=== PATIENT | female | born 1945 | race Caucasian/White ===

== ENCOUNTER 2023-10-19 19:49 | Emergency (ER) | payer MEDICARE, SELFPAY ==
[2023-10-19 19:52] VITALS: BP 124/60; PULSE 65; RESP 18; TEMP 37.1; O2SAT 97; BMI 35.2
--- NOTE | 2023-10-19 21:23 | ED_ITS ---
HPI - General Adult General Chief complaint: Extremity Injury, Lower Stated complaint: Left Leg Pain from Fall at home Time Seen by Provider: 10/19/23 20:02 Source: patient Mode of arrival: Wheelchair History of Present Illness HPI narrative: patient states she was using her walker 3/2 to go to the bathroom. Describes backing up to the commode. She sat down too soon and went directly to the floor onto her buttocks. Was able to crawl to her bed and get her self up. Once she was up she was able to walk to another room and sit in a chair. She felt well and decided to read a book. The next day she felt fine. The 3rd day AM she was sore at her left buttocks and neck across her posterior shoulders. Had discomfort getting out of the bed. No headache. Has pain left buttocks area and this increase when walking making it feel like the left leg wants to give. No paresthesia. No headache. Denies chest pain or lower back pain. Past history of surgery with hardware placement lower lumbar spine. No loss of control of bowel or bladder Related Data Home Medications Medication Instructions Recorded Confirmed acarbose 100 mg tablet 100 mg PO BID 10/19/23 10/19/23 amlodipine 10 mg tablet 10 mg PO DAILY 10/19/23 10/19/23 aspirin 81 mg capsule 81 mg PO DAILY 10/19/23 10/19/23 carvedilol 25 mg tablet 25 mg PO BID 10/19/23 10/19/23 dulaglutide 4.5 mg/0.5 mL 4.5 mg subcut .weekly 10/19/23 10/19/23 subcutaneous pen injector (Trulicity) eszopiclone 3 mg tablet 3 mg PO BEDTIME 10/19/23 10/19/23 furosemide 40 mg tablet 40 mg PO DAILY 10/19/23 10/19/23 insulin detemir U-100 100 unit/mL 60 unit subcut DAILY 10/19/23 10/19/23 (3 mL) subcutaneous pen (Levemir FlexPen) liothyronine 25 mcg tablet 25 mcg PO BID 10/19/23 10/19/23 loratadine 10 mg tablet 10 mg PO DAILY PRN allergic 10/19/23 10/19/23 symptoms losartan 100 1 tab PO DAILY 10/19/23 10/19/23 mg-hydrochlorothiazide 25 mg tablet lovastatin 20 mg tablet 20 mg PO DAILY 10/19/23 10/19/23 metformin 1,000 mg tablet 1,000 mg PO BID 10/19/23 10/19/23 omeprazole 20 mg capsule,delayed 20 mg PO DAILY 10/19/23 10/19/23 release potassium chloride 20 mEq 20 meq PO DAILY 10/19/23 10/19/23 tablet,extended release pramipexole 0.5 mg tablet 0.5 mg PO DAILY 10/19/23 10/19/23 quetiapine 50 mg tablet 50 mg PO DAILY 10/19/23 10/19/23 tramadol 50 mg tablet 50 mg PO Q6H PRN pain 10/19/23 10/19/23 Allergies Allergy/AdvReac Type Severity Reaction Status Date / Time iodine Allergy Verified 10/19/23 19:58 levofloxacin [From Levaquin] Allergy Verified 10/19/23 19:58 Review of Systems ROS Status of ROS 10 or more systems reviewed and unremark able except as noted in history and below [facility] Social History Smoking status: Never smoker Exam Constitutional Vital Signs, click to edit/add: Last Vital Signs Temp 98.7 F 10/19/23 19:52 Pulse 65 10/19/23 19:52 Resp 18 10/19/23 19:52 BP 124/60 10/19/23 19:52 Pulse Ox 97 10/19/23 19:52 O2 Del Method Room Air 10/19/23 19:52 Common normals: no apparent distress, average body habitus, oriented x3, healthy appearing, alert and well nourished [facility] Common normals: normocephalic and head/scalp atraumatic Eye Common normals: EOMs intact bilaterally and conjunctivae normal Neck & C-Spine Other: C-spine nontender mild tenderness across bilat superior trapezius Respiratory Common normals: normal respiratory effort, no retractions, no use of accessory muscles and clear to auscultation bilaterally Cardio Common normals: regular rate, regular rhythm, S1 normal heart sound and S2 normal heart sound GI Common normals: Normal to inspection, nondistended, normoactive bowel sounds present, soft to palpation and non-tender Extremity Common normals: normal to inspection and full ROM Other: left buttocks tender Neuro Common normals: oriented x3, CN's II-XII intact bilaterally, moves all extremities, no focal motor deficits and no sensory deficits noted Psych Appearance: grossly normal Course Vital Signs Vital signs: Vital Signs Temperature 98.7 F 10/19/23 19:52 Pulse Rate 65 10/19/23 19:52 Respiratory Rate 18 10/19/23 19:52 Blood Pressure 124/60 10/19/23 19:52 Pulse Oximetry 97 10/19/23 19:52 Oxygen Delivery Method Room Air 10/19/23 19:52 Temperature 98.7 F 10/19/23 19:52 Pulse Rate 65 10/19/23 19:52 Respiratory Rate 18 10/19/23 19:52 Blood Pressure 124/60 10/19/23 19:52 Pulse Oximetry 97 10/19/23 19:52 Oxygen Delivery Method Room Air 10/19/23 19:52 Medical Decision Making MDM Narrative Medical decision making narrative: patient fell 4 days ago. She missed the commode and struck the floor falling on his buttocks. No pain for a couple of days. Pain at the base of her neck and shoulders developed a couple of days ago and left buttocks pain. No weakness or paresthesia. diagnostic studies neg. Patient medicated with norflex and discharged home to follow up with her family doctor for recheck Lab Data Labs: Lab Results 10/19/23 Range/Units 21:45 WBC 12.9 H (4.0-11.0) 10^3/uL RBC 3.67 L (4.20-5.40) 10^6/uL Hgb 10.8 L (12.0-16.0) g/dL Hct 33.8 L (36.0-48.0) % MCV 92.1 (81.0-99.0) fL MCH 29.4 (26.7-34.0) pg MCHC 32.0 (29.9-35.2) g/dL RDW 13.4 (11.0-15.0) % Plt Count 264 (150-450) 10^3/uL MPV 10.4 (9.5-13.5) fL Neut % (Auto) 75.5 H (43.0-75.0) % Lymph % (Auto) 12.8 L (20.5-60.0) % Treasure % (Auto) 8.4 (1.7-12.0) % Eos % (Auto) 2.7 (0.9-7.0) % Baso % (Auto) 0.4 (0.2-2.0) % Neut # (Auto) 9.8 H (1.4-6.5) 10^3/uL Lymph # (Auto) 1.7 (1.2-3.8) 10^3/uL Treasure # (Auto) 1.1 H (0.3-0.8) 10^3/uL Eos # (Auto) 0.4 (0.0-0.7) 10^3/uL Baso # (Auto) 0.1 (0.0-0.1) 10^3/uL Abs Immat Gran (auto) 0.03 (0.00-0.03) 10^3/uL Imm/Tot Granulo (auto) 0.2 (0.0-0.5) % Sodium 138 (136-145) mmol/L Potassium 3.5 (3.5-5.1) mmol/L Chloride 101 (98-107) mmol/L Carbon Dioxide 32.0 (21.0-32.0) mmol/L Anion Gap 8.5 BUN 17.0 (7.0-18.0) mg/dL Creatinine 0.93 (0.55-1.02) mg/dL Est GFR ( Amer) >60 (>=60) Est GFR (Non-Af Amer) 58 L (>=60) BUN/Creatinine Ratio 18.3 Glucose 147 H (74-106) mg/dL Calcium 9.4 (8.5-10.1) mg/dL Imaging Data Abdominal x-ray: Radiologist's impression: ITS Impressions Cervical Spine CT 10/19/23 21:30 IMPRESSION: No acute traumatic findings of the cervical spine. Electronically authenticated by: THIAGO KAM Date: 10/19/2023 22:[address] 10/19/23 21:30 IMPRESSION: 1. No acute fracture. 2. No acute joint findings. 3. Chronic bone fragments around the knee. 4. 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 Electronically authenticated by: JUDITH BAZZI Date: 10/19/2023 23:[address] 10/19/23 21:30 IMPRESSION: No CT evidence of acute intracranial abnormality. Mild chronic microvascular ischemia and involutional changes. Vascular calcifications. Electronically authenticated by: JAYDA UNLU Date: 10/19/2023 22:[address] 10/19/23 21:30 IMPRESSION: 1. No acute pelvic abnormalities. 2. No acute left hip abnormalities. Electronically authenticated by: BERTHA COLIN Date: 10/19/2023 22:[address] 10/19/23 21:30 IMPRESSION: 1. No acute pelvic abnormalities. 2. No acute left hip abnormalities. Electronically authenticated by: BERTHA COLIN Date: 10/19/2023 22:47 Discharge Plan Discharge Chief Complaint: Extremity Injury, Lower Clinical Impression: Contusion of left buttock, Cervical myofascial strain Patient Disposition: Home, Self-Care Prescriptions / Home Meds: No Action acarbose 100 mg tablet 100 mg PO BID amlodipine 10 mg tablet 10 mg PO DAILY carvedilol 25 mg tablet 25 mg PO BID Trulicity 4.5 mg/0.5 mL pen injector 4.5 mg SUBCUT .weekly eszopiclone 3 mg tablet 3 mg PO BEDTIME furosemide 40 mg tablet 40 mg PO DAILY liothyronine 25 mcg tablet 25 mcg PO BID loratadine 10 mg tablet 10 mg PO DAILY PRN (Reason: allergic symptoms) losartan-hydrochlorothiazide 100-25 mg tablet 1 tab PO DAILY lovastatin 20 mg tablet 20 mg PO DAILY metformin 1,000 mg tablet 1,000 mg PO BID omeprazole 20 mg capsule,delayed release(DR/EC) 20 mg PO DAILY potassium chloride 20 mEq tablet extended release 20 meq PO DAILY pramipexole 0.5 mg tablet 0.5 mg PO DAILY quetiapine 50 mg tablet 50 mg PO DAILY tramadol 50 mg tablet 50 mg PO Q6H PRN (Reason: pain) aspirin 81 mg capsule 81 mg PO DAILY Levemir FlexPen 100 unit/mL (3 mL) insulin pen 60 unit subcut DAILY Instructions: Cervical Strain (ED), Contusion in Adults (ED) Additional Instructions: follow up with family doctor in 2-3 days Referrals: BELEN ZALDIVAR [Primary Care Provider] - 1 week Stand Alone Forms: Portal Instructions
--- NOTE | 2023-10-19 21:30 | CT_ITS ---
The [address] [address] Patient Name: KONRAD GUZMAN MRN: [id number] date: 1945 Sex: F Assigned Patient Location: ER Current Patient Location: ER Accession/Order Number: [id number] Exam Date: 10/19/2023 22:21 Report Date: 10/19/2023 23:33 At the request of: ALINA SESAY Procedure: CT femur LT wo con EXAM: CT femur LT wo con HISTORY: Fall with left hip pain. COMPARISON: Left tib-fib x-ray 10/20/2020; CT pelvis 01/06/2022. TECHNIQUE: Contiguous thin section axial scans obtained from the lower right iliac bone above the left hip joint throughout the left hip joint, left femur and knee joints to the proximal tib-fib metadiaphyseal region. This CT exam was performed using one or more of the following dose reduction techniques: Automated exposure control, adjustment of the mA and/or kV according to patient size, or use of iterative reconstruction technique. Thin section coronal and sagittal images were reconstructed from the axial data set. All images were reviewed and interpreted. FINDINGS: No acute fractures are seen along the course of the left femur from hip to knee. No lytic or blastic lesion. Normal bone mineralization. There is some minor age-related left hip joint degenerative narrowing. There appears to be a high riding patella (patella darien). There is associated asymmetric moderate to severe lateral patellofemoral joint narrowing and widening of the medial patellofemoral compartment. No elizabeth dislocation. The medial compartment and lateral compartments are otherwise maintained. There are several chronic corticated bone fragments in the soft tissues superficial to the lateral patellofemoral ligament and anterior lateral soft tissues the left knee. Small punctate 2 mm chronic bone fragment superficial to the medial patellar body and superficial to the medial patellofemoral ligament origin as well. These are chronic. Suspect from old trauma. No destructive bone process. Muscles and soft tissues external to the joints along the course of the left femur are otherwise normal. CT/CT femur LT wo con IMPRESSION: 1. No acute fracture. 2. No acute joint findings. 3. Chronic bone fragments around the knee. 4. 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 Electronically authenticated by: JUDITH BAZZI Date: 10/19/2023 23:33
--- NOTE | 2023-10-19 21:30 | CT_ITS ---
The [address] [address] Patient Name: KONRAD GUZMAN MRN: [facility]:[id number] date: 1945 Sex: F Assigned Patient Location: ER Current Patient Location: ER Accession/Order Number: [id number] Exam Date: 10/19/2023 22:07 Report Date: 10/19/2023 22:25 At the request of: ALINA SESAY Procedure: CT head/brain wo con EXAM: CT head/brain wo con HISTORY: fall COMPARISON: None. TECHNIQUE: Axial CT scans through the head were obtained without IV contrast administration. Dose reduction techniques were achieved by using: automated exposure control and/or adjustment of mA and /or kV according to patient size and/or use of iterative reconstruction technique. FINDINGS: There is no evidence of acute intracranial hemorrhage or abnormal extra-axial fluid collection. No mass effect or midline shift is seen. There is no evidence of large acute territorial infarction. There is no hydrocephalus. Mild enlarged cortical sulci, consistent with age appropriate cerebral atrophy. Patchy areas of low-attenuation are present in supratentorial white matter, likely represents chronic microvascular ischemia. To the limit of CT, the posterior fossa appears unremarkable. There are atherosclerotic calcifications of anterior and posterior circulations. No definite acute fracture is identified. No discrete soft tissue abnormality seen. The visualized orbits show no abnormality. The visualized paranasal sinuses show no air-fluid level. Mastoid air cells are clear. CT/CT head/brain wo con IMPRESSION: No CT evidence of acute intracranial abnormality. Mild chronic microvascular ischemia and involutional changes. Vascular calcifications. Electronically authenticated by: JAYDA GARCIAU Date: 10/19/2023 22:25
--- NOTE | 2023-10-19 21:30 | CT_ITS ---
The [address] [address] Patient Name: KONRAD GUZMAN MRN: [id number] date: 1945 Sex: F Assigned Patient Location: ER Current Patient Location: ER Accession/Order Number: [id number] Exam Date: 10/19/2023 22:11 Report Date: 10/19/2023 22:47 At the request of: ALINA SESAY Procedure: CT pelvis wo con EXAM: CT scan of the pelvis without contrast. CT scan of the left hip without contrast. Dose reduction technique used: Automated exposure control and/or adjustment of the mA and/or kV according to patient size and/or use of iterative reconstruction technique. REASON FOR EXAM: fall COMPARISON: CT scan dated 01/06/2022 FINDINGS: PELVIS: No pelvic fractures, subluxations or dislocations. No pelvic hematoma. No free fluid in the pelvis. Prominent bilateral sacroiliac joint degenerative change. Pubic symphysis degenerative change. Hysterectomy. Partially visualized lumbar spinal fusion hardware. LEFT HIP: No fractures, subluxations or dislocations. Mild to moderate left hip degenerative change. Remainder unremarkable. CT/CT pelvis wo con IMPRESSION: 1. No acute pelvic abnormalities. 2. No acute left hip abnormalities. Electronically authenticated by: BERTHA COLIN Date: 10/19/2023 22:47
--- NOTE | 2023-10-19 21:30 | CT_ITS ---
[address] [address] Patient Name: KONRAD GUZMAN MRN: [id number] date: 1945 Sex: F Assigned Patient Location: ER Current Patient Location: ER Accession/Order Number: [id number] Exam Date: 10/19/2023 22:18 Report Date: 10/19/2023 22:47 At the request of: ALINA SESAY Procedure: CT hip LT wo con EXAM: CT scan of the pelvis without contrast. CT scan of the left hip without contrast. Dose reduction technique used: Automated exposure control and/or adjustment of the mA and/or kV according to patient size and/or use of iterative reconstruction technique. REASON FOR EXAM: fall COMPARISON: CT scan dated 01/06/2022 FINDINGS: PELVIS: No pelvic fractures, subluxations or dislocations. No pelvic hematoma. No free fluid in the pelvis. Prominent bilateral sacroiliac joint degenerative change. Pubic symphysis degenerative change. Hysterectomy. Partially visualized lumbar spinal fusion hardware. LEFT HIP: No fractures, subluxations or dislocations. Mild to moderate left hip degenerative change. Remainder unremarkable. CT/CT hip LT wo con IMPRESSION: 1. No acute pelvic abnormalities. 2. No acute left hip abnormalities. Electronically authenticated by: BERTHA COLIN Date: 10/19/2023 22:47
--- NOTE | 2023-10-19 21:30 | CT_ITS ---
The [address] [address] Patient Name: KONRAD GUZMAN MRN: [id number] date: 1945 Sex: F Assigned Patient Location: ER Current Patient Location: ER Accession/Order Number: [id number] Exam Date: 10/19/2023 22:11 Report Date: 10/19/2023 22:27 At the request of: ALINA SESAY Procedure: CT cervical spine wo con EXAM: CT cervical spine wo con HISTORY: fall COMPARISON: None. TECHNIQUE: CT cervical spine without contrast. Multiplanar reformats obtained. The current study utilizes one or more of the following dose-reduction techniques: automated exposure control, iterative reconstruction, and/or manual adjustment of tube current and voltage for size. FINDINGS: Age expected degenerative changes. Bones are demineralized. No evidence of acute fracture or traumatic malalignment. No prevertebral edema. Spinal canal is grossly patent. Neural foramen grossly patent. CT/CT cervical spine wo con IMPRESSION: No acute traumatic findings of the cervical spine. Electronically authenticated by: THIAGO KAM Date: 10/19/2023 22:27
[2023-10-19 21:56] LABS: Basophils Absolute Auto 0.1 10^3/uL (0.0-0.1); Basophils Percent Auto 0.4 % (0.2-2.0); Eosinophils Absolute Auto 0.4 10^3/uL (0.0-0.7); Eosinophils Percent Auto 2.7 % (0.9-7.0); Hematocrit 33.8 % (36.0-48.0); Hemoglobin 10.8 g/dL (12.0-16.0); Immature Granulocytes Abs Auto 0.03 10^3/uL (0.00-0.03); Immature Granulocytes Pct Auto 0.2 % (0.0-0.5); Lymphocytes Absolute Auto 1.7 10^3/uL (1.2-3.8); Lymphocytes Percent Auto 12.8 % (20.5-60.0); Mean Corpuscular Hemoglobin 29.4 pg (26.7-34.0); Mean Corpuscular Volume 92.1 fL (81.0-99.0); Mean Platelet Volume 10.4 fL (9.5-13.5); Monocytes Absolute Auto 1.1 10^3/uL (0.3-0.8); Monocytes Percent Auto 8.4 % (1.7-12.0); Neutrophils Absolute Auto 9.8 10^3/uL (1.4-6.5); Neutrophils Percent Auto 75.5 % (43.0-75.0); Platelet Count 264 10^3/uL (150-450); Red Blood Count 3.67 10^6/uL (4.20-5.40); Red Cell Distribution Width 13.4 % (11.0-15.0); White Blood Count 12.9 10^3/uL (4.0-11.0)
[2023-10-19 22:08] LABS: Anion Gap 8.5; BUN Creatinine Ratio 18.3; Calcium 9.4 mg/dL (8.5-10.1); Chloride 101 mmol/L (98-107); Estimated GFR (African America >60 (>=60); Estimated GFR (Non-African Ame 58 (>=60); Glucose 147 mg/dL (74-106); Potassium 3.5 mmol/L (3.5-5.1); Sodium 138 mmol/L (136-145)
[2023-10-20] MEDS: ORPHENADRINE CITRATE 100 MG TABLET.ER PO (00:25)
== END 2023-10-20 00:33 | disposition home or self-care (01) ==
PROVIDERS: Emergency Provider Internal Medicine; PCP Internal Medicine
DX: S30.0XXA Contusion of lower back and pelvis, initial encounter (principal); S16.1XXA Strain of muscle, fascia and tendon at neck level, initial encounter; W18.39XA Other fall on same level, initial encounter; Z79.82 Long term (current) use of aspirin; Z79.4 Long term (current) use of insulin; Z79.84 Long term (current) use of oral hypoglycemic drugs; Z79.899 Other long term (current) drug therapy; Z79.85 Long-term (current) use of injectable non-insulin antidiabetic drugs
CPT/HCPCS: 36415; 70450; 72125; 72192; 73700; 80048; 85025; 99284

== ENCOUNTER 2024-05-10 12:24 | Outpatient (OUT) | payer MEDICARE, SELFPAY ==
--- OUTSIDE RECORDS SUMMARY | 2024-05-10 12:38 | XMS_ITS | CCD ---
Author Organization [facility] Care Team Providers Care Ring Conductor Name Role Phone Olamide Ching Unavailable MD Abdullahi Acosta Attending Provider MONI Bowers Primary Care Provider [phone] Abdullahi Acosta Unavailable NADIYA GILLESPIE Consulting Unavailable VERNA, NADIYA Attending Unavailable BOWERS, DR GLOVER Primary Care Unavailable VERNA, NADIYA Admitting Unavailable BOWERS, DR GLOVER Primary Care Unavailable GARCIA ., DR SERENITY Barahona Consulting Unavailable GARCIA ., DR SERENITY Barahona Attending Unavailable GARCIA ., DR SERENITY Barahona Admitting Unavailable MISC, DR MURDOCK Admitting Unavailable MISC, DR MURDOCK Consulting Unavailable BOWERS, DR GLOVER Primary Care Unavailable MISC, DR MURDOCK Attending Unavailable VERNA, NADIYA Attending Unavailable VERNA, NADIYA Consulting Unavailable BOWERS, DR GLOVER Primary Care Unavailable VERNA, NADIYA Admitting Unavailable BOWERS, DR GLOVER Primary Care Unavailable BOWERS, DR GLOVER Consulting Unavailable BOWERS, DR GLOVER Attending Unavailable BOWERS, DR GLOVER Admitting Unavailable ZIEBER, DR JOE Car Consulting Unavailable ALGHOTHANI, MOHAMAD Admitting Unavailable ALGHOTHANI, MOHAMAD Attending Unavailable BOWERS, DR GLOVER Primary Care Unavailable ALGHOTHANI, MOHAMAD Admitting Unavailable ALGHOTHANI, MOHAMAD Consulting Unavailable KAYLEY, DR GLOVER Primary Care Unavailable ALGHOTHANI, MOHAMAD Attending Unavailable BETZAIDA GUY Attending Unavailable MESHA .BETZAIDA Admitting Unavailable KAYLEY, DR GLOVER Primary Care Unavailable LAKSHMIPATHY ., NARENDRANATH Admitting Rain vailable LAKSHMIPATHY ., DAVID Attending Rain vailable KAYLEY, DR GLOVER Primary Care Unavailable GARCIA ., DR SERENITY Barahona Attending Unavailable GARCIA ., DR SERENITY Barahona Admitting Unavailable BOWERS, DR GLOVER Primary Care Unavailable ZIMMER ., BETZAIDA Consulting Unavailable ZIMMER ., BETZAIDA Consulting Unavailable GARCIA ., DR SERENITY Barahona Attending Unavailable GARCIA ., DR SERENITY Barahona Admitting Unavailable BOWERS, DR GLOVER Primary Care Unavailable GARCIA ., DR SERENITY Barahona Attending Unavailable GARCIA ., DR SERENITY Barahona Admitting Unavailable BOWERS, DR GLOVER Primary Care Unavailable ZIMMER ., BETZAIDA Consulting Unavailable GARCIA ., DR SERENITY Barahona Attending Unavailable GARCIA ., DR SERENITY Barahona Admitting Unavailable BOWERS, DR GLOVER Primary Care Unavailable ZIMMER ., BETZAIDA Consulting Unavailable GARCIA ., DR SERENITY Barahona Attending Unavailable GARCIA ., DR SERENITY Barahona Consulting Unavailable GARCIA ., DR SERENITY Barahona Admitting Unavailable BOWERS, DR GLOVER Primary Care Unavailable USHA LOZA Consulting Unavailable JOE BERKOWITZ Unavailable YAZ, DR JOE Car Consulting Unavailable SHUBHAM STEVE Admitting Unavailable BOWERS, DR GLOVER Primary Care Unavailable SHUBHAM STEVE Attending Unavailable SHUBHAM STEVE Consulting Unavailable JOSE, DR ESTES Admitting Unavailable NADIYA GILLESPIE Consulting Unavailable BOWERS, DR GLOVER Primary Care Unavailable JOSE, DR ESTES Attending Unavailable BOWERS, DR GLOVER Consulting Unavailable GARCIA ., DR SERENITY Barahona Attending Unavailable GARCIA ., DR SERENITY Barahona Admitting Unavailable BOWERS, DR GLOVER Primary Care Unavailable ZIEBER, DR JOE Car Consulting Unavailable GARCIA ., DR SERENITY Barahona Consulting Unavailable KAYLEY, DR GLOVER Primary Care Unavailable GARCIA ., DR SERENITY Barahona Attending Unavailable GARCIA ., DR SERENITY Barahona Admitting Unavailable LIZA, DR PATITO Vega Consulting Unavailable GARCIA ., DR SERENITY Barahona Consulting Unavailable URI CARLSON Attending Unavailable VERNA, NADIYA Attending Unavailable VERNA, NADIYA Attending Unavailable ERIKA DEL TORO Attending Unavailable ERIKA DEL TORO Attending Unavailable MONI Bowers Primary Care Provider MD Abdullahi Acosta Attending Provider Abdullahi Acosta Attending Unavailable Abdullahi Acosta Admtony Unavailable Kofi Bowers Primary Care Unavailable Kofi Bowers MD Primary Care Provider KOFI BOWERS Primary Care Unavailable SHUBHAM GANN Attending Unavailable KOFI BOWERS Attending Unavailable GHAZAL GRIFFIN Attending Unavailable KOFI BOWERS Referring Unavailable KEN GALEANA Attending Unavailable KOFI BOWERS Referring Unavailable TEENA CHRISTENSENH Attending Unavailable KOFI BOWERS Referring Unavailable TATTERSGURU, KEN Attending Unavailable KOFI BOWERS Referring Unavailable TATTERSGURU, KEN Attending Unavailable KOFI BOWERS B Referring Unavailable TATTERSGURU, KEN Attending Unavailable KOFI BOWERS B Referring Unavailable TATTERSGURU, KEN Attending Unavailable KAYLEY KOFI B Referring Unavailable TATTERSGURU, KEN Attending Unavailable KAYLEY KOFI B Referring Unavailable ABEL GOODE Attending Unavailable ABEL GOODE Attending Unavailable KOFI BOWERS B Attending Unavailable Allergies Allergy Classification Reported Allergen(s) Allergy Type Date of Onset Reaction(s) Facility (3 sources) Gemfibrozil Drug Allergy muscle atrophy [facility] Other (6 sources) Iodine; Translations: [IODINE] Drug Allergy 11-24-19 19 anaphylaxis, Shortness of breath [facility] Repository (5 sources) levoFLOXacin; Translations: [Levaquin] Drug Allergy 11-17-19 16 tendonopathy [facility] Repository (6 sources) levoFLOXacin; Translations: [LEVOFLOXACIN] Drug Allergy 06-15-20 18 Other [facility] (1 source) Iodine and Iodide Containing Produc Allergy to substance 06-13-20 18 Unknown Reaction [facility] (2 sources) hydrALAZINE Drug Allergy 11-18-19 16 [facility] Repository (1 source) Iodine Drug Allergy 07-31-20 15 [facility] Repository (2 sources) pregabalin; Translations: [PREGABALIN] Drug Allergy 02-25-20 21 Dizziness [facility] Repository (1 source) SHELLFISH CONTAINING PRODUCTS; Translations: [SHELLFISH CONTAINING PRODUCTS] Propensity to adverse reactions to drug (disorder) 01-25-20 14 [facility] Repository (2 sources) Iodinated Contrast Media; Translations: [Iodinated Contrast Media] Allergy to substance 08-19-19 23 Unknown Reaction [facility] (1 source) Gemfibrozil Drug Allergy 06-27-20 23 [facility] Repository (1 source) Iodine Drug Allergy 06-27-20 23 [facility] Repository (1 source) Shellfish Allergy to substance 01-25-20 14 Swelling [facility] Work Phone: Medications Current Medications Medication Drug Class(es) Dates Sig (Normalized) Sig (Original) acarbose 100 mg oral tablet (6 sources) alpha-Glucosidas e Inhibitor Start: 02-02-2023 take 1 tablet by mouth in the morning acarbose (Precose) 100 MG tablet Indications: 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 200 tablet 3 02/02/2023 Active Start: 06-13-2018 take 1 tablet by javi th twice daily Acarbose Active 1 TAB PO Twice daily June 12, 2018 11:00pm acetaminophen 500 mg oral ta blet (4 sources) acetaminophen (T ylenol) 500 MG tablet every 6 (six) hours. 0 Active Tylenol Active albuterol 0.83 mg/ml inhalation solution (3 sources) beta2-Adrenergic Agonist Albuter ol Sulfate (2.5 MG/3ML) 0.083% 1 unit dose Inhalation four times a day DX J44.9 COPD Active amitriptyline hydrochloride 25 mg oral tablet (2 sources) Tricyclic Antidepressant Start: 06-28-2022 take 1 tablet by mouth every twenty-four hours Amitriptyline HCl 25 MG 1 tablet at bedtime Orally Once a day for 30 day(s) Jun, Active amLODIPine 10 mg oral tablet (6 sources) Dihydropyridine Calcium Channel Theodora Start: 07-20-2023 take 1 tablet by mouth in the morning amLODIPine (Norvasc) 10 MG tablet Indications: Benign essential hypertension (CMS/HCC) Take 1 tablet (10 mg) by mouth in the morning. 100 tablet 3 07/20/2023 Active Start: 06-13-2018 take 1 tablet by javi th once daily Amlodipine Active 1 TAB PO Daily June 12, 2018 11:00pm ascorbic acid 100 mg/ml oral solution (1 source) Vitamin C Ascorbic Acid (Vitamin C) 500 MG/5ML liquid 1 capsule 1 (one) time each day at the same time. 0 Active aspirin 81 mg delayed release oral tablet (4 sources) Platelet Aggregation Inhibitor, Nonsteroidal Anti-inflammatory Drug Start: 2018 aspirin 81 MG EC tablet 1 (one) time each day at the same time. 0 2018 Active Baby Aspirin Act yair biotin 5 mg sublingual tablet (2 sources) Start: 06-13-2018 take 1 capsule under the tongue once daily Biotin Active 1 CAP SUBLINGUAL Daily June 12, 2018 11:00pm calcium citrate 250 mg / cholecalciferol 100 unt oral tablet (1 source) Vitamin D take 1 tablet by mouth once in the morning, then take 1 tablet by mouth once in the evening Calcium Citrate-Vitamin D (Vishnu-Citrate Plus Vitamin D) 250-2.5 MG-MCG tablet Take 1 tablet by mouth in the morning and 1 tablet in the evening. 0 Active Calcium Citrate Plus (3 sources) Calcium Citrate Plus as directed Orally bid Active carvedilol 25 mg oral tablet (1 source) alpha-Adrenergic Theodora, beta-Adrenergic Theodora Start: 02-22-2023 take 1 tablet by mouth in the morning carvedilol (Coreg) 25 MG tablet Indications: Benign essential hypertension (CMS/HCC) Take 1 tablet (25 mg) by mouth in the morning and 1 tablet (25 mg) in the evening. Take with meals. 180 tablet 3 02/22/2023 Active cetirizine hydrochloride 10 mg oral tablet (1 source) Histamine-1 Receptor Antagonist cetirizine (ZyrTEC) 10 MG tablet 1 (one) time each day at the same time. 0 Active cholecalciferol 1.25 mg oral tablet (1 source) Vitamin D cholecalciferol (Vitamin D-3) 1.25 MG (37391 UT) tablet Vitamin D3 5000IU 0 Active cloNIDine hydrochloride 0.1 mg oral tablet (2 sources) Central alpha-2 Adrenergic Agonist Start: 06-13-2018 take 1 tablet by mouth twice daily Clonidine Hcl Active 1 TAB PO Twice daily June 12, 2018 11:00pm 0.5 ml dulaglutide 3 mg/ml auto-injector (3 sources) GLP-1 Receptor Agonist Trulicity 1.5 MG/0.5ML as directed Subcutaneous As Directed Active DULoxetine 60 mg delayed release oral capsule (5 sources) Serotonin and Norepinephrine Reuptake Inhibitor Start: 06-13-2018 Duloxetine Active June 12, 2018 11:00pm furosemide 40 mg oral tablet (6 sources) Loop Diuretic Start: 06-13-2018 take 1 tablet by mouth in the morning furosemide (Lasix) 40 MG tablet Indications: Benign essential hypertension (CMS/HCC) Take 1 tablet (40 mg) by mouth in the morning. 100 tablet 3 02/02/2023 Active hydrALAZINE hydrochloride 50 mg oral tablet (1 source) Arteriolar Vasodilator hydrALAZINE (Apresoline) 50 MG tablet every 12 (twelve) hours. 0 Active hydroCHLOROthiazide 25 mg / losartan potassium 100 mg oral tablet (1 source) Thiazide Diuretic, Angiotensin 2 Receptor Theodora Start: 04-26-2023 take 1 tablet by mouth once daily losartan-hydroCHLO ROthiazide (Hyzaar) 100-25 MG tablet Indications: Hypertension, unspecified type (CMS/HCC) Take 1 tablet by mouth 1 (one) time each day at the same time. 100 tablet 2 04/26/2023 Active 3 ml insulin detemir 100 unt/ml pen injector (3 sources) Insulin Analog Start: 06-13-2018 Insulin Detemir U-100 Active 0 .ROUTE .COMPLEX June 12, 2018 11:00pm as directed insulin detemir (Levemir FlexTouch) 100 UNIT/ML pen INJECT 60 UNITS SUBCUTANEOUSLY EACH MORNING for 25 0 Active liothyronine sodium 0.025 mg oral tablet (6 sources) l-Triiodothyronine Start: 04-26-2023 take 0.5 tablet by mouth twice daily liothyronine (Cytomel) 25 MCG tablet Indications: Hypothyroidism, unspecified type (CMS/HCC) 0.5 tablet on an empty stomach Orally two times daily. D.A.W. as Sigma or Finsphere Brand ONLY for 90 days 200 tablet 3 04/26/2023 Active Start: 06-13-2018 take 0.5 tablet by m outh once daily Liothyronine Active 0.5 TAB PO Daily June 12, 2018 11:00pm Liothyronine Sod ium 25 MCG as directed Orally bid Active loratadine 10 mg oral tablet (6 sources) Start: 03-11-2023 End: 03-10-2024 take 1 tablet by mouth in the morning loratadine (Claritin) 10 MG tablet Indications: Allergy, initial encounter Take 1 tablet (10 mg) by mouth in the morning. 30 tablet 11 03/11/2023 03/10/2024 Active Start: 06-13-2018 take 1 tablet by javi th once daily Loratadine Active 1 TAB PO Daily June 12, 2018 11:00pm take 1 tablet by javi th once daily Loratadine 10 MG 1 tablet on the tongue and allow to dissolve Orally Once a day for 30 day(s) Active losartan potassium 100 mg oral tablet (5 sources) Angiotensin 2 Receptor Theodora Start: 06-13-2018 take 1 tablet by mouth once daily Losartan Active 1 TAB PO Daily June 12, 2018 11:00pm lovastatin 20 mg oral tablet (6 sources) HMG-CoA Reductase Inhibitor Start: 09-21-2023 take 1 tablet by mouth once daily lovastatin (Mevacor) 20 MG tablet Indications: Congenital renal artery anomaly TAKE 1 TABLET BY MOUTH ONCE DAILY 30 tablet 10 09/21/2023 Active Start: 06-13-2018 take 1 tablet by javi once daily Lovastatin Active 1 TAB PO Daily June 12, 2018 11:00pm melatonin 5 mg oral capsule (5 sources) Start: 06-13-2018 Melatonin Acti ve June 12, 2018 11:00pm Melatonin 5 MG O rally qhs Active metFORMIN hydrochloride 1000 mg oral tablet (6 sources) Biguanide Start: 06-13-2018 take 1 tablet by mouth in the morning metFORMIN (Glucophage) 1000 MG tablet Indications: 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 Take with meals. 200 tablet 3 02/02/2023 Active 24 hr metoprolol succinate 50 mg extended release oral tablet (8 sources) beta-Adrenergic Theodora Start: 06-13-2018 take 1 tablet by mouth twice daily Metoprolol Succinate Active 1 TAB PO Twice daily June 12, 2018 11:00pm take 2 tablets by [facility] every twenty-four hours Toprol XL 50 MG 2 tablet Orally Once a day Active Metoprolol Succi florencio Active take 2 tablets by [facility] every twenty-four hours Multivitamin preparation (3 sources) Multivitamin Act yair naproxen 500 mg oral tablet (1 source) Nonsteroidal Anti-inflammatory Drug naproxen (Naprosy n) 500 MG tablet every 12 (twelve) hours. 0 Active omeprazole 20 mg delayed release oral capsule (6 sources) Proton Pump Inhibitor Start: 023 take 1 capsule by mouth in the morning omeprazole (PriLOSEC) [address] capsule Indications: Gastroesophageal reflux disease without esophagitis Take 1 capsule (20 mg) by mouth in the morning. 100 capsule 3 02/02/2023 Active Start: 06-13-2018 take 1 tablet by javi th once daily Omeprazole Active 1 TAB PO Daily June 12, 2018 11:00pm take 1 capsule by mo [facility] once daily PriLOSEC 20 MG 1 capsule Orally Once a day for 30 day(s) Active take 1 capsule by [facility] every twenty-four hours microencapsulated potassium chloride 20 meq extended release oral tablet (6 sources) Start: 06-13-2018 Potassium Chloride Active 1 PACKET PO Daily June 12, 2018 11:00pm pramipexole dihydrochloride 0.75 mg oral tablet (1 source) Nonergot Dopamine Agonist Start: 07-20-2023 take 1 tablet by mouth in the morning pramipexole (Mirapex) 0.75 MG tablet Indications: Chronic pain syndrome Take 1 tablet (0.75 mg) by mouth in the morning. 30 tablet 2 07/20/2023 Active pregabalin 100 mg oral capsule (5 sources) Start: 06-13-2018 take 1 tablet by mouth twice daily Pregabalin Active 1 TAB PO Twice daily June 12, 2018 11:00pm QUEtiapine 50 mg oral tablet (8 sources) Atypical Antipsychotic Start: 06-13-2018 take 1 tablet by mouth at bedtime Quetiapine Active 1 TAB PO Bedtime June 12, 2018 11:00pm traMADol hydrochloride 50 mg oral tablet (7 sources) Opioid Agonist Start: 09-29-2023 take 1 tablet by mouth every six hours for pain traMADol (Ultram) 50 MG tablet Indications: Failed back syndrome Take 1 tablet (50 mg) by mouth every 6 (six) hours if needed for severe pain 120 tablet 0 09/29/2023 Active Start: 08-29-2023 End: 09-29-2023 take 1 tablet by mouth every six hours for pain traMADol (Ultram) 50 MG tablet Indications: Failed back syndrome Take 1 tablet (50 mg) by mouth every 6 (six) hours if needed for severe pain 120 tablet 0 08/29/2023 09/29/2023 Discontinued (Reorder) Start: 06-13-2018 take 1 tablet by javi th every six hours Tramadol Active 1 TAB PO Q6H June 12, 2018 11:00pm take 1 tablet by javi th every twenty-four hours traMADol HCl 50 MG 1 tablet as needed Orally Once a day Active Trulicity 4.5 MG/0.5ML solut ion pen-injector (1 source) Start: 08-23-2023 Trulicity 4.5 MG/0.5ML solution pen-injector Indications: 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 0 Active Vitamin E 400 UNIT (3 sources) take 1 capsule by mo [facility] once daily Vitamin E 400 UNIT 1 capsule Orally Once a day Active zolpidem tartrate 6.25 mg extended release oral tablet (1 source) gamma-Aminobutyric Acid-ergic Agonist Start: 08-04-2023 zolpidem CR (Ambien CR) 6.25 MG ER tablet Indications: Primary insomnia Take 1 tablet (6.25 mg) by mouth as needed at bedtime for sleep Do not crush, chew, or split. 30 tablet 2 08/04/2023 Active Completed/Discontinued Medications Medication Drug Class(es) Dates Sig (Normalized) Sig (Original) cefTRIAXone (4 sources) Cephalosporin Antibacterial Start: 02-21-2019 Rocephin 500 mg Feb, 1000 mg Start: 07-18-2014 Rocephin 500 m g Jul, 1 grm Problems Active Problems Problem Classification Problem Date Documented Da te Episodic/Chronic Cardiac and circulatory congenital anomalies (1 source) Congenital anomaly of renal blood vessel; 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] Onset: 11-25-2015 12-14-2022 Chronic Diabetes mellitus with complications (4 sources) Disorder of nervous system due to type 2 diabetes mellitus; Translations: [Type 2 diabetes mellitus with other diabetic neurological complication] Onset: 08-15-2014 12-14-2022 Chronic Diabetes mellitus without complication (2 sources) Type 2 diabetes mellitus without complications; Translations: [Diabetes mellitus] Onset: 01-24-2014 03-11-2023 Chronic Disorders of lipid metabolism (2 sources) Hyperlipidemia, unspecified; Translations: [Mixed hyperlipidemia] Onset: 01-07-2022 12-14-2022 Chronic Esophageal disorders (2 sources) Gastro-esophageal reflux disease without esophagitis; Translations: [Gastroesophageal reflux disease] Onset: 01-07-2022 12-14-2022 Chronic Essential hypertension (8 sources) Essential (primary) hypertension; Translations: [Benign essential hypertension] Onset: 01-07-2022 Chronic Malaise and fatigue (1 source) Fatigue; Translations: [Chronic fatigue, unspecified] Onset: 12-14-2022 12-14-2022 Chronic Menopausal disorders (5 sources) Other primary ovarian failure; Translations: [Decreased estrogen level] Onset: 01-04-2022 Chronic Miscellaneous mental health disorders (4 sources) Chronic insomnia; Translations: [Psychophysiologic insomnia] Chronic Other diseases of veins and lymphatics (1 source) Venous hypertension of lower limb; Translations: [Chronic venous hypertension (idiopathic) without complications of unspecified lower extremity] Onset: 12-21-2022 12-21-2022 Chronic Other eye disorders (1 source) Bilateral vitreous floaters; Translations: [Other vitreous opacities, bilateral] Onset: 12-14-2022 12-14-2022 Chronic Other hereditary and degenerative nervous system conditions (1 source) Restless legs syndrome; Translations: [RESTLESS LEGS SYNDROME] Onset: 11-06-2021 Chronic Other lower respiratory disease (3 sources) Disorder of lung; Translations: [Other disorders of lung] Episodic Other nervous system disorders (1 source) Polyneuropathy, unspecified; Translations: [POLYNEUROPATHY UNSPECIFIED] Onset: 04-14-2022 Chronic Other nervous system disorders (1 source) Chronic pain syndrome; Translations: [Chronic pain syndrome] Onset: 12-14-2022 12-14-2022 Chronic Other nervous system disorders (1 source) Difficulty walking; Translations: [Difficulty in walking, not elsewhere classified] Onset: 12-14-2022 12-14-2022 Chronic Other nervous system disorders (1 source) Polyneuropathy; Translations: [Polyneuropathy, unspecified] Onset: 01-24-2014 03-11-2023 Chronic Other nutritional; endocrine; and metabolic disorders (6 sources) Obese class II; Translations: [Body mass index (BMI) 35.0-35.9, adult] Chronic Other nutritional; endocrine; and metabolic disorders (1 source) Body mass index (BMI) 35.0-35.9, adult Onset: 07-02-2021 Resolved: 07-02-2021 Chronic Other nutritional; endocrine; and metabolic disorders (1 source) Body mass index 30+ - obesity; Translations: [Obesity, unspecified] Onset: 04-21-2020 03-11-2023 Chronic Other nutritional; endocrine; and metabolic disorders (1 source) Lipoprotein deficiency disorder; Translations: [Lipoprotein deficiency] Onset: 05-01-2018 03-11-2023 Chronic Other upper respiratory disease (1 source) Allergic rhinitis; Translations: [Other allergic rhinitis] Onset: 12-14-2022 12-14-2022 Chronic Peripheral and visceral atherosclerosis (1 source) Peripheral vascular disease; Translations: [Peripheral vascular disease, unspecified] Onset: 12-14-2022 12-14-2022 Chronic Residual codes; unclassified (4 sources) Obstructive sleep apnea syndrome; Translations: [Obstructive sleep apnea (adult) (pediatric)] Onset: 04-11-2019 03-11-2023 Chronic Residual codes; unclassified (5 sources) Obstructive sleep apnea (adult) (pediatric); Translations: [Obstructive sleep apnea (adult) (pediatric)] Onset: 07-02-2021 Resolved: 07-02-2021 Chronic Residual codes; unclassified (1 source) Obstructive sleep apnea (adult)(pediatric); Translations: [Obstructive sleep apnea (adult) (pediatric)] Onset: 06-27-2023 Chronic Residual codes; unclassified (1 source) 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 airway pressure ventilation; Translations: [Dependence on other enabling machines and devices] Onset: 12-14-2022 12-14-2022 Chronic Residual codes; unclassified (1 source) Initial insomnia; Translations: [Other insomnia] Onset: 12-14-2022 12-14-2022 Chronic Spondylosis; intervertebral disc disorders; other back problems (12 sources) Spondylosis without myelopathy or radiculopathy, lumbar region; Translations: [Other intervertebral disc degeneration, lumbar region] Onset: 11-03-2021 Chronic Spondylosis; intervertebral disc disorders; other back problems (15 sources) Spinal stenosis, lumbar region without neurogenic claudication; Translations: [Radiculopathy, lumbar region] Onset: 11-06-2021 Episodic Superficial injury; contusion (6 sources) Contusion of lower back and pelvis, initial encounter; Translations: [Injury of conjunctiva and corneal abrasion without foreign body, right eye, initial encounter] Onset: 01-06-2022 Episodic Unclassified (3 sources) LOW BACK PAIN, UNSPECIFIED; Translations: [LOW BACK PAIN, UNSPECIFIED] Onset: 11-04-2021 Unclassified (2 sources) Medication Problem; Translations: [Medication Problem] Onset: 01-03-2023 Unclassified (1 source) Eye Pain Onset: 03-18-2024 Unclassified (1 source) right eye issue Onset: 03-18-2024 Past or Other Problems Problem Classification Problem Date Documented Date Episodic/Chronic Blindness and vision defects (1 source) Diplopia; Translations: [Diplopia] Onset: 03-11-2023 03-11-2023 Episodic E Codes: Fall (1 source) Unspecified fall, initial encounter; Translations: [UNSPECIFIED FALL INITIAL ENCOUNTER] Onset: 01-07-2022 Episodic Fracture of upper limb (1 source) Fracture of radial neck; Translations: [Displaced fracture of neck of unspecified radius, initial encounter for closed fracture] Onset: 03-11-2023 03-11-2023 Episodic Other aftercare (1 source) custodial (current) use of insulin; Translations: [[facility] CURRENT USE OF INSULIN] Onset: 01-27-2022 Episodic Other aftercare (1 source) dolphin trainer (current) use of aspirin; Translations: [STAFF NUCLEAR MEDICINE TECHNOLOGIST CURRENT USE OF ASPIRIN] Onset: 01-07-2022 Episodic Other aftercare (1 source) dolphin trainer (current) use of oral hypoglycemic drugs; Translations: [STAFF NUCLEAR MEDICINE TECHNOLOGIST USE ORAL HYPOGLYCEMIC DX] Onset: 01-07-2022 Episodic Other aftercare (1 source) Other automation test developer (current) drug therapy; Translations: [OTH MCC CURRENT DRUG THERAPY] Onset: 01-07-2022 Episodic Other aftercare (1 source) Long-term current use of insulin; Translations: [custodial (current) use of insulin] Onset: 01-28-2016 03-11-2023 Episodic Other and unspecified benign neoplasm (1 source) Adenomatous polyp of colon ; Translations: [Benign neoplasm of ascending colon] Onset: 12-14-2022 12-14-2022 Episodic Other and unspecified benign neoplasm (1 source) History of polyp of colon; Translations: [Personal history of colonic polyps] Onset: 06-01-2018 03-11-2023 Episodic Other and unspecified benign neoplasm (1 source) Benign neoplasm of colon; Translations: [Benign neoplasm of colon, unspecified] Onset: 06-27-2018 03-11-2023 Episodic Other bone disease and musculoskeletal deformities (1 source) Osteopenia; Translations: [Other specified disorders of bone density and structure, unspecified site] Onset: 12-14-2022 12-14-2022 Episodic Other connective tissue disease (1 source) Arthrodesis status; Translations: [ARTHRODESIS STATUS] Onset: 01-27-2022 Episodic Other connective tissue disease (1 source) Trigger thumb of left hand; Translations: [Trigger thumb, left thumb] Onset: 12-14-2022 12-14-2022 Episodic Other connective tissue disease (1 source) Acquired trigger finger; Translations: [Trigger finger, unspecified finger] Onset: 01-15-2021 03-11-2023 Episodic Other diseases of veins and lymphatics (1 source) Peripheral venous insufficiency; Translations: [Venous insufficiency (chronic) (peripheral)] Onset: 12-14-2022 12-14-2022 Episodic Other eye disorders (1 source) Lower eyelid ectropion; Translations: [Unspecified ectropion of unspecified eye, unspecified eyelid] Onset: 03-11-2023 03-11-2023 Episodic Other eye disorders (1 source) Epiphora; Translations: [Unspecified epiphora, unspecified side] Onset: 04-08-2022 03-11-2023 Episodic Other injuries and conditions due to external causes (1 source) History of fall; Translations: [History of falling] Onset: 10-02-2015 03-11-2023 Episodic Other non-traumatic joint disorders (1 source) Pain in elbow; Translations: [Pain in unspecified elbow] Onset: 03-11-2023 03-11-2023 Episodic Other nutritional; endocrine; and metabolic disorders (1 source) Cholesterol level - finding; Translations: [Lipoprotein deficiency] Onset: 12-14-2022 Resolved: 12-14-2022 12-14-2022 Chronic Residual codes; unclassified (1 source) Insomnia, unspecified; Translations: [INSOMNIA UNSPECIFIED] Onset: 07-17-2022 Episodic Residual codes; unclassified (2 sources) Localized edema; Translations: [Localized edema] Onset: 09-28-2022 Episodic Residual codes; unclassified (1 source) Insomnia; Translations: [Insomnia, unspecified] Onset: 06-10-2015 03-11-2023 Episodic Residual codes; unclassified (1 source) Family history of malignant neoplasm of gastrointestinal tract; Translations: [Family history of malignant neoplasm of digestive organs] Onset: 06-01-2018 03-11-2023 Episodic Screening and history of mental health and substance abuse codes (1 source) Ex-smoker; Translations: [Personal history of nicotine dependence] Onset: 10-22-2015 03-11-2023 Episodic Skull and face fractures (2 sources) Closed fracture of orbital floor (blow-out); Translations: [Fracture of orbital floor, unspecified side, initial encounter for closed fracture] Onset: 03-11-2023 03-11-2023 Episodic Thyroid disorders (1 source) Sick-euthyroid syndrome; Translations: [Sick-euthyroid syndrome] Onset: 12-14-2022 12-14-2022 Episodic Unclassified (1 source) LOW BACK PAIN, UNSPECIFIED; Translations: [LOW BACK PAIN, UNSPECIFIED] Onset: 10-30-2021 Results Test Name Value Interpretation Reference Range Facility 36on 01-26-2023 36 Follow-up in 3 months as planned. Thanks [facility] Office Visiton 01-03-2023 Follow-up visit [id number] Konrad Mobley 1945 Provider Department Center 01/03/2023 URI STERN Family History Problem Relation Age of Onset Diabetes Father Heart disease Father Coronary artery disease Father Coronary artery disease Brother Family Status - Relation Status Age at Father Brother Level of Service:99357 MO OFFICE/OUTPATIENT ESTABLISHED LOW MDM 20-29 MIN Reason for Visit and Comments: Medication Problem [65] [facility] Office Visiton 09-28-2022 Follow-up visit [id number] Konrad Mobley 1945 Provider Department Center 09/28/2022 [id number] PILLAI Family History Problem Relation Age of Onset Diabetes Father Heart disease Father Coronary artery disease Father Coronary artery disease Brother Family Status - Relation Status Age at Father Brother Level of Service:80421 MO OFFICE/OUTPATIENT ESTABLISHED LOW MDM 20-29 MIN Reason for Visit and Comments: Hypertension [008991] Normal [facility] PROF CHEM 8 (BAS METB)on Anion gap [Moles/Vol] 11.6 mmol/L Normal [facility] Comment on above: Performed By: #### B MP #### [facility] [address] [address] [address] Rose Chadwick Calcium [Mass/Vol] 9.4 mg/dL Normal 8.5-10.1 [facility] Comment on above: Performed By: #### B MP #### [facility] [address] [address] [address] Rose Chadwick Chloride [Moles/Vol] 101 mmol/L Normal 98-107 [facility] Comment on above: Performed By: #### B MP #### [facility] [address] [address] [address] Rose Chadwick CO2 [Moles/Vol] 32.6 mmol/L Critically high 21.0-32.0 [facility] Comment on above: Performed By: #### B MP #### [facility] [address] [address] [address] Rose Chadwick Creatinine [Mass/Vol] 0.86 mg/dL Normal 0.55-1.02 [facility] Comment on above: Performed By: #### B MP #### [facility] [address] [address] [address] Rose Chadwick EGFR-AF TANZANIAN >60 Normal >=60 [facility] Comment on above: Performed By: #### B MP #### [facility] [address] [address] [address] Rose Chadwick EGFR-NON AF TANZANIAN >60 Normal >=60 [facility] Comment on above: Performed By: #### B MP #### [facility] [address] [address] [address] Rose Chadwick Glucose [Mass/Vol] 108 mg/dL Critically high 74-106 [facility] Comment on above: Performed By: #### B MP #### [facility] [address] [address] [address] Rose Chadwick Potassium [Moles/Vol] 4.2 mmol/L Normal 3.5-5.1 [facility] Comment on above: Performed By: #### B MP #### [facility] [address] [address] [address] Rose Chadwick Sodium [Moles/Vol] 141 mmol/L Normal 136-145 [facility] Comment on above: Performed By: #### B MP #### [facility] [address] [address] [address] Rose Chadwick Urea nitrogen [Mass/Vol] 15.0 mg/dL Normal 7.0-18.0 [facility] Comment on above: Performed By: #### B MP #### [facility] [address] [address] [address] Rose Chadwick Urea nitrogen/Creatinine [Mass ratio] 17.4 mg/mg Normal [facility] Comment on above: Performed By: #### B MP #### [facility] [address] [address] [address] Rose Chadwick 37on 08-31-2022 37 -Obtain an arm BP monitor, [employer] brand is preferred -Check blood pressure at least once daily 2-3 hours after taking medications - Stop taking Losartan -Start taking Losartan-hydrochloro thiazide -Check labs in 1 week Normal [facility] Office Visiton 08-31-2022 Follow-up visit [id number] Konrad Mobley 1945 F Date Provider Department Center 08/31/2022 [id number] DEL TORO [facility] Family History Problem Relation Age of Onset Diabetes Father Heart disease Father Coronary artery disease Father Coronary artery disease Brother Family Status - Relation Status Age at Father Brother Level of Service:02285 MO OFFICE/OUTPATIENT ESTABLISHED LOW MDM 20-29 MIN Reason for Visit and Comments: Hypertension [746074] Normal [facility] PROF CHEM 8 (BAS METB)on Anion gap [Moles/Vol] 11.9 mmol/L Normal [facility] Comment on above: Performed By: #### B MP #### [facility] [address] [address] [address] Rose Chadwick Calcium [Mass/Vol] 9.0 mg/dL Normal 8.5-10.1 [facility] Comment on above: Performed By: #### B MP #### [facility] [address] [address] [address] Rose Chadwick Chloride [Moles/Vol] 103 mmol/L Normal 98-107 [facility] Comment on above: Performed By: #### B MP #### [facility] [address] [address] [address] Rose Chadwick CO2 [Moles/Vol] 30.3 mmol/L Normal 21.0-32.0 [facility] Comment on above: Performed By: #### B MP #### [facility] [address] [place] [address] Dr. Rose Chadwick Creatinine [Mass/Vol] 0.84 mg/dL Normal 0.55-1.02 [facility] Comment on above: Performed By: #### B MP #### [facility] [address] [address] [address] Rose Chadwick EGFR-AF TANZANIAN >60 Normal >=60 [facility] Comment on above: Performed By: #### B MP #### [facility] [address] [address] [address] Rose Chadwick EGFR-NON AF TANZANIAN >60 Normal >=60 [facility] Comment on above: Performed By: #### B MP #### [facility] [address] [address] [address] Rose Chadwick Glucose [Mass/Vol] 119 mg/dL Critically high 74-106 [facility] Comment on above: Performed By: #### B MP #### [facility] [address] [address] [address] Rose Chadwick Potassium [Moles/Vol] 4.2 mmol/L Normal 3.5-5.1 [facility] Comment on above: Performed By: #### B MP #### [facility] [address] [address] [address] Rose Chadwick Sodium [Moles/Vol] 141 mmol/L Normal 136-145 [facility] Comment on above: Performed By: #### B MP #### [facility] [id number] Rose Chadwick Urea nitrogen [Mass/Vol] 13.0 mg/dL Normal 7.0-18.0 [facility] Comment on above: Performed By: #### B MP #### [facility] [address] [address] [address] Rose Chadwick Urea nitrogen/Creatinine [Mass ratio] 15.5 mg/mg Normal [facility] Comment on above: Performed By: #### B MP #### [facility] [id number] Rose Chadwick Follow-Upon 06-01-2022 Follow-Up [id number] Konrad Mobley 1945 F Date Provider Department Center 06/01/2022 NADIYA CAMERON [facility] Family History Problem Relation Age of Onset Diabetes Father Heart disease Father Coronary artery disease Father Coronary artery disease Brother Family Status - Relation Status Age at Father Brother Level of Service:36020 MO OFFICE/OUTPATIENT ESTABLISHED LOW MDM 20-29 MIN Reason for Visit and Comments: Hypertension [372703] Normal [facility] PROF CHEM 8 (BAS METB)on Anion gap [Moles/Vol] 11.1 mmol/L Normal [facility] Comment on above: Performed By: #### B MP #### [facility] [id number] Rose Chadwick Calcium [Mass/Vol] 9.0 mg/dL Normal 8.5-10.1 [facility] Comment on above: Performed By: #### B MP #### [facility] [id number] Rose Chadwick Chloride [Moles/Vol] 103 mmol/L Normal 98-107 [facility] Comment on above: Performed By: #### B MP #### [facility] [id number] Rose Chadwick CO2 [Moles/Vol] 29.6 mmol/L Normal 21.0-32.0 [facility] Comment on above: Performed By: #### B MP #### [facility] [address] [address] [address] Rose Chadwick Creatinine [Mass/Vol] 1.22 mg/dL Critically high 0.55-1.02 [facility] Comment on above: Performed By: #### B MP #### [facility] [address] [address] [address] Rose Chadwick EGFR-AF TANZANIAN 52 mL/min/1.73m2 Critically low >=60 [facility] Comment on above: Performed By: #### B MP #### [facility] [address] [address] [address] Rose Chadwick EGFR-NON AF TANZANIAN 43 mL/min/1.73m2 Critically low >=60 [facility] Comment on above: Performed By: #### B MP #### [facility] [address] [address] [address] Rose Chadwick Glucose [Mass/Vol] 112 mg/dL Critically high 74-106 [facility] Comment on above: Performed By: #### B MP #### [facility] [address] [address] [address] Rose Chadwick Potassium [Moles/Vol] 4.7 mmol/L Normal 3.5-5.1 [facility] Comment on above: Performed By: #### B MP #### [facility] [address] [address] [address] Rose Chadwick Sodium [Moles/Vol] 139 mmol/L Normal 136-145 [facility] Comment on above: Performed By: #### B MP #### [facility] [address] [address] [address] Rose Chadwick Urea nitrogen [Mass/Vol] 23.0 mg/dL Critically high 7.0-18.0 [facility] Comment on above: Performed By: #### B MP #### [facility] [address] [address] [address] Rose Chadwick Urea nitrogen/Creatinine [Mass ratio] 18.9 mg/mg Normal [facility] Comment on above: Performed By: #### B #### [facility] [address] [address] [address] Rose Chadwick 30on 05-10-2022 30 Recent labs reviewed- Serum CR elevated 1.42, BUN 28, GFR 36 Provider called pt to discuss kidney function (received voicemail)- to stop aldactone, cut losartan in half to 50 mg daily, to start hydralazine 50 mg bid. Monitor b/p, and to have repeat BMP next week. Office staff notified to call pt and schedule her for a F/U within 1-2 weeks. Pt instructed to call office to discuss renal function and med changes on voice mail message. Nadiya Gillespie NP Division of Cardiology, [facility]- [phone] Pager- [phone] Email- [email or web address] Normal [facility] Documentationon 05-10-2022 Documentation [id number] Konrad Mobley 1945 F Date Provider Department Center 05/10/2022 120-NADIYA GILLESPIE [facility] Family History Problem Relation Age of Onset Diabetes Father Heart disease Father Coronary artery disease Father Coronary artery disease Brother Family Status - Relation Status Age at Father Brother Reason for Visit and Comments: Elevated Serum Creatinine [593] - Serum CR elevated 1.42, BUN 28, GFR 36 Provider called pt to discuss kidney function (received voicemail)- to stop aldactone, cut losartan in half to 50 mg daily, to start hydralazine 50 mg bid. Monitor b/p, and to have repeat BMP next week. Office staff notified to call pt and schedule her for a F/U within 1-2 weeks. Pt instructed to call office to discuss renal function and med changes on voice mail message. Normal [facility] Orders Onlyon 05-10-2022 Orders Only [id number] Konrad Mobley 1945 F Date Provider Department Center 05/10/2022 CA AMANDA PAULA [facility] Family History Problem Relation Age of Onset Diabetes Father Heart disease Father Coronary artery disease Father Coronary artery disease Brother Family Status - Relation Status Age at Father Brother Normal [facility] PROF CHEM 8 (BAS METB)on Anion gap [Moles/Vol] 13.4 mmol/L Normal [facility] Comment on above: Performed By: #### B MP ####[facility] [address] [id number] Rose Chadwick Calcium [Mass/Vol] 9.1 mg/dL Normal 8.5-10.1 [facility] Comment on above: Performed By: #### B MP ####[facility] [address] [address]Dr[address] Rose Chadwick Chloride [Moles/Vol] 103 mmol/L Normal 98-107 [facility] Comment on above: Performed By: #### B MP ####[facility] [address] [address]Dr. Rose Chadwick CO2 [Moles/Vol] 28.3 mmol/L Normal 21.0-32.0 [facility] Comment on above: Performed By: #### B MP ####[facility] [address] [address]Dr. Rose Chadwick Creatinine [Mass/Vol] 1.42 mg/dL Critically high 0.55-1.02 [facility] Comment on above: Performed By: #### B MP ####[facility] [address] [address]Dr. Rose Chadwick EGFR-AF TANZANIAN 43 mL/min/1.73m2 Critically low >=60 [facility] Comment on above: Performed By: #### B MP ####[facility] [address] [id number] Rose Chadwick EGFR-NON AF TANZANIAN 36 mL/min/1.73m2 Critically low >=60 [facility] Comment on above: Performed By: #### B MP ####[facility] [address] [address]Dr. Karlajoni Farrukh Glucose [Mass/Vol] 125 mg/dL Critically high 74-106 [facility] Comment on above: Performed By: #### B MP ####[facility] [address] [place], [place] [address]Hw. Rose Chadwick Potassium [Moles/Vol] 5.7 mmol/L Critically high 3.5-5.1 [facility] Comment on above: Performed By: #### B MP ####[facility] [address] [id number] Rose Chadwick Sodium [Moles/Vol] 139 mmol/L Normal 136-145 [facility] Comment on above: Performed By: #### B MP ####[facility] [address] [id number] Rose Chadwick Urea nitrogen [Mass/Vol] 28.0 mg/dL Critically high 7.0-18.0 [facility] Comment on above: Performed By: #### B MP ####[facility] [address] [id number][address] Rose Chadwick Urea nitrogen/Creatinine [Mass ratio] 19.7 mg/mg Normal [facility] Comment on above: Performed By: #### B MP ####[facility] [address] [id number] Rose Chadwick Office Visiton 04-28-2022 Follow-up visit [id number] Konrad Mobley 1945 Provider Department Center 04/28/2022 NADIYA CAMERON [facility] Family History Problem Relation Age of Onset Diabetes Father Heart disease Father Coronary artery disease Father Coronary artery disease Brother Family Status - Relation Status Age at Father Brother Level of Service:50899 MO OFFICE/OUTPATIENT ESTABLISHED MOD MDM 30-39 MIN Reason for Visit and Comments: Hypertension [211590] - Patient here for 3 mo follow up hypertension. Denies chest pain and SOB. Normal [facility] Abstracton 04-16-2022 Abstract [id number] Konrad Mobley 1945 Provider Department Center 04/16/2022 CA AMANDA [facility] Family History Problem Relation Age of Onset Diabetes Father Heart disease Father Coronary artery disease Father Coronary artery disease Brother Family Status - Relation Status Age at Father Brother Normal [facility] POINT OF CARE GLUCOSEon 06-1 Glucose [Mass/Vol] 120 mg/dL Critically high 74-106 [facility] Comment on above: Performed By: #### P OCGLUC #### [facility] [address] [address] [address] PELVIS WO CONon 2 CT PELVIS WO CON EXAMINATION: CT PELVIS WO CON HISTORY: Unspecified fall ; large lump/hematoma on right but not since falling 12/27/2021 COMPARISON: No relevant comparison available. TECHNIQUE: Axial, Coronal, and Sagittal CT images obtained without IV contrast. Dose reduction techniques were achieved by using automated exposure control and/or adjustment of mA and/or kV according to patient size and/or use of iterative reconstruction technique. FINDINGS: BOWEL: No abnormality of the visible bowl. LYMPH NODES: No adenopathy. URINARY BLADDER: No visible focal wall thickening, lesion, or calculus. PELVIC ORGANS: Hysterectomy. ANTERIOR WALL: No hernia. BONES: No bone lesion or fracture. Mechanical fusion and posterior decompression of the visible lower lumbar spine. OTHER: Large irregular lesion within the subcutaneous fat of the right gluteus consistent with history of hematoma, 11.6 x 5.0 x 13.5 cm; likely mixture of subacute and chronic clot. This is confined to the subcutaneous fat; no involvement of the deeper musculature. IMPRESSION: 1. Findings consistent with a large mixed age hematoma within the right gluteus subcutaneous fat. 2. No involvement of deeper musculature. 3. No fracture. Electronically authenticated by: JOE MUKHERJEE Date: 2022-01-06 12:14 Normal [facility] XR DEXA BONE DENSITYon 01-04 XR DEXA BONE DENSITY EXAMINATION: XR DEX A BONE DENSITY, 01/04/2022 11:09 AM EDT HISTORY: Primary ovarian failure COMPARISON: None. TECHNIQUE: Dual-energy X-ray absorptiometry (DEXA) bone density study performed for the axial skeleton. FINDINGS: FOREARM ANALYSIS: Average bone mineral density is 0.657 g/cm2. T-score (standard deviation relative to young adult mean): -0.8 . -3.9% change since prior study. HIP ANALYSIS: Lowest bone mineral density is within the femoral neck, 0.968 g/cm2. T-score (standard deviation relative to young adult mean): -0.5 . -5.6% change since prior study IMPRESSION: World [employer] Organization Classification: Normal - Low Fracture Risk Electronically authenticated by: JOE MUKHERJEE Date: 2022-01-04 11:51 Normal [facility] CT LSPINE WO CONon 2 CT LSPINE WO CON EXAMINATION: CT LSPINE WO CON, 11/30/2021 12:53 PM EDT HISTORY: Lumbosacral neuritis ; chronic lumbar pain radiating into legs COMPARISON: XR lumbar spine 10/30/2021 TECHNIQUE: CT of the lumbar spine was performed without IV contrast. CT dose reduction technique was used, including Automated Exposure Control. FINDINGS: PARASPINAL AREA: Marked atherosclerotic disease of the distal aorta and common iliac arteries without aneurysm. BONES: Mechanical stabilization of L3-S1 via bilateral pedicle screws and rods without evidence of hardware fracture or loosening. Reversal of normal lordotic curvature of the upper lumbar spine. Posterior decompression of L4 and L5. CERVICAL DISC LEVELS: 12-L1: Early degenerative disc disease is present without focal protrusion or neural impingement. L1-L2: Marked central canal and right foramen narrowing. Mild left foramen narrowing. Marked diffuse disc bulging and marked disc height reduction. Moderate degenerative facet arthropathy, right greater than left. L2-L3: Marked central canal narrowing and mild bilateral foramen narrowing. Moderate diffuse disc bulging with marked disc height reduction. Moderate degenerative facet arthropathy bilaterally. L3-L4: Mild foramen narrowing bilaterally. No significant central canal narrowing secondary to posterior decompression. Intervertebral disc spacer. L4-L5: Mild foramen narrowing bilaterally. No significant central canal narrowing secondary to posterior decompression. Mild disc height reduction and mild diffuse disc bulging. L5-S1: Mild foramen narrowing bilaterally. No significant central canal narrowing secondary to posterior decompression. Intervertebral disc spacer. IMPRESSION: 1. Marked central canal narrowing at L1-L2 and L2-L3, and marked right foramen narrowing at L1-L2. Findings secondary to large posterior disc-osteophyte complexes and degenerative facet arthropathy. 2. Mechanical fusion of L3-S1 with posterior decompression of L4 and L5. Postsurgical changes, but no significant foramen narrowing. Electronically authenticated by: JOE MUKHERJEE Date: 2021-11-30 16:48 Normal [facility] PROF CHEM 8 (BAS METB)on Anion gap [Moles/Vol] 13.3 mmol/L Normal [facility] Comment on above: Performed By: #### B MP ####[facility] [address] [place] [address]Dr. Rose Chadwick Calcium [Mass/Vol] 8.8 mg/dL Normal 8.5-10.1 [facility] Comment on above: Performed By: #### B MP ####[facility] [address] [place] [address]Dr. Karlajoni Farrukh Chloride [Moles/Vol] 101 mmol/L Normal 98-107 [facility] Comment on above: Performed By: #### B MP ####[facility] [address] [place] [address]Dr. Karlajoni Farrukh CO2 [Moles/Vol] 29.5 mmol/L Normal 22.0-30.0 [facility] Comment on above: Performed By: #### B MP ####[facility] [address] [place], [place] [address]Dr. Rose Chadwick Creatinine [Mass/Vol] 0.85 mg/dL Normal 0.52-1.04 [facility] Comment on above: Performed By: #### B MP ####[facility] [address] [place], [place] [address]Dr. Karlajoni Farrukh EGFR-AF TANZANIAN >60 Normal >=60 [facility] Comment on above: Performed By: #### B MP ####[facility] [address] [place] [address]Dr. Rose Chadwick EGFR-NON AF TANZANIAN >60 Normal >=60 [facility] Comment on above: Performed By: #### B MP ####[facility] [address] [place] [address]Dr. Rose Chadwick Glucose [Mass/Vol] 116 mg/dL Critically high 74-106 [facility] Comment on above: Performed By: #### B MP ####[facility] [address] [place] [address]Dr. Rose Chadwick Potassium [Moles/Vol] 4.8 mmol/L Normal 3.4-5.0 [facility] Comment on above: Performed By: #### B MP ####[facility] [address] [place] [id number]. Rose Chadwick Sodium [Moles/Vol] 139 mmol/L Normal 137-145 [facility] Comment on above: Performed By: #### B MP ####[facility] [address] [place], [place] [address]Nx. Rose Chadwick Urea nitrogen [Mass/Vol] 15.0 mg/dL Normal 7.0-18.0 [facility] Comment on above: Performed By: #### B MP ####[facility] [address] [place], [place] [address]Hi. Rose Chadwick Urea nitrogen/Creatinine [Mass ratio] 17.6 mg/mg Normal [facility] Comment on above: Performed By: #### B MP ####[facility] [address] [place] [id number]. Rose Chadwick XR LSPINE MIN 4 VIEWSon 10-13 XR LSPINE MIN 4 VIEWS EXAMINATION: XR LSPINE MIN 4 VIEWS HISTORY: Low back pain COMPARISON: No relevant comparison available. FINDINGS: BONES: Posterior decompression bilateral transpedicular fusion L3-S1. No acute fracture, dislocation or mechanical failure. Moderate to severe degenerative spondylosis most significant at L2-L3 DISC SPACES: Multilevel disc space narrowing. Intervertebral spacer at L3-L4 and L5-S1 PARASPINOUS: Negative. No paraspinous abnormality is seen. OTHER: Extensive atherosclerotic disease IMPRESSION: L3-S1 fusion with no mechanical failure Degenerative changes most significant at L2-L3 Electronically authenticated by: PATITO DE JESUS Date: 2021-10-30 15:27 Normal [facility] Vital Signs Date Time Vital Sign Value Performing Clinician Facility 06-27-2023 13:00-0500 Body height 154.94 cm Abdullahi Acosta Other [facility] Other 06-27-2023 13:00-0500 Body mass index (BMI) [Ratio] 35.9 kg/m2 Abdullahi Acosta Other [facility] Other 06-27-2023 13:00-0500 Body weight 86.18 kg Abdullahi Cernaban Other [facility] Other 06-27-2023 13:00-0500 Diastolic blood pressure 64 mm[Hg] Nishal Chaban Other [facility] Other 06-27-2023 13:00-0500 SaO2% (BldA) [Mass fraction] 97 % Nishal Chaban Other [facility] Other 06-27-2023 13:00-0500 Systolic blood pressure 131 mm[Hg] Nishal Chaban Other [facility] Other 06-28-2022 14:00-0500 Body height 154.94 cm Abdullahi Chaban Other [facility] Other 06-28-2022 14:00-0500 Body mass index (BMI) [Ratio] 37.22 kg/m2 Nishal Chaban Other [facility] Other 06-28-2022 14:00-0500 Body temperature 96.8 [degF] Abdullahi Chaban Other [facility] Other 06-28-2022 14:00-0500 Body weight 89.36 kg Nishal Chaban Other [facility] Other 06-28-2022 14:00-0500 Diastolic blood pressure 73 mm[Hg] Nishal Chaban Other [facility] Other 06-28-2022 14:00-0500 SaO2% (BldA) [Mass fraction] 97 % Nishal Chaban Other [facility] Other 06-28-2022 14:00-0500 Systolic blood pressure 143 mm[Hg] Abdullahi Acosta Other [facility] Other 07-02-2021 14:00-0500 Body height 154.94 cm Olamide Jeane Other [facility] Other 07-02-2021 14:00-0500 Body mass index (BMI) [Ratio] 35.33 kg/m2 Olamide Jeane Other [facility] Other 07-02-2021 14:00-0500 Body temperature 96 [degF] Olamide Jeane Other [facility] Other 07-02-2021 14:00-0500 Body weight 84.82 kg Olamide Jeane Other [facility] Other 07-02-2021 14:00-0500 Diastolic blood pressure 83 mm[Hg] Olamide Jeane Other [facility] Other 07-02-2021 14:00-0500 SaO2% (BldA) [Mass fraction] 97 % Olamide Jeane Other [facility] Other 07-02-2021 14:00-0500 Systolic blood pressure 176 mm[Hg] Olamide Jeane Other [facility] Other Encounters Encounter Date Encounter Type Care Provider Facility Start: 04-09-2024 End: 04-09-2024 ambulatory KOFI BOWERS Not Available Start: 03-18-2024 End: 03-18-2024 Emergency department patient visit KOFI BOWERS [facility] Start: 01-18-2024 End: 01-18-2024 ambulatory ABEL GOODE Not Available Start: 12-01-2023 End: 12-01-2023 ambulatory KEN TATTERSALL Not Available Start: 11-17-2023 End: 11-17-2023 ambulatory KEN OBRIENTERSALL Not Available Start: 11-15-2023 End: 11-15-2023 ambulatory KEN TATTERSALL Not Available Start: 11-10-2023 End: 11-10-2023 ambulatory KNE TATTERSALL Not Available Start: 11-08-2023 End: 11-08-2023 ambulatory KEN TATTERSALL Not Available Start: 11-04-2023 End: 11-04-2023 ambulatory KWAKU CHRISTENSEN Not Available Start: 11-01-2023 End: 11-01-2023 ambulatory KEN OBRIENTERSALL Not Available Start: 10-28-2023 End: 10-28-2023 ambulatory GHAZAL GRIFFIN Not Available Start: 10-27-2023 End: 10-27-2023 ambulatory KOFI BOWERS Not Available Start: 09-29-2023 Refill Kofi Bowers MD Work Phone: [facility] Comment on above: Failed back syndrome Start: 07-20-2023 End: 07-20-2023 ambulatory ABEL GOODE Not Available Start: 06-27-2023 End: 06-27-2023 ambulatory Abdullahi Acosta Facility:[facility] Start: 06-27-2023 Office outpatient visit 15 minutes Abdullahi Acosta [facility] Start: 06-27-2023 End: 06-27-2023 ambulatory II Kofi Bowers Work Phone: [facility] Work Phone: Start: 06-27-2023 End: 06-27-2023 Patient encounter procedure II Kofi Bowers Work Phone: [facility] Work Phone: Start: 01-18-2023 ambulatory DAVID ISAAC . Facility: Start: 01-03-2023 End: 01-03-2023 ambulatory [facility] Start: 10-14-2022 End: 10-15-[address] SERENITY GARCIA . Facility:[facility] Start: 09-28-2022 End: 09-28-2022 [facility] Start: 09-07-2022 End: 09-08-[address] DOCTOR BUENROSTRO Facility:[facility] Start: 08-31-2022 End: 08-31-2022 ambulatory [facility] Start: 08-23-2022 End: 08-24-[address] FRANKLYN GARCIA Facility:[facility] Start: 07-14-2022 End: 07-15-2022 ambulatory BETZAIDA ZIMMER . Facility:[facility] Start: 06-28-2022 Office outpatient visit 15 minutes [facility] Start: 06-28-2022 End: 06-28-2022 ambulatory II Kofi Bowers Work Phone: [facility] Work Phone: Start: 06-28-2022 End: 06-28-2022 Patient encounter procedure II Kofi Bowers Work Phone: [facility] Start: 06-01-2022 End: 06-01-2022 ambulatory NADIYA VERNA [facility] Start: 05-18-2022 End: 05-19-2022 ambulatory NADIYA VERNA Facility:[facility] Start: 05-05-2022 End: 05-06-2022 ambulatory NADIYA GILLESPIE Facility:[facility] Start: 04-28-2022 End: 04-28-2022 ambulatory NADIYA GILLESPIE [facility] Start: 04-08-2022 End: 04-08-[address] SERENITY GARCIA . Facility:[facility] Start: 02-10-2022 End: 02-11-[address] SERENITY GARCIA . Facility:[facility] Start: 01-26-2022 End: 01-26-[address] SERENITY GARCIA . Facility:[facility] Start: 01-06-2022 End: 01-06-[address] JOE MUKHERJEE Facility:[facility] Start: 01-04-2022 End: 01-05-[address] KOFI BOWERS Facility:[facility] Start: 12-06-2021 ambulatory OLIVA CARROLL Faci lity:[facility] Start: 11-30-2021 End: 12-01-[address] KOFI BOWERS Facility:[facility] Start: 11-23-2021 ambulatory BETZAIDA ZIMMER . Facility:[facility] 1 Start: 11-03-2021 End: 11-04-2021 ambulatory OLIVA CARROLL Facility:[facility] Start: 10-30-2021 End: 10-31-[address] KOFI BOWERS Facility:[facility] Start: 07-02-2021 End: 07-02-2021 ambulatory Olamide Evansz Other [facility] Other Start: 07-02-2021 Office outpatient visit 15 minutes Olamide Ching [facility] Plan of Treatment Date Care Activity Detail Author Start: 01-04-2024 Medicare Annual Well ness (AWV) Medicare Annual Wellness (AWV) [facility] Start: 01-04-2024 Urine screening for protein Diabetes: Urine Protein Screening [facility] Start: 10-27-2023 End: 10-27-2023 Patient encounter procedure 10/27/2023 2:45 PM EDT Office Visit [facility] [address] [facility] [address] [place] [id number] Kofi Bowers MD [address] [facility] [address] [place] [address] [facility] Start: 10-19-2023 Hemoglobin A1c measurement Diabetes: Hemoglobin A1C [facility] Start: 04-28-2021 Glaucoma screening Diabetes: R etinopathy Screening [facility] Start: 05-15-2014 Pneumococcal Vaccine : 65+ Years (2 of 2 - PCV) Pneumococcal Vaccine: 65+ Years (2 of 2 - PCV) [facility] Immunizations Immunization Date Immunization Notes Care Provider Fa cility 06-06-2023 Influenza, High-dose Seasonal, Quadrivalent, Preservative Free Kofi Bowers MD Work Phone: [facility] 05-20-2021 Influenza, injectabl e, Madin Bunker Canine Kidney, preservative free, quadrivalent Kofi Bowers MD Work Phone: [facility] 09-15-2020 influenza, high dose seasonal, preservative-free Kofi Bowers MD Work Phone: [facility] 05-15-2020 Seasonal, trivalent, recombinant, injectable influenza vaccine, preservative free Kofi Bowers MD Work Phone: [facility] 06-15-2019 influenza, injectabl e, quadrivalent, preservative free Kofi Bowers MD Work Phone: [facility] 05-22-2018 influenza, injectabl e, quadrivalent, preservative free Kofi Bowers MD Work Phone: [facility] 08-02-2015 influenza, injectabl e, quadrivalent, preservative free Kofi Bowers MD Work Phone: [facility] 07-31-2015 tetanus and diphther ia toxoids, adsorbed, preservative free, for adult use (5 Lf of tetanus toxoid and 2 Lf of diphtheria toxoid) Kofi Bowers MD Work Phone: [facility] 05-15-2013 pneumococcal polysaccharide vaccine, 23 valent Kofi Bowers MD Work Phone: [facility] Payers Date Payer Category Payer Medicare [employer] UHC MEDICARE ADVANTAGE [id number] 2023-Present [address] [address] [place] [address] [id number] 2022 Medicare [id number] 2017 Medicare [id number] 1959 Medicare [id number] 1959 Medicare [id number] 1959 Private Health Insurance [facility] [id number] 1959 Self-pay [id number] 1945 [facility] [id number] 2.16.840.1.753251.3.579.2. 593 1945 Unknown [id number] 2.16.840.1.231130.3.579.2. 593 1945 Unknown [id number] 2.16.840.1.978905.3.579.2. 593 1945 Unknown [id number] 2.16.840.1.294338.3.579.2. 593 1945 Unknown [id number] 2.16.840.1.250863.3.579.2. 593 1945 Unknown [id number] 2.16.840.1.275719.3.579.2. 593 1945 Unknown [id number] 2.16.840.1.796090.3.579.2. 593 1945 Unknown [id number] 2.16.840.1.280077.3.579.2. 593 1945 Unknown [id number] 2.16.840.1.540004.3.579.2. 593 1945 Unknown [id number] 2..840.1.903906.3.579.2. 593 1945 Unknown [id number] 2.16.840.1.212989.3.579.2. 593 1945 Unknown [id number] 2.16.840.1.756767.3.579.2. 593 1945 Unknown [id number] 2.16.840.1.671310.3.579.2. 593 1945 Unknown [id number] 2.16.840.1.537114.3.579.2. 593 1945 Unknown [id number] 2.16.840.1.211476.3.579.2. 593 1945 Unknown [id number] 2.16.840.1.501179.3.579.2. 593 1945 Unknown [id number] 2.16.840.1.297744.3.579.2. 593 1945 Unknown [id number] 2.16.840.1.556874.3.579.2. 593 1945 Unknown [id number] 2.16.840.1.699684.3.579.2. 1286 1945 Unknown [id number] 2.16.840.1.075871.3.579.2. 1259 1945 Unknown [id number] 2.16.840.1.218041.3.579.2. 125 1945 Unknown [id number] 2.16.840.1.373963.3.579.2. 125 1945 Unknown [id number] 2.16.840.1.455086.3.579.2. 125 1945 Unknown [id number] 2.16.840.1.748513.3.579.2. 125 1945 Unknown [id number] 2.16.840.1.413517.3.579.2. 125 1945 Unknown [id number] 2.16.840.1.990725.3.579.2. 125 1945 Unknown [id number] 2.16.840.1.960718.3.579.2. 125 1945 Unknown [id number] 2.16.840.1.077041.3.579.2. 125 1945 Unknown [id number] 2.16.840.1.120718.3.579.2. 125 1945 Unknown [id number] 2.16.840.1.832415.3.579.2. 125 1945 Unknown [id number] 2.16.840.1.848939.3.579.2. 1259 Medicare Medicare [id number] Unknown Kaden BC/BS [id number] Unknown [id number] 2.16.840.1.392135.3.579.2. 531 Social History Date Type Detail Facility Unknown if ever smoked [facility] Other Start: 06-15-2018 End: 03-11-2023 Tobacco smoking status NHIS Ex-smoker (finding) [facility] Start: 1945 Sex Assigned At Female [facility] Start: 01-03-2023 End: 07-20-2023 Sex Assigned At [facility] Other End: 08-15-1999 History of tobacco use Current smoker [facility] End: 08-15-1999 History of tobacco use Cigarette Smoker [facility] Start: 03-11-2023 Tobacco use and exposure Smokeless tobacco non-user [facility] Start: 07-20-2023 Alcohol intake Ex-drinker (finding) [facility] Start: 01-03-2023 End: 07-20-2023 History of Social function [facility] Start: 12-17-2022 Alcohol Comment Caffeine: 1-2 cups per day; none soda/pop [facility] Start: 1945 Sex Assigned At Not on file N [facility] Clinical Notes 11-03-2021 to 09-29-2023 Telephone Encounter - DINORA Lopez - 09/29/2023 12:33 PM ESTTelephone Encounter - DINORA Lopez - 09/29/2023 12:33 PM EST Note Date & Type Note Facility 09-29-2023 Telephone encounter Note Form atting of this note might be different from the original. OARRS reviewed, Rx sent into patient's pharmacy. [facility] 09-29-2023 Miscellaneous Notes Formattin g of this note might be different from the original. OARRS reviewed, Rx sent into patient's pharmacy. documented in this encounter [facility] 06-27-2023 Evaluation note Encounter Date Diagnosis Assessment Notes Jun, Obstructive sleep apnea (ICD-10 - G47.33) Jun, Chronic insomnia (ICD-10 - F51.04) [facility] Other 05-22-2023 NotePatient is here today to discuss medication Review of Systems Musculoskeletal: Positive for arthritis and back pain. All other systems reviewed and are negative.[facility] 01-03-2023 [facility] SUBJECTIVE Chief Complaint Patient presents with Medication Problem Konrad Mobley is a 77 y.o. female here for follow-up. HPI She presents to clinic per her PCP due to concerns for LE edema and discuss amlodipine. She reports that she woke up one morning she woke up and her right leg was significantly more swollen than her left. She went to the ER, BLE doppler was negative for DVT, and she was treated for cellulitis. Her PCP saw her and stated she did not have cellulitis and he put her on additional diuretic for a few days, she thinks it may have been torsemide. This helped resolve her swelling along with wearing compression stockings and elevating her legs. She notes she has been taking amlodipine 10mg BID. She will be driving down to [place] this weekend for her high school reunion. Educated her to wear compression stockings in the car, get out and ambulate often, and perform leg pumps often while sitting. Last HPI per Erika: Ms. Mobley is a 76-year-old patient with a past medical history including resistant obstructive sleep apnea and hypertension who presents to cardiology clinic at the request of her primary care physician for assistance in management of blood pressure. 05/2022: Patient here for 1 mo follow up Hypertension. Noted increased renal function after starting aldactone for HTN- therefore we stopped aldactone and cut losartan in 08/16. Had repeat labs 05/18, after adding hydralazine 50mg bid and cutting losartan back to 50mg daily. Still denies chest pain and SOB. Feels good. Denied chest pain, shortness of breath, orthopnea, leg swelling. Reviewed b/p log and typically b/p is much better with a few outliers of 90/40 and up to 150/80 Patient Active Problem List Diagnosis Closed fracture of orbital floor (blow-out) (CMS/HCC) Epiphora Fracture of orbit ([facility]/HCC) Fracture of radial neck Obesity Hypertensive disorder Pain in elbow MANOLO (obstructive sleep apnea) Diabetes ([facility]/HCC) Polyneuropathy Vitreous floaters of both eyes Venous hypertension of lower extremity Trigger thumb, left thumb Insomnia Osteopenia Peripheral venous insufficiency Non-seasonal allergic rhinitis Mixed 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 ([facility]/HCC) Lipoprotein deficiency disorder History of fall History of colonic polyps GERD (gastroesophageal reflux disease) Family history of malignant neoplasm of gastrointestinal tract Failed back syndrome Ex-smoker ESS (euthyroid sick syndrome) Disability of walking Diabetic retinopathy associated with controlled type 2 diabetes mellitus ([facility]/HCC) Diabetic polyneuropathy associated with type 2 diabetes mellitus ([facility]/HCC) Type 2 diabetes mellitus with hyperglycemia ([facility]) Decreased estrogen level Continuous positive airway pressure dependent Congenital renal artery anomaly Chronic pain syndrome Chronic fatigue Benign neoplasm of colon Benign essential hypertension Adenomatous polyp of ascending colon Acquired trigger finger Osteopenia Failed back syndrome Past Medical History: Diagnosis Date Essential hypertension Family History Problem Relation Name Age of Onset Diabetes Father Heart disease Father Coronary artery disease Father Coronary artery disease Brother Social History Tobacco Use Smoking status: Former Types: Cigarettes Quit date: 1999 Years since quittin.4 Smokeless tobacco: Never Substance Use Topics Alcohol use: Never Drug use: Never Allergies Allergen Reactions Iodine Anaphylaxis Levofloxacin Pregabalin Dizziness and Unknown Shellfish Containing Products Swelling ROS Musculoskeletal: Positive for arthritis and back pain. All other systems reviewed and are negative. OBJECTIVE Visit Vitals BP 134/78 (BP Location: Left arm, Patient Position: Sitting, BP Cuff Size: Adult) Pulse 72 Ht 1.524 m (5') Wt 85.9 kg (189 lb 6.4 oz) SpO2 98% BMI 36.99 kg/m??? Smoking Status Former BSA 1.91 m??? Medications: Current Outpatient Medications: acarbose (Precose) 100 mg tablet, Take 1 tablet by mouth in the morning and at bedtime., Disp: , Rfl: amLODIPine (Norvasc) 10 mg tablet, Take 1 tablet (10 mg) by mouth in the morning., Disp: 90 tablet, Rfl: 3 aspirin 81 mg EC tablet, Take 1 tablet every day by oral route., Disp: , Rfl: baclofen (Lioresal) 10 mg tablet, Take 1 tablet by mouth at bedtime., Disp: , Rfl: blood pressure test kit-large kit, 1 kit in the morning., Disp: 1 kit, Rfl: 0 carvedilol (Coreg) 25 mg tablet, Take 1 tablet by mouth in the morning and at bedtime., Disp: , Rfl: dulaglutide (Trulicity) 4.5 mg/0.5 mL pen injector, INJECT 1 PEN SUBCUTANEOUSLY ONCE WEEKLY, Disp: , Rfl: furosemide (Lasix) 40 mg tablet, Take 1 tablet by mouth in the morning., Disp: , Rfl: hydrALAZINE (Apresoline) 50 mg tablet, Take 1 (more content not included)... [facility]03-02-2023 NoteCONSULTATION CONSULTATION DATE: 10/14/2022 HISTORY: This is a very pleasant and active, 77-year-old female who returns to the clinic for a three month follow up for chronic lower back pain. The patient was last seen on 07/14/2022 and, at that time, she was pain free. She does have chronic right lower extremity hypoesthesia that goes along the posterior and lateral aspect to the level of the ankle. Today, she is experiencing 9/10 pain, she describes as sharp. A couple days ago, the patient was very active, cleaning out her garage and her car and notes that she over did her activity. She does ambulate with a quad cane steadily. Medications include tramadol 100 mg b.i.d., baclofen 10 mg q.h.s., Mirapex 0.5 mg q.h.s. and multivitamin regimen. Activities that have aggravated her pain are twisting, pulling, pushing, sitting, stairs and lifting. Occasionally, she will use heat alternating with ice, which decreases her pain. Patient has had trouble sleeping and instead of using her trazodone, she has been using 20-30 mg of melatonin nightly, which has been very beneficial. Patient's REVIEW OF SYSTEMS / PAST MEDICAL HISTORY / ALLERGIES and IMAGES have been reviewed and noted on the chart. PHYSICAL EXAM: VITAL SIGNS: Blood pressure is 154/73. Heart rate is 80. Temperature is 97.3. She is 5' and weighs 87 kg. GENERAL IMPRESSION: Pleasant, appropriate, in no acute distress. FOCUSED EXAM - BACK: Range of motion is guarded in lateral rotation and flexion/extension. Paravertebral muscles are non-spasmodic. Minimal spinal axial pain along the lower lumbar facets to deep compression. Alireza's point mildly tender to the left with referral pain to the hip. MUSCULOSKELETAL: Slight vasomotor weakness noted to the right anterior tibialis. Extensors are intact. She does use a quad cane to ambulate. She does ambulate with a steady but antalgic gait. NEUROLOGICAL: Patchy hypoesthesia noted along the L5-S1 distribution to the right, to the level of the ankle. +1 bilateral patellar and Achilles reflexes. DIAGNOSIS: Lumbar radiculitis, chronic lower back pain and lumbar spinal canal stenosis. PLAN: We discussed a lumbar epidural steroid injection; however, the patient declines that. Instead, we will place her on a short burst of oral prednisone, which she does agree to. We will refill her Mirapex 0.5 mg q.h.s. We will see her in two months' time, unless otherwise indicated. Patient is in agreement.[id number] NoteCardiology Clinic Note Subjective Konrad Mobley is a 77 y.o. year old female patient being seen in follow-up for hypertension. She obtained an arm monitor and has been monitoring her BP at home which is predominantly in the 130s/70s with increase of Losartan and addition of HCTZ. She continues to feel well without cardiac concerns. Excited about first great grandchild and 60th high school reunion. Patient Active Problem List Diagnosis Closed fracture of orbital floor (blow-out) (CMS/HCC) Epiphora Fracture of orbit (CMS/HCC) Fracture of radial neck Obesity Hypertensive disorder Pain in elbow MANOLO (obstructive sleep apnea) Diabetes (CMS/HCC) Polyneuropathy Family History Problem Relation Name Age of Onset Diabetes Father Heart disease Father Coronary artery disease Father Coronary artery disease Brother Social History Tobacco Use Smoking status: Former Types: Cigarettes Quit date: 1999 Years since quittin.1 Smokeless tobacco: Never Substance Use Topics Alcohol use: Never Drug use: Never HPI: Ms. Mobley is a 76-year-old patient with a past medical history including resistant obstructive sleep apnea and hypertension who presents to cardiology clinic at the request of her primary care physician for assistance in management of blood pressure. 05/2022: Patient here for 1 mo follow up Hypertension. Noted increased renal function after starting aldactone for HTN- therefore we stopped aldactone and cut losartan in 08/16. Had repeat labs 05/18, after adding hydralazine 50mg bid and cutting losartan back to 50mg daily. Still denies chest pain and SOB. Feels good. Denied chest pain, shortness of breath, orthopnea, leg swelling. Reviewed b/p log and typically b/p is much better with a few outliers of 90/40 and up to 150/80 Review of Systems Cardiovascular: Negative for chest pain, claudication, dyspnea on exertion, irregular heartbeat, leg swelling, orthopnea, palpitations, paroxysmal nocturnal dyspnea and syncope. Musculoskeletal: Positive for arthritis. All other systems reviewed and are negative. Objective Visit Vitals BP 157/73 (BP Location: Left arm, Patient Position: Sitting) Pulse 79 Ht 1.524 m (5') Wt 87.1 kg (192 lb) SpO2 97% BMI 37.50 kg/m??? Smoking Status Former BSA 1.92 m??? Physical Exam General: Awake, alert, good spirits. NAD Pulm: Breath sounds clear to ascultation bilaterally with no wheeze, crackles or rhonchi Cards: Regular rate and rhythm, S1, S2. No S3 or S4 gallop. Murmur: none Abd: Soft, Nontender, physiologic bowel sounds are present Extr: Lower extremity edema: 1+. DP pulses:2+ Skin: warm, dry, well perfused Neuro: A&Ox3, No gross deficits Allergies Allergies Allergen Reactions Iodine Anaphylaxis Levofloxacin Medications Current Outpatient Medications: acarbose (Precose) 100 mg tablet, Take 1 tablet by mouth in the morning and at bedtime., Disp: , Rfl: amLODIPine (Norvasc) 10 mg tablet, Take 1 tablet (10 mg) by mouth in the morning., Disp: 90 tablet, Rfl: 3 aspirin 81 mg EC tablet, Take 1 tablet every day by oral route., Disp: , Rfl: baclofen (Lioresal) 10 mg tablet, Take 1 tablet by mouth at bedtime., Disp: , Rfl: carvedilol (Coreg) 25 mg tablet, Take 1 tablet by mouth in the morning and at bedtime., Disp: , Rfl: dulaglutide (Trulicity) 4.5 mg/0.5 mL pen injector, INJECT 1 PEN SUBCUTANEOUSLY ONCE WEEKLY, Disp: , Rfl: furosemide (Lasix) 40 mg tablet, Take 1 tablet by mouth in the morning., Disp: , Rfl: hydrALAZINE (Apresoline) 50 mg tablet, Take 1 tablet (50 mg) by mouth in the morning and at bedtime., Disp: 60 tablet, Rfl: 11 insulin detemir (Levemir FlexTouch U-100 Insuln) 100 unit/mL (3 mL) pen, INJECT 60 UNITS SUBCUTANEOUSLY IN THE MORNING, Disp: , Rfl: liothyronine (Cytomel) 25 mcg tablet, TAKE 1/2 (ONE-HALF) OF A TABLET BY MOUTH TWICE DAILY ON AN EMPTY STOMACH, Disp: , Rfl: losartan-hydrochlorothiazide (Hyzaar) 100-25 mg tablet, Take 1 tablet by mouth in the morning., Disp: 30 tablet, Rfl: 11 lovastatin (Mevacor) 20 mg tablet, Take 1 tablet by mouth at bedtime., Disp: , Rfl: metFORMIN (Glucophage) 1,000 mg tablet, Take 1 tablet by mouth with breakfast and with evening meal., Disp: , Rfl: naproxen (Naprosyn) 500 mg tablet, Take 1 tablet by mouth if needed in the morning and at bedtime., Disp: , Rfl: omeprazole (PriLOSEC) [address] capsule, Take 1 capsule by mouth in the morning., Disp: , Rfl: potassium chloride CR (Klor-Con M20) 20 mEq ER tablet, Take 1 tablet by mouth in the morning., Disp: , Rfl: QUEtiapine (SEROquel) 50 mg tablet, Take 1 tablet by mouth in the morning., Disp: , Rfl: traMADol (Ultram) 50 mg tablet, Take 2 tablets by mouth in the morning and at bedtime., Disp: , Rfl: blood pressure test kit-large kit, 1 kit in the morning., Disp: 1 kit, Rfl: 0 Recent Labs Sodium 141, potassium 4.2, chloride 103, CO2 30.3, glucose 119, BUN 13, creatinine 0.84, (more content not included)...[facility]02-14-2023 NotePatient here for 1 mo follow up hypertension and medication changes. She was started on hydrochlorothiazide and losartan was increased back up to 100mg daily. She had BMP on 09/07. Review of Systems Musculoskeletal: Positive for back pain. All other systems reviewed and are negative.[facility] 08-31-2022 NotebloUn[facility]01-17-2023 NotePatient here for 3 mo follow up hypertension. She was started on spironolactone in Apr, but it was then stopped due to increased renal function. Veronica Gillespie CNP then cut her losartan dose in half. She was started on hydralazine 50mg bid. Had BMP last week. Still denies chest pain, SOB, and any cardiac symptoms. Feels good and says her BP has been in the 150's-160's systolic. Review of Systems All other systems reviewed and are negative.[facility] 08-31-2022 NoteCardiology Clinic Note Subjective Konrad Mobley is a 77 y.o. year old female patient being seen in follow-up for hypertension. BP at home has been running in the 140s-160s/50s-70s. Her renal function improved following cessation of Spironolactone and reducing Losartan dose. She otherwise feels well without concerns. Patient Active Problem List Diagnosis Closed fracture of orbital floor (blow-out) (CMS/HCC) Epiphora Fracture of orbit (CMS/HCC) Fracture of radial neck Obesity Hypertensive disorder Pain in elbow MANOLO (obstructive sleep apnea) Diabetes ([facility]) Polyneuropathy Family History Problem Relation Name Age of Onset Diabetes Father Heart disease Father Coronary artery disease Father Coronary artery disease Brother Social History Tobacco Use Smoking status: Former Types: Cigarettes Quit date: 2000 Years since quittin.0 Smokeless tobacco: Never Substance Use Topics Alcohol use: Never Drug use: Never HPI: Ms. Mobley is a 76-year-old patient with a past medical history including resistant obstructive sleep apnea and hypertension who presents to cardiology clinic at the request of her primary care physician for assistance in management of blood pressure. 05/2022: Patient here for 1 mo follow up Hypertension. Noted increased renal function after starting aldactone for HTN- therefore we stopped aldactone and cut losartan in 08/16. Had repeat labs 05/18, after adding hydralazine 50mg bid and cutting losartan back to 50mg daily. Still denies chest pain and SOB. Feels good. Denied chest pain, shortness of breath, orthopnea, leg swelling. Reviewed b/p log and typically b/p is much better with a few outliers of 90/40 and up to 150/80 Review of Systems Cardiovascular: Positive for leg swelling. Negative for chest pain, claudication, dyspnea on exertion, irregular heartbeat, near-syncope, orthopnea, palpitations, paroxysmal nocturnal dyspnea and syncope. Musculoskeletal: Positive for arthritis. Objective Visit Vitals BP 179/86 (BP Location: Left arm, Patient Position: Sitting) Pulse 86 Ht 1.524 m (5') Wt 87.1 kg (192 lb) SpO2 97% BMI 37.50 kg/m??? Smoking Status Former BSA 1.92 m??? Physical Exam General: Awake, alert, good spirits. NAD Eyes: anicteric sclera. Non-injected conjunctiva. No xanthelasmas Neck: No elevated JVP. No carotid bruit Pulm: Breath sounds clear to ascultation bilaterally with no wheeze, crackles or rhonchi Cards: Regular rate and rhythm, S1, S2. No S3 or S4 gallop. Murmur: none Abd: Soft, Nontender, physiologic bowel sounds are present Extr: Lower extremity edema: 1+. DP pulses:2+ Skin: warm, dry, well perfused Neuro: A&Ox3, No gross deficits Allergies Allergies Allergen Reactions Iodine Anaphylaxis Levofloxacin Medications Current Outpatient Medications: acarbose (Precose) 100 mg tablet, Take 1 tablet by mouth in the morning and at bedtime., Disp: , Rfl: amLODIPine (Norvasc) 10 mg tablet, Take 1 tablet (10 mg) by mouth in the morning., Disp: 90 tablet, Rfl: 3 aspirin 81 mg EC tablet, Take 1 tablet every day by oral route., Disp: , Rfl: baclofen (Lioresal) 10 mg tablet, Take 1 tablet by mouth at bedtime., Disp: , Rfl: carvedilol (Coreg) 25 mg tablet, Take 1 tablet by mouth in the morning and at bedtime., Disp: , Rfl: dulaglutide (Trulicity) 4.5 mg/0.5 mL pen injector, INJECT 1 PEN SUBCUTANEOUSLY ONCE WEEKLY, Disp: , Rfl: furosemide (Lasix) 40 mg tablet, Take 1 tablet by mouth in the morning., Disp: , Rfl: hydrALAZINE (Apresoline) 50 mg tablet, Take 1 tablet (50 mg) by mouth in the morning and at bedtime., Disp: 60 tablet, Rfl: 11 insulin detemir (Levemir FlexTouch U-100 Insuln) 100 unit/mL (3 mL) pen, INJECT 60 UNITS SUBCUTANEOUSLY IN THE MORNING, Disp: , Rfl: liothyronine (Cytomel) 25 mcg tablet, TAKE 1/2 (ONE-HALF) OF A TABLET BY MOUTH TWICE DAILY ON AN EMPTY STOMACH, Disp: , Rfl: lovastatin (Mevacor) 20 mg tablet, Take 1 tablet by mouth at bedtime., Disp: , Rfl: metFORMIN (Glucophage) 1,000 mg tablet, Take 1 tablet by mouth with breakfast and with evening meal., Disp: , Rfl: naproxen (Naprosyn) 500 mg tablet, Take 1 tablet by mouth if needed in the morning and at bedtime., Disp: , Rfl: omeprazole (PriLOSEC) [address] capsule, Take 1 capsule by mouth in the morning., Disp: , Rfl: potassium chloride CR (Klor-Con M20) 20 mEq ER tablet, Take 1 tablet by mouth in the morning., Disp: , Rfl: QUEtiapine (SEROquel) 50 mg tablet, Take 1 tablet by mouth in the morning., Disp: , Rfl: traMADol (Ultram) 50 mg tablet, Take 2 tablets by mouth in the morning and at bedtime., Disp: , Rfl: blood pressure test kit-large kit, 1 kit in the morning., Disp: 1 kit, Rfl: 0 losartan-hydrochlorothiazide (Hyzaar) 100-25 mg tablet, Take 1 tablet by mouth in the morning., Disp: 30 tablet, Rfl: 11 Recent Labs Sodium 141, potassium 4.2, chloride 103, CO2 30.3, glucose 119, BUN 13, creatinine (more content not included)...[facility] 07-14-2022 NoteCONSULTATION CONSULTATION DATE: 07/14/2022 HISTORY OF PRESENT ILLNESS: This is a pleasant, 77-year-old female who returns to the clinic for a three month follow up for chronic lower back pain. At her last appointment on 04/08/2022, she was ordered a lumbar epidural steroid injection. The patient did not follow through with the procedure due to the requirement to do it under a local. The patient prefers anesthesia and is unable to have it. Today, she rates her pain 0/10 at rest, but will increase to 4/10 with physical activity. Standing, walking, bending, housework and ADLs do aggravate her pain across her lower back. She does have mild radiating pain that does go to the lateral aspect of her thighs, mid femur level. She does have restless leg syndrome and is currently on Mirapex 0.25 mg at h.s. Her PCP provides her tramadol 50 mg b.i.d. and baclofen 10 mg q.h.s. The patient states she has not been sleeping well throughout the night due to her restless legs. She denies any new falls or injury. She has had trialed Lyrica and gabapentin in the past, and she did not tolerate it well, as it resulted in a fall. Patient's REVIEW OF SYSTEMS / PAST MEDICAL HISTORY / ALLERGIES and IMAGES have been reviewed and noted on the chart. PHYSICAL EXAM: VITAL SIGNS: Blood pressure 159/70, heart rate is 89. Temperature is 97.1. She is 5' tall and weighs 90.4 kg. GENERAL APPEARANCE: Pleasant, appropriate, no acute distress. FOCUSED EXAM - BACK: Range of motion is functional in lateral rotation and flexion/extension. No reproduction of spinal axial pain upon deep compression of L3, L4, L5 facets bilaterally. Alireza's point is mildly tender bilaterally with mild pain that does not radiate below the knees. FABERs and compression tests are negative. MUSCULOSKELETAL: Slight vasomotor weakness noted along bilateral anterior tibialis. Extensors are intact. Patient does not use assistive device to ambulate. NEUROLOGICALLY: Patient does have diffuse polyneuropathy to the level of her toes bilaterally. +1 bilateral patellar reflexes. Patient is cognitively intact. DIAGNOSIS: Lumbar radiculitis, lumbar spinal canal stenosis and insomnia. PLAN: We will increase her Mirapex 0.5 mg q.h.s. and we will start trazodone 100 mg q.h.s. for sleep. Patient agrees with this plan of care and will be seen in the clinic in three months' time unless otherwise indicated.[facility] [id number] Evaluation note* Encounter Date Diagnosis Assessment Notes Treatment Notes Treatment Clinical Notes Jun, Obstructive sleep apnea (ICD-10 - G47.33) Patient was encouraged to continue regular use of CPAP as before, discussed chronic insomnia associated with sleep apnea and treatment options today at length as well Jun, Chronic insomnia (ICD-10 - F51.04) Treatment options, including amitriptyline, indications, benefits and potential side effects were all discussed today [facility] Other 10-18-2022 NoteContinue to wear cpapUnNorwalk [facility] Hospital10-18-2022 NoteContinue amlodipine 10 mg daily- she recently ran out of 10 mg and this morning took 5 mg tablet she had from previous script. Continue coreg 25 mg bid, lasix 40 mg daily, losartan 50 mg daily and hydralazine 50 mg po bid.[facility]10-18-2022 Note Subjective Konrad Mobley is a 77 y.o. female. Chief Complaint: Patient here for 1 mo follow up Hypertension. Had labs 05/18, after adding hydralazine 50mg bid and cutting losartan back to 50mg daily. Still denies chest pain and SOB. Feels good. Spironolactone was also discontinued at last apt. Review of Systems All other systems reviewed and are negative. Objective Physical Exam Vital Signs There were no vitals taken for this visit. Lab Review: Assessment/Plan There were no encounter diagnoses.[facility]10-18-2022 NoteHPI: Konrad Mobley is a 77 y.o. female here for Hypertension HPI Patient here for 1 mo follow up Hypertension. Noted increased renal function after starting aldactone for HTN- therefore we stopped aldactone and cut losartan in 08/16. Had repeat labs 05/18, after adding hydralazine 50mg bid and cutting losartan back to 50mg daily. Still denies chest pain and SOB. Feels good. Denied chest pain, shortness of breath, orthopnea, leg swelling. Reviewed b/p log and typically b/p is much better with a few outliers of 90/40 and up to 150/80 Review of Systems All other systems reviewed and are negative. Visit Vitals BP 156/66 (BP Location: Left arm, Patient Position: Sitting) Pulse 79 Ht 1.524 m (5') Wt 90.3 kg (199 lb) SpO2 99% BMI 38.86 kg/m??? Smoking Status Former BSA 1.96 m??? Medications: Current Outpatient Medications on File Prior to Visit Medication Sig Dispense Refill acarbose (Precose) 100 mg tablet Take 1 tablet by mouth in the morning and at bedtime. amLODIPine (Norvasc) 10 mg tablet Take 1 tablet by mouth in the morning. aspirin 81 mg EC tablet Take 1 tablet every day by oral route. baclofen (Lioresal) 10 mg tablet Take 1 tablet by mouth at bedtime. carvedilol (Coreg) 25 mg tablet Take 1 tablet by mouth in the morning and at bedtime. dulaglutide (Trulicity) 4.5 mg/0.5 mL pen injector INJECT 1 PEN SUBCUTANEOUSLY ONCE WEEKLY furosemide (Lasix) 40 mg tablet Take 1 tablet by mouth in the morning. hydrALAZINE (Apresoline) 50 mg tablet Take 1 tablet (50 mg) by mouth in the morning and at bedtime. 60 tablet 11 insulin detemir (Levemir FlexTouch U-100 Insuln) 100 unit/mL (3 mL) pen INJECT 60 UNITS SUBCUTANEOUSLY IN THE MORNING liothyronine (Cytomel) 25 mcg tablet TAKE 1/2 (ONE-HALF) OF A TABLET BY MOUTH TWICE DAILY ON AN EMPTY STOMACH losartan (Cozaar) 100 mg tablet Take 1 tablet by mouth in the morning. lovastatin (Mevacor) 20 mg tablet Take 1 tablet by mouth in the morning. metFORMIN (Glucophage) 1,000 mg tablet Take 1 tablet by mouth with breakfast and with evening meal. naproxen (Naprosyn) 500 mg tablet Take 1 tablet by mouth if needed in the morning and at bedtime. omeprazole (PriLOSEC) [address] capsule Take 1 capsule by mouth in the morning. potassium chloride CR (Klor-Con M20) 20 mEq ER tablet Take 1 tablet by mouth in the morning. QUEtiapine (SEROquel) 50 mg tablet Take 1 tablet by mouth in the morning. spironolactone (Aldactone) 25 mg tablet Take 1 tablet (25 mg) by mouth in the morning. 30 tablet 5 traMADol (Ultram) 50 mg tablet Take 2 tablets by mouth in the morning and at bedtime. No current facility-administered medications on file prior to visit. Physical Exam: Constitutional: Appearance: Normal appearance. Without apparent distress HENT: Head: Normocephalic and atraumatic. Nose: Nose normal. Mouth/Throat: Mouth: Mucous membranes are moist. Eyes: Extraocular Movements: Extraocular movements intact. Conjunctiva/sclera: Conjunctivae normal. Neck: Vascular: No JVD. Cardiovascular: Rate and Rhythm: Normal rate and regular rhythm. Pulses: Dorsalis pedis pulses are 2 on the right side and 2on the left side. Posterior tibial pulses are 2 on the right side and 2 on the left side. Heart sounds: Normal heart sounds, S1 normal and S2 normal. Pulmonary: Effort: Pulmonary effort is normal. Breath sounds: Normal breath sounds. Abdominal: General: Bowel sounds are normal. Palpations: Abdomen is soft. Musculoskeletal: General: Normal range of motion. Cervical back: Normal range of motion. Right lower leg: No edema. Left lower leg: No edema. Skin: General: Skin is warm and dry. Capillary Refill: Capillary refill takes less than 2 seconds. Neurological: General: No focal deficit present. Mental Status: She is alert and oriented to person, place, and time. Psychiatric: Mood and Affect: Mood normal. Behavior: Behavior normal. Thought Content: Thought content normal. Judgment: Judgment normal. Labs: 05/10/22 BUN 28, CR 1.47 up from 0.85 on 11/03/21 05/18/22 BUN 23, CR 1.22 K+ 4.7- slightly improved CV Testin08/19/21 Echo Assessment/Plan: Hypertensive disorder Continue amlodipine 10 mg daily- she recently ran out of 10 mg and this morning took 5 mg tablet she had from previous script. Continue coreg 25 mg bid, lasix 40 mg daily, losartan 50 mg daily and hydralazine 50 mg po bid. MANOLO (obstructive sleep apnea) Continue to wear cpap RTC 3 months with repeat BMP for renal functionUnNorwalk Memorial Hospital09-26-2022 NoteI spoke with patient and informed her of medication changes per Veronica Gillespie CNP. RX sent to [facility] and BMP faxed to [facility]. Patient verbalized understanding. [facility]09-14-2022 NoteF/U with PCP for further managementUnNorwalk [facility] Hospital09-14-2022 NoteHypertension remains uncontrolled, will add aldactone 25 mg daily to regime, continue amlodipine 10 mg every day, coreg 25 mg bid, losartan 100 mg every day, lasix 40 mg daily. Repeat BMP in 1 week to evaluate renal function and K+ level Blood pressure will be reassessed in 2 weeks- staff will call pt and RTC 3 months Reviewed labs 11/03/21 BUN 15, CR 0.85 normal K+ 4.8 normalUnNorwalk Memorial Hospital09-14-2022 NoteAdded in error and don't know how to get rid of itUnNorwalk [facility] Hospital08-25-2022 NoteCONSULTATION CONSULTATION DATE: 04/08/2022 HISTORY OF PRESENT ILLNESS: This is a pleasant, 76-year-old female returning to the clinic for a two month follow up for chronic right lower back and buttock pain. Today, she rates her pain 8/10 and describes it as achy and throbbing. She has radicular pain down the posterior aspect from her right hip to her right ankle. She does ambulate with a slow gait. She states she has had company for the past two weeks and has been very active with them, which has aggravated her pain. Standing, waking, lifting, housework and stairs aggravate her pain. She does not use heat or ice at this time, as she states it does not help her any more. She has had a successful lumbar epidural steroid injection on 01/26/2022 that gave her 90% relief for approximately three weeks. Current medications include Naprosyn 500 mg daily, baclofen 10 mg q.h.s., melatonin, Seroquel and tramadol 100 mg b.i.d. She was on Mirapex 0.25 mg q.h.s. in the past, has since run out and did not understand that she could have refills. She does have cramping in her legs during the night. She denies any new radicular pain or pain pattern. She does have patchy hypoesthesia to the right lower extremity. Patient's REVIEW OF SYSTEMS / PAST MEDICAL HISTORY / ALLERGIES and IMAGES have been reviewed and they are noted on the chart. PHYSICAL EXAM: VITAL SIGNS: Blood pressure 142/67, heart rate is 79. She is 5' tall and weighs 87.7 kilos. GENERAL APPEARANCE: Pleasant, appropriate, no acute distress. FOCUSED EXAM - BACK: Range of motion is guarded in lateral rotation and flexion/extension. Reproduction of patient's spinal axial pain to compression along T12, L1 and L2, L3 bilaterally, right greater than left. Paravertebral muscles are taut but non-spasmodic. Alireza's point is non-tender. Negative FABERs or compression test. MUSCULOSKELETAL: Muscle weakness noted to right lower extremity anterior tibialis and extensor digitorum longus, peroneus longus. Motor to the right 3/5, to the left is 4/5. NEUROLOGICALLY: +1 patellar and Achilles reflexes bilaterally. Patchy hypoesthesia noted along L5-S1 to the right to the level of the ankle. IMPRESSION: Lumbar spinal canal stenosis, lumbar radiculitis, lumbar degenerative disc disease and peripheral neuropathy. PLAN: The patient has tried Lyrica and gabapentin in the past and did not like the side effects of it so, therefore, she would not like to be placed on that. We will restart her on Mirapex 0.25 mg q.h.s. I discussed serial epidural steroid injections during the colder weather and the patient was intrigued by that. We will look ahead to early May to do a lumbar epidural steroid injection at the level of L1, L2. Patient is to continue with her tramadol and baclofen as well as her multivitamin regimen. Patient agrees with this plan of care and will be followed up in the office post procedure in May.[facility] [id number] NoteCONSULTATION CONSULTATION DATE: 02/10/2022 HISTORY OF PRESENT ILLNESS: This is a very pleasant and active 76-year-old female, returning to the clinic status post lumbar epidural steroid injection completed on 01/26/2022 that afforded her 90% relief. Shortly after receiving the injection, patient increased her activity and went grocery shopping to two separate stores. Since that increased activity, the patient feels that she is back to her baseline of pain. Her level today is 8/10, described as sore, stiff with radiating pain down bilateral lower extremities. The patient also has diabetic peripheral neuropathy. Current medications include tramadol 100 mg b.i.d., Seroquel for sleep, multivitamin regimen and Ambien. The patient is trending herself off of Ambien at this time. She has tried gabapentin and Lyrica in the past, which she was unable to tolerate for her radicular pain. She was placed on Mirapex 0.[address] Garcia at her last appointment for symptoms of restless leg. Patient feels it has been helpful. Activities such as twisting, housework, stairs and bending aggravate her pain. She does use ice in the evening, which she does not report it being of much benefit. Patient's REVIEW OF SYSTEMS / PAST MEDICAL HISTORY / ALLERGIES and IMAGES have been reviewed and they are noted on the chart. PHYSICAL EXAM: VITAL SIGNS: Blood pressure 135/62, heart rate is 83. Temperature is 97.8. She is 5'0 and weighs 86 kg. GENERAL APPEARANCE: Pleasant, appropriate, no acute distress. FOCUSED EXAM - BACK: Range of motion is decreased and guarded in lateral rotation and flexion/extension. Spinal axial pain is reproduced with direct compression over the upper lumbar facets of T12, L1, L2 bilaterally. Paravertebral muscles are taut but non-spasmodic. Alireza's point is negative. MUSCULOSKELETAL: Motor is intact, 4/5 bilaterally. Patient does have diffuse muscle atrophy to her lower extremities. She does walk with an antalgic gait and with the assist of a cane. Gait is stable. NEUROLOGICAL: Diffuse peripheral neuropathy to bilateral lower extremities and feet. Blunted bilateral patellar and Achilles reflexes. IMPRESSION: Lumbar spinal canal stenosis, failed back syndrome, lumbar degenerative disc, lumbar spondylosis and peripheral neuropathy. PLAN: After discussing with the patient, it was agreed that she will start baclofen 10 mg q.h.s. as well as use naproxen 500 mg b.i.d. p.r.n. for inflammatory pain. Education was given regarding the use of ice and the patient is to use menthol heat rub and a heat source daily. She is to currently continue her Mirapex as well. I did discuss the proposed medial branch block procedures with the patient that was suggested by Dr. Garcia, and patient prefers to hold off at this time to evaluate the efficacy of her two new medications. She will be brought back to the clinic in two months' time for re-evaluation. Patient agrees with the plan of care and all questions answered. [facility] Signed and Approved by: BETZAIDA ZIMMER . 02/11/2022 13:38:[address]22-2022 NoteCONSULTATION PAIN MANAGEMENT CONSULTATION CHIEF COMPLAINT: Low back pain, bilateral leg pain. HISTORY OF PRESENT ILLNESS: This is a 76-year-old female who has chronic leg pain. The patient recently had an x-ray which she has come to review. The x-ray shows failure of the discs above her fusion site, at the level of L2-L3 and L1-L2. The patient is fused from L2 through S1. The patient also has bilateral leg pain. The patient had three nerves released by Dr. Branch, tin plater, in 2002. She states the pain has been increased subsequent to that. She has difficulty with the pain, especially at night. She gives symptomatology consistent with RLS. The patient describes the pain as an 8/10, an aching sensation. Sitting, standing, walking aggravate the pain, and in the evening, the pain becomes worse at night time, where she has significant difficulty sleeping. The patient was recently seen by Dr. Bowers and was prescribed Ambien to help her with her sleep. The patient's PAST MEDICAL HISTORY / SURGICAL HISTORY / REVIEW OF SYSTEMS are noted on the chart, along with the MEDICATION LIST / ALLERGIES and RADIOLOGICAL IMAGES. PHYSICAL EXAM: Upon physical examination, this is a pleasant, well groomed, 76-year-old female who does not appear to be in any acute distress. The patient ambulates with a cane. Vital Signs: 157/73 with a heart rate of 74. At a height of 5', the patient weighs 86 kg. Focused Evaluation: Global atrophy of the muscles are noted in the lower extremities bilaterally. The patient has a forward flexed posture. Extension, compression, direct palpation along the thoracolumbar junction aggravate and reproduce a component of the patient's pain symptomatology. The patient cries out in a non-physiological manner. Extremities: No pedal edema is noted. Polyneuropathy of the lower extremity is present bilaterally. The patient is a diabetic. Neurological: No neuritis/radiculitis is noted; however, it is hard to ascertain given the patient's hypoesthesia in the legs. Musculoskeletal: 4+ bilaterally. IMPRESSION: Current working diagnosis on the patient is lumbar neuritis, lumbar spinal canal stenosis with nocturnal claudication, restless leg syndrome. Failed above the lumbar fusion with lumbar degenerative disc disease, lumbar spondylosis. PLAN: We will start the patient on Mirapex 0.25 mg q.p.m. In addition to this, the patient will have a lumbar epidural steroid injection under fluoroscopy. Education was done on the patient. Subsequent to improving the dysesthesia, pain in the lower extremity, which is a major complaint for the patient's pain, she would like to have the low back addressed. The patient understands and would like to proceed. CC: Dr. Bowers [facility] Signed and Approved by: DR SERENITY GARCIA . 11/17/2021 11:24:00[facility] noteNort Eventstagr.am Other Evaluation noteNo assessment information available [facility] Work Phone: Evaluation note* Diagnosis Failed back syndrome Other unspecified back disorder documented in this encounter [facility]History [facility] Narrative - [facility]Nos[facility] Eventstagr.am Other History general Narrative - Reported* Type Description Date Medical History HTN Medical History DM2 Medical History Osteoporosis Medical History Neuropathy Medical History hyperlipedemia Medical History Hot Flashes/Sweats Medical History copd Medical History MANOLO (obstructive sleep apnea) Surgical History Back surgery x 2 Surgical History JORGE 1992 Surgical History cholecystectomy 1977 Surgical History septoplasty 1970 Surgical History cataract surgery Surgical History eyes surgery Surgical History facial cosmetic surgery Surgical History HYSTERECTOMY Surgical History tonsillectomy Hospitalization History Heart Attack 2012 Hospitalization History see above [place] Other Chief Complaint and Reason for Visit Chief Complaint Sleep apnea annual f ollow up Advance Directives No Advanced Directives Records Found Advance Directive Response Recorded Date/ Time Advance Directives No May 25, 2017 2:32pm Summary Purpose Family History No Family History Records FoundNo Family History Records FoundNo Family History Records FoundNo Family History Records FoundNo Family History Records Found Additional Source Comments Care Teams (unrecognized sec tion and content) Team Status: Inactive Member Role Status Dates Abdullahi Acosta MD Attending Provider Active Kofi Bowers II MD Primary Care Provider Active Team Status: Active Member Role Status Dates Kofi Bowers II MD Primary Care Provider Active Team Status: Inactive Member Role Status Dates Kofi Bowers II MD Primary Care Provider Active Abdullahi Acosta MD Attending Provider Active Ring Conductor Relationship Specialty Start Date End Date Kofi Bowers MD [address] [facility] [address] [place] [id number] PCP - General Internal Medicine 12/22/22 Goals (unrecognized section and content) Goals may be documented in a n alternate sectionNo InformationGoals may be documented in an alternate sectionNo Information REASON FOR VISIT (unrecogniz ed section and content) Reason Onset Date Comments Med Refill 09/29/2023 TRAMADOL DRUG MA RT GAIL INFORMATION SOURCE (unrecogn ized section and content) DATE CREATED AUTHOR 10/19/2022 [facility] DATE CREATED AUTHOR AUTHOR'S ORGANIZ ATION 01/27/2023 [place] DATE CREATED AUTHOR AUTHOR'S ORGANIZ ATION 09/23/2023 [facility] DATE CREATED AUTHOR AUTHOR'S ORGANIZ ATION 03/20/2024 [facility] DATE CREATED AUTHOR AUTHOR'S ORGANIZ ATION 04/10/2024 [facility] FOR RECORDS PERTAINING TO PATIENTS WHO ARE OR HAVE BEEN ENROLLED IN A CHEMICAL DEPENDENCY/SUBSTANCEABUSE PROGRAM, SOME INFORMATION MAY BE OMITTED. This clinical summary was aggregated from multiple sources. Caution should be exercised in using it in the provision of clinical care. This summary normalizes information from multiple sources, and as a consequence, information in this document may materially change the coding, format and clinical context of patient data. In addition, data may be omitted in some cases. CLINICAL DECISIONS SHOULD BE BASED ON THE PRIMARY CLINICAL RECORDS. [employer] [facility]. provides no warranty or guarantee of the accuracy or completeness of information in this document.
--- NOTE | 2024-05-10 12:43 | PM.CN ---
Consult Note: HPI Data of Consult Patient: new to practice Requesting Physician: Zoila Kenyon NP Primary Care Provider: BELEN ZALDIVAR Consult Narrative Reason for consult: low back pain Narrative: Cece Mobley a pleasant 79 year old female presents for evaluation and management of chronic low back pain and lumbar radiculopathy with twitching jerking of bilateral feet, hx of lumbar and thoracic fusion at unknown levels, pt states she has two cages. Patient has an extensive hx of low back pain and lumbar radiculopathy, as well as painful diabetic neuropathy unresponsive to >6 weeks of PT, NSAIDs, tylenol. Patient is under the care of Dr Hylton and PCP Dr Hernandez at this time. Patient finds moderate-significant relief from tylenol and tramadol 50-100mg BID PRN. Patient has had trouble with gabapentin and lyrica in the past due to balance issues. Denies loss of bowel/bladder. notable numbness tingling to bilateral feet. no recent imaging available, hx of EMG with unknown results per pt. Pain today 2/10, increasing to 8/10 without medications, with sleep, twisting, lifting, and housework. Pain improved with medications and walking. cc:: CC: Zoila Kenyon NP Review of Systems ROS Status of ROS 10 or more systems reviewed and unremarkable except as noted in history and below Musculoskeletal Reports: back pain, extremity pain and extremity swelling PFSH PFSH Social History Smoking status: Never smoker Meds Home Medications and Allergies Home Medications ?Medication ?Instructions ?Recorded ?Confirmed ?Type acarbose 100 mg tablet 100 mg PO BID 10/19/23 10/19/23 History amlodipine 10 mg tablet 10 mg PO DAILY 10/19/23 10/19/23 History aspirin 81 mg capsule 81 mg PO DAILY 10/19/23 10/19/23 History carvedilol 25 mg tablet 25 mg PO BID 10/19/23 10/19/23 History dulaglutide 4.5 mg/0.5 mL 4.5 mg subcut .weekly 10/19/23 10/19/23 History subcutaneous pen injector (Trulicity) eszopiclone 3 mg tablet 3 mg PO BEDTIME 10/19/23 10/19/23 History furosemide 40 mg tablet 40 mg PO DAILY 10/19/23 10/19/23 History insulin detemir U-100 100 unit/mL 60 unit subcut DAILY 10/19/23 10/19/23 History (3 mL) subcutaneous pen (Levemir FlexPen) liothyronine 25 mcg tablet 25 mcg PO BID 10/19/23 10/19/23 History loratadine 10 mg tablet 10 mg PO DAILY PRN allergic 10/19/23 10/19/23 History symptoms losartan 100 1 tab PO DAILY 10/19/23 10/19/23 History mg-hydrochlorothiazide 25 mg tablet lovastatin 20 mg tablet 20 mg PO DAILY 10/19/23 10/19/23 History metformin 1,000 mg tablet 1,000 mg PO BID 10/19/23 10/19/23 History omeprazole 20 mg capsule,delayed 20 mg PO DAILY 10/19/23 10/19/23 History release potassium chloride 20 mEq 20 meq PO DAILY 10/19/23 10/19/23 History tablet,extended release pramipexole 0.5 mg tablet 0.5 mg PO DAILY 10/19/23 10/19/23 History quetiapine 50 mg tablet 50 mg PO DAILY 10/19/23 10/19/23 History tramadol 50 mg tablet 50 mg PO Q6H PRN pain 10/19/23 10/19/23 History Allergies Allergy/AdvReac Type Severity Reaction Status Date / Time iodine Allergy Verified 10/19/23 19:58 levofloxacin [From Levaquin] Allergy Verified 10/19/23 19:58 Exam Constitutional Documenting provider has reviewed patient's vital signs: yes Common normals: no apparent distress, oriented x3, healthy appearing, alert and well nourished General appearance: cooperative [facility] Common normals: normocephalic, hearing grossly normal bilaterally and moist oral mucous membranes Head and scalp: normocephalic Eye Common normals: PERRL Pupil: PERRL Neck & C-Spine Common normals: full ROM General: normal visual inspection Chest Common normals: inspection of chest normal Respiratory Common normals: normal respiratory effort, no retractions and no use of accessory muscles Back & Pelvis Thoracic spine/upper back: thoracic ROM normal, pain with ROM and thoracic spinal tenderness Lumbar spine/lower back: lumbar ROM normal, pain with ROM, lumbar spinal tenderness and straight leg raise negative bilaterally Sacroiliac joints: SI joints normal Other: altered sensation to bilateral feet, edema to BLE left greater than right unable to produce radicular pain on exam BLE 5/5 strength Extremity Common normals: normal to inspection and full ROM Neuro Common normals: oriented x3, CN's II-XII intact bilaterally, moves all extremities, no focal motor deficits, no sensory deficits noted, deep tendon reflexes 2+ bilaterally and gait normal Sensorium/orientation: alert Motor exam: strength 5/5 throughout and no movement abnormalities noted Psych Common normals: mental status grossly normal, thought process normal, cooperative, affect normal, speech normal and activity/motor behavior normal Speech: normal speech Thought process: normal thought process Results Additional Findings Additional findings: If on a controlled substance or opioids, I have checked an [place] report on this patient and there are no aberrancies noted in the prescribing history.??If on a controlled substance or opioid a drug screen was completed and reviewed within the last year, and if there has not been a drug screen completed we ordered one today to monitor higher risk, state monitored pain medication use. As part of providing excellent, safe, comprehensive care, the following was completed at our patient's visit: 1. A medication reconciliation and review to ensure accurate knowledge of current/active medications, including asking our patients to inform us about any [id number] medications or herbal remedies/nutritional supplements/alternative remedies. 2. A review to specifically ensure our patients have had annual screening for screening for depression, screening for tobacco use, and screening for unhealthy alcohol use. For concerning screenings had a discussion with the patient, provided patient education, and recommended follow-up with primary care provider when appropriate. If patient noted with a risk of falling, they received education on strength, gait, and balance training to prevent future risk of falling. Assessment and Plan Assessment and Plan (1) Failed back syndrome: (2) History of thoracic spinal fusion: (3) History of lumbar fusion: (4) Painful diabetic neuropathy: Plan update thoracic and lumbar xray to evaluate chronic back pain update thoracic and lumbar MRI without contrast to evaluated failed back syndrome post thoracic and lumbar fusion patient interested in spinal cord stimulator trial, reports between back surgeries she had a stimulator implanted for 3 months with significant improvement in pain extensive current medication list, continue medications through PCP at this time due to risks of polypharmacy f/u to review imaging, could consider lumbar TFESIs but with patients surgical hx and DPN she may benefit more from a spinal cord stimulator as discussed
== END 2024-05-10 12:25 | disposition home or self-care (01) ==
LOC: PM 12:24
PROVIDERS: PCP Internal Medicine; Visit Provider Nurse Practitioner
DX: M96.1 Postlaminectomy syndrome, not elsewhere classified (principal); M54.16 Radiculopathy, lumbar region; Z98.1 Arthrodesis status; E11.40 Type 2 diabetes mellitus with diabetic neuropathy, unspecified
CPT/HCPCS: 72070; 72110; G0463

== ENCOUNTER 2024-05-10 13:12 | Outpatient (OUT) | payer MEDICARE, SELFPAY ==
--- OUTSIDE RECORDS SUMMARY | 2024-05-10 13:18 | XMS_ITS | CCD ---
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 Name Role Phone Olamide Ching Unavailable MD Abdullahi Acosta Attending Provider [phone] MONI Bowers Primary Care Provider [phone] Abdullahi Acosta Unavailable NADIYA GILLESPIE Consulting Unavailable [...] Barahona Attending Unavailable GARCIA ., DR SERENITY Barahoan Admitting Unavailable BOWERS, DR GLOVER Primary Care [...] (3 sources) Gemfibrozil Drug Allergy muscle atrophy [employer] [facility] Other (6 sources) Iodine; Translations: [IODINE] Drug Allergy 11-24-19 19 anaphylaxis, Shortness of breath [facility] Repository (5 sources) levoFLOXacin; Translations: [Levaquin] Drug Allergy 11-17-19 16 tendonopathy [facility] Repository (6 sources) levoFLOXacin; Translations: [LEVOFLOXACIN] Drug Allergy 06-15-20 18 Other [facility] (1 source) Iodine and Iodide Containing Produc Allergy to substance 06-13-20 18 Unknown Reaction [facility] (2 sources) hydrALAZINE Drug Allergy 11-18-19 16 [facility] (1 source) Iodine Drug Allergy 07-31-20 15 [facility] Repository (2 sources) pregabalin; Translations: [PREGABALIN] Drug Allergy 02-25-20 21 Dizziness [facility] Repository (1 source) SHELLFISH CONTAINING PRODUCTS; Translations: [SHELLFISH CONTAINING PRODUCTS] Propensity to adverse reactions to drug (disorder) 01-25-20 14 [facility] Repository (2 sources) Iodinated Contrast Media; Translations: [Iodinated Contrast Media] Allergy to substance 08-19-19 23 Unknown Reaction [facility] (1 source) Gemfibrozil Drug Allergy 06-27-20 23 [facility] Repository (1 source) Iodine Drug Allergy 06-27-20 23 [facility] Repository (1 source) Shellfish Allergy to [...] Active Start: 06-13-2018 take 1 tablet by ajvi th twice daily Acarbose Active 1 TAB [...] Vitamin D cholecalciferol (Vitamin D-3) 1.25 MG (74232 UT) tablet Vitamin D3 5000IU 0 Active [...] two times daily. D.A.W. as Sigma or [employer] Brand ONLY for 90 days 200 tablet [...] 12, 2018 11:00pm take 2 tablets by [facility] every twenty-four hours Toprol XL 50 MG 2 tablet Orally Once a day Active Metoprolol Succi florencio Active take 2 tablets by [facility] every twenty-four hours Multivitamin preparation (3 sources) [...] 2018 11:00pm take 1 capsule by mo [facility] once daily PriLOSEC 20 MG 1 capsule Orally Once a day for 30 day(s) Active take 1 capsule by [facility] every twenty-four hours microencapsulated potassium chloride 20 [...] (3 sources) take 1 capsule by mo [facility] once daily Vitamin E 400 UNIT 1 [...] 03-11-2023 03-11-2023 Episodic Other aftercare (1 source) half-way (current) use of insulin; Translations: [SKILLED NURSING CURRENT USE OF INSULIN] Onset: 01-27-2022 Episodic Other aftercare (1 source) 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; Translations: [WORKING SECOND HAND CURRENT USE OF ASPIRIN] Onset: 01-07-2022 Episodic Other aftercare (1 source) intermodal dispatcher (current) use of oral hypoglycemic drugs; Translations: [WORKING SECOND HAND USE ORAL HYPOGLYCEMIC DX] Onset: 01-07-2022 Episodic Other aftercare (1 source) Other technician terminal and repeater (current) drug therapy; Translations: [OTH SKILLED NURSING CURRENT DRUG THERAPY] Onset: 01-07-2022 Episodic Other aftercare (1 source) Long-term current use of insulin; Translations: [half-way (current) use of insulin] Onset: 01-28-2016 03-11-2023 [...] Follow-up in 3 months as planned. Thanks [facility] Office Visiton 01-03-2023 Follow-up visit [id number] Konrad Mobley 1945 Provider Department Center 01/03/2023 URI STERN Family History Problem Relation Age of Onset Diabetes Father Heart disease Father Coronary artery disease Father Coronary artery disease Brother Family Status - Relation Status Age at Father Brother Level of Service:42190 [place] OFFICE/OUTPATIENT ESTABLISHED LOW MDM 20-29 MIN Reason for Visit and Comments: Medication Problem [65] [facility] Office Visiton 09-28-2022 Follow-up visit [id number] Konrad Mobley 1945 Provider Department Center 09/28/2022 [id number] PILLAI Family History Problem Relation Age of Onset Diabetes Father Heart disease Father Coronary artery disease Father Coronary artery disease Brother Family Status - Relation Status Age at Father Brother Level of Service:35633 [place] OFFICE/OUTPATIENT ESTABLISHED LOW MDM 20-29 MIN Reason for Visit and Comments: Hypertension [904291] Normal [facility] PROF CHEM 8 (BAS METB)on Anion gap [Moles/Vol] 11.6 mmol/L Normal [facility] Comment on above: Performed By: #### B MP #### [facility] [address] [address] [address] Rose Chadwick Calcium [Mass/Vol] 9.4 mg/dL Normal 8.5-10.1 [facility] Comment on above: Performed By: #### B MP #### [facility] [address] [address] [address] Rose Chadwick Chloride [Moles/Vol] 101 mmol/L Normal 98-107 [facility] Comment on above: Performed By: #### B MP #### [facility] [address] [address] [address] Rose Chadwick CO2 [Moles/Vol] 32.6 mmol/L Critically high 21.0-32.0 [facility] Comment on above: Performed By: #### B MP #### [facility] [address] [address] [address] Rose Chadwick Creatinine [Mass/Vol] 0.86 mg/dL Normal 0.55-1.02 [facility] Comment on above: Performed By: #### B MP #### [facility] [address] [address] [address] Rose Chadwick EGFR-AF SOLOM[place] ISLANDER >60 Normal >=60 [facility] Comment on above: Performed By: #### B MP #### [facility] [address] [address] [address] Rose Chadwick EGFR-NON AF [place] ISLANDER >60 Normal >=60 [facility] Comment on above: Performed By: #### B MP #### [facility] [address] [address] [address] Rose Chadwick Glucose [Mass/Vol] 108 mg/dL Critically high 74-106 [facility] Comment on above: Performed By: #### B MP #### [facility] [address] [address] [address] Rose Chadwick Potassium [Moles/Vol] 4.2 mmol/L Normal 3.5-5.1 [facility] Comment on above: Performed By: #### B MP #### [facility] [address] [address] [address] Rose Chadwick Sodium [Moles/Vol] 141 mmol/L Normal 136-145 [facility] Comment on above: Performed By: #### B MP #### [facility] [address] [address] [address] Rose Chadwick Urea nitrogen [Mass/Vol] 15.0 mg/dL Normal 7.0-18.0 [facility] Comment on above: Performed By: #### B MP #### [facility] [address] [address] [address] Rose Chadwick Urea nitrogen/Creatinine [Mass ratio] 17.4 mg/mg Normal [facility] Comment on above: Performed By: #### B MP #### [facility] [address] [address] [address] Rose Chadwick 37on 08-31-2022 37 -Obtain an arm BP monitor, Omron brand is preferred -Check blood pressure at least once daily 2-3 hours after taking medications - Stop taking Losartan -Start taking Losartan-hydrochloro thiazide -Check labs in 1 week Normal [facility] Office Visiton 08-31-2022 Follow-up visit [id number] Konrad Mobley 1945 F Date Provider Department Center 08/31/2022 [id number] DEL TORO [facility] Family History Problem Relation Age of Onset Diabetes Father Heart disease Father Coronary artery disease Father Coronary artery disease Brother Family Status - Relation Status Age at Father Brother Level of Service:90480 [place] OFFICE/OUTPATIENT ESTABLISHED LOW MDM 20-29 MIN Reason for Visit and Comments: Hypertension [099670] Normal [facility] PROF CHEM 8 (BAS METB)on Anion gap [Moles/Vol] 11.9 mmol/L Normal [facility] Comment on above: Performed By: #### B MP #### [facility] [address] [address] [address] Rose Chadwick Calcium [Mass/Vol] 9.0 mg/dL Normal 8.5-10.1 [facility] Comment on above: Performed By: #### B MP #### [facility] [address] [address] [address] Rose Chadwick Chloride [Moles/Vol] 103 mmol/L Normal 98-107 [facility] Comment on above: Performed By: #### B MP #### [facility] [address] [address] [address] Rose Chadwick CO2 [Moles/Vol] 30.3 mmol/L Normal 21.0-32.0 [facility] Comment on above: Performed By: #### B MP #### [facility] [address] [place] [address] Dr. Rose Chadwick Creatinine [Mass/Vol] 0.84 mg/dL Normal 0.55-1.02 [facility] Comment on above: Performed By: #### B MP #### [facility] [address] [address] [address] Rose Chadwick EGFR-AF [place] ISLANDER >60 Normal >=60 [facility] Comment on above: Performed By: #### B MP #### [facility] [address] [address] [address] Rose Chadwick EGFR-NON AF [place] ISLANDER >60 Normal >=60 [facility] Comment on above: Performed By: #### B MP #### [facility] [address] [address] [address] Rose Chadwick Glucose [Mass/Vol] 119 mg/dL Critically high 74-106 [facility] Comment on above: Performed By: #### B MP #### [facility] [address] [address] [address] Rose Chadwick Potassium [Moles/Vol] 4.2 mmol/L Normal 3.5-5.1 [facility] Comment on above: Performed By: #### B MP #### [facility] [address] [address] [address] Rose Chadwick Sodium [Moles/Vol] 141 mmol/L Normal 136-145 [facility] Comment on above: Performed By: #### B MP #### [facility] [id number] Rose Chadwick Urea nitrogen [Mass/Vol] 13.0 mg/dL Normal 7.0-18.0 [facility] Comment on above: Performed By: #### B MP #### [facility] [address] [address] [address] Rose Chadwick Urea nitrogen/Creatinine [Mass ratio] 15.5 mg/mg Normal [facility] Comment on above: Performed By: #### B MP #### [facility] [id number] Rose Chadwick Follow-Upon 06-01-2022 Follow-Up [id number] Konrad Mobley 1945 F Date Provider Department Center 06/01/2022 NADIYA CAMERON [facility] Family History Problem Relation Age of Onset Diabetes Father Heart disease Father Coronary artery disease Father Coronary artery disease Brother Family Status - Relation Status Age at Father Brother Level of Service:73434 [place] OFFICE/OUTPATIENT ESTABLISHED LOW MDM 20-29 MIN Reason for Visit and Comments: Hypertension [595913] Normal [facility] PROF CHEM 8 (BAS METB)on Anion gap [Moles/Vol] 11.1 mmol/L Normal [facility] Comment on above: Performed By: #### B MP #### [facility] [id number] Rose Chadwick Calcium [Mass/Vol] 9.0 mg/dL Normal 8.5-10.1 [facility] Comment on above: Performed By: #### B MP #### [facility] [id number] Rose Chadwick Chloride [Moles/Vol] 103 mmol/L Normal 98-107 [facility] Comment on above: Performed By: #### B MP #### [facility] [id number] Rose Chadwick CO2 [Moles/Vol] 29.6 mmol/L Normal 21.0-32.0 [facility] Comment on above: Performed By: #### B MP #### [facility] [address] [address] [address] Rose Chadwick Creatinine [Mass/Vol] 1.22 mg/dL Critically high 0.55-1.02 [facility] Comment on above: Performed By: #### B MP #### [facility] [address] [address] [address] Rose Chadwick EGFR-AF [place] ISLANDER 52 mL/min/1.73m2 Critically low >=60 [facility] Comment on above: Performed By: #### B MP #### [facility] [address] [address] [address] Rose Chadwick EGFR-NON AF [place]ER 43 mL/min/1.73m2 Critically low >=60 [facility] Comment on above: Performed By: #### B MP #### [facility] [address] [address] [address] Rose Chadwick Glucose [Mass/Vol] 112 mg/dL Critically high 74-106 [facility] Comment on above: Performed By: #### B MP #### [facility] [address] [address] [address] Rose Chadwick Potassium [Moles/Vol] 4.7 mmol/L Normal 3.5-5.1 [facility] Comment on above: Performed By: #### B MP #### [facility] [address] [address] [address] Rose Chadwick Sodium [Moles/Vol] 139 mmol/L Normal 136-145 [facility] Comment on above: Performed By: #### B MP #### [facility] [address] [address] [address] Rose Chadwick Urea nitrogen [Mass/Vol] 23.0 mg/dL Critically high 7.0-18.0 [facility] Comment on above: Performed By: #### B MP #### [facility] [address] [address] [address] Rose Chadwick Urea nitrogen/Creatinine [Mass ratio] 18.9 mg/mg Normal [facility] Comment on above: Performed By: #### B #### [facility] [address] [address] [address] Rose Chadwick 30on 05-10-2022 30 Recent [...] message. Nadiya Gillespie NP Division of Cardiology, [facility]- [phone] Pager- [phone] Email- [email or web address] Normal [facility] Documentationon 05-10-2022 Documentation [id number] Konrad Mobley 1945 F Date Provider Department Center 05/10/2022 120-NADIYA GILLESPIE [facility] Family History Problem Relation Age of Onset [...] med changes on voice mail message. Normal [facility] Orders Onlyon 05-10-2022 Orders Only [id number] Konrad Mobley 1945 F Date Provider Department Center 05/10/2022 CA AMANDA PAULA [facility] Family History Problem Relation Age of Onset Diabetes Father Heart disease Father Coronary artery disease Father Coronary artery disease Brother Family Status - Relation Status Age at Father Brother Normal [facility] PROF CHEM 8 (BAS METB)on Anion gap [Moles/Vol] 13.4 mmol/L Normal [facility] Comment on above: Performed By: #### B MP ####[facility] [address] [id number] Rose Chadwick Calcium [Mass/Vol] 9.1 mg/dL Normal 8.5-10.1 [facility] Comment on above: Performed By: #### B MP ####[facility] [address] [address]Dr[address] Rose Chadwick Chloride [Moles/Vol] 103 mmol/L Normal 98-107 [facility] Comment on above: Performed By: #### B MP ####[facility] [address] [address]Dr[address] Rose Chadwick CO2 [Moles/Vol] 28.3 mmol/L Normal 21.0-32.0 [facility] Comment on above: Performed By: #### B MP ####[facility] [address] [address]Dr[address] Rose Chadwick Creatinine [Mass/Vol] 1.42 mg/dL Critically high 0.55-1.02 [facility] Comment on above: Performed By: #### B MP ####[facility] [address] [address]Dr. Rsoe Chadwick EGFR-AF [place] ISLANDER 43 mL/min/1.73m2 Critically low >=60 [facility] Comment on above: Performed By: #### B MP ####[facility] [address] [id number][address] Rose Chadwick EGFR-NON AF [place]LANDER 36 mL/min/1.73m2 Critically low >=60 [facility] Comment on above: Performed By: #### B MP ####[facility] [address] [address]Dr. Karlajoni Farrukh Glucose [Mass/Vol] 125 mg/dL Critically high 74-106 [facility] Comment on above: Performed By: #### B MP ####[facility] [address] [place], [place] [address]Ir. Rose Chadwick Potassium [Moles/Vol] 5.7 mmol/L Critically high 3.5-5.1 [facility] Comment on above: Performed By: #### B MP ####[facility] [address] [id number][address] Rose Chadwick Sodium [Moles/Vol] 139 mmol/L Normal 136-145 [facility] Comment on above: Performed By: #### B MP ####[facility] [address] [id number] Rose Chadwick Urea nitrogen [Mass/Vol] 28.0 mg/dL Critically high 7.0-18.0 [facility] Comment on above: Performed By: #### B MP ####[facility] [address] [id number] oRse Chadwick Urea nitrogen/Creatinine [Mass ratio] 19.7 mg/mg Normal [facility] Comment on above: Performed By: #### B MP ####[facility] [address] [id number][address] Rose Chadwick Office Visiton 04-28-2022 Follow-up visit [id number] Konrad Mobley 1945 Provider Department Center 04/28/2022 NADIYA CAMERON [facility] Family History Problem Relation Age of Onset Diabetes Father Heart disease Father Coronary artery disease Father Coronary artery disease Brother Family Status - Relation Status Age at Father Brother Level of Service:17723 [place] OFFICE/OUTPATIENT ESTABLISHED MOD MDM 30-39 MIN Reason for Visit and Comments: Hypertension [963395] - Patient here for 3 mo follow up hypertension. Denies chest pain and SOB. Normal [facility] Abstracton 04-16-2022 Abstract [id number] Konrad Mobley 1945 Provider Department Center 04/16/2022 CA AMANDA [facility] Family History Problem Relation Age of Onset Diabetes Father Heart disease Father Coronary artery disease Father Coronary artery disease Brother Family Status - Relation Status Age at Father Brother Normal [facility] POINT OF CARE GLUCOSEon 06-1 Glucose [Mass/Vol] 120 mg/dL Critically high 74-106 [facility] Comment on above: Performed By: #### P OCGLUC #### [facility] [address] [address] [address] PELVIS WO CONon [...] by: JOE MUKHERJEE Date: 2022-01-06 12:14 Normal [facility] XR DEXA BONE DENSITYon 01-04 XR DEXA [...] by: JOE MUKHERJEE Date: 2022-01-04 11:[address] [facility] CT LSPINE WO CONon 2 CT LSPINE [...] by: JOE MUKHERJEE Date: 2021-11-30 16:48 Normal [facility] PROF CHEM 8 (BAS METB)on Anion gap [Moles/Vol] 13.3 mmol/L Normal [facility] Comment on above: Performed By: #### B MP ####[facility] [address] [address]Dr[address] Rose Chadwick Calcium [Mass/Vol] 8.8 mg/dL Normal 8.5-10.1 [facility] Comment on above: Performed By: #### B MP ####[facility] [address] [address]Dr. Karlajoni Farrukh Chloride [Moles/Vol] 101 mmol/L Normal 98-107 [facility] Comment on above: Performed By: #### B MP ####[facility] [address] [address]Dr. Karlajoni Farrukh CO2 [Moles/Vol] 29.5 mmol/L Normal 22.0-30.0 [facility] Comment on above: Performed By: #### B MP ####[facility] [address] [place], [place] [address]Dr. Rose Chadwick Creatinine [Mass/Vol] 0.85 mg/dL Normal 0.52-1.04 [facility] Comment on above: Performed By: #### B MP ####[facility] [address] [place], [place] [address]Dr. Karlajoni Farrukh EGFR-AF [place] ISLANDER >60 Normal >=60 [facility] Comment on above: Performed By: #### B MP ####[facility] [address] [address]Dr. Rose Chadwick EGFR-NON AF [place] ISLANDER >60 Normal >=60 [facility] Comment on above: Performed By: #### B MP ####[facility] [address] [address]Dr. Rose Chadwick Glucose [Mass/Vol] 116 mg/dL Critically high 74-106 [facility] Comment on above: Performed By: #### B MP ####[facility] [address] [address]Dr. Rose Chadwick Potassium [Moles/Vol] 4.8 mmol/L Normal 3.4-5.0 [facility] Comment on above: Performed By: #### B MP ####[facility] [address] [id number][address] Rose Chadwick Sodium [Moles/Vol] 139 mmol/L Normal 137-145 [facility] Comment on above: Performed By: #### B MP ####[facility] [address] [place], [place] [address]Ov. Rose Chadwick Urea nitrogen [Mass/Vol] 15.0 mg/dL Normal 7.0-18.0 [facility] Comment on above: Performed By: #### B MP ####[facility] [address] [place], [place] [address]Qu. Rose Chadwick Urea nitrogen/Creatinine [Mass ratio] 17.6 mg/mg Normal [facility] Comment on above: Performed By: #### B MP ####[facility] [address] [id number][address] Rose Chadwick XR LSPINE MIN 4 VIEWSon [...] PATITO DE JESUS Date: 2021-10-30 15:27 Normal [facility] Vital Signs Date Time Vital Sign Value Performing Clinician Facility 06-27-2023 13:00-0500 Body height 154.94 cm Abdullahi Acosta Other [employer] [facility] Other 06-27-2023 13:00-0500 Body mass index (BMI) [Ratio] 35.9 kg/m2 Abdullahi Acosta Other [employer] [facility] Other 06-27-2023 13:00-0500 Body weight 86.18 kg Abdullahi Cernaban Other [employer] [facility] Other 06-27-2023 13:00-0500 Diastolic blood pressure 64 mm[Hg] Nishal Chaban Other [employer] [facility] Other 06-27-2023 13:00-0500 SaO2% (BldA) [Mass fraction] 97 % Nishal Chaban Other [employer] [facility] Other 06-27-2023 13:00-0500 Systolic blood pressure 131 mm[Hg] Nishal Chaban Other [employer] [facility] Other 06-28-2022 14:00-0500 Body height 154.94 cm Abdullahi Chaban Other [employer] [facility] Other 06-28-2022 14:00-0500 Body mass index (BMI) [Ratio] 37.22 kg/m2 Nishal Chaban Other [employer] [facility] Other 06-28-2022 14:00-0500 Body temperature 96.8 [degF] Abdullahi Chaban Other [employer] [facility] Other 06-28-2022 14:00-0500 Body weight 89.36 kg Nishal Chaban Other [employer] [facility] Other 06-28-2022 14:00-0500 Diastolic blood pressure 73 mm[Hg] Nishal Chaban Other [employer] [facility] Other 06-28-2022 14:00-0500 SaO2% (BldA) [Mass fraction] 97 % Nishal Chaban Other [employer] [facility] Other 06-28-2022 14:00-0500 Systolic blood pressure 143 mm[Hg] Abdullahi Acosta Other [employer] [facility] Other 07-02-2021 14:00-0500 Body height 154.94 cm Olamide Jeane Other [employer] [facility] Other 07-02-2021 14:00-0500 Body mass index (BMI) [Ratio] 35.33 kg/m2 Olamide Jeane Other [employer] [facility] Other 07-02-2021 14:00-0500 Body temperature 96 [degF] Olamide Jeane Other [employer] [facility] Other 07-02-2021 14:00-0500 Body weight 84.82 kg Olamide Jeane Other [employer] [facility] Other 07-02-2021 14:00-0500 Diastolic blood pressure 83 mm[Hg] Olamide Jeane Other [employer] [facility] Other 07-02-2021 14:00-0500 SaO2% (BldA) [Mass fraction] 97 % Olamide Jeane Other [employer] [facility] Other 07-02-2021 14:00-0500 Systolic blood pressure 176 mm[Hg] Olamide Jeane Other [employer] [facility] Other Encounters Encounter Date Encounter Type Care Provider Facility Start: 04-09-2024 End: 04-09-2024 ambulatory KOFI BOWERS Not Available Start: 03-18-2024 End: 03-18-2024 Emergency department patient visit KOFI BOWERS [facility] Start: 01-18-2024 End: 01-18-2024 ambulatory ABEL GOODE Not Available Start: 12-01-2023 End: 12-01-2023 ambulatory KEN TATTERSALL Not Available Start: 11-17-2023 End: 11-17-2023 ambulatory KEN OBRIENTERSALL Not Available Start: 11-15-2023 End: 11-15-2023 ambulatory KEN TATTERSALL Not Available Start: 11-10-2023 End: 11-10-2023 ambulatory KEN TATTERSALL Not Available Start: 11-08-2023 End: 11-08-2023 ambulatory KEN TATTERSALL Not Available Start: 11-04-2023 End: 11-04-2023 ambulatory KWAKU CHRISTENSEN Not Available Start: 11-01-2023 End: 11-01-2023 ambulatory KEN OBRIENTERSALL Not Available Start: 10-28-2023 End: 10-28-2023 ambulatory GHAZAL GRIFFIN Not Available Start: 10-27-2023 End: 10-27-2023 ambulatory KOFI BOWERS Not Available Start: 09-29-2023 Refill Kofi Bowers MD Work Phone: [facility] Comment on above: Failed back syndrome Start: 07-20-2023 End: 07-20-2023 ambulatory ABEL GOODE Not Available Start: 06-27-2023 End: 06-27-2023 ambulatory Abdullahi Acosta Facility:[facility] Start: 06-27-2023 Office outpatient visit 15 minutes Abdullahi Acosta [facility] Start: 06-27-2023 End: 06-27-2023 ambulatory II Kofi Bowers Work Phone: [facility] Work Phone: Start: 06-27-2023 End: 06-27-2023 Patient encounter procedure II Kofi Bowers Work Phone: [facility] Work Phone: Start: 01-18-2023 ambulatory DAVID ISAAC . Facility: Start: 01-03-2023 End: 01-03-2023 ambulatory [facility] Start: 10-14-2022 End: 10-15-[address] SERENITY GARCIA . Facility:[facility]1 Start: 09-28-2022 End: 09-28-2022 [facility] Start: 09-07-2022 End: 09-08-[address] DOCTOR BUENROSTRO Facility:[facility] Start: 08-31-2022 End: 08-31-[address] [facility] Start: 08-23-2022 End: 08-24-[address] FRANKLYN GARCIA Facility:[facility]1 Start: 07-14-2022 End: 07-15-2022 ambulatory BETZAIDA ZIMMER . Facility:[facility] Start: 06-28-2022 Office outpatient visit 15 minutes [facility] Start: 06-28-2022 End: 06-28-2022 ambulatory II Kofi Bowers Work Phone: [facility] Work Phone: Start: 06-28-2022 End: 06-28-2022 Patient encounter procedure II Kofi Bowers Work Phone: [facility] Start: 06-01-2022 End: 06-01-2022 ambulatory NADIYA VERNA [facility] Start: 05-18-2022 End: 05-19-2022 ambulatory NADIYA VERNA Facility:[facility]1 Start: 05-05-2022 End: 05-06-2022 ambulatory NADIYA GILLESPIE Facility:[facility] Start: 04-28-2022 End: 04-28-2022 ambulatory NADIYA GILLESPIE [facility] Start: 04-08-2022 End: 04-08-[address] SERENITY [...] 07-02-2021 End: 07-02-2021 ambulatory Olamide Evansz Other [facility] Other Start: 07-02-2021 Office outpatient visit 15 minutes Olamide Ching [facility] Plan of Treatment Date Care Activity Detail Author Start: 01-04-2024 Medicare Annual Well ness (AWV) Medicare Annual Wellness (AWV) [facility] Start: 01-04-2024 Urine screening for protein Diabetes: Urine Protein Screening [facility] Start: 10-27-2023 End: 10-27-2023 Patient encounter procedure 10/27/2023 2:45 PM EDT Office Visit [facility] [address] [facility] [address] [place] [id number] Kofi Bowers MD [address] [facility] [address] [place] [address] [facility] Start: 10-19-2023 Hemoglobin A1c [...] Preservative Free Kofi Bowers MD Work Phone: [facility] 05-20-2021 Influenza, injectabl e, Madin Bruce Canine Kidney, preservative free, quadrivalent Kofi Bowers MD Work Phone: [facility] 09-15-2020 influenza, high dose seasonal, preservative-free Kofi Bowers MD Work Phone: [facility] 05-15-2020 Seasonal, trivalent, recombinant, injectable influenza vaccine, preservative free Kofi Bowers MD Work Phone: [facility] 06-15-2019 influenza, injectabl e, quadrivalent, preservative free Kofi Bowers MD Work Phone: [facility] 05-22-2018 influenza, injectabl e, quadrivalent, preservative free Kofi Bowers MD Work Phone: [facility] 08-02-2015 influenza, injectabl e, quadrivalent, preservative free Kofi Bowers MD Work Phone: [facility] 07-31-2015 tetanus and diphther ia toxoids, adsorbed, preservative free, for adult use (5 Lf of tetanus toxoid and 2 Lf of diphtheria toxoid) Kofi Bowers MD Work Phone: [facility] 05-15-2013 pneumococcal polysaccharide vaccine, 23 valent Kofi Bowers MD Work Phone: [facility] Payers Date Payer Category Payer Medicare [employer] MEDICARE UHC MEDICARE ADVANTAGE [id number] 2023-Present [address] [address] [place] [address] [id number] 2022 Medicare [id number] 2017 Medicare [id number] 1959 Medicare [id number] 1959 Medicare [id number] 1959 Private Health Insurance [facility] [id number] 1959 Self-pay [id number] 1945 [facility] [id number] 2.16.840.1.823353.3.579.2. 593 1945 Unknown [id number] 2.16.840.1.757643.3.579.2. 593 1945 Unknown [id number] 2.16.840.1.354271.3.579.2. 593 1945 Unknown [id number] 2.16.840.1.426199.3.579.2. 593 1945 Unknown [id number] 2.16.840.1.063200.3.579.2. 593 1945 Unknown [id number] 2.16.840.1.254312.3.579.2. 593 1945 Unknown [id number] 2.16.840.1.421976.3.579.2. 593 1945 Unknown [id number] 2.16.840.1.243904.3.579.2. 593 1945 Unknown [id number] 2.16.840.1.357417.3.579.2. 593 1945 Unknown [id number] 2..840.1.989681.3.579.2. 593 1945 Unknown [id number] 2.16.840.1.049031.3.579.2. 593 1945 Unknown [id number] 2.16.840.1.645687.3.579.2. 593 1945 Unknown [id number] 2.16.840.1.760879.3.579.2. 593 1945 Unknown [id number] 2.16.840.1.577425.3.579.2. 593 1945 Unknown [id number] 2.16.840.1.015865.3.579.2. 593 1945 Unknown [id number] 2.16.840.1.346294.3.579.2. 593 1945 Unknown [id number] 2.16.840.1.763384.3.579.2. 593 1945 Unknown [id number] 2.16.840.1.948266.3.579.2. 593 1945 Unknown [id number] 2.16.840.1.508750.3.579.2. 1286 1945 Unknown [id number] 2.16.840.1.157406.3.579.2. 1259 1945 Unknown [id number] 2.16.840.1.140989.3.579.2. 125 1945 Unknown [id number] 2.16.840.1.137914.3.579.2. 125 1945 Unknown [id number] 2.16.840.1.354325.3.579.2. 125 1945 Unknown [id number] 2.16.840.1.777674.3.579.2. 125 1945 Unknown [id number] 2.16.840.1.170314.3.579.2. 125 1945 Unknown [id number] 2.16.840.1.400971.3.579.2. 125 1945 Unknown [id number] 2.16.840.1.038683.3.579.2. 125 1945 Unknown [id number] 2.16.840.1.719645.3.579.2. 125 1945 Unknown [id number] 2.16.840.1.795606.3.579.2. 125 1945 Unknown [id number] 2.16.840.1.026827.3.579.2. 125 1945 Unknown [id number] 2.16.840.1.703498.3.579.2. 1259 Medicare Medicare [id number] Unknown Kaden BC/BS [id number] Unknown [id number] 2.16.840.1.258264.3.579.2. 531 Social History Date Type Detail Facility Unknown if ever smoked [employer] [facility] Other Start: 06-15-2018 End: 03-11-2023 Tobacco smoking status NHIS Ex-smoker (finding) [facility] Start: 1945 Sex Assigned At Female F [facility] Start: 01-03-2023 End: 07-20-[address] [facility] Other End: 08-15-1999 History of tobacco use Current smoker [facility] End: 08-15-1999 History of tobacco use Cigarette Smoker [facility] Start: 03-11-2023 Tobacco use and exposure Smokeless tobacco non-user [facility] Start: 07-20-2023 Alcohol intake Ex-drinker (finding) [facility] Start: 01-03-2023 End: 07-20-2023 History of Social function [facility] Start: 12-17-2022 Alcohol Comment Caffeine: 1-2 cups per day; none soda/pop [facility] Start: 1945 Sex Assigned At Not on file N [facility] Clinical Notes 11-03-2021 to 09-29-2023 Telephone Encounter - DINORA Lopez - 09/29/2023 12:33 PM ESTTelephone Encounter - DINORA Lopez - 09/29/2023 12:33 PM EST Note Date & Type Note Facility 09-29-2023 Telephone encounter Note Form atting of this note might be different from the original. OARRS reviewed, Rx sent into patient's pharmacy. [facility] 09-29-2023 Miscellaneous Notes Formattin g of this note might be different from the original. OARRS reviewed, Rx sent into patient's pharmacy. documented in this encounter [facility] 06-27-2023 Evaluation note Encounter Date Diagnosis Assessment Notes Jun, Obstructive sleep apnea (ICD-10 - G47.33) Jun, Chronic insomnia (ICD-10 - F51.04) [employer] [facility] Other 05-22-2023 NotePatient is here today to discuss medication Review of Systems Musculoskeletal: Positive for arthritis and back pain. All other systems reviewed and are negative.[facility] 01-03-2023 NoteCardiovascular Medicine [facility] SUBJECTIVE Chief Complaint Patient presents with Medication [...] BID. She will be driving down to [place] this weekend for her high school reunion. 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 ([facility]/HCC) Lipoprotein deficiency disorder History of fall History of colonic polyps GERD (gastroesophageal reflux disease) Family history of malignant neoplasm of gastrointestinal tract Failed back syndrome Ex-smoker ESS (euthyroid sick syndrome) Disability of walking Diabetic retinopathy associated with controlled type 2 diabetes mellitus ([facility]/HCC) Diabetic polyneuropathy associated with type 2 diabetes mellitus ([facility]/HCC) Type 2 diabetes mellitus with hyperglycemia ([facility]) Decreased estrogen level Continuous positive airway pressure [...] tablet, Take 1 (more content not included)... [facility]03-02-2023 NoteCONSULTATION CONSULTATION DATE: 10/14/2022 HISTORY: This is [...] unless otherwise indicated. Patient is in agreement.[facility] [id number] NoteCardiology Clinic Note Subjective Konrad Mobley is [...] BUN 13, creatinine 0.84, (more content not included)...[facility]02-14-2023 NotePatient here for 1 mo follow up hypertension and medication changes. She was started on hydrochlorothiazide and losartan was increased back up to 100mg daily. She had BMP on 09/07. Review of Systems Musculoskeletal: Positive for back pain. All other systems reviewed and are negative.[facility] 08-31-2022 NotebloUnCherrington Hospital01-17-2023 NotePatient here for 3 mo follow [...] Systems All other systems reviewed and are negative.[facility] 08-31-2022 NoteCardiology Clinic Note Subjective Konrad Mobley [...] in elbow MANOLO (obstructive sleep apnea) Diabetes ([facility]) Polyneuropathy Family History Problem Relation Name Age [...] 119, BUN 13, creatinine (more content not included)...[facility] 07-14-2022 NoteCONSULTATION CONSULTATION DATE: 07/14/2022 HISTORY OF [...] in three months' time unless otherwise indicated.[facility] [id number] Evaluation note* Encounter Date Diagnosis Assessment Notes [...] potential side effects were all discussed today [employer] [facility] Other 10-18-2022 NoteContinue to wear cpapUnCherrington Hospital10-18-2022 NoteContinue amlodipine 10 mg daily- she recently ran out of 10 mg and this morning took 5 mg tablet she had from previous script. Continue coreg 25 mg bid, lasix 40 mg daily, losartan 50 mg daily and hydralazine 50 mg po bid.[facility]10-18-2022 Note Subjective Konrad Mobley is a 77 [...] Lab Review: Assessment/Plan There were no encounter diagnoses.[facility]10-18-2022 NoteHPI: Konrad Mobley is a 77 y.o. [...] 3 months with repeat BMP for renal functionUnCherrington Hospital09-26-2022 NoteI spoke with patient and informed her of medication changes per Veronica Gillespie CNP. RX sent to [facility] and BMP faxed to [facility]. Patient verbalized understanding. [facility]09-14-2022 NoteF/U with PCP for further managementUnCherrington Hospital09-14-2022 NoteHypertension remains uncontrolled, will add aldactone [...] BUN 15, CR 0.85 normal K+ 4.8 normalUnCherrington Hospital09-14-2022 NoteAdded in error and don't know how to get rid of itUnCherrington Hospital08-25-2022 NoteCONSULTATION CONSULTATION DATE: 04/08/2022 HISTORY OF [...] in the office post procedure in May.[facility] [id number] NoteCONSULTATION CONSULTATION DATE: 02/10/2022 HISTORY OF PRESENT [...] plan of care and all questions answered. [facility] Signed and Approved by: BETZAIDA ZIMMER . 02/11/2022 13:38:[address]22-2022 NoteCONSULTATION PAIN MANAGEMENT CONSULTATION CHIEF COMPLAINT: [...] had three nerves released by Dr. Branch, professor of legal studies, in 2002. She states the pain has [...] would like to proceed. CC: Dr. Bowers [facility] Signed and Approved by: DR SERENITY GARCIA . 11/17/2021 11:24:00[facility]Evaluation noteNort [facility] Other Evaluation noteNo assessment information available [facility] Work Phone: Evaluation note* Diagnosis Failed back syndrome Other unspecified back disorder documented in this encounter [facility] general N[facility]ative - ReportedNoripley [facility] Other History general Narrative - Reported* Type [...] Heart Attack 2012 Hospitalization History see above [employer] [facility] Other Chief Complaint and Reason for Visit [...] Active Abdullahi Acosta MD Attending Provider 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 Specialty Start Date End Date Kofi Bowers MD [address] [facility] [address] [place] [address] PCP - General Internal Medicine 12/22/22 Goals [...] DATE CREATED AUTHOR AUTHOR'S ORGANIZ ATION 01/27/2023 [facility] DATE CREATED AUTHOR AUTHOR'S ORGANIZ ATION 09/23/2023 [facility] DATE CREATED AUTHOR AUTHOR'S ORGANIZ ATION 03/20/2024 [facility] DATE CREATED AUTHOR AUTHOR'S ORGANIZ ATION 04/10/2024 [facility] FOR RECORDS PERTAINING TO PATIENTS WHO [...] BE BASED ON THE PRIMARY CLINICAL RECORDS. [employer] [facility]. provides no warranty or guarantee of the accuracy or completeness of information in this document.
--- NOTE | 2024-05-10 13:19 | XR_ITS ---
The [address] [address] Patient Name: KONRAD GUZMAN MRN: [id number] date: 1945 Sex: F Assigned Patient Location: [facility] Current Patient Location: [facility] Accession/Order Number: [id number] Exam Date: 05/10/2024 13:28 Report Date: 05/11/2024 10:18 At the request of: RYLEE ROUSE Procedure: XR lumbar spine min 4V EXAMINATION: XR lumbar spine min 4V, XR thoracic spine 2V HISTORY: Failed Back Syndrome, Lumbar Radiculopathy [; chronic back pain; occasional numbness and tingling in right leg COMPARISON: No relevant comparison available. FINDINGS: BONES: Slight anterior wedging of approximately T6 and T7 vertebral bodies. Mechanical fusion L3-S1 via bilateral pedicle screws and rods; no appreciable hardware fracture loosening. No bone fracture or significant listhesis. Posterior decompression L3-4-5. Remnants of prior neurostimulator electrodes adjacent the L3-4 facet joints bilaterally. DISC SPACES: Multilevel mild degenerative disc disease of thoracic spine. Moderate narrowing all lumbar levels. Intervertebral disc spacer at L3-4 and L5-S1. PARASPINOUS: Moderate atherosclerotic disease of aorta; no appreciable aneurysm. OTHER: Negative. XR/XR lumbar spine min 4V IMPRESSION: 1. Grossly stable degenerative changes and surgical changes of the thoracic lumbar spine. Electronically authenticated by: JOE MUKHERJEE Date: 05/11/2024 10:18
--- NOTE | 2024-05-10 13:19 | XR_ITS ---
The [address] [address] Patient Name: KONRAD GUZMAN MRN: [id number] date: 1945 Sex: F Assigned Patient Location: [facility] Current Patient Location: [facility] Accession/Order Number: [id number] Exam Date: 05/10/2024 13:28 Report Date: 05/11/2024 10:18 At the request of: RYLEE ROUSE Procedure: XR thoracic spine 2V EXAMINATION: XR lumbar spine min 4V, XR thoracic spine 2V HISTORY: Failed Back Syndrome, Lumbar Radiculopathy [; chronic back pain; occasional numbness and tingling in right leg COMPARISON: No relevant comparison available. FINDINGS: BONES: Slight anterior wedging of approximately T6 and T7 vertebral bodies. Mechanical fusion L3-S1 via bilateral pedicle screws and rods; no appreciable hardware fracture loosening. No bone fracture or significant listhesis. Posterior decompression L3-4-5. Remnants of prior neurostimulator electrodes adjacent the L3-4 facet joints bilaterally. DISC SPACES: Multilevel mild degenerative disc disease of thoracic spine. Moderate narrowing all lumbar levels. Intervertebral disc spacer at L3-4 and L5-S1. PARASPINOUS: Moderate atherosclerotic disease of aorta; no appreciable aneurysm. OTHER: Negative. XR/XR thoracic spine 2V IMPRESSION: 1. Grossly stable degenerative changes and surgical changes of the thoracic lumbar spine. Electronically authenticated by: JOE MUKHERJEE Date: 05/11/2024 10:18
== END 2024-05-10 13:13 | disposition home or self-care (01) ==
LOC: RAD 13:13
PROVIDERS: PCP Internal Medicine; Visit Provider Nurse Practitioner
DX: M54.16 Radiculopathy, lumbar region (principal); M96.1 Postlaminectomy syndrome, not elsewhere classified
CPT/HCPCS: 72070; 72110

== ENCOUNTER 2024-05-24 13:17 | Outpatient (OUT) | payer MEDICARE, SELFPAY ==
--- NOTE | 2024-05-24 13:21 | CT_ITS ---
The [place] [address] Patient Name: KONRAD GUZMAN MRN: [facility]:[id number] date: 1945 Sex: F Assigned Patient Location: CT Current Patient Location: Accession/Order Number: [id number] Exam Date: 05/24/2024 13:23 Report Date: 05/25/2024 09:00 At the request of: JENNY FALLON Procedure: CT lumbar spine wo con EXAMINATION: CT thoracic spine wo con, CT lumbar spine wo con HISTORY: Low Back Pain Syndrome COMPARISON: No relevant comparison available. FINDINGS: BONES: Normal alignment of the thoracic and lumbar vertebral bodies with no spondylolisthesis. Mild anterior wedging of the T7 vertebral body, endplate sclerosis suggests chronic change Severe degenerative spondylosis. Moderate diffuse facet osteoarthropathy. Posterior decompression bilateral transpedicular fusion L3-S1 with no mechanical failure DISC SPACES: Moderate to severe multilevel disc space narrowing with endplate sclerosis and vacuum disks. Interbody spacer L5-S1 PARASPINOUS: Negative. No paraspinous abnormality is seen. OTHER: Extensive atherosclerosis CT/CT lumbar spine wo con IMPRESSION: Moderate to severe diffuse degenerative changes Anterior wedge compression fracture of T7 likely chronic Lumbosacral fusion with no mechanical failure Electronically authenticated by: PATITO DE JESUS Date: 05/25/2024 09:00
--- NOTE | 2024-05-24 13:21 | CT_ITS ---
The [place] [address] Patient Name: KONRAD GUZMAN MRN: [facility]:[id number] date: 1945 Sex: F Assigned Patient Location: CT Current Patient Location: Accession/Order Number: [id number] Exam Date: 05/24/2024 13:23 Report Date: 05/25/2024 09:00 At the request of: JENNY FALLON Procedure: CT thoracic spine wo con EXAMINATION: CT thoracic spine wo con, CT lumbar spine wo con HISTORY: Low Back Pain Syndrome COMPARISON: No relevant comparison available. FINDINGS: BONES: Normal alignment of the thoracic and lumbar vertebral bodies with no spondylolisthesis. Mild anterior wedging of the T7 vertebral body, endplate sclerosis suggests chronic change Severe degenerative spondylosis. Moderate diffuse facet osteoarthropathy. Posterior decompression bilateral transpedicular fusion L3-S1 with no mechanical failure DISC SPACES: Moderate to severe multilevel disc space narrowing with endplate sclerosis and vacuum disks. Interbody spacer L5-S1 PARASPINOUS: Negative. No paraspinous abnormality is seen. OTHER: Extensive atherosclerosis CT/CT thoracic spine wo con IMPRESSION: Moderate to severe diffuse degenerative changes Anterior wedge compression fracture of T7 likely chronic Lumbosacral fusion with no mechanical failure Electronically authenticated by: PATITO DE JESUS Date: 05/25/2024 09:00
== END 2024-05-24 13:18 | disposition home or self-care (01) ==
LOC: CT 13:17
PROVIDERS: PCP Internal Medicine; Visit Provider Anesthesiology
DX: M96.1 Postlaminectomy syndrome, not elsewhere classified (principal); M48.54XA Collapsed vertebra, not elsewhere classified, thoracic region, initial encounter for fracture; M43.26 Fusion of spine, lumbar region
CPT/HCPCS: 72128; 72131

== ENCOUNTER 2024-06-07 11:19 | Outpatient (OUT) | payer MEDICARE, SELFPAY ==
--- OUTSIDE RECORDS SUMMARY | 2024-06-07 11:32 | XMS_ITS | CCD ---
Author Organization [facility] Care Team Providers Care Edge Runner Name Role Phone Olamide Ching Unavailable MD Abdullahi Acosta Attending Provider MONI Bowers Primary Care Provider [phone] Abdullahi Acosta Unavailable VERNA, NADIYA Consulting Unavailable VERNA, NADIYA Attending Unavailable BOWERS, [...] MURDOCK Attending Unavailable VERNA, NADIYA Attending Unavailable VERNANADIYA Consulting Unavailable BOWERS, DR GLOVER Primary Care Unavailable VERNA, NADIYA Admitting Unavailable BOWERS, DR GLOVER Primary Care Unavailable BOWERS, DR GLOVER Consulting Unavailable BOWERS, DR GLOVER Attending Unavailable BOWERS, DR GLOVER Admitting Unavailable ZIEBER, DR JOE Car Consulting Unavailable ALGHOTHANI, MOHAMAD Admitting Unavailable ALGHOTHANI, MOHAMAD Attending Unavailable BOWERS, DR GLOVER Primary Care Unavailable ALGHOTHANI, MOHAMAD Admitting Unavailable ALGHOTHANI, MOHAMAD Consulting Unavailable ROBINSON, DR GLOVER Primary Care Unavailable ALGHOTHANI, MOHAMAD Attending Unavailable BETZAIDA GUY Attending Unavailable MESHA .BETZAIDA Admitting Unavailable ROBINSON, DR GLOVER Primary Care Unavailable LAKSHMIPATHY ., NARENDRANATH Admitting Rain vailable LAKSHMIPATHY ., DAVID Attending Rain vailable ROBINSON, DR GLOVER Primary Care Unavailable GARCIA ., DR SERENITY Barahona Attending Unavailable GARCIA ., DR SERENITY Barahona Admitting Unavailable BOWERS, DR GLOVER Primary Care Unavailable ZIMMER ., BETZAIDA Consulting Unavailable ZIMMER ., BETZAIDA Consulting Unavailable GARCIA ., DR SERENITY Barahona Attending Unavailable GARCIA ., DR SERENITY Barahona Admitting Unavailable BOWERS, DR GLOVRE Primary Care Unavailable GARCIA ., DR SERENITY [...] Unavailable USHA LOZA Consulting Unavailable JOE BERKOWITZ Consulting Unavailable YAZ, DR JOE Car Consulting Unavailable [...] Unavailable BOWERS, DR GLOVER Primary Care Unavailable ZIEBGUANACO, DR JOE Car Consulting Unavailable GARCIA ., DR SERENITY Barahona Consulting Unavailable BOWERS, DR GLOVER Primary Care [...] Care Provider MD Abdullahi Acosta Attending Provider [phone] Abdullahi Acosta Attending Unavailable Abdullahi Acosta Admtony Unavailable Kofi Bowers Primary Care Unavailable Kofi Bowers MD Primary Care Provider [phone] KOFI BOWERS Primary Care Unavailable SHUBHAM GANN Attending Unavailable KOFI BOWERS Attending Unavailable GHAZAL GRIFFIN Attending Unavailable KOFI BOWERS Referring Unavailable KEN GALEANA Attending Unavailable KOFI BOWERS Referring Unavailable KWAKU CHRISTENSEN Attending Unavailable KOFI BOWERS Referring Unavailable TATTERSGURU, KEN Attending Unavailable KOFI BOWERS B Referring Unavailable TATTERSGURU, KEN Attending Unavailable KOFI BOWERS B Referring Unavailable TATTERSGURU, KEN Attending Unavailable ROBINSON KOFI B Referring Unavailable ED GALEANAH Attending Unavailable ROBINSON KOFI B Referring Unavailable CAMILLENATASHA, KEN Attending Unavailable KOFI BOWERS B Referring Unavailable ABEL GOODE Attending Unavailable ABEL GOODE Attending Unavailable KOFI BOWERS B Attending Unavailable Allergies Allergy Classification Reported Allergen(s) Allergy Type Date of Onset Reaction(s) Facility (3 sources) Gemfibrozil Drug Allergy muscle atrophy [employer] Other (7 sources) Iodine; Translations: [IODINE] Drug Allergy 11-24-19 19 anaphylaxis, Shortness of breath [facility] Repository (5 sources) levoFLOXacin; Translations: [Levaquin] Drug Allergy 11-17-[address] [facility] Repository (7 sources) levoFLOXacin; Translations: [LEVOFLOXACIN] Drug Allergy 06-15-20 18 Other [facility] (1 source) Iodine and Iodide Containing Produc Allergy to substance 06-13-20 18 Unknown Reaction [facility] (2 sources) hydrALAZINE Drug Allergy 11-18-[address] [facility] Repository (1 source) Iodine Drug Allergy 07-31-[address] [facility] Repository (3 sources) pregabalin; Translations: [PREGABALIN] Drug Allergy 02-25-20 21 Dizziness [facility] Repository (1 source) SHELLFISH CONTAINING PRODUCTS; Translations: [SHELLFISH CONTAINING PRODUCTS] Propensity to adverse reactions to drug (disorder) 01-25-20 14 [facility] Repository (2 sources) Iodinated Contrast Media; Translations: [Iodinated Contrast Media] Allergy to substance 08-19-19 23 Unknown Reaction [facility] (1 source) Gemfibrozil Drug Allergy 06-27-20 23 [facility] Repository (1 source) Iodine Drug Allergy 06-27-20 23 [facility] Repository (2 sources) Shellfish Allergy to substance 01-25-20 14 Swelling [facility] Work Phone: Medications Current Medications Medication Drug Class(es) Dates Sig (Normalized) Sig (Original) acarbose 100 mg oral tablet (7 sources) alpha-Glucosidas e Inhibitor Start: 01-18-2024 take 1 tablet by mouth in the morning acarbose (Precose) 100 MG tablet Indications: 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 60 tablet 10 01/18/2024 Active Start: 02-02-2023 take 1 tablet by javi th in the morning acarbose (Precose) 100 MG [...] 11:00pm acetaminophen 500 mg oral ta blet (5 sources) acetaminophen (T ylenol) 500 MG tablet every 6 (six) hours. Active Tylenol Active albuterol 0.83 mg/ml inhalation [...] Jun, Active amLODIPine 10 mg oral tablet (7 sources) Dihydropyridine Calcium Channel Theodora Start: 07-20-2023 [...] 11:00pm ascorbic acid 100 mg/ml oral solution (2 sources) Vitamin C Ascorbic Acid (Vitamin C) 500 MG/5ML liquid 1 capsule 1 (one) time each day at the same time. Active aspirin 81 mg delayed release oral tablet (5 sources) Platelet Aggregation Inhibitor, Nonsteroidal Anti-inflammatory Drug Start: 2018 aspirin 81 MG EC tablet 1 (one) time each day at the same time. 2018 Active Baby Aspirin Act yair biotin 5 mg sublingual tablet (2 sources) Start: 06-13-2018 take 1 capsule under the tongue once daily Biotin Active 1 CAP SUBLINGUAL Daily June 12, 2018 11:00pm calcium citrate 250 mg / cholecalciferol 100 unt oral tablet (2 sources) Vitamin D take 1 tablet by mouth once in the morning, then take 1 tablet by mouth once in the evening Calcium Citrate-Vitamin D (Vishnu-Citrate Plus Vitamin D) 250-2.5 MG-MCG tablet Take 1 tablet by mouth in the morning and 1 tablet in the evening. Active Calcium Citrate Plus (3 sources) Calcium [...] Active cetirizine hydrochloride 10 mg oral tablet (2 sources) Histamine-1 Receptor Antagonist cetirizine (ZyrTEC) 10 MG tablet 1 (one) time each day at the same time. Active cholecalciferol 1.25 mg oral tablet (2 sources) Vitamin D cholecalciferol (Vitamin D-3) 1.25 MG (99067 UT) tablet Vitamin D3 5000IU Active cholecalciferol (Vitamin D-3) 1.25 MG (15141 UT) tablet Vitamin D3 5000IU 0 Active [...] 2018 11:00pm furosemide 40 mg oral tablet (7 sources) Loop Diuretic Start: 01-18-2024 take 1 tablet by mouth in the morning furosemide (Lasix) 40 MG tablet Indications: Benign essential hypertension (CMS/HCC) TAKE 1 TABLET (40 MG) BY MOUTH IN THE MORNING. 30 tablet 10 01/18/2024 Active Start: 06-13-2018 take 1 tablet by javi th in the morning furosemide (Lasix) 40 MG tablet Indications: Benign essential hypertension (CMS/HCC) Take 1 tablet (40 mg) by mouth in the morning. 100 tablet 3 02/02/2023 Active hydrALAZINE hydrochloride 50 mg oral tablet (1 source) Arteriolar Vasodilator hydrALAZINE (Apresoline) 50 MG tablet every 12 (twelve) hours. 0 Active hydroCHLOROthiazide 25 mg / losartan potassium 100 mg oral tablet (2 sources) Thiazide Diuretic, Angiotensin 2 Receptor Theodora Start: 024 take 1 tablet by mouth once daily losartan-hydroCHLOR Othiazide (Hyzaar) 100-25 MG tablet Indications: Hypertension, unspecified type (CMS/HCC) Take 1 tablet by mouth Daily 100 tablet 2 03/05/2024 Active Start: 04-26-2023 take 1 tablet by javi th once daily losartan-hydroCHLOROthiazide (Hyzaar) 10 0-25 MG tablet Indications: Hypertension, unspecified type (CMS/HCC) Take 1 tablet by mouth 1 (one) time each day at the same time. 100 tablet 2 04/26/2023 Active 3 ml insulin detemir 100 unt/ml pen injector (4 sources) Insulin Analog Start: 06-13-2018 Insulin Detemi r U-100 Active 0 .ROUTE .COMPLEX June 12, 2018 11:00pm as directed insulin detemir (Levemir FlexTouch) 100 UNIT/ML pen INJECT 60 UNITS SUBCUTANEOUSLY EACH MORNING for 25 Active liothyronine sodium 0.025 mg oral tablet (7 sources) l-Triiodothyronine Start: 04-26-2023 take 0.5 tablet by mouth twice daily liothyronine (Cytomel) 25 MCG tablet Indications: Hypothyroidism, unspecified type (CMS/HCC) 0.5 tablet on an empty stomach Orally two times daily. D.A.W. as Sigma or [employer] Brand ONLY for 90 days 200 tablet 3 04/26/2023 Active Start: 06-13-2018 take 0.5 tablet by m outh once daily Liothyronine Active 0.5 TAB PO Daily June 12, 2018 11:00pm Liothyronine Sod ium 25 MCG as directed Orally bid Active loratadine 10 mg oral tablet (7 sources) Start: 03-20-2024 take 1 tablet by mouth once daily in the morning Allergy Relief 10 MG tablet Indications: Allergy, initial encounter TAKE 1 TABLET BY MOUTH EVERY MORNING 30 tablet 11 03/20/2024 Active Start: 03-11-2023 End: 03-10-2024 take 1 tablet by mouth in the morning loratadine (Claritin) 10 MG tablet Indications: Allergy, initial encounter Take 1 tablet (10 mg) by mouth in the morning. 30 tablet 11 03/11/2023 03/10/2024 Active Start: 06-13-2018 take 1 tablet by javi th once daily Loratadine Active 1 TAB PO Daily June 12, 2018 11:00pm losartan potassium 100 mg oral tablet (5 sources) Angiotensin 2 Receptor Theodora Start: 06-13-2018 take 1 tablet by mouth once daily Losartan Active 1 TAB PO Daily June 12, 2018 11:00pm lovastatin 20 mg oral tablet (7 sources) HMG-CoA Reductase Inhibitor Start: 09-21-2023 take 1 tablet by mouth once daily lovastatin (Mevacor) 20 MG tablet Indications: Congenital renal artery anomaly TAKE 1 TABLET BY MOUTH ONCE DAILY 30 tablet 09/21/2023 Active Start: 06-13-2018 take 1 tablet by javi th once daily Lovastatin Active 1 TAB PO Daily June 12, 2018 11:00pm melatonin 5 mg oral capsule (5 sources) Start: 06-13-2018 Melatonin Acti ve June 12, 2018 11:00pm Melatonin 5 MG O rally qhs Active metFORMIN hydrochloride 1000 mg oral tablet (7 sources) Biguanide Start: 01-18-2024 take 1 tablet by mouth in the morning metFORMIN (Glucophage) 1000 MG tablet Indications: 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 TAKE WITH MEALS. 60 tablet 10 01/18/2024 Active Start: 06-13-2018 take 1 tablet by javi th in the morning metFORMIN (Glucophage) 1000 MG [...] 12, 2018 11:00pm take 2 tablets by mo ut every twenty-four hours Toprol XL 50 MG 2 tablet Orally Once a day Active Metoprolol Succi florencio Active take 2 tablets by mo uth every twenty-four hours Multivitamin preparation (3 sources) Multivitamin Act yair naproxen 500 mg oral tablet (1 source) Nonsteroidal Anti-inflammatory Drug naproxen (Naprosy n) 500 MG tablet every 12 (twelve) hours. 0 Active omeprazole 20 mg delayed release oral capsule (7 sources) Proton Pump Inhibitor Start: 024 take 1 capsule by mouth in the morning omeprazole (PriLOSEC) [address] capsule Indications: Gastroesophageal reflux disease without esophagitis TAKE 1 CAPSULE (20 MG) BY MOUTH IN THE MORNING. 30 capsule 01/18/2024 Active Start: 02-02-2023 take 1 capsule by mo ut in the morning omeprazole (PriLOSEC) [address] capsule Indications: Gastroesophageal reflux disease without esophagitis Take 1 capsule (20 mg) by mouth in the morning. 100 capsule 3 02/02/2023 Active Start: 06-13-2018 take 1 tablet by javi th once daily Omeprazole Active 1 TAB PO Daily June 12, 2018 11:00pm take 1 capsule by mo uth once daily PriLOSEC 20 MG 1 capsule Orally Once a day for 30 day(s) Active take 1 capsule by mo uth every twenty-four hours 12 hr orphenadrine citrate 100 mg extended release oral tablet (1 source) Muscle Relaxant Start: 10-27-2023 take 1 tablet by mouth twice daily as needed for muscle spasms orphenadrine (Norflex) 100 MG 12 hr tablet Indications: Acute strain of neck muscle, initial encounter Take 1 tablet (100 mg) by mouth 2 (two) times a day as needed for muscle spasms for up to 10 days Do not crush, chew, or split. 20 tablet 10/27/2023 Active microencapsulated potassium chloride 20 meq extended release oral tablet (7 sources) Start: 06-13-2018 Potassium Chloride Active 1 [...] 2018 11:00pm QUEtiapine 50 mg oral tablet (9 sources) Atypical Antipsychotic Start: 10-20-2023 take 1 tablet by mouth once daily QUEtiapine (SEROquel) 50 MG tablet Indications: Insomnia, unspecified type TAKE 1 TABLET BY MOUTH ONCE DAILY 30 tablet 10 10/20/2023 Active Start: 06-13-2018 take 1 tablet by javi th at bedtime Quetiapine Active 1 TAB PO Bedtime June 12, 2018 11:00pm rOPINIRole 2 mg oral tablet (1 source) Nonergot Dopamine Agonist Start: 01-18-2024 take 0.5 tablet by mouth at bedtime rOPINIRole (Requip) 2 MG tablet Indications: Restless Leg Syndrome Take 0.5 tablets (1 mg) by mouth at bedtime 30 tablet 2 01/18/2024 Active traMADol hydrochloride 50 mg oral tablet (9 sources) Opioid Agonist Start: 05-07-2024 End: 07-04-2024 take 1 tablet by mouth every six hours for pain traMADol (Ultram) 50 MG tablet Indications: Failed back syndrome Take 1 tablet (50 mg) by mouth every 6 (six) hours if needed for severe pain 120 tablet 06/04/2024 07/04/2024 Active Start: 09-29-2023 take 1 tablet by javi th every six hours for pain traMADol (Ultram) [...] Active Trulicity 4.5 MG/0.5ML solut ion pen-injector (2 sources) Start: 08-23-2023 Trulicity 4.5 MG/0.5ML solution pen-injector Indications: 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 Active Vitamin E 400 UNIT (3 sources) take 1 capsule by mo uth once daily Vitamin E 400 UNIT 1 capsule Orally Once a day Active zolpidem tartrate 6.25 mg extended release oral tablet (2 sources) gamma-Aminobutyric Acid-ergic Agonist Start: 11-18-2023 zolpidem CR (Ambien CR) 6.25 MG ER tablet Indications: Primary insomnia Take 1 tablet (6.25 mg) by mouth as needed at bedtime for sleep Do not crush, chew, or split. 30 tablet 2 11/18/2023 Active Start: 08-04-2023 zolpidem CR (A mbien CR) 6.25 MG ER tablet Indications: Primary [...] te Episodic/Chronic Cardiac and circulatory congenital anomalies (2 sources) Congenital anomaly of renal blood vessel; 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] Onset: 11-25-2015 12-14-2022 Chronic Diabetes mellitus with complications (8 sources) Disorder of nervous system due to type 2 diabetes mellitus; Translations: [Type 2 diabetes mellitus with other diabetic neurological complication] Onset: 08-15-2014 12-14-2022 Chronic Diabetes mellitus without complication (3 sources) Type 2 diabetes mellitus without complications; Translations: [Diabetes mellitus] Onset: 01-24-2014 03-11-2023 Chronic Disorders of lipid metabolism (3 sources) Hyperlipidemia, unspecified; Translations: [Mixed hyperlipidemia] Onset: 01-07-2022 12-14-2022 Chronic Esophageal disorders (3 sources) Gastro-esophageal reflux disease without esophagitis; Translations: [Gastroesophageal reflux disease] Onset: 01-07-2022 12-14-2022 Chronic Essential hypertension (9 sources) Essential (primary) hypertension; Translations: [Benign essential hypertension] Onset: 01-07-2022 Chronic Malaise and fatigue (2 sources) Fatigue; Translations: [Chronic fatigue, unspecified] Onset: 12-14-2022 12-14-2022 Chronic Menopausal disorders (6 sources) Other primary ovarian failure; Translations: [Decreased estrogen level] Onset: 01-04-2022 Chronic Miscellaneous mental health disorders (4 sources) Chronic insomnia; Translations: [Psychophysiologic insomnia] Chronic Other diseases of veins and lymphatics (2 sources) Venous hypertension of lower limb; Translations: [Chronic venous hypertension (idiopathic) without complications of unspecified lower extremity] Onset: 12-21-2022 12-21-2022 Chronic Other eye disorders (2 sources) Bilateral vitreous floaters; Translations: [Other vitreous opacities, bilateral] Onset: 12-14-2022 12-14-2022 Chronic Other hereditary and degenerative nervous system conditions (1 source) Restless legs syndrome; Translations: [RESTLESS LEGS SYNDROME] Onset: 11-06-2021 Chronic Other hereditary and degenerative nervous system conditions (1 source) Restless legs; Translations: [Restless legs syndrome] Onset: 01-18-2024 01-18-2024 Chronic Other lower respiratory disease (3 sources) Disorder of lung; Translations: [Other disorders of lung] Episodic Other nervous system disorders (1 source) Polyneuropathy, unspecified; Translations: [POLYNEUROPATHY UNSPECIFIED] Onset: 04-14-2022 Chronic Other nervous system disorders (2 sources) Chronic pain syndrome; Translations: [Chronic pain syndrome] Onset: 12-14-2022 12-14-2022 Chronic Other nervous system disorders (2 sources) Difficulty walking; Translations: [Difficulty in walking, not elsewhere classified] Onset: 12-14-2022 12-14-2022 Chronic Other nervous system disorders (2 sources) Polyneuropathy; Translations: [Polyneuropathy, unspecified] Onset: 01-24-2014 03-11-2023 Chronic Other nutritional; endocrine; and metabolic disorders (6 sources) Obese class II; Translations: [Body mass index (BMI) 35.0-35.9, adult] Chronic Other nutritional; endocrine; and metabolic disorders (1 source) Body mass index (BMI) 35.0-35.9, adult Onset: 07-02-2021 Resolved: 07-02-2021 Chronic Other nutritional; endocrine; and metabolic disorders (2 sources) Body mass index 30+ - obesity; Translations: [Obesity, unspecified] Onset: 04-21-2020 03-11-2023 Chronic Other nutritional; endocrine; and metabolic disorders (2 sources) Lipoprotein deficiency disorder; Translations: [Lipoprotein deficiency] Onset: 05-01-2018 03-11-2023 Chronic Other upper respiratory disease (2 sources) Allergic rhinitis; Translations: [Other allergic rhinitis] Onset: 12-14-2022 12-14-2022 Chronic Peripheral and visceral atherosclerosis (2 sources) Peripheral vascular disease; Translations: [Peripheral vascular disease, unspecified] Onset: 12-14-2022 12-14-2022 Chronic Residual codes; unclassified (5 sources) Obstructive sleep apnea syndrome; Translations: [Obstructive sleep apnea (adult) (pediatric)] Onset: 04-11-2019 03-11-2023 Chronic Residual codes; unclassified (5 sources) Obstructive sleep apnea (adult) (pediatric); Translations: [Obstructive sleep apnea (adult) (pediatric)] Onset: 07-02-2021 Resolved: 07-02-2021 Chronic Residual codes; unclassified (1 source) Obstructive sleep apnea (adult)(pediatric); Translations: [Obstructive sleep apnea (adult) (pediatric)] Onset: 06-27-2023 Chronic Residual codes; unclassified (2 sources) 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 airway pressure ventilation; Translations: [Dependence on other enabling machines and devices] Onset: 12-14-2022 12-14-2022 Chronic Residual codes; unclassified (2 sources) Initial insomnia; Translations: [Other insomnia] Onset: 12-14-2022 12-14-2022 Chronic Spondylosis; intervertebral disc disorders; other back problems (14 sources) Spondylosis without myelopathy or radiculopathy, lumbar [...] Documented Date Episodic/Chronic Blindness and vision defects (2 sources) Diplopia; Translations: [Diplopia] Onset: 03-11-2023 03-11-2023 Episodic Conditions associated with dizziness or vertigo (1 source) Vertigo; Translations: [Dizziness and giddiness] Onset: 10-27-2023 10-27-2023 Episodic E Codes: Fall (1 source) Unspecified fall, initial encounter; Translations: [UNSPECIFIED FALL INITIAL ENCOUNTER] Onset: 01-07-2022 Episodic Fracture of upper limb (2 sources) Fracture of radial neck; Translations: [Displaced fracture of neck of unspecified radius, initial encounter for closed fracture] Onset: 03-11-2023 03-11-2023 Episodic Mood disorders (1 source) Mood disorders Onset: 04-09-2024 04-09-2024 Other aftercare (1 source) longterm (current) use of insulin; Translations: [TRANSMISSION REBUILDER CURRENT USE OF INSULIN] Onset: 01-27-2022 Episodic Other aftercare (1 source) longterm (current) use of aspirin; Translations: [TRANSMISSION REBUILDER CURRENT USE OF ASPIRIN] Onset: 01-07-2022 Episodic Other aftercare (1 source) termite treater helper (current) use of oral hypoglycemic drugs; Translations: [DETENTION USE ORAL HYPOGLYCEMIC DX] Onset: 01-07-2022 Episodic Other aftercare (1 source) Other intermediate project manager (current) drug therapy; Translations: [OTH TRANSMISSION REBUILDER CURRENT DRUG THERAPY] Onset: 01-07-2022 Episodic Other aftercare (2 sources) Long-term current use of insulin; Translations: [termite treater helper (current) use of insulin] Onset: 01-28-2016 03-11-2023 Episodic Other and unspecified benign neoplasm (2 sources) Adenomatous polyp of colon ; Translations: [Benign neoplasm of ascending colon] Onset: 12-14-2022 12-14-2022 Episodic Other and unspecified benign neoplasm (2 sources) History of polyp of colon; Translations: [Personal history of colonic polyps] Onset: 06-01-2018 03-11-2023 Episodic Other and unspecified benign neoplasm (2 sources) Benign neoplasm of colon; Translations: [Benign neoplasm of colon, unspecified] Onset: 06-27-2018 03-11-2023 Episodic Other bone disease and musculoskeletal deformities (2 sources) Osteopenia; Translations: [Other specified disorders of bone density and structure, unspecified site] Onset: 12-14-2022 12-14-2022 Episodic Other connective tissue disease (1 source) Arthrodesis status; Translations: [ARTHRODESIS STATUS] Onset: 01-27-2022 Episodic Other connective tissue disease (2 sources) Trigger thumb of left hand; Translations: [Trigger thumb, left thumb] Onset: 12-14-2022 12-14-2022 Episodic Other connective tissue disease (2 sources) Acquired trigger finger; Translations: [Trigger finger, unspecified finger] Onset: 01-15-2021 03-11-2023 Episodic Other diseases of veins and lymphatics (2 sources) Peripheral venous insufficiency; Translations: [Venous insufficiency (chronic) (peripheral)] Onset: 12-14-2022 12-14-2022 Episodic Other eye disorders (2 sources) Lower eyelid ectropion; Translations: [Unspecified ectropion of unspecified eye, unspecified eyelid] Onset: 03-11-2023 03-11-2023 Episodic Other eye disorders (2 sources) Epiphora; Translations: [Unspecified epiphora, unspecified side] Onset: 04-08-2022 03-11-2023 Episodic Other injuries and conditions due to external causes (2 sources) History of fall; Translations: [History of falling] Onset: 10-02-2015 03-11-2023 Episodic Other non-traumatic joint disorders (2 sources) Pain in elbow; Translations: [Pain in unspecified elbow] Onset: 03-11-2023 03-11-2023 Episodic Other nutritional; endocrine; and metabolic disorders (2 sources) Cholesterol level - finding; Translations: [Lipoprotein deficiency] Onset: 12-14-2022 Resolved: 12-14-2022 12-14-2022 Chronic Residual codes; unclassified (1 source) Insomnia, unspecified; Translations: [INSOMNIA UNSPECIFIED] Onset: 07-17-2022 Episodic Residual codes; unclassified (2 sources) Localized edema; Translations: [Localized edema] Onset: 09-28-2022 Episodic Residual codes; unclassified (2 sources) Insomnia; Translations: [Insomnia, unspecified] Onset: 06-10-2015 03-11-2023 Episodic Residual codes; unclassified (2 sources) Family history of malignant neoplasm of gastrointestinal tract; Translations: [Family history of malignant neoplasm of digestive organs] Onset: 06-01-2018 03-11-2023 Episodic Screening and history of mental health and substance abuse codes (2 sources) Ex-smoker; Translations: [Personal history of nicotine dependence] Onset: 10-22-2015 03-11-2023 Episodic Skull and face fractures (4 sources) Closed fracture of orbital floor (blow-out); Translations: [Fracture of orbital floor, unspecified side, initial encounter for closed fracture] Onset: 03-11-2023 03-11-2023 Episodic Thyroid disorders (2 sources) Sick-euthyroid syndrome; Translations: [Sick-euthyroid syndrome] Onset: 12-14-2022 12-14-2022 Episodic Unclassified (1 source) LOW BACK PAIN, UNSPECIFIED; Translations: [LOW BACK PAIN, UNSPECIFIED] Onset: 10-30-2021 Results Test Name Value Interpretation Reference Range Facility 36on 01-26-2023 36 Follow-up in 3 months as planned. Thanks Normal [facility] Office Visiton 01-03-2023 Follow-up visit [id number] Cece Mobley 1945 Provider Department Center 01/03/2023 URI STERN PAULA Landon [facility] Family History Problem Relation Age of Onset Diabetes Father Heart disease Father Coronary artery disease Father Coronary artery disease Brother Family Status - Relation Status Age at Father Brother Level of Service:40502 [place] OFFICE/OUTPATIENT ESTABLISHED LOW MDM 20-29 MIN Reason for Visit and Comments: Medication Problem [65] [facility] Office Visiton 09-28-2022 Follow-up visit [id number] Cece Mobley 1945 Provider Department Center 09/28/2022 ERIKA TOWNSEND PAULA [facility] History Problem Relation Age of Onset Diabetes Father Heart disease Father Coronary artery disease Father Coronary artery disease Brother Family Status - Relation Status Age at Father Brother Level of Service:98410 [place] OFFICE/OUTPATIENT ESTABLISHED LOW MDM 20-29 MIN Reason for Visit and Comments: Hypertension [286494] Normal [facility] PROF CHEM 8 (BAS METB)on Anion gap [Moles/Vol] 11.6 mmol/L Normal [facility] Comment on above: Performed By: #### B MP #### [facility] [address] [address] [address] Rose Chadwick Calcium [Mass/Vol] 9.4 mg/dL Normal 8.5-10.1 [facility] Comment on above: Performed By: #### B MP #### [facility] [address] [address] [address] Rose Chadwick Chloride [Moles/Vol] 101 mmol/L Normal 98-107 [facility] Comment on above: Performed By: #### B MP #### [facility] [address] [address] [address] Rose Chadwick CO2 [Moles/Vol] 32.6 mmol/L Critically high 21.0-32.0 [facility] Comment on above: Performed By: #### B MP #### [facility] [address] [address] [address] Rose Chadwick Creatinine [Mass/Vol] 0.86 mg/dL Normal 0.55-1.02 [facility] Comment on above: Performed By: #### B MP #### [facility] [address] [place] [address] Dr. Rose Chadwick EGFR-AF PUERTO RICAN >60 Normal >=60 [facility] Comment on above: Performed By: #### B MP #### [facility] [address] [address] [address] Rose Chadwick EGFR-NON AF PUERTO RICAN >60 Normal >=60 [facility] Comment on above: Performed By: #### B MP #### [facility] [address] [place] [address] Dr. Rose Chadwick Glucose [Mass/Vol] 108 mg/dL Critically high 74-106 [facility] Comment on above: Performed By: #### B MP #### [facility] [address] [address] [address] Rose Chadwick Potassium [Moles/Vol] 4.2 mmol/L Normal 3.5-5.1 [facility] Comment on above: Performed By: #### B MP #### [facility] [address] [address] [address] Rose Chadwick Sodium [Moles/Vol] 141 mmol/L Normal 136-145 [facility] Comment on above: Performed By: #### B MP #### [facility] [address] [address] [address] Rose Chadwick Urea nitrogen [Mass/Vol] 15.0 mg/dL Normal 7.0-18.0 [facility] Comment on above: Performed By: #### B MP #### [facility] [address] [address] [address] Rose Chadwick Urea nitrogen/Creatinine [Mass ratio] 17.4 mg/mg Normal [facility] Comment on above: Performed By: #### B MP #### [facility] [id number] Rose Chadwick 37on 08-31-2022 37 -Obtain an arm BP monitor, Omron brand is preferred -Check blood pressure at least once daily 2-3 hours after taking medications - Stop taking Losartan -Start taking Losartan-hydrochloro thiazide -Check labs in 1 week Normal [facility] Office Visiton 08-31-2022 Follow-up visit [id number] Cece Mobley 1945 F Date Provider Department Center 08/31/2022 [id number] DEL TORO [facility] Family History Problem Relation Age of Onset Diabetes Father Heart disease Father Coronary artery disease Father Coronary artery disease Brother Family Status - Relation Status Age at Father Brother Level of Service:45621 [place] OFFICE/OUTPATIENT ESTABLISHED LOW MDM 20-29 MIN Reason for Visit and Comments: Hypertension [127777] Normal [facility] PROF CHEM 8 (BAS METB)on Anion gap [Moles/Vol] 11.9 mmol/L Normal [facility] Comment on above: Performed By: #### B MP #### [facility] [address] [address] [address] Rose Chadwick Calcium [Mass/Vol] 9.0 mg/dL Normal 8.5-10.1 [facility] Comment on above: Performed By: #### B MP #### [facility] [address] [address] [address] Rose Chadwick Chloride [Moles/Vol] 103 mmol/L Normal 98-107 [facility] Comment on above: Performed By: #### B MP #### [facility] [address] [address] [address] Rose Chadwick CO2 [Moles/Vol] 30.3 mmol/L Normal 21.0-32.0 [facility] Comment on above: Performed By: #### B MP #### [facility] [address] [address] [address] Rose Chadwick Creatinine [Mass/Vol] 0.84 mg/dL Normal 0.55-1.02 [facility] Comment on above: Performed By: #### B MP #### [facility] [address] [address] [address] Rose Chadwick EGFR-AF PUERTO RICAN >60 Normal >=60 [facility] Comment on above: Performed By: #### B MP #### [facility] [address] [place] [address] Dr. Rose Chadwick EGFR-NON AF PUERTO RICAN >60 Normal >=60 [facility] Comment on above: Performed By: #### B MP #### [facility] [address] [address] [address] Rose Chadwick Glucose [Mass/Vol] 119 mg/dL Critically high 74-[address] [facility] Comment on above: Performed By: #### B MP #### [facility] [address] [place] [address] Dr. Rose Chadwick Potassium [Moles/Vol] 4.2 mmol/L Normal 3.5-5.1 [facility] Comment on above: Performed By: #### B MP #### [facility] [address] [address] [address] Rose Chadwick Sodium [Moles/Vol] 141 mmol/L Normal 136-145 [facility] Comment on above: Performed By: #### B MP #### [facility] [address] [address] [address] Rose Chadwick Urea nitrogen [Mass/Vol] 13.0 mg/dL Normal 7.0-18.0 [facility] Comment on above: Performed By: #### B MP #### [facility] [address] [address] [address] Rose Chadwick Urea nitrogen/Creatinine [Mass ratio] 15.5 mg/mg Normal [facility] Comment on above: Performed By: #### B MP #### [facility] [address] [address] [address] Rose Chadwick Follow-Upon 06-01-2022 Follow-Up [id number] Cece Mobley 1945 F Date Provider Department Center 06/01/2022 NADIYA CAMERON CARD [facility] Family History Problem Relation Age of Onset Diabetes Father Heart disease Father Coronary artery disease Father Coronary artery disease Brother Family Status - Relation Status Age at Father Brother Level of Service:65734 [place] OFFICE/OUTPATIENT ESTABLISHED LOW MDM 20-29 MIN Reason for Visit and Comments: Hypertension [753328] Normal [facility] PROF CHEM 8 (BAS METB)on Anion gap [Moles/Vol] 11.1 mmol/L Normal [facility] Comment on above: Performed By: #### B MP #### [facility] [address] [address] [address] Rose Chadwick Calcium [Mass/Vol] 9.0 mg/dL Normal 8.5-10.1 [facility] Comment on above: Performed By: #### B MP #### [facility] [address] [address] [address] Rose Chadwick Chloride [Moles/Vol] 103 mmol/L Normal 98-107 [facility] Comment on above: Performed By: #### B MP #### [facility] [address] [address] [address] Rose Chadwick CO2 [Moles/Vol] 29.6 mmol/L Normal 21.0-32.0 [facility] Comment on above: Performed By: #### B MP #### [facility] [address] [address] [address] Rose Chadwick Creatinine [Mass/Vol] 1.22 mg/dL Critically high 0.55-1.02 [facility] Comment on above: Performed By: #### B MP #### [facility] [address] [address] [address] Rose Chadwick EGFR-AF PUERTO RICAN 52 mL/min/1.73m2 Critically low >=60 [facility] Comment on above: Performed By: #### B MP #### [facility] [address] [address] [address] Rose Chadwick EGFR-NON AF PUERTO RICAN 43 mL/min/1.73m2 Critically low >=60 [facility] Comment on above: Performed By: #### B MP #### [facility] [address] [address] [address] Rose Chadwick Glucose [Mass/Vol] 112 mg/dL Critically high 74-106 [facility] Comment on above: Performed By: #### B MP #### [facility] [address] [address] [address] Rose Chadwick Potassium [Moles/Vol] 4.7 mmol/L Normal 3.5-5.1 [facility] Comment on above: Performed By: #### B MP #### [facility] [address] [address] [address] Rose Chadwick Sodium [Moles/Vol] 139 mmol/L Normal 136-145 [facility] Comment on above: Performed By: #### B MP #### [facility] [address] [address] [address] Rose Chadwick Urea nitrogen [Mass/Vol] 23.0 mg/dL Critically high 7.0-18.0 [facility] Comment on above: Performed By: #### B MP #### [facility] [address] [address] [address] Rose Chadwick Urea nitrogen/Creatinine [Mass ratio] 18.9 mg/mg Normal [facility] Comment on above: Performed By: #### B MP #### [facility] [id number] Rose Chadwick 30on 05-10-2022 30 Recent [...] changes on voice mail message. 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- [phone] Pager- [phone] Email- [email or web address] Normal [facility] Documentationon 05-10-2022 Documentation [id number] Luis M Mobleyclaudette Calvert 1945 F Date Provider Department Center 05/10/2022 120-NADIYA GILLESPIE [facility] Family History Problem Relation Age of Onset [...] med changes on voice mail message. Normal [facility] Orders Onlyon 05-10-2022 Orders Only [id number] Cece Mobley Enrike 1945 Date Provider Department Center 05/10/2022 CA AMANDA PAULA [facility] Family History Problem Relation Age of Onset Diabetes Father Heart disease Father Coronary artery disease Father Coronary artery disease Brother Family Status - Relation Status Age at Father Brother Normal [facility] PROF CHEM 8 (BAS METB)on Anion gap [Moles/Vol] 13.4 mmol/L Normal [facility] Comment on above: Performed By: #### B MP ####[facility] [address] [place], [place] [address]WxAlexx Chadwick Calcium [Mass/Vol] 9.1 mg/dL Normal 8.5-10.1 [facility] Comment on above: Performed By: #### B MP ####[facility] [address] [address]Dr[address] Rose Chadwick Chloride [Moles/Vol] 103 mmol/L Normal 98-107 [facility] Comment on above: Performed By: #### B MP ####[facility] [address] [place], [place] [address]Dr. Rose Chadwick CO2 [Moles/Vol] 28.3 mmol/L Normal 21.0-32.0 [facility] Comment on above: Performed By: #### B MP ####[facility] [address] [place], [place] [address]Dr. Rose Chadwick Creatinine [Mass/Vol] 1.42 mg/dL Critically high 0.55-1.02 [facility] Comment on above: Performed By: #### B MP ####[facility] [address] [place], [place] [address]Dr. Karlajoni Farrukh EGFR-AF PUERTO RICAN 43 mL/min/1.73m2 Critically low >=[address] [facility] Comment on above: Performed By: #### B MP ####[facility] [address] [place], [place] [address]Dr. Rose Chadwick EGFR-NON AF PUERTO RICAN 36 mL/min/1.73m2 Critically low >=60 [facility] Comment on above: Performed By: #### B MP ####[facility] [address] [place], [place] [address]Dr. Rose Chadwick Glucose [Mass/Vol] 125 mg/dL Critically high 74-106 [facility] Comment on above: Performed By: #### B MP ####[facility] [address] [place], [place] [address]Dr. Rose Chadwick Potassium [Moles/Vol] 5.7 mmol/L Critically high 3.5-5.[address] [facility] Comment on above: Performed By: #### B MP ####[facility] [address] [place], [place] [address]Dr. Karlajoni Chadwick Sodium [Moles/Vol] 139 mmol/L Normal 136-145 [facility] Comment on above: Performed By: #### B MP ####[facility] [address] [place], [place] [address]IpAlexx Chadwick Urea nitrogen [Mass/Vol] 28.0 mg/dL Critically high 7.0-18.0 [facility] Comment on above: Performed By: #### B MP ####[facility] [address] [place], [place] [address]QnAlexx Chadwick Urea nitrogen/Creatinine [Mass ratio] 19.7 mg/mg Normal [facility] Comment on above: Performed By: #### B MP ####[facility] [address] [place], [place] [address]ExAlexx Chadwick Office Visiton 04-28-2022 Follow-up visit [id number] eCce Mobley 1945 [facility] Provider Department Center 04/28/2022 NADIYA CAMERON [facility] Family History Problem Relation Age of Onset Diabetes Father Heart disease Father Coronary artery disease Father Coronary artery disease Brother Family Status - Relation Status Age at Father Brother Level of Service:81243 [place] OFFICE/OUTPATIENT ESTABLISHED MOD MDM 30-39 MIN Reason for Visit and Comments: Hypertension [273056] - Patient here for 3 mo follow up hypertension. Denies chest pain and SOB. Normal [facility] Abstracton 04-16-2022 Abstract [id number] Cece Mobley 1945 [facility] Provider Department Center 04/16/2022 CA AMANDA [facility] Family History Problem Relation Age of Onset Diabetes Father Heart disease Father Coronary artery disease Father Coronary artery disease Brother Family Status - Relation Status Age at Father Brother Normal [facility] POINT OF CARE GLUCOSEon - Glucose [Mass/Vol] 120 mg/dL Critically high 74-[address] [facility] Comment on above: Performed By: #### P OCGLUC #### [facility] [address] [place], [place] [address] PELVIS WO CONon [...] on above: Performed By: #### B MP ####[facility] [address] [place], [place] [address]ZpAlexx Chadwick Calcium [Mass/Vol] 8.8 mg/dL Normal 8.5-10.1 [facility] Comment on above: Performed By: #### B MP ####[facility] [address] [place], [place] [address]UjAlexx Chadwick Chloride [Moles/Vol] 101 mmol/L Normal 98-107 [facility] Comment on above: Performed By: #### B MP ####[facility] [address] [address]Dr[address] Rose Chadwick CO2 [Moles/Vol] 29.5 mmol/L Normal 22.0-30.0 [facility] Comment on above: Performed By: #### B MP ####[facility] [address] [address]Dr. Rose Chadwick Creatinine [Mass/Vol] 0.85 mg/dL Normal 0.52-1.04 [facility] Comment on above: Performed By: #### B MP ####[facility] [address] [address]Dr. Rose Chadwick EGFR-AF PUERTO RICAN >60 Normal >=60 [facility] Comment on above: Performed By: #### B MP ####[facility] [address] [place], [place] [address]Dr. Rose Chadwick EGFR-NON AF PUERTO RICAN >60 Normal >=60 [facility] Comment on above: Performed By: #### B MP ####[facility] [address] [address]Dr. Rose Chadwick Glucose [Mass/Vol] 116 mg/dL Critically high 74-106 [facility] Comment on above: Performed By: #### B MP ####[facility] [address] [address]Dr. Rose Chadwick Potassium [Moles/Vol] 4.8 mmol/L Normal 3.4-5.0 [facility] Comment on above: Performed By: #### B MP ####[facility] [address] [address]Dr. Rose Chadwick Sodium [Moles/Vol] 139 mmol/L Normal 137-145 [facility] Comment on above: Performed By: #### B MP ####[facility] [address] [address]Dr. Rose Chadwick Urea nitrogen [Mass/Vol] 15.0 mg/dL Normal 7.0-18.0 [facility] Comment on above: Performed By: #### B MP ####[facility] [address] [place], [place] [address]Dx. Rose Chadwick Urea nitrogen/Creatinine [Mass ratio] 17.6 mg/mg Normal [facility] Comment on above: Performed By: #### B MP ####[facility] [address] [place], [place] [address]Uh. Rose Chadwick XR LSPINE MIN 4 VIEWSon [...] Body height 154.94 cm Abdullahi Acosta Other [employer] Other 06-27-2023 13:00-0500 Body mass index (BMI) [Ratio] 35.9 kg/m2 Abdullahi Acosta Other [employer] Other 06-27-2023 13:00-0500 Body weight 86.18 kg Abdullahi Acosta Other [employer] Other 06-27-2023 13:00-0500 Diastolic blood pressure 64 mm[Hg] Abdullahi Acosta Other [employer] Other 06-27-2023 13:00-0500 SaO2% (BldA) [Mass fraction] 97 % Abdullahi Acosta Other [employer] Other 06-27-2023 13:00-0500 Systolic blood pressure 131 mm[Hg] Nishal Chaban Other [employer] Other 06-28-2022 14:00-0500 Body height 154.94 cm Abdullahi Chaban Other [employer] Other 06-28-2022 14:00-0500 Body mass index (BMI) [Ratio] 37.22 kg/m2 Abdullahi Chaban Other [employer] Other 06-28-2022 14:00-0500 Body temperature 96.8 [degF] Abdullahi Chaban Other [employer] Other 06-28-2022 14:00-0500 Body weight 89.36 kg Abdullahi Cernaban Other [employer] Other 06-28-2022 14:00-0500 Diastolic blood pressure 73 mm[Hg] Nishal Chaban Other [employer] Other 06-28-2022 14:00-0500 SaO2% (BldA) [Mass fraction] 97 % Abdullahi Cernaban Other [employer] Other 06-28-2022 14:00-0500 Systolic blood pressure 143 mm[Hg] Nishal Chaban Other [employer] Other 07-02-2021 14:00-0500 Body height 154.94 cm Olamide Ching Other [employer] Other 07-02-2021 14:00-0500 Body mass index (BMI) [Ratio] 35.33 kg/m2 Olamidera Ching Other [employer] Other 07-02-2021 14:00-0500 Body temperature 96 [degF] Olamide Jeane Other [employer] Other 07-02-2021 14:00-0500 Body weight 84.82 kg Olamide Jeane Other [employer] Other 07-02-2021 14:00-0500 Diastolic blood pressure 83 mm[Hg] Olamide Jeane Other [employer] Other 07-02-2021 14:00-0500 SaO2% (BldA) [Mass fraction] 97 % Olamide Jeane Other [employer] Other 07-02-2021 14:00-0500 Systolic blood pressure 176 mm[Hg] Olamide Jeane Other [employer] Other Encounters Encounter Date Encounter Type Care Provider Facility Start: 06-04-2024 End: 06-04-2024 Refill Kofi Bowers MD Work Phone: [facility] Comment on above: Failed back syndrome Start: 04-09-2024 End: 04-09-2024 ambulatory KOFI BOWERS Not Available Start: 03-18-2024 End: 03-18-2024 Emergency department patient visit KOFI BOWERS [facility] Start: 01-18-2024 End: 01-18-2024 ambulatory AEBL GOODE Not Available Start: 12-01-2023 End: 12-01-2023 ambulatory KEN TATTERSALL Not Available Start: 11-17-2023 End: 11-17-2023 ambulatory KEN TATTERSALL Not Available Start: 11-15-2023 End: 11-15-2023 ambulatory KEN TATTERSALL Not Available Start: 11-10-2023 End: 11-10-2023 ambulatory KEN TATTERSALL Not Available Start: 11-08-2023 End: 11-08-2023 ambulatory KEN GALEANA Not Available Start: 11-04-2023 End: 11-04-2023 ambulatory KWAKU CHRISTENSEN Not Available Start: 11-01-2023 End: 11-01-2023 ambulatory KEN GALEANA Not Available Start: 10-28-2023 End: 10-28-2023 ambulatory GHAZAL GRIFFIN Not Available Start: 10-27-2023 End: 10-27-2023 ambulatory KOFI BOWERS Not Available Start: 09-29-2023 Refill Kofi Bowers MD Work Phone: [facility] Comment on above: Failed back syndrome Start: 07-20-2023 End: 07-20-2023 ambulatory ABEL Dumont RUSSEL Not Available Start: 06-27-2023 End: 06-27-2023 [facility]ulatory [facility] Facility[facility] Start: 06-27-2023 Office outpatient visit 15 minutes [facility] Start: 06-27-2023 End: 06-27-2023 ambulatory II Kofi Bowers Work Phone: [facility] Work Phone: Start: 06-27-2023 End: 06-27-2023 Patient encounter procedure II Kofi Bowers Work Phone: [facility] Work Phone: Start: 01-18-2023 ambulatory NARENDRANATH LAKSHMIPATHY . Facility:[facility] Start: 01-03-2023 End: 01-03-2023 ambulatory URI CARLSON [facility] Start: 10-14-2022 End: 10-15-[address] SERENITY GARCIA . Facility:[facility] Start: 09-28-2022 End: 09-28-[address] [facility] Start: 09-07-2022 End: 09-08-[address] DOCTOR BUENROSTRO Facility:[facility] Start: 08-31-2022 End: 08-31-[address] [facility] Start: 08-23-2022 End: 08-24-[address] FRANKLYN GARCIA Facility:[facility] Start: 07-14-2022 End: 07-15-2022 ambulatory BETZAIDA ZIMMER . Facility:[facility] Start: 06-28-2022 Office outpatient visit 15 minutes Abdullahi Acosta [facility] Start: 06-28-2022 End: 06-28-2022 ambulatory II Kofi Robinson Work Phone: [facility] Work Phone: Start: 06-28-2022 End: 06-28-2022 Patient encounter procedure II Kofi Bowers Work Phone: [facility] Start: 06-01-2022 End: 06-01-2022 ambulatory [facility] Start: 05-18-2022 End: 05-19-2022 ambulatory NADIYA GILLESPIE Facility:[facility] Start: 05-05-2022 End: 05-06-2022 ambulatory NADIYA GILLESPIE Facility:[facility] Start: 04-28-2022 End: 04-28-2022 ambulatory [facility] Start: 04-08-2022 End: 04-08-[address] SERENITY GARCIA . Facility:[facility] Start: 02-10-2022 End: 02-11-[address] SERENITY GARCIA . Facility:[facility] Start: 01-26-2022 End: 01-26-[address] SERENITY GARCIA . Facility:[facility] Start: 01-06-2022 End: 01-06-[address] JOE MUKHERJEE Facility:[facility] Start: 01-04-2022 End: 01-05-[address] KOFI BOWERS Facility:[facility] Start: 12-06-2021 ambulatory OLIVA CARROLL Facalee lity:[facility] Start: 11-30-2021 End: 12-01-[address] KOFI BOWERS Facility:[facility] Start: 11-23-2021 ambulatory BETZAIDA ZIMMER . Facility:[facility] Start: 11-03-2021 End: 11-04-2021 ambulatory OLIVA CARROLL Facility:[facility] Start: 10-30-2021 End: 10-31-[address] KOFI BOWERS Facility: Start: 07-02-2021 End: 07-02-2021 ambulatory Olamide Ching Other [facility] Other Start: 07-02-2021 Office outpatient visit 15 minutes Olamide Ching [facility] Plan of Treatment Date Care Activity Detail Author Start: 04-09-2025 Medicare Annual Well ness (AWV) Medicare Annual Wellness (AWV) [facility] Start: 04-09-2025 Urine screening for protein Diabetes: Urine Protein Screening [facility] Start: 08-09-2024 End: 08-09-2024 Patient encounter procedure 08/09/2024 1:15 PM EST Office Visit [facility] [address] [place] [address] Kofi Bowers MD [address] [place] [address] [facility] Start: 07-10-2024 Hemoglobin A1c measurement Diabetes: Hemoglobin A1C [facility] Start: 04-15-2024 Influenza vaccination Influenza Vacc ine (#1) [facility] Start: 01-04-2024 Medicare Annual Well ness (AWV) Medicare Annual Wellness (AWV) [facility] Start: 01-04-2024 Urine screening for protein Diabetes: Urine Protein Screening [facility] Start: 10-27-2023 End: 10-27-2023 Patient encounter procedure 10/27/2023 2:45 PM EDT Office Visit [facility] [address] [place] [address] Kofi Bowers MD [address] [place] [address] [facility] Start: 10-19-2023 Hemoglobin A1c measurement Diabetes: Hemoglobin A1C [facility] Start: 04-28-2021 Glaucoma screening Diabetes: R etinopathy Screening [facility] Start: 05-15-2014 Pneumococcal Vaccine : 65+ Years (2 of 2 - PCV) Pneumococcal Vaccine: 65+ Years (2 of 2 - PCV) [facility] Immunizations Immunization Date Immunization Notes Care Provider Fa cam 06-06-2023 Influenza, High-dose Seasonal, Quadrivalent, Preservative Free oKfi Bowers MD Work Phone: [facility] 06-06-2023 influenza virus vacc ine, unspecified formulation Kofi Bowers MD Work Phone: [facility] 05-20-2021 Influenza, injectabl e, Madin Yani Canine Kidney, preservative free, quadrivalent Kofi Bowers MD Work Phone: [facility] 09-15-2020 influenza, high dose seasonal, preservative-free Kofi Bowers MD Work Phone: [facility] 05-15-2020 Seasonal, trivalent, recombinant, injectable influenza vaccine, preservative free Kofi Bowers MD Work Phone: [facility] 06-15-2019 influenza, injectabl e, quadrivalent, preservative free Kofi Bowers MD Work Phone: [facility] 05-22-2018 influenza, injectabl e, quadrivalent, preservative free Kofi Bowers MD Work Phone: [facility] 08-02-2015 influenza, injectabl e, quadrivalent, preservative free Kofi Bowers MD Work Phone: [facility] 07-31-2015 tetanus and diphther ia toxoids, adsorbed, preservative free, for adult use (5 Lf of tetanus toxoid and 2 Lf of diphtheria toxoid) Kofi Bowers MD Work Phone: [facility] 05-15-2013 pneumococcal polysaccharide vaccine, 23 valent Kofi Bowers MD Work Phone: [facility] Payers Date Payer Category Payer Medicare [employer]ARE UHC MEDICARE ADVANTAGE [id number] 2023-Present [address] [address] [place] [address] [id number] 2023 Medicare (Managed Care) [facility] MEDICARE Member Subscriber Plan / Payer (Effective 2023-Present) Name: Cece Mobley Relation to Subscriber: Self Name: Cece Mobley Payer ID: [id number] (NAIC) Type: Not on file Address: [place] [id number] 2022 Medicare [id number] 2017 Medicare [id number] 1959 Medicare [id number] 1959 Medicare [id number] 1959 Private Health Insurance [facility] [id number] 1959 Self-pay [id number] 1945 Unknown [id number] 2.840.1.918118.3.579.2. 59 1945 Unknown [id number] .840.1.435502.3.579.2. 1945 Unknown [id number] .840.1.595674.3.579.2. 59 1945 Unknown [id number] 2.16840.1.075611.3.579.2. 59 1945 Unknown [id number] 2.16840.1.555410.3.579.2. 59 1945 Unknown [id number] 2.16840.1.434588.3.579.2. 59 1945 Unknown [id number] 2.16840.1.563609.3.579.2. 59 1945 Unknown [id number] 2.16840.1.520733.3.579.2. 593 1945 Unknown [id number] 2.16.840.1.615027.3.579.2. 593 1945 Unknown [id number] 2.16.840.1.058833.3.579.2. 593 1945 Unknown [id number] 2.16.840.1.855040.3.579.2. 593 1945 Unknown [id number] 2.16.840.1.567844.3.579.2. 593 1945 Unknown [id number] 2.16.840.1.261048.3.579.2. 593 1945 Unknown [id number] 2.16.840.1.455017.3.579.2. 593 1945 Unknown [id number] 2.16.840.1.801918.3.579.2. 593 1945 Unknown [id number] 2.16.840.1.241295.3.579.2. 593 1945 Unknown [id number] 2.16.840.1.258212.3.579.2. 593 1945 Unknown [id number] 2.16.840.1.342820.3.579.2. 593 1945 Unknown [id number] 2.16.840.1.485549.3.579.2. 1286 1945 Unknown [id number] 2.16.840.1.987210.3.579.2. 1259 1945 Unknown [id number] 2.16.840.1.200171.3.579.2. 1259 1945 Unknown [id number] 2.16.840.1.664349.3.579.2. 1259 1945 Unknown [id number] 2.16.840.1.492048.3.579.2. 1259 1945 Unknown [id number] 2.16.840.1.891688.3.579.2. 1258 1945 Unknown [id number] 2.16.840.1.267248.3.579.2. 1258 1945 Unknown [id number] 2.16.840.1.791612.3.579.2. 125 1945 Unknown [id number] 2.16.840.1.416524.3.579.2. 1258 1945 Unknown [id number] 2.16.840.1.370864.3.579.2. 1258 1945 Unknown [id number] 2.16.840.1.093877.3.579.2. 1258 1945 Unknown [id number] 2.16.840.1.486330.3.579.2. 1258 1945 Unknown [id number] 2.16.840.1.133827.3.579.2. 1259 Medicare Medicare [id number] Unknown Kaden BC/BS [id number] Unknown [id number] 2.16.840.1.182682.3.579.2. 531 Social History Date Type Detail Facility Unknown if ever smoked [employer] Other Start: 06-15-2018 End: 03-11-2023 Tobacco smoking status SDIS Ex-smoker (finding) [facility] Start: 1945 Sex Assigned At Female [facility] Start: 07-20-2023 End: 04-09-2024 Sex Assigned At [facility] Other End: 08-15-1999 History of tobacco use Current smoker [facility] End: 08-15-1999 History of tobacco use Cigarette Smoker [facility] Start: 03-11-2023 Tobacco use and exposure Smokeless tobacco non-user [facility] Start: 07-20-2023 End: 04-09-2024 Alcohol intake Ex-drinker (finding) [facility] Start: 07-20-2023 End: 04-09-2024 History of Social function [facility] Start: 12-17-2022 Alcohol Comment Caffeine: 1-2 cups per day; none soda/pop [facility] Start: 1945 Sex Assigned At Not on file [facility] Clinical Notes 11-03-2021 to 06-04-2024 Telephone Encounter - DINORA Lopez - 06/04/2024 4:27 PM EDTTelephone Encounter - DINORA Lopez - 06/04/2024 4:27 PM EDTTelephone Encounter - Chelle Guallpa - 06/04/2024 3:51 PM EDT Note Date & Type Note Facility 06-04-2024 Telephone encounter Note Form atting of this note might be different from the original. OARRS reviewed, Rx sent into patient's pharmacy. [facility] 06-04-2024 Miscellaneous Notes Formattin g of this note might be different from the original. [facility] reviewed, Rx sent into patient's pharmacy. traMADol (Ultram) 50 MG tablet Ddm in [place] documented in this encounter [facility] 06-04-2024 Telephone encounter Note Form atting of this note might be different from the original. traMADol (Ultram) 50 MG tablet Ddm in [place] [facility] 09-29-2023 Telephone encounter Note Form atting of this note might be different from the original. OARRS reviewed, Rx sent into patient's pharmacy. [facility] 09-29-2023 Miscellaneous Notes Formattin g of this note might be different from the original. [facility]RS reviewed, Rx sent into patient's pharmacy. documented in this encounter [facility] 06-27-2023 Evaluation note Encounter Date Diagnosis Assessment Notes Jun, Obstructive sleep apnea (ICD-10 - G47.33) Jun, Chronic insomnia (ICD-10 - F51.04) [employer] Other 05-22-2023 NotePatient is here today to discuss medication Review of Systems Musculoskeletal: Positive for arthritis and back pain. All other systems reviewed and are negative.[facility] 01-03-[address] [facility] SUBJECTIVE Chief Complaint Patient presents with Medication Problem Cece Mobley is a 77 y.o. female here [...] BID. She will be driving down to [place] this weekend for her high school reunion. 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 [facility]03-02-2023 NoteCONSULTATION CONSULTATION [...] unless otherwise indicated. Patient is in agreement.[facility] [id number] NoteCardiology Clinic Note Subjective Cece Mobley is a 77 y.o. year old [...] BUN 13, creatinine 0.84, (more content not included)...[facility]02-14-2023 NotePatient here for 1 mo follow up hypertension and medication changes. She was started on hydrochlorothiazide and losartan was increased back up to 100mg daily. She had BMP on 09/07. Review of Systems Musculoskeletal: Positive for back pain. All other systems reviewed and are negative.[facility] 08-31-2022 NotebloUnFirelands Regional Medical Center01-17-2023 NotePatient here for 3 mo follow up [...] Systems All other systems reviewed and are negative.[facility] 08-31-2022 NoteCardiology Clinic Note Subjective Cece Mobley is a 77 y.o. year old female patient being seen in follow-up for hypertension. BP at home has been running in the 140s-160s/50s-70s. Her renal function improved following cessation of Spironolactone and reducing Losartan dose. She otherwise feels well without concerns. Patient Active Problem List Diagnosis Closed fracture of orbital floor (blow-out) ([facility]) Epiphora Fracture of orbit ([facility]) Fracture of radial neck Obesity Hypertensive disorder Pain in elbow MANOLO (obstructive sleep apnea) Diabetes ([facility]) Polyneuropathy Family History Problem Relation Name Age of Onset Diabetes Father Heart disease Father Coronary artery disease Father Coronary artery disease Brother Social History Tobacco Use Smoking status: Former Types: Cigarettes Quit date: 1999 Years since quittin.0 Smokeless tobacco: Never Substance [...] 119, BUN 13, creatinine (more content not included)...[facility] 07-14-2022 NoteCONSULTATION CONSULTATION [...] in three months' time unless otherwise indicated.[facility] [id number] Evaluation note* Encounter Date Diagnosis Assessment Notes [...] potential side effects were all discussed today [employer] Other 10-18-2022 NoteContinue to wear cpapUnFirelands Regional Medical Center10-18-2022 NoteContinue amlodipine 10 mg daily- she recently ran out of 10 mg and this morning took 5 mg tablet she had from previous script. Continue coreg 25 mg bid, lasix 40 mg daily, losartan 50 mg daily and hydralazine 50 mg po bid.[facility]10-18-2022 Note Subjective Cece Mobley is a 77 y.o. female. Chief [...] Lab Review: Assessment/Plan There were no encounter diagnoses.[facility]10-18-2022 NoteHPI: Cece Mobley is a 77 y.o. female here for Hypertension HPI Patient here for 1 mo follow up Hypertension. Noted increased renal function after starting aldactone for HTN- therefore we stopped aldactone and cut losartan in 1. Had repeat labs 05/18, after adding hydralazine [...] 3 months with repeat BMP for renal functionJoint Township District Memorial Hospital09-26-2022 NoteI spoke with patient and informed her of medication changes per Veronica Gillespie CNP. RX sent to [facility] and BMP fax[facility]. Patient verbalized understanding. [facility]09-14-2022 NoteF/U with PCP for further managementUnFirelands Regional Medical Center09-14-2022 NoteHypertension remains uncontrolled, will add aldactone 25 [...] BUN 15, CR 0.85 normal K+ 4.8 normalUnFirelands Regional Medical Center09-14-2022 NoteAdded in error and don't know how to get rid of itUnFirelands Regional Medical Center08-25-2022 NoteCONSULTATION CONSULTATION DATE: 04/08/2022 HISTORY OF PRESENT [...] in the office post procedure in May.[facility] [id number] NoteCONSULTATION CONSULTATION DATE: 02/10/2022 HISTORY OF PRESENT [...] plan of care and all questions answered. [facility] Signed and Approved by: BETZAIDA ZIMMER . 02/11/2022 13:38:00[facility]03-22-2022 NoteCONSULTATION PAIN MANAGEMENT CONSULTATION CHIEF COMPLAINT: Low [...] had three nerves released by Dr. 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 She states the pain has [...] would like to proceed. CC: Dr. Bowers [facility] Signed and Approved by: DR SERENITY GARCIA . 11/17/2021 11:24:00[facility] HospitalEvaluation noteNort Nveloped Other Evaluation noteNo assessment information available [facility] Work Phone: Evaluation note* Diagnosis Failed back syndrome Other unspecified back disorder documented in this encounter [facility] HealthcareEvaluation note* Diagnosis Failed back syndrome Other unspecified back disorder documented in this encounter [facility] HealthcareHistory general Narrative - [facility]ortedNoliberty hospital Nveloped Other Hisxnbo general Narrative - Reported* Type Description Date Medical History HTN Medical History DM2 Medical History Osteoporosis Medical History Neuropathy Medical History hyperlipedemia Medical History Hot Flashes/Sweats Medical History copd Medical History MANOLO (obstructive sleep apnea) Surgical History Back surgery x 2 2002/2008 Surgical History JORGE 1993 Surgical History cholecystectomy 1978 Surgical History septoplasty 1970 Surgical History cataract surgery Surgical History eyes surgery Surgical History facial cosmetic surgery Surgical History HYSTERECTOMY Surgical History tonsillectomy Hospitalization History Heart Attack 2012 Hospitalization History see above [employer] Other Chief Complaint and Reason for Visit Chief Complaint Sleep apnea annual f ollow up Advance Directives Advance Directive Response Recorded Date/ Time Advance [...] Active Abdullahi Acosta MD Attending Provider Active Edge Runner Relationship Specialty Start Date End Date Kofi Bowers MD [address] [place] [address] PCP - General Internal Medicine 12/22/22 Edge Runner Relationship Specialty Start Date End Date Kofi Bowers MD [address] [place] [address] PCP - General Internal Medicine 12/22/22 Goals (unrecognized section and content) Goals may be documented in a n alternate sectionNo InformationGoals may be documented in an alternate sectionNo Information REASON FOR VISIT (unrecogniz ed section and content) Reason Onset Date Comments Med Refill 09/29/2023 TRAMADOL DRUG MA RT GAIL Reason Onset Date Comments Med Refill 06/04/2024 INFORMATION SOURCE (unrecogn ized section and content) DATE CREATED AUTHOR 10/19/2022 [facility] DATE CREATED AUTHOR AUTHOR'S ORGANIZ ATION 01/27/2023 [facility] DATE CREATED AUTHOR AUTHOR'S ORGANIZ ATION 09/23/2023 [facility] DATE CREATED AUTHOR AUTHOR'S ORGANIZ ATION 03/20/2024 [facility] DATE CREATED AUTHOR AUTHOR'S ORGANIZ ATION 04/10/2024 [facility] dicsd Specialists [facility] FOR RECORDS PERTAINING TO PATIENTS WHO ARE [...] BE BASED ON THE PRIMARY CLINICAL RECORDS. [employer] provides no warranty or guarantee of the accuracy or completeness of information in this document.
--- NOTE | 2024-06-07 11:44 | P.CN_ITS ---
Consult Note: HPI Data of Consult Patient: known to practice within the last 3 years Requesting Physician: Zoila Kenyon NP Primary Care Provider: BELEN ZALDIVAR Consult Narrative Reason for consult: low back pain Narrative: Cece Mobley a pleasant 79 year old female presents for evaluation and management of chronic low back pain and lumbar radiculopathy with twitching jerking of bilateral feet, hx of lumbar and thoracic fusion at unknown levels. Patient has an extensive hx of low back pain and lumbar radiculopathy, as well as painful diabetic neuropathy unresponsive to >6 weeks of PT, NSAIDs, tylenol. Patient is under the care of Dr Hylton and PCP Dr Hernandez at this time. Patient finds moderate-significant relief from tylenol and tramadol 50-100mg BID PRN. Patient has had trouble with gabapentin and lyrica in the past due to balance issues. Denies loss of bowel/bladder. notable numbness tingling to bilateral feet. no recent imaging available, hx of EMG with unknown results per pt. Pain today 2/10, increasing to 8/10 without medications, with sleep, twisting, lifting, and housework. Pain improved with medications and walking. Recently completed thoracic and lumbar CT with results below. patient is interested in proceeding with a spinal cord stimulator trial. cc:: CC: Zoila Kenyon NP Review of Systems ROS Status of ROS 10 or more systems reviewed and unremark able except as noted in history and below Musculoskeletal Reports: back pain and extremity pain PFSH PFSH Social History Smoking status: Never smoker Meds Home Medications and Allergies Home Medications ?Medication ?Instructions ?Recorded ?Confirmed ?Type acarbose 100 mg tablet 100 mg PO BID 10/19/23 05/10/24 History amlodipine 10 mg tablet 10 mg PO DAILY 10/19/23 05/10/24 History aspirin 81 mg capsule 81 mg PO DAILY 10/19/23 05/10/24 History carvedilol 25 mg tablet 25 mg PO BID 10/19/23 05/10/24 History dulaglutide 4.5 mg/0.5 mL 4.5 mg subcut .weekly 10/19/23 05/10/24 History subcutaneous pen injector (Trulicity) eszopiclone 3 mg tablet 3 mg PO BEDTIME 10/19/23 05/10/24 History furosemide 40 mg tablet 40 mg PO DAILY 10/19/23 05/10/24 History insulin detemir U-100 100 unit/mL 60 unit subcut DAILY 10/19/23 05/10/24 History (3 mL) subcutaneous pen (Levemir FlexPen) liothyronine 25 mcg tablet 12.5 mcg PO BID 10/19/23 05/10/24 History loratadine 10 mg tablet 10 mg PO DAILY PRN allergic 10/19/23 05/10/24 History symptoms losartan 100 1 tab PO DAILY 10/19/23 05/10/24 History mg-hydrochlorothiazide 25 mg tablet lovastatin 20 mg tablet 20 mg PO DAILY 10/19/23 05/10/24 History metformin 1,000 mg tablet 1,000 mg PO BID 10/19/23 05/10/24 History omeprazole 20 mg capsule,delayed 20 mg PO DAILY 10/19/23 05/10/24 History release potassium chloride 20 mEq 20 meq PO DAILY 10/19/23 05/10/24 History tablet,extended release pramipexole 0.5 mg tablet 0.5 mg PO DAILY 10/19/23 05/10/24 History quetiapine 50 mg tablet 50 mg PO DAILY 10/19/23 05/10/24 History tramadol 50 mg tablet 100 mg PO Q12H PRN pain 10/19/23 05/10/24 History Allergies Allergy/AdvReac Type Severity Reaction Status Date / Time iodine Allergy Verified 10/19/23 19:58 levofloxacin (From Levaquin) Allergy Verified 10/19/23 19:58 Exam Constitutional Documenting provider has reviewed patient's vital signs: yes Common normals: no apparent distress, oriented x3, healthy appearing, alert and well nourished General appearance: cooperative [facility] Common normals: normocephalic, hearing grossly normal bilaterally and moist oral mucous membranes Head and scalp: normocephalic Eye Common normals: PERRL Pupil: PERRL Neck & C-Spine Common normals: full ROM General: normal visual inspection Chest Common normals: inspection of chest normal Respiratory Common normals: normal respiratory effort, no retractions and no use of accessory muscles Back & Pelvis Thoracic spine/upper back: thoracic ROM normal, pain with ROM and thoracic spinal tenderness Lumbar spine/lower back: lumbar ROM normal, pain with ROM, lumbar spinal tenderness and straight leg raise negative bilaterally Sacroiliac joints: SI joints normal Other: altered sensation to bilateral feet, edema to BLE left greater than right altered sensation bilateral L4/5/S1 BLE 5/5 strength Extremity Common normals: normal to inspection and full ROM Neuro Common normals: oriented x3, CN's II-XII intact bilaterally, moves all extremities, no focal motor deficits, no sensory deficits noted and deep tendon reflexes 2+ bilaterally Sensorium/orientation: alert Motor exam: strength 5/5 throughout and no movement abnormalities noted Psych Common normals: mental status grossly normal, thought process normal, cooperative, affect normal, speech normal and activity/motor behavior normal Speech: normal speech Thought process: normal thought process Results Imaging tx/lx CT: Attestation: I have reviewed the pertinent imaging results. Radiologist's impression: BONES: Normal alignment of the thoracic and lumbar vertebral bodies with no spondylolisthesis. Mild anterior wedging of the T7 vertebral body, endplate sclerosis suggests chronic change Severe degenerative spondylosis. Moderate diffuse facet osteoarthropathy. Posterior decompression bilateral transpedicular fusion L3-S1 with no mechanical failure DISC SPACES: Moderate to severe multilevel disc space narrowing with endplate sclerosis and vacuum disks. Interbody spacer L5-S1 PARASPINOUS: Negative. No paraspinous abnormality is seen. OTHER: Extensive atherosclerosis Additional Findings Additional findings: If on a controlled substance or opioids, I have checked an OARRS report on this patient and there are no aberrancies noted in the prescribing history.??If on a controlled substance or opioid a drug screen was completed and reviewed within the last year, and if there has not been a drug screen completed we ordered one today to monitor higher risk, state monitored pain medication use. As part of providing excellent, safe, comprehensive care, the following was completed at our patient's visit: 1. A medication reconciliation and review to ensure accurate knowledge of current/active medications, including asking our patients to inform us about any gbrm-vof-eulyxpu medications or herbal remedies/nutritional supplements/alternative remedies. 2. A review to specifically ensure our patients have had annual screening for screening for depression, screening for tobacco use, and screening for unhealthy alcohol use. For concerning screenings had a discussion with the patient, provided patient education, and recommended follow-up with primary care provider when appropriate. If patient noted with a risk of falling, they received education on strength, gait, and balance training to prevent future risk of falling. Assessment and Plan Assessment and Plan (1) Failed back syndrome: (2) History of lumbar fusion: (3) Painful diabetic neuropathy: Plan imaging reviewed, with patients longstanding hx of back pain and bilateral leg/foot pain post lumbar fusion unresponsive to greater than 6 weeks of provider guided HEP, tyenol, cannot take NSAIDs, tramadol, failed gabapentin/pregabalin I recommend patient proceed with [employer] spinal cord stimulator trial. risks vs benefits reviewed. pt agreeable to plan. pt to arrange psychiatric evaluation prior to trial f/u for lead removal
== END 2024-06-07 11:20 | disposition home or self-care (01) ==
LOC: PM 11:20
PROVIDERS: PCP Internal Medicine; Visit Provider Nurse Practitioner
DX: M43.26 Fusion of spine, lumbar region (principal); M96.1 Postlaminectomy syndrome, not elsewhere classified; E11.40 Type 2 diabetes mellitus with diabetic neuropathy, unspecified
CPT/HCPCS: G0463

== ENCOUNTER 2024-07-18 09:55 | Outpatient (OUT) | payer MEDICARE, SELFPAY ==
--- NOTE | 2024-07-18 10:02 | ECG_ITS ---
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
--- OUTSIDE RECORDS SUMMARY | 2024-07-18 10:16 | XMS_ITS | CCD ---
Author Organization [facility] Care Team Providers [facility] Name Role Phone Olamide Ching Unavailable MD Abdullahi Acosta Attending Provider MONI Bowers Primary Care Provider [phone] Abdullahi Acosta Unavailable VERNA, NADIYA Consulting Unavailable [...] DR GLOVER Primary Care Unavailable BOWERS, DR GLOVRE Consulting Unavailable BOWERS, DR GLOVER Attending Unavailable [...] GARCIA ., DR SERENITY Barahona Attending Unavailable AGRCIA ., DR SERENITY Barahona Admitting Unavailable BOWERS, [...] CHRISTENSEN Attending Unavailable KOFI BOWERS Referring Unavailable TATTERSGRUU, KEN Attending Unavailable KOFI BOWERS B Referring Unavailable TATTERSGURU, KEN Attending Unavailable KOFI BOWERS B Referring Unavailable TATTERSGURU, KEN Attending Unavailable ROBINSON KOFI B Referring Unavailable KEMIGURUEDH Attending Unavailable KOFI BOWERS B Referring Unavailable KERVIN, KEN Attending Unavailable KOFI BOWERS B Referring Unavailable ABEL GOODE Attending Unavailable ABEL GOODE Attending Unavailable KOFI BOWERS B Attending Unavailable Allergies Allergy Classification Reported Allergen(s) Allergy Type Date of Onset Reaction(s) Facility (3 sources) Gemfibrozil Drug Allergy muscle atrophy [facility] Other (9 sources) Iodine; Translations: [IODINE] Drug Allergy 11-24-19 19 anaphylaxis, Shortness of breath [facility] Repository (5 sources) levoFLOXacin; Translations: [Levaquin] Drug Allergy 11-17-19 16 tendonopathy [facility] Repository (9 sources) levoFLOXacin; Translations: [LEVOFLOXACIN] Drug Allergy 06-15-20 18 Other [facility] (1 source) Iodine and Iodide Containing Produc Allergy to substance 06-13-20 18 Unknown Reaction [facility] (2 sources) hydrALAZINE Drug Allergy 11-18-19 16 [facility] (1 source) Iodine Drug Allergy 07-31-20 15 [facility] (4 sources) pregabalin; Translations: [PREGABALIN] Drug Allergy 02-25-20 21 Dizziness [facility] Rep[facility] (1 source) SHELLFISH CONTAINING PRODUCTS; Translations: [SHELLFISH CONTAINING PRODUCTS] Propensity to adverse reactions to drug (disorder) 01-25-20 14 [facility] Repository (3 sources) Iodinated Contrast Media; Translations: [Iodinated Contrast Media] Allergy to substance 08-19-19 23 Unknown Reaction [facility] (2 sources) Gemfibrozil Drug Allergy 06-27-20 23 muscle atrophy [facility] (1 source) Iodine Drug Allergy 06-27-20 23 [facility] Rep[facility] (3 sources) Shellfish Allergy to substance 06-12-20 14 Swelling [facility] Work Phone: Medications Current Medications Medication Drug Class(es) Dates Sig (Normalized) Sig (Original) acarbose 100 mg oral tablet (9 sources) alpha-Glucosidas e Inhibitor Start: 01-18-2024 take [...] tablet by javi th twice daily Acarbose 100 mg tablet Active 1 TAB PO Twice daily June 12, 2018 11:00pm acetaminophen 500 mg oral ta blet (6 sources) acetaminophen (T ylenol) 500 MG tablet [...] Jun, Active amLODIPine 10 mg oral tablet (9 sources) Dihydropyridine Calcium Channel Theodora Start: 06-13-2018 take 1 tablet by mouth in the morning amLODIPine (Norvasc) 10 MG tablet Indications: Benign essential hypertension (CMS/HCC) Take 1 tablet (10 mg) by mouth in the morning. 100 tablet 3 07/20/2023 Active ascorbic acid 100 mg/ml oral solution (3 sources) Vitamin C Ascorbic Acid (Vitamin C) 500 MG/5ML liquid 1 capsule 1 (one) time each day at the same time. Active aspirin 81 mg delayed release oral tablet (6 sources) Platelet Aggregation Inhibitor, Nonsteroidal Anti-inflammatory Drug Start: 2018 aspirin 81 MG EC tablet 1 (one) time each day at the same time. 2018 Active Baby Aspirin Act yair biotin 5 mg sublingual tablet (3 sources) Start: 06-13-2018 take 1 capsule under the tongue once daily Biotin 5,000 mcg Tablet, Sublingual Active 1 CAP SUBLINGUAL Daily June 12, 2018 11:00pm calcium citrate 250 mg / cholecalciferol 100 unt oral tablet (3 sources) Vitamin D take 1 tablet by [...] Active cetirizine hydrochloride 10 mg oral tablet (3 sources) Histamine-1 Receptor Antagonist cetirizine (ZyrTEC) 10 MG tablet 1 (one) time each day at the same time. Active cholecalciferol 1.25 mg oral tablet (3 sources) Vitamin D cholecalciferol (Vitamin D-3) 1.25 MG (15587 UT) tablet Vitamin D3 5000IU Active cholecalciferol (Vitamin D-3) 1.25 MG (44136 UT) tablet Vitamin D3 5000IU 0 Active cloNIDine hydrochloride 0.1 mg oral tablet (3 sources) Central alpha-2 Adrenergic Agonist Start: 06-13-2018 take 1 tablet by mouth twice daily Clonidine Hcl 0.1 mg tablet Active 1 TAB PO Twice daily June 12, 2018 11:00pm 0.5 ml dulaglutide 3 mg/ml auto-injector (3 sources) GLP-1 Receptor Agonist Trulicity 1.5 MG/0.5ML as directed Subcutaneous As Directed Active DULoxetine 60 mg delayed release oral capsule (6 sources) Serotonin and Norepinephrine Reuptake Inhibitor Start: 06-13-2018 Duloxetine 60 mg capsule,delayed release(DR/EC) Active June 12, 2018 11:00pm Start: 06-13-2018 Duloxetine Act yair June 12, 2018 11:00pm furosemide 40 mg oral tablet (9 sources) Loop Diuretic Start: 06-13-2018 take 1 tablet by mouth in the morning furosemide (Lasix) 40 MG tablet Indications: Benign essential hypertension (CMS/HCC) TAKE 1 TABLET (40 MG) BY MOUTH IN THE MORNING. 30 tablet 10 01/18/2024 Active hydrALAZINE hydrochloride 50 mg oral tablet (1 source) Arteriolar Vasodilator hydrALAZINE (Apresoline) 50 MG tablet every 12 (twelve) hours. 0 Active hydroCHLOROthiazide 25 mg / losartan potassium 100 mg oral tablet (3 sources) Thiazide Diuretic, Angiotensin 2 Receptor Theodora Start: 03-05-2024 take 1 tablet by mouth once daily losartan-hydroCHL OROthiazide (Hyzaar) 100-25 MG tablet Indications: Hypertension, unspecified [...] ml insulin detemir 100 unt/ml pen injector (6 sources) Insulin Analog Start: 06-13-2018 Insulin Detemi r U-100 100 unit/mL (3 mL) insulin pen Active 0 .ROUTE .COMPLEX June 12, 2018 11:00pm as directed insulin detemir (Levemir FlexTouch) 100 UNIT/ML pen INJECT 60 UNITS SUBCUTANEOUSLY EACH MORNING for 25 Active liothyronine sodium 0.025 mg oral tablet (10 sources) l-Triiodothyronine Start: 04-26-2023 End: 07-02-2024 take 0.5 tablet by mouth twice daily liothyronine (Cytomel) 25 MCG tablet Indications: Hypothyroidism, unspecified type (CMS/HCC) 0.5 tablet on an empty stomach Orally two times daily. D.A.W. as Sigma or [employer] Brand ONLY for 90 days 200 tablet 3 07/02/2024 Active Start: 06-13-2018 take 1 tablet by javi th once daily Liothyronine 25 mcg tablet Active 0.5 TAB PO Daily June 12, 2018 11:00pm Liothyronine Sod ium 25 MCG as directed Orally bid Active loratadine 10 mg oral tablet (9 sources) Start: 03-20-2024 take 1 tablet by [...] by mouth in the morning. 30 tablet 03/11/2023 03/10/2024 Active Start: 06-13-2018 take 1 tablet by javi th once daily Loratadine 10 mg Capsule Active 1 TAB PO Daily June 12, 2018 11:00pm losartan potassium 100 mg oral tablet (6 sources) Angiotensin 2 Receptor Theodora Start: 06-13-2018 take 1 tablet by mouth once daily Losartan 100 mg tablet Active 1 TAB PO Daily June 12, 2018 11:00pm lovastatin 20 mg oral tablet (9 sources) HMG-CoA Reductase Inhibitor Start: 06-13-2018 take 1 tablet by mouth once daily lovastatin (Mevacor) 20 MG tablet Indications: Congenital renal artery anomaly TAKE 1 TABLET BY MOUTH ONCE DAILY 30 tablet 09/21/2023 Active melatonin 5 mg oral capsule (6 sources) Start: 06-13-2018 Melatonin 5 mg Capsule Active June 12, 2018 11:00pm Start: 06-13-2018 Melatonin Acti ve June 12, 2018 11:00pm Melatonin 5 MG O rally qhs Active metFORMIN hydrochloride 1000 mg oral tablet (9 sources) Biguanide Start: 06-13-2018 take 1 tablet by mouth in the morning metFORMIN (Glucophage) 1000 MG tablet Indications: 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 TAKE WITH MEALS. 60 tablet 01/18/2024 Active 24 hr metoprolol succinate 50 mg extended release oral tablet (9 sources) beta-Adrenergic Theodora Start: 06-13-2018 take 1 tablet by mouth twice daily Metoprolol Succinate 50 mg tablet extended release 24 hr Active 1 TAB PO Twice daily June 12, 2018 11:00pm take 2 tablets by [facility] every twenty-four hours Toprol XL 50 MG 2 tablet Orally Once a day Active Metoprolol Succi florencio Active Multivitamin preparation (3 sources) Multivitamin Act yair naproxen 500 mg oral tablet (1 source) Nonsteroidal Anti-inflammatory Drug naproxen (Naprosy n) 500 MG tablet every 12 (twelve) hours. 0 Active omeprazole 20 mg delayed release oral capsule (9 sources) Proton Pump Inhibitor Start: 2017 take 1 capsule by mouth in the morning omeprazole (PriLOSEC) [address] capsule Indications: Gastroesophageal reflux disease without esophagitis TAKE 1 CAPSULE (20 MG) BY MOUTH IN THE MORNING. 30 capsule 10 01/18/2024 Active 12 hr orphenadrine citrate 100 mg extended release oral tablet (2 sources) Muscle Relaxant Start: 2023 take 1 tablet by mouth twice daily [...] chloride 20 meq extended release oral tablet (9 sources) Start: 2017 Potassium Chloride 20 mEq tablet,ER particles/crystals Active 1 PACKET PO Daily June 12, 2018 11:00pm Start: 06-13-2018 Potassium Chlo ride Active 1 PACKET PO Daily June 12, 2018 11:00pm pramipexole dihydrochloride 0.75 mg oral tablet (1 source) Nonergot Dopamine Agonist Start: 07-20-2023 take 1 tablet by mouth in the morning pramipexole (Mirapex) 0.75 MG tablet Indications: Chronic pain syndrome Take 1 tablet (0.75 mg) by mouth in the morning. 30 tablet 2 07/20/2023 Active pregabalin 100 mg oral capsule (6 sources) Start: 06-13-2018 take 1 tablet by mouth twice daily Pregabalin 100 mg capsule Active 1 TAB PO Twice daily June 12, 2018 11:00pm QUEtiapine 50 mg oral tablet (12 sources) Atypical Antipsychotic Start: 06-13-2018 take 1 tablet by mouth once daily QUEtiapine (SEROquel) 50 MG tablet Indications: Insomnia, unspecified type TAKE 1 TABLET BY MOUTH ONCE DAILY 30 tablet 10 10/20/2023 Active rOPINIRole 2 mg oral tablet (2 sources) Nonergot Dopamine Agonist Start: 01-18-2024 take 0.5 tablet by mouth at bedtime rOPINIRole (Requip) 2 MG tablet Indications: Restless Leg Syndrome Take 0.5 tablets (1 mg) by mouth at bedtime 30 tablet 2 01/18/2024 Active Trulicity 4.5 MG/0.5ML solution pen-injector (3 sources) Start: 08-23-2023 Trulicity 4.5 MG/0.5ML solution pen-injector Indications: 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 Active Vitamin E 400 UNIT (3 sources) take 1 capsule by [facility] once daily Vitamin E 400 UNIT 1 capsule Orally Once a day Active zolpidem tartrate 6.25 mg extended release oral tablet (3 sources) gamma-Aminobutyric Acid-ergic Agonist Start: 11-18-2023 zolpidem [...] Rocephin 500 m g Jul, 1 grm traMADol hydrochloride 50 mg oral tablet (12 sources) Opioid Agonist Start: 05-07-2024 End: 08-01-2024 take 1 tablet by mouth every six hours for pain traMADol (Ultram) 50 MG tablet Indications: Failed back syndrome Take 1 tablet (50 mg) by mouth every 6 (six) hours if needed for severe pain 120 tablet 06/04/2024 07/02/2024 Discontinued (Reorder) Start: 09-29-2023 take 1 tablet by javi th every six hours for pain traMADol (Ultram) 50 MG tablet Indications: Failed back syndrome Take 1 tablet (50 mg) by mouth every 6 (six) hours if needed for severe pain 120 tablet 0 09/29/2023 Active Start: 06-13-2018 End: 09-29-2023 take 1 tablet by mouth every six hours for pain traMADol (Ultram) 50 MG tablet Indications: Failed back syndrome Take 1 tablet (50 mg) by mouth every 6 (six) hours if needed for severe pain 120 tablet 0 08/29/2023 09/29/2023 Discontinued (Reorder) take 1 tablet by javi th every twenty-four hours traMADol HCl 50 MG 1 tablet as needed Orally Once a day Active Problems Active Problems Problem Classification Problem Date Documented Da te Episodic/Chronic Cardiac and circulatory congenital anomalies (3 sources) Congenital anomaly of renal blood vessel; 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] Onset: 11-25-2015 12-14-2022 Chronic Diabetes mellitus with complications (12 sources) Disorder of nervous system due to type 2 diabetes mellitus; Translations: [Type 2 diabetes mellitus with other diabetic neurological complication] Onset: 08-15-2014 12-14-2022 Chronic Diabetes mellitus without complication (4 sources) Type 2 diabetes mellitus without complications; Translations: [Diabetes mellitus] Onset: 01-24-2014 03-11-2023 Chronic Disorders of lipid metabolism (4 sources) Hyperlipidemia, unspecified; Translations: [Mixed hyperlipidemia] Onset: 01-07-2022 12-14-2022 Chronic Esophageal disorders (4 sources) Gastro-esophageal reflux disease without esophagitis; Translations: [Gastroesophageal reflux disease] Onset: 01-07-2022 12-14-2022 Chronic Essential hypertension (10 sources) Essential (primary) hypertension; Translations: [Benign essential hypertension] Onset: 01-07-2022 Chronic Malaise and fatigue (3 sources) Fatigue; Translations: [Chronic fatigue, unspecified] Onset: 12-14-2022 12-14-2022 Chronic Menopausal disorders (7 sources) Other primary ovarian failure; Translations: [Decreased estrogen level] Onset: 01-04-2022 Chronic Miscellaneous mental health disorders (6 sources) Chronic insomnia; Translations: [Psychophysiologic insomnia] Chronic Other diseases of veins and lymphatics (3 sources) Venous hypertension of lower limb; Translations: [Chronic venous hypertension (idiopathic) without complications of unspecified lower extremity] Onset: 12-21-2022 12-21-2022 Chronic Other eye disorders (3 sources) Bilateral vitreous floaters; Translations: [Other vitreous opacities, bilateral] Onset: 12-14-2022 12-14-2022 Chronic Other hereditary and degenerative nervous system conditions (1 source) Restless legs syndrome; Translations: [RESTLESS LEGS SYNDROME] Onset: 11-06-2021 Chronic Other hereditary and degenerative nervous system conditions (2 sources) Restless legs; Translations: [Restless legs syndrome] Onset: 01-18-2024 01-18-2024 Chronic Other lower respiratory disease (3 sources) Disorder of lung; Translations: [Other disorders of lung] Episodic Other nervous system disorders (1 source) Polyneuropathy, unspecified; Translations: [POLYNEUROPATHY UNSPECIFIED] Onset: 04-14-2022 Chronic Other nervous system disorders (3 sources) Chronic pain syndrome; Translations: [Chronic pain syndrome] Onset: 12-14-2022 12-14-2022 Chronic Other nervous system disorders (3 sources) Difficulty walking; Translations: [Difficulty in walking, not elsewhere classified] Onset: 12-14-2022 12-14-2022 Chronic Other nervous system disorders (3 sources) Polyneuropathy; Translations: [Polyneuropathy, unspecified] Onset: 01-24-2014 03-11-2023 Chronic Other nutritional; endocrine; and metabolic disorders (6 sources) Obese class II; Translations: [Body mass index (BMI) 35.0-35.9, adult] Chronic Other nutritional; endocrine; and metabolic disorders (1 source) Body mass index (BMI) 35.0-35.9, adult Onset: 07-02-2021 Resolved: 07-02-2021 Chronic Other nutritional; endocrine; and metabolic disorders (3 sources) Body mass index 30+ - obesity; Translations: [Obesity, unspecified] Onset: 04-21-2020 03-11-2023 Chronic Other nutritional; endocrine; and metabolic disorders (3 sources) Lipoprotein deficiency disorder; Translations: [Lipoprotein deficiency] Onset: 05-01-2018 03-11-2023 Chronic Other upper respiratory disease (3 sources) Allergic rhinitis; Translations: [Other allergic rhinitis] Onset: 12-14-2022 12-14-2022 Chronic Peripheral and visceral atherosclerosis (3 sources) Peripheral vascular disease; Translations: [Peripheral vascular disease, unspecified] Onset: 12-14-2022 12-14-2022 Chronic Residual codes; unclassified (7 sources) Obstructive sleep apnea syndrome; Translations: [Obstructive sleep apnea (adult) (pediatric)] Onset: 04-11-2019 03-11-2023 Chronic Residual codes; unclassified (6 sources) Obstructive sleep apnea (adult) (pediatric); Translations: [Obstructive sleep apnea (adult)(pediatric)] Onset: 07-02-2021 Resolved: 07-02-2021 Chronic Residual codes; unclassified (1 source) Obstructive sleep apnea (adult)(pediatric); Translations: [Obstructive sleep apnea (adult) (pediatric)] Onset: 06-27-2023 Chronic Residual codes; unclassified (3 sources) 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 airway pressure ventilation; Translations: [Dependence on other enabling machines and devices] Onset: 12-14-2022 12-14-2022 Chronic Residual codes; unclassified (3 sources) Initial insomnia; Translations: [Other insomnia] Onset: 12-14-2022 12-14-2022 Chronic Spondylosis; intervertebral disc disorders; other back problems (16 sources) Spondylosis without myelopathy or radiculopathy, lumbar [...] right eye, initial encounter] Onset: 01-06-2022 Episodic Thyroid disorders (1 source) Hypothyroidism; Translations: [Hypothyroidism, unspecified] 07-02-2024 Chronic Unclassified (3 sources) LOW BACK PAIN, UNSPECIFIED; Translations: [LOW BACK PAIN, UNSPECIFIED] Onset: 11-04-2021 Unclassified (2 sources) Medication Problem; Translations: [Medication Problem] Onset: 01-03-2023 Unclassified (1 source) Eye Pain Onset: 03-18-2024 Unclassified (1 source) right eye issue Onset: 03-18-2024 Past or Other Problems Problem Classification Problem Date Documented Date Episodic/Chronic Blindness and vision defects (3 sources) Diplopia; Translations: [Diplopia] Onset: 03-11-2023 03-11-2023 Episodic Conditions associated with dizziness or vertigo (2 sources) Vertigo; Translations: [Dizziness and giddiness] Onset: 10-27-2023 10-27-2023 Episodic E Codes: Fall (1 source) Unspecified fall, initial encounter; Translations: [UNSPECIFIED FALL INITIAL ENCOUNTER] Onset: 01-07-2022 Episodic Fracture of upper limb (3 sources) Fracture of radial neck; Translations: [Displaced fracture of neck of unspecified radius, initial encounter for closed fracture] Onset: 03-11-2023 03-11-2023 Episodic Mood disorders (2 sources) Mood disorders Onset: 04-09-2024 04-09-2024 Other aftercare (1 source) FDC (current) use of insulin; Translations: [SHELTER CURRENT USE OF INSULIN] Onset: 01-27-2022 Episodic Other aftercare (1 source) exterminator helper termite (current) use of aspirin; Translations: [FITTER TACKER CURRENT USE OF ASPIRIN] Onset: 01-07-2022 Episodic Other aftercare (1 source) [employer]DC (current) use of oral hypoglycemic drugs; Translations: [FITTER TACKER USE ORAL HYPOGLYCEMIC DX] Onset: 01-07-2022 Episodic Other aftercare (1 source) Other intermediate frame tender (current) drug therapy; Translations: [OTH SHELTER CURRENT DRUG THERAPY] Onset: 01-07-2022 Episodic Other aftercare (3 sources) Long-term current use of insulin; Translations: [exterminator helper termite (current) use of insulin] Onset: 01-28-2016 03-11-2023 Episodic Other and unspecified benign neoplasm (3 sources) Adenomatous polyp of colon ; Translations: [Benign neoplasm of ascending colon] Onset: 12-14-2022 12-14-2022 Episodic Other and unspecified benign neoplasm (3 sources) History of polyp of colon; Translations: [Personal history of colonic polyps] Onset: 06-01-2018 03-11-2023 Episodic Other and unspecified benign neoplasm (3 sources) Benign neoplasm of colon; Translations: [Benign neoplasm of colon, unspecified] Onset: 06-27-2018 03-11-2023 Episodic Other bone disease and musculoskeletal deformities (3 sources) Osteopenia; Translations: [Other specified disorders of bone density and structure, unspecified site] Onset: 12-14-2022 12-14-2022 Episodic Other connective tissue disease (1 source) Arthrodesis status; Translations: [ARTHRODESIS STATUS] Onset: 01-27-2022 Episodic Other connective tissue disease (3 sources) Trigger thumb of left hand; Translations: [Trigger thumb, left thumb] Onset: 12-14-2022 12-14-2022 Episodic Other connective tissue disease (3 sources) Acquired trigger finger; Translations: [Trigger finger, unspecified finger] Onset: 01-15-2021 03-11-2023 Episodic Other diseases of veins and lymphatics (3 sources) Peripheral venous insufficiency; Translations: [Venous insufficiency (chronic) (peripheral)] Onset: 12-14-2022 12-14-2022 Episodic Other eye disorders (3 sources) Lower eyelid ectropion; Translations: [Unspecified ectropion of unspecified eye, unspecified eyelid] Onset: 03-11-2023 03-11-2023 Episodic Other eye disorders (3 sources) Epiphora; Translations: [Unspecified epiphora, unspecified side] Onset: 04-08-2022 03-11-2023 Episodic Other injuries and conditions due to external causes (3 sources) History of fall; Translations: [History of falling] Onset: 10-02-2015 03-11-2023 Episodic Other non-traumatic joint disorders (3 sources) Pain in elbow; Translations: [Pain in unspecified elbow] Onset: 03-11-2023 03-11-2023 Episodic Other nutritional; endocrine; and metabolic disorders (3 sources) Cholesterol level - finding; Translations: [Lipoprotein deficiency] Onset: 12-14-2022 Resolved: 12-14-2022 12-14-2022 Chronic Residual codes; unclassified (1 source) Insomnia, unspecified; Translations: [INSOMNIA UNSPECIFIED] Onset: 07-17-2022 Episodic Residual codes; unclassified (2 sources) Localized edema; Translations: [Localized edema] Onset: 09-28-2022 Episodic Residual codes; unclassified (3 sources) Insomnia; Translations: [Insomnia, unspecified] Onset: 06-10-2015 03-11-2023 Episodic Residual codes; unclassified (3 sources) Family history of malignant neoplasm of gastrointestinal tract; Translations: [Family history of malignant neoplasm of digestive organs] Onset: 06-01-2018 03-11-2023 Episodic Screening and history of mental health and substance abuse codes (3 sources) Ex-smoker; Translations: [Personal history of nicotine dependence] Onset: 10-22-2015 03-11-2023 Episodic Skull and face fractures (6 sources) Closed fracture of orbital floor (blow-out); Translations: [Fracture of orbital floor, unspecified side, initial encounter for closed fracture] Onset: 03-11-2023 03-11-2023 Episodic Thyroid disorders (3 sources) Sick-euthyroid syndrome; Translations: [Sick-euthyroid syndrome] Onset: 12-14-2022 12-14-2022 Episodic Unclassified (1 source) LOW BACK PAIN, UNSPECIFIED; Translations: [LOW BACK PAIN, UNSPECIFIED] Onset: 10-30-2021 Results Test Name Value Interpretation Reference Range Facility 36on 01-26-2023 36 Follow-up in 3 months as planned. Thanks [facility] Office Visiton 01-03-2023 Follow-up visit [id number] Cece Mobley 1945 F Date Provider Department Center 01/03/2023 URI [facility] Family History Problem Relation Age of Onset Diabetes Father Heart disease Father Coronary artery disease Father Coronary artery disease Brother Family Status - Relation Status Age at Father Brother Level of Service:74160 [place] OFFICE/OUTPATIENT ESTABLISHED LOW MDM 20-29 MIN Reason for Visit and Comments: Medication Problem [65] Normal [facility] Office Visiton 09-28-2022 Follow-up visit [id number] Cece Mobley Enrike 1945 F Date Provider Department Center 09/28/2022 [id number] Family History Problem Relation Age of Onset Diabetes Father Heart disease Father Coronary artery disease Father Coronary artery disease Brother Family Status - Relation Status Age at Father Brother Level of Service:55287 [place] OFFICE/OUTPATIENT ESTABLISHED LOW MDM 20-29 MIN Reason for Visit and Comments: Hypertension [249588] Normal [facility] PROF CHEM 8 (BAS METB)on Anion gap [Moles/Vol] 11.6 mmol/L Normal [facility] Comment on above: Performed By: #### B MP #### [facility] [address] [place] [address] Dr. Rose Chadwick Calcium [Mass/Vol] 9.4 mg/dL Normal 8.5-10.1 [facility] Comment on above: Performed By: #### B MP #### [facility] [address] [address] [address] Rose Chadwick Chloride [Moles/Vol] 101 mmol/L Normal 98-107 [facility] [place] Comment on above: Performed By: #### B MP #### [facility] [address] [address] [address] Rose Chadwick CO2 [Moles/Vol] 32.6 mmol/L Critically high 21.0-32.0 [facility] [place] Comment on above: Performed By: #### B MP #### [facility] [address] [address] [address] Rose Chadwick Creatinine [Mass/Vol] 0.86 mg/dL Normal 0.55-1.02 [facility] [place] Comment on above: Performed By: #### B MP #### [facility] [address] [address] [address] Rose Chadwick EGFR-AF EGYPTIAN >60 Normal >=60 [facility] Comment on above: Performed By: #### B MP #### [facility] [address] [address] [address] Rose Chadwick EGFR-NON AF EGYPTIAN >60 Normal >=60 [facility] [place] Comment on above: Performed By: #### B MP #### [facility] [address] [address] [address] Rose Chadwick Glucose [Mass/Vol] 108 mg/dL Critically high 74-106 T [facility] Comment on above: Performed By: #### B MP #### [facility] [address] [address] [address] Rose Chadwick Potassium [Moles/Vol] 4.2 mmol/L Normal 3.5-5.1 [facility] [place] Comment on above: Performed By: #### B MP #### [facility] [address] [address] [address] Rose Chadwick Sodium [Moles/Vol] 141 mmol/L Normal 136-145 [facility] Comment on above: Performed By: #### B MP #### [facility] [address] [address] [address] Rose Chadwick Urea nitrogen [Mass/Vol] 15.0 mg/dL Normal 7.0-18.0 [facility] [place] Comment on above: Performed By: #### B MP #### [facility] [address] [address] [address] Rose Chadwick Urea nitrogen/Creatinine [Mass ratio] 17.4 mg/mg Normal [facility] [place] Comment on above: Performed By: #### B MP #### [facility] [address] [address] [address] Rose Chadwick 37on 08-31-2022 37 -Obtain an arm BP monitor, Omron brand is preferred -Check blood pressure at least once daily 2-3 hours after taking medications - Stop taking Losartan -Start taking Losartan-hydrochloro thiazide -Check labs in 1 week Normal [facility] Office Visiton 08-31-2022 Follow-up visit [id number] Cece Mobley 1945 F Date Provider Department Center 08/31/2022 [id number] DEL TORO [facility] Family History Problem Relation Age of Onset Diabetes Father Heart disease Father Coronary artery disease Father Coronary artery disease Brother Family Status - Relation Status Age at Father Brother Level of Service:22288 [place] OFFICE/OUTPATIENT ESTABLISHED LOW MDM 20-29 MIN Reason for Visit and Comments: Hypertension [821752] Normal [facility] PROF CHEM 8 (BAS METB)on Anion gap [Moles/Vol] 11.9 mmol/L Normal [facility] [place] Comment on above: Performed By: #### B MP #### [facility] [address] [address] [address] Rose Chadwick Calcium [Mass/Vol] 9.0 mg/dL Normal 8.5-10.1 [facility] Comment on above: Performed By: #### B MP #### [facility] [address] [address] [address] Rose Chadwick Chloride [Moles/Vol] 103 mmol/L Normal 98-107 [facility] [place] Comment on above: Performed By: #### B MP #### [facility] [address] [address] [address] Rose Chadwick CO2 [Moles/Vol] 30.3 mmol/L Normal 21.0-32.0 [facility] Comment on above: Performed By: #### B MP #### [facility] [address] [address] [address] Rose Chadwick Creatinine [Mass/Vol] 0.84 mg/dL Normal 0.55-1.02 [facility] [place] Comment on above: Performed By: #### B MP #### [facility] [address] [address] [address] Rose Chadwick EGFR-AF EGYPTIAN >60 Normal >=60 [facility] Comment on above: Performed By: #### B MP #### [facility] [address] [address] [address] Rose Chadwick EGFR-NON AF EGYPTIAN >60 Normal >=60 [facility] [place] Comment on above: Performed By: #### B MP #### [facility] [address] [address] [address] Rose Chadwick Glucose [Mass/Vol] 119 mg/dL Critically high 74-106 [facility] Comment on above: Performed By: #### B MP #### [facility] [address] [address] [address] Rose Chadwick Potassium [Moles/Vol] 4.2 mmol/L Normal 3.5-5.1 [facility] [place] Comment on above: Performed By: #### B MP #### [facility] [id number] Rose Chadwick Sodium [Moles/Vol] 141 mmol/L Normal 136-145 [facility] Comment on above: Performed By: #### B MP #### [facility] [address] [address] [address] Rose Chadwick Urea nitrogen [Mass/Vol] 13.0 mg/dL Normal 7.0-18.0 [facility] [place] Comment on above: Performed By: #### B MP #### [facility] [address] [address] [address] Rose Chadwick Urea nitrogen/Creatinine [Mass ratio] 15.5 mg/mg Normal [facility] [place] Comment on above: Performed By: #### B MP #### [facility] [id number] Rose Chadwick Follow-Upon 06-01-2022 Follow-Up [id number] Cece Mobley 1945 F Date Provider Department Center 06/01/2022 NADIYA CAMERON [facility] Family History Problem Relation Age of Onset Diabetes Father Heart disease Father Coronary artery disease Father Coronary artery disease Brother Family Status - Relation Status Age at Father Brother Level of Service:38769 [place] OFFICE/OUTPATIENT ESTABLISHED LOW MDM 20-29 MIN Reason for Visit and Comments: Hypertension [296683] Normal [facility] PROF CHEM 8 (BAS METB)on Anion gap [Moles/Vol] 11.1 mmol/L Normal [facility] [place] Comment on above: Performed By: #### B MP #### [facility] [id number] Rose Chadwick Calcium [Mass/Vol] 9.0 mg/dL Normal 8.5-10.1 [facility] Comment on above: Performed By: #### B MP #### [facility] [address] [address] [address] Rose Chadwick Chloride [Moles/Vol] 103 mmol/L Normal 98-107 [facility] [place] Comment on above: Performed By: #### B MP #### [facility] [address] [address] [address] Rose Chadwick CO2 [Moles/Vol] 29.6 mmol/L Normal 21.0-32.0 [facility] Comment on above: Performed By: #### B MP #### [facility] [address] [address] [address] Rose Chadwick Creatinine [Mass/Vol] 1.22 mg/dL Critically high 0.55-1.02 [facility] [place] Comment on above: Performed By: #### B MP #### [facility] [address] [address] [address] Rose Chadwick EGFR-AF EGYPTIAN 52 mL/min/1.73m2 Critically low >=60 [facility] [place] Comment on above: Performed By: #### B MP #### [facility] [address] [address] [address] Rose Chadwick EGFR-NON AF EGYPTIAN 43 mL/min/1.73m2 Critically low >=60 [facility] [place] Comment on above: Performed By: #### B MP #### [facility] [address] [address] [address] Rose Chadwick Glucose [Mass/Vol] 112 mg/dL Critically high 74-106 [facility] Comment on above: Performed By: #### B MP #### [facility] [address] [address] [address] Rose Chadwick Potassium [Moles/Vol] 4.7 mmol/L Normal 3.5-5.1 [facility] [place] Comment on above: Performed By: #### B MP #### [facility] [address] [address] [address] Rose Chadwick Sodium [Moles/Vol] 139 mmol/L Normal 136-145 [facility] Comment on above: Performed By: #### B MP #### [facility] [address], [place] [address] [address] Rose Chadwick Urea nitrogen [Mass/Vol] 23.0 mg/dL Critically high 7.0-18.0 [facility] [place] Comment on above: Performed By: #### B MP #### [facility] [address], [place] [address] Dr[address] Rose Chadwick Urea nitrogen/Creatinine [Mass ratio] 18.9 mg/mg Normal [facility] [place] Comment on above: Performed By: #### B MP #### [facility] [address], [place] [address] Dr. Rose Chadwick 30on 05-10-2022 30 Recent [...] changes on voice mail message. Nadiya Gillespie DIRECTOR DIGITAL [employer]ATEGY Division of Cardiology, [facility]- [phone] Pager- [phone] Email- [email or web address] Normal [facility] Documentationon 05-10-2022 Documentation [id number] Cece Mobley 1945 F Date Provider Department Center 05/10/2022 120-NADIYA GILLESPIE [facility]. Family History Problem Relation Age of Onset [...] med changes on voice mail message. Normal [facility] Orders Onlyon 05-10-2022 Orders Only [id number] Cece Mobley 1945 F Date Provider Department Center 05/10/2022 CA AMANDA [facility] Family History Problem Relation Age of Onset Diabetes Father Heart disease Father Coronary artery disease Father Coronary artery disease Brother Family Status - Relation Status Age at Father Brother Normal [facility] PROF CHEM 8 (BAS METB)on Anion gap [Moles/Vol] 13.4 mmol/L Normal [facility] [place] Comment on above: Performed By: #### B MP ####[facility] [address] [address] Rose Chadwick Calcium [Mass/Vol] 9.1 mg/dL Normal 8.5-10.1 [facility] Comment on above: Performed By: #### B MP ####[facility] [address] [place], [place] [address]Dr. Rose Chadwick Chloride [Moles/Vol] 103 mmol/L Normal 98-107 [facility] [place] Comment on above: Performed By: #### B MP ####[facility] [address] [place], [place] [address]Dr. Rose Chadwick CO2 [Moles/Vol] 28.3 mmol/L Normal 21.0-32.0 [facility] Comment on above: Performed By: #### B MP ####[facility] [address] [address]Dr[address] Rose Chadwick Creatinine [Mass/Vol] 1.42 mg/dL Critically high 0.55-1.02 [facility] [place] Comment on above: Performed By: #### B MP ####[facility] [address] [place], [place] [address]Dr. Rose Chadwick EGFR-AF EGYPTIAN 43 mL/min/1.73m2 Critically low >=60 [facility] Comment on above: Performed By: #### B MP ####[facility] [address] [place], [place] [address]Dr. Rose Chadwick EGFR-NON AF EGYPTIAN 36 mL/min/1.73m2 Critically low >=60 [facility] [place] Comment on above: Performed By: #### B MP ####[facility] [address] [address]Dr. Rose Chadwick Glucose [Mass/Vol] 125 mg/dL Critically high 74-106 T [facility] Comment on above: Performed By: #### B MP ####[facility] [address] [address]Dr. Rose Chadwick Potassium [Moles/Vol] 5.7 mmol/L Critically high 3.5-5.1 [facility] [place] Comment on above: Performed By: #### B MP ####[facility] [address] [address]Dr. Rose Chadwick Sodium [Moles/Vol] 139 mmol/L Normal 136-145 [facility] Comment on above: Performed By: #### B MP ####[facility] [address] [address]Dr. Rose Chadwick Urea nitrogen [Mass/Vol] 28.0 mg/dL Critically high 7.0-18.0 [facility] [place] Comment on above: Performed By: #### B MP ####[facility] [address] [address]Dr. Rose Chadwick Urea nitrogen/Creatinine [Mass ratio] 19.7 mg/mg Normal [facility] [place] Comment on above: Performed By: #### B MP ####[facility] [address] [address]Dr[address] Rose Chadwick Office Visiton 04-28-2022 Follow-up visit [id number] Cece Mobley 1945 F Date Provider Department Center 04/28/2022 NADIYA CAMERON [facility] Family History Problem Relation Age of Onset Diabetes Father Heart disease Father Coronary artery disease Father Coronary artery disease Brother Family Status - Relation Status Age at Father Brother Level of Service:60677 [place] OFFICE/OUTPATIENT ESTABLISHED MOD MDM 30-39 MIN Reason for Visit and Comments: Hypertension [711450] - Patient here for 3 mo follow up hypertension. Denies chest pain and SOB. Normal [facility] Abstracton 04-16-2022 Abstract [id number] Cece Mobley 1945 F Date Provider Department Center 04/16/2022 CA AMANDA [facility] Family History Problem Relation Age of Onset Diabetes Father Heart disease Father Coronary artery disease Father Coronary artery disease Brother Family Status - Relation Status Age at Father Brother Normal [facility] POINT OF CARE GLUCOSEon 01-13 Glucose [Mass/Vol] 120 mg/dL Critically high 74-106 T [facility] Comment on above: Performed By: #### P OCGLUC #### [facility] [address] [address] [address] PELVIS WO CONon CT PELVIS WO CON EXAMINATION: CT PELVIS [...] by: JOE MUKHERJEE Date: 2022-01-06 12:14 Normal [facility] [place] XR DEXA BONE DENSITYon 01-04 XR DEXA [...] by: JOE MUKHERJEE Date: 2022-01-04 11:51 Normal [facility] [place] CT LSPINE WO CONon 2 CT LSEXCELLO WO CON EXAMINATION: CT LSEXCELLO WO CON, 11/30/2021 12:53 PM EDT HISTORY: [...] by: JOE MUKHERJEE Date: 2021-11-30 16:48 Normal [facility] PROF CHEM 8 (BAS METB)on Anion gap [Moles/Vol] 13.3 mmol/L Normal [facility] [place] Comment on above: Performed By: #### B MP ####[facility] [address] [address]. Rose Chadwick Calcium [Mass/Vol] 8.8 mg/dL Normal 8.5-10.1 [facility] Comment on above: Performed By: #### B MP ####[facility] [address] [address]Dr. Rose Chadwick Chloride [Moles/Vol] 101 mmol/L Normal 98-107 [facility] [place] Comment on above: Performed By: #### B MP ####[facility] [address] [address]Dr. Rose Chadwick CO2 [Moles/Vol] 29.5 mmol/L Normal 22.0-30.0 [facility] Comment on above: Performed By: #### B MP ####[facility] [address] [address]Dr. Rose Chadwick Creatinine [Mass/Vol] 0.85 mg/dL Normal 0.52-1.04 [facility] [place] Comment on above: Performed By: #### B MP ####[facility] [address] [address]Dr. Rose Chadwick EGFR-AF EGYPTIAN >60 Normal >=60 [facility] Comment on above: Performed By: #### B MP ####[facility] [address] [address]Dr. Rose Chadwick EGFR-NON AF EGYPTIAN >60 Normal >=60 [facility] Comment on above: Performed By: #### B MP ####[facility] [address] [place], [place] [address]Us. Rose Chadwick Glucose [Mass/Vol] 116 mg/dL Critically high 74-106 T [facility] Comment on above: Performed By: #### B MP ####[facility] [address] [place], [place] [address]Uv. Rose Chadwick Potassium [Moles/Vol] 4.8 mmol/L Normal 3.4-5.0 [facility] [place] Comment on above: Performed By: #### B MP ####[facility] [address] [id number] Rose Chadwick Sodium [Moles/Vol] 139 mmol/L Normal 137-145 [facility] Comment on above: Performed By: #### B MP ####[facility] [address] [id number] Rose Chadwick Urea nitrogen [Mass/Vol] 15.0 mg/dL Normal 7.0-18.0 [facility] [place] Comment on above: Performed By: #### B MP ####[facility] [address] [id number] Rose Chadwick Urea nitrogen/Creatinine [Mass ratio] 17.6 mg/mg Normal [facility] [place] Comment on above: Performed By: #### B MP ####[facility] [address] [id number]. Rose Chadwick XR LSPINE MIN 4 VIEWSon [...] PATITO DE JESUS Date: 2021-10-30 15:27 Normal [facility] [place] Vital Signs Date Time Vital Sign Value Performing Clinician Facility 06-29-2024 11:41-0500 Body mass index (BMI) [Ratio] 35.9 kg/m2 [facility] 06-28-2024 15:19-0500 Body height 152.4 cm [facility] 06-28-2024 15:19-0500 Body weight 83.46 kg [facility] 06-28-2024 15:19-0500 Diastolic blood pressure 84 mm[Hg] [facility] 06-28-2024 15:19-0500 Heart rate 87 /min [facility] 06-28-2024 15:19-0500 SaO2% (BldA) [Mass fraction] 96 % [facility] 06-28-2024 15:19-0500 Systolic blood pressure 170 mm[Hg] [facility] 06-27-2023 13:00-0500 Body height 154.94 cm Nishchrista Acosta Other [facility] Other 06-27-2023 13:00-0500 Body mass index (BMI) [Ratio] 35.9 kg/m2 Abdullahi Dave Other [facility] Other 06-27-2023 13:00-0500 Body weight 86.18 kg Nishchrista Acosta Other [facility] Other 06-27-2023 13:00-0500 Diastolic blood pressure 64 mm[Hg] Abdullahi Acosta Other [facility] Other 06-27-2023 13:00-0500 SaO2% (BldA) [Mass fraction] 97 % Abdullahi Acosta Other [facility] Other 06-27-2023 13:00-0500 Systolic blood pressure 131 mm[Hg] Abdullahi Acosta Other [facility] Other 06-28-2022 14:00-0500 Body height 154.94 cm Abdullahi Acosta Other [facility] Other 06-28-2022 14:00-0500 Body mass index (BMI) [Ratio] 37.22 kg/m2 Abdullahi Cernaban Other [facility] Other 06-28-2022 14:00-0500 Body temperature 96.8 [degF] Abdullahi Acosta Other [facility] Other 06-28-2022 14:00-0500 Body weight 89.36 kg Abdullahi Acosta Other [facility] Other 06-28-2022 14:00-0500 Diastolic blood pressure 73 mm[Hg] Abdullahi Acosta Other [facility] Other 06-28-2022 14:00-0500 SaO2% (BldA) [Mass fraction] 97 % Abdullahi Acosta Other [facility] Other 06-28-2022 14:00-0500 Systolic blood pressure 143 mm[Hg] Abdullahi Acosta Other [facility] Other 07-02-2021 14:00-0500 Body height 154.94 cm Olamidera Ching Other [facility] Other 07-02-2021 14:00-0500 Body mass index (BMI) [Ratio] 35.33 kg/m2 Olamidera Ching Other [facility] Other 07-02-2021 14:00-0500 Body temperature 96 [degF] Olamidera Ching Other [facility] Other 07-02-2021 14:00-0500 Body weight 84.82 kg Olamide Jeane Other [facility] Other 07-02-2021 14:00-0500 Diastolic blood pressure 83 mm[Hg] Olamide Jaene Other [facility] Other 07-02-2021 14:00-0500 SaO2% (BldA) [Mass fraction] 97 % Olamide Jeane Other [facility] Other 07-02-2021 14:00-0500 Systolic blood pressure 176 mm[Hg] Olamide Jeane Other [facility] Other Encounters Encounter Date Encounter Type Care Provider Facility Start: 07-02-2024 End: 07-02-2024 Refscott Bowers MD Work Phone: [facility] Comment on above: Failed back syndrome ; Hypothyroidism, unspecified type ([facility] Start: 06-29-2024 End: 06-29-2024 ambulatory [facility] Work Phone: Start: 06-29-2024 End: 06-29-2024 Patient encounter procedure [facility] Work Phone: Start: 06-04-2024 End: 06-04-2024 Ko Bowers MD Work Phone: [facility] Comment on above: Failed back syndrome Start: 04-09-2024 End: 04-09-2024 ambulatory KOFI BOWERS Not Available Start: 03-18-2024 End: 03-18-2024 Emergency department patient visit KOFI BOWERS [facility] Start: 01-18-2024 End: 01-18-2024 ambulatory ABEL GOODE Not Available Start: 12-01-2023 End: 12-01-2023 ambulatory KEN GALEANA Not Available Start: 11-17-2023 End: 11-17-2023 ambulatory KEN GALEANA Not Available Start: 11-15-2023 End: 11-15-2023 ambulatory KEN GALEAAN Not Available Start: 11-10-2023 End: 11-10-2023 ambulatory KEN GALEANA Not Available Start: 11-08-2023 End: 11-08-2023 ambulatory [...] Start: 06-27-2023 End: 06-27-2023 ambulatory Abdullahi Acosta Facility:[facility] Start: 06-27-2023 [facility] Start: 06-27-2023 End: 06-27-2023 ambulatory II Kofi Bowers Work Phone: [facility] Work Phone: Start: 06-27-2023 End: 06-27-2023 Patient encounter procedure II Kofi Bowers Work Phone: [facility] Work Phone: Start: 01-18-2023 ambulatory NARENDRANAMY BELLAMYMITORRI . Facility:[facility] Start: 01-03-2023 End: [facility]-03-[facility]23 [facility] Start: 10-14-2022 End: 10-15-[address] SERENITY GARCIA . Facility:[facility] Start: 09-28-2022 End: 09-28-2022 [facility] Start: 09-07-2022 End: 09-08-[address] DOCTOR BUENROSTRO Facility:[facility] Start: 08-31-2022 End: 08-31-2022 ambulatory ERIKA [facility] Start: 08-23-2022 End: 08-24-[address] FRANKLYN GARCIA Facility:[facility] Start: 07-14-2022 End: 07-15-2022 ambulatory BETZAIDA ZIMMER . Facility:[facility] Start: 06-28-2022 Office outpatient visit 15 minutes Kamchrista Acosta [facility] Start: 06-28-2022 End: 06-28-2022 ambulatory II Kofi Robinson Work Phone: [facility] Work Phone: Start: 06-28-2022 End: 06-28-2022 Patient encounter procedure II Kofi Bowers Work Phone: [facility] Start: 06-01-2022 End: 06-01-2022 ambulatory [facility] Start: 05-18-2022 End: 05-19-2022 ambulatory NADIYA VERNA Facility:[facility] Start: 05-05-2022 End: 05-06-2022 ambulatory NADIYA GILLESPIE Facility:[facility] Start: 04-28-2022 End: 04-28-2022 ambulatory [facility] Start: 04-08-2022 End: 04-08-[address] SERENITY GARCIA . Facility:[facility] Start: 02-10-2022 End: 02-11-[address] SERENITY GARCIA . Facility:[facility] Start: 01-26-2022 End: 01-26-[address] SERENITY GARCIA . Facility:[facility] Start: 01-06-2022 End: 01-06-[address] JOE MUKHERJEE Facility:[facility] Start: 01-04-2022 End: 01-05-[address] KOFI BOWERS Facility:[facility] Start: 12-06-2021 ambulatory OLIVA Pritchett lity:[facility] Start: 11-30-2021 End: 12-01-[address] KOFI BOWERS Facility:[facility] Start: 11-23-2021 ambulatory BETZAIDA ZIMMER . Facility:[facility] Start: 11-03-2021 End: 11-04-2021 ambulatory OLIVA CARROLL Facility:[facility] Start: 10-30-2021 End: 10-31-[address] KOFI BOWERS Facility:[facility] Start: 07-02-2021 End: 07-02-2021 ambulatory Olamide Jeane Other [facility] Other Start: 07-02-2021 Office outpatient visit 15 minutes Olamide Ching [facility] Plan of Treatment Date Care Activity Detail Author Start: 04-09-2025 Medicare Annual Well ness (AWV) Medicare Annual Wellness (AWV) [facility] Start: 04-09-2025 Urine screening for protein Diabetes: Urine Protein Screening [facility] Start: 08-13-2024 End: 08-13-2024 Patient encounter procedure 08/13/2024 1:15 PM EST Office Visit [facility] [address] [facility] [address] [place] [address] Kofi Bowers MD [address] [place] [address] [place] [address] [facility] Start: 08-09-2024 End: 08-09-2024 Patient encounter procedure 08/09/2024 1:15 PM EST Office Visit [facility] [address] [facility] [address] [place] [address] Kofi Bowers MD [address] [facility] [address] [place] [address] [facility] Start: 07-10-2024 Hemoglobin A1c [...] EDT Office Visit [facility] [address] [facility] [address] [place] [id number] Kofi Bowers MD [address] [facility] [address] [place] [address] [facility] Start: 10-19-2023 Hemoglobin A1c measurement Diabetes: Hemoglobin A1C [facility] Healthcare Start: 04-28-2021 Glaucoma screening Diabetes: R etinopathy Screening [facility] Healthcare Start: 05-15-2014 Pneumococcal Vaccine : 65+ Years (2 of 2 - PCV) Pneumococcal Vaccine: 65+ Years (2 of 2 - PCV) [facility] Immunizations Immunization Date Immunization Notes Care Provider Fa cili 06-06-2023 Influenza, High-dose Seasonal, Quadrivalent, Preservative Free Kofi Bowers MD Work Phone: [facility] 06-06-2023 influenza virus vacc ine, unspecified formulation Kofi Bowers MD Work Phone: [facility] 05-20-2021 Influenza, injectabl e, Madin Yani Canine Kidney, preservative free, quadrivalent Kofi Bowers MD Work Phone: [facility] 09-15-2020 influenza, high dose seasonal, preservative-free Kofi Bowers MD Work Phone: [facility] 05-15-2020 Seasonal, trivalent, recombinant, injectable influenza vaccine, preservative free Kofi Bowers MD Work Phone: [facility] 06-15-2019 influenza, injectabl e, quadrivalent, preservative free Kofi Bowers MD Work Phone: [facility] 05-22-2018 influenza, injectabl e, quadrivalent, preservative free Kofi Bowers MD Work Phone: [facility] 08-02-2015 influenza, injectabl e, quadrivalent, preservative free Kofi Bowers MD Work Phone: [facility] 07-31-2015 tetanus and diphther ia toxoids, adsorbed, preservative free, for adult use (5 Lf of tetanus toxoid and 2 Lf of diphtheria toxoid) Kofi Bowers MD Work Phone: [facility] 05-15-2013 pneumococcal polysaccharide vaccine, 23 valent Kofi Bowers MD Work Phone: [facility] Healthcare Payers Date Payer Category Payer Medicare [employer] E MEDICARE UHC MEDICARE ADVANTAGE [id number] 2023-Present [address] [address] [place] [address] [id number] 2023 Medicare (Managed Care) [facility] MEDIC[facility] [id number] 2022 Medicare [id number] 2017 Medicare [id number] 1959 Medicare [id number] 1959 Medicare [id number] 1959 Private Health Insurance [facility][note 3] [id number] 1959 Self-pay [id number] 1945 Unknown [id number] 2..840.1.038179.3.579.2. 59 1945 Unknown [id number] 2.16.840.1.684472.3.579.2. 593 1945 Unknown [id number] 2..840.1.446154.3.579.2. 593 1945 Unknown [id number] 2.16.840.1.109554.3.579.2. 593 1945 Unknown [id number] 2.16.840.1.400947.3.579.2. 593 1945 Unknown [id number] 2.16.840.1.269700.3.579.2. 593 1945 Unknown [id number] 2.16.840.1.752839.3.579.2. 593 1945 Unknown [id number] 2.16.840.1.931916.3.579.2. 593 1945 Unknown [id number] 2.16.840.1.868499.3.579.2. 593 1945 Unknown [id number] 2..840.1.989916.3.579.2. 593 1945 Unknown [id number] 2.16.840.1.586430.3.579.2. 593 1945 Unknown [id number] 2.16.840.1.257332.3.579.2. 593 1945 Unknown [id number] 2.16.840.1.274261.3.579.2. 593 1945 Unknown [id number] 2.16.840.1.496398.3.579.2. 593 1945 Unknown [id number] 2.16.840.1.190328.3.579.2. 593 1945 Unknown [id number] 2.16.840.1.964778.3.579.2. 593 1945 Unknown [id number] 2.16.840.1.600596.3.579.2. 593 1945 Unknown [id number] 2.16.840.1.869448.3.579.2. 593 1945 Unknown [id number] 2.16.840.1.766282.3.579.2. 1286 1945 Unknown [id number] 2.16.840.1.662544.3.579.2. 1258 1945 Unknown [id number] 2.16.840.1.422006.3.579.2. 1258 1945 Unknown [id number] 2.16.840.1.171449.3.579.2. 1258 1945 Unknown [id number] 2.16.840.1.763976.3.579.2. 1258 1945 Unknown [id number] 2.16.840.1.614295.3.579.2. 1258 1945 Unknown [id number] 2.16.840.1.266147.3.579.2. 1258 1945 Unknown [id number] 2.16.840.1.532090.3.579.2. 1258 1945 Unknown [id number] 2.16.840.1.980126.3.579.2. 1258 1945 Unknown [id number] 2.16.840.1.490265.3.579.2. 1258 1945 Unknown [id number] 2.16.840.1.971424.3.579.2. 1258 1945 Unknown [id number] 2.16.840.1.965589.3.579.2. 1258 1945 Unknown [id number] 2.16.840.1.945205.3.579.2. 1259 Medicare Medicare [id number] Medicare Medicare [id number] Unknown [place] BC/BS [id number] Unknown [id number] 2.16.840.1.633129.3.579.2. 531 Social History Date Type Detail Facility Unknown if ever smoked [facility] [employer] Other Start: 06-15-2018 End: 03-11-2023 Tobacco smoking status NHIS Ex-smoker (finding) [facility] Start: 1945 Sex Assigned At Female F [facility] Start: 07-20-2023 End: 04-09-2024 Sex Assigned At [facility] [employer] Other End: 08-15-1999 History of tobacco use Current smoker [facility] End: 08-15-1999 History of tobacco use Cigarette Smoker [facility] Start: 03-11-2023 Tobacco use and exposure Smokeless tobacco non-user [facility] Start: 07-20-2023 End: 04-09-2024 Alcohol intake Ex-drinker (finding) [facility] Start: 07-20-2023 End: 04-09-2024 History of Social function [facility] Start: 12-17-2022 Alcohol Comment Caffeine: 1-2 cups per day; none soda/pop [facility] Start: 1945 Sex Assigned At Not on file [facility] Start: 06-29-2024 Sex Female (finding) [facility] Clinical Notes 11-03-2021 to 07-02-2024 Telephone Encounter - Chelle Guallpa - 07/02/2024 9:45 AM ESTTelephone Encounter - Chelle Guallpa - 07/02/2024 9:45 AM ESTTelephone Encounter - DINORA Lopez - 06/04/2024 4:27 PM EDT Note Date & Type Note Facility 07-02-2024 Telephone encounter Note Form atting of this note might be different from the original. traMADol (Ultram) 50 MG tablet liothyronine (Cytomel) 25 MCG tablet Ddm in jacob [facility] 07-02-2024 Miscellaneous Notes Formattin g of this note might be different from the original. traMADol (Ultram) 50 MG tablet liothyronine (Cytomel) 25 MCG tablet Ddm in jacob documented in this encounter [facility] 06-04-2024 Telephone encounter Note Form atting of this note might be different from the original. OARRS reviewed, Rx sent into patient's pharmacy. [facility] 06-04-2024 Miscellaneous Notes Formattin g of this note might be different from the original. OARRS reviewed, Rx sent into patient's pharmacy. traMADol (Ultram) 50 MG tablet Ddm in jacob documented in this encounter [facility] 06-04-2024 Telephone encounter Note Form atting of this note might be different from the original. traMADol (Ultram) 50 MG tablet Ddm in jacob [facility] 09-29-2023 Telephone encounter Note Form atting of this note might be different from the original. OARRS reviewed, Rx sent into patient's pharmacy. [facility] 09-29-2023 Miscellaneous Notes Formattin g of this note might be different from the original. OARRS reviewed, Rx sent into patient's pharmacy. documented in this encounter [facility] 06-27-2023 Evaluation note Encounter Date Diagnosis Assessment Notes Jun, Obstructive sleep apnea (ICD-10 - G47.33) Jun, Chronic insomnia (ICD-10 - F51.04) [facility] Other 05-22-2023 NotePatient is here today to discuss medication Review of Systems Musculoskeletal: Positive for arthritis and back pain. All other systems reviewed and are negative.[facility] 01-03-2023 NoteCardiovascular Medicine [facility] SUBJECTIVE Chief Complaint Patient presents with [...] BID. She will be driving down to [place] this weekend for her high school reunion. 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 [facility]03-02-2023 NoteCONSULTATION CONSULTATION DATE: 10/14/2022 HISTORY: This [...] unless otherwise indicated. Patient is in agreement.[id number] NoteCardiology Clinic Note Subjective Cece Mobley is [...] BUN 13, creatinine 0.84, (more content not included)...[facility]02-14-2023 NotePatient here for 1 mo follow up hypertension and medication changes. She was started on hydrochlorothiazide and losartan was increased back up to 100mg daily. She had BMP on 09/07. Review of Systems Musculoskeletal: Positive for back pain. All other systems reviewed and are negative.[facility] 08-31-2022 NotebloUnDiley [facility]01-17-2023 NotePatient here for 3 mo [...] Systems All other systems reviewed and are negative.[facility] 08-31-2022 NoteCardiology Clinic Note Subjective Cece [...] 119, BUN 13, creatinine (more content not included)...[facility] 07-14-2022 NoteCONSULTATION CONSULTATION DATE: 07/14/2022 HISTORY [...] in three months' time unless otherwise indicated.[facility] [id number] Evaluation note* Encounter Date Diagnosis Assessment Notes [...] potential side effects were all discussed today [facility] Other 10-18-2022 NoteContinue to wear cpapUnDiley Ridge Medical Center10-18-2022 NoteContinue amlodipine 10 mg daily- she recently ran out of 10 mg and this morning took 5 mg tablet she had from previous script. Continue coreg 25 mg bid, lasix 40 mg daily, losartan 50 mg daily and hydralazine 50 mg po bid.[facility]10-18-2022 Note Subjective Cece Mobley is a [...] Lab Review: Assessment/Plan There were no encounter diagnoses.[facility]10-18-2022 NoteHPI: Cece Mobley is a 77 [...] 3 months with repeat BMP for renal functionUnDiley Ridge Medical Center09-26-2022 NoteI spoke with patient and informed her of medication changes per Veronica Gillespie CNP. RX sent to [facility] and BMP fax[facility]. Patient verbalized understanding. [facility]09-14-2022 NoteF/U with PCP for further managementUnDiley Ridge Medical Center09-14-2022 NoteHypertension remains uncontrolled, will add [...] BUN 15, CR 0.85 normal K+ 4.8 normalGalion Hospital09-14-2022 NoteAdded in error and don't know how to get rid of itUnDiley Ridge Medical Center08-25-2022 NoteCONSULTATION CONSULTATION DATE: 04/08/2022 HISTORY [...] in the office post procedure in May.[facility] [id number] NoteCONSULTATION CONSULTATION DATE: 02/10/2022 HISTORY OF PRESENT [...] plan of care and all questions answered. [facility] Signed and Approved by: BETZAIDA ZIMMER . 02/11/2022 13:38:00[facility]03-22-2022 NoteCONSULTATION PAIN MANAGEMENT CONSULTATION CHIEF COMPLAINT: Low [...] had three nerves released by Dr. Branch, process artist, in 2002. She states the pain has [...] would like to proceed. CC: Dr. Bowers [facility] Signed and Approved by: DR SERENITY GARCIA . 11/17/2021:24:00[facility] noteNort [facility] Other Evaluation noteNo assessment information available [facility] Work Phone: Evaluation note* Diagnosis Failed back syndrome Other unspecified back disorder [facility]* Diagnosis Failed back syndrome Other unspecified back disorder [facility]* Diagnosis Onset Date Resolution Status Admit Date Chronic insomnia acute June 29, 2024 11:30am MANOLO (obstructive sleep apnea) acute June 29, 2024 11:30am [facility] Work Phone: Evaluation note* Diagnosis Failed back syndrome Other unspecified back disorder Hypothyroidism, unspecified type (CMS/HCC) documented in this encounter [facility] HealthcareHistory general Narrative - ReportedNotexas county memorial hospital [facility] Other History general Narrative - Reported* Type [...] Surgical History tonsillectomy Hospitalization History Heart Attack 2011 Hospitalization History see above [facility] Other Chief Complaint and Reason for Visit Chief Complaint Sleep apnea annual f ollow up Chief Complaint Admit Date MANOLO/ANNUAL June 29, 2024 11:30am Reason for Visit Admit Date Chronic insomnia June 29, 2024 11:30am MANOLO (obstructive sleep apnea) June 152023 11:30am Advance Directives Advance Directive Response Recorded Date/ Time Advance Directives No May 25, 2017 2:32pm Summary Purpose Family History Relationship Condition Age at Onset Recorded Date/T apple brother Diabetes mellitus Unknown Hypertension Unknown father Unknown Diabetes mellitus Unknown Malignant neoplasm Unknown Heart disease Unknown History of stroke Unknown mother Malignant neoplasm of colon Unknown Unknown sister Unknown Additional Source Comments Care Teams (unrecognized sec [...] Active Abdullahi Acosta MD Attending Provider Active Rn Behavioral Health Relationship Specialty Start Date End Date Kofi Bowers MD [address] [place] [address] PCP - General Internal Medicine 12/22/22 Rn Behavioral Health Relationship Specialty Start Date End Date Kofi Bowers MD [address] [place] [address] PCP - General Internal Medicine 12/22/22 Team Status: Inactive Member Role Status Dates Kofi Bowers II MD Primary Care Provider Active Start: June 29, 2024 End: June 29, 2024 Myra Sales APRN [facility] Attending Provider Active Start: June 29, 2024 End: June 29, 2024 Rn Behavioral Health Relationship Specialty Start Date End Date Kofi Bowers MD [address] [place] [address] PCP - General Internal Medicine 12/22/22 Goals (unrecognized section and content) Goals may be documented in a n alternate sectionNo InformationGoals may be documented in an alternate sectionNo InformationGoals may be documented in an alternate section REASON FOR VISIT (unrecogniz ed section and content) Reason Onset Date Comments Med Refill 09/29/2023 TRAMADOL DRUG MA RT JACOB Reason Onset Date Comments Med Refill 06/04/2024 Reason Onset Date Comments Med Refill 07/02/2024 INFORMATION SOURCE (unrecogn ized section and content) DATE CREATED AUTHOR 10/19/2022 [facility] DATE CREATED AUTHOR AUTHOR'S ORGANIZ ATION 01/27/2023 [facility] DATE CREATED AUTHOR AUTHOR'S ORGANIZ ATION 09/23/2023 [facility] DATE CREATED AUTHOR AUTHOR'S ORGANIZ ATION 03/20/2024 [facility] DATE CREATED AUTHOR AUTHOR'S LUAN RADFORD 04/10/2024 [facility] EPIC FOR RECORDS PERTAINING TO PATIENTS WHO ARE [...] BE BASED ON THE PRIMARY CLINICAL RECORDS. [facility] [employer] [facility]. provides no warranty or guarantee of the accuracy or completeness of information in this document.
--- NOTE | 2024-07-18 10:49 | PM.PRESUREVA ---
History of Present Illness History of Present Illness Chief complaint: stimulator trial Narrative: Patient presents for presurgical testing. The patient reports chronic back pain with low back pain radiating to both legs and bothersome jerking of bilateral lower extremities which prevents her from sleeping. She denies any trauma or injury, weakness, loss of bowel or bladder control, or any other complaints. Review of Systems ROS Narrative REVIEW OF SYSTEMS: Negative except as stated in HPI, ten or more systems reviewed. Constitutional: No fever, chills, weakness ENT: No sore throat or epistaxis Cardiovascular: No chest pain or palpitations Respiratory: No shortness of breath, cough, or wheezing Gastrointestinal: No abdominal pain, constipation, diarrhea, or vomiting Genitourinary: No dysuria or hematuria Neurological: No numbness, tingling, weakness, or headache Psychiatric: No mood changes [facility] Medical History (Updated 07/18/24 @ 10:43 by Huma Velarde NP) Facial trauma (~2017) ?S09.93XA - Unspecified injury of face, initial encounter (ICD-10) Chronic insomnia ?F51.04 - Psychophysiologic insomnia (ICD-10) Low iron ?E61.1 - Iron deficiency (ICD-10) Pneumonia ?J18.9 - Pneumonia, unspecified organism (ICD-10) Restless leg ?G25.81 - Restless legs syndrome (ICD-10) GERD (gastroesophageal reflux disease) ?K21.9 - Gastro-esophageal reflux disease without esophagitis (ICD-10) Activity intolerance ?R68.89 - Other general symptoms and signs (ICD-10) Extremity edema ?R60.0 - Localized edema (ICD-10) Diabetes ?E11.9 - Type 2 diabetes mellitus without complications (ICD-10) Hypothyroidism ?E03.9 - Hypothyroidism, unspecified (ICD-10) Low back pain ?M54.50 - Low back pain, unspecified (ICD-10) Osteoarthritis ?M19.90 - Unspecified osteoarthritis, unspecified site (ICD-10) Diabetes 1.5, managed as type 2 ?E13.9 - Other specified diabetes mellitus without complications (ICD-10) Sleep apnea ?G47.30 - Sleep apnea, unspecified (ICD-10) High cholesterol ?E78.00 - Pure hypercholesterolemia, unspecified (ICD-10) Hypertension ?I10 - Essential (primary) hypertension (ICD-10) Surgical History (Updated 07/18/24 @ 10:43 by Huma Velarde NP) History of facial surgery (~2017) ?Z98.890 - Other specified postprocedural states (ICD-10) History of colonoscopy ?Z98.890 - Other specified postprocedural states (ICD-10) History of radiofrequency ablation (RFA) of nerve of lumbar spine ?Z98.890 - Other specified postprocedural states (ICD-10) S/P epidural steroid injection ?Z92.241 - Personal history of systemic steroid therapy (ICD-10) Previous back surgery ?Z98.890 - Other specified postprocedural states (ICD-10) History of cholecystectomy ?Z90.49 - Acquired absence of other specified parts of digestive tract (ICD-10) Hx of tonsillectomy ?Z90.89 - Acquired absence of other organs (ICD-10) History of appendectomy ?Z90.49 - Acquired absence of other specified parts of digestive tract (ICD-10) Family History (Updated 07/18/24 @ 10:25 by Huma Velarde NP) Other Cancer Family history of coronary artery disease Family history of diabetes mellitus Family history of heart disease Family history of hypertension Social History (Updated 07/18/24 @ 10:22 by Huma Velarde NP) Within the past year, how often did you have a drink containing alcohol: never Score interpretation: A score less than 3 is consistent with normal alcohol consumption. Smoking status: Never smoker Non-prescribed substance use: denies use Highest level of school completed/degree received: Associate degree: occupational, technical, vocational program Meds Home Medications and Allergies Home Medications ?Medication ?Instructions ?Recorded ?Confirmed ?Type acarbose 100 mg tablet 100 mg PO BID 10/19/23 07/18/24 History amlodipine 10 mg tablet 10 mg PO DAILY 10/19/23 07/18/24 History aspirin 81 mg capsule 81 mg PO DAILY 10/19/23 07/18/24 History carvedilol 25 mg tablet 25 mg PO BID 10/19/23 07/18/24 History dulaglutide 4.5 mg/0.5 mL 4.5 mg subcut .weekly 10/19/23 07/18/24 History subcutaneous pen injector (Trulicity) furosemide 40 mg tablet 40 mg PO DAILY 10/19/23 07/18/24 History insulin detemir U-100 100 unit/mL 60 unit subcut DAILY 10/19/23 07/18/24 History (3 mL) subcutaneous pen (Levemir FlexPen) liothyronine 25 mcg tablet 12.5 mcg PO BID 10/19/23 07/18/24 History loratadine 10 mg tablet 10 mg PO DAILY PRN allergic 10/19/23 07/18/24 History symptoms losartan 100 1 tab PO DAILY 10/19/23 07/18/24 History mg-hydrochlorothiazide 25 mg tablet lovastatin 20 mg tablet 20 mg PO DAILY 10/19/23 07/18/24 History metformin 1,000 mg tablet 1,000 mg PO BID 10/19/23 07/18/24 History omeprazole 20 mg capsule,delayed 20 mg PO DAILY 10/19/23 07/18/24 History release potassium chloride 20 mEq 20 meq PO DAILY 10/19/23 07/18/24 History tablet,extended release pramipexole 0.5 mg tablet 0.5 mg PO DAILY 10/19/23 07/18/24 History quetiapine 50 mg tablet 50 mg PO DAILY 10/19/23 07/18/24 History tramadol 50 mg tablet 100 mg PO Q12H PRN pain 10/19/23 07/18/24 History acetaminophen 500 mg capsule 1,000 mg PO BID 07/18/24 07/18/24 History ascorbic acid (vitamin C) 500 mg 500 mg PO BID 07/18/24 07/18/24 History capsule calcium 600 mg (as 1 tab PO DAILY 07/18/24 07/18/24 History carbonate)-vitamin D3 5 mcg (200 unit) tablet (Calcium 600 + D(3)) cholecalciferol (vitamin D3) 125 5,000 unit PO DAILY 07/18/24 07/18/24 History mcg (5,000 unit) capsule vitamin B complex (B-Complex 1 tab PO DAILY 07/18/24 07/18/24 History tablet) vitamin E 268 mg (400 unit) capsule 268 mg PO BID 07/18/24 07/18/24 History Allergies Allergy/AdvReac Type Severity Reaction Status Date / Time iodine Allergy Severe Anaphylaxis Verified 07/18/24 10:18 levofloxacin (From Levaquin) Allergy Rash Verified 07/18/24 10:15 Exam Narrative Exam Narrative: Constitutional: Awake, alert, comfortable, well-appearing, nontoxic, interactive, vital signs as charted Head: Normocephalic, atraumatic Neck: Supple, normal appearance, normal range of motion, no meningeal signs, no lymphadenopathy Respiratory: No respiratory distress, breath sounds clear Cardiovascular: Regular rate and rhythm, strong and regular heart tones Musculoskeletal: Limited range of motion of thoracic and lumbar spine with diffuse paraspinal muscle tenderness throughout, bilateral pedal edema 2+ right, 3+ left Skin: No rashes or induration, no lesions, only visible skin inspected Neuro: No gross neurological deficits, decreased sensation bilateral feet Psychiatric: Oriented ?3, normal affect Assessment and Plan Assessment and Plan (1) Failed back syndrome: Plan Lumbar spinal stimulator trial scheduled with Dr. Calvert July 23, 2024.
[2024-07-18 10:57] LABS: Anion Gap 11.6; BUN Creatinine Ratio 15.2; Carbon Dioxide 30.2 mmol/L (21.0-32.0); Chloride 106 mmol/L (98-107); Estimated GFR (African America >60 (>=60 mL/min/1.73m^2); Estimated GFR (Non-African Ame 54 (>=60 mL/min/1.73m^2); Glucose 132 mg/dL (74-106); Potassium 3.8 mmol/L (3.5-5.1); Sodium 144 mmol/L (136-145)
== END 2024-07-18 09:56 | disposition home or self-care (01) ==
PROVIDERS: PCP Internal Medicine; Visit Provider Anesthesiology
DX: Z01.810 Encounter for preprocedural cardiovascular examination (principal); Z01.812 Encounter for preprocedural laboratory examination; Z01.818 Encounter for other preprocedural examination; M96.1 Postlaminectomy syndrome, not elsewhere classified
CPT/HCPCS: 80048; 93005; G0463

== ENCOUNTER 2024-07-23 10:16 | Day surgery (SDC) | payer MEDICARE, SELFPAY ==
[2024-07-18 10:39] VITALS: BP 153/79; PULSE 83; TEMP 36.3; O2SAT 97; BMI 35.9
[2024-07-23 11:24] VITALS: BP 167/81; PULSE 98; TEMP 36; O2SAT 94
[2024-07-23 11:31] LABS: Glucometer 118 mg/dL (74-106)
[2024-07-23] MEDS: 0.9 % SODIUM CHLORIDE 500 ML IV (11:45)
[2024-07-23] MEDS: CEFAZOLIN SODIUM/DEXTROSE,ISO 1 GM/50 ML PREMIX IV (11:52)
[2024-07-23] MEDS: LIDOCAINE HCL 2%-EPINEPHRINE 1:200,000 20 ML MDV 7 ML INJ (12:28)
--- NOTE | 2024-07-23 12:34 | W.PM.PROCNOT ---
Date of procedure: 07/23/24 Pre-op diagnosis: M96.1 Post-op diagnosis: same as pre-op Procedure: Procedure: Spinal cord stimulator trial Procedure Performed by: Esperanza Maya M.D. Procedure: Placement of [employer] 16 contact neuroelectrode trial leads (x two) under fluoroscopic guidance *Needle Company Truck Driver at the interspace below T11/12 *Final Lead Placement Level at the top of the vertebral body T7 Anesthesia: Monitored Anesthesia Care is medically necessary for the procedure due to the procedure requiring the patient to remain motionless for a prolonged period of time. Procedure: Risks, Benefits, Alternatives were reviewed and informed consent was obtained in the preop holding area. All questions were answered appropriately. The patient was brought to the operating room and placed in the prone position with padding under all bony prominences. A pre-procedure time out was performed specifying pt. name, nature site and side of surgery, and allergies. Anesthesia provided appropriate sedation as the skin over the thoracic and lumbar spine were prepped with duraprep and draped in the usual sterile fashion. Under fluoroscopic guidance, the above noted interspace was identified as the site for epidural needle entry. The skin and subcutaneous tissues were anesthetized approximately 1 level inferior to this point with a mixture of 1% lidocaine and 0.25% bupivacaine. Two 14 gauge tuouy needles were inserted to the superior aspect of the lamina just inferior to the target interspace. Then, using loss of resistance technique as well as fluoroscopic guidance, the epidural space was entered. Two [employer] Trial Stimulator Leads were then advanced under intermittent fluoroscopic guidance until the distal tip of the electrode was observed to be in position at the final position noted above. After appropriate electrode placement was achieved, stimulation was tested intraoperatively with multiple lead configurations until concordant paresthesias were obtained covering the areas of the patients pain. At this point, the needles and stylets were removed carefully and the leads were secured to the skin using steri-strips. The region was covered using a sterile tegaderm bandage. The patient was escorted to the recovery area in stable condition having tolerated the procedure well. Anesthesia: MAC Surgeon: Esperanza Maya Pathology: none sent Condition: stable Disposition: no change
[2024-07-23 12:37] VITALS: BP 142/50; PULSE 96; TEMP 36.7; O2SAT 97
[2024-07-23 12:42] VITALS: BP 136/71; PULSE 95; O2SAT 96
== END 2024-07-23 13:18 | disposition home or self-care (01) ==
LOC: SURGOUT 10:17
PROVIDERS: PCP Internal Medicine; Visit Provider Anesthesiology
DX: M96.1 Postlaminectomy syndrome, not elsewhere classified (principal); I10 Essential (primary) hypertension; E11.9 Type 2 diabetes mellitus without complications; Z79.85 Long-term (current) use of injectable non-insulin antidiabetic drugs; Z79.84 Long term (current) use of oral hypoglycemic drugs; Z79.4 Long term (current) use of insulin; Z90.49 Acquired absence of other specified parts of digestive tract; G47.33 Obstructive sleep apnea (adult) (pediatric); E78.5 Hyperlipidemia, unspecified; G25.81 Restless legs syndrome; G89.29 Other chronic pain; E03.9 Hypothyroidism, unspecified
CPT/HCPCS: 36415; 63650; 82948; C1897; J0690; J2250; J2704; J3010

== ENCOUNTER 2024-07-30 13:04 | Outpatient (OUT) | payer MEDICARE, SELFPAY ==
--- NOTE | 2024-07-30 13:47 | P.CN_ITS ---
Consult Note: HPI Data of Consult Patient: known to practice within the last 3 years Consult date: 07/30/24 Requesting Physician: Esperanza Maya MD Primary Care Provider: BELEN ZALDIVAR Consult Narrative Reason for consult: low back pain Narrative: 79yof who presents for spinal cord stim trial lead pull. notes >50% relief with her trial, very happy with results. would like to move forward with implant. cc:: CC: Esperanza Maya MD Review of Systems ROS Status of ROS 10 or more systems reviewed and unremark able except as noted in history and below [facility] Medical History (Updated 07/18/24 @ 10:43 by Huma Velarde NP) Facial trauma (~2016) ?S09.93XA - Unspecified injury of face, initial encounter (ICD-10) Chronic insomnia ?F51.04 - Psychophysiologic insomnia (ICD-10) Low iron ?E61.1 - Iron deficiency (ICD-10) Pneumonia ?J18.9 - Pneumonia, unspecified organism (ICD-10) Restless leg ?G25.81 - Restless legs syndrome (ICD-10) GERD (gastroesophageal reflux disease) ?K21.9 - Gastro-esophageal reflux disease without esophagitis (ICD-10) Activity intolerance ?R68.89 - Other general symptoms and signs (ICD-10) Extremity edema ?R60.0 - Localized edema (ICD-10) Diabetes ?E11.9 - Type 2 diabetes mellitus without complications (ICD-10) Hypothyroidism ?E03.9 - Hypothyroidism, unspecified (ICD-10) Low back pain ?M54.50 - Low back pain, unspecified (ICD-10) Osteoarthritis ?M19.90 - Unspecified osteoarthritis, unspecified site (ICD-10) Diabetes 1.5, managed as type 2 ?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 - Other specified diabetes mellitus without complications (ICD-10) Sleep apnea ?G47.30 - Sleep apnea, unspecified (ICD-10) High cholesterol ?E78.00 - Pure hypercholesterolemia, unspecified (ICD-10) Hypertension ?I10 - Essential (primary) hypertension (ICD-10) Surgical History History of facial surgery (~2016) ?Z98.890 - Other specified postprocedural states (ICD-10) History of colonoscopy ?Z98.890 - Other specified postprocedural states (ICD-10) History of radiofrequency ablation (RFA) of nerve of lumbar spine ?Z98.890 - Other specified postprocedural states (ICD-10) S/P epidural steroid injection ?Z92.241 - Personal history of systemic steroid therapy (ICD-10) Previous back surgery ?Z98.890 - Other specified postprocedural states (ICD-10) History of cholecystectomy ?Z90.49 - Acquired absence of other specified parts of digestive tract (ICD-10) Hx of tonsillectomy ?Z90.89 - Acquired absence of other organs (ICD-10) History of appendectomy ?Z90.49 - Acquired absence of other specified parts of digestive tract (ICD- 10) Family History Other Cancer Family history of coronary artery disease Family history of diabetes mellitus Family history of heart disease Family history of hypertension Social History Within the past year, how often did you have a drink containing alcohol: never Score interpretation: A score less than 3 is consistent with normal alcohol consumption. Smoking status: Never smoker Non-prescribed substance use: denies use Highest level of school completed/degree received: Associate degree: occupational, technical, vocational program Meds Home Medications and Allergies Home Medications ?Medication ?Instructions ?Recorded ?Confirmed ?Type acarbose 100 mg tablet 100 mg PO BID 10/19/23 07/23/24 History amlodipine 10 mg tablet 10 mg PO DAILY 10/19/23 07/23/24 History aspirin 81 mg capsule 81 mg PO DAILY 10/19/23 07/23/24 History carvedilol 25 mg tablet 25 mg PO BID 10/19/23 07/23/24 History dulaglutide 4.5 mg/0.5 mL 4.5 mg subcut .weekly 10/19/23 07/23/24 History subcutaneous pen injector (Trulicity) furosemide 40 mg tablet 40 mg PO DAILY 10/19/23 07/23/24 History insulin detemir U-100 100 unit/mL 60 unit subcut DAILY 10/19/23 07/23/24 History (3 mL) subcutaneous pen (Levemir FlexPen) liothyronine 25 mcg tablet 12.5 mcg PO BID 10/19/23 07/23/24 History loratadine 10 mg tablet 10 mg PO DAILY PRN allergic 10/19/23 07/23/24 History symptoms losartan 100 1 tab PO DAILY 10/19/23 07/23/24 History mg-hydrochlorothiazide 25 mg tablet lovastatin 20 mg tablet 20 mg PO DAILY 10/19/23 07/23/24 History metformin 1,000 mg tablet 1,000 mg PO BID 10/19/23 07/23/24 History omeprazole 20 mg capsule,delayed 20 mg PO DAILY 10/19/23 07/23/24 History release potassium chloride 20 mEq 20 meq PO DAILY 10/19/23 07/23/24 History tablet,extended release pramipexole 0.5 mg tablet 0.5 mg PO DAILY 10/19/23 07/23/24 History quetiapine 50 mg tablet 50 mg PO DAILY 10/19/23 07/23/24 History tramadol 50 mg tablet 100 mg PO Q12H PRN pain 10/19/23 07/23/24 History acetaminophen 500 mg capsule 1,000 mg PO BID 07/18/24 07/23/24 History ascorbic acid (vitamin C) 500 mg 500 mg PO BID 07/18/24 07/18/24 History capsule calcium 600 mg (as 1 tab PO DAILY 07/18/24 07/23/24 History carbonate)-vitamin D3 5 mcg (200 unit) tablet (Calcium 600 + D(3)) cholecalciferol (vitamin D3) 125 5,000 unit PO DAILY 07/18/24 07/23/24 History mcg (5,000 unit) capsule vitamin B complex (B-Complex 1 tab PO DAILY 07/18/24 07/23/24 History tablet) vitamin E 268 mg (400 unit) capsule 268 mg PO BID 07/18/24 07/23/24 History cephalexin 500 mg capsule 500 mg PO TID 7 days #21 caps 07/23/24 Rx Allergies Allergy/AdvReac Type Severity Reaction Status Date / Time iodine Allergy Severe Anaphylaxis Verified 07/23/24 11:34 levofloxacin (From Levaquin) Allergy Rash Verified 07/23/24 11:34 Exam Narrative Exam Narrative: Psych-alert and oriented x 3. Attentive and appropriate, constitutionally normal, displays normal mood and affect per situation.? There are no obvious deficits in memory, reasoning, or intellect.? Skin-no obvious rashes, bruising, erythema noted to the patient's area of pain. Extremities- extremities are warm with minimal edema and palpable pulses. Lumbar-no significant tenderness to palpation noted in the lumbar spine and paraspinal musculature.? Pain is elicited with extension, and lateral rotation of the lumbar spine. Range of motion is slightly diminished with these motions due to pain. Coordination remains intact.? Gait remains non-antalgic. Assessment and Plan Assessment and Plan (1) History of lumbar fusion: (2) Failed back syndrome: (3) Painful diabetic neuropathy: Plan 79yof who presents for spinal cord stim trial lead pull. would like to move forward with implant. >50% relief throughout trial. leads were removed with tips intact. no appreciable warmth, redness, weeping, or other signs of infection around insertion site.
== END 2024-07-30 13:05 | disposition home or self-care (01) ==
LOC: PM 13:05
PROVIDERS: PCP Internal Medicine; Visit Provider Anesthesiology
DX: M43.26 Fusion of spine, lumbar region (principal); M96.1 Postlaminectomy syndrome, not elsewhere classified; E11.40 Type 2 diabetes mellitus with diabetic neuropathy, unspecified
CPT/HCPCS: G0463

== ENCOUNTER 2024-08-13 06:36 | Day surgery (SDC) | payer MEDICARE, SELFPAY ==
--- OUTSIDE RECORDS SUMMARY | 2024-08-13 06:39 | XMS_ITS | CCD ---
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 Name Role Phone Olamide Ching Unavailable MD Abdullahi Acosta Attending Provider MONI Bowers Primary Care Provider [phone] Abdullahi Acosta Unavailable VERNA, ANGELA Consulting Unavailable VERNA, ANGELA Attending Unavailable BOWERS, DR GLOVER Primary Care Unavailable VERNA, ANGELA Admitting Unavailable BOWERS, DR GLOVER Primary Care Unavailable GARCIA ., DR SERENITY Barahona Consulting Unavailable GARCIA ., DR SERENITY Barahona Attending Unavailable GARCIA ., DR SERENITY Barahona Admitting Unavailable MISC, DR MURDOCK Admitting Unavailable MISC, DR MURDOCK Consulting Unavailable BOWERS, DR GLOVER Primary Care Unavailable MISC, DR MURDOCK Attending Unavailable VERNA, ANGELA Attending Unavailable VERNAANGELA Consulting Unavailable BOWERS, DR GLOVER Primary Care Unavailable VERNA, NAGELA Admitting Unavailable BOWERS, DR GLOVER Primary Care [...] Consulting Unavailable JOSE, DR ESTES Admitting Unavailable ANGELA GILLESPIE Consulting Unavailable BOWERS, DR GLOVER Primary [...] Consulting Unavailable URI CARLSON Attending Unavailable VERNA, ANGELA Attending Unavailable VERNA, ANGELA Attending Unavailable OSCAR DEL TORO Attending Unavailable OSCAR DEL TORO Attending Unavailable MONI Bowers Primary Care Provider MD Abdullahi Acosta Attending Provider Abdullahi Acosta Attending Unavailable Abdullahi Acosta Admtony Unavailable Kofi Bowers Primary Care Unavailable Kofi Bowers MD Primary Care Provider [phone] KOFI BOWERS Primary Care Unavailable SHUBHAM GANN Attending Unavailable KOFI BOWERS Attending Unavailable GHAZAL GRIFFIN Attending Unavailable KOFI BOWERS Referring Unavailable KEN GALEANA Attending Unavailable KOFI BOWERS Referring Unavailable FERMINTEENAH Attending Unavailable KOFI BOWERS Referring Unavailable TATTERSGURU, KEN Attending Unavailable KOFI BOWERS Referring Unavailable TATTERSGURU, KEN Attending Unavailable KOFI BOWERS Referring Unavailable TATTERSGURU, KEN Attending Unavailable KOFI BOWERS B Referring Unavailable CAMILLETERSGURU, KEN Attending Unavailable KOFI BOWERS B Referring Unavailable KERVIN, KEN Attending Unavailable KOFI BOWERS B Referring Unavailable ABEL GOODE Attending Unavailable ABEL GOODE Attending Unavailable KOFI BOWERS B Attending Unavailable Francesco BUENO, Esperanza Shafer Attending Unavailable Francesco BUENO, Esperanza Shafer Attending Unavailable Allergies Allergy Classification Reported Allergen(s) Allergy Type Date of Onset Reaction(s) Facility (3 sources) Gemfibrozil Drug Allergy muscle atrophy [employer] Other (16 sources) Iodine; Translations: [IODINE] Drug Allergy 11-24-19 19 anaphylaxis, Shortness of breath [facility] Repository (5 sources) levoFLOXacin; Translations: [Levaquin] Drug Allergy 11-17-19 16 tendonopathy [facility] Repository (16 sources) levoFLOXacin; Translations: [LEVOFLOXACIN] Drug Allergy 06-15-20 18 Other [facility] (1 source) Iodine and Iodide Containing Produc Allergy to substance 06-13-20 18 Unknown Reaction [facility] (2 sources) hydrALAZINE Drug Allergy 11-18-19 16 [facility] Repository (1 source) Iodine Drug Allergy 07-31-20 15 [facility] Repository (11 sources) pregabalin; Translations: [PREGABALIN] Drug Allergy 02-25-20 21 Dizziness [facility] Repository (1 source) SHELLFISH CONTAINING PRODUCTS; Translations: [SHELLFISH CONTAINING PRODUCTS] Propensity to adverse reactions to drug (disorder) 01-25-20 14 [facility] Repository (3 sources) Iodinated Contrast Media; Translations: [Iodinated Contrast Media] Allergy to substance 08-19-19 23 Unknown Reaction [facility] (2 sources) Gemfibrozil Drug Allergy 06-27-20 23 muscle atrophy [facility] Repository (1 source) Iodine Drug Allergy 06-27-20 23 [facility] Repository (10 sources) Shellfish Allergy to substance 01-25-20 14 Swelling [facility] Work Phone: Medications Current Medications Medication Drug Class(es) Dates Sig (Normalized) Sig (Original) acarbose 100 mg oral tablet (16 sources) alpha-Glucosidas e Inhibitor Start: 01-18-2024 take [...] 11:00pm acetaminophen 500 mg oral ta blet (13 sources) acetaminophen (T ylenol) 500 MG tablet [...] Jun, Active amLODIPine 10 mg oral tablet (16 sources) Dihydropyridine Calcium Channel Theodora Start: 07-23-2024 take 1 tablet by mouth in the morning amLODIPine (Norvasc) 10 MG tablet Indications: Benign essential hypertension (CMS/HCC) TAKE 1 TABLET BY MOUTH IN THE MORNING 100 tablet 3 07/23/2024 Active Start: 06-13-2018 take 1 tablet by javi th in the morning amLODIPine (Norvasc) 10 MG tablet Indications: Benign essential hypertension (CMS/HCC) Take 1 tablet (10 mg) by mouth in the morning. 100 tablet 3 07/20/2023 Active ascorbic acid 100 mg/ml oral solution (10 sources) Vitamin C Ascorbic Acid (Vitamin C) 500 MG/5ML liquid 1 capsule 1 (one) time each day at the same time. Active aspirin 81 mg delayed release oral tablet (13 sources) Platelet Aggregation Inhibitor, Nonsteroidal Anti-inflammatory Drug [...] mg / cholecalciferol 100 unt oral tablet (10 sources) Vitamin D take 1 tablet by mouth once in the morning, then take 1 tablet by mouth once in the evening Calcium Citrate-Vitamin D (Mark-Citrate Plus Vitamin D) 250-2.5 MG-MCG tablet Take 1 tablet by mouth in the morning and 1 tablet in the evening. Active Calcium Citrate Plus (3 sources) Calcium Citrate Plus as directed Orally bid Active carvedilol 25 mg oral tablet (5 sources) alpha-Adrenergic Theodora, beta-Adrenergic Theodora Start: 02-20-2024 End: 04-09-2024 take 1 tablet by mouth at mealtime carvedilol (Coreg) 25 MG tablet Indications: Benign essential hypertension (CMS/HCC) TAKE 1 TABLET BY MOUTH IN THE MORNING AND IN THE EVENING WITH MEALS 60 tablet 10 02/20/2024 04/09/2024 Discontinued (Other) Start: 02-22-2023 take 1 tablet by javi th in the morning carvedilol (Coreg) 25 MG tablet Indications: Benign essential hypertension (CMS/HCC) Take 1 tablet (25 mg) by mouth in the morning and 1 tablet (25 mg) in the evening. Take with meals. 180 tablet 3 02/22/2023 Active cetirizine hydrochloride 10 mg oral tablet (10 sources) Histamine-1 Receptor Antagonist cetirizine (ZyrTEC) 10 MG tablet 1 (one) time each day at the same time. Active cholecalciferol 1.25 mg oral tablet (10 sources) Vitamin D cholecalciferol (Vitamin D-3) 1.25 MG (24474 UT) tablet Vitamin D3 5000IU Active cholecalciferol (Vitamin D-3) 1.25 MG (46650 UT) tablet Vitamin D3 5000IU 0 Active [...] 2018 11:00pm furosemide 40 mg oral tablet (16 sources) Loop Diuretic Start: 06-13-2018 take 1 tablet by mouth in the morning furosemide (Lasix) 40 MG tablet Indications: Benign essential hypertension (CMS/HCC) TAKE 1 TABLET (40 MG) BY MOUTH IN THE MORNING. 30 tablet 10 01/18/2024 Active hydrALAZINE hydrochloride 50 mg oral tablet (5 sources) Arteriolar Vasodilator End: 04-09-2024 hydrALAZINE (Apresoline) 50 MG tablet every 12 (twelve) hours. 04/09/2024 Discontinued (Other) hydroCHLOROthiazide 25 mg / losartan potassium 100 mg oral tablet (10 sources) Thiazide Diuretic, Angiotensin 2 Receptor Theodora [...] ml insulin detemir 100 unt/ml pen injector (13 sources) Insulin Analog Start: 06-13-2018 Insulin Detemi r U-100 100 unit/mL (3 mL) insulin pen Active 0 .ROUTE .COMPLEX June 12, 2018 11:00pm as directed insulin detemir (Levemir FlexTouch) 100 UNIT/ML pen INJECT 60 UNITS SUBCUTANEOUSLY EACH MORNING for 25 Active liothyronine sodium 0.025 mg oral tablet (17 sources) l-Triiodothyronine Start: 04-26-2023 End: 07-02-2024 take 0.5 tablet by mouth twice daily liothyronine (Cytomel) 25 MCG tablet Indications: Hypothyroidism, unspecified type (CMS/HCC) 0.5 tablet on an empty stomach Orally two times daily. D.A.W. as Sigma or Transparentrees Brand ONLY for 90 days 200 tablet 3 07/02/2024 Active Start: 06-13-2018 take 1 tablet by javi th once daily Liothyronine 25 mcg tablet Active 0.5 TAB PO Daily June 12, 2018 11:00pm Liothyronine Sod ium 25 MCG as directed Orally bid Active loratadine 10 mg oral tablet (16 sources) Start: 03-20-2024 take 1 tablet by [...] 2018 11:00pm lovastatin 20 mg oral tablet (16 sources) HMG-CoA Reductase Inhibitor Start: 06-13-2018 take 1 tablet by mouth once daily lovastatin (Mevacor) 20 MG tablet Indications: Congenital renal artery anomaly TAKE 1 TABLET BY MOUTH ONCE DAILY 30 tablet 10 09/21/2023 Active melatonin 5 mg oral capsule (6 sources) Start: 06-13-2018 Melatonin 5 mg Capsule Active June 12, 2018 11:00pm Start: 06-13-2018 Melatonin Acti ve June 12, 2018 11:00pm Melatonin 5 MG O rally qhs Active metFORMIN hydrochloride 1000 mg oral tablet (16 sources) Biguanide Start: 06-13-2018 take 1 tablet [...] 12, 2018 11:00pm take 2 tablets by [facility] every twenty-four hours Toprol XL 50 MG 2 tablet Orally Once a day Active Metoprolol Succi florencio Active Multivitamin preparation (3 sources) Multivitamin Act yair naproxen 500 mg oral tablet (7 sources) Nonsteroidal Anti-inflammatory Drug Start: 04-09-2024 End: 04-23-2024 take 1 tablet by mouth in the morning naproxen (Naprosyn) 500 MG tablet Indications: Iliopsoas bursitis of right hip Take 1 tablet (500 mg) by mouth in the morning and 1 tablet (500 mg) in the evening. Take with meals. Do all this for 14 days. 28 tablet 04/09/2024 04/23/2024 Active End: 04-09-2024 naproxen (Naprosyn) 500 MG t ablet every 12 (twelve) hours. 04/09/2024 Discontinued (Other) omeprazole 20 mg delayed release oral capsule (16 sources) Proton Pump Inhibitor Start: 06-13-2018 take 1 capsule by mouth in the morning omeprazole (PriLOSEC) [address] capsule Indications: Gastroesophageal reflux disease without esophagitis TAKE 1 CAPSULE (20 MG) BY MOUTH IN THE MORNING. 30 capsule 10 01/18/2024 Active 12 hr orphenadrine citrate 100 mg extended release oral tablet (9 sources) Muscle Relaxant Start: 10-27-2023 take 1 tablet [...] chloride 20 meq extended release oral tablet (16 sources) Start: 06-13-2018 Potassium Chloride 20 mEq tablet,ER particles/crystals Active [...] 2018 11:00pm QUEtiapine 50 mg oral tablet (19 sources) Atypical Antipsychotic Start: 06-13-2018 take 1 tablet by mouth once daily QUEtiapine (SEROquel) 50 MG tablet Indications: Insomnia, unspecified type TAKE 1 TABLET BY MOUTH ONCE DAILY 30 tablet 10 10/20/2023 Active rOPINIRole 2 mg oral tablet (9 sources) Nonergot Dopamine Agonist Start: 01-18-2024 take 0.5 tablet by mouth at bedtime rOPINIRole (Requip) 2 MG tablet Indications: Restless Leg Syndrome Take 0.5 tablets (1 mg) by mouth at bedtime 30 tablet 2 01/18/2024 Active traMADol hydrochloride 50 mg oral tablet (20 sources) Opioid Agonist Start: 03-05-2024 End: 09-01-2024 take 1 tablet by mouth every six hours for pain traMADol (Ultram) 50 MG tablet Indications: Failed back syndrome Take 1 tablet (50 mg) by mouth every 6 (six) hours if needed for severe pain 120 tablet 08/02/2024 09/01/2024 Active Start: 09-29-2023 take 1 tablet by [...] Active Trulicity 4.5 MG/0.5ML solut ion pen-injector (10 sources) Start: 08-23-2023 Trulicity 4.5 MG/0.5ML solution pen-injector Indications: 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 Active Vitamin E 400 UNIT (3 sources) take 1 capsule by mo [facility] once daily Vitamin E 400 UNIT 1 capsule Orally Once a day Active zolpidem tartrate 6.25 mg extended release oral tablet (10 sources) gamma-Aminobutyric Acid-ergic Agonist Start: 11-18-2023 zolpidem [...] te Episodic/Chronic Cardiac and circulatory congenital anomalies (10 sources) Congenital anomaly of renal blood vessel; 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] Onset: 11-25-2015 12-14-2022 Chronic Diabetes mellitus with complications (20 sources) Disorder of nervous system due to type 2 diabetes mellitus; Translations: [Type 2 diabetes mellitus with other diabetic neurological complication] Onset: 08-15-2014 12-14-2022 Chronic Diabetes mellitus without complication (13 sources) Type 2 diabetes mellitus without complications; Translations: [Diabetes mellitus] Onset: 01-24-2014 03-11-2023 Chronic Disorders of lipid metabolism (11 sources) Hyperlipidemia, unspecified; Translations: [Mixed hyperlipidemia] Onset: 01-07-2022 12-14-2022 Chronic Esophageal disorders (11 sources) Gastro-esophageal reflux disease without esophagitis; Translations: [Gastroesophageal reflux disease] Onset: 01-07-2022 12-14-2022 Chronic Essential hypertension (19 sources) Essential (primary) hypertension; Translations: [Benign essential hypertension] Onset: 01-07-2022 Chronic Malaise and fatigue (10 sources) Fatigue; Translations: [Chronic fatigue, unspecified] Onset: 12-14-2022 12-14-2022 Chronic Menopausal disorders (14 sources) Other primary ovarian failure; Translations: [Decreased estrogen level] Onset: 01-04-2022 Chronic Miscellaneous mental health disorders (6 sources) Chronic insomnia; Translations: [Psychophysiologic insomnia] Chronic Other diseases of veins and lymphatics (10 sources) Venous hypertension of lower limb; Translations: [Chronic venous hypertension (idiopathic) without complications of unspecified lower extremity] Onset: 12-21-2022 12-21-2022 Chronic Other eye disorders (10 sources) Bilateral vitreous floaters; Translations: [Other vitreous opacities, bilateral] Onset: 12-14-2022 12-14-2022 Chronic Other hereditary and degenerative nervous system conditions (1 source) Restless legs syndrome; Translations: [RESTLESS LEGS SYNDROME] Onset: 11-06-2021 Chronic Other hereditary and degenerative nervous system conditions (9 sources) Restless legs; Translations: [Restless legs syndrome] Onset: 01-18-2024 01-18-2024 Chronic Other lower respiratory disease (3 sources) Disorder of lung; Translations: [Other disorders of lung] Episodic Other nervous system disorders (1 source) Polyneuropathy, unspecified; Translations: [POLYNEUROPATHY UNSPECIFIED] Onset: 04-14-2022 Chronic Other nervous system disorders (10 sources) Chronic pain syndrome; Translations: [Chronic pain syndrome] Onset: 12-14-2022 12-14-2022 Chronic Other nervous system disorders (10 sources) Difficulty walking; Translations: [Difficulty in walking, not elsewhere classified] Onset: 12-14-2022 12-14-2022 Chronic Other nervous system disorders (10 sources) Polyneuropathy; Translations: [Polyneuropathy, unspecified] Onset: 01-24-2014 03-11-2023 Chronic Other nutritional; endocrine; and metabolic disorders (6 sources) Obese class II; Translations: [Body mass index (BMI) 35.0-35.9, adult] Chronic Other nutritional; endocrine; and metabolic disorders (1 source) Body mass index (BMI) 35.0-35.9, adult Onset: 07-02-2021 Resolved: 07-02-2021 Chronic Other nutritional; endocrine; and metabolic disorders (12 sources) Body mass index 30+ - obesity; Translations: [Obesity, unspecified] Onset: 04-21-2020 03-11-2023 Chronic Other nutritional; endocrine; and metabolic disorders (10 sources) Lipoprotein deficiency disorder; Translations: [Lipoprotein deficiency] Onset: 05-01-2018 03-11-2023 Chronic Other nutritional; endocrine; and metabolic disorders (2 sources) Obesity caused by energy imbalance; Translations: [Morbid (severe) obesity due to excess calories] 04-09-2024 Chronic Other upper respiratory disease (10 sources) Allergic rhinitis; Translations: [Other allergic rhinitis] Onset: 12-14-2022 12-14-2022 Chronic Peripheral and visceral atherosclerosis (12 sources) Peripheral vascular disease; Translations: [Peripheral vascular disease, unspecified] Onset: 12-14-2022 12-14-2022 Chronic Residual codes; unclassified (14 sources) Obstructive sleep apnea syndrome; Translations: [Obstructive sleep apnea (adult) (pediatric)] Onset: 04-11-2019 03-11-2023 Chronic Residual codes; unclassified (6 sources) Obstructive sleep apnea (adult) (pediatric); Translations: [Obstructive sleep apnea (adult)(pediatric)] Onset: 07-02-2021 Resolved: 07-02-2021 Chronic Residual codes; unclassified (1 source) Obstructive sleep apnea (adult)(pediatric); Translations: [Obstructive sleep apnea (adult) (pediatric)] Onset: 06-27-2023 Chronic Residual codes; unclassified (10 sources) 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 airway pressure ventilation; Translations: [Dependence on other enabling machines and devices] Onset: 12-14-2022 12-14-2022 Chronic Residual codes; unclassified (10 sources) Initial insomnia; Translations: [Other insomnia] Onset: 12-14-2022 12-14-2022 Chronic Spondylosis; intervertebral disc disorders; other back problems (20 sources) Spondylosis without myelopathy or radiculopathy, lumbar [...] Problem Classification Problem Date Documented Date Episodic/Chronic Administrative/social admission (2 sources) Patient encounter status; Translations: [Other specified counseling] 04-09-2024 Episodic Blindness and vision defects (10 sources) Diplopia; Translations: [Diplopia] Onset: 03-11-2023 03-11-2023 Episodic Conditions associated with dizziness or vertigo (9 sources) Vertigo; Translations: [Dizziness and giddiness] Onset: 10-27-2023 10-27-2023 Episodic E Codes: Fall (1 source) Unspecified fall, initial encounter; Translations: [UNSPECIFIED FALL INITIAL ENCOUNTER] Onset: 01-07-2022 Episodic Fracture of upper limb (10 sources) Fracture of radial neck; Translations: [Displaced fracture of neck of unspecified radius, initial encounter for closed fracture] Onset: 03-11-2023 03-11-2023 Episodic Mood disorders (7 sources) Mood disorders Onset: 04-09-2024 04-09-2024 Other aftercare (1 source) manager intermediate (current) use of insulin; Translations: [[facility] CURRENT USE OF INSULIN] Onset: 01-27-2022 Episodic Other aftercare (1 source) manager intermediate (current) use of aspirin; Translations: [[facility] CURRENT USE OF ASPIRIN] Onset: 01-07-2022 Episodic Other aftercare (1 source) retirement (current) use of oral hypoglycemic drugs; Translations: [ZOOGLER USE ORAL HYPOGLYCEMIC DX] Onset: 01-07-2022 Episodic Other aftercare (1 source) Other shelter (current) drug therapy; Translations: [OTH ZOOGLER CURRENT DRUG THERAPY] Onset: 01-07-2022 Episodic Other aftercare (10 sources) Long-term current use of insulin; Translations: [retirement (current) use of insulin] Onset: 01-28-2016 03-11-2023 Episodic Other and unspecified benign neoplasm (10 sources) Adenomatous polyp of colon ; Translations: [Benign neoplasm of ascending colon] Onset: 12-14-2022 12-14-2022 Episodic Other and unspecified benign neoplasm (10 sources) History of polyp of colon; Translations: [Personal history of colonic polyps] Onset: 06-01-2018 03-11-2023 Episodic Other and unspecified benign neoplasm (10 sources) Benign neoplasm of colon; Translations: [Benign neoplasm of colon, unspecified] Onset: 06-27-2018 03-11-2023 Episodic Other bone disease and musculoskeletal deformities (10 sources) Osteopenia; Translations: [Other specified disorders of bone density and structure, unspecified site] Onset: 12-14-2022 12-14-2022 Episodic Other connective tissue disease (1 source) Arthrodesis status; Translations: [ARTHRODESIS STATUS] Onset: 01-27-2022 Episodic Other connective tissue disease (10 sources) Trigger thumb of left hand; Translations: [Trigger thumb, left thumb] Onset: 12-14-2022 12-14-2022 Episodic Other connective tissue disease (10 sources) Acquired trigger finger; Translations: [Trigger finger, unspecified finger] Onset: 01-15-2021 03-11-2023 Episodic Other connective tissue disease (2 sources) Iliopsoas bursitis of right hip; Translations: [Other bursitis of hip, right hip] 04-09-2024 Episodic Other diseases of veins and lymphatics (10 sources) Peripheral venous insufficiency; Translations: [Venous insufficiency (chronic) (peripheral)] Onset: 12-14-2022 12-14-2022 Episodic Other eye disorders (10 sources) Lower eyelid ectropion; Translations: [Unspecified ectropion of unspecified eye, unspecified eyelid] Onset: 03-11-2023 03-11-2023 Episodic Other eye disorders (10 sources) Epiphora; Translations: [Unspecified epiphora, unspecified side] Onset: 04-08-2022 03-11-2023 Episodic Other injuries and conditions due to external causes (10 sources) History of fall; Translations: [History of falling] Onset: 10-02-2015 03-11-2023 Episodic Other non-traumatic joint disorders (10 sources) Pain in elbow; Translations: [Pain in unspecified elbow] Onset: 03-11-2023 03-11-2023 Episodic Other nutritional; endocrine; and metabolic disorders (10 sources) Cholesterol level - finding; Translations: [Lipoprotein deficiency] Onset: 12-14-2022 Resolved: 12-14-2022 12-14-2022 Chronic Residual codes; unclassified (1 source) Insomnia, unspecified; Translations: [INSOMNIA UNSPECIFIED] Onset: 07-17-2022 Episodic Residual codes; unclassified (2 sources) Localized edema; Translations: [Localized edema] Onset: 09-28-2022 Episodic Residual codes; unclassified (10 sources) Insomnia; Translations: [Insomnia, unspecified] Onset: 06-10-2015 03-11-2023 Episodic Residual codes; unclassified (10 sources) Family history of malignant neoplasm of gastrointestinal tract; Translations: [Family history of malignant neoplasm of digestive organs] Onset: 06-01-2018 03-11-2023 Episodic Screening and history of mental health and substance abuse codes (10 sources) Ex-smoker; Translations: [Personal history of nicotine dependence] Onset: 10-22-2015 03-11-2023 Episodic Skull and face fractures (20 sources) Closed fracture of orbital floor (blow-out); Translations: [Fracture of orbital floor, unspecified side, initial encounter for closed fracture] Onset: 03-11-2023 03-11-2023 Episodic Thyroid disorders (10 sources) Sick-euthyroid syndrome; Translations: [Sick-euthyroid syndrome] Onset: 12-14-2022 12-14-2022 Episodic Unclassified (1 source) LOW BACK PAIN, UNSPECIFIED; Translations: [LOW BACK PAIN, UNSPECIFIED] Onset: 10-30-2021 Results Test Name Value Interpretation Reference Range Facility ALL BASIC METABOLIC PANELon 07-18-2024 Anion gap [Moles/Vol] 11.6 mmol/L [facility] Calcium [Mass/Vol] 9 mg/dL 8.5 - 10. 1 mg/dL [facility] Chloride [Moles/Vol] 106 mmol/L 98 - 10 7 mmol/L [facility] CO2 [Moles/Vol] 30.2 mmol/L 21.0 - 32.0 mmol/L [facility] Creatinine [Mass/Vol] 0.99 mg/dL 0.55 - 1.02 mg/dL [facility] GFR/1.73 sq M.predicted CKD-EPI (S/P/Bld) [Vol rate/Area] >60 >=60 mL/min/1.73m 2 [facility] Glucose [Mass/Vol] 132 mg/dL High 74 - 106 mg/dL NO [facility] Interpretation and review of laboratory results Abnormal [facility] Potassium [Moles/Vol] 3.8 mmol/L 3.5 - 5.1 mmol/L [facility] Sodium [Moles/Vol] 144 mmol/L 136 - 145 mmol/L [facility] TBH EGFR-NON AF MALDIVIAN 54 Low >=60 mL/min/1.73m 2 [facility] Urea nitrogen [Mass/Vol] 15 mg/dL 7.0 - 18.0 mg/dL [facility] Urea nitrogen/Creatinine [Mass ratio] 15.2 mg/mg [facility] HbA1c (Bld) [Mass fraction]o n 04-09-2024 [facility] - Hematology and Cell countson 04-09-2024 HbA1c (Bld) [Mass fraction] 7.0 % [facility] 36on 01-26-2023 36 Follow-up in 3 months as planned. Thanks [facility] Office Visiton 01-03-2023 Follow-up visit [id number] Cece Mobley 1945 Provider Department Center 01/03/2023 URI [facility]ERN PAULA [facility] Family History Problem Relation Age of Onset Diabetes Father Heart disease Father Coronary artery disease Father Coronary artery disease Brother Family Status - Relation Status Age at Father Brother Level of Service:80435 [place] OFFICE/OUTPATIENT ESTABLISHED LOW MDM 20-29 MIN Reason for Visit and Comments: Medication Problem [65] [facility] Office Visiton 09-28-2022 Follow-up visit [id number] Cece Mobley 1945 Provider Department Center 09/28/2022 [facility] [place] [facility] [facility] Family History Problem Relation Age of Onset Diabetes Father Heart disease Father Coronary artery disease Father Coronary artery disease Brother Family Status - Relation Status Age at Father Brother Level of Service:99839 [place] OFFICE/OUTPATIENT ESTABLISHED LOW MDM 20-29 MIN Reason for Visit and Comments: Hypertension [564473] Normal [facility] PROF CHEM 8 (BAS METB)on Anion gap [Moles/Vol] 11.6 mmol/L Normal [facility] Comment on above: Performed By: #### B MP #### [facility] [address] [address] [address] Rose Chadwick Calcium [Mass/Vol] 9.4 mg/dL Normal 8.5-10.1 [facility] Comment on above: Performed By: #### B MP #### [facility] [address] [address] [address] Rose Chadwick Chloride [Moles/Vol] 101 mmol/L Normal 98-107 [facility] Comment on above: Performed By: #### B MP #### [facility] [address] [address] [address] Rose Chadwick CO2 [Moles/Vol] 32.6 mmol/L Critically high 21.0-32.0 [facility] Comment on above: Performed By: #### B MP #### [facility] [address] [address] [address] Rose Chadwick Creatinine [Mass/Vol] 0.86 mg/dL Normal 0.55-1.02 [facility] Comment on above: Performed By: #### B MP #### [facility] [address] [place] [address] Dr. Rose Chadwick EGFR-AF MALDIVIAN >60 Normal >=60 [facility] Comment on above: Performed By: #### B MP #### [facility] [address] [address] [address] Rose Chadwick EGFR-NON AF MALDIVIAN >60 Normal >=60 [facility] Comment on above: Performed By: #### B MP #### [facility] [address] [place] [address] Dr. Rose Chadwick Glucose [Mass/Vol] 108 mg/dL Critically high 74-106 [facility] Comment on above: Performed By: #### B MP #### [facility] [address] [place] [address] Dr. Rose Chadwick Potassium [Moles/Vol] 4.2 mmol/L Normal 3.5-5.1 [facility] Comment on above: Performed By: #### B MP #### [facility] [address] [address] [address] Rose Chadwick Sodium [Moles/Vol] 141 mmol/L Normal 136-145 [facility] Comment on above: Performed By: #### B MP #### [facility] [address] [place] [address] Dr. Rose Chadwick Urea nitrogen [Mass/Vol] 15.0 mg/dL Normal 7.0-18.0 [facility] Comment on above: Performed By: #### B MP #### [facility] [address] [address] [address] Rose Chadwick Urea nitrogen/Creatinine [Mass ratio] 17.4 mg/mg Normal [facility] Comment on above: Performed By: #### B MP #### [facility] [address] [address] [address] Rose Chadwick 37on 08-31-2022 37 -Obtain an arm BP monitor, Omron brand is preferred -Check blood pressure at least once daily 2-3 hours after taking medications - Stop taking Losartan -Start taking Losartan-hydrochloro thiazide -Check labs in 1 week Normal [facility] Office Visiton 08-31-2022 Follow-up visit [id number] Cece Mobley 1945 F Date Provider Department Center 08/31/2022 [id number]-JIKLKHIILOSCAR DEL TORO [facility] Family History Problem Relation Age of Onset Diabetes Father Heart disease Father Coronary artery disease Father Coronary artery disease Brother Family Status - Relation Status Age at Father Brother Level of Service:72180 [place] OFFICE/OUTPATIENT ESTABLISHED LOW MDM 20-29 MIN Reason for Visit and Comments: Hypertension [867457] Normal [facility] PROF CHEM 8 (BAS METB)on Anion gap [Moles/Vol] 11.9 mmol/L Normal [facility] Comment on above: Performed By: #### B MP #### [facility] [address] [address] [address] Rose Chadwick Calcium [Mass/Vol] 9.0 mg/dL Normal 8.5-10.1 [facility] Comment on above: Performed By: #### B MP #### [facility] [address] [address] [address] Rose Chadwick Chloride [Moles/Vol] 103 mmol/L Normal 98-107 [facility] Comment on above: Performed By: #### B MP #### [facility] [address] [address] [address] Rose Chadwick CO2 [Moles/Vol] 30.3 mmol/L Normal 21.0-32.0 [facility] Comment on above: Performed By: #### B MP #### [facility] [address] [address] [address] Rose Chadwick Creatinine [Mass/Vol] 0.84 mg/dL Normal 0.55-1.02 [facility] Comment on above: Performed By: #### B MP #### [facility] [address] [address] [address] Rose Chadwick EGFR-AF MALDIVIAN >60 Normal >=60 [facility] Comment on above: Performed By: #### B MP #### [facility] [address] [address] [address] Rose Chadwick EGFR-NON AF MALDIVIAN >60 Normal >=60 [facility] Comment on above: Performed By: #### B MP #### [facility] [address] [address] [address] Rose Chadwick Glucose [Mass/Vol] 119 mg/dL Critically high 74-106 [facility] Comment on above: Performed By: #### B MP #### [facility] [address] [address] [address] Rose Chadwick Potassium [Moles/Vol] 4.2 mmol/L Normal 3.5-5.1 [facility] Comment on above: Performed By: #### B MP #### [facility] [address] [address] [address] Rose Chadwick Sodium [Moles/Vol] 141 mmol/L Normal 136-145 [facility] Comment on above: Performed By: #### B MP #### [facility] [address] [address] [address] Rose Chadwick Urea nitrogen [Mass/Vol] 13.0 mg/dL Normal 7.0-18.0 [facility] Comment on above: Performed By: #### B MP #### [facility] [address] [address] [address] Rose Chadwick Urea nitrogen/Creatinine [Mass ratio] 15.5 mg/mg Normal [facility] Comment on above: Performed By: #### B MP #### [facility] [address] [address] [address] Rose Chadwick Follow-Upon 06-01-2022 Follow-Up [id number] Cece Mobley 1945 F Date Provider Department Center 06/01/2022 ANGELA CAMERON CARD [facility] Family History Problem Relation Age of Onset Diabetes Father Heart disease Father Coronary artery disease Father Coronary artery disease Brother Family Status - Relation Status Age at Father Brother Level of Service:91263 [place] OFFICE/OUTPATIENT ESTABLISHED LOW [facility] 20-29 MIN Reason for Visit and Comments: Hypertension [[id number]] Normal [facility] PROF CHEM 8 (BAS METB)on Anion gap [Moles/Vol] 11.1 mmol/L Normal [facility] Comment on above: Performed By: #### B MP #### [facility] [address] [address] [address] Rose Chadwick Calcium [Mass/Vol] 9.0 mg/dL Normal 8.5-10.1 [facility] Comment on above: Performed By: #### B MP #### [facility] [address] [address] [address] Rose Chadwick Chloride [Moles/Vol] 103 mmol/L Normal 98-107 [facility] Comment on above: Performed By: #### B MP #### [facility] [address] [address] [address] Rose Chadwick CO2 [Moles/Vol] 29.6 mmol/L Normal 21.0-32.0 [facility] Comment on above: Performed By: #### B MP #### [facility] [id number] Rose Chadwick Creatinine [Mass/Vol] 1.22 mg/dL Critically high 0.55-1.02 [facility] Comment on above: Performed By: #### B MP #### [facility] [id number] Rose Chadwick EGFR-AF MALDIVIAN 52 mL/min/1.73m2 Critically low >=60 [facility] Comment on above: Performed By: #### B MP #### [facility] [address] [address] [address] Rose Chadwick EGFR-NON AF MALDIVIAN 43 mL/min/1.73m2 Critically low >=60 [facility] Comment on above: Performed By: #### B MP #### [facility] [address] [address] [address] Rose Chadwick Glucose [Mass/Vol] 112 mg/dL Critically high 74-106 [facility] Comment on above: Performed By: #### B MP #### [facility] [address] [address] [address] Rose Chadwick Potassium [Moles/Vol] 4.7 mmol/L Normal 3.5-5.1 [facility] Comment on above: Performed By: #### B MP #### [facility] [address] [address] [address] Rose Chadwick Sodium [Moles/Vol] 139 mmol/L Normal 136-145 [facility] Comment on above: Performed By: #### B MP #### [facility] [address] [address] [address] Rose Chadwick Urea nitrogen [Mass/Vol] 23.0 mg/dL Critically high 7.0-18.0 [facility] Comment on above: Performed By: #### B MP #### [facility] [address] [address] [address] Rose Chadwick Urea nitrogen/Creatinine [Mass ratio] 18.9 mg/mg Normal [facility] Comment on above: Performed By: #### B MP #### [facility] [id number] Rose Chadwick 30on 05-10-2022 30 Recent [...] and med changes on voice mail message. Angela Gillespie NP Division of Cardiology, [facility]- [phone] Pager- [phone] Email- [email or web address] Normal [facility] Documentationon 05-10-2022 Documentation [id number] ItzCece G 1945 F Date Provider Department Center 05/10/2022 120-ANGELA GILLESPIE [facility] Family History Problem Relation Age of [...] med changes on voice mail message. Normal [facility] Orders Onlyon 05-10-2022 Orders Only [id number] ItzCece G 1945 F Date Provider Department Center 05/10/2022 CA AMANDA PAULA [facility] Family History Problem Relation Age of Onset Diabetes Father Heart disease Father Coronary artery disease Father Coronary artery disease Brother Family Status - Relation Status Age at Father Brother Normal [facility] PROF CHEM 8 (BAS METB)on Anion gap [Moles/Vol] 13.4 mmol/L Normal [facility] Comment on above: Performed By: #### B MP ####[facility] [address] [place], [place] [address]IiAlexx Chadwick Calcium [Mass/Vol] 9.1 mg/dL Normal 8.5-10.1 [facility] Comment on above: Performed By: #### B MP ####[facility] [address] [id number][address] Rose Chadwick Chloride [Moles/Vol] 103 mmol/L Normal 98-107 [facility] Comment on above: Performed By: #### B MP ####[facility] [address] [address]Dr. Rose Chadwick CO2 [Moles/Vol] 28.3 mmol/L Normal 21.0-32.0 [facility] Comment on above: Performed By: #### B MP ####[facility] [address] [address]Dr. Rose Chadwick Creatinine [Mass/Vol] 1.42 mg/dL Critically high 0.55-1.02 [facility] Comment on above: Performed By: #### B MP ####[facility] [address] [place], [place] [address]Dr. Karlajoni Chadwick EGFR-AF MALDIVIAN 43 mL/min/1.73m2 Critically low >=60 [facility] Comment on above: Performed By: #### B MP ####[facility] [address] [place], [place] [address]Dr. Rose Farrukh EGFR-NON AF MALDIVIAN 36 mL/min/1.73m2 Critically low >=60 [facility] Comment on above: Performed By: #### B MP ####[facility] [address] [place], [place] [address]Dr. Rose Farrukh Glucose [Mass/Vol] 125 mg/dL Critically high 74-106 [facility] Comment on above: Performed By: #### B MP ####[facility] [address] [address] Rose Farrukh Potassium [Moles/Vol] 5.7 mmol/L Critically high 3.5-5.1 [facility] Comment on above: Performed By: #### B MP ####[facility] [address] [address]Dr. Rose Chadwick Sodium [Moles/Vol] 139 mmol/L Normal 136-145 [facility] Comment on above: Performed By: #### B MP ####[facility] [address] [place], [place] [address]GbAlexx Chadwick Urea nitrogen [Mass/Vol] 28.0 mg/dL Critically high 7.0-18.0 [facility] Comment on above: Performed By: #### B MP ####[facility] [address] [place], [place] [address]WzAlexx Chadwick Urea nitrogen/Creatinine [Mass ratio] 19.7 mg/mg Normal [facility] Comment on above: Performed By: #### B MP ####[facility] [address] [place], [place] [address]JnAlexx Chadwick Office Visiton 04-28-2022 Follow-up visit [id number] Cece Mobley 1945 [facility] Provider Department Center 04/28/2022 ANGELA CAMERON [facility] Family History Problem Relation Age of Onset Diabetes Father Heart disease Father Coronary artery disease Father Coronary artery disease Brother Family Status - Relation Status Age at Father Brother Level of Service:96248 [place] OFFICE/OUTPATIENT ESTABLISHED MOD MDM 30-39 MIN Reason for Visit and Comments: Hypertension [727443] - Patient here for 3 mo follow up hypertension. Denies chest pain and SOB. Normal [facility] Abstracton 04-16-2022 Abstract [id number] Cece Mobley 1945 Provider Department Center 04/16/2022 CA AMANDA [facility] Family History Problem Relation Age of Onset Diabetes Father Heart disease Father Coronary artery disease Father Coronary artery disease Brother Family Status - Relation Status Age at Father Brother Normal [facility] POINT OF CARE GLUCOSEon 01-13 Glucose [Mass/Vol] 120 mg/dL Critically high 74-106 [facility] Comment on above: Performed By: #### P OCGLUC #### [facility] [address], [place] [address] PELVIS WO CONon [...] by: JOE MUKHERJEE Date: 2022-01-06 12:14 Normal [facility] XR DEXA BONE DENSITYon 01-04 XR [...] by: JOE MUKHERJEE Date: 2022-01-04 11:51 Normal [facility] CT LSPINE WO CONon 2 CT [...] by: JOE MUKHERJEE Date: 2021-11-30 16:48 Normal [facility] PROF CHEM 8 (BAS METB)on Anion gap [Moles/Vol] 13.3 mmol/L Normal [facility] Comment on above: Performed By: #### B MP ####[facility] [address] [place], [place] [address]FwAlexx Chadwick Calcium [Mass/Vol] 8.8 mg/dL Normal 8.5-10.1 [facility] Comment on above: Performed By: #### B MP ####[facility] [address] [place], [place] [address]NvAlexx Chadwick Chloride [Moles/Vol] 101 mmol/L Normal 98-107 [facility] Comment on above: Performed By: #### B MP ####[facility] [address] [address]Dr. Rose Chadwick CO2 [Moles/Vol] 29.5 mmol/L Normal 22.0-30.0 [facility] Comment on above: Performed By: #### B MP ####[facility] [address] [address]Dr. Rose Chadwick Creatinine [Mass/Vol] 0.85 mg/dL Normal 0.52-1.04 [facility] Comment on above: Performed By: #### B MP ####[facility] [address] [address]Dr. Karlajoni Chadwick EGFR-AF MALDIVIAN >60 Normal >=60 [facility] Comment on above: Performed By: #### B MP ####[facility] [address] [place], [place] [address]Dr. Karlajoni Farrukh EGFR-NON AF MALDIVIAN >60 Normal >=60 [facility] Comment on above: Performed By: #### B MP ####[facility] [address] [place], [place] [address]Dr. Rose Chadwick Glucose [Mass/Vol] 116 mg/dL Critically high 74-106 [facility] Comment on above: Performed By: #### B MP ####[facility] [address] [place], [place] [address]Dr. Karlajoni Chadwick Potassium [Moles/Vol] 4.8 mmol/L Normal 3.4-5.0 [facility] Comment on above: Performed By: #### B MP ####[facility] [address] [place], [place] [address]Dr. Karlajoni Chadwick Sodium [Moles/Vol] 139 mmol/L Normal 137-145 [facility] Comment on above: Performed By: #### B MP ####[facility] [address] [address]Dr. Karlajoni Chadwick Urea nitrogen [Mass/Vol] 15.0 mg/dL Normal 7.0-18.0 [facility] Comment on above: Performed By: #### B MP ####[facility] [address] [place], [place] [address]Gl. Rose Farrukh Urea nitrogen/Creatinine [Mass ratio] 17.6 mg/mg Normal [facility] Comment on above: Performed By: #### B MP ####[facility] [address] [place], [place] [address]Wt. Rose Chadwick XR LSPINE MIN 4 VIEWSon [...] PATITO DE JESUS Date: 2021-10-30 15:27 Normal [facility] Vital Signs Date Time Vital Sign Value Performing Clinician Facility 06-29-2024 11:41-0500 Body mass index (BMI) [Ratio] 35.9 kg/m2 [facility] 06-28-2024 15:19-0500 Body height 152.4 cm [facility] 06-28-2024 15:19-0500 Body weight 83.46 kg [facility] 06-28-2024 15:19-0500 Diastolic blood pressure 84 mm[Hg] [facility] 06-28-2024 15:19-0500 Heart rate 87 /min [facility] 06-28-2024 15:19-0500 SaO2% (BldA) [Mass fraction] 96 % [facility] 06-28-2024 15:19-0500 Systolic blood pressure 170 mm[Hg] [facility] 04-09-2024 11:10-0400 Body mass index (BMI) [Ratio] 36.21 kg/m2 Kofi Bowers MD Work Phone: [facility] 04-09-2024 11:10-0400 Body weight 84.1 kg Kofi Bowers MD Work Phone: [facility] 04-09-2024 11:10-0400 Diastolic blood pressure 65 mm[Hg] Kofi Bowers MD Work Phone: [facility] 04-09-2024 11:10-0400 Heart rate 70 /min Kofi Bowers MD Work Phone: [facility] 04-09-2024 11:10-0400 Respiratory rate 16 /min Kofi Bowers MD Work Phone: [facility] 04-09-2024 11:10-0400 SaO2% (BldA) [Mass fraction] 93 % Kofi Bowers MD Work Phone: [facility] 04-09-2024 11:10-0400 Systolic blood pressure 115 mm[Hg] Kofi Bowers MD Work Phone: [facility] 06-27-2023 13:00-0500 Body height 154.94 cm Nishchrista Acosta Other [employer] Other 06-27-2023 13:00-0500 Body mass index (BMI) [Ratio] 35.9 kg/m2 Abdullahi Dave Other [employer] Other 06-27-2023 13:00-0500 Body weight 86.18 kg Abdullahi Dave Other [employer] Other 06-27-2023 13:00-0500 Diastolic blood pressure 64 mm[Hg] Abdullahi Acosta Other [employer] Other 06-27-2023 13:00-0500 SaO2% (BldA) [Mass fraction] 97 % Abdullahi Acosta Other [employer] Other 06-27-2023 13:00-0500 Systolic blood pressure 131 mm[Hg] Abdullahi Acosta Other [employer] Other 06-28-2022 14:00-0500 Body height 154.94 cm Abdullahi Acosta Other [employer] Other 06-28-2022 14:00-0500 Body mass index (BMI) [Ratio] 37.22 kg/m2 Abdullahi Cernaban Other [employer] Other 06-28-2022 14:00-0500 Body temperature 96.8 [degF] Abdullahi Acosta Other [employer] Other 06-28-2022 14:00-0500 Body weight 89.36 kg Abdullahi Acosta Other [employer] Other 06-28-2022 14:00-0500 Diastolic blood pressure 73 mm[Hg] Abdullahi Acosta Other [employer] Other 06-28-2022 14:00-0500 SaO2% (BldA) [Mass fraction] 97 % Abdullahi Acosta Other [employer] Other 06-28-2022 14:00-0500 Systolic blood pressure 143 mm[Hg] Abdullahi Acosta Other [employer] Other 07-02-2021 14:00-0500 Body height 154.94 cm Olamide Jeane Other [employer] Other 07-02-2021 14:00-0500 Body mass index (BMI) [Ratio] 35.33 kg/m2 Olamide Jeane Other [employer] Other 07-02-2021 14:00-0500 Body temperature 96 [degF] Olamide Jeane Other [employer] Other 07-02-2021 14:00-0500 Body weight 84.82 kg Olamide Jeane Other [employer] Other 07-02-2021 14:00-0500 Diastolic blood pressure 83 mm[Hg] Olamide Jeane Other [employer] Other 07-02-2021 14:00-0500 SaO2% (BldA) [Mass fraction] 97 % Olamide Jeane Other [employer] Other 07-02-2021 14:00-0500 Systolic blood pressure 176 mm[Hg] Olamide Jeane Other [employer] Other Encounters Encounter Date Encounter Type Care Provider Facility Start: 08-02-2024 End: 08-02-2024 Ko Bowers MD Work Phone: [facility] Comment on above: Failed back syndrome Start: 07-30-2024 End: 07-30-2024 ambulatory Esperanza Maya MD Facility:[facility] Start: 07-23-2024 End: 07-23-2024 ambulatory Esperanza Maya MD Facility:[facility] [place] [facility] Start: 07-18-2024 End: 07-18-2024 Clinisync Result Encounter Generic External Data Provider [facility] External Department Unsolicited Start: 07-18-2024 End: 07-18-2024 Clinisync Result Encounter Generic External Data Provider [facility] External Department Unsolicited Start: 07-02-2024 End: 07-02-2024 Ko Bowers MD Work Phone: [facility] Comment on above: Failed back syndrome ; Hypothyroidism, unspecified type (CMS/HCC) Start: 06-29-2024 End: 06-29-2024 ambulatory [facility] Work Phone: Start: 06-29-2024 End: 06-29-2024 Patient encounter procedure [facility] Work Phone: Start: 06-04-2024 End: 06-04-2024 Refill Kofi Bowers MD Work Phone: [facility] Comment on above: Failed back syndrome Start: 05-07-2024 End: 05-07-2024 Refill Kofi Bowers MD Work Phone: [facility] Comment on above: Failed back syndrome Start: 04-09-2024 End: 04-09-2024 Bamboo flowsheet Kofi Bowers MD Work Phone: [facility] Start: 04-09-2024 End: 04-09-2024 Bamboo flowsheet Kofi Bowers MD Work Phone: [facility] Start: 04-09-2024 End: 04-09-2024 Assay of hemosiderin, quant Kofi Bowers MD Work Phone: [facility] Work Phone: Start: 04-09-2024 End: 04-09-2024 Patient encounter procedure Kofi Bowers MD Work Phone: [facility] Comment on above: Routine general medi mark examination at health care facility (Primary Dx); ACP (advance care planning); Type 2 diabetes mellitus without complication, without long-term current use of insulin (CMS/HCC); Morbid (severe) obesity due to excess calories (CMS/HCC); Essential (primary) hypertension (CMS/HCC); Body mass index (BMI) 35.0-35.9, adult; Peripheral vascular disease, unspecified (CMS/HCC); Iliopsoas bursitis of right hip Start: 04-09-2024 End: 04-09-2024 ambulatory KOFI BOWERS Not Available Start: 04-04-2024 End: 04-04-2024 Refill Kofi Bowers MD Work Phone: [facility] Comment on above: Failed back syndrome Start: 03-18-2024 End: 03-18-2024 Emergency department patient visit KOFI BOWERS [facility] Start: 01-18-2024 End: 01-18-2024 ambulatory ABEL GOODE [...] Available Start: 11-01-2023 End: 11-01-2023 ambulatory KEN TATTERSALL Not Available Start: 10-28-2023 End: 10-28-2023 ambulatory GHAZAL GRIFFIN Not Available Start: 10-27-2023 End: 10-27-2023 ambulatory KOFI BOWERS Not Available Start: 09-29-2023 Refill Kofi Bowers MD Work Phone: [facility] Comment on above: Failed back syndrome Start: 07-20-2023 End: 07-20-2023 ambulatory ABEL GOODE Not Available Start: 06-27-2023 End: 06-27-2023 ambulatory Kamal Chacheyenne Facility:[facility] Start: 06-27-2023 Office outpatient vi sit 15 minutes Kamal Chaban [facility] Start: 06-27-2023 End: 06-27-2023 ambulatory II Kofi Bowers Work Phone: [facility] Work Phone: Start: 06-27-2023 End: 06-27-2023 Patient encounter procedure II Kofi Bowers Work Phone: [facility] Work Phone: Start: 01-18-2023 ambulatory NARENDRANATH LAKSHMIPATHY . Facility:[facility] Start: 01-03-2023 End: 01-03-2023 ambulatory URI CARLSON [facility] Start: 10-14-2022 End: 10-15-[address] SERENITY GARCIA . Facility:[facility] Start: 09-28-2022 End: 09-28-2022 ambulatory [facility] Start: 09-07-2022 End: 09-08-[address] DOCTOR BUENROSTRO Facility:[facility] Start: 08-31-2022 End: 08-31-2022 ambulatory [facility] Start: 08-23-2022 End: 08-24-[address] FRANKLYN GARCIA Facility:[facility] Start: 07-14-2022 End: 07-15-2022 ambulatory BETZAIDA ZIMMER . Facility:[facility] Start: 06-28-2022 Office outpatient vi sit 15 minutes [facility] [facility] Start: 06-28-2022 End: 06-28-2022 ambulatory II Kofi Bowers Work Phone: [facility] Work Phone: Start: 06-28-2022 End: 06-28-2022 Patient encounter procedure II Kofi Bowers Work Phone: [facility] Start: 06-01-2022 End: 06-01-2022 ambulatory [facility] Start: 05-18-2022 End: 05-19-2022 ambulatory ANGELA VERNA Facility:H1 Start: 05-05-2022 End: 05-06-2022 ambulatory ANGELA VERNA Facility:H1 Start: 04-28-2022 End: 04-28-[address] [facility] Start: 04-08-2022 End: 04-08-[address] SERENITY GARICA . Facility:H1 Start: 02-10-2022 End: 02-11-[address] SERENITY GARCIA . Facility:[facility]1 Start: 01-26-2022 End: 01-26-[address] SERENITY GARCIA . Facility:H1 Start: 01-06-2022 End: 01-06-[address] JOE MUKHERJEE Facility:H1 Start: 01-04-2022 End: 01-05-[address] KOFI BOWERS Facility:H1 Start: 12-06-2021 ambulatory OLIVA KAPILMARTIBERKLEYDERRICK Faci lity:H1 Start: 11-30-2021 End: 12-01-[address] KOFI BOWERS Facility:H1 Start: 11-23-2021 ambulatory BETZAIDA ZIMMER . Facility:H 1 Start: 11-03-2021 End: 11-04-2021 ambulatory OLIVA GLEN Facility:H1 Start: 10-30-2021 End: 10-31-[address] KOFI BOWERS Facility:H1 Start: 07-02-2021 End: 07-02-2021 ambulatory Olamide Ching Other [employer] Other Start: 07-02-2021 Office outpatient vi sit 15 minutes Olamide Ching [facility] Procedures Date Procedure Procedure Detail Performing Clinician Start: 07-18-2024 ALL BASIC METABOLIC PANEL Generic External Data Provider Start: 04-09-2024 Hemoglobin glycosyla chad a1c Kofi Bowers MD Work Phone: Plan of Treatment Date Care Activity Detail Author Start: 04-09-2025 Medicare Annual Wellness (AWV) Medicare Annual Wellness (AWV) [facility] Start: 04-09-2025 Urine screening for protein Diabetes: Urine Protein Screening [facility] Start: 01-17-2025 Urine screening for protein Diabetes: Urine Protein Screening [facility] Start: 08-13-2024 End: 08-13-2024 Patient encounter procedure 08/13/2024 1:15 PM EST Office Visit [facility] [address] [place] [id number] Kofi Bowers MD [address] [place] [address] [facility] Start: 08-09-2024 End: 08-09-2024 Patient encounter procedure 08/09/2024 1:15 PM EST Office Visit [facility] [address] [place] [phone] Kofi Bowers MD [address] [facility] [address] [place] [address] [facility] Start: 07-10-2024 Hemoglobin A1c measurement Diabetes: Hemoglobin A1C [facility] Start: 04-15-2024 Influenza vaccination Influenza Vacc ine (#1) [facility] Start: 04-09-2024 End: 04-09-2025 Microalbumin/Creatinine panel in random Urine Microalbumin / creatinine, urine ratio Lab Routine Type 2 diabetes mellitus without complication, without long-term current use of insulin ([facility]) Expected: 04/09/2024 (Approximate), Expires: 04/09/2025 [facility] Work Phone: Comment on above: Expected: 04/09/2024 (Approximate), Expires: 04/09/2025 Start: 04-09-2024 End: 04-09-2024 Patient encounter procedure [facility] Comment on above: Arrived Start: 01-27-2024 Hemoglobin A1c measurement Diabetes: Hemoglobin A1C [facility] Start: 01-04-2024 Medicare Annual Wellness (AWV) Medicare Annual Wellness (AWV) [facility] Start: 01-04-2024 Urine screening for protein Diabetes: Urine Protein Screening [facility] Start: 10-27-2023 End: 10-27-2023 Patient encounter procedure 10/27/2023 2:45 PM EDT Office Visit [facility] [address] [facility] [address] [place] [phone] Kofi Bowers MD 112 [facility] [address] [place] [address] [facility] Start: 10-19-2023 Hemoglobin A1c [...] Bowers MD Work Phone: [facility] 06-06-2023 influenza virus vacc ine, unspecified formulation Kofi Bowers MD Work Phone: [facility] 05-20-2021 Influenza, injectabl e, Madmarsha Haganby Canine Kidney, preservative free, quadrivalent Kofi Bowers [...] Hospital Payers Date Payer Category Payer Medicare [id number] 2023 Medicare (Managed Care) [facility] [id number] 2022 Medicare [id number] 2017 Medicare [id number] 1959 Medicare [id number] 1959 Medicare [id number] 1959 Private Health Insurance [facility] [id number] 1959 Self-pay [id number] 1945 Unknown [id number] 2.16840.1.024611.3.579.2. 593 1945 Unknown [id number] 2.16840.1.794083.3.579.2. 593 1945 Unknown [id number] 2.16.840.1.064052.3.579.2. 593 1945 Unknown [id number] 2.16.840.1.677581.3.579.2. 593 1945 Unknown [id number] 2.16840.1.086655.3.579.2. 593 1945 Unknown [id number] 2.16.840.1.312252.3.579.2. 593 1945 Unknown [id number] 2.16.840.1.474078.3.579.2. 593 1945 Unknown [id number] 2.16.840.1.163089.3.579.2. 593 1945 Unknown [id number] 2.16.840.1.835933.3.579.2. 593 1945 Unknown [id number] 2.16.840.1.236233.3.579.2. 593 1945 Unknown [id number] 2.16.840.1.079486.3.579.2. 593 1945 Unknown [id number] 2.16.840.1.358716.3.579.2. 593 1945 Unknown [id number] 2.16.840.1.927021.3.579.2. 593 1945 Unknown [id number] 2.16.840.1.253555.3.579.2. 593 1945 Unknown [id number] 2.16.840.1.576793.3.579.2. 593 1945 Unknown [id number] 2.16.840.1.536164.3.579.2. 593 1945 Unknown [id number] 2.840.1.042343.3.579.2. 593 1945 Unknown [id number] 2.840.1.254849.3.579.2. 593 1945 Unknown [id number] 2.16840.1.931367.3.579.2. 1286 1945 Unknown [id number] 2.16840.1.427441.3.579.2. 1259 1945 Unknown [id number] 2.840.1.769911.3.579.2. 1259 1945 Unknown [id number] 2.16.840.1.424743.3.579.2. 1259 1945 Unknown [id number] 2.16.840.1.086134.3.579.2. 125 1945 Unknown [id number] 2.16.840.1.539038.3.579.2. 1259 1945 Unknown [id number] 2.16.840.1.837592.3.579.2. 125 1945 Unknown [id number] 2.16.840.1.250432.3.579.2. 9 1945 Unknown [id number] 2.16.840.1.300205.3.579.2. 9 1945 Unknown [id number] 2.16.840.1.546550.3.579.2. 1258 1945 Unknown [id number] 2.16.840.1.272758.3.579.2. 1258 1945 Unknown [id number] 2.16.840.1.612517.3.579.2. 1258 1945 Unknown [id number] 2.16.840.1.306053.3.579.2. 9 1945 Unknown [id number] 2.16.840.1.038020.3.579.2. 196 1945 Unknown [id number] 2.16.840.1.545162.3.579.2. 196 Medicare Medicare [id number] Medicare Medicare [id number] Unknown Kaden BC/BS [id number] Unknown [id number] 2.16.840.1.587503.3.579.2. 531 Social History Date Type Detail Facility Unknown if ever smoked [employer] Other Start: 06-15-2018 End: 03-11-2023 Tobacco smoking status NHIS Ex-smoker (finding) [facility] Start: 1945 Sex Assigned At Female F [facility] Start: 07-20-2023 End: 04-09-2024 Sex Assigned At [employer] Other End: 08-15-1999 History of tobacco use Current smoker [facility] End: 08-15-1999 History of tobacco use Cigarette Smoker [facility] Start: 03-11-2023 Tobacco use and exposure Smokeless tobacco non-user [facility] Start: 07-20-2023 End: 04-09-2024 Alcohol intake Ex-drinker (finding) [facility] Start: 07-20-2023 End: 04-09-2024 History of Social function [facility] Start: 12-17-2022 Alcohol Comment Caffeine: 1-2 cups per day; none soda/pop [facility] Start: 1945 Sex Assigned At Not on file [facility] Start: 06-29-2024 Sex Female (finding) [facility] Clinical Notes 11-03-2021 to 08-02-2024 Telephone Encounter - Chelle Guallpa - 08/02/2024 10:31 AM ESTTelephone Encounter - Chelle Guallpa - 08/02/2024 10:31 AM ESTTelephone Encounter - Chelle Guallpa - 07/02/2024 9:45 AM EST Note Date & Type Note Facility 08-02-2024 Telephone encount er Note traMADol (Ultram) [address] [facility] [place] [facility] 08-02-2024 Miscellaneous Notes Formattin g of this note might be different from the original. traMADol (Ultram) [address] [place] documented in this encounter [facility] 07-02-2024 Telephone encount er Note traMADol (Ultram) 50 MG tablet liothyronine (Cytomel) 25 MCG tablet Ddm in [place] [facility] 07-02-2024 Miscellaneous Notes Formattin g of this note might be different from the original. traMADol (Ultram) 50 MG tablet liothyronine (Cytomel) 25 MCG tablet Ddm in [place] documented in this encounter [facility] 06-04-2024 Telephone encount er Note OARRS reviewed, Rx sent into patient's pharmacy. [facility] 06-04-2024 Miscellaneous Notes Formattin g of this note might be different from the original. OARRS reviewed, Rx sent into patient's pharmacy. traMADol (Ultram) 50 MG tablet Ddm in [place] documented in this encounter [facility] 06-04-2024 Telephone encount er Note traMADol (Ultram) 50 MG tablet Ddm in [place] [facility] 05-07-2024 Telephone encount er Note traMADol (Ultram) 50 MG tablet Ddm in [place] [facility] 05-07-2024 Miscellaneous Notes Formattin g of this note might be different from the original. traMADol (Ultram) 50 MG tablet Ddm in [place] documented in this encounter [facility] 04-09-2024 History of Presen t illness Narrative Images from the original note were not included. Subjective : Chief Complaint: Cece Mobley is an 78 y.o. female here for an annual wellness visit. I have reviewed and reconciled the history and medication list with the patient today. Current Outpatient Medications Medication Sig Dispense Refill acetaminophen (Tylenol) 500 MG tablet every 6 (six) hours. Allergy Relief 10 MG tablet TAKE 1 TABLET BY MOUTH EVERY MORNING 30 tablet 11 alpha tocopherol (Vitamin E) 400 units capsule 1 capsule. amLODIPine (Norvasc) 10 MG tablet Take 1 tablet (10 mg) by mouth in the morning. 100 tablet 3 Ascorbic Acid (Vitamin C) 500 MG/5ML liquid 1 capsule 1 (one) time each day at the same time. aspirin 81 MG EC tablet 1 (one) time each day at the same time. Calcium Citrate-Vitamin D (Mark-Citrate Plus Vitamin D) 250-2.5 MG-MCG tablet Take 1 tablet by mouth in the morning and 1 tablet in the evening. cetirizine (ZyrTEC) 10 MG tablet 1 (one) time each day at the same time. cholecalciferol (Vitamin D-3) 1.25 MG (42314 UT) tablet Vitamin D3 5000IU furosemide (Lasix) 40 MG tablet TAKE 1 TABLET (40 MG) BY MOUTH IN THE MORNING. 30 tablet 10 insulin detemir (Levemir FlexTouch) 100 UNIT/ML pen INJECT 60 UNITS SUBCUTANEOUSLY EACH MORNING for 25 liothyronine (Cytomel) 25 MCG tablet 0.5 tablet on an empty stomach Orally two times daily. D.A.W. as [employer] or [employer] Brand ONLY for 90 days 200 tablet 3 losartan-hydroCHLOROthiazide (Hyzaar) 100-25 MG tablet Take 1 tablet by mouth Daily 100 tablet 2 lovastatin (Mevacor) 20 MG tablet TAKE 1 TABLET BY MOUTH ONCE DAILY 30 tablet 10 metFORMIN (Glucophage) 1000 MG tablet TAKE 1 TABLET (1,000 MG) BY MOUTH IN THE MORNING AND 1 TABLET (1,000 MG) IN THE EVENING. TAKE WITH MEALS. 60 tablet 10 omeprazole (PriLOSEC) [address] capsule TAKE 1 CAPSULE (20 MG) BY MOUTH IN THE MORNING. 30 capsule 10 potassium chloride CR (Klor-Con M20) 20 MEQ ER tablet 1 (one) time each day at the same time. QUEtiapine (SEROquel) 50 MG tablet TAKE 1 TABLET BY MOUTH ONCE DAILY 30 tablet 10 rOPINIRole (Requip) 2 MG tablet Take 0.5 tablets (1 mg) by mouth at bedtime 30 tablet 2 traMADol (Ultram) 50 MG tablet Take 1 tablet (50 mg) by mouth every 6 (six) hours if needed for severe pain 120 tablet 0 Trulicity 4.5 MG/0.5ML solution pen-injector INJECT CONTENTS OF 1 SYRINGE SUBCUTANEOUSLY ONCE A WEEK 2 mL 10 acarbose (Precose) 100 MG tablet TAKE 1 TABLET (100 MG) BY MOUTH IN THE MORNING AND 1 TABLET (100 MG) BEFORE BEDTIME. 60 tablet 10 naproxen (Naprosyn) 500 MG tablet Take 1 tablet (500 mg) by mouth in the morning and 1 tablet (500 mg) in the evening. Take with meals. Do all this for 14 days. 28 tablet 0 orphenadrine (Norflex) 100 MG 12 hr tablet Take 1 tablet (100 mg) by mouth 2 (two) times a day as needed for muscle spasms for up to 10 days Do not crush, chew, or split. 20 tablet 0 zolpidem CR (Ambien CR) 6.25 MG ER tablet Take 1 tablet (6.25 mg) by mouth as needed at bedtime for sleep Do not crush, chew, or split. (Patient not taking: Reported on 04/09/2024) 30 tablet 2 No current facility-administered medications for this visit. Review of Systems List of current healthcare providers: Patient Care Team: Kofi Bowers MD as PCP - General (Internal Medicine) Medicare Annual Visit Over the past 2 weeks, how often have you been bothered by any of the following problems? Little interest or pleasure in doing things: Not at all Feeling down, depressed, or hopeless: Not at all Patient Health Questionnaire-2 Score: 0 Over the past 2 weeks, how often have you been bothered by any of the following problems? Trouble falling or staying asleep, or sleeping too much: Nearly every day Feeling tired or having little energy: Not at all Poor appetite or overeating: Not at all Feeling bad about yourself - or that you are a failure or have let yourself or your family down: Not at all Trouble concentrating on things, such as reading the newspaper or watching television: Not at all Moving or speaking so slowly that other people could have noticed? Or the opposite - being so fidgety or restless that you have been moving around a lot more than usual.: Not at all Thoughts that you would be better off or hurting yourself in some way: Not at all Patient Health Questionnaire-9 Score: 3 [place]ah Fall Risk History of Falling, Immediate or Within 3 Months: No Health Risk Assessment Form Do you need help eating, bathing, using the toilet, dressing, or getting around your home?: No Can you prepare your own meals?: Yes Can you do your own housework without help?: Yes Can you shop for groceries or clothes without help?: Yes Do you exercise for about 20 minutes 3 or more days a week?: No How confident are you that you can control and manage most of your health problems?: Very confident Can you mange your money, credit cards and accounts, pay bills and taxes?: No Cognitive Screening Three Word Registration: Village, Kitchen, Baby Clock Drawing: Normal Clock - 2 Three Word Recall: All 3 words correct - 3 Pain Assessment Pain Score: 7 Advance Care Planning Do you have a living will?: Yes Do you have a medical power of regulatory attorney?: Yes Who is your medical power of regulatory attorney?: her son Objective : BP 115/65 Pulse 70 Resp 16 Wt 185 lb 6.4 oz SpO2 93% BMI 36.21 kg/m No results found. Physical Exam Constitutional: General: She is not in acute distress. Appearance: Normal appearance. She is well-developed. HENT: Head: Normocephalic and atraumatic. Eyes: General: No scleral icterus. Conjunctiva/sclera: Conjunctivae normal. Cardiovascular: Rate and Rhythm: Normal rate and regular rhythm. Heart sounds: Normal heart sounds. No murmur heard. Pulmonary: Effort: Pulmonary effort is normal. No respiratory distress. Breath sounds: Normal breath sounds. No wheezing, rhonchi or rales. Skin: General: Skin is warm and dry. Neurological: General: No focal deficit present. Mental Status: She is alert and oriented to person, place, and time. Psychiatric: Mood and Affect: Mood normal. Behavior: Behavior normal. Assessment/Plan : The following health maintenance schedule was reviewed with the patient and provided in printed form in the after visit summary: Health Maintenance Topic Date Due Pneumococcal Vaccine: 65+ Years (2 of 2 - PCV) 05/15/2014 Diabetes: Retinopathy Screening 04/28/2021 Medicare Annual Wellness (AWV) 01/04/2024 Influenza Vaccine (1) 04/15/2024 Diabetes: Hemoglobin A1C 07/10/2024 Diabetes: Urine Protein Screening 01/17/2025 Advance Care Planning Patient agreed to discuss advance care planning at today's wellness visit. We discussed that an advance directive is a legal document that only goes into effect if the patient is incapacitated and unable to speak for himself or herself. This would help healthcare providers to ensure that the patient gets the care that he or she wishes to receive. The goal is to provide a patient with the best possible quality of life. Encouraged patient to obtain a living will and durable power of regulatory attorney for healthcare. We discussed telling ortiz people about their advance directives such as close family members, and requested a copy to scan into the patient's EHR. An advance directive packet was offered to the patient. Assessment/Plan Diagnoses and all orders for this visit: Routine general medical examination at health care facility ACP (advance care planning) Type 2 diabetes mellitus without complication, without long-term current use of insulin ([facility]) - POCT glycosylated hemoglobin (Hb A1C) docked device - Microalbumin / creatinine, urine ratio; Future Morbid (severe) obesity due to excess calories ([facility]) Essential (primary) hypertension ([facility]) Body mass index (BMI) 35.0-35.9, adult Peripheral vascular disease, unspecified ([facility]) Iliopsoas bursitis of right hip - naproxen (Naprosyn) 500 MG tablet; Take 1 tablet (500 mg) by mouth in the morning and 1 tablet (500 mg) in the evening. Take with meals. Do all this for 14 days. Orders Placed This Encounter Procedures Microalbumin / creatinine, urine ratio Standing Status: Future Number of Occurrences: 1 Standing Expiration Date: 04/09/2025 Order Specific Question: Print requisition? Answer: No POCT glycosylated hemoglobin (Hb A1C) docked device Follow up in about 4 months (around 08/09/2024) for DM- A1C. Electronically signed by Kofi Bowers MD on April 09, 2024 documented in this encounter [facility] 04-04-2024 Telephone encount er Note OARRS reviewed, Rx sent into patient's pharmacy. [facility] 04-04-2024 Miscellaneous Notes Formattin g of this note might be different from the original. OARRS reviewed, Rx sent into patient's pharmacy. traMADol (Ultram) 50 MG tablet [facility] [place] documented in this encounter [facility] 04-04-2024 Telephone encount er Note traMADol (Ultram) 50 MG tablet DDM [place] [facility] 09-29-2023 Telephone encount er Note OARRS reviewed, Rx sent into patient's pharmacy. [facility] 09-29-2023 Miscellaneous Notes Formattin g of this note might be different from the original. OARRS reviewed, Rx sent into patient's pharmacy. documented in this encounter [facility] 06-27-2023 Evaluation note Encounter Date Diagnosis Assessment Notes Jun, Obstructive sleep apnea (ICD-10 - G47.33) 13 Jun, 2023 Chronic insomnia (ICD-10 - F51.04) [employer] Other 05-22-2023 NotePatient is here today to discuss medication Review of Systems Musculoskeletal: Positive for arthritis and back pain. All other systems reviewed and are negative.[facility] 01-03-2023 NoteCardiovascular Medicine [facility] SUBJECTIVE Chief Complaint Patient presents with [...] BID. She will be driving down to [place] this weekend for her high school reunion. Educated her to wear compression stockings in the car, get out and ambulate often, and perform leg pumps often while sitting. Last HPI per Oscar: Ms. Mobley is a 76-year-old patient with [...] Diagnosis Closed fracture of orbital floor (blow-out) ([facility]) Epiphora Fracture of orbit ([facility]) Fracture of radial neck Obesity Hypertensive disorder Pain in elbow MANOLO (obstructive sleep apnea) Diabetes ([facility]) Polyneuropathy Vitreous floaters of both eyes Venous hypertension of lower extremity Trigger thumb, left thumb Insomnia Osteopenia Peripheral venous insufficiency Non-seasonal allergic rhinitis Mixed hyperlipidemia 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 [facility]03-02-2023 NoteCONSULTATION CONSULTATION DATE: 10/14/2022 HISTORY: This [...] unless otherwise indicated. Patient is in agreement.[facility] [id number] NoteCardiology Clinic Note Subjective Cece Mobley is [...] BUN 13, creatinine 0.84, (more content not included)...[facility]02-14-2023 NotePatient here for 1 mo follow up hypertension and medication changes. She was started on hydrochlorothiazide and losartan was increased back up to 100mg daily. She had BMP on 09/07. Review of Systems Musculoskeletal: Positive for back pain. All other systems reviewed and are negative.[facility] 08-31-2022 NotebloUnOhio Valley Hospital01-17-2023 NotePatient here for 3 mo follow [...] Systems All other systems reviewed and are negative.[facility] 08-31-2022 NoteCardiology Clinic Note Subjective Cece [...] 119, BUN 13, creatinine (more content not included)...[facility] 07-14-2022 NoteCONSULTATION CONSULTATION DATE: 07/14/2022 HISTORY [...] in three months' time unless otherwise indicated.[facility] [id number] Evaluation note* Encounter Date Diagnosis Assessment Notes [...] potential side effects were all discussed today [employer] Other 10-18-2022 NoteContinue to wear cpapUnOhio Valley Hospital10-18-2022 NoteContinue amlodipine 10 mg daily- she recently ran out of 10 mg and this morning took 5 mg tablet she had from previous script. Continue coreg 25 mg bid, lasix 40 mg daily, losartan 50 mg daily and hydralazine 50 mg po bid.[facility]10-18-2022 Note Subjective Cece Mobley is a [...] Lab Review: Assessment/Plan There were no encounter diagnoses.[facility]10-18-2022 NoteHPI: Cece Mobley is a 77 [...] 3 months with repeat BMP for renal functionUnOhio Valley Hospital09-26-2022 NoteI spoke with patient and informed her of medication changes per Veronica Gillespie CNP. RX sent to [facility] and BMP faxed to [facility]. Patient verbalized understanding. [facility]09-14-2022 NoteF/U with PCP for further managementUnOhio Valley Hospital09-14-2022 NoteHypertension remains uncontrolled, will add aldactone [...] BUN 15, CR 0.85 normal K+ 4.8 normalUnOhio Valley Hospital09-14-2022 NoteAdded in error and don't know how to get rid of itUnOhio [facility] Hospital08-25-2022 NoteCONSULTATION CONSULTATION DATE: 04/08/2022 HISTORY OF [...] in the office post procedure in May.[facility] [id number] NoteCONSULTATION CONSULTATION DATE: 02/10/2022 HISTORY OF PRESENT [...] plan of care and all questions answered. [facility] Signed and Approved by: BETZAIDA ZIMMER . 02/11/2022 13:38:00[facility]03-22-2022 NoteCONSULTATION PAIN MANAGEMENT CONSULTATION CHIEF COMPLAINT: [...] had three nerves released by Dr. Branch, food service clerk, in 2002. She states the pain has [...] would like to proceed. CC: Dr. Bowers [facility] Signed and Approved by: DR SERENITY GARCIA . 11/17/2021 11:24:00[facility] HospitalEvaluation noteNort coJuvo Other Evaluation noteNo assessment information available [facility] Work Phone: Evaluation note* Diagnosis Failed back syndrome Other unspecified back disorder documented in this encounter [facility]* Diagnosis Failed back syndrome Other unspecified back disorder documented in this encounter [facility]* Diagnosis Onset Date Resolution Status Admit Date Chronic insomnia acute June 29, 2024 11:30am MANOLO (obstructive sleep apnea) acute June 29, 2024 11:30am [facility] Work Phone: Evaluation note* Diagnosis Failed back syndrome Other unspecified back disorder Hypothyroidism, unspecified type (CMS/HCC) documented in this encounter [facility] HealthcareEvaluation note* Diagnosis Failed back syndrome Other unspecified back disorder documented in this encounter [facility] HealthcareEvaluation note* Diagnosis Routine general medical examination at health care facility- Primary Routine general medical examination at a health care facility ACP (advance care planning) Other specified counseling Type 2 diabetes mellitus without complication, without long-term current use of insulin (CMS/HCC) Morbid (severe) obesity due to excess calories (CMS/HCC) Essential (primary) hypertension (CMS/HCC) Unspecified essential hypertension Body mass index (BMI) 35.0-35.9, adult Peripheral vascular disease, unspecified (CMS/HCC) Peripheral vascular disease, unspecified Iliopsoas bursitis of right hip documented in this encounter [facility] HealthcareEvaluation note* Diagnosis Failed back syndrome Other unspecified back disorder [facility] - ReportedNort coJuvo Other History general Narrative - Reported* Type [...] Heart Attack 2012 Hospitalization History see above [employer] Other Chief Complaint and Reason for Visit Chief Complaint Sleep apnea annual f ollow up Chief Complaint Admit Date MANOLO/ANNUAL June 29, 2024 11:30am Reason for Visit Admit Date Chronic insomnia June 29, 2024 11:30am MANOLO (obstructive sleep apnea) June 152023 11:30am Advance Directives No Advanced Directives Records Found Advance Directive Response Recorded Date/ Time Advance Directives No May 25, 2017 2:32pm Summary Purpose Family History No Family History Records Found Relationship Condition Age at Onset Recorded Date/T [...] Active Abdullahi Acosta MD Attending Provider Active Rim Roller [employer]ter Relationship Specialty Start Date End Date Kofi Bowers MD [address] [place] [address] PCP - General Internal Medicine 12/22/22 Rim Roller Setter Relationship Specialty Start Date End Date Kofi Bowers MD [address] [place] [address] PCP - General Internal Medicine 12/22/22 Team Status: Inactive Member Role Status Dates Kofi Bowers II MD Primary Care Provider Active Start: June 29, 2024 End: June 29, 2024 Myra Sales APRN [facility] Attending Provider Active Start: June 29, 2024 End: June 29, 2024 Rim Roller Setter Relationship Specialty Start Date End Date Kofi Bowers MD [address] [place] [address] PCP - General Internal Medicine 12/22/22 Rim Roller Setter Relationship Specialty Start Date End Date Kofi Bowers MD [address] [place] [address] PCP - General Internal Medicine 12/22/22 Rim Roller Setter Relationship Specialty Start Date End Date Kofi Bowers MD [address] [place] [address] PCP - General Internal Medicine 12/22/22 Rim Roller Setter Relationship Specialty Start Date End Date Kofi Bowers MD [address] [place] [address] PCP - General Internal Medicine 12/22/22 Rim Roller Setter Relationship Specialty Start Date End Date Kofi Bowers MD [address] [place] [address] PCP - General Internal Medicine 12/22/22 Rim Roller Setter Relationship Specialty Start Date End Date Kofi Bowers MD [address] [place] [address] PCP - General Internal Medicine 12/22/22 Goals [...] Reason Onset Date Comments Med Refill 07/02/2024 Reason Onset Date Comments Med Refill 04/04/2024 Reason Onset Date Comments Med Refill 05/07/2024 Reason Onset Date Comments Med Refill 08/02/2024 INFORMATION SOURCE (unrecogn ized section and content) DATE CREATED AUTHOR 10/19/2022 [facility] DATE CREATED AUTHOR AUTHOR'S ORGANIZ ATION 01/27/2023 [facility] DATE CREATED AUTHOR AUTHOR'S ORGANIZ ATION 09/23/2023 [facility] DATE CREATED AUTHOR AUTHOR'S ORGANIZ ATION 03/20/2024 [facility] DATE CREATED AUTHOR AUTHOR'S ORGANIZ ATION 04/10/2024 [facility] DATE CREATED AUTHOR AUTHOR'S ORGANIZ ATION 08/09/2024 [facility] FOR RECORDS PERTAINING TO PATIENTS WHO ARE [...] BE BASED ON THE PRIMARY CLINICAL RECORDS. [facility] [employer] [facility]. provides no warranty or guarantee of the accuracy or completeness of information in this document.
[2024-08-13 06:55] VITALS: BP 166/82; PULSE 84; TEMP 36.7; O2SAT 96
[2024-08-13 06:58] LABS: Glucometer 145 mg/dL (74-106)
[2024-08-13] MEDS: 0.9 % SODIUM CHLORIDE 500 ML IV ×2 (07:05→08:57)
[2024-08-13] MEDS: CEFAZOLIN SODIUM/DEXTROSE,ISO 1 GM/50 ML PREMIX IV (07:33)
[2024-08-13] MEDS: LIDOCAINE HCL 2%-EPINEPHRINE 1:200,000 20 ML MDV 10 ML INJ (08:34)
--- NOTE | 2024-08-13 08:43 | W.PM.PROCNOT ---
Date of procedure: 08/13/24 Pre-op diagnosis: M96.1 Post-op diagnosis: same as pre-op Procedure: Procedure Performed by: Esperanza Maya M.D. 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 Procedure: Risks, Benefits, Alternatives were reviewed and informed consent was obtained in the preop holding area. All questions were answered appropriately. The patient was brought to the operating room and placed in the prone position with padding under all bony prominences. A pre-procedure time out was performed specifying pt. name, nature site and side of surgery, and allergies. Anesthesia provided appropriate sedation as the skin over the thoracic and lumbar spine were prepped and draped in the usual sterile fashion. Under fluoroscopic guidance, the needle journal entry audit clerk interspace noted above was identified as the site for epidural needle entry. The skin and subcutaneous tissues were anesthetized approximately 1 level inferior to this point with a mixture of 1% lidocaine and 0.25% bupivacaine. A 14 gauge tuohy needle was inserted to the superior aspect of the lamina just inferior to the target interspace. Then, using loss of resistance technique as well as fluoroscopic guidance, the epidural space was entered. Two [employer] Leads were then advanced under intermittent fluoroscopic guidance until the distal tip of the electrode was observed to be in position at the location noted above. After appropriate electrode placement was achieved, stimulation was tested intraoperatively with multiple lead configurations until concordant paresthesias were obtained covering the areas of the patient's pain. Intraoperative analysis and programming of the neurostimulator pulse generator was completed by the physician and the small business representative from [employer]. Next, the skin approximately 1cm superior to the needle entry point and 3cm distal to the needle entry point were anesthetized with 1% lidocaine and 0.25% bupivacaine. An incision was made along this area exposing the underlying fascia. Hemostasis was achieved. A small horizontal incision was made in the subcutaneous tissue overlying the posterior ilium after local anesthetic was infiltrated with 1% lidocaine and 0.25% bupivacaine mixture. A small pocket was made in the subcutaneous fat using blunt dissection. Hemostasis was obtained. A stimulator battery/implantable generator was then placed into the small pocket and attached to the electrodes. Testing was performed to ensure adequate connection between the electrodes and battery. After testing was completed, the two incisions were sutured with Vicryl 3-0 for deep tissue and Vicryl 4-0 for epidermis. The incisions were covered with sterile bandages. The patient was then taken to the recovery area in good condition. Anesthesia: MAC Surgeon: Esperanza Maya Pathology: none sent Condition: stable Disposition: no change
[2024-08-13 09:08] VITALS: BP 174/69; PULSE 85; TEMP 36.3; O2SAT 95
[2024-08-13 09:12] VITALS: BP 157/76; PULSE 87; O2SAT 98
[2024-08-13] MEDS: OXYCODONE HCL/ACETAMINOPHEN 5MG/325MG 1 TAB PO (09:37)
--- NOTE | 2024-08-13 11:06 | PC.NURSE ---
Patient medicated with postop pain med as ordered. She's able to get some temporary relief with repositioning, standing and walking steadily. [employer] rep completed adjustments with device and remote education completed. Pt plans to touch base by phone with them later today. She was reminded to apple picker PO antibiotic and pain med from pharmacy later today. Aware she should not take tramadol while on the post op [place].
== END 2024-08-13 10:12 | disposition home or self-care (01) ==
PROVIDERS: PCP Internal Medicine; Visit Provider Anesthesiology
DX: M96.1 Postlaminectomy syndrome, not elsewhere classified (principal); E11.9 Type 2 diabetes mellitus without complications; G47.33 Obstructive sleep apnea (adult) (pediatric); Z79.85 Long-term (current) use of injectable non-insulin antidiabetic drugs; Z79.84 Long term (current) use of oral hypoglycemic drugs; E78.5 Hyperlipidemia, unspecified; I10 Essential (primary) hypertension; Z90.49 Acquired absence of other specified parts of digestive tract; G25.81 Restless legs syndrome; G89.29 Other chronic pain; E03.9 Hypothyroidism, unspecified
CPT/HCPCS: 36415; 63650; 63685; 82948; C1820; J0690; J1885; J2250; J2405; J2704; J3010

== ENCOUNTER 2024-08-20 11:05 | Outpatient (OUT) | payer MEDICARE, SELFPAY ==
--- NOTE | 2024-08-20 11:42 | P.CN_ITS ---
Consult Note: HPI Data of Consult Patient: known to practice within the last 3 years Consult date: 08/20/24 Requesting Physician: Esperanza Maya MD Primary Care Provider: BELEN ZALDIVAR Consult Narrative Reason for consult: low back pain, left foot pain Narrative: 79yof who presents for assessment. had spinal cord stim implant placed last week, endorses 80-90% relief. primarily now just has incisional pain. uses tramadol and tylenol. denies adverse med side effects. cc:: CC: Esperanza Maya MD Review of Systems ROS Status of ROS 10 or more systems reviewed and unremark able except as noted in history and below [facility] Medical History Facial trauma (~2016) ?S09.93XA - Unspecified injury of face, initial encounter (ICD-10) Chronic insomnia ?F51.04 - Psychophysiologic insomnia (ICD-10) Low iron ?E61.1 - Iron deficiency (ICD-10) Pneumonia ?J18.9 - Pneumonia, unspecified organism (ICD-10) Restless leg ?G25.81 - Restless legs syndrome (ICD-10) GERD (gastroesophageal reflux disease) ?K21.9 - Gastro-esophageal reflux disease without esophagitis (ICD-10) Activity intolerance ?R68.89 - Other general symptoms and signs (ICD-10) Extremity edema ?R60.0 - Localized edema (ICD-10) Diabetes ?E11.9 - Type 2 diabetes mellitus without complications (ICD-10) Hypothyroidism ?E03.9 - Hypothyroidism, unspecified (ICD-10) Low back pain ?M54.50 - Low back pain, unspecified (ICD-10) Osteoarthritis ?M19.90 - Unspecified osteoarthritis, unspecified site (ICD-10) Diabetes 1.5, managed as type 2 ?E13.9 - Other specified diabetes mellitus without complications (ICD-10) Sleep apnea ?G47.30 - Sleep apnea, unspecified (ICD-10) High cholesterol ?E78.00 - Pure hypercholesterolemia, unspecified (ICD-10) Hypertension ?I10 - Essential (primary) hypertension (ICD-10) Surgical History History of facial surgery (~2016) ?Z98.890 - Other specified postprocedural states (ICD-10) History of colonoscopy ?Z98.890 - Other specified postprocedural states (ICD-10) History of radiofrequency ablation (RFA) of nerve of lumbar spine ?Z98.890 - Other specified postprocedural states (ICD-10) S/P epidural steroid injection ?Z92.241 - Personal history of systemic steroid therapy (ICD-10) Previous back surgery ?Z98.890 - Other specified postprocedural states (ICD-10) History of cholecystectomy ?Z90.49 - Acquired absence of other specified parts of digestive tract (ICD- 10) Hx of tonsillectomy ?Z90.89 - Acquired absence of other organs (ICD-10) History of appendectomy ?Z90.49 - Acquired absence of other specified parts of digestive tract (ICD- 10) Family History Other Cancer Family history of coronary artery disease Family history of diabetes mellitus Family history of heart disease Family history of hypertension Social History Within the past year, how often did you have a drink containing alcohol: never Score interpretation: A score less than 3 is consistent with normal alcohol consumption. Smoking status: Never smoker Non-prescribed substance use: denies use Highest level of school completed/degree received: Associate degree: occupational, technical, vocational program Meds Home Medications and Allergies Home Medications ?Medication ?Instructions ?Recorded ?Confirmed ?Type acarbose 100 mg tablet 100 mg PO BID 10/19/23 08/13/24 History amlodipine 10 mg tablet 10 mg PO DAILY 10/19/23 08/13/24 History aspirin 81 mg capsule 81 mg PO DAILY 10/19/23 08/13/24 History carvedilol 25 mg tablet 25 mg PO BID 10/19/23 08/13/24 History dulaglutide 4.5 mg/0.5 mL 4.5 mg subcut .weekly 10/19/23 08/13/24 History subcutaneous pen injector (Trulicity) furosemide 40 mg tablet 40 mg PO DAILY 10/19/23 08/13/24 History insulin detemir U-100 100 unit/mL 60 unit subcut DAILY 10/19/23 08/13/24 History (3 mL) subcutaneous pen (Levemir FlexPen) liothyronine 25 mcg tablet 12.5 mcg PO BID 10/19/23 08/13/24 History loratadine 10 mg tablet 10 mg PO DAILY PRN allergic 10/19/23 08/13/24 History symptoms losartan 100 1 tab PO DAILY 10/19/23 08/13/24 History mg-hydrochlorothiazide 25 mg tablet lovastatin 20 mg tablet 20 mg PO DAILY 10/19/23 08/13/24 History metformin 1,000 mg tablet 1,000 mg PO BID 10/19/23 08/13/24 History omeprazole 20 mg capsule,delayed 20 mg PO DAILY 10/19/23 08/13/24 History release potassium chloride 20 mEq 20 meq PO DAILY 10/19/23 08/13/24 History tablet,extended release quetiapine 50 mg tablet 50 mg PO DAILY 10/19/23 08/13/24 History tramadol 50 mg tablet 100 mg PO Q12H PRN pain 10/19/23 08/13/24 History acetaminophen 500 mg capsule 1,000 mg PO BID 07/18/24 08/13/24 History ascorbic acid (vitamin C) 500 mg 500 mg PO BID 07/18/24 08/13/24 History capsule calcium 600 mg (as 1 tab PO DAILY 07/18/24 08/13/24 History carbonate)-vitamin D3 5 mcg (200 unit) tablet (Calcium 600 + D(3)) cholecalciferol (vitamin D3) 125 5,000 unit PO DAILY 07/18/24 08/13/24 History mcg (5,000 unit) capsule vitamin B complex (B-Complex 1 tab PO DAILY 07/18/24 08/13/24 History tablet) vitamin E 268 mg (400 unit) capsule 268 mg PO BID 07/18/24 08/13/24 History cephalexin 500 mg capsule 500 mg PO TID 7 days #21 caps 07/23/24 08/13/24 Rx cephalexin 500 mg capsule 500 mg PO TID 7 days #21 caps 08/13/24 Rx cephalexin 500 mg capsule 500 mg PO TID 7 days #21 caps 08/13/24 Rx cyclobenzaprine 10 mg tablet See Rx Instructions .Route 08/13/24 Rx .COMPLEX #90 tabs hydrocodone 5 mg-acetaminophen 325 1 tab PO QID PRN pain #12 tabs 08/13/24 Rx mg tablet hydrocodone 5 mg-acetaminophen 325 1 tab PO QID PRN pain #12 tabs 08/13/24 Rx mg tablet Allergies Allergy/AdvReac Type Severity Reaction Status Date / Time iodine Allergy Severe Anaphylaxis Verified 08/13/24 06:57 levofloxacin (From Levaquin) Allergy Rash Verified 08/13/24 06:57 Exam Narrative Exam Narrative: Psych-alert and oriented x 3. Attentive and appropriate, constitutionally normal, displays normal mood and affect per situation.? There are no obvious deficits in memory, reasoning, or intellect.? Skin-no obvious rashes, bruising, erythema noted to the patient's area of pain. Extremities- extremities are warm with minimal edema and palpable pulses. Lumbar-no significant tenderness to palpation noted in the lumbar spine and paraspinal musculature.? Pain is elicited with extension, and lateral rotation of the lumbar spine. Range of motion is slightly diminished with these motions due to pain. Coordination remains intact.? Gait remains non-antalgic. Assessment and Plan Assessment and Plan (1) Failed back syndrome: (2) History of lumbar fusion: Plan 79yof who presents for assessment. doing well after recent stim implant. had settings adjusted today with representations from [employer]. bandages were removed today, incisions appear clean, dry, intact. intstructed patient that she may now shower. she expressed understanding. meds reviewed, no changes. follow up in 3-4 weeks.
== END 2024-08-20 11:06 | disposition home or self-care (01) ==
LOC: PM 11:06
PROVIDERS: PCP Internal Medicine; Visit Provider Anesthesiology
DX: M96.1 Postlaminectomy syndrome, not elsewhere classified (principal); M43.26 Fusion of spine, lumbar region
CPT/HCPCS: G0463

== ENCOUNTER 2024-09-10 12:39 | Outpatient (OUT) | payer MEDICARE, SELFPAY ==
--- OUTSIDE RECORDS SUMMARY | 2024-09-10 12:50 | XMS_ITS | CCD ---
Author Organization [facility] Care Team Providers Care Back Facer Name Role Phone Olamide Ching Unavailable MD Abdullahi Acosta Attending Provider MONI Bowers Primary Care Provider Abdullahi Acosta Unavailable VERNA, ANGELA Consulting Unavailable [...] Care Provider MD Abdullahi Acosta Attending Provider [phone] Abdullahi Acosta Attending Unavailable Abdullahi Acosta Admtony Unavailable Kofi Bowers Primary Care Unavailable Kofi Bowers MD Primary Care Provider [phone] KOFI BOWERS Primary Care Unavailable SHUBHAM GANN Attending Unavailable KOFI OBWERS Attending Unavailable GHAZAL GRIFFIN Attending Unavailable KOFI BOWERS Referring Unavailable KEN GALEANA Attending Unavailable KOFI BOWERS Referring Unavailable FERMINTEENAH Attending Unavailable KOFI BOWERS Referring Unavailable TATTERSGURU, KEN Attending Unavailable KOFI BOWERS Referring Unavailable TATTERSGURU, KEN Attending Unavailable KOFI BOWERS Referring Unavailable TATTERSGURU, KEN Attending Unavailable KOFI BOWERS Referring Unavailable CAMILLETERSGURU, KEN Attending Unavailable KOFI BOWERS B Referring Unavailable KERVIN, KEN Attending Unavailable KOFI BOWERS B Referring Unavailable SKYE GOODE Attending Unavailable KOFI BOWERS Attending Unavailable HEMSKYE MARTINEZ Attending Unavailable Giedraitis , Andjuju Shafer Attending Unavailable Giedraitis , Andrius Soni Attending Unavailable Giedraitis , Andrius Silviaytaltagracia Attending Unavailable Giedraitis , Andrius Soni Attending Unavailable Allergies Allergy Classification Reported Allergen(s) Allergy Type Date of Onset Reaction(s) Facility (3 sources) Gemfibrozil Drug Allergy muscle atrophy [employer] Other (20 sources) Iodine; Translations: [IODINE] Drug Allergy 11-24-19 19 anaphylaxis, Shortness of breath [facility] Repository (5 sources) levoFLOXacin; Translations: [Levaquin] Drug Allergy 11-17-19 16 tendonopathy [facility] Repository (20 sources) levoFLOXacin; Translations: [LEVOFLOXACIN] Drug Allergy 06-15-20 18 Other [facility] (1 source) Iodine and Iodide Containing Produc Allergy to substance 06-13-20 18 Unknown Reaction [facility] (2 sources) hydrALAZINE Drug Allergy 11-18-19 16 [facility] Repository (1 source) Iodine Drug Allergy 07-31-20 15 [facility] Repository (15 sources) pregabalin; Translations: [PREGABALIN] Drug Allergy 02-25-20 21 Dizziness [facility] Repository (1 source) SHELLFISH CONTAINING PRODUCTS; Translations: [SHELLFISH CONTAINING PRODUCTS] Propensity to adverse reactions to drug (disorder) 01-25-20 14 [facility] Repository (3 sources) Iodinated Contrast Media; Translations: [Iodinated Contrast Media] Allergy to substance 08-19-19 23 Unknown Reaction [facility] (2 sources) Gemfibrozil Drug Allergy 06-27-20 23 muscle atrophy [facility] Repository (1 source) Iodine Drug Allergy 06-27-20 23 [facility] Repository (14 sources) Shellfish Allergy to substance 01-25-20 14 Swelling [facility] Work Phone: Medications Current Medications Medication Drug Class(es) Dates Sig (Normalized) Sig (Original) acarbose 100 mg oral tablet (20 sources) alpha-Glucosidas e Inhibitor Start: 01-18-2024 take [...] 11:00pm acetaminophen 500 mg oral ta blet (17 sources) acetaminophen (T ylenol) 500 MG tablet [...] Jun, Active amLODIPine 10 mg oral tablet (20 sources) Dihydropyridine Calcium Channel Theodora Start: 07-23-2024 [...] Active ascorbic acid 100 mg/ml oral solution (14 sources) Vitamin C Ascorbic Acid (Vitamin C) 500 MG/5ML liquid 1 capsule 1 (one) time each day at the same time. Active aspirin 81 mg delayed release oral tablet (17 sources) Platelet Aggregation Inhibitor, Nonsteroidal Anti-inflammatory Drug [...] mg / cholecalciferol 100 unt oral tablet (14 sources) Vitamin D take 1 tablet by [...] Active cetirizine hydrochloride 10 mg oral tablet (13 sources) Histamine-1 Receptor Antagonist End: 08-28-2024 cetirizine (ZyrTEC) 10 MG tablet 1 (one) time each day at the same time. 08/28/2024 Discontinued (Other) cholecalciferol 1.25 mg oral tablet (14 sources) Vitamin D cholecalciferol (Vitamin D-3) 1.25 MG (74700 UT) tablet Vitamin D3 5000IU Active cholecalciferol (Vitamin D-3) 1.25 MG (34553 UT) tablet Vitamin D3 5000IU 0 Active [...] 2018 11:00pm furosemide 40 mg oral tablet (20 sources) Loop Diuretic Start: 06-13-2018 take 1 [...] / losartan potassium 100 mg oral tablet (14 sources) Thiazide Diuretic, Angiotensin 2 Receptor Theodora [...] ml insulin detemir 100 unt/ml pen injector (17 sources) Insulin Analog Start: 06-13-2018 Insulin Detemi r U-100 100 unit/mL (3 mL) insulin pen Active 0 .ROUTE .COMPLEX June 12, 2018 11:00pm as directed insulin detemir (Levemir FlexTouch) 100 UNIT/ML pen INJECT 60 UNITS SUBCUTANEOUSLY EACH MORNING for 25 Active liothyronine sodium 0.025 mg oral tablet (20 sources) l-Triiodothyronine Start: 04-26-2023 End: 07-02-2024 take 0.5 tablet by mouth twice daily liothyronine (Cytomel) 25 MCG tablet Indications: Hypothyroidism, unspecified type (CMS/HCC) 0.5 tablet on an empty stomach Orally two times daily. D.A.W. as Sigma or MasterImage 3D Brand ONLY for 90 days 200 tablet 3 07/02/2024 Active Start: 06-13-2018 take 1 tablet by javi th once daily Liothyronine 25 mcg tablet Active 0.5 TAB PO Daily June 12, 2018 11:00pm Liothyronine Sod ium 25 MCG as directed Orally bid Active loratadine 10 mg oral tablet (20 sources) Start: 03-20-2024 take 1 tablet by [...] 2018 11:00pm lovastatin 20 mg oral tablet (20 sources) HMG-CoA Reductase Inhibitor Start: 08-16-2024 take 1 tablet by mouth once daily lovastatin (Mevacor) 20 MG tablet Indications: Congenital renal artery anomaly TAKE 1 TABLET BY MOUTH ONCE DAILY 100 tablet 3 08/16/2024 Active Start: 06-13-2018 take 1 tablet by javi once daily lovastatin (Mevacor) 20 MG tablet [...] Active metFORMIN hydrochloride 1000 mg oral tablet (20 sources) Biguanide Start: 06-13-2018 take 1 tablet by mouth in the morning metFORMIN (Glucophage) 1000 MG tablet Indications: 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 TAKE WITH MEALS. 60 tablet 10 01/18/2024 Active 24 hr metoprolol succinate 50 mg extended release oral tablet (9 sources) beta-Adrenergic Theodora Start: 06-13-2018 take 1 tablet by mouth twice daily Metoprolol Succinate 50 mg tablet extended release 24 hr Active 1 TAB PO Twice daily June 12, 2018 11:00pm take 2 tablets by [facility] every twenty-four hours Toprol XL 50 [...] omeprazole 20 mg delayed release oral capsule (20 sources) Proton Pump Inhibitor Start: 06-13-2018 take 1 capsule by mouth in the morning omeprazole (PriLOSEC) [address] capsule Indications: Gastroesophageal reflux disease without esophagitis TAKE 1 CAPSULE (20 MG) BY MOUTH IN THE MORNING. 30 capsule 10 01/18/2024 Active 12 hr orphenadrine citrate 100 mg extended release oral tablet (13 sources) Muscle Relaxant Start: 10-27-2023 take 1 [...] chloride 20 meq extended release oral tablet (20 sources) Start: 06-13-2018 Potassium Chloride 20 mEq [...] 2018 11:00pm QUEtiapine 50 mg oral tablet (20 sources) Atypical Antipsychotic Start: 06-13-2018 take 1 tablet by mouth once daily QUEtiapine (SEROquel) 50 MG tablet Indications: Insomnia, unspecified type TAKE 1 TABLET BY MOUTH ONCE DAILY 30 tablet 10 10/20/2023 Active rOPINIRole 2 mg oral tablet (12 sources) Nonergot Dopamine Agonist Start: 01-18-2024 End: 08-28-2024 take 0.5 tablet by mouth at bedtime rOPINIRole (Requip) 2 MG tablet Indications: Restless Leg Syndrome Take 0.5 tablets (1 mg) by mouth at bedtime 30 tablet 2 01/18/2024 08/28/2024 Discontinued (Other) traMADol hydrochloride 50 mg oral tablet (20 sources) Opioid Agonist Start: 03-05-2024 End: 10-04-2024 take 1 tablet by mouth every six hours for pain traMADol (Ultram) 50 MG tablet Indications: Failed back syndrome Take 1 tablet (50 mg) by mouth every 6 (six) hours if needed for severe pain 120 tablet 09/04/2024 10/04/2024 Active Start: 09-29-2023 take 1 tablet by [...] day Active Trulicity 4.5 MG/0.5ML solut ion auto-injector (4 sources) Start: 08-23-2024 Trulicity 4.5 MG/0.5ML solution auto-injector Indications: 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 Active Vitamin E 400 UNIT (3 sources) take 1 capsule by mo uth once daily Vitamin E 400 UNIT 1 capsule Orally Once a day Active zolpidem tartrate 6.25 mg extended release oral tablet (13 sources) gamma-Aminobutyric Acid-ergic Agonist Start: 11-18-2023 End: 08-28-2024 zolpidem CR (Ambien CR) 6.25 MG ER tablet Indications: Primary insomnia Take 1 tablet (6.25 mg) by mouth as needed at bedtime for sleep Do not crush, chew, or split. 30 tablet 2 11/18/2023 08/28/2024 Discontinued (Other) Start: 08-04-2023 zolpidem CR (A mbien CR) [...] te Episodic/Chronic Cardiac and circulatory congenital anomalies (14 sources) Congenital anomaly of renal blood vessel; 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] Onset: 11-25-2015 12-14-2022 Chronic Diabetes mellitus with complications (20 sources) Disorder of nervous system due to type 2 diabetes mellitus; Translations: [Type 2 diabetes mellitus with other diabetic neurological complication] Onset: 08-15-2014 12-14-2022 Chronic Diabetes mellitus without complication (17 sources) Type 2 diabetes mellitus without complications; Translations: [Diabetes mellitus] Onset: 01-24-2014 03-11-2023 Chronic Disorders of lipid metabolism (15 sources) Hyperlipidemia, unspecified; Translations: [Mixed hyperlipidemia] Onset: 01-07-2022 12-14-2022 Chronic Esophageal disorders (15 sources) Gastro-esophageal reflux disease without esophagitis; Translations: [Gastroesophageal reflux disease] Onset: 01-07-2022 12-14-2022 Chronic Essential hypertension (20 sources) Essential (primary) hypertension; Translations: [Benign essential hypertension] Onset: 01-07-2022 Chronic Malaise and fatigue (14 sources) Fatigue; Translations: [Chronic fatigue, unspecified] Onset: 12-14-2022 12-14-2022 Chronic Menopausal disorders (18 sources) Other primary ovarian failure; Translations: [Decreased estrogen level] Onset: 01-04-2022 Chronic Miscellaneous mental health disorders (6 sources) Chronic insomnia; Translations: [Psychophysiologic insomnia] Chronic Other diseases of veins and lymphatics (14 sources) Venous hypertension of lower limb; Translations: [Chronic venous hypertension (idiopathic) without complications of unspecified lower extremity] Onset: 12-21-2022 12-21-2022 Chronic Other eye disorders (14 sources) Bilateral vitreous floaters; Translations: [Other vitreous opacities, bilateral] Onset: 12-14-2022 12-14-2022 Chronic Other hereditary and degenerative nervous system conditions (1 source) Restless legs syndrome; Translations: [RESTLESS LEGS SYNDROME] Onset: 11-06-2021 Chronic Other hereditary and degenerative nervous system conditions (13 sources) Restless legs; Translations: [Restless legs syndrome] Onset: 01-18-2024 01-18-2024 Chronic Other lower respiratory disease (3 sources) Disorder of lung; Translations: [Other disorders of lung] Episodic Other nervous system disorders (1 source) Polyneuropathy, unspecified; Translations: [POLYNEUROPATHY UNSPECIFIED] Onset: 04-14-2022 Chronic Other nervous system disorders (14 sources) Chronic pain syndrome; Translations: [Chronic pain syndrome] Onset: 12-14-2022 12-14-2022 Chronic Other nervous system disorders (14 sources) Difficulty walking; Translations: [Difficulty in walking, not elsewhere classified] Onset: 12-14-2022 12-14-2022 Chronic Other nervous system disorders (14 sources) Polyneuropathy; Translations: [Polyneuropathy, unspecified] Onset: 01-24-2014 03-11-2023 Chronic Other nutritional; endocrine; and metabolic disorders (6 sources) Obese class II; Translations: [Body mass index (BMI) 35.0-35.9, adult] Chronic Other nutritional; endocrine; and metabolic disorders (1 source) Body mass index (BMI) 35.0-35.9, adult Onset: 07-02-2021 Resolved: 07-02-2021 Chronic Other nutritional; endocrine; and metabolic disorders (18 sources) Body mass index 30+ - obesity; Translations: [Obesity, unspecified] Onset: 04-21-2020 03-11-2023 Chronic Other nutritional; endocrine; and metabolic disorders (14 sources) Lipoprotein deficiency disorder; Translations: [Lipoprotein deficiency] Onset: 05-01-2018 03-11-2023 Chronic Other nutritional; endocrine; and metabolic disorders (7 sources) Obesity caused by energy imbalance; Translations: [Morbid (severe) obesity due to excess calories] Onset: 08-28-2024 04-09-2024 Chronic Other upper respiratory disease (14 sources) Allergic rhinitis; Translations: [Other allergic rhinitis] Onset: 12-14-2022 12-14-2022 Chronic Peripheral and visceral atherosclerosis (16 sources) Peripheral vascular disease; Translations: [Peripheral vascular disease, unspecified] Onset: 12-14-2022 12-14-2022 Chronic Residual codes; unclassified (18 sources) Obstructive sleep apnea syndrome; Translations: [Obstructive sleep apnea (adult) (pediatric)] Onset: 04-11-2019 03-11-2023 Chronic Residual codes; unclassified (6 sources) Obstructive sleep apnea (adult) (pediatric); Translations: [Obstructive sleep apnea (adult)(pediatric)] Onset: 07-02-2021 Resolved: 07-02-2021 Chronic Residual codes; unclassified (1 source) Obstructive sleep apnea (adult)(pediatric); Translations: [Obstructive sleep apnea (adult) (pediatric)] Onset: 06-27-2023 Chronic Residual codes; unclassified (14 sources) 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 airway pressure ventilation; Translations: [Dependence on other enabling machines and devices] Onset: 12-14-2022 12-14-2022 Chronic Residual codes; unclassified (14 sources) Initial insomnia; Translations: [Other insomnia] Onset: [...] counseling] 04-09-2024 Episodic Blindness and vision defects (14 sources) Diplopia; Translations: [Diplopia] Onset: 03-11-2023 03-11-2023 Episodic Conditions associated with dizziness or vertigo (13 sources) Vertigo; Translations: [Dizziness and giddiness] Onset: 10-27-2023 10-27-2023 Episodic E Codes: Fall (1 source) Unspecified fall, initial encounter; Translations: [UNSPECIFIED FALL INITIAL ENCOUNTER] Onset: 01-07-2022 Episodic Fracture of upper limb (14 sources) Fracture of radial neck; Translations: [Displaced fracture of neck of unspecified radius, initial encounter for closed fracture] Onset: 03-11-2023 03-11-2023 Episodic Mood disorders (11 sources) Mood disorders Onset: 04-09-2024 04-09-2024 Other aftercare (1 source) intermediate (current) use of insulin; Translations: [[facility] CURRENT USE OF INSULIN] Onset: 01-27-2022 Episodic Other aftercare (1 source) intermediate (current) use of aspirin; Translations: [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 OF 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] Onset: 01-07-2022 Episodic Other aftercare (1 source) continuous churn buttermaker (current) use of oral hypoglycemic drugs; Translations: [[facility] USE ORAL HYPOGLYCEMIC DX] Onset: 01-07-2022 Episodic Other aftercare (1 source) Other prison (current) drug therapy; Translations: [OTH BLANCHING MACHINE OPERATOR CURRENT DRUG THERAPY] Onset: 01-07-2022 Episodic Other aftercare (14 sources) Long-term current use of insulin; Translations: [continuous churn buttermaker (current) use of insulin] Onset: 01-28-2016 03-11-2023 Episodic Other and unspecified benign neoplasm (14 sources) Adenomatous polyp of colon ; Translations: [Benign neoplasm of ascending colon] Onset: 12-14-2022 12-14-2022 Episodic Other and unspecified benign neoplasm (14 sources) History of polyp of colon; Translations: [Personal history of colonic polyps] Onset: 06-01-2018 03-11-2023 Episodic Other and unspecified benign neoplasm (14 sources) Benign neoplasm of colon; Translations: [Benign neoplasm of colon, unspecified] Onset: 06-27-2018 03-11-2023 Episodic Other bone disease and musculoskeletal deformities (14 sources) Osteopenia; Translations: [Other specified disorders of bone density and structure, unspecified site] Onset: 12-14-2022 12-14-2022 Episodic Other connective tissue disease (1 source) Arthrodesis status; Translations: [ARTHRODESIS STATUS] Onset: 01-27-2022 Episodic Other connective tissue disease (14 sources) Trigger thumb of left hand; Translations: [Trigger thumb, left thumb] Onset: 12-14-2022 12-14-2022 Episodic Other connective tissue disease (14 sources) Acquired trigger finger; Translations: [Trigger finger, unspecified finger] Onset: 01-15-2021 03-11-2023 Episodic Other connective tissue disease (2 sources) Iliopsoas bursitis of right hip; Translations: [Other bursitis of hip, right hip] 04-09-2024 Episodic Other diseases of veins and lymphatics (14 sources) Peripheral venous insufficiency; Translations: [Venous insufficiency (chronic) (peripheral)] Onset: 12-14-2022 12-14-2022 Episodic Other eye disorders (14 sources) Lower eyelid ectropion; Translations: [Unspecified ectropion of unspecified eye, unspecified eyelid] Onset: 07-28-2023 07-28-2023 Episodic Other eye disorders (14 sources) Epiphora; Translations: [Unspecified epiphora, unspecified side] Onset: 04-08-2022 03-11-2023 Episodic Other injuries and conditions due to external causes (14 sources) History of fall; Translations: [History of falling] Onset: 10-02-2015 03-11-2023 Episodic Other non-traumatic joint disorders (14 sources) Pain in elbow; Translations: [Pain in unspecified elbow] Onset: 03-11-2023 03-11-2023 Episodic Other nutritional; endocrine; and metabolic disorders (14 sources) Cholesterol level - finding; Translations: [Lipoprotein deficiency] Onset: 12-14-2022 Resolved: 12-14-2022 12-14-2022 Chronic Residual codes; unclassified (1 source) Insomnia, unspecified; Translations: [INSOMNIA UNSPECIFIED] Onset: 07-17-2022 Episodic Residual codes; unclassified (2 sources) Localized edema; Translations: [Localized edema] Onset: 09-28-2022 Episodic Residual codes; unclassified (14 sources) Insomnia; Translations: [Insomnia, unspecified] Onset: 06-10-2015 03-11-2023 Episodic Residual codes; unclassified (14 sources) Family history of malignant neoplasm of gastrointestinal tract; Translations: [Family history of malignant neoplasm of digestive organs] Onset: 06-01-2018 03-11-2023 Episodic Screening and history of mental health and substance abuse codes (14 sources) Ex-smoker; Translations: [Personal history of nicotine dependence] Onset: 10-22-2015 03-11-2023 Episodic Skull and face fractures (20 sources) Closed fracture of orbital floor (blow-out); Translations: [Fracture of orbital floor, unspecified side, initial encounter for closed fracture] Onset: 03-11-2023 03-11-2023 Episodic Thyroid disorders (14 sources) Sick-euthyroid syndrome; Translations: [Sick-euthyroid syndrome] Onset: 12-14-2022 12-14-2022 Episodic Unclassified (1 source) LOW BACK PAIN, UNSPECIFIED; Translations: [LOW BACK PAIN, UNSPECIFIED] Onset: 10-30-2021 Results Test Name Value Interpretation Reference Range Facility Laboratory - Hematology and Cell countson 08-28-2024 HbA1c (Bld) [Mass fraction] 6.4 % [facility] No Panel Informationon 08-28 Interpretation and review of laboratory results [facility] BASIC METABOLIC PANELon 07-18-2024 Anion gap [Moles/Vol] 11.6 mmol/L [facility] Calcium [Mass/Vol] 9 mg/dL 8.5 - 10. 1 mg/dL [facility] Chloride [Moles/Vol] 106 mmol/L 98 - 10 7 mmol/L [facility] CO2 [Moles/Vol] 30.2 mmol/L 21.0 - 32.0 mmol/L [facility] Creatinine [Mass/Vol] 0.99 mg/dL 0.55 - 1.02 mg/dL [facility] GFR/1.73 sq M.predicted CKD-EPI (S/P/Bld) [Vol rate/Area] >60 >=60 mL/min/1.73m 2 [facility] Glucose [Mass/Vol] 132 mg/dL High 74 - 106 mg/dL [facility] Interpretation and review of laboratory results Abnormal [facility] Potassium [Moles/Vol] 3.8 mmol/L 3.5 - 5.1 mmol/L [facility] Sodium [Moles/Vol] 144 mmol/L 136 - 145 mmol/L [facility] TBH EGFR-NON AF LAO 54 Low >=60 mL/min/1.73m 2 [facility] Urea nitrogen [Mass/Vol] 15 mg/dL 7.0 - 18.0 mg/dL [facility] Urea nitrogen/Creatinine [Mass ratio] 15.2 mg/mg [facility] HbA1c (Bld) [Mass fraction]o n 04-09-2024 [facility] e Laboratory - Hematology and Cell countson 04-09-2024 HbA1c (Bld) [Mass fraction] 7.0 % [facility] 36on 01-26-2023 36 Follow-up in 3 months as planned. Thanks [facility] Office Visiton 01-03-2023 Follow-up visit [id number] Cece Mobley 1945 F Date Provider Department Center 01/03/2023 URI STERN [facility] Family History Problem Relation Age of Onset Diabetes Father Heart disease Father Coronary artery disease Father Coronary artery disease Brother Family Status - Relation Status Age at Father Brother Level of Service:29768 [place] OFFICE/OUTPATIENT ESTABLISHED LOW MDM 20-29 MIN Reason for Visit and Comments: Medication Problem [65] Normal [facility] Office Visiton 09-28-2022 Follow-up visit [id number] Cece Mobley 1945 F Date Provider Department Center 09/28/2022 [id number] Family History Problem Relation Age of Onset Diabetes Father Heart disease Father Coronary artery disease Father Coronary artery disease Brother Family Status - Relation Status Age at Father Brother Level of Service:58916 [place] OFFICE/OUTPATIENT ESTABLISHED LOW MDM 20-29 MIN Reason for Visit and Comments: Hypertension [[id number]] Normal [facility] PROF CHEM 8 (BAS METB)on Anion gap [Moles/Vol] 11.6 mmol/L Normal [facility] Comment on above: Performed By: #### B MP #### [facility] [address] [address] [address] Rose Chadwick Calcium [Mass/Vol] 9.4 mg/dL Normal 8.5-10.1 [facility] Comment on above: Performed By: #### B MP #### [facility] [address] [address] [address] Rose Chadwick Chloride [Moles/Vol] 101 mmol/L Normal 98-107 [facility] Comment on above: Performed By: #### B MP #### [facility] [address] [address] [address] Rose Chadwick CO2 [Moles/Vol] 32.6 mmol/L Critically high 21.0-32.0 [facility] Comment on above: Performed By: #### B MP #### [facility] [address] [address] [address] Rose Chadwick Creatinine [Mass/Vol] 0.86 mg/dL Normal 0.55-1.02 [facility] Comment on above: Performed By: #### B MP #### [facility] [address] [address] [address] Rose Chadwick EGFR-AF LAO >60 Normal >=60 [facility] Comment on above: Performed By: #### B MP #### [facility] [address] [address] [address] Rose Chadwick EGFR-NON AF LAO >60 Normal >=60 [facility] Comment on above: Performed By: #### B MP #### [facility] [address] [place], [place] [address] Dr. Rose Chadwick Glucose [Mass/Vol] 108 mg/dL Critically high 74-106 [facility] Comment on above: Performed By: #### B MP #### [facility] [address] [address] [address] Rose Chadwick Potassium [Moles/Vol] 4.2 mmol/L Normal 3.5-5.1 [facility] Comment on above: Performed By: #### B MP #### [facility] [address] [address] [address] Rose Chadwick Sodium [Moles/Vol] 141 mmol/L Normal 136-145 [facility] Comment on above: Performed By: #### B MP #### [facility] [address] [address] [address] Rose Chadwick Urea nitrogen [Mass/Vol] 15.0 mg/dL Normal 7.0-18.0 [facility] Comment on above: Performed By: #### B MP #### [facility] [address] [address] [address] Rose Chadwick Urea nitrogen/Creatinine [Mass ratio] 17.4 mg/mg Normal [facility] Comment on above: Performed By: #### B MP #### [facility] [id number] Rose Chadwick 37on 08-31-2022 37 -Obtain an arm BP monitor, Omron brand is preferred -Check blood pressure at least once daily 2-3 hours after taking medications - Stop taking Losartan -Start taking Losartan-hydrochloro thiazide -Check labs in 1 week Normal [facility] Office Visiton 08-31-2022 Follow-up visit [id number] Cece Mobley 1945 F Date Provider Department Center 08/31/2022 [id number] Family History Problem Relation Age of Onset Diabetes Father Heart disease Father Coronary artery disease Father Coronary artery disease Brother Family Status - Relation Status Age at Father Brother Level of Service:78329 [place] OFFICE/OUTPATIENT ESTABLISHED LOW MDM 20-29 MIN Reason for Visit and Comments: Hypertension [676483] Normal [facility] PROF CHEM 8 (BAS METB)on Anion gap [Moles/Vol] 11.9 mmol/L Normal [facility] Comment on above: Performed By: #### B MP #### [facility] [address] [address] [address] Rose Chadwick Calcium [Mass/Vol] 9.0 mg/dL Normal 8.5-10.1 [facility] Comment on above: Performed By: #### B MP #### [facility] [address] [address] [address] Rose Chadwick Chloride [Moles/Vol] 103 mmol/L Normal 98-107 [facility] Comment on above: Performed By: #### B MP #### [facility] [address] [address] [address] Rose Chadwick CO2 [Moles/Vol] 30.3 mmol/L Normal 21.0-32.0 [facility] Comment on above: Performed By: #### B MP #### [facility] [address] [address] [address] Rose Chadwick Creatinine [Mass/Vol] 0.84 mg/dL Normal 0.55-1.02 [facility] Comment on above: Performed By: #### B MP #### [facility] [address] [address] [address] Rose Chadwick EGFR-AF LAO >60 Normal >=60 [facility] Comment on above: Performed By: #### B MP #### [facility] [address] [address] [address] Rose Chadwick EGFR-NON AF LAO >60 Normal >=60 [facility] Comment on above: Performed By: #### B MP #### [facility] [address] [address] [address] Rose Chadwick Glucose [Mass/Vol] 119 mg/dL Critically high 74-106 [facility] Comment on above: Performed By: #### B MP #### [facility] [address] [address] [address] Rose Chadwick Potassium [Moles/Vol] 4.2 mmol/L Normal 3.5-5.1 [facility] Comment on above: Performed By: #### B MP #### [facility] [address] [address] [address] Rose Chadwick Sodium [Moles/Vol] 141 mmol/L Normal 136-145 [facility] Comment on above: Performed By: #### B MP #### [facility] [address] [address] [address] Rose Chadwick Urea nitrogen [Mass/Vol] 13.0 mg/dL Normal 7.0-18.0 [facility] Comment on above: Performed By: #### B MP #### [facility] [address] [address] [address] Rose Chadwick Urea nitrogen/Creatinine [Mass ratio] 15.5 mg/mg Normal [facility] Comment on above: Performed By: #### B MP #### [facility] [address] [address] [address] Rose Chadwick Follow-Upon 06-01-2022 Follow-Up [id number] Cece Mobley 1945 F Date Provider Department Center 06/01/2022 [facility] Family History Problem Relation Age of Onset Diabetes Father Heart disease Father Coronary artery disease Father Coronary artery disease Brother Family Status - Relation Status Age at Father Brother Level of Service:05386 [place] OFFICE/OUTPATIENT ESTABLISHED LOW MDM 20-29 MIN Reason for Visit and Comments: Hypertension [467226] Normal [facility] PROF CHEM 8 (BAS METB)on Anion gap [Moles/Vol] 11.1 mmol/L Normal [facility] Comment on above: Performed By: #### B MP #### [facility] [address] [address] [address] Rose Chadwick Calcium [Mass/Vol] 9.0 mg/dL Normal 8.5-10.1 [facility] Comment on above: Performed By: #### B MP #### [facility] [address] [address] [address] Rose Chadwick Chloride [Moles/Vol] 103 mmol/L Normal 98-107 [facility] Comment on above: Performed By: #### B MP #### [facility] [address] [address] [address] Rose Chadwick CO2 [Moles/Vol] 29.6 mmol/L Normal 21.0-32.0 [facility] Comment on above: Performed By: #### B MP #### [facility] [address] [address] [address] Rose Chadwick Creatinine [Mass/Vol] 1.22 mg/dL Critically high 0.55-1.02 [facility] Comment on above: Performed By: #### B MP #### [facility] [address] [address] [address] Rose Chadwick EGFR-AF LAO 52 mL/min/1.73m2 Critically low >=60 [facility] Comment on above: Performed By: #### B MP #### [facility] [address] [address] [address] Rose Chadwick EGFR-NON AF LAO 43 mL/min/1.73m2 Critically low >=60 [facility] Comment on above: Performed By: #### B MP #### [facility] [address] [address] [address] Rose Chadwick Glucose [Mass/Vol] 112 mg/dL Critically high 74-106 [facility] Comment on above: Performed By: #### B MP #### [facility] [address] [address] [address] Rose Chadwick Potassium [Moles/Vol] 4.7 mmol/L Normal 3.5-5.1 [facility] Comment on above: Performed By: #### B MP #### [facility] [address] [address] [address] Rose Chadwick Sodium [Moles/Vol] 139 mmol/L Normal 136-145 [facility] Comment on above: Performed By: #### B MP #### [facility] [address] [address] [address] Rose Chadwick Urea nitrogen [Mass/Vol] 23.0 mg/dL Critically high 7.0-18.0 [facility] Comment on above: Performed By: #### B MP #### [facility] [address] [address] [address] Rose Chadwick Urea nitrogen/Creatinine [Mass ratio] 18.9 mg/mg Normal [facility] Comment on above: Performed By: #### B MP #### [facility] [address] [address] [address] Rose Chadwick 30on 05-10-2022 30 Recent [...] message. Angela Gillespie NP Division of Cardiology, [facility]- [phone] Pager- [phone] Email- [email or web address] Normal [facility] Documentationon 05-10-2022 Documentation [id number] Cece Mobley 1945 F Date Provider Department Center 05/10/2022 120-ANGELA GILLESPIE CARD [facility]. Family History Problem Relation Age of Onset [...] med changes on voice mail message. Normal [facility] Orders Onlyon 05-10-2022 Orders Only [id number] Cece Mobley 1945 F Date Provider Department Center 05/10/2022 CA AMANDA [facility] Family History Problem Relation Age of Onset Diabetes Father Heart disease Father Coronary artery disease Father Coronary artery disease Brother Family Status - Relation Status Age at Father Brother Normal [facility] PROF CHEM 8 (BAS METB)on Anion gap [Moles/Vol] 13.4 mmol/L Normal [facility] Comment on above: Performed By: #### B MP ####[facility] [address] [address]Dr. Rose Chadwick Calcium [Mass/Vol] 9.1 mg/dL Normal 8.5-10.1 [facility] Comment on above: Performed By: #### B MP ####[facility] [address] [address]Dr. Rose Chadwick Chloride [Moles/Vol] 103 mmol/L Normal 98-107 [facility] Comment on above: Performed By: #### B MP ####[facility] [address] [address]Dr. Rose Chadwick CO2 [Moles/Vol] 28.3 mmol/L Normal 21.0-32.0 [facility] Comment on above: Performed By: #### B MP ####[facility] [address] [address]Dr. Rose Chadwick Creatinine [Mass/Vol] 1.42 mg/dL Critically high 0.55-1.02 [facility] Comment on above: Performed By: #### B MP ####[facility] [address] [address]Dr. Rose Chadwick EGFR-AF LAO 43 mL/min/1.73m2 Critically low >=60 [facility] Comment on above: Performed By: #### B MP ####[facility] [address] [id number]. Rose Chadwick EGFR-NON AF LAO 36 mL/min/1.73m2 Critically low >=60 [facility] Comment on above: Performed By: #### B MP ####[facility] [address] [id number]. Rose Chadwick Glucose [Mass/Vol] 125 mg/dL Critically high 74-106 [facility] Comment on above: Performed By: #### B MP ####[facility] [address] [id number]. Rose Chadwick Potassium [Moles/Vol] 5.7 mmol/L Critically high 3.5-5.1 [facility] Comment on above: Performed By: #### B MP ####[facility] [address] [address]Dr. Rose Chadwick Sodium [Moles/Vol] 139 mmol/L Normal 136-145 [facility] Comment on above: Performed By: #### B MP ####[facility] [address] [id number]. Rose Chadwick Urea nitrogen [Mass/Vol] 28.0 mg/dL Critically high 7.0-18.0 [facility] Comment on above: Performed By: #### B MP ####[facility] [address] [id number]. Rose Chadwick Urea nitrogen/Creatinine [Mass ratio] 19.7 mg/mg Normal [facility] Comment on above: Performed By: #### B MP ####[facility] [address] [id number]. Rose Chadwick Office Visiton 04-28-2022 Follow-up visit [id number] Cece Mobley 1945 F Date Provider Department Center 04/28/2022 ANGELA CAMERON [facility] Family History Problem Relation Age of Onset Diabetes Father Heart disease Father Coronary artery disease Father Coronary artery disease Brother Family Status - Relation Status Age at Father Brother Level of Service:58908 [place] OFFICE/OUTPATIENT ESTABLISHED MOD MDM 30-39 MIN Reason for Visit and Comments: Hypertension [150406] - Patient here for 3 mo follow up hypertension. Denies chest pain and SOB. Normal [facility] Abstracton 04-16-2022 Abstract [id number] Cece Mobley 1945 F Date Provider Department Center 04/16/2022 CA AMANDA [facility] Family History Problem Relation Age of Onset Diabetes Father Heart disease Father Coronary artery disease Father Coronary artery disease Brother Family Status - Relation Status Age at Father Brother Normal [facility] POINT OF CARE GLUCOSEon 01-13 Glucose [Mass/Vol] 120 mg/dL Critically high 74-106 [facility] Comment on above: Performed By: #### P OCGLUC #### [facility] [address] [address] [address] PELVIS WO CONon [...] by: JOE MUKHERJEE Date: 2022-01-06 12:14 Normal [facility] XR DEXA BONE DENSITYon 01-04 XR [...] by: JOE MUKHERJEE Date: 2022-01-04 11:51 Normal [facility] CT LSPINE WO CONon CT LSPINE WO CON EXAMINATION: CT LSPINE [...] JOE MUKHERJEE Date: 2021-11-30 16:48 Normal [facility] PROF CHEM 8 (BAS METB)on Anion gap [Moles/Vol] 13.3 mmol/L Normal [facility] Comment on above: Performed By: #### B MP ####[facility] [address] [address]Dr. Rose Chadwick Calcium [Mass/Vol] 8.8 mg/dL Normal 8.5-10.1 [facility] Comment on above: Performed By: #### B MP ####[facility] [address] [place], [place] [address]Dr. Rose Chadwick Chloride [Moles/Vol] 101 mmol/L Normal 98-107 [facility] Comment on above: Performed By: #### B MP ####[facility] [address] [place], [place] [address]Dr. Rose Chadwick CO2 [Moles/Vol] 29.5 mmol/L Normal 22.0-30.0 [facility] Comment on above: Performed By: #### B MP ####[facility] [address] [address]Dr. Rose Chadwick Creatinine [Mass/Vol] 0.85 mg/dL Normal 0.52-1.04 [facility] Comment on above: Performed By: #### B MP ####[facility] [address] [address]Dr. Rose Chadwick EGFR-AF LAO >60 Normal >=60 [facility] Comment on above: Performed By: #### B MP ####[facility] [address] [place], [place] [address]Dr. Rose Chadwick EGFR-NON AF LAO >60 Normal >=60 [facility] Comment on above: Performed By: #### B MP ####[facility] [address] [id number]. Rose Chadwick Glucose [Mass/Vol] 116 mg/dL Critically high 74-106 [facility] Comment on above: Performed By: #### B MP ####[facility] [address] [id number]. Rose Chadwick Potassium [Moles/Vol] 4.8 mmol/L Normal 3.4-5.0 [facility] Comment on above: Performed By: #### B MP ####[facility] [address] [place], [place] [address]Dr. Rose Chadwick Sodium [Moles/Vol] 139 mmol/L Normal 137-145 [facility] Comment on above: Performed By: #### B MP ####[facility] [address] [place], [place] [address]Dr. Rose Chadwick Urea nitrogen [Mass/Vol] 15.0 mg/dL Normal 7.0-18.0 [facility] Comment on above: Performed By: #### B MP ####[facility] [address] [place], [place] [id number]. Rose Chadwick Urea nitrogen/Creatinine [Mass ratio] 17.6 mg/mg Normal [facility] Comment on above: Performed By: #### B MP ####[facility] [address] [place], [place] [id number]. Rose Chadwick XR LSPINE MIN 4 VIEWSon [...] PATITO DE JESUS Date: 2021-10-30 15:27 Normal [facility] Vital Signs Date Time Vital Sign Value Performing Clinician Facility 08-28-2024 13:21-0500 Diastolic blood pressure 76 mm[Hg] Skye Hemmer PA Work Phone: [facility] 08-28-2024 13:21-0500 Systolic blood pressure 148 mm[Hg] Skye Hemmer PA Work Phone: [facility] 08-28-2024 13:10-0500 Body height 152.4 cm Skye Hemmer PA Work Phone: [facility] 08-28-2024 13:10-0500 Body mass index (BMI) [Ratio] 35.27 kg/m2 Skye Hemmer PA Work Phone: [facility] 08-28-2024 13:10-0500 Body weight 81.92 kg Skye Hemmer PA Work Phone: [facility] 08-28-2024 13:10-0500 Heart rate 99 /min Skye Hemmer PA Work Phone: [facility] 08-28-2024 13:10-0500 Respiratory rate 16 /min Skye Hemmer PA Work Phone: [facility] 08-28-2024 13:10-0500 SaO2% (BldA) [Mass fraction] 99 % Skye Hemmer PA Work Phone: [facility] 06-29-2024 11:41-0500 Body mass index (BMI) [Ratio] 35.9 kg/m2 [facility] 06-28-2024 15:19-0500 Body height 152.4 cm [facility] 06-28-2024 15:19-0500 Body weight 83.46 kg [facility] 06-28-2024 15:19-0500 Diastolic blood pressure 84 mm[Hg] [facility] 06-28-2024 15:19-0500 Heart rate 87 /min [facility] 06-28-2024 15:19-0500 SaO2% (BldA) [Mass fraction] 96 % [facility] 06-28-2024 15:19-0500 Systolic blood pressure 170 mm[Hg] [facility] 04-09-2024 11:10-0400 Body mass index (BMI) [Ratio] 36.21 kg/m2 Kofi Bowers MD Work Phone: [facility] 04-09-2024 11:10-0400 Body weight 84.1 kg Kofi Bowers MD Work Phone: [facility] 04-09-2024 11:10-0400 Diastolic blood pressure 65 mm[Hg] Kofi Bowers MD Work Phone: [facility] 04-09-2024 11:10-0400 Heart rate 70 /min Kofi Bowers MD Work Phone: [facility] 04-09-2024 11:10-0400 Respiratory rate 16 /min Kofi Bowers MD Work Phone: [facility] 04-09-2024 11:10-0400 SaO2% (BldA) [Mass fraction] 93 % Kofi Bowers MD Work Phone: [facility] 04-09-2024 11:10-0400 Systolic blood pressure 115 mm[Hg] Kofi Bowers MD Work Phone: [facility] 06-27-2023 13:00-0500 Body height 154.94 cm Abdullahi Acosta Other [employer] Other 06-27-2023 13:00-0500 Body mass index (BMI) [Ratio] 35.9 kg/m2 Abdullahi Acosta Other [employer] Other 06-27-2023 13:00-0500 Body weight 86.18 kg Abdullahi Acosta Other [employer] Other 06-27-2023 13:00-0500 Diastolic blood pressure 64 mm[Hg] Abdullahi Acosta Other [employer] Other 06-27-2023 13:00-0500 SaO2% (BldA) [Mass fraction] 97 % Nishal Chaban Other [employer] Other 06-27-2023 13:00-0500 Systolic blood pressure 131 mm[Hg] Nishal Chaban Other [employer] Other 06-28-2022 14:00-0500 Body height 154.94 cm Abdullahi Chaban Other [employer] Other 06-28-2022 14:00-0500 Body mass index (BMI) [Ratio] 37.22 kg/m2 Nishal Chaban Other [employer] Other 06-28-2022 14:00-0500 Body temperature 96.8 [degF] Nishal Chaban Other [employer] Other 06-28-2022 14:00-0500 Body weight 89.36 kg Abdullahi Chaban Other [employer] Other 06-28-2022 14:00-0500 Diastolic blood pressure 73 mm[Hg] Nishal Chaban Other [employer] Other 06-28-2022 14:00-0500 SaO2% (BldA) [Mass fraction] 97 % Nishal Chaban Other [employer] Other 06-28-2022 14:00-0500 Systolic blood pressure 143 mm[Hg] Nishal Chaban Other [employer] Other 07-02-2021 14:00-0500 Body height 154.94 cm Olamidera Ching Other [employer] Other 07-02-2021 14:00-0500 Body mass index (BMI) [Ratio] 35.33 kg/m2 Olamide Jeane Other [employer] Other 07-02-2021 14:00-0500 Body temperature 96 [degF] Olamide Jeane Other [employer] Other 07-02-2021 14:00-0500 Body weight 84.82 kg Olamide Jeane Other [employer] Other 07-02-2021 14:00-0500 Diastolic blood pressure 83 mm[Hg] Olamide Jeane Other [employer] Other 07-02-2021 14:00-0500 SaO2% (BldA) [Mass fraction] 97 % Olamide Jeane Other [employer] Other 07-02-2021 14:00-0500 Systolic blood pressure 176 mm[Hg] Olamide Jeane Other [employer] 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); Benign essential hypertension (CMS/HCC); Morbid (severe) obesity due to excess calories (CMS/HCC); Body mass index (BMI) 35.0-35.9, adult Start: 08-28-2024 End: 08-28-2024 ambulatory SKYE GOODE Not Available Start: 08-20-2024 End: 08-20-2024 ambulatory Esperanza Maya MD Facility:[facility] Start: 08-13-2024 End: 08-13-2024 ambulatory Esperanza Maya MD Facility:[facility] Start: 08-02-2024 End: 08-02-2024 Ko Bowers MD Work Phone: [facility] Comment on above: Failed back syndrome Start: 07-30-2024 End: 07-30-2024 ambulatory Esperanza Maya MD Facility:[facility] Start: 07-23-2024 End: 07-23-2024 ambulatory Esperanza Maya MD Facility:[facility] Start: 07-18-2024 End: 07-18-2024 Clinisync Result Encounter Generic External Data Provider [facility] Unsolicited Start: 07-18-2024 End: 07-18-2024 Clinisync Result Encounter Generic External Data Provider [facility] External Department Unsolicited Start: 07-02-2024 End: 07-02-2024 Ko Bowers MD Work Phone: [facility] Comment on above: Failed back syndrome ; Hypothyroidism, unspecified type (CMS/HCC) Start: 06-29-2024 End: 06-29-2024 ambulatory [facility] Work Phone: Start: 06-29-2024 End: 06-29-2024 Patient encounter procedure [facility] Work Phone: Start: 06-04-2024 End: [...] 03-18-2024 Emergency department patient visit KOFI BOWERS [facility] Start: 01-18-2024 End: 01-18-2024 ambulatory SKYE GOODE Not Available Start: 12-01-2023 End: 12-01-2023 ambulatory KEN GALEANA Not Available Start: 11-17-2023 End: 11-17-2023 ambulatory KEN GALEANA Not Available Start: 11-15-2023 End: 11-15-2023 ambulatory KEN MCMULLENALL Not Available Start: 11-10-2023 End: 11-10-2023 ambulatory [...] 09-29-2023 Refill Kofi Bowers MD Work Phone: [facility] Comment on above: Failed back syndrome Start: 06-27-2023 End: 06-27-2023 ambulatory Abdullahi Acosta Facility:[facility] Start: 06-27-2023 Office outpatient vi sit 15 minutes [facility] Start: 06-27-2023 End: 06-27-2023 ambulatory II Kofi Bowers Work Phone: [facility] Work Phone: Start: 06-27-2023 End: 06-27-2023 Patient encounter procedure II Kofi Bowers Work Phone: [facility] Work Phone: Start: 01-18-2023 ambulatory DAVID ISAAC . Facility:[facility] Start: 01-03-2023 End: 01-03-2023 ambulatory URI CARLSON [facility] Start: 10-14-2022 End: 10-15-[address] SERENITY GARCIA . Facility:[facility] Start: 09-28-2022 End: 09-28-2022 ambulatory OSCAR DEL TORO [facility] Start: 09-07-2022 End: 09-08-[address] DOCTOR BUENROSTRO Facility:[facility] Start: 08-31-2022 End: 08-31-2022 ambulatory OSCAR DEL TORO [facility] Start: 08-23-2022 End: 08-24-[address] FRANKLYN GARCIA Facility:[facility] Start: 07-14-2022 End: 07-15-2022 ambulatory BETZAIDA ZIMMER . Facility:[facility] Start: 06-28-2022 Office outpatient vi sit 15 minutes Kamal Dave [facility] Start: 06-28-2022 End: 06-28-2022 ambulatory II Kofi Robinson Work Phone: [facility] Work Phone: Start: 06-28-2022 End: 06-28-2022 Patient encounter procedure II Kofi Bowers Work Phone: [facility] Start: 06-01-2022 End: 06-01-2022 ambulatory [facility] Start: 05-18-2022 End: 05-19-2022 ambulatory ANGELA VERNA Facility:[facility] Start: 05-05-2022 End: 05-06-2022 ambulatory ANGELA GILLESPIE Facility:[facility] Start: 04-28-2022 End: 04-28-2022 ambulatory [facility] Start: 04-08-2022 End: 04-08-[address] SERNEITY GARCIA . Facility:[facility] Start: 02-10-2022 End: 02-11-2022 [...] 07-02-2021 End: 07-02-2021 ambulatory Olamide Ching Other [facility] [employer] Other Start: 07-02-2021 Office outpatient vi sit 15 minutes Olamide Ching [facility] Procedures Date Procedure Procedure Detail Performing Clinician Start: 08-28-2024 Hemoglobin glycosyla chad a1c Skye FARIAS Work Phone: Start: 07-18-2024 ALL BASIC METABOLIC PANEL Generic External Data Provider Start: 04-09-2024 Hemoglobin glycosyla chad a1c Kofi Bowers MD Work Phone: Plan of Treatment Date Care Activity Detail Author Start: 04-17-2025 End: 04-17-2025 Patient encounter procedure 04/17/2025 11:00 AM EDT Office Visit [facility] [address] [place] [address] Kofi Bowers MD [address] [place] [address] [facility] Start: 04-09-2025 Medicare Annual Wellness (AWV) Medicare Annual Wellness (AWV) [facility] Start: 04-09-2025 Urine screening for protein Diabetes: Urine Protein Screening [facility] Start: 01-17-2025 Urine screening for protein Diabetes: Urine Protein Screening [facility] Start: 11-26-2024 Hemoglobin A1c measurement Diabetes: Hemoglobin A1C [facility] Start: 08-28-2024 End: 08-28-2024 Patient encounter procedure 08/28/2024 1:00 PM EST Office Visit [facility] [address] [place] [address] Skye Goode PA [address] [place] [address] Arrived [facility] Comment on above: Arrived Start: 08-13-2024 End: 08-13-2024 Patient encounter procedure 08/13/2024 1:15 PM EST Office Visit [facility] [address] [place] [address] Kofi Bowers MD [address] [place] [address] [facility] Start: 08-09-2024 End: 08-09-2024 Patient encounter procedure 08/09/2024 1:15 PM EST Office Visit [facility] [address] [place] [address] Kofi Bowers MD [address] [facility] [address] [place] [address] [facility] Start: 07-10-2024 Hemoglobin A1c measurement Diabetes: Hemoglobin A1C [facility] Start: 04-15-2024 Influenza vaccination Influenza Vacc ine (#1) [facility] Start: 04-09-2024 End: 04-09-2025 Microalbumin/Creatinine panel in random Urine Microalbumin / creatinine, urine ratio Lab Routine Type 2 diabetes mellitus without complication, without long-term current use of insulin ([facility]) Expected: 04/09/2024 (Approximate), Expires: 04/09/2025 [facility] Work Phone: Comment on above: Expected: 04/09/2024 (Approximate), Expires: 04/09/2025 Start: 04-09-2024 End: 04-09-2024 Patient encounter procedure [facility] Comment on above: Arrived Start: 01-27-2024 Hemoglobin A1c measurement Diabetes: Hemoglobin A1C [facility] Start: 01-04-2024 Medicare Annual Wellness (AWV) Medicare Annual Wellness (AWV) [facility] Start: 01-04-2024 Urine screening for protein Diabetes: Urine Protein Screening [facility] Start: 10-27-2023 End: 10-27-2023 Patient encounter procedure 10/27/2023 2:45 PM EDT Office Visit [facility] [address] [facility] [address] [place] [id number] Kofi Bowers MD [address] [facility] [address] [place] [address] [facility] Start: 10-19-2023 Hemoglobin A1c measurement Diabetes: Hemoglobin A1C [facility] Start: 04-28-2021 Glaucoma screening Diabetes: R etinopathy Screening [facility] Start: 05-15-2014 Pneumococcal Vaccine : 65+ Years (2 of 2 - PCV) Pneumococcal Vaccine: 65+ Years (2 of 2 - PCV) [facility] Immunizations Immunization Date Immunization Notes Care Provider Fa cility 06-20-2024 ABRYSVO - Respirator y syncytial virus (RSV), vaccine, bivalent, protein subunit RSV prefusion F, diluent reconstituted, 0.5 mL, PF Skye FARIAS Work Phone: [facility] 06-20-2024 influenza, high dose seasonal, preservative-free Skye FARIAS Work Phone: [facility] 06-06-2023 Influenza, High-dose Seasonal, Quadrivalent, Preservative Free Kofi Bowers MD Work Phone: [facility] 06-06-2023 influenza virus vacc ine, unspecified formulation Kofi Bowers MD Work Phone: [facility] 05-20-2021 Influenza, injectabl e, [place]in [place] Canine Kidney, preservative free, quadrivalent Kofi Bowers MD Work Phone: [facility] 09-15-2020 influenza, high dose seasonal, preservative-free Kofi Bowers MD Work Phone: [facility] 05-15-2020 Seasonal, trivalent, recombinant, injectable influenza vaccine, preservative free Kofi Bowers MD Work Phone: [facility] 06-15-2019 influenza, injectabl e, quadrivalent, preservative free Kofi Bowers MD Work Phone: [facility] 05-22-2018 influenza, injectabl e, quadrivalent, preservative free Kofi Bowers MD Work Phone: [facility] 08-02-2015 influenza, injectabl e, quadrivalent, preservative free Kofi Bowers MD Work Phone: [facility] 07-31-2015 tetanus and diphther ia toxoids, adsorbed, preservative free, for adult use (5 Lf of tetanus toxoid and 2 Lf of diphtheria toxoid) Kofi Bowers MD Work Phone: [facility] 05-15-2013 pneumococcal polysaccharide vaccine, 23 valent Kofi Bowers MD Work Phone: [facility] Payers Date Payer Category Payer Medicare [id number] 2023 Medicare (Managed Care) [facility] [place] [address] [id number] 2022 Medicare [id number] 2017 Medicare [id number] 1959 Medicare [id number] 1959 Medicare [id number] 1959 Private Health Insurance [facility] [id number] 1959 Self-pay [id number] 1945 Unknown [id number] 2.16.840.1.718963.3.579.2. 593 1945 Unknown [id number] 2.16.840.1.036459.3.579.2. 593 1945 Unknown [id number] 2.16.840.1.376009.3.579.2. 593 1945 Unknown [id number] 2.16.840.1.896729.3.579.2. 593 1945 Unknown [id number] 2.16.840.1.003698.3.579.2. 593 1945 Unknown [id number] 2.16.840.1.689173.3.579.2. 593 1945 Unknown [id number] 2.16.840.1.960485.3.579.2. 593 1945 Unknown [id number] 2.16840.1.970804.3.579.2. 593 1945 Unknown [id number] 2.840.1.804671.3.579.2. 593 1945 Unknown [id number] 2.840.1.138621.3.579.2. 593 1945 Unknown [id number] 2.840.1.124407.3.579.2. 593 1945 Unknown [id number] .840.1.523482.3.579.2. 593 1945 Unknown [id number] 2.840.1.735073.3.579.2. 593 1945 Unknown [id number] 2.840.1.035553.3.579.2. 593 1945 Unknown [id number] .840.1.180764.3.579.2. 593 1945 Unknown [id number] 2.16840.1.393175.3.579.2. 593 1945 Unknown [id number] 2.16.840.1.206657.3.579.2. 593 1945 Unknown [id number] 2.840.1.356213.3.579.2. 593 1945 Unknown [id number] 2.16.840.1.808342.3.579.2. 1286 1945 Unknown [id number] 2.16.840.1.057775.3.579.2. 125 1945 Unknown [id number] 2.16.840.1.202811.3.579.2. 1258 1945 Unknown [id number] 2.16.840.1.892616.3.579.2. 125 1945 Unknown [id number] 2.16.840.1.105989.3.579.2. 1258 1945 Unknown [id number] 2.16.840.1.382667.3.579.2. 125 1945 Unknown [id number] 2.16.840.1.566388.3.579.2. 1258 1945 Unknown [id number] 2.16.840.1.364210.3.579.2. 1258 1945 Unknown [id number] 2.16.840.1.306832.3.579.2. 1258 1945 Unknown [id number] 2.16.840.1.313737.3.579.2. 125 1945 Unknown [id number] 2.16.840.1.547255.3.579.2. 1258 1945 Unknown [id number] 2.16.840.1.038553.3.579.2. 125 1945 Unknown [id number] 2.16.840.1.139613.3.579.2. 1258 1945 Unknown [id number] 2.16.840.1.489592.3.579.2. 196 1945 Unknown [id number] 2.16.840.1.781114.3.579.2. 196 1945 Unknown [id number] 2.16.840.1.013659.3.579.2. 196 1945 Unknown [id number] 2.16.840.1.754154.3.579.2. 196 Medicare Medicare [id number] Medicare Medicare [id number] Unknown Kaden BC/BS [id number] Unknown [id number] 2.16.840.1.926539.3.579.2. 531 Social History Date Type Detail Facility Unknown if ever smoked [facility] Other Start: 06-15-2018 End: 03-11-2023 Tobacco smoking status NHIS Ex-smoker (finding) [facility] Start: 1945 Sex Assigned At Female [facility] Start: 07-20-2023 End: 04-09-2024 Sex Assigned At [facility] Other End: 08-15-1999 History of tobacco use Current smoker [facility] End: 08-15-1999 History of tobacco use Cigarette Smoker [facility] Start: 03-11-2023 Tobacco use and exposure Smokeless tobacco non-user [facility] Start: 07-20-2023 End: 08-28-2024 Alcohol intake Ex-drinker (finding) [facility] Start: 07-20-2023 End: 04-09-2024 History of Social function [facility] Start: 12-17-2022 Alcohol Comment Caffeine: 1-2 cups per day; none soda/pop [facility] Start: 1945 Sex Assigned At Not on file [facility] Start: 06-29-2024 Sex Female (finding) [facility] Clinical Notes 11-03-2021 to 09-03-2024 Telephone Encounter - Benita Busch - 09/03/2024 11:44 AM ESTTelephone Encounter - Benita Busch - 09/03/2024 11:44 AM DINORA Green - 08/28/2024 1:00 PM EST Note Date & Type Note Facility 09-03-2024 Telephone encount er Note traMADol (Ultram) 50 MG tablet to drug sarah glez [facility] 09-03-2024 Miscellaneous Notes Formattin g of this note might be different from the original. traMADol (Ultram) 50 MG tablet to drug sarah glez documented in this encounter [facility] 08-28-2024 History of Presen t illness Narrative Images from the original note were not included. HPI Insomnia Additional comments: Pt states she had a bone stimulator placement surgery on 08/13/24 at [facility] and she is actually sleeping better at night. Last edited by Abigail Gonzalez LPN on 08/28/2024 1:13 PM. Subjective Patient ID: Cece Mobley is a 79 y.o. female who presents for diabetes. Cece is present today for follow up diabetes. Denies foot ulcers, hypoglycemia. Admits tingling/numbness in extremities. Does check BS's at home. Currently on Trulicity, Levemir, Metformin. States still trying to lose weight. States has been rushing around today, this is her fourth stop/appointment. Current Outpatient Medications on File Prior to Visit Medication Sig Dispense Refill acarbose (Precose) 100 MG tablet TAKE 1 TABLET (100 MG) BY MOUTH IN THE MORNING AND 1 TABLET (100 MG) BEFORE BEDTIME. 60 tablet 10 acetaminophen (Tylenol) 500 MG tablet every 6 (six) hours. Allergy Relief 10 MG tablet TAKE 1 TABLET BY MOUTH EVERY MORNING 30 tablet 11 alpha tocopherol (Vitamin E) 400 units capsule 1 capsule. amLODIPine (Norvasc) 10 MG tablet TAKE 1 TABLET BY MOUTH IN THE MORNING 100 tablet 3 Ascorbic Acid (Vitamin C) 500 MG/5ML liquid 1 capsule 1 (one) time each day at the same time. aspirin 81 MG EC tablet 1 (one) time each day at the same time. Calcium Citrate-Vitamin D (Mark-Citrate Plus Vitamin D) 250-2.5 MG-MCG tablet Take 1 tablet by mouth in the morning and 1 tablet in the evening. cholecalciferol (Vitamin D-3) 1.25 MG (66413 UT) tablet Vitamin D3 5000IU furosemide (Lasix) 40 MG tablet TAKE 1 TABLET (40 MG) BY MOUTH IN THE MORNING. 30 tablet 10 insulin detemir (Levemir FlexTouch) 100 UNIT/ML pen INJECT 60 UNITS SUBCUTANEOUSLY EACH MORNING for 25 liothyronine (Cytomel) 25 MCG tablet 0.5 tablet on an empty stomach Orally two times daily. D.A.W. as Sigma or MasterImage 3D Brand ONLY for 90 days 200 tablet 3 losartan-hydroCHLOROthiazide (Hyzaar) 100-25 MG tablet Take 1 tablet by mouth Daily 100 tablet 2 lovastatin (Mevacor) 20 MG tablet TAKE 1 TABLET BY MOUTH ONCE DAILY 100 tablet 3 metFORMIN (Glucophage) 1000 MG tablet TAKE 1 TABLET (1,000 MG) BY MOUTH IN THE MORNING AND 1 TABLET (1,000 MG) IN THE EVENING. TAKE WITH MEALS. 60 tablet 10 omeprazole (PriLOSEC) [address] capsule TAKE 1 CAPSULE (20 MG) BY MOUTH IN THE MORNING. 30 capsule 10 orphenadrine (Norflex) 100 MG 12 hr tablet Take 1 tablet (100 mg) by mouth 2 (two) times a day as needed for muscle spasms for up to 10 days Do not crush, chew, or split. 20 tablet 0 potassium chloride CR (Klor-Con M20) 20 MEQ ER tablet 1 (one) time each day at the same time. QUEtiapine (SEROquel) 50 MG tablet TAKE 1 TABLET BY MOUTH ONCE DAILY 30 tablet 10 traMADol (Ultram) 50 MG tablet Take 1 tablet (50 mg) by mouth every 6 (six) hours if needed for severe pain 120 tablet 0 Trulicity 4.5 MG/0.5ML solution auto-injector INJECT CONTENTS OF 1 SYRINGE SUBCUTANEOUSLY ONCE WEEKLY 2 mL 10 [DISCONTINUED] cetirizine (ZyrTEC) 10 MG tablet 1 (one) time each day at the same time. [DISCONTINUED] rOPINIRole (Requip) 2 MG tablet Take 0.5 tablets (1 mg) by mouth at bedtime 30 tablet 2 [DISCONTINUED] Trulicity 4.5 MG/0.5ML solution pen-injector INJECT CONTENTS OF 1 SYRINGE SUBCUTANEOUSLY ONCE A WEEK 2 mL 10 [DISCONTINUED] zolpidem CR (Ambien CR) 6.25 MG ER tablet Take 1 tablet (6.25 mg) by mouth as needed at bedtime for sleep Do not crush, chew, or split. (Patient not taking: Reported on 04/09/2024) 30 tablet 2 No current facility-administered medications on file prior to visit. I have reviewed and reconciled the history and medication list with the patient today. Allergies Allergen Reactions Iodine Shortness of breath Levofloxacin Other Pregabalin Dizziness Shellfish Allergy Swelling Social History Tobacco Use Smoking status: Former Current packs/day: 0.00 Types: Cigarettes Quit date: 08/15/1999 Years since quittin.0 Smokeless tobacco: Never Substance Use Topics Alcohol use: Not Currently Comment: Caffeine: 1-2 cups per day; none soda/pop Drug use: Never Family History Problem Relation Name Age of Onset Cancer Mother Colon Cancer Diabetes Father Hypertension Father Heart disease Father Cancer Father Cancer Brother Colon ; Didn't indicate which brother among the 3 Other (Kidney problem) Brother Passed ; Didn't indicate which brother among the 3 Heart disease Brother Passed ; Didn't indicate which brother among the 3 Tourette syndrome Son Diabetes Son Cancer Other Spouse: Prostate that metastisized to bone ; Eryhtroid Leukemia Past Medical History: Diagnosis Date Appendicitis Arthritis Body mass index (BMI) of 40.0-44.9 in adult (CMS/HCC) Bronchitis Bruise of breast Cataract Colon polyps COVID-19 03/2021 Deviated nasal septum Diabetes mellitus (CMS/[facility]) Encounter for diabetic foot exam ([facility]) Family history of colon cancer Brother Fracture Rt orbital fracture, LUCIUS elbow fracture - shipped to [facility] 07/31/15. GERD (gastroesophageal reflux disease) History of being hospitalized 07/2015 [facility] - Post fall -rt orbital fx, LUCIUS elbow fracture, facial contusion History of colon polyps Hyperlipidemia (CMS/HCC) Hypertension (CMS/HCC) Labyrinthitis Left cervical radiculopathy Low back pain Measles Morbid obesity (CMS/HCC) Osteopenia Pneumonia Posterior vitreous detachment of both eyes RLS (restless legs syndrome) Thyroid problem Tonsillitis Past Surgical History: Procedure Laterality Date APPENDECTOMY BACK SURGERY 2008 DBL cage CARDIAC CATHETERIZATION 01/31/2012 CHOLECYSTECTOMY COLONOSCOPY 05/27/2022 PCL COLONOSCOPY W/ POLYPECTOMY 03/27/2015 x's 2 w/PCL COLONOSCOPY W/ POLYPECTOMY 06/15/2018 x's 3 w/PCL CT ANGIOGRAM CHEST 03/27/2019 CT ANGIOGRAM CHEST [facility] EXCISION Left 2011 exc of breast clip EYE SURGERY 01/2016 Rt eye repair from fall in Jul 2015 FASCIOTOMY 05/13/2020 (R) common peroneal nerve release, (R) superficial peroneal nerve release, (R) tibial nerve release, (R) leg fasciotomies, (R) plantar foot fasciectomy, harvest bone marrow FASCIOTOMY 11/06/2020 (L) common peroneal nerve release, (L) superficial Nerve Entrapment, (L) Tibeal Nerve, Left Fasciotomy, bone marrow aspiration and harvest LAMINECTOMY LUMBAR TRANSFORAMINAL EPIDURAL STEROID INJECTION 01/26/2022 NASAL SEPTUM SURGERY TOE SURGERY 12/01/2018 Cut end of second toe off TONSILLECTOMY TOTAL ABDOMINAL HYSTERECTOMY W/ BILATERAL SALPINGOOPHORECTOMY 1992 TRIGGER FINGER RELEASE 02/18/2021 Lt thumb; Dr. Díaz Visit Vitals BP 148/76 (BP Location: Left arm) Pulse 99 Resp 16 Ht 5' Wt 180 lb 9.6 oz SpO2 99% BMI 35.27 kg/m Smoking Status Former BSA 1.86 m Review of Systems Constitutional: Negative for chills, fatigue and fever. Respiratory: Negative for cough, shortness of breath and wheezing. Cardiovascular: Negative for chest pain, palpitations and leg swelling. Gastrointestinal: Negative for abdominal pain, constipation, diarrhea, nausea and vomiting. Skin: Negative for rash. Objective Physical Exam Constitutional: General: She is not in acute distress. Appearance: She is well-developed. She is obese. HENT: Head: Normocephalic and atraumatic. Eyes: General: [...] and oriented to person, place, and time. Gait: Gait abnormal (Using a quad cane for ambulation). Psychiatric: Mood and Affect: Mood normal. Behavior: Behavior normal. Office Visit on 08/28/2024 Component Date Value Ref Range Status Hemoglobin A1C 08/28/2024 6.4 Final Assessment/Plan Diagnoses and all orders for this visit: 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) - POCT Glycated hemoglobin, total Advised pt that her HgbA1c has improved from 7.0 to 6.4. Well controlled at this time. Continue current medications and will recheck A1c at her next appt. Benign essential hypertension (CMS/HCC) Patient's BP was improved on recheck, but remains mildly elevated. Encouraged her to check her BP occasionally to make sure it is staying controlled. Goal BP < 130/80. Morbid (severe) obesity due to excess calories (CMS/HCC) Pt has lost 5 pounds since her last appointment. Encouraged her to stay active and aim for healthy diet. Continue gradual steady weight loss. Body mass index (BMI) 35.0-35.9, adult See above. Follow up in about 7 months (around 04/10/2025) for Medicare Wellness Visit. documented in this encounter [facility] 08-02-2024 Telephone encount er Note traMADol (Ultram) [address] [facility] [place] [facility] 08-02-2024 Miscellaneous Notes Formattin g of this note might be different from the original. traMADol (Ultram) [address] [place] documented in this encounter [facility] 07-02-2024 Telephone encount er Note traMADol (Ultram) 50 MG tablet liothyronine (Cytomel) 25 MCG tablet Ddm in [place] [facility] 07-02-2024 Miscellaneous Notes Formattin g of this note might be different from the original. traMADol (Ultram) 50 MG tablet liothyronine (Cytomel) 25 MCG tablet Ddm in [place] documented in this encounter [facility] 06-04-2024 Telephone encount er Note OARRS reviewed, Rx sent into patient's pharmacy. [facility] 06-04-2024 Miscellaneous Notes Formattin g of this note might be different from the original. OARRS reviewed, Rx sent into patient's pharmacy. traMADol (Ultram) 50 MG tablet Ddm in [place] documented in this encounter [facility] 06-04-2024 Telephone encount er Note traMADol (Ultram) 50 MG tablet Ddm in [place] [facility] 05-07-2024 Telephone encount er Note traMADol (Ultram) 50 MG tablet Ddm in [place] [facility] 05-07-2024 Miscellaneous Notes Formattin g of this note might be different from the original. traMADol (Ultram) 50 MG tablet Ddm in [place] documented in this encounter [facility] 04-09-2024 History of Presen t illness [...] same time. cholecalciferol (Vitamin D-3) 1.25 MG (91821 UT) tablet Vitamin D3 5000IU furosemide (Lasix) 40 MG tablet TAKE 1 TABLET (40 MG) BY MOUTH IN THE MORNING. 30 tablet 10 insulin detemir (Levemir FlexTouch) 100 UNIT/ML pen INJECT 60 UNITS SUBCUTANEOUSLY EACH MORNING for 25 liothyronine (Cytomel) 25 MCG tablet 0.5 tablet on an empty stomach Orally two times daily. D.A.W. as Sigma or MasterImage 3D Brand ONLY for 90 days 200 tablet [...] Do you have a medical power of [place] attorney?: Yes Who is your medical power of united states attorney?: her son Objective : BP 115/65 [...] a living will and durable power of united states attorney for healthcare. We discussed telling ortiz [...] complication, without long-term current use of insulin ([facility]) - POCT glycosylated hemoglobin (Hb A1C) docked device - Microalbumin / creatinine, urine ratio; Future Morbid (severe) obesity due to excess calories ([facility]) Essential (primary) hypertension ([facility]) Body mass index (BMI) 35.0-35.9, adult Peripheral vascular disease, unspecified ([facility]) Iliopsoas bursitis of right hip - naproxen [...] April 09, 2024 documented in this encounter [facility] 04-04-2024 Telephone encount er Note OARRS reviewed, Rx sent into patient's pharmacy. [facility] 04-04-2024 Miscellaneous Notes Formattin g of this note might be different from the original. OARRS reviewed, Rx sent into patient's pharmacy. traMADol (Ultram) 50 MG tablet DDM IN [place] documented in this encounter [facility] 04-04-2024 Telephone encount er Note traMADol (Ultram) 50 MG tablet DDM [place] [facility] 09-29-2023 Telephone encount er Note OARRS reviewed, Rx sent into patient's pharmacy. [facility] 09-29-2023 Miscellaneous Notes Formattin g of this note might be different from the original. OARRS reviewed, Rx sent into patient's pharmacy. documented in this encounter [facility] 06-27-2023 Evaluation note Encounter Date Diagnosis Assessment Notes Jun, Obstructive sleep apnea (ICD-10 - G47.33) 13 Jun, 2023 Chronic insomnia (ICD-10 - F51.04) [facility] Other 05-22-2023 NotePatient is here today to discuss medication Review of Systems Musculoskeletal: Positive for arthritis and back pain. All other systems reviewed and are negative.[facility] 01-03-2023 NoteCardiovascular Medicine [facility] SUBJECTIVE Chief Complaint Patient presents with [...] BID. She will be driving down to [place] this weekend for her high school reunion. 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 [facility]03-02-2023 NoteCONSULTATION CONSULTATION DATE: 10/14/2022 HISTORY: This [...] unless otherwise indicated. Patient is in agreement.[id number] NoteCardiology Clinic Note Subjective Cece Mobley is [...] Types: Cigarettes Quit date: 1999 Years since quittin. Smokeless tobacco: Never Substance Use Topics Alcohol [...] BUN 13, creatinine 0.84, (more content not included)...[facility]02-14-2023 NotePatient here for 1 mo follow up hypertension and medication changes. She was started on hydrochlorothiazide and losartan was increased back up to 100mg daily. She had BMP on 09/07. Review of Systems Musculoskeletal: Positive for back pain. All other systems reviewed and are negative.[facility] 08-31-2022 NotebloUnElyria [facility] Hospital01-17-2023 NotePatient here for 3 mo [...] Systems All other systems reviewed and are negative.[facility] 08-31-2022 NoteCardiology Clinic Note Subjective Cece [...] 119, BUN 13, creatinine (more content not included)...[facility] 07-14-2022 NoteCONSULTATION CONSULTATION DATE: 07/14/2022 HISTORY [...] in three months' time unless otherwise indicated.[facility] [id number] Evaluation note* Encounter Date Diagnosis Assessment Notes [...] potential side effects were all discussed today [facility] [employer] Other 10-18-2022 NoteContinue to wear cpapUnElyria Memorial Hospital10-18-2022 NoteContinue amlodipine 10 mg daily- she recently ran out of 10 mg and this morning took 5 mg tablet she had from previous script. Continue coreg 25 mg bid, lasix 40 mg daily, losartan 50 mg daily and hydralazine 50 mg po bid.[facility]10-18-2022 Note Subjective Cece Mobley is a [...] Lab Review: Assessment/Plan There were no encounter diagnoses.[facility]10-18-2022 NoteHPI: Cece Mobley is a 77 [...] 0.85 on 11/03/21 05/18/22 BUN 23, CR 1. K+ 4.7- slightly improved CV Testin08/19/21 Echo [...] 3 months with repeat BMP for renal functionUnElyria Memorial Hospital09-26-2022 NoteI spoke with patient and informed her of medication changes per Veronica Gillespie CNP. [facility] and BMP faxed to [facility]. Patient verbalized understanding. [facility]09-14-2022 NoteF/U with PCP for further managementUnElyria Memorial Hospital09-14-2022 NoteHypertension remains uncontrolled, will add [...] BUN 15, CR 0.85 normal K+ 4.8 normalUnElyria Memorial Hospital09-14-2022 NoteAdded in error and don't know how to get rid of itUnElyria Memorial Hospital08-25-2022 NoteCONSULTATION CONSULTATION DATE: 04/08/2022 HISTORY [...] in the office post procedure in May.[facility] [id number] NoteCONSULTATION CONSULTATION DATE: 02/10/2022 HISTORY OF PRESENT [...] plan of care and all questions answered. [facility] Signed and Approved by: BETZAIDA ZIMMER . 02/11/2022 13:38:00[facility]03-22-2022 NoteCONSULTATION PAIN MANAGEMENT CONSULTATION CHIEF COMPLAINT: [...] had three nerves released by Dr. Branch, boot trimmer, in 2002. She states the pain has [...] would like to proceed. CC: Dr. Bowers [facility] Signed and Approved by: DR SERENITY GARCIA . 11/17/2021 11:24:00[facility] noteNort [employer] Other Evaluation noteNo assessment information available [facility] Work Phone: Evaluation note* Diagnosis Failed back syndrome Other unspecified back disorder documented in this encounter [facility]* Diagnosis Failed back syndrome Other unspecified back disorder documented in this encounter [facility] HealthcareEvaluation note* Diagnosis Onset Date Resolution Status Admit Date Chronic insomnia acute June 29, 2024 11:30am MANOLO (obstructive sleep apnea) acute June 29, 2024 11:30am [facility] Work Phone: Evaluation note* Diagnosis Failed back syndrome Other unspecified back disorder Hypothyroidism, unspecified type (CMS/HCC) documented in this encounter [facility]Evaluation note* Diagnosis Failed back syndrome Other unspecified back disorder documented in this encounter [facility]* Diagnosis Routine general medical examination [...] of right hip documented in this encounter [facility]* Diagnosis Failed back syndrome Other unspecified back disorder documented in this encounter [facility]Evaluation note* Diagnosis 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)- Primary Benign essential hypertension (CMS/HCC) Essential hypertension, benign Morbid (severe) obesity due to excess calories (CMS/HCC) Body mass index (BMI) 35.0-35.9, adult documented in this encounter [facility] HealthcareEvaluation note* Diagnosis Failed back syndrome Other unspecified back disorder documented in this encounter [facility] HealthcareHistory general Narrative - ReportedNort [employer] Other History general Narrative - Reported* Type Description Date Medical History HTN Medical History DM2 Medical History Osteoporosis Medical History Neuropathy Medical History hyperlipedemia Medical History Hot Flashes/Sweats Medical History copd Medical History MANOLO (obstructive sleep apnea) Surgical History Back surgery x 2 Surgical History JORGE 1992 Surgical History cholecystectomy 1978 Surgical History septoplasty 1970 Surgical History cataract surgery Surgical History eyes surgery Surgical History facial cosmetic surgery Surgical History HYSTERECTOMY Surgical History tonsillectomy Hospitalization History Heart Attack 2012 Hospitalization History see above [employer] Other Chief Complaint and Reason for Visit [...] Active Abdullahi Acosta MD Attending Provider Active Back Facer Relationship Specialty Start Date End Date Kofi Bowers MD [address] [facility] [address] [place] [address] PCP - General Internal Medicine 12/22/22 Back Facer Relationship Specialty Start Date End Date Kofi Bowers MD [address] [facility] [address] [place] [address] PCP - General Internal Medicine 12/22/22 Team Status: Inactive Member Role Status Dates Kofi Bowers II MD Primary Care Provider Active Start: June 29, 2024 End: June 29, 2024 Myra Sales APRN [facility] Attending Provider Active Start: June 29, 2024 End: June 29, 2024 Back Facer Relationship Specialty Start Date End Date Kofi Bowers MD [address] [facility] [address] [place] [address] PCP - General Internal Medicine 12/22/22 Back Facer Relationship Specialty Start Date End Date Kofi Bowers MD [address] [facility] [address] [place] [address] PCP - General Internal Medicine 12/22/22 Back Facer Relationship Specialty Start Date End Date Kofi Bowers MD [address] [facility] [address] [place] [address] PCP - General Internal Medicine 12/22/22 Back Facer Relationship Specialty Start Date End Date Kofi Bowers MD [address] [facility] [address] [place] [address] PCP - General Internal Medicine 12/22/22 Back Facer Relationship Specialty Start Date End Date Kofi Bowers MD [address] [facility] [address] [place] [address] PCP - General Internal Medicine 12/22/22 Back Facer Relationship Specialty Start Date End Date Kofi Bowers MD [address] [facility] [address] [place] [address] PCP - General Internal Medicine 12/22/22 Back Facer Relationship Specialty Start Date End Date Kofi Bowers MD [address] [facility] [address] [place] [address] PCP - General Internal Medicine 12/22/22 Goals [...] Reason Onset Date Comments Med Refill 08/02/2024 Reason Comments Insomnia Pt states she had a bone stimulator placement surgery on 08/13/24 at [facility] and she is actually sleeping better at night. INFORMATION SOURCE (unrecogn ized section and content) DATE CREATED AUTHOR 10/19/2022 [facility] DATE CREATED AUTHOR AUTHOR'S ORGANIZ ATION 01/27/2023 [facility] DATE CREATED AUTHOR AUTHOR'S ORGANIZ ATION 09/23/2023 [facility] DATE CREATED AUTHOR AUTHOR'S ORGANIZ ATION 03/20/2024 [facility] DATE CREATED AUTHOR AUTHOR'S ORGANIZ ATION 08/31/2024 [facility] DATE CREATED AUTHOR AUTHOR'S ORGANIZ ATION 09/01/2024 [facility] FOR RECORDS PERTAINING TO PATIENTS WHO ARE [...] BE BASED ON THE PRIMARY CLINICAL RECORDS. [employer] provides no warranty or guarantee of the accuracy or completeness of information in this document.
--- NOTE | 2024-09-10 13:59 | P.CN_ITS ---
Consult Note: HPI Data of Consult Patient: known to practice within the last 3 years Consult date: 09/10/24 Requesting Physician: Esperanza Maya MD Primary Care Provider: BELEN ZALDIVAR Consult Narrative Reason for consult: low back pain Narrative: 79yof who presents for assessment. continues to do well with her current scs implant. recently had some issues charging, but these were solved today with the rep. cc:: CC: Esperanza Maya MD Review of Systems ROS Status of ROS 10 or more systems reviewed and unremark able except as noted in history and below PFSH [facility] Medical History Facial trauma (~2016) ?S09.93XA - Unspecified injury of face, initial encounter (ICD-10) Chronic insomnia ?F51.04 - Psychophysiologic insomnia (ICD-10) Low iron ?E61.1 - Iron deficiency (ICD-10) Pneumonia ?J18.9 - Pneumonia, unspecified organism (ICD-10) Restless leg ?G25.81 - Restless legs syndrome (ICD-10) GERD (gastroesophageal reflux disease) ?K21.9 - Gastro-esophageal reflux disease without esophagitis (ICD-10) Activity intolerance ?R68.89 - Other general symptoms and signs (ICD-10) Extremity edema ?R60.0 - Localized edema (ICD-10) Diabetes ?E11.9 - Type 2 diabetes mellitus without complications (ICD-10) Hypothyroidism ?E03.9 - Hypothyroidism, unspecified (ICD-10) Low back pain ?M54.50 - Low back pain, unspecified (ICD-10) Osteoarthritis ?M19.90 - Unspecified osteoarthritis, unspecified site (ICD-10) Diabetes 1.5, managed as type 2 ?E13.9 - Other specified diabetes mellitus without complications (ICD-10) Sleep apnea ?G47.30 - Sleep apnea, unspecified (ICD-10) High cholesterol ?E78.00 - Pure hypercholesterolemia, unspecified (ICD-10) Hypertension ?I10 - Essential (primary) hypertension (ICD-10) Surgical History History of facial surgery (~2016) ?Z98.890 - Other specified postprocedural states (ICD-10) History of colonoscopy ?Z98.890 - Other specified postprocedural states (ICD-10) History of radiofrequency ablation (RFA) of nerve of lumbar spine ?Z98.890 - Other specified postprocedural states (ICD-10) S/P epidural steroid injection ?Z92.241 - Personal history of systemic steroid therapy (ICD-10) Previous back surgery ?Z98.890 - Other specified postprocedural states (ICD-10) History of cholecystectomy ?Z90.49 - Acquired absence of other specified parts of digestive tract (ICD- 10) Hx of tonsillectomy ?Z90.89 - Acquired absence of other organs (ICD-10) History of appendectomy ?Z90.49 - Acquired absence of other specified parts of digestive tract (ICD- 10) Family History Other Cancer Family history of coronary artery disease Family history of diabetes mellitus Family history of heart disease Family history of hypertension Social History Within the past year, how often did you have a drink containing alcohol: never Score interpretation: A score less than 3 is consistent with normal alcohol consumption. Smoking status: Never smoker Non-prescribed substance use: denies use Highest level of school completed/degree received: Associate degree: occupational, technical, vocational program Meds Home Medications and Allergies Home Medications ?Medication ?Instructions ?Recorded ?Confirmed ?Type acarbose 100 mg tablet 100 mg PO BID 10/19/23 08/13/24 History amlodipine 10 mg tablet 10 mg PO DAILY 10/19/23 08/13/24 History aspirin 81 mg capsule 81 mg PO DAILY 10/19/23 08/13/24 History carvedilol 25 mg tablet 25 mg PO BID 10/19/23 08/13/24 History dulaglutide 4.5 mg/0.5 mL 4.5 mg subcut .weekly 10/19/23 08/13/24 History subcutaneous pen injector (Trulicity) furosemide 40 mg tablet 40 mg PO DAILY 10/19/23 08/13/24 History insulin detemir U-100 100 unit/mL 60 unit subcut DAILY 10/19/23 08/13/24 History (3 mL) subcutaneous pen (Levemir FlexPen) liothyronine 25 mcg tablet .5 mcg PO BID 10/19/23 08/13/24 History loratadine 10 mg tablet 10 mg PO DAILY PRN allergic 10/19/23 08/13/24 History symptoms losartan 100 1 tab PO DAILY 10/19/23 08/13/24 History mg-hydrochlorothiazide 25 mg tablet lovastatin 20 mg tablet 20 mg PO DAILY 10/19/23 08/13/24 History metformin 1,000 mg tablet 1,000 mg PO BID 10/19/23 08/13/24 History omeprazole 20 mg capsule,delayed 20 mg PO DAILY 10/19/23 08/13/24 History release potassium chloride 20 mEq 20 meq PO DAILY 10/19/23 08/13/24 History tablet,extended release quetiapine 50 mg tablet 50 mg PO DAILY 10/19/23 08/13/24 History tramadol 50 mg tablet 100 mg PO Q12H PRN pain 10/19/23 08/13/24 History acetaminophen 500 mg capsule 1,000 mg PO BID 07/18/24 08/13/24 History ascorbic acid (vitamin C) 500 mg 500 mg PO BID 07/18/24 08/13/24 History capsule calcium 600 mg (as 1 tab PO DAILY 07/18/24 08/13/24 History carbonate)-vitamin D3 5 mcg (200 unit) tablet (Calcium 600 + D(3)) cholecalciferol (vitamin D3) 125 5,000 unit PO DAILY 07/18/24 08/13/24 History mcg (5,000 unit) capsule vitamin B complex (B-Complex 1 tab PO DAILY 07/18/24 08/13/24 History tablet) vitamin E 268 mg (400 unit) capsule 268 mg PO BID 07/18/24 08/13/24 History cephalexin 500 mg capsule 500 mg PO TID 7 days #21 caps 07/23/24 08/13/24 Rx cephalexin 500 mg capsule 500 mg PO TID 7 days #21 caps 08/13/24 Rx cephalexin 500 mg capsule 500 mg PO TID 7 days #21 caps 08/13/24 Rx cyclobenzaprine 10 mg tablet See Rx Instructions .Route 08/13/24 Rx .COMPLEX #90 tabs hydrocodone 5 mg-acetaminophen 325 1 tab PO QID PRN pain #12 tabs 08/13/24 Rx mg tablet hydrocodone 5 mg-acetaminophen 325 1 tab PO QID PRN pain #12 tabs 08/13/24 Rx mg tablet Allergies Allergy/AdvReac Type Severity Reaction Status Date / Time iodine Allergy Severe Anaphylaxis Verified 08/13/24 06:57 levofloxacin (From Levaquin) Allergy Rash Verified 08/13/24 06:57 Exam Narrative Exam Narrative: Psych-alert and oriented x 3. Attentive and appropriate, constitutionally normal, displays normal mood and affect per situation.? There are no obvious deficits in memory, reasoning, or intellect.? Skin-no obvious rashes, bruising, erythema noted to the patient's area of pain. Extremities- extremities are warm with minimal edema and palpable pulses. Lumbar-no significant tenderness to palpation noted in the lumbar spine and paraspinal musculature.? Pain is elicited with extension, and lateral rotation of the lumbar spine. Range of motion is slightly diminished with these motions due to pain. Coordination remains intact.? Gait remains non-antalgic. Assessment and Plan Assessment and Plan (1) Failed back syndrome: (2) History of lumbar fusion: Plan 79yof who presents for assessment. continues to do well after scs implant. steristrips removed today. discussed that her battery should charge well now. incisions assessed, appear to be clean, dry, intact. meds reviewed, no changes. follow up in 2-3 months.
== END 2024-09-10 12:40 | disposition home or self-care (01) ==
LOC: PM 12:39
PROVIDERS: PCP Internal Medicine; Visit Provider Anesthesiology
DX: M96.1 Postlaminectomy syndrome, not elsewhere classified (principal); M43.26 Fusion of spine, lumbar region
CPT/HCPCS: G0463

== ENCOUNTER 2024-10-29 11:21 | Outpatient (OUT) | payer MEDICARE, SELFPAY ==
--- NOTE | 2024-10-29 | CONS_ITS ---
CONSULTATION DATE: 10/29/2024 TO: Kofi Bowers M.D. HISTORY: Patient returns today complaining of 3-4/10 pain in her lower back on the right side, described as a dull aching pain, increased with activity such as standing, walking and performing transitioning maneuvers. She feels most comfortable in the semi-recumbent position. Denies any change in bowel and bladder habits, or new sensory motor change in her lower extremities. She has undergone successful spinal consultation with implantation on 08/13/2024. She reports her pain is dramatically improved since the stimulator was placed. She is quite happy with the results. However, her residual pain is rated at 3-4/10 in severity. EXAM: Our examination is notable for patient having no clinical radiculopathy or myelopathy involving the lower extremities. Patient did have significant myofascial spasm of the lumbar paravertebral muscle, mainly her erector spinae, more significant on the right than the left side. IMPRESSION: Our impression is patient reports to have chronic pain, status post successful spinal column stimulator placement, with placement of neural electrodes and neural baggage porter head. Her residual pain symptoms appear to be related to myalgias and myofascial spasm of the erector spinae muscles. RECOMMENDATIONS: I have asked her to discontinue her Flexeril. Will trial her on baclofen 10 mg pills, half a pill to one pill up to t.i.d. as tolerated. Will see the patient back in the office in three months? time or sooner if needed. As part of providing excellent, safe, comprehensive care, the following was completed at our patient's visit: 1. A medication reconciliation and review to ensure accurate knowledge of current/active medications, including asking our patients to inform us about any [id number] medications or herbal remedies/nutritional supplements/alternative remedies. 2. A review to specifically ensure our patients have had annual screening for: elevated body mass index (BMI, see intake chart for exact total), tobacco use, screening for depression, and screening for unhealthy alcohol use. When screening is concerning, patients are provided with education and the specific recommendation to discuss the concerning health issue and treatment options with their primary care provider. ANDREEA
--- OUTSIDE RECORDS SUMMARY | 2024-10-29 11:31 | XMS_ITS | CCD ---
Author Organization [facility] Care Team Providers Care Cotton Ginner Helper Name Role Phone Olamide Ching Unavailable MD Abdullahi Acosta Attending Provider [phone] MONI Bowers Primary Care Provider Abdullahi Acosta [...] Unavailable Kofi Bowers MD Primary Care Provider [phone] KOFI BOWERS Primary Care Unavailable SHUBHAM GANN [...] Unavailable HEMSKYE MARTINEZ Attending Unavailable Giedraitis , Andrius Shafer Attending Unavailable Giedraitis , Andrius Silviaytaltagracia Attending Unavailable Giedraitis , Andrius Silviaytaltagracia Attending Unavailable Giedraitis , Andrius Vytautflaca Attending Unavailable Giedraitis , Andrius Vytautflaca Attending Unavailable Allergies Allergy Classification Reported Allergen(s) Allergy Type Date of Onset Reaction(s) Facility (3 sources) Gemfibrozil Drug Allergy muscle atrophy [facility] Other (20 sources) Iodine; Translations: [IODINE] Drug Allergy 11-24-19 19 anaphylaxis, Shortness of breath [facility] Repository (5 sources) levoFLOXacin; Translations: [Levaquin] Drug Allergy 11-17-19 16 tendonopathy [facility] Repository (20 sources) levoFLOXacin; Translations: [LEVOFLOXACIN] Drug Allergy 06-15-20 18 Other [facility] (1 source) Iodine and Iodide Containing Produc Allergy to substance 06-13-20 18 Unknown Reaction [facility] (2 sources) hydrALAZINE Drug Allergy 11-18-19 16 [facility] Repository (1 source) Iodine Drug Allergy 07-31-20 15 [facility] (16 sources) pregabalin; Translations: [PREGABALIN] Drug Allergy 02-25-20 21 Dizziness [facility] Repository (1 source) SHELLFISH CONTAINING PRODUCTS; Translations: [SHELLFISH CONTAINING PRODUCTS] Propensity to adverse reactions to drug (disorder) 01-25-20 14 [facility] Repository (3 sources) Iodinated Contrast Media; Translations: [Iodinated Contrast Media] Allergy to substance 08-19-19 23 Unknown Reaction [facility] (2 sources) Gemfibrozil Drug Allergy 06-27-20 23 muscle atrophy [facility] Repository (1 source) Iodine Drug Allergy 06-27-20 23 [facility] Repository (15 sources) Shellfish Allergy to substance 01-25-20 14 [...] 11:00pm acetaminophen 500 mg oral ta blet (18 sources) acetaminophen (T ylenol) 500 MG tablet [...] Active ascorbic acid 100 mg/ml oral solution (15 sources) Vitamin C Ascorbic Acid (Vitamin C) 500 MG/5ML liquid 1 capsule 1 (one) time each day at the same time. Active aspirin 81 mg delayed release oral tablet (18 sources) Platelet Aggregation Inhibitor, Nonsteroidal Anti-inflammatory Drug [...] mg / cholecalciferol 100 unt oral tablet (15 sources) Vitamin D take 1 tablet by [...] Discontinued (Other) cholecalciferol 1.25 mg oral tablet (15 sources) Vitamin D cholecalciferol (Vitamin D-3) 1.25 MG (78546 UT) tablet Vitamin D3 5000IU Active cholecalciferol (Vitamin D-3) 1.25 MG (11912 UT) tablet Vitamin D3 5000IU 0 Active [...] / losartan potassium 100 mg oral tablet (15 sources) Thiazide Diuretic, Angiotensin 2 Receptor Theodora [...] ml insulin detemir 100 unt/ml pen injector (18 sources) Insulin Analog Start: 06-13-2018 Insulin Detemi [...] two times daily. D.A.W. as Sigma or CureVac Brand ONLY for 90 days 200 tablet [...] Active Start: 06-13-2018 take 1 tablet by [place] once daily lovastatin (Mevacor) 20 MG tablet [...] 12, 2018 11:00pm take 2 tablets by [facility] every twenty-four hours Toprol XL 50 MG [...] citrate 100 mg extended release oral tablet (14 sources) Muscle Relaxant Start: 10-27-2023 take 1 [...] oral tablet (20 sources) Atypical Antipsychotic Start: 09-17-2024 take 1 tablet by mouth once daily QUEtiapine (SEROquel) 50 MG tablet Indications: Insomnia, unspecified type TAKE 1 TABLET BY MOUTH ONCE DAILY 30 tablet 10 09/17/2024 Active Start: 06-13-2018 take 1 tablet by javi th once daily QUEtiapine (SEROquel) 50 MG tablet [...] (20 sources) Opioid Agonist Start: 03-05-2024 End: 11-02-2024 take 1 tablet by mouth every six hours for pain traMADol (Ultram) 50 MG tablet Indications: Failed back syndrome Take 1 tablet (50 mg) by mouth every 6 (six) hours if needed for severe pain 120 tablet 10/03/2024 11/02/2024 Active Start: 09-29-2023 take 1 tablet by javi every six hours for pain traMADol (Ultram) [...] Discontinued (Reorder) take 1 tablet by javi every twenty-four hours traMADol HCl 50 MG 1 tablet as needed Orally Once a day Active Trulicity 4.5 MG/0.5ML solut ion auto-injector (5 sources) Start: 08-23-2024 Trulicity 4.5 MG/0.5ML solution auto-injector Indications: 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) INJECT CONTENTS OF 1 SYRINGE SUBCUTANEOUSLY ONCE WEEKLY 2 mL 10 08/23/2024 Active Trulicity 4.5 MG/0.5ML solut ion pen-injector (10 sources) Start: 08-23-2023 Trulicity 4.5 MG/0.5ML solution pen-injector Indications: 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) INJECT CONTENTS OF 1 SYRINGE SUBCUTANEOUSLY ONCE A WEEK 2 mL 10 08/23/2023 Active Vitamin D3 (3 sources) Vitamin D3 Activ e vitamin e d-alpha 400 unt oral capsule (15 sources) alpha tocopherol (Vitamin E) 400 units [...] te Episodic/Chronic Cardiac and circulatory congenital anomalies (15 sources) Congenital anomaly of renal blood vessel; 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] Onset: 11-25-2015 12-14-2022 Chronic Diabetes mellitus with complications (20 sources) Disorder of nervous system due to type 2 diabetes mellitus; Translations: [Type 2 diabetes mellitus with other diabetic neurological complication] Onset: 08-15-2014 12-14-2022 Chronic Diabetes mellitus without complication (18 sources) Type 2 diabetes mellitus without complications; Translations: [Diabetes mellitus] Onset: 01-24-2014 03-11-2023 Chronic Disorders of lipid metabolism (16 sources) Hyperlipidemia, unspecified; Translations: [Mixed hyperlipidemia] Onset: 01-07-2022 12-14-2022 Chronic Esophageal disorders (16 sources) Gastro-esophageal reflux disease without esophagitis; Translations: [Gastroesophageal reflux disease] Onset: 01-07-2022 12-14-2022 Chronic Essential hypertension (20 sources) Essential (primary) hypertension; Translations: [Benign essential hypertension] Onset: 01-07-2022 Chronic Malaise and fatigue (15 sources) Fatigue; Translations: [Chronic fatigue, unspecified] Onset: 12-14-2022 12-14-2022 Chronic Menopausal disorders (19 sources) Other primary ovarian failure; Translations: [Decreased estrogen level] Onset: 01-04-2022 Chronic Miscellaneous mental health disorders (6 sources) Chronic insomnia; Translations: [Psychophysiologic insomnia] Chronic Other diseases of veins and lymphatics (15 sources) Venous hypertension of lower limb; Translations: [Chronic venous hypertension (idiopathic) without complications of unspecified lower extremity] Onset: 12-21-2022 12-21-2022 Chronic Other eye disorders (15 sources) Bilateral vitreous floaters; Translations: [Other vitreous opacities, bilateral] Onset: 12-14-2022 12-14-2022 Chronic Other hereditary and degenerative nervous system conditions (1 source) Restless legs syndrome; Translations: [RESTLESS LEGS SYNDROME] Onset: 11-06-2021 Chronic Other hereditary and degenerative nervous system conditions (14 sources) Restless legs; Translations: [Restless legs syndrome] Onset: 01-18-2024 01-18-2024 Chronic Other lower respiratory disease (3 sources) Disorder of lung; Translations: [Other disorders of lung] Episodic Other nervous system disorders (1 source) Polyneuropathy, unspecified; Translations: [POLYNEUROPATHY UNSPECIFIED] Onset: 04-14-2022 Chronic Other nervous system disorders (15 sources) Chronic pain syndrome; Translations: [Chronic pain syndrome] Onset: 12-14-2022 12-14-2022 Chronic Other nervous system disorders (15 sources) Difficulty walking; Translations: [Difficulty in walking, not elsewhere classified] Onset: 12-14-2022 12-14-2022 Chronic Other nervous system disorders (15 sources) Polyneuropathy; Translations: [Polyneuropathy, unspecified] Onset: 01-24-2014 03-11-2023 Chronic Other nutritional; endocrine; and metabolic disorders (6 sources) Obese class II; Translations: [Body mass index (BMI) 35.0-35.9, adult] Chronic Other nutritional; endocrine; and metabolic disorders (1 source) Body mass index (BMI) 35.0-35.9, adult Onset: 07-02-2021 Resolved: 07-02-2021 Chronic Other nutritional; endocrine; and metabolic disorders (19 sources) Body mass index 30+ - obesity; Translations: [Obesity, unspecified] Onset: 04-21-2020 03-11-2023 Chronic Other nutritional; endocrine; and metabolic disorders (15 sources) Lipoprotein deficiency disorder; Translations: [Lipoprotein deficiency] Onset: 05-01-2018 03-11-2023 Chronic Other nutritional; endocrine; and metabolic disorders (8 sources) Obesity caused by energy imbalance; Translations: [Morbid (severe) obesity due to excess calories] Onset: 08-28-2024 04-09-2024 Chronic Other upper respiratory disease (15 sources) Allergic rhinitis; Translations: [Other allergic rhinitis] Onset: 12-14-2022 12-14-2022 Chronic Peripheral and visceral atherosclerosis (17 sources) Peripheral vascular disease; Translations: [Peripheral vascular disease, unspecified] Onset: 12-14-2022 12-14-2022 Chronic Residual codes; unclassified (19 sources) Obstructive sleep apnea syndrome; Translations: [Obstructive sleep apnea (adult) (pediatric)] Onset: 04-11-2019 03-11-2023 Chronic Residual codes; unclassified (6 sources) Obstructive sleep apnea (adult) (pediatric); Translations: [Obstructive sleep apnea (adult)(pediatric)] Onset: 07-02-2021 Resolved: 07-02-2021 Chronic Residual codes; unclassified (1 source) Obstructive sleep apnea (adult)(pediatric); Translations: [Obstructive sleep apnea (adult) (pediatric)] Onset: 06-27-2023 Chronic Residual codes; unclassified (15 sources) 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 airway pressure ventilation; Translations: [Dependence on other enabling machines and devices] Onset: 12-14-2022 12-14-2022 Chronic Residual codes; unclassified (15 sources) Initial insomnia; Translations: [Other insomnia] Onset: [...] counseling] 04-09-2024 Episodic Blindness and vision defects (15 sources) Diplopia; Translations: [Diplopia] Onset: 03-11-2023 03-11-2023 Episodic Conditions associated with dizziness or vertigo (14 sources) Vertigo; Translations: [Dizziness and giddiness] Onset: 10-27-2023 10-27-2023 Episodic E Codes: Fall (1 source) Unspecified fall, initial encounter; Translations: [UNSPECIFIED FALL INITIAL ENCOUNTER] Onset: 01-07-2022 Episodic Fracture of upper limb (15 sources) Fracture of radial neck; Translations: [Displaced fracture of neck of unspecified radius, initial encounter for closed fracture] Onset: 03-11-2023 03-11-2023 Episodic Mood disorders (12 sources) Mood disorders Onset: 04-09-2024 04-09-2024 Other aftercare (1 source) prison (current) use of insulin; Translations: [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] Onset: 01-27-2022 Episodic Other aftercare (1 source) intermediate card tender (current) use of aspirin; Translations: [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 ASPIRIN] Onset: 01-07-2022 Episodic Other aftercare (1 source) intermediate card tender (current) use of oral hypoglycemic drugs; Translations: [SENIOR LIVING USE ORAL HYPOGLYCEMIC DX] Onset: 01-07-2022 Episodic Other aftercare (1 source) Other intermediate (current) drug therapy; Translations: [OTH FIELD CROP HARVEST WORKER CURRENT DRUG THERAPY] Onset: 01-07-2022 Episodic Other aftercare (15 sources) Long-term current use of insulin; Translations: [prison (current) use of insulin] Onset: 01-28-2016 03-11-2023 Episodic Other and unspecified benign neoplasm (15 sources) Adenomatous polyp of colon ; Translations: [Benign neoplasm of ascending colon] Onset: 12-14-2022 12-14-2022 Episodic Other and unspecified benign neoplasm (15 sources) History of polyp of colon; Translations: [Personal history of colonic polyps] Onset: 06-01-2018 03-11-2023 Episodic Other and unspecified benign neoplasm (15 sources) Benign neoplasm of colon; Translations: [Benign neoplasm of colon, unspecified] Onset: 06-27-2018 03-11-2023 Episodic Other bone disease and musculoskeletal deformities (15 sources) Osteopenia; Translations: [Other specified disorders of bone density and structure, unspecified site] Onset: 12-14-2022 12-14-2022 Episodic Other connective tissue disease (1 source) Arthrodesis status; Translations: [ARTHRODESIS STATUS] Onset: 01-27-2022 Episodic Other connective tissue disease (15 sources) Trigger thumb of left hand; Translations: [Trigger thumb, left thumb] Onset: 12-14-2022 12-14-2022 Episodic Other connective tissue disease (15 sources) Acquired trigger finger; Translations: [Trigger finger, unspecified finger] Onset: 01-15-2021 03-11-2023 Episodic Other connective tissue disease (2 sources) Iliopsoas bursitis of right hip; Translations: [Other bursitis of hip, right hip] 04-09-2024 Episodic Other diseases of veins and lymphatics (15 sources) Peripheral venous insufficiency; Translations: [Venous insufficiency (chronic) (peripheral)] Onset: 12-14-2022 12-14-2022 Episodic Other eye disorders (15 sources) Lower eyelid ectropion; Translations: [Unspecified ectropion of unspecified eye, unspecified eyelid] Onset: 03-11-2023 03-11-2023 Episodic Other eye disorders (15 sources) Epiphora; Translations: [Unspecified epiphora, unspecified side] Onset: 04-08-2022 03-11-2023 Episodic Other injuries and conditions due to external causes (15 sources) History of fall; Translations: [History of falling] Onset: 10-02-2015 03-11-2023 Episodic Other non-traumatic joint disorders (15 sources) Pain in elbow; Translations: [Pain in unspecified elbow] Onset: 03-11-2023 03-11-2023 Episodic Other nutritional; endocrine; and metabolic disorders (15 sources) Cholesterol level - finding; Translations: [Lipoprotein deficiency] Onset: 12-14-2022 Resolved: 12-14-2022 12-14-2022 Chronic Residual codes; unclassified (1 source) Insomnia, unspecified; Translations: [INSOMNIA UNSPECIFIED] Onset: 07-17-2022 Episodic Residual codes; unclassified (2 sources) Localized edema; Translations: [Localized edema] Onset: 09-28-2022 Episodic Residual codes; unclassified (15 sources) Insomnia; Translations: [Insomnia, unspecified] Onset: 06-10-2015 03-11-2023 Episodic Residual codes; unclassified (15 sources) Family history of malignant neoplasm of gastrointestinal tract; Translations: [Family history of malignant neoplasm of digestive organs] Onset: 06-01-2018 03-11-2023 Episodic Screening and history of mental health and substance abuse codes (15 sources) Ex-smoker; Translations: [Personal history of nicotine dependence] Onset: 10-22-2015 03-11-2023 Episodic Skull and face fractures (20 sources) Closed fracture of orbital floor (blow-out); Translations: [Fracture of orbital floor, unspecified side, initial encounter for closed fracture] Onset: 03-11-2023 03-11-2023 Episodic Thyroid disorders (15 sources) Sick-euthyroid syndrome; Translations: [Sick-euthyroid syndrome] Onset: 12-14-2022 12-14-2022 Episodic Unclassified (1 source) LOW BACK PAIN, UNSPECIFIED; Translations: [LOW BACK PAIN, UNSPECIFIED] Onset: 10-30-2021 Results Test Name Value Interpretation Reference Range Facility Laboratory - Hematology and Cell countson 08-28-2024 HbA1c (Bld) [Mass fraction] 6.4 % [facility] No Panel Informationon 08-28 Interpretation and review of laboratory results Abnormal [facility] [employer] e ALL BASIC METABOLIC PANELon 07-18-2024 Anion gap [Moles/Vol] 11.6 mmol/L [facility] Calcium [Mass/Vol] 9 mg/dL 8.5 - 10. 1 mg/dL [facility] Chloride [Moles/Vol] 106 mmol/L 98 - 10 7 mmol/L [facility] CO2 [Moles/Vol] 30.2 mmol/L 21.0 - 32.0 mmol/L [facility] Creatinine [Mass/Vol] 0.99 mg/dL 0.55 - 1.02 mg/dL [facility] GFR/1.73 sq M.predicted CKD-EPI (S/P/Bld) [Vol rate/Area] >60 >=60 mL/min/1.73m 2 [facility] Glucose [Mass/Vol] 132 mg/dL High 74 - 106 mg/dL [facility] Interpretation and review of laboratory results Abnormal [facility] Potassium [Moles/Vol] 3.8 mmol/L 3.5 - 5.1 mmol/L [facility] Sodium [Moles/Vol] 144 mmol/L 136 - 145 mmol/L [facility] TBH EGFR-NON AF ALBANIAN 54 Low >=60 mL/min/1.73m 2 [facility] Urea nitrogen [Mass/Vol] 15 mg/dL 7.0 - 18.0 mg/dL [facility] Urea nitrogen/Creatinine [Mass ratio] 15.2 mg/mg [facility] [employer] HbA1c (Bld) [Mass fraction]o n 04-09-2024 [facility] [employer] [facility] Laboratory - Hematology and Cell countson 04-09-2024 HbA1c (Bld) [Mass fraction] 7.0 % [facility] 36on 01-26-2023 36 Follow-up in 3 months as planned. Thanks [facility] Office Visiton 01-03-2023 Follow-up visit [id number] Cece Mobley 1945 Date Provider Department Center 01/03/2023 URI STERN CARD [facility] Family History Problem Relation Age of Onset Diabetes Father Heart disease Father Coronary artery disease Father Coronary artery disease Brother Family Status - Relation Status Age at Father Brother Level of Service:91582 IN OFFICE/OUTPATIENT ESTABLISHED LOW MDM 20-29 MIN Reason for Visit and Comments: Medication Problem [65] Normal [facility] Office Visiton 09-28-2022 Follow-up visit [id number] Cece Mobley 1945 Provider Department Center 09/28/2022 [place] CARD [facility] Family History Problem Relation Age of Onset Diabetes Father Heart disease Father Coronary artery disease Father Coronary artery disease Brother Family Status - Relation Status Age at Father Brother Level of Service:75769 IN OFFICE/OUTPATIENT ESTABLISHED LOW MDM 20-29 MIN Reason for Visit and Comments: Hypertension [301566] Normal [facility] PROF CHEM 8 (BAS METB)on Anion gap [Moles/Vol] 11.6 mmol/L Normal [facility] Comment on above: Performed By: #### B MP #### [facility] [address] [address] [address] Rose Chadwick Calcium [Mass/Vol] 9.4 mg/dL Normal 8.5-10.1 [facility] Comment on above: Performed By: #### B MP #### [facility] [address] [address] [address] Rose Chadwick Chloride [Moles/Vol] 101 mmol/L Normal 98-107 [facility] Comment on above: Performed By: #### B MP #### [facility] [address] [address] [address] Rose Chadwick CO2 [Moles/Vol] 32.6 mmol/L Critically high 21.0-32.0 [facility] Comment on above: Performed By: #### B MP #### [facility] [address] [address] [address] Rose Chadwick Creatinine [Mass/Vol] 0.86 mg/dL Normal 0.55-1.02 [facility] Comment on above: Performed By: #### B MP #### [facility] [address] [address] [address] Rose Chadwick EGFR-AF ALBANIAN >60 Normal >=60 [facility] Comment on above: Performed By: #### B MP #### [facility] [address] [address] [address] Rose Chadwick EGFR-NON AF ALBANIAN >60 Normal >=60 [facility] Comment on above: Performed By: #### B MP #### [facility] [address] [address] [address] Rose Chadwick Glucose [Mass/Vol] 108 mg/dL Critically high 74-106 [facility] Comment on above: Performed By: #### B MP #### [facility] [address] [address] [address] Rose Chadwick Potassium [Moles/Vol] 4.2 mmol/L Normal 3.5-5.1 [facility] Comment on above: Performed By: #### B MP #### [facility] [address] [address] [address] Rose Chadwick Sodium [Moles/Vol] 141 mmol/L Normal 136-145 [facility] Comment on above: Performed By: #### B MP #### [facility] [address] [address] [address] Rose Chadwick Urea nitrogen [Mass/Vol] 15.0 mg/dL Normal 7.0-18.0 [facility] Comment on above: Performed By: #### B MP #### [facility] [address] [address] [address] Rose Chadwick Urea nitrogen/Creatinine [Mass ratio] 17.4 mg/mg Normal [facility] Comment on above: Performed By: #### B MP #### [facility] [address] [address] [address] Rose Chadwick 37on 08-31-2022 37 -Obtain an arm BP monitor, Omron brand is preferred -Check blood pressure at least once daily 2-3 hours after taking medications - Stop taking Losartan -Start taking Losartan-hydrochloro thiazide -Check labs in 1 week Normal [facility] Office Visiton 08-31-2022 Follow-up visit [id number] ItzCece Enrike 1945 F Date Provider Department Center 08/31/2022 [id number] [place] [facility] Family History Problem Relation Age of Onset Diabetes Father Heart disease Father Coronary artery disease Father Coronary artery disease Brother Family Status - Relation Status Age at Father Brother Level of Service:79457 IN OFFICE/OUTPATIENT ESTABLISHED LOW MDM 20-29 MIN Reason for Visit and Comments: Hypertension [331630] Normal [facility] PROF CHEM 8 (BAS METB)on Anion gap [Moles/Vol] 11.9 mmol/L Normal [facility] Comment on above: Performed By: #### B MP #### [facility] [address] [address] [address] Rose Chadwick Calcium [Mass/Vol] 9.0 mg/dL Normal 8.5-10.1 [facility] Comment on above: Performed By: #### B MP #### [facility] [address] [address] [address] Rose Chadwick Chloride [Moles/Vol] 103 mmol/L Normal 98-107 [facility] Comment on above: Performed By: #### B MP #### [facility] [address] [address] [address] Rose Chadwick CO2 [Moles/Vol] 30.3 mmol/L Normal 21.0-32.0 [facility] Comment on above: Performed By: #### B MP #### [facility] [address] [address] [address] Rose Chadwick Creatinine [Mass/Vol] 0.84 mg/dL Normal 0.55-1.02 [facility] Comment on above: Performed By: #### B MP #### [facility] [address] [address] [address] Rose Chadwick EGFR-AF ALBANIAN >60 Normal >=60 [facility] Comment on above: Performed By: #### B MP #### [facility] [address] [address] [address] Rose Chadwick EGFR-NON AF ALBANIAN >60 Normal >=60 [facility] Comment on above: Performed By: #### B MP #### [facility] [address] [address] [address] Rose Chadwick Glucose [Mass/Vol] 119 mg/dL Critically high 74-106 [facility] Comment on above: Performed By: #### B MP #### [facility] [address] [address] [address] Rose Chadwick Potassium [Moles/Vol] 4.2 mmol/L Normal 3.5-5.1 [facility] Comment on above: Performed By: #### B MP #### [facility] [address] [address] [address] Rose Chadwick Sodium [Moles/Vol] 141 mmol/L Normal 136-145 [facility] Comment on above: Performed By: #### B MP #### [facility] [address] [address] [address] Rose Chadwick Urea nitrogen [Mass/Vol] 13.0 mg/dL Normal 7.0-18.0 [facility] Comment on above: Performed By: #### B MP #### [facility] [address] [address] [address] Rose Chadwick Urea nitrogen/Creatinine [Mass ratio] 15.5 mg/mg Normal [facility] Comment on above: Performed By: #### B MP #### [facility] [address] [address] [address] Rose Chadwick Follow-Upon 06-01-2022 Follow-Up [id number] Cece Mobley 1945 F Date Provider Department Center 06/01/2022 ANGELA CAMERON [facility] Family History Problem Relation Age of Onset Diabetes Father Heart disease Father Coronary artery disease Father Coronary artery disease Brother Family Status - Relation Status Age at Father Brother Level of Service:62422 IN OFFICE/OUTPATIENT ESTABLISHED LOW MDM 20-29 MIN Reason for Visit and Comments: Hypertension [006396] Normal [facility] PROF CHEM 8 (BAS METB)on Anion gap [Moles/Vol] 11.1 mmol/L Normal [facility] Comment on above: Performed By: #### B MP #### [facility] [address] [address] [address] Rose Chadwick Calcium [Mass/Vol] 9.0 mg/dL Normal 8.5-10.1 [facility] Comment on above: Performed By: #### B MP #### [facility] [address] [address] [address] Rose Chadwick Chloride [Moles/Vol] 103 mmol/L Normal 98-107 [facility] Comment on above: Performed By: #### B MP #### [facility] [address] [address] [address] Rose Chadwick CO2 [Moles/Vol] 29.6 mmol/L Normal 21.0-32.0 [facility] Comment on above: Performed By: #### B MP #### [facility] [address] [address] [address] Rose Chadwick Creatinine [Mass/Vol] 1.22 mg/dL Critically high 0.55-1.02 [facility] Comment on above: Performed By: #### B MP #### [facility] [address] [address] [address] Rose Chadwick EGFR-AF ALBANIAN 52 mL/min/1.73m2 Critically low >=60 [facility] Comment on above: Performed By: #### B MP #### [facility] [address] [address] [address] Rose Chadwick EGFR-NON AF ALBANIAN 43 mL/min/1.73m2 Critically low >=60 [facility] Comment on above: Performed By: #### B MP #### [facility] [address] [address] [address] Rose Chadwick Glucose [Mass/Vol] 112 mg/dL Critically high 74-106 [facility] Comment on above: Performed By: #### B MP #### [facility] [address] [address] [address] Rose Chadwick Potassium [Moles/Vol] 4.7 mmol/L Normal 3.5-5.1 [facility] Comment on above: Performed By: #### B MP #### [facility] [address] [address] [address] Rose Chadwick Sodium [Moles/Vol] 139 mmol/L Normal 136-145 [facility] Comment on above: Performed By: #### B MP #### [facility] [address] [address] [address] Rose Chadwick Urea nitrogen [Mass/Vol] 23.0 mg/dL Critically high 7.0-18.0 [facility] Comment on above: Performed By: #### B MP #### [facility] [address] [address] [address] Rose Chadwick Urea nitrogen/Creatinine [Mass ratio] 18.9 mg/mg Normal [facility] Comment on above: Performed By: #### B MP #### [facility] [address] [address] [address] Rose Chadwick 30on 05-10-2022 30 Recent [...] message. Angela Gillespie NP Division of Cardiology, [facility] Ph- [phone] Pager- [phone] Email- [email or web address] Normal [facility] Documentationon 05-10-2022 Documentation [id number] Cece Mobley 1945 F Date Provider Department Center 05/10/2022 120-ANGELA GILLESPIE [facility] Family History Problem Relation [...] med changes on voice mail message. Normal [facility] Orders Onlyon 05-10-2022 Orders Only [id number] Cece Moblye 1945 F Date Provider Department Center 05/10/2022 CA AMANDA [facility] Ama[facility] Family History Problem Relation Age of Onset Diabetes Father Heart disease Father Coronary artery disease Father Coronary artery disease Brother Family Status - Relation Status Age at Father Brother [facility] PROF CHEM 8 (BAS METB)on Anion gap [Moles/Vol] 13.4 mmol/L Normal [facility] Comment on above: Performed By: #### B MP ####[facility] [address] [address]Dr. Rose Chadwick Calcium [Mass/Vol] 9.1 mg/dL Normal 8.5-10.1 [facility] Comment on above: Performed By: #### B MP ####[facility] [address] [id number]. Rose Chadwick Chloride [Moles/Vol] 103 mmol/L Normal 98-107 [facility] Comment on above: Performed By: #### B MP ####[facility] [address] [place], [place] [address]Bp. Rose Chadwick CO2 [Moles/Vol] 28.3 mmol/L Normal 21.0-32.0 [facility] Comment on above: Performed By: #### B MP ####[facility] [address] [id number]. Rose Chadwick Creatinine [Mass/Vol] 1.42 mg/dL Critically high 0.55-1.02 [facility] Comment on above: Performed By: #### B MP ####[facility] [address] [id number]. Rose Chadwick EGFR-AF ALBANIAN 43 mL/min/1.73m2 Critically low >=60 [facility] Comment on above: Performed By: #### B MP ####[facility] [address] [id number]. Rose Farrukh EGFR-NON AF ALBANIAN 36 mL/min/1.73m2 Critically low >=60 [facility] Comment on above: Performed By: #### B MP ####[facility] [address] [id number]. Rose Chadwick Glucose [Mass/Vol] 125 mg/dL Critically high 74-106 [facility] Comment on above: Performed By: #### B MP ####[facility] [address] [id number]. Rose Chadwick Potassium [Moles/Vol] 5.7 mmol/L Critically high 3.5-5.1 [facility] Comment on above: Performed By: #### B MP ####[facility] [address] [id number]. Rose Chadwick Sodium [Moles/Vol] 139 mmol/L Normal 136-145 [facility] Comment on above: Performed By: #### B MP ####[facility] [address] [id number]. Rose Chadwick Urea nitrogen [Mass/Vol] 28.0 mg/dL Critically high 7.0-18.0 [facility] Comment on above: Performed By: #### B MP ####[facility] [address] [id number]. Rose Chadwick Urea nitrogen/Creatinine [Mass ratio] 19.7 mg/mg Normal [facility] Comment on above: Performed By: #### B MP ####[facility] [address] [id number]. Rose Chadwick Office Visiton 04-28-2022 Follow-up visit [id number] Cece Mobley 1945 Provider Department Center 04/28/2022 ANGELA CAMERON [facility] Family History Problem Relation Age of Onset Diabetes Father Heart disease Father Coronary artery disease Father Coronary artery disease Brother Family Status - Relation Status Age at Father Brother Level of Service:77042 IN OFFICE/OUTPATIENT ESTABLISHED MOD MDM 30-39 MIN Reason for Visit and Comments: Hypertension [342935] - Patient here for 3 mo follow up hypertension. Denies chest pain and SOB. Normal [facility] Abstracton 04-16-2022 Abstract [id number] Cece Mobley 1945 Provider Department Center 04/16/2022 CA AMANDA [facility] Family History Problem Relation Age of Onset Diabetes Father Heart disease Father Coronary artery disease Father Coronary artery disease Brother Family Status - Relation Status Age at Father Brother Normal [facility] POINT OF CARE GLUCOSEon 01-13 Glucose [Mass/Vol] 120 mg/dL Critically high 74-106 [facility] [place] [facility] Comment on above: Performed By: #### P OCGLUC #### [facility] [address] [address] PELVIS WO CONon [...] by: JOE MUKHERJEE Date: 2022-01-06 12:14 Normal [facility] XR DEXA BONE DENSITYon 01-04 XR [...] by: JOE MUKHERJEE Date: 2022-01-04 11:[address] [facility] [address] LSPINE WO CONon 2 CT [...] significant foramen narrowing. Electronically authenticated by: JOE UMKHERJEE Date: 2021-11-30 16:48 Normal [facility] PROF CHEM 8 (BAS METB)on Anion gap [Moles/Vol] 13.3 mmol/L Normal [facility] Comment on above: Performed By: #### B MP ####[facility] [address] [address]Dr. Karlajoni Chadwick Calcium [Mass/Vol] 8.8 mg/dL Normal 8.5-10.1 [facility] Comment on above: Performed By: #### B MP ####[facility] [address] [address]Dr. Rose Chadwick Chloride [Moles/Vol] 101 mmol/L Normal 98-107 [facility] Comment on above: Performed By: #### B MP ####[facility] [address] [address]Dr. Rose Chadwick CO2 [Moles/Vol] 29.5 mmol/L Normal 22.0-30.0 [facility] Comment on above: Performed By: #### B MP ####[facility] [address] [address]Dr. Rose Chadwick Creatinine [Mass/Vol] 0.85 mg/dL Normal 0.52-1.04 [facility] Comment on above: Performed By: #### B MP ####[facility] [address] [id number]. Rose Chadwick EGFR-AF ALBANIAN >60 Normal >=60 [facility] Comment on above: Performed By: #### B MP ####[facility] [address] [address]Dr. Rose Chadwick EGFR-NON AF ALBANIAN >60 Normal >=60 [facility] Comment on above: Performed By: #### B MP ####[facility] [address] [place], [place] [address]Dr. Rose Chadwick Glucose [Mass/Vol] 116 mg/dL Critically high 74-106 [facility] Comment on above: Performed By: #### B MP ####[facility] [address] [place], [place] [address]Dr. Rose Chadwick Potassium [Moles/Vol] 4.8 mmol/L Normal 3.4-5.0 [facility] Comment on above: Performed By: #### B MP ####[facility] [address] [place], [place] [address]Dr. Rose Chadwick Sodium [Moles/Vol] 139 mmol/L Normal 137-145 [facility] Comment on above: Performed By: #### B MP ####[facility] [address] [place], [place] [address]Dr. Rose Chadwick Urea nitrogen [Mass/Vol] 15.0 mg/dL Normal 7.0-18.0 [facility] Comment on above: Performed By: #### B MP ####[facility] [address] [place], [place] [address]Dr. Rose Chadwick Urea nitrogen/Creatinine [Mass ratio] 17.6 mg/mg Normal [facility] Comment on above: Performed By: #### B MP ####[facility] [address] [place], [place] [address]Dr. Rose Chadwick XR LSPINE MIN 4 VIEWSon [...] PATITO DE JESUS Date: 2021-10-30 15:27 Normal [facility] Vital Signs Date Time Vital Sign Value Performing Clinician Facility 08-28-2024 13:21-0500 Diastolic blood pressure 76 mm[Hg] Skye Hemmer PA Work Phone: [facility] 08-28-2024 13:21-0500 Systolic blood pressure 148 mm[Hg] Skye Hemmer PA Work Phone: [facility] 08-28-2024 13:10-0500 Body height 152.4 cm Skye Hemmer PA Work Phone: [facility] 08-28-2024 13:10-0500 Body mass index (BMI) [Ratio] 35.27 kg/m2 Skye Hemmer PA Work Phone: [facility] 08-28-2024 13:10-0500 Body weight 81.92 kg Skye Hemmer PA Work Phone: [facility] 08-28-2024 13:10-0500 Heart rate 99 /min Skye Hemmer PA Work Phone: [facility] 08-28-2024 13:10-0500 Respiratory rate 16 /min Skye Hemmer PA Work Phone: [facility] 08-28-2024 13:10-0500 SaO2% (BldA) [Mass fraction] 99 % Skye Hemmer PA Work Phone: [facility] 06-29-2024 11:41-0500 Body mass index (BMI) [Ratio] 35.9 kg/m2 [facility] 06-28-2024 15:19-0500 Body height 152.4 cm [facility] 06-28-2024 15:050 Body weight 83.46 kg [facility] 06-28-2024 15:19-0500 Diastolic blood pressure 84 mm[Hg] [facility] 06-28-2024 15:19-0500 Heart rate 87 /min [facility] 06-28-2024 15:19-0500 SaO2% (BldA) [Mass fraction] 96 % [facility] 06-28-2024 15:19-0500 Systolic blood pressure 170 mm[Hg] [facility] 04-09-2024 11:10-0400 Body mass index (BMI) [Ratio] 36.21 kg/m2 Kofi Bowers MD Work Phone: [facility] 04-09-2024 11:10-0400 Body weight 84.1 kg Kofi Bowers MD Work Phone: [facility] 04-09-2024 11:10-0400 Diastolic blood pressure 65 mm[Hg] Kofi Bowers MD Work Phone: [facility] 04-09-2024 11:10-0400 Heart rate 70 /min Kofi Bowers MD Work Phone: [facility] 04-09-2024 11:10-0400 Respiratory rate 16 /min Kofi Bowers MD Work Phone: [facility] 04-09-2024 11:10-0400 SaO2% (BldA) [Mass fraction] 93 % Kofi Bowers MD Work Phone: [facility] 04-09-2024 11:10-0400 Systolic blood pressure 115 mm[Hg] Kofi Bowers MD Work Phone: [facility] 06-27-2023 13:00-0500 Body height 154.94 cm Abdullahi Dave Other [facility] Other 06-27-2023 13:00-0500 Body mass index (BMI) [Ratio] 35.9 kg/m2 Abdullahi Acosta Other [facility] Other 06-27-2023 13:00-0500 Body weight 86.18 kg Abdullahi Acosta Other [facility] Other 06-27-2023 13:00-0500 Diastolic blood pressure 64 mm[Hg] Nishal Chaban Other [facility] Other 06-27-2023 13:00-0500 SaO2% (BldA) [Mass fraction] 97 % Kamal Chaban Other [facility] Other 06-27-2023 13:00-0500 Systolic blood pressure 131 mm[Hg] Nishal Chaban Other [facility] Other 06-28-2022 14:00-0500 Body height 154.94 cm Nishal Chaban Other [facility] Other 06-28-2022 14:00-0500 Body mass index (BMI) [Ratio] 37.22 kg/m2 Nishal Chaban Other [facility] Other 06-28-2022 14:00-0500 Body temperature 96.8 [degF] Nishal Chaban Other [facility] Other 06-28-2022 14:00-0500 Body weight 89.36 kg Nishal Chaban Other [facility] Other 06-28-2022 14:00-0500 Diastolic blood pressure 73 mm[Hg] Nishal Chaban Other [facility] Other 06-28-2022 14:00-0500 SaO2% (BldA) [Mass fraction] 97 % Nishal Chaban Other [facility] Other 06-28-2022 14:00-0500 Systolic blood pressure 143 mm[Hg] Abdullahi Acosta Other [facility] Other 07-02-2021 14:00-0500 Body height 154.94 cm Olamide Jeane Other [facility] Other 07-02-2021 14:00-0500 Body mass index (BMI) [Ratio] 35.33 kg/m2 Olamide Jeane Other [facility] Other 07-02-2021 14:00-0500 Body temperature 96 [degF] Olamide Jeane Other [facility] Other 07-02-2021 14:00-0500 Body weight 84.82 kg Olamide Jeane Other [facility] Other 07-02-2021 14:00-0500 Diastolic blood pressure 83 mm[Hg] Olamide Jeane Other [facility] Other 07-02-2021 14:00-0500 SaO2% (BldA) [Mass fraction] 97 % Olamide Jeane Other [facility] Other 07-02-2021 14:00-0500 Systolic blood pressure 176 mm[Hg] Olamide Jeane Other [facility] Other Encounters Encounter Date Encounter Type Care Provider Facility Start: 10-03-2024 End: 10-03-2024 Ko Bowers MD Work Phone: [facility] Comment on above: Failed back syndrome Start: 09-10-2024 End: 09-10-2024 ambulatory Esperanza Maya MD Facility: [facility] Start: 09-03-2024 End: 09-04-2024 Ko Bowers MD Work Phone: [facility] Comment on above: Failed back syndrome Start: 08-28-2024 End: 08-28-2024 Bamboo flowsheet Skye Goode PA Work Phone: [facility] Start: 08-28-2024 End: 08-28-2024 Bamboo flowsheet Skye Goode PA Work Phone: [facility] Start: 08-28-2024 End: 08-28-2024 Office outpatient visit 25 minutes Skye Goode PA Work Phone: [facility] Comment on above: 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); Benign essential hypertension (CMS/HCC); Morbid (severe) obesity due to excess calories (CMS/HCC); Body mass index (BMI) 35.0-35.9, adult Start: 08-28-2024 End: 08-28-2024 ambulatory SKYE GOODE Not Available Start: 08-20-2024 End: 08-20-2024 ambulatory Esperanza Maya MD Facility:[facility] Start: 08-13-2024 End: 08-13-2024 ambulatory Esperanza Maya MD Facility:[facility] Start: 08-02-2024 End: 08-02-2024 Ko Bowers MD Work Phone: [facility] Comment on above: Failed back syndrome Start: 07-30-2024 End: 07-30-2024 ambulatory Esperanza Maya MD Facility: [facility] Start: 07-23-2024 End: 07-23-2024 ambulatory Esperanza Maya MD Facility:[facility] Start: 07-18-2024 End: 07-18-2024 Clinisync Result Encounter Generic External Data Provider [facility] Unsolicited Start: 07-18-2024 End: 07-18-2024 Clinisync Result Encounter Generic External Data Provider [facility] Unsolicited Start: 07-02-2024 End: 07-02-2024 Refill Kofi Bowers MD Work Phone: [facility] Comment on above: Failed back syndrome ; Hypothyroidism, unspecified type (CMS/HCC) Start: 06-29-2024 End: 06-29-2024 ambulatory [facility] Work Phone: Start: 06-29-2024 End: 06-29-2024 Patient encounter procedure [facility] Work Phone: Start: 06-04-2024 [...] BOWERS Not Available Start: 04-04-2024 End: 04-04-2024 Refscott Bowers MD Work Phone: [facility] Comment on above: Failed back syndrome Start: 03-18-2024 End: 03-18-2024 Emergency department patient visit KOFI BOWERS [facility] Start: 01-18-2024 End: 01-18-2024 ambulatory SKYE GOODE [...] ambulatory KOFI BOWERS Not Available Start: 09-29-2023 Ko Bowers MD Work Phone: [facility] Comment on above: Failed back syndrome Start: 06-27-2023 End: 06-27-2023 ambulatory [facility] Facility:[facility] Start: 06-27-2023 Office outpatient vi sit 15 minutes [facility] Start: 06-27-2023 End: 06-27-2023 ambulatory II Kofi Robinson Work Phone: [facility] Work Phone: Start: 06-27-2023 End: 06-27-2023 Patient encounter procedure II Kofi Bowers Work Phone: [facility] Work Phone: Start: 01-18-2023 ambulatory DAVID ISAAC . Facility:[facility] Start: 01-03-2023 End: 01-03-2023 ambulatory URI CARLSON [facility] Start: 10-14-2022 End: 10-15-[address] SERENITY GARCIA . Facility:[facility] Start: 09-28-2022 End: 09-28-2022 ambulatory [facility] Start: 09-07-2022 End: 09-08-[address] DOCTOR BUENROSTRO Facility:[facility] Start: 08-31-2022 End: 08-31-2022 ambulatory [facility] Start: 08-23-2022 End: 08-24-[address] FRANKLYN GARCIA Facility:[facility] Start: 07-14-2022 End: 07-15-2022 ambulatory BETZAIDA ZIMMER . Facility:[facility] Start: 06-28-2022 Office outpatient vi sit 15 minutes Kamal [facility] Start: 06-28-2022 End: 06-28-2022 ambulatory II Kofi Bowers Work Phone: [facility] Work Phone: Start: 06-28-2022 End: 06-28-2022 Patient encounter procedure II Kofi Bowers Work Phone: [facility] Start: 06-01-2022 End: 06-01-2022 ambulatory ANGELA [facility] Start: 05-18-2022 End: 05-19-2022 ambulatory ANGELA VERNA Facility:[facility] Start: 05-05-2022 End: 05-06-2022 ambulatory ANGELA GILLESPIE Facility:[facility] Start: 04-28-2022 End: 04-28-2022 ambulatory ANGELA GILLESPIE [facility] Start: 04-08-2022 End: 04-08-[address] SERENITY GARCIA . Facility:[facility] Start: 02-10-2022 End: 02-11-[address] SERENITY GARCIA . Facility:[facility] Start: 01-26-2022 End: 01-26-[address] SERENITY GARCIA . Facility:[facility] Start: 01-06-2022 End: 01-06-[address] JOE MUKHERJEE Facility:[facility] Start: 01-04-2022 End: 01-05-[address] KOFI BOWERS Facility:[facility] Start: 12-06-2021 ambulatory KAUSHIKGALINAJewels CARROLL Faci lity:[facility] Start: 11-30-2021 End: 12-01-[address] KOFI BOWERS Facility:[facility] Start: 11-23-2021 ambulatory BETZAIDA ZIMMER . Facility:[facility] Start: 11-03-2021 End: 11-04-2021 ambulatory OLIVA CARROLL Facility:[facility] Start: 10-30-2021 End: 10-31-[address] KOFI BOWERS Facility:[facility] Start: 07-02-2021 End: 07-02-2021 ambulatory Olamide Ching Other [facility] [employer] Other Start: 07-02-2021 Office outpatient vi sit 15 minutes Olamide Ching [facility] Procedures Date Procedure Procedure [...] Visit [facility] [address] [facility] [address] [place] [id number] Kofi Bowers MD [address] [facility] [address] [place] [address] [facility] Start: 04-09-2025 Medicare Annual Wellness (AWV) Medicare Annual Wellness (AWV) [facility] Start: 04-09-2025 Urine screening for protein Diabetes: Urine Protein Screening [facility] Start: 01-17-2025 Urine screening for protein Diabetes: Urine Protein Screening [facility] Start: 11-26-2024 Hemoglobin A1c measurement Diabetes: Hemoglobin A1C [facility] Start: 08-28-2024 End: 08-28-2024 Patient encounter procedure 08/28/2024 1:00 PM EST Office Visit [facility] [address] [place] [address] [place] [address] Skye Goode PA [address] [place] [address] [place] [address] Arrived [facility] Comment on above: Arrived Start: 08-13-2024 End: 08-13-2024 Patient encounter procedure 08/13/2024 1:15 PM EST Office Visit [facility] [address] [place] [address] [place] [address] Kofi Bowers MD [address] [place] [address] [place] [address] [facility] Start: 08-09-2024 End: 08-09-2024 Patient encounter procedure 08/09/2024 1:15 PM EST Office Visit [facility] [address] [place] [address] [place] [address] Kofi Bowers MD [address] [place] [address] [place] [address] [facility] Start: 07-10-2024 Hemoglobin A1c measurement Diabetes: Hemoglobin A1C [facility] Start: 04-15-2024 Influenza vaccination Influenza Vacc ine (#1) [facility] Start: 04-09-2024 End: 04-09-2025 Microalbumin/Creatinine panel in random Urine Microalbumin / creatinine, urine ratio Lab Routine Type 2 diabetes mellitus without complication, without long-term current use of insulin ([facility]) Expected: 04/09/2024 (Approximate), Expires: 04/09/2025 [facility] Work Phone: Comment on above: Expected: 04/09/2024 (Approximate), Expires: 04/09/2025 Start: 04-09-2024 End: 04-09-2024 Patient encounter procedure [facility] Comment on above: Arrived Start: 01-27-2024 Hemoglobin A1c measurement Diabetes: Hemoglobin A1C [facility] Start: 01-04-2024 Medicare Annual Wellness (AWV) Medicare Annual Wellness (AWV) [facility] Start: 01-04-2024 Urine screening for protein Diabetes: Urine Protein Screening [facility] Start: 10-27-2023 End: 10-27-2023 Patient encounter procedure 10/27/2023 2:45 PM EDT Office Visit [facility] [address] [facility] [address] [place] [address] Kofi Bowers MD [address] [facility] [address] [place] [address] [facility] Start: 10-19-2023 Hemoglobin A1c measurement Diabetes: Hemoglobin A1C [facility] Start: 04-28-2021 Glaucoma screening Diabetes: R etinopathy Screening [facility] Start: 05-15-2014 Pneumococcal Vaccine : 65+ Years (2 of 2 - PCV) Pneumococcal Vaccine: 65+ Years (2 of 2 - PCV) [facility] Immunizations Immunization Date Immunization Notes Care Provider Fa cili 06-20-2024 ABRYSVO - Respirator y syncytial virus (RSV), vaccine, bivalent, protein subunit RSV prefusion F, diluent reconstituted, 0.5 mL, PF Skye FARIAS Work Phone: [facility] 06-20-2024 influenza, high dose seasonal, preservative-free Skye FARIAS Work Phone: [facility] 06-06-2023 Influenza, High-dose Seasonal, Quadrivalent, Preservative Free Kofi Bowers MD Work Phone: [facility] 06-06-2023 influenza virus vacc ine, unspecified formulation Kofi Bowers MD Work Phone: [facility] 05-20-2021 Influenza, injectabl e, Madin Yani Canine Kidney, preservative free, quadrivalent Kofi Bowers MD Work Phone: [facility] 09-15-2020 influenza, high dose seasonal, preservative-free Kofi Bowers MD Work Phone: [facility] 05-15-2020 Seasonal, trivalent, recombinant, injectable influenza vaccine, preservative free Kofi Bowers MD Work Phone: [facility] 06-15-2019 influenza, injectabl e, quadrivalent, preservative free Kofi Bowers MD Work Phone: [facility] 05-22-2018 influenza, injectabl e, quadrivalent, preservative free Kofi Bowers MD Work Phone: [facility] 08-02-2015 influenza, injectabl e, quadrivalent, preservative free Kofi Bowers MD Work Phone: [facility] 07-31-2015 tetanus and diphther ia toxoids, adsorbed, preservative free, for adult use (5 Lf of tetanus toxoid and 2 Lf of diphtheria toxoid) Kofi Bowers MD Work Phone: [facility] 05-15-2013 pneumococcal polysaccharide vaccine, 23 valent Kofi Bowers MD Work Phone: [facility] Payers Date Payer Category Payer Medicare [id number] 2023 Medicare (Managed Care) [facility] [id number] 2022 Medicare [id number] 2017 Medicare [id number] 1959 Medicare [id number] 1959 Medicare [id number] [address] [facility] [id number] 1959 Self-pay [id number] 1945 Unknown [id number] 1945 Unknown [id number] 1945 Unknown [id number] 1945 Unknown [id number] 1945 Unknown [id number] 2..840.1.764186.3.579.2. 593 1945 Unknown [id number] 2.16.840.1.078738.3.579.2. 593 1945 Unknown [id number] 2.16.840.1.978349.3.579.2. 593 1945 Unknown [id number] 2.16.840.1.579050.3.579.2. 593 1945 Unknown [id number] 2.16.840.1.349922.3.579.2. 593 1945 Unknown [id number] 2.16.840.1.737405.3.579.2. 593 1945 Unknown [id number] 2.16.840.1.926340.3.579.2. 593 1945 Unknown [id number] 2.16.840.1.221280.3.579.2. 593 1945 Unknown [id number] 2.16.840.1.203188.3.579.2. 593 1945 Unknown [id number] 2.16.840.1.287472.3.579.2. 593 1945 Unknown [id number] 2.16.840.1.196285.3.579.2. 593 1945 Unknown [id number] 2.16.840.1.286432.3.579.2. 593 1945 Unknown [id number] 2.16.840.1.238274.3.579.2. 593 1945 Unknown [id number] 2.16.840.1.346918.3.579.2. 593 1945 Unknown [id number] 2.16.840.1.442256.3.579.2. 1286 1945 Unknown [id number] 2.16.840.1.697550.3.579.2. 125 1945 Unknown [id number] 2.16.840.1.732803.3.579.2. 125 1945 Unknown [id number] 2.16.840.1.727624.3.579.2. 125 1945 Unknown [id number] 2.16.840.1.667563.3.579.2. 125 1945 Unknown [id number] 2.16.840.1.171393.3.579.2. 125 1945 Unknown [id number] 2.16.840.1.227613.3.579.2. 125 1945 Unknown [id number] 2.16.840.1.586522.3.579.2. 125 1945 Unknown [id number] 2.16.840.1.141354.3.579.2. 125 1945 Unknown [id number] 2.16.840.1.563086.3.579.2. 125 1945 Unknown [id number] 2.16.840.1.865207.3.579.2. 1259 1945 Unknown [id number] 2.16.840.1.912109.3.579.2. 1259 1945 Unknown [id number] 2.16.840.1.767479.3.579.2. 1259 1945 Unknown [id number] 2.16.840.1.079423.3.579.2. 196 1945 Unknown [id number] 2.16.840.1.154851.3.579.2. 196 1945 Unknown [id number] 2.16.840.1.208924.3.579.2. 196 1945 Unknown [id number] 2.16.840.1.900386.3.579.2. 196 1945 Unknown [id number] 2.16.840.1.172159.3.579.2. 196 Medicare Medicare [id number] Medicare Medicare [id number] Unknown Kaden MART/CHARLIE [id number] Unknown [id number] 2.16.840.1.892620.3.579.2. 531 Social History Date Type Detail Facility Unknown if ever smoked [facility] Other Start: 06-15-2018 End: 03-11-2023 Tobacco smoking status RIIS Ex-smoker (finding) [facility] Start: 1945 Sex Assigned At Female F [facility] Start: 07-20-2023 End: 04-09-2024 Sex Assigned At [email or web address] Other End: 08-15-1999 History of tobacco use Current smoker [facility] End: 08-15-1999 History of tobacco use Cigarette Smoker [facility] Start: 03-11-2023 Tobacco use and exposure Smokeless tobacco non-user [facility] Start: 07-20-2023 End: 08-28-2024 Alcohol intake Ex-drinker (finding) [facility] Start: 07-20-2023 End: 04-09-2024 History of Social function [facility] Start: 12-17-2022 Alcohol Comment Caffeine: 1-2 cups per day; none soda/pop [facility] Start: 1945 Sex Assigned At Not on file [facility] Start: 06-29-2024 Sex Female (finding) [facility] Clinical Notes 11-03-2021 to 10-03-2024 Telephone Encounter - DINORA Lopez - 10/03/2024 1:36 PM ESTTelephone Encounter - DINORA Lopez - 10/03/2024 1:36 PM ESTTelephone Encounter - Chelle Guallpa - 10/03/2024 11:19 AM EST Note Date & Type Note Facility 10-03-2024 Telephone encount er Note OARRS reviewed, Rx sent into patient's pharmacy. [facility] 10-03-2024 Miscellaneous Notes Formattin g of this note might be different from the original. [facility]ARRS reviewed, Rx sent into patient's pharmacy. traMADol (Ultram) [facility] [address] [facility] [place] She is calling a day early because [facility] fill it. documented in this encounter [facility] 10-03-2024 Telephone encount er Note traMADol (Ultram) [facility] [place] She is calling a day early because [facility] to fill it. [facility] 09-03-2024 Telephone encount er Note traMADol (Ultram) 50 MG tablet to drug sarah glez [facility] 09-03-2024 Miscellaneous Notes Formattin g of this note might be different from the original. traMADol (Ultram) 50 MG tablet to drug sarah glez documented in this encounter [facility] 08-28-2024 History of Presen t illness Narrative Images from the original note were not included. HPI Insomnia Additional comments: Pt states she had a bone stimulator placement surgery on 08/13/24 at [facility] and she is actually sleeping better at [...] the evening. cholecalciferol (Vitamin D-3) 1.25 MG (78589 UT) tablet Vitamin D3 5000IU furosemide (Lasix) 40 MG tablet TAKE 1 TABLET (40 MG) BY MOUTH IN THE MORNING. 30 tablet 10 insulin detemir (Levemir FlexTouch) 100 UNIT/ML pen INJECT 60 UNITS SUBCUTANEOUSLY EACH MORNING for 25 liothyronine (Cytomel) 25 MCG tablet 0.5 tablet on an empty stomach Orally two times daily. D.A.W. as Sigma or CureVac Brand ONLY for 90 days 200 tablet [...] COVID-19 03/2021 Deviated nasal septum Diabetes mellitus (CMS/HCC) Encounter for diabetic foot exam (CMS/[facility]) Family history of colon cancer Brother Fracture Rt orbital fracture, LUCIUS elbow fracture - shipped to [facility] 07/31/15. GERD (gastroesophageal reflux disease) History of being hospitalized 07/2015 [facility] - Post fall -rt orbital fx, LUCIUS [...] Medicare Wellness Visit. documented in this encounter [facility] 08-02-2024 Telephone encount er Note traMADol (Ultram) [address] [facility] [place] [facility] 08-02-2024 Miscellaneous Notes Formattin g of this note might be different from the original. traMADol (Ultram) [address] [facility] [place] documented in this encounter [facility] 07-02-2024 Telephone encount er Note traMADol (Ultram) 50 MG tablet liothyronine (Cytomel) 25 MCG tablet Ddm in [place] [facility] 07-02-2024 Miscellaneous Notes Formattin g of this note might be different from the original. traMADol (Ultram) 50 MG tablet liothyronine (Cytomel) 25 MCG tablet Ddm in [place] documented in this encounter [facility] 06-04-2024 Telephone encount er Note OARRS reviewed, Rx sent into patient's pharmacy. [facility] 06-04-2024 Miscellaneous Notes Formattin g of this note might be different from the original. OARRS reviewed, Rx sent into patient's pharmacy. traMADol (Ultram) 50 MG tablet Ddm in [place] documented in this encounter [facility] 06-04-2024 Telephone encount er Note traMADol (Ultram) 50 MG tablet Ddm in [place] [facility] 05-07-2024 Telephone encount er Note traMADol (Ultram) 50 MG tablet Ddm in [place] [facility] 05-07-2024 Miscellaneous Notes Formattin g of this note might be different from the original. traMADol (Ultram) 50 MG tablet Ddm in [place] documented in this encounter [facility] 04-09-2024 History of Presen t illness [...] same time. cholecalciferol (Vitamin D-3) 1.25 MG (68294 UT) tablet Vitamin D3 5000IU furosemide (Lasix) 40 MG tablet TAKE 1 TABLET (40 MG) BY MOUTH IN THE MORNING. 30 tablet 10 insulin detemir (Levemir FlexTouch) 100 UNIT/ML pen INJECT 60 UNITS SUBCUTANEOUSLY EACH MORNING for 25 liothyronine (Cytomel) 25 MCG tablet 0.5 tablet on an empty stomach Orally two times daily. D.A.W. as [employer] or CureVac Brand ONLY for 90 days 200 tablet [...] Do you have a medical power of trailer mechanic?: Yes Who is your medical power of trailer mechanic?: her son Objective : BP 115/65 Pulse [...] a living will and durable power of trailer mechanic for healthcare. We discussed telling ortiz people [...] complication, without long-term current use of insulin ([facility]) - POCT glycosylated hemoglobin (Hb A1C) docked device - Microalbumin / creatinine, urine ratio; Future Morbid (severe) obesity due to excess calories ([facility]) Essential (primary) hypertension ([facility]) Body mass index (BMI) 35.0-35.9, adult Peripheral vascular disease, unspecified ([facility]) Iliopsoas bursitis of right hip - naproxen [...] April 09, 2024 documented in this encounter [facility] 04-04-2024 Telephone encount er Note OARRS reviewed, Rx sent into patient's pharmacy. [facility] 08-21-2024 Miscellaneous Notes Formattin g of this note might be different from the original. OARRS reviewed, Rx sent into patient's pharmacy. traMADol (Ultram) 50 MG tablet DDM IN [place] documented in this encounter [facility] 04-04-2024 Telephone encount er Note traMADol (Ultram) 50 MG tablet DDM IN [place] [facility] 09-29-2023 Telephone encount er Note OARRS reviewed, Rx sent into patient's pharmacy. [facility] 09-29-2023 Miscellaneous Notes Formattin g of this note might be different from the original. OARRS reviewed, Rx sent into patient's pharmacy. documented in this encounter [facility] 06-27-2023 Evaluation note Encounter Date Diagnosis Assessment Notes Jun, Obstructive sleep apnea (ICD-10 - G47.33) Jun, Chronic insomnia (ICD-10 - F51.04) [facility] Other 05-22-2023 NotePatient is here today to discuss medication Review of Systems Musculoskeletal: Positive for arthritis and back pain. All other systems reviewed and are negative.[facility] 01-03-2023 NoteCardiovascular Medicine [facility] SUBJECTIVE Chief Complaint Patient presents with [...] BID. She will be driving down to [place] this weekend for her high school reunion. [...] Diagnosis Closed fracture of orbital floor (blow-out) ([facility]/HCC) Epiphora Fracture of orbit (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 [facility]03-02-2023 NoteCONSULTATION CONSULTATION DATE: 10/14/2022 HISTORY: [...] unless otherwise indicated. Patient is in agreement.[id number] NoteCardiology Clinic Note Subjective Cece Mobley is [...] BUN 13, creatinine 0.84, (more content not included)...[facility]02-14-2023 NotePatient here for 1 mo follow up hypertension and medication changes. She was started on hydrochlorothiazide and losartan was increased back up to 100mg daily. She had BMP on 09/07. Review of Systems Musculoskeletal: Positive for back pain. All other systems reviewed and are negative.[facility] 08-31-2022 NotebloUnPremier Health [facility]01-17-2023 NotePatient here for 3 mo [...] Systems All other systems reviewed and are negative.[facility] 08-31-2022 NoteCardiology Clinic Note Subjective [...] 119, BUN 13, creatinine (more content not included)...[facility] 07-14-2022 NoteCONSULTATION CONSULTATION DATE: 07/14/2022 [...] in three months' time unless otherwise indicated.[facility] [id number] Evaluation note* Encounter Date Diagnosis Assessment Notes [...] potential side effects were all discussed today [facility] Other 10-18-2022 NoteContinue to wear cpapUnPremier Health Upper Valley Medical Center10-18-2022 NoteContinue amlodipine 10 mg daily- she recently ran out of 10 mg and this morning took 5 mg tablet she had from previous script. Continue coreg 25 mg bid, lasix 40 mg daily, losartan 50 mg daily and hydralazine 50 mg po bid.[facility]10-18-2022 Note Subjective Cece Mobley is [...] Lab Review: Assessment/Plan There were no encounter diagnoses.[facility]10-18-2022 NoteHPI: Cece Mobley is a [...] 3 months with repeat BMP for renal functionUnPremier Health [facility] Center09-26-2022 NoteI spoke with patient and informed her of medication changes per Veronica Gillespie CNP. RX sent to [facility] and BMP faxed to [facility]. Patient verbalized understanding. [facility]09-14-2022 NoteF/U with PCP for further managementUnPremier Health [facility]09-14-2022 NoteHypertension remains uncontrolled, will add [...] BUN 15, CR 0.85 normal K+ 4.8 normalUnPremier Health [facility] Valley [facility] Center09-14-2022 NoteAdded in error and don't know how to get rid of itUnPremier [facility]08-25-2022 NoteCONSULTATION CONSULTATION DATE: 04/08/2022 HISTORY [...] in the office post procedure in May.[facility] [id number] NoteCONSULTATION CONSULTATION DATE: 02/10/2022 HISTORY OF PRESENT [...] plan of care and all questions answered. [facility] Signed and Approved by: BETZAIDA ZIMMER . 02/11/2022 13:38:00[facility]03-22-2022 NoteCONSULTATION PAIN MANAGEMENT CONSULTATION CHIEF COMPLAINT: [...] had three nerves released by Dr. Branch, cleaner greaser, in 2002. She states the pain has [...] would like to proceed. CC: Dr. Bowers [facility] Signed and Approved by: DR SERENITY GARCIA . 11/17/2021 11:24:00[facility] HospitalEvaluation noteNort [place] Other Evaluation noteNo assessment information available [facility] Work Phone: Evaluation note* Diagnosis Failed back syndrome Other unspecified back disorder [facility] Diagnosis Failed back syndrome Other unspecified back disorder documented in this encounter [facility]* Diagnosis Onset Date Resolution Status Admit Date Chronic insomnia acute June 29, 2024 11:30am MANOLO (obstructive sleep apnea) acute June 29, 2024 11:30am [facility] Work Phone: Evaluation note* Diagnosis Failed back syndrome Other unspecified back disorder Hypothyroidism, unspecified type (CMS/HCC) documented in this encounter [facility]* Diagnosis Failed back syndrome Other unspecified back disorder documented in this encounter [facility]* Diagnosis Routine general medical examination [...] of right hip documented in this encounter [facility]* Diagnosis Failed back syndrome Other unspecified back disorder documented in this encounter [facility]* Diagnosis 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)- Primary Benign essential hypertension (CMS/HCC) Essential hypertension, benign Morbid (severe) obesity due to excess calories (CMS/HCC) Body mass index (BMI) 35.0-35.9, adult documented in this encounter [facility]* Diagnosis Failed back syndrome Other unspecified back disorder documented in this encounter [facility] HealthcareHistory general Narrative - ReportedNort [place] Other History general Narrative - Reported* Type Description Date Medical History HTN Medical History DM2 Medical History Osteoporosis Medical History Neuropathy Medical History hyperlipedemia Medical History Hot Flashes/Sweats Medical History copd Medical History MANOLO (obstructive sleep apnea) Surgical History Back surgery x 2 Surgical History JORGE 1992 Surgical History cholecystectomy 1977 Surgical History septoplasty 1969 Surgical History cataract surgery Surgical History eyes surgery Surgical History facial cosmetic surgery Surgical History HYSTERECTOMY Surgical History tonsillectomy Hospitalization History Heart Attack 2012 Hospitalization History see above [facility] Other Chief Complaint and Reason for Visit [...] Active Abdullahi Acosta MD Attending Provider Active Cotton Ginner Helper Relationship Specialty Start Date End Date Kofi Bowers MD [address] [facility] [address] [place] [address] PCP - General Internal Medicine 12/22/22 Cotton Ginner Helper Relationship Specialty Start Date End Date Kofi Bowers MD [address] [facility] [address] [place] [address] PCP - General Internal Medicine 12/22/22 Team Status: Inactive Member Role Status Dates Kofi Bowers II MD Primary Care Provider Active Start: June 29, 2024 End: June 29, 2024 Myra Sales APRN [facility] Attending Provider Active Start: June 29, 2024 End: June 29, 2024 Cotton Ginner Helper Relationship Specialty Start Date End Date Kofi Bowers MD [address] [facility] [address] [place] [address] PCP - General Internal Medicine 12/22/22 Cotton Ginner Helper Relationship Specialty Start Date End Date Kofi Bowers MD [address] [facility] [address] [place] [address] PCP - General Internal Medicine 12/22/22 Cotton Ginner Helper Relationship Specialty Start Date End Date Kofi Bowers MD [address] [facility] [address] [place] [address] PCP - General Internal Medicine 12/22/22 Cotton Ginner Helper Relationship Specialty Start Date End Date Kofi Bowers MD [address] [facility] [address] [place] [address] PCP - General Internal Medicine 12/22/22 Cotton Ginner Helper Relationship Specialty Start Date End Date Kofi Bowers MD [address] [facility] [address] [place] [address] PCP - General Internal Medicine 12/22/22 Cotton Ginner Helper Relationship Specialty Start Date End Date Kofi Bowers MD [address] [facility] [address] [place] [address] PCP - General Internal Medicine 12/22/22 Cotton Ginner Helper Relationship Specialty Start Date End Date Kofi Bowers MD [address] [facility] [address] [place] [address] PCP - General Internal Medicine 12/22/22 Goals [...] bone stimulator placement surgery on 08/13/24 at [facility] and she is actually sleeping better at night. Reason Onset Date Comments Med Refill 10/03/2024 INFORMATION SOURCE (unrecogn ized section and content) DATE CREATED AUTHOR 10/19/2022 [facility] DATE CREATED AUTHOR AUTHOR'S ORGANIZ ATION 01/27/2023 [facility] DATE CREATED AUTHOR AUTHOR'S ORGANIZ ATION 09/23/2023 [facility] DATE CREATED AUTHOR AUTHOR'S ORGANIZ ATION 03/20/2024 [facility] DATE CREATED AUTHOR AUTHOR'S ORGANIZ ATION 08/31/2024 [facility] DATE CREATED AUTHOR AUTHOR'S ORGANIZ ATION 09/16/2024 [facility] FOR RECORDS PERTAINING TO PATIENTS WHO [...] BE BASED ON THE PRIMARY CLINICAL RECORDS. [employer] [facility]. provides no warranty or guarantee of the accuracy or completeness of information in this document.
== END 2024-10-29 11:22 | disposition home or self-care (01) ==
LOC: PM 11:22
PROVIDERS: PCP Internal Medicine; Visit Provider Anesthesiology
DX: G89.4 Chronic pain syndrome (principal); Z96.82 Presence of neurostimulator; M79.18 Myalgia, other site
CPT/HCPCS: G0463

== ENCOUNTER 2025-01-24 10:09 | Outpatient (OUT) | payer MEDICARE, SELFPAY ==
--- OUTSIDE RECORDS SUMMARY | 2025-01-24 10:12 | XMS_ITS | Encounter Summary ---
Author Organization [facility] Address [address] [facility] [place] [address] Care Team Providers Care Director Of Healthcare Systems Name Role Phone Kofi Bowers MD Primary Care Provider [phone] Encounter Details Date Type Department Care Team ([facility] Contact Info) Description 04/11/2024 Abstract [facility] [address] [facility] [address] [place] [id number] Kofi Bowers MD 112 [facility] [address] [place], [place] [id number] Social History Tobacco Use Types Packs/Day Years Used Date Smoking Tobacco: Former Cigarettes Q uit: 08/15/1999 Smokeless Tobacco: Never Alcohol Use Standard Drinks/Week Comments Not Currently 0 (1 standard drink = 0.6 oz pure alcohol) Caffeine: 1-2 cups per day; none soda/pop PHQ-2 Answer Date Recorded Patient Health Questionnaire-2 Score 0 04/09/2024 Comments Unknown Sex and Gender Information Value Date Recorded Sex Assigned at Not on file Legal Sex Female 6:38 PM EDT Gender Identity Not on file Sexual Orientation Not on file documented as of this encounter Plan of Treatment Upcoming Encounters Date Type Department Care Team (Late Contact Info) Description 04/17/2025 11:00 AM EDT Office Visit [facility] [address] [facility] [address] [place] [id number] Kofi Bowers MD 112 [facility] [address] [place] [address] documented as of this encounter Visit Diagnoses Not on filedocumented in this encounter Additional Health Concerns Assessment Noted Time PHQ-9 Depression Total Score: 3 04/09/20 24 10:00 AM EDT documented as of this encounter Care Teams Director Of Healthcare Systems Relationship Specialty Start Date End Date Kofi Bowers MD [address] [address] PCP - General Internal Medicine 12/22/22 documented as of this encounter
--- OUTSIDE RECORDS SUMMARY | 2025-01-24 10:12 | XMS_ITS | Clinical Summary ---
Author Organization [facility] Address [address] [place] [address] Care Team Providers Care Supercalender Operator Helper Name Role Phone Kofi Bowers MD Primary Care Provider [phone] Allergies Active Allergy Reactions Criticality Noted Date Comments Iodine Anaphylaxis High 04/08/2022 Levofloxacin 04/08/2022 Pregabalin Dizziness,Unknown 02/24/2021 Shellfish Containing Products Swelling 2013 Medications acarbose (Precose) 100 mg tablet Take 1 tablet by mouth in the morning and at bedtime. Active aspirin 81 mg EC tablet Take 1 tablet every day by oral route. Active baclofen (Lioresal) 10 mg tablet Take 1 tablet by mouth at bedtime. Active carvedilol (Coreg) 25 mg tablet Take 1 tablet by mouth in the morning and at bedtime. 02/06/20 22 Active dulaglutide (Trulicity) 4.5 mg/0.5 mL pen injector INJECT 1 PEN SUBCUTANEOUSLY ONCE WEEKLY Active furosemide (Lasix) 40 mg tablet Take 1 tablet by mouth in the morning. Active insulin detemir (Levemir FlexTouch U-100 Insuln) 100 unit/mL (3 mL) pen INJECT 60 UNITS SUBCUTANEOUSLY IN THE MORNING Active liothyronine (Cytomel) 25 mcg tablet TAKE 1/2 (ONE-HALF) OF A TABLET BY MOUTH TWICE DAILY ON AN EMPTY STOMACH Active lovastatin (Mevacor) 20 mg tablet Take 1 tablet by mouth at bedtime. Active metFORMIN (Glucophage) 1,000 mg tablet Take 1 tablet by mouth with breakfast and with evening meal. Active naproxen (Naprosyn) 500 mg tablet Take 1 tablet by mouth if needed in the morning and at bedtime. Active omeprazole (PriLOSEC) [address] capsule Take 1 capsule by mouth in the morning. Active potassium chloride CR (Klor-Con M20) 20 mEq ER tablet Take 1 tablet by mouth in the morning. Active QUEtiapine (SEROquel) 50 mg tablet Take 1 tablet by mouth in the morning. Active traMADol (Ultram) 50 mg tablet Take 2 tablets by mouth in the morning and at bedtime. Active hydrALAZINE (Apresoline) 50 mg tabletIndication s:Essential hypertension Take 1 tablet (50 mg) by mouth in the morning and at bedtime. 60 tablet 11 05/10/20 22 Active amLODIPine (Norvasc) 10 mg tabletIndication s:Essential hypertension Take 1 tablet (10 mg) by mouth in the morning. 90 tablet 3 06/01/20 22 Active losartan-hydroch lorothiazide (Hyzaar) 100-25 mg tabletIndication s:Essential hypertension Take 1 tablet by mouth in the morning. 30 tablet 11 08/31/19 23 Active blood pressure test kit-large kitIndications:E ssential hypertension 1 kit in the morning. 1 kit 08/31/19 23 Active Active Problems Problem Noted Date Diagnosed Date Venous hypertension of lower extremity 3 Trigger thumb, left thumb 12/14/2022 Osteopenia 12/14/2022 Failed back syndrome 12/14/2022 Decreased estrogen level 12/14/2022 Adenomatous polyp of ascending colon 12/14/2022 MANOLO (obstructive sleep apnea) 04/28/2022 Assessment & Plan (06/01/2022 2:23 PM EDT): Continue to wear cpap Assessment & Plan (04/28/2022 2:06 PM EDT): F/U with PCP for further management Closed fracture of orbital floor (blow-out) 03/16 Epiphora 04/08/2022 Fracture of orbit 04/08/2022 Fracture of radial neck 04/08/2022 Pain in elbow 04/08/2022 Hypertensive disorder 08/13/2021 Assessment & Plan (06/01/2022 2:21 PM EDT): Continue amlodipine 10 mg daily- she recently ran out of 10 mg and this morning took 5 mg tablet she had from previous script. Continue coreg 25 mg bid, lasix 40 mg daily, losartan 50 mg daily and hydralazine 50 mg po bid. Assessment & Plan (04/28/2022 2:05 PM EDT): Hypertension remains uncontrolled, will add aldactone 25 mg [...] BUN 15, CR 0.85 normal K+ 4.8 normal Acquired trigger finger 01/15/2021 Non-seasonal allergic rhinitis 09/08/2020 Vitreous floaters of both eyes 04/29/2020 Diabetic retinopathy associa chad with controlled type 2 diabetes mellitus 04/29/2020 Continuous positive airway pressure dependent Failed back syndrome 07/18/2018 Benign neoplasm of colon 06/27/2018 History of colonic polyps 06/01/2018 Family history of malignant neoplasm of gastrointestinal tract 06/01/2018 Lipoprotein deficiency disorder 05/01/2018 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 01/28/2016 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 Ex-smoker 10/22/2015 History of fall 10/02/2015 Disability of walking 10/02/2015 Insomnia 06/10/2015 Mixed hyperlipidemia 06/10/2015 GERD (gastroesophageal reflux disease) 5 ESS (euthyroid sick syndrome) 06/10/2015 Type 2 diabetes mellitus with hyperglycemia 05/16 Chronic pain syndrome 06/10/2015 Chronic fatigue 06/10/2015 Benign essential hypertension 06/10/2015 Osteopenia 06/10/2015 Peripheral venous insufficiency 05/15/2015 Diabetic polyneuropathy asso ciated with type 2 diabetes mellitus 08/15/2014 Obesity 01/24/2014 Diabetes 01/24/2014 Polyneuropathy 01/24/2014 Immunizations Immunization Administration Dates Next Due Influenza, High Dose Seasonal, Preservative Free 09/15/2020,05/15/2020 Influenza, injectable, MDCK, preservative free, quadrivalent 05/20/2021 Influenza, injectable, quadrivalent, preservativ e free 06/15/2019,05/22/2018 Influenza, seasonal, injectable 05/28/2019 Unspecified Sars-Cov-2 Vaccination 10/01/2020, Family History Medical History Relation Name Comments Coronary artery disease Brother Coronary artery disease Father Diabetes Father Heart disease Father Relation Name Status Comments Brother Father Social History Tobacco Use Types Packs/Day Years Used Date Smoking Tobacco: Former Cigarettes Q uit: 2000 Smokeless Tobacco: Never Tobacco Cessation:Counseling Given: Not Answered Alcohol Use Standard Drinks/Week Comments Never 0 (1 standard drink = 0.6 oz pur e alcohol) [place] Safety & Environment Answer Date Rec orded Fear of Current or Ex-Partner Not on file Emotionally Abused Not on file 10/06/2023 Physically Abused Not on file 10/06/2023 Sexually Abused Not on file 10/06/2023 Physically or Sexually Abused Not on file Comments Unknown Sex and Gender Information Value Date Recorded Sex Assigned at Not on file Legal Sex Female 11:38 PM EDT Gender Identity Not on file Sexual Orientation Not on file Last Filed Vital Signs Vital Sign Reading Time Taken Comments Blood Pressure 134/78 01/03/2023 11:10 AM EDT Pulse 72 01/03/2023 11:10 AM EDT Temperature - - Respiratory Rate - - Oxygen Saturation 98% 01/03/2023 11:10 AM EDT Inhaled Oxygen Concentration - - Weight 85.9 kg (189 lb 6.4 oz) 01/03/2023 11:10 AM EDT Height 152.4 cm (5') 01/03/2023 11:10 AM EDT Body Mass Index 36.99 01/03/2023 11:10 AM EDT Plan of Treatment Health Maintenance Due Date Last Done Comments Diabetes: Hemoglobin A1C 1945 Medicare Annual Wellness (AWV) 1945 Diabetes: Retinopathy Screening 1955 Depression Screening 1957 Fall Risk Screening 2010 Pneumococcal Vaccine: 50+ Years (2 of 2 - PCV) 05/15/2014 05/15/2013 Diabetes: Urine Protein Screening 04/02/2020 04/02/2019, 01/19/2018, 10/28/2016, Additional history exists Zoster Vaccines (2 of 2) 10/18/2022 08/23/2022 COVID-19 Vaccine ( season) 2024 10/01/2020, 09/10/2020 Influenza Vaccine (Season Ended) 2025 05/20/2021, 09/15/2020, 05/15/2020, Additional history exists Adult Tetanus 07/31/2025 07/31/2015 HIB Vaccines Aged Out No longer eligi ble based on patient's age to complete this topic HPV Vaccines Aged Out No longer eligi ble based on patient's age to complete this topic IPV Vaccines Aged Out No longer eligi ble based on patient's age to complete this topic Meningococcal B Vaccine Aged Out No l onger eligible based on patient's age to complete this topic Meningococcal Vaccine Aged Out No nitin danielle eligible based on patient's age to complete this topic Rotavirus Vaccines Aged Out No longer eligible based on patient's age to complete this topic Insurance [employer] MEDICARE Care Teams Supercalender Operator Helper Relationship Specialty Start Date End Date Kofi Bowers MD [address] [facility] [address] [place], [place] [id number] PCP - General 04/07/22
--- OUTSIDE RECORDS SUMMARY | 2025-01-24 10:12 | XMS_ITS | Referral Summary ---
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
--- OUTSIDE RECORDS SUMMARY | 2025-01-24 10:12 | XMS_ITS | Encounter Summary ---
Author Organization [facility] Address [address] [facility] [place] [address] Care Team Providers Care Parts Remover Name Role Phone Kofi Bowers MD Primary Care Provider [phone] Encounter Details Date Type Department Care Team ([facility] Contact Info) Description 06/29/2024 Abstract [facility] [address] [facility] [address] [place] [phone] Kofi Bowers MD 112 [facility] [address] [place], [place] [phone] Social History Tobacco Use Types Packs/Day Years [...] Office Visit [facility] [address] [facility] [address] [place] [phone] Kofi Bowers MD 112 [facility] [address] [place] [address] documented as of this encounter Visit Diagnoses Not on filedocumented in this encounter Additional Health Concerns Assessment Noted Time PHQ-9 Depression Total Score: 3 04/09/20 24 10:00 AM EDT documented as of this encounter Care Teams Parts Remover Relationship Specialty Start Date End Date Kofi Bowers MD [address] [address] PCP - General Internal Medicine 12/22/22 documented as of this encounter
--- OUTSIDE RECORDS SUMMARY | 2025-01-24 10:12 | XMS_ITS | Encounter Summary ---
Author Organization [facility] Address [address] [facility] [place] [address] Care Team Providers Care Floor Associate Name Role Phone Kofi Bowers MD Primary Care Provider [phone] Encounter Details Date Type Department Care Team ([facility] Contact Info) Description 07/19/2024 Abstract [facility] [address] [facility] [address] [place] [phone] Kofi Bowers MD 112 [facility] [address] [place] [address] Social History Tobacco Use Types Packs/Day Years [...] Office Visit [facility] [address] [facility] [address] [place] [phone] Kofi Bowers MD 112 [facility] [address] [place] [address] documented as of this encounter Visit Diagnoses Not on filedocumented in this encounter Additional Health Concerns Assessment Noted Time PHQ-9 Depression Total Score: 3 04/09/20 24 10:00 AM EDT documented as of this encounter Care Teams Floor Associate Relationship Specialty Start Date End Date Kofi Bowers MD [address] [address] PCP - General Internal Medicine 12/22/22 documented as of this encounter
--- OUTSIDE RECORDS SUMMARY | 2025-01-24 10:12 | XMS_ITS | Encounter Summary ---
Author Organization [facility] Address [address] [facility] [address] Care Team Providers Care Brake Holder Name Role Phone Kofi Bowers MD Primary Care Provider Encounter Details Date Type Department Care Team ([facility] Contact Info) Description 12/17/2022 Abstract [facility] [address] [facility] [address] [place] [phone] Kofi Bowers MD 112 [facility] 110 [place] [address] Social History Tobacco Use Types Packs/Day Years Used Date Smoking Tobacco: Former Cigarettes Q uit: 08/15/1999 Tobacco Cessation:Counseling Given: Not Answered Alcohol Use Standard Drinks/Week Comments Not Asked 0 (1 standard drink = 0.6 oz pure alcohol) Caffeine: 1-2 cups per day; none soda/pop Comments Unknown Sex and Gender Information Value Date Recorded Sex Assigned at Not on file Legal Sex Female 6:38 PM EDT Gender Identity Not on file Sexual Orientation Not on file documented as of this encounter Plan of Treatment Upcoming Encounters Date Type Department Care Team ([facility] Contact Info) Description 04/17/2025 11:00 AM EDT Office Visit [facility] [address] [facility] [address] [place] [address] Kofi Bowers MD 112 [facility] [address] [place] [address] documented as of this encounter Visit Diagnoses Not on filedocumented in this encounter Care Teams Brake Holder Relationship Specialty Start Date End Date Kofi Bowers MD 112 [facility] [address] [place] [address] PCP - General Internal Medicine 12/22/22 documented as of this encounter
--- OUTSIDE RECORDS SUMMARY | 2025-01-24 10:12 | XMS_ITS | Encounter Summary ---
Author Organization [facility] Address [address] [place] [address] Care Team Providers Care Elevator Repairer Helper Name Role Phone Kofi Bowers MD Primary Care Provider [phone] Encounter Details Date Type Department Care Team (Late st Contact Info) Description 05/25/2024 Clinisync Result Encounter [facility] External Department Unsolicited Provider, Generic External Data Social History Tobacco Use Types Packs/Day Years [...] Encounters Date Type Department Care Team (Late st Contact Info) Description 04/17/2025 11:00 AM EDT Office Visit [facility] [address] [facility] 110 [place] [address] Kofi Bowers MD [address] [facility] 110 [place] [address] documented as of this encounter Procedures Procedure Name Priority Date/Time Associated Diagnosis Comments CT THORACIC SPINE WO IV CONTRAST 05/25/2024 9:00 AM EDT documented in this encounter Results * CT thoracic spine wo IV contrast (05/25/2024 9:00 AM EDT) Anatomical Region Laterality Modality Spine, T-spine Computed Tomogra phy 05/25/2024 9:00 AM EDT Narrative 05/25/2024 9:03 [place] [address] CT Scan Report Signed Patient: KONRAD MOBLEY MR#: [id number] : 1945 Acct:[id number] Age/Sex: 79 / F ADM Date: 05/24/24 Loc: CT Attending Dr: Esperanza Maya M.D. Ordering Physician: Esperanza Maya M.D. Date of Service: 05/24/24 Procedure(s): CT thoracic spine wo con Accession Number(s): [id number] cc: KOFI BOWERS [place] [address] Patient Name: KONRAD MOBLEY MRN: [id number] date: 1945 Sex: F Assigned Patient Location: CT Current Patient Location: Accession/Order Number: [id number] Exam Date: 05/24/2024 13:23 Report Date: 05/25/2024 09:00 At the request of: ESPERANZA MAYA Procedure: CT thoracic spine wo con EXAMINATION: CT thoracic spine wo con, CT lumbar spine wo con HISTORY: Low Back Pain Syndrome COMPARISON: No relevant comparison available. FINDINGS: BONES: Normal alignment of the thoracic and lumbar vertebral bodies with no spondylolisthesis. Mild anterior wedging of the T7 vertebral body, endplate sclerosis suggests chronic change Severe degenerative spondylosis. Moderate diffuse facet osteoarthropathy. Posterior decompression bilateral transpedicular fusion L3-S1 with no mechanical failure DISC SPACES: Moderate to severe multilevel disc space narrowing with endplate sclerosis and vacuum disks. Interbody spacer L5-S1 PARASPINOUS: Negative. No paraspinous abnormality is seen. OTHER: Extensive atherosclerosis CT/CT thoracic spine wo con IMPRESSION: Moderate to severe diffuse degenerative changes Anterior wedge compression fracture of T7 likely chronic Lumbosacral fusion with no mechanical failure Electronically authenticated by: PATITO DE JESUS Date: 05/25/2024 09:00 Dictated By: Patito De Jesus M.D. Signed By: 05/25/24902 DD/ 9 TD/TT: Doll Repairer: Procedure Note Radiology, Radiologist, - 05/28/2024 [place] [address] CT Scan Report Signed Patient: KONRAD MOBLEY GMR#: [id number] : 5Acct:[id number] Age/Sex: 79 / FADM Date: 05/24/24 Loc: CT Attending Dr: Esperanza Maya M.D. Ordering Physician: Esperanza Maya M.D. Date of Service: 05/24/24 Procedure(s): CT thoracic spine wo con Accession Number(s): [id number] cc: KOFI BOWERS [place] [address] Patient Name: KONRAD MOBLEY MRN: [facility]:[id number] date: 1945 Sex: F Assigned Patient Location: CT Current Patient Location: Accession/Order Number: [id number] Exam Date: 05/24/2024 13:23 Report Date: 05/25/2024 09:00 At the request of: ESPERANZA MAYA Procedure: CT thoracic spine wo con EXAMINATION: CT thoracic spine wo con, CT lumbar spine wo con HISTORY: Low Back Pain Syndrome COMPARISON: No relevant comparison available. FINDINGS: BONES: Normal alignment of the thoracic and lumbar vertebral bodies withno spondylolisthesis. Mild anterior wedging of the T7 vertebral body,endplate sclerosis suggests chronic change Severe degenerative spondylosis.Moderate diffuse facet osteoarthropathy. Posterior decompression bilateral transpedicular fusion L3-S1 with no mechanical failure DISC SPACES: Moderate to severe multilevel disc space narrowing withendplate sclerosis and vacuum disks. Interbody spacer L5-S1 PARASPINOUS: Negative. No paraspinous abnormality is seen. OTHER: Extensive atherosclerosis CT/CT thoracic spine wo con IMPRESSION: Moderate to severe diffuse degenerative changes Anterior wedge compression fracture of T7 likely chronic Lumbosacral fusion with no mechanical failure Electronically authenticated by: PATITO DE JESUS Date: 05/25/2024 09:00 Dictated By: Patito De Jesus M.D. Signed By:05/25/24902 DD/ 9 TD/TT: Doll Repairer: Generic External Data Provider IMG CT PROCEDURES Final Result documented in this encounter Visit Diagnoses Not on filedocumented in this encounter Additional Health Concerns Assessment Noted Time PHQ-9 Depression Total Score: 3 04/09/20 24 10:00 AM EDT documented as of this encounter Care Teams Elevator Repairer Helper Relationship Specialty Start Date End Date Kofi Bowers MD [address] [address] PCP - General Internal Medicine 12/22/22 documented as of this encounter
--- OUTSIDE RECORDS SUMMARY | 2025-01-24 10:12 | XMS_ITS | Encounter Summary ---
Author Organization [facility] Address [address] [facility] [place] [address] Care Team Providers Care Field Representatives Director Name Role Phone Kofi Bowers MD Primary Care Provider [phone] Encounter Details Date Type Department Care Team (Late st Contact Info) Description 12/14/2022 Orders Only [facility] [address] [facility] [address] [place] [address] Lilly Granda LPN [address] [place] [address] Social History Tobacco Use Types Packs/Day Years Used Date Smoking Tobacco: Never Assessed Comments Unknown Sex and Gender Information Value Date Recorded Sex Assigned at Not on file Legal Sex Female 6:38 PM EDT Gender Identity Not on file Sexual Orientation Not on file documented as of this encounter Plan of Treatment Upcoming Encounters Date Type Department Care Team (Late st Contact Info) Description 04/17/2025 11:00 AM EDT Office Visit [facility] [address] [facility] [address] [place] [address] Kofi Bowers MD [address] [facility] [address] [place] [address] documented as of this encounter Visit Diagnoses Not on filedocumented in this encounter Care Teams Field Representatives Director Relationship Specialty Start Date End Date Kofi Bowers MD [address] [facility] [address] [place] [address] PCP - General Internal Medicine 12/22/22 documented as of this encounter
--- OUTSIDE RECORDS SUMMARY | 2025-01-24 10:12 | XMS_ITS | Encounter Summary ---
Author Organization [facility] Address [address] [place] [address] Care Team Providers Care Real Estate Sales Associate Name Role Phone Kofi Bowers MD Primary Care Provider Encounter Details Date Type Department Care Team (Late st Contact Info) Description 05/11/2024 Clinisync Result Encounter NOMS External Department Unsolicited [...] Visit [facility] [address] [facility] 110 [place] [address] Kofi Bowers MD [address] [facility] 110 [place] [address] documented as of this encounter Procedures Procedure Name Priority Date/Time Associated Diagnosis Comments XR LUMBAR SPINE MIN 4V 05/11/2024 10:18 AM EDT documented in this encounter Results * XR LUMBAR SPINE MIN 4V (05/11/2024 10:18 AM EDT) Anatomical Region Laterality Modality Other 05/11/2024 10:1 8 AM EDT Narrative 05/11/2024 10:21 AM EDT [address] [address] XRay Report Signed Patient: KONRAD MOBLEY MR#: [id number] : 1945 Acct:[id number] Age/Sex: 79 / F ADM Date: 05/10/24 Loc: RAD Attending Dr: Rylee Rouse DIRECTOR OF COLLECTIONS Ordering Physician: Rylee Rouse NP Date of Service: 05/10/24 Procedure(s): XR lumbar spine min 4V Accession Number(s): [id number] cc: KOFI BOWERS ; Rylee Rouse NP [place] [address] Patient Name: KONRAD MOBLEY MRN: [id number] date: 1945 Sex: F Assigned Patient Location: [facility] Current Patient Location: [facility] Accession/Order Number: [id number] Exam Date: 05/10/2024 13:28 Report Date: 05/11/2024 10:18 At the request of: RYLEE ROUSE Procedure: XR lumbar spine min 4V EXAMINATION: XR lumbar spine min 4V, XR thoracic spine 2V HISTORY: Failed Back Syndrome, Lumbar Radiculopathy [; chronic back pain; occasional numbness and tingling in right leg COMPARISON: No relevant comparison available. FINDINGS: BONES: Slight anterior wedging of approximately T6 and T7 vertebral bodies. Mechanical fusion L3-S1 via bilateral pedicle screws and rods; no appreciable hardware fracture loosening. No bone fracture or significant listhesis. Posterior decompression L3-4-5. Remnants of prior neurostimulator electrodes adjacent the L3-4 facet joints bilaterally. DISC SPACES: Multilevel mild degenerative disc disease of thoracic spine. Moderate narrowing all lumbar levels. Intervertebral disc spacer at L3-4 and L5-S1. PARASPINOUS: Moderate atherosclerotic disease of aorta; no appreciable aneurysm. OTHER: Negative. XR/XR lumbar spine min 4V IMPRESSION: 1. Grossly stable degenerative changes and surgical changes of the thoracic lumbar spine. Electronically authenticated by: JOE VICTORIA Date: 05/11/2024 10:18 Dictated By: Joe Victoria M.D. Signed By: 05/11/24 1021 DD/ 1018 TD/TT: Taxation Economist: Procedure Note Radiology, Radiologist, - 05/11/2024 [place] [address] XRay Report Signed Patient: KONRAD MOBLEY R#: [id number] : 5Acct:[id number] Age/Sex: 79 / FADM Date: 05/10/24 Loc: RAD Attending Dr: Rylee Rouse DIRECTOR OF COLLECTIONS Ordering Physician: Rylee Rouse NP Date of Service: 05/10/24 Procedure(s): XR lumbar spine min 4V Accession Number(s): [id number] cc: KOFI BOWERS ; Rylee Rouse NP [facility] [place] [address] Patient Name: KONRAD MOBLEY MRN: [id number] date: 1945 Sex: F Assigned Patient Location: [facility] Current Patient Location: [facility] Accession/Order Number: [id number] Exam Date: 05/10/2024 13:28 Report Date: 05/11/2024 10:18 At the request of: RYLEE ROUSE Procedure: XR lumbar spine min 4V EXAMINATION: XR lumbar spine min 4V, XR thoracic spine 2V HISTORY: Failed Back Syndrome, Lumbar Radiculopathy [; chronic back pain; occasional numbness and tingling in right leg COMPARISON: No relevant comparison available. FINDINGS: BONES: Slight anterior wedging of approximately T6 and T7 vertebralbodies. Mechanical fusion L3-S1 via bilateral pedicle screws and rods; noappreciable hardware fracture loosening. No bone fracture or significant listhesis. Posterior decompression L3-4-5. Remnants of prior neurostimulatorelectrodes adjacent the L3-4 facet joints bilaterally. DISC SPACES: Multilevel mild degenerative disc disease of thoracic spine. Moderate narrowing all lumbar levels. Intervertebral disc spacer at L3-4and L5-S1. PARASPINOUS: Moderate atherosclerotic disease of aorta; no appreciable aneurysm. OTHER: Negative. XR/XR lumbar spine min 4V IMPRESSION: 1. Grossly stable degenerative changes and surgical changes of thethoracic lumbar spine. Electronically authenticated by: JOE VICTORIA Date: 05/11/2024 10:18 Dictated By: Joe Victoria M.D. Signed By:05/11/24 1021 DD/ 1018 TD/TT: Taxation Economist: us Generic External Data Provider [facility] Final Result documented in this encounter Visit Diagnoses Not on filedocumented in this encounter Additional Health Concerns Assessment Noted Time PHQ-9 Depression Total Score: 3 04/09/20 24 10:00 AM EDT documented as of this encounter Care Teams Real Estate Sales Associate Relationship Specialty Start Date End Date Kofi Bowers MD [address] [address] PCP - General Internal Medicine 12/22/22 documented as of this encounter
--- OUTSIDE RECORDS SUMMARY | 2025-01-24 10:12 | XMS_ITS | Encounter Summary ---
Author Organization [facility] Address [address] [place] [address] Care Team Providers Care Novelty Printing Machine Operator Name Role Phone Kofi Bowers MD Primary Care Provider [phone] Encounter Details Date Type Department Care Team [...] Visit [facility] [address] [facility] 110 [place] [address] Kofi Bowers MD 112 [facility] 110 [place] [address] documented as of this encounter Procedures Procedure Name Priority Date/Time Associated Diagnosis Comments XR THORACIC SPINE 2 VIEWS 05/11/2024 10:18 AM EDT documented in this encounter Results * XR thoracic spine 2 views (05/11/2024 10:18 AM EDT) Anatomical Region Laterality Modality Spine, T-spine Radiographic Kandis ging 05/11/2024 10:1 8 AM EDT Narrative 05/11/2024 10:21 [place] [address] XRay Report Signed Patient: KONRAD MOBLEY MR#: [id number] : 1945 Acct:[id number] Age/Sex: 79 / F ADM Date: 05/10/24 Loc: RAD Attending Dr: Zoila Rouse NP Ordering Physician: Zoila Rouse NP Date of Service: 05/10/24 Procedure(s): XR thoracic spine 2V Accession Number(s): [id number] cc: KOFI BOWERS ; Zoila Rouse NP [place] [address] Patient Name: KONRAD MOBLEY MRN: [id number] date: 1945 Sex: F Assigned Patient Location: [facility] Current Patient Location: [facility] Accession/Order Number: [id number] Exam Date: 05/10/2024 13:28 Report Date: 05/11/2024 10:18 At the request of: ZOILA ROUSE Procedure: XR thoracic spine 2V EXAMINATION: XR lumbar spine min 4V, XR [...] aorta; no appreciable aneurysm. OTHER: Negative. XR/XR thoracic spine 2V IMPRESSION: 1. Grossly stable degenerative changes and surgical changes of the thoracic lumbar spine. Electronically authenticated by: JOE VICTORIA Date: 05/11/2024 10:18 Dictated By: Joe Victoria M.D. Signed By: 05/11/24 1021 DD/ 1018 TD/TT: Brass Pourer: Procedure Note Radiology, Radiologist, - 05/11/2024 [place] [address] XRay Report Signed Patient: KONRAD MOBLEY R#: [id number] : 5Acct:[id number] Age/Sex: 79 / FADM Date: 05/10/24 Loc: RAD Attending Dr: Ziola Rouse CONDOMINIUM PROPERTY MANAGER Ordering Physician: Zoila Rouse NP Date of Service: 05/10/24 Procedure(s): XR thoracic spine 2V Accession Number(s): [id number] cc: KOFI BOWERS ; Zoila Rouse NP [address] [place] [address] Patient Name: KONRAD MOBLEY MRN: [id number] date: 1945 Sex: F Assigned Patient Location: [facility] Current Patient Location: [facility] Accession/Order Number: [id number] Exam Date: 05/10/2024 13:28 Report Date: 05/11/2024 10:18 At the request of: ZOILA ROUSE Procedure: XR thoracic spine 2V EXAMINATION: XR lumbar spine min 4V, XR [...] aorta; no appreciable aneurysm. OTHER: Negative. XR/XR thoracic spine 2V IMPRESSION: 1. Grossly stable degenerative changes and surgical changes of thethoracic lumbar spine. Electronically authenticated by: JOE VICTORIA Date: 05/11/2024 10:18 Dictated By: Joe Victoria M.D. Signed By:05/11/24 1021 DD/ 1018 TD/TT: Brass Pourer: us Generic External Data Provider IMG XR PROCEDURES Final Result documented in this encounter Visit Diagnoses Not on filedocumented in this encounter Additional Health Concerns Assessment Noted Time PHQ-9 Depression Total Score: 3 04/09/20 24 10:00 AM EDT documented as of this encounter Care Teams Novelty Printing Machine Operator Relationship Specialty Start Date End Date Kofi Bowers MD [address] [address] PCP - General Internal Medicine 12/22/22 documented as of this encounter
--- OUTSIDE RECORDS SUMMARY | 2025-01-24 10:12 | XMS_ITS | Encounter Summary ---
Author Organization [facility] Address [address] [facility] [place] [address] Care Team Providers Care Pourer Buggy Ladle Name Role Phone Kofi Bowers MD Primary Care Provider [phone] Encounter Details Date Type Department Care Team (Late Contact Info) Description 01/14/2025 Bamboo flowsheet [facility] [address] [facility] 110 [place] [phone] Skye Perla PA 112 [facility] 110 [place], [place] [address] Social History Tobacco Use Types Packs/Day Years [...] Office Visit [facility] [address] [facility] 110 [place] [address] Kofi Bowers MD 112 [facility] 110 [place], [place] [id number] documented as of this encounter Visit Diagnoses Not on filedocumented in this encounter Additional Health Concerns Assessment Noted Time PHQ-9 Depression Total Score: 3 04/09/20 24 10:00 AM EDT documented as of this encounter Care Teams Pourer Buggy Ladle Relationship Specialty Start Date End Date Kofi Bowers MD [address] [address] PCP - General Internal Medicine 12/22/22 documented as of this encounter
--- OUTSIDE RECORDS SUMMARY | 2025-01-24 10:12 | XMS_ITS | Encounter Summary ---
Author Organization [facility] Address [address] [facility] [place] [address] Care Team Providers Care Fire Engine Pump Operator Name Role Phone Kofi Bowers MD Primary Care Provider [phone] Encounter Details Date Type Department Care Team (Latest Contact Info) Description 01/14/2025 Travel Social History Tobacco Use Types Packs/Day Years [...] [facility] [address] [facility] 110 [place] [address] Kofi Bowers MD [address] [facility] 110 [place] [address] documented as of this encounter Visit Diagnoses Not on filedocumented in this encounter Additional Health Concerns Assessment Noted Time PHQ-9 Depression Total Score: 3 04/09/20 24 10:00 AM EDT documented as of this encounter Care Teams Fire Engine Pump Operator Relationship Specialty Start Date End Date Kofi Bowers MD [address] [facility] 110 [place] [address] PCP - General Internal Medicine 12/22/22 documented as of this encounter
--- OUTSIDE RECORDS SUMMARY | 2025-01-24 10:12 | XMS_ITS | Clinical Summary ---
Author Organization [facility] Address [address] [place] [address] Care Team Providers Care Service Clerk Name Role Phone Unavailable Primary Care Provider Unavailabl e Allergies Active Allergy Reactions Criticality Noted Date Comments Iodine Swelling 01/24/2014 Shellfish Swelling 01/24/2014 Medications meloxicam (MOBIC) 15 mg tabletIndicati ons:Polyneurop athy Take 15 mg by mouth once daily. Active furosemide (LASIX) 40 mg tabletIndicati ons:Polyneurop athy Take 40 mg by mouth once daily. Active metFORMIN 850 mg tabletIndicati ons:Polyneurop athy Take 850 mg by mouth twice daily with meals. Active cloNIDine-chlo rthalidone 0.1-15 mg per tabletIndicati ons:Polyneurop athy Take 1 tablet by mouth three times daily. Active hydrochlorothi azide 25 mg tabletIndicati ons:Polyneurop athy Take 25 mg by mouth once daily. Active gabapentin (NEURONTIN) 600 mg tabletIndicati ons:Polyneurop athy Take 600 mg by mouth four times daily. Active DULoxetine (CYMBALTA) 60 mg capsuleIndicat ions:Polyneuro afia Take 60 mg by mouth once daily. Active omeprazole (PRILOSEC) 20 mg capsuleIndicat ions:Polyneuro afia Take 20 mg by mouth once daily. Active loratadine (CLARITIN) 10 mg tabletIndicati ons:Polyneurop athy Take 10 mg by mouth once daily. Active metoprolol succinate XL, long acting, (TOPROL XL) 50 mg 24 hr tabletIndicati ons:Polyneurop athy Take 50 mg by mouth once daily. Active meclizine 25 mg tabIndications :Polyneuropath y Take 25 mg by mouth once daily. Active losartan 100 mg tabletIndicati ons:Polyneurop athy Take 100 mg by mouth once daily. Active pregabalin (LYRICA) 100 mg capsuleIndicat ions:Polyneuro afia Take 100 mg by mouth three times daily. Active traZODone 100 mg tabletIndicati ons:Polyneurop athy Take 100 mg by mouth daily at bedtime. Active METHYL-B12/L-M EFOLATE/B6 PHOS (METANX ORAL)Indicatio ns:Polyneuropa thy Take 180 mg by mouth twice daily. Active fluocinolone 0.01 % creamIndicatio ns:Polyneuropa thy Apply 1 application to affected area twice daily. Active liraglutide (VICTOZA 2-KACI) 0.6 mg/0.1 mL (18 mg/3 mL) pnijIndication s:Polyneuropat hy Inject 1.8 mg subcutaneously once daily. Active oxyCODONE-acet aminophen (PERCOCET) 5-325 mg tabletIndicati ons:Polyneurop athy Take 1 tablet by mouth every 8 hours as needed. Active lovastatin 20 mg tabletIndicati ons:Polyneurop athy Take 20 mg by mouth daily at bedtime. Active sitaGLIPtin (JANUVIA) 100 mg tabletIndicati ons:Polyneurop athy Take 100 mg by mouth once daily. Active calcium combo no.2-vitamin D3 600 mg calcium- 500 unit TbERIndication s:Polyneuropat hy Take by mouth twice daily. Active aspirin (PATSY CHEWABLE ASPIRIN) 81 mg chewable tabletIndicati ons:Polyneurop athy Take 81 mg by mouth once daily. Active DOCUSATE CALCIUM (STOOL SOFTENER ORAL)Indicatio ns:Polyneuropa thy Take by mouth as needed. Active CAPSAICIN (ZOSTRIX TOPICAL)Indica tions:Polyneur opathy Apply to affected area. Active Active Problems Problem Noted Date Diagnosed Date Polyneuropathy 01/24/2014 Diabetes 01/24/2014 Obesity 01/24/2014 Social History Tobacco Use Types Packs/Day Years Used Date Smoking Tobacco: Never Assessed Comments Unknown Sex and Gender Information Value Date Recorded Sex Assigned at Not on file Legal Sex Female 10:41 AM EST Gender Identity Not on file Sexual Orientation Not on file Last Filed Vital Signs Vital Sign Reading Time Taken Comments Blood Pressure 106/60 01/24/2014 12:45 PM EDT Pulse 77 01/24/2014 12:45 PM EDT Temperature - - Respiratory Rate - - Oxygen Saturation - - Inhaled Oxygen Concentration - - Weight - - Height - - Body Mass Index - - Plan of Treatment Health Maintenance Due Date Last Done Comments Anxiety Screening 1963 Depression Screening 1963 DTaP,Tdap,Td Vaccine (1 - Tdap) 1964 Diabetes Screening 1990 Pneumococcal Vaccine: 50+ (1 of 1 - PCV) 1995 Shingrix Vaccine (1 of 2) 1995 Bone Density Screening 2010 RSV Vaccine (1 - 1-dose 75+ series) 2020 Covid-19 Vaccine ( season) 2024 Advance Directive Discussion 08/15/2024 Influenza Vaccine (Season Ended) 2025 Insurance MEDICARE BLUE CARD PPO OOS
--- OUTSIDE RECORDS SUMMARY | 2025-01-24 10:12 | XMS_ITS | Encounter Summary ---
Author Organization [facility] Address [address] [facility] [place] [address] Care Team Providers Care Etl Manager Name Role Phone Kofi Bowers MD Primary Care Provider [phone] Encounter Details Date Type Department Care Team ([facility] Contact Info) Description 08/28/2024 Abstract [facility] [address] [facility] 110 [place] [phone] Kofi Bowers MD 112 [facility] 110 [place] [address] Social History Tobacco Use Types Packs/Day Years [...] [facility] [address] [facility] 110 [place] [address] Kofi Bowers MD 112 [facility] 110 [place] [address] documented as of this encounter Visit Diagnoses Not on filedocumented in this encounter Additional Health Concerns Assessment Noted Time PHQ-9 Depression Total Score: 3 04/09/20 24 10:00 AM EDT documented as of this encounter Care Teams Etl Manager Relationship Specialty Start Date End Date Kofi Bowers MD [address] [address] PCP - General Internal Medicine 12/22/22 documented as of this encounter
--- OUTSIDE RECORDS SUMMARY | 2025-01-24 10:12 | XMS_ITS | Encounter Summary ---
Author Organization [facility] Address [address] [place] [address] Care Team Providers Care Measurement Department Chief Clerk Name Role Phone Kofi Bowers MD Primary Care Provider [phone] Encounter Details Date Type Department Care Team [...] [facility] [address] [facility] 110 [place] [address] Kofi Bowers MD [address] [facility] 110 [place] [address] documented as of this encounter Procedures Procedure Name Priority Date/Time Associated Diagnosis Comments CT LUMBAR SPINE WO IV CONTRAST 05/25/2024 9:00 AM EDT documented in this encounter Results * CT lumbar spine wo IV contrast (05/25/2024 9:00 AM EDT) Anatomical Region Laterality Modality Spine, L-spine Computed Tomogra phy 05/25/2024 9:00 AM EDT Narrative 05/25/2024 9:03 [place] [address] CT Scan Report Signed Patient: KONRAD MOBLEY MR#: [id number] : 1945 Acct:[id number] Age/Sex: 79 / F ADM Date: 05/24/24 Loc: CT Attending Dr: Esperanza Maya M.D. Ordering Physician: Esperanza Maya M.D. Date of Service: 05/24/24 Procedure(s): CT lumbar spine wo con Accession Number(s): [id number] cc: KOFI BOWERS [place] [address] Patient Name: KONRAD MOBLEY MRN: [id number] date: 1945 Sex: F Assigned Patient Location: CT Current Patient Location: Accession/Order Number: [id number] Exam Date: 05/24/2024 13:23 Report Date: 05/25/2024 09:00 At the request of: ESPERANZA MAYA Procedure: CT lumbar spine wo con EXAMINATION: CT thoracic spine [...] abnormality is seen. 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 Signed By: 05/25/24902 DD/ 9 TD/TT: Product Safety Specialist: Procedure Note Radiology, Radiologist, - 05/25/2024 [place] [address] CT Scan Report Signed Patient: KONRAD MOBLEY GMR#: [id number] : 5Acct:[id number] Age/Sex: 79 / FADM Date: 05/24/24 Loc: CT Attending Dr: Esperanza Maya M.D. Ordering Physician: Esperanza Maya M.D. Date of Service: 05/24/24 Procedure(s): CT lumbar spine wo con Accession Number(s): [id number] cc: KOFI BOWERS [place] [address] Patient Name: KONRAD MOBLEY MRN: [facility]:[id number] date: 1945 Sex: F Assigned Patient Location: CT Current Patient Location: Accession/Order Number: [id number] Exam Date: 05/24/2024 13:23 Report Date: 05/25/2024 09:00 At the request of: ESPERANZA MAYA Procedure: CT lumbar spine wo con EXAMINATION: CT thoracic spine [...] abnormality is seen. 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 Signed By:05/25/24902 DD/ 9 TD/TT: Product Safety Specialist: Generic External Data Provider IMG CT PROCEDURES Final Result documented in this encounter Visit Diagnoses Not on filedocumented in this encounter Additional Health Concerns Assessment Noted Time PHQ-9 Depression Total Score: 3 04/09/20 24 10:00 AM EDT documented as of this encounter Care Teams Measurement Department Chief Clerk Relationship Specialty Start Date End Date Kofi Bowers MD [address] [address] PCP - General Internal Medicine 12/22/22 documented as of this encounter
--- OUTSIDE RECORDS SUMMARY | 2025-01-24 10:12 | XMS_ITS | Encounter Summary ---
Author Organization [facility] Address [address] [place] [facility] [address] Care Team Providers Care Plug Overwrap Machine Tender Name Role Phone Kofi Bowers MD Primary Care Provider Encounter Details Date Type Department Care Team ([facility] Contact Info) Description 03/21/2023 Abstract [facility] [address] [facility] 110 [place] [phone] Kofi Bowers MD 112 [facility] 110 [place] [address] Social History Tobacco Use Types Packs/Day Years Used Date Smoking Tobacco: Former Cigarettes Q uit: 08/15/1999 Smokeless Tobacco: Never Alcohol Use Standard Drinks/Week Comments Not Currently 0 (1 standard drink = 0.6 oz pure alcohol) Caffeine: 1-2 cups per day; none soda/pop PHQ-2 Answer Date Recorded Patient Health Questionnaire-2 Score 0 01/03/2023 Comments Unknown Sex and Gender Information Value Date Recorded Sex Assigned at Not on file Legal Sex Female 6:38 PM EDT Gender Identity Not on file Sexual Orientation Not on file documented as of this encounter Plan of Treatment Upcoming Encounters Date Type Department Care Team (Late Contact Info) Description 04/17/2025 11:00 AM EDT Office Visit [facility] [address] [facility] 110 [place] [phone] Kofi Bowers MD 112 [facility] 110 [place] [address] documented as of this encounter Visit Diagnoses Not on filedocumented in this encounter Care Teams Plug Overwrap Machine Tender Relationship Specialty Start Date End Date Kofi Bowers MD 112 [facility] 110 [place] [address] PCP - General Internal Medicine 12/22/22 documented as of this encounter
--- OUTSIDE RECORDS SUMMARY | 2025-01-24 10:12 | XMS_ITS | Encounter Summary ---
Author Organization [facility] Address [address] [place] [address] Care Team Providers Care Pressing Machine Tender Name Role Phone Kofi Bowers MD Primary Care Provider [phone] Encounter Details Date Type Department Care Team (Late st Contact Info) Description 07/18/2024 Clinisync Result Encounter [facility] External Department Unsolicited [...] Visit [facility] [address] [facility] [address] [place] [address] Kofi Bowers MD 112 [facility] 110 [place] [address] documented as of this encounter Procedures Procedure Name Priority Date/Time Associated Diagnosis Comments ECG 12-LEAD 07/18/2024 10:38 AM EST documented in this encounter Results * ECG 12-LEAD (07/18/2024 10:38 AM EST) Anatomical Region Laterality Modality Other 07/18/2024 10:3 8 AM EST Narrative 07/18/2024 10:56 [place] [address] Electrocardiograph Report Signed Patient: KONRAD MOBLEY MR#: [id number] : 1945 Acct:[id number] Age/Sex: 79 / F ADM Date: 07/18/24 Loc: PST Attending Dr: Esperanza Maya M.D. Ordering Physician: Esperanza Maya M.D. Date of Service: 07/18/24 Procedure(s): ECG 12 lead Accession Number(s): [id number] cc: [facility] Test Date: 2024-07-18 Pat Name: KONRAD MOBLEY Department: Room: - Gender: Female Product Tester Fiberglass: : 1945 Requested By: KOFI BOWERS Order Number: [id number] Reading MD: MEGA ACUÑA Measurements Intervals [place] Rate: 84 P: 13 GA: 158 QRS: 70 QRSD: 98 T: 66 QT: 379 QTc: 450 Interpretive Statements SINUS RHYTHM WITH SINUS ARRHYTHMIA Compared to ECG 06/26/2021 12:41:20 Ventricular premature complex(es) no longer present Electronically Signed On 07-18-2024 22:55:56 EST by MEGA ACUÑA Dictated By: Mega Acuña D.O. Signed By: 07/18/24 2256 DD/ 1038 TD/TT: Chemist Pharmaceutical: Procedure Note Radiology, Radiologist, MD - 07/18/2024 The [place] [id number] Electrocardiograph Report Signed Patient: KONRAD MOBLEY GMR#: [id number] : 5Acct:[id number] Age/Sex: 79 / FADM Date: 07/18/24 Loc: PST Attending Dr: Esperanza Maya M.D. Ordering Physician: Esperanza Maya M.D. Date of Service: 07/18/24 Procedure(s): ECG 12 lead Accession Number(s): [id number] cc: [facility] Test Date: 2024-07-18 Pat Name: KONRAD MOBLEY Department: Room: - Gender: Female Product Tester Fiberglass: : 1945 Requested By: KOFI BOWERS Order Number: [id number] Reading MD: MEGA ACUÑA Measurements Intervals [place] Rate: 84 P: 13 GA: 158 QRS: 70 QRSD: 98 T: 66 QT: 379 QTc: 450 Interpretive Statements SINUS RHYTHM WITH SINUS ARRHYTHMIA Compared to ECG 06/26/2021 12:41:20 Ventricular premature complex(es) no longer present Electronically Signed On 07-18-2024 22:55:56 EST by MEGA ACUÑA Dictated By: Mega Acuña D.O. Signed By:07/18/24 2256 DD/ 1038 TD/TT: Chemist Pharmaceutical: us Generic External Data Provider [facility] Final Result documented in this encounter Visit Diagnoses Not on filedocumented in this encounter Additional Health Concerns Assessment Noted Time PHQ-9 Depression Total Score: 3 04/09/20 24 10:00 AM EDT documented as of this encounter Care Teams Pressing Machine Tender Relationship Specialty Start Date End Date Kofi Bowers MD 112 [facility] 110 [place] [address] PCP - General Internal Medicine 12/22/22 documented as of this encounter
--- OUTSIDE RECORDS SUMMARY | 2025-01-24 10:12 | XMS_ITS | Encounter Summary ---
Author Organization [facility] Address [address] [facility] [place] [address] Care Team Providers Care Wind Energy Project Manager Name Role Phone Kofi Bowers MD Primary Care Provider [phone] Encounter Details Date Type Department Care Team ([facility] Contact Info) Description 05/03/2024 Abstract [facility] [address] [facility] [address] [place] [id number] Kofi Bowers MD 112 [facility] 110 [place] [address] Social History Tobacco Use Types Packs/Day Years [...] FM [address] [facility] [address] [place] [phone] Kofi Bowers MD 112 [facility] [address] [place] [address] documented as of this encounter Visit Diagnoses Not on filedocumented in this encounter Additional Health Concerns Assessment Noted Time PHQ-9 Depression Total Score: 3 04/09/20 24 10:00 AM EDT documented as of this encounter Care Teams Wind Energy Project Manager Relationship Specialty Start Date End Date Kofi Bowers MD [address] [address] PCP - General Internal Medicine 12/22/22 documented as of this encounter
--- OUTSIDE RECORDS SUMMARY | 2025-01-24 10:13 | XMS_ITS | Clinical Summary ---
Author Organization [facility] Address [address] [place] [address] Care Team Providers Care Medical Anthropology Director Name Role Phone Kofi Bowers MD Primary Care Provider [phone] Allergies Active Allergy Reactions Criticality Noted Date Comments Iodine Shortness of breath High 12/14/2022 Levofloxacin Other 12/14/2022 Pregabalin Dizziness 12/14/2022 Shellfish Allergy Swelling 01/24/2014 Medications aspirin 81 MG EC tablet 1 (one) time each day at the same time. 04/20/20 18 Active insulin detemir (Levemir FlexTouch) 100 UNIT/ML pen INJECT 60 UNITS SUBCUTANEOUSLY EACH MORNING for 25 Active potassium chloride CR (Klor-Con M20) 20 MEQ ER tablet 1 (one) time each day at the same time. Active alpha tocopherol (Vitamin E) 400 units capsule 1 capsule. Activ e acetaminophen (Tylenol) 500 MG tablet every 6 (six) hours. Active Ascorbic Acid (Vitamin C) 500 MG/5ML liquid 1 capsule 1 (one) time each day at the same time. Active cholecalciferol (Vitamin D-3) 1.25 MG (67651 UT) tablet Vitamin D3 5000IU A ctive Calcium Citrate-Vitamin D (Vishnu-Citrate Plus Vitamin D) 250-2.5 MG-MCG tablet Take 1 tablet by mouth in the morning and 1 tablet in the evening. Active losartan-hydroCHL OROthiazide (Hyzaar) 100-25 MG tabletIndications :Hypertension, unspecified type Take 1 tablet by mouth Daily 100 tablet 2 03/05/20 24 Active Allergy Relief 10 MG tabletIndications :Allergy, initial encounter TAKE 1 TABLET BY MOUTH EVERY MORNING 30 tablet 11 03/20/20 24 Active liothyronine (Cytomel) 25 MCG tabletIndications :Hypothyroidism, unspecified type 0.5 tablet on an empty stomach Orally two times daily. D.A.W. as Sigma or Pandabus Brand ONLY for 90 days 200 tablet 3 07/02/20 24 Active amLODIPine (Norvasc) 10 MG tabletIndications :Benign essential hypertension TAKE 1 TABLET BY MOUTH IN THE MORNING 100 tablet 3 07/23/20 24 Active lovastatin (Mevacor) 20 MG tabletIndications :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HHS-HCC) TAKE 1 TABLET BY MOUTH ONCE DAILY 100 tablet 3 08/16/19 25 Active Trulicity 4.5 MG/0.5ML solution auto-injectorIndi cations:Diabetes mellitus type 2 with neurological manifestations (HCC) INJECT CONTENTS OF 1 SYRINGE SUBCUTANEOUSLY ONCE WEEKLY 2 mL 10 08/23/19 25 Active QUEtiapine (SEROquel) 50 MG tabletIndications :Insomnia, unspecified type TAKE 1 TABLET BY MOUTH ONCE DAILY 30 tablet 10 09/17/19 25 Active furosemide (Lasix) 40 MG tabletIndications :Benign essential hypertension TAKE 1 TABLET BY MOUTH IN THE MORNING 30 tablet 11 12/14/19 25 Active acarbose (Precose) 100 MG tabletIndications :Diabetes mellitus type 2 with neurological manifestations (HCC) TAKE 1 TABLET BY MOUTH IN THE MORNING AND 1 TABLET BEFORE BEDTIME 60 tablet 12/14/19 25 Active metFORMIN (Glucophage) 1000 MG tabletIndications :Diabetes mellitus type 2 with neurological manifestations (HCC) TAKE 1 TABLET BY MOUTH IN THE MORNING AND 1 TABLET IN THE EVENING. TAKE WITH MEALS 60 tablet 12/14/19 25 Active omeprazole (PriLOSEC) [address] capsuleIndication s:Gastroesophagea l reflux disease without esophagitis TAKE 1 CAPSULE BY MOUTH IN THE MORNING 30 capsule 12/14/19 25 Active traMADol (Ultram) 50 MG tabletIndications :Failed back syndrome Take 1 tablet (50 mg) by mouth every 6 (six) hours if needed for severe pain 120 tablet 2 01/05/20 25 025 Active baclofen (Lioresal) 10 MG tablet TAKE 1/2 (ONE-HALF) TO 1 (ONE) TABLET BY MOUTH THREE TIMES DAILY NEEDED 12/26/19 25 Active orphenadrine (Norflex) 100 MG 12 hr tabletIndications :Acute strain of neck muscle, initial encounter Take 1 tablet (100 mg) by mouth 2 (two) times a day as needed for muscle spasms for up to 10 days Do not crush, chew, or split. 20 tablet 10/27/19 24 025 Disconti nued(The rapy complete d) traMADol (Ultram) 50 MG tabletIndications :Failed back syndrome Take 1 tablet (50 mg) by mouth every 6 (six) hours if needed for severe pain 120 tablet 12/04/19 25 025 Disconti nued(Reo rder) eszopiclone (Lunesta) 3 MG tablet 1 (one) time each day at the same time 025 Disconti nued(Oth er) pramipexole (Mirapex) 0.5 MG tablet 1 (one) time each day at the same time 025 Disconti nued(The ayahy complete d) Hospital, Clinic, or Other Facility Administered Medication Ordered Dose Route Frequency Start Date End Date Status orphenadrine (Norflex) injection 60 mgIndications:Lumbar paraspinal muscle spasm 60 mg IM Once 01/14/2025 01/14/2025 E nded Active Problems Problem Noted Date Diagnosed Date Morbid (severe) obesity due to excess calories 0 08/28/2024 Restless leg syndrome 01/18/2024 Vertigo 10/27/2023 Ectropion of lower eyelid 03/11/2023 Closed fracture of orbital floor (blow-out) 02/13 Diplopia 03/11/2023 Overview (03/11/2023): Removal Reason: Resolved. Fracture of orbit 03/11/2023 Fracture of radial neck 03/11/2023 Pain in elbow 03/11/2023 Venous hypertension of lower extremity Adenomatous polyp of ascending colon 12/14/2022 Benign essential hypertension 12/14/2022 Chronic fatigue 12/14/2022 Chronic pain syndrome 12/14/2022 Continuous positive airway pressure dependent Decreased estrogen level 12/14/2022 Diabetes mellitus type 2 with neurological manif estations 12/14/2022 Type 2 diabetes mellitus with hyperglycemia 09/2022 Diabetic retinopathy associa chad with controlled type 2 diabetes mellitus 12/14/2022 Difficulty in walking, not elsewhere classified 12/14/2022 ESS (euthyroid sick syndrome) 12/14/2022 Failed back syndrome 12/14/2022 GERD (gastroesophageal reflux disease) 3 Sleep initiation disorder 12/14/2022 Mixed hyperlipidemia 12/14/2022 Non-seasonal allergic rhinitis 12/14/2022 Osteopenia 12/14/2022 Peripheral vascular disease 12/14/2022 Peripheral venous insufficiency 12/14/2022 Trigger thumb, left thumb 12/14/2022 Vitreous floaters of both eyes 12/14/2022 Epiphora 04/08/2022 Acquired trigger finger 01/15/2021 Body mass index (BMI) 35.0-35.9, adult 0 MANOLO (obstructive sleep apnea) 04/11/2019 Overview (03/11/2023): Last Assessment & Plan: Continue to wear cpap Benign neoplasm of colon 06/27/2018 History of colonic polyps 06/01/2018 Family history of malignant neoplasm of gastrointestinal tract 06/01/2018 Lipoprotein deficiency disorder 05/01/2018 penitentiary current use of insulin 01/28/2016 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 Ex-smoker 10/22/2015 History of fall 10/02/2015 Insomnia 06/10/2015 Diabetic polyneuropathy asso ciated with type 2 diabetes mellitus 08/15/2014 Diabetes 01/24/2014 Polyneuropathy 01/24/2014 Resolved Problems Problem Noted Date Diagnosed Date Resolved Date Low HDL (under 40) 12/14/2022 3 Encounters Date Type Department Care Team Description 01/14/2025 1:00 PM EDT Office Visit [facility] [address] [facility] [address] [place] [address] Skye Perla PA Lumbar paraspinal muscle spasm (Primary Dx); Type 2 diabetes mellitus with hyperglycemia, without long-term current use of insulin ([facility]) 01/14/2025 Bamboo flowsheet [facility] [address] [place] [address] [place] [address] Skye Perla PA 01/14/2025 Travel 01/04/2025 Refill [facility] [address] [place] [address] [place] [address] Kofi Bowers MD Failed back syndrome 01/03/2025 Refill [facility] [address] [place] [address] [place] [address] Kofi Bowers MD Failed back syndrome 12/12/2024 Refill [facility] [address] [place] [address] [place] [address] Kofi Bowers MD Benign essential hypertension ; Diabetes mellitus type 2 with neurological manifestations (HCC); Gastroesophageal reflux disease without esophagitis 12/03/2024 Refill [facility] [address] [facility] [address] [place] [address] Kofi Bowers MD Failed back syndrome 11/02/2024 Refill [facility] [address] [facility] [address] [place] [address] Kofi Bowers MD Failed back syndrome from Last 3 Months Immunizations Immunization Administration Dates Next Due ABRYSVO - Respiratory syncyt ial virus (RSV), vaccine, bivalent, protein subunit RSV prefusion F, diluent reconstituted, 0.5 mL, PF 06/20/2024 Influenza, High Dose Seasona l, Preservative Free 06/20/2024,09/15/2020 Influenza, High-dose Seasona l, Quadrivalent, Preservative Free 06/06/2023 Influenza, Recombinant, inje ctable, preservative free 05/15/2020 Influenza, injectable, MDCK, preservative free, quadrivalent 05/20/2021 Influenza, injectable, quadr ivalent, preservative free 06/15/2019,05/22/2018,08/02/2015 Pneumococcal Polysaccharide PPSV23 05/15/2013 Td (adult), 5 Lf tetanus tox oid, preservative free, adsorbed 07/31/2015 Zoster, Recombinant 12/07/2024 Family History Medical History Relation Name Comments Cancer Brother Colon ; Didn't indicate which brother among the 3 Heart disease Brother Passed ; Didn' t indicate which brother among the 3 Kidney problem Brother Passed ; Didn 't indicate which brother among the 3 Cancer Father Diabetes Father Heart disease Father Hypertension Father Cancer Mother Colon Cancer Cancer Other Spouse: Prostat e that metastisized to bone ; Eryhtroid Leukemia Diabetes Son Tourette syndrome Son Relation Name Status Comments Brother x3 Father Mother Other Sister x3 Son Alive Social History Tobacco Use Types Packs/Day Years Used Date Smoking Tobacco: Former Cigarettes Q uit: 08/15/1999 Smokeless Tobacco: Never Tobacco Cessation:Counseling Given: Not Answered Alcohol Use Standard Drinks/Week Comments Not Currently [...] Sign Reading Time Taken Comments Blood Pressure 144/88 01/14/2025 1:14 PM EDT Pulse 78 01/14/2025 1:14 PM EDT Temperature - - Respiratory Rate 16 01/14/2025 1:14 PM EDT Oxygen Saturation 97% 01/14/2025 1:14 PM EDT Inhaled Oxygen Concentration - - Weight 81.6 kg (180 lb) 01/14/2025 1:14 PM EDT Height 152.4 cm (5') 01/14/2025 1:14 PM EDT Body Mass Index 35.15 01/14/2025 1:14 PM EDT Plan of Treatment Upcoming Encounters Date Type Department Care Team (Late st Contact Info) Description 04/17/2025 11:00 AM EDT Office Visit [facility] 112 [facility] [address] [place] [address] Kofi Bowers MD 112 [facility] 110 [place] [address] Health Maintenance Due Date Last Done Comments Pneumococcal Vaccine: 65+ Ye ars (2 of 2 - PCV) 05/15/2014 05/15/2013 Diabetes: Retinopathy Screening 04/28/2021 04/28/2020, 04/25/2019, 04/19/2018 Diabetes: Urine Protein Screening 04/09/2025 04/09/2024, 01/18/2024, 01/03/2023, Additional history exists Medicare Annual Wellness (AWV) 04/09/2025 0 04/09/2024, 01/03/2023, 01/03/2023 Diabetes: Hemoglobin A1C 04/16/2025 025, 08/28/2024, 04/09/2024, Additional history exists Influenza Vaccine Completed 06/20/2024, , 05/20/2021, Additional history exists Procedures Procedure Name Priority Date/Time Associated Diagnosis Comments POCT GLYCATED HEMOGLOBIN, TOTAL Routine 01/14/2025 1:15 PM EDT Type 2 diabetes mellitus with hyperglycemia, without long-term current use of insulin (HCC) MICROALBUMIN / CREATININE URINE RATIO Routine 04/09/2024 11:33 AM EDT Type 2 diabetes mellitus without complication, without long-term current use of insulin (HCC) COLOR FUNDUS PHOTOGRAPHY - OU - BOTH EYES Routine 04/28/2020 12:00 PM EDT from Last 3 Months or Most Recently Relevant to Health Maintenance Results * (ABNORMAL) POCT Glycated hemoglobin, total (01/14/2025 1:15 PM EDT) Hemoglobin A1C 6.4 Blood 01/14/2025 1:15 PM EDT Skye FARIAS POINT OF CARE TEST ENTER/EDIT ORDERABLES Final Result * Microalbumin / creatinine, urine ratio (04/09/2024 11:33 AM EDT) CREATININE, RANDOM URINE 83 20 - 275 mg/dL [facility] ALBUMIN, URINE 0.5 See Note: mg/dL [facility] Comment: Reference Range: Reference Range Not established ALBUMIN/CREATININE RATIO, RANDOM URINE 6 <30 mg/g creat [facility] Comment: The ADA defines abnormalities in albumin excretion as follows: Albuminuria Category Result (mg/g creatinine) Normal to Mildly increased <30 Moderately increased 30-299 Severely increased > OR = 300 The ADA recommends that at least two of three specimens collected within a 3-6 month period be abnormal before considering a patient to be within a diagnostic category. Urine Urine specimen obtained by clean catch procedure / Unknown 04/09/2024 11:33 AM EDT 04/09/2024 11:33 AM EDT Narrative Resulting Agency Comment Performing Organization Information Site ID: [id number] Name: [facility] Address: [address] [place] [address], [address] [place] [phone] Director: Cezar Singh MD Kofi Bowers MD LAB URINE ORDERABLES Final Res ult [facility] * Color Fundus Photography - OU - Both Eyes (04/28/2020 12:00 PM EDT) Anatomical Region Laterality Modality Head Fundus Photograp hy 04/28/2020 12:0 0 PM EDT Narrative 04/28/2020 12:00 PM EDT PERFORMED AT [facility] LOCATION:[id number] Procedure Note CONVERSION, GENERIC - 12/29/2022 PERFORMED AT [facility] LOCATION:[id number] Carlos Castellon MD OPHTH PHOTOGRAPHY Final Resu lt from Last 3 Months or Most Recently Relevant to Health Maintenance Insurance [employer] MEDICARE Care Teams Medical Anthropology Director Relationship Specialty Start Date End Date Kofi Bowers MD [address] [facility] [address] [place], [place] [id number] PCP - General Internal Medicine 12/22/22
--- OUTSIDE RECORDS SUMMARY | 2025-01-24 10:13 | XMS_ITS | Clinical Summary ---
Author Organization [facility] [facility] Address [id number] [address] [place] [address] Care Team Providers Care Agricultural Inspector Name Role Phone Kofi Bowers MD Primary Care Provider [phone] Allergies Active Allergy Reactions Criticality Noted Date Comments Iodine 11/23/2018 Throat swells, couldn't breathe Levofloxacin 11/23/2018 itchy Medications acarbose (PRECOSE) 100 MG tablet Take 1 tablet (100 mg total) by mouth in the morning and 1 tablet (100 mg total) before bedtime. Active liothyronine (CYTOMEL) 25 MCG tablet Take 0.5 tablets (12.5 mcg total) by mouth in the morning and 0.5 tablets (12.5 mcg total) before bedtime. Active omeprazole (PriLOSEC) 20 mg capsule Take 1 capsule (20 mg total) by mouth in the morning. Active metoprolol tartrate (LOPRESSOR) 50 mg tablet Take 50 mg by mouth daily. Active metFORMIN (GLUMETZA) 1000 MG (MOD) 24 hr tablet Take 1 tablet (1,000 mg total) by mouth in the morning and 1 tablet (1,000 mg total) in the evening. Take with meals. Active lovastatin (MEVACOR) 20 mg tablet Take 1 tablet (20 mg total) by mouth nightly. Active losartan (COZAAR) 50 mg tablet Take 2 tablets (100 mg total) by mouth in the morning. Active potassium chloride (K-DUR,KLOR-CON ) 10 MEQ CR tablet Take 2 tablets (20 mEq total) by mouth in the morning. Active furosemide (LASIX) 40 mg tablet Take 1 tablet (40 mg total) by mouth 2 (two) times a day. Active DULoxetine (CYMBALTA) 60 mg capsule Take 60 mg by mouth daily. Active cloNIDine (CATAPRES) 0.1 mg tablet Take 1 tablet (0.1 mg total) by mouth in the morning and 1 tablet (0.1 mg total) before bedtime. Active QUEtiapine (SEROquel) 25 mg tablet Take 2 tablets (50 mg total) by mouth nightly. Active traMADol (ULTRAM) 50 mg tablet Take 1 tablet (50 mg total) by mouth every 6 (six) hours as needed for pain. Active insulin detemir U-100 (LEVEMIR) 100 unit/mL injection Inject 0.6 mL (60 Units total) under the skin nightly. Active calcium citrate-vitamin D2 250-100 mg-unit per tablet Take 1 tablet by mouth in the morning and 1 tablet before bedtime. Active TURMERIC ORAL Take by mouth. Active acetaminophen (TYLENOL) 325 mg tablet Take 2 tablets (650 mg total) by mouth every 6 (six) hours as needed for pain. Active vitamin E 100 units capsule Take 1 capsule (100 Units total) by mouth in the morning. Active biotin (BIOTIN) 2,500 mcg capsule Take 2 capsules (5,000 mcg total) by mouth in the morning. Active melatonin (CIRCADIN) tablet Take 10 mg by mouth nightly. Active aspirin 81 mg Take 1 tablet (81 mg total) by mouth in the morning. Active Active Problems No known active problems Social History Tobacco Use Types Packs/Day Years Used Date Smoking Tobacco: Former Cigarettes Smokeless Tobacco: Never Comments:quit 1999 Alcohol Use Standard Drinks/Week Comments Not Currently 0 (1 standard drink = 0.6 oz pur e alcohol) Childcare Answer Date Recorded Childcare Unknown 01/24/2019 Employment Answer Date Recorded Employment Unknown 01/24/2019 Hunger Screening Answer Date Recorded Within the past 12 months we worried whether our food would run out before we got money to buy more. Never True 03/18/2024 Within the past 12 months th e food we bought just didn't last and we didn't have money to get more. Never True 03/18/2024 Purpose - Life Answer Date Recorded Purpose and direction in life Unknown Comments No Sex and Gender Information Value Date Recorded Sex Assigned at Not on file Legal Sex Female 11:38 AM EDT Gender Identity Not on file Sexual Orientation Not on file Last Filed Vital Signs Vital Sign Reading Time Taken Comments Blood Pressure 166/73 03/18/2024 11:04 AM EDT Pulse 73 03/18/2024 11:04 AM EDT Temperature 36.6 C (97.9 F) 03/18/2024 11:04 AM EDT Respiratory Rate 18 03/18/2024 11:04 AM EDT Oxygen Saturation 100% 03/18/2024 11:04 AM EDT Inhaled Oxygen Concentration - - Weight 82.6 kg (182 lb) 03/18/2024 11:04 AM EDT Height 152.4 cm (5') 03/18/2024 11:04 AM EDT Body Mass Index 35.54 03/18/2024 11:04 AM EDT Plan of Treatment Health Maintenance Due Date Last Done Comments Depression Screening 1957 Tobacco Screening 1957 Fall Risk Screening 2010 Zoster (Shingles) Vaccine (2 of 2) 10/18/2022 08/23/2022 COVID-19 Vaccine (3 - 2023-2 5 season) 2024 10/01/2020, 09/10/2020 Influenza Vaccine 04/15/2025 06/06/2023, , 09/15/2020, Additional history exists DTaP,Tdap and Td Vaccines (2 - Td or Tdap) 07/31/2025 07/31/2015 Medical Devices Not on file Insurance [facility] MEDICARE Care Teams Agricultural Inspector Relationship Specialty Start Date End Date Kofi Bowers MD [address] [address] PCP - General Internal Medicine 10/27/22
--- NOTE | 2025-01-24 10:33 | PM.CN ---
Consult Note: HPI Data of Consult Patient: known to practice within the last 3 years Requesting Physician: Zoila Kenyon NP Primary Care Provider: BELEN ZALDIVAR Consult Narrative Reason for consult: f/u Narrative: Cece Mobley a pleasant 79 year old female with chronic low back pain post thoracic/lumbar fusion and DPN presents for evaluation. Has noticed increasing low back pain/spasms and radicular pain since last visit. no falls or injury. has been utilizing her SCS with mild relief, has not contacted her rep to discuss program settings. Pain 7-8/10 spasming. Pain increasing to 10/10 with standing, walking, twisting, pushing, pulling, housework, lifting, bending, activity. Mild improvement with sitting lying and heat. PCP started pt on baclofen 10mg TID PRN which causes drowsiness. cc:: CC: Zoila Kenyon NP Review of Systems ROS Status of ROS 10 or more systems reviewed and unremarkable except as noted in history and below [facility] Medical History Facial trauma (~2017) ?S09.93XA - Unspecified injury of face, initial encounter (ICD-10) Chronic insomnia ?F51.04 - Psychophysiologic insomnia (ICD-10) Low iron ?E61.1 - Iron deficiency (ICD-10) Pneumonia ?J18.9 - Pneumonia, unspecified organism (ICD-10) Restless leg ?G25.81 - Restless legs syndrome (ICD-10) GERD (gastroesophageal reflux disease) ?K21.9 - Gastro-esophageal reflux disease without esophagitis (ICD-10) Activity intolerance ?R68.89 - Other general symptoms and signs (ICD-10) Extremity edema ?R60.0 - Localized edema (ICD-10) Diabetes ?E11.9 - Type 2 diabetes mellitus without complications (ICD-10) Hypothyroidism ?E03.9 - Hypothyroidism, unspecified (ICD-10) Low back pain ?M54.50 - Low back pain, unspecified (ICD-10) Osteoarthritis ?M19.90 - Unspecified osteoarthritis, unspecified site (ICD-10) Diabetes 1.5, managed as type 2 ?E13.9 - Other specified diabetes mellitus without complications (ICD-10) Sleep apnea ?G47.30 - Sleep apnea, unspecified (ICD-10) High cholesterol ?E78.00 - Pure hypercholesterolemia, unspecified (ICD-10) Hypertension ?I10 - Essential (primary) hypertension (ICD-10) Surgical History History of facial surgery (~2017) ?Z98.890 - Other specified postprocedural states (ICD-10) History of colonoscopy ?Z98.890 - Other specified postprocedural states (ICD-10) History of radiofrequency ablation (RFA) of nerve of lumbar spine ?Z98.890 - Other specified postprocedural states (ICD-10) S/P epidural steroid injection ?Z92.241 - Personal history of systemic steroid therapy (ICD-10) Previous back surgery ?Z98.890 - Other specified postprocedural states (ICD-10) History of cholecystectomy ?Z90.49 - Acquired absence of other specified parts of digestive tract (ICD-10) Hx of tonsillectomy ?Z90.89 - Acquired absence of other organs (ICD-10) History of appendectomy ?Z90.49 - Acquired absence of other specified parts of digestive tract (ICD-10) Family History Other Cancer Family history of coronary artery disease Family history of diabetes mellitus Family history of heart disease Family history of hypertension Social History Within the past year, how often did you have a drink containing alcohol: never Score interpretation: A score less than 3 is consistent with normal alcohol consumption. Smoking status: Never smoker Non-prescribed substance use: denies use Highest level of school completed/degree received: Associate degree: occupational, technical, vocational program Meds Home Medications and Allergies Home Medications ?Medication ?Instructions ?Recorded ?Confirmed ?Type acarbose 100 mg tablet 100 mg PO BID 10/19/23 08/13/24 History amlodipine 10 mg tablet 10 mg PO DAILY 10/19/23 08/13/24 History aspirin 81 mg capsule 81 mg PO DAILY 10/19/23 08/13/24 History carvedilol 25 mg tablet 25 mg PO BID 10/19/23 08/13/24 History dulaglutide 4.5 mg/0.5 mL 4.5 mg subcut .weekly 10/19/23 08/13/24 History subcutaneous pen injector (Trulicity) furosemide 40 mg tablet 40 mg PO DAILY 10/19/23 08/13/24 History insulin detemir U-100 100 unit/mL 60 unit subcut DAILY 10/19/23 08/13/24 History (3 mL) subcutaneous pen (Levemir FlexPen) liothyronine 25 mcg tablet 12.5 mcg PO BID 10/19/23 08/13/24 History loratadine 10 mg tablet 10 mg PO DAILY PRN allergic 10/19/23 08/13/24 History symptoms losartan 100 1 tab PO DAILY 10/19/23 08/13/24 History mg-hydrochlorothiazide 25 mg tablet lovastatin 20 mg tablet 20 mg PO DAILY 10/19/23 08/13/24 History metformin 1,000 mg tablet 1,000 mg PO BID 10/19/23 08/13/24 History omeprazole 20 mg capsule,delayed 20 mg PO DAILY 10/19/23 08/13/24 History release potassium chloride 20 mEq 20 meq PO DAILY 10/19/23 08/13/24 History tablet,extended release quetiapine 50 mg tablet 50 mg PO DAILY 10/19/23 08/13/24 History tramadol 50 mg tablet 100 mg PO Q12H PRN pain 10/19/23 08/13/24 History acetaminophen 500 mg capsule 1,000 mg PO BID 07/18/24 08/13/24 History ascorbic acid (vitamin C) 500 mg 500 mg PO BID 07/18/24 08/13/24 History capsule calcium 600 mg (as 1 tab PO DAILY 07/18/24 08/13/24 History carbonate)-vitamin D3 5 mcg (200 unit) tablet (Calcium 600 + D(3)) cholecalciferol (vitamin D3) 125 5,000 unit PO DAILY 07/18/24 08/13/24 History mcg (5,000 unit) capsule vitamin B complex (B-Complex 1 tab PO DAILY 07/18/24 08/13/24 History tablet) vitamin E 268 mg (400 unit) capsule 268 mg PO BID 07/18/24 08/13/24 History hydrocodone 5 mg-acetaminophen 325 1 tab PO QID PRN pain #12 tabs 08/13/24 Rx mg tablet hydrocodone 5 mg-acetaminophen 325 1 tab PO QID PRN pain #12 tabs 08/13/24 Rx mg tablet baclofen 10 mg tablet 10 mg PO BID PRN muscle spasm 10/29/24 10/29/24 History Allergies Allergy/AdvReac Type Severity Reaction Status Date / Time iodine Allergy Severe Anaphylaxis Verified 08/13/24 06:57 levofloxacin (From Levaquin) Allergy Rash Verified 08/13/24 06:57 Exam Constitutional Documenting provider has reviewed patient's vital signs: yes Common normals: no apparent distress, oriented x3, healthy appearing, alert and well nourished General appearance: cooperative HENMT Common normals: normocephalic, hearing grossly normal bilaterally and moist oral mucous membranes Head and scalp: normocephalic Eye Common normals: PERRL Pupil: PERRL Neck & C-Spine Common normals: full ROM General: normal visual inspection Chest Common normals: inspection of chest normal Respiratory Common normals: normal respiratory effort, no retractions and no use of accessory muscles Back & Pelvis Lumbar spine/lower back: pain with ROM, lumbar spinal tenderness, straight leg raise positive right and straight leg raise positive left Other: decreased sensation to bilateral L5-S1 strength 4/5 in BLE Neuro Common normals: oriented x3 Sensorium/orientation: alert Psych Common normals: mental status grossly normal, thought process normal, cooperative, affect normal, speech normal and activity/motor behavior normal Speech: normal speech Thought process: normal thought process Results Additional Findings Additional findings: If on a controlled substance or opioids, I have checked an [place] report on this patient and there are no aberrancies noted in the prescribing history.??If on a controlled substance or opioid a drug screen was completed and reviewed within the last year, and if there has not been a drug screen completed we ordered one today to monitor higher risk, state monitored pain medication use. As part of providing excellent, safe, comprehensive care, the following was completed at our patient's visit: 1. A medication reconciliation and review to ensure accurate knowledge of current/active medications, including asking our patients to inform us about any [id number] medications or herbal remedies/nutritional supplements/alternative remedies. 2. A review to specifically ensure our patients have had annual screening for screening for depression, screening for tobacco use, and screening for unhealthy alcohol use. For concerning screenings had a discussion with the patient, provided patient education, and recommended follow-up with primary care provider when appropriate. If patient noted with a risk of falling, they received education on strength, gait, and balance training to prevent future risk of falling. Portions of this note may have been carried over from the previous visit and updated as appropriate. Please note this office utilizes paper charting in addition to the electronic medical record. A list of current medications, vitals, and PMH is available there as the clinical staff outside of myself do not have access to iDiDiD charting during the clinic day operations. As part of providing quality comprehensive care the current medications, vitals, and PMH were reviewed in the paper chart. Assessment and Plan Assessment and Plan (1) Lumbar radiculopathy: Assessment and Plan: The patient has had over 3 months of moderate to severe low back and BLE pain with functional impairment and inadequate response to conservative care including NSAIDS (unless there are contraindication such as concurrent blood thinners), multiple oral or topical pain medications, and home exercise program/physical therapy.? Patient has completed >6 weeks of guided home exercise program and/or formal physical therapy program without relief of their symptoms.? The Oswestry Disability Index was completed, and the patient scored a 49%.? The patient noted the following:?? moderate to severe pain impacting ADLs, sitting, standing, walking, sleep, social life, travel We discussed the risks and benefits of the procedure with the patient, and we are NOT planning on using sedation as outlined in the guidelines from Medicare unless there is a documented reason that sedation would be strongly recommended.?? ?The procedure will be completed with fluoroscopic guidance.? (2) Encounter for fitting and adjustment of spinal cord stimulator: (3) Failed back syndrome: (4) History of thoracic spinal fusion: (5) History of lumbar fusion: (6) Painful diabetic neuropathy: Plan update thoracic xray to assess scs lead placement change baclofen 5-10mg TID PRN pain/spasms continue HEP as tolerated bilateral L5-S1 TFESI under fluoroscopy for lumbar radiculopathy f/u 2 weeks after KAVEH
== END 2025-01-24 10:10 | disposition home or self-care (01) ==
LOC: PM 10:10
PROVIDERS: PCP Internal Medicine; Visit Provider Nurse Practitioner
DX: M54.16 Radiculopathy, lumbar region (principal); Z45.42 Encounter for adjustment and management of neurostimulator; M96.1 Postlaminectomy syndrome, not elsewhere classified; M85.88 Other specified disorders of bone density and structure, other site; M41.84 Other forms of scoliosis, thoracic region; M51.34 Other intervertebral disc degeneration, thoracic region; M43.26 Fusion of spine, lumbar region; M43.24 Fusion of spine, thoracic region; E11.40 Type 2 diabetes mellitus with diabetic neuropathy, unspecified
CPT/HCPCS: 72070; G0463

== ENCOUNTER 2025-01-24 10:46 | Outpatient (OUT) | payer MEDICARE, SELFPAY ==
--- OUTSIDE RECORDS SUMMARY | 2025-01-24 10:51 | XMS_ITS | Encounter Summary ---
Author Organization [facility] Address [address] [place] [address] Care Team Providers Care Patient Service Technician Pst Name Role Phone Kofi Bowers MD Primary Care Provider [phone] Encounter Details Date Type Department Care Team [...] [facility] [address] [facility] 110 [place] [address] Kofi Bowers MD [address] [facility] 110 [place] [address] documented as of this encounter Procedures Procedure Name Priority Date/Time Associated Diagnosis Comments XR LUMBAR SPINE MIN 4V 05/11/2024 10:18 AM EDT documented in this encounter Results * XR LUMBAR SPINE MIN 4V (05/11/2024 10:18 AM EDT) Anatomical Region Laterality Modality Other 05/11/2024 10:1 8 AM EDT Narrative 05/11/2024 10:21 AM EDT [address] [address] XRay Report Signed Patient: KONRAD MOBLEY MR#: [id number] : 1945 Acct:[id number] Age/Sex: 79 / F ADM Date: 05/10/24 Loc: RAD Attending Dr: Rylee Rouse DIRECTOR SPECIALTY Ordering Physician: Rylee Rouse NP Date of Service: 05/10/24 Procedure(s): XR lumbar spine min 4V Accession Number(s): [id number] cc: KOFI BOWERS ; Rylee Rouse NP [place] [address] Patient Name: KONRAD MOBLEY MRN: [id number] date: 1945 Sex: F Assigned Patient Location: [facility] Current Patient Location: [facility] Accession/Order Number: [id number] Exam Date: 05/10/2024 13:28 Report Date: 05/11/2024 [...] Signed By: 05/11/24 1021 DD/ 1018 TD/TT: Web Systems Developer: Procedure Note Radiology, Radiologist, - 05/11/2024 [place] [address] XRay Report Signed Patient: KONRAD MOBLEY R#: [id number] : 5Acct:[id number] Age/Sex: 79 / FADM Date: 05/10/24 Loc: RAD Attending Dr: Rylee Rouse DIRECTOR SPECIALTY Ordering Physician: Rylee Rouse NP Date of Service: 05/10/24 Procedure(s): XR lumbar spine min 4V Accession Number(s): [id number] cc: KOFI BOWERS ; Rylee Rouse NP [address] [place] [address] Patient Name: KONRAD MOBLEY MRN: [id number] date: 1945 Sex: F Assigned Patient Location: [facility] Current Patient Location: [facility] Accession/Order Number: [id number] Exam Date: 05/10/2024 13:28 Report Date: 05/11/2024 [...] M.D. Signed By:05/11/24 1021 DD/ 1018 TD/TT: Web Systems Developer: us Generic External Data Provider [facility] Final Result documented in this encounter Visit Diagnoses Not on filedocumented in this encounter Additional Health Concerns Assessment Noted Time PHQ-9 Depression Total Score: 3 04/09/20 24 10:00 AM EDT documented as of this encounter Care Teams Patient Service Technician Pst Relationship Specialty Start Date End Date Kofi Bowers MD [address] [address] PCP - General Internal Medicine 12/22/22 documented as of this encounter
--- OUTSIDE RECORDS SUMMARY | 2025-01-24 10:51 | XMS_ITS | Encounter Summary ---
Author Organization [facility] Address [address] [facility] [place] [address] Care Team Providers Care Train Announcer Name Role Phone Kofi Bowers MD Primary Care Provider [phone] Encounter Details Date Type Department Care Team ([facility] Contact Info) Description 12/17/2022 Abstract [facility] [address] [facility] 110 [place] [phone] Kofi Bowers MD 112 [facility] 110 [place] [address] Social History Tobacco Use Types Packs/Day Years [...] Upcoming Encounters Date Type Department Care Team ([facility] Contact Info) Description 04/17/2025 11:00 AM EDT Office Visit [facility] [address] [facility] [address] [place] [address] Kofi Bowers MD 112 [facility] 110 [place] [address] documented as of this encounter Visit Diagnoses Not on filedocumented in this encounter Care Teams Train Announcer Relationship Specialty Start Date End Date Kofi Bowers MD 112 [facility] 110 [place] [address] PCP - General Internal Medicine 12/22/22 documented as of this encounter
--- OUTSIDE RECORDS SUMMARY | 2025-01-24 10:51 | XMS_ITS | Encounter Summary ---
Author Organization [facility] Address [address] [facility] [address] Care Team Providers Care Registered Physical Therapist Name Role Phone Kofi Bowers MD Primary Care Provider [phone] Encounter Details Date Type Department Care Team ([facility] Contact Info) Description 05/03/2024 Abstract [facility] [address] [facility] [address] [place] [phone] Kofi Bowers MD [address] [facility] 110 [place] [address] Social History Tobacco Use Types Packs/Day Years [...] Office Visit [facility] [address] [facility] [address] [place] [phone] Kofi Bowers MD 112 [facility] [address] [place] [address] documented as of this encounter Visit Diagnoses Not on filedocumented in this encounter Additional Health Concerns Assessment Noted Time PHQ-9 Depression Total Score: 3 04/09/20 24 10:00 AM EDT documented as of this encounter Care Teams Registered Physical Therapist Relationship Specialty Start Date End Date Kofi Bowers MD [address] [address] PCP - General Internal Medicine 12/22/22 documented as of this encounter
--- OUTSIDE RECORDS SUMMARY | 2025-01-24 10:51 | XMS_ITS | Encounter Summary ---
Author Organization [facility] Address [address] [facility] [place] [address] Care Team Providers Care Executive Search Consultant Name Role Phone Kofi Bowers MD Primary Care Provider [phone] Encounter Details Date Type Department Care Team ([facility] Contact Info) Description 08/28/2024 Abstract [facility] [address] [facility] [address] [place] [phone] Kofi Bowers MD 112 [facility] 110 [place] [address] Social History Tobacco Use Types Packs/Day Years [...] Office Visit [facility] [address] [facility] [address] [place] [phone] Kofi Bowers MD 112 [facility] 110 [place] [address] documented as of this encounter Visit Diagnoses Not on filedocumented in this encounter Additional Health Concerns Assessment Noted Time PHQ-9 Depression Total Score: 3 04/09/20 24 10:00 AM EDT documented as of this encounter Care Teams Executive Search Consultant Relationship Specialty Start Date End Date Kofi Bowers MD [address] [address] PCP - General Internal Medicine 12/22/22 documented as of this encounter
--- OUTSIDE RECORDS SUMMARY | 2025-01-24 10:51 | XMS_ITS | Encounter Summary ---
Author Organization [facility] Address [address] [facility] [place] [address] Care Team Providers Care Special Education Curriculum Specialist Name Role Phone Kofi Bowers MD Primary Care Provider [phone] Encounter Details Date Type Department Care Team (Late Contact Info) Description 01/14/2025 Bamboo flowsheet [facility] [address] [facility] [address] [place] [phone] Skye Perla PA 112 [facility] 110 [place], [place] [phone] Social History Tobacco Use Types Packs/Day Years [...] Office Visit [facility] [address] [facility] 110 [place] [phone] Kofi Bowers MD 112 [facility] 110 [place], [place] [phone] documented as of this encounter Visit Diagnoses Not on filedocumented in this encounter Additional Health Concerns Assessment Noted Time PHQ-9 Depression Total Score: 3 04/09/20 24 10:00 AM EDT documented as of this encounter Care Teams Special Education Curriculum Specialist Relationship Specialty Start Date End Date Kofi Bowers MD [address] [address] PCP - General Internal Medicine 12/22/22 documented as of this encounter
--- OUTSIDE RECORDS SUMMARY | 2025-01-24 10:51 | XMS_ITS | Encounter Summary ---
Author Organization [facility] Address [address] [facility] [place] [address] Care Team Providers Care Social Services Analyst Name Role Phone Kofi Bowers MD Primary Care Provider [phone] Encounter Details Date Type Department Care Team ([facility] Contact Info) Description 03/21/2023 Abstract [facility] [address] [facility] 110 [place] [phone] Kofi Bowers MD 112 [facility] 110 [place] [address] Social History Tobacco Use Types Packs/Day Years [...] Office Visit [facility] [address] [facility] 110 [place] [phone] Kofi Bowers MD 112 [facility] 110 [place] [address] documented as of this encounter Visit Diagnoses Not on filedocumented in this encounter Care Teams Social Services Analyst Relationship Specialty Start Date End Date Kofi Bowers MD 112 [facility] 110 [place] [address] PCP - General Internal Medicine 12/22/22 documented as of this encounter
--- OUTSIDE RECORDS SUMMARY | 2025-01-24 10:51 | XMS_ITS | Encounter Summary ---
Author Organization [facility] Address [address] [place] [address] Care Team Providers Care Cake Mixer Name Role Phone Kofi Bowers MD Primary Care Provider [phone] Encounter Details Date Type Department Care Team [...] Visit [facility] [address] [facility] 110 [place] [address] Kofi Bowers MD 112 [facility] 110 [place] [address] documented as of this encounter Procedures Procedure Name Priority Date/Time Associated Diagnosis Comments XR THORACIC SPINE 2 VIEWS 05/11/2024 10:18 AM EDT documented in this encounter Results * XR thoracic spine 2 views (05/11/2024 10:18 AM EDT) Anatomical Region Laterality Modality Spine, T-spine Radiographic Kandis ging 05/11/2024 10:1 8 AM EDT Narrative 05/11/2024 10:21 [place] [address] XRay Report Signed Patient: KONRAD MOBLEY MR#: [id number] : 1945 Acct:[id number] Age/Sex: 79 / F ADM Date: 05/10/24 Loc: RAD Attending Dr: Zoila Rouse NP Ordering Physician: Zoila Rouse NP Date of Service: 05/10/24 Procedure(s): XR thoracic spine 2V Accession Number(s): [id number] cc: KOFI BOWERS ; Zoila Rouse NP [place] [address] Patient Name: KONRAD MOBLEY MRN: [id number] date: 1945 Sex: F Assigned Patient Location: [facility] Current Patient Location: [facility] Accession/Order Number: [id number] Exam Date: 05/10/2024 13:28 Report Date: 05/11/2024 [...] Signed By: 05/11/24 1021 DD/ 1018 TD/TT: Telephone Station Installer: Procedure Note Radiology, Radiologist, - 05/11/2024 [place] [address] XRay Report Signed Patient: KONRAD MOBLEY R#: [id number] : 5Acct:[id number] Age/Sex: 79 / FADM Date: 05/10/24 Loc: RAD Attending Dr: Zoila Rouse HOUSING MANAGER Ordering Physician: Zoila Rouse NP Date of Service: 05/10/24 Procedure(s): XR thoracic spine 2V Accession Number(s): [id number] cc: KOFI BOWERS ; Zoila Rouse NP [address] [place] [address] Patient Name: KONRAD MOBLEY MRN: [id number] date: 1945 Sex: F Assigned Patient Location: [facility] Current Patient Location: [facility] Accession/Order Number: [id number] Exam Date: 05/10/2024 13:28 Report Date: 05/11/2024 [...] M.D. Signed By:05/11/24 1021 DD/ 1018 TD/TT: Telephone Station Installer: us Generic External Data Provider IMG XR PROCEDURES Final Result documented in this encounter Visit Diagnoses Not on filedocumented in this encounter Additional Health Concerns Assessment Noted Time PHQ-9 Depression Total Score: 3 04/09/20 24 10:00 AM EDT documented as of this encounter Care Teams Cake Mixer Relationship Specialty Start Date End Date Kofi Bowers MD [address] [address] PCP - General Internal Medicine 12/22/22 documented as of this encounter
--- OUTSIDE RECORDS SUMMARY | 2025-01-24 10:51 | XMS_ITS | Encounter Summary ---
Author Organization [facility] Address [address] [facility] [place] [address] Care Team Providers Care Brazing Machine Operator Name Role Phone Kofi Bowers MD Primary Care Provider [phone] Encounter Details Date Type Department Care Team [...] [facility] [address] [facility] 110 [place] [phone] Kofi Bowers MD [address] [facility] [address] [place] [address] documented as of this encounter Visit Diagnoses Not on filedocumented in this encounter Additional Health Concerns Assessment Noted Time PHQ-9 Depression Total Score: 3 04/09/20 24 10:00 AM EDT documented as of this encounter Care Teams Brazing Machine Operator Relationship Specialty Start Date End Date Kofi Bowers MD [address] [facility] [address] [place] [address] PCP - General Internal Medicine 12/22/22 documented as of this encounter
--- OUTSIDE RECORDS SUMMARY | 2025-01-24 10:51 | XMS_ITS | Encounter Summary ---
Author Organization [facility] Address [address] [place] [address] Care Team Providers Care Food Cashier Name Role Phone Kofi Bowers MD Primary Care Provider [phone] Encounter Details Date Type Department Care Team [...] Visit [facility] [address] [facility] 110 [place] [address] Kofi Bowers MD [address] [facility] 110 [place] [address] documented as of this encounter Procedures Procedure Name Priority Date/Time Associated Diagnosis Comments CT LUMBAR SPINE WO IV CONTRAST 05/25/2024 9:00 AM EDT documented in this encounter Results * CT lumbar spine wo IV contrast (05/25/2024 9:00 AM EDT) Anatomical Region Laterality Modality Spine, L-spine Computed Tomogra phy 05/25/2024 9:00 AM EDT Narrative 05/25/2024 9:03 [place] [address] CT Scan Report Signed Patient: KONRAD MOBLEY MR#: [id number] : 1945 Acct:[id number] Age/Sex: 79 / F ADM Date: 05/24/24 Loc: CT Attending Dr: Esperanza Maya M.D. Ordering Physician: Esperanza Maya M.D. Date of Service: 05/24/24 Procedure(s): CT lumbar spine wo con Accession Number(s): [id number] cc: KOFI BOWERS [place] [address] Patient Name: KONRAD MOBLEY MRN: [id number] date: 1945 Sex: F Assigned Patient Location: CT Current Patient Location: Accession/Order Number: [id number] Exam Date: 05/24/2024 13:23 Report Date: 05/25/2024 [...] M.D. Signed By: 05/25/24902 DD/ 9 TD/TT: Lymphedema Therapist: Procedure Note Radiology, Radiologist, - 05/25/2024 [place] [address] CT Scan Report Signed Patient: KONRAD MOBLEY GMR#: [id number] : 5Acct:[id number] Age/Sex: 79 / FADM Date: 05/24/24 Loc: CT Attending Dr: Esperanza Maya M.D. Ordering Physician: Esperanza Maya M.D. Date of Service: 05/24/24 Procedure(s): CT lumbar spine wo con Accession Number(s): [id number] cc: KOFI BOWERS [place] [address] Patient Name: KONRAD MOBLEY MRN: [facility]:[id number] date: 1945 Sex: F Assigned Patient Location: CT Current Patient Location: Accession/Order Number: [id number] Exam Date: 05/24/2024 13:23 Report Date: 05/25/2024 [...] DE JESUS Date: 05/25/2024 09:00 Dictated By: aPtito De Jesus M.D. Signed By:05/25/24902 DD/ 9 TD/TT: Lymphedema Therapist: Generic External Data Provider IMG CT PROCEDURES Final Result documented in this encounter Visit Diagnoses Not on filedocumented in this encounter Additional Health Concerns Assessment Noted Time PHQ-9 Depression Total Score: 3 04/09/20 24 10:00 AM EDT documented as of this encounter Care Teams Food Cashier Relationship Specialty Start Date End Date Kofi Bowers MD [address] [address] PCP - General Internal Medicine 12/22/22 documented as of this encounter
--- OUTSIDE RECORDS SUMMARY | 2025-01-24 10:51 | XMS_ITS | Encounter Summary ---
Author Organization [facility] Address [address] [facility] [place] [address] Care Team Providers Care Rotor Blade Installer Name Role Phone Kofi Bowers MD Primary Care Provider [phone] Encounter Details Date Type Department Care Team (Late st Contact Info) Description 12/14/2022 Orders Only [facility] [address] [facility] 110 [place] [address] Lilly Granda LPN [address] [place] [address] Social History Tobacco Use Types Packs/Day Years [...] Visit [facility] [address] [facility] 110 [place] [address] Kofi Bowers MD [address] [facility] [address] [place] [address] documented as of this encounter Visit Diagnoses Not on filedocumented in this encounter Care Teams Rotor Blade Installer Relationship Specialty Start Date End Date Kofi Bowers MD [address] [facility] [address] [place] [address] PCP - General Internal Medicine 12/22/22 documented as of this encounter
--- OUTSIDE RECORDS SUMMARY | 2025-01-24 10:51 | XMS_ITS | Encounter Summary ---
Author Organization [facility] Address [address] [facility] [place] [address] Care Team Providers Care Casino Host Name Role Phone Kofi Bowers MD Primary Care Provider [phone] Encounter Details Date Type Department Care Team ([facility] Contact Info) Description 04/11/2024 Abstract [facility] [address] [facility] [address] [place] [phone] Kofi Bowers MD 112 [facility] 110 [place], [place] [address] Social History Tobacco Use Types Packs/Day Years [...] Office Visit [facility] [address] [facility] 110 [place] [address] Kofi Bowers MD 112 [facility] 110 [place] [address] documented as of this encounter Visit Diagnoses Not on filedocumented in this encounter Additional Health Concerns Assessment Noted Time PHQ-9 Depression Total Score: 3 04/09/20 24 10:00 AM EDT documented as of this encounter Care Teams Casino Host Relationship Specialty Start Date End Date Kofi Bowers MD [address] [address] PCP - General Internal Medicine 12/22/22 documented as of this encounter
--- OUTSIDE RECORDS SUMMARY | 2025-01-24 10:52 | XMS_ITS | Encounter Summary ---
Author Organization [facility] Address [address] [place] [address] Care Team Providers Care Allergist Immunologist Name Role Phone Kofi Bowers MD Primary Care Provider [phone] Encounter Details Date Type Department Care Team [...] Visit [facility] [address] [facility] 110 [place] [address] Kofi Bowers MD [address] [facility] 110 [place] [address] documented as of this encounter Procedures Procedure Name Priority Date/Time Associated Diagnosis Comments CT THORACIC SPINE WO IV CONTRAST 05/25/2024 9:00 AM EDT documented in this encounter Results * CT thoracic spine wo IV contrast (05/25/2024 9:00 AM EDT) Anatomical Region Laterality Modality Spine, T-spine Computed Tomogra phy 05/25/2024 9:00 AM EDT Narrative 05/25/2024 9:03 [place] [address] CT Scan Report Signed Patient: KONRAD MOBLEY MR#: [id number] : 1945 Acct:[id number] Age/Sex: 79 / F ADM Date: 05/24/24 Loc: CT Attending Dr: Esperanza Maya M.D. Ordering Physician: Esperanza Maya M.D. Date of Service: 05/24/24 Procedure(s): CT thoracic spine wo con Accession Number(s): [id number] cc: KOFI BOWERS [place] [address] Patient Name: KONRAD MOBLEY MRN: [id number] date: 1945 Sex: F Assigned Patient Location: CT Current Patient Location: Accession/Order Number: [id number] Exam Date: 05/24/2024 13:23 Report Date: 05/25/2024 [...] M.D. Signed By: 05/25/24902 DD/ 9 TD/TT: Sales Operations Specialist: Procedure Note Radiology, Radiologist, - 05/28/2024 [place] [address] CT Scan Report Signed Patient: KONRAD MOBLEY GMR#: [id number] : 5Acct:[id number] Age/Sex: 79 / FADM Date: 05/24/24 Loc: CT Attending Dr: Esperanza Maya M.D. Ordering Physician: Esperanza Maya M.D. Date of Service: 05/24/24 Procedure(s): CT thoracic spine wo con Accession Number(s): [id number] cc: KOFI BOWERS [place] [address] Patient Name: KONRAD MOBLEY MRN: [facility]:[id number] date: 1945 Sex: F Assigned Patient Location: CT Current Patient Location: Accession/Order Number: [id number] Exam Date: 05/24/2024 13:23 Report Date: 05/25/2024 [...] Jesus M.D. Signed By:05/25/24902 DD/ 9 TD/TT: Sales Operations Specialist: Generic External Data Provider IMG CT PROCEDURES Final Result documented in this encounter Visit Diagnoses Not on filedocumented in this encounter Additional Health Concerns Assessment Noted Time PHQ-9 Depression Total Score: 3 04/09/20 24 10:00 AM EDT documented as of this encounter Care Teams Allergist Immunologist Relationship Specialty Start Date End Date Kofi Bowers MD [address] [address] PCP - General Internal Medicine 12/22/22 documented as of this encounter
--- OUTSIDE RECORDS SUMMARY | 2025-01-24 10:52 | XMS_ITS | Referral Summary ---
Author Organization 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
--- OUTSIDE RECORDS SUMMARY | 2025-01-24 10:52 | XMS_ITS | Clinical Summary ---
Author Organization [employer] Address [id number] [address] [place] [address] Care Team Providers Care Machinist Helper Name Role Phone Kofi Bowers MD Primary Care Provider [phone] Allergies Active Allergy Reactions Criticality Noted Date [...] 07/31/2015 Medical Devices Not on file Insurance [facility] MEDICARE Care Teams Machinist Helper Relationship Specialty Start Date End Date Kofi Bowers MD [address] [address] PCP - General Internal Medicine 10/27/22
--- OUTSIDE RECORDS SUMMARY | 2025-01-24 10:52 | XMS_ITS | Encounter Summary ---
Author Organization [facility] Address [address] [place] [address] Care Team Providers Care Lab Intern Name Role Phone Kofi Bowers MD Primary Care Provider [phone] Encounter Details Date Type Department Care Team ([facility] Contact Info) Description 07/19/2024 Abstract [facility] [address] [facility] [address] [place] [phone] Kofi Bowers MD 112 [facility] 110 [place] [address] Social History Tobacco Use Types Packs/Day Years [...] Office Visit [facility] [address] [facility] 110 [place] [address] Kofi Bowers MD 112 [facility] 110 [place] [address] documented as of this encounter Visit Diagnoses Not on filedocumented in this encounter Additional Health Concerns Assessment Noted Time PHQ-9 Depression Total Score: 3 04/09/20 24 10:00 AM EDT documented as of this encounter Care Teams Lab Intern Relationship Specialty Start Date End Date Kofi Bowers MD [address] [address] PCP - General Internal Medicine 12/22/22 documented as of this encounter
--- OUTSIDE RECORDS SUMMARY | 2025-01-24 10:52 | XMS_ITS | Encounter Summary ---
Author Organization [facility] Address [address] [place] [address] Care Team Providers Care Manager Auto Name Role Phone Kofi Bowers MD Primary Care Provider [phone] Encounter Details Date Type Department Care Team [...] Visit [facility] [address] [facility] 110 [place] [address] Kofi Bowers MD 112 [facility] 110 [place] [address] documented as of this encounter Procedures Procedure Name Priority Date/Time Associated Diagnosis Comments ECG 12-LEAD 07/18/2024 10:38 AM EST documented in this encounter Results * ECG 12-LEAD (07/18/2024 10:38 AM EST) Anatomical Region Laterality Modality Other 07/18/2024 10:3 8 AM EST Narrative 07/18/2024 10:56 [place] [address] Electrocardiograph Report Signed Patient: KONRAD MOBLEY MR#: [id number] : 1945 Acct:[id number] Age/Sex: 79 / F ADM Date: 07/18/24 Loc: PST Attending Dr: Esperanza Maya M.D. Ordering Physician: Esperanza Maya M.D. Date of Service: 07/18/24 Procedure(s): ECG 12 lead Accession Number(s): [id number] cc: [facility] Test Date: 2024-07-18 Pat Name: KONRAD MOBLEY Department: Room: - Gender: Female Medical Data Analyst: : 1945 Requested By: KOFI BOWERS Order Number: [id number] Reading MD: MEGA ACUÑA Measurements Intervals [place] Rate: 84 P: 13 IL: 158 QRS: 70 QRSD: 98 T: 66 QT: 379 QTc: 450 Interpretive Statements SINUS RHYTHM WITH SINUS ARRHYTHMIA Compared to ECG 06/26/2021 12:41:20 Ventricular premature complex(es) no longer present Electronically Signed On 07-18-2024 22:55:56 EST by MEGA ACUÑA Dictated By: Mega Acuña D.O. Signed By: 07/18/24 2256 DD/ 1038 TD/TT: Mold Clamper: Procedure Note Radiology, Radiologist, MD - 07/18/2024 The [place] [id number] Electrocardiograph Report Signed Patient: KONRAD MOBLEY GMR#: [id number] : 5Acct:[id number] Age/Sex: 79 / FADM Date: 07/18/24 Loc: PST Attending Dr: Esperanza Maya M.D. Ordering Physician: Esperanza Maya M.D. Date of Service: 07/18/24 Procedure(s): ECG 12 lead Accession Number(s): [id number] cc: [facility] Test Date: 2024-07-18 Pat Name: KONRAD MOBLEY Department: Room: - Gender: Female Medical Data Analyst: : 1945 Requested By: KOFI BOWERS Order Number: [id number] Reading MD: MEGA ACUÑA Measurements Intervals [place] Rate: 84 P: 13 IL: 158 QRS: 70 QRSD: 98 T: 66 QT: 379 QTc: 450 Interpretive Statements SINUS RHYTHM WITH SINUS ARRHYTHMIA Compared to ECG 06/26/2021 12:41:20 Ventricular premature complex(es) no longer present Electronically Signed On 07-18-2024 22:55:56 EST by MEGA ACUÑA Dictated By: Mega Acuña D.O. Signed By:07/18/24 2256 DD/ 1038 TD/TT: Mold Clamper: us Generic External Data Provider [facility] Final Result documented in this encounter Visit Diagnoses Not on filedocumented in this encounter Additional Health Concerns Assessment Noted Time PHQ-9 Depression Total Score: 3 04/09/20 24 10:00 AM EDT documented as of this encounter Care Teams Manager Auto Relationship Specialty Start Date End Date Kofi Bowers MD 112 [facility] 110 [place] [address] PCP - General Internal Medicine 12/22/22 documented as of this encounter
--- OUTSIDE RECORDS SUMMARY | 2025-01-24 10:52 | XMS_ITS | Clinical Summary ---
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
--- OUTSIDE RECORDS SUMMARY | 2025-01-24 10:52 | XMS_ITS | Clinical Summary ---
Author Organization [facility] Address [address] [place] [address] Care Team Providers Care Racetrack Steward Name Role Phone Kofi Bowers MD Primary Care Provider [phone] Allergies Active Allergy Reactions Criticality Noted Date [...] time. Active cholecalciferol (Vitamin D-3) 1.25 MG (75650 UT) tablet Vitamin D3 5000IU A ctive [...] two times daily. D.A.W. 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 Ex-smoker 10/22/2015 History of fall 10/02/2015 Insomnia 06/10/2015 Diabetic polyneuropathy asso ciated with type 2 diabetes mellitus 08/15/2014 Diabetes 01/24/2014 Polyneuropathy 01/24/2014 Resolved Problems Problem Noted Date Diagnosed Date Resolved Date Low HDL (under 40) 12/14/2022 3 Encounters Date Type Department Care Team Description 01/14/2025 1:00 PM EDT Office Visit [facility] [address] [place] [address] [place] [address] Skye Perla PA Lumbar paraspinal muscle spasm (Primary Dx); Type 2 diabetes mellitus with hyperglycemia, without long-term current use of insulin ([facility]) 01/14/2025 Bamboo flowsheet [facility] [address] [place] [address] [place] [address] Skye Perla PA 01/14/2025 Travel 01/04/2025 Refill [facility] [address] [place] [address] [place] [address] Kofi Bowers MD Failed back syndrome 01/03/2025 Refill [facility] [address] [place] [address] [place] [address] Kofi Bowers MD Failed back syndrome 12/12/2024 Refill [facility] [address] [place] [address] [place] [address] Kofi Bowers MD Benign essential hypertension ; Diabetes mellitus type 2 with neurological manifestations (HCC); Gastroesophageal reflux disease without esophagitis 12/03/2024 Refill [facility] [address] [place] [address] [place] [address] Kofi Bowers MD Failed back syndrome 11/02/2024 Refill [facility] [address] [place] [address] [place] [address] Kofi Bowers MD Failed back syndrome from [...] Office Visit [facility] 112 [facility] 110 [place] [address] Kofi Bowers MD 112 [facility] 110 [place] [address] Health Maintenance Due Date Last Done Comments [...] Organization Information Site ID: [id number] Name: [facility] Address: [address] [place] [address], [address] [place] [id number] Director: Cezar Singh MD Kofi Bowers MD LAB URINE ORDERABLES Final Res ult [facility] * Color Fundus Photography - OU - Both Eyes (04/28/2020 12:00 PM EDT) Anatomical Region Laterality Modality Head Fundus Photograp hy 04/28/2020 12:0 0 PM EDT Narrative 04/28/2020 12:00 PM EDT PERFORMED AT [facility] LOCATION:[id number] Procedure Note CONVERSION, GENERIC - 12/29/2022 PERFORMED AT [facility] LOCATION:[id number] Carlos Castellon MD OPHTH PHOTOGRAPHY Final Resu lt from Last 3 Months or Most Recently Relevant to Health Maintenance Insurance [employer] MEDICARE Care Teams Racetrack Steward Relationship Specialty Start Date End Date Kofi Bowers MD [address] [place] [address] [place], [place] [phone] PCP - General Internal Medicine 12/22/22
--- OUTSIDE RECORDS SUMMARY | 2025-01-24 10:52 | XMS_ITS | Encounter Summary ---
Author Organization [facility] Address [address] [facility] [place] [address] Care Team Providers Care Cement Crusher Operator Name Role Phone Kofi Bowers MD Primary Care Provider [phone] Encounter Details Date Type Department Care Team ([facility] Contact Info) Description 06/29/2024 Abstract [facility] [address] [facility] [address] [place] [address] Kofi Bowers MD 112 [facility] [address] [place], [place] [address] Social History Tobacco Use Types Packs/Day Years [...] Office Visit [facility] [address] [facility] [address] [place] [address] Kofi Bowers MD 112 [facility] [address] [place] [address] documented as of this encounter Visit Diagnoses Not on filedocumented in this encounter Additional Health Concerns Assessment Noted Time PHQ-9 Depression Total Score: 3 04/09/20 24 10:00 AM EDT documented as of this encounter Care Teams Cement Crusher Operator Relationship Specialty Start Date End Date Kofi Bowers MD [address] [address] PCP - General Internal Medicine 12/22/22 documented as of this encounter
--- OUTSIDE RECORDS SUMMARY | 2025-01-24 10:52 | XMS_ITS | Clinical Summary ---
Author Organization [facility] Address [address] [place] [address] Care Team Providers Care Farm Technician Name Role Phone Unavailable Primary Care Provider [...]
--- NOTE | 2025-01-24 10:57 | XR_ITS ---
The [address] [address] Patient Name: KONRAD GUZMAN MRN: [id number] date: 1945 Sex: F Assigned Patient Location: [facility] Current Patient Location: [facility] Accession/Order Number: [id number] Exam Date: 01/24/2025 12:17 Report Date: 01/24/2025 12:21 At the request of: RYLEE ROUSE NP Procedure: XR thoracic spine 2V THORACIC SPINE -2 views: CLINICAL HISTORY: Acute back spasms for the past 2 weeks, balance issues and lower extremity numbness and pain. History of spinal stimulator. COMPARISON: CT thoracic spine 05/24/2024 and plain films 05/10/2024 AP and lateral views were obtained. There is osteopenia. There is subtle dextroscoliotic curvature. Similar minor wedge deformity of a midthoracic vertebral body is noted. No acute compression fractures or displacement are seen. The pedicles are intact. Endplate spurring is seen throughout. A dorsal stimulator is identified with leads extending up to T7. There are no paraspinal soft tissue abnormalities. XR/XR thoracic spine 2V IMPRESSION: OSTEOPENIA, SCOLIOSIS AND DEGENERATIVE CHANGES. NO ACUTE FINDINGS. Impression dictated by: Skye Ramírez M.D. 01/24/2025 12:21 PM Dictation Location: [place] [address] Electronically authenticated by: [id number] Y Date: 01/24/2025 12:21
== END 2025-01-24 10:47 | disposition home or self-care (01) ==
LOC: RAD 10:49
PROVIDERS: PCP Internal Medicine; Visit Provider Nurse Practitioner
DX: Z45.42 Encounter for adjustment and management of neurostimulator (principal); M85.88 Other specified disorders of bone density and structure, other site; M41.84 Other forms of scoliosis, thoracic region; M51.34 Other intervertebral disc degeneration, thoracic region
CPT/HCPCS: 72070

== ENCOUNTER 2025-02-04 10:04 | Day surgery (SDC) | payer MEDICARE, SELFPAY ==
--- OUTSIDE RECORDS SUMMARY | 2025-02-04 10:07 | XMS_ITS | Encounter Summary ---
Author Organization [facility] Address [address] [facility] [place] [address] Care Team Providers Care Director Of Food And Nutrition Services Name Role Phone Kofi Bowers MD Primary Care Provider [phone] Encounter Details Date Type Department Care Team (Late st Contact Info) Description 12/14/2022 Orders Only [facility] [address] [facility] [address] [place] [address] Lilly Granda LPN [address] [place] [address] Social History Tobacco Use Types Packs/Day Years [...] Visit [facility] [address] [facility] [address] [place] [address] Kofi Bowers MD [address] [place] [address] [place] [address] documented as of this encounter Visit Diagnoses Not on filedocumented in this encounter Care Teams Director Of Food And Nutrition Services Relationship Specialty Start Date End Date Kofi Bowers MD [address] [place] [address] [place] [address] PCP - General Internal Medicine 12/22/22 documented as of this encounter
--- OUTSIDE RECORDS SUMMARY | 2025-02-04 10:07 | XMS_ITS | Encounter Summary ---
Author Organization [facility] Address [address] [place] [address] Care Team Providers Care Developmental Education Instructor Name Role Phone Kofi Bowers MD Primary Care Provider [phone] Encounter Details Date Type Department Care Team (Late Contact Info) Description 01/24/2025 Clinisync Result Encounter [facility] External Department Unsolicited [...] [facility] [address] [place] [address] Kofi Bowers MD 112 [facility] 110 [place] [address] documented as of this encounter Procedures Procedure Name Priority Date/Time Associated Diagnosis Comments XR THORACIC SPINE 2 VIEWS 01/24/2025 12:21 PM EDT documented in this encounter Results * XR thoracic spine 2 views (01/24/2025 12:21 PM EDT) Anatomical Region Laterality Modality Spine, T-spine Radiographic Kandis ging 01/24/2025 12:2 1 PM EDT Narrative 01/24/2025 12:23 PM EDT [address] [address] XRay Report Signed Patient: KONRAD MOBLEY MR#: [id number] : 1945 Acct:[id number] Age/Sex: 79 / F ADM Date: 01/24/25 Loc: RAD Attending Dr: Zoila Rouse NP Ordering Physician: Zoila Rouse NP Date of Service: 01/24/25 Procedure(s): XR thoracic spine 2V Accession Number(s): [id number] cc: KOFI BOWERS ; Zoila Rouse NP [address] [address] Patient Name: KONRAD MOBLEY MRN: [id number] date: 1945 Sex: F Assigned Patient Location: [facility] Current Patient Location: [facility] Accession/Order Number: [id number] Exam Date: 01/24/2025 12:17 Report Date: 01/24/2025 12:21 At the request of: ZOILA ROUSE NP Procedure: XR thoracic spine 2V THORACIC SPINE -2 views: CLINICAL HISTORY: Acute back spasms for the past 2 weeks, balance issues and lower extremity numbness and pain. History of spinal stimulator. COMPARISON: CT thoracic spine 05/24/2024 and plain films 05/10/2024 AP and lateral views were obtained. There is osteopenia. There is subtle dextroscoliotic curvature. Similar minor wedge deformity of a midthoracic vertebral body is noted. No acute compression fractures or displacement are seen. The pedicles are intact. Endplate spurring is seen throughout. A dorsal stimulator is identified with leads extending up to T7. There are no paraspinal soft tissue abnormalities. XR/XR thoracic spine 2V IMPRESSION: OSTEOPENIA, SCOLIOSIS AND DEGENERATIVE CHANGES. NO ACUTE FINDINGS. Impression dictated by: Skye Ramírez M.D. 01/24/2025 12:21 PM Dictation Location: [place] [address] Electronically authenticated by: [id number] Y Date: 01/24/2025 12:21 Dictated By: Skye Ramírez M.D. 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: Human Resources Officer: Procedure Note Radiology, Radiologist, MD - 01/24/2025 [place] [address] XRay Report Signed Patient: KONRAD MOBLEY GMR#: [id number] : 5Acct:[id number] Age/Sex: 79 / FADM Date: 01/24/25 Loc: RAD Attending Dr: Zoila Rouse NP Ordering Physician: Zoila Rouse NP Date of Service: 01/24/25 Procedure(s): XR thoracic spine 2V Accession Number(s): [id number] cc: KOFI BOWERS ; Zoila Rouse NP The [place] [id number] Patient Name: KONRAD MOBLEY MRN: [id number]:[id number] date: 1945 Sex: F Assigned Patient Location: [facility] Current Patient Location: [facility] Accession/Order Number: [id number] Exam Date: 01/24/2025 12:17 Report Date: 01/24/2025 12:21 At the request of: ZOILA ROUSE NP Procedure: XR thoracic spine 2V THORACIC SPINE -2 views: CLINICAL HISTORY: Acute back spasms for the past 2 weeks, balance issuesand lower extremity numbness and pain. History of spinal stimulator. COMPARISON: CT thoracic spine 05/24/2024 and plain films 05/10/2024 AP and lateral views were obtained. There is osteopenia. There is subtle dextroscoliotic curvature. Similar minor wedge deformity of a midthoracic vertebral body is noted. No acute compression fractures or displacementare seen. The pedicles are intact. Endplate spurring is seen throughout. A dorsal stimulator is identified with leads extending up to T7. There areno paraspinal soft tissue abnormalities. XR/XR thoracic spine 2V IMPRESSION: OSTEOPENIA, SCOLIOSIS AND DEGENERATIVE CHANGES. NO ACUTE FINDINGS. Impression dictated by: Skye Ramírez M.D. 01/24/2025 12:21 PM Dictation Location: [place] [address] Electronically authenticated by: [id number] Y Date: 2:21 Dictated By: Skye Ramírez M.D. Signed By:01/24/25 1223 DD/ 1221 TD/TT: Human Resources Officer: us Generic External Data Provider IMG XR PROCEDURES Final Result documented in this encounter Visit Diagnoses Not on filedocumented in this encounter Additional Health Concerns Assessment Noted Time PHQ-9 Depression Total Score: 3 04/09/20 24 10:00 AM EDT documented as of this encounter Care Teams Developmental Education Instructor Relationship Specialty Start Date End Date Kofi Bowers MD [address] [address] PCP - General Internal Medicine 12/22/22 documented as of this encounter
--- OUTSIDE RECORDS SUMMARY | 2025-02-04 10:07 | XMS_ITS | Clinical Summary ---
Author Organization [facility] Address [address] [place] [address] Care Team Providers Care Paring Machine Operator Name Role Phone Unavailable Primary Care Provider [...]
--- OUTSIDE RECORDS SUMMARY | 2025-02-04 10:07 | XMS_ITS | Encounter Summary ---
Author Organization [facility] Address [address] [place] [address] Care Team Providers Care Porcelain Waxer Name Role Phone Kofi Bowers MD Primary Care Provider [phone] Encounter Details Date Type Department Care Team [...] [facility] [address] [facility] 110 [place] [address] Kofi Bowers MD [address] [facility] 110 [place] [address] documented as of this encounter Procedures Procedure Name Priority Date/Time Associated Diagnosis Comments CT LUMBAR SPINE WO IV CONTRAST 05/25/2024 9:00 AM EDT documented in this encounter Results * CT lumbar spine wo IV contrast (05/25/2024 9:00 AM EDT) Anatomical Region Laterality Modality Spine, L-spine Computed Tomogra phy 05/25/2024 9:00 AM EDT Narrative 05/25/2024 9:03 [place] [address] CT Scan Report Signed Patient: KONRAD MOBLEY MR#: [id number] : 1945 Acct:[id number] Age/Sex: 79 / F ADM Date: 05/24/24 Loc: CT Attending Dr: Esperanza Maya M.D. Ordering Physician: Esperanza Maya M.D. Date of Service: 05/24/24 Procedure(s): CT lumbar spine wo con Accession Number(s): [id number] cc: KOFI BOWERS [place] [address] Patient Name: KONRAD MOBLEY MRN: [id number] date: 1945 Sex: F Assigned Patient Location: CT Current Patient Location: Accession/Order Number: [id number] Exam Date: 05/24/2024 13:23 Report Date: 05/25/2024 [...] M.D. Signed By: 05/25/24902 DD/ 9 TD/TT: Real Estate Agent: Procedure Note Radiology, Radiologist, - 05/25/2024 [place] [address] CT Scan Report Signed Patient: KONRAD MOBLEY GMR#: [id number] : 5Acct:[id number] Age/Sex: 79 / FADM Date: 05/24/24 Loc: CT Attending Dr: Esperanza Maya M.D. Ordering Physician: Esperanza Maya M.D. Date of Service: 05/24/24 Procedure(s): CT lumbar spine wo con Accession Number(s): [id number] cc: KOFI BOWERS [place] [address] Patient Name: KONRAD MOBLEY MRN: [facility]:[id number] date: 1945 Sex: F Assigned Patient Location: CT Current Patient Location: Accession/Order Number: [id number] Exam Date: 05/24/2024 13:23 Report Date: 05/25/2024 [...] Jesus M.D. Signed By:05/25/24902 DD/ 9 TD/TT: Real Estate Agent: Generic External Data Provider IMG CT PROCEDURES Final Result documented in this encounter Visit Diagnoses Not on filedocumented in this encounter Additional Health Concerns Assessment Noted Time PHQ-9 Depression Total Score: 3 04/09/20 24 10:00 AM EDT documented as of this encounter Care Teams Porcelain Waxer Relationship Specialty Start Date End Date Kofi Bowers MD [address] [address] PCP - General Internal Medicine 12/22/22 documented as of this encounter
--- OUTSIDE RECORDS SUMMARY | 2025-02-04 10:07 | XMS_ITS | Clinical Summary ---
Author Organization [employer] tem Address [id number] [address] [place] [address] Care Team Providers Care Turntable Man Name Role Phone Kofi Bowers MD Primary Care Provider [phone] Allergies Active Allergy Reactions Criticality Noted Date [...] 07/31/2015 Medical Devices Not on file Insurance [facility] MEDICARE Care Teams Turntable Man Relationship Specialty Start Date End Date Kofi Bowers MD [address] [address] PCP - General Internal Medicine 10/27/22
--- OUTSIDE RECORDS SUMMARY | 2025-02-04 10:07 | XMS_ITS | Clinical Summary ---
Author Organization [facility] Address [address] [place] [address] Care Team Providers Care Third Grade Teacher Name Role Phone Kofi Bowers MD Primary Care Provider [phone] Allergies Active Allergy Reactions Criticality Noted Date [...] time. Active cholecalciferol (Vitamin D-3) 1.25 MG (66113 UT) tablet Vitamin D3 5000IU A ctive [...] two times daily. D.A.W. as Sigma or [employer] Brand ONLY for 90 days 200 tablet [...] 24 025 Disconti nued(The rapy complete d) eszopiclone (Lunesta) 3 MG tablet 1 (one) time each day at the same time 025 Disconti nued(Oth er) pramipexole (Mirapex) 0.5 MG tablet 1 (one) time each day at the same time 025 Disconti nued(The rapy complete d) Hospital, Clinic, or Other Facility [...] elbow 03/11/2023 Venous hypertension of lower extremity 3 Adenomatous polyp of ascending colon 12/14/2022 Benign [...] gastrointestinal tract 06/01/2018 Lipoprotein deficiency disorder 05/01/2018 [facility] current use of insulin 01/28/2016 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 Ex-smoker 10/22/2015 History of fall 10/02/2015 Insomnia 06/10/2015 Diabetic polyneuropathy asso ciated with type 2 diabetes mellitus 08/15/2014 Diabetes 01/24/2014 Polyneuropathy 01/24/2014 Resolved Problems Problem Noted Date Diagnosed Date Resolved Date Low HDL (under 40) 12/14/2022 3 Encounters Date Type Department Care Team Description 01/24/2025 Clinisync Result Encounter [facility] External Department Unsolicited Provider, Generic External Data 01/14/2025 1:00 PM EDT Office Visit [facility] [address] [place] [address] [place] [phone] Skye Perla PA Lumbar paraspinal muscle spasm (Primary Dx); Type 2 diabetes mellitus with hyperglycemia, without long-term current use of insulin ([facility]) 01/14/2025 Bamboo flowsheet [facility] [address] [place] [address] [place] [phone] Skye Perla PA 01/14/2025 Travel 01/04/2025 Refill [facility] [address] [place] [address] [place] [phone] Kofi Bowers MD Failed back syndrome 01/03/2025 Refill [facility] [address] [place] [address] [place] [address] Kofi Bowers MD Failed back syndrome 12/12/2024 Refill [facility] [address] [place] [address] [place] [address] Kofi Bowers MD Benign essential hypertension ; Diabetes mellitus type 2 with neurological manifestations (HCC); Gastroesophageal reflux disease without esophagitis 12/03/2024 Refill [facility] [address] [place] [address] [place] [address] Kofi Bowers MD Failed back syndrome from [...] 04/17/2025 11:00 AM EDT Office Visit [facility] [address] [address] Kofi Bowers MD 112 [facility] 110 [place] [address] Health Maintenance Due Date Last Done Comments [...] SPINE 2 VIEWS 01/24/2025 12:21 PM EDT POCT GLYCATED HEMOGLOBIN, TOTAL Routine 01/14/2025 1:15 [...] Recently Relevant to Health Maintenance Results * XR thoracic spine 2 views (01/24/2025 12:21 PM EDT) Anatomical Region Laterality Modality Spine, T-spine Radiographic Kandis ging 01/24/2025 12:2 1 PM EDT Narrative 01/24/2025 12:23 PM EDT [address] [address] XRay Report Signed Patient: KONRAD MOBLEY MR#: [id number] : 1945 Acct:[id number] Age/Sex: 79 / F ADM Date: 01/24/25 Loc: RAD Attending Dr: Zoila Rouse CURB MACHINE OPERATOR Ordering Physician: Zoila Rouse NP Date of Service: 01/24/25 Procedure(s): XR thoracic spine 2V Accession Number(s): [id number] cc: KOFI BOWERS ; Zoila Rouse NP [address] [address] Patient Name: KONRAD MOBLEY MRN: [id number] date: 1945 Sex: F Assigned Patient Location: RAD Current Patient Location: RAD Accession/Order Number: [id number] Exam Date: 01/24/2025 12:17 Report Date: 01/24/2025 [...] Ramírez M.D. 01/24/2025 12:21 PM Dictation Location: [place] [address] Electronically authenticated by: [id number] Y Date: 01/24/2025 12:21 Dictated By: Skye Ramírez M.D. 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: Installation Technician: Procedure Note Radiology, Radiologist, MD - 01/24/2025 [place] [address] XRay Report Signed Patient: KONRAD MOBLEY R#: [id number] : 5Acct:[id number] Age/Sex: 79 / FADM Date: 01/24/25 Loc: RAD Attending Dr: Zoila Rouse NP Ordering Physician: Zoila Rouse NP Date of Service: 01/24/25 Procedure(s): XR thoracic spine 2V Accession Number(s): [id number] cc: KOFI BOWERS ; Zoila Rouse NP The [place] [id number] Patient Name: KONRAD MOBLEY MRN: [facility]:[id number] date: 1945 Sex: F Assigned Patient Location: [facility] Current Patient Location: [facility] Accession/Order Number: [id number] Exam Date: 01/24/2025 12:17 Report Date: 01/24/2025 [...] Ramírez M.D. 01/24/2025 12:21 PM Dictation Location: [place] [address] Electronically authenticated by: [id number] Y Date: 2:21 Dictated By: Skye Ramírez M.D. Signed By:01/24/25 1223 DD/ 1221 TD/TT: Installation Technician: Generic External Data Provider IMG XR PROCEDURES Final Result * (ABNORMAL) POCT Glycated hemoglobin, total (01/14/2025 [...] Performing Organization Information Site ID: QPT Name: [employer] [facility] Address: [address] [place] [address], [address] [place] [phone] Director: Cezar Singh MD Kofi Bowers MD LAB URINE ORDERABLES Final Res ult Performing Organization Address City/State/[facility] Co de Phone Number [facility] * Color Fundus Photography - OU - Both Eyes (04/28/2020 12:00 PM EDT) Anatomical Region Laterality Modality Head Fundus Photograp hy 04/28/2020 12:0 0 PM EDT Narrative 04/28/2020 12:00 PM EDT PERFORMED AT [facility] LOCATION:[id number] Procedure Note CONVERSION, GENERIC - 12/29/2022 PERFORMED AT [facility] LOCATION:[id number] Carlos Castellon MD OPHTH PHOTOGRAPHY Final Resu lt from Last 3 Months or Most Recently Relevant to Health Maintenance Insurance [employer] MEDICARE Care Teams Third Grade Teacher Relationship Specialty Start Date End Date Kofi Bowers MD 112 [facility] 110 [place] [address] PCP - General Internal Medicine 12/22/22
--- OUTSIDE RECORDS SUMMARY | 2025-02-04 10:07 | XMS_ITS | Encounter Summary ---
Author Organization [facility] Address [address] [place] [address] Care Team Providers Care Head Chopper Name Role Phone Kofi Bowers MD Primary [...] Visit [facility] [address] [facility] 110 [place] [address] Kofi Bowers MD [address] [facility] 110 [place] [address] documented as of this encounter Procedures Procedure Name Priority Date/Time Associated Diagnosis Comments XR LUMBAR SPINE MIN 4V 05/11/2024 10:18 AM EDT documented in this encounter Results * XR LUMBAR SPINE MIN 4V (05/11/2024 10:18 AM EDT) Anatomical Region Laterality Modality Other 05/11/2024 10:1 8 AM EDT Narrative 05/11/2024 10:21 AM EDT [address] [address] XRay Report Signed Patient: KONRAD MOBLEY MR#: [id number] : 1945 Acct:[id number] Age/Sex: 79 / F ADM Date: 05/10/24 Loc: RAD Attending Dr: Rylee Rouse BILLET INSPECTOR Ordering Physician: Rylee Rouse NP Date of Service: 05/10/24 Procedure(s): XR lumbar spine min 4V Accession Number(s): [id number] cc: KOFI BOWERS ; Rylee Rouse NP [place] [address] Patient Name: KONRAD MOBLEY MRN: [id number] date: 1945 Sex: F Assigned Patient Location: [facility] Current Patient Location: [facility] Accession/Order Number: [id number] Exam Date: 05/10/2024 13:28 Report Date: 05/11/2024 [...] Signed By: 05/11/24 1021 DD/ 1018 TD/TT: Deboner: Procedure Note Radiology, Radiologist, - 05/11/2024 [place] [address] XRay Report Signed Patient: KONRAD MOBLEY R#: [id number] : 5Acct:[id number] Age/Sex: 79 / FADM Date: 05/10/24 Loc: RAD Attending Dr: Rylee Rouse BILLET INSPECTOR Ordering Physician: Rylee Rouse NP Date of Service: 05/10/24 Procedure(s): XR lumbar spine min 4V Accession Number(s): [id number] cc: KOFI BOWERS ; Rylee Rouse NP The [place] [address] Patient Name: KONRAD MOBLEY MRN: [id number] date: 1945 Sex: F Assigned Patient Location: [facility] Current Patient Location: [facility] Accession/Order Number: [id number] Exam Date: 05/10/2024 13:28 Report Date: 05/11/2024 [...] M.D. Signed By:05/11/24 1021 DD/ 1018 TD/TT: Deboner: us Generic External Data Provider [facility] Final Result documented in this encounter Visit Diagnoses Not on filedocumented in this encounter Additional Health Concerns Assessment Noted Time PHQ-9 Depression Total Score: 3 04/09/20 24 10:00 AM EDT documented as of this encounter Care Teams Head Chopper Relationship Specialty Start Date End Date Kofi Bowers MD [address] [address] PCP - General Internal Medicine 12/22/22 documented as of this encounter
--- OUTSIDE RECORDS SUMMARY | 2025-02-04 10:07 | XMS_ITS | Encounter Summary ---
Author Organization [facility] Address [address] [place] [address] Care Team Providers Care Career Services Officer Name Role Phone Kofi Bowers MD Primary Care Provider [phone] Encounter Details Date Type Department Care Team [...] [address] [facility] 110 [place] [address] Kofi Bowers MD 112 [place] [facility] 110 [place] [address] documented as of this encounter Procedures Procedure Name Priority Date/Time Associated Diagnosis Comments ECG 12-LEAD 07/18/2024 10:38 AM EST documented in this encounter Results * ECG 12-LEAD (07/18/2024 10:38 AM EST) Anatomical Region Laterality Modality Other 07/18/2024 10:3 8 AM EST Narrative 07/18/2024 10:56 [place] [address] Electrocardiograph Report Signed Patient: KONRAD MOBLEY MR#: [id number] : 1945 Acct:[id number] Age/Sex: 79 / F ADM Date: 07/18/24 Loc: PST Attending Dr: Esperanza Maya M.D. Ordering Physician: Esperanza Maya M.D. Date of Service: 07/18/24 Procedure(s): ECG 12 lead Accession Number(s): [id number] cc: [facility] Test Date: 2024-07-18 Pat Name: KONRAD MOBLEY Department: Room: - Gender: Female Parts Specialist: : 1945 Requested By: KOFI BOWERS Order Number: [id number] Reading MD: MEGA ACUÑA Measurements Intervals [place] Rate: 84 P: 13 [place]: 158 QRS: 70 QRSD: 98 T: 66 QT: 379 QTc: 450 Interpretive Statements SINUS RHYTHM WITH SINUS ARRHYTHMIA Compared to ECG 06/26/2021 12:41:20 Ventricular premature complex(es) no longer present Electronically Signed On 07-18-2024 22:55:56 EST by MEGA ACUÑA Dictated By: Mega Acuña D.O. Signed By: 07/18/24 2256 DD/ 1038 TD/TT: Tank Terminal Gauger: Procedure Note Radiology, Radiologist, MD - 07/18/2024 The [place] [id number] Electrocardiograph Report Signed Patient: KONRAD MOBLEY GMR#: [id number] : 5Acct:[id number] Age/Sex: 79 / FADM Date: 07/18/24 Loc: PST Attending Dr: Esperanza Maya M.D. Ordering Physician: Esperanza Maya M.D. Date of Service: 07/18/24 Procedure(s): ECG 12 lead Accession Number(s): [id number] cc: [facility] Test Date: 2024-07-18 Pat Name: KONRAD MOBLEY Department: Room: - Gender: Female Parts Specialist: : 1945 Requested By: KOFI BOWERS Order Number: [id number] Reading MD: MEGA ACUÑA Measurements Intervals [place] Rate: 84 P: 13 [place]: 158 QRS: 70 QRSD: 98 T: 66 QT: 379 QTc: 450 Interpretive Statements SINUS RHYTHM WITH SINUS ARRHYTHMIA Compared to ECG 06/26/2021 12:41:20 Ventricular premature complex(es) no longer present Electronically Signed On 07-18-2024 22:55:56 EST by MEGA ACUÑA Dictated By: Mega Acuña D.O. Signed By:07/18/24 2256 DD/ 1038 TD/TT: Tank Terminal Gauger: us Generic External Data Provider [facility] Final Result documented in this encounter Visit Diagnoses Not on filedocumented in this encounter Additional Health Concerns Assessment Noted Time PHQ-9 Depression Total Score: 3 04/09/20 24 10:00 AM EDT documented as of this encounter Care Teams Career Services Officer Relationship Specialty Start Date End Date Kofi Bowers MD 112 [facility] 110 [place] [address] PCP - General Internal Medicine 12/22/22 documented as of this encounter
--- OUTSIDE RECORDS SUMMARY | 2025-02-04 10:07 | XMS_ITS | Encounter Summary ---
Author Organization [facility] Address [address] [facility] [place] [address] Care Team Providers Care Auriculotherapist Name Role Phone Kofi Bowers MD Primary Care Provider [phone] Encounter Details Date Type Department Care Team ([facility] Contact Info) Description 08/28/2024 Abstract [facility] [address] [facility] [address] [place] [phone] Kofi Bowers MD 112 [facility] 110 [place] [address] Social History Tobacco Use Types Packs/Day Years [...] Office Visit [facility] [address] [facility] [address] [place] [address] Kofi Bowers MD 112 [facility] [address] [place] [address] documented as of this encounter Visit Diagnoses Not on filedocumented in this encounter Additional Health Concerns Assessment Noted Time PHQ-9 Depression Total Score: 3 04/09/20 24 10:00 AM EDT documented as of this encounter Care Teams Auriculotherapist Relationship Specialty Start Date End Date Kofi Bowers MD [address] [address] PCP - General Internal Medicine 12/22/22 documented as of this encounter
--- OUTSIDE RECORDS SUMMARY | 2025-02-04 10:07 | XMS_ITS | Encounter Summary ---
Author Organization [facility] Address [address] [facility] [place] [address] Care Team Providers Care Director Learning Name Role Phone Kofi Bowers MD Primary Care Provider [phone] Encounter Details Date Type Department Care Team ([facility] Contact Info) Description 04/11/2024 Abstract [facility] [address] [facility] [address] [place] [phone] Kofi Bowers MD 112 [facility] [address] [place], [place] [id number] Social History Tobacco Use Types Packs/Day Years [...] Visit [facility] [address] [facility] [address] [place] [phone] Kofi Bowers MD 112 [facility] [address] [place] [address] documented as of this encounter Visit Diagnoses Not on filedocumented in this encounter Additional Health Concerns Assessment Noted Time PHQ-9 Depression Total Score: 3 04/09/20 24 10:00 AM EDT documented as of this encounter Care Teams Director Learning Relationship Specialty Start Date End Date Kofi Bowers MD [address] [address] PCP - General Internal Medicine 12/22/22 documented as of this encounter
--- OUTSIDE RECORDS SUMMARY | 2025-02-04 10:07 | XMS_ITS | Encounter Summary ---
Author Organization [facility] Address [address] [place] [address] Care Team Providers Care Sealer Dry Cell Name Role Phone Kofi Bowers MD Primary Care Provider [phone] Encounter Details Date Type Department Care Team [...] Visit [facility] [address] [facility] 110 [place] [address] Kofi Bowers MD [address] [facility] 110 [place] [address] documented as of this encounter Procedures Procedure Name Priority Date/Time Associated Diagnosis Comments CT THORACIC SPINE WO IV CONTRAST 05/25/2024 9:00 AM EDT documented in this encounter Results * CT thoracic spine wo IV contrast (05/25/2024 9:00 AM EDT) Anatomical Region Laterality Modality Spine, T-spine Computed Tomogra phy 05/25/2024 9:00 AM EDT Narrative 05/25/2024 9:03 [place] [address] CT Scan Report Signed Patient: KONRAD MOBLEY MR#: [id number] : 1945 Acct:[id number] Age/Sex: 79 / F ADM Date: 05/24/24 Loc: CT Attending Dr: Esperanza Maya M.D. Ordering Physician: Esperanza Maya M.D. Date of Service: 05/24/24 Procedure(s): CT thoracic spine wo con Accession Number(s): [id number] cc: KOFI BOWERS [place] [address] Patient Name: KONRAD MOBLEY MRN: [id number] date: 1945 Sex: F Assigned Patient Location: CT Current Patient Location: Accession/Order Number: [id number] Exam Date: 05/24/2024 13:23 Report Date: 05/25/2024 [...] M.D. Signed By: 05/25/24902 DD/ 9 TD/TT: Service Engineer: Procedure Note Radiology, Radiologist, - 05/28/2024 [place] [address] CT Scan Report Signed Patient: KONRAD MOBLEY GMR#: [id number] : 5Acct:[id number] Age/Sex: 79 / FADM Date: 05/24/24 Loc: CT Attending Dr: Esperanza Maya M.D. Ordering Physician: Esperanza Maya M.D. Date of Service: 05/24/24 Procedure(s): CT thoracic spine wo con Accession Number(s): [id number] cc: KOFI BOWERS [place] [address] Patient Name: KONRAD MOBLEY MRN: [facility]:[id number] date: 1945 Sex: F Assigned Patient Location: CT Current Patient Location: Accession/Order Number: [id number] Exam Date: 05/24/2024 13:23 Report Date: 05/25/2024 [...] Jesus M.D. Signed By:05/25/24902 DD/ 9 TD/TT: Service Engineer: Generic External Data Provider IMG CT PROCEDURES Final Result documented in this encounter Visit Diagnoses Not on filedocumented in this encounter Additional Health Concerns Assessment Noted Time PHQ-9 Depression Total Score: 3 04/09/20 24 10:00 AM EDT documented as of this encounter Care Teams Sealer Dry Cell Relationship Specialty Start Date End Date Kofi Bowers MD [address] [address] PCP - General Internal Medicine 12/22/22 documented as of this encounter
--- OUTSIDE RECORDS SUMMARY | 2025-02-04 10:07 | XMS_ITS | Encounter Summary ---
Author Organization [facility] Address [address] [facility] [place] [address] Care Team Providers Care Wrapping Machine Operator Name Role Phone Kofi Bowers MD Primary Care Provider [phone] Encounter Details Date Type Department Care Team ([facility] Contact Info) Description 06/29/2024 Abstract [facility] [address] [facility] 110 [place] [phone] Kofi Bowers MD 112 [facility] 110 [place], [place] [id number] Social History Tobacco Use Types Packs/Day Years [...] Office Visit [facility] [address] [facility] 110 [place] [phone] Kofi Bowers MD 112 [facility] 110 [place] [address] documented as of this encounter Visit Diagnoses Not on filedocumented in this encounter Additional Health Concerns Assessment Noted Time PHQ-9 Depression Total Score: 3 04/09/20 24 10:00 AM EDT documented as of this encounter Care Teams Wrapping Machine Operator Relationship Specialty Start Date End Date Kofi Bowers MD [address] [address] PCP - General Internal Medicine 12/22/22 documented as of this encounter
--- OUTSIDE RECORDS SUMMARY | 2025-02-04 10:07 | XMS_ITS | Encounter Summary ---
Author Organization [facility] Address [address] [place] [address] Care Team Providers Care Recorder Of Deeds Name Role Phone Kofi Bowers MD Primary Care Provider [phone] Encounter Details Date Type Department Care Team [...] [facility] [address] [facility] 110 [place] [address] Kofi Bowers MD 112 [facility] 110 [place] [address] documented as of this encounter Procedures Procedure Name Priority Date/Time Associated Diagnosis Comments XR THORACIC SPINE 2 VIEWS 05/11/2024 10:18 AM EDT documented in this encounter Results * XR thoracic spine 2 views (05/11/2024 10:18 AM EDT) Anatomical Region Laterality Modality Spine, T-spine Radiographic Kandis ging 05/11/2024 10:1 8 AM EDT Narrative 05/11/2024 10:21 [place] [address] XRay Report Signed Patient: KONRAD MOBLEY MR#: [id number] : 1945 Acct:[id number] Age/Sex: 79 / F ADM Date: 05/10/24 Loc: RAD Attending Dr: Zoila Rouse NP Ordering Physician: Zoila Rouse NP Date of Service: 05/10/24 Procedure(s): XR thoracic spine 2V Accession Number(s): [id number] cc: KOFI BOWERS ; Zoila Rouse NP [place] [address] Patient Name: KONRAD MOBLEY MRN: [id number] date: 1945 Sex: F Assigned Patient Location: [facility] Current Patient Location: [facility] Accession/Order Number: [id number] Exam Date: 05/10/2024 13:28 Report Date: 05/11/2024 [...] Signed By: 05/11/24 1021 DD/ 1018 TD/TT: Toe Trimmer: Procedure Note Radiology, Radiologist, - 05/11/2024 [place] [address] XRay Report Signed Patient: KONRAD MOBLEY R#: [id number] : 5Acct:[id number] Age/Sex: 79 / FADM Date: 05/10/24 Loc: RAD Attending Dr: Zoila Rouse DRIER FEEDER Ordering Physician: Zoila Rouse NP Date of Service: 05/10/24 Procedure(s): XR thoracic spine 2V Accession Number(s): [id number] cc: KOFI BOWERS ; Zoila Rouse NP [place] [address] Patient Name: KONRAD MOBLEY MRN: [id number] date: 1945 Sex: F Assigned Patient Location: [facility] Current Patient Location: [facility] Accession/Order Number: [id number] Exam Date: 05/10/2024 13:28 Report Date: 05/11/2024 [...] M.D. Signed By:05/11/24 1021 DD/ 1018 TD/TT: Toe Trimmer: us Generic External Data Provider IMG XR PROCEDURES Final Result documented in this encounter Visit Diagnoses Not on filedocumented in this encounter Additional Health Concerns Assessment Noted Time PHQ-9 Depression Total Score: 3 04/09/20 24 10:00 AM EDT documented as of this encounter Care Teams Recorder Of Deeds Relationship Specialty Start Date End Date Kofi Bowers MD [address] [address] PCP - General Internal Medicine 12/22/22 documented as of this encounter
--- OUTSIDE RECORDS SUMMARY | 2025-02-04 10:07 | XMS_ITS | Encounter Summary ---
Author Organization [facility] Address [address] [facility] [place] [address] Care Team Providers Care Dry House Worker Name Role Phone Kofi Bowers MD Primary Care Provider [phone] Encounter Details Date Type Department Care Team ([facility] Contact Info) Description 07/19/2024 Abstract [facility] [address] [facility] 110 [place] [phone] Kofi Bowers MD 112 [facility] 110 [place] [address] Social History Tobacco Use Types Packs/Day Years [...] Office Visit [facility] [address] [facility] 110 [place] [phone] Kofi Bowers MD 112 [facility] 110 [place] [address] documented as of this encounter Visit Diagnoses Not on filedocumented in this encounter Additional Health Concerns Assessment Noted Time PHQ-9 Depression Total Score: 3 04/09/20 24 10:00 AM EDT documented as of this encounter Care Teams Dry House Worker Relationship Specialty Start Date End Date Kofi Bowers MD [address] [address] PCP - General Internal Medicine 12/22/22 documented as of this encounter
--- OUTSIDE RECORDS SUMMARY | 2025-02-04 10:07 | XMS_ITS | Encounter Summary ---
Author Organization [facility] Address [address] [facility] [place] [address] Care Team Providers Care Game Advisor Name Role Phone Kofi Bowers MD Primary Care Provider [phone] Encounter Details Date Type Department Care Team ([facility] Contact Info) Description 12/17/2022 Abstract [facility] [address] [facility] 110 [place] [phone] Kofi Bowers MD 112 [facility] 110 [place] [address] Social History Tobacco Use Types Packs/Day Years [...] Upcoming Encounters Date Type Department Care Team ([facility] Contact Info) Description 04/17/2025 11:00 AM EDT Office Visit [facility] [address] [facility] 110 [place] [address] Kofi Bowers MD 112 [facility] 110 [place] [address] documented as of this encounter Visit Diagnoses Not on filedocumented in this encounter Care Teams Game Advisor Relationship Specialty Start Date End Date Kofi Bowers MD 112 [facility] 110 [place] [address] PCP - General Internal Medicine 12/22/22 documented as of this encounter
--- OUTSIDE RECORDS SUMMARY | 2025-02-04 10:07 | XMS_ITS | Encounter Summary ---
Author Organization [facility] Address [address] [facility] [place] [address] Care Team Providers Care Stummel Selector Name Role Phone Kofi Bowers MD Primary Care Provider [phone] Encounter Details Date Type Department Care Team ([facility] Contact Info) Description 05/03/2024 Abstract [facility] [address] [facility] [address] [place] [phone] Kofi Bowers MD 112 [facility] 110 [place] [address] Social History Tobacco Use Types Packs/Day Years [...] Office Visit [facility] [address] [facility] 110 [place] [phone] Kofi Bowers MD 112 [facility] [address] [place] [address] documented as of this encounter Visit Diagnoses Not on filedocumented in this encounter Additional Health Concerns Assessment Noted Time PHQ-9 Depression Total Score: 3 04/09/20 24 10:00 AM EDT documented as of this encounter Care Teams Stummel Selector Relationship Specialty Start Date End Date Kofi Bowers MD [address] [address] PCP - General Internal Medicine 12/22/22 documented as of this encounter
--- OUTSIDE RECORDS SUMMARY | 2025-02-04 10:07 | XMS_ITS | Encounter Summary ---
Author Organization [facility] Address [address] [facility] [place] [address] Care Team Providers Care Community Action Worker Name Role Phone Kofi Bowers MD Primary Care Provider [phone] Encounter Details Date Type Department Care Team ([facility] Contact Info) Description 03/21/2023 Abstract [facility] [address] [facility] 110 [place] [phone] Kofi Bowers MD 112 [facility] 110 [place], [place] [phone] Social History Tobacco Use Types Packs/Day Years [...] FM [address] [facility] 110 [place] [phone] Kofi Bowers MD 112 [facility] 110 [place] [address] documented as of this encounter Visit Diagnoses Not on filedocumented in this encounter Care Teams Community Action Worker Relationship Specialty Start Date End Date Kofi Bowers MD 112 [facility] 110 [place] [address] PCP - General Internal Medicine 12/22/22 documented as of this encounter
[2025-02-04 10:35] LABS: Glucometer 149 mg/dL (74-106)
[2025-02-04 10:37] VITALS: BP 147/70; PULSE 82; TEMP 36.5; O2SAT 97
[2025-02-04 10:59] VITALS: BP 204/86; BP 211/98; PULSE 97; PULSE 98; O2SAT 95; O2SAT 96
[2025-02-04] MEDS: BUPIVACAINE HCL 0.25% PF 25 MG/10 ML VIAL INJ (11:02)
[2025-02-04] MEDS: 0.9 % SODIUM CHLORIDE 10 ML SYRINGE - SALINE FLUSH INJ (11:02)
[2025-02-04] MEDS: LIDOCAINE HCL 2% 400 MG/20 ML MDV 3 ML INJ (11:03)
[2025-02-04] MEDS: METHYLPREDNISOLONE ACETATE 80 MG/ML VIAL INJ (11:03)
--- NOTE | 2025-02-04 11:06 | W.PM.PROCNOT ---
Date of procedure: 02/04/25 Pre-op diagnosis: Pain due to lumbar stenosis with neurogenic claudication Post-op diagnosis: same as pre-op Procedure: Procedure: Bilateral L5-S1 transforaminal epidural steroid injection Medications: Bupivacaine 0.25% 2cc, lidocaine 2% 1cc, depomedrol 80mg The patient was seen and examined in the preoperative holding area.? Informed consent was obtained and placed on the chart.? Patient was brought to the medical procedure unit and placed in the prone position where a timeout was completed verifying the correct patient, procedure site, position, and planned special equipment using sterile aseptic technique.? Under direct fluoroscopic visualization a 25-gauge Quincke tipped spinal needle was advanced at level left L5-S1 to the designated neural foramen where contrast dye was injected to show adequate spread.? There was no evidence of vascular or adverse uptake.? Epidural spread was appreciated.? The above-mentioned injectate was then placed in a 1.5 mL aliquot preceded by negative aspiration.? The needle was removed. The same procedure, at the same level, was completed on the opposite side. ? Patient was taken to the postprocedural recovery area and monitored for an appropriate length of time before found suitable for discharge in the accompaniment of a responsible adult. Anesthesia: Local Surgeon: Esperanza Maya Pathology: none sent Condition: stable Disposition: no change
== END 2025-02-04 11:10 | disposition home or self-care (01) ==
LOC: SURGOUT 10:04
PROVIDERS: PCP Internal Medicine; Visit Provider Anesthesiology
DX: M54.50 Low back pain, unspecified (principal); M48.062 Spinal stenosis, lumbar region with neurogenic claudication; E11.8 Type 2 diabetes mellitus with unspecified complications; Z79.84 Long term (current) use of oral hypoglycemic drugs
CPT/HCPCS: 36415; 64483; 82948; J0665; J1010

== ENCOUNTER 2025-02-13 10:56 | Outpatient (OUT) | payer MEDICARE, SELFPAY ==
--- NOTE | 2025-02-13 11:24 | PM.CN ---
Consult Note: HPI Data of Consult Patient: known to practice within the last 3 years Requesting Physician: Zoila Kenyon NP Primary Care Provider: BELEN ZALDIVAR Consult Narrative Reason for consult: f/u Narrative: Cece Mobley a pleasant 79 year old female with chronic low back pain post thoracic/lumbar fusion and DPN presents for evaluation. Has noticed increasing low back pain/spasms and radicular pain since last visit. no falls or injury. has been utilizing her SCS with mild relief, has not contacted her rep to discuss program settings. Pain 7-8/10 sharp. Pain increasing to 10/10 with standing, walking, twisting, pushing, pulling, housework, lifting, bending, activity. Mild improvement with sitting lying and heat. utilizing baclofen tramadol and tylenol with benefit. recent bilateral L5-S1 TFESI providing mild relief. cc:: CC: Zoila Kenyon NP Review of Systems ROS Status of ROS 10 or more systems reviewed and unremarkable except as noted in history and below [facility] Medical History Facial trauma (~2017) �S09.93XA - Unspecified injury of face, initial encounter (ICD-10) Chronic insomnia �F51.04 - Psychophysiologic insomnia (ICD-10) Low iron �E61.1 - Iron deficiency (ICD-10) Pneumonia �J18.9 - Pneumonia, unspecified organism (ICD-10) Restless leg �G25.81 - Restless legs syndrome (ICD-10) GERD (gastroesophageal reflux disease) �K21.9 - Gastro-esophageal reflux disease without esophagitis (ICD-10) Activity intolerance �R68.89 - Other general symptoms and signs (ICD-10) Extremity edema �R60.0 - Localized edema (ICD-10) Diabetes �E11.9 - Type 2 diabetes mellitus without complications (ICD-10) Hypothyroidism �E03.9 - Hypothyroidism, unspecified (ICD-10) Low back pain �M54.50 - Low back pain, unspecified (ICD-10) Osteoarthritis �M19.90 - Unspecified osteoarthritis, unspecified site (ICD-10) Diabetes 1.5, 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 - Other specified diabetes mellitus without complications (ICD-10) Sleep apnea �G47.30 - Sleep apnea, unspecified (ICD-10) High cholesterol �E78.00 - Pure hypercholesterolemia, unspecified (ICD-10) Hypertension �I10 - Essential (primary) hypertension (ICD-10) Surgical History History of facial surgery (~2017) �Z98.890 - Other specified postprocedural states (ICD-10) History of colonoscopy �Z98.890 - Other specified postprocedural states (ICD-10) History of radiofrequency ablation (RFA) of nerve of lumbar spine �Z98.890 - Other specified postprocedural states (ICD-10) S/P epidural steroid injection �Z92.241 - Personal history of systemic steroid therapy (ICD-10) Previous back surgery �Z98.890 - Other specified postprocedural states (ICD-10) History of cholecystectomy �Z90.49 - Acquired absence of other specified parts of digestive tract (ICD-10) Hx of tonsillectomy �Z90.89 - Acquired absence of other organs (ICD-10) History of appendectomy �Z90.49 - Acquired absence of other specified parts of digestive tract (ICD-10) Family History Other Cancer Family history of coronary artery disease Family history of diabetes mellitus Family history of heart disease Family history of hypertension Social History Within the past year, how often did you have a drink containing alcohol: never Score interpretation: A score less than 3 is consistent with normal alcohol consumption. Smoking status: Never smoker Non-prescribed substance use: denies use Highest level of school completed/degree received: Associate degree: occupational, technical, vocational program Meds Home Medications and Allergies Home Medications �Medication �Instructions �Recorded �Confirmed �Type acarbose 100 mg tablet 100 mg PO BID 10/19/23 02/04/25 History amlodipine 10 mg tablet 10 mg PO DAILY 10/19/23 02/04/25 History aspirin 81 mg capsule 81 mg PO DAILY 10/19/23 02/04/25 History carvedilol 25 mg tablet 25 mg PO BID 10/19/23 02/04/25 History dulaglutide 4.5 mg/0.5 mL 4.5 mg subcut .weekly 10/19/23 02/04/25 History [facility] furosemide 40 mg tablet 40 mg PO DAILY 10/19/23 02/04/25 History insulin detemir U-100 100 unit/mL 60 unit subcut DAILY 10/19/23 02/04/25 History (3 mL) subcutaneous pen (Levemir FlexPen) liothyronine 25 mcg tablet 12.5 mcg PO BID 10/19/23 02/04/25 History loratadine 10 mg tablet 10 mg PO DAILY PRN allergic 10/19/23 02/04/25 History symptoms losartan 100 1 tab PO DAILY 10/19/23 02/04/25 History mg-hydrochlorothiazide 25 mg tablet lovastatin 20 mg tablet 20 mg PO DAILY 10/19/23 02/04/25 History metformin 1,000 mg tablet 1,000 mg PO BID 10/19/23 02/04/25 History omeprazole 20 mg capsule,delayed 20 mg PO DAILY 10/19/23 02/04/25 History release potassium chloride 20 mEq 20 meq PO DAILY 10/19/23 02/04/25 History tablet,extended release quetiapine 50 mg tablet 50 mg PO DAILY 10/19/23 02/04/25 History tramadol 50 mg tablet 100 mg PO Q12H PRN pain 10/19/23 02/04/25 History acetaminophen 500 mg capsule 1,000 mg PO BID 07/18/24 02/04/25 History ascorbic acid (vitamin C) 500 mg 500 mg PO BID 07/18/24 02/04/25 History capsule calcium 600 mg (as 1 tab PO DAILY 07/18/24 02/04/25 History carbonate)-vitamin D3 5 mcg (200 unit) tablet (Calcium 600 + D(3)) cholecalciferol (vitamin D3) 125 5,000 unit PO DAILY 07/18/24 02/04/25 History mcg (5,000 unit) capsule vitamin B complex (B-Complex 1 tab PO DAILY 07/18/24 02/04/25 History tablet) vitamin E 268 mg (400 unit) capsule 268 mg PO BID 07/18/24 02/04/25 History hydrocodone 5 mg-acetaminophen 325 1 tab PO QID PRN pain #12 tabs 08/13/24 02/04/25 Rx mg tablet baclofen 10 mg tablet 10 mg PO BID PRN muscle spasm 10/29/24 02/04/25 History Allergies Allergy/AdvReac Type Severity Reaction Status Date / Time iodine Allergy Severe Anaphylaxis Verified 02/04/25 10:35 levofloxacin (From Levaquin) Allergy Rash Verified 02/04/25 10:35 Exam Constitutional Documenting provider has reviewed patient's vital signs: yes Common normals: no apparent distress, oriented x3, healthy appearing, alert and well nourished General appearance: cooperative HENMT Common normals: normocephalic, hearing grossly normal bilaterally and moist oral mucous membranes Head and scalp: normocephalic Eye Common normals: PERRL Pupil: PERRL Neck & C-Spine Common normals: full ROM General: normal visual inspection Chest Common normals: inspection of chest normal Respiratory Common normals: normal respiratory effort, no retractions and no use of accessory muscles Back & Pelvis Lumbar spine/lower back: pain with ROM, lumbar spinal tenderness and straight leg raise negative bilaterally Sacroiliac joints: SI joint(s) abnormal Other: sensation intact BLE strength 5/5 in BLE left sij positive cynthia(patricks), gaenslens, thigh thrust, compression test Neuro Common normals: oriented x3 Sensorium/orientation: alert Psych Common normals: mental status grossly normal, thought process normal, cooperative, affect normal, speech normal and activity/motor behavior normal Speech: normal speech Thought process: normal thought process Results Additional Findings Additional findings: If on a controlled substance or opioids, I have checked an [place] report on this patient and there are no aberrancies noted in the prescribing history.��If on a controlled substance or opioid a drug screen was completed and reviewed within the last year, and if there has not been a drug screen completed we ordered one today to monitor higher risk, state monitored pain medication use. As part of providing excellent, safe, comprehensive care, the following was completed at our patient's visit: 1. A medication reconciliation and review to ensure accurate knowledge of current/active medications, including asking our patients to inform us about any [id number] medications or herbal remedies/nutritional supplements/alternative remedies. 2. A review to specifically ensure our patients have had annual screening for screening for depression, screening for tobacco use, and screening for unhealthy alcohol use. For concerning screenings had a discussion with the patient, provided patient education, and recommended follow-up with primary care provider when appropriate. If patient noted with a risk of falling, they received education on strength, gait, and balance training to prevent future risk of falling. Portions of this note may have been carried over from the previous visit and updated as appropriate. Please note this office utilizes paper charting in addition to the electronic medical record. A list of current medications, vitals, and PMH is available there as the clinical staff outside of myself do not have access to [facility] charting during the clinic day operations. As part of providing quality comprehensive care the current medications, vitals, and PMH were reviewed in the paper chart. Assessment and Plan Assessment and Plan (1) Sacroiliitis: Assessment and Plan: The patient has had over 3 months of moderate to severe low back and left SIJ pain with functional impairment and inadequate response to conservative care including NSAIDS (unless there are contraindication such as concurrent blood thinners), multiple oral or topical pain medications, and home exercise program/physical therapy.� Patient has completed >6 weeks of guided home exercise program and/or formal physical therapy program without relief of their symptoms.� The Oswestry Disability Index was completed, and the patient scored a 47%.� The patient noted the following:�� moderate to severe pain impacting ADLs, sitting, standing, walking, sleep, social life, travel We discussed the risks and benefits of the procedure with the patient, and we are NOT planning on using sedation as outlined in the guidelines from Medicare unless there is a documented reason that sedation would be strongly recommended.�� �The procedure will be completed with fluoroscopic guidance.� (2) Lumbar radiculopathy: (3) Encounter for fitting and adjustment of spinal cord stimulator: (4) Failed back syndrome: (5) History of thoracic spinal fusion: (6) History of lumbar fusion: (7) Painful diabetic neuropathy: Plan proceed with left SIJ injection under fluoroscopy start zonegran 50mg HS, risks vs benefits reviewed continue HEP as tolerated f/u 2 weeks after injection
== END 2025-02-13 10:57 | disposition home or self-care (01) ==
LOC: PM 10:57
PROVIDERS: PCP Internal Medicine; Visit Provider Nurse Practitioner
DX: M46.1 Sacroiliitis, not elsewhere classified (principal); M54.16 Radiculopathy, lumbar region; M96.1 Postlaminectomy syndrome, not elsewhere classified; M43.26 Fusion of spine, lumbar region; M43.24 Fusion of spine, thoracic region; E11.40 Type 2 diabetes mellitus with diabetic neuropathy, unspecified; Z45.89 Encounter for adjustment and management of other implanted devices
CPT/HCPCS: G0463

== ENCOUNTER 2025-02-25 10:07 | Day surgery (SDC) | payer MEDICARE, SELFPAY ==
[2025-02-25 10:26] VITALS: BP 138/68; PULSE 76; TEMP 36.4; O2SAT 98
[2025-02-25 11:08] VITALS: BP 203/84; PULSE 80; O2SAT 97
[2025-02-25 11:09] VITALS: BP 199/83; PULSE 84; O2SAT 97
[2025-02-25] MEDS: IOHEXOL 240 MG/ML - 10 ML VIAL INJ (11:09)
[2025-02-25] MEDS: BUPIVACAINE HCL 0.25% PF 25 MG/10 ML VIAL 2 ML INJ (11:09)
[2025-02-25] MEDS: LIDOCAINE HCL 2% 400 MG/20 ML MDV INJ (11:09)
[2025-02-25] MEDS: METHYLPREDNISOLONE ACETATE 40 MG/ML VIAL INJ (11:10)
--- NOTE | 2025-02-25 11:10 | W.PM.PROCNOT ---
Date of procedure: 02/25/25 Pre-op diagnosis: Pain due to left sacroiliitis Post-op diagnosis: same as pre-op Procedure: Procedure: Left sacroiliac joint injection Medications: Bupivacaine 0.25% 4cc, depomedrol 40mg After informed consent was obtained, the patient was brought to the medical procedure unit and placed in the prone position, when a timeout was completed verifying correct patient, procedure, site, positioning, implant, and/or special equipment.? The skin overlying the area was prepped and draped in standard sterile fashion using alcohol.? A 25-gauge needle was inserted towards the left sacroiliac joint under direct fluoroscopic imaging.? Needle tip was advanced until the joint was encountered.? We instilled a total of 2 mL of solution.? Postoperatively needles were removed.? The patient tolerated the procedure well without complication.? The patient reported reduction in pain symptoms postoperatively. Anesthesia: Local Surgeon: Esperanza Maya Pathology: none sent Condition: stable Disposition: no change
== END 2025-02-25 11:13 | disposition home or self-care (01) ==
LOC: SURGOUT 10:08
PROVIDERS: PCP Internal Medicine; Visit Provider Anesthesiology
DX: M46.1 Sacroiliitis, not elsewhere classified (principal); M53.3 Sacrococcygeal disorders, not elsewhere classified; E11.8 Type 2 diabetes mellitus with unspecified complications; Z79.85 Long-term (current) use of injectable non-insulin antidiabetic drugs
CPT/HCPCS: 27096; 36415; 82948; J0665; J1010; Q9966

== ENCOUNTER 2025-03-14 10:47 | Outpatient (OUT) | payer MEDICARE, SELFPAY ==
--- OUTSIDE RECORDS SUMMARY | 2024-05-08 08:30 | XMS_ITS ---
Author Organization [facility] [place] Address [address] [place] [address] Care Team Providers Care Stone Trimmer Name Role Phone None, Unknown or Primary Care Provider Unavailab Eduardo Bolden Unavailable [phone] Reason For Referral Reason Referral to pain man agement Diagnosis 1 Type 2 diabetes job itus with diabetic polyneuropathy (E11.42) Diagnosis 2 Radiculopathy, lumba r region (M54.16) Referral Organization [facility] (PODIATRY) Referring Provider First Name Eduardo Referring Provider Last Name Warner Referring Provider Speciality Podiatry Referred Provider Pain Management, [facility] Referred Provider Specialty Pain Medicin e Referral Priority Routine REASON FOR VISIT prev pat bilateral leg pain Medications Medication SIG (Take, Route, Frequency, Duration) Notes Start Date End Date Status Carvedilol 25 MG 1 tablet with food Orally Twice a day Active Losartan Potassium-HCTZ 100-25 MG 1 tablet Orally Once a day Active Lunesta 3 MG 1 tablet immediately before bedtime Orally Once a day Active Aspirin 81 MG 1 tablet Orally Once a day Active Pramipexole Dihydrochloride 0.5 MG 1 tablet Orally Once a day Active Omeprazole 20 MG 1 capsule 30 minutes before morning meal Orally Once a day Active Liothyronine Sodium 25 MCG 1 tablet on a n empty stomach Orally Once a day Active Acarbose 100 MG as directed Orally Active amLODIPine Besylate 10 MG 1 tablet Orall y Once a day Active metFORMIN HCl 1000 MG 1 tablet with a me al Orally Once a day Active traMADol HCl 50 MG 1 tablet as needed Orally Once a day Active QUEtiapine Fumarate 50 MG 1 tablet at be dtime Orally Once a day Active Furosemide 40 MG 1 tablet Orally Once a day Active Potassium Chloride 20 MEQ 1 packet with food Orally Once a day Active Lovastatin 20 MG 1 tablet with the evening meal Orally Once a day Active Calcium + D 500-1000-40 MG-UNT-MCG as directed Orally Active Trulicity 4.5 MG/0.5ML as directed Subcutaneous Active Levemir FlexTouch Ac tive Acetaminophen 500 MG 1 tablet as needed Orally every 6 hrs 05/08/2024 Active Loratadine Allergy Relief Active Vitamin E Active Vitamin C Active Vitamin B 12 500 MCG 1 tablet Orally Onc e a day Active Vitamin D3 Active Problems Problem Type SNOMED Code ICD Code Onset Dates Problem Status W/U Status Risk Notes Problem [id number] Type 2 diabetes mellitus with diabetic polyneuropathy (E11.42) Active confirmed Vital Signs Temperature 97.5 degrees Fahrenheit 05/08/20 Heart Rate 86 /min 05/08/2024 Oximetry 99 % 05/08/2024 Encounters Encounter Location Date Provider Diagnosis [facility] (PODIATRY) [address] [place] [address] [place] [address] 05/08/2024 Eduardo [facility] Type 2 diabetes mellitus with diabetic polyneuropathy E11.42 and Radiculopathy, lumbar region M54.16 Assessments Encounter Date Diagnosis (ICD Code) Assessment Notes Treatment Notes Treatment Clinical Notes Section Notes 05/08/2024 Type 2 diabetes mellitus with diabetic polyneuropathy (ICD-10 - E11.42) Patient presents for consultation regarding a worsening chronic problem related to numbness and tingling in bilateral legs with the left being slightly worse than the right. Although I am unable to reproduce the patient's pain today her pain is consistent with nerve entrapment/radic ulopathy. She did undergo releases of common peroneal nerves by Dr. Bush roughly 4 years ago and her pain is apparently now worse. She has had multiple back surgeries as well. She did relate that she has seen Dr. Garcia in the past but this was many years ago. She has attempted Lyrica and gabapentin but had issues with balance and she has a history of falls when on these medications. I recommended that she follow-up with pain management for consultation and further management of her lower extremity and back pain 05/08/2024 Radiculopathy, lumbar region (ICD-10 - M54.16) Plan Of Treatment Treatment Notes Assessment Notes Type 2 diabetes mellitus wit h diabetic polyneuropathy Patient presents for consultation regarding a worsening chronic problem related to numbness and tingling in bilateral legs with the left being slightly worse than the right. Although I am unable to reproduce the patient's pain today her pain is consistent with nerve entrapment/radiculopathy. She did undergo releases of common peroneal nerves by Dr. Bush roughly 4 years ago and her pain is apparently now worse. She has had multiple back surgeries as well. She did relate that she has seen Dr. Garcia in the past but this was many years ago. She has attempted Lyrica and gabapentin but had issues with balance and she has a history of falls when on these medications. I recommended that she follow-up with pain management for consultation and further management of her lower extremity and back pain Referrals Referral Date Details 05/08/2024 05/08/2024, Referral to pain management, [facility] Pain Management Progress Notes * Cece MOBLEY GDOB:1945 (79 yo F)Acc No.[id number]:05/08/2024 New Patient Patient: Fidel AREVALOCece Provider: Fidel Hylton DPM, MS :1945 A ge:79 Y S ex:Female Date:05/08/2024 [id number] Pcp:Unknown or None Check In:12:13 PM ESTCheck O ut:01:18 PM EST Subjective: * Chief Complaints: * P rev pat bilateral leg pain * HPI: G eneral: Patient enters office today or bilateral leg pain/burning radiating from knees to toes. She does have numbness in both her feet and toes. She c/o restless leg syndromes stating her legs never stop moving unless weight is applied to them. She does c/o that her legs are worse at nigth time. SHe started having these symptoms after she had peroneal nerve release in 10/09/2020. She states majority of her pain today is in her second toe on her left foor. She states that she had that toenail permanatley removed in 2017 has been having pain since. * Active Problem List E11.42 Type 2 diabetes job itus with diabetic polyneuropathy Modified On:05/08/2024W/U Status:confirmed * Medical History: * Surgical History: t onsils 1963appendix removal 1961gallbladder removal 1987back surgery 2003back surgery 2008 * Hospitalization/Major Diagno stic Procedure: N o Hospitalization History. * Family History: F ather: diagnosed with Unspecified essential hypertension. M other: diagnosed with Other malignant neoplasm of unspecified site. B rother(s): diagnosed with Diabetes mellitus without mention of complication, type II or unspecified type, not stated as uncontrolled. S ister(s): diagnosed with Diabetes mellitus without mention of complication, type II or unspecified type, not stated as uncontrolled. * Medications: T akingAcarbose 100 MG Tablet as directed Orally Acetaminophen 500 MG Tablet 1 tablet as needed Orally every 6 hrs amLODIPine Besylate 10 MG Tablet 1 tablet Orally Once a day Aspirin 81 MG Tablet Chewable 1 tablet Orally Once a day Calcium + D(Calcium-Vitamin D-Vitamin K) 500-1000-40 MG-UNT-MCG Tablet Chewable as directed Orally Carvedilol 25 MG Tablet 1 tablet with food Orally Twice a day Furosemide 40 MG Tablet 1 tablet Orally Once a day Levemir FlexTouch Liothyronine Sodium 25 MCG Tablet 1 tablet on an empty stomach Orally Once a day Loratadine Allergy Relief Losartan Potassium-HCTZ 100-25 MG Tablet 1 tablet Orally Once a day Lovastatin 20 MG Tablet 1 tablet with the evening meal Orally Once a day Lunesta(Eszopiclone) 3 MG Tablet 1 tablet immediately before bedtime Orally Once a day metFORMIN HCl 1000 MG Tablet 1 tablet with a meal Orally Once a day Omeprazole 20 MG Capsule Delayed Release 1 capsule 30 minutes before morning meal Orally Once a day Potassium Chloride 20 MEQ Packet 1 packet with food Orally Once a day Pramipexole Dihydrochloride 0.5 MG Tablet 1 tablet Orally Once a day QUEtiapine Fumarate 50 MG Tablet 1 tablet at bedtime Orally Once a day traMADol HCl 50 MG Tablet 1 tablet as needed Orally Once a day Trulicity(Dulaglutide) 4.5 MG/0.5ML Solution Pen-injector as directed Subcutaneous Vitamin B 12 500 MCG Tablet 1 tablet Orally Once a day Vitamin C Vitamin D3 Vitamin E Taking Acarbose 100 MG Tablet as directed Orally Taking Acetaminophen 500 MG Tablet 1 tablet as needed Orally every 6 hrs Taking amLODIPine Besylate 10 MG Tablet 1 tablet Orally Once a day Taking Aspirin 81 MG Tablet Chewable 1 tablet Orally Once a day Taking Calcium + D(Calcium-Vitamin D-Vitamin K) 500-1000-40 MG-UNT-MCG Tablet Chewable as directed Orally Taking Carvedilol 25 MG Tablet 1 tablet with food Orally Twice a day Taking Furosemide 40 MG Tablet 1 tablet Orally Once a day Taking Levemir FlexTouch Taking Liothyronine Sodium 25 MCG Tablet 1 tablet on an empty stomach Orally Once a day Taking Loratadine Allergy Relief Taking Losartan Potassium- HCTZ 100-25 MG Tablet 1 tablet Orally Once a day Taking Lovastatin 20 MG Tablet 1 tablet with the evening meal Orally Once a day Taking Lunesta(Eszopiclone) 3 MG Tablet 1 tablet immediately before bedtime Orally Once a day Taking metFORMIN HCl 1000 MG Tablet 1 tablet with a meal Orally Once a day Taking Omeprazole 20 MG Capsule Delayed Release 1 capsule 30 minutes before morning meal Orally Once a day Taking Potassium Chloride 20 MEQ Packet 1 packet with food Orally Once a day Taking Pramipexole Dihydrochloride 0.5 MG Tablet 1 tablet Orally Once a day Taking QUEtiapine Fumarate 50 MG Tablet 1 tablet at bedtime Orally Once a day Taking traMADol HCl 50 MG Tablet 1 tablet as needed Orally Once a day Taking Trulicity(Dulaglutide) 4.5 MG/0.5ML Solution Pen-injector as directed Subcutaneous Taking Vitamin B 12 500 MCG Tablet 1 tablet Orally Once a day Taking Vitamin C Taking Vitamin D3 Taking Vitamin E * Allergies: n o[Allergies Verified] Objective: * Vitals: T emp:97.5F, HR:86/min, Oxygen sat %:99%. * Examination: P odiatry Examination: SKIN: s kin intact, n o sign of infection. MUSCULOSKELETAL: N o pain to palpation, N o gross deformity, S trength equal & symmetric. I am unable to reproduce her pain. NEUROLOGICAL: l ight touch sensation intact, n egative tinel's sign. VASCULAR: P edal pulses palpable, C apillary refill is brisk to toe, digital hair is absent and there are varicose veins noted bilateral lower legs and feet with +1 pitting edema equal and symmetric. No calf pain on squeeze. Assessment: * Assessment: 1. T ype 2 diabetes mellitus with diabetic polyneuropathy - E11.42 (Primary) 2 . R adiculopathy, lumbar region - M54.16 Plan: * Treatment: 2. R adiculopathy, lumbar region Referral To:[facility] Pain Management Pain Medicine Reason:Referral to pain management * Procedure Codes: * * Sign off status: Completed Visit Status: C HK (Check Out) true * Provider: Fidel Hylton DPM, MS Date: 0 05/08/2024 Generated for Barbarai loida/Abdiaziz/eTransmitting on: 03/14/2025 10:50 AM EDT History and Physical Notes * HPI (History of Present Illness) Category Sub-Category Detail Notes Category Not es General Patient enters office today or bilateral leg pain/burning radiating from knees to toes. She does have numbness in both her feet and toes. She c/o restless leg syndromes stating her legs never stop moving unless weight is applied to them. She does c/o that her legs are worse at nigth time. SHe started having these symptoms after she had peroneal nerve release in 10/09/2020. She states majority of her pain today is in her second toe on her left foor. She states that she had that toenail permanatley removed in 2017 has been having pain since. Examination Category Sub-Category Detail Notes Category Not es Podiatry Examination SKIN: skin intact, no sign of infection MUSCULOSKELETAL: No pain to palpation , No gross deformity, Strength equal & symmetric. I am unable to reproduce her pain NEUROLOGICAL: light touch sensatio n intact, negative tinel's sign VASCULAR: Pedal pulses palpabl e, Capillary refill is brisk to toe, digital hair is absent and there are varicose veins noted bilateral lower legs and feet with +1 pitting edema equal and symmetric. No calf pain on squeeze Consultation Request Notes Referral Date Referring Provider Referred Provider Not es 05/08/2024 Eduardo Hylton Pain Management, [facility] Re ferral to pain management
--- OUTSIDE RECORDS SUMMARY | 2025-03-07 10:30 | XMS_ITS | Encounter Summary ---
Author Organization [facility] Address [address] [place] [address] Care Team Providers Care Product Manager Medical Device Name Role Phone Kofi Bowers MD Primary Care Provider [phone] Reason for Visit * Reason Comments Hypertension Nausea Encounter Details Date Type Department Care Team (Late st Contact Info) Description 03/07/2025 10:30 AM EDT [facility] [address] [facility] 110 [place] [phone] Kofi Bowers MD [address] [facility] 110 [place], [place] [phone] Type 2 diabetes mellitus with hyperglycemia, without long-term current use of insulin (HCC) Social History Tobacco Use Types Packs/Day Years Used Date Smoking Tobacco: Former Cigarettes Q uit: 08/15/1999 Smokeless Tobacco: Never Alcohol Use Standard Drinks/Week Comments Not Currently 0 (1 standard drink = 0.6 oz pure alcohol) Caffeine: 1-2 cups per day; none soda/pop PHQ-2 Answer Date Recorded Patient Health Questionnaire-2 Score 0 02/11/2025 Comments Unknown Sex and Gender Information Value Date Recorded Sex Assigned at Not on file Legal Sex Female 6:38 PM EDT Gender Identity Not on file Sexual Orientation Not on file documented as of this encounter Last Filed Vital Signs Vital Sign Reading Time Taken Comments Blood Pressure 138/88 03/07/2025 10:38 AM EDT Pulse 77 03/07/2025 10:38 AM EDT Temperature - - Respiratory Rate - - Oxygen Saturation 98% 03/07/2025 10:38 AM EDT Inhaled Oxygen Concentration - - Weight 81.6 kg (180 lb) 03/07/2025 10:38 AM EDT Height 152.4 cm (5') 03/07/2025 10:38 AM EDT Body Mass Index 35.15 03/07/2025 10:38 AM EDT documented in this encounter Plan of Treatment Upcoming Encounters Date Type Department Care Team (Late st Contact Info) Description 03/28/2025 10:15 AM EDT Office Visit [facility] [place] [facility] [address] [place] [address] [place] [phone] Kofi Bowers MD [address] [place] [address] [place] [address] 04/17/2025 11:00 AM EDT Office Visit [facility] [place] [facility] [address] [place] [address] [place] [phone] Kofi Bowers MD [address] [place] [address] [place] [address] documented as of this encounter Procedures Procedure Name Priority Date/Time Associated Diagnosis Comments POCT GLYCATED HEMOGLOBIN, TOTAL Routine 03/07/2025 11:20 AM EDT Type 2 diabetes mellitus with hyperglycemia, without long-term current use of insulin (HCC) documented in this encounter Results * (ABNORMAL) POCT Glycated hemoglobin, total (03/07/2025 11:20 AM EDT) Hemoglobin A1C 6.8 Blood 03/07/2025 11:2 0 AM EDT Kofi Bowers MD POINT OF CARE TEST ENTER/EDIT ORDERABLES Final Result documented in this encounter Visit Diagnoses Diagnosis Type 2 diabetes mellitus with hyperglycemia, without long-term current use of insulin (HCC) documented in this encounter Additional Health Concerns Assessment Noted Time PHQ-9 Depression Total Score: 3 04/09/20 10:00 AM EDT documented as of this encounter Care Teams Product Manager Medical Device Relationship Specialty Start Date End Date Kofi Bowers MD [address] [place] [address] [place] [address] PCP - General Internal Medicine 12/22/22 documented as of this encounter
--- OUTSIDE RECORDS SUMMARY | 2025-03-14 10:50 | XMS_ITS | Encounter Summary ---
Author Organization [facility] Address [address] [place] [address] Care Team Providers Care Athletic Field Custodian Name Role Phone Kofi Bowers MD Primary Care Provider [phone] Encounter Details Date Type Department Care Team (Late Contact Info) Description 06/29/2024 Abstract [facility] [place] [facility] [address] [facility] [address] [place] [phone] Kofi Bowers MD [address] [facility] [address] [place] [address] Social History Tobacco Use Types Packs/Day Years [...] 10:15 AM EDT Office Visit [facility] [place] [facility] [address] [place] [address] [place] [phone] Kofi Bowers MD [address] [place] [address] [place] [address] 04/17/2025 11:00 AM EDT Office Visit [facility] [place] [facility] [address] [place] [address] [place] [address] Kofi Bowers MD [address] [facility] 110 [place] [address] documented as of this encounter Visit Diagnoses Not on filedocumented in this encounter Additional Health Concerns Assessment Noted Time PHQ-9 Depression Total Score: 3 04/09/20 24 10:00 AM EDT documented as of this encounter Care Teams Athletic Field Custodian Relationship Specialty Start Date End Date Kofi Bowers MD [address] [place] [address] PCP - General Internal Medicine 12/22/22 documented as of this encounter
--- OUTSIDE RECORDS SUMMARY | 2025-03-14 10:50 | XMS_ITS | Clinical Summary ---
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
--- OUTSIDE RECORDS SUMMARY | 2025-03-14 10:50 | XMS_ITS | Encounter Summary ---
Author Organization [facility] Address [address] [facility] [place] [address] Care Team Providers Care Strain Technician Name Role Phone Kofi Bowers MD Primary Care Provider [phone] Encounter Details Date Type Department Care Team (Late Contact Info) Description 07/19/2024 Abstract [facility] [place] [facility] [address] [facility] 110 [place] [phone] Kofi Bowers MD [address] [facility] 110 [place] [address] Social History Tobacco Use Types Packs/Day Years [...] Department Care Team (Late Contact Info) Description 03/28/2025 10:15 AM EDT Office Visit [facility] [place] [facility] [address] [place] [address] [place] [phone] Kofi Bowers MD [address] [place] [address] [place] [address] 04/17/2025 11:00 AM EDT Office Visit [facility] [place] [facility] [address] [place] [address] [place] [address] Kofi Bowers MD 112 [facility] 110 [place] [address] documented as of this encounter Visit Diagnoses Not on filedocumented in this encounter Additional Health Concerns Assessment Noted Time PHQ-9 Depression Total Score: 3 04/09/20 24 10:00 AM EDT documented as of this encounter Care Teams Strain Technician Relationship Specialty Start Date End Date Kofi Bowers MD [address] [place] [address] PCP - General Internal Medicine 12/22/22 documented as of this encounter
--- OUTSIDE RECORDS SUMMARY | 2025-03-14 10:50 | XMS_ITS | Encounter Summary ---
Author Organization [facility] Address [address] [facility] [place] [address] Care Team Providers Care Art Objects Repairer Name Role Phone Kofi Bowers MD Primary Care Provider [phone] Encounter Details Date Type Department Care Team [...] [facility] [place] [facility] [address] [facility] [address] [place] [phone] Kofi Bowers MD [address] [facility] 110 [place] [address] 04/17/2025 11:00 AM EDT Office Visit [facility] [place] [facility] [address] [place] [address] [place] [phone] Kofi Bowers MD [address] [facility] 110 [place] [address] documented as of this encounter Procedures Procedure Name Priority Date/Time Associated Diagnosis Comments XR THORACIC SPINE 2 VIEWS 05/11/2024 10:18 AM EDT documented in this encounter Results * XR thoracic spine 2 views (05/11/2024 10:18 AM EDT) Anatomical Region Laterality Modality Spine, T-spine Radiographic Kandis ging 05/11/2024 10:1 8 AM EDT Narrative 05/11/2024 10:21 [place] [address] XRay Report Signed Patient: KONRAD MOBLEY MR#: [id number] : 1945 Acct:[id number] Age/Sex: 79 / F ADM Date: 05/10/24 Loc: [facility] Attending Dr: Zoila Rouse LETTERPRESS PRINTING MACHINIST Ordering Physician: Zoila Rouse NP Date of Service: 05/10/24 Procedure(s): XR thoracic spine 2V Accession Number(s): [id number] cc: KOFI BOWERS ; Zoila Rouse NP [address] [address] Patient Name: KONRAD MOBLEY MRN: [id number] date: 1945 Sex: F Assigned Patient Location: [facility] Current Patient Location: [facility] Accession/Order Number: [id number] Exam Date: 05/10/2024 13:28 Report Date: 05/11/2024 [...] the thoracic lumbar spine. Electronically authenticated by: JOHNNY VICTORIA Date: 05/11/2024 10:18 Dictated By: Johnny Victoria M.D. Signed By: 05/11/24 1021 DD/ 1018 TD/TT: Hide Dyer: Procedure Note Radiology, Radiologist, MD - 05/11/2024 [place] [address] XRay Report Signed Patient: KONRAD MOBLEY GMR#: [id number] : 5Acct:[id number] Age/Sex: 79 / FADM Date: 05/10/24 Loc: [facility] Attending Dr: Zoila Rouse [employer] PRINTING MACHINIST Ordering Physician: Zoila Rouse NP Date of Service: 05/10/24 Procedure(s): XR thoracic spine 2V Accession Number(s): [id number] cc: KOFI BOWERS ; Zoila Rouse NP The [place] [id number] Patient Name: KONRAD MOBLEY MRN: [id number] date: 1945 Sex: F Assigned Patient Location: [facility] Current Patient Location: [facility] Accession/Order Number: [id number] Exam Date: 05/10/2024 13:28 Report Date: 05/11/2024 [...] of thethoracic lumbar spine. Electronically authenticated by: JOHNNY VICTORIA Date: 05/11/2024 10:18 Dictated By: Johnny Victoria M.D. Signed By:05/11/24 1021 DD/ 1018 TD/TT: Hide Dyer: Generic External Data Provider IMG XR PROCEDURES Final Result documented in this encounter Visit Diagnoses Not on filedocumented in this encounter Additional Health Concerns Assessment Noted Time PHQ-9 Depression Total Score: 3 04/09/20 24 10:00 AM EDT documented as of this encounter Care Teams Art Objects Repairer Relationship Specialty Start Date End Date Kofi Bowers MD [address] [address] PCP - General Internal Medicine 12/22/22 documented as of this encounter
--- OUTSIDE RECORDS SUMMARY | 2025-03-14 10:50 | XMS_ITS | Encounter Summary ---
Author Organization [facility] Address [address] [facility] [place] [place] [address] Care Team Providers Care Booth Cashier Name Role Phone Kofi Bowers MD Primary Care Provider [phone] Encounter Details Date Type Department Care Team (Late Contact Info) Description 03/21/2023 Abstract [facility] [place] [facility] [address] [facility] 110 [place] [phone] Kofi Bowers MD [address] [facility] 110 [place] [address] Social History Tobacco Use Types Packs/Day Years [...] [facility] [address] [place] [address] [place] [phone] Kofi Bowers MD [address] [place] [address] [place] [address] 04/17/2025 11:00 AM EDT Office Visit [facility] [place] [facility] [address] [place] [address] [place] [address] Kofi Bowers MD 112 [facility] 110 [place] [address] documented as of this encounter Visit Diagnoses Not on filedocumented in this encounter Care Teams Booth Cashier Relationship Specialty Start Date End Date Kofi Bowers MD [address] [address] PCP - General Internal Medicine 12/22/22 documented as of this encounter
--- OUTSIDE RECORDS SUMMARY | 2025-03-14 10:50 | XMS_ITS | Encounter Summary ---
Author Organization [facility] Address [address] [facility] [place] [address] Care Team Providers Care Circulation Clerk Name Role Phone Kofi Bowers MD [...] [place] [facility] [address] [facility] 110 [place] [phone] Kofi Bowers MD [address] [facility] 110 [place] [address] 04/17/2025 11:00 AM EDT Office Visit [facility] [place] [facility] [address] [place] [address] [place] [phone] Kofi Bowers MD [address] [facility] 110 [place] [address] documented as of this encounter Procedures Procedure Name Priority Date/Time Associated Diagnosis Comments CT LUMBAR SPINE WO IV CONTRAST 05/25/2024 9:00 AM EDT documented in this encounter Results * CT lumbar spine wo IV contrast (05/25/2024 9:00 AM EDT) Anatomical Region Laterality Modality Spine, L-spine Computed Tomogra phy 05/25/2024 9:00 AM EDT Narrative 05/25/2024 9:03 [place] [address] CT Scan Report Signed Patient: KONRAD MOBLEY MR#: [id number] : 1945 Acct:[id number] Age/Sex: 79 / F ADM Date: 05/24/24 Loc: CT Attending Dr: Esperanza Maya M.D. Ordering Physician: Esperanza Maya M.D. Date of Service: 05/24/24 Procedure(s): CT lumbar spine wo con Accession Number(s): [id number] cc: KOFI BOWERS [place] [id number] Patient Name: KONRAD MOBLEY MRN: [id number] date: 1945 Sex: F Assigned Patient Location: CT Current Patient Location: Accession/Order Number: [id number] Exam Date: 05/24/2024 13:23 Report Date: 05/25/2024 [...] M.D. Signed By: 05/25/24902 DD/ 9 TD/TT: Leather Cartridge Belt Maker: Procedure Note Radiology, Radiologist, MD - 05/25/2024 [place] [address] CT Scan Report Signed Patient: KONRAD MOBLEY GMR#: [id number] : 5Acct:[id number] Age/Sex: 79 / FADM Date: 05/24/24 Loc: CT Attending Dr: Esperanza Maya M.D. Ordering Physician: Esperanza Maya M.D. Date of Service: 05/24/24 Procedure(s): CT lumbar spine wo con Accession Number(s): [id number] cc: KOFI BOWERS [place] [id number] Patient Name: KONRAD MOBLEY MRN: [id number] date: 1945 Sex: F Assigned Patient Location: CT Current Patient Location: Accession/Order Number: [id number] Exam Date: 05/24/2024 13:23 Report Date: 05/25/2024 [...] Jesus M.D. Signed By:05/25/24902 DD/ 9 TD/TT: Leather Cartridge Belt Maker: Generic External Data Provider IMG CT PROCEDURES Final Result documented in this encounter Visit Diagnoses Not on filedocumented in this encounter Additional Health Concerns Assessment Noted Time PHQ-9 Depression Total Score: 3 04/09/20 24 10:00 AM EDT documented as of this encounter Care Teams Circulation Clerk Relationship Specialty Start Date End Date Kofi Bowers MD [address] [address] PCP - General Internal Medicine 12/22/22 documented as of this encounter
--- OUTSIDE RECORDS SUMMARY | 2025-03-14 10:50 | XMS_ITS | Clinical Summary ---
Author Organization [employer] Address [id number] [address] [place] [address] Care Team Providers Care Pharmacy Analyst Name Role Phone Kofi Bowers MD Primary Care Provider [phone] Allergies Active Allergy Reactions Criticality Noted Date [...] 07/31/2015 Medical Devices Not on file Insurance [facility] MEDICARE Care Teams Pharmacy Analyst Relationship Specialty Start Date End Date Kofi Bowers MD [address] [address] PCP - General Internal Medicine 10/27/22
--- OUTSIDE RECORDS SUMMARY | 2025-03-14 10:50 | XMS_ITS | Encounter Summary ---
Author Organization [facility] Address [address] [facility] [address] Care Team Providers Care Ship Scraper Name Role Phone Kofi Bowers MD Primary Care Provider [phone] Reason for Visit * Reason Onset Date Comments Med Refill 03/11/2025 Encounter Details Date Type Department Care Team (Late Contact Info) Description 03/11/2025 [facility] [address] [facility] 110 [place] [address] Kofi Bowers MD 112 [facility] 110 [place] [phone] Type 2 diabetes mellitus with hyperglycemia, without [...] Description 03/28/2025 10:15 AM EDT [facility] [address] [facility] 110 [place] [phone] Kofi Bowers MD 112 [facility] 110 [place], [place] [address] 04/17/2025 11:00 AM EDT Office Visit [facility] [place] 112 [facility] 110 [place] [address] Kofi Bowers MD 112 [facility] 110 [place] [address] documented as of this encounter Visit Diagnoses Diagnosis Type 2 diabetes mellitus with hyperglycemia, without long-term current use of insulin (HCC) documented in this encounter Additional Health Concerns Assessment Noted Time PHQ-9 Depression Total Score: 3 04/09/20 24 10:00 AM EDT documented as of this encounter Care Teams Ship Scraper Relationship Specialty Start Date End Date Kofi Bowers MD 112 [facility] 110 [place] [address] PCP - General Internal Medicine 12/22/22 documented as of this encounter
--- OUTSIDE RECORDS SUMMARY | 2025-03-14 10:50 | XMS_ITS | Encounter Summary ---
Author Organization [facility] Address [address] [facility] [place] [place] [address] Care Team Providers Care Heat Set Operator Name Role Phone Kofi Bowers MD Primary Care Provider [phone] Encounter Details Date Type Department Care Team (Late Contact Info) Description 08/28/2024 Abstract [facility] [place] [facility] [address] [facility] [address] [place] [phone] Kofi Bowers MD [address] [facility] [address] [place] [address] Social History Tobacco Use Types Packs/Day Years [...] [facility] [address] [place] [address] [place] [phone] Kofi Bowers MD [address] [facility] [address] [place] [address] 04/17/2025 11:00 AM EDT Office Visit [facility] [place] [facility] [address] [place] [address] [place] [address] Kofi Bwoers MD 112 [facility] 110 [place] [address] documented as of this encounter Visit Diagnoses Not on filedocumented in this encounter Additional Health Concerns Assessment Noted Time PHQ-9 Depression Total Score: 3 04/09/20 24 10:00 AM EDT documented as of this encounter Care Teams Heat Set Operator Relationship Specialty Start Date End Date Kofi Bowers MD [address] [place] [address] PCP - General Internal Medicine 12/22/22 documented as of this encounter
--- OUTSIDE RECORDS SUMMARY | 2025-03-14 10:50 | XMS_ITS | Encounter Summary ---
Author Organization [facility] Address [address] [facility] [place] [address] Care Team Providers Care Dressmaker Or Tailor Name Role Phone Kofi Bowers MD Primary Care Provider [phone] Reason for Visit * Reason Onset Date Comments Med Refill 03/12/2025 Encounter Details Date Type Department Care Team (Late Contact Info) Description 03/12/2025 Refill [facility] [place] [facility] [address] [facility] 110 [place] [address] Alexia Mckeon MA Type 2 diabetes mellitus with hyperglycemia, without [...] [facility]e [facility] [address] [place] [address] [place] [address] Kofi Bowers MD [address] [place] [address] [place] [phone] 04/17/2025 11:00 AM EDT Office Visit [facility] [place] [facility] [address] [place] [address] [place] [address] Kofi Bowers MD 112 [facility] 110 [place] [address] documented as of this encounter Visit Diagnoses Diagnosis Type 2 diabetes mellitus with hyperglycemia, without long-term current use of insulin (HCC) documented in this encounter Additional Health Concerns Assessment Noted Time PHQ-9 Depression Total Score: 3 04/09/20 24 10:00 AM EDT documented as of this encounter Care Teams Dressmaker Or Tailor Relationship Specialty Start Date End Date Kofi Bowers MD 112 [facility] 110 [place] [address] PCP - General Internal Medicine 12/22/22 documented as of this encounter
--- OUTSIDE RECORDS SUMMARY | 2025-03-14 10:50 | XMS_ITS | Clinical Summary ---
Author Organization [facility] Address [address] [place] [address] Care Team Providers Care News Internship Name Role Phone Kofi Bowers MD Primary Care Provider Allergies Active Allergy Reactions Criticality Noted Date [...] time. Active cholecalciferol (Vitamin D-3) 1.25 MG (69579 UT) tablet Vitamin D3 5000IU A ctive Calcium Citrate-Vitamin D (Vishnu-Citrate Plus Vitamin D) 250-2.5 MG-MCG tablet Take 1 tablet by mouth in the morning and 1 tablet in the evening. Active Allergy Relief 10 MG tabletIndications :Allergy, initial encounter TAKE 1 TABLET BY MOUTH EVERY MORNING 30 tablet 11 03/20/20 24 Active liothyronine (Cytomel) 25 MCG tabletIndications :Hypothyroidism, unspecified type 0.5 tablet on an empty stomach Orally two times daily. D.A.W. as Sigma or iRates Brand ONLY for 90 days 200 tablet 3 07/02/20 24 Active amLODIPine (Norvasc) 10 MG tabletIndications :Benign essential hypertension TAKE 1 TABLET BY MOUTH IN THE MORNING 100 tablet 3 07/23/20 24 Active lovastatin (Mevacor) 20 MG tabletIndications :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HHS-HCC) TAKE 1 TABLET BY MOUTH ONCE DAILY 100 tablet 3 08/16/19 25 Active QUEtiapine (SEROquel) 50 MG tabletIndications [...] AND 1 TABLET BEFORE BEDTIME 60 tablet 11 12/14/19 25 Active omeprazole (PriLOSEC) [address] capsuleIndication s:Gastroesophagea l reflux disease without esophagitis TAKE 1 CAPSULE BY MOUTH IN THE MORNING 30 capsule 11 12/14/19 25 Active traMADol (Ultram) 50 MG tabletIndications :Failed back syndrome Take 1 tablet (50 mg) by mouth every 6 (six) hours if needed for severe pain 120 tablet 2 01/05/20 25 2024 Active baclofen (Lioresal) 10 MG tablet TAKE 1/2 (ONE-HALF) TO 1 (ONE) TABLET BY MOUTH THREE TIMES DAILY NEEDED 12/26/19 25 Active losartan-hydroCHL OROthiazide (Hyzaar) 100-25 MG tabletIndications :Hypertension, unspecified type Take 1 tablet by mouth Daily 100 tablet 2 02/15/20 25 Active zonisamide (Zonegran) 50 MG capsule Take 50 mg by mouth at bedtime 02/14/20 25 Active Glucose Blood (Blood Glucose Test) stripIndications: Type 2 diabetes mellitus with hyperglycemia, without long-term current use of insulin ([facility]) 1 each by In Vitro route Daily 100 strip 3 03/11/20 25 Active Blood Glucose Monitoring Suppl (Blood Glucose Monitor System) w/Device kitIndications:Ty pe 2 diabetes mellitus with hyperglycemia, without long-term current use of insulin (HCC) 1 each Daily 1 kit 03/12/20 25 Active Lancets 30G miscIndications:T ype 2 diabetes mellitus with hyperglycemia, without long-term current use of insulin (HCC) 1 each Daily 100 each 3 03/12/20 Active Alcohol Swabs (Alcohol Prep) 70 % padsIndications:T ype 2 diabetes mellitus with hyperglycemia, without long-term current use of insulin (HCC) 1 Pad Daily 100 each 3 03/12/20 Active metFORMIN (Glucophage) 1000 MG tabletIndications :Diabetes mellitus type 2 with neurological manifestations (HCC) TAKE 1 TABLET BY MOUTH IN THE MORNING AND 1 TABLET IN THE EVENING. TAKE WITH MEALS 60 tablet 11 12/14/19 25 2024 Discontin ued(Other ) ondansetron (Zofran) 8 MG tabletIndications :Nausea Take 1 tablet (8 mg) by mouth every 8 (eight) hours if needed for nausea or vomiting for up to 7 days 20 tablet 02/09/20 25 2024 losartan-hydroCHL OROthiazide (Hyzaar) 100-25 MG tabletIndications :Hypertension, unspecified type Take 1 tablet by mouth Daily 100 tablet 2 02/13/20 25 2024 Discontin ued(Reord er) Active Problems Problem Noted Date Diagnosed Date [...] gastrointestinal tract 06/01/2018 Lipoprotein deficiency disorder 05/01/2018 [facility] current use of insulin 01/28/2016 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 Ex-smoker 10/22/2015 History of fall 10/02/2015 Insomnia 06/10/2015 Diabetic polyneuropathy asso ciated with type 2 diabetes mellitus 08/15/2014 Diabetes 01/24/2014 Polyneuropathy 01/24/2014 Resolved Problems Problem Noted Date Diagnosed Date Resolved Date Low HDL (under 40) 12/14/2022 3 Encounters Date Type Department Care Team Description 03/13/2025 [facility] [address] [facility] [address] [place] [address] Kofi Bowers MD 03/12/2025 Refill [facility] [place] [facility] [address] [place] [address] [place] [address] Alexia Mckeon MA Type 2 diabetes mellitus with hyperglycemia, without long-term current use of insulin ([facility]) 03/11/2025 Refill [facility] [place] [facility] [address] [place] [address] [place] [address] Kofi Bowers MD Type 2 diabetes mellitus with hyperglycemia, without long-term current use of insulin ([facility]) 03/07/2025 10:30 AM EDT [facility] [place] [facility] [address] [facility] [address] [place] [address] Kofi Bowers MD Type 2 diabetes mellitus with hyperglycemia, without long-term current use of insulin ([facility]) 03/07/2025 Travel 02/12/2025 Telephone [facility] [place] [address] [place] [address] [facility] [address] [place] [address] Kofi Bowers MD 02/11/2025 2:15 PM EDT Office [facility] [place] [facility] [address] [facility] [address] [place] [address] Kofi Bowers MD Nausea (Primary Dx); Type 2 diabetes mellitus with hyperglycemia, without long-term current use of insulin ([facility]) 02/11/2025 Bamboo flowsheet [facility] [place] [facility] [address] [facility] [address] [place] [address] Kofi Bowers MD 02/11/2025 Travel 02/08/2025 11:15 AM EDT Office [facility] [place] [facility] [address] [facility] [address] [place] [address] Kofi Bowers MD Nausea (Primary Dx) 02/08/2025 Bamboo flowsheet [facility] [place] [facility] [address] [facility] [address] [place] [address] Kofi Bowers MD 02/08/2025 Travel 01/24/2025 Clinisync Result Encounter NOM[facility] External Department Unsolicited Provider, Generic External Data 01/14/2025 1:00 PM EDT Office Visit [facility] [place] [facility] [address] [facility] [address] [place] [address] Skye Perla PA Lumbar paraspinal muscle spasm (Primary Dx); Type 2 diabetes mellitus with hyperglycemia, without long-term current use of insulin ([facility]) 01/14/2025 Bamboo flowsheet [facility] [address] [place] [address] [place] [address] Skye Perla PA 01/14/2025 Travel 01/04/2025 Refill [facility] [address] [place] [address] [place] [address] Kofi Bowers MD Failed back syndrome 01/03/2025 Refill [facility] [place] [facility] [address] [place] [address] [place] [address] Kofi Bowers MD Failed back syndrome 12/12/2024 [facility] [address] [place] [address] [place] [address] Kofi Bowers MD Benign essential hypertension ; Diabetes mellitus type 2 with neurological manifestations ([facility]); Gastroesophageal reflux disease without esophagitis from Last 3 Months Immunizations Immunization Administration [...] 08/15/1999 Smokeless Tobacco: Never Tobacco Cessation:Counseling Given: Yes Alcohol Use Standard Drinks/Week Comments Not Currently [...] Pulse 77 03/07/2025 10:38 AM EDT Temperature 36.4 C (97.5 F) 02/08/2025 11:07 AM EDT Respiratory Rate 17 02/11/2025 2:10 PM EDT Oxygen Saturation 98% 03/07/2025 10:38 AM EDT Inhaled Oxygen Concentration - - Weight 81.6 kg (180 lb) 03/07/2025 10:38 AM EDT Height 152.4 cm (5') 03/07/2025 10:38 AM EDT Body Mass Index 35.15 03/07/2025 10:38 AM EDT Plan of Treatment Upcoming Encounters Date Type Department Care Team (Late st Contact Info) Description 03/28/2025 10:15 AM EDT Office Visit [facility] [place] [facility] [address] [facility] [address] [place] [address] Kofi Bowers MD [address] [facility] [address] [place] [address] 04/17/2025 11:00 AM EDT Office Visit [facility] [place] [address] [facility] [address] [place] [phone] Kofi Bowers MD [address] [place] [facility] [address] [place] [address] Health Maintenance Due Date Last Done Comments Pneumococcal Vaccine: 65+ Ye ars (2 of 2 - PCV) 05/15/2014 05/15/2013 Diabetes: Retinopathy Screening 04/28/2021 04/28/2020, 04/25/2019, 04/19/2018 Diabetes: Urine Protein Screening 04/09/2025 04/09/2024, 01/18/2024, 01/03/2023, Additional history exists Medicare Annual Wellness (AWV) 04/09/2025 0 04/09/2024, 01/03/2023, 01/03/2023 Influenza Vaccine (#1) 2025 4, 06/06/2023, 05/20/2021, Additional history exists Diabetes: Hemoglobin A1C 06/07/2025 025, 01/14/2025, 08/28/2024, Additional history exists Procedures Procedure Name Priority Date/Time Associated Diagnosis Comments POCT GLYCATED HEMOGLOBIN, TOTAL Routine 03/07/2025 11:20 AM EDT Type 2 diabetes mellitus with hyperglycemia, without long-term current use of insulin (HCC) XR THORACIC SPINE 2 VIEWS 01/24/2025 12:21 [...] Glycated hemoglobin, total (03/07/2025 11:20 AM EDT) Only the most recent of2 resultswithin the time period is included. Hemoglobin A1C 6.8 Blood 03/07/2025 11:2 0 AM EDT Kofi Bowers MD POINT OF CARE TEST ENTER/EDIT ORDERABLES Final Result * XR thoracic spine 2 views (01/24/2025 12:21 PM EDT) Anatomical Region Laterality Modality Spine, T-spine Radiographic Kandis ging 01/24/2025 12:2 1 PM EDT Narrative 01/24/2025 12:23 [place] [address] XRay Report Signed Patient: KONRAD MOBLEY MR#: [id number] : 1945 Acct:[id number] Age/Sex: 79 / F ADM Date: 01/24/25 Loc: RAD Attending Dr: Rylee Rouse NP Ordering Physician: Rylee Rouse NP Date of Service: 01/24/25 Procedure(s): XR thoracic spine 2V Accession Number(s): [id number] cc: KOFI BOWERS ; Rylee Rouse NP [address] [address] Patient Name: KONRAD MOBLEY MRN: [id number] date: 1945 Sex: F Assigned Patient Location: [facility] Current Patient Location: [facility] Accession/Order Number: [id number] Exam Date: 01/24/2025 12:17 Report Date: 01/24/2025 12:21 At the request of: RYLEE ROUSE NP Procedure: XR thoracic spine 2V [...] Ramírez M.D. 01/24/2025 12:21 PM Dictation Location: [place] [address] Electronically authenticated by: [id number] Y Date: 01/24/2025 12:21 Dictated By: Skye Ramírez M.D. 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: Full Roll Inspector: Procedure Note Radiology, Radiologist, MD - 01/24/2025 [place] [address] XRay Report Signed Patient: KONRAD MOBLEY GMR#: [id number] : 5Acct:[id number] Age/Sex: 79 / FADM Date: 01/24/25 Loc: [facility] Attending Dr: Rylee Rouse NP Ordering Physician: Rylee Rouse NP Date of Service: 01/24/25 Procedure(s): XR thoracic spine 2V Accession Number(s): [id number] cc: KOFI BOWERS ; Rylee Rouse NP [facility] [place] [address] Patient Name: KONRAD MOBLEY MRN: [facility]:[id number] date: 1945 Sex: F Assigned Patient Location: [facility] Current Patient Location: [facility] Accession/Order Number: [id number] Exam Date: 01/24/2025 12:17 Report Date: 01/24/2025 12:21 At the request of: RYLEE ROUSE NP Procedure: XR thoracic spine 2V [...] Ramírez M.D. 01/24/2025 12:21 PM Dictation Location: [place] [address] Electronically authenticated by: [id number] Y Date: 2:21 Dictated By: Skye Ramírez M.D. Signed By:01/24/25 1223 DD/ 1221 TD/TT: Full Roll Inspector: us Generic External Data Provider IMG XR PROCEDURES Final Result * Microalbumin / creatinine, urine [...] Performing Organization Information Site ID: QPT Name: [employer] [facility] Address: [address] [place] [address], [address] [place] [id number] Director: Cezar Singh MD us Kofi Bowers MD LAB URINE ORDERABLES Final Res ult [facility] * Color Fundus Photography - OU - Both Eyes (04/28/2020 12:00 PM EDT) Anatomical Region Laterality Modality Head Fundus Photograp hy 04/28/2020 12:0 0 PM EDT Narrative 04/28/2020 12:00 PM EDT PERFORMED AT [facility] LOCATION:[id number] Procedure Note CONVERSION, GENERIC - 12/29/2022 PERFORMED AT [facility] LOCATION:[id number] Carlos Castellon MD OPHTH PHOTOGRAPHY Final Resu lt from Last 3 Months or Most Recently Relevant to Health Maintenance Insurance [employer] MEDICARE Care Teams News Internship Relationship Specialty Start Date End Date Kofi Bowers MD [address] [facility] [address] [place] [address] PCP - General Internal Medicine 12/22/22
--- OUTSIDE RECORDS SUMMARY | 2025-03-14 10:50 | XMS_ITS | Encounter Summary ---
Author Organization [facility] Address [address] [place] [address] Care Team Providers Care Front Office Administrator Name Role Phone Kofi Bowers MD Primary Care Provider [phone] Encounter Details Date Type Department Care Team (Late Contact Info) Description 12/17/2022 Abstract [facility] [place] [facility] [address] [facility] [address] [place] [phone] Kofi Bowers MD 112 [facility] [address] [place] [address] Social History Tobacco Use Types Packs/Day Years [...] [facility] [place] [facility] [address] [facility] [address] [place] [address] Kofi Bowers MD [address] [facility] [address] [place] [address] 04/17/2025 11:00 AM EDT Office Visit [facility] [place] [facility] [address] [facility] [address] [place] [phone] Kofi Bowers MD 112 [facility] [address] [place] [address] documented as of this encounter Visit Diagnoses Not on filedocumented in this encounter Care Teams Front Office Administrator Relationship Specialty Start Date End Date Kofi Bowers MD 112 [facility] [address] [place] [address] PCP - General Internal Medicine 12/22/22 documented as of this encounter
--- OUTSIDE RECORDS SUMMARY | 2025-03-14 10:50 | XMS_ITS | Encounter Summary ---
Author Organization [facility] Address [address] [facility] [place] [address] Care Team Providers Care Hospital Supervisor Name Role Phone Kofi Bowers MD Primary Care Provider [phone] Encounter Details Date Type Department Care Team (Late Contact Info) Description 04/11/2024 Abstract [facility] [place] [facility] [address] [facility] [address] [place] [phone] Kofi Bowers MD [address] [facility] [address] [place] [address] Social History Tobacco Use Types Packs/Day Years [...] [facility] [address] [place] [address] [place] [phone] Kofi Bowers MD [address] [place] [address] [place] [address] 04/17/2025 11:00 AM EDT Office Visit [facility] [place] [facility] [address] [place] [address] [place] [address] Kofi Bowers MD 112 [facility] [address] [place] [address] documented as of this encounter Visit Diagnoses Not on filedocumented in this encounter Additional Health Concerns Assessment Noted Time PHQ-9 Depression Total Score: 3 04/09/20 24 10:00 AM EDT documented as of this encounter Care Teams Hospital Supervisor Relationship Specialty Start Date End Date Kofi Bowers MD [address] [place] [address] PCP - General Internal Medicine 12/22/22 documented as of this encounter
--- OUTSIDE RECORDS SUMMARY | 2025-03-14 10:50 | XMS_ITS | Encounter Summary ---
Author Organization [facility] Address [address] [place] [address] Care Team Providers Care Bagging Salvager Name Role Phone Kofi Bowers MD Primary Care Provider Encounter Details Date Type Department Care Team (Latest Contact Info) Description 03/07/2025 Travel Social History Tobacco Use Types Packs/Day [...] AM EDT [facility] [place] [facility] [address] [facility] [address] [place] [phone] Kofi Bowers MD [address] [place] [address] [place] [address] 04/17/2025 11:00 AM EDT Office Visit [facility] [place] [facility] [address] [place] [address] [place] [address] Kofi Bowers MD [address] [place] [address] [place] [address] documented as of this encounter Visit Diagnoses Not on filedocumented in this encounter Additional Health Concerns Assessment Noted Time PHQ-9 Depression Total Score: 3 04/09/20 24 10:00 AM EDT documented as of this encounter Care Teams Bagging Salvager Relationship Specialty Start Date End Date Kofi Bowers MD [address] [address] PCP - General Internal Medicine 12/22/22 documented as of this encounter
--- OUTSIDE RECORDS SUMMARY | 2025-03-14 10:50 | XMS_ITS | Encounter Summary ---
Author Organization [facility] Address [address] [facility] [place] [address] Care Team Providers Care Part Time Receptionist Name Role Phone Kofi Bowers MD Primary Care Provider [phone] Encounter Details Date Type Department Care Team (Late Contact Info) Description 12/14/2022 Orders Only [facility] [place] [facility] [address] [facility] [address] [place] [phone] Lilly Granda LPN [address] [place] [address] Social History Tobacco Use Types Packs/Day Years [...] [address] [place] [address] [place] [address] Kofi Bowers MD [address] [place] [address] [place] [address] 04/17/2025 11:00 AM EDT Office Visit [facility] [place] [facility] [address] [place] [address] [place] [address] Kofi Bowers MD [address] [place] [address] [place] [address] documented as of this encounter Visit Diagnoses Not on filedocumented in this encounter Care Teams Part Time Receptionist Relationship Specialty Start Date End Date Kofi Bowers MD 112 [facility] 110 [place] [phone] PCP - General Internal Medicine 12/22/22 documented as of this encounter
--- OUTSIDE RECORDS SUMMARY | 2025-03-14 10:50 | XMS_ITS | Encounter Summary ---
Author Organization [facility] Address [address] [facility] [place] [address] Care Team Providers Care Loss Prevention/Safety District Manager Name Role Phone Kofi Bowers MD Primary Care Provider [phone] Encounter Details Date Type Department Care Team [...] [address] [facility] [address] [place] [address] Kofi Bowers MD [address] [facility] [address] [place] [address] 04/17/2025 11:00 AM EDT Office Visit [facility] [place] [facility] [address] [place] [address] [place] [address] Kofi Bowers MD [address] [facility] [address] [place] [address] documented as of this encounter Procedures Procedure Name Priority Date/Time Associated Diagnosis Comments ECG 12-LEAD 07/18/2024 10:38 AM EST documented in this encounter Results * ECG 12-LEAD (07/18/2024 10:38 AM EST) Anatomical Region Laterality Modality Other 07/18/2024 10:3 8 AM EST Narrative 07/18/2024 10:56 [place] [address] Electrocardiograph Report Signed Patient: KONRAD MOBLEY MR#: [id number] : 1945 Acct:[id number] Age/Sex: 79 / F ADM Date: 07/18/24 Loc: PST Attending Dr: Esperanza Maya M.D. Ordering Physician: Esperanza Maya M.D. Date of Service: 07/18/24 Procedure(s): ECG 12 lead Accession Number(s): [id number] cc: [facility] Test Date: 2024-07-18 Pat Name: KONRAD MOBLEY Department: Room: - Gender: Female Dust Handler: : 1945 Requested By: KOFI BOWERS Order Number: [id number] Reading MD: MEGA ACUÑA Measurements Intervals [place] Rate: 84 P: 13 LA: 158 QRS: 70 QRSD: 98 T: 66 QT: 379 QTc: 450 Interpretive Statements SINUS RHYTHM WITH SINUS ARRHYTHMIA Compared to ECG 06/26/2021 12:41:20 Ventricular premature complex(es) no longer present Electronically Signed On 07-18-2024 22:55:56 EST by MEGA ACUÑA Dictated By: Mega Acuña D.O. Signed By: 07/18/24 2256 DD/ 1038 TD/TT: Gasoline Tractor Operator: Procedure Note Radiology, Radiologist, MD - 07/18/2024 [place] [address] Electrocardiograph Report Signed Patient: KONRAD MOBLEY GMR#: [id number] : 5Acct:[id number] Age/Sex: 79 / FADM Date: 07/18/24 Loc: PST Attending Dr: Esperanza Maya M.D. Ordering Physician: Esperanza Maya M.D. Date of Service: 07/18/24 Procedure(s): ECG 12 lead Accession Number(s): [id number] cc: [facility] Test Date: 2024-07-18 Pat Name: KONRAD MOBLEY Department: Room: - Gender: Female Dust Handler: : 1945 Requested By: KOFI BOWERS Order Number: [id number] Reading MD: MEGA ACUÑA Measurements Intervals [place] Rate: 84 P: 13 LA: 158 QRS: 70 QRSD: 98 T: 66 QT: 379 QTc: 450 Interpretive Statements SINUS RHYTHM WITH SINUS ARRHYTHMIA Compared to ECG 06/26/2021 12:41:20 Ventricular premature complex(es) no longer present Electronically Signed On 07-18-2024 22:55:56 EST by MEGA ACUÑA Dictated By: Mega Acuña D.O. Signed By:07/18/24 2256 DD/ 1038 TD/TT: Gasoline Tractor Operator: Generic External Data Provider [facility] Final Result documented in this encounter Visit Diagnoses Not on filedocumented in this encounter Additional Health Concerns Assessment Noted Time PHQ-9 Depression Total Score: 3 04/09/20 24 10:00 AM EDT documented as of this encounter Care Teams Loss Prevention/Safety District Manager Relationship Specialty Start Date End Date Kofi Bowers MD [address] [address] PCP - General Internal Medicine 12/22/22 documented as of this encounter
--- OUTSIDE RECORDS SUMMARY | 2025-03-14 10:50 | XMS_ITS | Encounter Summary ---
Author Organization [facility] Address [address] [facility] [place] [address] Care Team Providers Care Entry Level Software Engineer Name Role Phone Kofi Bowers MD Primary Care Provider [phone] Encounter Details Date Type Department Care Team (Late Contact Info) Description 03/13/2025 Abstract [facility] [place] [facility] [address] [facility] [address] [place] [phone] Kofi Bowers MD [address] [facility] [address] [place] [address] Social History Tobacco Use Types Packs/Day Years [...] [facility] [address] [place] [address] [place] [phone] Kofi Bowers MD [address] [place] [address] [place] [address] 04/17/2025 11:00 AM EDT Office Visit [facility] [place] [facility] [address] [place] [address] [place] [address] Kofi Bowers MD 112 [facility] [address] [place] [address] documented as of this encounter Visit Diagnoses Not on filedocumented in this encounter Additional Health Concerns Assessment Noted Time PHQ-9 Depression Total Score: 3 04/09/20 24 10:00 AM EDT documented as of this encounter Care Teams Entry Level Software Engineer Relationship Specialty Start Date End Date Kofi Bowers MD [address] [place] [address] PCP - General Internal Medicine 12/22/22 documented as of this encounter
--- OUTSIDE RECORDS SUMMARY | 2025-03-14 10:50 | XMS_ITS | Encounter Summary ---
Author Organization [facility] Address [address] [facility] [place] [address] Care Team Providers Care Hazardous Substances Scientist Name Role Phone Kofi Bowers MD Primary Care Provider [phone] Encounter Details Date Type Department Care Team [...] [facility] [place] [facility] [address] [facility] [address] [place] [phone] Kofi Bowers MD [address] [facility] [address] [place] [address] 04/17/2025 11:00 AM EDT Office Visit [facility] [place] [facility] [address] [place] [address] [place] [phone] Kofi Bowers MD [address] [facility] [address] [place] [address] documented as of this encounter Procedures Procedure Name Priority Date/Time Associated Diagnosis Comments CT THORACIC SPINE WO IV CONTRAST 05/25/2024 9:00 AM EDT documented in this encounter Results * CT thoracic spine wo IV contrast (05/25/2024 9:00 AM EDT) Anatomical Region Laterality Modality Spine, T-spine Computed Tomogra phy 05/25/2024 9:00 AM EDT Narrative 05/25/2024 9:03 [place] [address] CT Scan Report Signed Patient: KONRAD MOBLEY MR#: [id number] : 1945 Acct:[id number] Age/Sex: 79 / F ADM Date: 05/24/24 Loc: CT Attending Dr: Esperanza Maya M.D. Ordering Physician: Esperanza Maya M.D. Date of Service: 05/24/24 Procedure(s): CT thoracic spine wo con Accession Number(s): [id number] cc: KOFI BOWERS [place] [id number] Patient Name: KONRAD MOBLEY MRN: [id number] date: 1945 Sex: F Assigned Patient Location: CT Current Patient Location: Accession/Order Number: [id number] Exam Date: 05/24/2024 13:23 Report Date: 05/25/2024 [...] M.D. Signed By: 05/25/24902 DD/ 9 TD/TT: Rubber Attacher: Procedure Note Radiology, Radiologist, MD - 05/28/2024 [place] [address] CT Scan Report Signed Patient: KONRAD MOBLEY GMR#: [id number] : 5Acct:[id number] Age/Sex: 79 / FADM Date: 05/24/24 Loc: CT Attending Dr: Esperanza Maya M.D. Ordering Physician: Esperanza Maya M.D. Date of Service: 05/24/24 Procedure(s): CT thoracic spine wo con Accession Number(s): [id number] cc: KOFI BOWERS [place] [id number] Patient Name: KONRAD MOBLEY MRN: [id number] date: 1945 Sex: F Assigned Patient Location: CT Current Patient Location: Accession/Order Number: [id number] Exam Date: 05/24/2024 13:23 Report Date: 05/25/2024 [...] Jesus M.D. Signed By:05/25/24902 DD/ 9 TD/TT: Rubber Attacher: Generic External Data Provider IMG CT PROCEDURES Final Result documented in this encounter Visit Diagnoses Not on filedocumented in this encounter Additional Health Concerns Assessment Noted Time PHQ-9 Depression Total Score: 3 04/09/20 24 10:00 AM EDT documented as of this encounter Care Teams Hazardous Substances Scientist Relationship Specialty Start Date End Date Kofi Bowers MD [address] [address] PCP - General Internal Medicine 12/22/22 documented as of this encounter
--- OUTSIDE RECORDS SUMMARY | 2025-03-14 10:50 | XMS_ITS | Encounter Summary ---
Author Organization [facility] Address [address] [facility] [place] [address] Care Team Providers Care Box Liner Name Role Phone Kofi Bowers MD Primary Care Provider [phone] Encounter Details Date Type Department Care Team [...] [facility] [place] [facility] [address] [facility] [address] [place] [phone] Kofi Bowers MD [address] [facility] [address] [place] [address] 04/17/2025 11:00 AM EDT Office Visit [facility] [place] [facility] [address] [place] [address] [place] [phone] Kofi Bowers MD [address] [facility] [address] [place] [address] documented as of this encounter Procedures Procedure Name Priority Date/Time Associated Diagnosis Comments XR LUMBAR SPINE MIN 4V 05/11/2024 10:18 AM EDT documented in this encounter Results * XR LUMBAR SPINE MIN 4V (05/11/2024 10:18 AM EDT) Anatomical Region Laterality Modality Other 05/11/2024 10:1 8 AM EDT Narrative 05/11/2024 10:21 [place] [address] XRay Report Signed Patient: KONRAD MOBLEY MR#: [id number] : 1945 Acct:[id number] Age/Sex: 79 / F ADM Date: 05/10/24 Loc: [facility] Attending Dr: Rylee Rouse [employer]PD[employer] MANAGER Ordering Physician: Rylee Rouse NP Date of Service: 05/10/24 Procedure(s): XR lumbar spine min 4V Accession Number(s): [id number] cc: KOFI BOWERS ; Rylee Rouse NP [address] [address] Patient Name: KONRAD MOBLEY MRN: [id number] date: 1945 Sex: F Assigned Patient Location: [facility] Current Patient Location: [facility] Accession/Order Number: [id number] Exam Date: 05/10/2024 13:28 Report Date: 05/11/2024 [...] Signed By: 05/11/24 1021 DD/ 1018 TD/TT: Embossograph Operator: Procedure Note Radiology, Radiologist, MD - 05/11/2024 [place] [address] XRay Report Signed Patient: KONRAD MOBLEY GMR#: [id number] : 5Acct:[id number] Age/Sex: 79 / FADM Date: 05/10/24 Loc: [facility] Attending Dr: Rylee Rouse [employer] MANAGER Ordering Physician: Rylee Rouse NP Date of Service: 05/10/24 Procedure(s): XR lumbar spine min 4V Accession Number(s): [id number] cc: KOFI BOWERS ; Rylee Rouse NP [place] [phone] Patient Name: KONRAD MOBLEY MRN: [id number] date: 1945 Sex: F Assigned Patient Location: [facility] Current Patient Location: [facility] Accession/Order Number: [id number] Exam Date: 05/10/2024 13:28 Report Date: 05/11/2024 [...] M.D. Signed By:05/11/24 1021 DD/ 1018 TD/TT: Embossograph Operator: Generic External Data Provider [facility] Final Result documented in this encounter Visit Diagnoses Not on filedocumented in this encounter Additional Health Concerns Assessment Noted Time PHQ-9 Depression Total Score: 3 04/09/20 24 10:00 AM EDT documented as of this encounter Care Teams Box Liner Relationship Specialty Start Date End Date Kofi Bowers MD [address] [facility] [address] [place] [address] PCP - General Internal Medicine 12/22/22 documented as of this encounter
--- OUTSIDE RECORDS SUMMARY | 2025-03-14 10:50 | XMS_ITS | Encounter Summary ---
Author Organization [facility] Address [address] [facility] [place] [address] Care Team Providers Care Industrial Engineering Name Role Phone Kofi Bowers MD Primary Care Provider [phone] Encounter Details Date Type Department Care Team (Late Contact Info) Description 05/03/2024 Abstract [facility] [place] [facility] [facility] [address] [facility] [address] [place] [phone] Kofi Bowers MD [address] [facility] [address] [place] [address] Social History Tobacco Use Types Packs/Day Years [...] [facility] [address] [place] [address] [place] [phone] Kofi Bowers MD [address] [place] [address] [place] [address] 04/17/2025 11:00 AM EDT Office Visit [facility] [place] [facility] [address] [place] [address] [place] [address] Kofi Bowers MD [address] [facility] [address] [place] [address] documented as of this encounter Visit Diagnoses Not on filedocumented in this encounter Additional Health Concerns Assessment Noted Time PHQ-9 Depression Total Score: 3 04/09/20 24 10:00 AM EDT documented as of this encounter Care Teams Industrial Engineering Relationship Specialty Start Date End Date Kofi Bowers MD [address] [place] [address] PCP - General Internal Medicine 12/22/22 documented as of this encounter
--- OUTSIDE RECORDS SUMMARY | 2025-03-14 10:50 | XMS_ITS | Clinical Summary ---
Author Organization [facility] Address [address] [place] [address] Care Team Providers Care Profile Saw Operator Name Role Phone Unavailable Primary Care [...] Vaccine (1 - 1-dose 75+ series) 2020 Advance Directive Discussion 08/15/2024 Influenza Vaccine (#1) 2025 Insurance MEDICARE [place] [employer] PPO OOS
--- OUTSIDE RECORDS SUMMARY | 2025-03-14 10:56 | XMS_ITS | CCD ---
Author Organization [facility] Care Team Providers Care Construction Stonemason Name Role Phone Olamide Ching Unavailable MD Abdullahi Acosta Attending Provider MONI Bowers Primary Care Provider [phone] Abdullahi Acosta Unavailable VERNA, ANGELA Consulting Unavailable VERNA, ANGELA Attending Unavailable ROBINSON, DR GLOVER Primary Care Unavailable VERNA, ANGELA Admitting Unavailable BOWERS, DR GLOVER Primary Care Unavailable GARCIA ., DR SERENITY Barahona Consulting Unavailable GARCIA ., DR SERENITY Barahona Attending Unavailable GARCIA ., DR SERENITY Barahona Admitting Unavailable MISC, DR MURDOCK Admitting Unavailable MISC, DR MURDOCK Consulting Unavailable BOWERS, DR GLOVER Primary Care Unavailable MISC, DR MURDOCK Attending Unavailable VERNA, ANGELA Attending Unavailable VERNA, ANGELA Consulting Unavailable BOWERS, DR GLOVER Primary Care Unavailable VERNA, ANGELA Admitting Unavailable BOWERS, DR GLOVER Primary Care Unavailable BOWERS, DR GLOVER Consulting Unavailable BOWERS, DR GLOVER Attending Unavailable BOWERS, DR GLOVER Admitting Unavailable ZIEBER, DR JOE Car Consulting Unavailable ALGHOTHANI, MOHAMAD Admitting Unavailable ALGHOTHANI, MOHAMAD Attending Unavailable ROBINSON, DR GLOVER Primary Care Unavailable [...] ESTES Admitting Unavailable ANGELA GILLESPIE Consulting Unavailable ROBINSON, DR GLOVER Primary Care Unavailable JOSE, DR ESTES Attending Unavailable BOWERS, DR GLOVER Consulting Unavailable GARCIA ., DR SERENITY Barahona Attending Unavailable GARCIA ., DR SERENITY Barahona Admitting Unavailable ROBINSON, DR GLOVER Primary Care Unavailable ZIEBGUANACO, DR JOE Car Consulting Unavailable GARCIA ., DR SERENITY Barahona Consulting Unavailable ROBINSON, DR GLOVER Primary Care Unavailable GARCIA ., DR SERENITY Barahona Attending Unavailable GARCIA ., DR SERENITY Barahona Admitting Unavailable LIZA, DR PAITTO Vega Consulting Unavailable GARCIA ., DR SERENITY Barahona Consulting Unavailable URI CARLSON Attending Unavailable VERNA, ANGELA Attending Unavailable VERNA, ANGELA Attending Unavailable OSCAR DEL TORO Attending Unavailable OSCAR DEL TORO Attending Unavailable MONI Bowers Primary Care Provider [phone] MD Abdullahi Acosta Attending Provider Abdullahi Acosta Attending Unavailable Abdullahi Acosta Admtony Unavailable Kofi Bowers Primary Care Unavailable Kofi Bowers MD Primary Care Provider [phone] KOFI BOWERS Primary Care Unavailable SHUBHAM GANN Attending Unavailable Francesco BUENO, Esperanza Shafer Attending Unavailable Francesco BUENO, Esperanza Shafer Attending Unavailable Giedraitis , Andjuju Shafer Attending Unavailable Giedraitis , Andrius Shafer Attending Unavailable Gilaurie BUENO, Andjuju Shafer Attending Unavailable Francesco BUENO, Esperanza Shafer Attending Unavailable SKYE GOODE Attending Unavailable KOFI BOWERS Attending Unavailable KOFI BOWERS Attending Unavailable KOFI BOWERS Attending Unavailable KOFI BOWERS Attending Unavailable SKYE GOODE Attending Unavailable Allergies Allergy Classification Reported Allergen(s) Allergy Type Date of Onset Reaction(s) Facility (3 sources) Gemfibrozil Drug Allergy muscle atrophy [facility] Other (20 sources) Iodine; Translations: [IODINE] Drug Allergy 11-24-19 19 anaphylaxis, Shortness of breath [facility] Repository (5 sources) levoFLOXacin; Translations: [Levaquin] Drug Allergy 11-17-19 16 tendonopathy [facility] Repository (20 sources) levoFLOXacin; Translations: [LEVOFLOXACIN] Drug Allergy 06-15-20 18 Other [facility] (1 source) Iodine and Iodide Containing Produc Allergy to substance 06-13-20 18 Unknown Reaction [facility] (2 sources) hydrALAZINE Drug Allergy 11-18-19 16 [facility] Repository (1 source) Iodine Drug Allergy 07-31-20 15 [facility] Repository (20 sources) pregabalin; Translations: [PREGABALIN] Drug Allergy 02-25-20 21 Dizziness [facility] Repository (1 source) SHELLFISH CONTAINING PRODUCTS; Translations: [SHELLFISH CONTAINING PRODUCTS] Propensity to adverse reactions to drug (disorder) 01-25-20 14 [facility] Repository (3 sources) Iodinated Contrast Media; Translations: [Iodinated Contrast Media] Allergy to substance 08-19-19 23 Unknown Reaction [facility] (2 sources) Gemfibrozil Drug Allergy 06-27-20 23 muscle atrophy [facility] Repository (1 source) Iodine Drug Allergy 06-27-20 23 [facility] Repository (20 sources) Shellfish Allergy to substance 01-25-20 14 Swelling [facility] Work Phone: Medications Current Medications Medication Drug Class(es) Dates Sig (Normalized) Sig (Original) acarbose 100 mg oral tablet (20 sources) alpha-Glucosidas e Inhibitor Start: 12-13-2024 take 1 tablet by mouth in the morning acarbose (Precose) 100 MG tablet Indications: Diabetes mellitus type 2 with neurological manifestations (HCC) TAKE 1 TABLET BY MOUTH IN THE MORNING AND 1 TABLET BEFORE BEDTIME 60 tablet 11 12/13/2024 Active Start: 01-18-2024 take 1 tablet by javi th in [...] 11:00pm acetaminophen 500 mg oral ta blet (20 sources) acetaminophen (T ylenol) 500 MG tablet [...] 10 MG tablet Indications: Benign essential hypertension TAKE 1 TABLET BY MOUTH IN THE MORNING 100 tablet 3 07/23/2024 Active Start: 06-13-2018 take 1 tablet by javi th in the morning amLODIPine (Norvasc) 10 MG tablet Indications: Benign essential hypertension (CMS/HCC) Take 1 tablet (10 mg) by mouth in the morning. 100 tablet 3 07/20/2023 Active ascorbic acid 100 mg/ml oral solution (20 sources) Vitamin C Ascorbic Acid (Vitamin C) 500 MG/5ML liquid 1 capsule 1 (one) time each day at the same time. Active aspirin 81 mg delayed release oral tablet (20 sources) Platelet Aggregation Inhibitor, Nonsteroidal Anti-inflammatory Drug Start: 2018 aspirin 81 MG EC tablet 1 (one) time each day at the same time. 2018 Active Baby Aspirin Act yair baclofen 10 mg oral tablet (9 sources) gamma-Aminobutyric Acid-ergic Agonist Start: 12-25-2024 take 0.5-1 tablets by mouth three times daily as needed baclofen (Lioresal) 10 MG tablet TAKE 1/2 (ONE-HALF) TO 1 (ONE) TABLET BY MOUTH THREE TIMES DAILY NEEDED 12/25/2024 Active biotin 5 mg sublingual tablet (3 sources) Start: 06-13-2018 take 1 capsule under the tongue once daily Biotin 5,000 mcg Tablet, Sublingual Active 1 CAP SUBLINGUAL Daily June 12, 2018 11:00pm calcium citrate 250 mg / cholecalciferol 100 unt oral tablet (20 sources) Vitamin D take 1 tablet by [...] Discontinued (Other) cholecalciferol 1.25 mg oral tablet (20 sources) Vitamin D cholecalciferol (Vitamin D-3) 1.25 MG (69426 UT) tablet Vitamin D3 5000IU Active cholecalciferol (Vitamin D-3) 1.25 MG (71668 UT) tablet Vitamin D3 5000IU 0 Active [...] oral tablet (20 sources) Loop Diuretic Start: 12-13-2024 take 1 tablet by mouth in the morning furosemide (Lasix) 40 MG tablet Indications: Benign essential hypertension TAKE 1 TABLET BY MOUTH IN THE MORNING 30 tablet 11 12/13/2024 Active Start: 06-13-2018 take 1 tablet by [...] / losartan potassium 100 mg oral tablet (20 sources) Thiazide Diuretic, Angiotensin 2 Receptor Theodora Start: 03-05-2024 take 1 tablet by mouth once daily losartan-hydroCHL OROthiazide (Hyzaar) 100-25 MG tablet Indications: Hypertension, unspecified type Take 1 tablet by mouth Daily 100 tablet 2 03/05/2024 Active Start: 04-26-2023 take 1 tablet by javi th once daily losartan-hydroCHLOROthiazide (Hyzaar) 10 0-25 MG tablet Indications: Hypertension, unspecified type (CMS/HCC) Take 1 tablet by mouth 1 (one) time each day at the same time. 100 tablet 2 04/26/2023 Active 3 ml insulin detemir 100 unt/ml pen injector (20 sources) Insulin Analog Start: 06-13-2018 Insulin Detemi [...] 25 MCG tablet Indications: Hypothyroidism, unspecified type 0.5 tablet on an empty stomach Orally two times daily. D.A.W. as Sigma or [employer] Brand ONLY for 90 days 200 [...] MG tablet Indications: 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HHS-HCC) TAKE 1 TABLET BY MOUTH ONCE DAILY 100 tablet 3 08/16/2024 Active Start: 06-13-2018 take 1 tablet by javi th once daily lovastatin (Mevacor) 20 MG tablet [...] mg oral tablet (20 sources) Biguanide Start: 12-13-2024 take 1 tablet by mouth in the morning metFORMIN (Glucophage) 1000 MG tablet Indications: Diabetes mellitus type 2 with neurological manifestations (HCC) TAKE 1 TABLET BY MOUTH IN THE MORNING AND 1 TABLET IN THE EVENING. TAKE WITH MEALS 60 tablet 12/13/2024 Active Start: 06-13-2018 take 1 tablet by [...] 2018 11:00pm take 2 tablets by mo uth every twenty-four hours Toprol XL 50 MG [...] capsule (20 sources) Proton Pump Inhibitor Start: 12-13-2024 take 1 capsule by mouth in the morning omeprazole (PriLOSEC) [address] capsule Indications: Gastroesophageal reflux disease without esophagitis TAKE 1 CAPSULE BY MOUTH IN THE MORNING 30 capsule 11 12/13/2024 Active Start: 06-13-2018 take 1 capsule by [facility] in the morning omeprazole (PriLOSEC) [address] capsule Indications: Gastroesophageal reflux disease without esophagitis TAKE 1 CAPSULE (20 MG) BY MOUTH IN THE MORNING. 30 capsule 10 01/18/2024 Active ondansetron 8 mg oral tablet (5 sources) Serotonin-3 Receptor Antagonist Start: 02-08-2025 End: 02-15-2025 take 1 tablet by mouth every eight hours as needed for nausea and vomiting and nausea and nausea ondansetron (Zofran) 8 MG tablet Indications: Nausea Take 1 tablet (8 mg) by mouth every 8 (eight) hours if needed for nausea or vomiting for up to 7 days 20 tablet 02/08/2025 02/15/2025 Active microencapsulated potassium chloride 20 meq extended release oral tablet (20 sources) Start: 06-13-2018 Potassium Chloride 20 mEq tablet,ER particles/crystal s Active 1 PACKET PO Daily June 12, 2018 11:00pm Start: 06-13-2018 Potassium Chlo ride Active 1 PACKET PO Daily June 12, 2018 11:00pm pramipexole dihydrochloride 0.75 mg oral tablet (3 sources) Nonergot Dopamine Agonist Start: 07-20-2023 take 1 tablet by mouth in the morning pramipexole (Mirapex) 0.75 MG tablet Indications: Chronic pain syndrome Take 1 tablet (0.75 mg) by mouth in the morning. 30 tablet 2 07/20/2023 Active End: 01-14-2025 pramipexole (Mirapex) 0.5 MG tablet 1 (one) time each day at the same time 01/14/2025 Discontinued (Therapy completed) pregabalin 100 mg oral capsule (6 sources) [...] oral tablet (20 sources) Opioid Agonist Start: 01-04-2025 End: 04-04-2025 take 1 tablet by mouth every six hours for pain traMADol (Ultram) 50 MG tablet Indications: Failed back syndrome Take 1 tablet (50 mg) by mouth every 6 (six) hours if needed for severe pain 120 tablet 2 01/04/2025 04/04/2025 Active Start: 03-05-2024 End: 01-02-2025 take 1 tablet by mouth every six hours for pain traMADol (Ultram) 50 MG tablet Indications: Failed back syndrome Take 1 tablet (50 mg) by mouth every 6 (six) hours if needed for severe pain 120 tablet 12/03/2024 01/02/2025 Active Start: 09-29-2023 take 1 tablet by [...] Active Trulicity 4.5 MG/0.5ML solut ion auto-injector (13 sources) Start: 08-23-2024 End: 02-08-2025 Trulicity 4.5 MG/0.5ML solut ion auto-injector Indications: Diabetes mellitus type 2 with neurological manifestations (HCC) INJECT CONTENTS OF 1 SYRINGE SUBCUTANEOUSLY ONCE WEEKLY 2 mL 08/23/2024 02/08/2025 Discontinued Start: 08-23-2024 Trulicity 4.5 MG/0.5ML solution auto-injector Indications: Diabetes mellitus type 2 with neurological manifestations (HCC) INJECT CONTENTS OF 1 SYRINGE SUBCUTANEOUSLY ONCE WEEKLY 2 mL 08/23/2024 Active Start: 08-23-2024 Trulicity 4.5 MG/0.5ML solution auto-injector [...] vitamin e d-alpha 400 unt oral capsule (20 sources) alpha tocopherol (Vitamin E) 400 units capsule 1 capsule. Active Vitamin E 400 UNIT (3 sources) take 1 capsule by [facility] once daily Vitamin E 400 UNIT [...] Rocephin 500 m g Jul, 1 grm eszopiclone 3 mg oral tablet (2 sources) End: 01-14-2025 eszopiclone (Lunesta) 3 MG tablet 1 (one) time each day at the same time 01/14/2025 Discontinued (Other) 2 ml orphenadrine citrate 30 mg/ml injection (20 sources) Muscle Relaxant Start: 01-14-2025 End: 01-14-2025 orphenadrine (Norflex) injection 60 mg Start: 01-14-2025 End: 01-14-2025 inject 60 mg by intramuscular injection once 60 mg, Intramuscular, Once, On 01/14/25 at 1330, For 1 dose Start: 10-27-2023 End: 01-14-2025 take 1 tablet by mouth twice daily as needed for muscle spasms orphenadrine (Norflex) 100 MG 12 hr tablet Indications: Acute strain of neck muscle, initial encounter Take 1 tablet (100 mg) by mouth 2 (two) times a day as needed for muscle spasms for up to 10 days Do not crush, chew, or split. 20 tablet 10/27/2023 01/14/2025 Discontinued (Therapy completed) Problems Active Problems Problem Classification Problem Date Documented Da te Episodic/Chronic Cardiac and circulatory congenital anomalies (20 sources) Congenital anomaly of renal blood vessel; 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] Onset: 11-25-2015 12-14-2022 Chronic Diabetes mellitus with complications (20 sources) Disorder of nervous system due to type 2 diabetes mellitus; Translations: [Type 2 diabetes mellitus with other diabetic neurological complication] Onset: 08-15-2014 12-14-2022 Chronic Diabetes mellitus without complication (20 sources) Type 2 diabetes mellitus without complications; Translations: [Diabetes mellitus] Onset: 01-24-2014 03-11-2023 Chronic Disorders of lipid metabolism (20 sources) Hyperlipidemia, unspecified; Translations: [Mixed hyperlipidemia] Onset: 01-07-2022 12-14-2022 Chronic Esophageal disorders (20 sources) Gastro-esophageal reflux disease without esophagitis; Translations: [Gastroesophageal reflux disease] Onset: 01-07-2022 12-14-2022 Chronic Essential hypertension (20 sources) Essential (primary) hypertension; Translations: [Benign essential hypertension] Onset: 01-07-2022 Chronic Malaise and fatigue (20 sources) Fatigue; Translations: [Chronic fatigue, unspecified] Onset: 12-14-2022 12-14-2022 Chronic Menopausal disorders (20 sources) Other primary ovarian failure; Translations: [Decreased estrogen level] Onset: 01-04-2022 Chronic Miscellaneous mental health disorders (6 sources) Chronic insomnia; Translations: [Psychophysiologic insomnia] Chronic Nausea and vomiting (6 sources) Nausea; Translations: [Nausea] 02-08-2025 Episodic Other diseases of veins and lymphatics (20 sources) Venous hypertension of lower limb; Translations: [Chronic venous hypertension (idiopathic) without complications of unspecified lower extremity] Onset: 12-21-2022 12-21-2022 Chronic Other eye disorders (20 sources) Bilateral vitreous floaters; Translations: [Other vitreous opacities, bilateral] Onset: 12-14-2022 12-14-2022 Chronic Other hereditary and degenerative nervous system conditions (1 source) Restless legs syndrome; Translations: [RESTLESS LEGS SYNDROME] Onset: 11-06-2021 Chronic Other hereditary and degenerative nervous system conditions (20 sources) Restless legs; Translations: [Restless legs syndrome] Onset: 01-18-2024 01-18-2024 Chronic Other lower respiratory disease (3 sources) Disorder of lung; Translations: [Other disorders of lung] Episodic Other nervous system disorders (1 source) Polyneuropathy, unspecified; Translations: [POLYNEUROPATHY UNSPECIFIED] Onset: 04-14-2022 Chronic Other nervous system disorders (20 sources) Chronic pain syndrome; Translations: [Chronic pain syndrome] Onset: 12-14-2022 12-14-2022 Chronic Other nervous system disorders (20 sources) Difficulty walking; Translations: [Difficulty in walking, not elsewhere classified] Onset: 12-14-2022 12-14-2022 Chronic Other nervous system disorders (20 sources) Polyneuropathy; Translations: [Polyneuropathy, unspecified] Onset: 01-24-2014 03-11-2023 Chronic Other nutritional; endocrine; and metabolic disorders (6 sources) Obese class II; Translations: [Body mass index (BMI) 35.0-35.9, adult] Chronic Other nutritional; endocrine; and metabolic disorders (1 source) Body mass index (BMI) 35.0-35.9, adult Onset: 07-02-2021 Resolved: 07-02-2021 Chronic Other nutritional; endocrine; and metabolic disorders (20 sources) Body mass index 30+ - obesity; Translations: [Obesity, unspecified] Onset: 04-21-2020 03-11-2023 Chronic Other nutritional; endocrine; and metabolic disorders (20 sources) Lipoprotein deficiency disorder; Translations: [Lipoprotein deficiency] Onset: 05-01-2018 03-11-2023 Chronic Other nutritional; endocrine; and metabolic disorders (19 sources) Obesity caused by energy imbalance; Translations: [Morbid (severe) obesity due to excess calories] Onset: 08-28-2024 04-09-2024 Chronic Other upper respiratory disease (20 sources) Allergic rhinitis; Translations: [Other allergic rhinitis] Onset: 12-14-2022 12-14-2022 Chronic Peripheral and visceral atherosclerosis (20 sources) Peripheral vascular disease; Translations: [Peripheral vascular disease, unspecified] Onset: 12-14-2022 12-14-2022 Chronic Residual codes; unclassified (20 sources) Obstructive sleep apnea syndrome; Translations: [Obstructive sleep apnea (adult) (pediatric)] Onset: 04-11-2019 03-11-2023 Chronic Residual codes; unclassified (6 sources) Obstructive sleep apnea (adult) (pediatric); Translations: [Obstructive sleep apnea (adult)(pediatric)] Onset: 07-02-2021 Resolved: 07-02-2021 Chronic Residual codes; unclassified (1 source) Obstructive sleep apnea (adult)(pediatric); Translations: [Obstructive sleep apnea (adult) (pediatric)] Onset: 06-27-2023 Chronic Residual codes; unclassified (20 sources) 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 airway pressure ventilation; Translations: [Dependence on other enabling machines and devices] Onset: 12-14-2022 12-14-2022 Chronic Residual codes; unclassified (20 sources) Initial insomnia; Translations: [Other insomnia] Onset: 12-14-2022 12-14-2022 Chronic Spondylosis; intervertebral disc disorders; other back problems (20 sources) Spondylosis without myelopathy or radiculopathy, lumbar region; Translations: [Other intervertebral disc degeneration, lumbar region] Onset: 11-03-2021 Chronic Spondylosis; intervertebral disc disorders; other back problems (17 sources) Spinal stenosis, lumbar region without neurogenic [...] counseling] 04-09-2024 Episodic Blindness and vision defects (20 sources) Diplopia; Translations: [Diplopia] Onset: 03-11-2023 03-11-2023 Episodic Conditions associated with dizziness or vertigo (20 sources) Vertigo; Translations: [Dizziness and giddiness] Onset: 10-27-2023 10-27-2023 Episodic E Codes: Fall (1 source) Unspecified fall, initial encounter; Translations: [UNSPECIFIED FALL INITIAL ENCOUNTER] Onset: 01-07-2022 Episodic Fracture of upper limb (20 sources) Fracture of radial neck; Translations: [Displaced fracture of neck of unspecified radius, initial encounter for closed fracture] Onset: 03-11-2023 03-11-2023 Episodic Mood disorders (20 sources) Mood disorders Onset: 04-09-2024 04-09-2024 Other aftercare (1 source) supervisor intermediates (current) use of insulin; Translations: [M[facility] CURRENT USE OF INSULIN] Onset: 01-27-2022 Episodic Other aftercare (1 source) supervisor intermediates (current) use of aspirin; Translations: [[facility] CURRENT USE OF ASPIRIN] Onset: 01-07-2022 Episodic Other aftercare (1 source) [facility] (current) use of oral hypoglycemic drugs; Translations: [[facility] USE ORAL HYPOGLYCEMIC DX] Onset: 01-07-2022 Episodic Other aftercare (1 source) Other terminal supervisor (current) drug therapy; Translations: [OTH ODD SHOE EXAMINER CURRENT DRUG THERAPY] Onset: 01-07-2022 Episodic Other aftercare (20 sources) Long-term current use of insulin; Translations: [FDC (current) use of insulin] Onset: 01-28-2016 03-11-2023 Episodic Other and unspecified benign neoplasm (20 sources) Adenomatous polyp of colon ; Translations: [Benign neoplasm of ascending colon] Onset: 12-14-2022 12-14-2022 Episodic Other and unspecified benign neoplasm (20 sources) History of polyp of colon; Translations: [Personal history of colonic polyps] Onset: 06-01-2018 03-11-2023 Episodic Other and unspecified benign neoplasm (20 sources) Benign neoplasm of colon; Translations: [Benign neoplasm of colon, unspecified] Onset: 06-27-2018 03-11-2023 Episodic Other bone disease and musculoskeletal deformities (20 sources) Osteopenia; Translations: [Other specified disorders of bone density and structure, unspecified site] Onset: 12-14-2022 12-14-2022 Episodic Other connective tissue disease (1 source) Arthrodesis status; Translations: [ARTHRODESIS STATUS] Onset: 01-27-2022 Episodic Other connective tissue disease (20 sources) Trigger thumb of left hand; Translations: [Trigger thumb, left thumb] Onset: 12-14-2022 12-14-2022 Episodic Other connective tissue disease (20 sources) Acquired trigger finger; Translations: [Trigger finger, unspecified finger] Onset: 01-15-2021 03-11-2023 Episodic Other connective tissue disease (2 sources) Iliopsoas bursitis of right hip; Translations: [Other bursitis of hip, right hip] 04-09-2024 Episodic Other diseases of veins and lymphatics (20 sources) Peripheral venous insufficiency; Translations: [Venous insufficiency (chronic) (peripheral)] Onset: 12-14-2022 12-14-2022 Episodic Other eye disorders (20 sources) Lower eyelid ectropion; Translations: [Unspecified ectropion of unspecified eye, unspecified eyelid] Onset: 03-11-2023 03-11-2023 Episodic Other eye disorders (20 sources) Epiphora; Translations: [Unspecified epiphora, unspecified side] Onset: 04-08-2022 03-11-2023 Episodic Other injuries and conditions due to external causes (20 sources) History of fall; Translations: [History of falling] Onset: 10-02-2015 03-11-2023 Episodic Other non-traumatic joint disorders (20 sources) Pain in elbow; Translations: [Pain in unspecified elbow] Onset: 03-11-2023 03-11-2023 Episodic Other nutritional; endocrine; and metabolic disorders (20 sources) Cholesterol level - finding; Translations: [Lipoprotein deficiency] Onset: 12-14-2022 Resolved: 12-14-2022 12-14-2022 Chronic Residual codes; unclassified (1 source) Insomnia, unspecified; Translations: [INSOMNIA UNSPECIFIED] Onset: 07-17-2022 Episodic Residual codes; unclassified (2 sources) Localized edema; Translations: [Localized edema] Onset: 09-28-2022 Episodic Residual codes; unclassified (20 sources) Insomnia; Translations: [Insomnia, unspecified] Onset: 06-10-2015 03-11-2023 Episodic Residual codes; unclassified (20 sources) Family history of malignant neoplasm of gastrointestinal tract; Translations: [Family history of malignant neoplasm of digestive organs] Onset: 06-01-2018 03-11-2023 Episodic Screening and history of mental health and substance abuse codes (20 sources) Ex-smoker; Translations: [Personal history of nicotine dependence] Onset: 10-22-2015 03-11-2023 Episodic Skull and face fractures (20 sources) Closed fracture of orbital floor (blow-out); Translations: [Fracture of orbital floor, unspecified side, initial encounter for closed fracture] Onset: 03-11-2023 03-11-2023 Episodic Thyroid disorders (20 sources) Sick-euthyroid syndrome; Translations: [Sick-euthyroid syndrome] Onset: 12-14-2022 12-14-2022 Episodic Unclassified (1 source) LOW BACK PAIN, UNSPECIFIED; Translations: [LOW BACK PAIN, UNSPECIFIED] Onset: 10-30-2021 Results Test Name Value Interpretation Reference Range Facility XR Thoracic spine 2 [facility] 01-24-[address] [address] XRay Report Signed Patient: KONRAD MOBLEY MR#: [id number] : 1945 Acct:[id number] Age/Sex: 79 / F ADM Date: 01/24/25 Loc: RAD Attending Dr: Rylee Kenyon 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 01/24/2025 12:21 PM Dictation Location: [place] [address] Electronically authenticated by: [id number] Y Date: 01/24/2025 12:21 Dictated By: Skye Ramírez M.D. 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: [facility] Radiology, Radiologist, MD - 01/24/[address] [address] XRay Report Signed Patient: KONRAD MOBLEY MR#: [id number] : 1945 Acct:[id number] Age/Sex: 79 / F ADM Date: 01/24/25 Loc: RAD Attending Dr: Rylee Kenyon NP Ordering Physician: Rylee Kenyon NP Date of Service: 01/24/25 Procedure(s): XR thoracic spine 2V Accession Number(s): [id number] cc: KOFI BOWERS ; Rylee Kenyon NP The [address] [address] Patient Name: KONRAD MOBLEY MRN: [facility]:[id number] date: 1945 Sex: F Assigned Patient Location: [facility] Current Patient Location: [facility] Accession/Order Number: [id number] Exam Date: 01/24/2025 12:17 Report Date: 01/24/2025 12:21 At the request of: RYLEE KENYON NP Procedure: XR thoracic spine 2V THORACIC [...] Ramírez M.D. 01/24/2025 12:21 PM Dictation Location: [place] [address] Electronically authenticated by: [id number] Y Date: 01/24/2025 12:21 Dictated By: Skye Ramírez M.D. 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: [employer] Radiology Study observation (narrative) [employer] XR Thoracic spine 2 ViewsOrd ered By: Radiologist Radiology on 01-24-2025 [employer] Work Phone: Laboratory - Hematology and Cell countson 01-14-2025 HbA1c (Bld) [Mass fraction] 6.4 % [employer] No Panel Informationon 01-14 Interpretation and review of laboratory results Abnormal [employer] e Laboratory - Hematology and Cell countson 08-28-2024 HbA1c (Bld) [Mass fraction] 6.4 % [employer] Panel Informationon 08-28 Interpretation and review of laboratory results Abnormal [facility] [employer] ALL BASIC METABOLIC PANELon 07-18-2024 Anion gap [Moles/Vol] 11.6 mmol/L [facility] Calcium [Mass/Vol] 9 mg/dL 8.5 - 10. 1 mg/dL [facility] Chloride [Moles/Vol] 106 mmol/L 98 - 10 7 mmol/L [facility] CO2 [Moles/Vol] 30.2 mmol/L 21.0 - 32.0 mmol/L [facility] Creatinine [Mass/Vol] 0.99 mg/dL 0.55 - 1.02 mg/dL [facility] GFR/1.73 sq M.predicted CKD-EPI (S/P/Bld) [Vol rate/Area] >60 >=60 mL/min/1.73m 2 [facility] Glucose [Mass/Vol] 132 mg/dL High 74 - 106 mg/dL [facility] Interpretation and review of laboratory results Abnormal [facility] Potassium [Moles/Vol] 3.8 mmol/L 3.5 - 5.1 mmol/L [facility] Sodium [Moles/Vol] 144 mmol/L 136 - 145 mmol/L [facility] TBH EGFR-NON AF AUSTRALIAN 54 Low >=60 mL/min/1.73m 2 [facility] Urea nitrogen [Mass/Vol] 15 mg/dL 7.0 - 18.0 mg/dL [facility] Urea nitrogen/Creatinine [Mass ratio] 15.2 mg/mg [facility] e HbA1c (Bld) [Mass fraction]o n 04-09-2024 [facility] e Laboratory - Hematology and Cell countson 04-09-2024 HbA1c (Bld) [Mass fraction] 7.0 % [facility] 36on 01-26-2023 36 Follow-up in 3 months as planned. Thanks [facility] Office Visiton 01-03-2023 Follow-up visit [id number] Konrad Moblye 1945 F Date Provider Department Center 01/03/2023 Suri-URI CARLSON Family History Problem Relation Age of Onset Diabetes Father Heart disease Father Coronary artery disease Father Coronary artery disease Brother Family Status - Relation Status Age at Father Brother Level of Service:02741 CT OFFICE/OUTPATIENT ESTABLISHED LOW MDM 20-29 MIN Reason for Visit and Comments: Medication Problem [65] [facility] Office Visiton 09-28-2022 Follow-up visit [id number] Konrad Mobley 1945 F Date Provider Department [place] 09/28/2022 O[place]AR [place] [facility] Family History Problem Relation Age of Onset Diabetes Father Heart disease Father Coronary artery disease Father Coronary artery disease Brother Family Status - Relation Status Age at Father Brother Level of Service:70376 CT OFFICE/OUTPATIENT ESTABLISHED LOW MDM 20-29 MIN Reason for Visit and Comments: Hypertension [291559] Normal [facility] PROF CHEM 8 (BAS METB)on Anion gap [Moles/Vol] 11.6 mmol/L Normal [facility] Comment on above: Performed By: #### B MP #### [facility] [address] [place] [address] Dr. Rose Chadwick Calcium [Mass/Vol] 9.4 mg/dL Normal 8.5-10.1 [facility] Comment on above: Performed By: #### B MP #### [facility] [address] [place] [address] Dr. Rose Chadwick Chloride [Moles/Vol] 101 mmol/L Normal 98-107 [facility] Comment on above: Performed By: #### B MP #### [facility] [address] [place] [address] [address] Rose Chadwick CO2 [Moles/Vol] 32.6 mmol/L Critically high 21.0-32.0 [facility] Comment on above: Performed By: #### B MP #### [facility] [address] [place] [address] [address] Rose Chadwick Creatinine [Mass/Vol] 0.86 mg/dL Normal 0.55-1.02 [facility] Comment on above: Performed By: #### B MP #### [facility] [address] [place] [address] Dr. Rose Chadwick EGFR-AF AUSTRALIAN >60 Normal >=[address] [facility] Comment on above: Performed By: #### B MP #### [facility] [address] [place] [address] [address] Rose Chadwick EGFR-NON AF AUSTRALIAN >60 Normal >=60 [facility] Comment on above: Performed By: #### B MP #### [facility] [address] [place] [address] [address] Rose Chadwick Glucose [Mass/Vol] 108 mg/dL Critically high 74-[address] [facility] Comment on above: Performed By: #### B MP #### [facility] [address] [place] [address] [address] Rose Chadwick Potassium [Moles/Vol] 4.2 mmol/L Normal 3.5-5.1 [facility] Comment on above: Performed By: #### B MP #### [facility] [address] [place] [address] [address] Rose Chadwick Sodium [Moles/Vol] 141 mmol/L Normal 136-145 [facility] Comment on above: Performed By: #### B MP #### [facility] [address] [place] [address] [address] Rose Chadwick Urea nitrogen [Mass/Vol] 15.0 mg/dL Normal 7.0-18.0 [facility] Comment on above: Performed By: #### B MP #### [facility] [address] [place] [address] [address] Rose Chadwick Urea nitrogen/Creatinine [Mass ratio] 17.4 mg/mg Normal [facility] Comment on above: Performed By: #### B MP #### [facility] [address] [place] [address] [address] Rose Chadwick 37on 08-31-2022 37 -Obtain an arm BP monitor, [employer] brand is preferred -Check blood pressure at least once daily 2-3 hours after taking medications - Stop taking Losartan -Start taking Losartan-hydrochloro thiazide -Check labs in 1 week Normal [facility] Office Visiton 08-31-2022 Follow-up visit [id number] Konrad Mobley 1945 F Date Provider Department Center 08/31/2022 [address]45[address]-LCSRLBCSYOSCAR DEL TORO [facility] Family History Problem Relation Age of Onset Diabetes Father Heart disease Father Coronary artery disease Father Coronary artery disease Brother Family Status - Relation Status Age at Father Brother Level of Service:80031 CT OFFICE/OUTPATIENT ESTABLISHED LOW MDM 20-29 MIN Reason for Visit and Comments: Hypertension [195249] Normal [facility] PROF CHEM 8 (BAS METB)on Anion gap [Moles/Vol] 11.9 mmol/L Normal [facility] Comment on above: Performed By: #### B MP #### [facility] [address] [place] [address] Dr. Rose Chadwick Calcium [Mass/Vol] 9.0 mg/dL Normal 8.5-10.1 [facility] Comment on above: Performed By: #### B MP #### [facility] [address] [place] [address] Dr. Rose Chadwick Chloride [Moles/Vol] 103 mmol/L Normal 98-107 [facility] Comment on above: Performed By: #### B MP #### [facility] [address] [place] [address] Dr. Rose Chadwick CO2 [Moles/Vol] 30.3 mmol/L Normal 21.0-32.0 [facility] Comment on above: Performed By: #### B MP #### [facility] [address] [place] [address] Dr. Rose Chadwick Creatinine [Mass/Vol] 0.84 mg/dL Normal 0.55-1.02 [facility] Comment on above: Performed By: #### B MP #### [facility] [address] [place] [address] Dr. Rose Chadwick EGFR-AF AUSTRALIAN >60 Normal >=60 [facility] Comment on above: Performed By: #### B MP #### [facility] [address] [place] [address] Dr. Rose Chadwick EGFR-NON AF AUSTRALIAN >60 Normal >=60 [facility] Comment on above: Performed By: #### B MP #### [facility] [address] [place] [address] Dr. Rose Chadwick Glucose [Mass/Vol] 119 mg/dL Critically high 74-106 [facility] Comment on above: Performed By: #### B MP #### [facility] [address] [place] [address] [address] Rose Chadwick Potassium [Moles/Vol] 4.2 mmol/L Normal 3.5-5.1 [facility] Comment on above: Performed By: #### B MP #### [facility] [address] [address] [address] Rose Chadwick Sodium [Moles/Vol] 141 mmol/L Normal 136-145 [facility] Comment on above: Performed By: #### B MP #### [facility] [address] [address] [address] Rose Chadwick Urea nitrogen [Mass/Vol] 13.0 mg/dL Normal 7.0-18.0 [facility] Comment on above: Performed By: #### B MP #### [facility] [address] [place] [address] [address] Rose Chadwick Urea nitrogen/Creatinine [Mass ratio] 15.5 mg/mg Normal [facility] Comment on above: Performed By: #### B MP #### [facility] [address] [place] [address] [address] Rose Chadwick Follow-Upon 06-01-2022 Follow-Up [id number] Konrad Mobley 1945 F Date Provider Department Center 06/01/2022 ANGELA CAMERON [facility] Family History Problem Relation Age of Onset Diabetes Father Heart disease Father Coronary artery disease Father Coronary artery disease Brother Family Status - Relation Status Age at Father Brother Level of Service:59843 CT OFFICE/OUTPATIENT ESTABLISHED LOW MDM 20-29 MIN Reason for Visit and Comments: Hypertension [796753] Normal [facility] PROF CHEM 8 (BAS METB)on Anion gap [Moles/Vol] 11.1 mmol/L Normal [facility] Comment on above: Performed By: #### B MP #### [facility] [address] [place] [address] [address] Rose Chadwick Calcium [Mass/Vol] 9.0 mg/dL Normal 8.5-10.1 [facility] Comment on above: Performed By: #### B MP #### [facility] [address] [place] [address] [address] Rose Chadwick Chloride [Moles/Vol] 103 mmol/L Normal 98-107 [facility] Comment on above: Performed By: #### B MP #### [facility] [address] [place] [address] [address] Rose Chadwick CO2 [Moles/Vol] 29.6 mmol/L Normal 21.0-32.0 [facility] Comment on above: Performed By: #### B MP #### [facility] [address] [place] [address] [address] Rose Chadwick Creatinine [Mass/Vol] 1.22 mg/dL Critically high 0.55-1.02 [facility] Comment on above: Performed By: #### B MP #### [facility] [address] [place] [address] [address] Rose Chadwick EGFR-AF AUSTRALIAN 52 mL/min/1.73m2 Critically low >=60 [facility] Comment on above: Performed By: #### B MP #### [facility] [address] [place] [address] [address] Rose Chadwick EGFR-NON AF AUSTRALIAN 43 mL/min/1.73m2 Critically low >=60 [facility] Comment on above: Performed By: #### B MP #### [facility] [address] [place] [address] [address] Rose Chadwick Glucose [Mass/Vol] 112 mg/dL Critically high 74-106 [facility] Comment on above: Performed By: #### B MP #### [facility] [address] [place] [address] [address] Rose Chadwick Potassium [Moles/Vol] 4.7 mmol/L Normal 3.5-5.1 [facility] Comment on above: Performed By: #### B MP #### [facility] [address] [place] [address] [address] Rose Chadwick Sodium [Moles/Vol] 139 mmol/L Normal 136-145 [facility] Comment on above: Performed By: #### B MP #### [facility] [address] [place], [place] [address] Dr. Rose Chadwick Urea nitrogen [Mass/Vol] 23.0 mg/dL Critically high 7.0-18.0 [facility] Comment on above: Performed By: #### B MP #### [facility] [address] [place], [place] [address] Dr. Rose Chadwick Urea nitrogen/Creatinine [Mass ratio] 18.9 mg/mg Normal [facility] Comment on above: Performed By: #### B MP #### [facility] [address] [place], [place] [address] Dr. Rose Chadwick 30on 05-10-2022 30 Recent [...] message. Angela Gillespie NP Division of Cardiology, [facility]- [phone] Pager- [phone] Email- [email or web address] Normal [facility] Documentationon 05-10-2022 Documentation [id number] Konrad Mobley 1945 F Date Provider Department Center 05/10/2022 Lita-ANGELA GILLESPIE [facility] Family History Problem Relation Age of [...] med changes on voice mail message. Normal [facility] Orders Onlyon 05-10-2022 Orders Only [id number] Konrad Mobley 1945 F Date Provider Department Center 05/10/2022 CA AMANDA [facility] Family History Problem Relation Age of Onset Diabetes Father Heart disease Father Coronary artery disease Father Coronary artery disease Brother Family Status - Relation Status Age at Father Brother Normal [facility] PROF CHEM 8 (BAS METB)on Anion gap [Moles/Vol] 13.4 mmol/L Normal [facility] Comment on above: Performed By: #### B MP ####[facility] [address] [place] [address]Dr. Rose Chadwick Calcium [Mass/Vol] 9.1 mg/dL Normal 8.5-10.1 [facility] Comment on above: Performed By: #### B MP ####[facility] [address] [place], [place] [address]Dr. Rose Chadwick Chloride [Moles/Vol] 103 mmol/L Normal 98-107 [facility] Comment on above: Performed By: #### B MP ####[facility] [address] [place], [place] [address]Dr. Rose Chadwick CO2 [Moles/Vol] 28.3 mmol/L Normal 21.0-32.0 [facility] Comment on above: Performed By: #### B MP ####[facility] [address] [place] [address]Dr. Rose Chadwick Creatinine [Mass/Vol] 1.42 mg/dL Critically high 0.55-1.02 [facility] Comment on above: Performed By: #### B MP ####[facility] [address] [place], [place] [address]Dr. Rose Chadwick EGFR-AF AUSTRALIAN 43 mL/min/1.73m2 Critically low >=60 [facility] Comment on above: Performed By: #### B MP ####[facility] [address] [place] [address]Dr. Rose Chadwick EGFR-NON AF AUSTRALIAN 36 mL/min/1.73m2 Critically low >=60 [facility] Comment on above: Performed By: #### B MP ####[facility] [address] [place] [address]Dr. Rose Chadwick Glucose [Mass/Vol] 125 mg/dL Critically high 74-[address] [facility] Comment on above: Performed By: #### B MP ####[facility] [address] [place] [address]Dr. Rose Chadwick Potassium [Moles/Vol] 5.7 mmol/L Critically high 3.5-5.1 [facility] Comment on above: Performed By: #### B MP ####[facility] [address] [place] [address]Dr. Rose Chadwick Sodium [Moles/Vol] 139 mmol/L Normal 136-145 [facility] Comment on above: Performed By: #### B MP ####[facility] [address] [place] [address]Dr. Rose Chadwick Urea nitrogen [Mass/Vol] 28.0 mg/dL Critically high 7.0-18.0 [facility] Comment on above: Performed By: #### B MP ####[facility] [address] [place] [address]Dr. Rose Chadwick Urea nitrogen/Creatinine [Mass ratio] 19.7 mg/mg Normal [facility] Comment on above: Performed By: #### B MP ####[facility] [address] [place] [address]Dr. Rose Chadwick Office Visiton 04-28-2022 Follow-up visit [id number] Konrad Mobley 1945 F Date Provider Department Center 04/28/2022 ANGELA CAMERON [facility] Family History Problem Relation Age of Onset Diabetes Father Heart disease Father Coronary artery disease Father Coronary artery disease Brother Family Status - Relation Status Age at Father Brother Level of Service:62636 CT OFFICE/OUTPATIENT ESTABLISHED MOD MDM 30-39 MIN Reason for Visit and Comments: Hypertension [069919] - Patient here for 3 mo follow up hypertension. Denies chest pain and SOB. Normal [facility] Abstracton 04-16-2022 Abstract [id number] Konrad Mobley 1945 F Date Provider Department Center 04/16/[address] [facility] Family History Problem Relation Age of Onset Diabetes Father Heart disease Father Coronary artery disease Father Coronary artery disease Brother Family Status - Relation Status Age at Father Brother Normal [facility] POINT OF CARE GLUCOSEon - Glucose [Mass/Vol] 120 mg/dL Critically high 74-[address] [facility] Comment on above: Performed By: #### P OCGLUC #### [facility] [address] [place] [address] [address] PELVIS WO CONon [...] by: JOE MUKHERJEE Date: 2022-01-06 12:14 Normal [facility] XR DEXA BONE DENSITYon 01-04 [...] by: JOE MUKHERJEE Date: 2022-01-04 11:51 Normal [facility] [place] WO CONon [address] [facility] CON [facility]AM[facility], 11/30/2021 12:53 PM EDT HISTORY: Lumbosacral [...] JOE MUKHERJEE Date: 2021-11-30 16:48 Normal [facility] PROF CHEM 8 (BAS METB)on Anion gap [Moles/Vol] 13.3 mmol/L Normal [facility] Comment on above: Performed By: #### B MP ####[facility] [address] [place] [address]Dr. Rose Chadwick Calcium [Mass/Vol] 8.8 mg/dL Normal 8.5-10.1 [facility] Comment on above: Performed By: #### B MP ####[facility] [address] [place], [place] [address]Dr. Rose Chadwick Chloride [Moles/Vol] 101 mmol/L Normal 98-107 [facility] Comment on above: Performed By: #### B MP ####[facility] [address] [place], [place] [address]Dr. Rose Chadwick CO2 [Moles/Vol] 29.5 mmol/L Normal 22.0-30.[address] [facility] Comment on above: Performed By: #### B MP ####[facility] [address] [place], [place] [address]Dr. Rose Chadwick Creatinine [Mass/Vol] 0.85 mg/dL Normal 0.52-1.04 [facility] Comment on above: Performed By: #### B MP ####[facility] [address] [place] [address]Dr. Rose Chadwick EGFR-AF AUSTRALIAN >60 Normal >=[address] [facility] Comment on above: Performed By: #### B MP ####[facility] [address] [place], [place] [address]Dr. Rose Chadwick EGFR-NON AF AUSTRALIAN >60 Normal >=60 [facility] Comment on above: Performed By: #### B MP ####[facility] [address] [place] [address] Rose Chadwick Glucose [Mass/Vol] 116 mg/dL Critically high 74-[address] [facility] Comment on above: Performed By: #### B MP ####[facility] [address] [place] [address]Dr. Rose Chadwick Potassium [Moles/Vol] 4.8 mmol/L Normal 3.4-5.0 [facility] Comment on above: Performed By: #### B MP ####[facility] [address] [place], [place] [address]Dr. Rose Chadwick Sodium [Moles/Vol] 139 mmol/L Normal 137-145 [facility] Comment on above: Performed By: #### B MP ####[facility] [address] [place], [place] [address]Dr. Rose Chadwick Urea nitrogen [Mass/Vol] 15.0 mg/dL Normal 7.0-18.0 [facility] Comment on above: Performed By: #### B MP ####[facility] [address] [place], [place] [address]Dr. Rose Chadwick Urea nitrogen/Creatinine [Mass ratio] 17.6 mg/mg Normal [facility] Comment on above: Performed By: #### B MP ####[facility] [address] [place], [place] [address]Dr. Rose Chadwick XR LSPINE MIN 4 VIEWSon [...] PATITO DE JESUS Date: 2021-10-30 15:27 Normal [facility] Vital Signs Date Time Vital Sign Value Performing Clinician Facility 02-11-2025 14:10-0400 Body height 152.4 cm Kofi Bowers MD Work Phone: [facility] 02-11-2025 14:10-0400 Body mass index (BMI) [Ratio] 34.76 kg/m2 Kofi Bowers MD Work Phone: [facility] 02-11-2025 14:10-0400 Body weight 80.74 kg Kofi Bowers MD Work Phone: [facility] 02-11-2025 14:10-0400 Diastolic blood pressure 64 mm[Hg] Kofi Bowers MD Work Phone: [facility] 02-11-2025 14:10-0400 Heart rate 77 /min Kofi Bowers MD Work Phone: [facility] 02-11-2025 14:10-0400 Respiratory rate 17 /min Kofi Bowers MD Work Phone: [facility] 02-11-2025 14:10-0400 SaO2% (BldA) [Mass fraction] 97 % Kofi Bowers MD Work Phone: [facility] 02-11-2025 14:10-0400 Systolic blood pressure 120 mm[Hg] Kofi Bowers MD Work Phone: [facility] 02-08-2025 11:07-0400 Body height 152.4 cm Kofi Bowers MD Work Phone: [facility] 02-08-2025 11:07-0400 Body mass index (BMI) [Ratio] 34.57 kg/m2 Kofi Bowers MD Work Phone: [facility] 02-08-2025 11:07-0400 Body temperature 97.5 [degF] Kofi Bowers MD Work Phone: [facility] 02-08-2025 11:07-0400 Body weight 80.29 kg Kofi Bowers MD Work Phone: [facility] 02-08-2025 11:07-0400 Diastolic blood pressure 66 mm[Hg] Kofi Bowers MD Work Phone: [facility] 02-08-2025 11:07-0400 Heart rate 76 /min Kofi Bowers MD Work Phone: [facility] 02-08-2025 11:07-0400 SaO2% (BldA) [Mass fraction] 97 % Kofi Bowers MD Work Phone: [facility] 02-08-2025 11:07-0400 Systolic blood pressure 148 mm[Hg] Kofi Bowers MD Work Phone: [facility] 01-14-2025 13:14-0400 Body height 152.4 cm Skye Hemmer PA Work Phone: [facility] 01-14-2025 13:14-0400 Body mass index (BMI) [Ratio] 35.15 kg/m2 Skye Hemmer PA Work Phone: [facility] 01-14-2025 13:14-0400 Body weight 81.65 kg Skye Hemmer PA Work Phone: [facility] 01-14-2025 13:14-0400 Diastolic blood pressure 88 mm[Hg] Skye Hemmer PA Work Phone: [facility] 01-14-2025 13:14-0400 Heart rate 78 /min Skye Hemmer PA Work Phone: [facility] 01-14-2025 13:14-0400 Respiratory rate 16 /min Skye Hemmer PA Work Phone: [facility] 01-14-2025 13:14-0400 SaO2% (BldA) [Mass fraction] 97 % Skye Hemmer PA Work Phone: [facility] 01-14-2025 13:14-0400 Systolic blood pressure 144 mm[Hg] Skye Hemmer PA Work Phone: [facility] 08-28-2024 13:21-0500 Diastolic blood pressure 76 mm[Hg] Skye Hemmer PA Work Phone: [facility] 08-28-2024 13:21-0500 Systolic blood pressure 148 mm[Hg] Skye Hemmer PA Work Phone: [facility] 08-28-2024 13:10-0500 Body height 152.4 cm Skye Hemmer PA Work Phone: [facility] 08-28-2024 13:10-0500 Body mass index (BMI) [Ratio] 35.27 kg/m2 Skye Hemmer PA Work Phone: [facility] 08-28-2024 13:10-0500 Body weight 81.92 kg Skye Hemmer PA Work Phone: [facility] 08-28-2024 13:10-0500 Heart rate 99 /min Skye Hemmer PA Work Phone: [facility] 08-28-2024 13:10-0500 Respiratory rate 16 /min Skye Hemmer PA Work Phone: [facility] 08-28-2024 13:10-0500 SaO2% (BldA) [Mass fraction] 99 % Skye Hemmer PA Work Phone: [facility] 06-29-2024 11:41-0500 Body mass index (BMI) [Ratio] 35.9 kg/m2 [facility] 06-28-2024 15:19-0500 Body height 152.4 cm [facility] 06-28-2024 15:19-0500 Body weight 83.46 kg [facility] 06-28-2024 15:19-0500 Diastolic blood pressure 84 mm[Hg] [facility] 06-28-2024 15:19-0500 Heart rate 87 /min [facility] 06-28-2024 15:19-0500 SaO2% (BldA) [Mass fraction] 96 % [facility] 06-28-2024 15:19-0500 Systolic blood pressure 170 mm[Hg] [facility] 04-09-2024 11:10-0400 Body mass index (BMI) [Ratio] 36.21 kg/m2 Kofi Bowers MD Work Phone: [facility] 04-09-2024 11:10-0400 Body weight 84.1 kg Kofi Bowers MD Work Phone: [facility] 04-09-2024 11:10-0400 Diastolic blood pressure 65 mm[Hg] Kofi Bowers MD Work Phone: [facility] 04-09-2024 11:10-0400 Heart rate 70 /min Kofi Bowers MD Work Phone: [facility] 04-09-2024 11:10-0400 Respiratory rate 16 /min Kofi Bowers MD Work Phone: [facility] 04-09-2024 11:10-0400 SaO2% (BldA) [Mass fraction] 93 % Kofi Bowers MD Work Phone: [facility] 04-09-2024 11:10-0400 Systolic blood pressure 115 mm[Hg] Kofi Bowers MD Work Phone: [facility] 06-27-2023 13:00-0500 Body height 154.94 cm Abdullahi Cernacheyenne Other [employer] Other 06-27-2023 13:00-0500 Body mass index (BMI) [Ratio] 35.9 kg/m2 Abdullahi Cernacheyenne Other [facility] Other 06-27-2023 13:00-0500 Body weight 86.18 kg Abdullahi Cernacheyenne Other [facility] Other 06-27-2023 13:00-0500 Diastolic blood pressure 64 mm[Hg] Abdullahi Acosta Other [facility] Other 06-27-2023 13:00-0500 SaO2% (BldA) [Mass fraction] 97 % Abdullahi Cernacheyenne Other [facility] Other 06-27-2023 13:00-0500 Systolic blood pressure 131 mm[Hg] Abdullahi Cernaban Other [facility] Other 06-28-2022 14:00-0500 Body height 154.94 cm Abdullahi Acosta Other [facility] Other 06-28-2022 14:00-0500 Body mass index (BMI) [Ratio] 37.22 kg/m2 Abdullahi Cernaban Other [facility] Other 06-28-2022 14:00-0500 Body temperature 96.8 [degF] Abdullahi Acosta Other [facility] Other 06-28-2022 14:00-0500 Body weight 89.36 kg Abdullahi Acosta Other [facility] Other 06-28-2022 14:00-0500 Diastolic blood pressure 73 mm[Hg] Abdullahi Acosta Other [facility] Other 06-28-2022 14:00-0500 SaO2% (BldA) [Mass fraction] 97 % Abdullahi Acosta Other [facility] Other 06-28-2022 14:00-0500 Systolic blood pressure 143 mm[Hg] Abdullahi Cernaban Other [facility] Other 07-02-2021 14:00-0500 Body height 154.94 cm Olamidera Ching Other [facility] Other 07-02-2021 14:00-0500 Body mass index (BMI) [Ratio] 35.33 kg/m2 Olamidera Ching Other [facility] Other 07-02-2021 14:00-0500 Body temperature 96 [degF] Olamidera Ching Other [facility] Other 07-02-2021 14:00-0500 Body weight 84.82 kg Olamide Jeane Other [facility] Other 07-02-2021 14:00-0500 Diastolic blood pressure 83 mm[Hg] Olamide Jeane Other [facility] Other 07-02-2021 14:00-0500 SaO2% (BldA) [Mass fraction] 97 % Olamide Jeane Other [facility] Other 07-02-2021 14:00-0500 Systolic blood pressure 176 mm[Hg] Olamide Jeane Other [employer] Other Encounters Encounter Date Encounter Type Care Provider Facility Start: 03-07-2025 End: 03-07-2025 ambulatory KOFI BOWERS Not Available Start: 02-25-2025 End: 02-25-2025 ambulatory Esperanza Maya MD Facility:[facility] Start: 02-11-2025 End: 02-11-2025 Office outpatient visit 15 minutes Kofi Bowers MD Work Phone: [facility] Comment on above: Nausea (Primary Dx); Type 2 diabetes mellitus with hyperglycemia, without long-term current use of insulin ([facility]) Start: 02-11-2025 End: 02-11-2025 ambulatory KOFI BOWERS Not Available Start: 02-11-2025 End: 02-11-2025 Bamboo flowsheet Kofi Bowers MD Work Phone: [facility] Start: 02-11-2025 End: 02-11-2025 Bamboo flowsheet Kofi Bowers MD Work Phone: [facility] Start: 02-08-2025 End: 02-08-2025 Bamboo flowsheet Kofi Bowers MD Work Phone: [facility] Start: 02-08-2025 End: 02-08-2025 Bamboo flowsheet Kofi Bowers MD Work Phone: [facility] Start: 02-08-2025 End: 02-08-2025 Office outpatient visit 15 minutes Kofi Bowers MD Work Phone: [facility] Comment on above: Nausea (Primary Dx) Start: 02-08-2025 End: 02-08-2025 ambulatory KOFI BOWERS Not Available Start: 01-24-2025 End: 01-24-2025 Clinisync Result Encounter Generic External Data Provider [facility] Unsolicited Start: 01-24-2025 End: 01-24-2025 Clinisync Result Encounter Generic External Data Provider [facility] Unsolicited Start: 01-14-2025 End: 01-14-2025 Bamboo flowsheet Skye Goode PA Work Phone: [facility] Start: 01-14-2025 End: 01-14-2025 Bamboo flowsheet Skye Goode PA Work Phone: [facility] Start: 01-14-2025 End: 01-14-2025 Office outpatient visit 15 minutes Skye Goode PA Work Phone: [facility] Comment on above: Lumbar paraspinal mu scle spasm (Primary Dx); Type 2 diabetes mellitus with hyperglycemia, without long-term current use of insulin ([facility]) Start: 01-14-2025 End: 01-14-2025 ambulatory SKYE GOODE Not Available Start: 12-03-2024 End: 12-03-2024 Refill Kofi Bowers MD Work Phone: [facility] Comment on above: Failed back syndrome Start: 10-03-2024 End: 10-03-2024 Refscott Bowers MD Work Phone: [facility] [...] 08-20-2024 End: 08-20-2024 ambulatory Esperanza Maya MD Facility:[facility] Start: 08-13-2024 End: 08-13-2024 ambulatory Esperanza Maya MD Facility:[facility] Start: 08-02-2024 End: 08-02-2024 Ko Bowers MD Work Phone: [facility] Comment on above: Failed back syndrome Start: 07-30-2024 End: 07-30-2024 ambulatory Esperanza Maya MD Facility: [facility] Start: 07-23-2024 End: 07-23-2024 ambulatory Esperanza Maya MD Facility:[facility] Start: 07-18-2024 End: 07-18-2024 Clinisync Result Encounter Generic External Data Provider [facility] Unsolicited Start: 07-18-2024 End: 07-18-2024 Clinisync Result Encounter Generic External Data Provider [facility] Unsolicited Start: 07-02-2024 End: 07-02-2024 Refill Kofi Bowers MD Work Phone: [facility] Comment on above: Failed back syndrome ; Hypothyroidism, unspecified type (CMS/HCC) Start: 06-29-2024 End: 06-29-2024 ambulatory [facility] Work Phone: Start: 06-29-2024 End: 06-29-2024 Patient encounter procedure [facility] Work Phone: Start: 06-04-2024 End: [...] 03-18-2024 End: 03-18-2024 Emergency department patient visit KOFISANCHO BOWERS [facility] Start: 09-29-2023 Refill Kofi Bowers MD Work Phone: [facility] Comment on above: Failed back syndrome Start: 06-27-2023 End: 06-27-20[facility] Facility:[facility] Start: 06-27-2023 Office outpatient vi sit 15 minutes [facility] Start: 06-27-2023 End: 06-27-2023 ambulatory II Kofi Robinson Work Phone: [facility] Work Phone: Start: 06-27-2023 End: 06-27-2023 Patient encounter procedure II Kofi Bowers Work Phone: [facility] Work Phone: Start: 01-18-2023 ambulatory NARENDRANATH LAKSHMIPATHY . Facility:[facility] Start: 01-03-2023 End: 01-03-2023 ambulatory URI CARLSON [facility] Start: 10-14-2022 End: 10-15-[address] SERENITY GARCIA . Facility:[facility] Start: 09-28-2022 End: 09-28-2022 ambulatory [facility] Start: 09-07-2022 End: 09-08-[address] DOCTOR BUENROSTRO Facility:[facility] Start: 08-31-2022 End: 08-31-2022 ambulatory [facility] Start: 08-23-2022 End: 08-24-[address] FRANKLYN GARCIA Facility:[facility] Start: 07-14-2022 End: 07-15-2022 ambulatory BETZAIDA ZIMMER . Facility:[facility] Start: 06-28-2022 Office outpatient vi sit 15 minutes Abdullahi Acosta [facility] Start: 06-28-2022 End: 06-28-2022 ambulatory II Kofi Bowers Work Phone: [facility] Work Phone: Start: 06-28-2022 End: 06-28-2022 Patient encounter procedure II Kofi Bowers Work Phone: [facility] Start: 06-01-2022 End: 06-01-2022 ambulatory [facility] Start: 05-18-2022 End: 05-19-2022 ambulatory ANGELA GILLESPIE Facility:[facility] Start: 05-05-2022 End: 05-06-2022 ambulatory ANGELA VERNA Facility:[facility] Start: 04-28-2022 End: 04-28-2022 ambulatory [facility] Start: 04-08-2022 End: 04-08-[address] SERENITY AGRCIA . Facility:[facility] Start: 02-10-2022 End: 02-11-2022 ambulatory [...] 07-02-2021 End: 07-02-2021 ambulatory Olamide Ching Other [facility] Other Start: 07-02-2021 Office outpatient vi sit 15 minutes Olamide Ching [facility] Procedures Date Procedure Procedure Detail Performing Clinician Start: 01-24-2025 Radex spine thoracic 2 views Generic External Data Provider Start: 01-14-2025 Hemoglobin glycosyla chad a1c Skye FARIAS Work Phone: Start: 08-28-2024 Hemoglobin glycosyla chad a1c Skye FARIAS Work Phone: Start: 07-18-2024 ALL BASIC METABOLIC PANEL Generic External Data Provider Start: 04-09-2024 Hemoglobin glycosyla chad a1c Kofi Bowers MD Work Phone: Plan of Treatment Date Care Activity Detail Author Start: 04-17-2025 End: 04-17-2025 Patient encounter procedure 04/17/2025 11:00 AM EDT Office Visit [facility] [address] [place] [address] Kofi Bowers MD [address] [place] [address] [facility] Start: 04-16-2025 Hemoglobin A1c measurement Diabetes: Hemoglobin A1C [facility] Start: 04-09-2025 Medicare Annual Wellness (AWV) Medicare Annual Wellness (AWV) [facility] Start: 04-09-2025 Urine screening for protein Diabetes: Urine Protein Screening [facility] Start: 02-11-2025 End: 02-11-2025 Patient encounter procedure [facility] Comment on above: Arrived Start: 02-08-2025 End: 02-08-2025 Patient encounter procedure 02/08/2025 11:15 AM EDT Office Visit [facility] [address] [place] [address] Kofi Bowers MD [address] [place] [address] Arrived [facility] Comment on above: Arrived Start: 01-17-2025 Urine screening for protein Diabetes: Urine Protein Screening [facility] Start: 01-14-2025 End: 01-14-2025 Patient encounter procedure 01/14/2025 1:00 PM EDT Office Visit [facility] [address] [place] [address] Skye Goode PA [address] [place] [address] Arrived [facility] Comment on above: Arrived Start: 11-26-2024 Hemoglobin A1c measurement Diabetes: Hemoglobin A1C [facility] Start: 08-28-2024 End: 08-28-2024 Patient encounter procedure 08/28/2024 1:00 PM EST Office Visit [facility] [address] [place] [address] Skye Goode PA [address] [place] [address] Arrived [facility] Comment on above: Arrived Start: 08-13-2024 End: 08-13-2024 Patient encounter procedure 08/13/2024 1:15 PM EST Office Visit [facility] [address] [place] [address] Kofi Bowers MD [address] [place] [address] [facility] Start: 08-09-2024 End: 08-09-2024 Patient encounter procedure 08/09/2024 1:15 PM EST Office Visit [facility] [address] [place] [address] Kofi Bowers MD [address] [place] [address] [facility] Start: 07-10-2024 Hemoglobin A1c measurement Diabetes: Hemoglobin A1C [facility] Start: 04-15-2024 Influenza vaccination Influenza Vacc ine (#1) [facility] Start: 04-09-2024 End: 04-09-2025 Microalbumin/Creatinine panel in random Urine Microalbumin / creatinine, urine ratio Lab Routine Type 2 diabetes mellitus without complication, without long-term current use of insulin ([facility]) Expected: 04/09/2024 (Approximate), Expires: 04/09/2025 [facility] Work Phone: Comment on above: Expected: 04/09/2024 (Approximate), Expires: 04/09/2025 Start: 04-09-2024 End: 04-09-2024 Patient encounter procedure [facility] Comment on above: Arrived Start: 01-27-2024 Hemoglobin A1c measurement Diabetes: Hemoglobin A1C [facility] Start: 01-04-2024 Medicare Annual Wellness (AWV) Medicare Annual Wellness (AWV) [facility] Start: 01-04-2024 Urine screening for protein Diabetes: Urine Protein Screening [facility] Start: 10-27-2023 End: 10-27-2023 Patient encounter procedure 10/27/2023 2:45 PM EDT Office Visit [facility] [address] [facility] [address] [place] [id number] Kofi Bowers MD [address] [facility] [address] [place] [address] [facility] Start: 10-19-2023 Hemoglobin A1c measurement Diabetes: Hemoglobin A1C [facility] Start: 04-28-2021 Glaucoma screening Diabetes: R etinopathy Screening [facility] Start: 05-15-2014 Pneumococcal Vaccine : 65+ Years (2 of 2 - PCV) Pneumococcal Vaccine: 65+ Years (2 of 2 - PCV) [facility] Immunizations Immunization Date Immunization Notes Care Provider Fa cility 12-07-2024 zoster vaccine recombinant K champ FARIAS Work Phone: [facility] 06-20-2024 ABRYSVO - Respirator y syncytial virus (RSV), vaccine, bivalent, protein subunit RSV prefusion F, diluent reconstituted, 0.5 mL, PF Skye FARIAS Work Phone: [facility] 06-20-2024 influenza, high dose seasonal, preservative-free Skye FARIAS Work Phone: [facility] 06-06-2023 Influenza, High-dose Seasonal, Quadrivalent, Preservative Free Kofi Bowers MD Work Phone: [facility] 06-06-2023 influenza virus vacc ine, unspecified formulation Kofi Bowers MD Work Phone: [facility] 05-20-2021 Influenza, injectabl e, Madin [place] Canine Kidney, preservative free, quadrivalent Kofi Bowers MD Work Phone: [facility] 09-15-2020 influenza, high dose seasonal, preservative-free Kofi Bowers MD Work Phone: [facility] 05-15-2020 Seasonal, trivalent, recombinant, injectable influenza vaccine, preservative free Kofi Bowers MD Work Phone: [facility] 06-15-2019 influenza, injectabl e, quadrivalent, preservative free Kofi Bowers MD Work Phone: [facility] 05-22-2018 influenza, injectabl e, quadrivalent, preservative free Kofi Bowers MD Work Phone: [facility] 08-02-2015 influenza, injectabl e, quadrivalent, preservative free Kofi Bowers MD Work Phone: [facility] 07-31-2015 tetanus and diphther ia toxoids, adsorbed, preservative free, for adult use (5 Lf of tetanus toxoid and 2 Lf of diphtheria toxoid) Kofi Bowers MD Work Phone: [facility] 05-15-2013 pneumococcal polysaccharide vaccine, 23 valent Kofi Bowers MD Work Phone: [facility] Payers Date Payer Category Payer Medicare [id number] 2023 Medicare (Managed Care) 1.2. [id number] 2022 Medicare [id number] 2017 Medicare [id number] 1959 Medicare [id number] 1959 Medicare [id number] 1959 Private Health Insurance [facility] [id number] 1959 Self-pay [id number] 1945 Unknown [id number] 2.16.840.1.134737.3.579.2.593 1945 Unknown [id number] 2.16.840.1.441643.3.579.2.593 1945 Unknown [id number] 2.16.840.1.435442.3.579.2.593 1945 Unknown [id number] 2.16.840.1.008551.3.579.2.593 1945 Unknown [id number] 2.16.840.1.919253.3.579.2.593 1945 Unknown [id number] 2.16.840.1.144303.3.579.2.593 1945 Unknown [id number] 2.16.840.1.479840.3.579.2.593 1945 Unknown [id number] 2.16.840.1.966305.3.579.2.593 1945 Unknown [id number] 2.16.840.1.622271.3.579.2.593 1945 Unknown [id number] 2.16.840.1.407221.3.579.2.593 1945 Unknown [id number] 2.16.840.1.602205.3.579.2.593 1945 Unknown [id number] 2.16.840.1.182359.3.579.2.593 1945 Unknown [id number] 2.16.840.1.893274.3.579.2.593 1945 Unknown [id number] 2.16.840.1.974148.3.579.2.593 1945 Unknown [id number] 2.16.840.1.156483.3.579.2.593 1945 Unknown [id number] 2.16.840.1.269288.3.579.2.593 1945 Unknown [id number] 2.16.840.1.125897.3.579.2.593 1945 Unknown [id number] 2.16.840.1.564145.3.579.2.593 1945 Unknown [id number] 2.16.840.1.822309.3.579.2.1286 1945 Unknown [id number] 2.16.840.1.064735.3.579.2.196 1945 Unknown [id number] 2.16.840.1.479023.3.579.2.196 1945 Unknown [id number] 2.16.840.1.373659.3.579.2.196 1945 Unknown [id number] 2.16.840.1.322975.3.579.2.196 1945 Unknown [id number] 2.16.840.1.082710.3.579.2.196 1945 Unknown [id number] 2.16.840.1.160322.3.579.2.196 1945 Unknown [id number] 2.16.840.1.410005.3.579.2.1259 1945 Unknown [id number] 2.16.840.1.252276.3.579.2.1259 1945 Unknown [id number] 2.16.840.1.532510.3.579.2.1259 1945 Unknown [id number] 2.16.840.1.148274.3.579.2.1259 1945 Unknown [id number] 2.16.840.1.661717.3.579.2.1259 1945 Unknown [id number] 2.16.840.1.029754.3.579.2.1259 Medicare Medicare [id number] Medicare Medicare [id number] Unknown Kaden BC/BS [id number] Unknown [id number] 2.16.840.1.584554.3.579.2.531 Social History Date Type Detail Facility Unknown if ever smoked [facility] Other Start: 06-15-2018 End: 01-14-2025 Tobacco smoking status NHIS Ex-smoker (finding) [facility] Start: 1945 Sex Assigned At Female F [facility] Start: 07-20-2023 End: 02-11-2025 Sex Assigned At [employer] Other End: 08-15-1999 History of tobacco use Current smoker [facility] End: 08-15-1999 History of tobacco use Cigarette Smoker [facility] Start: 03-11-2023 End: 01-14-2025 Tobacco use and exposure Smokeless tobacco non-user [facility] Start: 07-20-2023 End: 02-11-2025 Alcohol intake Ex-drinker (finding) [facility] Start: 07-20-2023 End: 02-11-2025 History of Social function [facility] Start: 12-17-2022 Alcohol Comment Caffeine: 1-2 cups per day; none soda/pop [facility] Start: 1945 Sex Assigned At Not on file [facility] Start: 06-29-2024 Sex Female (finding) [facility] Functional Status Date Assessment Result Facility 02-11-2025 Patient Health Quest ionnaire 2 item (PHQ-2) [Reported] [facility] 02-08-2025 Patient Health Quest ionnaire 2 item (PHQ-2) [Reported] [facility] Clinical Notes 11-03-2021 to 02-11-2025 Kofi Bowers MD - 02/11/2025 2:15 PM EDTKofi Bowers MD - 02/08/2025 11:15 AM DINORA Greene - 01/14/2025 1:00 PM EDTTelephone Encounter - Chelle Guallpa - 12/03/2024 1:46 PM EDT Note Date & Type Note Facility 02-11-2025 History of Presen t illness Narrative Images from the original note were not included. Subjective Patient ID: Konrad Mobley is a 79 y.o. female who presents for No chief complaint on file.. Konrad presents today for a 1 week follow up for nausea.She say that the Zofran has helped but she is taking it every 8 hours since she filled the RX on Tuesday. She would like a laxative to help the bowels move. Over the past 2 weeks, how often have you been bothered by any of the following problems? Little interest or pleasure in doing things: Not at all Feeling down, depressed, or hopeless: Not at all Patient Health Questionnaire-2 Score: 0 Current Outpatient Medications on File Prior to Visit Medication Sig Dispense Refill acarbose (Precose) 100 MG tablet TAKE 1 TABLET BY MOUTH IN THE MORNING AND 1 TABLET BEFORE BEDTIME 60 tablet 11 acetaminophen (Tylenol) 500 MG tablet every 6 [...] time each day at the same time. baclofen (Lioresal) 10 MG tablet TAKE 1/2 (ONE-HALF) TO 1 (ONE) TABLET BY MOUTH THREE TIMES DAILY NEEDED Calcium Citrate-Vitamin D (Mark-Citrate Plus Vitamin D) 250-2.5 MG-MCG tablet Take 1 tablet by mouth in the morning and 1 tablet in the evening. cholecalciferol (Vitamin D-3) 1.25 MG (69836 UT) tablet Vitamin D3 5000IU furosemide (Lasix) 40 MG tablet TAKE 1 TABLET BY MOUTH IN THE MORNING 30 tablet 11 insulin detemir (Levemir FlexTouch) 100 UNIT/ML pen INJECT 60 UNITS SUBCUTANEOUSLY EACH MORNING for 25 liothyronine (Cytomel) 25 MCG tablet 0.5 tablet on an empty stomach Orally two times daily. D.A.W. as [employer] or [employer] ONLY for 90 days 200 tablet 3 losartan-hydroCHLOROthiazide (Hyzaar) 100-25 MG tablet Take 1 tablet by mouth Daily 100 tablet 2 lovastatin (Mevacor) 20 MG tablet TAKE 1 TABLET BY MOUTH ONCE DAILY 100 tablet 3 metFORMIN (Glucophage) 1000 MG tablet TAKE 1 TABLET BY MOUTH IN THE MORNING AND 1 TABLET IN THE EVENING. TAKE WITH MEALS 60 tablet 11 omeprazole (PriLOSEC) [address] capsule TAKE 1 CAPSULE BY MOUTH IN THE MORNING 30 capsule 11 ondansetron (Zofran) 8 MG tablet Take 1 tablet (8 mg) by mouth every 8 (eight) hours if needed for nausea or vomiting for up to 7 days 20 tablet 0 potassium chloride CR (Klor-Con M20) 20 MEQ ER tablet 1 (one) time each day at the same time. QUEtiapine (SEROquel) 50 MG tablet TAKE 1 TABLET BY MOUTH ONCE DAILY 30 tablet 10 traMADol (Ultram) 50 MG tablet Take 1 tablet (50 mg) by mouth every 6 (six) hours if needed for severe pain 120 tablet 2 [DISCONTINUED] Trulicity 4.5 MG/0.5ML solution auto-injector INJECT CONTENTS OF 1 SYRINGE SUBCUTANEOUSLY ONCE WEEKLY 2 mL 10 No current facility-administered medications on file prior to visit. I have reviewed and reconciled the history and medication list with the patient today. Allergies Allergen Reactions Iodine Shortness of breath Levofloxacin Other Pregabalin Dizziness Shellfish Allergy Swelling Social History Tobacco Use Smoking status: Former Current packs/day: 0.00 Types: Cigarettes Quit date: 08/15/1999 Years since quittin.5 Smokeless tobacco: Never Vaping Use Vaping status: Never Used Substance Use Topics Alcohol use: Not Currently [...] mass index (BMI) of 40.0-44.9 in adult ([facility]) Bronchitis Bruise of breast Cataract Colon polyps COVID-19 03/2021 Deviated nasal septum Diabetes mellitus ([facility]) Encounter for diabetic foot exam ([facility]) Family history of colon cancer Brother Fracture Rt orbital fracture, LUCIUS elbow fracture - shipped to [facility] 07/31/15. GERD (gastroesophageal reflux disease) History of being hospitalized 07/2015 [facility] - Post fall -rt orbital fx, LUCIUS elbow fracture, facial contusion History of colon polyps Hyperlipidemia Hypertension Labyrinthitis Left cervical radiculopathy Low back pain Measles Morbid obesity ([facility]) Osteopenia Pneumonia Posterior vitreous detachment of both [...] EPIDURAL STEROID INJECTION 01/26/2022 NASAL SEPTUM SURGERY SPINAL CORD STIMULATOR IMPLANT 08/13/2024 TOE SURGERY 12/01/2018 Cut end of second toe off TONSILLECTOMY TOTAL ABDOMINAL HYSTERECTOMY W/ BILATERAL SALPINGOOPHORECTOMY 1992 TRIGGER FINGER RELEASE 02/18/2021 Lt thumb; Dr. Díaz Visit Vitals Smoking Status Former Review of Systems Objective Physical Exam Abdominal: General: Bowel sounds are decreased. There is no distension. Palpations: There is no mass. Tenderness: There is no abdominal tenderness. There is no guarding or rebound. Assessment/Plan Diagnoses and all orders for this visit: Nausea - Improving, Gut is now moving some. Add Miralax. See last OV note. Type 2 diabetes mellitus with hyperglycemia, without long-term current use of insulin (HCC) No follow-ups on file. documented in this encounter [facility] 02-08-2025 History of Presen t illness Narrative Images from the original note were not included. Subjective Patient ID: Konrad Mobley is a 79 y.o. female who presents for Nausea. Nausea / Vomiting Patient complains of nausea and vomiting. Onset of symptoms was 6 days ago. Vomiting has occurred 2 times last Tuesday and has not vomitied since then .Symptoms have been associated with belching. And occ. chills Patient denies fever, hematemesis, and melena. Symptoms have stabilized. Treatment to date has been pt had 3 zofran at home she took those they helped for a little bit per pt. Denies any diarrhea Over the past 2 weeks, how often have you been bothered by any of the following problems? Little interest or pleasure in doing things: Not at all Feeling down, depressed, or hopeless: Not at all Patient Health Questionnaire-2 Score: 0 Current Outpatient Medications on File Prior to Visit Medication Sig Dispense Refill acarbose (Precose) 100 MG tablet TAKE 1 TABLET BY MOUTH IN THE MORNING AND 1 TABLET BEFORE BEDTIME 60 tablet 11 acetaminophen (Tylenol) 500 MG tablet every 6 [...] time each day at the same time. baclofen (Lioresal) 10 MG tablet TAKE 1/2 (ONE-HALF) TO 1 (ONE) TABLET BY MOUTH THREE TIMES DAILY NEEDED Calcium Citrate-Vitamin D (Mark-Citrate Plus Vitamin D) 250-2.5 MG-MCG tablet Take 1 tablet by mouth in the morning and 1 tablet in the evening. cholecalciferol (Vitamin D-3) 1.25 MG (73794 UT) tablet Vitamin D3 5000IU furosemide (Lasix) 40 MG tablet TAKE 1 TABLET BY MOUTH IN THE MORNING 30 tablet 11 insulin detemir (Levemir FlexTouch) 100 UNIT/ML pen INJECT 60 UNITS SUBCUTANEOUSLY EACH MORNING for 25 liothyronine (Cytomel) 25 MCG tablet 0.5 tablet on an empty stomach Orally two times daily. D.A.W. as [employer] or [employer] ONLY for 90 days 200 tablet 3 losartan-hydroCHLOROthiazide (Hyzaar) 100-25 MG tablet Take 1 tablet by mouth Daily 100 tablet 2 lovastatin (Mevacor) 20 MG tablet TAKE 1 TABLET BY MOUTH ONCE DAILY 100 tablet 3 metFORMIN (Glucophage) 1000 MG tablet TAKE 1 TABLET BY MOUTH IN THE MORNING AND 1 TABLET IN THE EVENING. TAKE WITH MEALS 60 tablet 11 omeprazole (PriLOSEC) [address] capsule TAKE 1 CAPSULE BY MOUTH IN THE MORNING 30 capsule 11 potassium chloride CR (Klor-Con M20) 20 MEQ ER tablet 1 (one) time each day at the same time. QUEtiapine (SEROquel) 50 MG tablet TAKE 1 TABLET BY MOUTH ONCE DAILY 30 tablet 10 traMADol (Ultram) 50 MG tablet Take 1 tablet (50 mg) by mouth every 6 (six) hours if needed for severe pain 120 tablet 2 [DISCONTINUED] Trulicity 4.5 MG/0.5ML solution auto-injector INJECT CONTENTS OF 1 SYRINGE SUBCUTANEOUSLY ONCE WEEKLY 2 mL 10 No current facility-administered medications on file prior to visit. I have reviewed and reconciled the history and medication list with the patient today. Allergies Allergen Reactions Iodine Shortness of breath Levofloxacin Other Pregabalin Dizziness Shellfish Allergy Swelling Social History Tobacco Use Smoking status: Former Current packs/day: 0.00 Types: Cigarettes Quit date: 08/15/1999 Years since quittin.5 Smokeless tobacco: Never Vaping Use Vaping status: Never Used Substance Use Topics Alcohol use: Not Currently [...] mass index (BMI) of 40.0-44.9 in adult ([facility]) Bronchitis Bruise of breast Cataract Colon polyps COVID-19 03/2021 Deviated nasal septum Diabetes mellitus ([facility]) Encounter for diabetic foot exam ([facility]) Family history of colon cancer Brother Fracture Rt orbital fracture, LUCIUS elbow fracture - shipped to [facility] 07/31/15. GERD (gastroesophageal reflux disease) History of being hospitalized 07/2015 [facility] - Post fall -rt orbital fx, LUCIUS elbow fracture, facial contusion History of colon polyps Hyperlipidemia Hypertension Labyrinthitis Left cervical radiculopathy Low back pain Measles Morbid obesity ([facility]) Osteopenia Pneumonia Posterior vitreous detachment of both [...] EPIDURAL STEROID INJECTION 01/26/2022 NASAL SEPTUM SURGERY SPINAL CORD STIMULATOR IMPLANT 08/13/2024 TOE SURGERY 12/01/2018 Cut end of second toe off TONSILLECTOMY TOTAL ABDOMINAL HYSTERECTOMY W/ BILATERAL SALPINGOOPHORECTOMY 1992 TRIGGER FINGER RELEASE 02/18/2021 Lt thumb; Dr. Díaz Visit Vitals BP 148/66 Pulse 76 Temp 97.5 F Ht 5' Wt 177 lb SpO2 97% BMI 34.57 kg/m Smoking Status Former BSA 1.84 m Review of Systems Objective Physical Exam Abdominal: General: Bowel sounds are decreased. There is no distension. Palpations: There is no mass. Tenderness: There is no abdominal tenderness. There is no guarding or rebound. Assessment/Plan Diagnoses and all orders for this visit: Nausea - ondansetron (Zofran) 8 MG tablet; Take 1 tablet (8 mg) by mouth every 8 (eight) hours if needed for nausea or vomiting for up to 7 days - Suspect hypomotile gut d/t Trulicity. Stop that med. To ER if symptoms progress. RTC 3-4 days for recheck. Will need DM med adjustment. Follow up in about 4 days (around 02/12/2025). documented in this encounter [facility] 01-14-2025 History of Presen t illness Narrative Images from the original note were not included. Subjective Patient ID: Konrad Mobley is a 79 y.o. female who presents for back spasms. Konrad is present today for evaluation of back spasms. Admits this has been going on for about 1 week and it's in her lower back. She did have a stimulator implanted back in July and she is afraid it could be that causing her issues. She has appt with that surgeon that installed it next . She has been taking tylenol, tramdol, lidocaine patches and nothing seems to be helping. States a few weeks ago she was vacuuming and did have to pull quite a bit. Current Outpatient Medications on File Prior to Visit Medication Sig Dispense Refill baclofen (Lioresal) 10 MG tablet TAKE 1/2 (ONE-HALF) TO 1 (ONE) TABLET BY MOUTH THREE TIMES DAILY NEEDED acarbose (Precose) 100 MG tablet TAKE 1 TABLET BY MOUTH IN THE MORNING AND 1 TABLET BEFORE BEDTIME 60 tablet 11 acetaminophen (Tylenol) 500 MG tablet every 6 [...] the evening. cholecalciferol (Vitamin D-3) 1.25 MG (86295 UT) tablet Vitamin D3 5000IU furosemide (Lasix) 40 MG tablet TAKE 1 TABLET BY MOUTH IN THE MORNING 30 tablet 11 insulin detemir (Levemir FlexTouch) 100 UNIT/ML pen INJECT 60 UNITS SUBCUTANEOUSLY EACH MORNING for 25 liothyronine (Cytomel) 25 MCG tablet 0.5 tablet on an empty stomach Orally two times daily. D.A.W. as [employer] or [employer] ONLY for 90 days 200 tablet 3 losartan-hydroCHLOROthiazide (Hyzaar) 100-25 MG tablet Take 1 tablet by mouth Daily 100 tablet 2 lovastatin (Mevacor) 20 MG tablet TAKE 1 TABLET BY MOUTH ONCE DAILY 100 tablet 3 metFORMIN (Glucophage) 1000 MG tablet TAKE 1 TABLET BY MOUTH IN THE MORNING AND 1 TABLET IN THE EVENING. TAKE WITH MEALS 60 tablet 11 omeprazole (PriLOSEC) [address] capsule TAKE 1 CAPSULE BY MOUTH IN THE MORNING 30 capsule 11 potassium chloride CR (Klor-Con M20) 20 MEQ ER tablet 1 (one) time each day at the same time. QUEtiapine (SEROquel) 50 MG tablet TAKE 1 TABLET BY MOUTH ONCE DAILY 30 tablet 10 traMADol (Ultram) 50 MG tablet Take 1 tablet (50 mg) by mouth every 6 (six) hours if needed for severe pain 120 tablet 2 Trulicity 4.5 MG/0.5ML solution auto-injector INJECT CONTENTS OF 1 SYRINGE SUBCUTANEOUSLY ONCE WEEKLY 2 mL 10 [DISCONTINUED] eszopiclone (Lunesta) 3 MG tablet 1 (one) time each day at the same time [DISCONTINUED] orphenadrine (Norflex) 100 MG 12 hr tablet Take 1 tablet (100 mg) by mouth 2 (two) times a day as needed for muscle spasms for up to 10 days Do not crush, chew, or split. 20 tablet 0 [DISCONTINUED] pramipexole (Mirapex) 0.5 MG tablet 1 (one) time each day at the same time No current facility-administered medications on file prior to visit. I have reviewed and reconciled the history and medication list with the patient today. Allergies Allergen Reactions Iodine Shortness of breath Levofloxacin Other Pregabalin Dizziness Shellfish Allergy Swelling Social History Tobacco Use Smoking status: Former Current packs/day: 0.00 Types: Cigarettes Quit date: 08/15/1999 Years since quittin.4 Smokeless tobacco: Never Vaping Use Vaping status: Never Used Substance Use Topics Alcohol use: Not Currently [...] mass index (BMI) of 40.0-44.9 in adult ([facility]) Bronchitis Bruise of breast Cataract Colon polyps COVID-19 03/2021 Deviated nasal septum Diabetes mellitus ([facility]) Encounter for diabetic foot exam ([facility]) Family history of colon cancer Brother Fracture Rt orbital fracture, LUCIUS elbow fracture - shipped to [facility] 07/31/15. GERD (gastroesophageal reflux disease) History of being hospitalized 07/2015 [facility] - Post fall -rt orbital fx, LUCIUS elbow fracture, facial contusion History of colon polyps Hyperlipidemia (CMS/HCC) Hypertension (CMS/HCC) Labyrinthitis Left cervical radiculopathy Low back pain Measles Morbid obesity (CMS/[facility]) Osteopenia Pneumonia Posterior vitreous detachment of both [...] EPIDURAL STEROID INJECTION 01/26/2022 NASAL SEPTUM SURGERY SPINAL CORD STIMULATOR IMPLANT 08/13/2024 TOE SURGERY 12/01/2018 Cut end of second toe off TONSILLECTOMY TOTAL ABDOMINAL HYSTERECTOMY W/ BILATERAL SALPINGOOPHORECTOMY 1993 TRIGGER FINGER RELEASE 02/18/2021 Lt thumb; Dr. Díaz Visit Vitals BP 144/88 Pulse 78 Resp 16 Ht 5' Wt 180 lb SpO2 97% BMI 35.15 kg/m Smoking Status Former BSA 1.86 m Review of Systems Constitutional: Negative for chills, fatigue and fever. Respiratory: Negative for cough, shortness of breath and wheezing. Cardiovascular: Negative for chest pain, palpitations and leg swelling. Gastrointestinal: Negative for abdominal pain, constipation, diarrhea, nausea and vomiting. Musculoskeletal: Positive for back pain and myalgias. Skin: Negative for rash. Objective Physical Exam [...] breath sounds. No wheezing, rhonchi or rales. Musculoskeletal: Lumbar back: Spasms and tenderness present. No bony tenderness. Decreased range of motion. Negative right straight leg raise test and negative left straight leg raise test. Skin: General: Skin is warm and dry. Neurological: General: No focal deficit present. Mental Status: She is alert and oriented to person, place, and time. Gait: Gait abnormal (Quad cane for ambulation). Psychiatric: Mood and Affect: Mood normal. Behavior: Behavior normal. Office Visit on 01/14/2025 Component Date Value Ref Range Status Hemoglobin A1C 01/14/2025 6.4 Final Assessment/Plan Diagnoses and all orders for this visit: Lumbar paraspinal muscle spasm - orphenadrine (Norflex) injection 60 mg Provided pt with 60 mg of Orphenadrine IM today. She tolerated this well. Advised pt that it will likely cause drowsiness. She voices understanding. Continue Baclofen as needed before bed. Contact office if symptoms do not improve. Type 2 diabetes mellitus with hyperglycemia, without long-term current use of insulin ([facility]) - POCT Glycated hemoglobin, total Advised pt that her HgbA1c remains well controlled at 6.4. Will continue to monitor. Follow up in about 3 months (around 04/10/2025) for Medicare Wellness Visit. documented in this encounter [facility] 12-03-2024 Telephone encount er Note traMADol (Ultram) 50 MG tablet Ddm in [place] [facility] 12-03-2024 Miscellaneous Notes Formattin g of this note might be different from the original. traMADol (Ultram) 50 MG tablet Ddm in [place] documented in this encounter [facility] 10-03-2024 Telephone encount er Note OARRS reviewed, Rx sent into patient's pharmacy. [facility] 10-03-2024 Miscellaneous Notes Formattin g of this note might be different from the original. OARRS reviewed, Rx sent into patient's pharmacy. traMADol (Ultram) [address] [facility] [place] She is calling a day early because [facility] to fill it. documented in this encounter [facility] 10-03-2024 Telephone encount er Note traMADol (Ultram) [address] [facility] [place] She is calling a day early because [facility] days to fill it. [facility] 09-03-2024 Telephone encount er Note traMADol (Ultram) [facility] [place] [facility] 09-03-2024 Miscellaneous Notes Formattin g of this note might be different from the original. traMADol (Ultram) 50 MG tablet [facility] [place] documented in this encounter [facility] 08-28-2024 History of Presen t illness Narrative Images from the original note were not included. HPI Insomnia Additional comments: Pt states she had a bone stimulator placement surgery on 08/13/24 at [facility] and she is actually sleeping better at night. Last edited by Abigail Gonzalez LPN on 08/28/2024 1:13 PM. Subjective Patient ID: Konrad Mobley is a 79 y.o. female who presents for diabetes. Konrad is present today for follow up diabetes. [...] the evening. cholecalciferol (Vitamin D-3) 1.25 MG (69096 UT) tablet Vitamin D3 5000IU furosemide (Lasix) 40 MG tablet TAKE 1 TABLET (40 MG) BY MOUTH IN THE MORNING. 30 tablet 10 insulin detemir (Levemir FlexTouch) 100 UNIT/ML pen INJECT 60 UNITS SUBCUTANEOUSLY EACH MORNING for 25 liothyronine (Cytomel) 25 MCG tablet 0.5 tablet on an empty stomach Orally two times daily. D.A.W. as [employer] or [employer] ONLY for 90 days 200 [...] mass index (BMI) of 40.0-44.9 in adult ([facility]) Bronchitis Bruise of breast Cataract Colon polyps COVID-19 03/2021 Deviated nasal septum Diabetes mellitus (CMS/HCC) Encounter for diabetic foot exam (CMS/HCC) Family history of colon cancer Brother Fracture Rt orbital fracture, LUCIUS elbow fracture - shipped to [facility] 07/31/15. GERD (gastroesophageal reflux disease) History of being hospitalized 07/2015 [facility] - Post fall -rt orbital fx, LUCIUS [...] TONSILLECTOMY TOTAL ABDOMINAL HYSTERECTOMY W/ BILATERAL SALPINGOOPHORECTOMY 1993 TRIGGER FINGER RELEASE 02/18/2021 Lt thumb; Dr. [...] Medicare Wellness Visit. documented in this encounter [facility] 08-02-2024 Telephone encount er Note traMADol (Ultram) [address] [facility] [place] [facility] 08-02-2024 Miscellaneous Notes Formattin g of this note might be different from the original. traMADol (Ultram) [address] [facility] [place] documented in this encounter [facility] 07-02-2024 Telephone encount er Note traMADol (Ultram) 50 MG tablet liothyronine (Cytomel) 25 MCG tablet Ddm in [place] [facility] 07-02-2024 Miscellaneous Notes Formattin g of this note might be different from the original. traMADol (Ultram) 50 MG tablet liothyronine (Cytomel) 25 MCG tablet Ddm in [place] documented in this encounter [facility] 06-04-2024 Telephone encount er Note OARRS reviewed, Rx sent into patient's pharmacy. [facility] 06-04-2024 Miscellaneous Notes Formattin g of this note might be different from the original. OARRS reviewed, Rx sent into patient's pharmacy. traMADol (Ultram) 50 MG tablet Ddm in [place] documented in this encounter [facility] 06-04-2024 Telephone encount er Note traMADol (Ultram) 50 MG tablet Ddm in [place] [facility] 05-07-2024 Telephone encount er Note traMADol (Ultram) 50 MG tablet Ddm in [place] [facility] 05-07-2024 Miscellaneous Notes Formattin g of this note might be different from the original. traMADol (Ultram) 50 MG tablet Ddm in [place] documented in this encounter [facility] 04-09-2024 History of Presen t illness Narrative Images from the original note were not included. Subjective : Chief Complaint: Konrad Mobley is an 78 y.o. female here [...] same time. cholecalciferol (Vitamin D-3) 1.25 MG (83972 UT) tablet Vitamin D3 5000IU furosemide (Lasix) 40 MG tablet TAKE 1 TABLET (40 MG) BY MOUTH IN THE MORNING. 30 tablet 10 insulin detemir (Levemir FlexTouch) 100 UNIT/ML pen INJECT 60 UNITS SUBCUTANEOUSLY EACH MORNING for 25 liothyronine (Cytomel) 25 MCG tablet 0.5 tablet on an empty stomach Orally two times daily. D.A.W. as [employer] or [employer] ONLY for 90 days 200 [...] Do you have a medical power of litigation attorney associate?: Yes Who is your medical power of litigation attorney associate?: her son Objective : BP 115/65 Pulse [...] a living will and durable power of litigation attorney associate for healthcare. We discussed telling ortiz people [...] complication, without long-term current use of insulin ([facility]) - POCT glycosylated hemoglobin (Hb A1C) docked device - Microalbumin / creatinine, urine ratio; Future Morbid (severe) obesity due to excess calories ([facility]) Essential (primary) hypertension ([facility]) Body mass index (BMI) 35.0-35.9, adult Peripheral vascular disease, unspecified ([facility]) Iliopsoas bursitis of right hip - naproxen [...] April 09, 2024 documented in this encounter [facility] 04-04-2024 Telephone encount er Note OARRS reviewed, Rx sent into patient's pharmacy. [facility] 04-04-2024 Miscellaneous Notes Formattin g of this note might be different from the original. OARRS reviewed, Rx sent into patient's pharmacy. traMADol (Ultram) 50 MG tablet [facility]DM IN [place] documented in this encounter [facility] 04-04-2024 Telephone encount er Note traMADol (Ultram) 50 MG tablet DDM IN [place] [facility] 09-29-2023 Telephone encount er Note OARRS reviewed, Rx sent into patient's pharmacy. [facility] 09-29-2023 Miscellaneous Notes Formattin g of this note might be different from the original. OARRS reviewed, Rx sent into patient's pharmacy. documented in this encounter [facility] 06-27-2023 Evaluation note Encounter Date Diagnosis Assessment Notes Jun, Obstructive sleep apnea (ICD-10 - G47.33) Jun, Chronic insomnia (ICD-10 - F51.04) [facility] Other 05-22-2023 NotePatient is here today to discuss medication Review of Systems Musculoskeletal: Positive for arthritis and back pain. All other systems reviewed and are negative.[facility] 01-03-2023 NoteCardiovascular Medicine [facility] SUBJECTIVE Chief Complaint Patient presents with [...] BID. She will be driving down to [place] this weekend for her high school reunion. 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 insulin ([facility]) Lipoprotein deficiency disorder History of fall History of colonic polyps GERD (gastroesophageal reflux disease) Family history of malignant neoplasm of gastrointestinal tract Failed back syndrome Ex-smoker ESS (euthyroid sick syndrome) Disability of walking Diabetic retinopathy associated with controlled type 2 diabetes mellitus ([facility]/HCC) Diabetic polyneuropathy associated with type 2 diabetes mellitus ([facility]) Type 2 diabetes mellitus with hyperglycemia ([facility]) Decreased estrogen level Continuous positive [...] tablet, Take 1 (more content not included)... [facility]03-02-2023 NoteCONSULTATION CONSULTATION DATE: 10/14/2022 HISTORY: This [...] unless otherwise indicated. Patient is in agreement.[id number] NoteCardiology Clinic Note Subjective Konrad Mobley is [...] BUN 13, creatinine 0.84, (more content not included)...[facility]02-14-2023 NotePatient here for 1 mo follow up hypertension and medication changes. She was started on hydrochlorothiazide and losartan was increased back up to 100mg daily. She had BMP on 09/07. Review of Systems Musculoskeletal: Positive for back pain. All other systems reviewed and are negative.[facility] 08-31-2022 NotebloUnUniversity Hospitals [facility]lyria Medical [facility]01-17-2023 NotePatient here for 3 mo [...] Systems All other systems reviewed and are negative.[facility] 08-31-2022 NoteCardiology Clinic Note Subjective Konrad [...] 119, BUN 13, creatinine (more content not included)...[facility] 07-14-2022 NoteCONSULTATION CONSULTATION DATE: 07/14/2022 HISTORY [...] in three months' time unless otherwise indicated.[facility] [id number] Evaluation note* Encounter Date Diagnosis Assessment Notes [...] potential side effects were all discussed today [facility] Other 10-18-2022 NoteContinue to wear cpapUnUniversity Hospitals Elyria Medical Center10-18-2022 NoteContinue amlodipine 10 mg daily- she recently ran out of 10 mg and this morning took 5 mg tablet she had from previous script. Continue coreg 25 mg bid, lasix 40 mg daily, losartan 50 mg daily and hydralazine 50 mg po bid.[facility]10-18-2022 Note Subjective Konrad Mobley is a [...] Lab Review: Assessment/Plan There were no encounter diagnoses.[facility]10-18-2022 NoteHPI: Konrad Mobley is a 77 [...] 3 months with repeat BMP for renal functionUnUniversity Hospitals Ely[facility]09-26-2022 NoteI spoke with patient and informed her of medication changes per Veronica Gillespie CNP. RX sent to [facility] and BMP faxed to [facility]. Patient verbalized understanding. [facility]09-14-2022 NoteF/U with PCP for further managementUnUniversity Hospitals [facility]09-14-2022 NoteHypertension remains uncontrolled, will add [...] BUN 15, CR 0.85 normal K+ 4.8 normalAshtabula General Hospital09-14-2022 NoteAdded in error and don't know how to get rid of itUnUniversity Hospitals [facility]08-25-2022 NoteCONSULTATION CONSULTATION DATE: 04/08/2022 HISTORY [...] in the office post procedure in May.[facility] [id number] NoteCONSULTATION CONSULTATION DATE: 02/10/2022 HISTORY OF PRESENT [...] plan of care and all questions answered. [facility] Signed and Approved by: BETZAIDA ZIMMER . 02/11/2022 13:38:00[facility]03-22-2022 NoteCONSULTATION PAIN MANAGEMENT CONSULTATION CHIEF [...] had three nerves released by Dr. Branch, heel finisher, in 2002. She states the pain has [...] would like to proceed. CC: Dr. Bowers [facility] Signed and Approved by: DR SERENITY GARCIA . 11/17/2021 11:24:00[facility] HospitalEvaluation noteNort Mission [employer] Other Evaluation noteNo assessment information available [facility] Work Phone: Evaluation note* Diagnosis Failed back syndrome Other unspecified back disorder documented in this encounter [facility] HealthcareEvaluation note* Diagnosis Failed back syndrome Other unspecified back disorder documented in this encounter [facility]* Diagnosis Onset Date Resolution Status Admit Date Chronic insomnia acute June 29, 2024 11:30am MANOLO (obstructive sleep apnea) acute June 29, 2024 11:30am [facility] Work Phone: Evaluation note* Diagnosis Failed back syndrome Other unspecified back disorder Hypothyroidism, unspecified type (CMS/HCC) documented in this encounter [facility] HealthcareEvaluation note* Diagnosis Failed back syndrome Other unspecified back disorder documented in this encounter [facility] HealthcareEvaluation note* Diagnosis Routine general medical examination [...] of right hip documented [facility] encounter [facility]* Diagnosis Failed back syndrome Other unspecified back disorder documented [facility] encounter [facility]* Diagnosis 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)- Primary Benign essential hypertension (CMS/HCC) Essential hypertension, benign Morbid (severe) obesity due to excess calories (CMS/HCC) Body mass index (BMI) 35.0-35.9, adult documented in this encounter [facility] HealthcareEvaluation note* Diagnosis Failed back syndrome Other unspecified back disorder documented in this encounter [facility] HealthcareEvaluation note* Diagnosis Failed back syndrome Other unspecified back disorder documented in this encounter [facility] HealthcareEvaluation note* Diagnosis Lumbar paraspinal muscle spasm- Primary Other symptoms referable to back Type 2 diabetes mellitus with hyperglycemia, without long-term current use of insulin ([facility]) documented in this encounter [facility] HealthcareEvaluation note* Diagnosis Nausea- Primary Nausea alone documented in this encounter [facility] HealthcareEvaluation note* Diagnosis Nausea- Primary Nausea alone Type 2 diabetes mellitus with hyperglycemia, without long-term current use of insulin ([facility]) [facility] - [facility] Other History general Narrative - Reported* Type [...] Heart Attack 2011 Hospitalization History see above [employer] Other Chief Complaint and Reason for Visit [...] Active Abdullahi Acosta MD Attending Provider Active Construction Stonemason Relationship Specialty Start Date End Date Kofi Bowers MD [address] [place] [address] PCP - General Internal Medicine 12/22/22 Construction Stonemason Relationship Specialty Start Date End Date Kofi Bowers MD [address] [place] [address] PCP - General Internal Medicine 12/22/22 Team Status: Inactive Member Role Status Dates Kofi Bowers II MD Primary Care Provider Active Start: June 29, 2024 End: June 29, 2024 Myra Sales APRN ACNP- Attending Provider Active Start: June 29, 2024 End: June 29, 2024 Construction Stonemason Relationship Specialty Start Date End Date Kofi Bowers MD [address] [place] [address] PCP - General Internal Medicine 12/22/22 Construction Stonemason Relationship Specialty Start Date End Date Kofi Bowers MD [address] [place] [address] PCP - General Internal Medicine 12/22/22 Construction Stonemason Relationship Specialty Start Date End Date Kofi Bowers MD [address] [place] [address] PCP - General Internal Medicine 12/22/22 Construction Stonemason Relationship Specialty Start Date End Date Kofi Bowers MD [address] [place] [address] PCP - General Internal Medicine 12/22/22 Construction Stonemason Relationship Specialty Start Date End Date Kofi Bowers MD [address] [place] [address] PCP - General Internal Medicine 12/22/22 Construction Stonemason Relationship Specialty Start Date End Date Kofi Bowers MD [address] [place] [address] PCP - General Internal Medicine 12/22/22 Construction Stonemason Relationship Specialty Start Date End Date Kofi Bowers MD [address] [place] [address] PCP - General Internal Medicine 12/22/22 Construction Stonemason Relationship Specialty Start Date End Date Kofi Bowers MD [address] [place] [address] PCP - General Internal Medicine 12/22/22 Construction Stonemason Relationship Specialty Start Date End Date Kofi Bowers MD [address] [place] [address] PCP - General Internal Medicine 12/22/22 Construction Stonemason Relationship Specialty Start Date End Date Kofi Bowers MD [address] [place] [address] PCP - General Internal Medicine 12/22/22 Construction Stonemason Relationship Specialty Start Date End Date Kofi Bowers MD [address] [place] [address] PCP - General Internal Medicine 12/22/22 Construction Stonemason Relationship Specialty Start Date End Date Kofi Bowers MD [address] [place] [address] PCP - General Internal Medicine 12/22/22 Goals [...] bone stimulator placement surgery on 08/13/24 at [facility] and she is actually sleeping better at night. Reason Onset Date Comments Med Refill 10/03/2024 Reason Onset Date Comments Med Refill 12/03/2024 Reason Comments Nausea INFORMATION SOURCE (unrecogn ized section and content) DATE CREATED AUTHOR 10/19/2022 [facility] DATE CREATED AUTHOR AUTHOR'S ORGANIZ ATION 01/27/2023 [facility] DATE CREATED AUTHOR AUTHOR'S ORGANIZ ATION 09/23/2023 [facility] DATE CREATED AUTHOR AUTHOR'S ORGANIZ ATION 03/20/2024 [facility] DATE CREATED AUTHOR AUTHOR'S ORGANIZ ATION 03/04/2025 [facility] DATE CREATED AUTHOR AUTHOR'S ORGANIZ ATION 03/08/2025 [facility] FOR RECORDS PERTAINING TO PATIENTS WHO [...] BE BASED ON THE PRIMARY CLINICAL RECORDS. [employer] provides no warranty or guarantee of the accuracy or completeness of information in this document.
--- NOTE | 2025-03-14 11:11 | PM.CN ---
Consult Note: HPI Data of Consult Patient: known to practice within the last 3 years Consult date: 03/14/25 Requesting Physician: Zoila Kenyon NP Primary Care Provider: BELEN ZALDIVAR Consult Narrative Reason for consult: f/u Narrative: Cece Mobley a pleasant 79 year old female with chronic low back pain post thoracic/lumbar fusion and DPN presents for evaluation. Has noticed increasing low back pain/spasms and radicular pain since last visit. no falls or injury. has been utilizing her SCS with mild relief, has not reached a rep to discuss program settings. Pain 8/10 achy throbbing. Pain increasing to 10/10 with standing, walking, twisting, pushing, pulling, housework, lifting, bending, activity. Mild improvement with sitting lying and heat. utilizing baclofen, zonegran, tramadol and tylenol with benefit. recent left SIJ injection providing moderate ongoing relief. cc:: CC: Zoila Kenyon NP Review of Systems ROS Status of ROS 10 or more systems reviewed and unremarkable except as noted in history and below [facility] Medical History Facial trauma (~2017) ?S09.93XA - Unspecified injury of face, initial encounter (ICD-10) Chronic insomnia ?F51.04 - Psychophysiologic insomnia (ICD-10) Low iron ?E61.1 - Iron deficiency (ICD-10) Pneumonia ?J18.9 - Pneumonia, unspecified organism (ICD-10) Restless leg ?G25.81 - Restless legs syndrome (ICD-10) GERD (gastroesophageal reflux disease) ?K21.9 - Gastro-esophageal reflux disease without esophagitis (ICD-10) Activity intolerance ?R68.89 - Other general symptoms and signs (ICD-10) Extremity edema ?R60.0 - Localized edema (ICD-10) Diabetes ?E11.9 - Type 2 diabetes mellitus without complications (ICD-10) Hypothyroidism ?E03.9 - Hypothyroidism, unspecified (ICD-10) Low back pain ?M54.50 - Low back pain, unspecified (ICD-10) Osteoarthritis ?M19.90 - Unspecified osteoarthritis, unspecified site (ICD-10) Diabetes 1.5, managed as type 2 ?E13.9 - Other specified diabetes mellitus without complications (ICD-10) Sleep apnea ?G47.30 - Sleep apnea, unspecified (ICD-10) High cholesterol ?E78.00 - Pure hypercholesterolemia, unspecified (ICD-10) Hypertension ?I10 - Essential (primary) hypertension (ICD-10) Surgical History History of facial surgery (~2017) ?Z98.890 - Other specified postprocedural states (ICD-10) History of colonoscopy ?Z98.890 - Other specified postprocedural states (ICD-10) History of radiofrequency ablation (RFA) of nerve of lumbar spine ?Z98.890 - Other specified postprocedural states (ICD-10) S/P epidural steroid injection ?Z92.241 - Personal history of systemic steroid therapy (ICD-10) Previous back surgery ?Z98.890 - Other specified postprocedural states (ICD-10) History of cholecystectomy ?Z90.49 - Acquired absence of other specified parts of digestive tract (ICD-10) Hx of tonsillectomy ?Z90.89 - Acquired absence of other organs (ICD-10) History of appendectomy ?Z90.49 - Acquired absence of other specified parts of digestive tract (ICD-10) Family History Other Cancer Family history of coronary artery disease Family history of diabetes mellitus Family history of heart disease Family history of hypertension Social History Within the past year, how often did you have a drink containing alcohol: never Score interpretation: A score less than 3 is consistent with normal alcohol consumption. Smoking status: Never smoker Non-prescribed substance use: denies use Highest level of school completed/degree received: Associate degree: occupational, technical, vocational program Meds Home Medications and Allergies Home Medications ?Medication ?Instructions ?Recorded ?Confirmed ?Type acarbose 100 mg tablet 100 mg PO BID 10/19/23 02/25/25 History amlodipine 10 mg tablet 10 mg PO DAILY 10/19/23 02/25/25 History aspirin 81 mg capsule 81 mg PO DAILY 10/19/23 02/25/25 History carvedilol 25 mg tablet 25 mg PO BID 10/19/23 02/25/25 History furosemide 40 mg tablet 40 mg PO DAILY 10/19/23 02/25/25 History insulin detemir U-100 100 unit/mL 60 unit subcut DAILY 10/19/23 02/25/25 History (3 mL) subcutaneous pen (Levemir FlexPen) liothyronine 25 mcg tablet 12.5 mcg PO BID 10/19/23 02/25/25 History loratadine 10 mg tablet 10 mg PO DAILY PRN allergic 10/19/23 02/25/25 History symptoms losartan 100 1 tab PO DAILY 10/19/23 02/25/25 History mg-hydrochlorothiazide 25 mg tablet lovastatin 20 mg tablet 20 mg PO DAILY 10/19/23 02/25/25 History omeprazole 20 mg capsule,delayed 20 mg PO DAILY 10/19/23 02/25/25 History release potassium chloride 20 mEq 20 meq PO DAILY 10/19/23 02/25/25 History tablet,extended release quetiapine 50 mg tablet 50 mg PO DAILY 10/19/23 02/25/25 History tramadol 50 mg tablet 100 mg PO Q12H PRN pain 10/19/23 02/25/25 History acetaminophen 500 mg capsule 1,000 mg PO BID 07/18/24 02/25/25 History ascorbic acid (vitamin C) 500 mg 500 mg PO BID 07/18/24 02/25/25 History capsule calcium 600 mg (as 1 tab PO DAILY 07/18/24 02/25/25 History carbonate)-vitamin D3 5 mcg (200 unit) tablet (Calcium 600 + D(3)) cholecalciferol (vitamin D3) 125 5,000 unit PO DAILY 07/18/24 02/25/25 History mcg (5,000 unit) capsule vitamin B complex (B-Complex 1 tab PO DAILY 07/18/24 02/25/25 History tablet) vitamin E 268 mg (400 unit) capsule 268 mg PO BID 07/18/24 02/25/25 History baclofen 10 mg tablet 10 mg PO BID PRN muscle spasm 10/29/24 02/25/25 History zonisamide 50 mg capsule mg PO 02/19/25 History Allergies Allergy/AdvReac Type Severity Reaction Status Date / Time iodine Allergy Severe Anaphylaxis Verified 02/25/25 10:28 levofloxacin (From Levaquin) Allergy Rash Verified 02/25/25 10:28 Exam Constitutional Documenting provider has reviewed patient's vital signs: yes Common normals: no apparent distress, oriented x3, healthy appearing, alert and well nourished General appearance: cooperative HENMT Common normals: normocephalic, hearing grossly normal bilaterally and moist oral mucous membranes Head and scalp: normocephalic Eye Common normals: PERRL Pupil: PERRL Neck & C-Spine Common normals: full ROM General: normal visual inspection Chest Common normals: inspection of chest normal Respiratory Common normals: normal respiratory effort, no retractions and no use of accessory muscles Back & Pelvis Thoracic spine/upper back: no paraspinal muscle spasm Lumbar spine/lower back: ROM limited, lumbar spinal tenderness, paraspinal muscle tenderness and straight leg raise negative bilaterally; no paraspinal muscle spasm Sacroiliac joints: SI joints normal Other: sensation intact BLE strength 5/5 in BLE left sij negative cynthia(patricks), gaenslens, thigh thrust, compression test Neuro Common normals: oriented x3 Sensorium/orientation: alert Psych Common normals: mental status grossly normal, thought process normal, cooperative, affect normal, speech normal and activity/motor behavior normal Speech: normal speech Thought process: normal thought process Results Additional Findings Additional findings: If on a controlled substance or opioids, I have checked an [place]AR[place] report on this patient and there are no aberrancies noted in the prescribing history.??If on a controlled substance or opioid a drug screen was completed and reviewed within the last year, and if there has not been a drug screen completed we ordered one today to monitor higher risk, state monitored pain medication use. As part of providing excellent, safe, comprehensive care, the following was completed at our patient's visit: 1. A medication reconciliation and review to ensure accurate knowledge of current/active medications, including asking our patients to inform us about any gkuy-vps-uiqrcdq medications or herbal remedies/nutritional supplements/alternative remedies. 2. A review to specifically ensure our patients have had annual screening for screening for depression, screening for tobacco use, and screening for unhealthy alcohol use. For concerning screenings had a discussion with the patient, provided patient education, and recommended follow-up with primary care provider when appropriate. If patient noted with a risk of falling, they received education on strength, gait, and balance training to prevent future risk of falling. Portions of this note may have been carried over from the previous visit and updated as appropriate. Please note this office utilizes paper charting in addition to the electronic medical record. A list of current medications, vitals, and PMH is available there as the clinical staff outside of myself do not have access to [employer] charting during the clinic day operations. As part of providing quality comprehensive care the current medications, vitals, and PMH were reviewed in the paper chart. Assessment and Plan Assessment and Plan (1) Sacroiliitis: Assessment and Plan: The patient has had over 3 months of moderate to severe low back and left SIJ pain with functional impairment and inadequate response to conservative care including NSAIDS (unless there are contraindication such as concurrent blood thinners), multiple oral or topical pain medications, and home exercise program/physical therapy.? Patient has completed >6 weeks of guided home exercise program and/or formal physical therapy program without relief of their symptoms.? (2) Lumbar radiculopathy: (3) Encounter for fitting and adjustment of spinal cord stimulator: (4) Failed back syndrome: (5) History of thoracic spinal fusion: (6) History of lumbar fusion: (7) Painful diabetic neuropathy: Plan we will arrange an appointment with [employer] (ABAM) scs rep to adjust settings continue current medications, declining adjustment in baclofen or zonegran continue HEP as tolerated f/u 3 months for medication management
== END 2025-03-14 10:48 | disposition home or self-care (01) ==
LOC: PM 10:48
PROVIDERS: PCP Internal Medicine; Visit Provider Nurse Practitioner
DX: M54.16 Radiculopathy, lumbar region (principal); Z45.42 Encounter for adjustment and management of neurostimulator; M96.1 Postlaminectomy syndrome, not elsewhere classified; M43.24 Fusion of spine, thoracic region; M43.26 Fusion of spine, lumbar region; E11.40 Type 2 diabetes mellitus with diabetic neuropathy, unspecified
CPT/HCPCS: G0463

== ENCOUNTER 2025-06-13 10:56 | Outpatient (OUT) | payer MEDICARE, SELFPAY ==
--- OUTSIDE RECORDS SUMMARY | 2025-06-06 09:00 | XMS_ITS | Encounter Summary ---
Author Organization [facility] Address [address] [place] [address] Care Team Providers Care Kiln Operator Name Role Phone Kofi Bowers MD Primary Care Provider [phone] Reason for Visit * ReasonCommentsBack Pain Encounter Details DateTypeDepartmentCare Team (Latest Contact Info)Mwquuapzgiu56/23/2025 9:00 AM EDTOffice Visit [facility] [place] [facility] [address] [place] [address] Kofi Bowers MD [address] [place], [place] [id number] Acute myofascial strain of lumbar region, initial encounter (Primary Dx) Social History Tobacco UseTypesPacks/DayYears UsedDateSmoking Tobacco: FormerCigarettesQuit: 08/15/1999Smokeless Tobacco: NeverAlcohol UseStandard Drinks/WeekCommentsNot Currently0 (1 standard drink = 0.6 oz pure alcohol)Caffeine: 1-2 cups per day; none soda/popPHQ-2AnswerDate RecordedPatient Health Questionnaire-2 Score0 06/06/2025CommentsUnknownSex and Gender InformationValueDate RecordedSex Assigned at BirthNot on fileLegal TsaYhzdjv94/15/2023 6:38 PM EDTGender Identity Not on fileSexual OrientationNot on filedocumented as of this encounter Last Filed Vital Signs Vital SignReadingTime TakenCommentsBlood Dwewidfl325/8210 8:53 AM EDT Sdlqs7500 8:53 AM EDTTemperature--Respiratory Rate--Oxygen Qkikdwzsja05% 06/06/2025 8:53 AM EDTInhaled Oxygen Concentration--Snapby19.2 kg (190 lb) 06/06/2025 8:53 AM UUVMxnfvk031.4 cm (5')06/06/2025 8:53 AM EDTBody Mass Index 37.111 8:53 AM EDTdocumented in this encounter Functional Status * Over the past 2 weeks, how often have you been bothered by any of the following problems?QuestionAnswerDate of AssessmentAuthorLittle interest or pleasure in doing thingsNot at all06/06/2025 8:54 AM Kellie Reynoso LPN Feeling down, depressed, or hopelessNot at all06/06/2025 8:54 AM Kellie Reynoso LPNPatient Health Questionnaire-2 Ecksq981 8:54 AM Kellie Reynoso LPN documented as of this encounter Progress Notes * Kofi Bowers MD - 06/06/2025 9:00 AM EDT Images from the original note were not included. Subjective Patient ID: Cece Mobley is a 80 y.o. female who presents for Back Pain. Back Pain Patient presents for evaluation of low back problems. Symptoms have been present for 10 days and include pain in lower back. Initial inciting event: reaching above head to lift something. Alleviatingfactors identifiable by the patient are medication tramadol and baclofe Back Pain Over the past 2 weeks, how often [...] 500 MG tablet every 6 (six) hours. Alcohol Swabs (Alcohol Prep) 70 % pads 1 Pad Daily 100 each 3 Allergy Relief 10 MG tablet TAKE 1 [...] TABLET BY MOUTH THREE TIMES DAILY NEEDED Blood Glucose Monitoring Suppl (Blood Glucose Monitor System) w/Device kit 1 each Daily 1 kit 0 Calcium Citrate-Vitamin D (Vishnu-Citrate Plus Vitamin D) 250-2.5 MG-MCG tablet Take 1 tablet by mouthin the morning and 1 tablet in the evening. cholecalciferol (Vitamin D-3) 1.25 MG (69687 UT) tablet Vitamin D3 5000IU empagliflozin (Jardiance) 10 MG Take 1 tablet (10 mg) by mouth Daily 30 tablet 11 furosemide (Lasix) 40 MG tablet TAKE 1 TABLET BY MOUTH IN THE MORNING 30 tablet 11 Glucose Blood (Blood Glucose Test) strip 1 each by In Vitro route Daily 100 strip 3 Lancets 30G misc 1 each Daily 100 each 3 Lantus SoloStar 100 UNIT/ML pen INJECT 60 UNITS SUBCUTANEOUSLY (UNDER THE SKIN) IN THE MORNING 15 mL 5 liothyronine (Cytomel) 25 MCG tablet 0.5 tablet on an empty stomach Orally two times daily. D.A.W. as Sigma or [employer]ado Brand ONLY for 90 days 200 tablet 3 losartan-hydroCHLOROthiazide (Hyzaar) 100-25 MG tablet Take 1 tablet by mouth Daily 100 tablet 2 lovastatin (Mevacor) 20 MG tablet TAKE 1 TABLET BY MOUTH ONCE DAILY 100 tablet 3 omeprazole (PriLOSEC) [address] capsule TAKE 1 CAPSULE BY MOUTH IN THE MORNING 30 capsule 11 pen needle 32G x 4 mm misc Inject 1 each under the skin Daily 100 each 3 potassium chloride CR (Klor-Con M20) 20 MEQ ER tablet 1 (one) time each day at the same time. QUEtiapine (SEROquel) 50 MG tablet TAKE 1 TABLET BY MOUTH ONCE DAILY 30 tablet 10 traMADol (Ultram) 50 MG tablet Take 1 tablet (50 mg) by mouth every 6 (six) hours if needed for severe pain 120 tablet 1 zonisamide (Zonegran) 50 MG capsule Take 50 mg by mouth at bedtime No current facility-administered medications on file prior to visit. I have reviewed and reconciled the history and medication list with the patient today. Allergies Allergen Reactions Iodine Shortness of breath Levofloxacin Other Pregabalin Dizziness Shellfish Allergy Swelling Social History Tobacco Use Smoking status: Former Current packs/day: 0.00 Types: Cigarettes Quit date: 08/15/1999 Years since quittin.8 Smokeless tobacco: Never Vaping Use Vaping status: [...] mass index (BMI) of 40.0-44.9 in adult ([facility]) Bronchitis Bruise of breast Cataract Colon polyps COVID-19 03/2021 Deviated nasal septum Diabetes mellitus ([facility]) Encounter for diabetic foot exam ([facility]) Family history of colon cancer Brother Fracture Rt orbital fracture, LUCIUS elbow fracture - shipped to [facility] 07/31/15. GERD (gastroesophageal reflux disease) History of being hospitalized 07/2015 [facility] - Post fall -rt orbital fx, LUCIUS elbow fracture, facial contusion History of colon polyps Hyperlipidemia Hypertension Labyrinthitis Left cervical radiculopathy Low back pain Measles Morbid obesity ([facility]) Osteopenia Pneumonia Posterior vitreous detachment [...] Lt thumb; Dr. Díaz Visit Vitals BP 138/82 Pulse 78 Ht 5' Wt 190 lb SpO2 96% BMI 37.11 kg/m?? Smoking Status Former BSA 1.91 m?? Review of Systems Musculoskeletal: Positive for back pain. Objective Physical Exam Musculoskeletal: Lumbar back: Spasms and tenderness present. No deformity. Normal range of motion. Negative right straight leg raise test and negative left straight leg raise test. No scoliosis. Neurological: Motor: No weakness. Gait: Gait normal. Deep Tendon Reflexes: Reflexes normal. Assessment/Plan Diagnoses and all orders for this visit: Acute myofascial strain of lumbar region, initial encounter - methylPREDNISolone (Medrol Dospak) 4 MG tablets; Follow schedule on package instructions - tiZANidine (Zanaflex) 4 MG tablet; Take 1 tablet (4 mg) by mouth every 8 (eight) hours if needed for muscle spasms Other orders - Follow Up In Family Medicine; Future Follow up with Dr. Kofi Bowers or their team in about 2 weeks (around 06/20/2025), if symptoms worsen or fail to improve. documented in this encounter Miscellaneous Notes * Addendum Note - Kellie Horn LPN - 06/06/2025 9:00 AM EDTAddended by: KELLIE HORN on: 06/06/2025 10:28 AM Modules accepted: Orders documented in this encounter Plan of Treatment DateTypeDepartmentCare Team (Latest Contact Info)Smzqsogcixv84/03/2025 11:30 AM ESTOffice Visit [facility] [place] [facility] [address] [facility] [address] [place] [address] Kofi Bowers MD [address] [facility] [address] [place] [address] documented as of this encounter Visit Diagnoses Diagnosis Acute myofascial strain of lumbar region, initial encounter- Primary documented in this encounter Administered Medications Medication OrderMAR ActionAction DateDoseRateSite triamcinolone acetonide (Kenalog-40) injection 40 mg 40 mg, Intramuscular, Once, On Bri 06/06/25 at 1030, For 1 dose Indications:Acute myofascial strain of lumbar region, initial encounterGiven 06/06/2025 10:27 AM EDT40 mgLeft Ventroglutealdocumented in this encounter Additional Health Concerns AssessmentNoted TimePHQ-9 Depression Total Score: 10:00 AM EDT documented as of this encounter Care Teams Team MemberRelationshipSpecialtyStart DateEnd Date Kofi Bowers MD [address] [facility] [address] [place] [address] PCP - GeneralInternal Medicine12/22/22documented as of this encounter
--- OUTSIDE RECORDS SUMMARY | 2025-06-13 10:59 | XMS_ITS | Clinical Summary ---
Author Organization [facility] Address [address] [place] [address] Care Team Providers Care Radio Communication Coordinator Name Role Phone Kofi Bowers MD Primary Care Provider [phone] Allergies Active AllergyReactionsCriticalityNoted DateCommentsIodineAnaphylaxisHigh 04/08/20227374Ngydxvwkvuxc42/25/2022regabalinDizziness,Pdlkcln6002/24/2021hellfish Containing NabxqdwlOfynpfgg49/12/2014 Medications MedicationSigDispense QuantityRefillsLast FilledStart DateEnd DateStatus acarbose (Precose) 100 mg tablet Take 1 tablet by mouth in the morning and at bedtime.Active aspirin 81 mg EC tablet Take 1 tablet every day by oral route.Active baclofen (Lioresal) 10 mg tablet Take 1 tablet by mouth at bedtime.Active carvedilol (Coreg) 25 mg tablet Take 1 tablet by mouth in the morning and at bedtime.02/05/2022ctive dulaglutide (Trulicity) 4.5 mg/0.5 mL pen injector INJECT 1 PEN SUBCUTANEOUSLY ONCE WEEKLYActive furosemide (Lasix) 40 mg tablet Take 1 tablet by mouth in the morning.Active insulin detemir (Levemir FlexTouch U-100 Insuln) 100 unit/mL (3 mL) pen INJECT 60 UNITS SUBCUTANEOUSLY IN THE MORNINGActive liothyronine (Cytomel) 25 mcg tablet TAKE 1/2 (ONE-HALF) OF A TABLET BY MOUTH TWICE DAILY ON AN EMPTY STOMACHActive lovastatin (Mevacor) 20 mg tablet Take 1 tablet by mouth at bedtime.Active metFORMIN (Glucophage) 1,000 mg tablet Take 1 tablet by mouth with breakfast and with evening meal.Active naproxen (Naprosyn) 500 mg tablet Take 1 tablet by mouth if needed in the morning and at bedtime.Active omeprazole (PriLOSEC) [address] capsule Take 1 capsule by mouth in the morning.Active potassium chloride CR (Klor-Con M20) 20 mEq ER tablet Take 1 tablet by mouth in the morning.Active QUEtiapine (SEROquel) 50 mg tablet Take 1 tablet by mouth in the morning.Active traMADol (Ultram) 50 mg tablet Take 2 tablets by mouth in the morning and at bedtime.Active hydrALAZINE (Apresoline) 50 mg tablet Indications:Essential hypertensionTake 1 tablet (50 mg) by mouth in the morning and at bedtime. 60 tablet 11005/10/2022ctive amLODIPine (Norvasc) 10 mg tablet Indications:Essential hypertensionTake 1 tablet (10 mg) by mouth in the morning. 90 tablet ctive losartan-hydrochlorothiazide (Hyzaar) 100-25 mg tablet Indications:Essential hypertensionTake 1 tablet by mouth in the morning. 30 tablet 11008/31/2022ctive blood pressure test kit-large kit Indications:Essential hypertension1 kit in the morning. 1 kit 08/31/2022ctive Active Problems ProblemNoted DateDiagnosed DateVenous hypertension of lower irhnpywzq31/09/2023 Trigger thumb, left thumb12/14/20225359Turumvpglh38/02/2023Failed back syndrome 12/14/2022ecreased estrogen level12/14/2022denomatous polyp of ascending colon 12/14/2022OSA (obstructive sleep apnea)04/28/2022 Assessment & Plan (06/01/2022 2:23 PM EDT): Continue to wear cpap Assessment & Plan (04/28/2022 2:06 PM EDT): F/U with PCP for further management Closed fracture of orbital floor (blow-out)04/08/20226093Fzrdngpv38/25/2022Fracture of orbit04/08/2022Fracture of radial neck04/08/2022ain in elbow04/08/2022 Hypertensive oeaaubdi59/30/2021 Assessment & Plan (06/01/2022 2:21 PM EDT): [...] 25 mg daily to regime, continue amlodipine 10mg every day, coreg 25 mg bid, losartan 100 mg every day, lasix 40 mg daily. Repeat BMP in 1 week to evaluate renal function and K+ level Blood pressure will be reassessed in 2 weeks- staff will call pt and RTC 3 months Reviewed labs 11/03/21 BUN 15, CR 0.85 normal K+ 4.8 normal Acquired trigger kkuaiu7901/15/2021Non-seasonal allergic yyelvdfq53/25/2021 Vitreous floaters of both eyes04/29/2020Diabetic retinopathy associated with controlled type 2 diabetes ryxofyax55/15/2020Continuous positive airway pressure zqlehozgz17/18/2020Failed back qfnahihw96/04/2018Benign neoplasm of colon 06/27/2018History of colonic kiodzg5206/01/2018Family history of malignant neoplasm of gastrointestinal tract06/01/2018Lipoprotein deficiency disorder 05/01/2018Long term current use of rjylxwr9201/28/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/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-jbhrvs4210/22/2015History of fall10/02/2015Disability of dgneuoj5810/02/20154701Rcjcfbgy03/27/2015Mixed vozrhjijdgwyvq17/27/2015GERD (gastroesophageal reflux disease)06/10/2015ESS (euthyroid sick syndrome) 06/10/2015Type 2 diabetes mellitus with ytgrmjtqgvqhf43/27/2015Chronic pain vrevhugm69/27/2015Chronic cshzliz2406/10/2015Benign essential hypertension 06/10/20155039Fzpzzngqlw15/27/2015Peripheral venous kwotuzlcpmfqw33/01/2015Diabetic polyneuropathy associated with type 2 diabetes hksvroyg89/01/2015Obesity 01/24/20141132Hvlcnhrk17/12/1722Yvceknpqsvogzp84/12/2014 Immunizations ImmunizationAdministration DatesNext DueInfluenza, High Dose Seasonal, Preservative Free09/15/2020,05/15/2020Influenza, injectable, MDCK, preservative free, jfarlcgnxkjf30/06/2021Influenza, injectable, quadrivalent, preservative free06/15/2019,05/22/2018Influenza, seasonal, rnmxzvgvet31/14/2019Unspecified Sars-Cov-2 Aabcbwwiekd09/17/2021,09/10/2020 Family History Medical HistoryRelationNameCommentsCoronary artery diseaseBrotherCoronary artery diseaseFatherDiabetesFatherHeart diseaseFatherRelationNameStatusCommentsBrother Father Social History Tobacco UseTypesPacks/DayYears UsedDateSmoking Tobacco: FormerCigarettesQuit: 2000Smokeless Tobacco: Never Tobacco Cessation:Counseling Given: Not Answered Alcohol UseStandard Drinks/WeekCommentsNever0 (1 standard drink = 0.6 oz pure alcohol)UT Safety & EnvironmentAnswerDate RecordedFear of Current or Ex-Partner Not on file10/06/2023Emotionally AbusedNot on file10/06/2023hysically AbusedNot on file10/06/2023Sexually AbusedNot on file10/06/2023hysically or Sexually AbusedNot on file10/06/2023CommentsUnknownSex and Gender Information ValueDate RecordedSex Assigned at BirthNot on fileLegal KoaAihfev08/29/2022 11:38 PM EDTGender IdentityNot on fileSexual OrientationNot on file Last Filed Vital Signs Vital SignReadingTime TakenCommentsBlood Hxzocytj158/78001/03/2023 11:10 AM EDT Ysjtn2789/22/2023 11:10 AM EDTTemperature--Respiratory Rate--Oxygen Saturation 98%01/03/2023 11:10 AM EDTInhaled Oxygen Concentration--Wwbyna08.9 kg (189 lb 6.4 oz)01/03/2023 11:10 AM KYIVansrm162.4 cm (5')01/03/2023 11:10 AM EDTBody Mass Index36.9901/03/2023 11:10 AM EDT Plan of Treatment Health MaintenanceDue DateLast DoneCommentsDiabetes: Hemoglobin A1C1945 Medicare Annual Wellness (AWV)1945Diabetes: Retinopathy Screening 1955Depression Kgjcxcyid15/06/1957Fall Risk Wivttfwmg70/06/2010 Pneumococcal Vaccine: 50+ Years (2 of 2 - PCV)Diabetes: Urine Protein Jpdiecsgg34, 01/19/2018, 10/28/2016, Additional history existsZoster Vaccines (2 of 2)/OVID-19 Vaccine (3 - season)5010/01/2020, 09/10/2020Influenza Vaccine (#1)2025 05/20/2021, 09/15/2020, 05/15/2020, Additional history existsAdult Tetanus HIB VaccinesAged OutNo longer eligible based on patient's age to complete this topicHPV VaccinesAged OutNo longer eligible based on patient's age to complete this topicIPV VaccinesAged OutNo longer eligible based on patient's age to complete this topicMeningococcal B VaccineAged OutNo longer eligible based on patient's age to complete this topicMeningococcal VaccineAged OutNo longer eligible based on patient's age to complete this topicRotavirus VaccinesAged OutNo longer eligible based on patient's age to complete this topic Insurance * Guarantor: Cece Mobley TypeRelation to PatientDate of BirthPhone Billing AddressPersonal/FllarnVyxt1945 [address] [place] [address] Care Teams Team MemberRelationshipSpecialtyStart DateEnd Date Kofi Bowers MD [address] [place] [address] [facility]04/07/22
--- OUTSIDE RECORDS SUMMARY | 2025-06-13 10:59 | XMS_ITS | Clinical Summary ---
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 Role Phone Kofi Bowers MD Primary Care Provider [phone] Allergies Active AllergyReactionsCriticalityNoted DateCommentsIodineShortness of breath High12/14/20220776MgfkpjatickhEmrdn63/02/5679IvpdpvnghnYrqecnhxr59/02/2023Shellfish GfqqgzbYppmuxqe78/12/2014 Medications MedicationSigDispense QuantityRefillsLast FilledStart DateEnd DateStatus aspirin 81 MG EC tablet 1 (one) time each day at the same time.04/20/2018Active potassium chloride CR (Klor-Con M20) 20 MEQ ER tablet 1 (one) time each day at the same time.Active alpha tocopherol (Vitamin E) 400 units capsule 1 capsule.Active acetaminophen (Tylenol) 500 MG tablet every 6 (six) hours.Active Ascorbic Acid (Vitamin C) 500 MG/5ML liquid 1 capsule 1 (one) time each day at the same time.Active cholecalciferol (Vitamin D-3) 1.25 MG (71159 UT) tablet Vitamin D3 5000IUActive Calcium Citrate-Vitamin D (Vishnu-Citrate Plus Vitamin D) 250-2.5 MG-MCG tablet Take 1 tablet by mouth in the morning and 1 tablet in the evening.Active Allergy Relief 10 MG tablet Indications:Allergy, initial encounterTAKE 1 TABLET BY MOUTH EVERY MORNING 30 tablet 1104Active amLODIPine (Norvasc) 10 MG tablet Indications:Benign essential hypertensionTAKE 1 TABLET BY MOUTH IN THE MORNING 100 tablet 4Active lovastatin (Mevacor) 20 MG tablet Indications: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HHS-HCC)TAKE 1 TABLET BY MOUTH ONCE DAILY 100 tablet 5Active QUEtiapine (SEROquel) 50 MG tablet Indications:Insomnia, unspecified typeTAKE 1 TABLET BY MOUTH ONCE DAILY 30 tablet 5Active furosemide (Lasix) 40 MG tablet Indications:Benign essential hypertensionTAKE 1 TABLET BY MOUTH IN THE MORNING 30 tablet 5Active acarbose (Precose) 100 MG tablet Indications:Diabetes mellitus type 2 with neurological manifestations (HCC)TAKE 1 TABLET BY MOUTH IN THE MORNING AND 1 TABLET BEFORE BEDTIME 60 tablet 5Active omeprazole (PriLOSEC) [address] capsule Indications:Gastroesophageal reflux disease without esophagitisTAKE 1 CAPSULE BY MOUTH IN THE MORNING 30 capsule 5Active baclofen (Lioresal) 10 MG tablet TAKE 1/2 (ONE-HALF) TO 1 (ONE) TABLET BY MOUTH THREE TIMES DAILY NEEDED 5Active losartan-hydroCHLOROthiazide (Hyzaar) 100-25 MG tablet Indications:Hypertension, unspecified typeTake 1 tablet by mouth Daily 100 tablet 5Active zonisamide (Zonegran) 50 MG capsule Take 50 mg by mouth at dcklsqi76/02/2025Active Glucose Blood (Blood Glucose Test) strip Indications:Type 2 diabetes mellitus with hyperglycemia, without long-term current use of insulin ([facility])1 each by In Vitro route Daily 100 strip 5Active Blood Glucose Monitoring Suppl (Blood Glucose Monitor System) w/Device kit Indications:Type 2 diabetes mellitus with hyperglycemia, without long-term current use of insulin ([facility])1 each Daily 1 kit 5Active Lancets 30G [facility] Indications:Type 2 diabetes mellitus with hyperglycemia, without long-term current use of insulin ([facility])1 each Daily 100 each 5Active Alcohol Swabs (Alcohol Prep) 70 % pads Indications:Type 2 diabetes mellitus with hyperglycemia, without long-term current use of insulin ([facility])1 Pad Daily 100 each 5Active pen needle 32G x 4 mm misc Indications:Type 2 diabetes mellitus with hyperglycemia, with long-term current use of insulin ([facility])Inject 1 each under the skin Daily 100 each 5Active Lantus SoloStar 100 UNIT/ML pen Indications:Type 2 diabetes mellitus with hyperglycemia, with long-term current use of insulin ([facility])INJECT 60 UNITS SUBCUTANEOUSLY (UNDER THE SKIN) IN THE MORNING 15 mL 5Active empagliflozin (Jardiance) 10 MG Indications:Diabetes mellitus type 2 with neurological manifestations (HCC)Take 1 tablet (10 mg) by mouth Daily 30 tablet 11004/26/8159046Active liothyronine (Cytomel) 25 MCG tablet Indications:Hypothyroidism, unspecified type0.5 tablet on an empty stomach Orally two times daily. D.A.W. as [employer] or [employer] Brand ONLY for90 days 200 tablet 5Active traMADol (Ultram) 50 MG tablet Indications:Failed back syndromeTake 1 tablet (50 mg) by mouth every 6 (six) hours if needed for severe pain 120 tablet 515Active methylPREDNISolone (Medrol Dospak) 4 MG tablets Indications:Acute myofascial strain of lumbar region, initial encounterFollow schedule on package instructions 21 tablet 5Active tiZANidine (Zanaflex) 4 MG tablet Indications:Acute myofascial strain of lumbar region, initial encounterTake 1 tablet (4 mg) by mouth every 8 (eight) hours if needed for muscle spasms 30 tablet 5ActiveHospital, Clinic, or Other Facility Administered MedicationOrdered DoseRouteFrequencyStart DateEnd DateStatus triamcinolone acetonide (Kenalog-40) injection 40 mg Indications:Acute myofascial strain of lumbar region, initial iphkyvvfd40 mgIM OnceEnded Active Problems ProblemNoted DateDiagnosed DateMorbid (severe) obesity due to excess calories 08/28/2024Restless leg uhkqkkih64/05/5575Mgtwayc33/14/2024Ectropion of lower upnifk5103/11/2023losed fracture of orbital floor (blow-out)03/11/2023iplopia 03/11/2023 Overview (03/11/2023): Removal Reason: Resolved. Fracture of orbit03/11/2023Fracture of radial neck03/11/2023ain in elbow 03/11/2023Venous hypertension of lower ynzgisyhr98/09/2023denomatous polyp of ascending colon12/14/2022enign essential lrcsurebfjer93/02/2023hronic fatigue 12/14/2022hronic pain zwvojgpd55/02/2023ontinuous positive airway pressure ajinfdgfs91/02/2023ecreased estrogen level12/14/2022iabetes mellitus type 2 with neurological qlizdleqlisjap58/02/2023Type 2 diabetes mellitus with lvaqeymfeinbg77/02/2023iabetic retinopathy associated with controlled type 2 diabetes gyumtvwo22/02/2023ifficulty in walking, not elsewhere classified 12/14/2022ESS (euthyroid sick syndrome)12/14/2022Failed back zaasadvm09/02/2023 GERD (gastroesophageal reflux disease)12/14/2022Sleep initiation disorder 12/14/2022Mixed ydluqnpmnegppo48/02/2023Non-seasonal allergic qsfgryxx21/02/2023 Rjiuqaatih00/02/2023eripheral vascular ejuqukx9112/14/2022eripheral venous kjdogagvvgdna30/02/2023Trigger thumb, left thumb12/14/2022Vitreous floaters of both eyes12/14/20228204Kfgwliwc53/25/2022cquired trigger asxqyn4601/15/2021ody mass index (BMI) 35.0-35.9, adult04/21/2020OSA (obstructive sleep apnea)04/11/2019 Overview (03/11/2023): Last Assessment & Plan: Continue to wear cpap Benign neoplasm of colon06/27/2018History of colonic lgmeqa4206/01/2018Family history of malignant neoplasm of gastrointestinal tract06/01/2018Lipoprotein deficiency /17/2018Long term current use of lnkqopi8301/28/2016 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[facility])11/25/2015Ex-qfxzmi2110/22/2015History of fall10/02/20150720Rgeburdn27/27/2015Diabetic polyneuropathy associated with type 2 diabetes qdcbninw09/01/3943Gfghjcun89/12/4692Hrhejibgayhgct00/12/2014 Resolved Problems ProblemNoted DateDiagnosed DateResolved DateLow HDL (under 40)12/14/2022 12/14/2022 Encounters DateTypeDepartmentCare IyxzSmybmjlkdul88/24/2025Telephone [facility] [address] [place] [address] Kofi Bowers MD 06/06/2025 9:00 AM EDTOffice Visit [facility] [address] [place] [address] Kofi Bowers MD Acute myofascial strain of lumbar region, initial encounter (Primary Dx) 06/06/2025amboo flowsheet [facility] [address] [place] [address] Kofi Bowers MD 06/06/20255048Nmaljq34/07/2025bstract [facility] [facility] [address] [place] [address] Kofi Bowers MD 05/13/2025Telephone [facility] [address] [place] [address] Kofi Bowers MD 05/06/2025bstract [facility] [facility] [address] [place] [address] Kofi Bowers MD 04/29/2025Refill [facility] [facility] [address] [place] [address] Kofi Bowers MD Hypothyroidism, unspecified type ; Failed back jdproawp76/12/2025bstract [facility] [facility] [address] [place] [address] Kofi Bowers MD 04/24/2025Telephone [facility] [facility] [address] [place] [address] Kofi Bowers MD med not ioihdnm5804/22/2025Telephone [facility] [facility] [address] [place] [address] Kofi Bowers MD 04/19/2025Telephone [facility] [place] [facility] [address] [facility] [address] [place] [address] Kofi Bowers MD Med Lujcgh4704/18/2025Refill [facility] [place] [facility] [address] [facility] [address] [place] [address] Skye Perla PA Type 2 diabetes mellitus with hyperglycemia, with long-term current use of insulin ([facility])04/17/2025 11:00 AM EDTOffice Visit [facility] [place] [facility] [address] [facility] [address] [place] [address] Kofi Bowers MD Routine general medical examination at health care facility (Primary Dx); ACP (advance care planning); Diabetes mellitus type 2 with neurological manifestations ([facility])04/17/2025 Telephone [facility] [place] [facility] [address] [facility] [address] [place] [address] Kofi Bowers MD 04/17/2025amboo flowsheet [facility] [place] [facility] [address] [facility] [address] [place] [address] Kofi Bowers MD 04/17/20257414Xynwtq26/21/2025Refill [facility] [place] [facility] [address] [facility] [address] [place] [address] Kofi Bowers MD Failed back payszcmp58/12/2025Telephone [facility] [place] [facility] [address] [facility] [address] [place] [address] Kofi Bowers MD 03/13/2025bstract [facility] [place] [facility] [address] [facility] [address] [place] [address] Kofi Bowers MD from Last 3 Months Immunizations ImmunizationAdministration DatesNext DueABRYSVO - Respiratory syncytial virus (RSV), vaccine, bivalent, protein subunit RSV prefusion F, diluent reconstituted, 0.5 mL, PF06/20/2024Influenza, High Dose Seasonal, Preservative Free06/20/2024,09/15/2020Influenza, High-dose Seasonal, Quadrivalent, Preservative Free06/06/2023Influenza, Recombinant, injectable, preservative free 05/15/2020Influenza, injectable, MDCK, preservative free, pcdlcehxzoqs16/06/2021 Influenza, injectable, quadrivalent, preservative free06/15/2019,05/22/2018, 08/02/2015Pneumococcal Polysaccharide LEVX4745Td (adult), 5 Lf tetanus toxoid, preservative free, /17/2015Zoster, Vbdqxyqzogl58/29/2025, 12/07/2024 Family History Medical HistoryRelationNameCommentsCancerBrotherColon ; Didn't indicate which brother among the 3Heart diseaseBrotherPassed ; Didn't indicate which brother among the 3Kidney problemBrotherPassed ; Didn't indicate which brother among the 3CancerFatherDiabetesFatherHeart diseaseFatherHypertensionFatherCancerMother Colon CancerCancerOtherSpouse: Prostate that metastisized to bone ; Eryhtroid LeukemiaDiabetesSonTourette zbxnvgreOwnOkkftumxYqbkQifcqiQrrdxrfaRpbhbqch8Lttyph PrekbojsYfrlvxIvdpllsuNbutoEaythxyiWjikipp1OzfOjcgs Social History Tobacco UseTypesPacks/DayYears UsedDateSmoking Tobacco: FormerCigarettesQuit: 08/15/1999Smokeless Tobacco: Never Tobacco Cessation:Counseling Given: Yes Alcohol UseStandard Drinks/WeekCommentsNot Currently0 (1 standard drink = 0.6 oz pure alcohol)Caffeine: 1-2 cups per day; none soda/popPHQ-2AnswerDate Recorded Patient Health Questionnaire-2 Muonm382CommentsUnknownSex and Gender InformationValueDate RecordedSex Assigned at BirthNot on fileLegal Sex Vvmnzw4610/27/2022 6:38 PM EDTGender IdentityNot on fileSexual OrientationNot on file Last Filed Vital Signs Vital SignReadingTime TakenCommentsBlood Scxqebdn117/8210 8:53 AM EDT Smiyn1392/ 8:53 AM AMZKaepjmaulkv33.4 ??C (97.5 ??F)02/08/2025 11:07 AM EDTRespiratory Eqcq043102/11/2025 2:10 PM EDTOxygen Uihhkcbtzz87%06/06/2025 8:53 AM EDTInhaled Oxygen Concentration--Yhloez00.2 kg (190 lb)06/06/2025 8:53 AM EDT Ooxcqe408.4 cm (5')06/06/2025 8:53 AM EDTBody Mass Index37.111 8:53 AM EDT Plan of Treatment DateTypeDepartmentCare Team (Latest Contact Info)Tclthwnrxqs92/03/2025 11:30 AM ESTOffice Visit [facility] [place] [facility] [address] [facility] [address] [place] [address] Kofi Bowers MD [address] [facility] [address] [place], [place] [phone] Health MaintenanceDue DateLast DoneCommentsPneumococcal Vaccine: 65+ Years (2 of 2 - PCV)DTaP/Tdap/Td Vaccines (2 - Tdap) COVID-19 Vaccine (3 - season)/, 09/10/2020Influenza Vaccine (#1)/01/2024, 06/06/2023, 05/20/2021, Additional history existsDiabetes: Hemoglobin A1C/10/2024, 03/07/2025, 01/14/2025, Additional history existsMedicare Annual Wellness (AWV)/10/2024, 04/09/2024, 01/03/2023, Additional history existsDiabetes: Urine Protein Nohscyvhp54/12/2024, 04/09/2024, 01/18/2024, Additional history exists Diabetes: Retinopathy Anebifppr62/, 05/03/2024, 04/28/2020, Additional history existsHIB VaccinesAged OutNo longer eligible based on patient's age to complete this topicHPV VaccinesAged OutNo longer eligible based on patient's age to complete this topicHepatitis A VaccinesAged OutNo longer eligible based on patient's age to complete this topicHepatitis B VaccinesAged OutNo longer eligible based on patient's age to complete this topicIPV Vaccines Aged OutNo longer eligible based on patient's age to complete this topic Meningococcal B VaccineAged OutNo longer eligible based on patient's age to complete this topicMeningococcal VaccineAged OutNo longer eligible based on patient's age to complete this topicRotavirus VaccinesAged OutNo longer eligible based on patient's age to complete this topic Procedures Procedure NamePriorityDate/TimeAssociated DiagnosisCommentsDIABETIC RETINOPATHY SCREENING - OU - BOTH WLMVUriesoi36/22/2025 LIPID BPCEGBiafdbj30/05/2025 9:53 AM EDT Diabetes mellitus type 2 with neurological manifestations (HCC) COMPREHENSIVE METABOLIC XNHNBMyqqvrw89/05/2025 9:53 AM EDT Diabetes mellitus type 2 with neurological manifestations (HCC) MICROALBUMIN / CREATININE URINE LGZSGFaqhzzc26/05/2025 9:53 AM EDT Diabetes mellitus type 2 with neurological manifestations (HCC) POCT GLYCATED HEMOGLOBIN, TIBUTHfswngb23/03/2025 11:24 AM EDT Diabetes mellitus type 2 with neurological manifestations (HCC) from Last 3 Months Results * Diabetic Retinopathy Screening - OU - Both Eyes (05/06/2025)ComponentValueRef RangeTest MethodAnalysis TimePerformed AtPathologist SignatureRESULTSndr Anatomical RegionLateralityModalityHeadOtherSpecimen (Source)Anatomical Location / LateralityCollection Method / VolumeCollection TimeReceived Time 05/06/2025 Narrative Authorizing ProviderResult TypeResult StatusDajosé Bowers [facility] Final Result * Microalbumin / creatinine urine ratio (04/19/2025 9:53 AM EDT)ComponentValue Ref RangeTest MethodAnalysis TimePerformed AtPathologist SignatureCREATININE, RANDOM HZBLS3571 - 275 mg/dLQUESTALBUMIN, URINE0.3See Note: mg/dLQUESTComment: Reference Range: Reference Range Not established ALBUMIN/CREATININE RATIO, RANDOM URINE8<30 mg/g creatQUESTComment: The ADA defines abnormalities in albumin excretion as follows: Albuminuria Category ?Result (mg/g creatinine) Normal to Mildly increased <30 Moderately increased ? 30-299 Severely increased > OR = 300 The ADA recommends that at least two of three specimens collected within a 3-6 month period be abnormal before considering a patient to be within a diagnostic category. Specimen (Source)Anatomical Location / LateralityCollection Method / Volume Collection TimeReceived TimeUrineUrine specimen obtained by clean catch procedure / Zqghzcs9504/19/2025 9:53 AM EDT04/19/2025 9:53 AM EDT Narrative [facility] - 2025 11:17 AM EDT FASTING:YES FASTING: YES Resulting Agency Comment Performing Organization Information ?Site ID: QPT ?Name: [email or web address] [facility] ?Address: [address] [place] [address], [address] [place] [phone] ?Director: Cezar Singh MD Authorizing ProviderResult TypeResult StatusDajosé Bowers MDLAB URINE ORDERABLESFinal ResultPerforming OrganizationAddressCity/State/ZIP CodePhone Number [facility] * (ABNORMAL) Lipid panel (04/19/2025 9:53 AM EDT)ComponentValueRef RangeTest MethodAnalysis TimePerformed AtPathologist SignatureCHOLESTEROL, ZVQIO978<200 mg/dLQUESTHDL YDTPTVHDENT88> OR = 50 mg/mUUHQYSBBYETEDJWKKVZ498(H)<150 mg/dL QUESTLDL AVJOANVETNY05jn/dL (calc)QUESTComment: Reference range: <100 Desirable range <100 mg/dL for primary prevention; <70 mg/dL for patients with CHD or diabetic patients with > or = 2 CHD risk factors. LDL-C is now calculated using the Jefe calculation, which is a validated novel method providing better accuracy than the Friedewald equation in the estimation of LDL-C. Tien TUTTLE et al. ARON. 2013;310(19): 5234-4822 (http://education.[employer].[facility]/faq/KTA591) CHOL/HDLC RATIO2.8<5.0 (calc)QUESTNON HDL JOMRVAVNSKN32<130 mg/dL (calc)[facility] Comment: For patients with diabetes plus 1 major ASCVD risk factor, treating to a non-HDL-C goal of <100 mg/dL (LDL-C of <70 mg/dL) is considered a therapeutic option. Specimen (Source)Anatomical Location / LateralityCollection Method / Volume Collection TimeReceived TimeBloodVenous blood specimen / Rrjxygt5904/19/2025 9:53 AM EDT04/19/2025 9:53 AM EDT Narrative [facility] - 2025 11:17 AM EDT FASTING:YES FASTING: YES Resulting Agency Comment Performing Organization Information ?Site ID: [email or web address] ?Name: [email or web address] [facility] ?Address: [address] [place] [phone] ?Director: Cezar Singh MD Authorizing ProviderResult TypeResult StatusDajosé Bowers MDLAB BLOOD ORDERABLESFinal ResultPerforming OrganizationAddressCity/State/ZIP CodePhone Number [facility] * (ABNORMAL) Comprehensive metabolic panel (04/19/2025 9:53 AM EDT)Component ValueRef RangeTest MethodAnalysis TimePerformed AtPathologist SignatureGlucose 129(H)65 - 99 mg/dLQUESTComment: ? Fasting reference interval For someone without known diabetes, a glucose value >125 mg/dL indicates that they may have diabetes and this should be confirmed with a follow-up test. XJW768 - 25 mg/dLQUESTCreatinine0.900.60 - 0.95 mg/zISGYWPMLFA08> OR = 60 mL/min/1.33x0IGZLSBQC/CREATININE RATIOSEE NOTE: (calc)QUESTComment: ?? Not Reported: BUN and Creatinine are within ?? reference range. ? Gayfhz791394 - 146 mmol/LQUESTPotassium, Bld4.03.5 - 5.3 mmol/MQMRTLFhhdtgdh709 98 - 110 mmol/LQUESTCarbon Cimzasg4308 - 32 mmol/LQUESTCalcium9.48.6 - 10.4 mg/dLQUESTPROTEIN, TOTAL6.96.1 - 8.1 g/dLQUESTALBUMIN4.23.6 - 5.1 g/dLQUEST GLOBULIN2.71.9 - 3.7 g/dL (calc)QUESTALBUMIN/GLOBULIN RATIO1.61.0 - 2.5 (calc) QUESTBILIRUBIN, TOTAL0.40.2 - 1.2 mg/dLQUESTALKALINE XJVTWZEKFRL6604 - 153 U/L CVXGNLMM5777 - 35 U/IDFDJULOQ880 - 29 U/LQUESTSpecimen (Source)Anatomical Location / LateralityCollection Method / VolumeCollection TimeReceived TimeBlood Venous blood specimen / Gtiuqpj7004/19/2025 9:53 AM EDT04/19/2025 9:53 AM EDT Narrative [facility] - 2025 11:17 AM EDT FASTING:YES FASTING: YES Resulting Agency Comment Performing Organization Information ?Site ID: [email or web address] ?Name: [email or web address] [facility] ?Address: [address] [place] [phone] ?Director: Cezar Singh MD Authorizing ProviderResult TypeResult StatusKofi Bowers MDLAB BLOOD ORDERABLESFinal ResultPerforming OrganizationAddressCity/State/ZIP CodePhone Number [facility] * POCT Glycated hemoglobin, total (04/17/2025 11:24 AM EDT)ComponentValueRef RangeTest MethodAnalysis TimePerformed AtPathologist SignatureHemoglobin A1C 7.8Specimen (Source)Anatomical Location / LateralityCollection Method / Volume Collection TimeReceived YlbgIiplx68/03/2025 11:24 AM EDT Narrative Authorizing ProviderResult TypeResult Jorge Luis Bowers MDPOINT OF CARE TEST ENTER/EDIT ORDERABLESFinal Result from Last 3 Months Insurance Care Teams Team MemberRelationshipSpecialtyStart DateEnd Date Kofi Bowers MD [address] [address] PCP - GeneralInternal Medicine12/22/22
--- OUTSIDE RECORDS SUMMARY | 2025-06-13 10:59 | XMS_ITS | Clinical Summary ---
Author Organization [employer] s tem Address [id number] [address] 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 Name Role Phone Kofi Bowers MD Primary Care Provider [phone] Allergies Active AllergyReactionsCriticalityNoted QcphOuttxktuGkqziy45/11/2019 Throat swells, couldn't breathe Briqoppgfrvl14/11/2019 itchy Medications MedicationSigDispense QuantityRefillsLast FilledStart DateEnd DateStatus acarbose (PRECOSE) 100 MG tablet Take 1 tablet (100 mg total) by mouth in the morning and 1 tablet (100 mg total) before bedtime.Active liothyronine (CYTOMEL) 25 MCG tablet Take 0.5 tablets (12.5 mcg total) by mouth in the morning and 0.5 tablets (12.5 mcg total) before bedtime.Active omeprazole (PriLOSEC) 20 mg capsule Take 1 capsule (20 mg total) by mouth in the morning.Active metoprolol tartrate (LOPRESSOR) 50 mg tablet Take 50 mg by mouth daily.Active metFORMIN (GLUMETZA) 1000 MG (MOD) 24 hr tablet Take 1 tablet (1,000 mg total) by mouth in the morning and 1 tablet (1,000 mg total) in the evening. Take with meals.Active lovastatin (MEVACOR) 20 mg tablet Take 1 tablet (20 mg total) by mouth nightly.Active losartan (COZAAR) 50 mg tablet Take 2 tablets (100 mg total) by mouth in the morning.Active potassium chloride (K-DUR,KLOR-CON) 10 MEQ CR tablet Take 2 tablets (20 mEq total) by mouth in the morning.Active furosemide (LASIX) 40 mg tablet Take 1 tablet (40 mg total) by mouth 2 (two) times a day.Active DULoxetine (CYMBALTA) 60 mg capsule Take 60 mg by mouth daily.Active cloNIDine (CATAPRES) 0.1 mg tablet Take 1 tablet (0.1 mg total) by mouth in the morning and 1 tablet (0.1 mg total) before bedtime.Active QUEtiapine (SEROquel) 25 mg tablet Take 2 tablets (50 mg total) by mouth nightly.Active traMADol (ULTRAM) 50 mg tablet Take 1 tablet (50 mg total) by mouth every 6 (six) hours as needed for pain. Active insulin detemir U-100 (LEVEMIR) 100 unit/mL injection Inject 0.6 mL (60 Units total) under the skin nightly.Active calcium citrate-vitamin D2 250-100 mg-unit per tablet Take 1 tablet by mouth in the morning and 1 tablet before bedtime.Active TURMERIC ORAL Take by mouth.Active acetaminophen (TYLENOL) 325 mg tablet Take 2 tablets (650 mg total) by mouth every 6 (six) hours as needed for pain. Active vitamin E 100 units capsule Take 1 capsule (100 Units total) by mouth in the morning.Active biotin (BIOTIN) 2,500 mcg capsule Take 2 capsules (5,000 mcg total) by mouth in the morning.Active melatonin (CIRCADIN) tablet Take 10 mg by mouth nightly.Active aspirin 81 mg Take 1 tablet (81 mg total) by mouth in the morning.Active Active Problems No known active problems Social History Tobacco UseTypesPacks/DayYears UsedDateSmoking Tobacco: FormerCigarettes Smokeless Tobacco: Never Comments:quit 1999 Alcohol UseStandard Drinks/WeekCommentsNot Currently0 (1 standard drink = 0.6 oz pure alcohol)ChildcareAnswerDate BoswyybpKzntogklxIuxodll94/12/2019Employment AnswerDate NiilibrxYbbhihsszaKybadzv06/12/2019Hunger ScreeningAnswerDate RecordedWithin the past 12 months we worried whether our food would run out before we got money to buy more.Never True03/18/2024Within the past 12 months the food we bought just didn't last and we didn't have money to get more.Never True4Purpose - LifeAnswerDate RecordedPurpose and direction in life Xzarowv77/11/2021CommentsNoSex and Gender InformationValueDate Recorded Sex Assigned at BirthNot on fileLegal IslQcwiit87/06/2015 11:38 AM EDTGender IdentityNot on fileSexual OrientationNot on file Last Filed Vital Signs Vital SignReadingTime TakenCommentsBlood Ywgrnvbs401/7308 11:04 AM EDT Wolbi2007 11:04 AM QXDAocbtfjzdkf13.6 ??C (97.9 ??F)03/18/2024 11:04 AM EDTRespiratory Wxqk5662 11:04 AM EDTOxygen Vmqjzpmfjg087%03/18/2024 11:04 AM EDTInhaled Oxygen Concentration--Fqsdmh23.6 kg (182 lb)03/18/2024 11:04 AM BPKLrpdxj434.4 cm (5')03/18/2024 11:04 AM EDTBody Mass Index35.5408 11:04 AM EDT Plan of Treatment Health MaintenanceDue DateLast DoneCommentsDepression Zlqbijlin54/06/1957Tobacco Yzavqsnla61/06/1957Fall Risk Awnqpwduk83/06/2010Zoster (Shingles) Vaccine (2 of 2)/3COVID-19 Vaccine (3 - 2024- season)502/, 09/10/2020Influenza Sllqnoo81/, 05/20/2021, 09/15/2020, Additional history existsDTaP,Tdap and Td Vaccines (2 - Td or Tdap)07/31/2025 07/31/2015 Medical Devices Not on file Insurance Care Teams Team MemberRelationshipSpecialtyStart DateEnd Date Kofi Bowers MD [address] [id number] PCP - GeneralInternal Medicine10/27/22
--- OUTSIDE RECORDS SUMMARY | 2025-06-13 10:59 | XMS_ITS | Clinical Summary ---
Author Organization [facility] Address [facility] [place] [address] Care Team Providers Care Auction Assistant Name Role Phone Unavailable Primary Care Provider Unavailabl e Allergies Active AllergyReactionsCriticalityNoted QhjjQyagddwgRforhkTieobtaj86/12/2014 YbwgohjfrMfpwbnjz43/12/2014 Medications MedicationSigDispense QuantityRefillsLast FilledStart DateEnd DateStatus meloxicam (MOBIC) 15 mg tablet Indications:PolyneuropathyTake 15 mg by mouth once daily.Active furosemide (LASIX) 40 mg tablet Indications:PolyneuropathyTake 40 mg by mouth once daily.Active metFORMIN 850 mg tablet Indications:PolyneuropathyTake 850 mg by mouth twice daily with meals.Active cloNIDine-chlorthalidone 0.1-15 mg per tablet Indications:PolyneuropathyTake 1 tablet by mouth three times daily.Active hydrochlorothiazide 25 mg tablet Indications:PolyneuropathyTake 25 mg by mouth once daily.Active gabapentin (NEURONTIN) 600 mg tablet Indications:PolyneuropathyTake 600 mg by mouth four times daily.Active DULoxetine (CYMBALTA) 60 mg capsule Indications:PolyneuropathyTake 60 mg by mouth once daily.Active omeprazole (PRILOSEC) 20 mg capsule Indications:PolyneuropathyTake 20 mg by mouth once daily.Active loratadine (CLARITIN) 10 mg tablet Indications:PolyneuropathyTake 10 mg by mouth once daily.Active metoprolol succinate XL, long acting, (TOPROL XL) 50 mg 24 hr tablet Indications:PolyneuropathyTake 50 mg by mouth once daily.Active meclizine 25 mg tab Indications:PolyneuropathyTake 25 mg by mouth once daily.Active losartan 100 mg tablet Indications:PolyneuropathyTake 100 mg by mouth once daily.Active pregabalin (LYRICA) 100 mg capsule Indications:PolyneuropathyTake 100 mg by mouth three times daily.Active traZODone 100 mg tablet Indications:PolyneuropathyTake 100 mg by mouth daily at bedtime.Active METHYL-B12/L-MEFOLATE/B6 PHOS (METANX ORAL) Indications:PolyneuropathyTake 180 mg by mouth twice daily.Active fluocinolone 0.01 % cream Indications:PolyneuropathyApply 1 application to affected area twice daily. Active liraglutide (VICTOZA 2-KACI) 0.6 mg/0.1 mL (18 mg/3 mL) pnij Indications:PolyneuropathyInject 1.8 mg subcutaneously once daily.Active oxyCODONE-acetaminophen (PERCOCET) 5-325 mg tablet Indications:PolyneuropathyTake 1 tablet by mouth every 8 hours as needed.Active lovastatin 20 mg tablet Indications:PolyneuropathyTake 20 mg by mouth daily at bedtime.Active sitaGLIPtin (JANUVIA) 100 mg tablet Indications:PolyneuropathyTake 100 mg by mouth once daily.Active calcium combo no.2-vitamin D3 600 mg calcium- 500 unit TbER Indications:PolyneuropathyTake by mouth twice daily.Active aspirin (PATSY CHEWABLE ASPIRIN) 81 mg chewable tablet Indications:PolyneuropathyTake 81 mg by mouth once daily.Active DOCUSATE CALCIUM (STOOL SOFTENER ORAL) Indications:PolyneuropathyTake by mouth as needed.Active CAPSAICIN (ZOSTRIX TOPICAL) Indications:PolyneuropathyApply to affected area.Active Active Problems ProblemNoted DateDiagnosed XhyuNjyjrgihjnirwt06/12/9357Bzdfcwrm75/12/2014Obesity 01/24/2014 Social History Tobacco UseTypesPacks/DayYears UsedDateSmoking Tobacco: Never Assessed CommentsUnknownSex and Gender InformationValueDate RecordedSex Assigned at Not on fileLegal WdcQnmixl11/02/2012 10:41 AM ESTGender IdentityNot on file Sexual OrientationNot on file Last Filed Vital Signs Vital SignReadingTime TakenCommentsBlood Bpysrlkk059/6006 12:45 PM EDT Fjirb5122 12:45 PM EDTTemperature--Respiratory Rate--Oxygen Saturation-- Inhaled Oxygen Concentration--Weight--Height--Body Mass Index-- Plan of Treatment Health MaintenanceDue DateLast DoneCommentsAnxiety Ullayfchi77/06/1963Depression Sahoeyrqq75/06/1963DTaP,Tdap,Td Vaccine (1 - Tdap)1964Diabetes Screening 1990Pneumococcal Vaccine: 50+ (1 of 1 - PCV)1995Shingrix Vaccine (1 of 2)1995Bone Density Epnngzery78/06/2010RSV Vaccine (1 - 1-dose 75+ series)2020Advance Directive Fdwhsukdvj96/01/2025ovid-19 Vaccine (1 - 2024-26 season)2025Influenza Vaccine (#1)2025 Insurance
--- OUTSIDE RECORDS SUMMARY | 2025-06-13 11:00 | XMS_ITS | Encounter Summary ---
Author Organization [facility] Address [address] [facility] [place] [address] Care Team Providers Care Mold Capper Name Role Phone Kofi Bowers MD Primary Care Provider [phone] Encounter Details DateTypeDepartmentCare Team (Latest Contact Info)Udzrbgtxupx58/23/2025amboo flowsheet [facility] [place] [facility] [address] [facility] [address] [place] [phone] Kofi Bowers MD [address] [facility] [address] [place] [id number] Social History Tobacco UseTypesPacks/DayYears UsedDateSmoking Tobacco: FormerCigarettesQuit: 08/15/1999Smokeless Tobacco: NeverAlcohol UseStandard Drinks/WeekCommentsNot Currently0 (1 standard drink = 0.6 oz pure alcohol)Caffeine: 1-2 cups per day; none soda/popPHQ-2AnswerDate RecordedPatient Health Questionnaire-2 Score0 06/06/2025CommentsUnknownSex and Gender InformationValueDate RecordedSex Assigned at BirthNot on fileLegal ShaLfxcbd42/15/2023 6:38 PM EDTGender Identity Not on fileSexual OrientationNot on filedocumented as of this encounter Plan of Treatment DateTypeDepartmentCare Team (Latest Contact Info)Qoaskfujyev68/03/2025 11:30 AM ESTOffice Visit [facility] [place] [facility] [address] [facility] [address] [place] [address] Kofi Bowers MD [address] [facility] [address] [place], [place] [phone] documented as of this encounter Visit Diagnoses Not on filedocumented in this encounter Additional Health Concerns AssessmentNoted TimePHQ-9 Depression Total Score: 10:00 AM EDT documented as of this encounter Care Teams Team MemberRelationshipSpecialtyStart DateEnd Date Kofi Bowers MD 112 [facility] [address] [place] [address] PCP - GeneralInternal Medicine12/22/22documented as of this encounter
--- OUTSIDE RECORDS SUMMARY | 2025-06-13 11:00 | XMS_ITS | Encounter Summary ---
Author Organization [facility] Address [address] [place] [address] Care Team Providers Care Inventory Control Supervisor Name Role Phone Kofi Lara MD Primary Care Provider [phone] Encounter Details DateTypeDepartmentCare Team (Latest Contact Info)Bpxhxlrjxjr99/24/2025Telephone [facility] [place] [facility] [address] [place] [address] [place] [address] Kofi Lara MD [address] [facility] [address] [place] [address] Social History Tobacco UseTypesPacks/DayYears UsedDateSmoking Tobacco: FormerCigarettesQuit: 08/15/1999Smokeless Tobacco: NeverAlcohol UseStandard Drinks/WeekCommentsNot Currently0 (1 standard drink = 0.6 oz pure alcohol)Caffeine: 1-2 cups per day; none soda/popPHQ-2AnswerDate RecordedPatient Health Questionnaire-2 Score0 06/06/2025CommentsUnknownSex and Gender InformationValueDate RecordedSex Assigned at BirthNot on fileLegal GicBusser86/15/2023 6:38 PM EDTGender Identity Not on fileSexual OrientationNot on filedocumented as of this encounter Miscellaneous Notes * Telephone Encounter - Charlette Chirinos - 06/07/2025 1:00 PM EDT Pt oked to leave a message. Left voicemail that it was ok to take the Baclofen at bedtime and to take the Tizanidine during the day. She is to call with any other questions. * Telephone Encounter - Lilly Granda LPN - 06/07/2025 12:[address] lara okay to take baclofen at bedtime take the tizanidine during the day --attempted to notify no answer * Telephone Encounter - Charlette Chirinos - 06/07/2025 8:52 AM EDT Cece called, She needs some clarification on if she is suppose to continue her Baclofen for now. She stated Dr. Lara told her to go ahead and take it but when she picked up the 2 prescriptions yesterday, the Pharmacist told her to be sure not to take the Baclofen. She did not take it last night but said she was awake all night. Please let her know if she can continue taking the Baclofen along wi th the other prescriptions. documented in this encounter Plan of Treatment DateTypeDepartmentCare Team (Latest Contact Info)Fdzepmvnfis17/03/2025 11:30 AM ESTOffice Visit [facility] [place] [facility] [address] [facility] [address] [place] [address] Kofi Lara MD [address] [place] [address] [place] [address] documented as of this encounter Visit Diagnoses Not on filedocumented in this encounter Additional Health Concerns AssessmentNoted TimePHQ-9 Depression Total Score: 10:00 AM EDT documented as of this encounter Care Teams Team MemberRelationshipSpecialtyStart DateEnd Date Kofi Lara MD [address] [place] [address] [place] [address] PCP - GeneralInternal Medicine12/22/22documented as of this encounter
--- OUTSIDE RECORDS SUMMARY | 2025-06-13 11:00 | XMS_ITS | Encounter Summary ---
Author Organization [facility] Address [address] [place] [address] Care Team Providers Care Knitter Machine Name Role Phone Kofi Bowers MD Primary Care Provider [phone] Encounter Details DateTypeDepartmentCare Team (Latest Contact Info)Oxmszxsfkaj54/23/2025Travel Social History Tobacco UseTypesPacks/DayYears UsedDateSmoking Tobacco: FormerCigarettesQuit: 08/15/1999Smokeless Tobacco: NeverAlcohol UseStandard Drinks/WeekCommentsNot Currently0 (1 standard drink = 0.6 oz pure alcohol)Caffeine: 1-2 cups per day; none soda/popPHQ-2AnswerDate RecordedPatient Health Questionnaire-2 Score0 06/06/2025CommentsUnknownSex and Gender InformationValueDate RecordedSex Assigned at BirthNot on fileLegal FchGofmwd84/15/2023 6:38 PM EDTGender Identity Not on fileSexual OrientationNot on filedocumented as of this encounter Functional Status * Over the past 2 weeks, how often have you been bothered by any of the following problems?QuestionAnswerDate of AssessmentAuthorLittle interest or pleasure in doing thingsNot at all06/06/2025 8:54 AM Lilly Reynoso LPN Feeling down, depressed, or hopelessNot at all06/06/2025 8:54 AM Lilly Reynoso LPNPatient Health Questionnaire-2 Sxowk826 8:54 AM Lilly Reynoso LPN documented as of this encounter Plan of Treatment DateTypeDepartmentCare Team (Latest Contact Info)Modipwfccjd80/03/2025 11:30 AM ESTOffice Visit [facility] [place] [facility] [address] [facility] [address] [place] [address] Kofi Bowers MD [address] [facility] [address] [place] [address] documented as of this encounter Visit Diagnoses Not on filedocumented in this encounter Additional Health Concerns AssessmentNoted TimePHQ-9 Depression Total Score: 10:00 AM EDT documented as of this encounter Care Teams Team MemberRelationshipSpecialtyStart DateEnd Date Kofi Bowers MD [address] [facility] [address] [place] [address] PCP - GeneralInternal Medicine12/22/22documented as of this encounter
--- OUTSIDE RECORDS SUMMARY | 2025-06-13 11:01 | XMS_ITS | CCD ---
Author Organization [facility] Care Team Providers Care Machine [employer]ision Engraver Name Role Phone Olamide Ching Unavailable MD Abdullahi Acosta Attending Provider MONI Bowers Primary Care Provider [phone] Abdullahi Acosta Unavailable VERNA, ANGELA Consulting Unavailable [...] ., BETZAIDA Consulting Unavailable GARCIA ., DR SERENTIY Barahona Attending Unavailable GARCIA ., DR SERENITY [...] ESTES Admitting Unavailable ANGELA GILLESPIE Consulting Unavailable KAYLEY, DR GLOVER Primary Care Unavailable JOSE, DR [...] BUENO, Esperanza Shafer Attending Unavailable Giedraitis , Andrius Soni Attending Unavailable Giedraitis , Andrius Soni Attending Unavailable Giedraitis , Andrius Soni Attending Unavailable Giedraitis , Andrius Soni Attending Unavailable Giedraitis , Esperanza Shafer Attending Unavailable SKYE GOODE Attending Unavailable KOFI BOWERS Attending Unavailable KOFI BOWERS Attending Unavailable KOFI BOWERS Attending Unavailable KOFI BOWERS Attending Unavailable KOFI BOWERS Attending Unavailable SKYE GOODE Attending Unavailable Allergies Allergy ClassificationReported Allergen(s)Allergy TypeDate of OnsetReaction(s) Facility (3 sources)GemfibrozilDrug AllergymusAd[facility] Other (20 sources)Iodine; Translations: [IODINE]Drug Sylzkwl56-86-5729nipskxhgrxd, [facility] (5 sources)levoFLOXacin; Translations: [Levaquin]Drug Uwgtmhh82-17-3060 [facility]opathyThe [facility] (20 sources)levoFLOXacin; Translations: [LEVOFLOXACIN]Drug Ipcbgsi74-14-7763 [facility] (1 source)Iodine and Iodide Containing ProducAllergy to vcbxgpooi12-23-5494 Unknown ReactionMagruder Hospital (2 sources)hydrALAZINEDrug Zhqbbdk64-68-9183[facility]vyMer[facility] Repository (1 source)IodineDrug Qoyprcc00-13-9710ExbMercy Health [facility] Repository (20 sources)pregabalin; Translations: [PREGABALIN]Drug Gfulzfh57-41-3784 [facility]izzinessUnTog[facility] Repository (1 source)SHELLFISH CONTAINING PRODUCTS; Translations: [SHELLFISH CONTAINING PRODUCTS]Propensity to adverse reactions to drug (disorder)33-99-5071VzebfmmbwcSouthview Medical Center Repository (3 sources)Iodinated Contrast Media; Translations: [Iodinated Contrast Media] Allergy to knicosbvu52-60-2881Idvsfhp ReactionMagruder Hospital (2 sources)GemfibrozilDrug Fanqubu44-81-6233odjtus atrophyMagruder Hospital Repository (1 source)IodineDrug Gelozip68-25-4488TmwnpacllMagruder Hospital Repository (20 sources)ShellfishAllergy to qvaofxfzx74-48-9044SfzohespYWEB Healthcare Work Phone: Medications Current Medications MedicationDrug Class(es)DatesSig (Normalized)Sig (Original)acarbose 100 mg oral tablet (20 sources)alpha-Glucosidase InhibitorStart: 34-88-0985oydh 1 tablet by mouth in the morningacarbose (Precose) 100 MG tablet Indications: Diabetes mellitus type 2 with neurological manifestations (HCC) TAKE 1 TABLET BY MOUTH IN THE MORNING AND 1 TABLET BEFORE BEDTIME 60 tablet 11 5ActiveStart: 49-51-2924vyvw 1 tablet by mouth in the morningacarbose (Precose) 100 MG tablet Indications: 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 60 tablet 10 01/18/2024 ActiveStart: 24-51-1642bwrr 1 tablet by mouth in the morningacarbose (Precose) 100 MG tablet Indications: 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 200 tablet 3 02/02/2023 ActiveStart: 12-13-2783dhhh 1 tablet by mouth twice dailyAcarbose 100 mg tablet Active 1 TAB PO Twice daily June 12, 2018 11:00pmacetaminophen 500 mg oral tablet (20 sources)acetaminophen (Tylenol) 500 MG tablet every 6 (six) hours. Active Tylenol Activealbuterol 0.83 mg/ml inhalation solution (3 sources)beta2-Adrenergic AgonistAlbuterol Sulfate (2.5 MG/3ML) 0.083% 1 unit dose Inhalation four times a day DX J44.9 COPD Activeamitriptyline hydrochloride 25 mg oral tablet (2 sources)Tricyclic AntidepressantStart: 44-53-0980llqq 1 tablet by mouth every twenty-four hoursAmitriptyline HCl 25 MG 1 tablet at bedtime Orally Once a day for 30 day(s) Jun, ActiveamLODIPine 10 mg oral tablet (20 sources)Dihydropyridine Calcium Channel BlockerStart: 36-64-7310vthx 1 tablet by mouth in the morningamLODIPine (Norvasc) 10 MG tablet Indications: Benign essential hypertension TAKE 1 TABLET BY MOUTHIN THE MORNING 100 tablet 3 07/23/2024 ActiveStart: 55-75-0586ihwe 1 tablet by mouth in the morning amLODIPine (Norvasc) 10 MG tablet Indications: Benign essential hypertension (CMS/HCC) Take 1 tablet (10 mg) by mouth in the morning. 100 tablet 3 07/20/2023 Activeascorbic acid 100 mg/ml oral solution (20 sources)Vitamin CAscorbic Acid (Vitamin C) 500 MG/5ML liquid 1 capsule 1 (one) time each day at the same time. Activeaspirin 81 mg delayed release oral tablet (20 sources)Platelet Aggregation Inhibitor, Nonsteroidal Anti-inflammatory Drug Start: 17-86-2101hmwudlb 81 MG EC tablet 1 (one) time each day at the same time. 2018 ActiveBaby Aspirin Activebaclofen 10 mg oral tablet (20 sources)gamma-Aminobutyric Acid-ergic AgonistStart: 47-11-9832djnp 0.5-1 tablets by mouth three times daily as neededbaclofen (Lioresal) 10 MG tablet TAKE 1/2 (ONE-HALF) TO 1 (ONE) TABLET BY MOUTH THREE TIMES DAILY NEEDED 12/25/2024 Activebiotin 5 mg sublingual tablet (3 sources)Start: 60-12-9434zlzx 1 capsule under the tongue once dailyBiotin 5,000 mcg Tablet, Sublingual Active 1 CAP SUBLINGUAL Daily June 12, 2018 11:00pmBlood Glucose Monitoring Suppl (Blood Glucose Monitor System) w/Device kit (11 sources)Start: 82-93-3210Tievr Glucose Monitoring Suppl (Blood Glucose Monitor System) w/Device kit Indications: Type 2 diabetes mellitus with hyperglycemia, without long-term current use of insulin (HCC) 1 each Daily 1 kit 03/12/2025 Activecalcium citrate 250 mg / cholecalciferol 100 unt oral tablet (20 sources)Vitamin Dtake 1 tablet by mouth once in the morning, then take 1 tablet by mouth once in the eveningCalcium Citrate-Vitamin D (Vishnu-Citrate Plus Vitamin D) 250-2.5 MG-MCG tablet Take 1 tablet by mouthin the morning and 1 tablet in the evening. ActiveCalcium Citrate Plus (3 sources)Calcium Citrate Plus as directed Orally bid Activecarvedilol 25 mg oral tablet (5 sources)alpha-Adrenergic Theodora, beta-Adrenergic BlockerStart: 02-20-2024 End: 55-89-3691rcfg 1 tablet by mouth at mealtimecarvedilol (Coreg) 25 MG tablet Indications: Benign essential hypertension (CMS/HCC) TAKE 1 TABLET BY MOUTH IN THE MORNING AND IN THE EVENING WITH MEALS 60 tablet 10 02/20/2024 04/09/2024 Discontinued (Other)Start: 89-23-1394suyl 1 tablet by mouth in the morning carvedilol (Coreg) 25 MG tablet Indications: Benign essential hypertension (CMS/HCC) Take 1 tablet (25 mg) by mouth in the morning and 1 tablet (25 mg) in the evening. Take with meals. 180 tablet 3 02/22/2023 Activecetirizine hydrochloride 10 mg oral tablet (13 sources)Histamine-1 Receptor Antagonist End: 13-15-6976cckghbrutl (ZyrTEC) 10 MG tablet 1 (one) time each day at the same time. 08/28/2024 Discontinued (Other)cholecalciferol 1.25 mg oral tablet (20 sources)Vitamin Dcholecalciferol (Vitamin D-3) 1.25 MG (59239 UT) tablet Vitamin D3 5000IU Activecholecalciferol (Vitamin D-3) 1.25 MG (16559 UT) tablet Vitamin D3 5000IU 0 ActivecloNIDine hydrochloride 0.1 mg oral tablet (3 sources)Central alpha-2 Adrenergic AgonistStart: 55-30-3804jput 1 tablet by mouth twice dailyClonidine Hcl 0.1 mg tablet Active 1 TAB PO Twice daily June 12, 2018 11:00pmdapagliflozin 5 mg oral tablet (2 sources)Sodium-Glucose Cotransporter 2 InhibitorStart: 04-19-2025 End: 81-69-1512uplzvngvqyakz (Farxiga) 5 MG Indications: Diabetes mellitus type 2 with neurological manifestations(HCC) , Type 2 diabetes mellitus with hyperglycemia, unspecified whether custodial insulin use (HCC) Take 1 tablet (5 mg) by mouth Daily 100 tablet 3 04/23/2025 05/28/2026 Active0.5 ml dulaglutide 3 mg/ml auto-injector (3 sources)GLP-1 Receptor AgonistTrulicity 1.5 MG/0.5ML as directed Subcutaneous As Directed ActiveDULoxetine 60 mg delayed release oral capsule (6 sources)Serotonin and Norepinephrine Reuptake InhibitorStart: 06-13-2018 Duloxetine 60 mg capsule,delayed release(DR/EC) Active June 12, 2018 11:00pmStart: 80-52-9845Lovllzssbi Active June 12, 2018 11:00pm empagliflozin 10 mg oral tablet (5 sources)Sodium-Glucose Cotransporter 2 InhibitorStart: 04-26-2025 End: 72-80-4212wogp 1 tablet by mouth once dailyempagliflozin (Jardiance) 10 MG Indications: Diabetes mellitus type 2 with neurological manifestations (HCC) Take 1 tablet (10 mg) by mouth Daily 30 tablet 11 04/26/2025 04/26/2026 Active furosemide 40 mg oral tablet (20 sources)Loop DiureticStart: 16-95-7728bkgr 1 tablet by mouth in the morning furosemide (Lasix) 40 MG tablet Indications: Benign essential hypertension TAKE 1 TABLET BY MOUTH IN THE MORNING 30 tablet 11 12/13/2024 ActiveStart: 06-13-2018 take 1 tablet by mouth in the morningfurosemide (Lasix) 40 MG tablet Indications: Benign essential hypertension (CMS/HCC) TAKE 1 TABLET (40 MG) BY MOUTH IN THE MORNING. 30 tablet 10 01/18/2024 ActivehydrALAZINE hydrochloride 50 mg oral tablet (5 sources)Arteriolar Vasodilator End: 77-67-9520hzxrYZRUZWX (Apresoline) 50 MG tablet every 12 (twelve) hours. 04/09/2024 Discontinued (Other)hydroCHLOROthiazide 25 mg / losartan potassium 100 mg oral tablet (20 sources)Thiazide Diuretic, Angiotensin 2 Receptor BlockerStart: 02-14-2025 take 1 tablet by mouth once dailylosartan-hydroCHLOROthiazide (Hyzaar) 100-25 MG tablet Indications: Hypertension, unspecified type Take 1 tablet by mouth Daily 100 tablet 2 02/14/2025 ActiveStart: 50-16-5355ojvh 1 tablet by mouth once daily losartan-hydroCHLOROthiazide (Hyzaar) 100-25 MG tablet Indications: Hypertension, unspecified type Take 1 tablet by mouth Daily 100 tablet 2 03/05/2024 ActiveStart: 28-88-1344kjar 1 tablet by mouth once dailylosartan- hydroCHLOROthiazide (Hyzaar) 100-25 MG tablet Indications: Hypertension, unspecified type (CMS/HCC) Take 1 tablet by mouth 1 (one) time each day at the same time. 100 tablet 2 04/26/2023 Active3 ml insulin glargine 100 unt/ml pen injector (7 sources)Insulin AnalogStart: 35-30-2021Htzifb SoloStar 100 UNIT/ML pen Indications: Type 2 diabetes mellitus with hyperglycemia, with long-term current use of insulin ([facility]) INJECT 60 UNITS SUBCUTANEOUSLY (UNDER THE SKIN) IN THE MORNING 15mL 5 04/18/2025 Activeisopropyl alcohol 0.7 ml/ml medicated pad (11 sources)Start: 40-59-8432Kjfbwpe Swabs (Alcohol Prep) 70 % pads Indications: Type 2 diabetes mellitus with hyperglycemia, without long-term current use of insulin ([facility]) 1 Pad Daily 100 each 3 03/12/2025 Activeliothyronine sodium 0.025 mg oral tablet (20 sources)l-TriiodothyronineStart: 04-26-2023 End: 33-43-5643ubko 0.5 tablet by mouth twice dailyliothyronine (Cytomel) 25 MCG tablet Indications: Hypothyroidism, unspecified type 0.5 tablet on anempty stomach Orally two times daily. D.A.W. as Sigma or [employer] ONLY for 90 days 200 tablet 3 05/01/2025 ActiveStart: 85-21-5042irlt 1 tablet by mouth once dailyLiothyronine 25 mcg tablet Active 0.5 TAB PO Daily June 12, 2018 11:00pmLiothyronine Sodium 25 MCG as directed Orally bid Activeloratadine 10 mg oral tablet (20 sources)Start: 79-14-8953rnvt 1 tablet by mouth once daily in the morning Allergy Relief 10 MG tablet Indications: Allergy, initial encounter TAKE 1 TABLET BY MOUTH EVERY MORNING 30 tablet 11 03/20/2024 ActiveStart: 03-11-2023 End: 05-36-1099tpzy 1 tablet by mouth in the morningloratadine (Claritin) 10 MG tablet Indications: Allergy, initial encounter Take 1 tablet (10 mg) bymouth in the morning. 30 tablet 11 03/11/2023 03/10/2024 ActiveStart: 68-91-3063vluz 1 tablet by mouth once dailyLoratadine 10 mg Capsule Active 1 TAB PO Daily June 12, 2018 11:00pmlosartan potassium 100 mg oral tablet (6 sources)Angiotensin 2 Receptor BlockerStart: 04-93-4396svid 1 tablet by mouth once dailyLosartan 100 mg tablet Active 1 TAB PO Daily June 12, 2018 11:00pmlovastatin 20 mg oral tablet (20 sources)HMG-CoA Reductase InhibitorStart: 81-05-9199tkyz 1 tablet by mouth once dailylovastatin (Mevacor) 20 MG tablet Indications: 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HHS-HCC) TAKE 1 TABLET BY MOUTH ONCE DAILY 100 tablet 3 08/16/2024 ActiveStart: 41-21-6684wwdj 1 tablet by mouth once dailylovastatin (Mevacor) 20 MG tablet Indications: Congenital renal artery anomaly TAKE 1 TABLET BY MOUTH ONCE DAILY 30 tablet 10 09/21/2023 Activemelatonin 5 mg oral capsule (6 sources)Start: 74-09-4669Vviskombo 5 mg Capsule Active June 12, 2018 11:00pmStart: 35-58-5583Axrfeqhui Active June 12, 2018 11:00pmMelatonin 5 MG Orally qhs ActivemetFORMIN hydrochloride 1000 mg oral tablet (20 sources)BiguanideStart: 00-67-9640fuoe 1 tablet by mouth in the morning metFORMIN (Glucophage) 1000 MG tablet Indications: Diabetes mellitus type 2 with neurological manifestations (HCC) TAKE 1 TABLET BY MOUTH IN THE MORNING AND 1 TABLET IN THE EVENING. TAKE WITH MEALS 60 tablet 11 12/13/2024 ActiveStart: 18-64-5164ywzc 1 tablet by mouth in the morningmetFORMIN (Glucophage) 1000 MG tablet Indications: 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 TAKE WITH MEALS. 60 tablet 10 01/18/2024 Active methylPREDNISolone (2 sources)CorticosteroidStart: 06-06-2025 End: 04-06-4040gylttoDRVWGTXhrnrd (Medrol Dospak) 4 MG tablets Indications: Acute myofascial strain of lumbar region, initial encounter Follow schedule on package instructions 21 tablet 06/06/2025 06/13/2025 Kppbmo83 hr metoprolol succinate 50 mg extended release oral tablet (9 sources)beta-Adrenergic BlockerStart: 24-32-6935chno 1 tablet by mouth twice dailyMetoprolol Succinate 50 mg tablet extended release 24 hr Active 1 TAB PO Twice daily June 12, 2018 11:00pmtake 2 tablets by mouth every twenty-four hoursToprol XL 50 MG 2 tablet Orally Once a day ActiveMetoprolol Succinate ActiveMultivitamin preparation (3 sources)Multivitamin Activenaproxen 500 mg oral tablet (7 sources)Nonsteroidal Anti-inflammatory DrugStart: 04-09-2024 End: 34-75-9510shqb 1 tablet by mouth in the morningnaproxen (Naprosyn) 500 MG tablet Indications: Iliopsoas bursitis of right hip Take 1 tablet (500 mg) by mouth in the morning and 1 tablet (500 mg) in the evening. Take with meals. Do all this for 14days. 28 tablet 04/09/2024 04/23/2024 Active End: 28-31-3980zyffdoff (Naprosyn) 500 MG tablet every 12 (twelve) hours. 04/09/2024 Discontinued (Other)omeprazole 20 mg delayed release oral capsule (20 sources)Proton Pump InhibitorStart: 43-00-3170qoqt 1 capsule by mouth in the morningomeprazole (PriLOSEC) [address] capsule Indications: Gastroesophageal reflux disease without esophagitis TAKE 1 CAPSULE BY MOUTH IN THE MORNING 30 capsule 11 12/13/2024 ActiveStart: 14-42-6545kbmu 1 capsule by mouth in the morningomeprazole (PriLOSEC) [address] capsule Indications: Gastroesophageal reflux disease without esophagitis TAKE 1 CAPSULE (20 MG) BY MOUTH IN THE MORNING. 30 capsule 10 01/18/2024 Activeondansetron 8 mg oral tablet (5 sources)Serotonin-3 Receptor AntagonistStart: 02-08-2025 End: 02-57-0996esqp 1 tablet by mouth every eight hours as needed for nausea and vomiting and nausea and nauseaondansetron (Zofran) 8 MG tablet Indications: Nausea Take 1 tablet (8 mg) by mouth every 8 (eight) hours if needed for nausea or vomiting for up to 7 days 20 tablet 02/08/2025 02/15/2025 Active microencapsulated potassium chloride 20 meq extended release oral tablet (20 sources)Start: 84-54-3546Qfcudduxj Chloride 20 mEq tablet,ER particles/crystals Active 1 PACKET PO Daily June 12, 2018 11:00pmStart: 30-04-7003Ppioyzkkj Chloride Active 1 PACKET PO Daily June 12, 2018 11:00pm pramipexole dihydrochloride 0.75 mg oral tablet (3 sources)Nonergot Dopamine AgonistStart: 86-11-5001fmkj 1 tablet by mouth in the morningpramipexole (Mirapex) 0.75 MG tablet Indications: Chronic pain syndrome Take 1 tablet (0.75 mg) by mouth in the morning. 30 tablet 2 07/20/2023 Active End: 59-33-8749cvvqymvocof (Mirapex) 0.5 MG tablet 1 (one) time each day at the same time 01/14/2025 Discontinued (Therapy completed)pregabalin 100 mg oral capsule (6 sources)Start: 28-49-5191bsvi 1 tablet by mouth twice dailyPregabalin 100 mg capsule Active 1 TAB PO Twice daily June 12, 2018 11:00pmQUEtiapine 50 mg oral tablet (20 sources)Atypical AntipsychoticStart: 48-79-6386rmif 1 tablet by mouth once dailyQUEtiapine (SEROquel) 50 MG tablet Indications: Insomnia, unspecified type TAKE 1 TABLET BY MOUTH ONCE DAILY 30 tablet 10 09/17/2024 ActiveStart: 07-04-7539lymk 1 tablet by mouth once dailyQUEtiapine (SEROquel) 50 MG tablet Indications: Insomnia, unspecified type TAKE 1 TABLET BY MOUTH ONCE DAILY 30 tablet 10 10/20/2023 ActiverOPINIRole 2 mg oral tablet (12 sources)Nonergot Dopamine AgonistStart: 01-18-2024 End: 82-37-9857esoj 0.5 tablet by mouth at bedtimerOPINIRole (Requip) 2 MG tablet Indications: Restless Leg Syndrome Take 0.5 tablets (1 mg) by mouthat bedtime 30 tablet 2 01/18/2024 08/28/2024 Discontinued (Other)tiZANidine 4 mg oral tablet (2 sources)Central alpha-2 Adrenergic AgonistStart: 06-06-2025 End: 52-05-4022aumr 1 tablet by mouth every eight hours for muscle spasms tiZANidine (Zanaflex) 4 MG tablet Indications: Acute myofascial strain of lumbar region, initial encounter Take 1 tablet (4 mg) by mouth every 8 (eight) hours if needed for muscle spasms 30 tablet 06/06/2025 06/16/2025 ActivetraMADol hydrochloride 50 mg oral tablet (20 sources)Opioid AgonistStart: 01-04-2025 End: 86-73-0473sdca 1 tablet by mouth every six hours for paintraMADol (Ultram) 50 MG tablet Indications: Failed back syndrome Take 1 tablet (50 mg) by mouth every 6 (six) hours if needed for severe pain 120 tablet 1 05/01/2025 06/30/2025 ActiveStart: 03-05-2024 End: 05-64-6871plpp 1 tablet by mouth every six hours for paintraMADol (Ultram) 50 MG tablet Indications: Failed back syndrome Take 1 tablet (50 mg) by mouth every 6 (six) hours if needed for severe pain 120 tablet 12/03/2024 01/02/2025 ActiveStart: 60-91-2109xzuy 1 tablet by mouth every six hours for paintraMADol (Ultram) 50 MG tablet Indications: Failed back syndrome Take 1 tablet (50 mg) by mouth every 6 (six) hours if needed for severe pain 120 tablet 0 09/29/2023 ActiveStart: 06-13-2018 End: 24-35-9557dwdu 1 tablet by mouth every six hours for paintraMADol (Ultram) 50 MG tablet Indications: Failed back syndrome Take 1 tablet (50 mg) by mouth every 6 (six) hours if needed for severe pain 120 tablet 0 08/29/2023 09/29/2023 Discontinued (Reorder)take 1 tablet by mouth every twenty-four hourstraMADol HCl 50 MG 1 tablet as needed Orally Once a day ActiveTrulicity 4.5 MG/0.5ML solution auto-injector (13 sources)Start: 08-23-2024 End: 78-10-5960Mdffadlpu 4.5 MG/0.5ML solution auto-injector Indications: Diabetes mellitus type 2 with neurological manifestations (HCC) INJECT CONTENTS OF 1 SYRINGE SUBCUTANEOUSLY ONCE WEEKLY 2 mL 10 08/23/2024 02/08/2025 DiscontinuedStart: 89-60-1468Ymgnceula 4.5 MG/0.5ML solution auto-injector Indications: Diabetes mellitus type 2 with neurological manifestations (HCC) INJECT CONTENTS OF 1 SYRINGE SUBCUTANEOUSLY ONCE WEEKLY 2 mL 08/23/2024 Ac tiveStart: 14-53-1544Eafgbcrpg 4.5 MG/0.5ML solution auto-injector Indications: 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) INJECT CONTENTS OF 1 SYRINGE SUBCUTANEOUSLY ONCE WEEKLY 2 mL 08/23/2024 Active Trulicity 4.5 MG/0.5ML solution pen-injector (10 sources)Start: 99-40-3901Ttcjtndii 4.5 MG/0.5ML solution pen-injector Indications: 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) INJECT CONTENTS OF 1 SYRINGE SUBCUTANEOUSLY ONCE A WEEK 2 mL 08/23/2023 ActiveVitamin D3 (3 sources)Vitamin D3 Activevitamin e d-alpha 400 unt oral capsule (20 sources)alpha tocopherol (Vitamin E) 400 units capsule 1 capsule. Active Vitamin E 400 UNIT (3 sources)take 1 capsule by mouth once dailyVitamin E 400 UNIT 1 capsule Orally Once a day Activezolpidem tartrate 6.25 mg extended release oral tablet (13 sources)gamma-Aminobutyric Acid-ergic AgonistStart: 11-18-2023 End: 94-25-4996nkdqpxvv CR (Ambien CR) 6.25 MG ER tablet Indications: Primary insomnia Take 1 tablet (6.25 mg) by mouth as needed at bedtime for sleep Do not crush, chew, or split. 30 tablet 2 11/18/2023 08/28/2024Discontinued (Other) Start: 39-25-5298kqqembwj CR (Ambien CR) 6.25 MG ER tablet Indications: Primary insomnia Take 1 tablet (6.25 mg) by mouth as needed at bedtime for sleep Do not crush, chew, or split. 30 tablet 2 08/04/2023 Activezonisamide 50 mg oral capsule (11 sources)Anti-epileptic AgentStart: 44-31-1982oyxp 1 capsule by mouth at bedtimezonisamide (Zonegran) 50 MG capsule Take 50 mg by mouth at bedtime 02/13/2025 Active Completed/Discontinued Medications MedicationDrug Class(es)DatesSig (Normalized)Sig (Original)cefTRIAXone (4 sources)Cephalosporin AntibacterialStart: 25-90-9032Zdycrger 500 mg Feb, 1000 mgStart: 59-30-6197Ziatggos 500 mg Jul, 1 grmeszopiclone 3 mg oral tablet (2 sources) End: 54-62-3182yinqdzxdbnc (Lunesta) 3 MG tablet 1 (one) time each day at the same time 01/14/2025 Discontinued (Other)3 ml insulin detemir 100 unt/ml pen injector (20 sources)Insulin AnalogStart: 04-17-2025 End: 66-23-4062tkrijru detemir (Levemir FlexTouch) 100 UNIT/ML pen Indications: Diabetes mellitus type 2 with neurological manifestations (HCC) Inject 60 Units under the skin in the morning. 3 mL 11 04/17/2025 04/17/2025 Discontinued (Availability)Start: 29-54-6976Xgidgax Detemir U-100 100 unit/mL (3 mL) insulin pen Active 0 .ROUTE .COMPLEX June 12, 2018 11:00pm as directed2 ml orphenadrine citrate 30 mg/ml injection (20 sources)Muscle RelaxantStart: 01-14-2025 End: 20-07-1154yaqzjriynkvk (Norflex) injection 60 mgStart: 01-14-2025 End: 82-96-4157tucyez 60 mg by intramuscular injection once60 mg, Intramuscular, Once, On Tue01/14/25 at 1330, For 1 doseStart: 10-27-2023 End: 71-17-0854igyg 1 tablet by mouth twice daily as [...] Discontinued (Therapy completed) Problems Active Problems Problem ClassificationProblemDateDocumented DateEpisodic/Chronic Administrative/social admission (4 sources)Patient encounter status; Translations: [Other specified counseling] 88-03-4279WssdwmlwWbqzptw and circulatory congenital anomalies (20 sources)Congenital anomaly of renal blood vessel; 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]Onset: 99-14-873960451704-86-5208Gwklqrv Diabetes mellitus with complications (20 sources)Disorder of nervous system due to type 2 diabetes mellitus; Translations: [Type 2 diabetes mellituswith other diabetic neurological complication]Onset: 364443-02-6115RinonscQscsgxso mellitus without complication (20 sources)Type 2 diabetes mellitus without complications; Translations: [Diabetes mellitus]Onset: 402361-83-7802VzbqhzxInkqbixde of lipid metabolism (20 sources)Hyperlipidemia, unspecified; Translations: [Mixed hyperlipidemia] Onset: 586597-75-6308PuojxdmUhuxzmitpw disorders (20 sources)Gastro-esophageal reflux disease without esophagitis; Translations: [Gastroesophageal reflux disease]Onset: 320700-40-4129GjqdlirQwkxceldr hypertension (20 sources)Essential (primary) hypertension; Translations: [Benign essential hypertension]Onset: 21-04-9729SdgyqytCoxeage and fatigue (20 sources)Fatigue; Translations: [Chronic fatigue, unspecified]Onset: 845669-14-6258OtlejftAgwpuexgym disorders (20 sources)Other primary ovarian failure; Translations: [Decreased estrogen level]Onset: 15-95-3753FcvroszFlgepsqhqnujm mental health disorders (6 sources)Chronic insomnia; Translations: [Psychophysiologic insomnia]Chronic Nausea and vomiting (6 sources)Nausea; Translations: [Nausea]39-01-3577DyhjjowyItssm diseases of veins and lymphatics (20 sources)Venous hypertension of lower limb; Translations: [Chronic venous hypertension (idiopathic) without complications of unspecified lower extremity] Onset: 228218-97-7329JfdnyfhDwcgl eye disorders (20 sources)Bilateral vitreous floaters; Translations: [Other vitreous opacities, bilateral]Onset: 028751-98-1550QdqocnjOhexs hereditary and degenerative nervous system conditions (1 source)Restless legs syndrome; Translations: [RESTLESS LEGS SYNDROME]Onset: 56-65-6113OjhfnggDkrnl hereditary and degenerative nervous system conditions (20 sources)Restless legs; Translations: [Restless legs syndrome]Onset: 895775-27-8898VzpybfsLxbiv lower respiratory disease (3 sources)Disorder of lung; Translations: [Other disorders of lung]Episodic Other nervous system disorders (1 source)Polyneuropathy, unspecified; Translations: [POLYNEUROPATHY UNSPECIFIED]Onset: 30-05-8910CzgxmsoEqvst nervous system disorders (20 sources)Chronic pain syndrome; Translations: [Chronic pain syndrome]Onset: 652962-07-7579ExlugjyKrzlx nervous system disorders (20 sources)Difficulty walking; Translations: [Difficulty in walking, not elsewhere classified]Onset: 892500-77-5699JtjzoxuVnmqu nervous system disorders (20 sources)Polyneuropathy; Translations: [Polyneuropathy, unspecified]Onset: 553807-73-3684HzbnjhkRnrvu nutritional; endocrine; and metabolic disorders (6 sources)Obese class II; Translations: [Body mass index (BMI) 35.0-35.9, adult]ChronicOther nutritional; endocrine; and metabolic disorders (1 source)Body mass index (BMI) 35.0-35.9, adultOnset: 07-02-2021 Resolved: 10-26-8054UpasmqbRrghp nutritional; endocrine; and metabolic disorders (20 sources)Body mass index 30+ - obesity; Translations: [Obesity, unspecified] Onset: 392537-02-4472MypuwodNxdal nutritional; endocrine; and metabolic disorders (20 sources)Lipoprotein deficiency disorder; Translations: [Lipoprotein deficiency]Onset: 048536-68-9619WzwbnmpPzfqf nutritional; endocrine; and metabolic disorders (20 sources)Obesity caused by energy imbalance; Translations: [Morbid (severe) obesity due to excess calories]Onset: 776596-78-7877ByymprlDuksl upper respiratory disease (20 sources)Allergic rhinitis; Translations: [Other allergic rhinitis]Onset: 428990-07-9732PmdglqkXfghzucbfe and visceral atherosclerosis (20 sources)Peripheral vascular disease; Translations: [Peripheral vascular disease, unspecified]Onset: 801588-51-5881VdcwezeTrikycwd codes; unclassified (20 sources)Obstructive sleep apnea syndrome; Translations: [Obstructive sleep apnea (adult) (pediatric)]Onset: 552965-10-9271MaofbzsIqmkxscc codes; unclassified (6 sources)Obstructive sleep apnea (adult) (pediatric); Translations: [Obstructive sleep apnea (adult)(pediatric)]Onset: 07-02-2021 Resolved: 63-36-8406BqfldasLrsasuns codes; unclassified (1 source)Obstructive sleep apnea (adult)(pediatric); Translations: [Obstructive sleep apnea (adult) (pediatric)]Onset: 68-73-5187TbuxqpcRbtnylyz codes; unclassified (20 sources)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 airway pressure ventilation; Translations: [Dependence on other enabling machines and devices]Onset: 581563-29-4510NkotdccIqjgfvbk codes; unclassified (20 sources)Initial insomnia; Translations: [Other insomnia]Onset: 12-14-2022 01-41-9270XutvpimEezmzigjbiv; intervertebral disc disorders; other back problems (20 sources)Spondylosis without myelopathy or radiculopathy, lumbar region; Translations: [Other intervertebraldisc degeneration, lumbar region]Onset: 06-63-5369HmrmxsvPylykacmscc; intervertebral disc disorders; other back problems (17 sources)Spinal stenosis, lumbar region without neurogenic claudication; Translations: [Radiculopathy, lumbar region]Onset: 70-67-5410DynbrdnvAlqeiuo and strains (2 sources)Lower back injury; Translations: [Strain of muscle, fascia and tendon of lower back, initial encounter]68-67-0226PidmrbhsSdvzgqdzqbx injury; contusion (6 sources)Contusion of lower back and pelvis, initial encounter; Translations: [Injury of conjunctiva and corneal abrasion without foreign body, right eye, initial encounter]Onset: 98-19-2961LqsgilmiYmoevfd disorders (2 sources)Hypothyroidism; Translations: [Hypothyroidism, unspecified]07-02-2024 ChronicUnclassified (3 sources)LOW BACK PAIN, UNSPECIFIED; Translations: [LOW BACK PAIN, UNSPECIFIED]Onset: 94-70-7977Efzoczxuvylk (2 sources)Medication Problem; Translations: [Medication Problem]Onset: 43-74-8258Xzfbdtbqycfq (1 source)Eye PainOnset: 04-85-3811Hnezbwlepgla (1 source)right eye issueOnset: 03-18-2024 Past or Other Problems Problem ClassificationProblemDateDocumented DateEpisodic/ChronicBlindness and vision defects (20 sources)Diplopia; Translations: [Diplopia]Onset: EpisodicConditions associated with dizziness or vertigo (20 sources)Vertigo; Translations: [Dizziness and giddiness]Onset: 10-27-2023 09-45-9394OzbtuoxyQ Codes: Fall (1 source)Unspecified fall, initial encounter; Translations: [UNSPECIFIED FALL INITIAL ENCOUNTER]Onset: 75-84-5468FlryhkqeNminkits of upper limb (20 sources)Fracture of radial neck; Translations: [Displaced fracture of neck of unspecified radius, initial encounter for closed fracture]Onset: 03-11-2023 94-52-8470TvhhzthcGdyk disorders (20 sources)Mood disordersOnset: Other aftercare (1 source)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; Translations: [USP CURRENT USE OF INSULIN]Onset: 94-10-9252EofmqrxcCmfil aftercare (1 source)terminal superintendent (current) use of aspirin; Translations: [USP CURRENT USE OF ASPIRIN]Onset: 87-85-2460OgtmxcstXkntb aftercare (1 source)terminal superintendent (current) use of oral hypoglycemic drugs; Translations: [USP USE ORAL HYPOGLYCEMIC DX]Onset: 02-91-9111TngewkhnFncbw aftercare (1 source)Other ocean transportation intermediary (current) drug therapy; Translations: [OTH USP CURRENT DRUG THERAPY]Onset: 30-92-4000SiblyqxnPlcla aftercare (20 sources)Long-term current use of insulin; Translations: [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]Onset: 295046-98-5547IsjehtvpZeggd and unspecified benign neoplasm (20 sources)Adenomatous polyp of colon ; Translations: [Benign neoplasm of ascending colon]Onset: 432716-64-3224TbxzotdmPalxs and unspecified benign neoplasm (20 sources)History of polyp of colon; Translations: [Personal history of colonic polyps]Onset: 128001-13-6246OdktdrflNibyb and unspecified benign neoplasm (20 sources)Benign neoplasm of colon; Translations: [Benign neoplasm of colon, unspecified]Onset: 329273-96-8014TldnsqvyInqat bone disease and musculoskeletal deformities (20 sources)Osteopenia; Translations: [Other specified disorders of bone density and structure, unspecified site]Onset: 082808-19-2652FbhnjdxdDjsqy connective tissue disease (1 source)Arthrodesis status; Translations: [ARTHRODESIS STATUS]Onset: 16-27-6854XueeugfhIoxjq connective tissue disease (20 sources)Trigger thumb of left hand; Translations: [Trigger thumb, left thumb]Onset: 392639-24-8250ZvrcuvgaQnpzf connective tissue disease (20 sources)Acquired trigger finger; Translations: [Trigger finger, unspecified finger]Onset: 286982-99-2090XsfwrkumKgqvm connective tissue disease (2 sources)Iliopsoas bursitis of right hip; Translations: [Other bursitis of hip, right hip]37-99-3719GsqbgkwhNmkfo diseases of veins and lymphatics (20 sources)Peripheral venous insufficiency; Translations: [Venous insufficiency (chronic) (peripheral)]Onset: 439134-68-9120TitodvkpDudfb eye disorders (20 sources)Lower eyelid ectropion; Translations: [Unspecified ectropion of unspecified eye, unspecified eyelid]Onset: 638939-35-2794PbisqighSclel eye disorders (20 sources)Epiphora; Translations: [Unspecified epiphora, unspecified side] Onset: 896452-78-9949HgblunloUnzrg injuries and conditions due to external causes (20 sources)History of fall; Translations: [History of falling]Onset: 10-02-2015 40-73-7545TkshiozsCopuq non-traumatic joint disorders (20 sources)Pain in elbow; Translations: [Pain in unspecified elbow]Onset: 310013-98-2966RlvssxdnYfsaw nutritional; endocrine; and metabolic disorders (20 sources)Cholesterol level - finding; Translations: [Lipoprotein deficiency] Onset: 12-14-2022 Resolved: 240371-58-7944CztpxhrGtchpdbl codes; unclassified (1 source)Insomnia, unspecified; Translations: [INSOMNIA UNSPECIFIED]Onset: 59-88-0112KfirtoesXxqlkmfo codes; unclassified (2 sources)Localized edema; Translations: [Localized edema]Onset: 09-28-2022 EpisodicResidual codes; unclassified (20 sources)Insomnia; Translations: [Insomnia, unspecified]Onset: 06-10-2015 68-18-1394ZtvmdekyXrdxlino codes; unclassified (20 sources)Family history of malignant neoplasm of gastrointestinal tract; Translations: [Family history of malignant neoplasm of digestive organs]Onset: 859758-40-0067YbmanxszMlckrolrf and history of mental health and substance abuse codes (20 sources)Ex-smoker; Translations: [Personal history of nicotine dependence] Onset: 103803-12-8775PrgpywonCnses and face fractures (20 sources)Closed fracture of orbital floor (blow-out); Translations: [Fracture of orbital floor, unspecified side, initial encounter for closed fracture] Onset: 942967-16-9948SicqlikxFdmrhug disorders (20 sources)Sick-euthyroid syndrome; Translations: [Sick-euthyroid syndrome] Onset: 919686-20-5200NahrajfhDkksksrxfpcm (1 source)LOW BACK PAIN, UNSPECIFIED; Translations: [LOW BACK PAIN, UNSPECIFIED] Onset: 10-30-2021 Results Test NameValueInterpretationReference RangeFacilityALBUMIN, RANDOM URINE W/CREATININEon 03-06-0449FRGJRXX, URINE0.3 mg/dLNormalSee Note:[facility] Comment on above:Result Comment: Reference Range: Reference Range Not establishedPerformed By: #### 6517, 23668, 7600 #### [facility] [address], [address] [place] [phone] Decorative Cutting Machine Tender: Cezar Singh MDALBUMIN/CREATININE RATIO, RANDOM URINE8 mg/g creatNormal<30[facility] DiagnosticsComment on above:Result Comment: The ADA defines abnormalities in albumin excretion as follows: Albuminuria Category Result (mg/g creatinine) Normal to Mildly increased <30 Moderately increased 30-299 Severely increased > OR = 300 The ADA recommends that at least two of three specimens collected within a 3-6 month period be abnormal before considering a patient to be within a diagnostic category.Performed By: #### 6517, 64020, 7600 #### [facility] [place] [address] [employer]or[employer] Cutting Machine Tender: Cezar Singh MDCreatinine (U) [Mass/Vol]40 mg/zITscckf34-227 [facility]osticsComment on above:Performed By: #### 6517, 81189, 7600 #### [facility] of [place] [address] [employer]or[employer] Cutting Machine Tender: Cezar RAZOOMPREHENSIVE METABOLIC PANELon 2025 Albumin [Mass/Vol]4.2 g/dLNormal3.6-5.1Quest DiagnosticsComment on above: Performed By: #### 6517, 89882, 0 #### [facility] of [place] [address] [employer]ative Cutting Machine Tender: Cezar Singh MDAlbumin/Globulin [Mass ratio]1.6 {ratio}Normal 1.0-2.5Quest DiagnosticsComment on above:Performed By: #### 6517, 33739, 7600 #### [facility] of [place] [address] [employer]orative Cutting Machine Tender: Cezar Singh MDALP [Catalytic activity/Vol]85 U/TYvsisu49-200 [facility]osticsComment on above:Performed By: #### 6517, 04433, 7600 #### [facility] of [place] [address] Decorative Cutting Machine Tender: Cezar Singh MDALT [Catalytic activity/Vol]12 U/LNormal6-29 [facility]osticsComment on above:Performed By: #### 6517, 16147, 7600 #### [facility] of [place] [address] Decorative Cutting Machine Tender: Cezar Singh MDAST [Catalytic activity/Vol]13 U/NKfrypy56-04 [facility]osticsComment on above:Performed By: #### 6517, 72923, 7600 #### [facility] of [address], [address] [place] [address] Decorative Cutting Machine Tender: Cezar Singh MDBilirubin [Mass/Vol]0.4 mg/dLNormal0.2-1.2 [facility]osticsComment on above:Performed By: #### 6517, 31972, 7600 #### [facility] of [address], [address] [place] [address] Decorative Cutting Machine Tender: Cezar Singh MDBUN/CREATININE RATIOSEE NOTE:Normal6-22Quest DiagnosticsComment on above:Result Comment: Not Reported: BUN and Creatinine are within reference range.Performed By: #### 6517, 76044, 7600 #### [facility] of [address], [address] [place] [address] Decorative Cutting Machine Tender: Cezar Singh MDCalcium [Mass/Vol]9.4 mg/dLNormal8.6-10.4Quest DiagnosticsComment on above:Performed By: #### 6517, 13132, 7600 #### [facility] [place] [address] Decorative Cutting Machine Tender: Cezar Singh MDChloride [Moles/Vol]102 mmol/SIgcvuc36-374 [facility]osticsComment on above:Performed By: #### 6517, 44838, 7600 #### [facility] of [place] [address] Decorative Cutting Machine Tender: Cezar Singh MDCO2 [Moles/Vol]28 mmol/GWxonog54-59Aplxg DiagnosticsComment on above:Performed By: #### 6517, 05648, 7600 #### [facility] of [place] [address] Decorative Cutting Machine Tender: Cezar RAZOreatinine [Mass/Vol]0.90 mg/dLNormal0.60-0.95 [facility]osticsComment on above:Performed By: #### 6517, 00772, 0 #### [facility] [address], [address] [place] [address] Decorative Cutting Machine Tender: Cezar Singh MDGFR/1.73 sq M.predicted among non-blacks MDRD (S/P/Bld) [Vol rate/Area]65 mL/min/{1.73_m2}Normal> OR = 60[facility] Comment on above:Performed By: #### 6517, , 0 #### [facility] [address], [address] [place] [address] Decorative Cutting Machine Tender: Cezar Singh MDGlobulin (S) [Mass/Vol]2.7 g/dLNormal1.9-3.7 [facility]osticsComment on above:Performed By: #### 6517, , 0 #### [facility] [address], [address] [place] [address] Decorative Cutting Machine Tender: Cezar Singh MDGlucose [Mass/Vol]129 mg/jLLplo24-50Mtmbf DiagnosticsComment on above:Result Comment: Fasting reference interval For someone without known diabetes, a glucose value >125 mg/dL indicates that they may have diabetes and this should be confirmed with a follow-up test.Performed By: #### 6517, , 0 #### [facility] [address], [address] [place] [address] Decorative Cutting Machine Tender: Cezar Singh MDPotassium [Moles/Vol]4.0 mmol/LNormal3.5-5.3 [facility]osticsComment on above:Performed By: #### 6517, , 0 #### [facility] [place] [address] Decorative Cutting Machine Tender: Cezar Singh MDProtein [Mass/Vol]6.9 g/dLNormal6.1-8.1Quest DiagnosticsComment on above:Performed By: #### 6517, , 0 #### [facility] [address], [address] [place], [place] [address] Decorative Cutting Machine Tender: Cezar PINEDAodium [Moles/Vol]142 mmol/ICfspuo954-428Sppth DiagnosticsComment on above:Performed By: #### 6517, 47410, 7600 #### [facility] [address], [address] [place] [address] Decorative Cutting Machine Tender: Cezar Singh MDUrea nitrogen [Mass/Vol]17 mg/dLNormal7-25 [facility]osticsComment on above:Performed By: #### 6517, 33408, 7600 #### [facility] [address], [address] [place] [address] Decorative Cutting Machine Tender: Cezar Singh MDLIPID PANEL, [facility] 29-78-2545Frhzadjpoqt [Mass/Vol]154 mg/dLNormal<200Quest DiagnosticsComment on above:Order Comment: FASTING:YES FASTING: YESPerformed By: #### 6517, 06872, 7600 #### [facility] [address], [address] [place] [address] Decorative Cutting Machine Tender: Cezar Singh MDCholesterol in HDL [Mass/Vol]55 mg/dLNormal> OR = 50Quest DiagnosticsComment on above:Order Comment: FASTING:YES FASTING: YESPerformed By: #### 6517, 61721, 7600 #### [facility] [place] [address] Decorative Cutting Machine Tender: Cezar Singh MDCholesterol in LDL [Mass/Vol]73 mg/dLNormal [facility]osticsComment on above:Order Comment: FASTING:YES FASTING: YESResult Comment: Reference range: <100 Desirable range <100 mg/dL for primary prevention; <70 mg/dL for patients with CHD or diabetic patients with > or = 2 CHD risk factors. LDL-C is now calculated using the Jefe calculation, which is a validated novel method providing better accuracy than the Friedewald equation in the estimation of LDL-C. Tien SS et al. ARON. 2013;310(19): 2213-5364 (http://education.HackerHAND/faq/RFS732)Performed By: #### 6517, 75455, 7600 #### [facility] [address], [address] [place] [address] Decorative Cutting Machine Tender: Cezar Gongsterodwain.total/Cholesterol in HDL [Mass ratio]2.8 {ratio}Normal<5.0Quest DiagnosticsComment on above:Order Comment: FASTING:YES FASTING: YESPerformed By: #### 6517, 16766, 7600 #### [facility] [address], [address] [place] [address] Decorative Cutting Machine Tender: Cezar COTTER HDL UATRPMAIXKL50 mg/dL (calc)Normal<130 [facility]osticsComment on above:Order Comment: FASTING:YES FASTING: YESResult Comment: For patients with diabetes plus 1 major ASCVD risk factor, treating to a non-HDL-C goal of <100 mg/dL (LDL-C of <70 mg/dL) is considered a therapeutic option.Performed By: #### 6517, 12766, 7600 #### [facility] [address], [address] [place] [address] Decorative Cutting Machine Tender: Cezar Singh MDTriglyceride [Mass/Vol]191 mg/dLHigh<150Quest DiagnosticsComment on above:Order Comment: FASTING:YES FASTING: YESPerformed By: #### 6517, 42458, 7600 #### [facility] [address], [address] [place] [address] Decorative Cutting Machine Tender: Cezar Singh MDLaboratory - Chemistry and Chemistry - challenge 90-77-9899Ivszknp [Mass/Vol]4.2 g/dL3.6 - 5.1 g/dLNORI Healthcare Albumin/Globulin [Mass ratio]1.6 {ratio}[facility] HealthcareALP [Catalytic activity/Vol]85 U/L37 - 153 U/LNOMS HealthcareALT [Catalytic activity/Vol]12 U/L 6 - 29 U/LNOMS HealthcareAST [Catalytic activity/Vol]13 U/L10 - 35 U/LNOMS HealthcareBilirubin [Mass/Vol]0.4 mg/dL0.2 - 1.2 mg/dLNOMS HealthcareCalcium [Mass/Vol]9.4 mg/dL8.6 - 10.4 mg/dLNORI HealthcareChloride [Moles/Vol]102 mmol/L 98 - 110 mmol/LNOMS HealthcareCO2 [Moles/Vol]28 mmol/L20 - 32 mmol/LNOMS HealthcareCreatinine [Mass/Vol]0.9 mg/dL0.60 - 0.95 mg/dLNORI HealthcareGFR/1.73 sq M.predicted among non-blacks MDRD (S/P/Bld) [Vol rate/Area]65 mL/min/{1.73_m2}> OR = 60 mL/min/1.44q6LENY HealthcareGlobulin (S) [Mass/Vol]2.7 g/dLNORI HealthcareGlucose [Mass/Vol]129 mg/jHBgua53 - 99 mg/dLNORI Healthcare Comment on above: Fasting reference interval For someone without known diabetes, a glucose value >125 mg/dL indicates that they may have diabetes and this should be confirmed with a follow-up test. Potassium [Moles/Vol]4 mmol/L3.5 - 5.3 mmol/LNOMS HealthcareProtein [Mass/Vol] 6.9 g/dL6.1 - 8.1 g/dLNORI HealthcareSodium [Moles/Vol]142 mmol/L135 - 146 mmol/LNOMS HealthcareUrea nitrogen [Mass/Vol]17 mg/dL7 - 25 mg/dLNOR[facility] Urea nitrogen/Creatinine [Mass ratio]SEE NOTE:[facility] HealthcareComment on above: Not Reported: BUN and Creatinine are within reference range. Lipid 1996 panelon 86-50-9498Xdhprrlqysy [Mass/Vol]154 mg/dLNINF - 200 mg/dLNORI HealthcareCholesterol in HDL [Mass/Vol]55 mg/dL> OR = 50NOWright [facility] Cholesterol in LDL [Mass/Vol]73 mg/dLmg/dL (calc)[facility] HealthcareComment on above:Reference range: <100 Desirable range <100 mg/dL for primary prevention; <70 mg/dL for patients with CHD or diabetic patients with > or = 2 CHD risk factors. LDL-C is now calculated using the Tien-Bell calculation, which is a validated novel method providing better accuracy than the Friedewald equation in the estimation of LDL-C. Tien SS et al. ARON. 2013;310(19): 1916-4324 (http://education.HackerHAND/faq/BQB614) Cholesterol non HDL [Mass/Vol]99 mg/dLNIFort Sanders Regional Medical Center, [place], operated by [facility] HealthComment on above:For patients with diabetes plus 1 major ASCVD risk factor, treating to a non-HDL-C goal of <100 mg/dL (LDL-C of <70 mg/dL) is considered a therapeutic option. Cholesterol.total/Cholesterol in HDL [Mass ratio]2.8 {ratio}[facility] Triglyceride [Mass/Vol]191 mg/dLHighNINF - 150 mg/dLCrittenton Behavioral Health Microalbumin/Creatinine ratio panel (U)on 51-96-0773Cpbxxrg DL <= 20 mg/L (U) [Mass/Vol]0.3 mg/dLSee Note:[facility] HealthcareComment on above:Reference Range: Reference Range Not established Albumin/Creatinine (U) [Mass ratio]8NINFCrittenton Behavioral HealthComment on above: The ADA defines abnormalities in albumin excretion as follows: Albuminuria Category Result (mg/g creatinine) Normal to Mildly increased <30 Moderately increased 30-299 Severely increased > OR = 300 The ADA recommends that at least two of three specimens collected within a 3-6 month period be abnormal before considering a patient to be within a diagnostic category. Creatinine (U) [Mass/Vol]40 mg/dL20 - 275 mg/dLCrittenton Behavioral HealthNo Panel Informationon 04-72-2282Oemnfdwvlzvgoi and review of laboratory resultsAbnormal [facility] HealthFASTING:YES FASTING: YESQUESTPerforming Organization Information Site ID: QPT Name: [employer] [facility] Address: [address] [place] [address], [address] [place] [phone] Director: Cezar Singh MDErlanger Western Carolina HospitalLaboratory - Hematology and Cell countson 57-09-6961AfU8e (Bld) [Mass fraction]7.8 %[facility] HealthNo Panel Informationon 56-51-2509WUNMCrittenton Behavioral HealthXR Thoracic spine 2 Viewson 65-[place] [address] XRay Report Signed Patient: KONRAD MOBLEY MR#: [id number] : 1945 Acct:[id number] Age/Sex: 79 / F ADM Date: 01/24/25 Loc: [facility] Attending Dr: Rylee Kneyon NP Ordering Physician: Rylee Kenyon NP Date of Service: 01/24/25 Procedure(s): XR thoracic spine 2V Accession Number(s): [id number] cc: KOFI BOWERS ; Rylee Kenyon NP [place] [id number] Patient Name: KONRAD MOBLEY MRN: [id number] date: 1945 Sex: F Assigned Patient Location: [facility] Current Patient Location: [facility] Accession/Order Number: [id number] Exam Date: 01/24/2025 12:17 Report Date: 01/24/2025 [...] Ramírez M.D. 01/24/2025 12:21 PM Dictation Location: [place] [address] Electronically authenticated by: [id number] Y Date: 01/24/2025 12:21 Dictated By: Skye Ramírez M.D. 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: Editorial Project Manager:TBHRadiology, Radiologist, - 01/24/[address] [address] XRay Report Signed Patient: KONRAD MOBLEY MR#: [id number] : 1945 Acct:[id number] Age/Sex: 79 / F ADM Date: 01/24/25 Loc: [facility] Attending Dr: Rylee Kenyon NP Ordering Physician: Rylee Kenyon NP Date of Service: 01/24/25 Procedure(s): XR thoracic spine 2V Accession Number(s): [id number] cc: KOFI BOWERS ; Rylee Kenyon NP The [address] [address] Patient Name: KONRAD MOBLEY MRN: [id number] date: 1945 Sex: F Assigned Patient Location: [facility] Current Patient Location: [facility] Accession/Order Number: [id number] Exam Date: 01/24/2025 12:17 Report Date: 01/24/2025 [...] Ramírez M.D. 01/24/2025 12:21 PM Dictation Location: [place] [address] Electronically authenticated by: [id number] Y Date: 01/24/2025 12:21 Dictated By: Skye Ramírez M.D. 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: Editorial Project Manager: [facility] HealthRadiology Study observation (narrative)[facility] HealthXR Thoracic spine 2 ViewsOrdered By: Radiologist Radiology on 59-51-5090VWCFCrittenton Behavioral Health Work Phone: Laboratory - Hematology and Cell countson 01-14-2025 HbA1c (Bld) [Mass fraction]6.4 %[facility] HealthNo Panel Informationon 01-14-2025 Interpretation and review of laboratory resultsAbnormAurora Sheboygan Memorial Medical CenterLaboratory - Hematology and Cell countson 39-32-2464MkQ2s (Bld) [Mass fraction]6.4 %[facility] HealthNo Panel Informationon 25-75-5668Rgnbqoqctmfixz and review of laboratory resultsAbCritical access hospitalALL BASIC METABOLIC PANELon 60-22-6329Iogif gap [Moles/Vol]11.6 mmol/LNOMS Healthcare Calcium [Mass/Vol]9 mg/dL8.5 - 10.1 mg/dLCrittenton Behavioral HealthChloride [Moles/Vol]106 mmol/L98 - 107 mmol/LNSELECT SPECIALTY [facility] HealthcareCO2 [Moles/Vol]30.2 mmol/L21.0 - 32.0 mmol/L [facility] HealthCreatinine [Mass/Vol]0.99 mg/dL0.55 - 1.02 mg/dLCrittenton Behavioral Health GFR/1.73 sq M.predicted CKD-EPI (S/P/Bld) [Vol rate/Area]>60>=60 mL/min/1.73m 2 [facility] HealthGlucose [Mass/Vol]132 mg/aCPyna68 - 106 mg/dLCrittenton Behavioral Health Interpretation and review of laboratory resultsAbSouthwest Regional Rehabilitation CenterPotassium [Moles/Vol]3.8 mmol/L3.5 - 5.1 mmol/LNOMS HealthcareSodium [Moles/Vol]144 mmol/L 136 - 145 mmol/LNOMS [facility] HospitalTBH EGFR-NON AF ZLEMNGMU29Kee>=60 mL/min/1.73m 2 [facility] HealthcareUrea nitrogen [Mass/Vol]15 mg/dL7.0 - 18.0 mg/dLCrittenton Behavioral Health Urea nitrogen/Creatinine [Mass ratio]15.2 mg/mgCrittenton Behavioral HealthCLINISYNCNOMS HealthcareDiabetic retinopathy [Minimum Data Set]on 84-14-6518Arrhsrvyzybfix and review of laboratory resultsAbnormalINTERMOUNTAIN MEDICAL [facility]ENTER HealthcareMicroscopic observation Cyto stain Nom (Cvx)abnNOSaint Francis Hospital [facility] HealthcareRadiology Study observation (narrative)NOMS EdlrgopmpmHyJ2j (Bld) [Mass fraction]on 47-57-2945SACS HealthcareLaboratory - Hematology and Cell countson 20-29-8627WiL2o (Bld) [Mass fraction]7.0 %NOMS Iwumkjxfmc01wp 22-58-739995Apujgq-up in 3 months as planned. ThanksNormalUniBucyrus Community HospitalOffice Visiton 32-22-4863Pdxhtl- up [id number] Konrad Mobley 1945 Provider Department Center 01/03/[address] [facility] Family History Problem Relation Age of Onset Diabetes Father Heart disease Father Coronary artery disease Father Coronary artery disease Brother Family Status - Relation Status Age at Father Brother Level of Service:[address] [place] OFFICE/OUTPATIENT ESTABLISHED LOW MDM 20-29 MIN Reason for Visit and Comments: Medication Problem [65]NormalUnTogus VA Medical CenterOffice Visiton 29-74-3445Pktvvo-up [id number] Konrad Mobley 1945 Provider Department Center 09/28/[address] [facility] Family History Problem Relation Age of Onset Diabetes Father Heart disease Father Coronary artery disease Father Coronary artery disease Brother Family Status - Relation Status Age at Father Brother Level of Service:[address]951 [place] OFFICE/OUTPATIENT ESTABLISHED LOW MDM 20-29 MIN Reason for Visit and Comments: Hypertension [272861]NormalSouthview Medical CenterPROF CHEM 8 (BAS METB)on 96-14-2344Spywd gap [Moles/Vol]11.6 mmol/LNormalMercy Health St[facility] Comment on above:Performed By: #### BMP #### [facility] [address] [address] [address] Rose ChadwickCalcium [Mass/Vol]9.4 mg/dLNormal8.5-10.1[facility] Comment on above:Performed By: #### BMP #### [facility] [address] [address] [address] Rose ChadwickChloride [Moles/Vol]101 mmol/ROekags48-212Abo [facility] Comment on above:Performed By: #### BMP #### [facility] [address] [address] [address] Rose ChadwickCO2 [Moles/Vol]32.6 mmol/LCritically high21.0-32.0The [facility] HospitalComment on above:Performed By: #### BMP #### [facility] [address] [address] [address] Rose ChadwickCreatinine [Mass/Vol]0.86 mg/dLNormal0.55-1.02The [facility] HospitalComment on above:Performed By: #### BMP #### [facility] [address] [address] [address] Rose ChangEGFR-AF NORTHERN IRISH>60Normal>=60The [facility] HospitalComment on above:Performed By: #### BMP #### [facility] [address] [address] [address] Rose RamirezGFR-NON AF NORTHERN IRISH>60Normal>=60The [facility] HospitalComment on above:Performed By: #### BMP #### [facility] [address] [address] [address] Rose ChadwickGlucose [Mass/Vol]108 mg/dLCritically rdfb07-905Uxe [facility] HospitalComment on above:Performed By: #### BMP #### [facility] [address] [address] [address] Rose ChadwickPotassium [Moles/Vol]4.2 mmol/LNormal3.5-5.1The [facility] Comment on above:Performed By: #### BMP #### [facility] [address] [address] [address] Rose ChadwickSodium [Moles/Vol]141 mmol/MQrkvnt558-714Osw [facility] Comment on above:Performed By: #### BMP #### [facility] [address] [address] [address] Rose Alaniz nitrogen [Mass/Vol]15.0 mg/dLNormal7.0-18.0The [facility] HospitalComment on above:Performed By: #### BMP #### [facility] [address] [address] [address] Rose ChadwickUrea nitrogen/Creatinine [Mass ratio]17.4 mg/mgNormalThe [facility] HospitalComment on above:Performed By: #### BMP #### [facility] [address] [address] [address] Rose Chadwick37on 779725-Yulcfu an arm BP monitor, Omron brand is preferred -Check blood pressure at least once daily 2-3 hours after taking medications - Stop taking Losartan -Start taking Losartan-hydrochlorothiazide -Check labs in 1 weekNormalUniBucyrus Community HospitalOffice Visiton 69-52-6701Sqpkih-up [id number] Konrad Mobley 1945 F Date Provider Department Center 08/31/2022 [address]69-WWACPGIATOSCAR DEL [place]ORO [facility] Family History Problem Relation Age of Onset Diabetes Father Heart disease Father Coronary artery disease Father Coronary artery disease Brother Family Status - Relation Status Age at Father Brother Level of Service:[address]66 [place] OFFICE/OUTPATIENT ESTABLISHED LOW MDM 20-29 MIN Reason for Visit and Comments: Hypertension [038764]NormalUnTogus VA Medical CenterPROF CHEM 8 (BAS METB)on 07-67-1034Lrevz gap [Moles/Vol]11.9 mmol/LNormalThe [facility] Comment on above:Performed By: #### BMP #### [facility] [address] [address] [address] Rose ChadwickCalcium [Mass/Vol]9.0 mg/dLNormal8.5-10.1[facility] Comment on above:Performed By: #### BMP #### [facility] [address] [address] [address] Rose ChadwickChloride [Moles/Vol]103 mmol/FEuukka27-604Qhh [facility] Comment on above:Performed By: #### BMP #### [facility] [address] [address] [address] Rose ChadwickCO2 [Moles/Vol]30.3 mmol/YZhmbsa01.0-32.0The [facility] Comment on above:Performed By: #### BMP #### [facility] [address] [address] [address] Rose ChadwickCreatinine [Mass/Vol]0.84 mg/dLNormal0.55-1.02The [facility] HospitalComment on above:Performed By: #### BMP #### [facility] [address] [address] [address] Rose RamirezGFR-AF NORTHERN IRISH>60Normal>=60The [facility] HospitalComment on above:Performed By: #### BMP #### [facility] [address] [address] [address] Rose RamirezGFR-NON AF NORTHERN IRISH>60Normal>=60The [facility] HospitalComment on above:Performed By: #### BMP #### [facility] [address] [address] [address] Rose ChadwickGlucose [Mass/Vol]119 mg/dLCritically rieb02-628Eba [facility] HospitalComment on above:Performed By: #### BMP #### [facility] [address] [address] [address] Rose ChadwickPotassium [Moles/Vol]4.2 mmol/LNormal3.5-5.1The [facility] Comment on above:Performed By: #### BMP #### [facility] [address] [address] [address] Rose ChadwickSodium [Moles/Vol]141 mmol/JEljxkv271-254Lhk [facility] Comment on above:Performed By: #### BMP #### [facility] [address] [address] [address] Rose ChadwickUrea nitrogen [Mass/Vol]13.0 mg/dLNormal7.0-18.0The [facility] HospitalComment on above:Performed By: #### BMP #### [facility] [address] [address] [address] Rose ChadwickUrea nitrogen/Creatinine [Mass ratio]15.5 mg/mgNormalThe [facility] HospitalComment on above:Performed By: #### BMP #### [facility] [address] [address] [address] Rose ChadwickFollow-Upon 00-32-0543Vbzbly-[id number] ItzKonrad Enrike 1945 F Date Provider Department Center 06/01/[address] [facility] Family History Problem Relation Age of Onset Diabetes Father Heart disease Father Coronary artery disease Father Coronary artery disease Brother Family Status - Relation Status Age at Father Brother Level of Service:07791 [place] OFFICE/OUTPATIENT ESTABLISHED LOW MDM 20-29 MIN Reason for Visit and Comments: Hypertension [507786]NormalSouthview Medical CenterPROF CHEM 8 (BAS METB)on 00-55-9493Nyoqb gap [Moles/Vol]11.1 mmol/LNormalMercy Health St[facility] Comment on above:Performed By: #### BMP #### [facility] [address] [address] [address] Rose ChadwickCalcium [Mass/Vol]9.0 mg/dLNormal8.5-10.1[facility] Comment on above:Performed By: #### BMP #### [facility] [address] [address] [address] Rose ChadwickChloride [Moles/Vol]103 mmol/GJyqidv44-661JeyMercy Health St. [facility] Hospital Comment on above:Performed By: #### BMP #### [facility] [address] [address] [address] Rose ChadwickCO2 [Moles/Vol]29.6 mmol/JOjvyie18.0-32.0[facility] Comment on above:Performed By: #### BMP #### [facility] [address] [address] [address] Rose ChadwickCreatinine [Mass/Vol]1.22 mg/dLCritically high0.55-1.02[facility] HospitalComment on above:Performed By: #### BMP #### [facility] [address] [address] [address] Rose ChangEGFR-AF SNJHWKAU05 mL/min/1.29k0Gqspvpgapq low>=60The [facility] HospitalComment on above:Performed By: #### BMP #### [facility] [address] [address] [address] Rose ChangEGFR-NON AF WKQZISLP09 mL/min/1.66h5Kjysnjoaon low>=60The [facility] HospitalComment on above:Performed By: #### BMP #### [facility] [address] [address] [address] Rose ChadwickGlucose [Mass/Vol]112 mg/dLCritically rxaa63-966Mwr [facility] on above:Performed By: #### BMP #### [facility] [address] [address] [address] Rose ChadwickPotassium [Moles/Vol]4.7 mmol/LNormal3.5-5.1[facility] Comment on above:Performed By: #### BMP #### [facility] [address] [address] [address] Rose ChadwickSodium [Moles/Vol]139 mmol/AYfgnov748-251Oxi [facility] Comment on above:Performed By: #### BMP #### [facility] [address] [address] [address] Rose ChadwickUrea nitrogen [Mass/Vol]23.0 mg/dLCritically high7.0-18.0The [facility] on above:Performed By: #### BMP #### [facility] [address] [address] [address] Rose ChadwickUrea nitrogen/Creatinine [Mass ratio]18.9 mg/mgNormalThe [facility] Toledoment on above:Performed By: #### BMP #### [facility] [address] [address] [address] Rose Payton 04-47-150041Boeuec labs reviewed- Serum CR elevated 1.42, BUN [...] changes on voice mail message. Angela Gillespie K[employer] Division of Cardiology, [facility]- [phone] Pager- [phone] Email- [email or web address] Health Atrium Medical Center Documentationon [id number] Konrad Mobley 1945 Date Provider Department Center 05/10/2022 120-ANGELA GILLESPIE PAULA Christopher . Family History Problem Relation Age of Onset [...] function and med changes on voice mail message.NormalUnTogus VA Medical CenterOrders Onlyon 17-66-1164Lwegka [id number] Konrad Mobley 1945 Date Provider Department Center 05/10/[address] [facility] Family History Problem Relation Age of Onset Diabetes Father Heart disease Father Coronary artery disease Father Coronary artery disease Brother Family Status - Relation Status Age at Father BrotherNoalUniBucyrus Community HospitalPROF CHEM 8 (BAS METB)on 34-25-6569Otfhx gap [Moles/Vol]13.4 mmol/LNormalThe [facility] HospitalComment on above:Performed By: #### BMP ####[facility] [address] [address]Dr.Yilan ChangCalcium [Mass/Vol]9.1 mg/dLNormal 8.5-10.1The [facility] HospitalComment on above:Performed By: #### BMP ####[facility] [address] [address]Dr. Yilan ChangChloride [Moles/Vol]103 mmol/DHpebux52-397Ujm [facility] Comment on above:Performed By: #### BMP ####[facility] F[address] [place], [place] [address]Dr.Yilan ChangCO2 [Moles/Vol]28.3 mmol/L Choyei57.0-32.0The [facility] HospitalComment on above:Performed By: #### BMP ####[facility] E[address] [place], [place] [address]Dr. Yilan ChangCreatinine [Mass/Vol]1.42 mg/dLCritically high0.55-1.02The [facility] HospitalComment on above:Performed By: #### BMP ####[facility] [address] [place], [place] [address]Dr.Yilan ChangEGFR-AF LANJNVNC78 mL/min/1.94x5Kbjmjwqzap low>=60The [facility] HospitalComment on above: Performed By: #### BMP ####[facility] Hokyymuf[address] [place], [place] [address]Dr.Yilan ChangEGFR-NON AF TULEODXE93 mL/min/1.73m2 Critically low>=60The [facility] HospitalComment on above:Performed By: #### BMP ####[facility] Mirwylkuhr[address] [place], [place] [address]Dr. Yilan ChangGlucose [Mass/Vol]125 mg/dLCritically sdiw85-583Jnf [facility] Comment on above:Performed By: #### BMP ####[facility] Fflcueqvsb[address] [place], [place] [address]Dr.Yilan ChangPotassium [Moles/Vol]5.7 mmol/LCritically high3.5-5.1The [facility] HospitalComment on above:Performed By: #### BMP ####[facility] [address] [address]Dr.Rose ChangSodium [Moles/Vol]139 mmol/BLwlvrn629-770Wrp [facility] HospitalComment on above:Performed By: #### BMP ####[facility] [address] [address]Dr.Yilan ChangUrea nitrogen [Mass/Vol]28.0 mg/dLCritically high7.0-18.0The [facility] HospitalComment on above:Performed By: #### BMP ####[facility] [address] [address]Dr.Yilan ChangUrea nitrogen/Creatinine [Mass ratio] 19.7 mg/mgNormalThHolzer HospitalComment on above:Performed By: #### BMP ####[facility] [address] [address]Dr. Rose ChadwickOffice Visiton 66-20-9730Dvlsab-up [id number] Konrad Mobley 1945 Date Provider Department Center 04/28/2022 ANGELA CAMERON PAULA [place] Family History Problem Relation Age of Onset Diabetes Father Heart disease Father Coronary artery disease Father Coronary artery disease Brother Family Status - Relation Status Age at Father Brother Level of Service:38422 [place] OFFICE/OUTPATIENT ESTABLISHED MOD MDM 30-39 MIN Reason for Visit and Comments: Hypertension [158180] - Patient here for 3 mo follow up hypertension. Denies chest pain and SOB.NormalUnTogus VA Medical CenterAbstracton [id number] Konrad Mobley 1945 Date Provider Department Center 04/16/2022 CA AMANDA PAULA [place] Family History Problem Relation Age of Onset Diabetes Father Heart disease Father Coronary artery disease Father Coronary artery disease Brother Family Status - Relation Status Age at Father BrotherNormalUniBucyrus Community HospitalPOINT OF CARE GLUCOSEon 05-20-4319Qtxoegq [Mass/Vol]120 mg/dLCritically lyld56-966KhfMercy Health St. [facility] Comment on above:Performed By: #### POCGLUC #### [facility] [address] [address] [address] Rose ChadwickCT PELVIS WO CONon 43-17-1849IO PELVIS WO CONEXAMINATION: CT PELVIS WO CON HISTORY: Unspecified fall [...] Electronically authenticated by: JOE MUKHERJEE Date: 2022-01-06 12:[address] [place], [place] [address]XR DEXA BONE DENSITYon 48-71-9325HT DEXA BONE DENSITY EXAMINATION: XR DEXA BONE DENSITY, 01/04/2022 11:09 AM EDT HISTORY: [...] Electronically authenticated by: JOE MUKHERJEE Date: 2022-01-04 11:51[facility] HospitalCT LSJEANETTE ROYAL CONon 10-84-9918QR JUSTIN ROYAL CONEXAMINATION: CT JUSTIN RODRIGUEZ, 11/30/2021 12:53 PM EDT HISTORY: Lumbosacral neuritis [...] Electronically authenticated by: JOE MUKHERJEE Date: 2021-11-30 16:48[facility] HospitalPROF CHEM 8 (BAS METB)on 74-36-7112Xhfjs gap [Moles/Vol]13.3 mmol/LNormalMercy Health St. Charles HospitalComment on above:Performed By: #### BMP ####[facility] Ku[address] [place], [place] [address]Dr. Yilan ChangCalcium [Mass/Vol]8.8 mg/dLNormal8.5-10.1The [facility] HospitalComment on above:Performed By: #### BMP ####[facility] Y[address]ax[address] [place], [place] [address]Dr.Yilan ChangChloride [Moles/Vol]101 mmol/LNormal 98-107The [facility] HospitalComment on above:Performed By: #### BMP ####[facility] Jdjduainsc[address] [place], [place] [address]Dr.Yilan ChangCO2 [Moles/Vol]29.5 mmol/TYvbxco21.0-30.0The [facility] HospitalComment on above: Performed By: #### BMP ####[facility] Xgordk[address]nr[address] [place], [place] [address]Dr.Yilan ChangCreatinine [Mass/Vol]0.85 mg/dLNormal 0.52-1.04The [facility] HospitalComment on above:Performed By: #### BMP ####[facility] Fkowxx[address] [place], [place] [address]Dr. Yilan ChangEGFR-AF NORTHERN IRISH>60Normal>=60The [facility] HospitalComchelsea hospital on above: Performed By: #### BMP ####[facility] Ypigsopdz[address] [place], [place] [address]Dr.Yilan ChangEGFR-NON AF NORTHER[place] IRISH>60Normal>=60The [facility] HospitalComment on above:Performed By: #### BMP ####[facility] Jhccbwxjdj[address] [place], [place] [address]Dr.Yilan ChangGlucose [Mass/Vol]116 mg/dLCritically ncuk62-491Vps [facility] HospitalComment on above: Performed By: #### BMP ####[facility] Lutilpyyzs[address] [place], [place] [address]Dr.Yilan ChangPotassium [Moles/Vol]4.8 mmol/LNormal 3.4-5.0The [facility] HospitalComment on above:Performed By: #### BMP ####[facility] [address] [place], [place] [address]Iy.Rose Chadwick Sodium [Moles/Vol]139 mmol/AUumkql562-282Ggx [facility] HospitalComment on above: Performed By: #### BMP ####[facility] [address] [place], [place] [address]By.Rose ChangUrea nitrogen [Mass/Vol]15.0 mg/dLNormal 7.0-18.0The [facility] HospitalComment on above:Performed By: #### BMP ####[facility] [address] [place], [place] [address]Df. Rose ChadwickUrea nitrogen/Creatinine [Mass ratio]17.6 mg/mgNoEast [place] Regional HospitalComment on above:Performed By: #### BMP ####[facility] [address] [place], [place] [address]Td.Rose ChangXR LSPINE MIN 4 VIEWSon 97-07-2487MG LSPINE MIN 4 VIEWSEXAMINATION: XR LSPINE MIN 4 VIEWS HISTORY: Low [...] authenticated by: PATITO DE JESUS Date: 2021-10-30 15:27[facility] Vital Signs Date TimeVital SignValuePerforming YmktaghnnHvgvfjud08-61-5131 08:53-0400Body uaifvw094.4 cmKofi Bowers MD Work Phone: [facility] HealthHvxpfgrdmn49-96-8431 08:53-0400Body mass index (BMI) [Ratio]37.11 kg/e2CcyssuKofi Bowers MD Work Phone: noWright Memorial HospitalLtgzzuuqhe64-80-2748 08:53-0400Body uixbds77.18 kgKofi Bowers MD Work Phone: noRI Mrgrbcqydg00-91-1458 08:53-0400Diastolic blood yicyduzz52 mm[Hg]Kofi Bowers MD Work Phone: [facility] HealthBnpgiibauw24-54-1351 08:53-0400Heart rate78 /min Kofi Bowers MD Work Phone: [facility] HealthCczrdcypiz74-29-7314 08:53-8771OgD7% (BldA) [Mass fraction]96 %Kofi Bowers MD Work Phone: [facility] HealthJnywllancq10-92-8084 08:53-0400Systolic blood hiljyadk251 mm[Hg]Kofi Bowers MD Work Phone: [phone] [place], [place] [address]Uitqwdhamk45-09-0865 10:53-0400Body zrfsqe419.4 cmKofi Bowers MD Work Phone: [facility] HealthPgwwwnvpnu09-62-1227 10:53-0400Body mass index (BMI) [Ratio]36.13 kg/s9ElhvfaKofi Bowers MD Work Phone: [phone] [place], [place] [address]Vrhepeddvr72-18-7658 10:53-0400Body zgpise53.92 kgKofi Bowers MD Work Phone: [facility] HealthHmysjmgwtc29-32-0712 10:53-0400Diastolic blood mihmzipu38 mm[Hg]Kofi Bowers MD Work Phone: [facility] HealthUakqhkbhod88-59-3386 10:53-0400Heart rate80 /min Kofi Bowers MD Work Phone: [facility] HealthMyaietdopt67-23-1856 10:53-8115SqN6% (BldA) [Mass fraction]96 %Kofi Bowers MD Work Phone: [facility] HealthXtcpedvtci35-73-4455 10:53-0400Systolic blood fxbxgnyy879 mm[Hg]Kofi Bowers MD Work Phone: [facility] HealthJoecaybmrx38-04-4800 14:10-0400Body zarpgz970.4 cmKofi Bowers MD Work Phone: [phone]al HealthLnhobhfsul37-18-0912 14:10-0400Body mass index (BMI) [Ratio]34.76 kg/b0ZynhrpKofi Bowers MD Work Phone: NOWright [facility] HospitalHibscvwcnt62-29-7430 14:10-0400Body qymwaf07.74 kgKofi Bowers MD Work Phone: [facility] HospitalBwzcethayh39-92-7477 14:10-0400Diastolic blood zkdtfwfu89 mm[Hg]Kofi Bowers MD Work Phone: [facility] HospitalOkynlztsno33-15-7599 14:10-0400Heart rate77 /min Kofi Bowers MD Work Phone: [facility] HospitalVmaojmbtkc10-24-6493 14:10-0400Respiratory rate17 /minDcollin Bowers MD Work Phone: [facility] HospitalPazczexhoh68-72-8461 14:10-0750JfD7% (BldA) [Mass fraction]97 %Kofi Bowers MD Work Phone: [facility] HospitalSvrnkgngzm28-93-8947 14:10-0400Systolic blood tyyrzwkq971 mm[Hg]Kofi Bowers MD Work Phone: NOW[facility] HospitalQbaoulbshd71-36-2775 11:07-0400Body ynizxs720.4 cmDajosé Bowers MD Work Phone: [facility] HospitalOtvkvxypgr99-49-7724 11:07-0400Body mass index (BMI) [Ratio]34.57 kg/r3PpdppgKofi Bowers MD Work Phone: NOW[facility] HospitalFondtnebmi89-34-2468 11:07-0400Body temperature 97.5 [degF]Kofi Bowers MD Work Phone: [phone] Memorial HospitalIkmlswjowx94-45-2892 11:07-0400Body xwazzs10.29 kgKofi Bowers MD Work Phone: [facility] HospitalYvrmemaejl30-93-3530 11:07-0400Diastolic blood bzkvsxop73 mm[Hg]Kofi Bowers MD Work Phone: [facility] HospitalLlhshtewit51-48-6046 11:07-0400Heart rate76 /min Kofi Bowers MD Work Phone: [phone] Memorial HospitalLcppzcgeqw08-78-4603 11:07-7157WtL9% (BldA) [Mass fraction]97 %Kofi Bowers MD Work Phone: NOW[facility] HospitalZttikaiauz27-32-4329 11:07-0400Systolic blood anibqldm142 mm[Hg]Kofi Bowers MD Work Phone: NOW[facility] HospitalFwxoauqmsf82-60-5908 13:14-0400Body .4 cmKaren Hemmer PA Work Phone: [facility] HospitalLqaumtxvrs00-78-4501 13:14-0400Body mass index (BMI) [Ratio]35.15 kg/o0Fgand Hemmer PA Work Phone: NOW[facility] HospitalXfwexawtae56-01-6089 13:14-0400Body .65 kgKaren Hemmer PA Work Phone: [facility] HospitalNmsongvzww40-39-0821 13:14-0400Diastolic blood exnddvjg27 mm[Hg]Skye Hemmer PA Work Phone: [facility] HospitalOgronvfdxc68-15-1652 13:14-0400Heart rate78 /min Skye Hemmer PA Work Phone: [facility] HospitalGoqswtshac51-67-0790 13:14-0400Respiratory rate16 /minKaren Hemmer PA Work Phone: NOW[facility] HospitalQqfxofqkrx71-21-4762 13:14-7159YpR7% (BldA) [Mass fraction]97 %Skye Hemmer PA Work Phone: [facility] HospitalWdhnbmerol74-53-5193 13:14-0400Systolic blood pgqoucvk642 mm[Hg]Skye Hemmer PA Work Phone: [facility] HospitalYfrfdeeoys16-03-1703 13:21-0500Diastolic blood mm[Hg]Skye Hemmer PA Work Phone: [facility] HospitalMbkdoqfyre80-16-8254 13:21-0500Systolic blood vnsassbm733 mm[Hg]Syke Hemmer PA Work Phone: [facility] HospitalLktvsoyqtk52-83-7685 13:10-0500Body dzeteb555.4 cmKaren Hemmer PA Work Phone: [facility] HealthLiflmrgfpq64-43-9230 13:10-0500Body mass index (BMI) [Ratio]35.27 kg/o9Pjxzb Hemmer PA Work Phone: [facility] HealthIywfezdbfm01-68-4346 13:10-0500Body yztnri85.92 kgKaren Hemmer PA Work Phone: [facility] HealthNjvthzfjnn78-39-4313 13:10-0500Heart rate99 /min Skye Hemmer PA Work Phone: [facility] HealthFgmyyjdehs15-74-7938 13:10-0500Respiratory rate16 /minKaren Hemmer PA Work Phone: [facility] HealthQqoknzlsfl27-41-6597 13:10-2219LkT7% (BldA) [Mass fraction]99 %Skye Hemmer PA Work Phone: [facility] HealthNpimivsebz27-57-3920 11:41-0500Body mass index (BMI) [Ratio]35.9 kg/d1VkgufurolMagruder Hospital11-14-2024 15:19-0500 Body .4 cmMag[facility]11-14-2024 15:19-0500Body ijnaga47.46 kgMagruder Hospital11-14-2024 15:19-0500Diastolic blood svpfevbs08 mm[Hg][facility]11-14-2024 15:19-0500 Heart rate87 /minMagruder Hospital11-14-2024 15:19-9923MaU2% (BldA) [Mass fraction]96 %[facility]11-14-2024 15:19-0500 Systolic blood ycpqnvcq664 mm[Hg][facility]08-26-2024 11:10-0400Body mass index (BMI) [Ratio]36.21 kg/k9DrcuhzKofi Bowers MD Work Phone: [facility] HealthEwgoqsfpcw85-94-8973 11:10-0400Body .1 kg Kofi Bowers MD Work Phone: [facility] HospitalCjxyytyeck49-27-2703 11:10-0400Diastolic blood bnzyckoe68 mm[Hg]Kofi Bowers MD Work Phone: [facility] HospitalKylqlavick00-14-7204 11:10-0400Heart rate70 /min Kofi Bowers MD Work Phone: [facility] HospitalNpnniaoray57-83-2937 11:10-0400Respiratory rate16 /minDcollin Bowers MD Work Phone: [facility] HospitalTgsczzxpgu61-77-0674 11:10-0366WqE0% (BldA) [Mass fraction]93 %Kofi Bowers MD Work Phone: [facility] HospitalCvxlwzkhxj13-41-8479 11:10-0400Systolic blood duqpbozv453 mm[Hg]Kofi Bowers MD Work Phone: noWright [facility] HospitalHypfjpenyk02-33-3132 13:00-0500Body rnsahd141.94 cmAbdullahi Acosta Other [employer] Other 11-13-2023 13:00-0500Body mass index (BMI) [Ratio]35.9 kg/v9UjxozAbdullahi Acosta Other [employer] Other 11-13-2023 13:00-0500Body lgeizw29.18 kgAbdullahi Acosta Other [employer] Other 11-13-2023 13:00-0500Diastolic blood wnejrojl51 mm[Hg] Abdullahi Acosta Other [employer] Other 11-13-2023 13:00-5194RpO4% (BldA) [Mass fraction]97 % Abdullahi Acosta Other [employer] Other 11-13-2023 13:00-0500Systolic blood vogcucld304 mm[Hg] Abdullahi Acosta Other [employer] Other 11-14-2022 14:00-0500Body upzgmm147.94 cmAbdullahi Acosta Other [employer] Other 11-14-2022 14:00-0500Body mass index (BMI) [Ratio] 37.22 kg/c4CzqppAbdullahi Acosta Other [employer] Other 11-14-2022 14:00-0500Body rhelxsyeliz81.8 [degF]Abdullahi Acosta Other [employer] Other 11-14-2022 14:00-0500Body fibrkm32.36 kgAbdullahi Acosta Other [employer] Other 11-14-2022 14:00-0500Diastolic blood ahpwcvps72 mm[Hg] Abdullahi Acosta Other [employer] Other 11-14-2022 14:00-0631EhG0% (BldA) [Mass fraction]97 % Abdullahi Acosta Other [employer] Other 11-14-2022 14:00-0500Systolic blood wmlwkhux805 mm[Hg] Abdullahi Acosta Other [employer] Other 11-18-2021 14:00-0500Body zwferq441.94 cmAndra Ching Other [employer] Other 11-18-2021 14:00-0500Body mass index (BMI) [Ratio] 35.33 kg/c3FhjxxOlamide Ching Other [employer] Other 11-18-2021 14:00-0500Body veedhinvcew49 [degF]Olamidera Ching Other [facility] [facility] Other 11-18-2021 14:00-0500Body rfzvye47.82 kgAndra Jeane Other [facility] Other 11-18-2021 14:00-0500Diastolic blood dcfofbmw87 mm[Hg] Olamidera Ching Other [facility] Other 11-18-2021 14:00-6277TxA0% (BldA) [Mass fraction]97 % Olamidera Ching Other [facility] Other 11-18-2021 14:00-0500Systolic blood tmdmkirc876 mm[Hg] Olamidera Ching Other [facility] Other Encounters Encounter DateEncounter TypeCare ProviderFacilityStart: 06-06-2025 End: 78-72-2902Nnjozg flowsAnthony Bowers MD Work Phone: NOGK [place] [facility] MedinceStart: 06-06-2025 End: 27-70-0394Gqbkiu Marisela Bowers MD Work Phone: NOXX [place] [facility] MedinceStart: 06-06-2025 End: 99-85-2014Idofju outpatient visit 25 minutesDajosé Bowers MD Work Phone: NOMS [place] [facility] MedinceComment on above:Acute myofascial strain of lumbar region, initial encounter (Primary Dx)Start: 06-06-2025 End: 31-84-4447myodfhtvejZEEMAF B BERRYNot AvailableStart: 05-13-2025 End: 12-17-1862Hbyajrlkq encounterDajosé Bowers MD Work Phone: [facility] [place] [facility] MedinceStart: 04-29-2025 End: 42-99-1810CipxidVzjynx B Berry MD Work Phone: [facility] [place] [facility] MedinceComment on above: Hypothyroidism, unspecified type ; Failed back syndromeStart: 04-22-2025 End: 71-87-8828Vczsmummv encounterKofi Bowers MD Work Phone: [facility] [place] [facility] MedinceStart: 04-17-2025 End: 80-06-2466Tndaqu flowsheetKofi Bowers MD Work Phone: [facility] [place] [facility] MedinceStart: 04-17-2025 End: 00-92-2123Cowllv flowsAnthony Bowers MD Work Phone: NOIJ [place] [facility] MedinceStart: 04-17-2025 End: 54-08-6672Lghaihclt encounterKofi Bowers MD Work Phone: [facility] [place] [facility] MedinceStart: 04-17-2025 End: 07-33-6787Lrlii of hemosiderin, quantKofi Bowers MD Work Phone: NOMV HealthcareStart: 04-17-2025 End: 01-58-9576Pqueoem encounter procedureKofi Bowers MD Work Phone: NOJT [place] [facility] MedinceComment on above:Routine general medical examination at health care facility (Primary Dx); ACP (advance care planning); Diabetes mellitus type 2 with neurological manifestations (HCC)Start: 04-17-2025 End: 79-94-0919ovxykhipecHLZEJV B BERRYNot AvailableStart: 04-04-2025 End: 38-48-8064DzngngIwlzlh B Berry MD Work Phone: [facility] [place] [facility] MedicineComment on above:Failed back syndromeStart: 03-07-2025 End: 72-42-6765imfypbnjfwHAGDMT B BERRYNot AvailableStart: 02-25-2025 End: 60-63-7799exclqzemaeMrputmf Vytautas Giedraitis MDFacility:PM [facility] Start: 02-11-2025 End: 59-22-0626Ihsdbt outpatient visit 15 minutesKofi Bowers MD Work Phone: [facility] CI FMComment on above:Nausea (Primary Dx); Type 2 diabetes mellitus with hyperglycemia, without long-term current use of insulin (HCC)Start: 02-11-2025 End: 82-84-0227vjncdwtoldUKWMLO B BERRYNot AvailableStart: 02-11-2025 End: 01-46-2049Ihyezi Marisela Bowers MD Work Phone: [facility] CI FMStart: 02-11-2025 End: 20-40-7175Janfvt Marisela Bowers MD Work Phone: [facility] CI FMStart: 02-08-2025 End: 78-27-8364Jfamnx Marisela Bowers MD Work Phone: [facility] CI FMStart: 02-08-2025 End: 90-17-2053Ihllyd Marisela Bowers MD Work Phone: [facility] CI FMStart: 02-08-2025 End: 33-17-5488Yyahvd outpatient visit 15 minutesKofi Bowers MD Work Phone: [facility] CI FMComment on above:Nausea (Primary Dx)Start: 02-08-2025 End: 32-17-2744dsduqhjmctERQJRE B BERRYNot AvailableStart: 02-04-2025 End: 55-19-4454roafdmtvwxXvurnga Soni Maya MDFacility:[facility] [place] Start: 01-24-2025 End: 94-48-8518Xuuaxssar Result EncounterGeneric External Data ProviderNOMS External Department UnsolicitedStart: 01-24-2025 End: 28-59-7689Mdfornmrp Result EncounterGeneric External Data ProviderNOMS External Department UnsolicitedStart: 01-14-2025 End: 39-05-2193Cfqesu Fernando FARIAS Work Phone: [facility] CI FMStart: 01-14-2025 End: 45-97-8411Kjdvwk Fernando FARIAS Work Phone: [facility] CI FMStart: 01-14-2025 End: 28-37-1613Klaymx outpatient visit 15 minutesSkye FARIAS Work Phone: [facility] CI FMComment on above:Lumbar paraspinal muscle spasm (Primary Dx); Type 2 diabetes mellitus with hyperglycemia, without long-term current use of insulin (CMS/HCC)Start: 01-14-2025 End: 82-90-8015eqasarcakkUYAQN M HEMMERNot AvailableStart: 12-03-2024 End: 79-27-8043NbzsepQpxdby B Berry MD Work Phone: [facility] CI FMComment on above:Failed back syndromeStart: 10-03-2024 End: 11-49-3224QhgonmNsozrl B Berry MD Work Phone: [facility] CI FMComment on above:Failed back syndromeStart: 09-10-2024 End: 17-21-4371gttpnnclhjYgnwbvb Neyas Francesco BUENOFacility:PM [facility]esh Start: 09-03-2024 End: 80-87-4312VahjseUoucmt B Berry MD Work Phone: [facility] CI FMComment on above:Failed back syndromeStart: 08-28-2024 End: 95-78-2891Hotzms Fernando FARIAS Work Phone: [facility] CI FMStart: 08-28-2024 End: 85-94-0853Psregr Fernando FARIAS Work Phone: [facility] CI FMStart: 08-28-2024 End: 79-52-1548Wjispq outpatient visit 25 minutesSkye FARIAS Work Phone: [facility] CI FMComment on above: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) (Primary Dx); Benign essential hypertension (CMS/HCC); Morbid (severe) obesity due to excess calories (CMS/HCC); Body mass index (BMI) 35.0-35.9, adultStart: 08-28-2024 End: 46-04-2159trgdhdhkbhRPXSZ M HEMMERNot AvailableStart: 08-20-2024 End: 30-11-9821bndqchuszaPavhqyt Vytautas Giedraitis MDFacility:PM [facility] Start: 08-13-2024 End: 83-18-4771xzobfwnzbgMzszuhj Vytautas Giedraitis MDFacility:PM [facility] Start: 08-02-2024 End: 53-98-0598WqzahrEtcoyp B Berry MD Work Phone: [facility] CI FMComment on above:Failed back syndromeStart: 07-30-2024 End: 44-58-7495nedfnzavebIwgaaus Vytautas Giedraitis MDFacility:PM [facility] Start: 07-23-2024 End: 28-29-2047xkfpcsbcmbStrrvxt Vytautas Giedraitis MDFacility:PM [place] Start: 07-18-2024 End: 05-46-2341Fwjxzqzmd Result EncounterGeneric External Data ProviderNOMS External Department UnsolicitedStart: 07-18-2024 End: 44-62-4590Dgpznujfn Result EncounterGeneric External Data ProviderNOMS External Department UnsolicitedStart: 07-02-2024 End: 74-08-3681PmitzkPwlldi B Berry MD Work Phone: [facility] CI FMComment on above:Failed back syndrome; Hypothyroidism, unspecified type (CMS/HCC)Start: 06-29-2024 End: 77-56-6659vxhmxfuwcwLditcavspOhioHealth [facility] Work Phone: Start: 06-29-2024 End: 65-63-7501Lvqjqus encounter [facility] Physician [facility] Work Phone: Start: 06-04-2024 End: 66-09-4249EgjgmlLtlgim B Berry MD Work Phone: [facility] CI FMComment on above:Failed back syndromeStart: 05-07-2024 End: 99-15-7615JtsfjzZritwt B Berry MD Work Phone: [facility] CI FMComment on above:Failed back syndromeStart: 04-09-2024 End: 38-91-3085Seremr flowsAnthony Bowers MD Work Phone: [facility] CI FMStart: 04-09-2024 End: 59-60-9420Weqrof flowsheetKofi Bowers MD Work Phone: [facility] CI FMStart: 04-09-2024 End: 21-22-0305Gsbig of hemosiderin, quantKofi Bowers MD Work Phone: [facility] Work Phone: Start: 04-09-2024 End: 36-33-8280Jecrtxp encounter procedureKofi Bowers MD Work Phone: [facility] CI FMComment on above:Routine general medical examination at health care facility (Primary Dx); ACP (advance care planning); Type 2 diabetes mellitus without complication, without long-term current use of insulin (CMS/HCC); Morbid (severe) obesity due to excess calories (CMS/HCC); Essential (primary) hypertension (CMS/HCC); Body mass index (BMI) 35.0-35.9, adult; Peripheral vascular disease, unspecified (CMS/HCC); Iliopsoas bursitis of right hipStart: 04-04-2024 End: 49-29-5354UohdxbWkigpe B Berry MD Work Phone: [facility] CI FMComment on above:Failed back syndromeStart: 03-18-2024 End: 26-19-0603Lpvvxvyja department patient visitKOFI BOWERSTuscarawas Hospitaltart: 61-68-4106VbpygnXljnra B Berry MD Work Phone: [facility] CI FMComment on above:Failed back syndromeStart: 06-27-2023 End: 72-01-0868uwbqljxxmpFeymp ChabanFacility:[facility] Start: 80-95-8023Ukphdp outpatient visit [facility] Medical OutPtStart: 06-27-2023 End: 04-46-4030asvafcsomgYG Kofi Bowers Work Phone: [facility] Work Phone: Start: 06-27-2023 End: 10-25-7884Eitgrjn encounter procedureII Kofi Bowers Work Phone: [facility] Work Phone: Start: 72-40-8680vlqsrxaxycWKXAZVHVCORU LAKSHMIPATHY . Facility:G5Kbiib: 01-03-2023 End: 64-81-4074kxzwaznnaqPMMBVCS [facility] Centertart: 10-14-2022 End: 62-54-6379upxvsjdkjxYS SERENITY GARCIA .Facility:C8Tdbft: 09-28-2022 End: 87-05-1251ovtntizcvmOQMOMDYMMetroHealth Main Campus Medical Center Start: 09-07-2022 End: 06-99-4716siauxojyuyOO DOCTOR MISCFacility:P7Cdosg: 08-31-2022 End: 91-16-9336oojyepeejbMGXRZPPDOhioHealth Start: 08-23-2022 End: 32-56-6167nqinxxamflSU SAMER KHOURIFacility:Q6Cznth: 07-14-2022 End: 87-40-9324gdswppbfsaZVIG SOLIS .Facility:P2Thwlg: 08-72-8436Ucwmoi outpatient visit 15 [facility] SouthStart: 06-28-2022 End: 30-18-5089zfhylelbpgEJ Kofi Bowers Work Phone: [facility] Work Phone: Start: 06-28-2022 End: 81-98-2829Dboxagc encounter procedureII Kofi Bowers Work Phone: [facility]-Sleep LabStart: 06-01-2022 End: 77-20-1324koyeczyjiyQEEGIKV BOESUniversity [facility] Lakewaytart: 05-18-2022 End: 82-85-3121gagmunlrqkNHHEJAR BOESFacility:M2Puwon: 05-05-2022 End: 83-26-2705hxfvdxyzbmDOXCHGI BOESFacility:P6Vwlhe: 04-28-2022 End: 74-04-7741nosdoytygbIAYTEYG BOESUniversCleveland Clinic Akron Generaltart: 04-08-2022 End: 02-19-1847kpfxrnsndwQH SERENITY [place] GARCIA .Facility:R3Rsjwg: 02-10-2022 End: 85-06-2523jnlvfyafwnDZ SERENITY S GARCIA .Facility:S6Csuwd: 01-26-2022 End: 82-91-3184kabflbzryxJD SERENITY S GARCIA .Facility:K6Giewu: 01-06-2022 End: 37-36-0071xfwkyskpboYW JOE MUKHERJEEFacility:N3Vspky: 01-04-2022 End: 80-61-3021nvxvrtuxzgXR KOFI BOWERSFacility:X7Ehqfc: 57-64-9398egmhilczec MOHAMAD ALGHOTHANIFacility:M0Zkmom: 11-30-2021 End: 28-31-5132ucyyjudcosTY KOFI KAYLEYFacility:A8Lhzgf: 60-26-5729wsjbebhfut BETZAIDA ZIMMER .Facility:L2Fmnbe: 11-03-2021 End: 10-31-8787exymxssrjhKXKCKQA ALGHOTHANIFacility:K2Unsox: 10-30-2021 End: 57-76-6098bgtpivgoseBH KOFI BOWERSFacility:L0Ugicd: 07-02-2021 End: 91-62-9545papwuihjkkIxgsq Kurtz Other [facility] Other Start: 79-20-5852Tbjlat outpatient visit 15 minutes Olamide ChingVan Wert County [facility] Procedures DateProcedureProcedure DetailPerforming ClinicianStart: 06-68-7955Pycrjohhndivn metabolic panelKofi Bowers MD Work Phone: Start: 76-21-6929Uyozr panelKofi Bowers MD Work Phone: Start: 35-75-2048Czygo albumin quantitativeKofi Bowers MD Work Phone: Start: 46-87-1884Crbdsaodzc glycosylated x8pWtvjlcKofi Bowers MD Work Phone: Start: 04-89-2405Amild spine thoracic 2 viewsGeneric External Data ProviderStart: 79-43-4036Aydxazlzxt glycosylated n3lKgpplSkye Goode PA Work Phone: Start: 41-71-8141Lrjqqoioxi glycosylated d1kLzvlhSkye Goode PA Work Phone: Start: 25-49-5204FKV BASIC METABOLIC PANELGeneric External Data ProviderStart: 38-51-4691Zjfbxq img dx retinl dis w/narciso & report uni/bDcollin Bowers MD Work Phone: Start: 70-42-3741Ldjumgzrfx glycosylated d2rWqcoqwKofi Bowers MD Work Phone: Plan of Treatment DateCare ActivityDetailAuthorStart: 27-95-2769Zumduibv screeningDiabetes: Retinopathy ScreeningNOMS HealthcareStart: 99-11-1768Hokav screening for protein Diabetes: Urine Protein ScreeningNORI HealthcareStart: 09-03-2026Medicare Annual Wellness (AWV)Medicare Annual Wellness (AWV)NOMS HealthcareStart: 07-17-2025 Hemoglobin A1c measurementDiabetes: Hemoglobin H5KCZPP HealthcareStart: 06-17-2025 End: 43-35-3356Fgbpuil encounter xhrpalpci38/03/2025 11:30 AM EST Office Visit [facility] [place] [facility] [address] [place] [id number] Kofi Bowers MD [address] [place] [address] N[facility] [place] [facility] MedinceStart: 06-07-2025 Hemoglobin A1c measurementDiabetes: Hemoglobin G4XMCNW HealthcareStart: 06-06-2025 End: 86-83-9714Dkwqlfl encounter vthtfroyu30/23/2025 9:00 AM EDT Office Visit [facility] [place] [facility] [address] [place] [address] Kofi Bowers MD [address] [place] [address] ArrivedNOMS [place] Rowe MedinceComment on above:ArrivedStart: 29-91-6114Qpsdvdwe screeningDiabetes: Retinopathy ScreeningNOMS HealthcareStart: 04-17-2025 End: 07-69-4909Uwgzdnb encounter procedureNOMS CI FMComment on above:Arrived Start: 28-05-5886Qsvghvbqhg A1c measurementDiabetes: Hemoglobin W7YAINE HealthcareStart: 31-65-6572Hasgyaynn vaccinationInfluenza Vaccine (#1)NOMS HealthcareStart: 08-26-2025Medicare Annual Wellness (AWV)Medicare Annual Wellness (AWV)NOMS HealthcareStart: 92-30-4906Vzipb screening for protein Diabetes: Urine Protein ScreeningNOMS HealthcareStart: 02-11-2025 End: 58-38-6887Hlhjeyi encounter procedureNOMS CI FMComment on above:Arrived Start: 02-08-2025 End: 85-01-0307Zpkwjvi encounter edhorhbcs16/27/2025 11:15 AM EDT Office Visit [facility] [address] [facility] [address] [place] [address] Kofi Bowers MD [address] [place] [address] ArrivedNOMS CI FMComment on above:ArrivedStart: 01-17-2025 Urine screening for proteinDiabetes: Urine Protein ScreeningNORI Healthcare Start: 01-14-2025 End: 41-06-1609Ukziaip encounter /02/2025 1:00 PM EDT Office Visit [facility] [address] [place] [address] Skye Goode PA [address] [place] [address] ArrivedDELAWARE COUNTY [facility] FMComment on above:ArrivedStart: 26-39-1811Blqbfrioid A1c measurementDiabetes: Hemoglobin F1FALRT Healthcare Start: 08-28-2024 End: 39-06-4874Tjlckzr encounter amtumotkq42/14/2025 1:00 PM EST Office Visit [facility] [address] [place] [address] Skye Goode PA [address] [place] [address] ArrivedNORI CI FMComment on above:ArrivedStart: 08-13-2024 End: 42-08-9585Flmtgmc encounter bimtouvnn60/30/2024 1:15 PM EST Office Visit [facility] [address] [place] [address] Kofi Bowers MD [address] [place] [address] NOMS CI FMStart: 08-09-2024 End: 32-02-8473Hvfmmnf encounter ezbqxlbcu76/26/2024 1:15 PM EST Office Visit [facility] [address] [place] [address] Kofi Bowers MD [address] [place] [address] NOMS CI FMStart: 94-72-5839Smpxtjljlr A1c measurementDiabetes: Hemoglobin T9UQKQR HealthcareStart: 10-45-0710Ikzwqygyj vaccinationInfluenza Vaccine (#1)NOMS HealthcareStart: 04-09-2024 End: 74-45-0643Laiwgglplzxr/Creatinine panel in random UrineMicroalbumin / creatinine, urine ratio Lab Routine Type 2 diabetes mellitus without complication, without long-term current use of insulin ([facility]) Expected: 04/09/2024 (Approximate), Expires: 04/09/2025NOR[facility] Work Phone: Comment on above:Expected: 04/09/2024 (Approximate), Expires: 04/09/2025Start: 04-09-2024 End: 03-20-3964Gkilnhg encounter procedureNOMS CI FMComment on above:Arrived Start: 39-69-6075Nowcuerrez A1c measurementDiabetes: Hemoglobin L2JWXEZ HealthcareStart: 05-22-2024Medicare Annual Wellness (AWV)Medicare Annual Wellness (AWV)NOMS HealthcareStart: 89-66-6805Qvxys screening for protein Diabetes: Urine Protein ScreeningNORI HealthcareStart: 10-27-2023 End: 65-27-5151Natudyw encounter rujetwpiw41/14/2024 2:45 PM EDT Office Visit [facility] [address] [facility] [address] [place] [id number] Kofi Bowers MD [address] [facility] [address] [place] [address] NOMS CI FMStart: 93-79-5342Wmdnnopspn A1c measurementDiabetes: Hemoglobin U3BDTLW HealthcareStart: 25-99-1736Hvlyqwug screeningDiabetes: Retinopathy ScreeningNORI HealthcareStart: 59-84-7374Coohzgeeitbc Vaccine: 65+ Years (2 of 2 - PCV)Pneumococcal Vaccine: 65+ Years (2 of 2 - PCV)[facility] Immunizations Immunization DateImmunizationNotesCare DsmlgrbdFgoitmuv27-43-9934ryjito vaccine recombinantKofi Bowers MD Work Phone: [facility] HealthYqvnbkhiwg81-66-3099ypfjdh vaccine recombinant Skye FARIAS Work Phone: [facility] HealthDecnemuylb92-68-8023SBOXROE - Respiratory syncytial virus (RSV), vaccine, bivalent, protein subunit RSV prefusion F, dil uent reconstituted, 0.5 mL, PFSkye FARIAS Work Phone: [facility] HealthDgiqssicui81-38-4851coqekvpfx, high dose seasonal, preservative-freeSkye FARIAS Work Phone: [facility] HospitalBgkvihowve73-19-2856vhmirkumj virus vaccine, unspecified formulationKofi Bowers MD Work Phone: [facility] HealthEyuuzqakrx50-99-4866Kfpjkyfzu, High-dose Seasonal, Quadrivalent, Preservative Rosendo Bowers MD Work Phone: [phone] TechnologiesCrittenton Behavioral HealthMvszfrlaop40-88-4375kutqvmarm virus vaccine, unspecified formulationKofi Bowers MD Work Phone: [phone] [place], [place] [address]Uftszkiiba14-64-5541Whezxnfbb, injectable, Madin Meredith Canine Kidney, preservative free, quadrivalentKofi Bowers MD Work Phone: [phone] [place], [place] [address]Uanhiczzhn79-79-6284kbupwtsla, high dose seasonal, preservative-Rosendo Bowers MD Work Phone: [phone] [place], [place] [address]Wcdgvrkeaa01-48-4000Ndfsrkhy, trivalent, recombinant, injectable influenza vaccine, preservative Rosendo Bowers MD Work Phone: [phone]-[address] [place], [place] [address]Rxvdkvpqct48-95-8751ouqbfhuzf, injectable, quadrivalent, preservative Rosendo Bowers MD Work Phone: [phone]-[address] [place], [place] [address]Ddiudyitgx85-96-4695exqgurlcn, injectable, quadrivalent, preservative Rosendo Bowers MD Work Phone: [phone]-[address] [place], [place] [address]Xtvgndqqlm64-91-4745fhlfvctur, injectable, quadrivalent, preservative Rosendo Bowers MD Work Phone: [phone] [place], [place] [address]Vkalhipzts63-33-7000ofwifvt and diphtheria toxoids, adsorbed, preservative free, for adult use (5 Lf of tetanus toxoid and 2 Lf of diphtheria toxoid)Kofi Bowers MD Work Phone: [phone] [place], [place] [address]Sqltgmftjx81-92-6238kwtnnzptdfwt polysaccharide vaccine, 23 valentKofi Bowers MD Work Phone: [phone] [place] [address] Payers DatePayer CategoryPayerPolicy ID2023Medicare [id number] 2023Medicare (Managed Care) [id number] [id number] 2018MedicareMEBNVNSN [id number] [id number] [id number] 1960Private Health [id number]-iry [id number] 2.0.1.342725.3.57[id number] 2.0.1.371035.3.57[id number] 2.840.1.672358.3.57[id number] 2.840.1.383210.3.57[id number] 2.840.1.768221.3.579.2.81239-52-7255Pzkdyfe9990813 2.0.1.703005.3.579.2.85167-64-6185Llxducd7887310 2.840.1.608280.3.579.2.68000-58-6072Gfosdqg4851965 2.840.1.489382.3.579.2.15059-23-0722Ntosicv7424479 2.840.1.199649.3.579.2.53766-67-2352Nzdstop2891203 2.840.1.297236.3.579.2.60301-72-4533Njnnczg4931803 2.16840.1.290334.3.579.2.20063-30-4111Xpuydux9719469 2.16840.1.360184.3.579.2.94918-26-6161Phxwoid2375554 2.16.840.1.010381.3.579.2.44840-82-7421Hkavpyg4484355 2.16840.1.207329.3.579.2.74301-40-7160Hphbzkd3745085 2.840.1.117688.3.579.2.98118-92-1515Zxmobqg5378192 2.840.1.823600.3.579.2.06539-64-7680Xnsrmwn2728237 2.840.1.770587.3.579.2.28276-44-9258Lrnuyya7708513 2.840.1.395483.3.579.2.03474-02-8542Pwutgut58177203 2.840.1.302450.3.579.2.053549-40-0476Tuxrxsn041559038 2.840.1.591782.3.579.2.13351-13-4470Wstqkeu962342208 2.840.1.740480.3.579.2.86711-19-1273Lsdorre913172533 2.840.1.969163.3.579.2.58269-07-1301Qskcgbq351446542 2.840.1.627180.3.579.2.85067-59-1606Whmwvxj039885439 2.840.1.310047.3.579.2.62107-47-7426Rlhsirc852040332 2.840.1.428788.3.579.2.82559-93-1791Vrmgjmn443099142 2.16.840.1.393099.3.579.2.97324-37-1672Udvqywi33944406 2.16.840.1.908781.3.579.2.179706-29-7022Eimcwut45941696 2.16.840.1.713483.3.579.2.406655-29-4356Yvcbtly35315862 2.16.840.1.208641.3.579.2.042804-52-6498Azcxntv59325661 2..840.1.105397.3.579.2.158764-09-7400Kpeffyz84159301 2..840.1.318048.3.579.2.554827-13-1568Epgtbmy1951155 2..840.1.569500.3.579.2.350736-80-3144Wistcqb0434284 2.16.840.1.574850.3.579.2.1259MedicareMedicare423587832A c34097aa-e767-4b09-b16f-db1231401d29MedicareMedicare7FV9M19TK43 ic328d1c-100q-5822-8706-959x49l8pf65DpsapqeNlzxnd /[id number] cx71n650-1i28-5i49-1951-ko880h41s43eDozmtpr53164568 2.0.1.806930.3.579.2.531 Social History DateTypeDetailFacilityUnknown if ever smokedNort Condition One Other Start: 06-15-2018 End: 31-00-0663Fgksjlp smoking status NHISEx-smoker (finding)[facility]-0620[facility]23 End: 04-40-2995Tbw Assigned At BirthManor Condition One Other End: 58-03-9101Rjqfkhs of tobacco useCurrent smokerNOMS Healthcare End: 23-18-0519Hnpugzu of tobacco useCigarette SmokerNOMS HealthcareStart: 03-11-2023 End: 02-00-4649Nussmzl use and exposureSmokeless tobacco non-userNOMS Healthcare Start: 07-20-2023 End: 82-80-8357Mxkczrd intakeEx-drinker (finding)[facility] HealthcareStart: 07-20-2023 End: 98-65-6100Fdufjzm of Social functionNOMS HealthcareStart: 54-37-3135Uqzwshn CommentCaffeine: 1-2 cups per day; none soda/popNOMS HealthcareStart: 10-18-0480Ovy Assigned At BirthNot on fileINTERMOUNTAIN MEDICAL CENTER HealthcareStart: 24-15-3847Wib Female (finding)[facility] Hospitaltart: 98-50-9499LktNimtwfNXGX Healthcare Medical Equipment Procedure CodeEquipment CodeEquipment Original TextEquipment IdentifierDates1 each by In Vitro route [id number]: each [id number]: 08-10-8141Jwmzyv 1 each under the skin [id number]: 03-26-2025 Functional Status DgzcYdleilggykRuoebwGwltwjlg84-70-1293Cmvhwfj Health Questionnaire 2 item (PHQ- 2) [Reported][facility] HealthFqyszgeiix55-48-6498Wbnpnht Health Questionnaire 2 item (PHQ- 2) [Reported][facility] HealthOipzjiojfi86-70-7542Lfeyfjs Health Questionnaire 2 item (PHQ- 2) [Reported][facility] HealthZdsvoltckj86-31-9300Cgylhkg Health Questionnaire 2 item (PHQ- 2) [Reported][facility] Clinical Notes 11-03-2021 to 06-06-2025 Note Date & UkrlQkhzRkyjbnxu60-77-4370 History of Present illness Narrative* Kofi Bowers MD - 06/06/2025 9:00 AM EDT Images from the original note were not included. Subjective Patient ID: Konrad Mobley is a 80 y.o. female who [...] the evening. cholecalciferol (Vitamin D-3) 1.25 MG (25998 UT) tablet Vitamin D3 5000IU empagliflozin (Jardiance) [...] two times daily. D.A.W. as Sigma or [employer] ONLY for 90 days 200 tablet [...] mass index (BMI) of 40.0-44.9 in adult ([facility]) Bronchitis Bruise of breast Cataract Colon polyps COVID-19 03/2021 Deviated nasal septum Diabetes mellitus (HCC) Encounter for diabetic foot exam (HCC) Family history of colon cancer Brother Fracture Rt orbital fracture, LUCIUS elbow fracture - shipped to [facility] 07/31/15. GERD (gastroesophageal reflux disease) History of being hospitalized 07/2015 [facility] - Post fall -rt orbital fx, LUCIUS elbow fracture, facial contusion History of colon polyps Hyperlipidemia Hypertension Labyrinthitis Left cervical radiculopathy Low back pain Measles Morbid obesity ([facility]) Osteopenia Pneumonia Posterior vitreous detachment of both [...] Wt 190 lb SpO2 96% BMI 37.11 kg/m Smoking Status Former BSA 1.91 m Review of Systems Musculoskeletal: Positive for back [...] or fail to improve. documented in this encounterCrittenton Behavioral HealthJdweginsrr32-96-2567 Telephone encounter Note* Telephone Encounter - MAREK CORONEL - 05/13/2025 3:48 PM EDT Spoke with patient and she is NOT taking Metformin, but she is taking Farxiga. [facility] HealthRjwyrmgueb53-67-6593 Miscellaneous Notes* Telephone Encounter - MAREK CORONEL - 05/13/2025 3:48 PM EDT Spoke with patient and she is NOT taking Metformin, but she is taking Farxiga. * Telephone Encounter - MAREK CORONEL - 05/13/2025 2:29 PM EDT Spoke with patient and she was told to go off the Trulicity and metformin. I did see at her 03/07/25visit the Metformin was stopped but not the Trulicity. Please advise. Her BS are running from 120 to 160 * Telephone Encounter - Chelle Guallpa - 05/13/2025 2:05 PM EDT Patient called stating that her mail order pharmacy keeps sending her truclity. She said that Dr. Bowers had her off of it and she wasn't sure if she should start taking it again or not. She said thatshe needs to know if she needed to call that other pharmacy as she has like a 4 months supply savedup of this medication documented in this encounterCrittenton Behavioral HealthThqydxbkny99-15-6932 Telephone encounter Note* Telephone Encounter - MAREK CORONEL - 05/13/2025 2:29 PM EDT Spoke with patient and she was told to go off the Trulicity and metformin. I did see at her 03/07/25visit the Metformin was stopped but not the Trulicity. Please advise. Her BS are running from 120 to 160 [facility] HealthLianvijysw70-57-7145 Telephone encounter Note* Telephone Encounter - Chelle Guallpa - 05/13/2025 2:05 PM EDT Patient called stating that her mail order pharmacy keeps sending her truclity. She said that Dr. Bowers had her off of it and she wasn't sure if she should start taking it again or not. She said thatshe needs to know if she needed to call that other pharmacy as she has like a 4 months supply savedup of this medication [facility] HealthKoomnhheqs77-30-7955 Telephone encounter Note* Telephone Encounter - Charlette Chirinos - 05/01/2025 12:40 PM EDT Konrad stopped in. She stated that Dr. Bowers had her on Metformin on and off. She stated she did notwant to take it because it was causing bad constipation. She did ask if Dr. Bowers was going to replace it the Metformin or just have her not take it? Konrad also needs refills on her liothyronine (Cytomel) 25 MCG and her traMADol (Ultram) 50 MG but said the Tramadol could not be filled til tomorrow. [place] [id number] Miscellaneous Notes* Telephone Encounter - Charlette Chirinos - 05/01/2025 12:40 PM EDT Konrad stopped in. She stated that Dr. Bowers had her on Metformin on and off. She stated she did notwant to take it because it was causing bad constipation. She did ask if Dr. Bowers was going to replace it the Metformin or just have her not take it? Konrad also needs refills on her liothyronine (Cytomel) 25 MCG and her traMADol (Ultram) 50 MG but said the Tramadol could not be filled til tomorrow. * Telephone Encounter - Lilly Granda LPN - 04/29/2025 10:12 AM EDT Can you advise if pt is supposed to be on this medication you stopped it a couple months ago * Telephone Encounter - Chelle Guallpa - 04/29/2025 10:07 AM EDT [facility] documented in this encounterCrittenton Behavioral HealthKgbzfxtrkf49-10-9269 Telephone encounter Note* Telephone Encounter - Lilly Granda LPN - 04/29/2025 10:12 AM EDT Can you advise if pt is supposed to be on this medication you stopped it a couple months ago [facility] HealthZwmtnbquhg52-49-9092 Telephone encounter Note* Telephone Encounter - Chelle Guallpa - 04/29/2025 10:07 AM EDT Metformin sent to [facility] [place] [facility] HealthLpyxmtrbld45-74-4351 Telephone encounter Note* Telephone Encounter - MAREK CORONEL - 04/23/2025 4:13 PM EDT Farxiga was sent to [facility], patient notified [facility] HealthVggzsnklrm27-21-8874 Miscellaneous Notes* Telephone Encounter - MAREK CORONEL - 04/23/2025 4:13 PM EDT Farxiga was sent to [facility], patient notified * Telephone Encounter - MAREK CORONEL - 04/22/2025 11:54 AM EDT Metformin was fill In February. With 9 refills * Telephone Encounter - Chelle Guallpa - 04/22/2025 11:23 AM EDT [facility] [place] [facility] was [facility] by ins pt wondered what the next steps would be. documented in this encounterCrittenton Behavioral HealthFyworkskyy71-52-5270 Telephone encounter Note* Telephone Encounter - MAREK CORONEL - 04/22/2025 11:54 AM EDT Metformin was fill In February. With 9 refills [facility] HealthWjszysiqka69-07-1362 Telephone encounter Note* Telephone Encounter - Chelle Guallpa - 04/22/2025 11:23 AM EDT [facility] [place] [facility] was denied by ins pt wondered what the next steps would be. [facility] Towyqhgdif49-85-9479 Telephone encounter Note* Telephone Encounter - DINORA Lopez - 04/17/2025 4:25 PM EDT Lantus sent. [facility] HealthDhdenvnbtg50-91-5844 Miscellaneous Notes* Telephone Encounter - DINORA Lopez - 04/17/2025 4:25 PM EDT Lantus sent. * Telephone Encounter - MAREK CORONEL - 04/17/2025 2:15 PM EDT [facility] called ans states that they no longer get the levemir injections do to it being discontinued. They have been changing to Lantus. Please send in a new RX. documented in this encounterCrittenton Behavioral HealthVjwhcnzjxm60-83-0621 Telephone encounter Note* Telephone Encounter - MAREK CORONEL - 04/17/2025 2:15 PM EDT [facility] called ans states that they no longer get the levemir injections do to it being discontinued. They have been changing to Lantus. Please send in a new RX. [facility] HealthKchzmtaijv51-44-3788 History of Present illness Narrative* Kofi Bowers MD - 04/17/2025 11:00 AM EDT Images from the original note were not included. HPI Medicare Annual Wellness Visit Subsequent Additional comments: Discuss plan with medications: last visit pt was advised to stop metformin andtrulicity and was started on samples of farxiga 5mg -- need to discuss plan going forward with meds-- sugars average 130-140 Last edited by Lilly Granda LPN on 04/17/2025 11:01 AM. Subjective : Chief Complaint: Konrad Mobley is an 79 y.o. female here for an annual wellness visit. I have reviewed and reconciled the history and medication list with the patient today. Current Outpatient Medications Medication Sig Dispense Refill acarbose (Precose) 100 [...] the evening. cholecalciferol (Vitamin D-3) 1.25 MG (05920 UT) tablet Vitamin D3 5000IU furosemide (Lasix) 40 MG tablet TAKE 1 TABLET BY MOUTH IN THE MORNING 30 tablet 11 Glucose Blood (Blood Glucose Test) strip 1 each by In Vitro route Daily 100 strip 3 insulin detemir (Levemir FlexTouch) 100 UNIT/ML pen INJECT 60 UNITS SUBCUTANEOUSLY EACH MORNING for25 Lancets 30G misc 1 each Daily 100 each 3 liothyronine (Cytomel) 25 MCG tablet 0.5 tablet on an empty stomach Orally two times daily. D.A.W. as Sigma or [employer] ONLY for 90 days 200 tablet [...] needed for severe pain 120 tablet 0 zonisamide (Zonegran) 50 MG capsule Take 50 mg by mouth at bedtime No current facility-administered medications for this visit. [...] at all Patient Health Questionnaire-2 Score: 0 [place] Fall Risk History of Falling, Immediate or Within 3 Months: No Secondary Diagnosis: No Ambulatory Aid: Crutches/cane/walker Health Risk Assessment Form Do you need help eating, bathing, using the toilet, dressing, or getting around your home?: No Can you prepare your own meals?: Yes Can you do your own housework without help?: Yes Can you shop for groceries or clothes without help?: Yes Do you exercise for about 20 minutes 3 or more days a week?: Yes How confident are you that you can control and manage most of your health problems?: Very confident Can you mange your money, credit cards and accounts, pay bills and taxes?: Yes Cognitive Screening Three Word Registration: Apple, Watch, Isaura Clock Drawing: Normal Clock - 2 Three Word Recall: All 3 words correct - 3 Total Score (0-5 Points): 5 Advance Care Planning Do you have a living will?: Yes Do you have a medical power of head of physics?: Yes Objective : BP 134/74 Pulse 80 Ht 5' Wt 185 lb SpO2 96% BMI 36.13 kg/m No results found. Physical Exam Constitutional: [...] No bony tenderness. Decreased range of motion. Negativeright straight leg raise test and negative left straight leg raise test. Skin: General: Skin is warm and dry. Neurological: General: No focal deficit present. Mental Status: She is alert and oriented to person, place, and time. Gait: Gait abnormal (Quad cane for ambulation). Psychiatric: Mood and Affect: Mood normal. Behavior: Behavior normal. Office Visit on 04/17/2025 Component Date Value Ref Range Status RESULTS 05/03/2024 abn Final Hemoglobin A1C 04/17/2025 7.8 Final CREATININE, RANDOM URINE 04/19/2025 40 20 - 275 mg/dL Final ALBUMIN, URINE 04/19/2025 0.3 See Note: mg/dL Final Comment: Reference Range: Reference Range Not established ALBUMIN/CREATININE RATIO, RANDOM U* 04/19/2025 8 <30 mg/g creat Final Comment: The ADA defines abnormalities in albumin excretion as follows: Albuminuria Category Result (mg/g creatinine) Normal to Mildly increased <30 Moderately increased 30-299 Severely increased > OR = 300 The ADA recommends that at least two of three specimens collected within a 3-6 month period be abnormal before considering a patient to be within a diagnostic category. Glucose 04/19/2025 129 (H) 65 - 99 mg/dL Final Comment: Fasting reference interval For someone without known diabetes, a glucose value >125 mg/dL indicates that they may have diabetes and this should be confirmed with a follow-up test. BUN 04/19/2025 17 7 - 25 mg/dL Final Creatinine 04/19/2025 0.90 0.60 - 0.95 mg/dL Final EGFR 04/19/2025 65 > OR = 60 mL/min/1.73m2 Final BUN/CREATININE RATIO 04/19/2025 SEE NOTE: 6 - 22 (calc) Final Comment: Not Reported: BUN and Creatinine are within reference range. Sodium 04/19/2025 142 135 - 146 mmol/L Final Potassium, Bld 04/19/2025 4.0 3.5 - 5.3 mmol/L Final Chloride 04/19/2025 102 98 - 110 mmol/L Final Carbon Dioxide 04/19/2025 28 20 - 32 mmol/L Final Calcium 04/19/2025 9.4 8.6 - 10.4 mg/dL Final PROTEIN, TOTAL 04/19/2025 6.9 6.1 - 8.1 g/dL Final ALBUMIN 04/19/2025 4.2 3.6 - 5.1 g/dL Final GLOBULIN 04/19/2025 2.7 1.9 - 3.7 g/dL (calc) Final ALBUMIN/GLOBULIN RATIO 04/19/2025 1.6 1.0 - 2.5 (calc) Final BILIRUBIN, TOTAL 04/19/2025 0.4 0.2 - 1.2 mg/dL Final ALKALINE PHOSPHATASE 04/19/2025 85 37 - 153 U/L Final AST 04/19/2025 13 10 - 35 U/L Final ALT 04/19/2025 12 6 - 29 U/L Final CHOLESTEROL, TOTAL 04/19/2025 154 <200 mg/dL Final HDL CHOLESTEROL 04/19/2025 55 > OR = 50 mg/dL Final TRIGLYCERIDES 04/19/2025 191 (H) <150 mg/dL Final LDL CHOLESTEROL 04/19/2025 73 mg/dL (calc) Final Comment: Reference range: <100 Desirable range <100 mg/dL for primary prevention; <70 mg/dL for patients with CHD or diabetic patients with > or = 2 CHD risk factors. LDL-C is now calculated using the Jefe calculation, which is a validated novel method providing better accuracy than the Friedewald equation in the estimation of LDL-C. Tien TUTTLE et al. ARON. 2013;310(19): 2086-7050 (http://education.mSnap.com/faq/NLY908) CHOL/HDLC RATIO 04/19/2025 2.8 <5.0 (calc) Final NON HDL CHOLESTEROL 04/19/2025 99 <130 mg/dL (calc) Final Comment: For patients with diabetes plus 1 major ASCVD risk factor, treating to a non-HDL-C goal of <100 mg/dL (LDL-C of <70 mg/dL) is considered a therapeutic option. Assessment/Plan : The following health maintenance schedule was reviewed with the patient and provided in printed form in the after visit summary: Health Maintenance Topic Date Due Pneumococcal Vaccine: 65+ Years (2 of 2 - PCV) 05/15/2014 Diabetes: Urine Protein Screening 04/09/2025 Medicare Annual Wellness (AWV) 04/09/2025 Influenza Vaccine (1) 04/15/2025 Diabetes: Retinopathy Screening 05/03/2025 Diabetes: Hemoglobin A1C 07/17/2025 Advance Care Planning Assessment/Plan Diagnoses and all orders for this visit: Routine general medical examination at health care facility ACP (advance care planning) Diabetes mellitus type 2 with neurological manifestations (HCC) - POCT Glycated hemoglobin, total - Comprehensive metabolic panel; Future - Lipid panel; Future - Microalbumin / creatinine urine ratio - A1C today was 7.8%. I suggested she restart Metformin, but continue the Farxiga 5mg a day (samples) - RTC 2 months Orders Placed This Encounter Procedures POCT Glycated hemoglobin, total Diabetic Retinopathy Screening - OU - Both Eyes This order was created through External Result Entry Electronically signed by Kofi Bowers MD on April 17, 2025 documented in this encounterCrittenton Behavioral HealthZajroebwpl44-12-2303 Telephone encounter Note* Telephone Encounter - DINORA Lopez - 04/04/2025 10:14 AM EDT OARRS reviewed, Rx sent into patient's pharmacy. [facility] HealthFhuqusdrpk60-84-6871 Miscellaneous Notes* Telephone Encounter - DINORA Lopez - 04/04/2025 10:14 AM EDT OARRS reviewed, Rx sent into patient's pharmacy. documented in this encounterCrittenton Behavioral HealthEteqbhqjum91-92-5713 History of Present illness Narrative* Kofi Bowers MD - 02/11/2025 2:15 PM EDT Images from the original note were [...] THREE TIMES DAILY NEEDED Calcium Citrate-Vitamin D (Vishnu-Citrate Plus Vitamin D) 250-2.5 MG-MCG tablet Take 1 tablet by mouthin the morning and 1 tablet in the evening. cholecalciferol (Vitamin D-3) 1.25 MG (35573 UT) tablet Vitamin D3 5000IU furosemide (Lasix) 40 MG tablet TAKE 1 TABLET BY MOUTH IN THE MORNING 30 tablet 11 insulin detemir (Levemir FlexTouch) 100 UNIT/ML pen INJECT 60 UNITS SUBCUTANEOUSLY EACH MORNING for25 liothyronine (Cytomel) 25 MCG tablet 0.5 tablet on an empty stomach Orally two times daily. D.A.W. as Sigma or [employer] ONLY for 90 days 200 tablet [...] mass index (BMI) of 40.0-44.9 in adult ([facility]) Bronchitis Bruise of breast Cataract Colon polyps COVID-19 03/2021 Deviated nasal septum Diabetes mellitus (HCC) Encounter for diabetic foot exam ([facility]) Family history of colon cancer Brother Fracture Rt orbital fracture, LUCIUS elbow fracture - shipped to [facility] 07/31/15. GERD (gastroesophageal reflux disease) History of being hospitalized 07/2015 [facility] - Post fall -rt orbital fx, LUCIUS elbow fracture, facial contusion History of colon polyps Hyperlipidemia Hypertension Labyrinthitis Left cervical radiculopathy Low back pain Measles Morbid obesity (CMS-HCC) Osteopenia Pneumonia Posterior vitreous detachment of both [...] No follow-ups on file. documented in this encounterCrittenton Behavioral HealthUdzsrvwrty28-83-4194 History of Present illness Narrative* Kofi Bowers MD - 02/08/2025 11:15 AM EDT Images from the original note were not included. Subjective Patient ID: Konrad Mobley is a 79 y.o. female who presents for Nausea. Nausea / Vomiting Patient complains of nausea and vomiting. Onset of symptoms was 6 days ago. Vomiting has occurred 2times last Tuesday and has not vomitied since then .Symptoms have been associated with belching. Andocc. chills Patient denies fever, hematemesis, and melena. [...] THREE TIMES DAILY NEEDED Calcium Citrate-Vitamin D (Vishnu-Citrate Plus Vitamin D) 250-2.5 MG-MCG tablet Take 1 tablet by mouthin the morning and 1 tablet in the evening. cholecalciferol (Vitamin D-3) 1.25 MG (28152 UT) tablet Vitamin D3 5000IU furosemide (Lasix) 40 MG tablet TAKE 1 TABLET BY MOUTH IN THE MORNING 30 tablet 11 insulin detemir (Levemir FlexTouch) 100 UNIT/ML pen INJECT 60 UNITS SUBCUTANEOUSLY EACH MORNING for25 liothyronine (Cytomel) 25 MCG tablet 0.5 tablet on an empty stomach Orally two times daily. D.A.W. as Sigma or [employer] ONLY for 90 days 200 tablet [...] mass index (BMI) of 40.0-44.9 in adult ([facility]) Bronchitis Bruise of breast Cataract Colon polyps COVID-19 03/2021 Deviated nasal septum Diabetes mellitus (HCC) Encounter for diabetic foot exam ([facility]) Family history of colon cancer Brother Fracture Rt orbital fracture, LUCIUS elbow fracture - shipped to [facility] 07/31/15. GERD (gastroesophageal reflux disease) History of being hospitalized 07/2015 [facility] - Post fall -rt orbital fx, LUCIUS elbow fracture, facial contusion History of colon polyps Hyperlipidemia Hypertension Labyrinthitis Left cervical radiculopathy Low back pain Measles Morbid obesity ([facility]) Osteopenia Pneumonia Posterior vitreous detachment [...] ER if symptoms progress. RTC 3-4 days forrecheck. Will need DM med adjustment. Follow up in about 4 days (around 02/12/2025). documented in this encounterCrittenton Behavioral HealthCbaptejbqn79-08-6623 History of Present illness Narrative* DINORA Lopez - 01/14/2025 1:00 PM EDT Images from the original note were not included. Subjective Patient ID: Konrad Mobley is a 79 y.o. female who presents for back spasms. Konrad is present today for evaluation of back spasms. Admits this has been going on for about 1 week and it's in her lower back. She did have a stimulator implanted back in July and she is afraidit could be that causing her issues. She [...] at the same time. Calcium Citrate-Vitamin D (Vishnu-Citrate Plus Vitamin D) 250-2.5 MG-MCG tablet Take 1 tablet by mouthin the morning and 1 tablet in the evening. cholecalciferol (Vitamin D-3) 1.25 MG (97337 UT) tablet Vitamin D3 5000IU furosemide (Lasix) 40 MG tablet TAKE 1 TABLET BY MOUTH IN THE MORNING 30 tablet 11 insulin detemir (Levemir FlexTouch) 100 UNIT/ML pen INJECT 60 UNITS SUBCUTANEOUSLY EACH MORNING for25 liothyronine (Cytomel) 25 MCG tablet 0.5 tablet on an empty stomach Orally two times daily. D.A.W. as Sigma or [employer] ONLY for 90 days 200 tablet [...] mass index (BMI) of 40.0-44.9 in adult (CMS/[facility]) Bronchitis Bruise of breast Cataract Colon polyps COVID-19 03/2021 Deviated nasal septum Diabetes mellitus (CMS/[facility]) Encounter for diabetic foot exam ([facility]) Family history of colon cancer Brother Fracture Rt orbital fracture, LUCIUS elbow fracture - shipped to [facility] 07/31/15. GERD (gastroesophageal reflux disease) History of being hospitalized 07/2015 [facility] - Post fall -rt orbital fx, [...] No bony tenderness. Decreased range of motion. Negativeright straight leg raise test and negative left [...] hyperglycemia, without long-term current use of insulin ([facility]) - POCT Glycated hemoglobin, total Advised pt that her HgbA1c remains well controlled at 6.4. Will continue to monitor. Follow up in about 3 months (around 04/10/2025) for Medicare Wellness Visit. documented in this [facility]04-21-2025 Telephone encounter Note* Telephone Encounter - Chelle Guallpa - 12/03/2024 1:46 PM EDT traMADol (Ultram) 50 MG tablet Ddm in [place] [facility] HealthMnmlwgnera42-13-8573 Miscellaneous Notes* Telephone Encounter - Chelle Guallpa - 12/03/2024 1:46 PM EDT traMADol (Ultram) 50 MG tablet Ddm in [place] documented in this [facility]02-19-2025 Telephone encounter Note* Telephone Encounter - DINORA Lopez - 10/03/2024 1:36 PM EST OARRS reviewed, Rx sent into patient's pharmacy. [place] [id number] Miscellaneous Notes* Telephone Encounter - DINORA Lopez - 10/03/2024 1:36 PM EST OARRS reviewed, Rx sent into patient's pharmacy. * Telephone Encounter - Chelle Guallpa - 10/03/2024 11:19 AM EST traMADol (Ultram) [address] [facility] [place] She is calling a day early because [facility] to fill it. documented in this encounterCrittenton Behavioral HealthQmvnzrirrf84-38-7890 Telephone encounter Note* Telephone Encounter - Chelle Guallpa - 10/03/2024 11:19 AM EST traMADol (Ultram) [address] [facility] [place] She is calling a day early because [facility] to fill it. [facility] [id number] Telephone encounter Note* Telephone Encounter - Benita Busch - 09/03/2024 11:44 AM EST traMADol (Ultram) [facility] [place] [facility] HealthDeaomhsens58-27-5897 Miscellaneous Notes* Telephone Encounter - Benita Busch - 09/03/2024 11:44 AM EST traMADol (Ultram) [facility] [place] documented in this encounterCrittenton Behavioral HealthCxskqfvsrc09-01-8902 History of Present illness Narrative* DINORA Lopez - 08/28/2024 1:00 PM EST Images from the original note were not included. HPI Insomnia Additional comments: Pt states she had a bone stimulator placement surgery on 08/13/24 at [facility] and she is actually sleeping better at [...] at the same time. Calcium Citrate-Vitamin D (Vishnu-Citrate Plus Vitamin D) 250-2.5 MG-MCG tablet Take 1 tablet by mouthin the morning and 1 tablet in the evening. cholecalciferol (Vitamin D-3) 1.25 MG (83214 UT) tablet Vitamin D3 5000IU furosemide (Lasix) 40 MG tablet TAKE 1 TABLET (40 MG) BY MOUTH IN THE MORNING. 30 tablet 10 insulin detemir (Levemir FlexTouch) 100 UNIT/ML pen INJECT 60 UNITS SUBCUTANEOUSLY EACH MORNING for25 liothyronine (Cytomel) 25 MCG tablet 0.5 tablet on an empty stomach Orally two times daily. D.A.W. as [employer] or [employer] ONLY for 90 days 200 tablet 3 losartan-hydroCHLOROthiazide (Hyzaar) 100-25 MG tablet Take 1 tablet by mouth Daily 100 tablet 2 lovastatin (Mevacor) 20 MG tablet TAKE 1 TABLET BY MOUTH ONCE DAILY 100 tablet 3 metFORMIN (Glucophage) 1000 MG tablet TAKE 1 TABLET (1,000 MG) BY MOUTH IN THE MORNING AND 1 TABLET(1,000 MG) IN THE EVENING. TAKE WITH MEALS. [...] 1 tablet (6.25 mg) by mouth as neededat bedtime for sleep Do not crush, chew, [...] mellitus (CMS/HCC) Encounter for diabetic foot exam ([facility]) Family history of colon cancer Brother Fracture Rt orbital fracture, LUCIUS elbow fracture - shipped to [facility] 07/31/15. GERD (gastroesophageal reflux disease) History of being hospitalized 07/2015 [facility] - Post fall -rt orbital fx, [...] for Medicare Wellness Visit. documented in this [facility]12-19-2024 Telephone encounter Note* Telephone Encounter - Chelle Guallpa - 08/02/2024 10:31 AM EST traMADol (Ultram) [address] [id number] Miscellaneous Notes* Telephone Encounter - Chelle Guallpa - 08/02/2024 10:31 AM EST traMADol (Ultram) [address] [facility] documented in this [facility]11-18-2024 Telephone encounter Note* Telephone Encounter - Chelle Guallpa - 07/02/2024 9:45 AM EST traMADol (Ultram) 50 MG tablet liothyronine (Cytomel) 25 MCG tablet Ddm in [facility] HealthVqmuefjmdg09-59-1874 Miscellaneous Notes* Telephone Encounter - Chelle Guallpa - 07/02/2024 9:45 AM EST traMADol (Ultram) 50 MG tablet liothyronine (Cytomel) 25 MCG tablet Ddm in jacob documented in this [facility]10-21-2024 Telephone encounter Note* Telephone Encounter - DINORA Lopez - 06/04/2024 4:27 PM EDT OARRS reviewed, Rx sent into patient's pharmacy. [facility]Iqaaxixcql03-19-5379 Miscellaneous Notes* Telephone Encounter - DINORA Lopez - 06/04/2024 4:27 PM EDT OARRS reviewed, Rx sent into patient's pharmacy. * Telephone Encounter - Chelle Guallpa - 06/04/2024 3:51 PM EDT traMADol (Ultram) 50 MG tablet Ddm in j[place]ob documented in this encounterCr[facility] HealthRqapxjrqgp67-25-0903 Telephone encounter Note* Telephone Encounter - Chelle Guallpa - 06/04/2024 3:51 PM EDT traMADol (Ultram) 50 MG tablet Ddm in [facility] HealthFrhaanptdo17-79-0111 Telephone encounter Note* Telephone Encounter - Chellechelsey Guallpa - 05/07/2024 1:39 PM EDT traMADol (Ultram) 50 MG tablet Ddm in [facility] HealthStpcgifikc07-17-2629 Miscellaneous Notes* Telephone Encounter - Chelle Saloni - 05/07/2024 1:39 PM EDT traMADol (Ultram) 50 MG tablet Ddm in j[place]ob documented in this encounterCrittenton [facility] HealthGehfuwqvpr71-59-4291 History of Present illness Narrative* Kofi Bowers MD - 04/09/2024 11:00 AM EDT Images from the original note [...] at the same time. Calcium Citrate-Vitamin D (Vishnu-Citrate Plus Vitamin D) 250-2.5 MG-MCG tablet Take 1 tablet by mouthin the morning and 1 tablet in the evening. cetirizine (ZyrTEC) 10 MG tablet 1 (one) time each day at the same time. cholecalciferol (Vitamin D-3) 1.25 MG (15280 UT) tablet Vitamin D3 5000IU furosemide (Lasix) 40 MG tablet TAKE 1 TABLET (40 MG) BY MOUTH IN THE MORNING. 30 tablet 10 insulin detemir (Levemir FlexTouch) 100 UNIT/ML pen INJECT 60 UNITS SUBCUTANEOUSLY EACH MORNING for25 liothyronine (Cytomel) 25 MCG tablet 0.5 tablet on an empty stomach Orally two times daily. D.A.W. as [employer] or [employer] ONLY for 90 days 200 tablet 3 losartan-hydroCHLOROthiazide (Hyzaar) 100-25 MG tablet Take 1 tablet by mouth Daily 100 tablet 2 lovastatin (Mevacor) 20 MG tablet TAKE 1 TABLET BY MOUTH ONCE DAILY 30 tablet 10 metFORMIN (Glucophage) 1000 MG tablet TAKE 1 TABLET (1,000 MG) BY MOUTH IN THE MORNING AND 1 TABLET(1,000 MG) IN THE EVENING. TAKE WITH MEALS. [...] mg) by mouth as needed at bedtime forsleep Do not crush, chew, or split. (Patient [...] Do you have a medical power of head of physics?: Yes Who is your medical power of head of physics?: her son Objective : BP 115/65 Pulse [...] a living will and durable power of head of physics for healthcare. We discussed telling ortiz people [...] complication, without long-term current use of insulin ([facility]) - POCT glycosylated hemoglobin (Hb A1C) docked device - Microalbumin / creatinine, urine ratio; Future Morbid (severe) obesity due to excess calories ([facility]) Essential (primary) hypertension ([facility]) Body mass index (BMI) 35.0-35.9, adult Peripheral vascular disease, unspecified ([facility]) Iliopsoas bursitis of right hip [...] on April 09, 2024 documented in this encounterCr[facility] HealthGqaueodvjx28-26-9760 Telephone encounter Note* Telephone Encounter - DINORA Lopez - 04/04/2024 3:56 PM EDT OARRS reviewed, Rx sent into patient's pharmacy. [facility] HealthYgbwgctqfv39-67-4564 Miscellaneous Notes* Telephone Encounter - DINORA Lopez - 04/04/2024 3:56 PM EDT OARRS reviewed, Rx sent into patient's pharmacy. * Telephone Encounter - Chelle Guallpa - 04/04/2024 3:08 PM EDT traMADol (Ultram) 50 MG tablet DDM IN [facility] documented in this encounterCrittenton Behavioral HealthDwbyvywwov69-36-2618 Telephone encounter Note* Telephone Encounter - Chelle Guallpa - 04/04/2024 3:08 PM EDT traMADol (Ultram) 50 MG tablet DDM IN [place] HealthLoheofrfgq71-03-4840 Telephone encounter Note* Telephone Encounter - DINORA Lopez - 09/29/2023 12:33 PM EST OARRS reviewed, Rx sent into patient's pharmacy. [facility] HealthFmzhssgjbc68-17-5801 Miscellaneous Notes* Telephone Encounter - DINORA Lopez - 09/29/2023 12:33 PM EST OARRS reviewed, Rx sent into patient's pharmacy. documented in this encounterCrittenton Behavioral HealthDxrgopdozf11-18-2319 Evaluation note* Encounter Date Diagnosis Assessment Notes Treatment Notes Treatment Clinical Notes Jun, Obstructive sleep apnea (ICD-10 - G47.33) 13 Jun,hronic insomnia (ICD-10 - F51.04) [employer] Other 05-22-2023 NotePatient is here today to discuss medication Review of Systems Musculoskeletal: Positive for arthritis and back pain. All other systems reviewed and are negative.[facility] 01-03-2023 NoteCardiovascular Medicine [facility] SUBJECTIVE Chief Complaint Patient presents with [...] BID. She will be driving down to [place] this weekend for her high school reunion. [...] orbital floor (blow-out) ([facility]/HCC) Epiphora Fracture of orbit ([facility]) Fracture of radial neck Obesity Hypertensive disorder Pain in elbow MANOLO (obstructive sleep apnea) Diabetes ([facility]) Polyneuropathy Vitreous floaters of both eyes Venous hypertension of lower extremity Trigger thumb, left thumb Insomnia Osteopenia Peripheral venous insufficiency Non-seasonal allergic rhinitis Mixed hyperlipidemia penitentiary current use of insulin ([facility]) Lipoprotein deficiency disorder History of fall History of colonic polyps GERD (gastroesophageal reflux disease) Family history of malignant neoplasm of gastrointestinal tract Failed back syndrome Ex-smoker ESS (euthyroid sick syndrome) Disability of walking Diabetic retinopathy associated with controlled type 2 diabetes mellitus ([facility]) Diabetic polyneuropathy associated with type 2 diabetes mellitus ([facility]) Type 2 diabetes mellitus with hyperglycemia ([facility]) Decreased estrogen level Continuous positive [...] tablet, Take 1 (more content not included)... [facility]03-02-2023 NoteCONSULTATION CONSULTATION DATE: 10/14/2022 HISTORY: This is [...] unless otherwise indicated. Patient is in agreement.[facility] HospitalKyfjopip23-26-0665 NoteCardiology Clinic Note Subjective Konrad Mobley is [...] orbital floor (blow-out) ([facility]) Epiphora Fracture of orbit ([facility]) Fracture of radial neck Obesity Hypertensive disorder Pain in elbow MANOLO (obstructive sleep apnea) Diabetes ([facility]) Polyneuropathy Family History Problem Relation [...] BUN 13, creatinine 0.84, (more content not included)...[facility]02-14-2023 NotePatient here for 1 mo follow up hypertension and medication changes. She was started on hydrochlorothiazide and losartan was increased back up to 100mg daily. She had BMP on 09/07. Review of Systems Musculoskeletal: Positive for back pain. All other systems reviewed and are negative.[facility] 08-31-2022 NotebloUnTogus VA Medical Center01-17-2023 NotePatient here for 3 mo [...] Systems All other systems reviewed and are negative.[facility] 08-31-2022 NoteCardiology Clinic Note Subjective Konrad Mobley [...] floor (blow-out) (CMS/HCC) Epiphora Fracture of orbit ([facility]/HCC) Fracture of radial neck Obesity Hypertensive disorder Pain in elbow MANOLO (obstructive sleep apnea) Diabetes ([facility]) Polyneuropathy Family History Problem Relation [...] 119, BUN 13, creatinine (more content not included)...[facility] 07-14-2022 NoteCONSULTATION CONSULTATION DATE: 07/14/2022 HISTORY OF [...] in three months' time unless otherwise indicated.[facility] HospitalQfklqkef27-16-9812 Evaluation note* Encounter Date Diagnosis Assessment Notes Treatment Notes Treatment Clinical Notes Jun, Obstructive sleep apnea (ICD-10 - G47.33) Patient was encouraged to continue regular use of CPAP as before, discussed chronic insomnia associated with sleep apnea and treatment options today at length as well 14 Jun,hronic insomnia (ICD-10 - F51.04)Treatment options, including amitriptyline, indications, benefits and potential side effects were all discussed today [employer] Other 10-18-2022 NoteContinue to wear cpapUnTogus VA Medical Center10-18-2022 NoteContinue amlodipine 10 mg daily- she recently ran out of 10 mg and this morning took 5 mg tablet she had from previous script. Continue coreg 25 mg bid, lasix 40 mg daily, losartan 50 mg daily and hydralazine 50 mg po bid.[facility]10-18-2022 Note Subjective Konrad Mobley is a 77 [...] Lab Review: Assessment/Plan There were no encounter diagnoses.[facility]10-18-2022 NoteHPI: Konrad Mobley is a 77 y.o. [...] 3 months with repeat BMP for renal functionUnTogus VA Medical Center09-26-2022 NoteI spoke with patient and informed her of medication changes per Veronica Gillespie CNP. RX sent to [facility] and BMP faxed to [facility]. Patient verbalized understanding. [facility]09-14-2022 NoteF/U with PCP for further managementUnTogus VA Medical Center09-14-2022 NoteHypertension remains uncontrolled, will add [...] BUN 15, CR 0.85 normal K+ 4.8 normalSouthview Medical Center09-14-2022 NoteAdded in error and don't know how to get rid of itUnTogus VA Medical Center08-25-2022 NoteCONSULTATION CONSULTATION DATE: 04/08/2022 HISTORY [...] in the office post procedure in May.[facility] HospitalDhnyouly54-98-8656 NoteCONSULTATION CONSULTATION DATE: 02/10/2022 HISTORY OF PRESENT [...] plan of care and all questions answered. [facility] Signed and Approved by: BETZAIDA ZIMMER . 02/11/2022 13:38:00[facility]03-22-2022 NoteCONSULTATION PAIN MANAGEMENT CONSULTATION CHIEF COMPLAINT: [...] had three nerves released by Dr. Branch, clearance representative, in 2002. She states the pain has [...] would like to proceed. CC: Dr. Bowers [facility] Signed and Approved by: DR SERENITY GARCIA . 11/17/2021 11:24:00[facility] HospitalEvaluation noteNorth Condition One Other Evaluation noteNo assessment information available [facility] Work Phone: Evaluation note* Diagnosis Failed back syndrome Other unspecified back disorder [facility]* Diagnosis Failed back syndrome Other unspecified back disorder documented [facility] this encounter [facility]* Diagnosis Onset Date Resolution Status Admit Date Chronic insomnia acuteNov2023 11:30amOSA (obstructive sleep apnea)acuteNov2023 11:30am [facility] Work Phone: Evaluation note* Diagnosis Failed back syndrome Other unspecified back disorder Hypothyroidism, unspecified type (CMS/HCC) documented in this encounter [facility]* [...] (BMI) 35.0-35.9, adult documented in this encounter [facility]* Diagnosis Failed back syndrome Other unspecified back disorder documented in [facility]* Diagnosis Failed back syndrome Other unspecified back disorder [facility]* Diagnosis Lumbar paraspinal muscle spasm- Primary Other symptoms referable to back Type 2 diabetes mellitus with hyperglycemia, without long-term current use of insulin (CMS/HCC) documented [facility]* Diagnosis Nausea- Primary Nausea alone documented [facility]* Diagnosis Nausea- Primary Nausea alone Type 2 diabetes mellitus with hyperglycemia, without long-term current use of insulin (HCC) documented [facility]* Diagnosis Type 2 diabetes mellitus with hyperglycemia, with long-term current use of insulin (HCC)- Primary documented in [facility]* Diagnosis Diabetes mellitus type 2 with neurological manifestations (HCC) Type 2 diabetes mellitus with hyperglycemia, unspecified whether custodial insulin use (HCC) documented in this encounter [facility]* Diagnosis Hypothyroidism, unspecified type Failed back syndrome Other unspecified back disorder documented in this encounter [facility]Evaluation note* Diagnosis Routine general medical examination at health care facility- Primary Routine general medical examination at a health care facility ACP (advance care planning) Other specified counseling Diabetes mellitus type 2 with neurological manifestations (HCC) documented in this encounter [facility]Evaluation note* Diagnosis Acute myofascial strain of lumbar region, initial encounter- Primary documented in this encounter [facility] HealthcareHistory general Narrative - ReportedNoWills Eye Hospital iPosition Other History general Narrative - Reported* Type Description Date Medical History HTN Medical VmbqsmeXK0Gpinuqb HistoryOsteoporosisMedical HistoryNeuropathyMedical HistoryhyperlipedemiaMedical HistoryHot Flashes/SweatsMedical HistorycopdMedical HistoryOSA (obstructive sleep apnea)Surgical HistoryBack surgery x Surgical [id number] Rvwmawehlfxinzmqtkmazx9426Ceranbsy History fbqbeowhhne2486Zpzrgbac Historycataract surgerySurgical Historyeyes surgery Surgical Historyfacial cosmetic surgerySurgical HistoryHYSTERECTOMYSurgical HistorytonsillectomyHospitalization HistoryHeart Unywkv0400Nfldygfvhtzxjsx Historysee above [employer] Other Chief Complaint and Reason for [...] Recorded Date/T apple brother Diabetes mellitus Unknown HypertensionUnknownfatherDeceasedUnknownDiabetes mellitusUnknownMalignant neoplasmUnknownHeart diseaseUnknownHistory of strokeUnknownmotherMalignant neoplasm of colonUnknownDeceasedUnknownsisterDeceasedUnknown Additional Source Comments Care Teams (unrecognized sec tion and content) Team Status: Inactive Member Role Status Dates Abdullahi Acosta MD Attending Provider Active Kofi Bowers II [facility] Care ProviderActive Team Status: Active Member Role Status Dates Kofi Bowers II MD Primary Care Provider Active Team Status: Inactive Member Role Status Dates Kofi Bowers II MD Primary Care Provider Active Serena Gr ProviderActiveTeam MemberRelationshipSpecialtyStart DateEnd Date Kofi Bowers MD [address] [facility] [address] [place] [address] PCP - GeneralInternal Medicine12/22/22Team MemberRelationshipSpecialtyStart Date End Date Kofi Bowers MD [address] [facility] [address] [place] [address] PCP - GeneralInternal Medicine12/22/22 Team Status: Inactive Member Role Status Dates Kofi Bowers II MD Primary Care Provider Active Start: June 29, 2024 End: June 29, 2024Heidi Henrry , [employer]IE[employer] BANK EXAMINER ACNP-BCAttending ProviderActiveStart: June 29, 2024 End: June 29, 2024Team MemberRelationshipSpecialtyStart DateEnd Date Kofi Bowers MD [address] [facility] [address] [place] [address] PCP - GeneralInternal Medicine12/22/22Team MemberRelationshipSpecialtyStart Date End Date Kofi Bowers MD [address] [facility] [address] [place] [address] PCP - GeneralInternal Medicine12/22/22am MemberRelationshipSpecialtyStart Date End Date Kofi Bowers MD [address] [facility] [address] [place] [address] PCP - GeneralInternal Medicine12/22/22am MemberRelationshipSpecialtyStart Date End Date Kofi Bowers MD [address] [facility] [address] [place] [address] PCP - GeneralInternal Medicine12/22/22am MemberRelationshipSpecialtyStart Date End Date Kofi Bowers MD [address] [facility] [address] [place] [address] PCP - GeneralInternal Medicine12/22/22am MemberRelationshipSpecialtyStart Date End Date Kofi Bowers MD [address] [facility] [address] [place] [address] PCP - GeneralInternal Medicine12/22/22am MemberRelationshipSpecialtyStart Date End Date Kofi Bowers MD [address] [facility] [address] [place] [address] PCP - GeneralInternal Medicine12/22/22am MemberRelationshipSpecialtyStart Date End Date Kofi Bowers MD [address] [facility] [address] [place] [address] PCP - GeneralInternal Medicine12/22/22Team MemberRelationshipSpecialtyStart Date End Date Kofi Bowers MD [address] [facility] [address] [place] [address] PCP - GeneralInternal Medicine12/22/22Team MemberRelationshipSpecialtyStart Date End Date Kofi Bowers MD [address] [facility] [address] [place] [address] PCP - GeneralInternal Medicine12/22/22Team MemberRelationshipSpecialtyStart Date End Date Kofi Bowers MD [address] [facility] [address] [place] [address] PCP - GeneralInternal Medicine12/22/22Team MemberRelationshipSpecialtyStart Date End Date Kofi Bowers MD [address] [facility] [address] [place] [address] PCP - GeneralInternal Medicine12/22/22Team MemberRelationshipSpecialtyStart Date End Date Kofi Bowers MD [address] [facility] [address] [place] [address] PCP - GeneralInternal Medicine12/22/22Team MemberRelationshipSpecialtyStart Date End Date Kofi Bowers MD [address] [address] [place] [address] PCP - GeneralInternal Medicine12/22/22 Goals (unrecognized section and content) Goals may be documented in a n alternate sectionNo InformationGoals may be documented in an alternate sectionNo InformationGoals may be documented in an alternate section REASON FOR VISIT (unrecogniz ed section and content) ReasonOnset DateCommentsMed Uejibx2509/29/2023[facility] CLYDEReasonOnset DateCommentsMed Bnnigc624ReasonOnset DateCommentsMed Nqclhg1207/02/2024 ReasonOnset DateCommentsMed Bxptih124ReasonOnset DateCommentsMed Refill 4ReasonOnset DateCommentsMed Ufxbvs9408/02/2024easonCommentsInsomniaPt states she had a bone stimulator placement surgery on 08/13/24 at [facility] and she is actually sleeping better at night.ReasonOnset DateCommentsMed Gugkyo5410/03/2024 ReasonOnset DateCommentsMed Bwajng3812/03/2024ReasonCommentsNauseaReasonComments Med RefillReasonOnset DateCommentsMed Kxuoud0004/29/2025ReasonCommentsMedicare Annual Wellness Visit SubsequentDiscuss plan with medications: last visit pt was advised to stop metformin and trulicity and was started on samples of farxiga 5mg -- need to discuss plan going forward with meds-- sugars average 130-140 ReasonCommentsBack Pain INFORMATION SOURCE (unrecogn ized section and content) DATE CREATED AUTHOR 10/19/2022 [facility] DATE CREATED AUTHOR AUTHOR'S ORGANIZ ATION 01/27/2023 [facility] DATE CREATED AUTHOR AUTHOR'S ORGANIZ ATION 09/23/2023 [facility] DATE CREATED AUTHOR AUTHOR'S ORGANIZ ATION 03/20/2024 [facility] DATE CREATED AUTHOR AUTHOR'S ORGANIZ ATION 03/17/2025 [facility] DATE CREATED AUTHOR AUTHOR'S ORGANIZ ATION 04/22/2025 [facility] DATE CREATED AUTHOR AUTHOR'S ORGANIZ ATION 06/07/2025 [facility] EPIC FOR RECORDS PERTAINING TO PATIENTS [...] BE BASED ON THE PRIMARY CLINICAL RECORDS. [facility] [employer] [facility]. provides no warranty or guarantee of the accuracy or completeness of information in this document.
--- NOTE | 2025-06-13 11:24 | PM.CN ---
Consult Note: HPI Data of Consult Patient: known to practice within the last 3 years Consult date: 06/13/25 Requesting Physician: Zoila Kenyon NP Primary Care Provider: BELEN ZALDIVAR Consult Narrative Reason for consult: f/u Narrative: Cece Mobley a pleasant 80 year old female with chronic low back pain post thoracic/lumbar fusion and DPN presents for evaluation. no falls or injury since last visit. Pain 6-7/10 throbbing. Pain increasing to 10/10 with standing, walking, twisting, pushing, pulling, housework, lifting, bending, activity. Mild improvement with sitting lying and heat. utilizing baclofen, zonegran, tramadol and tylenol with benefit. since last visit patient did not have her spinal cord stimulator interoggated, rep present today to evaluate patient. pt reports 75% improvement in painful DPN and overall low back pain with scs implant. noting persist right posterior hip and low back pain, has failed trigger point injection and medrol dose pack. cc:: CC: Zoila Kenyon NP [facility] Medical History Facial trauma (~2017) ?S09.93XA - Unspecified injury of face, initial encounter (ICD-10) Chronic insomnia ?F51.04 - Psychophysiologic insomnia (ICD-10) Low iron ?E61.1 - Iron deficiency (ICD-10) Pneumonia ?J18.9 - Pneumonia, unspecified organism (ICD-10) Restless leg ?G25.81 - Restless legs syndrome (ICD-10) GERD (gastroesophageal reflux disease) ?K21.9 - Gastro-esophageal reflux disease without esophagitis (ICD-10) Activity intolerance ?R68.89 - Other general symptoms and signs (ICD-10) Extremity edema ?R60.0 - Localized edema (ICD-10) Diabetes ?E11.9 - Type 2 diabetes mellitus without complications (ICD-10) Hypothyroidism ?E03.9 - Hypothyroidism, unspecified (ICD-10) Low back pain ?M54.50 - Low back pain, unspecified (ICD-10) Osteoarthritis ?M19.90 - Unspecified osteoarthritis, unspecified site (ICD-10) Diabetes 1.5, managed as type 2 ?E13.9 - Other specified diabetes mellitus without complications (ICD-10) Sleep apnea ?G47.30 - Sleep apnea, unspecified (ICD-10) High cholesterol ?E78.00 - Pure hypercholesterolemia, unspecified (ICD-10) Hypertension ?I10 - Essential (primary) hypertension (ICD-10) Surgical History History of facial surgery (~2017) ?Z98.890 - Other specified postprocedural states (ICD-10) History of colonoscopy ?Z98.890 - Other specified postprocedural states (ICD-10) History of radiofrequency ablation (RFA) of nerve of lumbar spine ?Z98.890 - Other specified postprocedural states (ICD-10) S/P epidural steroid injection ?Z92.241 - Personal history of systemic steroid therapy (ICD-10) Previous back surgery ?Z98.890 - Other specified postprocedural states (ICD-10) History of cholecystectomy ?Z90.49 - Acquired absence of other specified parts of digestive tract (ICD-10) Hx of tonsillectomy ?Z90.89 - Acquired absence of other organs (ICD-10) History of appendectomy ?Z90.49 - Acquired absence of other specified parts of digestive tract (ICD-10) Family History Other Cancer Family history of coronary artery disease Family history of diabetes mellitus Family history of heart disease Family history of hypertension Social History Within the past year, how often did you have a drink containing alcohol: never Score interpretation: A score less than 3 is consistent with normal alcohol consumption. Smoking status: Never smoker Non-prescribed substance use: denies use Highest level of school completed/degree received: Associate degree: occupational, technical, vocational program Meds Home Medications and Allergies Home Medications ?Medication ?Instructions ?Recorded ?Confirmed ?Type acarbose 100 mg tablet 100 mg PO BID 10/19/23 02/25/25 History amlodipine 10 mg tablet 10 mg PO DAILY 10/19/23 02/25/25 History aspirin 81 mg capsule 81 mg PO DAILY 10/19/23 02/25/25 History carvedilol 25 mg tablet 25 mg PO BID 10/19/23 02/25/25 History furosemide 40 mg tablet 40 mg PO DAILY 10/19/23 02/25/25 History insulin detemir U-100 100 unit/mL 60 unit subcut DAILY 10/19/23 02/25/25 History (3 mL) subcutaneous pen (Levemir FlexPen) liothyronine 25 mcg tablet 12.5 mcg PO BID 10/19/23 02/25/25 History loratadine 10 mg tablet 10 mg PO DAILY PRN allergic 10/19/23 02/25/25 History symptoms losartan 100 1 tab PO DAILY 10/19/23 02/25/25 History mg-hydrochlorothiazide 25 mg tablet lovastatin 20 mg tablet 20 mg PO DAILY 10/19/23 02/25/25 History omeprazole 20 mg capsule,delayed 20 mg PO DAILY 10/19/23 02/25/25 History release potassium chloride 20 mEq 20 meq PO DAILY 10/19/23 02/25/25 History tablet,extended release quetiapine 50 mg tablet 50 mg PO DAILY 10/19/23 02/25/25 History tramadol 50 mg tablet 100 mg PO Q12H PRN pain 10/19/23 02/25/25 History acetaminophen 500 mg capsule 1,000 mg PO BID 07/18/24 02/25/25 History ascorbic acid (vitamin C) 500 mg 500 mg PO BID 07/18/24 02/25/25 History capsule calcium 600 mg (as 1 tab PO DAILY 07/18/24 02/25/25 History carbonate)-vitamin D3 5 mcg (200 unit) tablet (Calcium 600 + D(3)) cholecalciferol (vitamin D3) 125 5,000 unit PO DAILY 07/18/24 02/25/25 History mcg (5,000 unit) capsule vitamin B complex (B-Complex 1 tab PO DAILY 07/18/24 02/25/25 History tablet) vitamin E 268 mg (400 unit) capsule 268 mg PO BID 07/18/24 02/25/25 History baclofen 10 mg tablet 10 mg PO BID PRN muscle spasm 10/29/24 02/25/25 History zonisamide 50 mg capsule mg PO 02/19/25 History baclofen 10 mg tablet 10 mg PO TID PRN muscle spasm #90 03/14/25 Rx tabs Allergies Allergy/AdvReac Type Severity Reaction Status Date / Time iodine Allergy Severe Anaphylaxis Verified 02/25/25 10:28 levofloxacin (From Levaquin) Allergy Rash Verified 02/25/25 10:28 Exam Constitutional Documenting provider has reviewed patient's vital signs: yes Common normals: no apparent distress, oriented x3, healthy appearing, alert and well nourished General appearance: cooperative HENMT Common normals: normocephalic, hearing grossly normal bilaterally and moist oral mucous membranes Head and scalp: normocephalic Eye Common normals: PERRL Pupil: PERRL Neck & C-Spine Common normals: full ROM General: normal visual inspection Chest Common normals: inspection of chest normal Respiratory Common normals: normal respiratory effort, no retractions and no use of accessory muscles Back & Pelvis Thoracic spine/upper back: no paraspinal muscle spasm Lumbar spine/lower back: ROM limited, pain with ROM, lumbar spinal tenderness and straight leg raise negative bilaterally; no paraspinal muscle tenderness and no paraspinal muscle spasm Sacroiliac joints: SI joint(s) abnormal Other: sensation intact BLE strength 5/5 in BLE right SIJ positive cynthia(patricks), gaenslens, thigh thrust, compression test Neuro Common normals: oriented x3 Sensorium/orientation: alert Psych Common normals: mental status grossly normal, thought process normal, cooperative, affect normal, speech normal and activity/motor behavior normal Speech: normal speech Thought process: normal thought process Results Additional Findings Additional findings: If on a controlled substance or opioids, I have checked an [place] report on this patient and there are no aberrancies noted in the prescribing history.??If on a controlled substance or opioid a drug screen was completed and reviewed within the last year, and if there has not been a drug screen completed we ordered one today to monitor higher risk, state monitored pain medication use. As part of providing excellent, safe, comprehensive care, the following was completed at our patient's visit: 1. A medication reconciliation and review to ensure accurate knowledge of current/active medications, including asking our patients to inform us about any npuf-ffk-bmetaxq medications or herbal remedies/nutritional supplements/alternative remedies. 2. A review to specifically ensure our patients have had annual screening for screening for depression, screening for tobacco use, and screening for unhealthy alcohol use. For concerning screenings had a discussion with the patient, provided patient education, and recommended follow-up with primary care provider when appropriate. If patient noted with a risk of falling, they received education on strength, gait, and balance training to prevent future risk of falling. Portions of this note may have been carried over from the previous visit and updated as appropriate. Please note this office utilizes paper charting in addition to the electronic medical record. A list of current medications, vitals, and PMH is available there as the clinical staff outside of myself do not have access to [facility] charting during the clinic day operations. As part of providing quality comprehensive care the current medications, vitals, and PMH were reviewed in the paper chart. Assessment and Plan Assessment and Plan (1) Sacroiliitis: (2) Lumbar radiculopathy: (3) Encounter for fitting and adjustment of spinal cord stimulator: (4) Failed back syndrome: (5) History of thoracic spinal fusion: (6) History of lumbar fusion: (7) Painful diabetic neuropathy: Plan The patient has had over 3 months of moderate to severe low back and SIJ pain with functional impairment and inadequate response to conservative care including NSAIDS (unless there are contraindication such as concurrent blood thinners), multiple oral or topical pain medications, and home exercise program/physical therapy.? Patient has completed >6 weeks of guided home exercise program and/or formal physical therapy program without relief of their symptoms.? The Oswestry Disability Index was completed, and the patient scored a 44%.? right sij injection under fluoroscopy continue zonegran 50mg hs and baclofen 10mg tid prn pain/spasms continue HEP as tolerated f/u after injection
== END 2025-06-13 10:57 | disposition home or self-care (01) ==
LOC: PM 10:57
PROVIDERS: PCP Internal Medicine; Visit Provider Nurse Practitioner
DX: M46.1 Sacroiliitis, not elsewhere classified (principal); M54.16 Radiculopathy, lumbar region; Z46.2 Encounter for fitting and adjustment of other devices related to nervous system and special senses; M96.1 Postlaminectomy syndrome, not elsewhere classified; M43.24 Fusion of spine, thoracic region; M43.26 Fusion of spine, lumbar region; E11.40 Type 2 diabetes mellitus with diabetic neuropathy, unspecified
CPT/HCPCS: G0463

== ENCOUNTER 2025-06-24 08:44 | Day surgery (SDC) | payer MEDICARE, SELFPAY ==
--- OUTSIDE RECORDS SUMMARY | 2025-06-17 11:30 | XMS_ITS | Encounter Summary ---
Author Organization [facility] Address [address] [place] [address] Care Team Providers Care Petroleum Engineering Teacher Name Role Phone Kofi Bowers MD Primary Care Provider [phone] Encounter Details DateTypeDepartmentCare Team (Latest Contact Info)Pxyvaxqyknc26/03/2025 11:30 AM ESTOffice Visit [facility] [address] [facility] [address] [place] [address] Kofi Bowers MD [address] [facility] [address] [place], [place] [id number] Acute myofascial strain of lumbar region, subsequent encounter; Need for vaccination Social History Tobacco UseTypesPacks/DayYears UsedDateSmoking Tobacco: FormerCigarettesQuit: 08/15/1999Smokeless Tobacco: Never Tobacco Cessation:Counseling Given: Yes Alcohol UseStandard Drinks/WeekCommentsNot Currently0 (1 standard drink = 0.6 oz pure alcohol)Caffeine: 1-2 cups per day; none soda/popPHQ-2AnswerDate Recorded Patient Health Questionnaire-2 Utcml643CommentsUnknownSex and Gender InformationValueDate RecordedSex Assigned at BirthNot on fileLegal Sex Jkfran2710/27/2022 6:38 PM EDTGender IdentityNot on fileSexual OrientationNot on filedocumented as of this encounter Last Filed Vital Signs Vital SignReadingTime TakenCommentsBlood Mwjpnafe198/6006/17/2025 11:32 AM EST Sgqlb402906/17/2025 11:32 AM ESTTemperature--Respiratory Ahve850708/17/2024 11:32 AM ESTOxygen Fnmgmkfgct51%06/17/2025 11:32 AM ESTInhaled Oxygen Concentration-- Unjycp05 kg (194 lb)06/17/2025 11:32 AM WHXRimqox706.4 cm (5')06/17/2025 11:32 AM ESTBody Mass Index37.8906/17/2025 11:32 AM ESTdocumented in this encounter Functional Status * Over the past 2 weeks, how often have you been bothered by any of the following problems?QuestionAnswerDate of AssessmentAuthorLittle interest or pleasure in doing thingsSeveral days06/17/2025 11:20 AM Fredrick CARNESeling down, depressed, or hopelessNot at all06/17/2025 11:20 AM MAREK CARNES Patient Health Questionnaire-2 Yxuwg342 11:20 AM MAREK CARNES documented as of this encounter Progress Notes * Kofi Bowers MD - 06/17/2025 11:30 AM EST Images from the original note were not included. Subjective Patient ID: Cece Mobley is a 80 y.o. female who presents for No chief complaint on file.. Cece presents today for a follow up for her lower back pain. She says this the pain is better, butit's not all gone. She will still get muscle spasms and she feels wobbly. She did say when she getsup her back will pop and crack. She did says her throat is bothering her. It feels very dry and has a burning feeling. She has noticed since her heat in her house has been on. Over the past 2 weeks, how often have you been bothered by any of the following problems? Little interest or pleasure in doing things: Several days Feeling down, depressed, or hopeless: Not at all Patient Health Questionnaire-2 Score: 1 Current Outpatient Medications on File Prior to [...] the evening. cholecalciferol (Vitamin D-3) 1.25 MG (10770 UT) tablet Vitamin D3 5000IU empagliflozin (Jardiance) [...] stomach Orally two times daily. D.A.W. as [employer] or [employer] Brand ONLY for 90 days 200 tablet [...] Take 50 mg by mouth at bedtime [DISCONTINUED] methylPREDNISolone (Medrol Dospak) 4 MG tablets Follow schedule on package instructions 21 tablet 0 [DISCONTINUED] tiZANidine (Zanaflex) 4 MG tablet Take 1 tablet (4 mg) by mouth every 8 (eight) hours if needed for muscle spasms 30 tablet 0 No current facility-administered medications on file prior [...] mass index (BMI) of 40.0-44.9 in adult ([facility]) Bronchitis Bruise of breast Cataract Colon polyps COVID-19 03/2021 Deviated nasal septum Diabetes mellitus ([facility]) Encounter for diabetic foot exam ([facility]) Family history of colon cancer Brother Fracture Rt orbital fracture, LUCIUS elbow fracture - shipped to [facility] 07/31/15. GERD (gastroesophageal reflux disease) History of being hospitalized 07/2015 [facility] - Post fall -rt orbital fx, LUCIUS elbow fracture, facial contusion History of colon polyps Hyperlipidemia Hypertension Labyrinthitis Left cervical radiculopathy Low back pain Measles Morbid obesity ([facility]) Osteopenia Pneumonia Posterior vitreous detachment of both [...] Lt thumb; Dr. Díaz Visit Vitals BP 130/60 Pulse 92 Resp 16 Ht 5' Wt 194 lb SpO2 98% BMI 37.89 kg/m?? Smoking Status Former BSA 1.93 m?? Review of Systems Objective Physical Exam Musculoskeletal: Lumbar back: Spasms and tenderness present. No deformity. Normal range of motion. Negative right straight leg raise test and negative left straight leg raise test. No scoliosis. Neurological: Motor: No weakness. Gait: Gait normal. Deep Tendon Reflexes: Reflexes normal. Assessment/Plan Diagnoses and all orders for this visit: Acute myofascial strain of lumbar region, subsequent encounter - tiZANidine (Zanaflex) 4 MG tablet; Take 1 tablet (4 mg) by mouth every 8 (eight) hours if needed for muscle spasms - Has upcoming appt with Pain Mgmt Need for vaccination - Flu vaccine, high dose seasonal, PF (SAF368) (Fluzone High Dose) Other orders - Follow Up In Family Medicine; Future Follow up with Dr. Kofi Bowers in 6 months (on 12/14/2025). documented in this encounter Plan of Treatment DateTypeDepartmentCare Team (Latest Contact Info)Cjgpdxrppgh75/30/2026 11:30 AM EDTOffice Visit [facility] [address] [facility] [address] [place] [address] Kofi Bowers MD [address] [facility] [address] [place] [address] documented as of this encounter Visit Diagnoses Diagnosis Acute myofascial strain of lumbar region, subsequent encounter Need for vaccination Need for prophylactic vaccination and inoculation against unspecified single disease documented in this encounter Additional Health Concerns AssessmentNoted TimePHQ-9 Depression Total Score: 308 10:00 AM EDT documented as of this encounter Care Teams Team MemberRelationshipSpecialtyStart DateEnd Date Kofi Bowers MD [address] [facility] [address] [place] [id number] PCP - GeneralInternal Medicine12/22/22documented as of this encounter
--- OUTSIDE RECORDS SUMMARY | 2025-06-24 08:49 | XMS_ITS | Clinical Summary ---
Author Organization [facility] Address [id number] [address] [place] [address] Care Team Providers Care Recovery Operator Name Role Phone Kofi Bowers MD Primary Care Provider [phone] Allergies Active AllergyReactionsCriticalityNoted TgriYmiupsdeXwuufw94/11/2019 Throat swells, couldn't breathe Nlkgejmycfae43/11/2019 itchy Medications MedicationSigDispense QuantityRefillsLast FilledStart DateEnd DateStatus [...] standard drink = 0.6 oz pure alcohol)ChildcareAnswerDate XxgcjocsBtzrploytFsjdesj15/12/2019Employment AnswerDate UxzwaaevLsfyhgstrlYivbeuw54/12/2019Hunger ScreeningAnswerDate RecordedWithin the past 12 months we worried whether our food would run out before we got money to buy more.Never True03/18/2024Within the past 12 months the food we bought just didn't last and we didn't have money to get more.Never True4Purpose - LifeAnswerDate RecordedPurpose and direction in life Rwcfhgg62/11/2021CommentsNoSex and Gender InformationValueDate Recorded Sex Assigned at BirthNot on fileLegal CszIdnqqp04/06/2015 11:38 AM EDTGender IdentityNot on fileSexual OrientationNot on file Last Filed Vital Signs Vital SignReadingTime TakenCommentsBlood Yzhkrczq862/7308 11:04 AM EDT Scche7885 11:04 AM QUBAbdqbjlvaxv95.6 ??C (97.9 ??F)03/18/2024 11:04 AM EDTRespiratory Tvbv9644 11:04 AM EDTOxygen Kvyqufpltq122%03/18/2024 11:04 AM EDTInhaled Oxygen Concentration--Rzypiy61.6 kg (182 lb)03/18/2024 11:04 AM CNDKcpbyl662.4 cm (5')03/18/2024 11:04 AM EDTBody Mass Index35.5408 11:04 AM EDT Plan of Treatment Health MaintenanceDue DateLast DoneCommentsDepression Ossynrurj10/06/1957Tobacco Ysyrcqszh29/06/1957Fall Risk Dbafyvcru45/06/2010DTaP,Tdap and Td Vaccines (1 - Tdap)RSV ( or age 60+ yrs) (1 - 1-dose 75+ series) 2020Zoster (Shingles) Vaccine (2 of 2)/3COVID-19 Vaccine (3 - 2024- season)502/, 09/10/2020Influenza Jekqocb4204/15/2025 06/06/2023, 05/20/2021, 09/15/2020, Additional history exists Medical Devices Not on file Insurance Care Teams Team MemberRelationshipSpecialtyStart DateEnd Date Kofi Bowers MD [address] [facility] [address] [place] [address] PCP - GeneralInternal Medicine10/27/22
--- OUTSIDE RECORDS SUMMARY | 2025-06-24 08:49 | XMS_ITS | Encounter Summary ---
Author Organization [facility] Address [address] [place] [address] Care Team Providers Care Rn Psych Name Role Phone Kofi Bowers MD Primary Care Provider [phone] Encounter Details DateTypeDepartmentCare Team (Latest Contact Info)Uihsdbtsdsj33/27/2024linisync Result Encounter [facility] External Department Unsolicited Provider, Generic External Data Social History Tobacco UseTypesPacks/DayYears UsedDateSmoking Tobacco: FormerCigarettesQuit: 08/15/1999Smokeless Tobacco: NeverAlcohol UseStandard Drinks/WeekCommentsNot Currently0 (1 standard drink = 0.6 oz pure alcohol)Caffeine: 1-2 cups per day; none soda/popPHQ-2AnswerDate RecordedPatient Health Questionnaire-2 Score0 06/06/2025CommentsUnknownSex and Gender InformationValueDate RecordedSex Assigned at BirthNot on fileLegal SbjIpiuvn14/15/2023 6:38 PM EDTGender Identity Not on fileSexual OrientationNot on filedocumented as of this encounter Functional Status * Over the past 2 weeks, how often have you been bothered by any of the following problems?QuestionAnswerDate of AssessmentAuthorLittle interest or pleasure in doing thingsNot at all06/06/2025 8:54 AM Lilly Reynoso LPN Feeling down, depressed, or hopelessNot at all06/06/2025 8:54 AM Lilly Reynoso LPNPatient Health Questionnaire-2 Gstbw819 8:54 AM Lilly Reynoso LPN documented as of this encounter Plan of Treatment DateTypeDepartmentCare Team (Latest Contact Info)Nutpardbmio13/30/2026 11:30 AM EDTOffice Visit [facility] [address] [place] [address] [place] [id number] Kofi Bowers MD [address] [place] [address] [place] [address] documented as of this encounter Procedures Procedure NamePriorityDate/TimeAssociated DiagnosisCommentsXR THORACIC SPINE 2 VIEWS05/11/2024 10:18 AM EDT documented in this encounter Results * XR thoracic spine 2 views (05/11/2024 10:18 AM EDT)Anatomical RegionLaterality ModalitySpine, T-spineRadiographic ImagingSpecimen (Source)Anatomical Location / LateralityCollection Method / VolumeCollection TimeReceived Time05/11/2024 10:18 AM EDT Narrative 05/11/2024 10:21 AM EDT [facility] ?[address] ? [place] [address] ?XRay Report ? Signed ? Patient: KONRAD GUZMAN ? MR#: [id number] ?? : 1945 ?Acct:[id number] ?? Age/Sex: 79 / F ?ADM Date: 05/10/24 ?? Loc: RAD ? Attending Dr: Rylee Rouse ME[employer]ODUCTS DEMONSTRATOR ? Ordering Physician: Rylee Rouse NP ?? Date of Service: 05/10/24 ?? Procedure(s): XR thoracic spine 2V ?? Accession Number(s): [id number] ? cc: KOFI BOWERS ; Rylee Rouse NP ? [facility] ? [address] ? [place] [address] ? Patient Name: ?? KONRAD GUZMAN ? MRN: [id number] ? date: 1945 ?Sex: F ?? Assigned Patient Location: RAD ?? Current Patient Location: RAD ?? Accession/Order Number: [id number] ?? Exam Date: 05/10/2024 ??13:28 ?Report Date: 05/11/2024 ??10:18 ? At the request of: ?? RYLEE ??NASIM ? Procedure: ??XR thoracic spine 2V ? EXAMINATION: XR lumbar spine min 4V, XR thoracic spine 2V ? HISTORY: Failed Back Syndrome, Lumbar Radiculopathy [; chronic back pain; ?? occasional numbness and tingling in right leg ? COMPARISON: No relevant comparison available. ? FINDINGS: ?? BONES: Slight anterior wedging of approximately T6 and T7 vertebral bodies. ?? Mechanical fusion L3-S1 via bilateral pedicle screws and rods; no appreciable ?? hardware fracture loosening. No bone fracture or significant listhesis. ?? Posterior decompression L3-4-5. Remnants of prior neurostimulator electrodes ?? adjacent the L3-4 facet joints bilaterally. ?? DISC SPACES: Multilevel mild degenerative disc disease of thoracic spine. ?? Moderate narrowing all lumbar levels. Intervertebral disc spacer at L3-4 and ?? L5-S1. ?? PARASPINOUS: Moderate atherosclerotic disease of aorta; no appreciable ?? aneurysm. ?? OTHER: Negative. ? XR/XR thoracic spine 2V ?? IMPRESSION: ? 1. Grossly stable degenerative changes and surgical changes of the thoracic ?? lumbar spine. ? Electronically authenticated by: JOHNNY ??YAZ ?? Date: 05/11/2024 ??10:18 ? Dictated By: ?Johnny Victoria M.D. ? Signed By: ?05/11/24 1021 ? DD/ 1018 ? TD/TT: ? Roller Checker: Procedure Note Radiology, Radiologist, MD - 05/11/[address] [address] XRay Report Signed Patient: KONRAD GUZMAN GMR#: [id number] : 5Acct:[id number] Age/Sex: 79 / FADM Date: 05/10/24 Loc: RAD Attending Dr: Rylee Rouse NP Ordering Physician: Rylee Rouse NP Date of Service: 05/10/24 Procedure(s): XR thoracic spine 2V Accession Number(s): [id number] cc: KOFI BOWERS ; Rylee Rouse NP The [address] [address] Patient Name: KONRAD GUZMAN MRN: [id number] date: 1945 Sex: F Assigned Patient Location: RAD Current Patient Location: RAD Accession/Order Number: [id number] Exam Date: 05/10/2024 13:28 Report Date: 05/11/2024 10:18 At the request of: RYLEE ROUSE Procedure: XR thoracic spine 2V EXAMINATION: [...] M.D. Signed By:05/11/24 1021 DD/ 1018 TD/TT: Roller Checker: Authorizing ProviderResult TypeResult StatusGeneric External Data ProviderIMG XR PROCEDURESFinal Result documented in this encounter Visit Diagnoses Not on filedocumented in this encounter Additional Health Concerns AssessmentNoted TimePHQ-9 Depression Total Score: 10:00 AM EDT documented as of this encounter Care Teams Team MemberRelationshipSpecialtyStart DateEnd Date Kofi Bowers MD [address] [address] PCP - GeneralInternal Medicine12/22/22documented as of this encounter
--- OUTSIDE RECORDS SUMMARY | 2025-06-24 08:49 | XMS_ITS | Clinical Summary ---
Author Organization [facility] Address [address] [place] [address] Care Team Providers Care Glove Turner And Former Name Role Phone Kofi Bowers MD Primary Care Provider [phone] Allergies Active AllergyReactionsCriticalityNoted DateCommentsIodineAnaphylaxisHigh 04/08/20220195Yerpdpnnnjwu18/25/2022regabalinDizziness,Qcquqcl0302/24/2021hellfish Containing ExezaqiiWspfriop43/12/2014 Medications MedicationSigDispense QuantityRefillsLast FilledStart DateEnd DateStatus acarbose [...] Problems ProblemNoted DateDiagnosed DateVenous hypertension of lower insbhioxv32/09/2023 Trigger thumb, left thumb12/14/20220060Ujyxitwgwf12/02/2023Failed back syndrome 12/14/2022ecreased estrogen level12/14/2022denomatous polyp of ascending colon 12/14/2022OSA (obstructive sleep apnea)04/28/2022 Assessment & Plan (06/01/2022 2:23 PM EDT): Continue to wear cpap Assessment & Plan (04/28/2022 2:06 PM EDT): F/U with PCP for further management Closed fracture of orbital floor (blow-out)04/08/20225124Tcavxfuj22/25/2022Fracture of orbit04/08/2022Fracture of radial neck04/08/2022ain in elbow04/08/2022 Hypertensive jzxxtyaa74/30/2021 Assessment & Plan (06/01/2022 2:21 PM EDT): [...] 0.85 normal K+ 4.8 normal Acquired trigger nossta9701/15/2021Non-seasonal allergic xrohtgfe79/25/2021 Vitreous floaters of both eyes04/29/2020Diabetic retinopathy associated with controlled type 2 diabetes irnsydpc22/15/2020Continuous positive airway pressure zgkhlropt19/18/2020Failed back qdfgamah90/04/2018Benign neoplasm of colon 06/27/2018History of colonic dkdxtq3206/01/2018Family history of malignant neoplasm of gastrointestinal tract06/01/2018Lipoprotein deficiency disorder 05/01/2018Long term current use of ovkzivi1601/28/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 eljuqzc4411/25/2015Ex-sjnbol8710/22/2015History of fall10/02/2015Disability of ydykchi5810/02/20157614Mxypifdc95/27/2015Mixed xggfhlzhlboetr23/27/2015GERD (gastroesophageal reflux disease)06/10/2015ESS (euthyroid sick syndrome) 06/10/2015Type 2 diabetes mellitus with izslvdohnrhhm51/27/2015Chronic pain /27/2015Chronic wsnidfb9306/10/2015Benign essential hypertension 06/10/20151797Ltcfsooymj99/27/2015Peripheral venous lkcnmxfxlutqg59/01/2015Diabetic polyneuropathy associated with type 2 diabetes ybsrbppx60/01/2015Obesity 01/24/20143231Bctresfn96/12/9447Cvybhzavmxzhfq15/12/2014 Immunizations ImmunizationAdministration DatesNext DueInfluenza, High Dose Seasonal, Preservative Free09/15/2020,05/15/2020Influenza, injectable, MDCK, preservative free, sjluzjgppknk70/06/2021Influenza, injectable, quadrivalent, preservative free06/15/2019,05/22/2018Influenza, seasonal, dabokwwype59/14/2019Unspecified Sars-Cov-2 Vfagzxrkrds87/17/2021,09/10/2020 Family History Medical HistoryRelationNameCommentsCoronary artery diseaseBrotherCoronary artery [...] ValueDate RecordedSex Assigned at BirthNot on fileLegal JocRrpdwd83/29/2022 11:38 PM EDTGender IdentityNot on fileSexual OrientationNot on file Last Filed Vital Signs Vital SignReadingTime TakenCommentsBlood Agxpaxtt369/78001/03/2023 11:10 AM EDT Njmuu2867/22/2023 11:10 AM EDTTemperature--Respiratory Rate--Oxygen Saturation 98%01/03/2023 11:10 AM EDTInhaled Oxygen Concentration--Bkvyti74.9 kg (189 lb 6.4 oz)01/03/2023 11:10 AM NMWOkkfaq774.4 cm (5')01/03/2023 11:10 AM EDTBody Mass Index36.9901/03/2023 11:10 AM EDT Plan of Treatment Health MaintenanceDue DateLast DoneCommentsDiabetes: Hemoglobin A1C1945 Medicare Annual Wellness (AWV)1945Diabetes: Retinopathy Screening 1955Depression Eilvhckhk30/06/1957Fall Risk Afzhmgybg86/06/2010 Pneumococcal Vaccine: 50+ Years (2 of 2 - PCV)Diabetes: Urine Protein Rmdhaewmp35, 01/19/2018, 10/28/2016, Additional history existsZoster Vaccines (2 [...] Mobley TypeRelation to PatientDate of BirthPhone Billing AddressPersonal/CgcmngCnse1945 [address] [place] [address] Care Teams Team MemberRelationshipSpecialtyStart DateEnd Date Kofi Bowers MD [address] [place] [address] [facility]04/07/22
--- OUTSIDE RECORDS SUMMARY | 2025-06-24 08:49 | XMS_ITS | Encounter Summary ---
Author Organization [facility] Address [address] [place] [address] Care Team Providers Care Automotive Glass Installer Name Role Phone Kofi Bowers MD Primary Care Provider [phone] Encounter Details DateTypeDepartmentCare Team (Latest Contact Info)Nsabuzgvknp40/04/2024linisync Result Encounter [facility] External Department Unsolicited Provider, Generic External Data Social History Tobacco UseTypesPacks/DayYears UsedDateSmoking Tobacco: FormerCigarettesQuit: 08/15/1999Smokeless Tobacco: NeverAlcohol UseStandard Drinks/WeekCommentsNot Currently0 (1 standard drink = 0.6 oz pure alcohol)Caffeine: 1-2 cups per day; none soda/popPHQ-2AnswerDate RecordedPatient Health Questionnaire-2 Score0 06/06/2025CommentsUnknownSex and Gender InformationValueDate RecordedSex Assigned at BirthNot on fileLegal JfcZdsrey45/15/2023 6:38 PM EDTGender Identity Not on fileSexual OrientationNot on filedocumented as of this encounter Functional Status * Over the past 2 weeks, how often have you been bothered by any of the following problems?QuestionAnswerDate of AssessmentAuthorLittle interest or pleasure in doing thingsNot at all06/06/2025 8:54 AM Lilly Reynoso LPN Feeling down, depressed, or hopelessNot at all06/06/2025 8:54 AM Lilly Reynoso LPNPatient Health Questionnaire-2 Epvvw291 8:54 AM Lilly Reynoso LPN documented as of this encounter Plan of Treatment DateTypeDepartmentCare Team (Latest Contact Info)Wqywjylvrwq57/30/2026 11:30 AM EDTOffice Visit [facility] [place] [facility] [address] [place] [phone] Kofi Bowers MD [address] [place] [address] documented as of this encounter Procedures Procedure NamePriorityDate/TimeAssociated DiagnosisCommentsECG 12-LEAD07/18/2024 10:38 AM EST documented in this encounter Results * ECG 12-LEAD (07/18/2024 10:38 AM EST)Anatomical RegionLateralityModalityOther Specimen (Source)Anatomical Location / LateralityCollection Method / Volume Collection TimeReceived Time07/18/2024 10:38 AM EST Narrative 07/18/2024 10:56 PM EST [facility] ?[address] ? [place] [address] ? Electrocardiograph Report ? Signed ? Patient: KONRAD GUZMAN ? MR#: [id number] ?? : 1945 ?Acct:[id number] ?? Age/Sex: 79 / F ?ADM Date: 07/18/24 ?? Loc: PST ? Attending Dr: Esperanza Maya M.D. ? Ordering Physician: Esperanza Maya M.D. ?? Date of Service: 07/18/24 ?? Procedure(s): ECG 12 lead ?? Accession Number(s): [id number] ? cc: ?[facility] ? Test Date: ?2024-07-18 ?? Pat Name: ? KONRAD GUZMAN ?Department: ? Room: ? - ?? Gender: ? Female ? Senior It Architect: ? : ?1945 ? Requested By: KOFI BOWERS ?? Order Number: [id number] ?Reading MD: ?? MEGA ??BALL ? Measurements ?? Intervals ?Fay ? Rate: ? 84 ? P: ?13 ?? IA: ? 158 ?QRS: ?70 ?? QRSD: ? 98 ? T: ?66 ?? QT: ? 379 ? QTc: ?450 ? Interpretive Statements ?? SINUS RHYTHM WITH SINUS ARRHYTHMIA ?? Compared to ECG 06/26/2021 12:41:20 ?? Ventricular premature complex(es) no longer present ?? Electronically Signed On 07-18-2024 22:55:56 EST by MEGA ??BALL ? Dictated By: ?Mega Acuña D.O. ? Signed By: ?07/18/246 ? DD/ 1038 ? TD/TT: ? Glove Parts Cutter: Procedure Note Radiology, Radiologist, MD - 07/18/[address] [address] Electrocardiograph Report Signed Patient: KONRAD GUZMAN GMR#: [id number] : 5Acct:[id number] Age/Sex: 79 / FADM Date: 07/18/24 Loc: PST Attending Dr: Esperanza Maya M.D. Ordering Physician: Esperanza Maya M.D. Date of Service: 07/18/24 Procedure(s): ECG 12 lead Accession Number(s): [id number] cc: [facility] Test Date: 2024-07-18 Pat Name: KONRAD GUZMAN Department: Room: - Gender: Female Senior It Architect: : 1945 Requested By: KOFI BOWERS Order Number: [id number] Reading MD: MEGA ACUÑA Measurements Intervals Fay Rate: 84 P: 13 IA: 158 QRS: 70 QRSD: 98 T: 66 QT: 379 QTc: 450 Interpretive Statements SINUS RHYTHM WITH SINUS ARRHYTHMIA Compared to ECG 06/26/2021 12:41:20 Ventricular premature complex(es) no longer present Electronically Signed On 07-18-2024 22:55:56 EST by MEGA ACUÑA Dictated By: Mega Acuña D.O. Signed By:07/18/24 2256 DD/ 1038 TD/TT: Glove Parts Cutter: Authorizing ProviderResult TypeResult StatusGeneric External Data Provider CLINISYNC IMAGINGFinal Result documented in this encounter Visit Diagnoses Not on filedocumented in this encounter Additional Health Concerns AssessmentNoted TimePHQ-9 Depression Total Score: 10:00 AM EDT documented as of this encounter Care Teams Team MemberRelationshipSpecialtyStart DateEnd Date Kofi Bowers MD [address] [facility] [address] [place] [address] PCP - GeneralInternal Medicine12/22/22documented as of this encounter
--- OUTSIDE RECORDS SUMMARY | 2025-06-24 08:49 | XMS_ITS | Encounter Summary ---
Author Organization [facility] Address [address] [place] [address] Care Team Providers Care Art Department Head Name Role Phone Kofi Bowers MD Primary Care Provider [phone] Encounter Details DateTypeDepartmentCare Team (Latest Contact Info)Wgcplwbkhcm58/11/2024linisync Result Encounter [facility] External Department Unsolicited Provider, Generic External Data Social History Tobacco UseTypesPacks/DayYears UsedDateSmoking Tobacco: FormerCigarettesQuit: 08/15/1999Smokeless Tobacco: NeverAlcohol UseStandard Drinks/WeekCommentsNot Currently0 (1 standard drink = 0.6 oz pure alcohol)Caffeine: 1-2 cups per day; none soda/popPHQ-2AnswerDate RecordedPatient Health Questionnaire-2 Score0 06/06/2025CommentsUnknownSex and Gender InformationValueDate RecordedSex Assigned at BirthNot on fileLegal OcpRjnmiw96/15/2023 6:38 PM EDTGender Identity Not on fileSexual OrientationNot on filedocumented as of this encounter Functional Status * Over the past 2 weeks, how often have you been bothered by any of the following problems?QuestionAnswerDate of AssessmentAuthorLittle interest or pleasure in doing thingsNot at all06/06/2025 8:54 AM Lilly Reynoso LPN Feeling down, depressed, or hopelessNot at all06/06/2025 8:54 AM Lilly Reynoso LPNPatient Health Questionnaire-2 Hzipq325 8:54 AM Lilly Reynoso LPN documented as of this encounter Plan of Treatment DateTypeDepartmentCare Team (Latest Contact Info)Rhgzzwckuzd63/30/2026 11:30 AM EDTOffice Visit [facility] [address] [place] [phone] Kofi Bowers MD [address] [place] [address] documented as of this encounter Procedures Procedure NamePriorityDate/TimeAssociated DiagnosisCommentsCT THORACIC SPINE WO IV KFUFIBAU51/11/2024 9:00 AM EDT documented in this encounter Results * CT thoracic spine wo IV contrast (05/25/2024 9:00 AM EDT)Anatomical Region LateralityModalitySpine, T-spineComputed TomographySpecimen (Source)Anatomical Location / LateralityCollection Method / VolumeCollection TimeReceived Time 05/25/2024 9:00 AM EDT Narrative 05/25/2024 9:03 AM EDT [facility] ?[address] ? [place] [address] ? CT Scan Report ? Signed ? Patient: KONRAD GUZMAN ? MR#: [id number] ?? : 1945 ?Acct:[id number] ?? Age/Sex: 79 / F ?ADM Date: 05/24/24 ?? Loc: CT ? Attending Dr: Esperanza Fallon M.D. ? Ordering Physician: Esperanza Fallon M.D. ?? Date of Service: 05/24/24 ?? Procedure(s): CT thoracic spine wo con ?? Accession Number(s): [id number] ? cc: KOFI BOWERS ? [facility] ? [address] ? [place] [address] ? Patient Name: ?? KONRAD GUZMAN ? MRN: [id number] ? date: 1945 ?Sex: F ?? Assigned Patient Location: CT ?? Current Patient Location: ? Accession/Order Number: [id number] ?? Exam Date: 05/24/2024 ??13:23 ?Report Date: 05/25/2024 ??09:00 ? At the request of: ?? ANDRIUS ??GIEDRAITIS ? Procedure: ??CT thoracic spine wo con ? EXAMINATION: CT thoracic spine wo con, CT lumbar spine wo con ? HISTORY: Low Back Pain Syndrome ? COMPARISON: No relevant comparison available. ? FINDINGS: ?? BONES: Normal alignment of the thoracic and lumbar vertebral bodies with no ?? spondylolisthesis. Mild anterior wedging of the T7 vertebral body, endplate ?? sclerosis suggests chronic change Severe degenerative spondylosis. Moderate ?? diffuse facet osteoarthropathy. Posterior decompression bilateral ?? transpedicular fusion L3-S1 with no mechanical failure ?? DISC SPACES: Moderate to severe multilevel disc space narrowing with endplate ?? sclerosis and vacuum disks. Interbody spacer L5-S1 ?? PARASPINOUS: Negative. No paraspinous abnormality is seen. ?? OTHER: Extensive atherosclerosis ? CT/CT thoracic spine wo con ?? IMPRESSION: ? Moderate to severe diffuse degenerative changes ? Anterior wedge compression fracture of T7 likely chronic ? Lumbosacral fusion with no mechanical failure ? Electronically authenticated by: PATITO ??LIZA ?? Date: 05/25/2024 ??09:00 ? Dictated By: ?Patito De Jesus M.D. ? Signed By: ?05/25/24 0903 ? DD/ 0900 ? TD/TT: ? Cushion Mat Maker: Procedure Note Radiology, Radiologist, MD - 05/28/2024 [place] [address] CT Scan Report Signed Patient: KONRAD GUZMAN GMR#: [id number] : 5Acct:[id number] Age/Sex: 79 / FADM Date: 05/24/24 Loc: CT Attending Dr: Espearnza Fallon M.D. Ordering Physician: Esperanza Fallon M.D. Date of Service: 05/24/24 Procedure(s): CT thoracic spine wo con Accession Number(s): [id number] cc: KOFI BOWERS The [address] [address] Patient Name: KONRAD GUZMAN MRN: [id number] date: 1945 Sex: F Assigned Patient Location: CT Current Patient Location: Accession/Order Number: [id number] Exam Date: 05/24/2024 13:23 Report Date: 05/25/2024 09:00 At the request of: ESPERANZA FALLON Procedure: CT thoracic spine wo con EXAMINATION: [...] Jesus M.D. Signed By:05/25/24902 DD/ 9 TD/TT: Cushion Mat Maker: Authorizing ProviderResult TypeResult StatusGeneric External Data ProviderIMG CT PROCEDURESFinal Result documented in this encounter Visit Diagnoses Not on filedocumented in this encounter Additional Health Concerns AssessmentNoted TimePHQ-9 Depression Total Score: 10:00 AM EDT documented as of this encounter Care Teams Team MemberRelationshipSpecialtyStart DateEnd Date Kofi Bowers MD [address] [place] [address] PCP - GeneralInternal Medicine12/22/22documented as of this encounter
--- OUTSIDE RECORDS SUMMARY | 2025-06-24 08:49 | XMS_ITS | Encounter Summary ---
Author Organization [facility] Address [address] [place] [address] Care Team Providers Care Rotary Slicing Machine Operator Name Role Phone Kofi Bowers MD Primary Care Provider [phone] Encounter Details DateTypeDepartmentCare Team (Latest Contact Info)Hatphyinixv57/11/2024linisync Result Encounter [facility] External Department Unsolicited Provider, Generic External Data Social History Tobacco UseTypesPacks/DayYears UsedDateSmoking Tobacco: FormerCigarettesQuit: 08/15/1999Smokeless Tobacco: NeverAlcohol UseStandard Drinks/WeekCommentsNot Currently0 (1 standard drink = 0.6 oz pure alcohol)Caffeine: 1-2 cups per day; none soda/popPHQ-2AnswerDate RecordedPatient Health Questionnaire-2 Score0 06/06/2025CommentsUnknownSex and Gender InformationValueDate RecordedSex Assigned at BirthNot on fileLegal NpxNyvrns77/15/2023 6:38 PM EDTGender Identity Not on fileSexual OrientationNot on filedocumented as of this encounter Functional Status * Over the past 2 weeks, how often have you been bothered by any of the following problems?QuestionAnswerDate of AssessmentAuthorLittle interest or pleasure in doing thingsNot at all06/06/2025 8:54 AM Lilly Reynoso LPN Feeling down, depressed, or hopelessNot at all06/06/2025 8:54 AM Lilly Reynoso LPNPatient Health Questionnaire-2 Rhyag734 8:54 AM Lilly Reynoso LPN documented as of this encounter Plan of Treatment DateTypeDepartmentCare Team (Latest Contact Info)Eneqfqpgnjj57/30/2026 11:30 AM EDTOffice Visit [facility] [place] [facility] [address] [place] [address] Kofi Bowers MD [address] [place] [address] documented as of this encounter Procedures Procedure NamePriorityDate/TimeAssociated DiagnosisCommentsCT LUMBAR SPINE WO IV ZGSPKMKG52/11/2024 9:00 AM EDT documented in this encounter Results * CT lumbar spine wo IV contrast (05/25/2024 9:00 AM EDT)Anatomical Region LateralityModalitySpine, L-spineComputed TomographySpecimen (Source)Anatomical Location / LateralityCollection Method / VolumeCollection TimeReceived Time 05/25/2024 9:00 AM EDT Narrative 05/25/2024 9:03 AM EDT [facility] ?[address] ? [place] [address] ? CT Scan Report ? Signed ? Patient: KONRAD GUZMAN ? MR#: [id number] ?? : 1945 ?Acct:[id number] ?? Age/Sex: 79 / F ?ADM Date: 05/24/24 ?? Loc: CT ? Attending Dr: Esperanza Fallon M.D. ? Ordering Physician: Esperanza Fallon M.D. ?? Date of Service: 05/24/24 ?? Procedure(s): CT lumbar spine wo con ?? Accession Number(s): [id number] ? cc: KOFI BOWERS ? [facility] ? [address] ? [place] [address] ? Patient Name: ?? KONRAD GUZMAN ? MRN: [id number] ? date: 1945 ?Sex: F ?? Assigned Patient Location: CT ?? Current Patient Location: ? Accession/Order Number: [id number] ?? Exam Date: 05/24/2024 ??13:23 ?Report Date: 05/25/2024 ??09:00 ? At the request of: ?? ANDRIUS ??GIEDRAITIS ? Procedure: ??CT lumbar spine wo con ? EXAMINATION: CT thoracic [...] seen. ?? OTHER: Extensive atherosclerosis ? CT/CT lumbar spine wo con ?? IMPRESSION: ? Moderate to severe diffuse degenerative changes ? Anterior wedge compression fracture of T7 likely chronic ? Lumbosacral fusion with no mechanical failure ? Electronically authenticated by: PATITO ??LIZA ?? Date: 05/25/2024 ??09:00 ? Dictated By: ?Patito De Jesus M.D. ? Signed By: ?05/25/24 0903 ? DD/ 0900 ? TD/TT: ? Housekeeping Laundry Worker: Procedure Note Radiology, Radiologist, MD - 05/25/2024 [place] [address] CT Scan Report Signed Patient: KONRAD GUZMAN GMR#: [id number] : 5Acct:[id number] Age/Sex: 79 / FADM Date: 05/24/24 Loc: CT Attending Dr: Esperanza Fallon M.D. Ordering Physician: Esperanza Fallon M.D. Date of Service: 05/24/24 Procedure(s): CT lumbar spine wo con Accession Number(s): [id number] cc: KOFI BOWERS The [address] [address] Patient Name: KONRAD GUZMAN MRN: [id number] date: 1945 Sex: F Assigned Patient Location: CT Current Patient Location: Accession/Order Number: [id number] Exam Date: 05/24/2024 13:23 Report Date: 05/25/2024 09:00 At the request of: ESPERANZA FALLON Procedure: CT lumbar spine wo con EXAMINATION: [...] Jesus M.D. Signed By:05/25/24902 DD/ 9 TD/TT: Housekeeping Laundry Worker: Authorizing ProviderResult TypeResult StatusGeneric External Data ProviderIMG CT PROCEDURESFinal Result documented in this encounter Visit Diagnoses Not on filedocumented in this encounter Additional Health Concerns AssessmentNoted TimePHQ-9 Depression Total Score: 10:00 AM EDT documented as of this encounter Care Teams Team MemberRelationshipSpecialtyStart DateEnd Date Kofi Bowers MD [address] [place] [address] PCP - GeneralInternal Medicine12/22/22documented as of this encounter
--- OUTSIDE RECORDS SUMMARY | 2025-06-24 08:49 | XMS_ITS | Encounter Summary ---
Author Organization [facility] Address [address] [place] [address] Care Team Providers Care Industrial Automation Engineer Name Role Phone Kofi Bowers MD Primary Care Provider [phone] Encounter Details DateTypeDepartmentCare Team (Latest Contact Info)Vkoiykstrqe38/27/2024linisync Result Encounter [facility] External Department Unsolicited Provider, Generic External Data Social History Tobacco UseTypesPacks/DayYears UsedDateSmoking Tobacco: FormerCigarettesQuit: 08/15/1999Smokeless Tobacco: NeverAlcohol UseStandard Drinks/WeekCommentsNot Currently0 (1 standard drink = 0.6 oz pure alcohol)Caffeine: 1-2 cups per day; none soda/popPHQ-2AnswerDate RecordedPatient Health Questionnaire-2 Score0 06/06/2025CommentsUnknownSex and Gender InformationValueDate RecordedSex Assigned at BirthNot on fileLegal YxyDofguy32/15/2023 6:38 PM EDTGender Identity Not on fileSexual OrientationNot on filedocumented as of this encounter Functional Status * Over the past 2 weeks, how often have you been bothered by any of the following problems?QuestionAnswerDate of AssessmentAuthorLittle interest or pleasure in doing thingsNot at all06/06/2025 8:54 AM Lilly Reynoso LPN Feeling down, depressed, or hopelessNot at all06/06/2025 8:54 AM Lilly Reynoso LPNPatient Health Questionnaire-2 Vgjze936 8:54 AM Lilly Reynoso LPN documented as of this encounter Plan of Treatment DateTypeDepartmentCare Team (Latest Contact Info)Ubczsdarbrx62/30/2026 11:30 AM EDTOffice Visit [facility] [address] [place] [phone] Kofi Bowers MD [address] [place] [address] documented as of this encounter Procedures Procedure NamePriorityDate/TimeAssociated DiagnosisCommentsXR LUMBAR SPINE MIN 4V05/11/2024 10:18 AM EDT documented in this encounter Results * XR LUMBAR SPINE MIN 4V (05/11/2024 10:18 AM EDT)Anatomical RegionLaterality ModalityOtherSpecimen (Source)Anatomical Location / LateralityCollection Method / VolumeCollection TimeReceived Time05/11/2024 10:18 AM EDT Narrative 05/11/2024 10:21 AM EDT [facility] ?[address] ? [place] [address] ?XRay Report ? Signed ? Patient: KONRAD GUZMAN ? MR#: [id number] ?? : 1945 ?Acct:[id number] ?? Age/Sex: 79 / F ?ADM Date: 05/10/24 ?? Loc: RAD ? Attending Dr: Rylee Rouse VETERINARY LABORATORY TECHNICIAN ? Ordering Physician: Rylee Rouse NP ?? Date of Service: 05/10/24 ?? Procedure(s): XR lumbar spine min 4V ?? Accession Number(s): [id number] ? cc: KOFI BOWERS ; Rylee Rouse NP ? [facility] ? [address] ? [place] [address] ? Patient Name: ?? KONRAD GUZMAN ? MRN: [id number] ? date: 1945 ?Sex: F ?? Assigned Patient Location: RAD ?? Current Patient Location: RAD ?? Accession/Order Number: [id number] ?? Exam Date: 05/10/2024 ??13:28 ?Report Date: 05/11/2024 ??10:18 ? At the request of: ?? RYLEE ??NASIM ? Procedure: ??XR lumbar spine min 4V ? EXAMINATION: XR lumbar spine min 4V, [...] ?? aneurysm. ?? OTHER: Negative. ? XR/XR lumbar spine min 4V ?? IMPRESSION: ? 1. Grossly stable degenerative changes and surgical changes of the thoracic ?? lumbar spine. ? Electronically authenticated by: JOHNNY ??YAZ ?? Date: 05/11/2024 ??10:18 ? Dictated By: ?Johnny Victoria M.D. ? Signed By: ?05/11/24 1021 ? DD/ 1018 ? TD/TT: ? Kiln Hand: Procedure Note Radiology, Radiologist, MD - 05/11/[address] [address] XRay Report Signed Patient: KONRAD GUZMAN GMR#: [id number] : 5Acct:[id number] Age/Sex: 79 / FADM Date: 05/10/24 Loc: RAD Attending Dr: Rylee Rouse NP Ordering Physician: Rylee Rouse NP Date of Service: 05/10/24 Procedure(s): XR lumbar spine min 4V Accession Number(s): [id number] cc: KOFI BOWERS ; Rylee Rouse NP The [address] [address] Patient Name: KONRAD GUZMAN MRN: [id number] date: 1945 Sex: F Assigned Patient Location: RAD Current Patient Location: RAD Accession/Order Number: [id number] Exam Date: 05/10/2024 13:28 Report Date: 05/11/2024 [...] M.D. Signed By:05/11/24 1021 DD/ 1018 TD/TT: Kiln Hand: Authorizing ProviderResult TypeResult StatusGeneric External Data Provider CLINISYNC IMAGINGFinal Result documented in this encounter Visit Diagnoses Not on filedocumented in this encounter Additional Health Concerns AssessmentNoted TimePHQ-9 Depression Total Score: 10:00 AM EDT documented as of this encounter Care Teams Team MemberRelationshipSpecialtyStart DateEnd Date Kofi Bowers MD [address] [facility] [address] [place] [address] PCP - GeneralInternal Medicine12/22/22documented as of this encounter
--- OUTSIDE RECORDS SUMMARY | 2025-06-24 08:49 | XMS_ITS | Clinical Summary ---
Author Organization [facility] Address [facility] [place] [address] Care Team Providers Care Securities Lending Trader Name Role Phone Unavailable Primary Care Provider Unavailabl e Allergies Active AllergyReactionsCriticalityNoted OchuJgaklbnwTdbsthOoqnakow32/12/2014 SskcxqpffNbmsgcwz15/12/2014 Medications MedicationSigDispense QuantityRefillsLast FilledStart DateEnd DateStatus meloxicam [...] to affected area.Active Active Problems ProblemNoted DateDiagnosed UwrjTwadjqwzsesioz69/12/5230Hmipkczb52/12/2014Obesity 01/24/2014 Social History Tobacco UseTypesPacks/DayYears UsedDateSmoking Tobacco: Never Assessed CommentsUnknownSex and Gender InformationValueDate RecordedSex Assigned at Not on fileLegal HxxTifpjr72/02/2012 10:41 AM ESTGender IdentityNot on file Sexual OrientationNot on file Last Filed Vital Signs Vital SignReadingTime TakenCommentsBlood Xbtasefa539/6006 12:45 PM EDT Kcidc8245 12:45 PM EDTTemperature--Respiratory Rate--Oxygen Saturation-- Inhaled Oxygen Concentration--Weight--Height--Body Mass Index-- Plan of Treatment Health MaintenanceDue DateLast DoneCommentsAnxiety Tqchqmiew36/06/1963Depression Iplxjywnh08/06/1963DTaP,Tdap,Td Vaccine (1 - Tdap)1964Diabetes Screening 1990Pneumococcal Vaccine: 50+ (1 of 1 - PCV)1995Shingrix Vaccine (1 of 2)1995Bone Density Lpdsyxklg53/06/2010RSV Vaccine (1 - 1-dose 75+ series)2020Advance Directive Condlmsnxt52/01/2025ovid-19 Vaccine (1 - 2024-26 season)2025Influenza Vaccine (#1)2025 Insurance
--- OUTSIDE RECORDS SUMMARY | 2025-06-24 08:50 | XMS_ITS | Clinical Summary ---
Author Organization [facility] Address [address] [place] [address] Care Team Providers Care Insole Doubler Name Role Phone Kofi Bowers MD Primary Care Provider [phone] Allergies Active AllergyReactionsCriticalityNoted DateCommentsIodineShortness of breath High12/14/20226768XngqzvrshqezNysna69/02/7527EuxuglgpdyRqseniakq62/02/2023Shellfish EwccdwtKpxpgafj84/12/2014 Medications MedicationSigDispense QuantityRefillsLast FilledStart DateEnd DateStatus aspirin [...] same time.Active cholecalciferol (Vitamin D-3) 1.25 MG (84023 UT) tablet Vitamin D3 5000IUActive Calcium Citrate-Vitamin [...] capsule Take 50 mg by mouth at /02/2025Active Glucose Blood (Blood Glucose Test) strip Indications:Type 2 diabetes mellitus with hyperglycemia, without long-term current use of insulin ([facility])1 each by In Vitro route Daily 100 strip 5Active Blood Glucose Monitoring Suppl (Blood Glucose Monitor System) w/Device kit Indications:Type 2 diabetes mellitus with hyperglycemia, without long-term current use of insulin ([facility])1 each Daily 1 kit 5Active Lancets 30G [facility] Indications:Type 2 diabetes mellitus with hyperglycemia, without long-term current use of insulin ([facility])1 each Daily 100 each 5Active Alcohol Swabs (Alcohol Prep) 70 % pads Indications:Type 2 diabetes mellitus with hyperglycemia, without long-term current use of insulin ([facility])1 Pad Daily 100 each 5Active pen needle 32G x 4 mm misc Indications:Type 2 diabetes mellitus with hyperglycemia, with long-term current use of insulin ([facility])Inject 1 each under the skin Daily 100 each 5Active Lantus SoloStar 100 UNIT/ML pen Indications:Type 2 diabetes mellitus with hyperglycemia, with long-term current use of insulin ([facility])INJECT 60 UNITS SUBCUTANEOUSLY (UNDER THE SKIN) IN THE MORNING 15 mL 5Active empagliflozin (Jardiance) 10 MG Indications:Diabetes mellitus type 2 with neurological manifestations (HCC)Take 1 tablet (10 mg) by mouth Daily 30 tablet 110506Active liothyronine (Cytomel) 25 MCG tablet Indications:Hypothyroidism, unspecified type0.5 tablet on an empty stomach Orally two times daily. D.A.W. as Sigma or Green[employer] Domain Brand ONLY for90 days 200 tablet 5Active traMADol (Ultram) 50 MG tablet Indications:Failed back syndromeTake 1 tablet (50 mg) by mouth every 6 (six) hours if needed for severe pain 120 tablet 5Active tiZANidine (Zanaflex) 4 MG tablet Indications:Acute myofascial strain of lumbar region, subsequent encounterTake 1 tablet (4 mg) by mouth every 8 (eight) hours if needed for muscle spasms 30 tablet 5Active methylPREDNISolone (Medrol Dospak) 4 MG tablets Indications:Acute myofascial strain of lumbar region, initial encounterFollow schedule on package instructions 21 tablet Discontinued(Therapy completed) tiZANidine (Zanaflex) 4 MG tablet Indications:Acute myofascial strain of lumbar region, initial encounterTake 1 tablet (4 mg) by mouth every 8 (eight) hours if needed for muscle spasms 30 tablet Discontinued(Reorder) tiZANidine (Zanaflex) 4 MG tablet Indications:Acute myofascial strain of lumbar region, subsequent encounterTake 1 tablet (4 mg) by mouth every 8 (eight) hours if needed for muscle spasms 30 tablet Discontinued(Reorder)Hospital, Clinic, or Other Facility Administered MedicationOrdered DoseRouteFrequencyStart DateEnd DateStatus triamcinolone acetonide (Kenalog-40) injection 40 mg Indications:Acute myofascial strain of lumbar region, initial mgIM OnceEnded Active Problems ProblemNoted DateDiagnosed DateMorbid (severe) obesity due to excess calories 08/28/2024Restless leg wqevbgxs80/05/1209Xqbmyps02/14/2024Ectropion of lower exyftl8203/11/2023losed fracture of orbital floor (blow-out)03/11/2023iplopia 03/11/2023 Overview (03/11/2023): Removal Reason: Resolved. Fracture of orbit03/11/2023Fracture of radial neck03/11/2023ain in elbow 03/11/2023Venous hypertension of lower owuphanow63/09/2023denomatous polyp of ascending colon12/14/2022enign essential gjmjfwygftgc84/02/2023hronic fatigue 12/14/2022hronic pain tvnfgreb15/02/2023ontinuous positive airway pressure rpmobawbn36/02/2023ecreased estrogen level12/14/2022iabetes mellitus type 2 with neurological wenhyfkzwidpex09/02/2023Type 2 diabetes mellitus with agulhgoyjaawj16/02/2023iabetic retinopathy associated with controlled type 2 diabetes fjkfexqd38/02/2023ifficulty in walking, not elsewhere classified 12/14/2022ESS (euthyroid sick syndrome)12/14/2022Failed back dneaktej38/02/2023 GERD (gastroesophageal reflux disease)12/14/2022Sleep initiation disorder 12/14/2022Mixed batloildgvqtyg68/02/2023Non-seasonal allergic inhnlail82/02/2023 Ggttebcrjv29/02/2023eripheral vascular uqbyhqw2812/14/2022eripheral venous vurfzdoxryanw59/02/2023Trigger thumb, left thumb12/14/2022Vitreous floaters of both eyes12/14/20222929Ywixpdit18/25/2022cquired trigger vxezqz4201/15/2021ody mass index (BMI) 35.0-35.9, adult04/21/2020OSA (obstructive sleep apnea)04/11/2019 Overview (03/11/2023): Last Assessment & Plan: Continue to wear cpap Benign neoplasm of colon06/27/2018History of colonic bgklcz0406/01/2018Family history of malignant neoplasm of gastrointestinal tract06/01/2018Lipoprotein deficiency tfrgamds78/17/2018Long term current use of zuxlhlz3101/28/2016 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[facility])11/25/2015Ex-ikwzrh7210/22/2015History of fall10/02/20150068Jvxnlxjq93/27/2015Diabetic polyneuropathy associated with type 2 diabetes iehedfrz51/01/4752Gfbvztet42/12/0001Xkqkywqhvnjlml81/12/2014 Resolved Problems ProblemNoted DateDiagnosed DateResolved DateLow HDL (under 40)12/14/2022 12/14/2022 Encounters DateTypeDepartmentCare EmxnOcfmarthdfm76/03/2025 11:30 AM ESTOffice Visit [facility] [facility] [address] [place] [address] Kofi Bowers MD Acute myofascial strain of lumbar region, subsequent encounter; Need for zyinsbaposf31/03/2025amboo flowsheet [facility] [facility] [address] [place] [address] Kofi Bowers MD 06/17/20258900Rieaue09/24/2025Telephone [facility] [facility] [address] [place] [address] Kofi Bowers MD 06/06/2025 9:00 AM EDTOffice Visit [facility] [place] [facility] [address] [place] [address] Kofi Bowers MD Acute myofascial strain of lumbar region, initial encounter (Primary Dx) 06/06/2025amboo flowsheet [facility] [place] [facility] [address] [place] [address] Kofi Bowers MD 06/06/20257758Nuukdr13/07/2025bstract [facility] [place] [facility] [address] [place] [address] Kofi Bowers MD 09/29/2025Telephone [facility] [place] [facility] [address] [place] [address] Kofi Bowers MD 05/06/2025bstract [facility] [place] [facility] [address] [place] [address] Kofi Bowers MD 04/29/2025Refill [facility] [place] [facility] [address] [place] [address] Kofi Bowers MD Hypothyroidism, unspecified type ; Failed back nxaxumrx97/12/2025bstract [facility] [place] [facility] [address] [place] [address] Kofi Bowers MD 04/24/2025Telephone [facility] [place] [facility] [address] [place] [address] Kofi Bowers MD med not bamscax1604/22/2025Telephone [facility] [place] [facility] [address] [place] [address] Kofi Bowers MD 04/19/2025Telephone [facility] [place] [facility] [address] [place] [address] Kofi Bowers MD Med Wkkwuf9504/18/2025Refill [facility] [place] [facility] [address] [place] [address] Skye Perla PA Type 2 diabetes mellitus with hyperglycemia, with long-term current use of insulin (HCC)04/17/2025 11:00 AM EDTOffice Visit [facility] [place] [facility] [address] [place] [address] Kofi Bowers MD Routine general medical examination at health care facility (Primary Dx); ACP (advance care planning); Diabetes mellitus type 2 with neurological manifestations (HCC)04/17/2025 Telephone [facility] [place] [facility] [address] [place] [address] Kofi Bowers MD 04/17/2025amboo [facility] [address] [facility] [address] [place] [address] Kofi Bowers MD 04/17/20255375Puwtkc67/21/2025Refill [facility] [address] [facility] [address] [place] [address] Kofi Bowers MD Failed back bniwkwfc80/12/2025Telephone [facility] [address] [facility] [address] [place] [address] Kofi Bowers MD from Last 3 Months Immunizations ImmunizationAdministration DatesNext DueABRYSVO - Respiratory syncytial virus (RSV), vaccine, bivalent, protein subunit RSV prefusion F, diluent reconstituted, 0.5 mL, PF06/20/2024Influenza, High Dose Seasonal, Preservative Free06/17/2025,06/20/2024,09/15/2020Influenza, High-dose Seasonal, Quadrivalent, Preservative Free06/06/2023Influenza, Recombinant, injectable, preservative free 05/15/2020Influenza, injectable, MDCK, preservative free, fwuredxwnqdr92/06/2021 Influenza, injectable, quadrivalent, preservative free06/15/2019,05/22/2018, 08/02/2015Pneumococcal Polysaccharide YCUB9463Td (adult), 5 Lf tetanus toxoid, preservative free, mtvrjtek37/17/2015Zoster, Ikqtjtcfdrz03/29/2025, 12/07/2024 Family History Medical HistoryRelationNameCommentsCancerBrotherColon ; Didn't indicate which brother among the 3Heart diseaseBrotherPassed ; Didn't indicate which brother among the 3Kidney problemBrotherPassed ; Didn't indicate which brother among the 3CancerFatherDiabetesFatherHeart diseaseFatherHypertensionFatherCancerMother Colon CancerCancerOtherSpouse: Prostate that metastisized to bone ; Eryhtroid LeukemiaDiabetesSonTourette kqkouyrgZglLqgwwlesWlqbHtbacuFgofcbwgQmqyqrlb1Upvlzb XsjuhbodSbjqneNkhnbohnZtadzQxskqyhwUpqaksj4BssPhhsj Social History Tobacco UseTypesPacks/DayYears UsedDateSmoking Tobacco: FormerCigarettesQuit: 08/15/1999Smokeless Tobacco: Never Tobacco Cessation:Counseling Given: Yes Alcohol UseStandard Drinks/WeekCommentsNot Currently0 (1 standard drink = 0.6 oz pure alcohol)Caffeine: 1-2 cups per day; none soda/popPHQ-2AnswerDate Recorded Patient Health Questionnaire-2 Nfvqn671CommentsUnknownSex and Gender InformationValueDate RecordedSex Assigned at BirthNot on fileLegal Sex Irqcrb1110/27/2022 6:38 PM EDTGender IdentityNot on fileSexual OrientationNot on file Last Filed Vital Signs Vital SignReadingTime TakenCommentsBlood Jbkymqrq718/6006/17/2025 11:32 AM EST Qvxdw080906/17/2025 11:32 AM XOYLmhykiltkaw54.4 ??C (97.5 ??F)02/08/2025 11:07 AM EDTRespiratory Ktso735908/17/2024 11:32 AM ESTOxygen Amsiwyzveg41%06/17/2025 11:32 AM ESTInhaled Oxygen Concentration--Xjwanm32 kg (194 lb)06/17/2025 11:32 AM EST Gnfkml525.4 cm (5')06/17/2025 11:32 AM ESTBody Mass Index37.8906/17/2025 11:32 AM EST Plan of Treatment DateTypeDepartmentCare Team (Latest Contact Info)Eracnmoxrdf61/30/2026 11:30 AM EDTOffice Visit [facility] [address] [facility] [address] [place] [address] Kofi Bowers MD [address] [facility] [address] [place] [address] Health MaintenanceDue DateLast DoneCommentsPneumococcal Vaccine: 65+ Years (2 of 2 - PCV)COVID-19 Vaccine (3 - 2025-26 season)2025 10/01/2020, 1Diabetes: Hemoglobin A1C5004/17/2025, 03/07/2025, 01/14/2025, Additional history existsMedicare Annual Wellness (AWV)04/17/2026 04/17/2025, 04/09/2024, 3Diabetes: Urine Protein Txssrcukt17/05/2026 04/19/2025, 04/09/2024, 01/18/2024, Additional history existsDiabetes: Retinopathy Zdfnxefhe52, 05/03/2024, 04/28/2020, Additional history existsInfluenza LdjrlvoHginnritd97/03/2025, 06/20/2024, 06/06/2023, Additional history exists Procedures Procedure NamePriorityDate/TimeAssociated DiagnosisCommentsDIABETIC RETINOPATHY SCREENING - OU - BOTH CNFUOxxlopf89/22/2025 LIPID SFKLMZoucvnk36/05/2025 9:53 AM EDT Diabetes mellitus type 2 with neurological manifestations (HCC) COMPREHENSIVE METABOLIC PGABVXowsahp66/05/2025 9:53 AM EDT Diabetes mellitus type 2 with neurological manifestations (HCC) MICROALBUMIN / CREATININE URINE GTQTCCaxgsvs52/05/2025 9:53 AM EDT Diabetes mellitus type 2 with neurological manifestations (HCC) POCT GLYCATED HEMOGLOBIN, DMSZXHwdqiuv26/03/2025 11:24 AM EDT Diabetes mellitus type 2 with neurological manifestations (HCC) from Last 3 Months Results * Diabetic Retinopathy Screening - OU - Both Eyes (05/06/2025)ComponentValueRef RangeTest MethodAnalysis TimePerformed AtPathologist SignatureRESULTSndr Anatomical RegionLateralityModalityHeadOtherSpecimen (Source)Anatomical Location / LateralityCollection Method / VolumeCollection TimeReceived Time 05/06/2025 Narrative Authorizing ProviderResult TypeResult StatusDajosé Bowers MDSSM HEALTH CARE PHOTOGRAPHY Final Result * Microalbumin / creatinine urine ratio (04/19/2025 9:53 AM EDT)ComponentValue Ref RangeTest MethodAnalysis TimePerformed AtPathologist SignatureCREATININE, RANDOM WTFLK5546 - 275 mg/dLQUESTALBUMIN, URINE0.3See Note: mg/dLQUESTComment: Reference [...] specimen obtained by clean catch procedure / Ufbpune6004/19/2025 9:53 AM EDT04/19/2025 9:53 AM EDT Narrative [facility] - 2025 11:17 AM EDT FASTING:YES FASTING: YES Resulting Agency Comment Performing Organization Information ?Site ID: QPT ?Name: [facility] ?Address: [address] [place] [phone] ?Director: Cezar Singh MD Authorizing ProviderResult TypeResult Jorge Luis WOODS URINE ORDERABLESFinal ResultPerforming OrganizationAddressCity/State/ZIP CodePhone Number [facility] * (ABNORMAL) Lipid panel (04/19/2025 9:53 AM EDT)ComponentValueRef RangeTest MethodAnalysis TimePerformed AtPathologist SignatureCHOLESTEROL, ZEBTH148<200 mg/dLQUESTHDL FXBHEPEDOSE57> OR = 50 mg/qEDBMOQHESVNNYEPWZXO815(H)<150 mg/dL QUESTLDL JDDYHVIFICW81av/dL (calc)QUESTComment: Reference range: <100 Desirable range <100 mg/dL for primary prevention; <70 mg/dL for patients with CHD or diabetic patients with > or = 2 CHD risk factors. LDL-C is now calculated using the Tien-Bell calculation, which is a validated novel method providing better accuracy than the Friedewald equation in the estimation of LDL-C. Tien SS et al. ARON. 2013;310(19): 4467-5986 (http://education.HackHands.360Cities/faq/QPE008) CHOL/HDLC RATIO2.8<5.0 (calc)QUESTNON HDL BJWRWJZPKCQ56<130 mg/dL (calc)QUEST Comment: For patients with diabetes plus 1 major ASCVD risk factor, treating to a non-HDL-C goal of <100 mg/dL (LDL-C of <70 mg/dL) is considered a therapeutic option. Specimen (Source)Anatomical Location / LateralityCollection Method / Volume Collection TimeReceived TimeBloodVenous blood specimen / Cymsyvy7704/19/2025 9:53 AM EDT04/19/2025 9:53 AM EDT Narrative [facility] - 2025 11:17 AM EDT FASTING:YES FASTING: YES Resulting Agency Comment Performing Organization Information ?Site ID: QPT ?Name: [facility] ?Address: [address] [place] [address], [address] [place] [phone] ?Director: Cezar Singh MD Authorizing ProviderResult TypeResult [...] should be confirmed with a follow-up test. NXV223 - 25 mg/dLQUESTCreatinine0.900.60 - 0.95 mg/iFZFARFCIRO06> OR = 60 mL/min/1.99c7SWUFQSEQ/CREATININE RATIOSEE NOTE:6 - 22 (calc)QUESTComment: ?? Not Reported: BUN and Creatinine are within ?? reference range. ? Hwgcde871746 - 146 mmol/LQUESTPotassium, Bld4.03.5 - 5.3 mmol/OKOZGFZyfvmsux235 98 - 110 mmol/LQUESTCarbon Ynaytxq9601 - 32 mmol/LQUESTCalcium9.48.6 - 10.4 mg/dLQUESTPROTEIN, TOTAL6.96.1 - 8.1 g/dLQUESTALBUMIN4.23.6 - 5.1 g/dLQUEST GLOBULIN2.71.9 - 3.7 g/dL (calc)QUESTALBUMIN/GLOBULIN RATIO1.61.0 - 2.5 (calc) QUESTBILIRUBIN, TOTAL0.40.2 - 1.2 mg/dLQUESTALKALINE GVKFIBOEBUG2614 - 153 U/L UMBLDAMB4714 - 35 U/NMMDMCIEB217 - 29 U/LQUESTSpecimen (Source)Anatomical Location / LateralityCollection Method / VolumeCollection TimeReceived TimeBlood Venous blood specimen / Bnvmros9304/19/2025 9:53 AM EDT04/19/2025 9:53 AM EDT Narrative [facility] - 2025 11:17 AM EDT FASTING:YES FASTING: YES Resulting Agency Comment Performing Organization Information ?Site ID: QPT ?Name: [facility] ?Address: [address] [place] [address], [address] [place] [phone] ?Director: Cezar Singh MD Authorizing ProviderResult TypeResult StatusKofi Bowers MDLAB BLOOD ORDERABLESFinal ResultPerforming OrganizationAddressCity/State/ZIP CodePhone Number [facility] * POCT Glycated hemoglobin, total (04/17/2025 11:24 AM EDT)ComponentValueRef RangeTest MethodAnalysis TimePerformed AtPathologist SignatureHemoglobin A1C 7.8Specimen (Source)Anatomical Location / LateralityCollection Method / Volume Collection TimeReceived JjadRnzwc47/03/2025 11:24 AM EDT Narrative Authorizing ProviderResult TypeResult Jorge Luis Bowers MDPOINT OF CARE TEST ENTER/EDIT ORDERABLESFinal Result from Last 3 Months Insurance Care Teams Team MemberRelationshipSpecialtyStart DateEnd Kofi Bowers MD [address] [facility] [address] [place] [address] PCP - GeneralInternal Medicine12/22/22
--- OUTSIDE RECORDS SUMMARY | 2025-06-24 08:50 | XMS_ITS | Encounter Summary ---
Author Organization [facility] Address [address] [place] [address] Care Team Providers Care Acid Tester Name Role Phone Kofi Bowers MD Primary Care Provider [phone] Encounter Details DateTypeDepartmentCare Team (Latest Contact Info)Dchtotgvjzf13/03/2025amboo flowsheet [facility] [facility] [address] [place] [address] [place] [address] Kofi Bowers MD [address] [facility] [address] [place], [place] [id number] Social History Tobacco UseTypesPacks/DayYears UsedDateSmoking Tobacco: FormerCigarettesQuit: 08/15/1999Smokeless Tobacco: NeverAlcohol UseStandard Drinks/WeekCommentsNot Currently0 (1 standard drink = 0.6 oz pure alcohol)Caffeine: 1-2 cups per day; none soda/popPHQ-2AnswerDate RecordedPatient Health Questionnaire-2 Score1 06/17/2025CommentsUnknownSex and Gender InformationValueDate RecordedSex Assigned at BirthNot on fileLegal JldGzdtns45/15/2023 6:38 PM EDTGender Identity Not on fileSexual OrientationNot on filedocumented as of this encounter Functional Status * Over the past 2 weeks, how often have you been bothered by any of the following problems?QuestionAnswerDate of AssessmentAuthorLittle interest or pleasure in doing thingsSeveral days06/17/2025 11:20 AM Fredrick CARNESeling down, depressed, or hopelessNot at all06/17/2025 11:20 AM ESTKRAUSS, MAREK Patient Health Questionnaire-2 Cycfe839/10/2024 11:20 AM MAREK CARNES documented as of this encounter Plan of Treatment DateTypeDepartmentCare Team (Latest Contact Info)Vurdvrpsprr05/30/2026 11:30 AM EDTOffice Visit [facility] [place] [facility] [address] [place] [address] Kofi Bowers MD [address] [place] [address] documented as of this encounter Visit Diagnoses Not on filedocumented in this encounter Additional Health Concerns AssessmentNoted TimePHQ-9 Depression Total Score: 308 10:00 AM EDT documented as of this encounter Care Teams Team MemberRelationshipSpecialtyStart DateEnd Date Kofi Bowers MD [address] [place] [address] PCP - GeneralInternal Medicine12/22/22documented as of this encounter
--- OUTSIDE RECORDS SUMMARY | 2025-06-24 08:50 | XMS_ITS | Encounter Summary ---
Author Organization [facility] Address [address] [place] [address] Care Team Providers Care Technical Specialist Name Role Phone Kofi Bowers MD Primary Care Provider [phone] Encounter Details DateTypeDepartmentCare Team (Latest Contact Info)Hckdavpqzow54/03/2025Travel Social History Tobacco UseTypesPacks/DayYears UsedDateSmoking Tobacco: FormerCigarettesQuit: 08/15/1999Smokeless Tobacco: NeverAlcohol UseStandard Drinks/WeekCommentsNot Currently0 (1 standard drink = 0.6 oz pure alcohol)Caffeine: 1-2 cups per day; none soda/popPHQ-2AnswerDate RecordedPatient Health Questionnaire-2 Score1 06/17/2025CommentsUnknownSex and Gender InformationValueDate RecordedSex Assigned at BirthNot on fileLegal WldQlalax75/15/2023 6:38 PM EDTGender Identity Not on fileSexual OrientationNot on filedocumented as of this encounter Functional Status * Over the past 2 weeks, how often have you been bothered by any of the following problems?QuestionAnswerDate of AssessmentAuthorLittle interest or pleasure in doing thingsSeveral days06/17/2025 11:20 AM Fredrick CARNESeling down, depressed, or hopelessNot at all06/17/2025 11:20 AM MAREK CARNES Patient Health Questionnaire-2 Pqbfy773 11:20 AM MAREK CARNES documented as of this encounter Plan of Treatment DateTypeDepartmentCare Team (Latest Contact Info)Tkmupryagvf89/30/2026 11:30 AM EDTOffice Visit [facility] [address] [place] [address] Kofi Bowers MD 112 [facility] [address] [place] [address] documented as of this encounter Visit Diagnoses Not on filedocumented in this encounter Additional Health Concerns AssessmentNoted TimePHQ-9 Depression Total Score: 10:00 AM EDT documented as of this encounter Care Teams Team MemberRelationshipSpecialtyStart DateEnd Date Kofi Bowers MD 112 [facility] [address] [place] [address] PCP - GeneralInternal Medicine12/22/22documented as of this encounter
--- OUTSIDE RECORDS SUMMARY | 2025-06-24 08:51 | XMS_ITS | CCD ---
Author Organization [facility] Care Team Providers Care Crew Director Name Role Phone Olamide Ching Unavailable MD [...] BETZAIDA Consulting Unavailable GARCIA ., DR SERENITY Barahnoa Attending Unavailable GARCIA ., DR SERENITY Barahona Admitting Unavailable BOWERS, DR GLVOER Primary Care Unavailable ZIMMER ., BETZAIDA Consulting [...] GARCIA ., DR SERENITY Barahona Consulting Unavailable UIR CARLSON Attending Unavailable VERNA, ANGELA Attending Unavailable VERNA, ANGELA Attending Unavailable OSCAR DEL TORO Attending Unavailable OSCAR DEL TORO Attending Unavailable MONI Bowers Primary Care Provider [phone] MD Abdullahi Acosta Attending Provider Abdullahi Acosta Attending Unavailable Abdullahi Acosta Admtony Unavailable Kofi Bowers Primary Care Unavailable Kofi Bowers MD Primary Care Provider KOFI BOWERS Primary Care Unavailable SHUBHAM GANN Attending Unavailable Francesco BUENO, Jenny Shafer Attending Unavailable Francesco BUENO, Jenny Shafer Attending Unavailable Giedraitis , Andrius Soni Attending Unavailable Giedraitis , Andrius Soni Attending Unavailable Giedraitis , Andrius Soni Attending Unavailable Giedraitis , Andrius Soni Attending Unavailable Giedraitis , Andrius Shafer Attending Unavailable SKYE GOODE Attending Unavailable KOFI BOWERS Attending Unavailable KOFI BOWERS Attending Unavailable KOFI BOWERS Attending Unavailable KOFI BOWERS Attending Unavailable KOFI BOWERS Attending Unavailable SKYE GOODE Attending Unavailable KOFI BOWERS Attending Unavailable Allergies Allergy ClassificationReported Allergen(s)Allergy TypeDate of OnsetReaction(s) Facility (3 sources)GemfibrozilDrug Allergymuscle [facility] [employer] Other (20 sources)Iodine; Translations: [IODINE]Drug Cdmbldz69-55-6424tthwtvdkrur, Shortness [facility]Reg[facility] (5 sources)levoFLOXacin; Translations: [Levaquin]Drug Fbworex67-36-9515 [facility]opathySelect [facility] (20 sources)levoFLOXacin; Translations: [LEVOFLOXACIN]Drug Vvtczsc04-78-[address] [facility] (1 source)Iodine and Iodide Containing ProducAllergy to pyhfttwwj35-94-6254 Unknown ReactionBarberton Citizens Hospital (2 sources)hydrALAZINEDrug Ervkton22-47-3067FfiSelect Medical Specialty [facility] Repository (1 source)IodineDrug Nlfgwzr46-75-0520TqzSelect Medical [facility]ty [facility] Repository (20 sources)pregabalin; Translations: [PREGABALIN]Drug Sntwrwi82-07-2981 [facility]inessUnFost[facility] Rep[facility] (1 source)SHELLFISH CONTAINING PRODUCTS; Translations: [SHELLFISH CONTAINING PRODUCTS]Propensity to adverse reactions to drug (disorder)22-75-6590GwjcwurxngRegency Hospital [place] Repository (3 sources)Iodinated Contrast Media; Translations: [Iodinated Contrast Media] Allergy to besurxmys50-93-1697Yuzcsyk ReactionBarberton Citizens Hospital (2 sources)GemfibrozilDrug Gsrqozi07-35-6778lfnogj atrophyBarberton Citizens Hospital Repository (1 source)IodineDrug Ceiptgk18-29-6391MvyigllxnBarberton Citizens Hospital Repository (20 sources)ShellfishAllergy to dwepserrc88-49-3408GmtcxnjzOULK Healthcare Work Phone: Medications Current Medications MedicationDrug Class(es)DatesSig (Normalized)Sig (Original)acarbose 100 mg oral tablet (20 sources)alpha-Glucosidase InhibitorStart: 71-25-7566gbex 1 tablet by mouth in the morningacarbose (Precose) 100 MG tablet Indications: Diabetes mellitus type 2 with neurological manifestations (HCC) TAKE 1 TABLET BY MOUTH IN THE MORNING AND 1 TABLET BEFORE BEDTIME 60 tablet 11 5ActiveStart: 87-32-8700mutw 1 tablet by mouth in the morningacarbose (Precose) 100 MG tablet Indications: 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 60 tablet 10 01/18/2024 ActiveStart: 04-48-4964kjkp 1 tablet by mouth in the morningacarbose (Precose) 100 MG tablet Indications: 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 200 tablet 3 02/02/2023 ActiveStart: 85-02-7445glhn 1 tablet by mouth twice dailyAcarbose 100 [...] 25 mg oral tablet (2 sources)Tricyclic AntidepressantStart: 38-42-7332sios 1 tablet by mouth every twenty-four hoursAmitriptyline HCl 25 MG 1 tablet at bedtime Orally Once a day for 30 day(s) Jun, ActiveamLODIPine 10 mg oral tablet (20 sources)Dihydropyridine Calcium Channel BlockerStart: 56-47-2028bljn 1 tablet by mouth in the morningamLODIPine (Norvasc) 10 MG tablet Indications: Benign essential hypertension TAKE 1 TABLET BY MOUTHIN THE MORNING 100 tablet 3 07/23/2024 ActiveStart: 74-85-4256snhf 1 tablet by mouth in the morning [...] sources)Platelet Aggregation Inhibitor, Nonsteroidal Anti-inflammatory Drug Start: 06-31-9471dozfkhd 81 MG EC tablet 1 (one) time each day at the same time. 2018 ActiveBaby Aspirin Activebaclofen 10 mg oral tablet (20 sources)gamma-Aminobutyric Acid-ergic AgonistStart: 19-87-6232ncic 0.5-1 tablets by mouth three times daily as neededbaclofen (Lioresal) 10 MG tablet TAKE 1/2 (ONE-HALF) TO 1 (ONE) TABLET BY MOUTH THREE TIMES DAILY NEEDED 12/25/2024 Activebiotin 5 mg sublingual tablet (3 sources)Start: 08-45-5768xzsg 1 capsule under the tongue once dailyBiotin 5,000 mcg Tablet, Sublingual Active 1 CAP SUBLINGUAL Daily June 12, 2018 11:00pmBlood Glucose Monitoring Suppl (Blood Glucose Monitor System) w/Device kit (14 sources)Start: 92-17-2585Ftjdx Glucose Monitoring Suppl (Blood Glucose Monitor System) w/Device kit Indications: Type 2 diabetes mellitus with hyperglycemia, without long-term current use of insulin ([facility]) 1 each Daily 1 kit 03/12/2025 Activecalcium [...] (5 sources)alpha-Adrenergic Theodora, beta-Adrenergic BlockerStart: 02-20-2024 End: 67-84-3351vfwf 1 tablet by mouth at mealtimecarvedilol (Coreg) 25 MG tablet Indications: Benign essential hypertension (CMS/HCC) TAKE 1 TABLET BY MOUTH IN THE MORNING AND IN THE EVENING WITH MEALS 60 tablet 10 02/20/2024 04/09/2024 Discontinued (Other)Start: 50-32-9817pspu 1 tablet by mouth in the morning carvedilol (Coreg) 25 MG tablet Indications: Benign essential hypertension (CMS/HCC) Take 1 tablet (25 mg) by mouth in the morning and 1 tablet (25 mg) in the evening. Take with meals. 180 tablet 3 02/22/2023 Activecetirizine hydrochloride 10 mg oral tablet (13 sources)Histamine-1 Receptor Antagonist End: 38-36-9706ciytkijrcm (ZyrTEC) 10 MG tablet 1 (one) time each day at the same time. 08/28/2024 Discontinued (Other)cholecalciferol 1.25 mg oral tablet (20 sources)Vitamin Dcholecalciferol (Vitamin D-3) 1.25 MG (71700 UT) tablet Vitamin D3 5000IU Activecholecalciferol (Vitamin D-3) 1.25 MG (03919 UT) tablet Vitamin D3 5000IU 0 ActivecloNIDine hydrochloride 0.1 mg oral tablet (3 sources)Central alpha-2 Adrenergic AgonistStart: 52-89-0416hbrs 1 tablet by mouth twice dailyClonidine Hcl 0.1 mg tablet Active 1 TAB PO Twice daily June 12, 2018 11:00pmdapagliflozin 5 mg oral tablet (2 sources)Sodium-Glucose Cotransporter 2 InhibitorStart: 04-19-2025 End: 77-56-2533hykzynyjoickg (Farxiga) 5 MG Indications: Diabetes mellitus type 2 with neurological manifestations(HCC) , Type 2 diabetes mellitus with hyperglycemia, unspecified whether fci insulin use (HCC) Take 1 tablet (5 mg) by mouth Daily 100 tablet 3 04/23/2025 05/28/2026 Active0.5 ml dulaglutide 3 mg/ml auto-injector (3 sources)GLP-1 Receptor AgonistTrulicity 1.5 MG/0.5ML as directed Subcutaneous As Directed ActiveDULoxetine 60 mg delayed release oral capsule (6 sources)Serotonin and Norepinephrine Reuptake InhibitorStart: 06-13-2018 Duloxetine 60 mg capsule,delayed release(DR/EC) Active June 12, 2018 11:00pmStart: 19-41-4123Tfejspuwow Active June 12, 2018 11:00pm empagliflozin 10 mg oral tablet (8 sources)Sodium-Glucose Cotransporter 2 InhibitorStart: 04-26-2025 End: 98-71-1616ieba 1 tablet by mouth once dailyempagliflozin (Jardiance) 10 MG Indications: Diabetes mellitus type 2 with neurological manifestations (HCC) Take 1 tablet (10 mg) by mouth Daily 30 tablet 11 04/26/2025 04/26/2026 Active furosemide 40 mg oral tablet (20 sources)Loop DiureticStart: 77-41-8348ywee 1 tablet by mouth in the morning [...] mg oral tablet (5 sources)Arteriolar Vasodilator End: 83-19-3750vzizHEEEDYG (Apresoline) 50 MG tablet every 12 (twelve) hours. 04/09/2024 Discontinued (Other)hydroCHLOROthiazide 25 mg / losartan potassium 100 mg oral tablet (20 sources)Thiazide Diuretic, Angiotensin 2 Receptor BlockerStart: 02-14-2025 take 1 tablet by mouth once dailylosartan-hydroCHLOROthiazide (Hyzaar) 100-25 MG tablet Indications: Hypertension, unspecified type Take 1 tablet by mouth Daily 100 tablet 2 02/14/2025 ActiveStart: 56-84-9850xlgy 1 tablet by mouth once daily losartan-hydroCHLOROthiazide (Hyzaar) 100-25 MG tablet Indications: Hypertension, unspecified type Take 1 tablet by mouth Daily 100 tablet 2 03/05/2024 ActiveStart: 31-50-7579vagt 1 tablet by mouth once dailylosartan- hydroCHLOROthiazide (Hyzaar) 100-25 MG tablet Indications: Hypertension, unspecified type (CMS/HCC) Take 1 tablet by mouth 1 (one) time each day at the same time. 100 tablet 2 04/26/2023 Active3 ml insulin glargine 100 unt/ml pen injector (10 sources)Insulin AnalogStart: 57-72-4817Kkjdzf SoloStar 100 UNIT/ML pen Indications: Type 2 diabetes mellitus with hyperglycemia, with long-term current use of insulin ([facility]) INJECT 60 UNITS SUBCUTANEOUSLY (UNDER THE SKIN) IN THE MORNING 15mL 5 04/18/2025 Activeisopropyl alcohol 0.7 ml/ml medicated pad (14 sources)Start: 37-20-2231Lzpfpse Swabs (Alcohol Prep) 70 % pads Indications: Type 2 diabetes mellitus with hyperglycemia, without long-term current use of insulin ([facility]) 1 Pad Daily 100 each 3 03/12/2025 Activeliothyronine sodium 0.025 mg oral tablet (20 sources)l-TriiodothyronineStart: 04-26-2023 End: 84-91-8864cilj 0.5 tablet by mouth twice dailyliothyronine (Cytomel) 25 MCG tablet Indications: Hypothyroidism, unspecified type 0.5 tablet on anempty stomach Orally two times daily. D.A.W. as [employer] or [employer] ONLY for 90 days 200 tablet 3 05/01/2025 ActiveStart: 59-05-0737arsp 1 tablet by mouth once dailyLiothyronine 25 mcg tablet Active 0.5 TAB PO Daily June 12, 2018 11:00pmLiothyronine Sodium 25 MCG as directed Orally bid Activeloratadine 10 mg oral tablet (20 sources)Start: 34-40-7391whsy 1 tablet by mouth once daily in the morning Allergy Relief 10 MG tablet Indications: Allergy, initial encounter TAKE 1 TABLET BY MOUTH EVERY MORNING 30 tablet 11 03/20/2024 ActiveStart: 03-11-2023 End: 43-78-7916oyen 1 tablet by mouth in the morningloratadine (Claritin) 10 MG tablet Indications: Allergy, initial encounter Take 1 tablet (10 mg) bymouth in the morning. 30 tablet 11 03/11/2023 03/10/2024 ActiveStart: 14-19-9076kvff 1 tablet by mouth once dailyLoratadine 10 mg Capsule Active 1 TAB PO Daily June 12, 2018 11:00pmlosartan potassium 100 mg oral tablet (6 sources)Angiotensin 2 Receptor BlockerStart: 85-76-1317wxrp 1 tablet by mouth once dailyLosartan 100 mg tablet Active 1 TAB PO Daily June 12, 2018 11:00pmlovastatin 20 mg oral tablet (20 sources)HMG-CoA Reductase InhibitorStart: 33-11-8367vjab 1 tablet by mouth once dailylovastatin (Mevacor) 20 MG tablet Indications: 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HHS-HCC) TAKE 1 TABLET BY MOUTH ONCE DAILY 100 tablet 3 08/16/2024 ActiveStart: 95-29-2729smtg 1 tablet by mouth once dailylovastatin (Mevacor) 20 MG tablet Indications: Congenital renal artery anomaly TAKE 1 TABLET BY MOUTH ONCE DAILY 30 tablet 10 09/21/2023 Activemelatonin 5 mg oral capsule (6 sources)Start: 71-87-3335Mizvacgsc 5 mg Capsule Active June 12, 2018 11:00pmStart: 95-81-3469Juyckiwvb Active June 12, 2018 11:00pmMelatonin 5 MG Orally qhs ActivemetFORMIN hydrochloride 1000 mg oral tablet (20 sources)BiguanideStart: 40-77-1277zdum 1 tablet by mouth in the morning metFORMIN (Glucophage) 1000 MG tablet Indications: Diabetes mellitus type 2 with neurological manifestations (HCC) TAKE 1 TABLET BY MOUTH IN THE MORNING AND 1 TABLET IN THE EVENING. TAKE WITH MEALS 60 tablet 11 12/13/2024 ActiveStart: 18-87-7121ntyd 1 tablet by mouth in the morningmetFORMIN (Glucophage) 1000 MG tablet Indications: 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 TAKE WITH MEALS. 60 tablet 10 01/18/2024 Active methylPREDNISolone (4 sources)CorticosteroidStart: 06-06-2025 End: 43-18-7932lssecwXNRBDDKhoisr (Medrol Dospak) 4 MG tablets Indications: Acute myofascial strain of lumbar region, initial encounter Follow schedule on package instructions 21 tablet 06/06/2025 06/17/2025 Discontinued (Therapy completed)Start: 06-06-2025 End: 67-07-2887kvlciaSBXVOTGecnts (Medrol Dospak) 4 MG tablets Indications: Acute myofascial strain of lumbar region, initial encounter Follow schedule on package instructions 21 tablet 06/06/2025 06/13/2025 Aeitwf05 hr metoprolol succinate 50 mg extended release oral tablet (9 sources)beta-Adrenergic BlockerStart: 33-18-8997yibo 1 tablet by mouth twice dailyMetoprolol Succinate 50 mg tablet extended release 24 hr Active 1 TAB PO Twice daily June 12, 2018 11:00pmtake 2 tablets by mouth every twenty-four hoursToprol XL 50 MG 2 tablet Orally Once a day ActiveMetoprolol Succinate ActiveMultivitamin preparation (3 sources)Multivitamin Activenaproxen 500 mg oral tablet (7 sources)Nonsteroidal Anti-inflammatory DrugStart: 04-09-2024 End: 23-62-1725wnuo 1 tablet by mouth in the morningnaproxen (Naprosyn) 500 MG tablet Indications: Iliopsoas bursitis of right hip Take 1 tablet (500 mg) by mouth in the morning and 1 tablet (500 mg) in the evening. Take with meals. Do all this for 14days. 28 tablet 04/09/2024 04/23/2024 Active End: 46-39-9585xwyztdio (Naprosyn) 500 MG tablet every 12 (twelve) hours. 04/09/2024 Discontinued (Other)omeprazole 20 mg delayed release oral capsule (20 sources)Proton Pump InhibitorStart: 99-91-3667daeu 1 capsule by mouth in the morningomeprazole (PriLOSEC) [address] capsule Indications: Gastroesophageal reflux disease without esophagitis TAKE 1 CAPSULE BY MOUTH IN THE MORNING 30 capsule 11 12/13/2024 ActiveStart: 44-03-2383lcqj 1 capsule by mouth in the morningomeprazole (PriLOSEC) [address] capsule Indications: Gastroesophageal reflux disease without esophagitis TAKE 1 CAPSULE (20 MG) BY MOUTH IN THE MORNING. 30 capsule 10 01/18/2024 Activeondansetron 8 mg oral tablet (5 sources)Serotonin-3 Receptor AntagonistStart: 02-08-2025 End: 98-35-6148lmhe 1 tablet by mouth every eight hours as needed for nausea and vomiting and nausea and nauseaondansetron (Zofran) 8 MG tablet Indications: Nausea Take 1 tablet (8 mg) by mouth every 8 (eight) hours if needed for nausea or vomiting for up to 7 days 20 tablet 02/08/2025 02/15/2025 Active microencapsulated potassium chloride 20 meq extended release oral tablet (20 sources)Start: 28-82-2600Kmgdhhjpd Chloride 20 mEq tablet,ER particles/crystals Active 1 PACKET PO Daily June 12, 2018 11:00pmStart: 94-07-1897Dyudzenvy Chloride Active 1 PACKET PO Daily June 12, 2018 11:00pm pramipexole dihydrochloride 0.75 mg oral tablet (3 sources)Nonergot Dopamine AgonistStart: 88-48-2340uznq 1 tablet by mouth in the morningpramipexole (Mirapex) 0.75 MG tablet Indications: Chronic pain syndrome Take 1 tablet (0.75 mg) by mouth in the morning. 30 tablet 2 07/20/2023 Active End: 05-65-3707spwerzlmakm (Mirapex) 0.5 MG tablet 1 (one) time each day at the same time 01/14/2025 Discontinued (Therapy completed)pregabalin 100 mg oral capsule (6 sources)Start: 40-54-6516kiul 1 tablet by mouth twice dailyPregabalin 100 mg capsule Active 1 TAB PO Twice daily June 12, 2018 11:00pmQUEtiapine 50 mg oral tablet (20 sources)Atypical AntipsychoticStart: 33-35-7255igxz 1 tablet by mouth once dailyQUEtiapine (SEROquel) 50 MG tablet Indications: Insomnia, unspecified type TAKE 1 TABLET BY MOUTH ONCE DAILY 30 tablet 10 09/17/2024 ActiveStart: 81-74-2420dwqi 1 tablet by mouth once dailyQUEtiapine (SEROquel) 50 MG tablet Indications: Insomnia, unspecified type TAKE 1 TABLET BY MOUTH ONCE DAILY 30 tablet 10 10/20/2023 ActiverOPINIRole 2 mg oral tablet (12 sources)Nonergot Dopamine AgonistStart: 01-18-2024 End: 50-28-9556gncm 0.5 tablet by mouth at bedtimerOPINIRole (Requip) 2 MG tablet Indications: Restless Leg Syndrome Take 0.5 tablets (1 mg) by mouthat bedtime 30 tablet 2 01/18/2024 08/28/2024 Discontinued (Other)tiZANidine 4 mg oral tablet (9 sources)Central alpha-2 Adrenergic AgonistStart: 06-06-2025 End: 12-69-7642lkcx 1 tablet by mouth every eight hours for muscle spasms tiZANidine (Zanaflex) 4 MG tablet Indications: Acute myofascial strain of lumbar region, subsequentencounter Take 1 tablet (4 mg) by mouth every 8 (eight) hours if needed for muscle spasms 30 wditnj0606/17/2025 06/27/2025 ActivetraMADol hydrochloride 50 mg oral tablet (20 sources)Opioid AgonistStart: 01-04-2025 End: 87-23-6850zcqz 1 tablet by mouth every six hours for paintraMADol (Ultram) 50 MG tablet Indications: Failed back syndrome Take 1 tablet (50 mg) by mouth every 6 (six) hours if needed for severe pain 120 tablet 1 05/01/2025 06/30/2025 ActiveStart: 03-05-2024 End: 09-67-9280vvra 1 tablet by mouth every six hours for paintraMADol (Ultram) 50 MG tablet Indications: Failed back syndrome Take 1 tablet (50 mg) by mouth every 6 (six) hours if needed for severe pain 120 tablet 12/03/2024 01/02/2025 ActiveStart: 10-83-3971fxgt 1 tablet by mouth every six hours for paintraMADol (Ultram) 50 MG tablet Indications: Failed back syndrome Take 1 tablet (50 mg) by mouth every 6 (six) hours if needed for severe pain 120 tablet 0 09/29/2023 ActiveStart: 06-13-2018 End: 26-48-7562gulc 1 tablet by mouth every six hours [...] MG/0.5ML solution auto-injector (13 sources)Start: 08-23-2024 End: 12-62-9755Qpvirxybu 4.5 MG/0.5ML solution auto-injector Indications: Diabetes mellitus type 2 with neurological manifestations (HCC) INJECT CONTENTS OF 1 SYRINGE SUBCUTANEOUSLY ONCE WEEKLY 2 mL 08/23/2024 02/08/2025 DiscontinuedStart: 26-68-8875Texrogjmi 4.5 MG/0.5ML solution auto-injector Indications: Diabetes mellitus type 2 with neurological manifestations (HCC) INJECT CONTENTS OF 1 SYRINGE SUBCUTANEOUSLY ONCE WEEKLY 2 mL 08/23/2024 Ac tiveStart: 85-31-4067Zoyitfnku 4.5 MG/0.5ML solution auto-injector Indications: 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) INJECT CONTENTS OF 1 SYRINGE SUBCUTANEOUSLY ONCE WEEKLY 2 mL 08/23/2024 Active Trulicity 4.5 MG/0.5ML solution pen-injector (10 sources)Start: 66-93-3261Gvwkiuwyh 4.5 MG/0.5ML solution pen-injector Indications: Diabetes mellitus [...] tablet (13 sources)gamma-Aminobutyric Acid-ergic AgonistStart: 11-18-2023 End: 89-79-7158fiqzxqrp CR (Ambien CR) 6.25 MG ER tablet Indications: Primary insomnia Take 1 tablet (6.25 mg) by mouth as needed at bedtime for sleep Do not crush, chew, or split. 30 tablet 2 11/18/2023 08/28/2024Discontinued (Other) Start: 57-70-7824vdmqojwy CR (Ambien CR) 6.25 MG ER tablet Indications: Primary insomnia Take 1 tablet (6.25 mg) by mouth as needed at bedtime for sleep Do not crush, chew, or split. 30 tablet 2 08/04/2023 Activezonisamide 50 mg oral capsule (14 sources)Anti-epileptic AgentStart: 99-11-7846tdug 1 capsule by mouth at bedtimezonisamide (Zonegran) 50 MG capsule Take 50 mg by mouth at bedtime 02/13/2025 Active Completed/Discontinued Medications MedicationDrug Class(es)DatesSig (Normalized)Sig (Original)cefTRIAXone (4 sources)Cephalosporin AntibacterialStart: 92-15-1440Gvqvlyzp 500 mg Feb, 1000 mgStart: 70-97-4090Vaqwffmp 500 mg Jul, 1 grmeszopiclone 3 mg oral tablet (2 sources) End: 75-00-1872kpvyidxslft (Lunesta) 3 MG tablet 1 (one) time each day at the same time 01/14/2025 Discontinued (Other)3 ml insulin detemir 100 unt/ml pen injector (20 sources)Insulin AnalogStart: 04-17-2025 End: 09-09-6184pbldovy detemir (Levemir FlexTouch) 100 UNIT/ML pen Indications: Diabetes mellitus type 2 with neurological manifestations (HCC) Inject 60 Units under the skin in the morning. 3 mL 11 04/17/2025 04/17/2025 Discontinued (Availability)Start: 71-33-2790Easpfbm Detemir U-100 100 unit/mL (3 mL) insulin pen Active 0 .ROUTE .COMPLEX June 12, 2018 11:00pm as directed2 ml orphenadrine citrate 30 mg/ml injection (20 sources)Muscle RelaxantStart: 01-14-2025 End: 39-35-6383lhzjrxescjth (Norflex) injection 60 mgStart: 01-14-2025 End: 55-36-2095geszsy 60 mg by intramuscular injection once60 mg, Intramuscular, Once, On Tue01/14/25 at 1330, For 1 doseStart: 10-27-2023 End: 86-88-3120jqvn 1 tablet by mouth twice daily as [...] sources)Patient encounter status; Translations: [Other specified counseling] 13-06-0296MfrvirfjXrnfyyl and circulatory congenital anomalies (20 sources)Congenital anomaly of renal blood vessel; 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]Onset: hronic Diabetes mellitus with complications (20 sources)Disorder of nervous system due to type 2 diabetes mellitus; Translations: [Type 2 diabetes mellituswith other diabetic neurological complication]Onset: 804266-38-7973BtunfnjWvucctmr mellitus without complication (20 sources)Type 2 diabetes mellitus without complications; Translations: [Diabetes mellitus]Onset: 700684-39-1566KyzjeawFbwtqayxr of lipid metabolism (20 sources)Hyperlipidemia, unspecified; Translations: [Mixed hyperlipidemia] Onset: 066827-61-0011SffwcjoAimhsewigj disorders (20 sources)Gastro-esophageal reflux disease without esophagitis; Translations: [Gastroesophageal reflux disease]Onset: 979644-17-3987OhplelxNgxvqwwnd hypertension (20 sources)Essential (primary) hypertension; Translations: [Benign essential hypertension]Onset: 89-74-2931BxkwyojJfpsuutkwbwbk and screening for infectious disease (2 sources)Vaccination needed; Translations: [Encounter for immunization] 64-05-7710TzbhtqvlFfmhlbf and fatigue (20 sources)Fatigue; Translations: [Chronic fatigue, unspecified]Onset: 802109-85-0980QhhzewwLgqxkyskdm disorders (20 sources)Other primary ovarian failure; Translations: [Decreased estrogen level]Onset: 82-54-6757BiuwkudWvknnnchemcor mental health disorders (6 sources)Chronic insomnia; Translations: [Psychophysiologic insomnia]Chronic Nausea and vomiting (6 sources)Nausea; Translations: [Nausea]55-70-0590JskyplsuUlfpf diseases of veins and lymphatics (20 sources)Venous hypertension of lower limb; Translations: [Chronic venous hypertension (idiopathic) without complications of unspecified lower extremity] Onset: 275626-77-7226CogdhsuErpyr eye disorders (20 sources)Bilateral vitreous floaters; Translations: [Other vitreous opacities, bilateral]Onset: 620725-86-9418VgwfcasWzcto hereditary and degenerative nervous system conditions (1 source)Restless legs syndrome; Translations: [RESTLESS LEGS SYNDROME]Onset: 45-51-4757IrnjoziKsvfi hereditary and degenerative nervous system conditions (20 sources)Restless legs; Translations: [Restless legs syndrome]Onset: 631833-71-5973PqlavhmLhmks lower respiratory disease (3 sources)Disorder of lung; Translations: [Other disorders of lung]Episodic Other nervous system disorders (1 source)Polyneuropathy, unspecified; Translations: [POLYNEUROPATHY UNSPECIFIED]Onset: 35-76-7406IsjgovzMapxi nervous system disorders (20 sources)Chronic pain syndrome; Translations: [Chronic pain syndrome]Onset: 882766-94-1903CrddzjfJfyfd nervous system disorders (20 sources)Difficulty walking; Translations: [Difficulty in walking, not elsewhere classified]Onset: 748936-37-8235NxqmqqgXdjub nervous system disorders (20 sources)Polyneuropathy; Translations: [Polyneuropathy, unspecified]Onset: 445636-07-7572IgzuurvGbrdu nutritional; endocrine; and metabolic disorders (6 sources)Obese class II; Translations: [Body mass index (BMI) 35.0-35.9, adult]ChronicOther nutritional; endocrine; and metabolic disorders (1 source)Body mass index (BMI) 35.0-35.9, adultOnset: 07-02-2021 Resolved: 74-13-6350BqxybwfOprtw nutritional; endocrine; and metabolic disorders (20 sources)Body mass index 30+ - obesity; Translations: [Obesity, unspecified] Onset: 365489-89-2278UurdtkvOoqau nutritional; endocrine; and metabolic disorders (20 sources)Lipoprotein deficiency disorder; Translations: [Lipoprotein deficiency]Onset: 287440-65-6929KcbqpctOtsrc nutritional; endocrine; and metabolic disorders (20 sources)Obesity caused by energy imbalance; Translations: [Morbid (severe) obesity due to excess calories]Onset: 617960-91-2690OvnltueNdsyh upper respiratory disease (20 sources)Allergic rhinitis; Translations: [Other allergic rhinitis]Onset: 287364-66-1076CmjiixtSgpjmfggdv and visceral atherosclerosis (20 sources)Peripheral vascular disease; Translations: [Peripheral vascular disease, unspecified]Onset: 303979-06-8154DmwtblcHiqvqjhf codes; unclassified (20 sources)Obstructive sleep apnea syndrome; Translations: [Obstructive sleep apnea (adult) (pediatric)]Onset: 551004-61-0401ZqucfqoJyogscfe codes; unclassified (6 sources)Obstructive sleep apnea (adult) (pediatric); Translations: [Obstructive sleep apnea (adult)(pediatric)]Onset: 07-02-2021 Resolved: 39-20-7334TxogirmPlpgptzh codes; unclassified (1 source)Obstructive sleep apnea (adult)(pediatric); Translations: [Obstructive sleep apnea (adult) (pediatric)]Onset: 96-88-0188ArzsaioBqctixjr codes; unclassified (20 sources)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 airway pressure ventilation; Translations: [Dependence on other enabling machines and devices]Onset: 101626-46-0360VpmnulaOebyaeue codes; unclassified (20 sources)Initial insomnia; Translations: [Other insomnia]Onset: 12-14-2022 25-29-8652XhbifpcBsyuvluqrtm; intervertebral disc disorders; other back problems (20 sources)Spondylosis without myelopathy or radiculopathy, lumbar region; Translations: [Other intervertebraldisc degeneration, lumbar region]Onset: 06-38-9991HuoangzAireiktfuhw; intervertebral disc disorders; other back problems (17 sources)Spinal stenosis, lumbar region without neurogenic claudication; Translations: [Radiculopathy, lumbar region]Onset: 31-00-4942WksrnjajXanjzvh and strains (4 sources)Lower back injury; Translations: [Strain of muscle, fascia and tendon of lower back, initial encounter]92-79-7577MzexcggfYteedndmwkc injury; contusion (6 sources)Contusion of lower back and pelvis, initial encounter; Translations: [Injury of conjunctiva and corneal abrasion without foreign body, right eye, initial encounter]Onset: 49-00-0796MizzyblrTpemjed disorders (2 sources)Hypothyroidism; Translations: [Hypothyroidism, unspecified]07-02-2024 ChronicUnclassified (3 sources)LOW BACK PAIN, UNSPECIFIED; Translations: [LOW BACK PAIN, UNSPECIFIED]Onset: 28-72-5479Lkthynnadgzc (2 sources)Medication Problem; Translations: [Medication Problem]Onset: 73-35-1098Pkfvesvhplew (1 source)Eye PainOnset: 97-00-9346Jmshcmpjwdoa (1 source)right eye issueOnset: 03-18-2024 Past or Other Problems Problem ClassificationProblemDateDocumented DateEpisodic/ChronicBlindness and vision defects (20 sources)Diplopia; Translations: [Diplopia]Onset: EpisodicConditions associated with dizziness or vertigo (20 sources)Vertigo; Translations: [Dizziness and giddiness]Onset: 10-27-2023 43-92-4254GrvocwfxW Codes: Fall (1 source)Unspecified fall, initial encounter; Translations: [UNSPECIFIED FALL INITIAL ENCOUNTER]Onset: 12-44-2880WukhgzgyJbzmoqdw of upper limb (20 sources)Fracture of radial neck; Translations: [Displaced fracture of neck of unspecified radius, initial encounter for closed fracture]Onset: 03-11-2023 39-34-4094OlpegccbLkwx disorders (20 sources)Mood disordersOnset: Other aftercare (1 source)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; Translations: [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]Onset: 72-40-4473NdlycjkfSczmo aftercare (1 source)nursing home (current) use of aspirin; Translations: [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]Onset: 20-97-9665JuialmpcEneia aftercare (1 source)director of acquisitions (current) use of oral hypoglycemic drugs; Translations: [CNC MILL SET UP OPERATOR USE ORAL HYPOGLYCEMIC DX]Onset: 70-17-3932YdrqzblxShrld aftercare (1 source)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; Translations: [OTH 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 SET UP OPERATOR CURRENT DRUG THERAPY]Onset: 60-18-9393YkxynhaxVdtwb aftercare (20 sources)Long-term current use of insulin; Translations: [nursing home (current) use of insulin]Onset: 099463-62-1637YnjyupiiKopph and unspecified benign neoplasm (20 sources)Adenomatous polyp of colon ; Translations: [Benign neoplasm of ascending colon]Onset: 804537-55-7952AfdldmzbGdmcy and unspecified benign neoplasm (20 sources)History of polyp of colon; Translations: [Personal history of colonic polyps]Onset: 659107-71-7328YgmhcfebQwhie and unspecified benign neoplasm (20 sources)Benign neoplasm of colon; Translations: [Benign neoplasm of colon, unspecified]Onset: 271272-78-5192PjpngshfOimfn bone disease and musculoskeletal deformities (20 sources)Osteopenia; Translations: [Other specified disorders of bone density and structure, unspecified site]Onset: 234543-15-5185YjmpmnyaUkrim connective tissue disease (1 source)Arthrodesis status; Translations: [ARTHRODESIS STATUS]Onset: 44-40-8045OstmzgqlHuvuv connective tissue disease (20 sources)Trigger thumb of left hand; Translations: [Trigger thumb, left thumb]Onset: 050332-78-8152UdrxrfmxYgvws connective tissue disease (20 sources)Acquired trigger finger; Translations: [Trigger finger, unspecified finger]Onset: 110989-40-1074BtemmpsaZpovb connective tissue disease (2 sources)Iliopsoas bursitis of right hip; Translations: [Other bursitis of hip, right hip]58-97-2999MxdcnwfhCzrzt diseases of veins and lymphatics (20 sources)Peripheral venous insufficiency; Translations: [Venous insufficiency (chronic) (peripheral)]Onset: 582311-01-0888LtgyedstFwwdn eye disorders (20 sources)Lower eyelid ectropion; Translations: [Unspecified ectropion of unspecified eye, unspecified eyelid]Onset: 442058-94-5895HvoqstxtLirqw eye disorders (20 sources)Epiphora; Translations: [Unspecified epiphora, unspecified side] Onset: 869010-14-5631VkxywmzlLytmh injuries and conditions due to external causes (20 sources)History of fall; Translations: [History of falling]Onset: 10-02-2015 36-57-6782EeuwcaisDhofu non-traumatic joint disorders (20 sources)Pain in elbow; Translations: [Pain in unspecified elbow]Onset: 349173-20-3043HhtdelbpXgmyj nutritional; endocrine; and metabolic disorders (20 sources)Cholesterol level - finding; Translations: [Lipoprotein deficiency] Onset: 12-14-2022 Resolved: 459365-47-2085HwgkvvbPzojotce codes; unclassified (1 source)Insomnia, unspecified; Translations: [INSOMNIA UNSPECIFIED]Onset: 44-10-7454XeiuclyxLcwhkluh codes; unclassified (2 sources)Localized edema; Translations: [Localized edema]Onset: 09-28-2022 EpisodicResidual codes; unclassified (20 sources)Insomnia; Translations: [Insomnia, unspecified]Onset: 06-10-2015 14-75-6960KlpwykfcEfrqrrul codes; unclassified (20 sources)Family history of malignant neoplasm of gastrointestinal tract; Translations: [Family history of malignant neoplasm of digestive organs]Onset: 075037-90-9998MolzwjwzHygtiilxn and history of mental health and substance abuse codes (20 sources)Ex-smoker; Translations: [Personal history of nicotine dependence] Onset: 804587-53-8495KbgatlgmJffic and face fractures (20 sources)Closed fracture of orbital floor (blow-out); Translations: [Fracture of orbital floor, unspecified side, initial encounter for closed fracture] Onset: 041352-61-6557CafochraOmwhqgr disorders (20 sources)Sick-euthyroid syndrome; Translations: [Sick-euthyroid syndrome] Onset: 800770-43-6561BvlnueocYdtwjdkhxrgi (1 source)LOW BACK PAIN, UNSPECIFIED; Translations: [LOW BACK PAIN, UNSPECIFIED] Onset: 10-30-2021 Results Test NameValueInterpretationReference RangeFacilityALBUMIN, RANDOM URINE W/CREATININEon 16-03-1467VUHCNQO, URINE0.3 mg/dLNormalSee Note:[facility] Comment on above:Result Comment: Reference Range: Reference Range Not establishedPerformed By: #### 3324, 08679, 7600 #### [facility] [place] [address] Piece Worker: Cezar Singh MDALBUMIN/CREATININE RATIO, RANDOM URINE8 mg/g [...] within a diagnostic category.Performed By: #### 6517, 39783, 7600 #### [facility] [place] [address] Piece Worker: Cezar Singh MDCreatinine (U) [Mass/Vol]40 mg/bMDxgbha62-055 [facility] DiagnosticsComment on above:Performed By: #### 6517, 89241, 7600 #### [facility] [place] [address] Piece Worker: Cezar RAZOOMPREHENSIVE METABOLIC PANELon 2025 Albumin [Mass/Vol]4.2 g/dLNormal3.6-5.1Quest DiagnosticsComment on above: Performed By: #### 6517, 99682, 7600 #### [facility] [place] [address] Piece Worker: Cezar Singh MDAlbumin/Globulin [Mass ratio]1.6 {ratio}Normal 1.0-2.5Quest DiagnosticsComment on above:Performed By: #### 6517, 89229, 7600 #### [facility] [place] [address] Piece Worker: Cezar Singh MDALP [Catalytic activity/Vol]85 U/SOhciev63-270 [facility] DiagnosticsComment on above:Performed By: #### 6517, 63487, 7600 #### [facility] [place] [address] Piece Worker: Cezar Singh MDALT [Catalytic activity/Vol]12 U/LNormal6-29 [facility] DiagnosticsComment on above:Performed By: #### 6517, 33797, 7600 #### [facility] of [address], [address] [place] [address] Piece Worker: Cezar Singh MDAST [Catalytic activity/Vol]13 U/OAyneiz05-49 [facility] DiagnosticsComment on above:Performed By: #### 6517, 69802, 7600 #### [facility] of [address], [address] [place] [address] Piece Worker: Cezar Singh MDBilirubin [Mass/Vol]0.4 mg/dLNormal0.2-1.2 [facility] DiagnosticsComment on above:Performed By: #### 6517, 41031, 7600 #### [facility] of [address], [address] [place] [address] Piece Worker: Cezar Singh MDBUN/CREATININE RATIOSEE NOTE:Normal6-22Quest DiagnosticsComment on above:Result Comment: Not Reported: BUN and Creatinine are within reference range.Performed By: #### 6517, 19370, 7600 #### [facility] of [address], [address] [place] [address] Piece Worker: Cezar Singh MDCalcium [Mass/Vol]9.4 mg/dLNormal8.6-10.4Quest DiagnosticsComment on above:Performed By: #### 6517, 04526, 7600 #### [facility] of [address], [address] [place] [address] Piece Worker: Cezar Singh MDChloride [Moles/Vol]102 mmol/BUlwjtd80-956 [facility] DiagnosticsComment on above:Performed By: #### 6517, 45281, 7600 #### [facility] of [address], [address] [place] [address] Piece Worker: Cezar Singh MDCO2 [Moles/Vol]28 mmol/QHzssnz66-50Ukdiw DiagnosticsComment on above:Performed By: #### 6517, 27621, 0 #### [facility] [place] [address] Piece Worker: Cezar Singh MDCreatinine [Mass/Vol]0.90 mg/dLNormal0.60-0.95 [facility] DiagnosticsComment on above:Performed By: #### 6517, 12415, 0 #### [facility] [place] [address] Piece Worker: Cezar Singh MDGFR/1.73 sq M.predicted among non-blacks MDRD (S/P/Bld) [Vol rate/Area]65 mL/min/{1.73_m2}Normal> OR = 60[facility] Comment on above:Performed By: #### 6517, , 0 #### [facility] [place] [address] Piece Worker: Cezar Singh MDGlobulin (S) [Mass/Vol]2.7 g/dLNormal1.9-3.7 [facility] DiagnosticsComment on above:Performed By: #### 6517, 67003, 0 #### [facility] [place] [address] Piece Worker: Cezar Singh MDGlucose [Mass/Vol]129 mg/vQBeis42-77Oxmeg DiagnosticsComment on above:Result Comment: Fasting reference interval For someone without known diabetes, a glucose value >125 mg/dL indicates that they may have diabetes and this should be confirmed with a follow-up test.Performed By: #### 6517, 88119, 7600 #### [facility] [place] [address] Piece Worker: Cezar Singh MDPotassium [Moles/Vol]4.0 mmol/LNormal3.5-5.3 [facility] DiagnosticsComment on above:Performed By: #### 6517, 13803, 7600 #### [facility] of [address], [address] [place] [address] Piece Worker: Cezar Singh MDProtein [Mass/Vol]6.9 g/dLNormal6.1-8.1Quest DiagnosticsComment on above:Performed By: #### 6517, 13381, 7600 #### [facility] of [address], [address] [place] [address] Piece Worker: Cezar Singh MDSodium [Moles/Vol]142 mmol/JPjtmrw904-701Txdkx DiagnosticsComment on above:Performed By: #### 6517, 27804, 7600 #### [facility] of [address], [address] [place] [address] Piece Worker: Cezar Singh MDUrea nitrogen [Mass/Vol]17 mg/dLNormal7-25 [facility] DiagnosticsComment on above:Performed By: #### 6517, 28600, 0 #### [facility] of [address], [address] [place] [address] Piece Worker: Cezar Singh MDLIPID PANEL, [facility] 34-27-5306Bvlekzxtbrc [Mass/Vol]154 mg/dLNormal<200Quest DiagnosticsComment on above:Order Comment: FASTING:YES FASTING: YESPerformed By: #### 6517, 11761, 0 #### [facility] of [place] [address] Piece Worker: Cezar Singh MDCholesterol in HDL [Mass/Vol]55 mg/dLNormal> OR = 50Quest DiagnosticsComment on above:Order Comment: FASTING:YES FASTING: YESPerformed By: #### 6517, 98529, 7600 #### [facility] of [place] [address] Piece Worker: Cezar Singh MDCholesterol in LDL [Mass/Vol]73 mg/dLNormal [...] of LDL-C. Tien TUTTLE et al. ARON. 2013;310(54): 6807-0734 (http://education.gogamingo.Optimenga777/faq/QJE121)Performed By: #### 6517, 21760, 7600 #### [facility] [address], [address] [place] [address] Piece Worker: Cezar RAZOholesterol.total/Cholesterol in HDL [Mass ratio]2.8 {ratio}Normal<5.0Quest DiagnosticsComment on above:Order Comment: FASTING:YES FASTING: YESPerformed By: #### 6517, 69598, 7600 #### [facility] [address], [address] [place] [address] Piece Worker: Cezar COTTER HDL NTQCHIWMBMC12 mg/dL (calc)Normal<130 [facility] DiagnosticsComment on above:Order Comment: FASTING:YES FASTING: YESResult Comment: For patients with diabetes plus 1 major ASCVD risk factor, treating to a non-HDL-C goal of <100 mg/dL (LDL-C of <70 mg/dL) is considered a therapeutic option.Performed By: #### 6517, 30653, 7600 #### [facility] [address], [address] [place] [address] Piece Worker: Cezar Singh MDTriglyceride [Mass/Vol]191 mg/dLHigh<150Quest DiagnosticsComment on above:Order Comment: FASTING:YES FASTING: YESPerformed By: #### 6517, 19892, 7600 #### [facility] [address], [address] [place] [address] Piece Worker: Cezar Singh MDLaboratory - Chemistry and Chemistry - challengeon 50-73-9037Weffjqi [Mass/Vol]4.2 g/dL3.6 - 5.1 g/dLNOCenterpoint Medical Center Albumin/Globulin [Mass ratio]1.6 {ratio}[facility] HealthcareALP [Catalytic activity/Vol]85 U/L37 - 153 U/LNOMS HealthcareALT [Catalytic activity/Vol]12 U/L 6 - 29 U/LNOMS HealthcareAST [Catalytic activity/Vol]13 U/L10 - 35 U/LNOMS HealthcareBilirubin [Mass/Vol]0.4 mg/dL0.2 - 1.2 mg/dLNODC HealthcareCalcium [Mass/Vol]9.4 mg/dL8.6 - 10.4 mg/dLWestern [facility] Medical CenterChloride [Moles/Vol]102 mmol/L 98 - 110 mmol/LNOMS HealthcareCO2 [Moles/Vol]28 mmol/L20 - 32 mmol/LNOMS HealthcareCreatinine [Mass/Vol]0.9 mg/dL0.60 - 0.95 mg/dLWestern Missouri Medical CenterGFR/1.73 sq M.predicted among non-blacks MDRD (S/P/Bld) [Vol rate/Area]65 mL/min/{1.73_m2}> OR = 60 mL/min/1.72b7KDIMWestern Missouri Medical CenterGlobulin (S) [Mass/Vol]2.7 g/dLNOCenterpoint Medical CenterGlucose [Mass/Vol]129 mg/hVLhnn25 - 99 mg/dLWestern [facility] Center Comment on above: Fasting reference interval For someone without known diabetes, a glucose value >125 mg/dL indicates that they may have diabetes and this should be confirmed with a follow-up test. Potassium [Moles/Vol]4 mmol/L3.5 - 5.3 mmol/LNOMS HealthcareProtein [Mass/Vol] 6.9 g/dL6.1 - 8.1 g/dLNOCenterpoint Medical CenterSodium [Moles/Vol]142 mmol/L135 - 146 mmol/LNOMS HealthcareUrea nitrogen [Mass/Vol]17 mg/dL7 - 25 mg/dLNOCenterpoint Medical Center Urea nitrogen/Creatinine [Mass ratio]SEE NOTE:[facility] HealthcareComment on above: Not Reported: BUN and Creatinine are within reference range. Lipid 1996 panelon 83-76-6746Irshrbsrvjg [Mass/Vol]154 mg/dLNINF - 200 mg/dLNOCenterpoint Medical CenterCholesterol in HDL [Mass/Vol]55 mg/dL> OR = 50[facility] Cholesterol in LDL [Mass/Vol]73 mg/dLmg/dL (calc)[facility] HealthcareComment on above:Reference range: <100 Desirable range <100 mg/dL for primary prevention; <70 mg/dL for patients with CHD or diabetic patients with > or = 2 CHD risk factors. LDL-C is now calculated using the Jefe calculation, which is a validated novel method providing better accuracy than the Friedewald equation in the estimation of LDL-C. Tien TUTTLE et al. ARON. 2013;310(19): 9294-7427 (http://education.FreedomPay/faq/FHA065) Cholesterol non HDL [Mass/Vol]99 mg/dLNITennessee Hospitals at CurlieComment on above:For patients with diabetes plus 1 major ASCVD risk factor, treating to a non-HDL-C goal of <100 mg/dL (LDL-C of <70 mg/dL) is considered a therapeutic option. Cholesterol.total/Cholesterol in HDL [Mass ratio]2.8 {ratio}[facility] Triglyceride [Mass/Vol]191 mg/dLHighNINF - 150 mg/dL[facility] Microalbumin/Creatinine ratio panel (U)on 16-12-9927Xpkmadc DL <= 20 mg/L (U) [Mass/Vol]0.3 mg/dLSee Note:[facility] HealthcareComment on above:Reference Range: Reference Range Not established Albumin/Creatinine (U) [Mass ratio]8NINFWestern Missouri Medical CenterComment on above: The ADA defines abnormalities in [...] category. Creatinine (U) [Mass/Vol]40 mg/dL20 - 275 mg/dLWestern Missouri Medical CenterNo Panel Informationon 92-81-9570Hpojqtezhxcbhx and review of laboratory resultsAbnormal [facility] CenterFASTING:YES FASTING: YESQUESTPerforming Organization Information Site ID: QPT Name: [facility] Address: [address] [place] [address], [address] [place] [id number] Director: Cezar OSUNAMer[facility] HealthcareLaboratory - Hematology and Cell countson 76-61-0329HfO3e (Bld) [Mass fraction]7.8 %NOM HealthcareNo Panel Informationon 76-53-5713MLCN HealthcareXR Thoracic spine 2 Viewson 72-11-0634Z[address] [address] XRay Report Signed Patient: KONRAD GUZMAN MR#: [id number] : 1945 Acct:[id number] Age/Sex: 79 / F ADM Date: 01/24/25 Loc: [facility] Attending Dr: Rylee Kenyon NP Ordering Physician: Rylee Kenyon NP Date of Service: 01/24/25 Procedure(s): XR thoracic spine 2V Accession Number(s): [id number] cc: KOFI BOWERS ; Rylee Kenyon NP [place] [id number] Patient Name: KONRAD GUZMAN MRN: TBH:[id number] date: 1945 Sex: F Assigned Patient Location: [facility] Current Patient Location: [facility] Accession/Order Number: [id number] Exam Date: 01/24/2025 12:17 Report Date: 01/24/2025 [...] Ramírez M.D. 01/24/2025 12:21 PM Dictation Location: [place] [address] Electronically authenticated by: [id number] Y Date: 01/24/2025 12:21 Dictated By: Skye Ramírez M.D. 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: [employer]:TBHRadiology, Radiologist, - 01/24/2025 [place] [address] XRay Report Signed Patient: KONRAD GUZMAN MR#: [id number] : 1945 Acct:[id number] Age/Sex: 79 / F ADM Date: 01/24/25 Loc: [place] Attending Dr: Rylee Kenyon NP Ordering Physician: Rylee Kenyon NP Date of Service: 01/24/25 Procedure(s): XR thoracic spine 2V Accession Number(s): [id number] cc: KOFI BOWERS ; Rylee Kenyon NP [place] [address] Patient Name: KONRAD GUZMAN MRN: [facility]:[id number] date: 1945 Sex: F Assigned Patient Location: [facility] Current Patient Location: [facility] Accession/Order Number: [id number] Exam Date: 01/24/2025 12:17 Report Date: 01/24/2025 [...] Ramírez M.D. 01/24/2025 12:21 PM Dictation Location: [place] [address] Electronically authenticated by: [id number] Y Date: 01/24/2025 12:21 Dictated By: Skye Ramírez M.D. 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: [employer]: [facility] CenterRadiology Study observation (narrative)[facility] HealthcareXR Thoracic spine 2 ViewsOrdered By: Radiologist Radiology on 76-79-7463ZTCUWestern Missouri Medical Center Work Phone: Laboratory - Hematology and Cell countson 01-14-2025 HbA1c (Bld) [Mass fraction]6.4 %[facility] CenterNo Panel Informationon 01-14-2025 Interpretation and review of laboratory resultsAbECU Health Beaufort HospitalLaboratory - Hematology and Cell countson 47-39-9265FmM5q (Bld) [Mass fraction]6.4 %[facility] CenterNo Panel Informationon 56-20-4616Axfeoobvenlttx and review of laboratory resultsAbECU Health Beaufort HospitalALL BASIC METABOLIC PANELon 28-39-3191Eeqlo gap [Moles/Vol]11.6 mmol/LNOMS Healthcare Calcium [Mass/Vol]9 mg/dL8.5 - 10.1 mg/dLUINTAH BASIN MEDICAL [facility]ENTER HealthcareChloride [Moles/Vol]106 mmol/L98 - 107 mmol/LNOMS HealthcareCO2 [Moles/Vol]30.2 mmol/L21.0 - 32.0 mmol/L [facility] CenterCreatinine [Mass/Vol]0.99 mg/dL0.55 - 1.02 mg/dLWestern [facility] Medical Center GFR/1.73 sq M.predicted CKD-EPI (S/P/Bld) [Vol rate/Area]>60>=60 mL/min/1.73m 2 [facility] HealthcareGlucose [Mass/Vol]132 mg/wBEqvj61 - 106 mg/dLWestern [facility] Medical Center Interpretation and review of laboratory resultsAbInsight Surgical HospitalPotassium [Moles/Vol]3.8 mmol/L3.5 - 5.1 mmol/LNOMS HealthcareSodium [Moles/Vol]144 mmol/L 136 - 145 mmol/LNOMS HealthcareTBH EGFR-NON AF VRDBWSBS56Njw>=60 mL/min/1.73m 2 NOMS HealthcareUrea nitrogen [Mass/Vol]15 mg/dL7.0 - 18.0 mg/dLNOMS Healthcare Urea nitrogen/Creatinine [Mass ratio]15.2 mg/mgNOMS HealthcareCLINISYNCNOMS HealthcareECG 12-LEADon 36-06-0137Jxz[place] [address] Electrocardiograph Report Signed Patient: KONRAD GUZMAN MR#: [id number] : 1945 Acct:[id number] Age/Sex: 79 / F ADM Date: 07/18/24 Loc: PST Attending Dr: Jenny Maya M.D. Ordering Physician: Jenny Maya M.D. 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 Signed By: 07/18/24 2256 DD/ 1038 TD/TT: [employer]:TBHRadiology, Radiologist, - 07/18/2024 [place] [address] Electrocardiograph Report Signed Patient: KONRAD GUZMAN MR#: [id number] : 1945 Acct:[id number] Age/Sex: 79 / F ADM Date: 07/18/24 Loc: PST Attending Dr: Jenny Maya M.D. Ordering Physician: Jenny Maya M.D. 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 Signed By: 07/18/24 2256 DD/ 1038 TD/TT: [employer]: [facility]OMBro[facility]lyn HealthcareRadiology Study observation (narrative)NOM HealthcareECG 12-LEAD Ordered By: Radiologist Radiology on 43-03-9219[facility] Work Phone: ct Lumbar spine WO contraston 11-47-5663Khy[place] [address] CT Scan Report Signed Patient: KONRAD GUZMAN MR#: [id number] : 1945 Acct:[id number] Age/Sex: 79 / F ADM Date: 05/24/24 Loc: CT Attending Dr: Jenny Maya M.D. Ordering Physician: Jenny Maya M.D. Date of Service: 05/24/24 Procedure(s): CT lumbar spine wo con Accession Number(s): [id number] cc: KOFI BOWERS [place] [id number] Patient Name: KONRAD GUZMAN MRN: [id number] date: 1945 Sex: F Assigned Patient Location: CT Current Patient Location: Accession/Order Number: [id number] Exam Date: 05/24/2024 13:23 Report Date: 05/25/2024 09:00 At the request of: JENNY MAYA Procedure: CT lumbar spine wo con [...] no mechanical failure Electronically authenticated by: PATITO BLANCHARD Date: 05/25/2024 09:00 Dictated By: Patito Blanchard M.D. Signed By: 05/25/24902 DD/ 9 TD/TT: [employer]:TBHRadiology, Radiologist, - 05/25/2024 [place] [address] CT Scan Report Signed Patient: KONRAD GUZMAN MR#: [id number] : 1945 Acct:[id number] Age/Sex: 79 / F ADM Date: 05/24/24 Loc: CT Attending Dr: Jenny Maya M.D. Ordering Physician: Jenny Maya M.D. Date of Service: 05/24/24 Procedure(s): CT lumbar spine wo con Accession Number(s): [id number] cc: KOFI BOWERS [place] [id number] Patient Name: KONRAD GUZMAN MRN: [id number]:[id number] date: 1945 Sex: F Assigned Patient Location: CT Current Patient Location: Accession/Order Number: [id number] Exam Date: 05/24/2024 13:23 Report Date: 05/25/2024 09:00 At the request of: JENNY MAYA Procedure: CT lumbar spine wo con [...] no mechanical failure Electronically authenticated by: PATITO BLANCHARD Date: 05/25/2024 09:00 Dictated By: Patito Blanchard M.D. Signed By: 05/25/24902 DD/ 9 TD/TT: [employer]: CHANTAL [facility] Thoracic spine WO contraston 97-84[place]3748[place]zw[place] [address] CT Scan Report Signed Patient: KONRAD GUZMAN MR#: [id number] : 1945 Acct:[id number] Age/Sex: 79 / F ADM Date: 05/24/24 Loc: CT Attending Dr: Jenny Maya M.D. Ordering Physician: Jenny Maya M.D. Date of Service: 05/24/24 Procedure(s): CT thoracic spine wo con Accession Number(s): [id number] cc: KOFI BOWERS [place] [id number] Patient Name: KONRAD GUZMAN MRN: [id number] date: 1945 Sex: F Assigned Patient Location: CT Current Patient Location: Accession/Order Number: [id number] Exam Date: 05/24/2024 13:23 Report Date: 05/25/2024 09:00 At the request of: JENNY MAYA Procedure: CT thoracic spine wo con [...] no mechanical failure Electronically authenticated by: PATITO BLANCHARD Date: 05/25/2024 09:00 Dictated By: Patito Blanchard M.D. Signed By: 05/25/24902 DD/ 9 TD/TT: [employer]:TBHRadiology, Radiologist, - 05/28/2024 [place] [address] CT Scan Report Signed Patient: KONRAD GUZMAN MR#: [id number] : 1945 Acct:[id number] Age/Sex: 79 / F ADM Date: 05/24/24 Loc: CT Attending Dr: Jenny Maya M.D. Ordering Physician: Jenny Maya M.D. Date of Service: 05/24/24 Procedure(s): CT thoracic spine wo con Accession Number(s): [id number] cc: KOFI BOWERS [place] [id number] Patient Name: KONRAD GUZMAN MRN: [facility]:[id number] date: 1945 Sex: F Assigned Patient Location: CT Current Patient Location: Accession/Order Number: [id number] Exam Date: 05/24/2024 13:23 Report Date: 05/25/2024 09:00 At the request of: JENNY MAYA Procedure: CT thoracic spine wo con [...] no mechanical failure Electronically authenticated by: PATITO BLANCHARD Date: 05/25/2024 09:00 Dictated By: Patito Blanchard M.D. Signed By: 05/25/24902 DD/ 9 TD/TT: [employer]: [employer]ANT[employer] HealthcareNo Panel InformationOrdered By: Radiologist Radiology on 66-45-5032[facility] Work Phone: no Panel Informationon 32-10-6359Qtzdjyjgn Study observation (narrative)[facility] HealthcareNo Panel InformationOrdered By: Radiologist Radiology on 58-99-4474WJCJWestern [facility] Medical Center Work Phone: No Panel Informationon 35-25-4166Ojiksarvq Study observation (narrative)NOMS HealthcareXR LUMBAR SPINE MIN 4Von 71-80-1403[place]dj[place] [address] XRay Report Signed Patient: KONRAD GUZMAN MR#: [id number] : 1945 Acct:[id number] Age/Sex: 79 / F ADM Date: 05/10/24 Loc: RAD Attending Dr: Rylee Kenyon NP Ordering Physician: Rylee Kenyon NP Date of Service: 05/10/24 Procedure(s): XR lumbar spine min 4V Accession Number(s): [id number] cc: KOFI BOWERS ; Rylee Kenyon NP [place] [address] Patient Name: KONRAD GUZMAN MRN: [id number] date: 1945 Sex: F Assigned Patient Location: [facility] Current Patient Location: [facility] Accession/Order Number: [id number] Exam Date: 05/10/2024 13:28 Report Date: 05/11/2024 10:18 At the request of: RYLEE KENYON Procedure: XR lumbar spine min 4V EXAMINATION: [...] thoracic lumbar spine. Electronically authenticated by: JOE MUKHERJEE Date: 05/11/2024 10:18 Dictated By: Joe Mukherjee M.D. Signed By: 05/11/24 1021 DD/ 1018 TD/TT: [employer]:LOUISEadiology, Radiologist, - 05/11/2024 [place] [address] XRay Report Signed Patient: KONRAD GUZMAN MR#: [id number] : 1945 Acct:[id number] Age/Sex: 79 / F ADM Date: 05/10/24 Loc: [facility] Attending Dr: Rylee Kenyon NP Ordering Physician: Rylee Kenyon NP Date of Service: 05/10/24 Procedure(s): XR lumbar spine min 4V Accession Number(s): [id number] cc: KOFI BOWERS ; Rylee Kenyon NP [place] [address] Patient Name: KONRAD GUZMAN MRN: TBH:[id number] date: 1945 Sex: F Assigned Patient Location: [facility] Current Patient Location: [facility] Accession/Order Number: [id number] Exam Date: 05/10/2024 13:28 Report Date: 05/11/2024 10:18 At the request of: RYLEE KENYON Procedure: XR lumbar spine min 4V EXAMINATION: [...] thoracic lumbar spine. Electronically authenticated by: JOE MUKHERJEE Date: 05/11/2024 10:18 Dictated By: Joe Mukherjee M.D. Signed By: 05/11/24 1021 DD/ 1018 TD/TT: [employer]: CHANTAL [facility] Thoracic spine 2 Viewson 84-97-7494ZjxCharl[place], [place] [address] XRay Report Signed Patient: KONRAD GUZMAN MR#: [id number] : 1945 Acct:[id number] Age/Sex: 79 / F ADM Date: 05/10/24 Loc: [facility] Attending Dr: Rylee Kenyon NP Ordering Physician: Rylee Kenyon NP Date of Service: 05/10/24 Procedure(s): XR thoracic spine 2V Accession Number(s): [id number] cc: KOFI BOWERS ; Rylee Kenyon NP [place] [address] Patient Name: KONRAD GUZMAN MRN: [id number] date: 1945 Sex: F Assigned Patient Location: [facility] Current Patient Location: [facility] Accession/Order Number: [id number] Exam Date: 05/10/2024 13:28 Report Date: 05/11/2024 10:18 At the request of: RYLEE KENYON Procedure: XR thoracic spine 2V EXAMINATION: XR [...] thoracic lumbar spine. Electronically authenticated by: JOE MUKHERJEE Date: 05/11/2024 10:18 Dictated By: Joe Mukherjee M.D. Signed By: 05/11/24 1021 DD/ 1018 TD/TT: [employer]:TBHRadiology, Radiologist, MD - 05/11/2024 [place] [address] XRay Report Signed Patient: KONRAD GUZMAN MR#: [id number] : 1945 Acct:[id number] Age/Sex: 79 / F ADM Date: 05/10/24 Loc: RAD Attending Dr: Rylee Kenyon NP Ordering Physician: Rylee Kenyon NP Date of Service: 05/10/24 Procedure(s): XR thoracic spine 2V Accession Number(s): [id number] cc: KOFI BOWERS ; Rylee Kenyon NP [place] [address] Patient Name: KONRAD GUZMAN MRN: [id number]:[id number] date: 1945 Sex: F Assigned Patient Location: [facility] Current Patient Location: [facility] Accession/Order Number: [id number] Exam Date: 05/10/2024 13:28 Report Date: 05/11/2024 10:18 At the request of: RYLEE KENYON Procedure: XR thoracic spine 2V EXAMINATION: XR [...] thoracic lumbar spine. Electronically authenticated by: JOE MUKHERJEE Date: 05/11/2024 10:18 Dictated By: Joe Mukherjee M.D. Signed By: 05/11/24 1021 DD/ 1018 TD/TT: [employer]: CHANTAL Saavedra retinopathy [Minimum Data Set]on 05-03-2024 Interpretation and review of laboratory resultsAbInsight Surgical Hospital Microscopic observation Cyto stain Nom (Cvx)abnUNC Health Rex Radiology Study observation (narrative)[facility] Medical CenterHbA1c (Bld) [Mass fraction]on 75-63-7772HOSVWestern Missouri Medical CenterLaboratory - Hematology and Cell countson 93-66-8186ZzM9d (Bld) [Mass fraction]7.0 %[facility]36on Follow-up in 3 months as planned. ThanksNormalUniKindred Hospital LimaOffice Visiton 43-40-9187Ajbnsy-up [id number] Konrad Guzman 1945 Provider Department Center 01/03/2023 URI STERN PAULA [facility] Family History Problem Relation Age of Onset Diabetes Father Heart disease Father Coronary artery disease Father Coronary artery disease Brother Family Status - Relation Status Age at Father Brother Level of Service:84886 [place] OFFICE/OUTPATIENT ESTABLISHED LOW MDM 20-29 MIN Reason for Visit and Comments: Medication Problem [65]NormalUnFostoria City HospitalOffice Visiton 86-57-9222Tbkxng-up [id number] Konrad Guzman 1945 Provider Department Center 09/28/2022 OSCAR TOWNSEND PAULA Dip[facility] Family History Problem Relation Age of Onset Diabetes Father Heart disease Father Coronary artery disease Father Coronary artery disease Brother Family Status - Relation Status Age at Father Brother Level of Service:69774 [place] OFFICE/OUTPATIENT ESTABLISHED LOW MDM 20-29 MIN Reason for Visit and Comments: Hypertension [499482]NormalUnFostoria City HospitalPROF CHEM 8 (BAS METB)on 67-20-5187Ahmzc gap [Moles/Vol]11.6 mmol/LNormalThe [facility] Comment on above:Performed By: #### BMP #### [facility] [address] [address] [address] Rose ChadwickCalcium [Mass/Vol]9.4 mg/dLNormal8.5-10.1The [facility] Comment on above:Performed By: #### BMP #### [facility] [address] [address] [address] Rose ChadwickChloride [Moles/Vol]101 mmol/GOobmwi95-783Rck [facility] Comment on above:Performed By: #### BMP #### [facility] [address] [address] [address] Rose ChadwickCO2 [Moles/Vol]32.6 mmol/LCritically high21.0-32.0The [facility] CenterComment on above:Performed By: #### BMP #### [facility] [address] [place] [address] Dr. Rose ChadwickCreatinine [Mass/Vol]0.86 mg/dLNormal0.55-1.02The [facility] CenterComment on above:Performed By: #### BMP #### [facility] [address] [address] [address] Rose RamirezGFR-AF PAPUA NEW GUINEAN>60Normal>=60The [facility] CenterComment on above:Performed By: #### BMP #### [facility] [address] [place] [address] Dr. Rose RamirezGFR-NON AF PAPUA [place] GU[place]AN>60Normal>=60The [facility] CenterComment on above:Performed By: #### BMP #### [facility] [address] [address] [address] Rose ChadwickGlucose [Mass/Vol]108 mg/dLCritically urau18-769Dlj [facility] CenterComment on above:Performed By: #### BMP #### [facility] [address] [address] [address] Rose ChadwickPotassium [Moles/Vol]4.2 mmol/LNormal3.5-5.1The [facility] Comment on above:Performed By: #### BMP #### [facility] [address] [address] [address] Rose ChadwickSodium [Moles/Vol]141 mmol/PPxorga920-682Hly [facility] Comment on above:Performed By: #### BMP #### [facility] [address] [address] [address] Rose Alaniz nitrogen [Mass/Vol]15.0 mg/dLNormal7.0-18.0[facility] Cleveland-FairhillComment on above:Performed By: #### BMP #### [facility] [address] [address] [address] Rose ChadwickUrea nitrogen/Creatinine [Mass ratio]17.4 mg/mgNormalThe [facility] CenterComment on above:Performed By: #### BMP #### [facility] [address] [address] [address] Rose Chadwick37on 486506-Fhsnwq an arm BP monitor, Omron brand is preferred -Check blood pressure at least once daily 2-3 hours after taking medications - Stop taking Losartan -Start taking Losartan-hydrochlorothiazide -Check labs in 1 weekNormalUniversGreene Memorial HospitalOffice Visiton 58-37-5277Upxihe-up [id number] Konrad Guzman 1945 F Date Provider Department Center 08/31/2022 526[address]-MLGCLCEKUOSCAR DEL TORO [facility] Family History Problem Relation Age of Onset Diabetes Father Heart disease Father Coronary artery disease Father Coronary artery disease Brother Family Status - Relation Status Age at Father Brother Level of Service:24588 [place] OFFICE/OUTPATIENT ESTABLISHED LOW MDM 20-29 MIN Reason for Visit and Comments: Hypertension [954159]NormalUnFostoria City HospitalPROF CHEM 8 (BAS METB)on 94-74-6639Ifpwk gap [Moles/Vol]11.9 mmol/LNormalSelect Medical Specialty [facility] Comment on above:Performed By: #### BMP #### [facility] [address] [address] [address] Rose ChadwickCalcium [Mass/Vol]9.0 mg/dLNormal8.5-10.1[facility] Comment on above:Performed By: #### BMP #### [facility] [address] [address] [address] Rose ChadwickChloride [Moles/Vol]103 mmol/HPkbhoj44-515Jqr [facility] Comment on above:Performed By: #### BMP #### [facility] [address] [place] [address] Dr. Rose ChadwickCO2 [Moles/Vol]30.3 mmol/BXsqyrm36.0-32.0The [facility] Comment on above:Performed By: #### BMP #### [facility] [address] [place] [address] Dr. Rose ChadwickCreatinine [Mass/Vol]0.84 mg/dLNormal0.55-1.02The [facility] CenterComment on above:Performed By: #### BMP #### [facility] [address] [place] [address] Dr. Rose ChangEGFR-AF PAPUA NEW GUINEAN>60Normal>=60The [facility] CenterComment on above:Performed By: #### BMP #### [facility] [address] [place] [address] Dr. Rose RamirezGFR-NON AF PAPUA [place] GU[place]AN>60Normal>=60The [facility] CenterComment on above:Performed By: #### BMP #### [facility] [address] [place] [address] Dr. Rose ChadwickGlucose [Mass/Vol]119 mg/dLCritically gqat66-620Mxa [facility] CenterComment on above:Performed By: #### BMP #### [facility] [address] [place] [address] Dr. Rose ChadwickPotassium [Moles/Vol]4.2 mmol/LNormal3.5-5.1The [facility] Comment on above:Performed By: #### BMP #### [facility] [address] [address] [address] Rose ChadwickSodium [Moles/Vol]141 mmol/GKueimt339-386Kps [facility] Comment on above:Performed By: #### BMP #### [facility] [address] [place] [address] Dr. Rose ChadwickUrea nitrogen [Mass/Vol]13.0 mg/dLNormal7.0-18.0[facility]-FairhillComment on above:Performed By: #### BMP #### [facility] [address] [address] [address] Rose ChadwickUrea nitrogen/Creatinine [Mass ratio]15.5 mg/mgNormalThAdena Regional Medical CenterComment on above:Performed By: #### BMP #### [facility] [address] [address] [address] Rose ChadwickFollow-Upon 49-62-6240Nqwvws-[id number] Konrad Guzman Enrike 1945 F Date Provider Department Center 06/01/2022 ANGELA CAMERON [facility] Family History Problem Relation Age of Onset Diabetes Father Heart disease Father Coronary artery disease Father Coronary artery disease Brother Family Status - Relation Status Age at Father Brother Level of Service:89519 [place] OFFICE/OUTPATIENT ESTABLISHED LOW MDM 20-29 MIN Reason for Visit and Comments: Hypertension [632163]NormalUnFostoria City HospitalPROF CHEM 8 (BAS METB)on 05-61-1453Sjuts gap [Moles/Vol]11.1 mmol/LNormalSelect Medical Special[facility] Comment on above:Performed By: #### BMP #### [facility] [address] [place] [address] Dr. Rose ChadwickCalcium [Mass/Vol]9.0 mg/dLNormal8.5-10.1[facility] Comment on above:Performed By: #### BMP #### [facility] [address] [address] [address] Rose ChadwickChloride [Moles/Vol]103 mmol/NXsxsec86-928LyfSelect Medical Specialty Hospital - [facility] Comment on above:Performed By: #### BMP #### [facility] [address] [address] [address] Rose ChadwickCO2 [Moles/Vol]29.6 mmol/JOdgazu19.0-32.0[facility] Comment on above:Performed By: #### BMP #### [facility] [address] [place] [address] Dr. Rose ChadwickCreatinine [Mass/Vol]1.22 mg/dLCritically high0.55-1.02The [facility] CenterComment on above:Performed By: #### BMP #### [facility] [address] [address] [address] Rose RamirezGFR-AF OGBULIYR63 mL/min/1.84y8Mkpgaqacwh low>=60The [facility] CenterComment on above:Performed By: #### BMP #### [facility] [address] [address] [address] Rose RamirezGFR-NON AF OFXJOLAU15 mL/min/1.20k8Otegzdnqer low>=60The [facility] CenterComment on above:Performed By: #### BMP #### [facility] [address] [place] [address] Dr. Rose ChadwickGlucose [Mass/Vol]112 mg/dLCritically ifpr61-317Byr [facility] CenterComment on above:Performed By: #### BMP #### [facility] [address] [place] [address] Dr. Rose ChadwickPotassium [Moles/Vol]4.7 mmol/LNormal3.5-5.1The [facility] Comment on above:Performed By: #### BMP #### [facility] [address] [place] [address] Dr. Rose ChadwickSodium [Moles/Vol]139 mmol/OOwaljt523-544Uvq [facility] Comment on above:Performed By: #### BMP #### [facility] [address] [place] [address] Dr. Rose ChadwickUrea nitrogen [Mass/Vol]23.0 mg/dLCritically high7.0-18.0The [facility] CenterComment on above:Performed By: #### BMP #### [facility] [address] [place] [address] Dr. Rose Alaniz nitrogen/Creatinine [Mass ratio]18.9 mg/mgNormalThe [facility] CenterComment on above:Performed By: #### BMP #### [facility] [address] [place] [address] Dr. Rose Payton 96-60-917223Qdsvnr labs reviewed- Serum CR elevated 1.42, BUN [...] changes on voice mail message. Angela Gillespie FINANCIAL AGENT Division of Cardiology, [facility]- [phone] Pager- [phone] Email- [email or web address] earlyNormalUniKindred Hospital Lima Documentationon [id number] Konard Guzman 1945 F Date Provider Department Center 05/10/2022 120-ANGELA GILLESPIE Family History Problem Relation Age of Onset [...] function and med changes on voice mail message.NormalUnFostoria City HospitalOrders Onlyon 89-62-5524Ocymbe [id number] Konrad Guzman 1945 F Date Provider Department Center 05/10/2022 CA AMANDA Family History Problem Relation Age of Onset Diabetes Father Heart disease Father Coronary artery disease Father Coronary artery disease Brother Family Status - Relation Status Age at Father BrotherNoalUniKindred Hospital LimaPROF CHEM 8 (BAS METB)on 37-87-0814Gntlu gap [Moles/Vol]13.4 mmol/LNormalThe [facility] CenterComment on above:Performed By: #### BMP ####[facility] [address] [place], [place] [address]Dr.Yilan ChangCalcium [Mass/Vol]9.1 mg/dLNormal 8.5-10.1The [facility] CenterComment on above:Performed By: #### BMP ####[facility] [address] [place], [place] [address]Dr. Yilan ChangChloride [Moles/Vol]103 mmol/JXycctv02-231Jqt [facility] Comment on above:Performed By: #### BMP ####[facility] [address] [place], [place] [address]Dr.Yilan ChangCO2 [Moles/Vol]28.3 mmol/L Wczxan22.0-32.0The [facility] CenterComment on above:Performed By: #### BMP ####[facility] [address] [place], [place] [address]Dr. Yilan ChangCreatinine [Mass/Vol]1.42 mg/dLCritically high0.55-1.02The [facility] CenterComment on above:Performed By: #### BMP ####[facility] [address] [place], [place] [address]Dr.Yilan ChangEGFR-AF LKYZQYJR93 mL/min/1.61n4Iiqcljkoxv low>=60The [facility] CenterComment on above: Performed By: #### BMP ####[facility] [address] [place], [place] [address]Dr.Yilan ChangEGFR-NON AF EOMYYXXL58 mL/min/1.73m2 Critically low>=60The [facility] CenterComment on above:Performed By: #### BMP ####[facility] [address] [place], [place] [address]Dr. Yilan ChangGlucose [Mass/Vol]125 mg/dLCritically igws29-107Cjn [facility] Comment on above:Performed By: #### BMP ####[facility] [address] [place], [place] [address]Dr.Yilan ChangPotassium [Moles/Vol]5.7 mmol/LCritically high3.5-5.1[facility] Cleveland-FairhillComment on above:Performed By: #### BMP ####[facility] [address] [address]Dr.Rose ChangSodium [Moles/Vol]139 mmol/BOmrvmf657-356Rud [facility] CenterComment on above:Performed By: #### BMP ####[facility] [address] [place] [address]Dr.Rose ChangUrea nitrogen [Mass/Vol]28.0 mg/dLCritically high7.0-18.0The [facility] CenterComment on above:Performed By: #### BMP ####[facility] [address] [place] [address]Dr.Rose ChangUrea nitrogen/Creatinine [Mass ratio] 19.7 mg/mgNormalThe [facility] CenterComment on above:Performed By: #### BMP ####[facility] [address] [place] [address]Dr. Rose ChadwickOffice Visiton 84-14-5965Zfaphf-up [id number] Konrad Guzman 1945 Provider Department Center 04/28/2022 ANGELA CAMERON PAULA Rebolledo Family History Problem Relation Age of Onset Diabetes Father Heart disease Father Coronary artery disease Father Coronary artery disease Brother Family Status - Relation Status Age at Father Brother Level of Service:41775 [place] OFFICE/OUTPATIENT ESTABLISHED MOD MDM 30-39 MIN Reason for Visit and Comments: Hypertension [841528] - Patient here for 3 mo follow up hypertension. Denies chest pain and SOB.Bluffton HospitalAbstracton [id number] Konrad Guzman 1945 Provider Department Center 04/16/2022 CA AMANDA PAULA Rebol[place] Family History Problem Relation Age of Onset Diabetes Father Heart disease Father Coronary artery disease Father Coronary artery disease Brother Family Status - Relation Status Age at Father BrotherNormalUniKindred Hospital LimaPOINT OF CARE GLUCOSEon 33-98-6186Fgmnisr [Mass/Vol]120 mg/dLCritically mkla73-056FclSelect Medical Specialty Hospital - [facility] Comment on above:Performed By: #### POCGLUC #### [facility] [address] [address] [address] Rose ChadwickCT PELVIS WO CONon 69-79-9342DT PELVIS WO CONEXAMINATION: CT PELVIS WO CON [...] Electronically authenticated by: JOE MUKHERJEE Date: 2022-01-06 12:14[facility] WestXR DEXA BONE DENSITYon 65-30-7677EE DEXA BONE DENSITY EXAMINATION: XR DEXA BONE [...] Electronically authenticated by: JOE MUKHERJEE Date: 2022-01-04 11:51[facility] WestCT LSJEANETTE ROYAL CONon 30-36-6980WT [facility] CONEXAMINATION: CT JUSTIN ROYAL CON, 11/30/2021 12:53 PM EDT HISTORY: Lumbosacral [...] Electronically authenticated by: JOE MUKHERJEE Date: 2021-11-30 16:48[facility] WestPROF CHEM 8 (BAS METB)on 56-34-7609Uczwz gap [Moles/Vol]13.3 mmol/LNormalThe [facility] CenterComment on above:Performed By: #### BMP ####[facility] [address] [place], [place] [address]Dr. Yilan ChangCalcium [Mass/Vol]8.8 mg/dLNormal8.5-10.1The [facility] CenterComment on above:Performed By: #### BMP ####[facility] [address] [place], [place] [address]Dr.Yilan ChangChloride [Moles/Vol]101 mmol/LNormal 98-107The [facility] CenterComment on above:Performed By: #### BMP ####[facility] [address] [place], [place] [address]Dr.Yilan ChangCO2 [Moles/Vol]29.5 mmol/QNyvpge57.0-30.0The [facility] CenterComment on above: Performed By: #### BMP ####[facility] [address] [place], [place] [address]Dr.Yilan ChangCreatinine [Mass/Vol]0.85 mg/dLNormal 0.52-1.04The [facility] CenterComment on above:Performed By: #### BMP ####[facility] [address] [place], [place] [address]Dr. Yilan ChangEGFR-AF PAPUA NEW GUINEAN>60Normal>=60The [facility] CenterComment on above: Performed By: #### BMP ####[facility] Aukz[address]bxvn[address] [place], [place] [address]Dr.Yilan ChangEGFR-NON AF PAPUA [place]>60Normal>=60The [facility] CenterComment on above:Performed By: #### BMP ####[facility] O[address] [place], [place] [address]Dr.Yilan ChangGlucose [Mass/Vol]116 mg/dLCritically pcqf14-360Vnt [facility] CenterComment on above: Performed By: #### BMP ####[facility] [address] [place], [place] [address]Dr.Yilan ChangPotassium [Moles/Vol]4.8 mmol/LNormal 3.4-5.0[facility]-FairhillComment on above:Performed By: #### BMP ####[facility] [address] [place] [address]Dr.Rose Chadwick Sodium [Moles/Vol]139 mmol/ERnopck098-042Gyn [facility] CenterComment on above: Performed By: #### BMP ####[facility] Ay[address] [place], [place] [address]Dr.Rose ChadwickUrea nitrogen [Mass/Vol]15.0 mg/dLNormal 7.0-18.0The [facility] CenterComment on above:Performed By: #### BMP ####[facility] [address] [place], [place] [address]Dr. Rose ChadwickUrea nitrogen/Creatinine [Mass ratio]17.6 mg/mgNoWhite HospitalComment on above:Performed By: #### BMP ####[facility] L[address] [place], [place] [address]Dr.Rose ChadwickXR LSPINE MIN 4 VIEWSon 09-91-1002SD LSPINE MIN 4 VIEWSEXAMINATION: XR LSPINE MIN [...] significant at L2-L3 Electronically authenticated by: PATITO BLANCHARD Date: 2021-10-30 15:27[facility] Vital Signs Date TimeVital SignValuePerforming LycauaddiIvyzjfnd10-39-4364 11:32-0500Body fhasgx462.4 cmKofi Bowers MD Work Phone: [facility] CenterNylsxmzwjk40-99-3456 11:32-0500Body mass index (BMI) [Ratio]37.89 kg/a7WevssfKofi Bowers MD Work Phone: [facility] CenterZycbvltyqb21-87-5109 11:32-0500Body nooncy79 kg Kofi Bowers MD Work Phone: [facility] CenterEtjzglfbfs17-59-4740 11:32-0500Diastolic blood uwlvyarl82 mm[Hg]Kofi Bowers MD Work Phone: [facility] CenterJouhivgcna35-99-5005 11:32-0500Heart rate92 /min Kofi Bowers MD Work Phone: [facility] CenterKaudapfhov67-66-8565 11:32-0500Respiratory rate16 /minDcollin Bowers MD Work Phone: [facility] CenterWtjdqnyqyh25-83-4249 11:32-0531IjA5% (BldA) [Mass fraction]98 %Kofi Bowers MD Work Phone: [facility] CenterEjsqwcuufg78-32-7124 11:32-0500Systolic blood jdpvaaaf238 mm[Hg]Kofi Bowers MD Work Phone: [phone] CenterYlzvjwzyas95-41-3843 08:53-0400Body akxzvk129.4 cmKofi Bowers MD Work Phone: [phone] CenterZqmxlphjkq32-10-1807 08:53-0400Body mass index (BMI) [Ratio]37.11 kg/w3MzsqiqKofi Bowers MD Work Phone: [phone] CenterFgmhaqzhzn43-59-7680 08:53-0400Body .18 kgKofi Bowers MD Work Phone: [phone] CenterRhiqojbjgu48-35-8397 08:53-0400Diastolic blood wvfetvhl38 mm[Hg]Kofi Bowers MD Work Phone: [phone] CenterBmyjrpfign58-63-0254 08:53-0400Heart rate78 /min Kofi Bowers MD Work Phone: [phone] CenterSpsidparyd05-74-6400 08:53-8964HeP7% (BldA) [Mass fraction]96 %Kofi Bowers MD Work Phone: [phone] [facility] CenterNrexfcmkri05-86-9408 08:53-0400Systolic blood plotfazi952 mm[Hg]Kofi Bowers MD Work Phone: [facility] CenterSuyyiqjtbe52-15-1273 10:53-0400Body odkhzk311.4 cmKofi Bowers MD Work Phone: [facility] CenterNjbauxjlpz16-98-1849 10:53-0400Body mass index (BMI) [Ratio]36.13 kg/i1BxbyluKofi Bowers MD Work Phone: [facility] CenterKwfnbgtzgc78-02-9098 10:53-0400Body wncgul86.92 kgKofi oBwers MD Work Phone: [facility] CenterVaazmpdypo60-69-3715 10:53-0400Diastolic blood jjjzrjzy81 mm[Hg]Kofi Bowers MD Work Phone: [facility] CenterOibmhnshja40-04-4867 10:53-0400Heart rate80 /min Kofi Bowers MD Work Phone: [facility] CenterCvhvshjpoi15-62-9695 10:53-9376BbZ3% (BldA) [Mass fraction]96 %Kofi Bowers MD Work Phone: [phone]-5681[facility] CenterGntgegyerh68-57-9161 10:53-0400Systolic blood cdnaotdl943 mm[Hg]Kofi Bowers MD Work Phone: [facility] CenterNaelibfzqq09-06-2335 14:10-0400Body ivgiar417.4 cmKofi Bowers MD Work Phone: [facility] CenterLvxonsjjhz91-75-8268 14:10-0400Body mass index (BMI) [Ratio]34.76 kg/k3CsvfclKofi Bowers MD Work Phone: [facility] CenterXeyizkagbh64-88-5886 14:10-0400Body khmock70.74 kgKofi Bowers MD Work Phone: [facility] CenterXwstscufag90-41-4761 14:10-0400Diastolic blood trpruwbc89 mm[Hg]Kofi Bowers MD Work Phone: [facility] CenterZzpigcnyaw57-83-6681 14:10-0400Heart rate77 /min Kofi Bowers MD Work Phone: [facility] CenterJfknigfgmj73-06-0471 14:10-0400Respiratory rate17 /minDcollin Bowers MD Work Phone: [facility] CenterEhlnkfnnec54-59-5240 14:10-4828GfQ1% (BldA) [Mass fraction]97 %Kofi Bowers MD Work Phone: [facility] CenterYjykifybcx57-71-0122 14:10-0400Systolic blood fbngtlej618 mm[Hg]Kofi Bowers MD Work Phone: [facility] CenterBgupkhtfnr04-76-2002 11:07-0400Body qsisxl109.4 cmKofi Bowers MD Work Phone: [facility] CenterPvrnljbkpz34-83-4214 11:07-0400Body mass index (BMI) [Ratio]34.57 kg/d2HqtwkfKofi Bowers MD Work Phone: [facility] CenterWadumrmebr67-31-1359 11:07-0400Body temperature 97.5 [degF]Kofi Bowers MD Work Phone: [facility] CenterLjdcvcgeqp70-20-4221 11:07-0400Body .29 kgKofi Bowers MD Work Phone: [facility] CenterWlyklaizeo44-67-6949 11:07-0400Diastolic blood mm[Hg]Kofi Bowers MD Work Phone: [facility] CenterVrseszwhgn92-45-9521 11:07-0400Heart rate76 /min Kofi Bowers MD Work Phone: [facility] CenterIhiurtpchb96-43-7037 11:07-6209RhB1% (BldA) [Mass fraction]97 %Kofi Bowers MD Work Phone: [facility] CenterBzeoizhipo73-51-3470 11:07-0400Systolic blood ggebkhkk300 mm[Hg]Kofi Bowers MD Work Phone: [facility] CenterHmltmgaygd88-82-0438 13:14-0400Body ggolrg199.4 cmSkye FARIAS Work Phone: [facility] CenterClfthjdidu28-54-9199 13:14-0400Body mass index (BMI) [Ratio]35.15 kg/r4AnnvwSkye FARIAS Work Phone: [facility] CenterXtqhcprzat82-11-5306 13:14-0400Body ysifuj69.65 kgKaren Hemmer PA Work Phone: [facility] CenterCxipggrrqh80-80-5910 13:14-0400Diastolic blood vgygonfu18 mm[Hg]Skye Hemmer PA Work Phone: [facility] CenterRvmzjidjyx95-58-0214 13:14-0400Heart rate78 /min Skye Hemmer PA Work Phone: [facility] CenterNzzmmdlyid15-27-0787 13:14-0400Respiratory rate16 /minKaren Hemmer PA Work Phone: [facility] CenterRejbxiohhw83-89-9389 13:14-0392MkA6% (BldA) [Mass fraction]97 %Skye Hemmer PA Work Phone: [facility] CenterIwcccppmud35-98-3356 13:14-0400Systolic blood pgzfhudx753 mm[Hg]Skye Hemmer PA Work Phone: [facility] CenterTvyafyqggt93-91-6986 13:21-0500Diastolic blood rkduruee99 mm[Hg]Skye Hemmer PA Work Phone: [facility] CenterKzmelykeeh90-55-8711 13:21-0500Systolic blood elhptpyt637 mm[Hg]Skye Hemmer PA Work Phone: [facility] CenterJhezhjxxan31-00-1330 13:10-0500Body waakjd198.4 cmKaren Hemmer PA Work Phone: [facility] CenterWryphdamhj69-94-4496 13:10-0500Body mass index (BMI) [Ratio]35.27 kg/u7Teavg Hemmer PA Work Phone: [facility] CenterAqcatwjcba25-23-8984 13:10-0500Body cgtcro15.92 kgKaren Hemmer PA Work Phone: [facility] CenterGajjbplyfr31-04-5194 13:10-0500Heart rate99 /min Skye Hemmer PA Work Phone: [facility] CenterLllpvctwva07-98-4891 13:10-0500Respiratory rate16 /minKaren Hemmer PA Work Phone: [facility] CenterFqdbxexauf27-65-1882 13:10-0106AzZ0% (BldA) [Mass fraction]99 %Skye FARIAS Work Phone: [facility] CenterVaizymdhof34-66-9398 11:41-0500Body mass index (BMI) [Ratio]35.9 kg/w9IgyvwoebiBarberton Citizens Hospital11-14-2024 15:19-0500 Body vgndiv691.4 cmBarberton [facility]11-14-2024 15:19-0500Body fvdroo47.46 kgBarberton [facility] Hospital11-14-2024 15:19-0500Diastolic blood mm[Hg][facility]11-14-2024 15:19-0500 Heart rate87 /minBarberton Citizens Hospital11-14-2024 15:19-3858CkT5% (BldA) [Mass fraction]96 %[facility]11-14-2024 15:19-0500 Systolic blood ynltbbmx948 mm[Hg][facility]08-26-2024 11:10-0400Body mass index (BMI) [Ratio]36.21 kg/b6Rkkpenbritany Bowers MD Work Phone: [facility] CenterLhvdoplaul1945 11:10-0400Body unfvot50.1 kg Kofi Bowers MD Work Phone: [facility] CenterZuugqibigr22-67-3350 11:10-0400Diastolic blood mpyetonj31 mm[Hg]Kofi Bowers MD Work Phone: [facility] CenterKnfjmlwbpu72-65-8530 11:10-0400Heart rate70 /min Kofi Bowers MD Work Phone: [facility] CenterQbnohzvqig96-90-5427 11:10-0400Respiratory rate16 /minDcollin Bowers MD Work Phone: [facility] CenterWzowmtyxwp58-53-3422 11:10-9442XlN0% (BldA) [Mass fraction]93 %Kofi Bowers MD Work Phone: [facility] CenterBguqnvbwcy69-15-0020 11:10-0400Systolic blood tdsnotha251 mm[Hg]Kofi Bowers MD Work Phone: noOneCardYtzduzrrsi91-48-1149 13:00-0500Body oylwbk320.94 cmAbdullahi Acosta Other [employer] Other 11-13-2023 13:00-0500Body mass index (BMI) [Ratio]35.9 kg/z7BxbnxAbdullahi Acosta Other [employer] Other 11-13-2023 13:00-0500Body dhewlc19.18 kgAbdullahi Acosta Other [employer] Other 11-13-2023 13:00-0500Diastolic blood frxwtmsy78 mm[Hg] Abdullahi Acosta Other [employer] Other 11-13-2023 13:00-1100DnY1% (BldA) [Mass fraction]97 % Abdullahi Acosta Other [employer] Other 11-13-2023 13:00-0500Systolic blood gugppkqo269 mm[Hg] Abdullahi Acosta Other [employer] Other 11-14-2022 14:00-0500Body sxekkk554.94 cmAbdullahi Acosta Other [employer] Other 11-14-2022 14:00-0500Body mass index (BMI) [Ratio] 37.22 kg/y8KropeAbdullahi Acosta Other [employer] Other 11-14-2022 14:00-0500Body jipavhaifbz46.8 [degF]Abdullahi Cernaban Other [employer] Other 11-14-2022 14:00-0500Body npwtvo76.36 kgAbdullahi Acosta Other [employer] Other 11-14-2022 14:00-0500Diastolic blood piuwwczh54 mm[Hg] Abdullahi Acosta Other [employer] Other 11-14-2022 14:00-7747XgW0% (BldA) [Mass fraction]97 % Abdullahi Acosta Other [employer] Other 11-14-2022 14:00-0500Systolic blood blbpihhe513 mm[Hg] Abdullahi Acosta Other [employer] Other 11-18-2021 14:00-0500Body .94 cmAndra Ching Other [employer] Other 11-18-2021 14:00-0500Body mass index (BMI) [Ratio] 35.33 kg/f8Orqhqra Ching Other [employer] Other 11-18-2021 14:00-0500Body pazqkivuajs84 [degF]Olamide Ching Other [employer] Other 11-18-2021 14:00-0500Body kgsyfy03.82 kgAndra Ching Other [employer] Other 11-18-2021 14:00-0500Diastolic blood jsorllet85 mm[Hg] Olamidera Ching Other [employer] Other 11-18-2021 14:00-1229XuX8% (BldA) [Mass fraction]97 % Olamide [facility]ing [facility] [employer] Other 241659-65-7032 14:00-0500Systolic blood aqadfkwy890 mm[Hg] Olamide Ching Other [facility] [employer] Other Encounters Encounter DateEncounter TypeCare ProviderFacilityStart: 06-17-2025 End: 25-97-5008Rrokem Marisela Bowers MD Work Phone: [facility] MedinceStart: 06-17-2025 End: 92-04-2708Gmrrec Marisela Bowers MD Work Phone: NOWV [facility] MedinceStart: 06-17-2025 End: 94-55-2851Xocyud outpatient visit 15 minutesKofi Bowers MD Work Phone: NOMS [facility] MedinceComment on above:Acute myofascial strain of lumbar region, subsequent encounter; Need for vaccinationStart: 06-17-2025 End: 29-15-8475smbchxxwroCGGQPE B BERRYNot AvailableStart: 06-06-2025 End: 30-43-6197Ubhtrq flowsAnthony Bowers MD Work Phone: [facility] MedinceStart: 06-06-2025 End: 98-53-0059Guiupuanisha Bowers MD Work Phone: [facility] MedinceStart: 06-06-2025 End: 02-39-0270Pnrvnx outpatient visit 25 minutesKofi Bowers MD Work Phone: [facility] MedinceComment on above:Acute myofascial strain of lumbar region, initial encounter (Primary Dx)Start: 06-06-2025 End: 89-07-9680kmunvgzupkNPJQYA B BERRYNot AvailableStart: 05-13-2025 End: 27-94-9451Tosplybxp encounterKofi Bowers MD Work Phone: NONI [facility] MedinceStart: 04-29-2025 End: 61-25-8375QbgrcyXppyha B Berry MD Work Phone: N[facility] MedinceComment on above: Hypothyroidism, unspecified type ; Failed back syndromeStart: 04-22-2025 End: 89-28-1350Vsgkuqamj encounterKofi Bowers MD Work Phone: [facility] MedinceStart: 04-17-2025 End: 40-43-2623Allvxr flowsheetKofi Bowers MD Work Phone: [facility] MedinceStart: 04-17-2025 End: 17-75-1841Skndrj flowsAnthony Bowers MD Work Phone: [facility] MedinceStart: 04-17-2025 End: 89-12-6688Vhomybchu encounterKofi Bowers MD Work Phone: NOSW [facility] MedinceStart: 04-17-2025 End: 93-74-6757Xnmlt of hemosiderin, Saumya Bowers MD Work Phone: NOJQ HealthcareStart: 04-17-2025 End: 88-40-2041Byompbn encounter procedureKofi Bowers MD Work Phone: [facility] MedinceComment on above:Routine general medical examination at health care facility (Primary Dx); ACP (advance care planning); Diabetes mellitus type 2 with neurological manifestations (HCC)Start: 04-17-2025 End: 93-67-4831nglhdsgtsmTVVQCX B BERRYNot AvailableStart: 04-04-2025 End: 53-37-8496IdaxrvIpeaqu B Berry MD Work Phone: [facility] MedicineComment on above:Failed back syndromeStart: 03-07-2025 End: 14-77-6999jfhzfgzbekQAQLDH B BERRYNot AvailableStart: 02-25-2025 End: 58-34-5585rqkaekzemqXprmelhEstrella Maya MDFacility:PM Dipesh Start: 02-11-2025 End: 90-03-1546Rlstgd outpatient visit 15 minutesKofi Bowers MD Work Phone: NOMS CI FMComment on above:Nausea (Primary Dx); Type 2 diabetes mellitus with hyperglycemia, without long-term current use of insulin (HCC)Start: 02-11-2025 End: 17-22-3769btgcwtxtiwTXQPAK B BERRYNot AvailableStart: 02-11-2025 End: 31-37-7473Fuiqwn Marisela Bowers MD Work Phone: [facility] CI FMStart: 02-11-2025 End: 78-74-4488Rnwrra Marisela Bowers MD Work Phone: [facility] CI FMStart: 02-08-2025 End: 59-74-7934Goswqi Marisela Bowers MD Work Phone: [facility] CI FMStart: 02-08-2025 End: 16-52-6396Lyloea Marisela Bowers MD Work Phone: [facility] CI FMStart: 02-08-2025 End: 11-94-3852Fjpwki outpatient visit 15 minutesKofi Bowers MD Work Phone: [facility] CI FMComment on above:Nausea (Primary Dx)Start: 02-08-2025 End: 16-04-5587bkzywbaaciBOMYYE B BERRYNot AvailableStart: 02-04-2025 End: 61-48-7445fetssjetziRuwagezStacey Maya MDFacility:PM [facility]esh Start: 01-24-2025 End: 28-76-9387Djbcpqxau Result EncounterGeneric External Data ProviderNOMS External Department UnsolicitedStart: 01-24-2025 End: 78-43-5118Ncozokwtn Result EncounterGeneric External Data ProviderNOMS External Department UnsolicitedStart: 01-14-2025 End: 25-42-5396Rdavzg Fernando Goode PA Work Phone: [facility] CI FMStart: 01-14-2025 End: 28-69-3471Mnehqo Fernando Goode PA Work Phone: [facility] CI FMStart: 01-14-2025 End: 09-67-4106Ssqare outpatient visit 15 minutesSkye Goode PA Work Phone: NOM[facility] CI FMComment on above:Lumbar paraspinal muscle spasm (Primary Dx); Type 2 diabetes mellitus with hyperglycemia, without long-term current use of insulin (CMS/HCC)Start: 01-14-2025 End: 66-31-7444ctdlhyjzozHSSLK M HEMMERNot AvailableStart: 12-03-2024 End: 71-28-4194ZdmassKuddnf B Berry MD Work Phone: [facility]OM[facility] CI FMComment on above:Failed back syndromeStart: 10-03-2024 End: 25-95-7662ZmjrlnHftmwq B Berry MD Work Phone: [facility] CI FMComment on above:Failed back syndromeStart: 09-10-2024 End: 57-16-8308azzdvqikqiNwihuic Vytautas Gilaurie BUENOFacility:PM Dipesh Start: 09-03-2024 End: 45-82-5792DyegswWkcvfk B Berry MD Work Phone: [facility] CI FMComment on above:Failed back syndromeStart: 08-28-2024 End: 80-31-8405Wfpwgi Fernando Goode PA Work Phone: [facility] CI FMStart: 08-28-2024 End: 43-76-7516Kwikzg Fernando Goode PA Work Phone: [facility] CI FMStart: 08-28-2024 End: 11-96-3350Yzoprl outpatient visit 25 minutesSkye Goode PA Work Phone: [facility] CI FMComment on above: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) (Primary Dx); Benign essential hypertension (CMS/HCC); Morbid (severe) obesity due to excess calories (CMS/HCC); Body mass index (BMI) 35.0-35.9, adultStart: 08-28-2024 End: 60-10-8933muinemapdoFKRWU Julia GOODEHeidi AvailableStart: 08-20-2024 End: 58-53-4434vrklwztyldUqdsyix Vytautas Giedraitis MDFacility:[facility] [place] Start: 08-13-2024 End: 59-49-9913sfymefkrzwBeblkhc Vytautas Giedraitis MDFacility:[facility] Start: 08-02-2024 End: 49-92-3802AbnnpqJiagxn B Berry MD Work Phone: noMS CI FMComment on above:Failed back syndromeStart: 07-30-2024 End: 69-21-7730fbhtvlbyyhXqhxrve Vytautas Giedraitis MDFacility:[facility] Start: 07-23-2024 End: 47-37-5562minjmraoltNkshgwp Vytautas Giedraitis MDFacility:[facility] Start: 07-18-2024 End: 01-37-9587Seyxctbdv Result EncounterGeneric External Data ProviderNOMS External Department UnsolicitedStart: 07-18-2024 End: 45-75-1265Lbdylgxfq Result EncounterGeneric External Data ProviderNOMS External Department UnsolicitedStart: 07-02-2024 End: 75-72-9285EetfagPagzme B Berry MD Work Phone: NOM[facility] CI FMComment on above:Failed back syndrome; Hypothyroidism, unspecified type (CMS/HCC)Start: 06-29-2024 End: 28-11-8464pudhipeiexQedrsfebkMer[facility] Health [facility] Work Phone: Start: 06-29-2024 End: 87-55-0658Qtrajoa encounter procedureWomen [facility] Work Phone: Start: 06-04-2024 End: 03-96-2905MgdreeHmwskx B Berry MD Work Phone: NOM[facility] CI FMComment on above:Failed back syndromeStart: 05-25-2024 End: 88-90-6595Zlfhhwjkk Result EncounterGeneric External Data ProviderNOMS External Department UnsolicitedStart: 05-25-2024 End: 86-61-5668Oawoqaixu Result EncounterGeneric External Data ProviderNOMS External Department UnsolicitedStart: 05-11-2024 End: 80-12-6821Dfbdghmiz Result EncounterGeneric External Data ProviderNOMS External Department UnsolicitedStart: 05-11-2024 End: 40-67-8921Plzgmtpfz Result EncounterGeneric External Data ProviderNOMS External Department UnsolicitedStart: 05-07-2024 End: 02-44-2512IdhpfvVgbfsx B Berry MD Work Phone: NOM[facility] CI FMComment on above:Failed back syndromeStart: 04-09-2024 End: 38-61-5221Hpmhdq flowsAnthony Bowers MD Work Phone: [facility] CI FMStart: 04-09-2024 End: 07-00-3253Cxlaim flowsAnthony Bowers MD Work Phone: [facility] CI FMStart: 04-09-2024 End: 10-89-5347Dhedt of hemosiderin, quantKofi Bowers MD Work Phone: [facility] Work Phone: Start: 04-09-2024 End: 17-84-1359Kxeddoe encounter procedureKofi Bowers MD Work Phone: N[facility] [...] Iliopsoas bursitis of right hipStart: 04-04-2024 End: 59-94-0085UdqeaeNpvgth B Berry MD Work Phone: noms CI FMComment on above:Failed back syndromeStart: 03-18-2024 End: 79-22-5476Awsygadye department patient visitDABRITANY Hubbard KAYLEYUniversity Hospitals Health Systemtart: 31-43-2837ZzivyhHjdqwu B Berry MD Work Phone: noms CI FMComment on above:Failed back syndromeStart: 06-27-2023 End: 00-60-8865nkyjrlkwzcVcwgo ChabanFacility:[facility] Start: 53-22-5506Hqxepu outpatient visit [facility] OutPtStart: 06-27-2023 End: 47-84-7028fkpmqguvjqHT Kofi Bowers Work Phone: [facility] Work Phone: Start: 06-27-2023 End: 01-15-3064Tdvjojh encounter procedureII Kofi Bowers Work Phone: [facility] Work Phone: Start: 57-09-8183qgqoupwxsvHODFMROBZJFB JAREDSHMIPATHCharmaine . Facility:R5Lgfye: 01-03-2023 End: 84-34-5885khmxdqyscsCWLUVOL [facility] Hospitaltart: 10-14-2022 End: 08-63-9705ohqclgriksLB SERENITY GARCIA .Facility:F2Tperh: 09-28-2022 End: 89-90-7888jrcgzrynzmIUDJPUOBMount St. [facility] Hospital Start: 09-07-2022 End: 05-21-9401cxmsllnliiMH DOCTOR MISCFacility:I9Rgmwh: 08-31-2022 End: 22-04-7696kyzcdnhyglLVHQGPXJMount St. [facility] Hospital Start: 08-23-2022 End: 97-91-4753bivkzimybmWS SAMER KHOURIFacility:A3Zsphh: 07-14-2022 End: 20-31-3915jzmwosorzkEDTW ZIMMER .Facility:R4Zmwoi: 57-84-4196Cjerqo outpatient visit [facility]Start: 06-28-2022 End: 89-70-5178qrpzrmzwflBY Kofi Bowers Work Phone: [facility] Work Phone: Start: 06-28-2022 End: 44-18-8270Jhyipxv encounter procedureII Kofi Bowers Work Phone: [facility] LabStart: 06-01-2022 End: 61-85-0281wsshtbmmjcVVPJBES BOESUniProMedica Toledo Hospitaltart: 05-18-2022 End: 26-84-1155ijzoavdnbdYKKHBPJ BOESFacility:K0Gqkle: 05-05-2022 End: 69-97-8355svbrkmbittHCPZOFB BOESFacility:V7Bsssf: 04-28-2022 End: 05-56-9415azhjiixyhkKJJCTVH BOESUniversChildren's Hospital for Rehabilitationtart: 04-08-2022 End: 76-38-2084ryifkgrochPE SERENITY S GARCIA .Facility:B7Ebkfz: 02-10-2022 End: 56-44-6443njmkdjuynhBP SEERNITY S GARCIA .Facility:K7Kutpi: 01-26-2022 End: 42-54-3407lrtutrpycwWE SERENITY S GARCIA .Facility:W1Wadld: 01-06-2022 End: 02-53-9793kevbxsxllwAU JOE MUKHERJEEFacility:M3Cahya: 01-04-2022 End: 65-17-7345lcihlcikzyRB KOFI BOWERSFacility:O2Vbmcl: 34-09-8902rksbmnivfo MOHGALINAD KAPILHOTHANIFacility:A7Otqvo: 11-30-2021 End: 24-71-0658vhttlrbcvcPX KOFI KAYLEYFacility:U3Tnrzq: 27-80-9591pkkaughhmt BETZAIDA ZIMMER .Facility:J5Nimtm: 11-03-2021 End: 75-89-9126vuzojfptlpBPYKZXY ALGHOTHANIFacility:A5Hthai: 10-30-2021 End: 26-21-8048pphkualbmmMI DANIEL BERRYFacility:Y9Ieznc: 07-02-2021 End: 68-33-4519ynmgtrwqygRxxxq Kurtz [facility] [employer] Other Start: 24-10-6724Ingfpi outpatient visit 15 minutes Olamidera [facility]Aden[facility] Procedures DateProcedureProcedure DetailPerforming ClinicianStart: 01-66-4486Genctplzmendm metabolic panelKofi Bowers MD Work Phone: Start: 18-25-6048Ildae panelKofi Bowers MD Work Phone: Start: 23-53-3622Dzujo albumin quantitativeKofi Bowers MD Work Phone: Start: 29-25-7681Yjzuicauvy glycosylated s0aKdpegpKofi Bowers MD Work Phone: Start: 69-73-1327Qcovy spine thoracic 2 viewsGeneric External Data ProviderStart: 33-57-1001Zzevwqyxyo glycosylated h8jPgkyeSkye Goode PA Work Phone: Start: 76-36-6761Wqplmfiocp glycosylated p4cPtoqkSkye Goode PA Work Phone: Start: 44-79-0148TJZ BASIC METABOLIC PANELGeneric External Data ProviderStart: 43-33-6724IFP 12-LEADGeneric External Data Provider Start: 18-16-8278Bo thoracic spine w/o contrast materialGeneric External Data ProviderStart: 23-81-0386Psiqc spine thoracic 2 viewsGeneric External Data ProviderStart: 67-67-0455CF LUMBAR SPINE MIN 4VGeneric External Data Provider Start: 37-89-3955Lpbrcg img dx retinl dis w/narciso & report uni/bDcollin Bowers MD Work Phone: Start: 06-08-0389Pkwbgjimpm glycosylated w1nWfisqsKofi Bowers MD Work Phone: Plan of Treatment DateCare ActivityDetailAuthorStart: 09-04-5223Tybuapjd screeningDiabetes: Retinopathy ScreeningNOMS HealthcareStart: 20-88-7800Qhzaf screening for protein Diabetes: Urine Protein ScreeningNOMS HealthcareStart: 09-03-2026Medicare Annual Wellness (AWV)Medicare Annual Wellness (AWV)[facility] HealthcareStart: 12-12-2025 End: 95-13-4137Xtpqocp encounter aqsorwwuc78/30/2026 11:30 AM EDT [facility] [place] [address] [facility] [address] [place] [address] Kofi Bowers MD [address] [facility] [address] [place] [address] NOMBrooklyn Rowe MedinceStart: 07-17-2025 Hemoglobin A1c measurementDiabetes: Hemoglobin I3JJWMC HealthcareStart: 06-17-2025 End: 11-70-3256Ouicljd encounter procedureNOMS [place] Rowe MedinceComment on above:ArrivedStart: 90-11-0659Fjnynxuwac A1c measurementDiabetes: Hemoglobin A1C N[facility] HealthcareStart: 06-06-2025 End: 52-25-5095Lwskdqm encounter mszsiykcx79/23/2025 9:00 AM EDT Office Visit [facility] [place] Mayernce [address] [facility] [address] [place] [address] Kofi Bowers MD [address] [facility] [address] [place] [address] ArrivedNOMS [place] Rowe MedinceComment on above:ArrivedStart: 25-14-2340Ogvpbtib screeningDiabetes: Retinopathy ScreeningNOMS HealthcareStart: 04-17-2025 End: 46-49-1746Dnizptj encounter procedureNOMS CI FMComment on above:Arrived Start: 37-04-7310Ygqrxynykv A1c measurementDiabetes: Hemoglobin G4UJXYD HealthcareStart: 67-20-5032ZWNAZ-19 Vaccine ()COVID-19 Vaccine ( season)NOMS HealthcareStart: 86-39-0048Idwyazhsa vaccination Influenza Vaccine (#1)NOMS HealthcareStart: 08-26-2025Medicare Annual Wellness (AWV)Medicare Annual Wellness (AWV)[facility] HealthcareStart: 17-03-5092Hlhlh screening for proteinDiabetes: Urine Protein ScreeningNOMS HealthcareStart: 02-11-2025 End: 58-70-0787Mlsaqrg encounter procedureNOMS CI FMComment on above:Arrived Start: 02-08-2025 End: 02-19-6845Xlnjiqj encounter tstilxoge28/27/2025 11:15 AM EDT Office Visit [facility] [address] [facility] [address] [place] [address] Kofi Bowers MD [address] [facility] [address] [place] [address] ArrivedNOMS CI FMComment on above:ArrivedStart: 01-17-2025 Urine screening for proteinDiabetes: Urine Protein ScreeningNODC Healthcare Start: 01-14-2025 End: 14-08-9043Yulwluy encounter nqazerjtp18/02/2025 1:00 PM EDT Office Visit [facility] [address] [facility] [address] [place] [address] Skye Goode PA [address] [facility] [address] [place] [address] ArrivedNOMS CI FMComment on above:ArrivedStart: 78-37-9459Flhlraqpfm A1c measurementDiabetes: Hemoglobin E5VUHAO Healthcare Start: 08-28-2024 End: 00-74-8382Dmpepvi encounter tmxuksxza93/14/2025 1:00 PM EST Office Visit [facility] [address] [facility] [address] [place] [address] Skye Goode PA [address] [facility] [address] [place] [address] ArrivedNOMS CI FMComment on above:ArrivedStart: 08-13-2024 End: 49-62-8585Qpdgxiw encounter zdywdyphk11/30/2024 1:15 PM EST Office Visit [facility] [address] [facility] [address] [place] [address] Kofi Bowers MD [address] [facility] [address] [place] [address] NOMS CI FMStart: 08-09-2024 End: 95-65-4741Orjnoat encounter igffsbpxj05/26/2024 1:15 PM EST Office Visit [facility] [address] [facility] [address] [place] [address] Kofi Bowers MD [address] [facility] [address] [place] [address] NOMS CI FMStart: 60-87-1545Hfrqyabtyz A1c measurementDiabetes: Hemoglobin Q3ZJVLO HealthcareStart: 60-18-3520Wvfjaeyii vaccinationInfluenza Vaccine (#1)[facility] HealthcareStart: 04-09-2024 End: 46-85-2252Yycputvgwwij/Creatinine panel in random UrineMicroalbumin / creatinine, urine ratio Lab Routine Type 2 diabetes mellitus without complication, without long-term current use of insulin ([facility]) Expected: 04/09/2024 (Approximate), Expires: 04/09/2025[facility] Work Phone: Comment on above:Expected: 04/09/2024 (Approximate), Expires: 04/09/2025Start: 04-09-2024 End: 50-67-0155Arpyidk encounter procedureNOPAWH[facility] [place] FMComment on above:Arrived Start: 18-03-6771Gzwjzzoayk A1c measurementDiabetes: Hemoglobin E3TMZRB HealthcareStart: 05-22-2024Medicare Annual Wellness (AWV)Medicare Annual Wellness (AWV)[facility] HealthcareStart: 29-20-7582Bmiio screening for protein Diabetes: Urine Protein ScreeningNODC HealthcareStart: 10-27-2023 End: 58-79-6221Dplrupc encounter /14/2024 2:45 PM EDT Office Visit [facility] [address] [facility] [address] [place] [address] Kofi Bowers MD [address] [place] [address] [address] [place] [address] NOMS CI FMStart: 77-40-5886Niyfxfplov A1c measurementDiabetes: Hemoglobin B4LSPWY HealthcareStart: 75-29-5563Owykdwkz screeningDiabetes: Retinopathy ScreeningNODC HealthcareStart: 69-62-5560GYiO/Tdap/Td Vaccines (2 - Tdap)DTaP/Tdap/Td Vaccines (2 - Tdap)[facility] HealthcareStart: 05-15-2014 Pneumococcal Vaccine: 65+ Years (2 of 2 - PCV)Pneumococcal Vaccine: 65+ Years (2 of 2 - PCV)[facility] Healthcare Immunizations Immunization DateImmunizationNotesCare BgtzofcdVaztclfg21-91-2880oivpahaul, high dose seasonal, preservative-Rosendo Bowers MD Work Phone: [facility] CenterQdmcwozwbh41-82-8686azpfsm vaccine recombinant Kofi Bowers MD Work Phone: [facility] CenterOjrjzyiuyo22-17-5327kckhuh vaccine recombinant Skye FARIAS Work Phone: [facility] CenterZwqbastbtr50-35-2520XSNBILI - Respiratory syncytial virus (RSV), vaccine, bivalent, protein subunit RSV prefusion F, dil uent reconstituted, 0.5 mL, PFSkye FARIAS Work Phone: [facility] CenterWmygnomrtc66-16-9779yezenbdge, high dose seasonal, preservative-freeSkye FARIAS Work Phone: [facility] CenterXncypdedqc24-27-9205qajzkbtua virus vaccine, unspecified formulationKofi Bowers MD Work Phone: [facility] CenterYswvnssvff63-37-3808Twfvgpdmb, High-dose Seasonal, Quadrivalent, Preservative Rosendo Bowers MD Work Phone: [facility] CenterRgudueuywd85-51-3235arikzftoc virus vaccine, unspecified formulationKofi Bowers MD Work Phone: [facility] CenterXtxtnsoizy49-04-7887Lhogcqnuc, injectable, Madin Mellott Canine Kidney, preservative free, quadrivalentKofi Bowers MD Work Phone: [facility] CenterLumwjvhdyx33-60-4049jhnubbwjw, high dose seasonal, preservative-Rosendo Bowers MD Work Phone: [phone] Missouri Medical CenterUmmykhkltf36-54-8666Ixgwqpmf, trivalent, recombinant, injectable influenza vaccine, preservative Rosendo Bowers MD Work Phone: [facility] CenterAnbzvnhoum97-99-9634tfxfqcnve, injectable, quadrivalent, preservative Rosendo Bowers MD Work Phone: [phone] Missouri Medical CenterVlxykedqcz14-35-9710paufhrcbc, injectable, quadrivalent, preservative Rosendo Bowers MD Work Phone: [phone] [place], [place] [address]Rdxauhgjhb51-95-5783yyqblmqma, injectable, quadrivalent, preservative Rosendo Bowers MD Work Phone: [phone] [place], [place] [address]Ydkulmknej43-91-9632wkqekdj and diphtheria toxoids, adsorbed, preservative free, for adult use (5 Lf of tetanus toxoid and 2 Lf of diphtheria toxoid)Kofi Bowers MD Work Phone: [facility] CenterDvsjgwabuc95-76-4112ddlsaeffrrfi polysaccharide vaccine, 23 valentKofi Bowers MD Work Phone: [facility] Payers DatePayer CategoryPayerPolicy [id number] [id number] 2023Medicare (Managed Care) [id number] [id number] 2018MedicareMEBNVNSN [id number] [id number] [id number] 1960Private Health [id number]-sdd 422s950l-[id number]-98dw6[id number] 2.16.840.1.069044.3.57[id number] 2.16.840.1.182639.3.57[id number] 2.16.840.1.405190.3.579.2.83368-11-2147Tjgburs4253770 2.16.840.1.749114.3.579.2.93185-31-0668Zlautas9868601 2.16.840.1.586740.3.579.2.03020-27-8741Tllmanr7941108 2.16.840.1.674158.3.579.2.97249-38-9422Zdqrdlp1239351 2.16.840.1.288174.3.579.2.19053-98-9322Gzjdecb2891392 2.16.840.1.356342.3.579.2.89796-64-8591Iuwznot3331381 2.16.840.1.854353.3.579.2.77705-36-8063Empmwci8164201 2.16.840.1.630366.3.579.2.25901-12-2541Lmwhjkt6049513 2.16.840.1.047207.3.579.2.93081-15-1886Htrklzx0158121 2.16.840.1.593674.3.579.2.33054-32-6331Tpgysom8463770 2.16.840.1.409172.3.579.2.85815-78-5894Hyhnact0229160 2.16.840.1.823497.3.579.2.73913-29-3952Wqwmdml3895367 2.16.840.1.666536.3.579.2.24967-86-3204Mqtzdfh6394766 2.16.840.1.082621.3.579.2.60362-15-8988Sfshsrt6925645 2.16840.1.483516.3.579.2.40730-99-1801Fuegsuy9946138 2.16840.1.974594.3.579.2.62625-98-5661Bforxxu94387195 2..1.690468.3.579.2.028596-33-5406Slwdugu728316250 2.0.1.196873.3.579.2.23696-19-5854Jocpqpo085618424 2..1.103137.3.579.2.35324-91-4375Jqlyyrx813499614 2..1.798645.3.579.2.17317-83-2876Wpmekkl502389527 2..1.579959.3.579.2.90493-08-7008Mhtqula998308423 2.0.1.562214.3.579.2.12155-49-7770Eafhggz407391933 2.0.1.912081.3.579.2.29240-25-7941Clzzabg337746328 2.0.1.937318.3.579.2.09794-00-3553Olnlbrt16865292 2.840.1.900299.3.579.2.829498-72-9880Xdgyybf47725279 2.840.1.502838.3.579.2.441716-38-3990Hqwxqkm21278001 2..0.1.730853.3.579.2.662209-39-5169Vuqyhhl48295135 2.16.0.1.407313.3.579.2.983951-97-0494Tahmslz64741533 2.16.840.1.104093.3.579.2.534976-27-1161Qunjiga32515428 2..0.1.271455.3.579.2.691146-76-2664Cqilfgg3008747 2.0.1.678679.3.579.2.908449-17-6733Hbhipme1014537 2.160.1.475394.3.57[id number] /[id number] dz94r691-7c25-7q51-1225-lg140i76g89dGlbqrsm47714423 2.0.1.866365.3.579.2.531 Social History DateTypeDetailFacilityUnknown if ever smokedWebster [employer] Other Start: 06-15-2018 End: 78-28-6699Tqmmfze smoking status NHISEx-smoker (finding)[facility]: 26-36-7493Xno [facility]-20[facility]2023 End: 91-95-7199Gzk Assigned At [facility] [employer] Other End: 67-26-2663Orvbxmg of tobacco useCurrent smokerNOMS Healthcare End: 40-70-3796Vnsnusn of tobacco useCigarette SmokerNOMS HealthcareStart: 03-11-2023 End: 44-13-5301Qntvfsz use and exposureSmokeless tobacco non-userUIN[facility] Healthcare Start: 07-20-2023 End: 89-03-5693Qkrcgqc intakeEx-drinker (finding)[facility] HealthcareStart: 07-20-2023 End: 68-41-5019Iyixdtq of Social functionUINTAH BASIN MEDICAL CENTER HealthcareStart: 93-60-6829Roxfirj CommentCaffeine: 1-2 cups per day; none soda/popNOMS HealthcareStart: 60-59-3254Uuf Assigned At BirthNot on fileNODC HealthcareStart: 65-87-9113Jfb Female (finding)[facility] Hospitaltart: 12-04-5359BryIghfheITQV Healthcare Medical Equipment Procedure CodeEquipment CodeEquipment Original TextEquipment IdentifierDates1 each by In Vitro route [id number]: each [id number]: 25-58-5694Bvewuh 1 each under the skin [id number]: 03-26-2025 Functional Status VkyjGsidvaodvvVnfqycWimqqesi16-18-8423Ngsvvfb Health Questionnaire 2 item (PHQ- 2) [Reported][facility] CenterQyqoyhukut99-62-4125Fqcfsum Health Questionnaire 2 item (PHQ- 2) [Reported][facility] CenterNmhwumxnhx75-68-9448Avdjszb Health Questionnaire 2 item (PHQ- 2) [Reported][facility] CenterOsxruheptw20-72-8699Hxuqees Health Questionnaire 2 item (PHQ- 2) [Reported][facility] CenterNggytpwgnv63-86-9273Jgwomvg Health Questionnaire 2 item (PHQ- 2) [Reported][facility] Clinical Notes 11-03-2021 to 06-17-2025 Note Date & NutnNcvaTrhcktdo76-63-6624 History of Present illness Narrative* Kofi Bowers MD - 06/17/2025 11:30 AM EST Images from the original note were not included. Subjective Patient ID: Konrad Guzman is a 80 y.o. female who presents for No chief complaint on file.. Konrad presents today for a follow up for [...] the evening. cholecalciferol (Vitamin D-3) 1.25 MG (67338 UT) tablet Vitamin D3 5000IU empagliflozin (Jardiance) [...] two times daily. D.A.W. as Sigma or [employer] ONLY for 90 days 200 tablet [...] mass index (BMI) of 40.0-44.9 in adult ([facility]) Bronchitis Bruise of breast Cataract Colon polyps COVID-19 03/2021 Deviated nasal septum Diabetes mellitus ([facility]) Encounter for diabetic foot exam ([facility]) Family history of colon cancer Brother Fracture Rt orbital fracture, LUCIUS elbow fracture - shipped to [facility] 07/31/15. GERD (gastroesophageal reflux disease) History of being hospitalized 07/2015 [facility] - Post fall -rt orbital fx, LUCIUS elbow fracture, facial contusion History of colon polyps Hyperlipidemia Hypertension Labyrinthitis Left cervical radiculopathy Low back pain Measles Morbid obesity ([facility]) Osteopenia Pneumonia Posterior vitreous detachment [...] Wt 194 lb SpO2 98% BMI 37.89 kg/m Smoking Status Former BSA 1.93 m Review of Systems Objective Physical Exam Musculoskeletal: [...] - Flu vaccine, high dose seasonal, PF (CWG056) (Fluzone High Dose) Other orders - Follow Up In Family Medicine; Future Follow up with Dr. Kofi Bowers in 6 months (on 12/14/2025). documented in this encounterWestern Missouri Medical CenterKpkovnswur18-44-9797 History of Present illness Narrative* Kofi Bowers MD - 06/06/2025 9:00 AM EDT Images from the original note were not included. Subjective Patient ID: Konrad Guzman is a 80 y.o. female who presents [...] the evening. cholecalciferol (Vitamin D-3) 1.25 MG (45947 UT) tablet Vitamin D3 5000IU empagliflozin (Jardiance) [...] two times daily. D.A.W. as Sigma or [employer] ONLY for 90 days 200 tablet [...] mass index (BMI) of 40.0-44.9 in adult ([facility]) Bronchitis Bruise of breast Cataract Colon polyps COVID-19 03/2021 Deviated nasal septum Diabetes mellitus ([facility]) Encounter for diabetic foot exam ([facility]) Family history of colon cancer Brother Fracture Rt orbital fracture, LUCIUS elbow fracture - shipped to [facility] 07/31/15. GERD (gastroesophageal reflux disease) History of being hospitalized 07/2015 [facility] - Post fall -rt orbital fx, LUCIUS elbow fracture, facial contusion History of colon polyps Hyperlipidemia Hypertension Labyrinthitis Left cervical radiculopathy Low back pain Measles Morbid obesity ([facility]) Osteopenia Pneumonia Posterior vitreous detachment [...] or fail to improve. documented in this encounterWestern Missouri Medical CenterTxmqlfcprf57-99-4937 Telephone encounter Note* Telephone Encounter - MAREK CORONEL - 05/13/2025 3:48 PM EDT Spoke with patient and she is NOT taking Metformin, but she is taking Farxiga. [facility] Urtbyrebpx49-16-4783 Miscellaneous Notes* Telephone Encounter - MAREK CORONEL [...] savedup of this medication documented in this encounterNOCenterpoint Medical CenterYklfbdnloq45-71-3550 Telephone encounter Note* Telephone Encounter - MAREK CORONEL - 05/13/2025 2:29 PM EDT Spoke with patient and she was told to go off the Trulicity and metformin. I did see at her 03/07/25visit the Metformin was stopped but not the Trulicity. Please advise. Her BS are running from 120 to 160 [facility] Ibdcncgpge81-84-2995 Telephone encounter Note* Telephone Encounter - Chelle Guallpa - 05/13/2025 2:05 PM EDT Patient called stating that her mail order pharmacy keeps sending her truclity. She said that Dr. Bowers had her off of it and she wasn't sure if she should start taking it again or not. She said thatshelia needs to know if she needed to call that other pharmacy as she has like a 4 months supply savedup of this medication [facility] CenterPtsboenrup92-46-9854 Telephone encounter Note* Telephone Encounter - Charlette [...] Tramadol could not be filled til tomorrow. [facility] CenterManlrdvepm97-84-5085 Miscellaneous Notes* Telephone Encounter - Charletteronald Chirinos - 05/01/2025 12:40 PM EDT Konrad [...] 10:07 AM EDT [facility] [place] documented in this encounterWestern Missouri Medical CenterYpwagoekou44-65-9602 Telephone encounter Note* Telephone Encounter - Lilly Granda LPN - 04/29/2025 10:12 AM EDT Can you advise if pt is supposed to be on this medication you stopped it a couple months ago [facility] CenterKuxsgiqaeq45-06-2669 Telephone encounter Note* Telephone Encounter - Chelle Guallpa - 04/29/2025 10:07 AM EDT [facility] [place] [facility] CenterXjqfgospef88-58-4050 Telephone encounter Note* Telephone Encounter - MAREK CORONEL - 04/23/2025 4:13 PM EDT Farxiga was sent to [facility], patient notified [facility] CenterAqdaogikqw71-99-5447 Miscellaneous Notes* Telephone Encounter - MAREK CORONEL - 04/23/2025 4:13 PM EDT Farxiga was sent to [facility], patient notified * Telephone Encounter - MAREK CORONEL - 04/22/2025 11:54 AM EDT Metformin was fill In February. With 9 refills * Telephone Encounter - Chelle Guallpa - 04/22/2025 11:23 AM EDT [facility] was denied by ins pt wondered what the next steps would be. documented in this encounterWestern Missouri Medical CenterJzffkfildo40-80-3084 Telephone encounter Note* Telephone Encounter - MAREK CORONEL - 04/22/2025 11:54 AM EDT Metformin was fill In February. With 9 refills [facility] CenterRlqunzrvds03-26-4006 Telephone encounter Note* Telephone Encounter - Chelle Guallpa - 04/22/2025 11:23 AM EDT [facility] was denied by ins pt wondered what the next steps would be. [facility] CenterQepvqbzmzm66-84-4215 Telephone encounter Note* Telephone Encounter - DINORA Lopez - 04/17/2025 4:25 PM EDT Lantus sent. [facility] CenterGqvmycozuo49-35-0959 Miscellaneous Notes* Telephone Encounter - DINORA Lopez - 04/17/2025 4:25 PM EDT Lantus sent. * Telephone Encounter - MAREK CORONEL - 04/17/2025 2:15 PM EDT [facility] [place] called ans states that they no longer get the levemir injections do to it being discontinued. They have been changing to Lantus. Please send in a new RX. documented in this encounterWestern Missouri Medical CenterXfwusosjng35-98-1691 Telephone encounter Note* Telephone Encounter - MAREK CORONEL - 04/17/2025 2:15 PM EDT [facility] James called ans states that they no longer get the levemir injections do to it being discontinued. They have been changing to Lantus. Please send in a new RX. [facility] CenterQdfhklyfuf92-20-2149 History of Present illness Narrative* Kofi Bowers [...] 11:01 AM. Subjective : Chief Complaint: Konrad Guzman is an 79 y.o. female here for [...] the evening. cholecalciferol (Vitamin D-3) 1.25 MG (88720 UT) tablet Vitamin D3 5000IU furosemide (Lasix) [...] two times daily. D.A.W. as Sigma or [employer] ONLY for 90 days 200 tablet [...] Do you have a medical power of attorney law clerk?: Yes Objective : BP 134/74 Pulse 80 [...] LDL-C. Tien SS et al. ARON. 2013;310(19): 7535-6881 (http://education.FreedomPay/faq/PZV566) CHOL/HDLC RATIO 04/19/2025 2.8 <5.0 (calc) Final [...] on April 17, 2025 documented in this encounterWestern Missouri Medical CenterJmjfppncor70-13-9837 Telephone encounter Note* Telephone Encounter - DINORA Lopez - 04/04/2025 10:14 AM EDT OARRS reviewed, Rx sent into patient's pharmacy. [facility] CenterZfohptrspp31-92-2497 Miscellaneous Notes* Telephone Encounter - DINORA Lopez - 04/04/2025 10:14 AM EDT OARRS reviewed, Rx sent into patient's pharmacy. documented in this encounterWestern Missouri Medical CenterVmpqrdoglx00-60-4750 History of Present illness Narrative* Kofi Bowers MD - 02/11/2025 2:15 PM EDT Images from the original note were not included. Subjective Patient ID: Konrad Guzman is a 79 y.o. female who presents [...] the evening. cholecalciferol (Vitamin D-3) 1.25 MG (64752 UT) tablet Vitamin D3 5000IU furosemide (Lasix) 40 MG tablet TAKE 1 TABLET BY MOUTH IN THE MORNING 30 tablet 11 insulin detemir (Levemir FlexTouch) 100 UNIT/ML pen INJECT 60 UNITS SUBCUTANEOUSLY EACH MORNING for25 liothyronine (Cytomel) 25 MCG tablet 0.5 tablet on an empty stomach Orally two times daily. D.A.W. as [employer] or [employer] ONLY for 90 days 200 tablet [...] mass index (BMI) of 40.0-44.9 in adult ([facility]) Bronchitis Bruise of breast Cataract Colon polyps COVID-19 03/2021 Deviated nasal septum Diabetes mellitus ([facility]) Encounter for diabetic foot exam ([facility]) Family history of colon cancer Brother Fracture Rt orbital fracture, LUCIUS elbow fracture - shipped to [facility] 07/31/15. GERD (gastroesophageal reflux disease) History of being hospitalized 07/2015 [facility] - Post fall -rt orbital fx, LUCIUS elbow fracture, facial contusion History of colon polyps Hyperlipidemia Hypertension Labyrinthitis Left cervical radiculopathy Low back pain Measles Morbid obesity ([facility]) Osteopenia Pneumonia Posterior vitreous detachment [...] No follow-ups on file. documented in this encounterWestern Missouri Medical CenterIykkdarjth26-72-4338 History of Present illness Narrative* Kofi Bowers MD - 02/08/2025 11:15 AM EDT Images from the original note were not included. Subjective Patient ID: Konrad Guzman is a 79 y.o. female who presents [...] the evening. cholecalciferol (Vitamin D-3) 1.25 MG (90418 UT) tablet Vitamin D3 5000IU furosemide (Lasix) 40 MG tablet TAKE 1 TABLET BY MOUTH IN THE MORNING 30 tablet 11 insulin detemir (Levemir FlexTouch) 100 UNIT/ML pen INJECT 60 UNITS SUBCUTANEOUSLY EACH MORNING for25 liothyronine (Cytomel) 25 MCG tablet 0.5 tablet on an empty stomach Orally two times daily. D.A.W. as [employer] or [employer] ONLY for 90 days 200 tablet [...] mass index (BMI) of 40.0-44.9 in adult ([facility]) Bronchitis Bruise of breast Cataract Colon polyps COVID-19 03/2021 Deviated nasal septum Diabetes mellitus ([facility]) Encounter for diabetic foot exam ([facility]) Family history of colon cancer Brother Fracture Rt orbital fracture, LUCIUS elbow fracture - shipped to [facility] 07/31/15. GERD (gastroesophageal reflux disease) History of being hospitalized 07/2015 [facility] - Post fall -rt orbital fx, LUCIUS elbow fracture, facial contusion History of colon polyps Hyperlipidemia Hypertension Labyrinthitis Left cervical radiculopathy Low back pain Measles Morbid obesity ([facility]) Osteopenia Pneumonia Posterior vitreous detachment [...] 4 days (around 02/12/2025). documented in this encounterWestern Missouri Medical CenterLjxstmbvcp42-50-1418 History of Present illness Narrative* DINORA Lopez - 01/14/2025 1:00 PM EDT Images from the original note were not included. Subjective Patient ID: Konrad Guzman is a 79 y.o. female who presents [...] the evening. cholecalciferol (Vitamin D-3) 1.25 MG (13529 UT) tablet Vitamin D3 5000IU furosemide (Lasix) 40 MG tablet TAKE 1 TABLET BY MOUTH IN THE MORNING 30 tablet 11 insulin detemir (Levemir FlexTouch) 100 UNIT/ML pen INJECT 60 UNITS SUBCUTANEOUSLY EACH MORNING for25 liothyronine (Cytomel) 25 MCG tablet 0.5 tablet on an empty stomach Orally two times daily. D.A.W. as Sigma or [employer] ONLY for 90 days 200 tablet [...] mass index (BMI) of 40.0-44.9 in adult ([facility]) Bronchitis Bruise of breast Cataract Colon polyps COVID-19 03/2021 Deviated nasal septum Diabetes mellitus ([facility]) Encounter for diabetic foot exam ([facility]) Family history of colon cancer Brother Fracture Rt orbital fracture, LUCIUS elbow fracture - shipped to [facility] 07/31/15. GERD (gastroesophageal reflux disease) History of being hospitalized 07/2015 [facility] - Post fall -rt orbital fx, [...] hyperglycemia, without long-term current use of insulin ([facility]) - POCT Glycated hemoglobin, total Advised pt that her HgbA1c remains well controlled at 6.4. Will continue to monitor. Follow up in about 3 months (around 04/10/2025) for Medicare Wellness Visit. documented in this encounterWestern Missouri Medical CenterLiotmpcprr58-86-2299 Telephone encounter Note* Telephone Encounter - Chelle Guallpa - 12/03/2024 1:46 PM EDT traMADol (Ultram) 50 MG tablet Ddm in [place] [facility] CenterBgwbmlgatv53-84-5029 Miscellaneous Notes* Telephone Encounter - Chelle Guallpa - 12/03/2024 1:46 PM EDT traMADol (Ultram) 50 MG tablet Ddm in [place] documented in this encounterWestern Missouri Medical CenterSierwvzego18-29-5313 Telephone encounter Note* Telephone Encounter - DINORA Lopez - 10/03/2024 1:36 PM EST OARRS reviewed, Rx sent into patient's pharmacy. [facility] [id number] Miscellaneous Notes* Telephone Encounter - DINORA Lopez - 10/03/2024 1:36 PM EST OARRS reviewed, Rx sent into patient's pharmacy. * Telephone Encounter - Chelle Guallpa - 10/03/2024 11:19 AM EST traMADol (Ultram) [facility] [place] She is calling a day early because [facility] to fill it. documented in this encounterWestern Missouri Medical CenterDiuzsggbln86-25-2503 Telephone encounter Note* Telephone Encounter - Chelle Guallpa - 10/03/2024 11:19 AM EST traMADol (Ultram) [facility] [place] She is calling a day early because [facility] takes about [facility] days to fill it. [facility] Cnsbzrwkgy53-24-1808 Telephone encounter Note* Telephone Encounter - Benita Busch - 09/03/2024 11:44 AM EST traMADol (Ultram) 50 MG tablet to drug [facility] CenterYqgjwfkcvw98-64-5836 Miscellaneous Notes* Telephone Encounter - Benita Busch - 09/03/2024 11:44 AM EST traMADol (Ultram) 50 MG tablet to drug [facility] documented in this encounterWestern Missouri Medical CenterOfuxswuexm06-60-0073 History of Present illness Narrative* DINORA Lopez - 08/28/2024 1:00 PM EST Images from the original note were not included. HPI Insomnia Additional comments: Pt states she had a bone stimulator placement surgery on 08/13/24 at [facility] and she is actually sleeping better at night. Last edited by Abigail Gonzalez LPN on 08/28/2024 1:13 PM. Subjective Patient ID: Konrad Guzman is a 79 y.o. female who presents [...] the evening. cholecalciferol (Vitamin D-3) 1.25 MG (59251 UT) tablet Vitamin D3 5000IU furosemide (Lasix) 40 MG tablet TAKE 1 TABLET (40 MG) BY MOUTH IN THE MORNING. 30 tablet 10 insulin detemir (Levemir FlexTouch) 100 UNIT/ML pen INJECT 60 UNITS SUBCUTANEOUSLY EACH MORNING for25 liothyronine (Cytomel) 25 MCG tablet 0.5 tablet on an empty stomach Orally two times daily. D.A.W. as [employer] or [employer] ONLY for 90 days 200 tablet [...] (BMI) of 40.0-44.9 in adult ([facility]) Bronchitis Bruise of breast Cataract Colon polyps COVID-19 03/2021 Deviated nasal septum Diabetes mellitus (CMS/[facility]) Encounter for diabetic foot exam ([facility]) Family history of colon cancer Brother Fracture Rt orbital fracture, LUCIUS elbow fracture - shipped to [facility] 07/31/15. GERD (gastroesophageal reflux disease) History of being hospitalized 07/2015 [facility] - Post fall -rt orbital fx, [...] for Medicare Wellness Visit. documented in this [facility]12-19-2024 Telephone encounter Note* Telephone Encounter - Chelle Guallpa - 08/02/2024 10:31 AM EST traMADol (Ultram) [address] [facility] [place] [facility] CenterTnedmtbevs65-84-3021 Miscellaneous Notes* Telephone Encounter - Chelle Guallpa - 08/02/2024 10:31 AM EST traMADol (Ultram) [address] [facility] [place] documented in this [facility]11-18-2024 Telephone encounter Note* Telephone Encounter - Chelle Guallpa - 07/02/2024 9:45 AM EST traMADol (Ultram) 50 MG tablet liothyronine (Cytomel) 25 MCG tablet Ddm in [place] [facility] CenterSlwvvgyodu40-16-0418 Miscellaneous Notes* Telephone Encounter - Chelle Guallpa - 07/02/2024 9:45 AM EST traMADol (Ultram) 50 MG tablet liothyronine (Cytomel) 25 MCG tablet Ddm in [place] documented in this encounterWestern Missouri Medical CenterUycoifdibm77-12-5913 Telephone encounter Note* Telephone Encounter - DINORA Lopez - 06/04/2024 4:27 PM EDT OARRS reviewed, Rx sent into patient's pharmacy. [facility] CenterQfasasxyez50-86-8413 Miscellaneous Notes* Telephone Encounter - DINORA Lopez - 06/04/2024 4:27 PM EDT OARRS reviewed, Rx sent into patient's pharmacy. * Telephone Encounter - Chelle Guallpa - 06/04/2024 3:51 PM EDT traMADol (Ultram) 50 MG tablet Ddm in [place] documented in this encounterWestern Missouri Medical CenterCnmwtmtaur56-18-3369 Telephone encounter Note* Telephone Encounter - Chelle Guallpa - 06/04/2024 3:51 PM EDT traMADol (Ultram) 50 MG tablet Ddm in [place] [facility] CenterKwakmaasiw88-89-2000 Telephone encounter Note* Telephone Encounter - Chelle Guallpa - 05/07/2024 1:39 PM EDT traMADol (Ultram) 50 MG tablet Ddm [place] [facility] CenterEpqtshomjb28-33-2038 Miscellaneous Notes* Telephone Encounter - Chelle Guallpa - 05/07/2024 1:39 PM EDT traMADol (Ultram) 50 MG tablet Ddm in [place] documented in this encounterWestern Missouri Medical CenterHaknqbbqkr79-58-7038 History of Present illness Narrative* Kofi Bowers MD - 04/09/2024 11:00 AM EDT Images from the original note were not included. Subjective : Chief Complaint: Konrad Guzman is an 78 y.o. female here for [...] same time. cholecalciferol (Vitamin D-3) 1.25 MG (43551 UT) tablet Vitamin D3 5000IU furosemide (Lasix) 40 MG tablet TAKE 1 TABLET (40 MG) BY MOUTH IN THE MORNING. 30 tablet 10 insulin detemir (Levemir FlexTouch) 100 UNIT/ML pen INJECT 60 UNITS SUBCUTANEOUSLY EACH MORNING for25 liothyronine (Cytomel) 25 MCG tablet 0.5 tablet on an empty stomach Orally two times daily. D.A.W. as [employer] or [employer] ONLY for 90 days 200 tablet [...] Do you have a medical power of attorney law clerk?: Yes Who is your medical power of attorney law clerk?: her son Objective : BP 115/65 Pulse [...] a living will and durable power of attorney law clerk for healthcare. We discussed telling ortiz people [...] complication, without long-term current use of insulin ([facility]) - POCT glycosylated hemoglobin (Hb A1C) docked device - Microalbumin / creatinine, urine ratio; Future Morbid (severe) obesity due to excess calories ([facility]) Essential (primary) hypertension ([facility]) Body mass index (BMI) 35.0-35.9, adult Peripheral vascular disease, unspecified (CMS/HCC) Iliopsoas bursitis of right hip - naproxen [...] on April 09, 2024 documented in this encounterWestern Missouri Medical CenterVdmzwyhtbl70-53-5146 Telephone encounter Note* Telephone Encounter - DINORA Lpoez - 04/04/2024 3:56 PM EDT OARRS reviewed, Rx sent into patient's pharmacy. [facility] CenterJzuclnsvjj12-21-4737 Miscellaneous Notes* Telephone Encounter - DINORA Lopez - 04/04/2024 3:56 PM EDT OARRS reviewed, Rx sent into patient's pharmacy. * Telephone Encounter - Chelle Guallpa - 04/04/2024 3:08 PM EDT traMADol (Ultram) 50 MG tablet DDM [place] documented in this encounterWestern Missouri Medical CenterWagdadllsf42-35-6198 Telephone encounter Note* Telephone Encounter - Chelle Guallpa - 04/04/2024 3:08 PM EDT traMADol (Ultram) 50 MG tablet DDM [place] [facility] CenterAuxiezpohn41-77-2712 Telephone encounter Note* Telephone Encounter - DINORA Lopez - 09/29/2023 12:33 PM EST OARRS reviewed, Rx sent into patient's pharmacy. [facility] CenterZzfeagmaqy45-19-6911 Miscellaneous Notes* Telephone Encounter - DINORA Lopez - 09/29/2023 12:33 PM EST OARRS reviewed, Rx sent into patient's pharmacy. documented in this encounterWestern Missouri Medical CenterEadjvppufa71-21-2253 Evaluation note* Encounter Date Diagnosis Assessment Notes Treatment Notes Treatment Clinical Notes Jun, Obstructive sleep apnea (ICD-10 - G47.33) Jun,hronic insomnia (ICD-10 - F51.04) [employer] Other 05-22-2023 NotePatient is here today to discuss medication Review of Systems Musculoskeletal: Positive for arthritis and back pain. All other systems reviewed and are negative.[facility] 01-03-2023 NoteCardiovascular Medicine [facility] SUBJECTIVE Chief Complaint Patient presents with Medication Problem Konrad Guzman is a 77 y.o. female here for [...] BID. She will be driving down to [place] this weekend for her high school reunion. Educated her to wear compression stockings in the car, get out and ambulate often, and perform leg pumps often while sitting. Last HPI per Oscar: Ms. Guzman is a 76-year-old patient with a past [...] Diagnosis Closed fracture of orbital floor (blow-out) ([facility]) Epiphora Fracture of orbit ([facility]) Fracture of radial neck Obesity Hypertensive disorder Pain in elbow MANOLO (obstructive sleep apnea) Diabetes ([facility]) Polyneuropathy Vitreous floaters of both eyes Venous hypertension of lower extremity Trigger thumb, left thumb Insomnia Osteopenia Peripheral venous insufficiency Non-seasonal allergic rhinitis Mixed hyperlipidemia nursing home current use of insulin ([facility]) Lipoprotein deficiency disorder History of fall History of colonic polyps GERD (gastroesophageal reflux disease) Family history of malignant neoplasm of gastrointestinal tract Failed back syndrome Ex-smoker ESS (euthyroid sick syndrome) Disability of walking Diabetic retinopathy associated with controlled type 2 diabetes mellitus ([facility]/HCC) Diabetic polyneuropathy associated with type 2 diabetes mellitus ([facility]/HCC) Type 2 diabetes mellitus with hyperglycemia ([facility]) Decreased estrogen level Continuous positive [...] tablet, Take 1 (more content not included)... [facility]03-02-2023 NoteCONSULTATION CONSULTATION DATE: 10/14/2022 HISTORY: This is [...] unless otherwise indicated. Patient is in agreement.[facility] CenterXaeepobi62-85-5437 NoteCardiology Clinic Note Subjective Konrad Guzman is a 77 y.o. year old female [...] use: Never Drug use: Never HPI: Ms. Guzman is a 76-year-old patient with a past [...] BUN 13, creatinine 0.84, (more content not included)...[facility]02-14-2023 NotePatient here for 1 mo follow up hypertension and medication changes. She was started on hydrochlorothiazide and losartan was increased back up to 100mg daily. She had BMP on 09/07. Review of Systems Musculoskeletal: Positive for back pain. All other systems reviewed and are negative.[facility] 08-31-2022 NotebloUnFostoria City Hospital01-17-2023 NotePatient here for 3 mo follow [...] Systems All other systems reviewed and are negative.[facility] 08-31-2022 NoteCardiology Clinic Note Subjective Konrad Guzman is a 77 y.o. year old female [...] use: Never Drug use: Never HPI: Ms. Guzman is a 76-year-old patient with a past [...] 119, BUN 13, creatinine (more content not included)...[facility] 07-14-2022 NoteCONSULTATION CONSULTATION DATE: 07/14/2022 HISTORY OF [...] in three months' time unless otherwise indicated.[facility] CenterKdkkiqgr26-94-7397 Evaluation note* Encounter Date Diagnosis Assessment Notes Treatment Notes Treatment Clinical Notes Jun, Obstructive sleep apnea (ICD-10 - G47.33) Patient was encouraged to continue regular use of CPAP as before, discussed chronic insomnia associated with sleep apnea and treatment options today at length as well Jun,hronic insomnia (ICD-10 - F51.04)Treatment options, including amitriptyline, indications, benefits and potential side effects were all discussed today [employer] Other 10-18-2022 NoteContinue to wear cpapUnFostoria City Hospital10-18-2022 NoteContinue amlodipine 10 mg daily- she recently ran out of 10 mg and this morning took 5 mg tablet she had from previous script. Continue coreg 25 mg bid, lasix 40 mg daily, losartan 50 mg daily and hydralazine 50 mg po bid.[facility]10-18-2022 Note Subjective Konrad Guzman is a 77 y.o. female. Chief Complaint: [...] Lab Review: Assessment/Plan There were no encounter diagnoses.[facility]10-18-2022 NoteHPI: Konrad Guzman is a 77 y.o. female here for [...] 28, CR 1.47 up from 0.85 on 3/22/22 10/4/22 BUN 23, CR 1.22 K+ 4.7- slightly [...] 3 months with repeat BMP for renal functionUnFostoria City Hospital09-26-2022 NoteI spoke with patient and informed her of medication changes per Veronica Gillespie CNP. RX sent to [facility] and BMP faxed to [facility]. Patient verbalized understanding. [facility]09-14-2022 NoteF/U with PCP for further managementUnFostoria City Hospital09-14-2022 NoteHypertension remains uncontrolled, will add aldactone [...] BUN 15, CR 0.85 normal K+ 4.8 normalUnFostoria City Hospital09-14-2022 NoteAdded in error and don't know how to get rid of itUnFostoria City Hospital08-25-2022 NoteCONSULTATION CONSULTATION DATE: 04/08/2022 HISTORY OF [...] in the office post procedure in May.[facility] CenterYwkjvlaq64-24-1738 NoteCONSULTATION CONSULTATION DATE: 02/10/2022 HISTORY OF PRESENT [...] plan of care and all questions answered. [facility] Signed and Approved by: BETZAIDA ZIMMER . 02/11/2022 13:38:00[facility]03-22-2022 NoteCONSULTATION PAIN MANAGEMENT CONSULTATION CHIEF COMPLAINT: Low [...] had three nerves released by Dr. Branch, wrap checker, in 2002. She states the pain has [...] would like to proceed. CC: Dr. Bowers [facility] Signed and Approved by: DR SERENITY GARCIA . 11/17/2021 11:24:00[facility] Hospitalaluation noteNort [employer] Other Evaluation noteNo assessment information available [facility] Work Phone: Evaluation note* Diagnosis Failed back syndrome Other unspecified back disorder documented in this encounter [facility] HealthcareEvaluation note* Diagnosis Failed back syndrome Other unspecified back disorder documented in this encounter [facility] HealthcareEvaluation note* Diagnosis Onset Date Resolution Status Admit Date Chronic insomnia acuteJune 29, 2024 11:30amOSA (obstructive sleep apnea)acuteJune 29, 2024 11:30am [facility] Work Phone: Evaluation note* Diagnosis Failed back syndrome Other unspecified back disorder Hypothyroidism, unspecified type (CMS/HCC) documented in this encounter [facility] HealthcareEvaluation note* Diagnosis Failed back syndrome Other unspecified back disorder documented in this encounter [facility] HealthcareEvaluation note* Diagnosis Routine general medical examination at health care facility- Primary Routine general medical examination at a health care facility ACP (advance care planning) Other specified counseling Type 2 diabetes mellitus without complication, without long-term current use of insulin ([facility]) Morbid (severe) obesity due to excess calories [...] Diabetes mellitus type 2 with neurological manifestations (CMS/[facility])- Primary Benign essential hypertension (CMS/HCC) Essential hypertension, benign Morbid (severe) obesity due to excess calories (CMS/[facility]) Body mass index (BMI) 35.0-35.9, adult documented [...] hyperglycemia, without long-term current use of insulin ([facility]) documented in this encounter [facility] HealthcareEvaluation note* Diagnosis Nausea- Primary Nausea alone documented in this encounter [facility] HealthcareEvaluation note* Diagnosis Nausea- Primary Nausea alone Type 2 diabetes mellitus with hyperglycemia, without long-term current use of insulin ([facility]) documented in this encounter [facility] HealthcareEvaluation note* Diagnosis Type 2 diabetes mellitus with hyperglycemia, with long-term current use of insulin ([facility])- Primary documented in this encounter [facility] HealthcareEvaluation note* Diagnosis Diabetes mellitus type 2 with neurological manifestations (HCC) Type 2 diabetes mellitus with hyperglycemia, 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 ([facility]) documented in this encounter [facility] HealthcareEvaluation note* Diagnosis Hypothyroidism, unspecified type Failed back syndrome Other unspecified back disorder documented in this encounter [facility] HealthcareEvaluation note* Diagnosis Routine general medical examination at health care facility- Primary Routine general medical examination at a health care facility ACP (advance care planning) Other specified counseling Diabetes mellitus type 2 with neurological manifestations (HCC) documented in this encounter [facility] HealthcareEvaluation note* Diagnosis Acute myofascial strain of lumbar region, initial encounter- Primary documented in this encounter [facility] HealthcareEvaluation note* Diagnosis Acute myofascial strain of lumbar region, subsequent encounter Need for vaccination Need for prophylactic vaccination and inoculation against unspecified single disease documented in this encounter [facility] HealthcareHistory general Narrative - ReportedNortConemaugh Memorial Medical Center [employer] Other History general Narrative - Reported* Type Description Date Medical History HTN Medical QckaxxrZS2Kkfsseb HistoryOsteoporosisMedical HistoryNeuropathyMedical HistoryhyperlipedemiaMedical HistoryHot Flashes/SweatsMedical HistorycopdMedical HistoryOSA (obstructive sleep apnea)Surgical HistoryBack surgery x Surgical [id number] Edkrvshfxhgztysmlxhyuj0670Wqzzgnyz History tsvxdehigmb2380Jucmsxql Historycataract surgerySurgical Historyeyes surgery Surgical Historyfacial cosmetic surgerySurgical HistoryHYSTERECTOMYSurgical HistorytonsillectomyHospitalization HistoryHeart Zixkvs4356Gyfyoiwdugvgfob Historysee above [facility] [employer] Other Chief Complaint and Reason for [...] MD Attending Provider Active Kofi Bowers II [facility] ProviderActive Team Status: Active Member Role Status Dates Kofi Bowesr II MD Primary Care Provider Active Team Status: Inactive Member Role Status Dates Kofi Bowers II MD Primary Care Provider Active Abdullahi Acosta MDAttjolanta ProviderActiveTeam MemberRelationshipSpecialtyStart DateEnd Date Kofi Bowers MD [address] [place] [address] PCP - GeneralInternal Medicine12/22/22Team MemberRelationshipSpecialtyStart Date End Date Kofi Bowers MD [address] [place] [address] [facility] - [facility] Medicine12/22/22 Team Status: Inactive Member Role Status Dates Kofi Bowers II MD Primary Care Provider Active Start: June 29, 2024 End: June 29, 2024Heidi Henrry , MANAGER COMPENSATION ACNP-BCAttending ProviderActiveStart: June 29, 2024 End: June 29, 2024Team MemberRelationshipSpecialtyStart DateEnd Date Kofi Bowers MD [address] [place] [address] PCP - [facility]Hon[facility] Centern[facility] Medicine12/22/22Team MemberRelationshipSpecialtyStart Date End Date Kofi Bowers MD [address] [place] [address] PCP - GeneralHonorhealth [facility] Centernal Medicine12/22/22Team MemberRelationshipSpecialtyStart Date End Date Kofi Bowers MD [address] [place] [address] PCP - GeneralHonorhealth [facility] Centernal Medicine12/22/22Team MemberRelationshipSpecialtyStart Date End Date Kofi Bowers MD [address] [place] [address] PCP - GeneralInternal Medicine12/22/22am MemberRelationshipSpecialtyStart Date End Date Kofi Bowers MD [address] [place] [address] PCP - GeneralInternal Medicine12/22/22am MemberRelationshipSpecialtyStart Date End Date Kofi Bowers MD [address] [place] [address] PCP - GeneralInternal Medicine12/22/22am MemberRelationshipSpecialtyStart Date End Date Kofi Bowers MD [address] [place] [address] PCP - GeneralInternal Medicine12/22/22am MemberRelationshipSpecialtyStart Date End Date Kofi Bowers MD [address] [place] [address] PCP - GeneralInternal Medicine12/22/22am MemberRelationshipSpecialtyStart Date End Date Kofi Bowers MD [address] [place] [address] PCP - GeneralInternal Medicine12/22/22am MemberRelationshipSpecialtyStart Date End Date Kofi Bowers MD [address] [place] [address] PCP - GeneralInternal Medicine12/22/22am MemberRelationshipSpecialtyStart Date End Date Kofi Bowers MD [address] [place] [address] PCP - GeneralInternal Medicine12/22/22am MemberRelationshipSpecialtyStart Date End Date Kofi Bowers MD [address] [place] [address] PCP - GeneralInternal Medicine12/22/22am MemberRelationshipSpecialtyStart Date End Date Kofi Bowers MD [address] [place] [address] PCP - GeneralInternal Medicine12/22/22am MemberRelationshipSpecialtyStart Date End Date Kofi Bowers MD [address] [place] [address] PCP - GeneralInternal Medicine12/22/22Team MemberRelationshipSpecialtyStart Date End Date Kofi Bowers MD [address] [place] [address] PCP - GeneralInternal Medicine12/22/22Team MemberRelationshipSpecialtyStart Date End Date Kofi Bowers MD [address] [place] [address] PCP - GeneralInternal Medicine12/22/22Team MemberRelationshipSpecialtyStart Date End Date Kofi Bowers MD [address] [place] [address] PCP - GeneralInternal Medicine12/22/22Team MemberRelationshipSpecialtyStart Date End Date Kofi Bowers MD [address] [place] [address] PCP - GeneralInternal Medicine12/22/22 Goals (unrecognized section and content) Goals may be documented in a n alternate sectionNo InformationGoals may be documented in an alternate sectionNo InformationGoals may be documented in an alternate section REASON FOR VISIT (unrecogniz ed section and content) ReasonOnset DateCommentsMed Ptkhad2609/29/2023[facility] CLYDEReasonOnset DateCommentsMed Kyplsk3606/04/2024easonOnset DateCommentsMed Fwehxw1807/02/2024 ReasonOnset DateCommentsMed Bmrcws3904/04/2024easonOnset DateCommentsMed Refill 05/07/2024easonOnset DateCommentsMed Weddot7708/02/2024easonCommentsInsomniaPt states she had a bone stimulator placement surgery on 08/13/24 at [facility] and she is actually sleeping better at night.ReasonOnset DateCommentsMed Zsqybm0710/03/2024 ReasonOnset DateCommentsMed Futtjl3212/03/2024ReasonCommentsNauseaReasonComments Med RefillReasonOnset DateCommentsMed Okndca4804/29/2025ReasonCommentsMedicare Annual Wellness Visit SubsequentDiscuss plan with medications: last visit pt was advised to stop metformin and trulicity and was started on samples of farxiga 5mg -- need to discuss plan going forward with meds-- sugars average 130-140 ReasonCommentsBack Pain INFORMATION SOURCE (unrecogn ized section and content) DATE CREATED AUTHOR 10/19/2022 [facility] DATE CREATED AUTHOR AUTHOR'S ORGANIZ ATION 01/27/2023 [facility] DATE CREATED AUTHOR AUTHOR'S ORGANIZ ATION 09/23/2023 [facility] DATE CREATED AUTHOR AUTHOR'S ORGANIZ ATION 03/20/2024 [facility] DATE CREATED AUTHOR AUTHOR'S ORGANIZ ATION 03/17/2025 [facility] DATE CREATED AUTHOR AUTHOR'S ORGANIZ ATION 04/22/2025 [facility] DATE CREATED AUTHOR AUTHOR'S ORGANIZ ATION 06/18/2025 [facility] EPIC FOR RECORDS PERTAINING TO [...] BE BASED ON THE PRIMARY CLINICAL RECORDS. [facility] provides no warranty or guarantee of the accuracy or completeness of information in this document.
[2025-06-24 09:02] VITALS: BP 134/63; PULSE 65; TEMP 36.7; O2SAT 98
[2025-06-24 09:51] VITALS: PULSE 76; PULSE 82; O2SAT 90; O2SAT 93
[2025-06-24 09:52] VITALS: BP 172/65
[2025-06-24] MEDS: LIDOCAINE HCL 2% 400 MG/20 ML MDV INJ (09:52)
[2025-06-24] MEDS: METHYLPREDNISOLONE ACETATE 40 MG/ML VIAL INJ (09:53)
[2025-06-24] MEDS: IOHEXOL 240 MG/ML - 10 ML VIAL INJ (09:53)
[2025-06-24] MEDS: BUPIVACAINE HCL 0.25% PF 25 MG/10 ML VIAL 2 ML INJ (09:53)
[2025-06-24 09:54] VITALS: BP 189/81
--- NOTE | 2025-06-24 09:58 | W.PM.PROCNOT ---
Date of procedure: 06/24/25 Pre-op diagnosis: Pain due to right sacroiliitis Post-op diagnosis: same as pre-op Procedure: Procedure: Right sacroiliac joint injection Medications: Bupivacaine 0.25% 3cc, depomedrol 40mg After informed consent was obtained, the patient was brought to the medical procedure unit and placed in the prone position, when a timeout was completed verifying correct patient, procedure, site, positioning, implant, and/or special equipment.? The skin overlying the area was prepped and draped in standard sterile fashion using alcohol.? A 25-gauge needle was inserted towards the right sacroiliac joint under direct fluoroscopic imaging.? Needle tip was advanced until the joint was encountered.? We instilled a total of 2 mL of solution.? Postoperatively needles were removed.? The patient tolerated the procedure well without complication.? The patient reported reduction in pain symptoms postoperatively. Anesthesia: Local Surgeon: Esperanza Maya Pathology: none sent Condition: stable Disposition: no change
== END 2025-06-24 09:59 | disposition home or self-care (01) ==
PROVIDERS: PCP Internal Medicine; Visit Provider Anesthesiology
DX: M46.1 Sacroiliitis, not elsewhere classified (principal); E11.9 Type 2 diabetes mellitus without complications
CPT/HCPCS: 27096; 36415; 82948; J0665; J1010; Q9966

== ENCOUNTER 2025-07-03 10:19 | Outpatient (OUT) | payer MEDICARE, SELFPAY ==
--- NOTE | 2025-07-03 10:54 | PM.CN ---
Consult Note: HPI Data of Consult Patient: known to practice within the last 3 years Consult date: 07/03/25 Requesting Physician: Zoila Kenyon NP Primary Care Provider: BELEN ZALDIVAR Consult Narrative Reason for consult: f/u Narrative: Cece Mobley a pleasant 80 year old female with chronic low back pain post thoracic/lumbar fusion and DPN presents for evaluation. no falls or injury since last visit. utilizing baclofen, zonegran, meloxicam, tramadol and tylenol with benefit. recently underwent right SIJ injection with significant ongoing relief, >75% imrovement in pain and functional ability. pain today 4/10 with standing, walking, baking, bending, adls. denies falls/injury since last visit. cc:: CC: Zoila Kenyon NP [facility] Medical History Facial trauma (~2017) ?S09.93XA - Unspecified injury of face, initial encounter (ICD-10) Chronic insomnia ?F51.04 - Psychophysiologic insomnia (ICD-10) Low iron ?E61.1 - Iron deficiency (ICD-10) Pneumonia ?J18.9 - Pneumonia, unspecified organism (ICD-10) Restless leg ?G25.81 - Restless legs syndrome (ICD-10) GERD (gastroesophageal reflux disease) ?K21.9 - Gastro-esophageal reflux disease without esophagitis (ICD-10) Activity intolerance ?R68.89 - Other general symptoms and signs (ICD-10) Extremity edema ?R60.0 - Localized edema (ICD-10) Diabetes ?E11.9 - Type 2 diabetes mellitus without complications (ICD-10) Hypothyroidism ?E03.9 - Hypothyroidism, unspecified (ICD-10) Low back pain ?M54.50 - Low back pain, unspecified (ICD-10) Osteoarthritis ?M19.90 - Unspecified osteoarthritis, unspecified site (ICD-10) Diabetes 1.5, managed as type 2 ?E13.9 - Other specified diabetes mellitus without complications (ICD-10) Sleep apnea ?G47.30 - Sleep apnea, unspecified (ICD-10) High cholesterol ?E78.00 - Pure hypercholesterolemia, unspecified (ICD-10) Hypertension ?I10 - Essential (primary) hypertension (ICD-10) Surgical History History of facial surgery (~2017) ?Z98.890 - Other specified postprocedural states (ICD-10) History of colonoscopy ?Z98.890 - Other specified postprocedural states (ICD-10) History of radiofrequency ablation (RFA) of nerve of lumbar spine ?Z98.890 - Other specified postprocedural states (ICD-10) S/P epidural steroid injection ?Z92.241 - Personal history of systemic steroid therapy (ICD-10) Previous back surgery ?Z98.890 - Other specified postprocedural states (ICD-10) History of cholecystectomy ?Z90.49 - Acquired absence of other specified parts of digestive tract (ICD-10) Hx of tonsillectomy ?Z90.89 - Acquired absence of other organs (ICD-10) History of appendectomy ?Z90.49 - Acquired absence of other specified parts of digestive tract (ICD-10) Family History Other Cancer Family history of coronary artery disease Family history of diabetes mellitus Family history of heart disease Family history of hypertension Social History Within the past year, how often did you have a drink containing alcohol: never Score interpretation: A score less than 3 is consistent with normal alcohol consumption. Smoking status: Never smoker Non-prescribed substance use: denies use Highest level of school completed/degree received: Associate degree: occupational, technical, vocational program Meds Home Medications and Allergies Home Medications ?Medication ?Instructions ?Recorded ?Confirmed ?Type acarbose 100 mg tablet 100 mg PO BID 10/19/23 06/24/25 History amlodipine 10 mg tablet 10 mg PO DAILY 10/19/23 06/24/25 History aspirin 81 mg capsule 81 mg PO DAILY 10/19/23 06/24/25 History furosemide 40 mg tablet 40 mg PO DAILY 10/19/23 06/24/25 History insulin detemir U-100 100 unit/mL 60 unit subcut DAILY 10/19/23 06/24/25 History (3 mL) subcutaneous pen (Levemir FlexPen) liothyronine 25 mcg tablet 12.5 mcg PO BID 10/19/23 06/24/25 History loratadine 10 mg tablet 10 mg PO DAILY PRN allergic 10/19/23 06/24/25 History symptoms losartan 100 1 tab PO DAILY 10/19/23 06/24/25 History mg-hydrochlorothiazide 25 mg tablet lovastatin 20 mg tablet 20 mg PO DAILY 10/19/23 06/24/25 History omeprazole 20 mg capsule,delayed 20 mg PO DAILY 10/19/23 06/24/25 History release quetiapine 50 mg tablet 50 mg PO DAILY 10/19/23 06/24/25 History tramadol 50 mg tablet 100 mg PO Q12H PRN pain 10/19/23 06/24/25 History acetaminophen 500 mg capsule 1,000 mg PO BID 07/18/24 06/24/25 History ascorbic acid (vitamin C) 500 mg 500 mg PO BID 07/18/24 06/24/25 History capsule calcium 600 mg (as 1 tab PO DAILY 07/18/24 06/24/25 History carbonate)-vitamin D3 5 mcg (200 unit) tablet (Calcium 600 + D(3)) cholecalciferol (vitamin D3) 125 5,000 unit PO DAILY 07/18/24 06/24/25 History mcg (5,000 unit) capsule vitamin B complex (B-Complex 1 tab PO DAILY 07/18/24 06/24/25 History tablet) vitamin E 268 mg (400 unit) capsule 268 mg PO BID 07/18/24 06/24/25 History baclofen 10 mg tablet 10 mg PO BID PRN muscle spasm 10/29/24 06/24/25 History zonisamide 50 mg capsule mg PO 02/19/25 History baclofen 10 mg tablet 10 mg PO TID PRN muscle spasm #90 03/14/25 06/24/25 Rx tabs Allergies Allergy/AdvReac Type Severity Reaction Status Date / Time iodine Allergy Severe Anaphylaxis Verified 06/24/25 08:57 levofloxacin (From Levaquin) Allergy Rash Verified 06/24/25 08:57 Exam Constitutional Documenting provider has reviewed patient's vital signs: yes Common normals: no apparent distress, oriented x3 and alert General appearance: cooperative HENMT Common normals: normocephalic, hearing grossly normal bilaterally and moist oral mucous membranes Head and scalp: normocephalic Eye Common normals: PERRL Pupil: PERRL Neck & C-Spine Common normals: full ROM General: normal visual inspection Chest Common normals: inspection of chest normal Respiratory Common normals: normal respiratory effort, no retractions and no use of accessory muscles Back & Pelvis Thoracic spine/upper back: no paraspinal muscle spasm Lumbar spine/lower back: ROM limited, pain with ROM, lumbar spinal tenderness and straight leg raise negative bilaterally; no paraspinal muscle tenderness and no paraspinal muscle spasm Sacroiliac joints: SI joints normal Other: sensation intact BLE strength 5/5 in BLE Neuro Common normals: oriented x3 Sensorium/orientation: alert Psych Common normals: mental status grossly normal, thought process normal, cooperative, affect normal, speech normal and activity/motor behavior normal Speech: normal speech Thought process: normal thought process Results Additional Findings Additional findings: If on a controlled substance or opioids, I have checked an [place] report on this patient and there are no aberrancies noted in the prescribing history.??If on a controlled substance or opioid a drug screen was completed and reviewed within the last year, and if there has not been a drug screen completed we ordered one today to monitor higher risk, state monitored pain medication use. As part of providing excellent, safe, comprehensive care, the following was completed at our patient's visit: 1. A medication reconciliation and review to ensure accurate knowledge of current/active medications, including asking our patients to inform us about any clvz-rxj-whjebpy medications or herbal remedies/nutritional supplements/alternative remedies. 2. A review to specifically ensure our patients have had annual screening for screening for depression, screening for tobacco use, and screening for unhealthy alcohol use. For concerning screenings had a discussion with the patient, provided patient education, and recommended follow-up with primary care provider when appropriate. If patient noted with a risk of falling, they received education on strength, gait, and balance training to prevent future risk of falling. Portions of this note may have been carried over from the previous visit and updated as appropriate. Please note this office utilizes paper charting in addition to the electronic medical record. A list of current medications, vitals, and PMH is available there as the clinical staff outside of myself do not have access to [employer] charting during the clinic day operations. As part of providing quality comprehensive care the current medications, vitals, and PMH were reviewed in the paper chart. Assessment and Plan Assessment and Plan (1) Sacroiliitis: (2) Failed back syndrome: Plan noting significant relief post right SIJ injection and >50% improvement ongoing with scs implant continue current medications, tolerating well without side effects f/u 3 months, sooner if needed
== END 2025-07-03 10:20 | disposition home or self-care (01) ==
LOC: PM 10:19
PROVIDERS: PCP Internal Medicine; Visit Provider Nurse Practitioner
DX: M46.1 Sacroiliitis, not elsewhere classified (principal); M96.1 Postlaminectomy syndrome, not elsewhere classified
CPT/HCPCS: G0463

== ENCOUNTER 2025-08-01 16:21 | Emergency (ER) | payer MEDICARE, SELFPAY ==
--- OUTSIDE RECORDS SUMMARY | 2025-07-21 08:27 | XMS_ITS | Continuity of Care Document ---
Demographics Address [address] [place] [address] Phone Phone Email Address [email or web address] Preferred Language Icelandic Marital Status Confucianism Affiliation Gnosticist Race White Additional Race(s) Unavailable Ethnic Group Not or Lati no Author Organization [facility] Address [address] [place] [address] Phone Care Team Providers Care Sheet Rock Applicator Name Role Phone Kofi Bowers II Primary Care Provider [phone] Meghann Verdin APRN Attending Provider Care Teams Patient Care Team Team Status: Active Member Role/Relationship Status Dates Kofi Bowers II MD Primary Care Provider Active Patient Care Team Team Status: Inactive Member Role/Relationship Status Dates Kofi Bowers II MD Primary Care Provider Active Start: July 21, 2025 End: July 21, 2025Patricismael Verdin APRN LOCKS INSPECTOR-CAttending Provider ActiveStart: July 21, 2025 End: July 21, 2025 Chief Complaint and Reason for Visit Chief Complaint Admit Date lower back spasm July 21, 2025 1 2:08pm Reason for Visit Admit Date Lumbar strain July 21, 2025 1 2:08pm Allergies, Adverse Reactions, Alerts Allergen Type Severity Reaction Last Updated Verified Status gemfibrozil Allergy Unknown muscle atrophy July 21, 2025 12:21pm Yes Active iodine Allergy Unknown anaphylaxis July 21, 2025 12:21pm Yes Active levofloxacin Allergy Unknown Unknown Reactio n, tendonopathy July 21, 2025 12:21pm Yes Active Iodinated Contrast Media Allergy Unknown Unknown Reaction July 21, 2025 12:21pm Yes Active Social History Smoking Status Status Start Date End Date Date of Observa tion Ex-smoker (finding) July 21, 2025 12:31pm Observation Status Observation Response Date of Response Legal Sex Female (finding) Sex Assigned At BirthFemaleSept1944 Family History Relationship Condition Age at Onset Recorded Date/T apple brother Diabetes mellitus Unknown HypertensionUnknownfatherDeceasedUnknownDiabetes mellitusUnknownMalignant neoplasmUnknownHeart diseaseUnknownHistory of strokeUnknownHypertensionUnknown motherMalignant neoplasm of colonUnknownMalignant neoplasmUnknownHypertension UnknownDeceasedUnknownsisterDeceasedUnknownsisterDeceasedUnknown Problems Active Problems Problem Diagnosis/Recorded Date Onset Date Stat MANOLO (obstructive sleep apnea) June 28, 2024 3:16 pm Unknown Active Chronic insomnia June 28, 2024 3:16pm Unknown Active RLS (restless legs syndrome) June 29, 2024 12:40 pm Unknown Active Medications Medication Status Dose Units Route Directions Qty Days Refills S tart Date Stop Date End Date Reason(s) Instructions Adherence Furosemide 40 mg tablet Active 1 TAB PO Daily June 12, 2018 11:00pmComplies with drug therapyClonidine Hcl 0.1 mg tablet Lpnswnwdiebv0HFIMZXwqfc dailyOctking's [facility] 2017 [facility]pm[facility] 2024 12:29pmMetoprolol Succinate 50 mg tablet extended release 24 xkCncculgnygth8SFI POTwice dailyOctking's daughters medical center 2017 11:[facility]pm[facility] 2024 12:30pmTramadol 50 mg xpbyviGudspuhrqjip8YOVEWI4Z as needed for PainOctking's daughters medical center 2017 11:00pm[facility] 2024 12:30pmPotassium Chloride 20 mEq tablet,ER particles/crystals Ptmzeguqhrys2JYUXGZMLQnyaoVnbepda 2017 11:00pm[facility] 2024 12:30pm Amlodipine 10 mg xvkjmdEbssmnnvxdkz3QVSEWWdsyqJiioxjn 2017 11:00pm[facility] 2024 12:30pmAcarbose 100 mg fzmygzHuabqk1IUETCAfmts dailyOctking's daughters medical center 2017 11:00pmComplies with drug therapyOmeprazole 20 mg capsule,delayed release(DR/EC) Ficeuu7AGATIDddayWglsbog 2017 11:00pmComplies with drug therapyLovastatin 20 mg sjsdtpZyxgirmjhahi5YQMHVPpahdVkololz 2017 11:00pmDe2024 12:30pmLosartan 100 mg dhdxuiBhcrcdotwcpj2ZDHRAKnxwdOlxsgbd 2017 11:00pm July 21, 2025 12:23pmQuetiapine 50 mg jgbzxdXzogpx2FMGZAZphebtnGnqlnwf 2017 11:00pmComplies with drug therapyLiothyronine 25 mcg tabletActive0.5 TABPODailyOctking's daughters medical center 2017 11:00pmComplies with drug therapyMetformin 1,000 mg xymvcvNscqhlwzknpu4UNSWTTxaej dailyOctking's daughters medical center 2017 11:00pmDe2024 12:30pmDuloxetine 60 mg capsule,delayed release(DR/EC)DiscontinuedOctking's daughters medical center 2017 11:00pmce2024 12:29pmPregabalin 100 mg elaxityLccjdxnyyyza9ZZA POTwice dailyOctking's daughters medical center 2017 11:00pm2024 12:30pmQuetiapine 50 mg tabletDiscontinuedOctking's daughters medical center 2017 11:00pm2024 12:30pmInsulin Detemir U-100 100 unit/mL (3 mL) insulin penDiscontinued0.ROUTE.COMPLEXOct2017 11:00pmce2024 12:30pmas directedMelatonin 5 mg Capsule DiscontinuedOct2017 11:00pm2024 12:30pmLoratadine 10 mg EiaglfdMhanrb8JHNHETdmujDkynmuo 2017 11:00pmComplies with drug therapy Biotin 5,000 mcg Tablet, IvvflqjkomFcikrlyzngoy3ZTEKAWMDCZWJPQygxkTerqxdo 2017 11:00pmva [facility] center2024 12:29pmTramadol 50 mg bnsgqlYnyikl380VJRKGbsbn daily as needed for PainDe2024 12:22pmComplies with drug therapy Amlodipine 10 mg owiapzQaxtzh77BYXWRtkblLokvyusk 7th, 2025 12:23pmComplies with drug therapyAcetaminophen 500 mg daebndGsyssj3588IYXXQtjwj 6 hours as needed July 21, 2025 12:00amComplies with drug therapyLosartan-Hydrochlorothiazide 100-25 mg ukgzhsWiexcp4ZQZHDDzvszMbrumnmo 7th, 2025 12:00amComplies with drug therapyCyanocobalamin (Vitamin B-12) (Vitamin B-12) 500 mcg dmviehQcewpi140FDDMF Daily2024 12:00amComplies with drug therapyBaclofen 10 mg tablet Bsplzq44WGHCSxhdk at bedtimeSanta [facility] Hospital2024 12:00amComplies with drug therapy Ascorbate Calcium (Vitamin C) 500 mg qgdcnoUjusdn909JMVPSfawwDnsixvdi 2024 12:00amComplies with drug therapyAspirin 81 mg csmvstOszcpf17TNWJMatroPlzkgjvn 2024 12:00amComplies with drug therapyCholecalciferol (Vitamin D3) 25 mcg (1,000 unit) aopoidqRomwgt97LJPHKHvmyxNknoqbmd 2024 12:00amComplies with drug therapyInsulin Glargine (Lantus Solostar U-100 Insulin) 100 unit/mL (3 mL) insulin yqkBxkqlc46KGOHONWAZPIrtaSzlsxmmi 7th, 2025 12:00amComplies with drug therapyVitamin E Mixed [address] [facility]2024 12:00am Complies with drug ntgwgfmHl-V9-Ffv Ac-Ysgw-Vrc-Arben-Bor (Calcium 600-D3 Plus (Mag-Zinc)) 600 mg calcium- 20 mcg-50 mg qhnytvOiovlg4YEJYXPugsb dailyFormerly [facility]2024 12:00amComplies with drug therapyEmpagliflozin (Jardiance) 10 mg ppltlxVrniaq71ZGPJTwjynDpazfxhk 2024 12:00amComplies with drug therapy Vital Signs Vital Reading Result Reference Range Collection Date/Time Height 60 [in_i] July 21, 2025 12:39utNggkaf01.14 kgDev[facility]2024 12:19pmBody Vhubjzaqyfz07.8 [degF]97.6-99.0[facility] cent[facility] 7th, 2025 12:19pmHeart Rate87 /gbk49-074 July 21, 2025 12:19pmRespiratory rate18 /ueq17-72AqnixqeqJuly 21, 2025 12:19pm Oxygen saturation by Pulse %95-100July 21, 2025 12:19pmBP Vpochevj402 mm[Hg]100-140July 21, 2025 12:19pmBP Msqbmljll54 mm[Hg]60-100 July 21, 2025 12:19pmBMI (Body Mass Index)37.5 kg/d5CbxwpvziJuly 21, 2025 12:19pm Advance Directives Advance Directive Response Recorded Date/ Time Advance Directives No June 05, 2025 12:18pm Insurance Providers Guarantor Cece Mobley Address [address] [facility] [address] Info.Home Phone: Coverage Status Update:2024 Payer Group Member ID Coverage Type Subscriber Relationship to Subscriber Effective Date Expiration Date Kaden MART/CHARLIE [id number] G Poore Id: [id number] [address] [facility] [address] Home Phone: Email: [email or web address] Retired Id: [id number] G Poore Id: [id number] [address] [facility] [address] Home Phone: Email: [email or web address] Encounters Encounter Location(s) Arrival/Admit Date Discharge/Departure Date Discharge/Departure Disposition Provider(s) Departed Physician/ Provider Office Visit -[facility] July 21, 2025 12:08pm July 21, 2025 1:26pm Discharged to home care or self care (routine discharge) Meghann Verdin APRN Recent Diagnosis Onset Date Admit Date Lumbar strain Unknown July 21 12:08pm Assessments Diagnosis Onset Date Resolution Status Admit Date Lumbar strain noneactiveDe2024 12:08pm
[2025-08-01 16:48] VITALS: BP 138/60; PULSE 63; TEMP 36.6; O2SAT 98; BMI 35.2
--- OUTSIDE RECORDS SUMMARY | 2025-08-01 17:38 | XMS_ITS | Clinical Summary ---
Author Organization [facility] Address [address] [place] [address] Care Team Providers Care School Fundraising Director Name Role Phone Kofi Bowers MD Primary Care Provider [phone] Allergies Active AllergyReactionsCriticalityNoted DateCommentsIodineShortness of breath High12/14/20221884NweplnvzxomgSpcve45/02/5450IbhqxibwypFwiwxiggs96/02/2023Shellfish PadedqeGkavgjhx09/12/2014 Medications MedicationSigDispense QuantityRefillsLast FilledStart DateEnd DateStatus aspirin [...] same time.Active cholecalciferol (Vitamin D-3) 1.25 MG (91070 UT) tablet Vitamin D3 5000IUActive Calcium Citrate-Vitamin [...] capsule Take 50 mg by mouth at ufryvbi23/02/2025Active Glucose Blood (Blood Glucose Test) strip Indications:Type 2 diabetes mellitus with hyperglycemia, without long-term current use of insulin ([facility])1 each by In Vitro route Daily 100 strip 5Active Blood Glucose Monitoring Suppl (Blood Glucose Monitor System) w/Device kit Indications:Type 2 diabetes mellitus with hyperglycemia, without long-term current use of insulin ([facility])1 each Daily 1 kit 5Active Lancets 30G [facility] [place] Indications:Type 2 diabetes mellitus with hyperglycemia, without long-term current use of insulin ([facility])1 each Daily 100 each 5Active Alcohol Swabs (Alcohol Prep) 70 % pads Indications:Type 2 diabetes mellitus with hyperglycemia, without long-term current use of insulin ([facility])1 Pad Daily 100 each 5Active pen needle 32G x 4 mm misc Indications:Type 2 diabetes mellitus with hyperglycemia, with long-term current use of insulin ([facility])Inject 1 each under the skin Daily 100 each 5Active empagliflozin (Jardiance) 10 MG Indications:Diabetes mellitus type 2 with neurological manifestations (HCC)Take 1 tablet (10 mg) by mouth Daily 30 tablet [id number] liothyronine (Cytomel) 25 MCG tablet Indications:Hypothyroidism, unspecified type0.5 tablet on an empty stomach Orally two times daily. D.A.W. as Sigma or GreenSendTask Brand ONLY for90 days 200 tablet 5Active insulin glargine (Lantus SoloStar) 100 UNIT/ML pen Indications:Type 2 diabetes mellitus with hyperglycemia, with long-term current use of insulin (HCC)Inject 60 Units under the skin in the morning. 15 mL 5Active traMADol (Ultram) 50 MG tablet Indications:Failed back syndromeTake 1 tablet (50 mg) by mouth every 6 (six) hours if needed for severe pain 120 tablet 506Active tiZANidine (Zanaflex) 4 MG tablet Indications:Acute myofascial strain of lumbar region, subsequent encounterTake 1 tablet (4 mg) by mouth every 8 (eight) hours if needed for muscle spasms 30 tablet 5Active tiZANidine (Zanaflex) 4 MG tablet Indications:Acute myofascial strain of lumbar region, subsequent encounterTake 1 tablet (4 mg) by mouth every 8 (eight) hours if needed for muscle spasms 30 tablet Discontinued(Reorder) Active Problems ProblemNoted DateDiagnosed DateMorbid (severe) obesity due to excess calories 08/28/2024Restless leg zvluaowy55/05/0982Uhcoips46/14/2024Ectropion of lower nhcktq8103/11/2023losed fracture of orbital floor (blow-out)03/11/2023iplopia 03/11/2023 Overview (03/11/2023): Removal Reason: Resolved. Fracture of orbit03/11/2023Fracture of radial neck03/11/2023ain in elbow 03/11/2023Venous hypertension of lower kfarkapjs44/09/2023denomatous polyp of ascending colon12/14/2022enign essential auivcvmjnbja60/02/2023hronic fatigue 12/14/2022hronic pain kleqzqwh71/02/2023ontinuous positive airway pressure ieshetylk58/02/2023ecreased estrogen level12/14/2022iabetes mellitus type 2 with neurological shnjldrkousxvy11/02/2023Type 2 diabetes mellitus with eystedpfneaeq60/02/2023iabetic retinopathy associated with controlled type 2 diabetes hcogvweq92/02/2023ifficulty in walking, not elsewhere classified 12/14/2022ESS (euthyroid sick syndrome)12/14/2022Failed back hgngjaig47/02/2023 GERD (gastroesophageal reflux disease)12/14/2022Sleep initiation disorder 12/14/2022Mixed ikpqlwfeytzkab86/02/2023Non-seasonal allergic /02/2023 Hntyfvalnr05/02/2023eripheral vascular zrzxjnn4412/14/2022eripheral venous twhouvqeusfmu19/02/2023Trigger thumb, left thumb12/14/2022Vitreous floaters of both eyes12/14/20226003Oaaapkat32/25/2022cquired trigger wvziik3601/15/2021ody mass index (BMI) 35.0-35.9, adult04/21/2020OSA (obstructive sleep apnea)04/11/2019 Overview (03/11/2023): Last Assessment & Plan: Continue to wear cpap Benign neoplasm of colon06/27/2018History of colonic guomsb1906/01/2018Family history of malignant neoplasm of gastrointestinal tract06/01/2018Lipoprotein deficiency jomvmwjf10/17/2018Long term current use of ipyljim5901/28/2016 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[facility])11/25/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-erowyi5810/22/2015History of fall10/02/20151612Deamnrkc91/27/2015Diabetic polyneuropathy associated with type 2 diabetes yiufxatb30/01/2699Wpzvcydd70/12/0011Cfzgmjicgbwptw15/12/2014 Resolved Problems ProblemNoted DateDiagnosed DateResolved DateLow HDL (under 40)12/14/2022 12/14/2022 Encounters DateTypeDepartmentCare FlobWpzofxdtfgf55/18/2025[facility]phone [facility] [place] [facility] [address] [place] [address] Kofi Bowers MD 07/29/2025Refill [facility] [place] [facility] [address] [place] [address] Kofi Bowers MD Acute myofascial strain of lumbar region, subsequent mykpmaaxz23/11/2025 Telephone [facility] [place] [facility] [address] [place] [address] Kofi Bowers MD 07/22/2025bstract [facility] [place] [facility] [address] [place] [address] Kofi Bowers MD 07/01/2025Refill [facility] [place] [facility] [address] [place] [address] Kofi Bowers MD Type 2 diabetes mellitus with hyperglycemia, with long-term current use of insulin (HCC); Failed back /03/2025 11:30 AM ESTOffice Visit [facility] [place] [facility] [address] [place] [address] Kofi Bowers MD Acute myofascial strain of lumbar region, subsequent encounter; Need for zoeedjuoycq86/03/2025amboo flowsheet [facility] [place] [facility] [address] [place] [address] Kofi Bowers MD 06/17/20257566Lkogwm49/24/2025Telephone [facility] [place] [facility] [address] [place] [address] Kofi Bowers MD 06/06/2025 9:00 AM EDTOffice Visit [facility] [place] [facility] [address] [place] [address] Kofi Bowers MD Acute myofascial strain of lumbar region, initial encounter (Primary Dx) 5Bamboo flowsheet [facility] [place] [facility] [address] [place] [address] Kofi Bowers MD 06/06/20256903Eaozgv20/07/2025bstract [facility] [address] [facility] [address] [place] [address] Kofi Bowers MD 05/13/2025[facility] [address] [facility] [address] [place] [address] Kofi Bowers MD 05/06/2025bstract [facility] [address] [facility] [address] [place] [phone] Kofi Bowers MD from Last 3 Months Immunizations ImmunizationAdministration DatesNext DueABRYSVO - Respiratory syncytial virus (RSV), vaccine, bivalent, protein subunit RSV prefusion F, diluent reconstituted, 0.5 mL, PF06/20/2024Influenza, High Dose Seasonal, Preservative Free06/17/2025,06/20/2024,09/15/2020Influenza, High-dose Seasonal, Quadrivalent, Preservative Free06/06/2023Influenza, Recombinant, injectable, preservative free 05/15/2020Influenza, injectable, MDCK, preservative free, ndrpeqmctxvq82/06/2021 Influenza, injectable, quadrivalent, preservative free06/15/2019,05/22/2018, 08/02/2015Pneumococcal Polysaccharide WFJY7432Td (adult), 5 Lf tetanus toxoid, preservative free, /17/2015Zoster, Szjrulelxum03/29/2025, 12/07/2024 Family History Medical HistoryRelationNameCommentsCancerBrotherColon ; Didn't indicate which brother among the 3Heart diseaseBrotherPassed ; Didn't indicate which brother among the 3Kidney problemBrotherPassed ; Didn't indicate which brother among the 3CancerFatherDiabetesFatherHeart diseaseFatherHypertensionFatherCancerMother Colon CancerCancerOtherSpouse: Prostate that metastisized to bone ; Eryhtroid LeukemiaDiabetesSonTourette gpmnibetDcuYoxdprddNqwnMapzdcIlfyfaquRbnrqocl6Msyseq MargwsigHoqqruBucfeatlPsmtjEqhsfvdnCujxqeb5KgzTgwmq Social History Tobacco UseTypesPacks/DayYears UsedDateSmoking Tobacco: FormerCigarettesQuit: 08/15/1999Smokeless Tobacco: Never Tobacco Cessation:Counseling Given: Yes Alcohol UseStandard Drinks/WeekCommentsNot Currently0 (1 standard drink = 0.6 oz pure alcohol)Caffeine: 1-2 cups per day; none soda/popPHQ-2AnswerDate Recorded Patient Health Questionnaire-2 Embxi468CommentsUnknownSex and Gender InformationValueDate RecordedSex Assigned at BirthNot on fileLegal Sex Efsblw5210/27/2022 6:38 PM EDTGender IdentityNot on fileSexual OrientationNot on file Last Filed Vital Signs Vital SignReadingTime TakenCommentsBlood Ghacbokj487/6006/17/2025 11:32 AM EST Gdxlg232706/17/2025 11:32 AM JUEXwloopkklsc52.4 ??C (97.5 ??F)02/08/2025 11:07 AM EDTRespiratory Kmtn742308/17/2024 11:32 AM ESTOxygen Rwpdgxncjy69%06/17/2025 11:32 AM ESTInhaled Oxygen Concentration--Gwhlyj38 kg (194 lb)06/17/2025 11:32 AM EST Wkrcdb015.4 cm (5')06/17/2025 11:32 AM ESTBody Mass Index37.8906/17/2025 11:32 AM EST Plan of Treatment DateTypeDepartmentCare Team (Latest Contact Info)Uuadcwpwscu77/30/2026 11:30 AM EDTOffice Visit [facility] [place] [facility] [address] [facility] [address] [place] [address] Kofi Bowers MD [address] [facility] [address] [place] [address] Health MaintenanceDue DateLast DoneCommentsPneumococcal Vaccine: 65+ Years (2 of 2 - PCV)COVID-19 Vaccine ( - 2024- season)2025 10/01/2020, 1Diabetes: Hemoglobin A1C5004/17/2025, 03/07/2025, 01/14/2025, Additional history existsMedicare Annual Wellness (AWV)04/17/2026 04/17/2025, 04/09/2024, 01/03/2023, Additional history existsDiabetes: Urine Protein Poszlnwew37/12/2024, 04/09/2024, 01/18/2024, Additional history existsDiabetes: Retinopathy Uylppxngg86/, 05/03/2024, 04/28/2020, Additional history existsInfluenza OpgdrbxDglxccatb80/03/2025, 06/20/2024, 06/06/2023, Additional history exists Procedures Procedure NamePriorityDate/TimeAssociated DiagnosisCommentsDIABETIC RETINOPATHY SCREENING - OU - BOTH MRIBNugsncw55/22/2025 MICROALBUMIN / CREATININE URINE APXWZWjurxrq02/05/2025 9:53 AM EDT Diabetes mellitus type 2 with neurological manifestations (HCC) POCT GLYCATED HEMOGLOBIN, FQELJKuccfuw08/03/2025 11:24 AM EDT Diabetes mellitus type 2 with neurological manifestations (HCC) from Last 3 Months or Most Recently Relevant to Health Maintenance Results * Diabetic Retinopathy Screening - OU - Both Eyes (05/06/2025)ComponentValueRef RangeTest MethodAnalysis TimePerformed AtPathologist SignatureRESULTSndr Anatomical RegionLateralityModalityHeadOtherSpecimen (Source)Anatomical Location / LateralityCollection Method / VolumeCollection TimeReceived Time 05/06/2025 Narrative Authorizing ProviderResult TypeResult StatusDanimargy Bowers MDLAKELAND [facility] PHOTOGR[facility] Final Result * Microalbumin / creatinine urine ratio (04/19/2025 9:53 AM EDT)ComponentValue Ref RangeTest MethodAnalysis TimePerformed AtPathologist SignatureCREATININE, RANDOM [id number] - 275 mg/dLQUESTALBUMIN, URINE0.3See Note: mg/dLQUESTComment: Reference [...] specimen obtained by clean catch procedure / Nrurupf8704/19/2025 9:53 AM EDT04/19/2025 9:53 AM EDT Narrative [facility] - 2025 11:17 AM EDT FASTING:YES FASTING: YES Resulting Agency Comment Performing Organization Information ?Site ID: [id number] ?Name: [facility] ?Address: [address] [place] [address], [address] [place] [id number] ?Director: Cezar Singh MD Authorizing ProviderResult TypeResult StatusKofi Bowers MDLAB URINE ORDERABLESFinal ResultPerforming OrganizationAddressCity/State/ZIP CodePhone Number [facility] * POCT Glycated hemoglobin, total (04/17/2025 11:24 AM EDT)ComponentValueRef RangeTest MethodAnalysis TimePerformed AtPathologist SignatureHemoglobin A1C 7.8Specimen (Source)Anatomical Location / LateralityCollection Method / Volume Collection TimeReceived QdbwGswtm22/03/2025 11:24 AM EDT Narrative Authorizing ProviderResult TypeResult Jorge Luis Bowers MDPOINT OF CARE TEST ENTER/EDIT ORDERABLESFinal Result from Last 3 Months or Most Recently Relevant to Health Maintenance Insurance Care Teams Team MemberRelationshipSpecialtyStart DateEnd Date Kofi Bowers MD [address] [facility] [address] [place] [address] PCP - GeneralInternal Medicine12/22/22
--- OUTSIDE RECORDS SUMMARY | 2025-08-01 17:38 | XMS_ITS | Clinical Summary ---
Author Organization [facility] Address [address] [place] [address] Care Team Providers Care Building Contractor Name Role Phone Kofi Bowers MD Primary Care Provider [phone] Allergies Active AllergyReactionsCriticalityNoted DateCommentsIodineAnaphylaxisHigh 04/08/20229991Duneufxcxvvx50/25/2022regabalinDizziness,Ztshvyg9802/24/2021hellfish Containing FdqhyyckQucxvmfj82/12/2014 Medications MedicationSigDispense QuantityRefillsLast FilledStart DateEnd DateStatus acarbose [...] Problems ProblemNoted DateDiagnosed DateVenous hypertension of lower gpllfugfs39/09/2023 Trigger thumb, left thumb12/14/20229575Dbedxfbesj69/02/2023Failed back syndrome 12/14/2022ecreased estrogen level12/14/2022denomatous polyp of ascending colon 12/14/2022OSA (obstructive sleep apnea)04/28/2022 Assessment & Plan (06/01/2022 2:23 PM EDT): Continue to wear cpap Assessment & Plan (04/28/2022 2:06 PM EDT): F/U with PCP for further management Closed fracture of orbital floor (blow-out)04/08/20224497Dducoboh52/25/2022Fracture of orbit04/08/2022Fracture of radial neck04/08/2022ain in elbow04/08/2022 Hypertensive wmpaotep14/30/2021 Assessment & Plan (06/01/2022 2:21 PM EDT): [...] 0.85 normal K+ 4.8 normal Acquired trigger bawqqz0601/15/2021Non-seasonal allergic twfylydf46/25/2021 Vitreous floaters of both eyes04/29/2020Diabetic retinopathy associated with controlled type 2 diabetes cncenvas60/15/2020Continuous positive airway pressure acqvxyhnm73/18/2020Failed back pcdrruww80/04/2018Benign neoplasm of colon 06/27/2018History of colonic erylni8906/01/2018Family history of malignant neoplasm of gastrointestinal tract06/01/2018Lipoprotein deficiency disorder 05/01/2018Long term current use of gmmidyk7301/28/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 fwbukcf0211/25/2015Ex-ucekzh8410/22/2015History of fall10/02/2015Disability of mdiabsv9610/02/20158244Segrizua46/27/2015Mixed pfdqzdbgmiykaz57/27/2015GERD (gastroesophageal reflux disease)06/10/2015ESS (euthyroid sick syndrome) 06/10/2015Type 2 diabetes mellitus with /27/2015Chronic pain aersbyff27/27/2015Chronic ddbtatr2706/10/2015Benign essential hypertension 06/10/20154100Kwemygbgcl74/27/2015Peripheral venous pixytenfknxua92/01/2015Diabetic polyneuropathy associated with type 2 diabetes hmhofoip79/01/2015Obesity 01/24/20146787Ukhjqorc78/12/9076Bgsqolhzucaukk64/12/2014 Immunizations ImmunizationAdministration DatesNext DueInfluenza, High Dose Seasonal, Preservative Free09/15/2020,05/15/2020Influenza, injectable, MDCK, preservative free, elztyqoplxzp02/06/2021Influenza, injectable, quadrivalent, preservative free06/15/2019,05/22/2018Influenza, seasonal, zmzqkplcug11/14/2019Unspecified Sars-Cov-2 Hxpneuzuyuv98/17/2021,09/10/2020 Family History Medical HistoryRelationNameCommentsCoronary artery diseaseBrotherCoronary artery [...] ValueDate RecordedSex Assigned at BirthNot on fileLegal PzjJmhejr24/29/2022 11:38 PM EDTGender IdentityNot on fileSexual OrientationNot on file Last Filed Vital Signs Vital SignReadingTime TakenCommentsBlood Seybegbe755/78001/03/2023 11:10 AM EDT Tfwcy5254/22/2023 11:10 AM EDTTemperature--Respiratory Rate--Oxygen Saturation 98%01/03/2023 11:10 AM EDTInhaled Oxygen Concentration--Bzwpyf48.9 kg (189 lb 6.4 oz)01/03/2023 11:10 AM WPWVhtoki488.4 cm (5')01/03/2023 11:10 AM EDTBody Mass Index36.9901/03/2023 11:10 AM EDT Plan of Treatment Health MaintenanceDue DateLast DoneCommentsDiabetes: Hemoglobin A1C1945 Medicare Annual Wellness (AWV)1945Diabetes: Retinopathy Screening 1955Depression Cdpomzwrr90/06/1957Fall Risk Vgoidjbpc37/06/2010 Pneumococcal Vaccine: 50+ Years (2 of 2 - PCV)Diabetes: Urine Protein Rmerfxphw96, 01/19/2018, 10/28/2016, Additional history existsZoster Vaccines (2 [...] Mobley TypeRelation to PatientDate of BirthPhone Billing AddressPersonal/YhjaubWvvi1945 [address] [place] [address] Care Teams Team MemberRelationshipSpecialtyStart DateEnd Date Kofi Bowers MD [address] [place] [address] [facility]04/07/22
--- OUTSIDE RECORDS SUMMARY | 2025-08-01 17:38 | XMS_ITS | Clinical Summary ---
Author Organization [facility] Address [facility] [place] [address] Care Team Providers Care Burglar Alarm Mechanic Name Role Phone Unavailable Primary Care Provider Unavailabl e Allergies Active AllergyReactionsCriticalityNoted SzsiPieixkpqIhnuzdMhniafmp47/12/2014 CdgbqipzdIetndocv80/12/2014 Medications MedicationSigDispense QuantityRefillsLast FilledStart DateEnd DateStatus meloxicam [...] to affected area.Active Active Problems ProblemNoted DateDiagnosed PlxtSjlawvddxdwdtm11/12/4986Bkqimpjx31/12/2014Obesity 01/24/2014 Social History Tobacco UseTypesPacks/DayYears UsedDateSmoking Tobacco: Never Assessed CommentsUnknownSex and Gender InformationValueDate RecordedSex Assigned at Not on fileLegal EphAgxcrq64/02/2012 10:41 AM ESTGender IdentityNot on file Sexual OrientationNot on file Last Filed Vital Signs Vital SignReadingTime TakenCommentsBlood Ethiwwgw286/6006 12:45 PM EDT Ofavj7822 12:45 PM EDTTemperature--Respiratory Rate--Oxygen Saturation-- Inhaled Oxygen Concentration--Weight--Height--Body Mass Index-- Plan of Treatment Health MaintenanceDue DateLast DoneCommentsAnxiety Pcqgsgpju66/06/1963Depression Gaqqpigon71/06/1963DTaP,Tdap,Td Vaccine (1 - Tdap)1964Diabetes Screening 1990Pneumococcal Vaccine: 50+ (1 of 1 - PCV)1995Shingrix Vaccine (1 of 2)1995Bone Density Yuyunlrkp10/06/2010RSV Vaccine (1 - 1-dose 75+ series)2020Advance Directive Jofbxdtgrd86/01/2025ovid-19 Vaccine (1 - 2024-26 season)2025Influenza Vaccine (#1)2025 Insurance
--- OUTSIDE RECORDS SUMMARY | 2025-08-01 17:38 | XMS_ITS | Encounter Summary ---
Author Organization [facility] Address [address] [facility] [place] [address] Care Team Providers Care Site Inspector Name Role Phone Kofi Bowers MD Primary Care Provider [phone] Reason for Visit * ReasonOnset DateCommentsMed Jwleaa0807/29/2025 Encounter Details DateTypeDepartmentCare Team (Latest Contact Info)Flcbwibbtkt55/15/2025Refill [facility] [place] [facility] [address] [facility] [address] [place] [address] Kofi Bowers MD [address] [facility] [address] [place], [place] [address] Acute myofascial strain of lumbar region, subsequent encounter Social History Tobacco UseTypesPacks/DayYears UsedDateSmoking Tobacco: FormerCigarettesQuit: 08/15/1999Smokeless Tobacco: NeverAlcohol UseStandard Drinks/WeekCommentsNot Currently0 (1 standard drink = 0.6 oz pure alcohol)Caffeine: 1-2 cups per day; none soda/popPHQ-2AnswerDate RecordedPatient Health Questionnaire-2 Score1 06/17/2025CommentsUnknownSex and Gender InformationValueDate RecordedSex Assigned at BirthNot on fileLegal AfvCeusph56/15/2023 6:38 PM EDTGender Identity Not on fileSexual OrientationNot on filedocumented as of this encounter Plan of Treatment DateTypeDepartmentCare Team (Latest Contact Info)Rfuipetxjpp13/30/2026 11:30 AM EDTOffice Visit [facility] [place] [facility] [address] [facility] [address] [place] [address] Kofi Bowers MD [address] [place] [address] documented as of this encounter Visit Diagnoses Diagnosis Acute myofascial strain of lumbar region, subsequent encounter documented in this encounter Additional Health Concerns AssessmentNoted TimePHQ-9 Depression Total Score: 308 10:00 AM EDT documented as of this encounter Care Teams Team MemberRelationshipSpecialtyStart DateEnd Date Kofi Bowers MD [address] [facility] [address] [place] [address] PCP - GeneralInternal Medicine12/22/22documented as of this encounter
--- OUTSIDE RECORDS SUMMARY | 2025-08-01 17:38 | XMS_ITS | Encounter Summary ---
Author Organization [facility] Address [address] [facility] [place] [address] Care Team Providers Care Television Engineer Name Role Phone Kofi Bowers MD Primary Care Provider Encounter Details DateTypeDepartmentCare Team (Latest Contact Info)Pjfxibkfbnh75/11/2025Telephone [facility] [place] [facility] [address] [place] [address] Kofi Bowers MD [address] [facility] [address] [place] [address] Social History Tobacco UseTypesPacks/DayYears UsedDateSmoking Tobacco: FormerCigarettesQuit: 08/15/1999Smokeless Tobacco: NeverAlcohol UseStandard Drinks/WeekCommentsNot Currently0 (1 standard drink = 0.6 oz pure alcohol)Caffeine: 1-2 cups per day; none soda/popPHQ-2AnswerDate RecordedPatient Health Questionnaire-2 Score1 06/17/2025CommentsUnknownSex and Gender InformationValueDate RecordedSex Assigned at BirthNot on fileLegal SnkOverdx07/15/2023 6:38 PM EDTGender Identity Not on fileSexual OrientationNot on filedocumented as of this encounter Miscellaneous Notes * Telephone Encounter - MAREK CORONEL - 07/29/2025 3:11 PM EST Spoke with patient and sent in a refill of her muscle relaxer. * Telephone Encounter - Charlette Chirinos - 07/26/2025 9:19 AM EST Cece called back. She said her back is really hurting this morning and really wanted to talk to a nurse. She asked that you call her cell phone, she has an appointment to go to later this morning. * Telephone Encounter - Charlettebella Chirinos - 07/25/2025 4:02 PM EST Cece left a message asking to talk to the nurse. She wanted to discuss her back issues. documented in this encounter Plan of Treatment DateTypeDepartmentCare Team (Latest Contact Info)Egrgxmmowjr00/30/2026 11:30 AM EDTOffice Visit [facility] [place] [facility] [address] [place] [address] Kofi Bowers MD [address] [place] [address] documented as of this encounter Visit Diagnoses Not on filedocumented in this encounter Additional Health Concerns AssessmentNoted TimePHQ-9 Depression Total Score: 10:00 AM EDT documented as of this encounter Care Teams Team MemberRelationshipSpecialtyStart DateEnd Date Kofi Bowers MD [address] [place] [address] PCP - GeneralInternal Medicine12/22/22documented as of this encounter
--- OUTSIDE RECORDS SUMMARY | 2025-08-01 17:38 | XMS_ITS | Patient Health Record ---
Author Organization [facility] [place] Address [address] [place] [address] Care Team Providers Care Behavior Support Specialist Name Role Phone None, Unknown or Primary Care Provider Unavailab le Reason For Referral No Information Medications Medication SIG (Take, Route, Frequency, Duration) Notes Start Date End Date Status Omeprazole 20 MG 1 capsule 30 minutes before mor nicole meal Orally Once a day ActiveLiothyronine Sodium 25 MCG1 tablet on an empty stomach Orally Once a day ActiveCalcium + D 500-1000-40 GU-TPH-PHXji directed OrallyActiveAcarbose 100 MG as directed OrallyActiveTrulicity 4.5 MG/0.5MLas directed SubcutaneousActive amLODIPine Besylate 10 MG1 tablet Orally Once a dayActiveVitamin EActiveLevemir FlexTouchActiveCarvedilol 25 MG1 tablet with food Orally Twice a dayActive traMADol HCl 50 MG1 tablet as needed Orally Once a dayActiveLosartan Potassium- HCTZ 100-25 MG1 tablet Orally Once a dayActiveVitamin CActiveQUEtiapine Fumarate 50 MG1 tablet at bedtime Orally Once a dayActiveLunesta 3 MG1 tablet immediately before bedtime Orally Once a dayActiveAspirin 81 MG1 tablet Orally Once a day ActiveFurosemide 40 MG1 tablet Orally Once a dayActivePramipexole Dihydrochloride 0.5 MG1 tablet Orally Once a dayActivePotassium Chloride 20 MEQ1 packet with food Orally Once a dayActiveAcetaminophen 500 MG1 tablet as needed Orally every 6 hrs05/08/2024ctiveLovastatin 20 MG1 tablet with the evening meal Orally Once a dayActiveVitamin B 12 500 MCG1 tablet Orally Once a dayActive metFORMIN HCl 1000 MG1 tablet with a meal Orally Once a dayActiveLoratadine Allergy ReliefActiveVitamin Y9Wyipii Problems Problem Type SNOMED Code ICD Code Onset Dates Problem Status W/U Status Risk Notes Problem Polyneuropathy due t o type 2 diabetes mellitus ([id number]) Type 2 diabetes mellitus with diabetic polyneuropathy (E11.42) Activeconfirmed Plan Of Treatment No Information Insurance Providers Payer Name Payer Address Payer Phone Subscriber Number Group Number Insured Name Patient Relationship to Insured Coverage Start Date Coverage End Date [employer] MEDICARE [address] [address] [place], [place] [id number] Cece Mobley Self - patient is the insured Medical (General) History Surgical History Surgery Date(Month/Year) tonsils 1964 appendix removal 1961 gallbladder removal 1986 back surgery 2002 back surgery 2008
--- OUTSIDE RECORDS SUMMARY | 2025-08-01 17:38 | XMS_ITS | Clinical Summary ---
Author Organization [employer] [place] s tem Address [id number] [address] [place] [address] Care Team Providers Care Geophysical Engineer Name Role Phone Kofi Bowers MD Primary Care Provider [phone] Allergies Active AllergyReactionsCriticalityNoted EdaqXkrwgxyoZtyzlu09/11/2019 Throat swells, couldn't breathe Ngyqvoyfakuy98/11/2019 itchy Medications MedicationSigDispense QuantityRefillsLast FilledStart DateEnd DateStatus [...] standard drink = 0.6 oz pure alcohol)ChildcareAnswerDate AmegfrzjIgdmwffpvQhtxbfl07/12/2019Employment AnswerDate HptpyehbOjcmxpopjoJyxmozs26/12/2019Hunger ScreeningAnswerDate RecordedWithin the past 12 months we worried whether our food would run out before we got money to buy more.Never True03/18/2024Within the past 12 months the food we bought just didn't last and we didn't have money to get more.Never True4Purpose - LifeAnswerDate RecordedPurpose and direction in life Rqluqux18/11/2021CommentsNoSex and Gender InformationValueDate Recorded Sex Assigned at BirthNot on fileLegal JdsNhxuzi80/06/2015 11:38 AM EDTGender IdentityNot on fileSexual OrientationNot on file Last Filed Vital Signs Vital SignReadingTime TakenCommentsBlood Zgvxuywu407/7308 11:04 AM EDT Nfytb8423 11:04 AM FDXLjrbifxmcay62.6 ??C (97.9 ??F)03/18/2024 11:04 AM EDTRespiratory Foej3365 11:04 AM EDTOxygen Qkuhshhbnd427%03/18/2024 11:04 AM EDTInhaled Oxygen Concentration--Qcdlne37.6 kg (182 lb)03/18/2024 11:04 AM SPKUecure611.4 cm (5')03/18/2024 11:04 AM EDTBody Mass Index35.5408 11:04 AM EDT Plan of Treatment Health MaintenanceDue DateLast DoneCommentsDepression Feyqmzrlk70/06/1957Tobacco Qlwaijvxi19/06/1957Fall Risk Qfeolvfjv85/06/2010DTaP,Tdap and Td Vaccines (1 - Tdap)RSV ( or age 60+ yrs) (1 - 1-dose 75+ series) 2020Zoster (Shingles) Vaccine (2 of 2)/3COVID-19 Vaccine (3 - 2024- season)502/, 09/10/2020Influenza Chqtlrf4504/15/2025 06/06/2023, 05/20/2021, 09/15/2020, Additional history exists Medical Devices Not on file Insurance Care Teams Team MemberRelationshipSpecialtyStart DateEnd Date Kofi Bowers MD [address] [facility] [address] [place] [address] PCP - GeneralInternal Medicine10/27/22
--- OUTSIDE RECORDS SUMMARY | 2025-08-01 17:38 | XMS_ITS | Encounter Summary ---
Author Organization [facility] Address [address] [facility] [place] [address] Care Team Providers Care Automotive Sales Associate Name Role Phone Kofi Bowers MD Primary Care Provider [phone] Encounter Details DateTypeDepartmentCare Team (Latest Contact Info)Czrvzfwdfst04/08/2025bstract [facility] [place] [facility] [address] [facility] [address] [place] [address] Kofi Bowers MD [address] [facility] [address] [place] [id number] Social History Tobacco UseTypesPacks/DayYears UsedDateSmoking Tobacco: FormerCigarettesQuit: 08/15/1999Smokeless Tobacco: NeverAlcohol UseStandard Drinks/WeekCommentsNot Currently0 (1 standard drink = 0.6 oz pure alcohol)Caffeine: 1-2 cups per day; none soda/popPHQ-2AnswerDate RecordedPatient Health Questionnaire-2 Score1 06/17/2025CommentsUnknownSex and Gender InformationValueDate RecordedSex Assigned at BirthNot on fileLegal DtdCvgpqi37/15/2023 6:38 PM EDTGender Identity Not on fileSexual OrientationNot on filedocumented as of this encounter Plan of Treatment DateTypeDepartmentCare Team (Latest Contact Info)Zkxdjmdwihr22/30/2026 11:30 AM EDTOffice Visit [facility] [place] [facility] [address] [facility] [address] [place] [address] Kofi Bowers MD [address] [facility] [address] [place], [place] [id number] documented as of this encounter Visit Diagnoses Not on filedocumented in this encounter Additional Health Concerns AssessmentNoted TimePHQ-9 Depression Total Score: 10:00 AM EDT documented as of this encounter Care Teams Team MemberRelationshipSpecialtyStart DateEnd Date Kofi Bowers MD 112 [facility] [address] [place] [address] PCP - GeneralInternal Medicine12/22/22documented as of this encounter
--- OUTSIDE RECORDS SUMMARY | 2025-08-01 17:38 | XMS_ITS | Encounter Summary ---
Author Organization [facility] Address [address] [place] [address] Care Team Providers Care Academic Computing Director Name Role Phone Kofi Bowers MD Primary Care Provider [phone] Encounter Details DateTypeDepartmentCare Team (Latest Contact Info)Wemitneurys20/18/2025Telephone [facility] [place] [facility] [address] [place] [address] [place] [address] Kofi Bowers MD [address] [facility] [address] [place] [address] Social History Tobacco UseTypesPacks/DayYears UsedDateSmoking Tobacco: FormerCigarettesQuit: 08/15/1999Smokeless Tobacco: NeverAlcohol UseStandard Drinks/WeekCommentsNot Currently0 (1 standard drink = 0.6 oz pure alcohol)Caffeine: 1-2 cups per day; none soda/popPHQ-2AnswerDate RecordedPatient Health Questionnaire-2 Score1 06/17/2025CommentsUnknownSex and Gender InformationValueDate RecordedSex Assigned at BirthNot on fileLegal ShpOcrboz66/15/2023 6:38 PM EDTGender Identity Not on fileSexual OrientationNot on filedocumented as of this encounter Miscellaneous Notes * Telephone Encounter - MRAEK CORONEL - 08/01/2025 1:45 PM EST Patient notified * Telephone Encounter - MAREK CORONEL - 08/01/2025 10:47 AM EST Patient called and states that the muscle relaxer is not helping. She is wondering if she can take 2 pills? Please advise documented in this encounter Plan of Treatment DateTypeDepartmentCare Team (Latest Contact Info)Bzgaolwjwwd56/30/2026 11:30 AM EDTOffice Visit [facility] [place] [facility] [address] [facility] [address] [place] [address] Kofi Bowers MD [address] [place] [address] [place] [address] documented as of this encounter Visit Diagnoses Not on filedocumented in this encounter Additional Health Concerns AssessmentNoted TimePHQ-9 Depression Total Score: 10:00 AM EDT documented as of this encounter Care Teams Team MemberRelationshipSpecialtyStart DateEnd Date Kofi Bowers MD [address] [facility] [address] [place] [address] PCP - GeneralInternal Medicine12/22/22documented as of this encounter
[2025-08-01] MEDS: LIDOCAINE 5% PATCH 1 PATCH TOPICAL (17:47)
[2025-08-01] MEDS: KETOROLAC TROMETHAMINE 30 MG/ML VIAL IM (17:48)
[2025-08-01] MEDS: ORPHENADRINE 60 MG/2 ML VIAL IM (17:49)
--- NOTE | 2025-08-01 19:31 | ED.GENADUL1 ---
HPI HPI - General Adult General Chief complaint: Back Pain/Injury Stated complaint: LOWER BACK SPASMS Time Seen by Provider: 08/01/25 17:10 Source: patient and family Mode of arrival: Wheelchair Limitations: physical limitation History of Present Illness HPI narrative: Patient is an 80-year-old female with a past medical history of lumbar spinal fusion L3-S1 and spinal cord stimulator placement that presents with complaints of lumbar back spasms, greater on the right that started about a week ago. She did contact and see the spinal cord stimulator rep about a week ago and fix the battery issue she was having. The spasms have persisted and the spinal cord stimulator is functioning correctly now. She does follow with pain management. She did not go to urgent care last week as well and was given a shot of Toradol and a Medrol Dosepak. The steroid did help a lot but only while she was taking it. She was given Zanaflex as well that has not helped. She denies bowel or bladder incontinence/retention, saddle anesthesia, lower extremity weakness or numbness. Related Data Home Medications ?Medication ?Instructions ?Recorded ?Confirmed acarbose 100 mg tablet 100 mg PO BID 10/19/23 08/01/25 amlodipine 10 mg tablet 10 mg PO DAILY 10/19/23 08/01/25 aspirin 81 mg capsule 81 mg PO DAILY 10/19/23 08/01/25 furosemide 40 mg tablet 40 mg PO DAILY 10/19/23 08/01/25 liothyronine 25 mcg tablet 12.5 mcg PO BID 10/19/23 08/01/25 loratadine 10 mg tablet 10 mg PO DAILY PRN allergic 10/19/23 08/01/25 symptoms losartan 100 1 tab PO DAILY 10/19/23 08/01/25 mg-hydrochlorothiazide 25 mg tablet omeprazole 20 mg capsule,delayed 20 mg PO DAILY 10/19/23 08/01/25 release quetiapine 50 mg tablet 50 mg PO DAILY 10/19/23 08/01/25 tramadol 50 mg tablet 100 mg PO Q12H PRN pain 10/19/23 08/01/25 acetaminophen 500 mg capsule 1,000 mg PO BID 07/18/24 08/01/25 ascorbic acid (vitamin C) 500 mg 500 mg PO BID 07/18/24 08/01/25 capsule calcium 600 mg (as 1 tab PO DAILY 07/18/24 08/01/25 carbonate)-vitamin D3 5 mcg (200 unit) tablet (Calcium 600 + D(3)) cholecalciferol (vitamin D3) 125 5,000 unit PO DAILY 07/18/24 08/01/25 mcg (5,000 unit) capsule vitamin B complex (B-Complex 1 tab PO DAILY 07/18/24 08/01/25 tablet) vitamin E 268 mg (400 unit) capsule 268 mg PO BID 07/18/24 08/01/25 baclofen 10 mg tablet 10 mg PO BID PRN muscle spasm 10/29/24 08/01/25 zonisamide 50 mg capsule 50 mg PO BEDTIME 02/19/25 08/01/25 empagliflozin 10 mg tablet 10 mg PO DAILY 07/04/25 08/01/25 (Jardiance) insulin glargine 100 unit/mL 60 unit subcut DAILY 07/04/25 08/01/25 subcutaneous solution (Lantus U-100 Insulin) Previous Rx's ?Medication ?Instructions ?Recorded baclofen 10 mg tablet 10 mg PO TID PRN muscle spasm #90 07/31/25 tabs Allergies Allergy/AdvReac Type Severity Reaction Status Date / Time iodine Allergy Severe Anaphylaxis Verified 07/04/25 07:59 levofloxacin (From Levaquin) Allergy Rash Verified 07/04/25 07:59 Opioid HPI Opioid Management Most Recent Opioid Data: Last Pain Scale 9 06/24/25, 09:02 Last MAR Pain Assessment Today, 17:48 Review of Systems ROS Status of ROS 10 or more systems reviewed and unremarkable except as noted in history and below [facility] Medical History Facial trauma (~2017) ?S09.93XA - Unspecified injury of face, initial encounter (ICD-10) Chronic insomnia ?F51.04 - Psychophysiologic insomnia (ICD-10) Low iron ?E61.1 - Iron deficiency (ICD-10) Pneumonia ?J18.9 - Pneumonia, unspecified organism (ICD-10) Restless leg ?G25.81 - Restless legs syndrome (ICD-10) GERD (gastroesophageal reflux disease) ?K21.9 - Gastro-esophageal reflux disease without esophagitis (ICD-10) Activity intolerance ?R68.89 - Other general symptoms and signs (ICD-10) Extremity edema ?R60.0 - Localized edema (ICD-10) Diabetes ?E11.9 - Type 2 diabetes mellitus without complications (ICD-10) Hypothyroidism ?E03.9 - Hypothyroidism, unspecified (ICD-10) Low back pain ?M54.50 - Low back pain, unspecified (ICD-10) Osteoarthritis ?M19.90 - Unspecified osteoarthritis, unspecified site (ICD-10) Diabetes 1.5, managed as type 2 ?E13.9 - Other specified diabetes mellitus without complications (ICD-10) Sleep apnea ?G47.30 - Sleep apnea, unspecified (ICD-10) High cholesterol ?E78.00 - Pure hypercholesterolemia, unspecified (ICD-10) Hypertension ?I10 - Essential (primary) hypertension (ICD-10) Surgical History History of facial surgery (~2017) ?Z98.890 - Other specified postprocedural states (ICD-10) History of colonoscopy ?Z98.890 - Other specified postprocedural states (ICD-10) History of radiofrequency ablation (RFA) of nerve of lumbar spine ?Z98.890 - Other specified postprocedural states (ICD-10) S/P epidural steroid injection ?Z92.241 - Personal history of systemic steroid therapy (ICD-10) Previous back surgery ?Z98.890 - Other specified postprocedural states (ICD-10) History of cholecystectomy ?Z90.49 - Acquired absence of other specified parts of digestive tract (ICD-10) Hx of tonsillectomy ?Z90.89 - Acquired absence of other organs (ICD-10) History of appendectomy ?Z90.49 - Acquired absence of other specified parts of digestive tract (ICD-10) Family History Other Cancer Family history of coronary artery disease Family history of diabetes mellitus Family history of heart disease Family history of hypertension Social History Within the past year, how often did you have a drink containing alcohol: never Score interpretation: A score less than 3 is consistent with normal alcohol consumption. Smoking status: Never smoker Non-prescribed substance use: denies use Highest level of school completed/degree received: Associate degree: occupational, technical, vocational program Little interest or pleasure in doing things: not at all Feeling down, depressed, or hopeless: not at all Exam Narrative Exam Narrative: General: No distress, age-appropriate Skin: Warm, dry, no pallor. No rash. Head: Normocephalic, atraumatic. Neck: Supple, non-tender. Eye: Pupils are equal, round and EOMI. No scleral icterus. Ears, Nose, Mouth, and Throat: No nasal mucosal hypertrophy. Oral mucosa is moist, no posterior oropharynx erythema, uvula is mid-line Cardiovascular: Regular Rate and Rhythm without murmur, gallop or rub. Respiratory: No accessory muscle use or respiratory distress. Back: No midline thoracic or lumbar vertebral tenderness. Right lumbar paraspinal tenderness with palpation. 5/5 strength bilateral lower extremities. Sensation intact distally with light touch to bilateral lower extremities. Negative clonus bilaterally. Musculoskeletal: Full ROM of all extremities, no calf or popliteal tenderness Neurological: A&O x4. No cranial nerve dysfunction observed. No truncal ataxia. Moves all extremities. Sensation intact. Psychiatric: Cooperative and interactive. Normal mood and affect. Constitutional Vital Signs, click to edit/add: Last Vital Signs Temp 97.8 F 08/01/25 16:48 Pulse 63 08/01/25 16:48 Resp 18 08/01/25 16:48 BP 138/60 08/01/25 16:48 Pulse Ox 98 08/01/25 16:48 O2 Del Method Room Air 08/01/25 16:48 Documenting provider has reviewed patient's vital signs: yes Course Vital Signs Vital signs: Vital Signs Temperature 97.8 F 08/01/25 16:48 Pulse Rate 63 08/01/25 16:48 Respiratory Rate 18 08/01/25 16:48 Blood Pressure 138/60 08/01/25 16:48 Pulse Oximetry 98 08/01/25 16:48 Oxygen Delivery Method Room Air 08/01/25 16:48 Temperature 97.8 F 08/01/25 16:48 Pulse Rate 63 08/01/25 16:48 Respiratory Rate 18 08/01/25 16:48 Blood Pressure 138/60 08/01/25 16:48 Pulse Oximetry 98 08/01/25 16:48 Oxygen Delivery Method Room Air 08/01/25 16:48 Medical Decision Making MDM Narrative Medical decision making narrative: This is an 80-year-old female with a history of L3?S1 lumbar fusion and spinal cord stimulator placement who presented with acute lumbar back spasms, worse on the right, ongoing for approximately one week. The patient denied red flag symptoms including bowel or bladder incontinence or retention, saddle anesthesia, and lower extremity weakness or numbness. Given her surgical history and symptom pattern, her pain was felt to be most consistent with lumbar paraspinal muscle spasm, possibly related to adjacent segment disease above her prior fusion. There was low clinical concern for acute neurologic compromise, infection, or cauda equina syndrome at this time. She was treated symptomatically in the department with Toradol 30 mg IM, Norflex 60 mg IM, and a lidocaine patch, resulting in significant improvement of her pain and muscle spasm. The patient requested discharge after symptom relief. I discussed with her the importance of close outpatient follow-up with her pain management provider, as updated lumbar imaging would be advisable given her prior CT scan is over one year old and there is concern for possible developing lumbar stenosis above the L3 fusion level. She will also contact her spinal cord stimulator footwear sales representative again to ensure proper functioning. She verbalized understanding and agreement with the plan. Pain controlled and patient discharged in stable condition. Differential Diagnosis Differential Diagnosis: Adjacent segment disease, lumbar radiculopathy Discharge Plan Discharge Chief Complaint: Back Pain/Injury Clinical Impression: History of lumbar fusion, Presence of spinal cord stimulator, Acute on chronic back pain Patient Disposition: Home, Self-Care Time of Disposition Decision: 18:43 Condition: Good Mode of Transportation: Private Vehicle Prescriptions / Home Meds: No Action acarbose 100 mg tablet 100 mg PO BID amlodipine 10 mg tablet 10 mg PO DAILY furosemide 40 mg tablet 40 mg PO DAILY liothyronine 25 mcg tablet 12.5 mcg PO BID loratadine 10 mg tablet 10 mg PO DAILY PRN (Reason: allergic symptoms) losartan-hydrochlorothiazide 100-25 mg tablet 1 tab PO DAILY omeprazole 20 mg capsule,delayed release(DR/EC) 20 mg PO DAILY quetiapine 50 mg tablet 50 mg PO DAILY tramadol 50 mg tablet 100 mg PO Q12H PRN (Reason: pain) aspirin 81 mg capsule 81 mg PO DAILY zonisamide 50 mg capsule 50 mg PO BEDTIME calcium carbonate-vitamin D3 [Calcium 600 + D(3)] 600 mg-5 mcg (200 unit) tablet 1 tab PO DAILY acetaminophen 500 mg capsule 1,000 mg PO BID ascorbic acid (vitamin C) 500 mg capsule 500 mg PO BID vitamin E 268 mg (400 unit) capsule 268 mg PO BID cholecalciferol (vitamin D3) 125 mcg (5,000 unit) capsule 5,000 unit PO DAILY vitamin B complex [B-Complex] Tablet 1 tab PO DAILY baclofen 10 mg tablet 10 mg PO BID PRN (Reason: muscle spasm) insulin glargine [Lantus U-100 Insulin] 100 unit/mL solution 60 unit subcut DAILY Jardiance 10 mg tablet 10 mg PO DAILY baclofen 10 mg tablet 10 mg PO TID PRN (Reason: muscle spasm) Qty: 90 2RF Print Language: Slovenian Instructions: Chronic Back Pain (DC) Referrals: Zoila Kenyon NP [Physician, Pain Management] - 1 week BELEN ZALDIVAR [Primary Care Provider, Internal Medicine] - 1 week Discharge Date/Time: 08/01/25 19:01
== END 2025-08-01 19:01 | disposition home or self-care (01) ==
PROVIDERS: Emergency Provider Emergency Medicine; PCP Internal Medicine
DX: M54.9 Dorsalgia, unspecified (principal); G89.29 Other chronic pain; Z98.1 Arthrodesis status
CPT/HCPCS: 96372; 99284; J1885; J2360

== ENCOUNTER 2025-08-05 13:21 | Outpatient (OUT) | payer MEDICARE, SELFPAY ==
--- OUTSIDE RECORDS SUMMARY | 2025-08-02 07:26 | XMS_ITS | Continuity of Care Document ---
Demographics Address [address] [place] [address] Phone Phone Email Address hwtqruie05/17 Preferred Language Comoran Marital Status Sabianism Affiliation Yazidism Race White Additional Race(s) Unavailable Ethnic Group Not or Lati no Author Organization [facility] Address [address] [place] [address] Phone Care Team Providers Care Fence Installer Helper Name Role Phone Kofi Bowers II Primary Care Provider [phone] Meghann Verdin APRN Attending Provider Myra Sales APRN Attending Provider Care Teams Patient Care Team Team Status: Active Member Role/Relationship Status Dates Kofi Bowers II MD Primary Care Provider Active Visit Care Team Team Status: Inactive Member Role/Relationship Status Dates Kofi Bowers II MD Primary Care Provider Active Start: July 21, 2025 End: July 21, 2025Pavidal Verdin APRN STRAIGHT LINE EDGER-CAttending Provider ActiveStart: July 21, 2025 End: July 21, 2025 Visit Care Team Team Status: Inactive Member Role/Relationship Status Dates Kofi Bowers II MD Primary Care Provider Active Start: August 02, 2025 End: August 02, 2025Myra Sales APRN ACNP-BCAttending ProviderActiveStart: August 02, 2025 End: August 02, 2025 Chief Complaint and Reason for Visit Chief Complaint Admit Date lower back spasm July 21, 2025 1 2:08pm manolo/annual August 02, 2025 11:20am Reason for Visit Admit Date Lumbar strain July 21, 2025 1 2:08pm Chronic insomnia August 02, 2025 11:20am MANOLO (obstructive sleep apnea) July 152024 11:20am RLS (restless legs syndrome) August 022024 11:20am Allergies, Adverse Reactions, Alerts Allergen Type Severity [...] June 28, 2024 3:16 pm Unknown Active Lumbar strain July 21, 2025 1:35pm Unknown A ctive Chronic insomnia June 28, 2024 3:16pm Unknown Active RLS (restless legs syndrome) June 29, 2024 12:40 pm Unknown Active Medications Medication Status Dose Units Route Directions Qty Days Refills S tart Date Stop Date End Date Reason(s) Instructions Adherence Furosemide 40 mg tablet Active 1 TAB PO Daily June 12, 2018 11:00pmComplies with drug therapyClonidine Hcl 0.1 mg tablet Rrudqshacfgu3ZRFQGHngnk dailyOct2017 11:00pmDece2024 12:29pmMetoprolol Succinate 50 mg tablet extended release 24 bzJgprpboclofv0MYA POTwice dailyOct2017 11:00pmDece2024 12:30pmTramadol 50 mg iijxzsXyoxhydoommg8ELNYKR5V as needed for PainOct2017 11:[facility]2024 12:30pmPotassium Chloride 20 mEq tablet,ER particles/crystals Xfcwwpxmzyxw7ZFPEFKUCBwaxmDkqadud 2017 11:00[facility]2024 12:30pm Amlodipine 10 mg ocxgitKjniptueajoq1KOANHZjzqrThwyock 2017 11:00[facility]2024 12:30pmAcarbose 100 mg tbjgedMvrcjc4CXEYIDuorn dailyOct2017 11:00pmComplies with drug therapyOmeprazole 20 mg capsule,delayed release(DR/EC) Ihpvtx4KXVJPXigstHgqkylu 2017 11:00pmComplies with drug therapyLovastatin 20 mg byjdkqOuhxrextpimk2OKODRYvgajBjpkccv 2017 11:00[facility]2024 12:30pmLosartan 100 mg shludlEtqvevxfnkon3EUTUQZudqvBdolbyl 2017 11:00pm July 21, 2025 12:23pmQuetiapine 50 mg eaqzioIfttta6GHNVUIkvwgonTcewawt 2017 11:00pmComplies with drug therapyLiothyronine 25 mcg tabletActive0.5 TABPODailyOctdeaconess hospital 2017 11:00pmComplies with drug therapyMetformin 1,000 mg iihuwjDbsuxornkius5OUKSYLkjis dailyOct2017 11:00[facility]2024 12:30pmDuloxetine 60 mg capsule,delayed release(DR/EC)DiscontinuedOct2017 11:00[facility]2024 12:29pmPregabalin 100 mg gkfodcsZyvnfoyvkyji0LJY POTwice dailyOct2017 11:00[facility]2024 12:30pmQuetiapine 50 mg tabletDiscontinuedOct2017 11:00[facility]2024 12:30pmInsulin Detemir U-100 100 unit/mL (3 mL) insulin penDiscontinued0.ROUTE.COMPLEXOct2017 11:00[facility]2024 12:30pmas directedMelatonin 5 mg Capsule DiscontinuedOct2017 11:00pmDecemb2024 12:30pmLoratadine 10 mg CxkejvgJqriyk2WUUOCFsruqPtumgiz 2017 11:00pmComplies with drug therapy Biotin 5,000 mcg Tablet, IsfdloetgiLcpkvljuvfpa5BALVJSSCXWYESXrnvxFbcuwrp 2017 11:00pmDecemb2024 12:29pmTramadol 50 mg bvtwmlJysosc583GYSYMuqcx daily as needed for PainJuly 21, 2025 12:22pmComplies with drug therapy Amlodipine 10 mg fuuqbwYdjate34GJGMGfxvkLsndykrd 7th, 2025 12:23pmComplies with drug therapyAcetaminophen 500 mg juiwemFhbyup1432DHLIVlfpc 6 hours as needed July 21, 2025 12:00amComplies with drug therapyLosartan-Hydrochlorothiazide 100-25 mg uddhrvEugzeg4NPRFKMzucgAwdfovla 2024 12:00amComplies with drug therapyCyanocobalamin (Vitamin B-12) (Vitamin B-12) 500 mcg lwglgoWzshcq887GCMZG DailyJuly 21, 2025 12:00amComplies with drug therapyBaclofen 10 mg tablet Wewmve32IMBBFdpsg at bedtimeJuly 21, 2025 12:00amComplies with drug therapy Ascorbate Calcium (Vitamin C) 500 mg tgdicqFxyaxc252ZRWDHllvfNzjfcdtn 7th, 2025 12:00amComplies with drug therapyAspirin 81 mg omfzwwUckavv09PTTVZblefWsiqicgu 7th, 2025 12:00amComplies with drug therapyCholecalciferol (Vitamin D3) 25 mcg (1,000 unit) corilfdRiujru56UOPFMNjnbkOvwikklv 7th, 2025 12:00amComplies with drug therapyInsulin Glargine (Lantus Solostar U-100 Insulin) 100 unit/mL (3 mL) insulin bxcDilekl50GTJQMLYNTJGesxQakhvtaj 7th, 2025 12:00amComplies with drug therapyVitamin E Mixed 400 unit capsuleActiveUNITPOGardens [facility]2024 12:00am Complies with drug mzhuhkaGq-J1-Uqi Rf-Uaes-Olw-Arben-Bor (Calcium 600-D3 Plus (Mag-Zinc)) 600 mg calcium- 20 mcg-50 mg xwgkpfVrsebe3XMUCZTwgpi dailyJuly 21, 2025 12:00amComplies with drug therapyEmpagliflozin (Jardiance) 10 mg drkgzmGlwoir17EDGQYzovhBidedtrw 7th, 2025 12:00amComplies with drug therapy Methylprednisolone (Medrol (Wero)) 4 mg tablets,dose azeyFstmfe5NNrow package hoohhmpxwx724Nmqdcnkx 7th, 2025 12:00amPO PER PKG DIR for 6 daysComplies with drug therapy Vital Signs Vital Reading Result Reference Range Collection Date/Time Height 60 [in_i] July 21, 2025 12:44jrAeklzz66.14 kgDe2024 12:19pmBody Qyppigthifk34.8 [degF]97.6-99.0Dece2024 12:19pmHeart Rate87 /vta76-821 July 21, 2025 12:19pmRespiratory rate18 /zxo32-67JrvsshgzJuly 21, 2025 12:19pm Oxygen saturation by Pulse zdojnqjr28 %95-100July 21, 2025 12:19pmBP Pgodbgpx174 mm[Hg]100-140July 21, 2025 12:19pmBP Rtwnnnlcd79 mm[Hg]60-100 July 21, 2025 12:19pmBMI (Body Mass Index)37.5 kg/m9Pweglwvw2024 12:17hsQmrruv17 [in_i]August 02, 2025 11:24blRffrdm80.91 kgce2024 11:40amHeart Rate79 /irg63-936RojcctqxAugust 02, 2025 11:40amOxygen saturation by Pulse vddhfauw02 %95-1002024 11:40amBP Audycrtb038 mm[Hg] 100-140August 02, 2025 11:40amBP Mfoccsnpw71 mm[Hg]60-100ce2024 11:40amBMI (Body Mass Index)36.1 kg/t9Srdyhxih2024 11:40am Advance Directives Advance Directive Response Recorded Date/ Time Advance Directives No May 25, 2017 2:32pm Insurance Providers Guarantor Cece Mobley Address [address] [facility] [address]Akfjwnw Info.Home Phone: Coverage Status Update:2024 Payer Group Member ID Coverage Type Subscriber Relationship to Subscriber Effective Date Expiration Date Kaden MART/BS [id number] G Poore Id: [id number] [address] [facility] [place] [facility] [address] Home Phone: Email: wonffvkd55/17SelfMedicare Retired Id: [id number] G Poore Id: [id number] [address] [facility] [place] [facility] [address] Home Phone: Email: sbacbwbc59/17Self Encounters Encounter Location(s) Arrival/Admit Date Discharge/Departure Date Discharge/Departure Disposition Provider(s) Departed Physician/ Provider Office Visit -[facility] July 21, 2025 12:08pm July 21, 2025 1:26pm Discharged to home care or self care (routine discharge) Meghann Verdin APRN Departed Physician/ Provider Office Visit -[facility] August 02, 2025 11:20am August 02, 2025 12:26pm Discharged to home care or self care (routine discharge) Jessica Reyes APRN [facility] Recent Diagnosis Onset Date Admit Date Lumbar strain Unknown July 21 12:08pm Chronic insomnia Unknown August 02, 2025 11:20am MANOLO (obstructive sleep apnea) Unknown 2024 11:20am RLS (restless legs syndrome) Unknown Jul 11:20am Assessments Diagnosis Onset Date Resolution Status Admit Date Lumbar strain noneactiveDece2024 12:08pmChronic insomniaacuteDece2024 11:20amOSA (obstructive sleep apnea)acuteDe2024 11:20amRLS (restless legs syndrome)acuteDe2024 11:20am Plan of Treatment Author Meghann Verdin [facility] 2024 1:36pmIM injection of toradol given in office today. Initiate steroids as ordered. May continue to use zanaflex as prescribed from PCP. Rest. Apply ice to area of pain alternated with heat indirectly for 20 minutes every 1-2 hours. Take medication as prescribed. RTC if symptoms unrelieved after 1 week. Pt offered understanding of treatment plan. Author Myra Sales [facility] 2024 11:55amPatient is using, tolerating, and benefitting from current PAP therapy. Machine compliance report was reviewed with patient. PSG results briefly reviewed with patient specifically AHI. Will make no changes to present therapy as currently prescribed. Prescription for new mask, tubing, headgear, and filters was provided to the patient JIMBO, MSC at the time of this visit. Future Tests Future scheduled test information is unavailable Pending Tests Pending diagnostic test information is unavailable Future Visits Future appointment information is unavailable Future Procedures Future procedure information is unavailable Future Medications Future medication information is unavailable Patient Instructions Patient instructions are unavailable
--- OUTSIDE RECORDS SUMMARY | 2025-08-05 13:24 | XMS_ITS | Encounter Summary ---
Author Organization [facility] Address [address] [facility] [place] [address] Care Team Providers Care Meter Changes Records Clerk Name Role Phone Kofi Bowers MD Primary Care Provider [phone] Encounter Details DateTypeDepartmentCare Team (Latest Contact Info)Hssjnpemfrt38/22/2025bstract [facility] [place] [facility] [address] [facility] [address] [place] [address] Kofi Bowers MD [address] [facility] [address] [place] [id number] Social History Tobacco UseTypesPacks/DayYears UsedDateSmoking Tobacco: FormerCigarettesQuit: 08/15/1999Smokeless Tobacco: NeverAlcohol UseStandard Drinks/WeekCommentsNot Currently0 (1 standard drink = 0.6 oz pure alcohol)Caffeine: 1-2 cups per day; none soda/popPHQ-2AnswerDate RecordedPatient Health Questionnaire-2 Score1 06/17/2025CommentsUnknownSex and Gender InformationValueDate RecordedSex Assigned at BirthNot on fileLegal VwzPlonyx21/15/2023 6:38 PM EDTGender Identity Not on fileSexual OrientationNot on filedocumented as of this encounter Plan of Treatment DateTypeDepartmentCare Team (Latest Contact Info)Imiqadhobmg10/30/2026 11:30 AM EDTOffice Visit [facility] [place] [facility] [address] [facility] [address] [place] [address] Kofi Bowers MD [address] [facility] [address] [place], [place] [id number] documented as of this encounter Visit Diagnoses Not on filedocumented in this encounter Additional Health Concerns AssessmentNoted TimePHQ-9 Depression Total Score: 10:00 AM EDT documented as of this encounter Care Teams Team MemberRelationshipSpecialtyStart DateEnd Date Kofi Bowers MD [address] [facility] [address] [place] [address] PCP - GeneralInternal Medicine12/22/22documented as of this encounter
--- OUTSIDE RECORDS SUMMARY | 2025-08-05 13:24 | XMS_ITS | Clinical Summary ---
Author Organization [facility] Address [facility] [place] [address] Care Team Providers Care Pension Adviser Name Role Phone Unavailable Primary Care Provider Unavailabl e Allergies Active AllergyReactionsCriticalityNoted RmmgJgssplklPzbhvwQdlfrltj82/12/2014 McvolvcekHovbxobm57/12/2014 Medications MedicationSigDispense QuantityRefillsLast FilledStart DateEnd DateStatus meloxicam [...] to affected area.Active Active Problems ProblemNoted DateDiagnosed YzjkLbrrtgnkqcmtpa62/12/8539Azuwbdth23/12/2014Obesity 01/24/2014 Social History Tobacco UseTypesPacks/DayYears UsedDateSmoking Tobacco: Never Assessed CommentsUnknownSex and Gender InformationValueDate RecordedSex Assigned at Not on fileLegal SqyZhlldm90/02/2012 10:41 AM ESTGender IdentityNot on file Sexual OrientationNot on file Last Filed Vital Signs Vital SignReadingTime TakenCommentsBlood Puequlca891/6006 12:45 PM EDT Rlpme8817 12:45 PM EDTTemperature--Respiratory Rate--Oxygen Saturation-- Inhaled Oxygen Concentration--Weight--Height--Body Mass Index-- Plan of Treatment Health MaintenanceDue DateLast DoneCommentsAnxiety Sizhryefq59/06/1963Depression Efkkcepst14/06/1963DTaP,Tdap,Td Vaccine (1 - Tdap)1964Diabetes Screening 1990Pneumococcal Vaccine: 50+ (1 of 1 - PCV)1995Shingrix Vaccine (1 of 2)1995Bone Density Fwanqgqvt31/06/2010RSV Vaccine (1 - 1-dose 75+ series)2020Advance Directive Ibvddqohbz35/01/2025ovid-19 Vaccine (1 - 2024-26 season)2025Influenza Vaccine (#1)2025 Insurance [facility] Address: [address] [place] [address]
--- OUTSIDE RECORDS SUMMARY | 2025-08-05 13:24 | XMS_ITS | Patient Health Record ---
Author Organization [facility] [place] Address [address] [place] [address] Care Team Providers Care Rn Oncology Name Role Phone None, Unknown or Primary Care Provider Unavailab le Reason For Referral No Information Medications Medication SIG (Take, Route, Frequency, Duration) Notes Start Date End Date Status Omeprazole 20 MG 1 capsule 30 minutes before mor nicole meal Orally Once a day ActiveLiothyronine Sodium 25 MCG1 tablet on an empty stomach Orally Once a day ActiveCalcium + D 500-1000-40 OA-MSG-UOJgg directed OrallyActiveAcarbose 100 MG as directed OrallyActiveTrulicity [...] meal Orally Once a dayActiveLoratadine Allergy ReliefActiveVitamin Y3Zndywr Problems Problem Type SNOMED Code ICD Code Onset Dates Problem Status W/U Status Risk Notes Problem Polyneuropathy due t o type 2 diabetes mellitus (256299374) Type 2 diabetes mellitus with diabetic polyneuropathy (E11.42) Activeconfirmed Plan Of Treatment No Information Insurance Providers Payer Name Payer Address Payer Phone Subscriber Number Group Number Insured Name Patient Relationship to Insured Coverage Start Date Coverage End Date [employer] MEDICARE [address] [address] [place], [place] [id number] Cece Mobley Self - patient is the insured Medical (General) History Surgical History Surgery Date(Month/Year) appendix removal 1961 gallbladder removal 1986 back surgery 2002 back surgery 2008 tonsils 1964
--- OUTSIDE RECORDS SUMMARY | 2025-08-05 13:25 | XMS_ITS | Clinical Summary ---
Author Organization [facility] Address [address] [place] [address] Care Team Providers Care Front Office Administrator Name Role Phone Kofi Bowers MD Primary Care Provider [phone] Allergies Active AllergyReactionsCriticalityNoted DateCommentsIodineAnaphylaxisHigh 04/08/20228699Axdarlfufquv94/25/2022regabalinDizziness,Ustphkb1602/24/2021hellfish Containing FnketbukUfyszkoj22/12/2014 Medications MedicationSigDispense QuantityRefillsLast FilledStart DateEnd DateStatus acarbose [...] Problems ProblemNoted DateDiagnosed DateVenous hypertension of lower vpzzefyxb46/09/2023 Trigger thumb, left thumb12/14/20227085Qcoljqnxie89/02/2023Failed back syndrome 12/14/2022ecreased estrogen level12/14/2022denomatous polyp of ascending colon 12/14/2022OSA (obstructive sleep apnea)04/28/2022 Assessment & Plan (06/01/2022 2:23 PM EDT): Continue to wear cpap Assessment & Plan (04/28/2022 2:06 PM EDT): F/U with PCP for further management Closed fracture of orbital floor (blow-out)04/08/20228516Jdjkvogc38/25/2022Fracture of orbit04/08/2022Fracture of radial neck04/08/2022ain in elbow04/08/2022 Hypertensive tdzlcpvi67/30/2021 Assessment & Plan (06/01/2022 2:21 PM EDT): [...] 0.85 normal K+ 4.8 normal Acquired trigger qiwuhq7601/15/2021Non-seasonal allergic uwoqvdco64/25/2021 Vitreous floaters of both eyes04/29/2020Diabetic retinopathy associated with controlled type 2 diabetes yrmghqmw94/15/2020Continuous positive airway pressure ilbfaiykp14/18/2020Failed back vuzqzdyn83/04/2018Benign neoplasm of colon 06/27/2018History of colonic jffvbd5306/01/2018Family history of malignant neoplasm of gastrointestinal tract06/01/2018Lipoprotein deficiency disorder 05/01/2018Long term current use of hozysax4201/28/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 snwsxbd2411/25/2015Ex-qnpsem6910/22/2015History of fall10/02/2015Disability of ycfafgy8510/02/20153831Tslgrvbt84/27/2015Mixed ebzrijibfobjtz43/27/2015GERD (gastroesophageal reflux disease)06/10/2015ESS (euthyroid sick syndrome) 06/10/2015Type 2 diabetes mellitus with flnxaabgddbig99/27/2015Chronic pain blwqubdz35/27/2015Chronic kojmshh9006/10/2015Benign essential hypertension 06/10/20156804Ntuvslsyyq08/27/2015Peripheral venous tpnacowsgivxm20/01/2015Diabetic polyneuropathy associated with type 2 diabetes xmmmyrtc52/01/2015Obesity 01/24/20149998Ssxjwwvu86/12/5757Clrlvrhljlybwn71/12/2014 Immunizations ImmunizationAdministration DatesNext DueInfluenza, High Dose Seasonal, Preservative Free09/15/2020,05/15/2020Influenza, injectable, MDCK, preservative free, atukrgozueba15/06/2021Influenza, injectable, quadrivalent, preservative free06/15/2019,05/22/2018Influenza, seasonal, cinsbuqbhj25/14/2019Unspecified Sars-Cov-2 Yvkcmbzccoj99/17/2021,09/10/2020 Family History Medical HistoryRelationNameCommentsCoronary artery diseaseBrotherCoronary artery [...] ValueDate RecordedSex Assigned at BirthNot on fileLegal XcqAhjmap25/29/2022 11:38 PM EDTGender IdentityNot on fileSexual OrientationNot on file Last Filed Vital Signs Vital SignReadingTime TakenCommentsBlood Acwhejvg168/78001/03/2023 11:10 AM EDT Rgtia0286/22/2023 11:10 AM EDTTemperature--Respiratory Rate--Oxygen Saturation 98%01/03/2023 11:10 AM EDTInhaled Oxygen Concentration--Jrldna95.9 kg (189 lb 6.4 oz)01/03/2023 11:10 AM YBFVjnjwv767.4 cm (5')01/03/2023 11:10 AM EDTBody Mass Index36.9901/03/2023 11:10 AM EDT Plan of Treatment Health MaintenanceDue DateLast DoneCommentsDiabetes: Hemoglobin A1C1945 Medicare Annual Wellness (AWV)1945Diabetes: Retinopathy Screening 1955Depression Souzlxroi83/06/1957Fall Risk Oyixfjtcb58/06/2010 Pneumococcal Vaccine: 50+ Years (2 of 2 - PCV)Diabetes: Urine Protein Mpxkezcvb62, 01/19/2018, 10/28/2016, Additional history existsZoster Vaccines (2 [...] Mobley TypeRelation to PatientDate of BirthPhone Billing AddressPersonal/MdktlzPwje1945 [address] [place] [address] Care Teams Team MemberRelationshipSpecialtyStart DateEnd Date Kofi Bowers MD [address] [place] [address] [place] [address] [facility]04/07/22
--- OUTSIDE RECORDS SUMMARY | 2025-08-05 13:25 | XMS_ITS | Encounter Summary ---
Author Organization [facility] Address [address] [facility] [place] [address] Care Team Providers Care Satellite Communications Engineer Name Role Phone Kofi Bowers MD Primary Care Provider [phone] Reason for Visit * ReasonOnset DateCommentsMed Jqfpks0607/29/2025 Encounter Details DateTypeDepartmentCare Team (Latest Contact Info)Vkzojcvqjcn16/15/2025Refill [facility] [place] [facility] [address] [facility] [address] [place] [address] Kofi Bowers MD [address] [facility] [address] [place], [place] [phone] Acute myofascial strain of lumbar region, subsequent encounter Social History Tobacco UseTypesPacks/DayYears UsedDateSmoking Tobacco: FormerCigarettesQuit: 08/15/1999Smokeless Tobacco: NeverAlcohol UseStandard Drinks/WeekCommentsNot Currently0 (1 standard drink = 0.6 oz pure alcohol)Caffeine: 1-2 cups per day; none soda/popPHQ-2AnswerDate RecordedPatient Health Questionnaire-2 Score1 06/17/2025CommentsUnknownSex and Gender InformationValueDate RecordedSex Assigned at BirthNot on fileLegal HfiRagpnb82/15/2023 6:38 PM EDTGender Identity Not on fileSexual OrientationNot on filedocumented as of this encounter Plan of Treatment DateTypeDepartmentCare Team (Latest Contact Info)Qqlsvvtecja77/30/2026 11:30 AM EDTOffice Visit [facility] [place] [facility] [address] [facility] [address] [place] [address] Kofi Bowers MD [address] [place] [address] [place] [address] documented as of this encounter Visit Diagnoses Diagnosis Acute myofascial strain of lumbar region, subsequent encounter documented in this encounter Additional Health Concerns AssessmentNoted TimePHQ-9 Depression Total Score: 308 10:00 AM EDT documented as of this encounter Care Teams Team MemberRelationshipSpecialtyStart DateEnd Date Kofi Bowers MD [address] [facility] [address] [place] [address] PCP - GeneralInternal Medicine12/22/22documented as of this encounter
--- OUTSIDE RECORDS SUMMARY | 2025-08-05 13:25 | XMS_ITS | Encounter Summary ---
Author Organization [facility] Address [address] [place] [facility] [address] Care Team Providers Care Visual Artist Name Role Phone Kofi Bowers MD Primary Care Provider [phone] Encounter Details DateTypeDepartmentCare Team (Latest Contact Info)Olwoyvkvtbf55/08/2025bstract [facility] [place] [facility] [address] [facility] [address] [place] [address] Kofi Bowers MD [address] [facility] [address] [place] [id number] Social History Tobacco UseTypesPacks/DayYears UsedDateSmoking Tobacco: FormerCigarettesQuit: 08/15/1999Smokeless Tobacco: NeverAlcohol UseStandard Drinks/WeekCommentsNot Currently0 (1 standard drink = 0.6 oz pure alcohol)Caffeine: 1-2 cups per day; none soda/popPHQ-2AnswerDate RecordedPatient Health Questionnaire-2 Score1 06/17/2025CommentsUnknownSex and Gender InformationValueDate RecordedSex Assigned at BirthNot on fileLegal NuqRgawod47/15/2023 6:38 PM EDTGender Identity Not on fileSexual OrientationNot on filedocumented as of this encounter Plan of Treatment DateTypeDepartmentCare Team (Latest Contact Info)Isqoquxrqxi27/30/2026 11:30 AM EDTOffice Visit [facility] [place] [facility] [address] [facility] [address] [place] [address] Kofi Bowers MD [address] [facility] [address] [place], [place] [phone] documented as of this encounter Visit Diagnoses Not on filedocumented in this encounter Additional Health Concerns AssessmentNoted TimePHQ-9 Depression Total Score: 10:00 AM EDT documented as of this encounter Care Teams Team MemberRelationshipSpecialtyStart DateEnd Date Kofi Bowers MD [address] [facility] [address] [place] [address] PCP - GeneralInternal Medicine12/22/22documented as of this encounter
--- OUTSIDE RECORDS SUMMARY | 2025-08-05 13:25 | XMS_ITS | Clinical Summary ---
Author Organization [facility] Address [address] [place] [address] Care Team Providers Care Service Center Assistant Name Role Phone Kofi Bowers MD Primary Care Provider [phone] Allergies Active AllergyReactionsCriticalityNoted DateCommentsIodineShortness of breath High12/14/20220439BcltatrxtfjjZyaum03/02/1451OgkhibopiiZzxxyuhwg83/02/2023Shellfish MdywowyZhfwftub81/12/2014 Medications MedicationSigDispense QuantityRefillsLast FilledStart DateEnd DateStatus aspirin [...] same time.Active cholecalciferol (Vitamin D-3) 1.25 MG (72320 UT) tablet Vitamin D3 5000IUActive Calcium Citrate-Vitamin [...] capsule Take 50 mg by mouth at ozfvlvq94/02/2025Active Glucose Blood (Blood Glucose Test) strip Indications:Type 2 diabetes mellitus with hyperglycemia, without long-term current use of insulin ([facility])1 each by In Vitro route Daily 100 strip 5Active Blood Glucose Monitoring Suppl (Blood Glucose Monitor System) w/Device kit Indications:Type 2 diabetes mellitus with hyperglycemia, without long-term current use of insulin ([facility])1 each Daily 1 kit 5Active Lancets 30G [facility] Indications:Type 2 diabetes mellitus with hyperglycemia, without long-term current use of insulin ([facility])1 each Daily 100 each 5Active Alcohol Swabs (Alcohol Prep) 70 % pads Indications:Type 2 diabetes mellitus with hyperglycemia, without long-term current use of insulin ([facility])1 Pad Daily 100 each 5Active pen needle 32G x 4 mm misc Indications:Type 2 diabetes mellitus with hyperglycemia, with long-term current use of insulin ([facility])Inject 1 each under the skin Daily 100 each 5Active empagliflozin (Jardiance) 10 MG Indications:Diabetes mellitus type 2 with neurological manifestations (HCC)Take 1 tablet (10 mg) by mouth Daily 30 tablet [id number] liothyronine (Cytomel) 25 MCG tablet Indications:Hypothyroidism, unspecified type0.5 tablet on an empty stomach Orally two times daily. D.A.W. as Sigma or GreenCIQUAL Brand ONLY for90 days 200 tablet 5Active [...] obesity due to excess calories 08/28/2024Restless leg ngkabitn03/05/8448Gdjpojy34/14/2024Ectropion of lower pofccc5903/11/2023losed fracture of orbital floor (blow-out)03/11/2023iplopia 03/11/2023 Overview (03/11/2023): Removal Reason: Resolved. Fracture of orbit03/11/2023Fracture of radial neck03/11/2023ain in elbow 03/11/2023Venous hypertension of lower xwptumwqf35/09/2023denomatous polyp of ascending colon12/14/2022enign essential ulvoknyjlxeu41/02/2023hronic fatigue 12/14/2022hronic pain coydnknb47/02/2023ontinuous positive airway pressure /02/2023ecreased estrogen level12/14/2022iabetes mellitus type 2 with neurological cevyrpwswcmhrj72/02/2023Type 2 diabetes mellitus with itlojhxcpjfvk23/02/2023iabetic retinopathy associated with controlled type 2 diabetes /02/2023ifficulty in walking, not elsewhere classified 12/14/2022ESS (euthyroid sick syndrome)12/14/2022Failed back chixltgk73/02/2023 GERD (gastroesophageal reflux disease)12/14/2022Sleep initiation disorder 12/14/2022Mixed outwbnqdmmacja44/02/2023Non-seasonal allergic rsudofgz34/02/2023 Dojfmxtikw33/02/2023eripheral vascular dhceeih6012/14/2022eripheral venous lzlhfohwogoge78/02/2023Trigger thumb, left thumb12/14/2022Vitreous floaters of both eyes12/14/20220546Owaclzry20/25/2022cquired trigger fdodlg7501/15/2021ody mass index (BMI) 35.0-35.9, adult04/21/2020OSA (obstructive sleep apnea)04/11/2019 Overview (03/11/2023): Last Assessment & Plan: Continue to wear cpap Benign neoplasm of colon06/27/2018History of colonic bnlxnj6506/01/2018Family history of malignant neoplasm of gastrointestinal tract06/01/2018Lipoprotein deficiency vuhlvodg22/17/2018Long term current use of ltqxlzd6301/28/2016 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[facility])11/25/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-kmzjnh7910/22/2015History of fall10/02/20158031Zzeqprru80/27/2015Diabetic polyneuropathy associated with type 2 diabetes xnmdwuwj60/01/1814Erfpldwg66/12/7589Kjegjhcgzjqfox64/12/2014 Resolved Problems ProblemNoted DateDiagnosed DateResolved DateLow HDL (under 40)12/14/2022 12/14/2022 Encounters DateTypeDepartmentCare VfrmZgbzhteftre76/22/2025bstract [facility] [place] [facility] [address] [place] [address] Kofi Bowers MD 08/01/2025Telephone [facility] [place] [facility] [address] [place] [address] Kofi Bowers MD 07/29/2025Refill [facility] [place] [facility] [address] [place] [address] Kofi Bowers MD Acute myofascial strain of lumbar region, subsequent /11/2025 Telephone [facility] [place] [facility] [address] [place] [address] Kofi Bowers MD 07/22/2025bstract [facility] [place] [facility] [address] [place] [address] Kofi Bowers MD 07/01/2025Refill [facility] [place] [facility] [address] [place] [address] Kofi Bowers MD Type 2 diabetes mellitus with hyperglycemia, with long-term current use of insulin (HCC); Failed back akpsvoam10/03/2025 11:30 AM ESTOffice Visit [facility] [place] [facility] [address] [place] [address] Kofi Bowers MD Acute myofascial strain of lumbar region, subsequent encounter; Need for /03/2025amboo flowsheet [facility] [place] [facility] [address] [place] [address] Kofi Bowers MD 06/17/20257130Yvhuft07/24/2025Telephone [facility] [place] [facility] [address] [place] [address] Kofi Bowers MD 06/06/2025 9:00 AM EDTOffice Visit [facility] [place] [facility] [address] [place] [address] Kofi Bowers MD Acute myofascial strain of lumbar region, initial encounter (Primary Dx) 06/06/2025amboo flowsheet [facility] [address] [facility] [address] [place] [address] Kofi Bowers MD 06/06/20258678Pinsrt08/07/2025bstract [facility] [address] [facility] [address] [place] [address] Kofi Bowers MD 05/13/2025Telephone [facility] [address] [facility] [address] [place] [address] Kofi Bowers MD 05/06/2025bstract [facility] [address] [facility] [address] [place] [address] Kofi Bwoers MD from Last 3 Months Immunizations ImmunizationAdministration DatesNext DueABRYSVO - Respiratory syncytial virus (RSV), vaccine, bivalent, protein subunit RSV prefusion F, diluent reconstituted, 0.5 mL, PF06/20/2024Influenza, High Dose Seasonal, Preservative Free06/17/2025,06/20/2024,09/15/2020Influenza, High-dose Seasonal, Quadrivalent, Preservative Free06/06/2023Influenza, Recombinant, injectable, preservative free 05/15/2020Influenza, injectable, MDCK, preservative free, yuvvhfehaucc25/06/2021 Influenza, injectable, quadrivalent, preservative free06/15/2019,05/22/2018, 08/02/2015Pneumococcal Polysaccharide ISQG7978Td (adult), 5 Lf tetanus toxoid, preservative free, /17/2015Zoster, Dhrupoxtzdl58/29/2025, 12/07/2024 Family History Medical HistoryRelationNameCommentsCancerBrotherColon ; Didn't indicate which brother among the 3Heart diseaseBrotherPassed ; Didn't indicate which brother among the 3Kidney problemBrotherPassed ; Didn't indicate which brother among the 3CancerFatherDiabetesFatherHeart diseaseFatherHypertensionFatherCancerMother Colon CancerCancerOtherSpouse: Prostate that metastisized to bone ; Eryhtroid LeukemiaDiabetesSonTourette wnmxqpriNniXfroctpnRgjfEhaovcTsjbvvisSyncnlbs6Nxquiu VcpoftzfVggwrqIkfudtbzPixdwGiiijvqqGsrmndt2OxsJtqra Social History Tobacco UseTypesPacks/DayYears UsedDateSmoking Tobacco: FormerCigarettesQuit: 08/15/1999Smokeless Tobacco: Never Tobacco Cessation:Counseling Given: Yes Alcohol UseStandard Drinks/WeekCommentsNot Currently0 (1 standard drink = 0.6 oz pure alcohol)Caffeine: 1-2 cups per day; none soda/popPHQ-2AnswerDate Recorded Patient Health Questionnaire-2 Agood507CommentsUnknownSex and Gender InformationValueDate RecordedSex Assigned at BirthNot on fileLegal Sex Tylzdt7910/27/2022 6:38 PM EDTGender IdentityNot on fileSexual OrientationNot on file Last Filed Vital Signs Vital SignReadingTime TakenCommentsBlood Cbdvrgmf072/6006/17/2025 11:32 AM EST Ojmdm269106/17/2025 11:32 AM UUFMaomvhfkcpu06.4 ??C (97.5 ??F)02/08/2025 11:07 AM EDTRespiratory Vhfz692608/17/2024 11:32 AM ESTOxygen Sgehhakqjo43%06/17/2025 11:32 AM ESTInhaled Oxygen Concentration--Nhsdhs48 kg (194 lb)06/17/2025 11:32 AM EST Uouvls160.4 cm (5')06/17/2025 11:32 AM ESTBody Mass Index37.8906/17/2025 11:32 AM EST Plan of Treatment DateTypeDepartmentCare Team (Latest Contact Info)Srjgpnmytyr58/30/2026 11:30 AM EDTOffice Visit [facility] [place] [facility] [address] [facility] [address] [place] [address] Kofi Bowers MD [address] [facility] [address] [place] [address] Health MaintenanceDue DateLast DoneCommentsPneumococcal Vaccine: 65+ Years (2 of 2 - PCV)COVID-19 Vaccine (3 - 2024- season)2025 10/01/2020, 1Diabetes: Hemoglobin A1C5004/17/2025, 03/07/2025, 01/14/2025, Additional history existsMedicare Annual Wellness (AWV)04/17/2026 04/17/2025, 04/09/2024, 01/03/2023, Additional history existsDiabetes: Urine Protein Jvcfbazxu21/12/2024, 04/09/2024, 01/18/2024, Additional history existsDiabetes: Retinopathy Ehylmryix27/, 05/03/2024, 04/28/2020, Additional history existsInfluenza QwawkhwZpzyzpgvn49/03/2025, 06/20/2024, 06/06/2023, Additional history exists Procedures Procedure NamePriorityDate/TimeAssociated DiagnosisCommentsDIABETIC RETINOPATHY SCREENING - OU - BOTH OYMFSprfrpg61/22/2025 MICROALBUMIN / CREATININE URINE DRADGQitktua44/05/2025 9:53 AM EDT Diabetes mellitus type 2 with neurological manifestations (HCC) POCT GLYCATED HEMOGLOBIN, UOIMUWpjhave08/03/2025 11:24 AM EDT Diabetes mellitus type 2 with neurological manifestations (HCC) from Last 3 Months or Most Recently Relevant to Health Maintenance Results * Diabetic Retinopathy Screening - OU - Both Eyes (05/06/2025)ComponentValueRef RangeTest MethodAnalysis TimePerformed AtPathologist SignatureRESULTSndr Anatomical RegionLateralityModalityHeadOtherSpecimen (Source)Anatomical Location / LateralityCollection Method / VolumeCollection TimeReceived Time 05/06/2025 Narrative Authorizing ProviderResult TypeResult StatusDajosé Bowers [facility] PHOTOGRAPHY Final Result * Microalbumin / creatinine urine ratio (04/19/2025 9:53 AM EDT)ComponentValue Ref RangeTest MethodAnalysis TimePerformed AtPathologist SignatureCREATININE, RANDOM MWJFA3505 - 275 mg/dLQUESTALBUMIN, URINE0.3See Note: mg/dLQUESTComment: Reference [...] specimen obtained by clean catch procedure / Gzuuvcd0704/19/2025 9:53 AM EDT04/19/2025 9:53 AM EDT Narrative [facility] - 2025 11:17 AM EDT FASTING:YES FASTING: YES Resulting Agency Comment Performing Organization Information ?Site ID: [id number] ?Name: [facility] ?Address: [address] [place] [address], [address] [place] [id number] ?Director: Cezar Singh MD Authorizing ProviderResult TypeResult Jorge Luis Bowers MDLAB URINE ORDERABLESFinal ResultPerforming OrganizationAddressCity/State/ZIP CodePhone Number [facility] * POCT Glycated hemoglobin, total (04/17/2025 11:24 AM EDT)ComponentValueRef RangeTest MethodAnalysis TimePerformed AtPathologist SignatureHemoglobin A1C 7.8Specimen (Source)Anatomical Location / LateralityCollection Method / Volume Collection TimeReceived RtnbTdzmx03/03/2025 11:24 AM EDT Narrative Authorizing ProviderResult TypeResult Jorge Luis Bowers MDPOINT OF CARE TEST ENTER/EDIT ORDERABLESFinal Result from Last 3 Months or Most Recently Relevant to Health Maintenance Insurance Care Teams Team MemberRelationshipSpecialtyStart DateEnd Kofi Bowers MD [address] [facility] [address] [place] [address] PCP - GeneralInternal Medicine12/22/22
--- OUTSIDE RECORDS SUMMARY | 2025-08-05 13:25 | XMS_ITS | Encounter Summary ---
Author Organization [facility] Address [address] [place] [address] Care Team Providers Care Software Engineer Intern Name Role Phone Kofi Bowers MD Primary Care Provider [phone] Encounter Details DateTypeDepartmentCare Team (Latest Contact Info)Ngxnuamhjry36/18/2025Telephone [facility] [place] [facility] [address] [place] [address] Kofi Bowers MD [address] [facility] [address] [place] [address] Social History Tobacco UseTypesPacks/DayYears UsedDateSmoking Tobacco: FormerCigarettesQuit: 08/15/1999Smokeless Tobacco: NeverAlcohol UseStandard Drinks/WeekCommentsNot Currently0 (1 standard drink = 0.6 oz pure alcohol)Caffeine: 1-2 cups per day; none soda/popPHQ-2AnswerDate RecordedPatient Health Questionnaire-2 Score1 06/17/2025CommentsUnknownSex and Gender InformationValueDate RecordedSex Assigned at BirthNot on fileLegal EcwQlyfmz41/15/2023 6:38 PM EDTGender Identity Not on fileSexual OrientationNot on filedocumented as of this encounter Miscellaneous Notes * Telephone Encounter - MAREK CORONEL - 08/01/2025 1:45 PM EST Patient notified * Telephone Encounter - MAREK CORONEL - 08/01/2025 10:47 AM EST Patient called and states that the muscle relaxer is not helping. She is wondering if she can take 2 pills? Please advise documented in this encounter Plan of Treatment DateTypeDepartmentCare Team (Latest Contact Info)Kycnhelfwhg87/30/2026 11:30 AM EDTOffice Visit [facility] [place] [facility] [address] [facility] [address] [place] [address] Kofi Bowers MD [address] [place] [address] documented as of this encounter Visit Diagnoses Not on filedocumented in this encounter Additional Health Concerns AssessmentNoted TimePHQ-9 Depression Total Score: 10:00 AM EDT documented as of this encounter Care Teams Team MemberRelationshipSpecialtyStart DateEnd Date Kofi Bowers MD [address] [facility] [address] [place] [address] PCP - GeneralInternal Medicine12/22/22documented as of this encounter
--- OUTSIDE RECORDS SUMMARY | 2025-08-05 13:25 | XMS_ITS | Encounter Summary ---
Author Organization [facility] Address [address] [place] [address] Care Team Providers Care Carboy Filler Name Role Phone Kofi Bowers MD Primary Care Provider [phone] Encounter Details DateTypeDepartmentCare Team (Latest Contact Info)Gbqmgfbksti00/11/2025Telephone [facility] [place] [facility] [address] [place] [address] Kofi Bowers MD [address] [facility] [address] [place] [address] Social History Tobacco UseTypesPacks/DayYears UsedDateSmoking Tobacco: FormerCigarettesQuit: 08/15/1999Smokeless Tobacco: NeverAlcohol UseStandard Drinks/WeekCommentsNot Currently0 (1 standard drink = 0.6 oz pure alcohol)Caffeine: 1-2 cups per day; none soda/popPHQ-2AnswerDate RecordedPatient Health Questionnaire-2 Score1 06/17/2025CommentsUnknownSex and Gender InformationValueDate RecordedSex Assigned at BirthNot on fileLegal PsuIpvntw95/15/2023 6:38 PM EDTGender Identity Not on fileSexual [...] Plan of Treatment DateTypeDepartmentCare Team (Latest Contact Info)Dpmckirzghv98/30/2026 11:30 AM EDTOffice Visit [facility] [place] [facility] [address] [place] [address] Kofi Bowers MD [address] [place] [address] documented as of this encounter Visit Diagnoses Not on filedocumented in this encounter Additional Health Concerns AssessmentNoted TimePHQ-9 Depression Total Score: 10:00 AM EDT documented as of this encounter Care Teams Team MemberRelationshipSpecialtyStart DateEnd Date Kofi Bowers MD [address] [place] [address] PCP - GeneralInternal Medicine12/22/22documented as of this encounter
--- NOTE | 2025-08-05 15:24 | PM.CN ---
Consult Note: HPI Data of Consult Patient: known to practice within the last 3 years Consult date: 08/05/25 Requesting Physician: Zoila Kenyon NP Primary Care Provider: BELEN ZALDIVAR Consult Narrative Reason for consult: low back pain Narrative: 80yof who presents for assessment. notes increasing axial low back pain that is worsened with standing and ambulation. imaging reviewed, significant for fusion from l3-s1, severe spondylosis at levels above hardware. has continued in a series of provider directed home exercises >6 weeks, without lasting benefit. uses pain medicine as needed. cc:: CC: Zoila Kenyon NP Review of Systems ROS Status of ROS 10 or more systems reviewed and unremarkable except as noted in history and below [facility] Medical History Facial trauma (~2016) ?S09.93XA - Unspecified injury of face, initial encounter (ICD-10) Chronic insomnia ?F51.04 - Psychophysiologic insomnia (ICD-10) Low iron ?E61.1 - Iron deficiency (ICD-10) Pneumonia ?J18.9 - Pneumonia, unspecified organism (ICD-10) Restless leg ?G25.81 - Restless legs syndrome (ICD-10) GERD (gastroesophageal reflux disease) ?K21.9 - Gastro-esophageal reflux disease without esophagitis (ICD-10) Activity intolerance ?R68.89 - Other general symptoms and signs (ICD-10) Extremity edema ?R60.0 - Localized edema (ICD-10) Diabetes ?E11.9 - Type 2 diabetes mellitus without complications (ICD-10) Hypothyroidism ?E03.9 - Hypothyroidism, unspecified (ICD-10) Low back pain ?M54.50 - Low back pain, unspecified (ICD-10) Osteoarthritis ?M19.90 - Unspecified osteoarthritis, unspecified site (ICD-10) Diabetes 1.5, managed as type 2 ?E13.9 - Other specified diabetes mellitus without complications (ICD-10) Sleep apnea ?G47.30 - Sleep apnea, unspecified (ICD-10) High cholesterol ?E78.00 - Pure hypercholesterolemia, unspecified (ICD-10) Hypertension ?I10 - Essential (primary) hypertension (ICD-10) Surgical History History of facial surgery (~2017) ?Z98.890 - Other specified postprocedural states (ICD-10) History of colonoscopy ?Z98.890 - Other specified postprocedural states (ICD-10) History of radiofrequency ablation (RFA) of nerve of lumbar spine ?Z98.890 - Other specified postprocedural states (ICD-10) S/P epidural steroid injection ?Z92.241 - Personal history of systemic steroid therapy (ICD-10) Previous back surgery ?Z98.890 - Other specified postprocedural states (ICD-10) History of cholecystectomy ?Z90.49 - Acquired absence of other specified parts of digestive tract (ICD-10) Hx of tonsillectomy ?Z90.89 - Acquired absence of other organs (ICD-10) History of appendectomy ?Z90.49 - Acquired absence of other specified parts of digestive tract (ICD-10) Family History Other Cancer Family history of coronary artery disease Family history of diabetes mellitus Family history of heart disease Family history of hypertension Social History Within the past year, how often did you have a drink containing alcohol: never Score interpretation: A score less than 3 is consistent with normal alcohol consumption. Smoking status: Never smoker Non-prescribed substance use: denies use Highest level of school completed/degree received: Associate degree: occupational, technical, vocational program Little interest or pleasure in doing things: not at all Feeling down, depressed, or hopeless: not at all Meds Home Medications and Allergies Home Medications ?Medication ?Instructions ?Recorded ?Confirmed ?Type acarbose 100 mg tablet 100 mg PO BID 10/19/23 08/01/25 History amlodipine 10 mg tablet 10 mg PO DAILY 10/19/23 08/01/25 History aspirin 81 mg capsule 81 mg PO DAILY 10/19/23 08/01/25 History furosemide 40 mg tablet 40 mg PO DAILY 10/19/23 08/01/25 History liothyronine 25 mcg tablet 12.5 mcg PO BID 10/19/23 08/01/25 History loratadine 10 mg tablet 10 mg PO DAILY PRN allergic 10/19/23 08/01/25 History symptoms losartan 100 1 tab PO DAILY 10/19/23 08/01/25 History mg-hydrochlorothiazide 25 mg tablet omeprazole 20 mg capsule,delayed 20 mg PO DAILY 10/19/23 08/01/25 History release quetiapine 50 mg tablet 50 mg PO DAILY 10/19/23 08/01/25 History tramadol 50 mg tablet 100 mg PO Q12H PRN pain 10/19/23 08/01/25 History acetaminophen 500 mg capsule 1,000 mg PO BID 07/18/24 08/01/25 History ascorbic acid (vitamin C) 500 mg 500 mg PO BID 07/18/24 08/01/25 History capsule calcium 600 mg (as 1 tab PO DAILY 07/18/24 08/01/25 History carbonate)-vitamin D3 5 mcg (200 unit) tablet (Calcium 600 + D(3)) cholecalciferol (vitamin D3) 125 5,000 unit PO DAILY 07/18/24 08/01/25 History mcg (5,000 unit) capsule vitamin B complex (B-Complex 1 tab PO DAILY 07/18/24 08/01/25 History tablet) vitamin E 268 mg (400 unit) capsule 268 mg PO BID 07/18/24 08/01/25 History baclofen 10 mg tablet 10 mg PO BID PRN muscle spasm 10/29/24 08/01/25 History zonisamide 50 mg capsule 50 mg PO BEDTIME 02/19/25 08/01/25 History empagliflozin 10 mg tablet 10 mg PO DAILY 07/04/25 08/01/25 History (Jardiance) insulin glargine 100 unit/mL 60 unit subcut DAILY 07/04/25 08/01/25 History subcutaneous solution (Lantus U-100 Insulin) baclofen 10 mg tablet 10 mg PO TID PRN muscle spasm #90 07/31/25 08/01/25 Rx tabs Allergies Allergy/AdvReac Type Severity Reaction Status Date / Time iodine Allergy Severe Anaphylaxis Verified 07/04/25 07:59 levofloxacin (From Levaquin) Allergy Rash Verified 07/04/25 07:59 Exam Narrative Exam Narrative: Psych-alert and oriented x 3. Attentive and appropriate, constitutionally normal, displays normal mood and affect per situation.? There are no obvious deficits in memory, reasoning, or intellect.? Skin-no obvious rashes, bruising, erythema noted to the patient's area of pain. Extremities- extremities are warm with minimal edema and palpable pulses. Lumbar-no significant tenderness to palpation noted in the lumbar spine and paraspinal musculature.? Pain is elicited with extension, and lateral rotation of the lumbar spine. Range of motion is slightly diminished with these motions due to pain. Facet loading maneuvers are positive bilaterally and do appear to be concordant with the patient's normal complaints of pain.? Coordination remains intact.? Gait remains non-antalgic. Assessment and Plan Assessment and Plan (1) Lumbar spondylosis: Plan 80yof who presents for assessment. failed conservative measures, as noted. imaging reviewed, as noted. given symptoms and imaging, prudent to attempt diagnostic bilateral l1-2, l2-3 mbb under fluoroscopic guidance with intention of proceeding to radiofrequency ablation. also will order lumbar xr. she is in agreement. meds reviewed, no changes. follow up after procedure.
== END 2025-08-05 13:22 | disposition home or self-care (01) ==
LOC: PM 13:22
PROVIDERS: PCP Internal Medicine; Visit Provider Nurse Practitioner
DX: M47.816 Spondylosis without myelopathy or radiculopathy, lumbar region (principal); M85.88 Other specified disorders of bone density and structure, other site; M51.369 Other intervertebral disc degeneration, lumbar region without mention of lumbar back pain or lower extremity pain
CPT/HCPCS: 72110; G0463

== ENCOUNTER 2025-08-05 14:35 | Outpatient (OUT) | payer MEDICARE, SELFPAY ==
--- OUTSIDE RECORDS SUMMARY | 2025-08-05 14:39 | XMS_ITS | Clinical Summary ---
Author Organization [facility] Address [facility] [place] [address] Care Team Providers Care Cable Assembler Name Role Phone Unavailable Primary Care Provider Unavailabl e Allergies Active AllergyReactionsCriticalityNoted UccxHxzbvynsXoyodnMgbavmtm13/12/2014 PcsgkjyvoOofjleku76/12/2014 Medications MedicationSigDispense QuantityRefillsLast FilledStart DateEnd DateStatus meloxicam [...] to affected area.Active Active Problems ProblemNoted DateDiagnosed LxbtMuyxsrvdnzjylv02/12/5996Qevcburq78/12/2014Obesity 01/24/2014 Social History Tobacco UseTypesPacks/DayYears UsedDateSmoking Tobacco: Never Assessed CommentsUnknownSex and Gender InformationValueDate RecordedSex Assigned at Not on fileLegal CoeWgsdht87/02/2012 10:41 AM ESTGender IdentityNot on file Sexual OrientationNot on file Last Filed Vital Signs Vital SignReadingTime TakenCommentsBlood Xuhxluyf753/6006 12:45 PM EDT Smajk6667 12:45 PM EDTTemperature--Respiratory Rate--Oxygen Saturation-- Inhaled Oxygen Concentration--Weight--Height--Body Mass Index-- Plan of Treatment Health MaintenanceDue DateLast DoneCommentsAnxiety Rsrpcwchc94/06/1963Depression Ifcfxdddv58/06/1963DTaP,Tdap,Td Vaccine (1 - Tdap)1964Diabetes Screening 1990Pneumococcal Vaccine: 50+ (1 of 1 - PCV)1995Shingrix Vaccine (1 of 2)1995Bone Density Zwwlkbnic90/06/2010RSV Vaccine (1 - 1-dose 75+ series)2020Advance Directive Hpppizwbnk74/01/2025ovid-19 Vaccine (1 - 2024-26 season)2025Influenza Vaccine (#1)2025 Insurance
--- OUTSIDE RECORDS SUMMARY | 2025-08-05 14:39 | XMS_ITS | Encounter Summary ---
Author Organization [facility] Address [address] [place] [facility] [place] [address] Care Team Providers Care Hide Stretcher Hand Name Role Phone Kofi Bowers MD Primary Care Provider [phone] Reason for Visit * ReasonOnset DateCommentsMed Dwvlob3007/29/2025 Encounter Details DateTypeDepartmentCare Team (Latest Contact Info)Xlwrpjeesdr98/15/2025Refill [facility] [place] [facility] [address] [facility] [address] [place] [address] Kofi Bowers MD [address] [facility] [address] [place], [place] [address] Acute myofascial strain of lumbar region, subsequent encounter Social History Tobacco UseTypesPacks/DayYears UsedDateSmoking Tobacco: FormerCigarettesQuit: 08/15/1999Smokeless Tobacco: NeverAlcohol UseStandard Drinks/WeekCommentsNot Currently0 (1 standard drink = 0.6 oz pure alcohol)Caffeine: 1-2 cups per day; none soda/popPHQ-2AnswerDate RecordedPatient Health Questionnaire-2 Score1 06/17/2025CommentsUnknownSex and Gender InformationValueDate RecordedSex Assigned at BirthNot on fileLegal DpbNlwbrd61/15/2023 6:38 PM EDTGender Identity Not on fileSexual OrientationNot on filedocumented as of this encounter Plan of Treatment DateTypeDepartmentCare Team (Latest Contact Info)Ifccqyqkzkw91/30/2026 11:30 AM EDTOffice Visit [facility] [place] [facility] [address] [facility] [address] [place] [address] Kofi Bowers MD [address] [place] [address] documented as of this encounter Visit Diagnoses Diagnosis Acute myofascial strain of lumbar region, subsequent encounter documented in this encounter Additional Health Concerns AssessmentNoted TimePHQ-9 Depression Total Score: 308 10:00 AM EDT documented as of this encounter Care Teams Team MemberRelationshipSpecialtyStart DateEnd Date Kofi Bowers MD [address] [facility] [address] [place] [address] PCP - GeneralInternal Medicine12/22/22documented as of this encounter
--- OUTSIDE RECORDS SUMMARY | 2025-08-05 14:39 | XMS_ITS | Clinical Summary ---
Author Organization [facility] Address [address] [place] [address] Care Team Providers Care Baker Name Role Phone Kofi Bowers MD Primary Care Provider [phone] Allergies Active AllergyReactionsCriticalityNoted DateCommentsIodineAnaphylaxisHigh 04/08/20227973Ohsjjvbklydy56/25/2022regabalinDizziness,Ucqamfv6902/24/2021hellfish Containing RvzhmjqwOfjlhxnb81/12/2014 Medications MedicationSigDispense QuantityRefillsLast FilledStart DateEnd DateStatus acarbose [...] Problems ProblemNoted DateDiagnosed DateVenous hypertension of lower wloiveqez72/09/2023 Trigger thumb, left thumb12/14/20225963Kjsqbrighb32/02/2023Failed back syndrome 12/14/2022ecreased estrogen level12/14/2022denomatous polyp of ascending colon 12/14/2022OSA (obstructive sleep apnea)04/28/2022 Assessment & Plan (06/01/2022 2:23 PM EDT): Continue to wear cpap Assessment & Plan (04/28/2022 2:06 PM EDT): F/U with PCP for further management Closed fracture of orbital floor (blow-out)04/08/20220775Hlohsvav24/25/2022Fracture of orbit04/08/2022Fracture of radial neck04/08/2022ain in elbow04/08/2022 Hypertensive /30/2021 Assessment & Plan (06/01/2022 2:21 PM EDT): [...] 0.85 normal K+ 4.8 normal Acquired trigger snkixl7601/15/2021Non-seasonal allergic hrslawws90/25/2021 Vitreous floaters of both eyes04/29/2020Diabetic retinopathy associated with controlled type 2 diabetes vdibablz33/15/2020Continuous positive airway pressure hpqfonykg85/18/2020Failed back nfpuvphf58/04/2018Benign neoplasm of colon 06/27/2018History of colonic yzznco0406/01/2018Family history of malignant neoplasm of gastrointestinal tract06/01/2018Lipoprotein deficiency disorder 05/01/2018Long term current use of dloqksy4201/28/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 oelnkzh7311/25/2015Ex-vpijum5810/22/2015History of fall10/02/2015Disability of ohvhfme8310/02/20154081Bufsggnu14/27/2015Mixed podgrxlrhuyjta36/27/2015GERD (gastroesophageal reflux disease)06/10/2015ESS (euthyroid sick syndrome) 06/10/2015Type 2 diabetes mellitus with cemyvpbcvhngx06/27/2015Chronic pain bdbytnss48/27/2015Chronic qhqxqyh9106/10/2015Benign essential hypertension 06/10/20157834Sliastyddh54/27/2015Peripheral venous qcqfxmucnhkfg28/01/2015Diabetic polyneuropathy associated with type 2 diabetes zepjheli61/01/2015Obesity 01/24/20145000Fbodywjh93/12/3191Dpebffnhiwywql68/12/2014 Immunizations ImmunizationAdministration DatesNext DueInfluenza, High Dose Seasonal, Preservative Free09/15/2020,05/15/2020Influenza, injectable, MDCK, preservative free, rpkrfqqxzpan96/06/2021Influenza, injectable, quadrivalent, preservative free06/15/2019,05/22/2018Influenza, seasonal, dswhgzehpd76/14/2019Unspecified Sars-Cov-2 Sjzgnpmpeky97/17/2021,09/10/2020 Family History Medical HistoryRelationNameCommentsCoronary artery diseaseBrotherCoronary artery [...] ValueDate RecordedSex Assigned at BirthNot on fileLegal EmaHolydy74/29/2022 11:38 PM EDTGender IdentityNot on fileSexual OrientationNot on file Last Filed Vital Signs Vital SignReadingTime TakenCommentsBlood Bttyqhco868/78001/03/2023 11:10 AM EDT Reiks3796/22/2023 11:10 AM EDTTemperature--Respiratory Rate--Oxygen Saturation 98%01/03/2023 11:10 AM EDTInhaled Oxygen Concentration--Pncumq23.9 kg (189 lb 6.4 oz)01/03/2023 11:10 AM MTFZlhgzv425.4 cm (5')01/03/2023 11:10 AM EDTBody Mass Index36.9901/03/2023 11:10 AM EDT Plan of Treatment Health MaintenanceDue DateLast DoneCommentsDiabetes: Hemoglobin A1C1945 Medicare Annual Wellness (AWV)1945Diabetes: Retinopathy Screening 1955Depression Ypoeaaybn28/06/1957Fall Risk Gnsfpmnwc79/06/2010 Pneumococcal Vaccine: 50+ Years (2 of 2 - PCV)Diabetes: Urine Protein Aytcnvmgd73, 01/19/2018, 10/28/2016, Additional history existsZoster Vaccines (2 [...] [place] TypeRelation to PatientDate of BirthPhone Billing AddressPersonal/BwgskcCphp1945 [address] [place] [address] Care Teams Team MemberRelationshipSpecialtyStart DateEnd Date Kofi Bowers MD [address] [place] [address] [facility]04/07/22
--- OUTSIDE RECORDS SUMMARY | 2025-08-05 14:39 | XMS_ITS | Encounter Summary ---
Author Organization [facility] Address [address] [facility] [place] [address] Care Team Providers Care Project Specialist Name Role Phone Kofi Bowers MD Primary Care Provider [phone] Encounter Details DateTypeDepartmentCare Team (Latest Contact Info)Hadnqtwhfqg84/22/2025bstract [facility] [place] [facility] [address] [facility] [address] [place] [address] Kofi Bowers MD [address] [facility] [address] [place] [id number] Social History Tobacco UseTypesPacks/DayYears UsedDateSmoking Tobacco: FormerCigarettesQuit: 08/15/1999Smokeless Tobacco: NeverAlcohol UseStandard Drinks/WeekCommentsNot Currently0 (1 standard drink = 0.6 oz pure alcohol)Caffeine: 1-2 cups per day; none soda/popPHQ-2AnswerDate RecordedPatient Health Questionnaire-2 Score1 06/17/2025CommentsUnknownSex and Gender InformationValueDate RecordedSex Assigned at BirthNot on fileLegal EdgEojdlc50/15/2023 6:38 PM EDTGender Identity Not on fileSexual OrientationNot on filedocumented as of this encounter Plan of Treatment DateTypeDepartmentCare Team (Latest Contact Info)Ennqygnujwh25/30/2026 11:30 AM EDTOffice Visit [facility] [place] [facility] [address] [facility] [address] [place] [address] Kofi Bowers MD [address] [facility] [address] [place], [place] [id number] documented as of this encounter Visit Diagnoses Not on filedocumented in this encounter Additional Health Concerns AssessmentNoted TimePHQ-9 Depression Total Score: 10:00 AM EDT documented as of this encounter Care Teams Team MemberRelationshipSpecialtyStart DateEnd Date Kofi Bowers MD 112 [facility] 110 [place] [address] PCP - GeneralInternal Medicine12/22/22documented as of this encounter
--- OUTSIDE RECORDS SUMMARY | 2025-08-05 14:39 | XMS_ITS | Encounter Summary ---
Author Organization [facility] Address [address] [facility] [place] [address] Care Team Providers Care User Experience Analyst Name Role Phone Kofi Bowers MD Primary Care Provider [phone] Encounter Details DateTypeDepartmentCare Team (Latest Contact Info)Mivwqadccza48/08/2025bstract [facility] [place] [facility] [address] [facility] [address] [place] [address] Kofi Bowers MD 112 [facility] [address] [place] [id number] Social History Tobacco UseTypesPacks/DayYears UsedDateSmoking Tobacco: FormerCigarettesQuit: 08/15/1999Smokeless Tobacco: NeverAlcohol UseStandard Drinks/WeekCommentsNot Currently0 (1 standard drink = 0.6 oz pure alcohol)Caffeine: 1-2 cups per day; none soda/popPHQ-2AnswerDate RecordedPatient Health Questionnaire-2 Score1 06/17/2025CommentsUnknownSex and Gender InformationValueDate RecordedSex Assigned at BirthNot on fileLegal LfgGawqxn26/15/2023 6:38 PM EDTGender Identity Not on fileSexual OrientationNot on filedocumented as of this encounter Plan of Treatment DateTypeDepartmentCare Team (Latest Contact Info)Qtmajsqgbxe73/30/2026 11:30 AM EDTOffice Visit [facility] [place] [facility] [address] [facility] 110 [place] [address] Kofi Bowers MD [address] [facility] [address] [place], [place] [phone] documented as of this encounter Visit Diagnoses Not on filedocumented in this encounter Additional Health Concerns AssessmentNoted TimePHQ-9 Depression Total Score: 10:00 AM EDT documented as of this encounter Care Teams Team MemberRelationshipSpecialtyStart DateEnd Date Kofi Bowers MD 112 [facility] 110 [place] [address] PCP - GeneralInternal Medicine12/22/22documented as of this encounter
--- OUTSIDE RECORDS SUMMARY | 2025-08-05 14:39 | XMS_ITS | Clinical Summary ---
Author Organization [facility] Address [address] [place] [address] Care Team Providers Care Retail Greeter Name Role Phone Kofi Bowers MD Primary Care Provider [phone] Allergies Active AllergyReactionsCriticalityNoted DateCommentsIodineShortness of breath High12/14/20229798CxhufelnplgqVcyno15/02/8803HdkhqywlakSgzarrndu01/02/2023Shellfish XcgdklhGshkkxcg73/12/2014 Medications MedicationSigDispense QuantityRefillsLast FilledStart DateEnd DateStatus aspirin [...] same time.Active cholecalciferol (Vitamin D-3) 1.25 MG (03853 UT) tablet Vitamin D3 5000IUActive Calcium Citrate-Vitamin [...] capsule Take 50 mg by mouth at oiuteyc57/02/2025Active Glucose Blood (Blood Glucose Test) strip Indications:Type 2 diabetes mellitus with hyperglycemia, without long-term current use of insulin ([facility])1 each by In Vitro route Daily 100 strip 5Active Blood Glucose Monitoring Suppl (Blood Glucose Monitor System) w/Device kit Indications:Type 2 diabetes mellitus with hyperglycemia, without long-term current use of insulin ([facility])1 each Daily 1 kit 5Active Lancets 30G [facility] Indications:Type 2 diabetes mellitus with hyperglycemia, without long-term current use of insulin ([facility])1 each Daily 100 each 5Active Alcohol Swabs (Alcohol Prep) 70 % pads Indications:Type 2 diabetes mellitus with hyperglycemia, without long-term current use of insulin ([facility])1 Pad Daily 100 each 5Active pen needle 32G x 4 mm misc Indications:Type 2 diabetes mellitus with hyperglycemia, with long-term current use of insulin ([facility])Inject 1 each under the skin Daily 100 each 5Active empagliflozin (Jardiance) 10 MG Indications:Diabetes mellitus type 2 with neurological manifestations (HCC)Take 1 tablet (10 mg) by mouth Daily 30 tablet [id number] liothyronine (Cytomel) 25 MCG tablet Indications:Hypothyroidism, unspecified type0.5 tablet on an empty stomach Orally two times daily. D.A.W. as [employer] or [employer] Brand ONLY for90 days 200 tablet [...] obesity due to excess calories 08/28/2024Restless leg jmwtfqzo73/05/1464Zmubdmn89/14/2024Ectropion of lower haaudz5803/11/2023losed fracture of orbital floor (blow-out)03/11/2023iplopia 03/11/2023 Overview (03/11/2023): Removal Reason: Resolved. Fracture of orbit03/11/2023Fracture of radial neck03/11/2023ain in elbow 03/11/2023Venous hypertension of lower ypohtxztq36/09/2023denomatous polyp of ascending colon12/14/2022enign essential ddqvsyuclazq88/02/2023hronic fatigue 12/14/2022hronic pain /02/2023ontinuous positive airway pressure uhszczjxy65/02/2023ecreased estrogen level12/14/2022iabetes mellitus type 2 with neurological bauoeixmidtsrw15/02/2023Type 2 diabetes mellitus with ssuypothyxgca10/02/2023iabetic retinopathy associated with controlled type 2 diabetes lavbewrg02/02/2023ifficulty in walking, not elsewhere classified 12/14/2022ESS (euthyroid sick syndrome)12/14/2022Failed back xjycgqog86/02/2023 GERD (gastroesophageal reflux disease)12/14/2022Sleep initiation disorder 12/14/2022Mixed kvagsualyoqlxi64/02/2023Non-seasonal allergic clpjlrpa02/02/2023 Izmqnotiio95/02/2023eripheral vascular jzsxvtn0412/14/2022eripheral venous rliappmsvfkuc63/02/2023Trigger thumb, left thumb12/14/2022Vitreous floaters of both eyes12/14/20229909Wstbnbxu85/25/2022cquired trigger psujsw8301/15/2021ody mass index (BMI) 35.0-35.9, adult04/21/2020OSA (obstructive sleep apnea)04/11/2019 Overview (03/11/2023): Last Assessment & Plan: Continue to wear cpap Benign neoplasm of colon06/27/2018History of colonic drutaj9606/01/2018Family history of malignant neoplasm of gastrointestinal tract06/01/2018Lipoprotein deficiency axunnlgj26/17/2018Long term current use of htlykin9401/28/2016 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[facility])11/25/2015Ex-bmqxrp6310/22/2015History of fall10/02/20159514Jrbzbysa51/27/2015Diabetic polyneuropathy associated with type 2 diabetes lhuefbkb28/01/1371Kbheympx65/12/3063Cfltdjwzosuwxb22/12/2014 Resolved Problems ProblemNoted DateDiagnosed DateResolved DateLow HDL (under 40)12/14/2022 12/14/2022 Encounters DateTypeDepartmentCare LbedEfbxlxcaevt66/22/2025bstract [facility] [place] [facility] [address] [place] [address] [place] [address] Kofi Bowers MD 08/01/2025Telephone [facility] [place] [facility] [address] [place] [address] [place] [address] Kofi Bowers MD 07/29/2025Refill [facility] [place] [facility] [address] [place] [address] [place] [address] Kofi Bowers MD Acute myofascial strain of lumbar region, subsequent lwouynuva24/11/2025 Telephone [facility] [place] [facility] [address] [place] [address] [place] [address] Kofi Bowers MD 07/22/2025bstract [facility] [place] [facility] [address] [place] [address] [place] [address] Kofi Bowers MD 07/01/2025Refill [facility] [place] [facility] [address] [place] [address] [place] [address] Kofi Bowers MD Type 2 diabetes mellitus with hyperglycemia, with long-term current use of insulin (HCC); Failed back fngremsw20/03/2025 11:30 AM ESTOffice Visit [facility] [place] [facility] [address] [place] [address] [place] [address] Kofi Bowers MD Acute myofascial strain of lumbar region, subsequent encounter; Need for joltyfpadtw01/03/2025amboo flowsheet [facility] [place] [facility] [address] [place] [address] [place] [address] Kofi Bowers MD 06/17/20253023Neoyev99/24/2025Telephone [facility] [place] [facility] [address] [place] [address] [place] [address] Kofi Bowers MD 06/06/2025 9:00 AM EDTOffice Visit [facility] [place] [facility] [address] [place] [address] [place] [address] Kofi Bowers MD Acute myofascial strain of lumbar region, initial encounter (Primary Dx) 06/06/2025amboo flowsheet [facility] [address] [facility] [address] [place] [address] Kofi Bowers MD 06/06/20253878Yowfxg73/07/2025bstract [facility] [address] [facility] [address] [place] [address] Kofi Bowers MD 05/13/2025Telephone [facility] [address] [facility] [address] [place] [address] Kofi Bowers MD 05/06/2025bstract [facility] [address] [facility] [address] [place] [address] Kofi Bowers MD from Last 3 Months Immunizations ImmunizationAdministration DatesNext DueABRYSVO - Respiratory syncytial virus (RSV), vaccine, bivalent, protein subunit RSV prefusion F, diluent reconstituted, 0.5 mL, PF06/20/2024Influenza, High Dose Seasonal, Preservative Free06/17/2025,06/20/2024,09/15/2020Influenza, High-dose Seasonal, Quadrivalent, Preservative Free06/06/2023Influenza, Recombinant, injectable, preservative free 05/15/2020Influenza, injectable, MDCK, preservative free, fmjexqzhgppf56/06/2021 Influenza, injectable, quadrivalent, preservative free06/15/2019,05/22/2018, 08/02/2015Pneumococcal Polysaccharide RXSL2456Td (adult), 5 Lf tetanus toxoid, preservative free, /17/2015Zoster, Qomvxdxihmp32/29/2025, 12/07/2024 Family History Medical HistoryRelationNameCommentsCancerBrotherColon ; Didn't indicate which brother among the 3Heart diseaseBrotherPassed ; Didn't indicate which brother among the 3Kidney problemBrotherPassed ; Didn't indicate which brother among the 3CancerFatherDiabetesFatherHeart diseaseFatherHypertensionFatherCancerMother Colon CancerCancerOtherSpouse: Prostate that metastisized to bone ; Eryhtroid LeukemiaDiabetesSonTourette yrvoyihmUovQrxbfpnuEgtcLqbappSqdiczqrPkvdwofv6Wykrho TwryokhaXqhhkdAljldhmlCavcgRsokpfkfKprllse0HltFbluc Social History Tobacco UseTypesPacks/DayYears UsedDateSmoking Tobacco: FormerCigarettesQuit: 08/15/1999Smokeless Tobacco: Never Tobacco Cessation:Counseling Given: Yes Alcohol UseStandard Drinks/WeekCommentsNot Currently0 (1 standard drink = 0.6 oz pure alcohol)Caffeine: 1-2 cups per day; none soda/popPHQ-2AnswerDate Recorded Patient Health Questionnaire-2 Qtilt668CommentsUnknownSex and Gender InformationValueDate RecordedSex Assigned at BirthNot on fileLegal Sex Plduuc9610/27/2022 6:38 PM EDTGender IdentityNot on fileSexual OrientationNot on file Last Filed Vital Signs Vital SignReadingTime TakenCommentsBlood Vurkwrcf053/6006/17/2025 11:32 AM EST Iwyir570706/17/2025 11:32 AM PCFDuqsqwvsbcg50.4 ??C (97.5 ??F)02/08/2025 11:07 AM EDTRespiratory Dgwy865108/17/2024 11:32 AM ESTOxygen Xpkqfahily51%06/17/2025 11:32 AM ESTInhaled Oxygen Concentration--Bymsek63 kg (194 lb)06/17/2025 11:32 AM EST Fscaty393.4 cm (5')06/17/2025 11:32 AM ESTBody Mass Index37.8906/17/2025 11:32 AM EST Plan of Treatment DateTypeDepartmentCare Team (Latest Contact Info)Yakhyglcfgo82/30/2026 11:30 AM EDTOffice Visit [facility] [place] [facility] [address] [facility] [address] [place] [address] Kofi Bowers MD [address] [facility] 110 [place] [address] Health MaintenanceDue DateLast DoneCommentsPneumococcal Vaccine: 65+ Years (2 of 2 - PCV)COVID-19 Vaccine (3 - 2024- season)2025 10/01/2020, 1Diabetes: Hemoglobin A1C5004/17/2025, 03/07/2025, 01/14/2025, Additional history existsMedicare Annual Wellness (AWV)04/17/2026 04/17/2025, 04/09/2024, 01/03/2023, Additional history existsDiabetes: Urine Protein Qkkujlbvk01/12/2024, 04/09/2024, 01/18/2024, Additional history existsDiabetes: Retinopathy Ovycgvbjj78/, 05/03/2024, 04/28/2020, Additional history existsInfluenza FobksllHnousbzdx78/03/2025, 06/20/2024, 06/06/2023, Additional history exists Procedures Procedure NamePriorityDate/TimeAssociated DiagnosisCommentsDIABETIC RETINOPATHY SCREENING - OU - BOTH DRMOQlfadya03/22/2025 MICROALBUMIN / CREATININE URINE QMNNKBemvxtq05/05/2025 9:53 AM EDT Diabetes mellitus type 2 with neurological manifestations (HCC) POCT GLYCATED HEMOGLOBIN, OTBDMGuffypu05/03/2025 11:24 AM EDT Diabetes mellitus type 2 with neurological manifestations (HCC) from Last 3 Months or Most Recently Relevant to Health Maintenance Results * Diabetic Retinopathy Screening - OU - Both Eyes (05/06/2025)ComponentValueRef RangeTest MethodAnalysis TimePerformed AtPathologist SignatureRESULTSndr Anatomical RegionLateralityModalityHeadOtherSpecimen (Source)Anatomical Location / LateralityCollection Method / VolumeCollection TimeReceived Time 05/06/2025 Narrative Authorizing ProviderResult TypeResult StatusDajosé Bowers [facility] PHOTOGRAPHY Final Result * Microalbumin / creatinine urine ratio (04/19/2025 9:53 AM EDT)ComponentValue Ref RangeTest MethodAnalysis TimePerformed AtPathologist SignatureCREATININE, RANDOM KGNHC9520 - 275 mg/dLQUESTALBUMIN, URINE0.3See Note: mg/dLQUESTComment: Reference [...] specimen obtained by clean catch procedure / Twoyzho4904/19/2025 9:53 AM EDT04/19/2025 9:53 AM EDT Narrative [facility] - 2025 11:17 AM EDT FASTING:YES FASTING: YES Resulting Agency Comment Performing Organization Information ?Site ID: [id number] ?Name: [employer] [facility] ?Address: [address] [place] [address], [address] [place] [id number] ?Director: Cezar Singh MD Authorizing ProviderResult TypeResult Jorge Luis Bowers MDLAB URINE ORDERABLESFinal ResultPerforming OrganizationAddressCity/State/ZIP CodePhone Number [facility] * POCT Glycated hemoglobin, total (04/17/2025 11:24 AM EDT)ComponentValueRef RangeTest MethodAnalysis TimePerformed AtPathologist SignatureHemoglobin A1C 7.8Specimen (Source)Anatomical Location / LateralityCollection Method / Volume Collection TimeReceived JggjYonjb00/03/2025 11:24 AM EDT Narrative Authorizing ProviderResult TypeResult Jorge Luis Bowers MDPOINT OF CARE TEST ENTER/EDIT ORDERABLESFinal Result from Last 3 Months or Most Recently Relevant to Health Maintenance Insurance Care Teams Team MemberRelationshipSpecialtyStart DateEnd Kofi Bowers MD [address] [facility] [address] [place] [address] PCP - GeneralInternal Medicine12/22/22
--- OUTSIDE RECORDS SUMMARY | 2025-08-05 14:39 | XMS_ITS | Encounter Summary ---
Author Organization [facility] Address [address] [facility] [place] [address] Care Team Providers Care Carpenter Helper Name Role Phone Kofi Bowers MD Primary Care Provider [phone] Encounter Details DateTypeDepartmentCare Team (Latest Contact Info)Ynmxciqckcm16/11/2025Telephone [facility] [place] [facility] [address] [place] [address] [place] [address] Kofi Bowers MD [address] [facility] 110 [place] [address] Social History Tobacco UseTypesPacks/DayYears UsedDateSmoking Tobacco: FormerCigarettesQuit: 08/15/1999Smokeless Tobacco: NeverAlcohol UseStandard Drinks/WeekCommentsNot Currently0 (1 standard drink = 0.6 oz pure alcohol)Caffeine: 1-2 cups per day; none soda/popPHQ-2AnswerDate RecordedPatient Health Questionnaire-2 Score1 06/17/2025CommentsUnknownSex and Gender InformationValueDate RecordedSex Assigned at BirthNot on fileLegal FleZlfmef53/15/2023 6:38 PM EDTGender Identity Not on fileSexual [...] Plan of Treatment DateTypeDepartmentCare Team (Latest Contact Info)Jihmbfeewwe51/30/2026 11:30 AM EDTOffice Visit [facility] [place] [facility] [address] [place] [address] [place] [address] Kofi Bowers MD [address] [place] [address] [place] [address] documented as of this encounter Visit Diagnoses Not on filedocumented in this encounter Additional Health Concerns AssessmentNoted TimePHQ-9 Depression Total Score: 10:00 AM EDT documented as of this encounter Care Teams Team MemberRelationshipSpecialtyStart DateEnd Date Kofi Bowers MD [address] [place] [address] [place] [address] PCP - GeneralInternal Medicine12/22/22documented as of this encounter
--- OUTSIDE RECORDS SUMMARY | 2025-08-05 14:39 | XMS_ITS | Encounter Summary ---
Author Organization [facility] Address [address] [place] [address] Care Team Providers Care Carbonating Stone Cleaner Name Role Phone Kofi Bowers MD Primary Care Provider [phone] Encounter Details DateTypeDepartmentCare Team (Latest Contact Info)Kadxkfinjyy84/18/2025Telephone [facility] [place] [facility] [address] [place] [address] [place] [address] Kofi Bowers MD [address] [facility] 110 [place] [address] Social History Tobacco UseTypesPacks/DayYears UsedDateSmoking Tobacco: FormerCigarettesQuit: 08/15/1999Smokeless Tobacco: NeverAlcohol UseStandard Drinks/WeekCommentsNot Currently0 (1 standard drink = 0.6 oz pure alcohol)Caffeine: 1-2 cups per day; none soda/popPHQ-2AnswerDate RecordedPatient Health Questionnaire-2 Score1 06/17/2025CommentsUnknownSex and Gender InformationValueDate RecordedSex Assigned at BirthNot on fileLegal RvuBbruig79/15/2023 6:38 PM EDTGender Identity Not on fileSexual [...] Plan of Treatment DateTypeDepartmentCare Team (Latest Contact Info)Mspzectgwmd10/30/2026 11:30 AM EDTOffice Visit [facility] [place] [facility] [address] [facility] [address] [place] [address] Kofi Bowers MD [address] [place] [address] [place] [address] documented as of this encounter Visit Diagnoses Not on filedocumented in this encounter Additional Health Concerns AssessmentNoted TimePHQ-9 Depression Total Score: 10:00 AM EDT documented as of this encounter Care Teams Team MemberRelationshipSpecialtyStart DateEnd Date Kofi Bowers MD [address] [facility] [address] [place] [address] PCP - GeneralInternal Medicine12/22/22documented as of this encounter
--- NOTE | 2025-08-05 14:41 | XR_ITS ---
The [address] [address] Patient Name: KONRAD GUZMAN MRN: [id number] date: 1945 Sex: F Assigned Patient Location: [facility] Current Patient Location: Accession/Order Number: [id number] Exam Date: 08/05/2025 14:46 Report Date: 08/06/2025 09:45 At the request of: JENNY FALLON MD Procedure: XR lumbar spine min 4V LUMBAR SPINE -4 views: CLINICAL HISTORY: Chronic low back pain with worsening since last week. Previous surgery. COMPARISON: CT 05/24/2024 AP, lateral and both oblique views of the lumbosacral junction were obtained. There is osteopenia. Patient is status post laminectomy and fusion with posterior rods and pedicle screws extending from L3 through S1. There are interbody fusion devices at L3-4 and the lumbosacral junction. The hardware appears intact and in appropriate position. No developing compression fractures or significant displacement are seen. The unfused disc spaces at the upper lumbar and lower thoracic spine are narrowed. There is endplate sclerosis at T12-L1 along with vacuum phenomenon. Endplate spurring is seen. The sacroiliac joints are maintained and there is sclerosis bilaterally. There are no paraspinal soft tissue abnormalities. There is atherosclerotic plaque involving the aorta and iliac arteries. Patient has a neurostimulator with battery pack on the right. XR/XR lumbar spine min 4V IMPRESSION: OSTEOPENIA, SCOLIOSIS, POSTOPERATIVE AND DEGENERATIVE CHANGES COMMENT DESCRIBED. Impression dictated by: Skye Ramírez M.D. 08/06/2025 9:45 AM Dictation [facility] Electronically authenticated by: [id number] Date: 08/06/2025 09:45
== END 2025-08-05 14:36 | disposition home or self-care (01) ==
PROVIDERS: PCP Internal Medicine; Visit Provider Anesthesiology
DX: M47.816 Spondylosis without myelopathy or radiculopathy, lumbar region (principal); M85.88 Other specified disorders of bone density and structure, other site; M51.369 Other intervertebral disc degeneration, lumbar region without mention of lumbar back pain or lower extremity pain
CPT/HCPCS: 72110

== ENCOUNTER 2025-08-12 08:09 | Day surgery (SDC) | payer MEDICARE, SELFPAY ==
--- OUTSIDE RECORDS SUMMARY | 2025-08-12 08:16 | XMS_ITS | Patient Health Record ---
Author Organization [facility] [place] Address [address] [place] [address] Care Team Providers Care Concrete Pump Operator Helper Name Role Phone None, Unknown or Primary Care Provider Unavailab le Reason For Referral No Information Medications Medication SIG (Take, Route, Frequency, Duration) Notes Start Date End Date Status Omeprazole 20 MG 1 capsule 30 minutes before mor nicole meal Orally Once a day ActiveLiothyronine Sodium 25 MCG1 tablet on an empty stomach Orally Once a day ActiveCalcium + D 500-1000-40 ON-SYH-PAAfe directed OrallyActiveAcarbose 100 MG as directed OrallyActiveTrulicity [...] meal Orally Once a dayActiveLoratadine Allergy ReliefActiveVitamin D3Nkdrfr Problems Problem Type SNOMED Code ICD Code Onset Dates Problem Status W/U Status Risk Notes Problem Polyneuropathy due t o type 2 diabetes mellitus ([id number]) Type 2 diabetes mellitus with diabetic polyneuropathy (E11.42) Activeconfirmed Plan Of Treatment No Information Insurance Providers Payer Name Payer Address Payer Phone Subscriber Number Group Number Insured Name Patient Relationship to Insured Coverage Start Date Coverage End Date [employer] MEDICARE [address] [address] [place], [place] [id number] Cece Mobley Self - patient is the insured Medical (General) History Surgical History Surgery Date(Month/Year) appendix removal 1961 gallbladder removal 1986 back surgery 2002 back surgery 2008 tonsils 1964
--- OUTSIDE RECORDS SUMMARY | 2025-08-12 08:16 | XMS_ITS | Encounter Summary ---
Author Organization [facility] Address [address] [place] [place] [address] Care Team Providers Care Veneer Gluer Name Role Phone Kofi Bowers MD Primary Care Provider [phone] Encounter Details DateTypeDepartmentCare Team (Latest Contact Info)Cubkajtqppf04/11/2025Telephone [facility] [facility] [address] [place] [address] [place] [address] Kofi Bowers MD [address] [facility] [address] [place] [address] Social History Tobacco UseTypesPacks/DayYears UsedDateSmoking Tobacco: FormerCigarettesQuit: 08/15/1999Smokeless Tobacco: NeverAlcohol UseStandard Drinks/WeekCommentsNot Currently0 (1 standard drink = 0.6 oz pure alcohol)Caffeine: 1-2 cups per day; none soda/popPHQ-2AnswerDate RecordedPatient Health Questionnaire-2 Score1 06/17/2025CommentsUnknownSex and Gender InformationValueDate RecordedSex Assigned at BirthNot on fileLegal UoxUjtxmq85/15/2023 6:38 PM EDTGender Identity Not on fileSexual [...] Plan of Treatment DateTypeDepartmentCare Team (Latest Contact Info)Ddbjkynlptp84/30/2026 11:30 AM EDTOffice Visit [facility] [place] [facility] [address] [place] [address] [place] [address] Kofi Bowers MD [address] [place] [place] [address] documented as of this encounter Visit Diagnoses Not on filedocumented in this encounter Additional Health Concerns AssessmentNoted TimePHQ-9 Depression Total Score: 10:00 AM EDT documented as of this encounter Care Teams Team MemberRelationshipSpecialtyStart DateEnd Date Kofi Bowers MD [address] [place] [address] PCP - GeneralInternal Medicine12/22/22documented as of this encounter
--- OUTSIDE RECORDS SUMMARY | 2025-08-12 08:16 | XMS_ITS | Clinical Summary ---
Author Organization [facility] Address [facility] [place] [address] Care Team Providers Care Director Oracle Name Role Phone Unavailable Primary Care Provider Unavailabl e Allergies Active AllergyReactionsCriticalityNoted UvajTjvyuayeYfrpatMmqeoojs88/12/2014 ZpgeqybhwEzbfmovw27/12/2014 Medications MedicationSigDispense QuantityRefillsLast FilledStart DateEnd DateStatus meloxicam [...] to affected area.Active Active Problems ProblemNoted DateDiagnosed FtyaHdoedfhyinxtjq66/12/1348Ttouzixa58/12/2014Obesity 01/24/2014 Social History Tobacco UseTypesPacks/DayYears UsedDateSmoking Tobacco: Never Assessed CommentsUnknownSex and Gender InformationValueDate RecordedSex Assigned at Not on fileLegal PmaDljjys69/02/2012 10:41 AM ESTGender IdentityNot on file Sexual OrientationNot on file Last Filed Vital Signs Vital SignReadingTime TakenCommentsBlood Knyjulvc662/6006 12:45 PM EDT Fgtvo1169 12:45 PM EDTTemperature--Respiratory Rate--Oxygen Saturation-- Inhaled Oxygen Concentration--Weight--Height--Body Mass Index-- Plan of Treatment Health MaintenanceDue DateLast DoneCommentsAnxiety Slghgylrw41/06/1963Depression Ntgpmxudk83/06/1963DTaP,Tdap,Td Vaccine (1 - Tdap)1964Diabetes Screening 1990Pneumococcal Vaccine: 50+ (1 of 1 - PCV)1995Shingrix Vaccine (1 of 2)1995Bone Density Rebbmmval55/06/2010RSV Vaccine (1 - 1-dose 75+ series)2020Advance Directive Wugaqjefvt40/01/2025ovid-19 Vaccine (1 - 2024-26 season)2025Influenza Vaccine (#1)2025 Insurance
--- OUTSIDE RECORDS SUMMARY | 2025-08-12 08:16 | XMS_ITS | Encounter Summary ---
Author Organization [facility] Address [address] [place] [facility] [place] [address] Care Team Providers Care Rough Planer Tender Name Role Phone Kofi Bowers MD Primary Care Provider [phone] Encounter Details DateTypeDepartmentCare Team (Latest Contact Info)Rstjoyqrqzb83/23/2025linisync Result Encounter [facility] External Department Unsolicited Provider, Generic External Data Social History Tobacco UseTypesPacks/DayYears UsedDateSmoking Tobacco: FormerCigarettesQuit: 08/15/1999Smokeless Tobacco: NeverAlcohol UseStandard Drinks/WeekCommentsNot Currently0 (1 standard drink = 0.6 oz pure alcohol)Caffeine: 1-2 cups per day; none soda/popPHQ-2AnswerDate RecordedPatient Health Questionnaire-2 Score1 06/17/2025CommentsUnknownSex and Gender InformationValueDate RecordedSex Assigned at BirthNot on fileLegal YxmMrgpbd82/15/2023 6:38 PM EDTGender Identity Not on fileSexual OrientationNot on filedocumented as of this encounter Plan of Treatment DateTypeDepartmentCare Team (Latest Contact Info)Rbjtvcknhyl89/30/2026 11:30 AM EDTOffice Visit [facility] [address] [facility] [address] [place] [address] Kofi Bowers MD [address] [place] [address] documented as of this encounter Procedures Procedure NamePriorityDate/TimeAssociated DiagnosisCommentsXR LUMBAR SPINE MIN 4V110/07/2024 9:45 AM EST documented in this encounter Results * XR LUMBAR SPINE MIN 4V (08/06/2025 9:45 AM EST)Anatomical RegionLaterality ModalityOtherSpecimen (Source)Anatomical Location / LateralityCollection Method / VolumeCollection TimeReceived Time08/06/2025 9:45 AM EST Narrative 08/06/2025 9:47 AM EST [facility] ?[address] ? [place] [address] ?XRay Report ? Signed ? Patient: KONRAD MOBLEY G ? MR#: [id number] ?? : 1945 ?Acct:[id number] ?? Age/Sex: 80 / F ?ADM Date: 08/05/25 ?? Loc: RAD ? Attending Dr: Esperanza Maya M.D. ? Ordering Physician: Esperanza Maya M.D. ?? Date of Service: 08/05/25 ?? Procedure(s): XR lumbar spine min 4V ?? Accession Number(s): [id number] ? cc: KOFI BOWERS ; Esperanza Maya M.D. ? [facility] ? [address] [facility] ? [place] [address] ? Patient Name: ?? KONRAD MOBLEY ? MRN: [facility]:[id number] ? date: 1945 ?Sex: F ?? Assigned Patient Location: RAD ?? Current Patient Location: ? Accession/Order Number: [id number] ?? Exam Date: 08/05/2025 ??14:46 ?Report Date: 08/06/2025 ??09:45 ? At the request of: ?? ESPERANZA ??GIEDRAITIS ??MD ? Procedure: ??XR lumbar spine min 4V ? LUMBAR SPINE -4 views: ? CLINICAL HISTORY: ??Chronic low back pain with worsening since last week. ? Previous surgery. ? COMPARISON: ??CT 05/24/2024 ? AP, lateral and both oblique views of the lumbosacral junction were obtained. ? There is osteopenia. ??Patient is status post laminectomy and fusion with ?? posterior rods and pedicle screws extending from L3 through S1. ??There are ?? interbody fusion devices at L3-4 and the lumbosacral junction. ??The hardware ?? appears intact and in appropriate position. ??No developing compression ?? fractures or significant displacement are seen. ??The unfused disc spaces at ?? the upper lumbar and lower thoracic spine are narrowed. ??There is endplate ?? sclerosis at T12-L1 along with vacuum phenomenon. ??Endplate spurring is seen. ? The sacroiliac joints are maintained and there is sclerosis bilaterally. ? There are no paraspinal soft tissue abnormalities. ??There is atherosclerotic ?? plaque involving the aorta and iliac arteries. ??Patient has a neurostimulator ?? with battery pack on the right. ? XR/XR lumbar spine min 4V ?? IMPRESSION: ? OSTEOPENIA, SCOLIOSIS, POSTOPERATIVE AND DEGENERATIVE CHANGES COMMENT ?? DESCRIBED. ? Impression dictated by: Skye Ramírez M.D. ??08/06/2025 9:45 AM ? Dictation Location: [place] [address] ? Electronically authenticated by: [id number] ??Y ?? Date: 08/06/2025 ??09:45 ? Dictated By: ?Skye Ramírez M.D. ? Signed By: ?08/06/2547 ? DD/ 0945 ? TD/TT: ? Asbestos Siding Installer: Procedure Note Radiology, Radiologist, MD - 08/06/2025 [place] [address] XRay Report Signed Patient: KONRAD MOBLEY GMR#: [id number] : 5Acct:[id number] Age/Sex: 80 / FADM Date: 08/05/25 Loc: RAD Attending Dr: Esperanza Maya M.D. Ordering Physician: Esperanza Maya M.D. Date of Service: 08/05/25 Procedure(s): XR lumbar spine min 4V Accession Number(s): [id number] cc: KOFI BOWERS ; Esperanza Maya M.D. The [address] [address] Patient Name: KONRAD MOBLEY MRN: [facility]:[id number] date: 1945 Sex: F Assigned Patient Location: RAD Current Patient Location: Accession/Order Number: [id number] Exam Date: 08/05/2025 14:46 Report Date: 08/06/2025 09:45 At the request of: ESPERANZA MAYA MD Procedure: XR lumbar spine min 4V LUMBAR SPINE -4 views: CLINICAL HISTORY: Chronic low back pain with worsening since last week. Previous surgery. COMPARISON: CT 05/24/2024 AP, lateral and both oblique views of the lumbosacral junction wereobtained. There is osteopenia. Patient is status post laminectomy and fusion with posterior rods and pedicle screws extending from L3 through S1. There are interbody fusion devices at L3-4 and the lumbosacral junction. Thehardware appears intact and in appropriate position. No developing compression fractures or significant displacement are seen. The unfused disc spacesat the upper lumbar and lower thoracic spine are narrowed. There is endplate sclerosis at T12-L1 along with vacuum phenomenon. Endplate spurring isseen. The sacroiliac joints are maintained and there is sclerosis bilaterally. There are no paraspinal soft tissue abnormalities. There isatherosclerotic plaque involving the aorta and iliac arteries. Patient has aneurostimulator with battery pack on the right. XR/XR lumbar spine min 4V IMPRESSION: OSTEOPENIA, SCOLIOSIS, POSTOPERATIVE AND DEGENERATIVE CHANGES COMMENT DESCRIBED. Impression dictated by: Skye Ramírez M.D. 08/06/2025 9:45 AM Dictation Location: [place] [address] Electronically authenticated by: [id number] Y Date: 509:45 Dictated By: Skye Ramírez M.D. Signed By:08/06/25 0947 DD/ TD/TT: Asbestos Siding Installer: Authorizing ProviderResult TypeResult StatusGeneric External Data Provider CLINISYNC IMAGINGFinal Result documented in this encounter Visit Diagnoses Not on filedocumented in this encounter Additional Health Concerns AssessmentNoted TimePHQ-9 Depression Total Score: 10:00 AM EDT documented as of this encounter Care Teams Team MemberRelationshipSpecialtyStart DateEnd Date Kofi Bowers MD [address] [place] [address] PCP - GeneralInternal Medicine12/22/22documented as of this encounter
--- OUTSIDE RECORDS SUMMARY | 2025-08-12 08:16 | XMS_ITS | Encounter Summary ---
Author Organization [facility] Address [address] [facility] [place] [address] Care Team Providers Care Senior Attorney Name Role Phone Kofi Bowers MD Primary Care Provider [phone] Encounter Details DateTypeDepartmentCare Team (Latest Contact Info)Jqvmkatholq63/22/2025bstract [facility] [place] [facility] [address] [facility] [address] [place] [address] Kofi Bowers MD [address] [facility] [address] [place] [id number] Social History Tobacco UseTypesPacks/DayYears UsedDateSmoking Tobacco: FormerCigarettesQuit: 08/15/1999Smokeless Tobacco: NeverAlcohol UseStandard Drinks/WeekCommentsNot Currently0 (1 standard drink = 0.6 oz pure alcohol)Caffeine: 1-2 cups per day; none soda/popPHQ-2AnswerDate RecordedPatient Health Questionnaire-2 Score1 06/17/2025CommentsUnknownSex and Gender InformationValueDate RecordedSex Assigned at BirthNot on fileLegal NooRjftrn71/15/2023 6:38 PM EDTGender Identity Not on fileSexual OrientationNot on filedocumented as of this encounter Plan of Treatment DateTypeDepartmentCare Team (Latest Contact Info)Orsnhfthlbo33/30/2026 11:30 AM EDTOffice Visit [facility] [place] [facility] [address] [facility] [address] [place] [address] Kofi Bowers MD [address] [facility] [address] [place], [place] [address] documented as of this encounter Visit Diagnoses Not on filedocumented in this encounter Additional Health Concerns AssessmentNoted TimePHQ-9 Depression Total Score: 10:00 AM EDT documented as of this encounter Care Teams Team MemberRelationshipSpecialtyStart DateEnd Date Kofi Bowers MD [address] [facility] [address] [place] [address] PCP - GeneralInternal Medicine12/22/22documented as of this encounter
--- OUTSIDE RECORDS SUMMARY | 2025-08-12 08:16 | XMS_ITS | Clinical Summary ---
Author Organization [facility] Address [id number] [address] [place] [address] Care Team Providers Care Burnishing Machine Operator Name Role Phone Kofi Bowers MD Primary Care Provider [phone] Allergies Active AllergyReactionsCriticalityNoted CtvrAhimjvqpVkdzde78/11/2019 Throat swells, couldn't breathe Apakgbrwtbjm02/11/2019 itchy Medications MedicationSigDispense QuantityRefillsLast FilledStart DateEnd DateStatus [...] standard drink = 0.6 oz pure alcohol)ChildcareAnswerDate DmwemlgxFpsdpxctrCfadrfl39/12/2019Employment AnswerDate UtzygkrdNxolfxrzosZuozlqe90/12/2019Hunger ScreeningAnswerDate RecordedWithin the past 12 months we worried whether our food would run out before we got money to buy more.Never True03/18/2024Within the past 12 months the food we bought just didn't last and we didn't have money to get more.Never True4Purpose - LifeAnswerDate RecordedPurpose and direction in life Xqioqwy36/11/2021CommentsNoSex and Gender InformationValueDate Recorded Sex Assigned at BirthNot on fileLegal YfpTghxtf54/06/2015 11:38 AM EDTGender IdentityNot on fileSexual OrientationNot on file Last Filed Vital Signs Vital SignReadingTime TakenCommentsBlood Athwrxul141/7308 11:04 AM EDT Ufhju3824 11:04 AM DQYWqdfkfabrbm82.6 ??C (97.9 ??F)03/18/2024 11:04 AM EDTRespiratory Emad4022 11:04 AM EDTOxygen Coqmzayfev167%03/18/2024 11:04 AM EDTInhaled Oxygen Concentration--Gcgyqb03.6 kg (182 lb)03/18/2024 11:04 AM JPWPyvhic569.4 cm (5')03/18/2024 11:04 AM EDTBody Mass Index35.5408 11:04 AM EDT Plan of Treatment Health MaintenanceDue DateLast DoneCommentsDepression Drmbnritq24/06/1957Tobacco Btsubkvbn67/06/1957Fall Risk Owfqqamfa99/06/2010DTaP,Tdap and Td Vaccines (1 - Tdap)RSV ( or age 60+ yrs) (1 - 1-dose 75+ series) 2020Zoster (Shingles) Vaccine (2 of 2)/3COVID-19 Vaccine (3 - 2024- season)502/, 09/10/2020Influenza Tcfkdok6704/15/2025 06/06/2023, 05/20/2021, 09/15/2020, Additional history exists Medical Devices Not on file Insurance Care Teams Team MemberRelationshipSpecialtyStart DateEnd Date Kofi Bowers MD [address] [facility] [address] [place] [address] PCP - GeneralInternal Medicine10/27/22
--- OUTSIDE RECORDS SUMMARY | 2025-08-12 08:16 | XMS_ITS | Clinical Summary ---
Author Organization [facility] Address [address] [place] [address] Care Team Providers Care Tape Machine Tailer Name Role Phone Kofi Bowers MD Primary Care Provider [phone] Allergies Active AllergyReactionsCriticalityNoted DateCommentsIodineShortness of breath High12/14/20221715XbhjnixnucygNfidq84/02/9726SyijchhnriGbzzeztnl81/02/2023Shellfish VoalsjkDjbrvpcv07/12/2014 Medications MedicationSigDispense QuantityRefillsLast FilledStart DateEnd DateStatus aspirin [...] same time.Active cholecalciferol (Vitamin D-3) 1.25 MG (43501 UT) tablet Vitamin D3 5000IUActive Calcium Citrate-Vitamin [...] capsule Take 50 mg by mouth at iyjzlin54/02/2025Active Glucose Blood (Blood Glucose Test) strip Indications:Type 2 diabetes mellitus with hyperglycemia, without long-term current use of insulin ([facility])1 each by In Vitro route Daily 100 strip 5Active Blood Glucose Monitoring Suppl (Blood Glucose Monitor System) w/Device kit Indications:Type 2 diabetes mellitus with hyperglycemia, without long-term current use of insulin ([facility])1 each Daily 1 kit 5Active Lancets 30G [facility] [place] Indications:Type 2 diabetes mellitus with hyperglycemia, without long-term current use of insulin ([facility])1 each Daily 100 each 5Active Alcohol Swabs (Alcohol Prep) 70 % pads Indications:Type 2 diabetes mellitus with hyperglycemia, without long-term current use of insulin ([facility])1 Pad Daily 100 each 5Active pen needle 32G x 4 mm misc Indications:Type 2 diabetes mellitus with hyperglycemia, with long-term current use of insulin ([facility])Inject 1 each under the skin Daily 100 each 5Active empagliflozin (Jardiance) 10 MG Indications:Diabetes mellitus type 2 with neurological manifestations (HCC)Take 1 tablet (10 mg) by mouth Daily 30 tablet [id number] liothyronine (Cytomel) 25 MCG tablet Indications:Hypothyroidism, unspecified type0.5 tablet on an empty stomach Orally two times daily. D.A.W. as Sigma or GreenRodo Medical Brand ONLY for90 days 200 tablet 5Active [...] myofascial strain of lumbar region, subsequent encounterTake 2 tablets (8 mg) by mouth every 6 (six) hours if needed for muscle spasms 180 tablet /[id number] tiZANidine (Zanaflex) 4 MG tablet Indications:Acute myofascial strain of lumbar region, subsequent encounterTake 1 tablet (4 mg) by mouth every 8 (eight) hours if needed for muscle spasms 30 tablet Discontinued(Reorder) Active Problems ProblemNoted DateDiagnosed DateMorbid (severe) obesity due to excess calories 08/28/2024Restless leg ktnnkkma94/05/9548Fffrihp69/14/2024Ectropion of lower hlqfhx5403/11/2023losed fracture of orbital floor (blow-out)3Diplopia 03/11/2023 Overview (03/11/2023): Removal Reason: Resolved. Fracture of orbit03/11/2023Fracture of radial neck03/11/2023ain in elbow 03/11/2023Venous hypertension of lower suznmxayr80/09/2023denomatous polyp of ascending colon12/14/2022enign essential /02/2023hronic fatigue 12/14/2022hronic pain qlihclsf68/02/2023ontinuous positive airway pressure xgdgvcyoj47/02/2023ecreased estrogen level12/14/2022iabetes mellitus type 2 with neurological dnkpbtivdrkuet62/02/2023Type 2 diabetes mellitus with kfjltzudjmcse61/02/2023iabetic retinopathy associated with controlled type 2 diabetes qzzrwzon79/02/2023ifficulty in walking, not elsewhere classified 12/14/2022ESS (euthyroid sick syndrome)12/14/2022Failed back utamwzzr81/02/2023 GERD (gastroesophageal reflux disease)12/14/2022Sleep initiation disorder 12/14/2022Mixed bngdstliixqndh79/02/2023Non-seasonal allergic aftbaolo16/02/2023 Cxhicimsgb72/02/2023eripheral vascular qgxyvdf6412/14/2022eripheral venous iueinrkwpclxv41/02/2023Trigger thumb, left thumb12/14/2022Vitreous floaters of both eyes12/14/20227583Wsxlmtqt26/25/2022cquired trigger scaywp6601/15/2021ody mass index (BMI) 35.0-35.9, adult04/21/2020OSA (obstructive sleep apnea)04/11/2019 Overview (03/11/2023): Last Assessment & Plan: Continue to wear cpap Benign neoplasm of colon06/27/2018History of colonic kjfzle1106/01/2018Family history of malignant neoplasm of gastrointestinal tract06/01/2018Lipoprotein deficiency gxhsuqxm59/17/2018Long term current use of ehdbbtq9701/28/2016 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/25/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-budpui2010/22/2015History of fall10/02/20157062Rbzwdcqv90/27/2015Diabetic polyneuropathy associated with type 2 diabetes vxqeovdm78/01/0947Lgxeiohl19/12/8986Kmnnnwlkkysvuv00/12/2014 Resolved Problems ProblemNoted DateDiagnosed DateResolved DateLow HDL (under 40)12/14/2022 12/14/2022 Encounters DateTypeDepartmentCare BqxkTxnuadxwrel64/23/2025linisync Result Encounter [facility] External Department Unsolicited Provider, Generic External Data 08/06/2025Telephone [facility] [place] [facility] [address] [place] [address] Kofi Bowers MD Med Pcvqmk4708/05/2025bstract [facility] [place] [facility] [address] [place] [address] Kofi Bowers MD 08/01/2025Telephone [facility] [place] [facility] [address] [place] [address] Kofi Bowers MD 07/29/2025Refill [facility] [place] [facility] [address] [place] [address] Kofi Bowers MD Acute myofascial strain of lumbar region, subsequent wzlgryhxp44/11/2025 Telephone [facility] [place] [facility] [address] [place] [address] Kofi Bowers MD 07/22/2025bstract [facility] [place] [facility] [address] [place] [address] Kofi Bowers MD 07/01/2025Refill [facility] [place] [facility] [address] [place] [address] Kofi Bowers MD Type 2 diabetes mellitus with hyperglycemia, with long-term current use of insulin (HCC); Failed back /03/2025 11:30 AM ESTOffice Visit [facility] [place] [facility] [address] [place] [address] Kofi Bowers MD Acute myofascial strain of lumbar region, subsequent encounter; Need for eltevortuae56/03/2025amboo flowsheet [facility] [place] [facility] [address] [place] [address] Kofi Bowers MD 06/17/20256752Qkjpje98/24/2025Telephone [facility] [facility] [address] [facility] [address] [place] [address] Kofi Bowers MD 06/06/2025 9:00 AM EDTOffice Visit [facility] [place] [facility] [address] [facility] [address] [place] [address] Kofi Bowers MD Acute myofascial strain of lumbar region, initial encounter (Primary Dx) 06/06/2025amboo flowsheet [facility] [place] [facility] [address] [facility] [address] [place] [address] Kofi Bowers MD 06/06/20256816Tojbxj60/07/2025bstract [facility] [place] [facility] [address] [facility] [address] [place] [address] Kofi Bowers MD 05/13/2025Telephone [facility] [place] [facility] [address] [facility] [address] [place] [address] Kofi Bowers MD from Last 3 Months Immunizations ImmunizationAdministration DatesNext DueABRYSVO - Respiratory syncytial virus (RSV), vaccine, bivalent, protein subunit RSV prefusion F, diluent reconstituted, 0.5 mL, PF06/20/2024Influenza, High Dose Seasonal, Preservative Free06/17/2025,06/20/2024,09/15/2020Influenza, High-dose Seasonal, Quadrivalent, Preservative Free06/06/2023Influenza, Recombinant, injectable, preservative free 05/15/2020Influenza, injectable, MDCK, preservative free, wrrhpbmahxse72/06/2021 Influenza, injectable, quadrivalent, preservative free06/15/2019,05/22/2018, 08/02/2015Pneumococcal Polysaccharide WJGV3378Td (adult), 5 Lf tetanus toxoid, preservative free, gdxoldrz78/17/2015Zoster, Hqumphjlaco69/29/2025, 12/07/2024 Family History Medical HistoryRelationNameCommentsCancerBrotherColon ; Didn't indicate which brother among the 3Heart diseaseBrotherPassed ; Didn't indicate which brother among the 3Kidney problemBrotherPassed ; Didn't indicate which brother among the 3CancerFatherDiabetesFatherHeart diseaseFatherHypertensionFatherCancerMother Colon CancerCancerOtherSpouse: Prostate that metastisized to bone ; Eryhtroid LeukemiaDiabetesSonTourette mrbreffqRqsQfvczyzjUqizSiemgkHvisysyrGdnbabxc0Vhudpt XurncokaExbdbyQeeesvobBaxifOvtqzsjmXsqbezs6KjvFkhyq Social History Tobacco UseTypesPacks/DayYears UsedDateSmoking Tobacco: FormerCigarettesQuit: 08/15/1999Smokeless Tobacco: Never Tobacco Cessation:Counseling Given: Yes Alcohol UseStandard Drinks/WeekCommentsNot Currently0 (1 standard drink = 0.6 oz pure alcohol)Caffeine: 1-2 cups per day; none soda/popPHQ-2AnswerDate Recorded Patient Health Questionnaire-2 Dhqnp409CommentsUnknownSex and Gender InformationValueDate RecordedSex Assigned at BirthNot on fileLegal Sex Vvwswt8410/27/2022 6:38 PM EDTGender IdentityNot on fileSexual OrientationNot on file Last Filed Vital Signs Vital SignReadingTime TakenCommentsBlood Vtpyrajf084/6006/17/2025 11:32 AM EST Drykx012106/17/2025 11:32 AM ZIEVjdjeofbudz43.4 ??C (97.5 ??F)02/08/2025 11:07 AM EDTRespiratory Mseh387808/17/2024 11:32 AM ESTOxygen Zugyauiwtl79%06/17/2025 11:32 AM ESTInhaled Oxygen Concentration--Scwhxn36 kg (194 lb)06/17/2025 11:32 AM EST Qgufin043.4 cm (5')06/17/2025 11:32 AM ESTBody Mass Index37.8906/17/2025 11:32 AM EST Plan of Treatment DateTypeDepartmentCare Team (Latest Contact Info)Bgwyrzaabsi72/30/2026 11:30 AM EDTOffice Visit [facility] [place] [facility] [address] [facility] [address] [place] [address] Kofi Bowers MD [address] [facility] [address] [place] [address] Health MaintenanceDue DateLast DoneCommentsPneumococcal Vaccine: 65+ Years (2 of 2 - PCV)Diabetes: Hemoglobin A1C509/10/2024, 03/07/2025, 01/14/2025, Additional history existsMedicare Annual Wellness (AWV) /10/2024, 04/09/2024, 01/03/2023, Additional history existsDiabetes: Urine Protein Uhmwdjfpe86/12/2024, 04/09/2024, 01/18/2024, Additional history existsDiabetes: Retinopathy Elegcyman77/, 05/03/2024, 04/28/2020, Additional history existsInfluenza ThoofkqWoirclhtc78/03/2025, 06/20/2024, 06/06/2023, Additional history exists Procedures Procedure NamePriorityDate/TimeAssociated DiagnosisCommentsXR LUMBAR SPINE MIN 4V110/07/2024 9:45 AM EST DIABETIC RETINOPATHY SCREENING - OU - BOTH HQBUXfyffvu50/22/2025 MICROALBUMIN / CREATININE URINE NCKKUSyevnpm15/05/2025 9:53 AM EDT Diabetes mellitus type 2 with neurological manifestations (HCC) POCT GLYCATED HEMOGLOBIN, IIJJTTuzvbze75/03/2025 11:24 AM EDT Diabetes mellitus type 2 with neurological manifestations (HCC) from Last 3 Months or Most Recently Relevant to Health Maintenance Results * XR LUMBAR SPINE MIN 4V (08/06/2025 9:45 AM EST)Anatomical RegionLaterality ModalityOtherSpecimen (Source)Anatomical Location / LateralityCollection Method / VolumeCollection TimeReceived Time08/06/2025 9:45 AM EST Narrative 08/06/2025 9:47 AM EST [facility] ?[address] ? [place] [address] ?XRay Report ? Signed ? Patient: KONRAD MOBLEY G ? MR#: [id number] ?? : 1945 ?Acct:[id number] ?? Age/Sex: 80 / F ?ADM Date: 12/22/25 ?? Loc: RAD ? Attending Dr: Esperanza Fallon M.D. ? Ordering Physician: Esperanza Fallon M.D. ?? Date of Service: 08/05/25 ?? Procedure(s): XR lumbar spine min 4V ?? Accession Number(s): [id number] ? cc: KOFI BOWERS ; Esperanza Fallon M.D. ? [facility] ? [address] ? [place] [address] ? Patient Name: ?? KONRAD MOBLEY ? MRN: [facility]:[id number] ? date: 1945 ?Sex: F ?? Assigned Patient Location: RAD ?? Current Patient Location: ? Accession/Order Number: [id number] ?? Exam Date: 08/05/2025 ??14:46 ?Report Date: 08/06/2025 ??09:45 ? At the request of: ?? ANDLINDA ??VASYL ??MD ? Procedure: ??XR lumbar spine min [...] M.D. ??08/06/2025 9:45 AM ? Dictation Location: RADIO-PC-30 ? Electronically authenticated by: [id number] ??Y ?? Date: 08/06/2025 ??09:45 ? Dictated By: ?Skye Ramírez M.D. ? Signed By: ?08/06/25946 ? DD/ 0945 ? TD/TT: ? Lead Person: Procedure Note Radiology, Radiologist, MD - 08/06/2025 [place] [address] XRay Report Signed Patient: KONRAD MOBLEY GMR#: [id number] : 5Acct:[id number] Age/Sex: 80 / FADM Date: 08/05/25 Loc: RAD Attending Dr: Esperanza Fallon M.D. Ordering Physician: Esperanza Fallon M.D. Date of Service: 08/05/25 Procedure(s): XR lumbar spine min 4V Accession Number(s): [id number] cc: KOFI BOWERS ; Esperanza Fallon M.D. The [place] [id number] Patient Name: KONRAD MOBLEY MRN: [id number] date: 1945 Sex: F Assigned Patient Location: [facility] Current Patient Location: Accession/Order Number: [id number] Exam Date: 08/05/2025 14:46 Report Date: 08/06/2025 09:45 At the request of: ESPERANZA FALLON MD Procedure: XR lumbar spine min 4V [...] Ramírez M.D. 08/06/2025 9:45 AM Dictation Location: [employer] Electronically authenticated by: [id number] Y Date: 509:45 Dictated By: Skye Ramírez M.D. Signed By:08/06/25 0947 DD/ 0945 TD/TT: Lead Person: Authorizing ProviderResult TypeResult StatusGeneric External Data Provider CLINISYNC IMAGINGFinal Result * Diabetic Retinopathy Screening - OU - Both Eyes (05/06/2025)ComponentValueRef RangeTest MethodAnalysis TimePerformed AtPathologist SignatureRESULTSndr Anatomical RegionLateralityModalityHeadOtherSpecimen (Source)Anatomical Location / LateralityCollection Method / VolumeCollection TimeReceived Time 05/06/2025 Narrative Authorizing ProviderResult TypeResult StatusKofi Bowers MDSAINTE [facility]EVIEV[facility] PHOTOGRAPHY Final Result * Microalbumin / creatinine urine ratio (04/19/2025 9:53 AM EDT)ComponentValue Ref RangeTest MethodAnalysis TimePerformed AtPathologist SignatureCREATININE, RANDOM YZBZE4230 - 275 mg/dLQUESTALBUMIN, URINE0.3See Note: mg/dLQUESTComment: Reference [...] specimen obtained by clean catch procedure / Azfvnbl7204/19/2025 9:53 AM EDT04/19/2025 9:53 AM EDT Narrative [facility] - 2025 11:17 AM EDT FASTING:YES FASTING: YES Resulting Agency Comment Performing Organization Information ?Site ID: [id number] ?Name: [facility] (by [facility]) [facility] ?Address: [address] [place] [address], [address] [place] [id number] ?Director: Cezar Singh MD Authorizing ProviderResult TypeResult StatusKofi Bowers MDLAB URINE ORDERABLESFinal ResultPerforming OrganizationAddressCity/State/ZIP CodePhone Number [facility] * POCT Glycated hemoglobin, total (04/17/2025 11:24 AM EDT)ComponentValueRef RangeTest MethodAnalysis TimePerformed AtPathologist SignatureHemoglobin A1C 7.8Specimen (Source)Anatomical Location / LateralityCollection Method / Volume Collection TimeReceived TxdiPxpwf24/03/2025 11:24 AM EDT Narrative Authorizing ProviderResult TypeResult Jorge Luis Bowers MDPOINT OF CARE TEST ENTER/EDIT ORDERABLESFinal Result from Last 3 Months or Most Recently Relevant to Health Maintenance Insurance Care Teams Team MemberRelationshipSpecialtyStart DateEnd Date Kofi Bowers MD [address] [facility] [address] [place] [address] PCP - GeneralInternal Medicine12/22/22
--- OUTSIDE RECORDS SUMMARY | 2025-08-12 08:16 | XMS_ITS | Encounter Summary ---
Author Organization [facility] Address [address] [place] [address] Care Team Providers Care Plug Wirer Name Role Phone Kofi Bowers MD Primary Care Provider [phone] Encounter Details DateTypeDepartmentCare Team (Latest Contact Info)Xsjwsdnqpkp82/18/2025Telephone [facility] [place] [facility] [address] [place] [address] Kofi Bowers MD [address] [facility] [address] [place] [address] Social History Tobacco UseTypesPacks/DayYears UsedDateSmoking Tobacco: FormerCigarettesQuit: 08/15/1999Smokeless Tobacco: NeverAlcohol UseStandard Drinks/WeekCommentsNot Currently0 (1 standard drink = 0.6 oz pure alcohol)Caffeine: 1-2 cups per day; none soda/popPHQ-2AnswerDate RecordedPatient Health Questionnaire-2 Score1 06/17/2025CommentsUnknownSex and Gender InformationValueDate RecordedSex Assigned at BirthNot on fileLegal ImyLxybco05/15/2023 6:38 PM EDTGender Identity Not on fileSexual [...] Plan of Treatment DateTypeDepartmentCare Team (Latest Contact Info)Kymwgwgezme02/30/2026 11:30 AM EDTOffice Visit [facility] [place] [facility] [address] [facility] [address] [place] [address] Kofi Bowers MD [address] [place] [address] documented as of this encounter Visit Diagnoses Not on filedocumented in this encounter Additional Health Concerns AssessmentNoted TimePHQ-9 Depression Total Score: 10:00 AM EDT documented as of this encounter Care Teams Team MemberRelationshipSpecialtyStart DateEnd Date Kofi Bowers MD [address] [facility] [address] [place] [address] PCP - GeneralInternal Medicine12/22/22documented as of this encounter
--- OUTSIDE RECORDS SUMMARY | 2025-08-12 08:16 | XMS_ITS | Clinical Summary ---
Author Organization [facility] Address [address] [address] Care Team Providers Care Industrial Chemist Name Role Phone Kofi Bowers MD Primary Care Provider [phone] Allergies Active AllergyReactionsCriticalityNoted DateCommentsIodineAnaphylaxisHigh 04/08/20224682Hzvkwnalzrwb73/25/2022regabalinDizziness,Lauvvlc8502/24/2021hellfish Containing BqckfmudEtvmxlmx13/12/2014 Medications MedicationSigDispense QuantityRefillsLast FilledStart DateEnd DateStatus acarbose [...] Problems ProblemNoted DateDiagnosed DateVenous hypertension of lower dlnpejdmi73/09/2023 Trigger thumb, left thumb12/14/20225416Robtnpretr55/02/2023Failed back syndrome 12/14/2022ecreased estrogen level12/14/2022denomatous polyp of ascending colon 12/14/2022OSA (obstructive sleep apnea)04/28/2022 Assessment & Plan (06/01/2022 2:23 PM EDT): Continue to wear cpap Assessment & Plan (04/28/2022 2:06 PM EDT): F/U with PCP for further management Closed fracture of orbital floor (blow-out)04/08/20223443Qcdxaqiw62/25/2022Fracture of orbit04/08/2022Fracture of radial neck04/08/2022ain in elbow04/08/2022 Hypertensive rhvguflr32/30/2021 Assessment & Plan (06/01/2022 2:21 PM EDT): [...] 0.85 normal K+ 4.8 normal Acquired trigger zjtncn7001/15/2021Non-seasonal allergic cepbgarm96/25/2021 Vitreous floaters of both eyes04/29/2020Diabetic retinopathy associated with controlled type 2 diabetes xzghoeez65/15/2020Continuous positive airway pressure tsmruidld45/18/2020Failed back htmsjqka87/04/2018Benign neoplasm of colon 06/27/2018History of colonic wsphfe8206/01/2018Family history of malignant neoplasm of gastrointestinal tract06/01/2018Lipoprotein deficiency disorder 05/01/2018Long term current use of nwuwlgh0701/28/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 suoifhf8911/25/2015Ex-kbiixr4210/22/2015History of fall10/02/2015Disability of dnnpjss4110/02/20158362Wtkrzmmt79/27/2015Mixed qxcexayxnxazyg16/27/2015GERD (gastroesophageal reflux disease)06/10/2015ESS (euthyroid sick syndrome) 06/10/2015Type 2 diabetes mellitus with sxarahcmmvxrq15/27/2015Chronic pain /27/2015Chronic oiifgio7306/10/2015Benign essential hypertension 06/10/20156054Peyeybgwbt75/27/2015Peripheral venous ltayljabhywwh43/01/2015Diabetic polyneuropathy associated with type 2 diabetes apveoefl42/01/2015Obesity 01/24/20143029Munaqsqr00/12/0680Wvsupmirvdrlzi70/12/2014 Immunizations ImmunizationAdministration DatesNext DueInfluenza, High Dose Seasonal, Preservative Free09/15/2020,05/15/2020Influenza, injectable, MDCK, preservative free, nvtfejuruxkw71/06/2021Influenza, injectable, quadrivalent, preservative free06/15/2019,05/22/2018Influenza, seasonal, hzlovfddqu01/14/2019Unspecified Sars-Cov-2 Afmoguprggr56/17/2021,09/10/2020 Family History Medical HistoryRelationNameCommentsCoronary artery diseaseBrotherCoronary artery [...] ValueDate RecordedSex Assigned at BirthNot on fileLegal CrkFazbgs00/29/2022 11:38 PM EDTGender IdentityNot on fileSexual OrientationNot on file Last Filed Vital Signs Vital SignReadingTime TakenCommentsBlood Yihvysng856/78001/03/2023 11:10 AM EDT Chour8338/22/2023 11:10 AM EDTTemperature--Respiratory Rate--Oxygen Saturation 98%01/03/2023 11:10 AM EDTInhaled Oxygen Concentration--Iwvwac57.9 kg (189 lb 6.4 oz)01/03/2023 11:10 AM OMCBvhzwg705.4 cm (5')01/03/2023 11:10 AM EDTBody Mass Index36.9901/03/2023 11:10 AM EDT Plan of Treatment Health MaintenanceDue DateLast DoneCommentsDiabetes: Hemoglobin A1C1945 Medicare Annual Wellness (AWV)1945Diabetes: Retinopathy Screening 1955Depression Kbttvaaeu99/06/1957Fall Risk Lbovcqnyt92/06/2010 Pneumococcal Vaccine: 50+ Years (2 of 2 - PCV)Diabetes: Urine Protein Nxomreglo87, 01/19/2018, 10/28/2016, Additional history existsZoster Vaccines (2 [...] Mobley TypeRelation to PatientDate of BirthPhone Billing AddressPersonal/SxrvlsJeqt1945 [address] [place] [address] Care Teams Team MemberRelationshipSpecialtyStart DateEnd Date Kofi Bowers MD [address] [place] [address] [facility]04/07/22
--- OUTSIDE RECORDS SUMMARY | 2025-08-12 08:16 | XMS_ITS | Encounter Summary ---
Author Organization [facility] Address [address] [facility] [place] [address] Care Team Providers Care Journal Clerk Name Role Phone Kofi Bowers MD Primary Care Provider Reason for Visit * ReasonOnset DateCommentsMed Doxtkw7007/29/2025 Encounter Details DateTypeDepartmentCare Team (Latest Contact Info)Joyiaudeqtt43/15/2025Refill [facility] [place] [facility] [address] [facility] [address] [place] [address] Kofi Bowers MD [address] [place] [address] [place], [place] [address] Acute myofascial strain of lumbar region, subsequent encounter Social History Tobacco UseTypesPacks/DayYears UsedDateSmoking Tobacco: FormerCigarettesQuit: 08/15/1999Smokeless Tobacco: NeverAlcohol UseStandard Drinks/WeekCommentsNot Currently0 (1 standard drink = 0.6 oz pure alcohol)Caffeine: 1-2 cups per day; none soda/popPHQ-2AnswerDate RecordedPatient Health Questionnaire-2 Score1 06/17/2025CommentsUnknownSex and Gender InformationValueDate RecordedSex Assigned at BirthNot on fileLegal IzkEulowg86/15/2023 6:38 PM EDTGender Identity Not on fileSexual OrientationNot on filedocumented as of this encounter Plan of Treatment DateTypeDepartmentCare Team (Latest Contact Info)Ohoxbeqpqzo65/30/2026 11:30 AM EDTOffice Visit [facility] [place] [facility] [address] [facility] [address] [place] [address] Kofi Bowers MD [address] [place] [address] documented as of this encounter Visit Diagnoses Diagnosis Acute myofascial strain of lumbar region, subsequent encounter documented in this encounter Additional Health Concerns AssessmentNoted TimePHQ-9 Depression Total Score: 308 10:00 AM EDT documented as of this encounter Care Teams Team MemberRelationshipSpecialtyStart DateEnd Date Kofi Bowers MD [address] [facility] [address] [place] [address] PCP - GeneralInternal Medicine12/22/22documented as of this encounter
--- OUTSIDE RECORDS SUMMARY | 2025-08-12 08:16 | XMS_ITS | Encounter Summary ---
Author Organization [facility] Address [address] [place] [address] Care Team Providers Care Tennis Professional Name Role Phone Kofi Bowers MD Primary Care Provider [phone] Reason for Visit * ReasonOnset DateCommentsMed Vqgmer8008/06/2025 Encounter Details DateTypeDepartmentCare Team (Latest Contact Info)Dyekeiishpd59/23/2025Telephone [facility] [place] [facility] [address] [place] [phone] Kofi Bowers MD [address] [place] [id number] Med Refill Social History Tobacco UseTypesPacks/DayYears UsedDateSmoking Tobacco: FormerCigarettesQuit: 08/15/1999Smokeless Tobacco: NeverAlcohol UseStandard Drinks/WeekCommentsNot Currently0 (1 standard drink = 0.6 oz pure alcohol)Caffeine: 1-2 cups per day; none soda/popPHQ-2AnswerDate RecordedPatient Health Questionnaire-2 Score1 06/17/2025CommentsUnknownSex and Gender InformationValueDate RecordedSex Assigned at BirthNot on fileLegal PtxVqbbhw28/15/2023 6:38 PM EDTGender Identity Not on fileSexual OrientationNot on filedocumented as of this encounter Miscellaneous Notes * Telephone Encounter - MAREK CORONEL - 08/06/2025 9:22 AM EST New rx sent * Telephone Encounter - Chelle Guallpa - 08/06/2025 9:10 AM EST tiZANidine (Zanaflex) 4 MG tablet patient needs a refill on this sent to [facility] [place]. She was recently in the er and has severe back pain. She said she called us and spoke with a nurse that said sheis okay to take 2 every 8 hours. She is now running out sooner because the scripts says only 1. documented in this encounter Plan of Treatment DateTypeDepartmentCare Team (Latest Contact Info)Wuxylqxjujb93/30/2026 11:30 AM EDTOffice Visit [facility] [place] [facility] [address] [place] [address] Kofi Bowers MD [address] [place] [address] documented as of this encounter Visit Diagnoses Diagnosis Acute myofascial strain of lumbar region, subsequent encounter documented in this encounter Additional Health Concerns AssessmentNoted TimePHQ-9 Depression Total Score: 10:00 AM EDT documented as of this encounter Care Teams Team MemberRelationshipSpecialtyStart DateEnd Date Kofi Bowers MD [address] [place] [id number] PCP - GeneralInternal Medicine12/22/22documented as of this encounter
--- OUTSIDE RECORDS SUMMARY | 2025-08-12 08:18 | XMS_ITS | CCD ---
Author Organization [facility] Care Team Providers Care Surgery Aide Name Role Phone Olamide Ching Unavailable MD [...] DR SERENITY [employer] Unavailable BOWERS, DR GLVOER Primary Care Unavailable GARCIA ., DR SERENITY [...] TypeDate of OnsetReaction(s) Facility (3 sources)GemfibrozilDrug Allergymuscle [facility] [employer] Other (20 sources)Iodine; Translations: [IODINE]Drug Yenxggq58-93-5435xwarnfocazm, Shortness [facility]Children[facility] (5 sources)levoFLOXacin; Translations: [Levaquin]Drug Cerpegz87-35-0085 [facility] (20 sources)levoFLOXacin; Translations: [LEVOFLOXACIN]Drug Wfgvudc39-92-0049 [facility] (1 source)Iodine and Iodide Containing ProducAllergy to pvspysjho76-76-2930 Unknown ReactionMemorial [facility] (2 sources)hydrALAZINEDrug Xpjhhyn63-60-6539BsiSalem City Hospital Rep[facility] (1 source)IodineDrug Lldizex57-49-0224BthSalem City Hospital Repository (20 sources)pregabalin; Translations: [PREGABALIN]Drug Zvnenbt45-97-0888 DizzinessUnMemorial Health System [facility] Repository (1 source)SHELLFISH CONTAINING PRODUCTS; Translations: [SHELLFISH CONTAINING PRODUCTS]Propensity to adverse reactions to drug (disorder)93-60-4999DlpbemixmfChildren's Hospital of [facility] Repository (3 sources)Iodinated Contrast Media; Translations: [Iodinated Contrast Media] Allergy to ciunzxxzx05-04-4049Znuahlm ReactionMemorial Health [facility] (2 sources)GemfibrozilDrug Rjaqisp49-92-8026sudfez atrophyMemorial Health System [facility] Rep[facility] (1 source)IodineDrug Afbvmnc51-79-9720FnchtpayjMemorial Health System [facility] Repository (20 sources)ShellfishAllergy to -67-4106OrngocgfPMXE Healthcare Work Phone: Medications Current Medications MedicationDrug Class(es)DatesSig (Normalized)Sig (Original)acarbose 100 mg oral tablet (20 sources)alpha-Glucosidase InhibitorStart: 28-62-9369gpdl 1 tablet by mouth in the morningacarbose (Precose) 100 MG tablet Indications: Diabetes mellitus type 2 with neurological manifestations (HCC) TAKE 1 TABLET BY MOUTH IN THE MORNING AND 1 TABLET BEFORE BEDTIME 60 tablet 11 5ActiveStart: 68-76-0639ykim 1 tablet by mouth in the morningacarbose (Precose) 100 MG tablet Indications: 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 60 tablet 10 01/18/2024 ActiveStart: 26-23-7049jjuc 1 tablet by mouth in the morningacarbose (Precose) 100 MG tablet Indications: 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 200 tablet 3 02/02/2023 ActiveStart: 93-17-6385nhtw 1 tablet by mouth twice dailyAcarbose 100 [...] 25 mg oral tablet (2 sources)Tricyclic AntidepressantStart: 10-97-1617nfwl 1 tablet by mouth every twenty-four hoursAmitriptyline HCl 25 MG 1 tablet at bedtime Orally Once a day for 30 day(s) Jun, ActiveamLODIPine 10 mg oral tablet (20 sources)Dihydropyridine Calcium Channel BlockerStart: 37-00-5902nmkb 1 tablet by mouth in the morningamLODIPine (Norvasc) 10 MG tablet Indications: Benign essential hypertension TAKE 1 TABLET BY MOUTHIN THE MORNING 100 tablet 3 07/23/2024 ActiveStart: 87-45-9160ujpj 1 tablet by mouth in the morning [...] sources)Platelet Aggregation Inhibitor, Nonsteroidal Anti-inflammatory Drug Start: 99-01-6473xddqfjj 81 MG EC tablet 1 (one) time each day at the same time. 2018 ActiveBaby Aspirin Activebaclofen 10 mg oral tablet (20 sources)gamma-Aminobutyric Acid-ergic AgonistStart: 02-42-9225jxfg 0.5-1 tablets by mouth three times daily as neededbaclofen (Lioresal) 10 MG tablet TAKE 1/2 (ONE-HALF) TO 1 (ONE) TABLET BY MOUTH THREE TIMES DAILY NEEDED 12/25/2024 Activebiotin 5 mg sublingual tablet (3 sources)Start: 51-99-9604qzfc 1 capsule under the tongue once dailyBiotin 5,000 mcg Tablet, Sublingual Active 1 CAP SUBLINGUAL Daily June 12, 2018 11:00pmBlood Glucose Monitoring Suppl (Blood Glucose Monitor System) w/Device kit (14 sources)Start: 63-07-6542Djjcl Glucose Monitoring Suppl (Blood Glucose Monitor System) w/Device kit Indications: Type 2 diabetes mellitus with hyperglycemia, without long-term current use of insulin ([facility]) 1 each Daily 1 kit 03/12/2025 Activecalcium [...] (5 sources)alpha-Adrenergic Theodora, beta-Adrenergic BlockerStart: 02-20-2024 End: 69-91-4760jvbu 1 tablet by mouth at mealtimecarvedilol (Coreg) 25 MG tablet Indications: Benign essential hypertension (CMS/HCC) TAKE 1 TABLET BY MOUTH IN THE MORNING AND IN THE EVENING WITH MEALS 60 tablet 10 02/20/2024 04/09/2024 Discontinued (Other)Start: 87-05-9868jdzg 1 tablet by mouth in the morning carvedilol (Coreg) 25 MG tablet Indications: Benign essential hypertension (CMS/HCC) Take 1 tablet (25 mg) by mouth in the morning and 1 tablet (25 mg) in the evening. Take with meals. 180 tablet 3 02/22/2023 Activecetirizine hydrochloride 10 mg oral tablet (13 sources)Histamine-1 Receptor Antagonist End: 91-75-3508vaxiqzcaei (ZyrTEC) 10 MG tablet 1 (one) time each day at the same time. 08/28/2024 Discontinued (Other)cholecalciferol 1.25 mg oral tablet (20 sources)Vitamin Dcholecalciferol (Vitamin D-3) 1.25 MG (53136 UT) tablet Vitamin D3 5000IU Activecholecalciferol (Vitamin D-3) 1.25 MG (27810 UT) tablet Vitamin D3 5000IU 0 ActivecloNIDine hydrochloride 0.1 mg oral tablet (3 sources)Central alpha-2 Adrenergic AgonistStart: 80-69-5032dxdc 1 tablet by mouth twice dailyClonidine Hcl 0.1 mg tablet Active 1 TAB PO Twice daily June 12, 2018 11:00pmdapagliflozin 5 mg oral tablet (2 sources)Sodium-Glucose Cotransporter 2 InhibitorStart: 04-19-2025 End: 75-73-2330flzwxtkdsrcnz (Farxiga) 5 MG Indications: Diabetes mellitus type 2 with neurological manifestations(HCC) , Type 2 diabetes mellitus with hyperglycemia, unspecified whether care home insulin use (HCC) Take 1 tablet (5 mg) by mouth Daily 100 tablet 3 04/23/2025 05/28/2026 Active0.5 ml dulaglutide 3 mg/ml auto-injector (3 sources)GLP-1 Receptor AgonistTrulicity 1.5 MG/0.5ML as directed Subcutaneous As Directed ActiveDULoxetine 60 mg delayed release oral capsule (6 sources)Serotonin and Norepinephrine Reuptake InhibitorStart: 06-13-2018 Duloxetine 60 mg capsule,delayed release(DR/EC) Active June 12, 2018 11:00pmStart: 47-94-1371Cmlsvqlucw Active June 12, 2018 11:00pm empagliflozin 10 mg oral tablet (8 sources)Sodium-Glucose Cotransporter 2 InhibitorStart: 04-26-2025 End: 90-79-2855eedh 1 tablet by mouth once dailyempagliflozin (Jardiance) 10 MG Indications: Diabetes mellitus type 2 with neurological manifestations (HCC) Take 1 tablet (10 mg) by mouth Daily 30 tablet 11 04/26/2025 04/26/2026 Active furosemide 40 mg oral tablet (20 sources)Loop DiureticStart: 88-25-9096umbs 1 tablet by mouth in the morning [...] mg oral tablet (5 sources)Arteriolar Vasodilator End: 84-74-5260lrzjHEUMOFW (Apresoline) 50 MG tablet every 12 (twelve) hours. 04/09/2024 Discontinued (Other)hydroCHLOROthiazide 25 mg / losartan potassium 100 mg oral tablet (20 sources)Thiazide Diuretic, Angiotensin 2 Receptor BlockerStart: 02-14-2025 take 1 tablet by mouth once dailylosartan-hydroCHLOROthiazide (Hyzaar) 100-25 MG tablet Indications: Hypertension, unspecified type Take 1 tablet by mouth Daily 100 tablet 2 02/14/2025 ActiveStart: 49-43-9851zmvf 1 tablet by mouth once daily losartan-hydroCHLOROthiazide (Hyzaar) 100-25 MG tablet Indications: Hypertension, unspecified type Take 1 tablet by mouth Daily 100 tablet 2 03/05/2024 ActiveStart: 91-64-9413xffq 1 tablet by mouth once dailylosartan- hydroCHLOROthiazide (Hyzaar) 100-25 MG tablet Indications: Hypertension, unspecified type (CMS/HCC) Take 1 tablet by mouth 1 (one) time each day at the same time. 100 tablet 2 04/26/2023 Active3 ml insulin glargine 100 unt/ml pen injector (10 sources)Insulin AnalogStart: 59-44-0185Jxpjef SoloStar 100 UNIT/ML pen Indications: Type 2 diabetes mellitus with hyperglycemia, with long-term current use of insulin ([facility]) INJECT 60 UNITS SUBCUTANEOUSLY (UNDER THE SKIN) IN THE MORNING 15mL 5 04/18/2025 Activeisopropyl alcohol 0.7 ml/ml medicated pad (14 sources)Start: 13-89-9310Gguhash Swabs (Alcohol Prep) 70 % pads Indications: Type 2 diabetes mellitus with hyperglycemia, without long-term current use of insulin ([facility]) 1 Pad Daily 100 each 3 03/12/2025 Activeliothyronine sodium 0.025 mg oral tablet (20 sources)l-TriiodothyronineStart: 04-26-2023 End: 49-57-2107vqxt 0.5 tablet by mouth twice dailyliothyronine (Cytomel) 25 MCG tablet Indications: Hypothyroidism, unspecified type 0.5 tablet on anempty stomach Orally two times daily. D.A.W. as Sigma or SiteMinder Brand ONLY for 90 days 200 tablet 3 05/01/2025 ActiveStart: 27-21-8998nypm 1 tablet by mouth once dailyLiothyronine 25 mcg tablet Active 0.5 TAB PO Daily June 12, 2018 11:00pmLiothyronine Sodium 25 MCG as directed Orally bid Activeloratadine 10 mg oral tablet (20 sources)Start: 68-13-3853hnjd 1 tablet by mouth once daily in the morning Allergy Relief 10 MG tablet Indications: Allergy, initial encounter TAKE 1 TABLET BY MOUTH EVERY MORNING 30 tablet 11 03/20/2024 ActiveStart: 03-11-2023 End: 41-91-7645ocvo 1 tablet by mouth in the morningloratadine (Claritin) 10 MG tablet Indications: Allergy, initial encounter Take 1 tablet (10 mg) bymouth in the morning. 30 tablet 11 03/11/2023 03/10/2024 ActiveStart: 77-45-1480hbvj 1 tablet by mouth once dailyLoratadine 10 mg Capsule Active 1 TAB PO Daily June 12, 2018 11:00pmlosartan potassium 100 mg oral tablet (6 sources)Angiotensin 2 Receptor BlockerStart: 09-15-3209ejfc 1 tablet by mouth once dailyLosartan 100 mg tablet Active 1 TAB PO Daily June 12, 2018 11:00pmlovastatin 20 mg oral tablet (20 sources)HMG-CoA Reductase InhibitorStart: 18-75-9534ijqg 1 tablet by mouth once dailylovastatin (Mevacor) 20 MG tablet Indications: 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HHS-HCC) TAKE 1 TABLET BY MOUTH ONCE DAILY 100 tablet 3 08/16/2024 ActiveStart: 83-72-4221idup 1 tablet by mouth once dailylovastatin (Mevacor) 20 MG tablet Indications: Congenital renal artery anomaly TAKE 1 TABLET BY MOUTH ONCE DAILY 30 tablet 10 09/21/2023 Activemelatonin 5 mg oral capsule (6 sources)Start: 69-27-3073Zqqhhkkpi 5 mg Capsule Active June 12, 2018 11:00pmStart: 57-13-3447Mxwehzurz Active June 12, 2018 11:00pmMelatonin 5 MG Orally qhs ActivemetFORMIN hydrochloride 1000 mg oral tablet (20 sources)BiguanideStart: 72-84-9927ghbh 1 tablet by mouth in the morning metFORMIN (Glucophage) 1000 MG tablet Indications: Diabetes mellitus type 2 with neurological manifestations (HCC) TAKE 1 TABLET BY MOUTH IN THE MORNING AND 1 TABLET IN THE EVENING. TAKE WITH MEALS 60 tablet 11 12/13/2024 ActiveStart: 08-02-8299nxgu 1 tablet by mouth in the morningmetFORMIN (Glucophage) 1000 MG tablet Indications: 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 TAKE WITH MEALS. 60 tablet 10 01/18/2024 Active methylPREDNISolone (4 sources)CorticosteroidStart: 06-06-2025 End: 07-55-1578qpxggnCNHIKOBswiqg (Medrol Dospak) 4 MG tablets Indications: Acute myofascial strain of lumbar region, initial encounter Follow schedule on package instructions 21 tablet 06/06/2025 06/17/2025 Discontinued (Therapy completed)Start: 06-06-2025 End: 73-99-3078vycftdMVSDJYHlorxx (Medrol Dospak) 4 MG tablets Indications: Acute myofascial strain of lumbar region, initial encounter Follow schedule on package instructions 21 tablet 06/06/2025 06/13/2025 Fuwtks58 hr metoprolol succinate 50 mg extended release oral tablet (9 sources)beta-Adrenergic BlockerStart: 59-62-3328gdoi 1 tablet by mouth twice dailyMetoprolol Succinate 50 mg tablet extended release 24 hr Active 1 TAB PO Twice daily June 12, 2018 11:00pmtake 2 tablets by mouth every twenty-four hoursToprol XL 50 MG 2 tablet Orally Once a day ActiveMetoprolol Succinate ActiveMultivitamin preparation (3 sources)Multivitamin Activenaproxen 500 mg oral tablet (7 sources)Nonsteroidal Anti-inflammatory DrugStart: 04-09-2024 End: 03-60-4390kusr 1 tablet by mouth in the morningnaproxen (Naprosyn) 500 MG tablet Indications: Iliopsoas bursitis of right hip Take 1 tablet (500 mg) by mouth in the morning and 1 tablet (500 mg) in the evening. Take with meals. Do all this for 14days. 28 tablet 04/09/2024 04/23/2024 Active End: 26-06-7542yvqsrpew (Naprosyn) 500 MG tablet every 12 (twelve) hours. 04/09/2024 Discontinued (Other)omeprazole 20 mg delayed release oral capsule (20 sources)Proton Pump InhibitorStart: 43-69-8702ubnp 1 capsule by mouth in the morningomeprazole (PriLOSEC) [address] capsule Indications: Gastroesophageal reflux disease without esophagitis TAKE 1 CAPSULE BY MOUTH IN THE MORNING 30 capsule 11 12/13/2024 ActiveStart: 31-83-3858olsy 1 capsule by mouth in the morningomeprazole (PriLOSEC) [address] capsule Indications: Gastroesophageal reflux disease without esophagitis TAKE 1 CAPSULE (20 MG) BY MOUTH IN THE MORNING. 30 capsule 10 01/18/2024 Activeondansetron 8 mg oral tablet (5 sources)Serotonin-3 Receptor AntagonistStart: 02-08-2025 End: 01-68-0984rxqd 1 tablet by mouth every eight hours as needed for nausea and vomiting and nausea and nauseaondansetron (Zofran) 8 MG tablet Indications: Nausea Take 1 tablet (8 mg) by mouth every 8 (eight) hours if needed for nausea or vomiting for up to 7 days 20 tablet 02/08/2025 02/15/2025 Active microencapsulated potassium chloride 20 meq extended release oral tablet (20 sources)Start: 51-35-4964Rryhipvya Chloride 20 mEq tablet,ER particles/crystals Active 1 PACKET PO Daily June 12, 2018 11:00pmStart: 50-55-8602Ycocjetjl Chloride Active 1 PACKET PO Daily June 12, 2018 11:00pm pramipexole dihydrochloride 0.75 mg oral tablet (3 sources)Nonergot Dopamine AgonistStart: 29-87-9337wapo 1 tablet by mouth in the morningpramipexole (Mirapex) 0.75 MG tablet Indications: Chronic pain syndrome Take 1 tablet (0.75 mg) by mouth in the morning. 30 tablet 2 07/20/2023 Active End: 65-59-2811xtieshaczcc (Mirapex) 0.5 MG tablet 1 (one) time each day at the same time 01/14/2025 Discontinued (Therapy completed)pregabalin 100 mg oral capsule (6 sources)Start: 95-92-3547dljl 1 tablet by mouth twice dailyPregabalin 100 mg capsule Active 1 TAB PO Twice daily June 12, 2018 11:00pmQUEtiapine 50 mg oral tablet (20 sources)Atypical AntipsychoticStart: 86-84-3432cvnp 1 tablet by mouth once dailyQUEtiapine (SEROquel) 50 MG tablet Indications: Insomnia, unspecified type TAKE 1 TABLET BY MOUTH ONCE DAILY 30 tablet 10 09/17/2024 ActiveStart: 94-50-7578korl 1 tablet by mouth once dailyQUEtiapine (SEROquel) 50 MG tablet Indications: Insomnia, unspecified type TAKE 1 TABLET BY MOUTH ONCE DAILY 30 tablet 10 10/20/2023 ActiverOPINIRole 2 mg oral tablet (12 sources)Nonergot Dopamine AgonistStart: 01-18-2024 End: 23-71-0702xzkr 0.5 tablet by mouth at bedtimerOPINIRole (Requip) 2 MG tablet Indications: Restless Leg Syndrome Take 0.5 tablets (1 mg) by mouthat bedtime 30 tablet 2 01/18/2024 08/28/2024 Discontinued (Other)tiZANidine 4 mg oral tablet (9 sources)Central alpha-2 Adrenergic AgonistStart: 06-06-2025 End: 79-61-0080htau 1 tablet by mouth every eight hours for muscle spasms tiZANidine (Zanaflex) 4 MG tablet Indications: Acute myofascial strain of lumbar region, subsequentencounter Take 1 tablet (4 mg) by mouth every 8 (eight) hours if needed for muscle spasms 30 lmmdaw3206/17/2025 06/27/2025 ActivetraMADol hydrochloride 50 mg oral tablet (20 sources)Opioid AgonistStart: 01-04-2025 End: 05-07-2813ezoz 1 tablet by mouth every six hours for paintraMADol (Ultram) 50 MG tablet Indications: Failed back syndrome Take 1 tablet (50 mg) by mouth every 6 (six) hours if needed for severe pain 120 tablet 1 05/01/2025 06/30/2025 ActiveStart: 03-05-2024 End: 06-05-1045ylie 1 tablet by mouth every six hours for paintraMADol (Ultram) 50 MG tablet Indications: Failed back syndrome Take 1 tablet (50 mg) by mouth every 6 (six) hours if needed for severe pain 120 tablet 12/03/2024 01/02/2025 ActiveStart: 69-19-6317ktrc 1 tablet by mouth every six hours for paintraMADol (Ultram) 50 MG tablet Indications: Failed back syndrome Take 1 tablet (50 mg) by mouth every 6 (six) hours if needed for severe pain 120 tablet 0 09/29/2023 ActiveStart: 06-13-2018 End: 93-79-6233ikbc 1 tablet by mouth every six hours [...] MG/0.5ML solution auto-injector (13 sources)Start: 08-23-2024 End: 98-51-5911Bczktmzju 4.5 MG/0.5ML solution auto-injector Indications: Diabetes mellitus type 2 with neurological manifestations (HCC) INJECT CONTENTS OF 1 SYRINGE SUBCUTANEOUSLY ONCE WEEKLY 2 mL 08/23/2024 02/08/2025 DiscontinuedStart: 45-00-1159Xdvrvtrjr 4.5 MG/0.5ML solution auto-injector Indications: Diabetes mellitus type 2 with neurological manifestations (HCC) INJECT CONTENTS OF 1 SYRINGE SUBCUTANEOUSLY ONCE WEEKLY 2 mL 08/23/2024 Ac tiveStart: 95-81-5205Syyvfzcfi 4.5 MG/0.5ML solution auto-injector Indications: 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) INJECT CONTENTS OF 1 SYRINGE SUBCUTANEOUSLY ONCE WEEKLY 2 mL 08/23/2024 Active Trulicity 4.5 MG/0.5ML solution pen-injector (10 sources)Start: 40-67-3291Vwnnstlff 4.5 MG/0.5ML solution pen-injector Indications: Diabetes mellitus [...] tablet (13 sources)gamma-Aminobutyric Acid-ergic AgonistStart: 11-18-2023 End: 96-48-0818cwtlatoq CR (Ambien CR) 6.25 MG ER tablet Indications: Primary insomnia Take 1 tablet (6.25 mg) by mouth as needed at bedtime for sleep Do not crush, chew, or split. 30 tablet 2 11/18/2023 08/28/2024Discontinued (Other) Start: 24-43-7066iucgwaqw CR (Ambien CR) 6.25 MG ER tablet Indications: Primary insomnia Take 1 tablet (6.25 mg) by mouth as needed at bedtime for sleep Do not crush, chew, or split. 30 tablet 2 08/04/2023 Activezonisamide 50 mg oral capsule (14 sources)Anti-epileptic AgentStart: 89-48-6894ytio 1 capsule by mouth at bedtimezonisamide (Zonegran) 50 MG capsule Take 50 mg by mouth at bedtime 02/13/2025 Active Completed/Discontinued Medications MedicationDrug Class(es)DatesSig (Normalized)Sig (Original)cefTRIAXone (4 sources)Cephalosporin AntibacterialStart: 56-70-7769Nxfhqyhk 500 mg Feb, 1000 mgStart: 70-87-0473Mdoneefa 500 mg Jul, 1 grmeszopiclone 3 mg oral tablet (2 sources) End: 84-01-6007ikopsotvgnu (Lunesta) 3 MG tablet 1 (one) time each day at the same time 01/14/2025 Discontinued (Other)3 ml insulin detemir 100 unt/ml pen injector (20 sources)Insulin AnalogStart: 04-17-2025 End: 93-34-8912efxjyvv detemir (Levemir FlexTouch) 100 UNIT/ML pen Indications: Diabetes mellitus type 2 with neurological manifestations (HCC) Inject 60 Units under the skin in the morning. 3 mL 11 04/17/2025 04/17/2025 Discontinued (Availability)Start: 93-74-6429Fneadcd Detemir U-100 100 unit/mL (3 mL) insulin pen Active 0 .ROUTE .COMPLEX June 12, 2018 11:00pm as directed2 ml orphenadrine citrate 30 mg/ml injection (20 sources)Muscle RelaxantStart: 01-14-2025 End: 38-31-2045btqinfljwnwu (Norflex) injection 60 mgStart: 01-14-2025 End: 32-10-6694pdjsmt 60 mg by intramuscular injection once60 mg, Intramuscular, Once, On Tue01/14/25 at 1330, For 1 doseStart: 10-27-2023 End: 11-31-9979rjrc 1 tablet by mouth twice daily as [...] sources)Patient encounter status; Translations: [Other specified counseling] 04-02-1777ApxrwwsuTizkref and circulatory congenital anomalies (20 sources)Congenital anomaly of renal blood vessel; 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]Onset: hronic Diabetes mellitus with complications (20 sources)Disorder of nervous system due to type 2 diabetes mellitus; Translations: [Type 2 diabetes mellituswith other diabetic neurological complication]Onset: 308323-86-2162RodylioPrjhsjom mellitus without complication (20 sources)Type 2 diabetes mellitus without complications; Translations: [Diabetes mellitus]Onset: 084673-42-7520FehctcaGzdvggjlr of lipid metabolism (20 sources)Hyperlipidemia, unspecified; Translations: [Mixed hyperlipidemia] Onset: 785727-26-0526VnvajuoJboeykjjck disorders (20 sources)Gastro-esophageal reflux disease without esophagitis; Translations: [Gastroesophageal reflux disease]Onset: 210209-91-1425RlgbnseXayugosvr hypertension (20 sources)Essential (primary) hypertension; Translations: [Benign essential hypertension]Onset: 85-64-2616IakuapjJfpajqimxerzj and screening for infectious disease (2 sources)Vaccination needed; Translations: [Encounter for immunization] 78-24-5634ThvrgwxtMyncclr and fatigue (20 sources)Fatigue; Translations: [Chronic fatigue, unspecified]Onset: 440528-03-2452CoshzwvPotkvmroam disorders (20 sources)Other primary ovarian failure; Translations: [Decreased estrogen level]Onset: 15-19-3963VbcjshoAsmoemavityip mental health disorders (6 sources)Chronic insomnia; Translations: [Psychophysiologic insomnia]Chronic Nausea and vomiting (6 sources)Nausea; Translations: [Nausea]11-75-4670TggetwvcQzkeg diseases of veins and lymphatics (20 sources)Venous hypertension of lower limb; Translations: [Chronic venous hypertension (idiopathic) without complications of unspecified lower extremity] Onset: 038416-97-2640NmowkwkWqilr eye disorders (20 sources)Bilateral vitreous floaters; Translations: [Other vitreous opacities, bilateral]Onset: 056244-95-8833QejuwdfYgpxs hereditary and degenerative nervous system conditions (1 source)Restless legs syndrome; Translations: [RESTLESS LEGS SYNDROME]Onset: 30-57-1501IabqalpDpfna hereditary and degenerative nervous system conditions (20 sources)Restless legs; Translations: [Restless legs syndrome]Onset: 320240-70-7721TiihdjfTksgv lower respiratory disease (3 sources)Disorder of lung; Translations: [Other disorders of lung]Episodic Other nervous system disorders (1 source)Polyneuropathy, unspecified; Translations: [POLYNEUROPATHY UNSPECIFIED]Onset: 85-98-1319DrajozgZevke nervous system disorders (20 sources)Chronic pain syndrome; Translations: [Chronic pain syndrome]Onset: 141469-17-0596WeuwpxnOufya nervous system disorders (20 sources)Difficulty walking; Translations: [Difficulty in walking, not elsewhere classified]Onset: 156779-80-4084SndunzqGjvmv nervous system disorders (20 sources)Polyneuropathy; Translations: [Polyneuropathy, unspecified]Onset: 230441-68-2177MbcibxpDelac nutritional; endocrine; and metabolic disorders (6 sources)Obese class II; Translations: [Body mass index (BMI) 35.0-35.9, adult]ChronicOther nutritional; endocrine; and metabolic disorders (1 source)Body mass index (BMI) 35.0-35.9, adultOnset: 07-02-2021 Resolved: 30-70-0272LphjrvbAcsvz nutritional; endocrine; and metabolic disorders (20 sources)Body mass index 30+ - obesity; Translations: [Obesity, unspecified] Onset: 734405-00-2352LgncdxyXrzla nutritional; endocrine; and metabolic disorders (20 sources)Lipoprotein deficiency disorder; Translations: [Lipoprotein deficiency]Onset: 769591-99-3493JokyitrVhbuu nutritional; endocrine; and metabolic disorders (20 sources)Obesity caused by energy imbalance; Translations: [Morbid (severe) obesity due to excess calories]Onset: 851329-65-9544ZqludbqCtqpf upper respiratory disease (20 sources)Allergic rhinitis; Translations: [Other allergic rhinitis]Onset: 444061-95-7854SstltsfTwdkynpdcp and visceral atherosclerosis (20 sources)Peripheral vascular disease; Translations: [Peripheral vascular disease, unspecified]Onset: 795350-23-0314FzqiihiGwuhahyn codes; unclassified (20 sources)Obstructive sleep apnea syndrome; Translations: [Obstructive sleep apnea (adult) (pediatric)]Onset: 586323-22-8647NhunieyZdrhgjyg codes; unclassified (6 sources)Obstructive sleep apnea (adult) (pediatric); Translations: [Obstructive sleep apnea (adult)(pediatric)]Onset: 07-02-2021 Resolved: 05-10-6700RsrvzrsGwjccfcl codes; unclassified (1 source)Obstructive sleep apnea (adult)(pediatric); Translations: [Obstructive sleep apnea (adult) (pediatric)]Onset: 14-56-3426GgbjznbYrorwbdq codes; unclassified (20 sources)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 airway pressure ventilation; Translations: [Dependence on other enabling machines and devices]Onset: 444859-58-4470JdxjcvsRgzwnxap codes; unclassified (20 sources)Initial insomnia; Translations: [Other insomnia]Onset: 12-14-2022 70-38-3534RiwtaunWfiyicytvlu; intervertebral disc disorders; other back problems (20 sources)Spondylosis without myelopathy or radiculopathy, lumbar region; Translations: [Other intervertebraldisc degeneration, lumbar region]Onset: 18-19-5743GmfbkuyJahhoeytzpv; intervertebral disc disorders; other back problems (17 sources)Spinal stenosis, lumbar region without neurogenic claudication; Translations: [Radiculopathy, lumbar region]Onset: 78-30-0793MdtfbozkQvojrvz and strains (4 sources)Lower back injury; Translations: [Strain of muscle, fascia and tendon of lower back, initial encounter]36-96-9460DtdfxqagGkvfzroogpo injury; contusion (6 sources)Contusion of lower back and pelvis, initial encounter; Translations: [Injury of conjunctiva and corneal abrasion without foreign body, right eye, initial encounter]Onset: 67-58-6081BgqfncnrGxiunlq disorders (2 sources)Hypothyroidism; Translations: [Hypothyroidism, unspecified]07-02-2024 ChronicUnclassified (3 sources)LOW BACK PAIN, UNSPECIFIED; Translations: [LOW BACK PAIN, UNSPECIFIED]Onset: 50-28-8589Dohjnqqlntaw (2 sources)Medication Problem; Translations: [Medication Problem]Onset: 46-83-1334Kaobzwgmvpda (1 source)Eye PainOnset: 50-78-7574Pqufmlmzjazl (1 source)right eye issueOnset: 03-18-2024 Past or Other Problems Problem ClassificationProblemDateDocumented DateEpisodic/ChronicBlindness and vision defects (20 sources)Diplopia; Translations: [Diplopia]Onset: EpisodicConditions associated with dizziness or vertigo (20 sources)Vertigo; Translations: [Dizziness and giddiness]Onset: 10-27-2023 51-01-4248CdknstsiQ Codes: Fall (1 source)Unspecified fall, initial encounter; Translations: [UNSPECIFIED FALL INITIAL ENCOUNTER]Onset: 26-38-0130UlrwhjjmMrwckhbb of upper limb (20 sources)Fracture of radial neck; Translations: [Displaced fracture of neck of unspecified radius, initial encounter for closed fracture]Onset: 03-11-2023 39-39-5984YwtwuiovWnmr disorders (20 sources)Mood disordersOnset: Other aftercare (1 source)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; Translations: [JACK FRAME TENDER CURRENT USE OF INSULIN]Onset: 51-19-3627FemjhkniZcqsl aftercare (1 source)nursing home (current) use of aspirin; Translations: [JACK FRAME TENDER CURRENT USE OF ASPIRIN]Onset: 12-70-2092YwybovhfQuixr aftercare (1 source)exterminator helper (current) use of oral hypoglycemic drugs; Translations: [JACK FRAME TENDER USE ORAL HYPOGLYCEMIC DX]Onset: 72-42-2572DxzpyzwiQvwhc aftercare (1 source)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; Translations: [OTH JACK FRAME TENDER CURRENT DRUG THERAPY]Onset: 05-76-9174FnkyzoehEhmit aftercare (20 sources)Long-term current use of insulin; Translations: [nursing home (current) use of insulin]Onset: 893426-25-4042CqqpfkbzOpmyo and unspecified benign neoplasm (20 sources)Adenomatous polyp of colon ; Translations: [Benign neoplasm of ascending colon]Onset: 579293-50-3068XveojztvJngfw and unspecified benign neoplasm (20 sources)History of polyp of colon; Translations: [Personal history of colonic polyps]Onset: 221197-16-6519CtbldosbQqgae and unspecified benign neoplasm (20 sources)Benign neoplasm of colon; Translations: [Benign neoplasm of colon, unspecified]Onset: 769401-77-5055EfictqaiWbidb bone disease and musculoskeletal deformities (20 sources)Osteopenia; Translations: [Other specified disorders of bone density and structure, unspecified site]Onset: 582914-98-2699KcrcliuhBelta connective tissue disease (1 source)Arthrodesis status; Translations: [ARTHRODESIS STATUS]Onset: 72-19-6585PzfryoqaKdwwn connective tissue disease (20 sources)Trigger thumb of left hand; Translations: [Trigger thumb, left thumb]Onset: 443714-16-8242WwjduyxmDldde connective tissue disease (20 sources)Acquired trigger finger; Translations: [Trigger finger, unspecified finger]Onset: 767246-69-9891JlujslkbZdorm connective tissue disease (2 sources)Iliopsoas bursitis of right hip; Translations: [Other bursitis of hip, right hip]34-28-4157BnjppcvwLgmdz diseases of veins and lymphatics (20 sources)Peripheral venous insufficiency; Translations: [Venous insufficiency (chronic) (peripheral)]Onset: 286167-30-4505JcwlkrlsAyzbr eye disorders (20 sources)Lower eyelid ectropion; Translations: [Unspecified ectropion of unspecified eye, unspecified eyelid]Onset: 857516-31-1292GmgzhrgiOgsdx eye disorders (20 sources)Epiphora; Translations: [Unspecified epiphora, unspecified side] Onset: 810878-56-6637KvclcazkEqkjd injuries and conditions due to external causes (20 sources)History of fall; Translations: [History of falling]Onset: 10-02-2015 43-57-8586AnkyntjmWgeay non-traumatic joint disorders (20 sources)Pain in elbow; Translations: [Pain in unspecified elbow]Onset: 761616-23-9753ThzvhhnvCeziv nutritional; endocrine; and metabolic disorders (20 sources)Cholesterol level - finding; Translations: [Lipoprotein deficiency] Onset: 12-14-2022 Resolved: 404483-22-4755GvqzsmdIdbegvnk codes; unclassified (1 source)Insomnia, unspecified; Translations: [INSOMNIA UNSPECIFIED]Onset: 40-78-0763XgyuxktdDkkzaoqb codes; unclassified (2 sources)Localized edema; Translations: [Localized edema]Onset: 09-28-2022 EpisodicResidual codes; unclassified (20 sources)Insomnia; Translations: [Insomnia, unspecified]Onset: 06-10-2015 57-43-9477IuwhlgrnSbczvoll codes; unclassified (20 sources)Family history of malignant neoplasm of gastrointestinal tract; Translations: [Family history of malignant neoplasm of digestive organs]Onset: 665731-76-4610BgtzdjmvAffpjtqvu and history of mental health and substance abuse codes (20 sources)Ex-smoker; Translations: [Personal history of nicotine dependence] Onset: 676787-11-0692AbzdlibfEiibi and face fractures (20 sources)Closed fracture of orbital floor (blow-out); Translations: [Fracture of orbital floor, unspecified side, initial encounter for closed fracture] Onset: 341764-97-3236VeqsokdqHrwjbbu disorders (20 sources)Sick-euthyroid syndrome; Translations: [Sick-euthyroid syndrome] Onset: 844766-89-7576ZqfuozmiGwnqaslfbipl (1 source)LOW BACK PAIN, UNSPECIFIED; Translations: [LOW BACK PAIN, UNSPECIFIED] Onset: 10-30-2021 Results Test NameValueInterpretationReference RangeFacilityALBUMIN, RANDOM URINE W/CREATININEon 22-20-7849EWAXMAO, URINE0.3 mg/dLNormalSee Note:[employer] Comment on above:Result Comment: Reference Range: Reference Range Not establishedPerformed By: #### 4970, 32293, 7600 #### [facility] [place] [address] Technical Photographer: Cezar Singh MDALBUMIN/CREATININE RATIO, RANDOM URINE8 mg/g [...] within a diagnostic category.Performed By: #### 6517, 42332, 7600 #### [facility] [place] [address] Technical Photographer: Cezar Singh MDCreatinine (U) [Mass/Vol]40 mg/gLMjomvb30-958 [facility] DiagnosticsComment on above:Performed By: #### 6517, 87126, 7600 #### [facility] [place] [address] Technical Photographer: Cezar RAZOOMPREHENSIVE METABOLIC PANELon 2025 Albumin [Mass/Vol]4.2 g/dLNormal3.6-5.1Quest DiagnosticsComment on above: Performed By: #### 6517, 49653, 7600 #### [facility] [place] [address] Technical Photographer: Cezar Singh MDAlbumin/Globulin [Mass ratio]1.6 {ratio}Normal 1.0-2.5Quest DiagnosticsComment on above:Performed By: #### 6517, 92781, 7600 #### [facility] [place] [address] Technical Photographer: Cezar Singh MDALP [Catalytic activity/Vol]85 U/IDezrpz51-512 [facility]osticsComment on above:Performed By: #### 6517, 41579, 7600 #### [place] [address] Technical Photographer: Cezar Singh MDALT [Catalytic activity/Vol]12 U/LNormal6-29 [facility] DiagnosticsComment on above:Performed By: #### 6517, 27301, 7600 #### [facility] of [address], [address] [place] [address] Technical Photographer: Cezar Singh MDAST [Catalytic activity/Vol]13 U/RDhzjdk30-46 [facility] DiagnosticsComment on above:Performed By: #### 6517, 46298, 7600 #### [facility] of [address], [address] [place] [address] Technical Photographer: Cezar Singh MDBilirubin [Mass/Vol]0.4 mg/dLNormal0.2-1.2 [facility] DiagnosticsComment on above:Performed By: #### 6517, 35759, 7600 #### [facility] of [address], [address] [place] [address] Technical Photographer: Cezar Singh MDBUN/CREATININE RATIOSEE NOTE:Normal6-22Quest DiagnosticsComment on above:Result Comment: Not Reported: BUN and Creatinine are within reference range.Performed By: #### 6517, 38436, 7600 #### [facility] of [address], [address] [place] [address] Technical Photographer: Cezar Singh MDCalcium [Mass/Vol]9.4 mg/dLNormal8.6-10.4Quest DiagnosticsComment on above:Performed By: #### 6517, 74403, 7600 #### [facility] of [address], [address] [place] [address] Technical Photographer: Cezar Singh MDChloride [Moles/Vol]102 mmol/WOxybec02-527 [facility] DiagnosticsComment on above:Performed By: #### 6517, 01732, 7600 #### [facility] of [address], [address] [place] [address] Technical Photographer: Cezar Singh MDCO2 [Moles/Vol]28 mmol/LFhliks24-02Sjufl DiagnosticsComment on above:Performed By: #### 6517, 42997, 0 #### [facility] [place] [address] Technical Photographer: Cezar Singh MDCreatinine [Mass/Vol]0.90 mg/dLNormal0.60-0.95 [facility] DiagnosticsComment on above:Performed By: #### 6517, 49927, 0 #### [facility] [place] [address] Technical Photographer: Cezar Singh MDGFR/1.73 sq M.predicted among non-blacks MDRD (S/P/Bld) [Vol rate/Area]65 mL/min/{1.73_m2}Normal> OR = 60[facility] Comment on above:Performed By: #### 6517, , 0 #### [facility] [place] [address] Technical Photographer: Cezar Singh MDGlobulin (S) [Mass/Vol]2.7 g/dLNormal1.9-3.7 [facility] DiagnosticsComment on above:Performed By: #### 6517, 64607, 0 #### [facility] [place] [address] Technical Photographer: Cezar Singh MDGlucose [Mass/Vol]129 mg/fKSawl23-51Zvvew DiagnosticsComment on above:Result Comment: Fasting reference interval For someone without known diabetes, a glucose value >125 mg/dL indicates that they may have diabetes and this should be confirmed with a follow-up test.Performed By: #### 6517, 90906, 7600 #### [facility] [place] [address] Technical Photographer: Cezar Singh MDPotassium [Moles/Vol]4.0 mmol/LNormal3.5-5.3 [facility] DiagnosticsComment on above:Performed By: #### 6517, 67948, 7600 #### [facility] of [address], [address] [place] [address] Technical Photographer: Cezar Singh MDProtein [Mass/Vol]6.9 g/dLNormal6.1-8.1Quest DiagnosticsComment on above:Performed By: #### 6517, 18206, 7600 #### [facility] of [address], [address] [place] [address] Technical Photographer: Cezar Singh MDSodium [Moles/Vol]142 mmol/QAysqlj185-472Cvjne DiagnosticsComment on above:Performed By: #### 6517, 52916, 7600 #### [facility] of [address], [address] [place] [address] Technical Photographer: Cezar Singh MDUrea nitrogen [Mass/Vol]17 mg/dLNormal7-25 [facility] DiagnosticsComment on above:Performed By: #### 6517, 30071, 0 #### [facility] of [address], [address] [place] [address] Technical Photographer: Cezar Singh MDLIPID PANEL, [facility] 68-47-5386Ppqktvlsloj [Mass/Vol]154 mg/dLNormal<200Quest DiagnosticsComment on above:Order Comment: FASTING:YES FASTING: YESPerformed By: #### 6517, 18161, 0 #### [facility] of [place] [address] Technical Photographer: Cezar Singh MDCholesterol in HDL [Mass/Vol]55 mg/dLNormal> OR = 50Quest DiagnosticsComment on above:Order Comment: FASTING:YES FASTING: YESPerformed By: #### 6517, 78585, 7600 #### [facility] of [place] [address] Technical Photographer: Cezar Singh MDCholesterol in LDL [Mass/Vol]73 mg/dLNormal [...] of LDL-C. Tien TUTTLE et al. ARON. 2013;310(86): 5756-5667 (http://education.[employer].WiseStamp/faq/ISH753)Performed By: #### 6517, 89083, 7600 #### [facility] [address], [address] [place] [address] Technical Photographer: Cezar RAZOholesterol.total/Cholesterol in HDL [Mass ratio]2.8 {ratio}Normal<5.0Quest DiagnosticsComment on above:Order Comment: FASTING:YES FASTING: YESPerformed By: #### 6517, 20769, 7600 #### [facility] [address], [address] [place] [address] Technical Photographer: Cezar COTTER HDL LTCBAKNOOQR46 mg/dL (calc)Normal<130 [facility] DiagnosticsComment on above:Order Comment: FASTING:YES FASTING: YESResult Comment: For patients with diabetes plus 1 major ASCVD risk factor, treating to a non-HDL-C goal of <100 mg/dL (LDL-C of <70 mg/dL) is considered a therapeutic option.Performed By: #### 6517, 62181, 7600 #### [facility] [address], [address] [place] [address] Technical Photographer: Cezar Singh MDTriglyceride [Mass/Vol]191 mg/dLHigh<150Quest DiagnosticsComment on above:Order Comment: FASTING:YES FASTING: YESPerformed By: #### 6517, 53288, 7600 #### [facility] [address], [address] [place] [address] Technical Photographer: Cezar Singh MDLaboratory - Chemistry and Chemistry - challengeon 71-63-0034Lixpvev [Mass/Vol]4.2 g/dL3.6 - 5.1 g/dLNOLake Regional Health System Albumin/Globulin [Mass ratio]1.6 {ratio}[facility] HealthcareALP [Catalytic activity/Vol]85 U/L37 - 153 U/LNOMS HealthcareALT [Catalytic activity/Vol]12 U/L 6 - 29 U/LNOMS HealthcareAST [Catalytic activity/Vol]13 U/L10 - 35 U/LNOMS HealthcareBilirubin [Mass/Vol]0.4 mg/dL0.2 - 1.2 mg/dLNOSD HealthcareCalcium [Mass/Vol]9.4 mg/dL8.6 - 10.4 mg/dLMercy Hospital St. LouisChloride [Moles/Vol]102 mmol/L 98 - 110 mmol/LNOMS HealthcareCO2 [Moles/Vol]28 mmol/L20 - 32 mmol/LNOMS HealthcareCreatinine [Mass/Vol]0.9 mg/dL0.60 - 0.95 mg/dLMercy Hospital St. LouisGFR/1.73 sq M.predicted among non-blacks MDRD (S/P/Bld) [Vol rate/Area]65 mL/min/{1.73_m2}> OR = 60 mL/min/1.31w2AGPMMercy Hospital St. LouisGlobulin (S) [Mass/Vol]2.7 g/dLNOLake Regional Health SystemGlucose [Mass/Vol]129 mg/bDOemn40 - 99 mg/dLMercy Hospital St. Louis Comment on above: Fasting reference interval For someone without known diabetes, a glucose value >125 mg/dL indicates that they may have diabetes and this should be confirmed with a follow-up test. Potassium [Moles/Vol]4 mmol/L3.5 - 5.3 mmol/LNOMS HealthcareProtein [Mass/Vol] 6.9 g/dL6.1 - 8.1 g/dLNOLake Regional Health SystemSodium [Moles/Vol]142 mmol/L135 - 146 mmol/LNOMS HealthcareUrea nitrogen [Mass/Vol]17 mg/dL7 - 25 mg/dLNOLake Regional Health System Urea nitrogen/Creatinine [Mass ratio]SEE NOTE:[facility] HealthcareComment on above: Not Reported: BUN and Creatinine are within reference range. Lipid 1996 panelon 95-44-8372Kkuoymilljf [Mass/Vol]154 mg/dLNINF - 200 mg/dLNOLake Regional Health SystemCholesterol in HDL [Mass/Vol]55 mg/dL> OR = 50[facility] Cholesterol in LDL [Mass/Vol]73 mg/dLmg/dL (calc)[facility] HealthcareComment on above:Reference range: <100 Desirable range <100 mg/dL for primary prevention; <70 mg/dL for patients with CHD or diabetic patients with > or = 2 CHD risk factors. LDL-C is now calculated using the eJfe calculation, which is a validated novel method providing better accuracy than the Friedewald equation in the estimation of LDL-C. Tien TUTTLE et al. ARON. 2013;310(19): 7659-4854 (http://education.[employer]/faq/ADD352) Cholesterol non HDL [Mass/Vol]99 mg/dLNILakeway HospitalComment on above:For patients with diabetes plus 1 major ASCVD risk factor, treating to a non-HDL-C goal of <100 mg/dL (LDL-C of <70 mg/dL) is considered a therapeutic option. Cholesterol.total/Cholesterol in HDL [Mass ratio]2.8 {ratio}[facility] Triglyceride [Mass/Vol]191 mg/dLHighNINF - 150 mg/dLMercy Hospital St. Louis Microalbumin/Creatinine ratio panel (U)on 15-73-2616Sfuqmse DL <= 20 mg/L (U) [Mass/Vol]0.3 mg/dLSee Note:[facility] HealthcareComment on above:Reference Range: Reference Range Not established Albumin/Creatinine (U) [Mass ratio]8NINFMercy Hospital St. LouisComment on above: The ADA defines abnormalities in [...] category. Creatinine (U) [Mass/Vol]40 mg/dL20 - 275 mg/dLMercy Hospital St. LouisNo Panel Informationon 20-99-1910Vamalwqjmdzlhx and review of laboratory resultsAbnormal [facility] Hospital St. LouisFASTING:YES FASTING: YESQUESTPerforming Organization Information Site ID: QPT Name: [employer] [facility] Address: [address] [place] [address], [address] [place] [id number] Director: Cezar OSUNAKansas [facility] HealthcareLaboratory - Hematology and Cell countson 45-00-1255ScK4s (Bld) [Mass fraction]7.8 %NOM HealthcareNo Panel Informationon 42-17-1931OY[facility] HealthcareXR Thoracic spine 2 Viewson 28-03-6885[address] [address] XRay Report Signed Patient: KONRAD GUZMAN MR#: [id number] : 1945 Acct:[id number] Age/Sex: 79 / F ADM Date: 01/24/25 Loc: [place] Attending Dr: Rylee Kenyon NP Ordering Physician: Rylee Kenyon NP Date of Service: 01/24/25 Procedure(s): XR thoracic spine 2V Accession Number(s): [id number] cc: KOFI BOWERS ; Rylee Kenyon NP [place] [id number] Patient Name: KONRAD GUZMAN MRN: [id number] date: 1945 Sex: F Assigned Patient Location: [facility] Current Patient Location: [facility] Accession/Order Number: [id number] Exam Date: 01/24/2025 12:17 Report Date: 01/24/2025 [...] Ramírez M.D. 01/24/2025 12:21 PM Dictation Location: [place] [address] Electronically authenticated by: [id number] Y Date: 01/24/2025 12:21 Dictated By: Skye Ramírez M.D. 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: [employer] Specialist:TBHRadiology, Radiologist, - 01/24/[address] [place] [address] XRay Report Signed Patient: KONRAD GUMZAN MR#: [id number] : 1945 Acct:[id number] Age/Sex: 79 / F ADM Date: 01/24/25 Loc: [place] Attending Dr: Rylee Kenyon NP Ordering Physician: Rylee Kenyon NP Date of Service: 01/24/25 Procedure(s): XR thoracic spine 2V Accession Number(s): [id number] cc: KOFI BOWERS ; Rylee Kenyon NP [place] [address] Patient Name: KONRAD GUZMAN MRN: [facility]:[id number] date: 1945 Sex: F Assigned Patient Location: [facility] Current Patient Location: [facility] Accession/Order Number: [id number] Exam Date: 01/24/2025 12:17 Report Date: 01/24/2025 [...] Ramírez M.D. 01/24/2025 12:21 PM Dictation Location: [place] [address] Electronically authenticated by: [id number] Y Date: 01/24/2025 12:21 Dictated By: Skye Ramírez M.D. 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: [employer] Specialist: [facility] St. LouisRadiology Study observation (narrative)[facility] HealthcareXR Thoracic spine 2 ViewsOrdered By: Radiologist Radiology on 51-61-0842BPOHMercy Hospital St. Louis Work Phone: Laboratory - Hematology and Cell countson 01-14-2025 HbA1c (Bld) [Mass fraction]6.4 %[facility] Hospital St. LouisNo Panel Informationon 01-14-2025 Interpretation and review of laboratory resultsAbNovant Health Forsyth Medical CenterLaboratory - Hematology and Cell countson 89-23-3188XuJ0s (Bld) [Mass fraction]6.4 %[facility]. LouisNo Panel Informationon 88-48-6464Vawglnsfnqtyuc and review of laboratory resultsAbNovant Health Forsyth Medical CenterALL BASIC METABOLIC PANELon 88-98-7696Wzjii gap [Moles/Vol]11.6 mmol/LNOMS Healthcare Calcium [Mass/Vol]9 mg/dL8.5 - 10.1 mg/dLSALT LAKE REGIONAL [facility]ICAL [facility] HealthcareChloride [Moles/Vol]106 mmol/L98 - 107 mmol/LNOMS HealthcareCO2 [Moles/Vol]30.2 mmol/L21.0 - 32.0 mmol/L [facility]. LouisCreatinine [Mass/Vol]0.99 mg/dL0.55 - 1.02 mg/dLMercy Hospital St. Louis GFR/1.73 sq M.predicted CKD-EPI (S/P/Bld) [Vol rate/Area]>60>=60 mL/min/1.73m 2 [facility] HealthcareGlucose [Mass/Vol]132 mg/bLIcwo07 - 106 mg/dLMercy Hospital St. Louis Interpretation and review of laboratory resultsAbJohn D. Dingell Veterans Affairs Medical CenterPotassium [Moles/Vol]3.8 mmol/L3.5 - 5.1 mmol/LNOMS HealthcareSodium [Moles/Vol]144 mmol/L 136 - 145 mmol/LNOMS HealthcareTBH EGFR-NON AF IVUMABRW44Ckc>=60 mL/min/1.73m 2 N[facility] HealthcareUrea nitrogen [Mass/Vol]15 mg/dL7.0 - 18.0 mg/dLNOMS Healthcare Urea nitrogen/Creatinine [Mass ratio]15.2 mg/mgNOMS HealthcareCLINISYNCNOMS HealthcareECG 12-LEADon 34-66-2367SgtF[place] [address] Electrocardiograph Report Signed Patient: KONRAD GUZMAN MR#: [id number] : 1945 Acct:[id number] Age/Sex: 79 / F ADM Date: 07/18/24 Loc: PST Attending Dr: Jenny Maya M.D. Ordering Physician: Jenny Maya M.D. Date of Service: 07/18/24 Procedure(s): ECG 12 lead Accession Number(s): [id number] cc: [facility] Test Date: 2024-07-18 Pat Name: KONRAD GUZMAN Department: Room: - Gender: Female [employer] [employer] Reporter: : 1945 Requested By: KOFI BOWERS Order Number: [id number] Reading MD: MEGA ACUÑA Measurements Intervals [place] Rate: 84 P: 13 MO: 158 QRS: 70 QRSD: 98 T: 66 QT: 379 QTc: 450 Interpretive Statements SINUS RHYTHM WITH SINUS ARRHYTHMIA Compared to ECG 06/26/2021 12:41:20 Ventricular premature complex(es) no longer present Electronically Signed On 07-18-2024 22:55:56 EST by MEGA ACUÑA Dictated By: Mega Acuña D.O. Signed By: 07/18/24 2256 DD/ 1038 TD/TT: [employer] Specialist:TBHRadiology, Radiologist, - 07/18/2024 [place] [address] Electrocardiograph Report Signed Patient: KONRAD GUZMAN MR#: [id number] : 1945 Acct:[id number] Age/Sex: 79 / F ADM Date: 07/18/24 Loc: PST Attending Dr: Jenny Maya M.D. Ordering Physician: Jenny Maya M.D. Date of Service: 07/18/24 Procedure(s): ECG 12 lead Accession Number(s): [id number] cc: [facility] Test Date: 2024-07-18 Pat Name: KONRAD GUZMAN Department: Room: - Gender: Female [address] Reporter: : 1945 Requested By: KOFI BOWERS Order Number: [id number] Reading MD: MEGA ACUÑA Measurements Intervals [place] Rate: 84 P: 13 MO: 158 QRS: 70 QRSD: 98 T: 66 QT: 379 QTc: 450 Interpretive Statements SINUS RHYTHM WITH SINUS ARRHYTHMIA Compared to ECG 06/26/2021 12:41:20 Ventricular premature complex(es) no longer present Electronically Signed On 07-18-2024 22:55:56 EST by MEGA ACUÑA Dictated By: Mega Acuña D.O. Signed By: 07/18/24 2256 DD/ 1038 TD/TT: [employer] Specialist: NOMBrooklyn HealthcareRadiology Study observation (narrative)NOM HealthcareECG 12-LEAD Ordered By: Radiologist Radiology on 65-86-5645[facility] Work Phone: ct Lumbar spine WO contraston 15-76-9126GajF[place], [place] [address] CT Scan Report Signed Patient: KONRAD UGZMAN MR#: [id number] : 1945 Acct:[id number] Age/Sex: 79 / F ADM Date: 05/24/24 Loc: CT Attending Dr: Jenny Maya M.D. Ordering Physician: Jenny Maya M.D. Date of Service: 05/24/24 Procedure(s): CT lumbar spine wo con Accession Number(s): [id number] cc: KOFI BOWERS [place] [id number] Patient Name: KONRAD GUZMAN MRN: [id number] date: 1945 Sex: F Assigned Patient Location: CT Current Patient Location: Accession/Order Number: [id number] Exam Date: 05/24/2024 13:23 Report Date: 05/25/2024 [...] M.D. Signed By: 05/25/24902 DD/ 9 TD/TT: [employer] Specialist:TBHRadiology, Radiologist, - 05/25/2024 [place] [address] CT Scan Report Signed Patient: KONRAD GUZMAN MR#: [id number] : 1945 Acct:[id number] Age/Sex: 79 / F ADM Date: 05/24/24 Loc: CT Attending Dr: Jenny Maya M.D. Ordering Physician: Jenny Maya M.D. Date of Service: 05/24/24 Procedure(s): CT lumbar spine wo con Accession Number(s): [id number] cc: KOFI BOWERS [place] [id number] Patient Name: KONRAD GUZMAN MRN: [id number] date: 1945 Sex: F Assigned Patient Location: CT Current Patient Location: Accession/Order Number: [id number] Exam Date: 05/24/2024 13:23 Report Date: 05/25/2024 [...] M.D. Signed By: 05/25/24902 DD/ 9 TD/TT: [employer] Specialist: CHANTAL [facility] Thoracic spine WO contraston 54-37-9914RnrFulton, [place] [address] [place] Scan Report Signed Patient: KONRAD GUZMAN MR#: [id number] : 1945 Acct:[id number] Age/Sex: 79 / F ADM Date: 05/24/24 Loc: CT Attending Dr: Jenny Maya M.D. Ordering Physician: Jenny Maya M.D. Date of Service: 05/24/24 Procedure(s): CT thoracic spine wo con Accession Number(s): [id number] cc: KOFI BOWERS [place] [id number] Patient Name: KONRAD GUZMAN MRN: [id number] date: 1945 Sex: F Assigned Patient Location: CT Current Patient Location: Accession/Order Number: [id number] Exam Date: 05/24/2024 13:23 Report Date: 05/25/2024 [...] M.D. Signed By: 05/25/24902 DD/ 9 TD/TT: [employer] Specialist:TBHRadiology, Radiologist, - 05/28/2024 [place] [address] CT Scan Report Signed Patient: KONRAD GUZMAN MR#: [id number] : 1945 Acct:[id number] Age/Sex: 79 / F ADM Date: 05/24/24 Loc: CT Attending Dr: Jenny Maya M.D. Ordering Physician: Jenny Maya M.D. Date of Service: 05/24/24 Procedure(s): CT thoracic spine wo con Accession Number(s): [id number] cc: KOFI BOWERS [place] [id number] Patient Name: KONRAD GUZMAN MRN: [id number]:[id number] date: 1945 Sex: F Assigned Patient Location: CT Current Patient Location: Accession/Order Number: [id number] Exam Date: 05/24/2024 13:23 Report Date: 05/25/2024 [...] M.D. Signed By: 05/25/24902 DD/ 9 TD/TT: [employer] Specialist: CHANTAL HealthcareNo Panel InformationOrdered By: Radiologist Radiology on 71-71-6357[facility] Work Phone: no Panel Informationon 20-53-8577Jgzddoimi Study observation (narrative)[facility] HealthcareNo Panel InformationOrdered By: Radiologist Radiology on 49-13-3044NACRMercy Hospital St. Louis Work Phone: No Panel Informationon 87-30-7690Boxnxhpau Study observation (narrative)NOMS HealthcareXR LUMBAR SPINE MIN 4Von 81-53[place], [place] [address] XRay Report Signed Patient: KONRAD GUZMAN MR#: [id number] : 1945 Acct:[id number] Age/Sex: 79 / F ADM Date: 05/10/24 Loc: RAD Attending Dr: Rylee Kenyon NP Ordering Physician: Rylee Kenyon NP Date of Service: 05/10/24 Procedure(s): XR lumbar spine min 4V Accession Number(s): [id number] cc: KOFI BOWERS ; Rylee Kenyon NP [address] [place] [address] Patient Name: KONRAD GUZMAN MRN: [id number] date: 1945 Sex: F Assigned Patient Location: [facility] Current Patient Location: [facility] Accession/Order Number: [id number] Exam Date: 05/10/2024 13:28 Report Date: 05/11/2024 [...] Signed By: 05/11/24 1021 DD/ 1018 TD/TT: [employer] Specialist:LOUISEadiology, Radiologist, - 05/11/[address] [place] [address] XRay Report Signed Patient: KONRAD GUZMAN MR#: [id number] : 1945 Acct:[id number] Age/Sex: 79 / F ADM Date: 05/10/24 Loc: [facility] Attending Dr: Rylee Kenyon NP Ordering Physician: Rylee Kenyon NP Date of Service: 05/10/24 Procedure(s): XR lumbar spine min 4V Accession Number(s): [id number] cc: KOFI BOWERS ; Rylee Kenyon NP [place] [address] Patient Name: KONRAD GUZMAN MRN: [id number] date: 1945 Sex: F Assigned Patient Location: [facility] Current Patient Location: [facility] Accession/Order Number: [id number] Exam Date: 05/10/2024 13:28 Report Date: 05/11/2024 [...] Signed By: 05/11/24 1021 DD/ 1018 TD/TT: [employer] Specialist: CHANTAL Smith Thoracic spine 2 Viewson 24-26[place]3197[place]vh[place], [place] [address] XRay Report Signed Patient: KONRAD GUZMAN MR#: [id number] : 1945 Acct:[id number] Age/Sex: 79 / F ADM Date: 05/10/24 Loc: [facility] Attending Dr: Rylee Kenyon NP Ordering Physician: Rylee Kenyon NP Date of Service: 05/10/24 Procedure(s): XR thoracic spine 2V Accession Number(s): [id number] cc: KOFI BOWERS ; Rylee Kenyon NP [place] [address] Patient Name: KONRAD GUZMAN MRN: [id number] date: 1945 Sex: F Assigned Patient Location: [facility] Current Patient Location: [facility] Accession/Order Number: [id number] Exam Date: 05/10/2024 13:28 Report Date: 05/11/2024 [...] Signed By: 05/11/24 1021 DD/ 1018 TD/TT: [employer] Specialist:TBHRadiology, Radiologist, MD - 05/11/[address] [place] [address] XRay Report Signed Patient: KONRAD GUZMAN MR#: [id number] : 1945 Acct:[id number] Age/Sex: 79 / F ADM Date: 05/10/24 Loc: RAD Attending Dr: Rylee Kenyon NP Ordering Physician: Rylee Kenyon NP Date of Service: 05/10/24 Procedure(s): XR thoracic spine 2V Accession Number(s): [id number] cc: KOFI BOWERS ; yRlee Kenyon NP [address] [place] [address] Patient Name: KONRAD GUZMAN MRN: [id number] date: 1945 Sex: F Assigned Patient Location: [facility] Current Patient Location: [facility] Accession/Order Number: [id number] Exam Date: 05/10/2024 13:28 Report Date: 05/11/2024 [...] Signed By: 05/11/24 1021 DD/ 1018 TD/TT: [employer] Specialist: CHANTAL Saavedra retinopathy [Minimum Data Set]on 05-03-2024 Interpretation and review of laboratory resultsAbJohn D. Dingell [facility] Microscopic observation Cyto stain Nom (Cvx)abnLifeCare Hospitals of North Carolina Radiology Study observation (narrative)[facility] Hospital St. LouisHbA1c (Bld) [Mass fraction]on 66-97-7308BPGWMercy Hospital St. LouisLaboratory - Hematology and Cell countson 43-17-9162DdX2u (Bld) [Mass fraction]7.0 %[facility]36on Follow-up in 3 months as planned. ThanksNormalUniMercy Health Fairfield HospitalOffice Visiton 42-17-4525Hbonek-up [id number] Konrad Guzman 1945 Provider Department Center 01/03/2023 URI STERN PAULA [facility] Family History Problem Relation Age of Onset Diabetes Father Heart disease Father Coronary artery disease Father Coronary artery disease Brother Family Status - Relation Status Age at Father Brother Level of Service:37441 MO OFFICE/OUTPATIENT ESTABLISHED LOW MDM 20-29 MIN Reason for Visit and Comments: Medication Problem [65]NormalUnMemorial Health System Selby General HospitalOffice Visiton 97-63-6486Pppxce-up [id number] Konrad Guzman 1945 Provider Department Center 09/28/2022 OSCAR TOWNSEND PAULA Dipesh [facility] Family History Problem Relation Age of Onset Diabetes Father Heart disease Father Coronary artery disease Father Coronary artery disease Brother Family Status - Relation Status Age at Father Brother Level of Service:20597 MO OFFICE/OUTPATIENT ESTABLISHED LOW MDM 20-29 MIN Reason for Visit and Comments: Hypertension [707510]NormalUnMemorial Health System Selby General HospitalPROF CHEM 8 (BAS METB)on 25-36-3330Mxieo gap [Moles/Vol]11.6 mmol/LNormalThe [facility] Comment on above:Performed By: #### BMP #### [facility] [address] [place] [address] [address] Rose ChadwickCalcium [Mass/Vol]9.4 mg/dLNormal8.5-10.1The [facility] Comment on above:Performed By: #### BMP #### [facility] [address] [place] [address] [address] Rose ChadwickChloride [Moles/Vol]101 mmol/SNmlunn16-703Fbg [facility] Comment on above:Performed By: #### BMP #### [facility] [address] [place] [address] [address] Rose ChadwickCO2 [Moles/Vol]32.6 mmol/LCritically high21.0-32.0The [facility] HospitalComment on above:Performed By: #### BMP #### [facility] [address] [place] [address] Dr. Rose ChadwickCreatinine [Mass/Vol]0.86 mg/dLNormal0.55-1.02The [facility] HospitalComment on above:Performed By: #### BMP #### [facility] [address] [place] [address] [address] Rose RamirezGFR-AF HAITIAN>60Normal>=60The [facility] HospitalComment on above:Performed By: #### BMP #### [facility] [address] [place] [address] Dr. Rose RamirezGFR-NON AF HAITIAN>60Normal>=60The [facility] HospitalComment on above:Performed By: #### BMP #### [facility] [address] [place] [address] [address] Rose ChadwickGlucose [Mass/Vol]108 mg/dLCritically auqw35-709Tpj [facility] HospitalComment on above:Performed By: #### BMP #### [facility] [address] [place] [address] [address] Rose ChadwickPotassium [Moles/Vol]4.2 mmol/LNormal3.5-5.1The [facility] Comment on above:Performed By: #### BMP #### [facility] [address] [place] [address] [address] Rose ChadwickSodium [Moles/Vol]141 mmol/VQvoitx318-197Rhu [facility] Comment on above:Performed By: #### BMP #### [facility] [address] [place] [address] [address] Rose Alaniz nitrogen [Mass/Vol]15.0 mg/dLNormal7.0-18.0Sal[facility] City HospitalComment on above:Performed By: #### BMP #### [facility] [address] [place] [address] [address] Rose ChadwickUrea nitrogen/Creatinine [Mass ratio]17.4 mg/mgNormalThe [facility] HospitalComment on above:Performed By: #### BMP #### [facility] [address] [place] [address] [address] Rose Chadwick37on 012851-Devhcm an arm BP monitor, Omron brand is preferred -Check blood pressure at least once daily 2-3 hours after taking medications - Stop taking Losartan -Start taking Losartan-hydrochlorothiazide -Check labs in 1 weekNormalUniversMarion HospitalOffice Visiton 05-24-2943Bfteix-up [id number] Konrad Guzman 1945 F Date Provider Department Center 08/31/2022 [address]-QNGFAJXXLOSCAR DEL TORO [facility] Family History Problem Relation Age of Onset Diabetes Father Heart disease Father Coronary artery disease Father Coronary artery disease Brother Family Status - Relation Status Age at Father Brother Level of Service:49109 MO OFFICE/OUTPATIENT ESTABLISHED LOW MDM 20-29 MIN Reason for Visit and Comments: Hypertension [855850]NormalUnMemorial Health System Selby General HospitalPROF CHEM 8 (BAS METB)on 07-84-0988Jgazi gap [Moles/Vol]11.9 mmol/LNormalSalem City Hospital Comment on above:Performed By: #### BMP #### [facility] [address] [place] [address] [address] Rose ChadwickCalcium [Mass/Vol]9.0 mg/dLNormal8.5-10.1[facility] Comment on above:Performed By: #### BMP #### [facility] [address] [place] [address] [address] Rose ChadwickChloride [Moles/Vol]103 mmol/IVeenqz02-180Imq [facility] Comment on above:Performed By: #### BMP #### [facility] [address] [place] [address] Dr. Rose ChadwickCO2 [Moles/Vol]30.3 mmol/UOeukrk96.0-32.0The [facility] Comment on above:Performed By: #### BMP #### [facility] [address] [place] [address] Dr. Rose ChadwickCreatinine [Mass/Vol]0.84 mg/dLNormal0.55-1.02The [facility] HospitalComment on above:Performed By: #### BMP #### [facility] [address] [place] [address] Dr. Rose ChangEGFR-AF HAITIAN>60Normal>=60The [facility] HospitalComment on above:Performed By: #### BMP #### [facility] [address] [place] [address] Dr. Rose RamirezGFR-NON AF HAITIAN>60Normal>=60The [facility] HospitalComment on above:Performed By: #### BMP #### [facility] [address] [place] [address] Dr. Rose ChadwickGlucose [Mass/Vol]119 mg/dLCritically lyyq27-208Zbp [facility] HospitalComment on above:Performed By: #### BMP #### [facility] [address] [place] [address] Dr. Rose ChadwickPotassium [Moles/Vol]4.2 mmol/LNormal3.5-5.1The [facility] Comment on above:Performed By: #### BMP #### [facility] [address] [place] [address] [address] Rose ChadwickSodium [Moles/Vol]141 mmol/BLynzpp261-858Vak [facility] Comment on above:Performed By: #### BMP #### [facility] [address] [place] [address] Dr. Rose ChadwickUrea nitrogen [Mass/Vol]13.0 mg/dLNormal7.0-18.0[facility] City HospitalComment on above:Performed By: #### BMP #### [facility] [address] [place] [address] [address] Rose ChadwickUrea nitrogen/Creatinine [Mass ratio]15.5 mg/mgNormalThUC HealthComment on above:Performed By: #### BMP #### [facility] [address] [place] [address] [address] Rose ChadwickFollow-Upon 29-88-6662Phedin-[id number] Konrad Guzman Enrike 1945 F Date Provider Department Center 06/01/2022 ANGELA CAMERON [facility] Family History Problem Relation Age of Onset Diabetes Father Heart disease Father Coronary artery disease Father Coronary artery disease Brother Family Status - Relation Status Age at Father Brother Level of Service:65903 MO OFFICE/OUTPATIENT ESTABLISHED LOW MDM 20-29 MIN Reason for Visit and Comments: Hypertension [775183]NormalUnMemorial Health System Selby General HospitalPROF CHEM 8 (BAS METB)on 05-73-5996Zlido gap [Moles/Vol]11.1 mmol/LNormalSalem City Hospital Comment on above:Performed By: #### BMP #### [facility] [address] [place] [address] Dr. Rose ChadwickCalcium [Mass/Vol]9.0 mg/dLNormal8.5-10.1[facility] Comment on above:Performed By: #### BMP #### [facility] [address] [place] [address] [address] Rose ChadwickChloride [Moles/Vol]103 mmol/FLilyvt41-275TteSalem City Hospital Comment on above:Performed By: #### BMP #### [facility] [address] [place] [address] [address] Rose ChadwickCO2 [Moles/Vol]29.6 mmol/DTdimnr14.0-32.0[facility] Comment on above:Performed By: #### BMP #### [facility] [address] [place] [address] Dr. Rose ChadwickCreatinine [Mass/Vol]1.22 mg/dLCritically high0.55-1.02The [facility] HospitalComment on above:Performed By: #### BMP #### [facility] [address] [place] [address] [address] Rose RamirezGFR-AF VLYNLVUG28 mL/min/1.98q4Rosugzextx low>=60The [facility] HospitalComment on above:Performed By: #### BMP #### [facility] [address] [place] [address] [address] Rose RamirezGFR-NON AF OACASTSM23 mL/min/1.56e5Ftfvfvfivq low>=60The [facility] HospitalComment on above:Performed By: #### BMP #### [facility] [address] [place] [address] Dr. Rose ChadwickGlucose [Mass/Vol]112 mg/dLCritically bgqn67-132Dta [facility] HospitalComment on above:Performed By: #### BMP #### [facility] [address] [place] [address] Dr. Rose ChadwickPotassium [Moles/Vol]4.7 mmol/LNormal3.5-5.1The [facility] Comment on above:Performed By: #### BMP #### [facility] [address] [place] [address] Dr. Rose ChadwickSodium [Moles/Vol]139 mmol/XKgenew748-007Bzd [facility] Comment on above:Performed By: #### BMP #### [facility] [address] [place] [address] Dr. Rose ChadwickUrea nitrogen [Mass/Vol]23.0 mg/dLCritically high7.0-18.0The [facility] HospitalComment on above:Performed By: #### BMP #### [facility] [address] [place] [address] Dr. Rose Alaniz nitrogen/Creatinine [Mass ratio]18.9 mg/mgNormalThe [facility] HospitalComment on above:Performed By: #### BMP #### [facility] [address] [place] [address] Dr. Rose Payton 90-78-031966Rfhxxn labs reviewed- Serum CR elevated 1.42, BUN [...] changes on voice mail message. Angela Gillespie DATABASE PROGRAMMER ANALYST Division of Cardiology, [facility]- [phone] Pager- [phone] Email- [email or web address] [email or web address] Health Fairfield Hospital Documentationon [id number] Konrad Guzman 1945 F Date Provider Department [...] function and med changes on voice mail message.NormalUnMemorial Health System Selby General HospitalOrders Onlyon 47-69-2789Nrkndz [id number] Konrad Guzman 1945 F Date Provider Department Center 05/10/2022 CA AMANDA Family History Problem Relation Age of Onset Diabetes Father Heart disease Father Coronary artery disease Father Coronary artery disease Brother Family Status - Relation Status Age at Father BrotherNoalUniMercy Health Fairfield HospitalPROF CHEM 8 (BAS METB)on 65-58-7168Xmera gap [Moles/Vol]13.4 mmol/LNormalThe [facility] HospitalComment on above:Performed By: #### BMP ####[facility] [address] [place], [place] [address]Dr.Yilan ChangCalcium [Mass/Vol]9.1 mg/dLNormal 8.5-10.1The [facility] HospitalComment on above:Performed By: #### BMP ####[facility] [address] [place], [place] [address]Dr. Yilan ChangChloride [Moles/Vol]103 mmol/EEvwitg75-554Lxd [facility] Comment on above:Performed By: #### BMP ####[facility] Bnwfdknxtu[address] [place], [place] [address]Dr.Yilan ChangCO2 [Moles/Vol]28.3 mmol/L Hawehl60.0-32.0The [facility] HospitalComment on above:Performed By: #### BMP ####[facility] Kaz[address] [place], [place] [address]Dr. Yilan ChangCreatinine [Mass/Vol]1.42 mg/dLCritically high0.55-1.02The [facility] HospitalComment on above:Performed By: #### BMP ####[facility] [address] [place], [place] [address]Dr.Yilan ChangEGFR-AF IIEHFDWE15 mL/min/1.65u9Oyhhlrwqvx low>=60The [facility] HospitalComment on above: Performed By: #### BMP ####[facility] Muloeatpnt[address] [place], [place] [address]Dr.Yilan ChangEGFR-NON AF OZRQJORD06 mL/min/1.73m2 Critically low>=60The [facility] HospitalComment on above:Performed By: #### BMP ####[facility] Ugdyfaf[address]pe[address] [place], [place] [address]Dr. Yilan ChangGlucose [Mass/Vol]125 mg/dLCritically ywwa34-498Yvt [facility] Comment on above:Performed By: #### BMP ####[facility] [address] [place], [place] [address]Dr.Yilan ChangPotassium [Moles/Vol]5.7 mmol/LCritically high3.5-5.1[facility] City HospitalComment on above:Performed By: #### BMP ####[facility] [address] [place] [address]Dr.Rose ChangSodium [Moles/Vol]139 mmol/UWmncah749-811Dzu [facility] HospitalComment on above:Performed By: #### BMP ####[facility] [address] [place] [address]Dr.Rose ChangUrea nitrogen [Mass/Vol]28.0 mg/dLCritically high7.0-18.0The [facility] HospitalComment on above:Performed By: #### BMP ####[facility] [address] [place] [address]Dr.Rose ChangUrea nitrogen/Creatinine [Mass ratio] 19.7 mg/mgNormalThe [facility] HospitalComment on above:Performed By: #### BMP ####[facility] [address] [place] [address]Dr. Rose ChadwickOffice Visiton 55-30-3089Cbfrec-up [id number] Konrad Guzman 1945 Provider Department Center 04/28/2022 ANGELA CAMERON PAULA Rebolledo Family History Problem Relation Age of Onset Diabetes Father Heart disease Father Coronary artery disease Father Coronary artery disease Brother Family Status - Relation Status Age at Father Brother Level of Service:29035 MO OFFICE/OUTPATIENT ESTABLISHED MOD MDM 30-39 MIN Reason for Visit and Comments: Hypertension [967167] - Patient here for 3 mo follow up hypertension. Denies chest pain and SOB.[facility] HospitalAbstracton [id number] Konrad Guzman 1945 Provider Department Center 04/16/2022 CA AMANDA PAULA Rebolledo Family History Problem Relation Age of Onset Diabetes Father Heart disease Father Coronary artery disease Father Coronary artery disease Brother Family Status - Relation Status Age at Father BrotherNormalUniMercy Health Fairfield HospitalPOINT OF CARE GLUCOSEon 94-02-6130Vhzdolh [Mass/Vol]120 mg/dLCritically hlwl67-025DtbSalem City Hospital Comment on above:Performed By: #### POCGLUC #### [facility] [address] [address] [address] Rose ChadwickCT PELVIS WO CONon 73-25-7399SV PELVIS WO CONEXAMINATION: CT PELVIS WO CON [...] Electronically authenticated by: JOE MUKHERJEE Date: 2022-01-06 12:14[facility] HospitalXR DEXA BONE DENSITYon 87-09-6632OP DEXA BONE DENSITY EXAMINATION: XR DEXA BONE [...] Electronically authenticated by: JOE MUKHERJEE Date: 2022-01-04 11:51[facility] HospitalCT LSJEANETTE ROYAL CONon 06-40-4378RE [facility] CONEXAMINATION: CT JUSTIN ROYAL CON, [...] Electronically authenticated by: JOE MUKHERJEE Date: 2021-11-30 16:48[facility] HospitalPROF CHEM 8 (BAS METB)on 06-86-1625Bsytn gap [Moles/Vol]13.3 mmol/LNormalThe [facility] HospitalComment on above:Performed By: #### BMP ####[facility] Z[address] [place], [place] [address]Dr. Yilan ChangCalcium [Mass/Vol]8.8 mg/dLNormal8.5-10.1The [facility] HospitalComment on above:Performed By: #### BMP ####[facility] Yezxqlfhci[address] [place], [place] [address]Dr.Yilan ChangChloride [Moles/Vol]101 mmol/LNormal 98-107The [facility] HospitalComment on above:Performed By: #### BMP ####[facility] [address]qxjfcml[address] [place], [place] [address]Dr.Yilan ChangCO2 [Moles/Vol]29.5 mmol/JPgknmb39.0-30.0The [facility] HospitalComment on above: Performed By: #### BMP ####[facility] [address]gp[address] [place], [place] [address]Dr.Yilan ChangCreatinine [Mass/Vol]0.85 mg/dLNormal 0.52-1.04The [facility] HospitalComment on above:Performed By: #### BMP ####[facility] [address]ls[address] [place], [place] [address]Dr. Yilan ChangEGFR-AF HAITIAN>60Normal>=60The [facility] HospitalComment on above: Performed By: #### BMP ####[facility] [address]knfzaus[address] [place], [place] [address]Dr.Yilan ChangEGFR-NON AF HAITIAN>60Normal>=60The [facility] HospitalComment on above:Performed By: #### BMP ####[facility] [address]ll[address] [place], [place] [address]Dr.Yilan ChangGlucose [Mass/Vol]116 mg/dLCritically axlw98-977Jfv [facility] HospitalComment on above: Performed By: #### BMP ####[facility] Jsvutos[address] [place], [place] [address]Dr.Yilan ChangPotassium [Moles/Vol]4.8 mmol/LNormal 3.4-5.0[facility] HospitalComment on above:Performed By: #### BMP ####[facility] [address] [place] [address]Dr.Rose Chadwick Sodium [Moles/Vol]139 mmol/WVnzfuu211-254Ewy [facility] HospitalComment on above: Performed By: #### BMP ####[facility] Ituawtovry[address] [place], [place] [address]Dr.Rose ChadwickUrea nitrogen [Mass/Vol]15.0 mg/dLNormal 7.0-18.0The [facility] HospitalComment on above:Performed By: #### BMP ####[facility] [address]fx[address] [place], [place] [address]Dr. Rose ChadwickUrea nitrogen/Creatinine [Mass ratio]17.6 mg/mgNoMercy Memorial HospitalComment on above:Performed By: #### BMP ####[facility] [address]jyzufkzx[address] [place], [place] [address]Dr.Rose ChadwickXR LSPINE MIN 4 VIEWSon 92-54-3365JK LSPINE MIN 4 VIEWSEXAMINATION: XR LSPINE MIN [...] Electronically authenticated by: PATITO BLANCHARD Date: 2021-10-30 15:27[facility] Vital Signs Date TimeVital SignValuePerforming ShyhnabtmHlzvmbcb57-11-9963 11:32-0500Body dfluqp460.4 cmKofi Bowers MD Work Phone: [facility] Hospital St. LouisLbgmnqjulb34-76-9798 11:32-0500Body mass index (BMI) [Ratio]37.89 kg/f9OlodjsKofi Bowers MD Work Phone: [facility] St. LouisXntnawilll21-05-8503 11:32-0500Body naallm85 kg Kofi Bowers MD Work Phone: [facility] SystemRocrbqtbcp75-83-6888 11:32-0500Diastolic blood mm[Hg]Kofi Bowers MD Work Phone: [facility] Health SystemUhuiymzvdd34-09-9777 11:32-0500Heart rate92 /min Kofi Bowers MD Work Phone: [facility] SystemBdtaffaipx77-15-2993 11:32-0500Respiratory rate16 /minDcollin Bowers MD Work Phone: [facility] SystemWcymgiyyva96-10-2383 11:32-5735QdM9% (BldA) [Mass fraction]98 %oKfi Bowers MD Work Phone: [facility] SystemOazrxszqvw67-13-5408 11:32-0500Systolic blood snugcevb658 mm[Hg]Kofi Bowers MD Work Phone: [phone] SystemYttqlronai94-32-2556 08:53-0400Body .4 cmKofi Bowers MD Work Phone: [phone] LouisFrhccfsubv29-23-1262 08:53-0400Body mass index (BMI) [Ratio]37.11 kg/b9YlzcpdKofi Bowers MD Work Phone: [phone] LouisOhwhgkbkfy37-21-3381 08:53-0400Body mbivii68.18 kgKofi Bowesr MD Work Phone: [phone] SystemXnsykbcqfv16-12-5461 08:53-0400Diastolic blood vgurklkc43 mm[Hg]Kofi Bowers MD Work Phone: [phone] SystemDidyazybbb05-15-5643 08:53-0400Heart rate78 /min Kofi Bowers MD Work Phone: [phone] SystemHskhzprnge28-46-7048 08:53-1954WlV8% (BldA) [Mass fraction]96 %Kofi Bowers MD Work Phone: [phone] SystemGrjdcvubyl68-33-0797 08:53-0400Systolic blood qeesypvn515 mm[Hg]Kofi Bowers MD Work Phone: [facility] LouisZueswadqok92-00-6505 10:53-0400Body ibivdz860.4 cmKofi Bowers MD Work Phone: [facility] LouisJoxuihbjap27-42-1443 10:53-0400Body mass index (BMI) [Ratio]36.13 kg/w4BxsdgfKofi Bowers MD Work Phone: [facility] SystemOluvhtetyj63-92-8217 10:53-0400Body .92 kgKofi Bowers MD Work Phone: [facility] LouisTgsqyvukit55-37-3460 10:53-0400Diastolic blood ljlwotuj13 mm[Hg]Kofi Bowers MD Work Phone: [facility] LouisSiwhuqgaqo85-14-8944 10:53-0400Heart rate80 /min Kofi Bowers MD Work Phone: [facility] LouisCvokmvaxcz75-08-2268 10:53-7950HyB0% (BldA) [Mass fraction]96 %Kofi Bowers MD Work Phone: [phone]-[address] LouisEgjtqcuhrz62-10-8272 10:53-0400Systolic blood zreyafyy426 mm[Hg]Kofi Bowers MD Work Phone: [facility] LouisExvhbnhpqf66-87-6962 14:10-0400Body sikkcf870.4 cmKofi Bowers MD Work Phone: [facility] LouisKrdwrunvvp24-29-5653 14:10-0400Body mass index (BMI) [Ratio]34.76 kg/e1WxasmoKofi Bowers MD Work Phone: [facility] LouisNqobauzehu98-00-5377 14:10-0400Body jpopem23.74 kgKofi Bowers MD Work Phone: [facility] SystemIlnuxfachk19-48-2627 14:10-0400Diastolic blood mm[Hg]Kofi Bowers MD Work Phone: [facility] SystemTufafgmgyv09-49-4416 14:10-0400Heart rate77 /min Kofi Bowers MD Work Phone: [facility] LouisYdeizjsduv79-56-1928 14:10-0400Respiratory rate17 /minDcollin Bowers MD Work Phone: [facility] SystemQbdodytlzh05-09-4084 14:10-8670QnZ5% (BldA) [Mass fraction]97 %Kofi Bowers MD Work Phone: [facility] SystemFjfwhmyamu01-97-2952 14:10-0400Systolic blood xeumunxw750 mm[Hg]Kofi Bowers MD Work Phone: [facility] SystemLzrvgplyjr23-19-7100 11:07-0400Body hnfmak819.4 cmKofi Bowers MD Work Phone: [facility] SystemWrperpswes60-91-3000 11:07-0400Body mass index (BMI) [Ratio]34.57 kg/x8AibqzqKofi Bowers MD Work Phone: [facility] SystemRqhqshfehf66-72-5737 11:07-0400Body temperature 97.5 [degF]Kofi Bowers MD Work Phone: [facility] SystemBsdkljupsp09-10-2040 11:07-0400Body etmzrb61.29 kgKofi Bowers MD Work Phone: [facility] SystemNvfmosvfoj89-62-8057 11:07-0400Diastolic blood rbskrdys94 mm[Hg]Kofi Bowers MD Work Phone: [facility] SystemVnblfervst37-26-1585 11:07-0400Heart rate76 /min Kofi Bowers MD Work Phone: [facility] SystemGxhohkonem72-51-7627 11:07-4730StQ0% (BldA) [Mass fraction]97 %Kofi Bowers MD Work Phone: [facility] SystemBcdpykiguh68-30-5024 11:07-0400Systolic blood kbugvsci560 mm[Hg]Kofi Bowers MD Work Phone: [facility] SystemNdxehasajv38-54-5337 13:14-0400Body hkdaux618.4 cmSkye FARIAS Work Phone: [facility] SystemShantpukii02-17-9946 13:14-0400Body mass index (BMI) [Ratio]35.15 kg/y3OekimSkye FARIAS Work Phone: [facility] SystemIlabauezox90-52-3669 13:14-0400Body .65 kgKaren Hemmer PA Work Phone: [facility] LouisMpaegulwlj75-45-3560 13:14-0400Diastolic blood mjfomsqk75 mm[Hg]Skye Hemmer PA Work Phone: [facility] LouisEuppwfenci35-09-1766 13:14-0400Heart rate78 /min Skye Hemmer PA Work Phone: [facility] LouisGwyowteuwz93-48-8834 13:14-0400Respiratory rate16 /minKaren Hemmer PA Work Phone: [facility] LouisNzfdkadyrd96-10-8385 13:14-7195KmK5% (BldA) [Mass fraction]97 %Skye Hemmer PA Work Phone: [facility] LouisWeiqjdgbkb84-00-5974 13:14-0400Systolic blood ppxyefvl675 mm[Hg]Skye Hemmer PA Work Phone: [facility] LouisXooyujpmks74-40-5433 13:21-0500Diastolic blood mm[Hg]Skye Hemmer PA Work Phone: [facility] LouisJwsboerbuj11-12-8642 13:21-0500Systolic blood lsvscajk954 mm[Hg]Skye Hemmer PA Work Phone: [facility] LouisXazasziuge87-25-1983 13:10-0500Body klkczu322.4 cmKaren Hemmer PA Work Phone: [facility] LouisUcqodzivhx78-24-3944 13:10-0500Body mass index (BMI) [Ratio]35.27 kg/d9Qhgti Hemmer PA Work Phone: [facility] LouisKzhmydajqu74-31-5614 13:10-0500Body .92 kgKaren Hemmer PA Work Phone: [facility] LouisQmpbisgxgw46-55-7562 13:10-0500Heart rate99 /min Skye Hemmer PA Work Phone: [facility] LouisYbwkzpjozk12-25-1101 13:10-0500Respiratory rate16 /minKaren Hemmer PA Work Phone: [facility] LouisNmxcwstlsy51-71-4084 13:10-6634GeU2% (BldA) [Mass fraction]99 %Skye FARIAS Work Phone: [facility] LouisKamzguovma38-16-1999 11:41-0500Body mass index (BMI) [Ratio]35.9 kg/b0ZucppwsqpMem[facility]11-14-2024 15:19-0500 Body zaelbh618.4 cm[facility]11-14-2024 15:19-0500Body itxxyb80.46 kgMem[facility]11-14-2024 15:19-0500Diastolic blood vsingpei84 mm[Hg][facility]11-14-2024 15:19-0500 Heart rate87 /min[facility]11-14-2024 15:19-0285TiE6% (BldA) [Mass fraction]96 %[facility]11-14-2024 15:19-0500 Systolic blood qajttvje188 mm[Hg][facility]08-26-2024 11:10-0400Body mass index (BMI) [Ratio]36.21 kg/b4Gxypombritany Bowers MD Work Phone: [facility] LouisLpicwjcngl14-64-4916 11:10-0400Body yrazvu51.1 kg Kofi Bowers MD Work Phone: [facility] LouisToqegcyszu18-10-3477 11:10-0400Diastolic blood ihhonzdb85 mm[Hg]Kofi Bowers MD Work Phone: [facility] LouisCbzckfnrwp23-81-8042 11:10-0400Heart rate70 /min Kofi Bowers MD Work Phone: [facility] LouisOsagzvibse70-23-4833 11:10-0400Respiratory rate16 /minDcollin Bowers MD Work Phone: [facility] LouisWvglhugiup52-94-0873 11:10-3199BeM7% (BldA) [Mass fraction]93 %Kofi Bowers MD Work Phone: [facility] LouisMsueoyrxgx54-29-1063 11:10-0400Systolic blood ccdoajyw460 mm[Hg]Kofi Bowers MD Work Phone: noSokikomMqttyzccin09-56-7517 13:00-0500Body bsumok424.94 cmAbdullahi Acosta Other [employer] Other 11-13-2023 13:00-0500Body mass index (BMI) [Ratio]35.9 kg/l2DubnbAbdullahi Acosta Other [employer] Other 11-13-2023 13:00-0500Body ffsfqa46.18 kgAbdullahi Acosta Other [employer] Other 11-13-2023 13:00-0500Diastolic blood gzxzeoag06 mm[Hg] Abdullahi Acosta Other [employer] Other 11-13-2023 13:00-5836ZkZ1% (BldA) [Mass fraction]97 % Abdullahi Acosta Other [employer] Other 11-13-2023 13:00-0500Systolic blood txincxce081 mm[Hg] Abdullahi Acosta Other [employer] Other 11-14-2022 14:00-0500Body zdsgok939.94 cmAbdullahi Acosta Other [employer] Other 11-14-2022 14:00-0500Body mass index (BMI) [Ratio] 37.22 kg/q7GvgndAbdullahi Acosta Other [employer] Other 11-14-2022 14:00-0500Body tepsbrhnbpb46.8 [degF]Abdullahi Cernaban Other [employer] Other 11-14-2022 14:00-0500Body gahdtm08.36 kgAbdullahi Acosta Other [employer] Other 11-14-2022 14:00-0500Diastolic blood faltbwec91 mm[Hg] Abdullahi Acosta Other [employer] Other 11-14-2022 14:00-0670McL4% (BldA) [Mass fraction]97 % Abdullahi Acosta Other [employer] Other 11-14-2022 14:00-0500Systolic blood mm[Hg] Abdullahi Acosta Other [employer] Other 11-18-2021 14:00-0500Body uctyaj931.94 cmAndra Ching Other [employer] Other 11-18-2021 14:00-0500Body mass index (BMI) [Ratio] 35.33 kg/f2Adxekra Ching Other [employer] Other 11-18-2021 14:00-0500Body ijytepiucba54 [degF]Olamide Ching Other [employer] Other 11-18-2021 14:00-0500Body znfufz23.82 kgAndra Ching Other [employer] Other 11-18-2021 14:00-0500Diastolic blood iyrvpltb61 mm[Hg] Olamidera Ching Other [employer] Other 11-18-2021 14:00-9328HuK8% (BldA) [Mass fraction]97 % Olamide Ching Other [facility] [employer] Other [id number] 14:00-0500Systolic blood pdqheljf452 mm[Hg] Olamide Ching Other [facility] [employer] Other Encounters Encounter DateEncounter TypeCare ProviderFacilityStart: 06-17-2025 End: 30-84-4870Khggts Marisela Bwoers MD Work Phone: [facility] [place] [facility] MedinceStart: 06-17-2025 End: 75-94-5460Xfsmgh Marisela Bowers MD Work Phone: NONM [place] [facility] MedinceStart: 06-17-2025 End: 31-98-2318Jnvkjz outpatient visit 15 minutesKofi Bowers MD Work Phone: [facility] [place] [facility] MedinceComment on above:Acute myofascial strain of lumbar region, subsequent encounter; Need for vaccinationStart: 06-17-2025 End: 01-86-3526qubcghrdtbRAVLXT B BERRYNot AvailableStart: 06-06-2025 End: 09-99-2390Siwicq flowsAnthony Bowers MD Work Phone: [facility] [place] [facility] MedinceStart: 06-06-2025 End: 07-55-9604Usjqhfanisha Bowers MD Work Phone: [facility] [place] [facility] MedinceStart: 06-06-2025 End: 17-34-4844Xsyldx outpatient visit 25 minutesKofi Bowers MD Work Phone: [facility] [place] [facility] MedinceComment on above:Acute myofascial strain of lumbar region, initial encounter (Primary Dx)Start: 06-06-2025 End: 95-48-3048tqqwfgqswfPSZYEK B BERRYNot AvailableStart: 05-13-2025 End: 51-81-0196Algdmexwz encounterKofi Bowers MD Work Phone: [facility] [place] [facility] MedinceStart: 04-29-2025 End: 50-63-8448XdtonxFbfeex B Berry MD Work Phone: [facility] [place] [facility] MedinceComment on above: Hypothyroidism, unspecified type ; Failed back syndromeStart: 04-22-2025 End: 58-51-7990Kexbckkwr encounterKofi Bowers MD Work Phone: [facility] [place] [facility] MedinceStart: 04-17-2025 End: 64-05-4367Btyrbc flowsheetKofi Bowers MD Work Phone: [facility] [place] [facility] MedinceStart: 04-17-2025 End: 37-31-7017Frpadq flowsAnthony Bowers MD Work Phone: [facility] [place] [facility] MedinceStart: 04-17-2025 End: 57-34-5627Suzmjinpz encounterKofi Bowers MD Work Phone: [facility] [place] [facility] MedinceStart: 04-17-2025 End: 71-21-9321Lritz of hemosiderin, Saumya Bowers MD Work Phone: NOSQ HealthcareStart: 04-17-2025 End: 63-79-7885Juwewja encounter procedureKofi Bowers MD Work Phone: [facility] [place] [facility] MedinceComment on above:Routine general medical examination at health care facility (Primary Dx); ACP (advance care planning); Diabetes mellitus type 2 with neurological manifestations (HCC)Start: 04-17-2025 End: 60-13-7379tclwekawnpMYBDOS B BERRYNot AvailableStart: 04-04-2025 End: 62-27-1956LxabfmCkklnd B Berry MD Work Phone: [facility] [place] [facility] MedicineComment on above:Failed back syndromeStart: 03-07-2025 End: 58-92-7408vfucsoiujdHGAKOF B BERRYNot AvailableStart: 02-25-2025 End: 92-65-5714qewsdungroKepfhksEstrella Maya MDFacility:[facility] Start: 02-11-2025 End: 62-64-4051Klxctq outpatient visit 15 minutesKofi Bowers MD Work Phone: [facility] CI FMComment on above:Nausea (Primary Dx); Type 2 diabetes mellitus with hyperglycemia, without long-term current use of insulin (HCC)Start: 02-11-2025 End: 85-82-8137jkpzjinxqiGWHLDZ B BERRYNot AvailableStart: 02-11-2025 End: 49-05-1697Ojjxrr Marisela Bowers MD Work Phone: [facility] FMStart: 02-11-2025 End: 74-87-1367Fjldgl Marisela Bowers MD Work Phone: [facility] FMStart: 02-08-2025 End: 96-43-3944Hcclpk Marisela Bowers MD Work Phone: [facility] FMStart: 02-08-2025 End: 82-60-8849Fbsrjn Marisela Bowers MD Work Phone: [facility] FMStart: 02-08-2025 End: 35-92-3782Ombzew outpatient visit 15 minutesKofi Bowers MD Work Phone: [facility] CI FMComment on above:Nausea (Primary Dx)Start: 02-08-2025 End: 80-55-1950nwqudrzbzxKSRDAJ B BERRYNot AvailableStart: 02-04-2025 End: 84-46-8382kkcqahaokjJzhivimStacey Maya MDFacility:[facility] Start: 01-24-2025 End: 72-39-6759Yoesydeeq Result EncounterGeneric External Data ProviderNOMS External Department UnsolicitedStart: 01-24-2025 End: 38-07-0555Dxznuhxfm Result EncounterGeneric External Data ProviderNOMS External Department UnsolicitedStart: 01-14-2025 End: 95-99-4799Egdkcy Fernando Goode PA Work Phone: [facility] CI FMStart: 01-14-2025 End: 89-55-3786Fhrmmm Fernando Goode PA Work Phone: [facility] CI FMStart: 01-14-2025 End: 74-84-4377Thdjvk outpatient visit 15 minutesSkye Goode PA Work Phone: [facility] CI FMComment on above:Lumbar paraspinal muscle spasm (Primary Dx); Type 2 diabetes mellitus with hyperglycemia, without long-term current use of insulin (CMS/HCC)Start: 01-14-2025 End: 15-22-8794zwtkojjxvzVRPCM M HEMMERNot AvailableStart: 12-03-2024 End: 45-83-8343EslqdsFrmzic B Berry MD Work Phone: [facility] CI FMComment on above:Failed back syndromeStart: 10-03-2024 End: 99-52-6021FcjyghJprbft B Berry MD Work Phone: [facility] CI FMComment on above:Failed back syndromeStart: 09-10-2024 End: 03-87-3553oxcukvvwraJqpqvve Vytautas Gilaurie BUENOFacility:PM [facility] Start: 09-03-2024 End: 58-66-0851PnmoptGcylgq B Berry MD Work Phone: [facility] CI FMComment on above:Failed back syndromeStart: 08-28-2024 End: 07-36-2295Sfteaf Fernando Goode PA Work Phone: [facility] CI FMStart: 08-28-2024 End: 32-93-8212Ticpqc Fernando Goode PA Work Phone: [facility] CI FMStart: 08-28-2024 End: 77-19-6320Tvvatm outpatient visit 25 minutesSkye Goode PA Work Phone: [facility] CI FMComment on above: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) (Primary Dx); Benign essential hypertension (CMS/HCC); Morbid (severe) obesity due to excess calories (CMS/HCC); Body mass index (BMI) 35.0-35.9, adultStart: 08-28-2024 End: 83-59-7213ifaeqemwkcNQPDO Julia GOODEHeidi AvailableStart: 08-20-2024 End: 66-45-5819dxbxsmjsxqEjpwyil Vytautas Giedraitis MDFacility:[facility] [place] Start: 08-13-2024 End: 18-45-8061pezspodzmoUrvirdw Vytautas Giedraitis MDFacility:[facility] Start: 08-02-2024 End: 10-09-2053CajsmcXyvfwt B Berry MD Work Phone: noMS CI FMComment on above:Failed back syndromeStart: 07-30-2024 End: 70-70-4010wkjwtdryggZijcgki Vytautas Giedraitis MDFacility:[facility] Start: 07-23-2024 End: 87-68-4008qjwcmottrmOzvvmpx Vytautas Giedraitis MDFacility:[facility] Start: 07-18-2024 End: 78-12-6806Giwflttpd Result EncounterGeneric External Data ProviderNOMS External Department UnsolicitedStart: 07-18-2024 End: 97-78-2839Zbewzlxku Result EncounterGeneric External Data ProviderNOMS External Department UnsolicitedStart: 07-02-2024 End: 08-30-2675BbgnbdYgxsuo B Berry MD Work Phone: [facility] CI FMComment on above:Failed back syndrome; Hypothyroidism, unspecified type (CMS/HCC)Start: 06-29-2024 End: 17-87-5020tdzizrgmhkEfjgtuhoxSt. Rita's Hospital Work Phone: Start: 06-29-2024 End: 33-08-2887Wtlohiw encounter [facility]Will[facility] Work Phone: Start: 06-04-2024 End: 18-48-7029IqqjxnTbexwu B Berry MD Work Phone: [facility] CI FMComment on above:Failed back syndromeStart: 05-25-2024 End: 52-17-6027Qajvuhjzd Result EncounterGeneric External Data ProviderNOMS External Department UnsolicitedStart: 05-25-2024 End: 97-30-9223Smlxwweth Result EncounterGeneric External Data ProviderNOMS External Department UnsolicitedStart: 05-11-2024 End: 05-81-5194Yakyhexkh Result EncounterGeneric External Data ProviderNOMS External Department UnsolicitedStart: 05-11-2024 End: 26-05-0156Uvqxfkhqg Result EncounterGeneric External Data ProviderNOMS External Department UnsolicitedStart: 05-07-2024 End: 28-90-4630HhqqdzQqvbuy B Berry MD Work Phone: [facility] CI FMComment on above:Failed back syndromeStart: 04-09-2024 End: 76-71-4374Fxvngj flowsAnthony Bowers MD Work Phone: [facility] FMStart: 04-09-2024 End: 59-82-4074Tnwbmc flowsAnthony Bowers MD Work Phone: [facility] CI FMStart: 04-09-2024 End: 76-97-3386Ubjkk of hemosiderin, quantKofi Bowers MD Work Phone: [facility] Work Phone: Start: 04-09-2024 End: 80-90-5609Bfbrccu encounter procedureKofi Bowers MD Work Phone: [facility] [...] Iliopsoas bursitis of right hipStart: 04-04-2024 End: 10-24-9718ZpwhrwBkhafo B Berry MD Work Phone: noms CI FMComment on above:Failed back syndromeStart: 03-18-2024 End: 13-28-2193Dxdoffgsl department patient visitDABRITANY Hubbard KAYLEYMercy Health St. Anne Hospitaltart: 95-32-6655KoqvhiTuaxjj B Berry MD Work Phone: noms CI FMComment on above:Failed back syndromeStart: 06-27-2023 End: 57-12-3887cqgvprwblhJeywb ChabanFacility:[facility] Start: 59-50-5961Qlczgw outpatient visit [facility] OutPtStart: 06-27-2023 End: 30-12-9726jughuhdfiuAA Kofi Bowers Work Phone: [facility] Work Phone: Start: 06-27-2023 End: 47-93-7226Djqfhai encounter procedureII Kofi Bowers Work Phone: [facility] Work Phone: Start: 75-72-2287szvconceduSDPIMFJJILPO JAREDSHMIPATHCharmaine . Facility:I6Gnkxz: 01-03-2023 End: 50-23-5118crxzskhzhoHIUSVMS [facility] Healthcaretart: 10-14-2022 End: 83-49-9910ainyszugmtNY SERENITY GARCIA .Facility:V8Twaqx: 09-28-2022 End: 42-40-7980xmflulkqjwAYVLGNDOMount Carmel Health System Start: 09-07-2022 End: 01-84-4828eiwjnloijrLE DOCTOR MISCFacility:Y7Oobfg: 08-31-2022 End: 17-14-6723vnivcdlcuyNANSHGMZMount Carmel Health System Start: 08-23-2022 End: 82-91-9070cmyvyjsyxiLF SAMER KHOURIFacility:L5Bcrmp: 07-14-2022 End: 05-10-7815kzfuwzzhhiYQQE ZIMMER .Facility:R7Owdje: 99-89-0198Obppnq outpatient visit 15 [facility] SouthStart: 06-28-2022 End: 38-93-2593jgrijswwptNG Kofi Bowers Work Phone: [facility] Work Phone: Start: 06-28-2022 End: 41-28-5258Ebhhhlp encounter procedureII Kofi Bowers Work Phone: [facility]-Sleep LabStart: 06-01-2022 End: 52-52-1014rtshuafnujPVOPIZS BOESUniOhioHealth Dublin Methodist Hospitaltart: 05-18-2022 End: 85-13-8703mlnxrxckpaCVAISPD BOESFacility:T0Ismvl: 05-05-2022 End: 25-24-9238cpxjenhsojLGOALEH BOESFacility:I7Giimd: 04-28-2022 End: 89-54-9725hnhhysunczKJQELSB BOESUniversMary Rutan Hospitaltart: 04-08-2022 End: 33-11-7538fnnlposuljQQ SERENITY S GARCIA .Facility:Q6Xzkqa: 02-10-2022 End: 93-14-1850xmojuzrctzYW SERENITY S GARCIA .Facility:Q4Bupoz: 01-26-2022 End: 91-03-9403nvmdedxdrdRX SERENITY S GARCIA .Facility:Z3Dwrcs: 01-06-2022 End: 78-99-3024eumkwqcasjZV JOE MUKHERJEEFacility:B2Ssqvi: 01-04-2022 End: 43-21-3007fpdbxkpxacXH KOFI BOWERSFacility:T9Llbwe: 47-63-9991syyjntrzqi MOHGALINAD KAPILHOTHANIFacility:M1Odbey: 11-30-2021 End: 37-09-5345camoamoxdcIJ KOFI KAYLEYFacility:Y0Dckwo: 91-26-9176igazvjcmxz BETZAIDA ZIMMER .Facility:V6Ydljf: 11-03-2021 End: 54-94-9791ihrvgryucdJMUZSOC ALGHOTHANIFacility:I4Trrds: 10-30-2021 End: 63-28-5716ghfeyxpvqmIF DANIEL BERRYFacility:M2Mibcn: 07-02-2021 End: 86-93-1669eaynzjvbhjDemuo Kurtz Other [facility] [employer] Other Start: 97-00-8423Pffkax outpatient visit 15 minutes Olamidera [facility]ingReg[facility] Procedures DateProcedureProcedure DetailPerforming ClinicianStart: 92-85-3115Motwtxavldspr metabolic panelKofi Bowers MD Work Phone: Start: 48-19-8678Vdslj panelKofi Bowers MD Work Phone: Start: 65-87-6728Xfpel albumin quantitativeKofi Bowers MD Work Phone: Start: 89-68-8570Grhwnopdzk glycosylated u7iXplkuaKofi Bowers MD Work Phone: Start: 93-40-7638Cdczt spine thoracic 2 viewsGeneric External Data ProviderStart: 59-72-5578Bxpmpbyrfk glycosylated q2hTyugwSkye Goode PA Work Phone: Start: 95-65-5713Sxqndropuc glycosylated d1yHufjzSkye Goode PA Work Phone: Start: 89-94-0723OOX BASIC METABOLIC PANELGeneric External Data ProviderStart: 37-11-1771IIR 12-LEADGeneric External Data Provider Start: 67-81-4597Wb thoracic spine w/o contrast materialGeneric External Data ProviderStart: 13-17-8251Clecp spine thoracic 2 viewsGeneric External Data ProviderStart: 09-28-7316QT LUMBAR SPINE MIN 4VGeneric External Data Provider Start: 08-33-0039Yvyzzv img dx retinl dis w/narciso & report uni/bDcollin Bowers MD Work Phone: Start: 25-36-2580Pqgrxpdlab glycosylated b3hIfsurbKofi Bowers MD Work Phone: Plan of Treatment DateCare ActivityDetailAuthorStart: 39-22-6841Uvmungah screeningDiabetes: Retinopathy ScreeningNOMS HealthcareStart: 41-08-1574Ofbpe screening for protein Diabetes: Urine Protein ScreeningNOMS HealthcareStart: 09-03-2026Medicare Annual Wellness (AWV)Medicare Annual Wellness (AWV)NOMS HealthcareStart: 12-12-2025 End: 85-67-3509Qshnacb encounter gqvduvkqd34/30/2026 11:30 AM EDT Office Visit [facility] [place] [facility] [address] [facility] [address] [place] [address] Kofi Bowers MD [address] [facility] [address] [place] [address] NOMBrooklyn Rowe MedinceStart: 07-17-2025 Hemoglobin A1c measurementDiabetes: Hemoglobin K7TKKWE HealthcareStart: 06-17-2025 End: 95-46-0306Xmeylyr encounter procedureNOMS [place] Rowe MedinceComment on above:ArrivedStart: 48-75-8790Meatkykvcl A1c measurementDiabetes: Hemoglobin A1C NOMS HealthcareStart: 06-06-2025 End: 19-65-8183Nilnlcp encounter ovbjeucyf39/23/2025 9:00 AM EDT Office Visit [facility] [place] [facility] [address] [facility] [address] [place] [address] Kofi Bowers MD [address] [facility] [address] [place] [address] ArrivedNOMS [place] Rowe MedinceComment on above:ArrivedStart: 89-51-8839Virrktqu screeningDiabetes: Retinopathy ScreeningNOMS HealthcareStart: 04-17-2025 End: 89-96-8561Osnivva encounter procedureNOMS CI FMComment on above:Arrived Start: 49-82-4492Fesadoyxek A1c measurementDiabetes: Hemoglobin M0ZYVHT HealthcareStart: 28-06-9074LFYYG-19 Vaccine ()COVID-19 Vaccine ( season)[facility] HealthcareStart: 35-77-6112Fensnkddd vaccination Influenza Vaccine (#1)[facility] HealthcareStart: 08-26-2025Medicare Annual Wellness (AWV)Medicare Annual Wellness (AWV)[facility] HealthcareStart: 22-59-1293Mzxlu screening for proteinDiabetes: Urine Protein ScreeningNOMS HealthcareStart: 02-11-2025 End: 53-94-0069Nukytih encounter procedureNOMS CI FMComment on above:Arrived Start: 02-08-2025 End: 78-48-8026Nuaaihp encounter bzfjyihfe89/27/2025 11:15 AM EDT Office Visit [facility] [address] [facility] [address] [place] [address] Kofi Bowers MD [address] [facility] [address] [place] [address] ArrivedNOMS CI FMComment on above:ArrivedStart: 01-17-2025 Urine screening for proteinDiabetes: Urine Protein ScreeningNOSD Healthcare Start: 01-14-2025 End: 05-05-7746Evqinan encounter kbxnjusjw99/02/2025 1:00 PM EDT Office Visit [facility] [address] [facility] [address] [place] [address] Skye Goode PA [address] [facility] [address] [place] [address] ArrivedNOMS CI FMComment on above:ArrivedStart: 50-39-0234Djokubbchj A1c measurementDiabetes: Hemoglobin E1HZMWU Healthcare Start: 08-28-2024 End: 27-86-2059Fmwtasr encounter sfqfxinfb00/14/2025 1:00 PM EST Office Visit [facility] [address] [facility] [address] [place] [address] Skye Goode PA [address] [facility] [address] [place] [address] ArrivedNOMS CI FMComment on above:ArrivedStart: 08-13-2024 End: 00-10-9473Jjrzkzi encounter qlfoeiyim33/30/2024 1:15 PM EST Office Visit [facility] [address] [facility] [address] [place] [address] Kofi Bowers MD [address] [facility] [address] [place] [address] [facility] FMStart: 08-09-2024 End: 93-07-7618Yvtbyim encounter iqeevyvoi36/26/2024 1:15 PM EST Office Visit [facility] [address] [facility] [address] [place] [address] Kofi Bowers MD [address] [facility] [address] [place] [address] [facility] CI FMStart: 67-02-8906Isxqttaqxz A1c measurementDiabetes: Hemoglobin V5CNEQU HealthcareStart: 82-06-3387Wlmrronlm vaccinationInfluenza Vaccine (#1)[facility] HealthcareStart: 04-09-2024 End: 04-90-9206Occipshoennl/Creatinine panel in random UrineMicroalbumin / creatinine, urine ratio Lab Routine Type 2 diabetes mellitus without complication, without long-term current use of insulin ([facility]) Expected: 04/09/2024 (Approximate), Expires: 04/09/2025[facility] Work Phone: Comment on above:Expected: 04/09/2024 (Approximate), Expires: 04/09/2025Start: 04-09-2024 End: 38-59-4121Ikpupqi encounter procedureNOSTROUD REGION[facility] – [place] FMComment on above:Arrived Start: 13-88-6218Rvpzgrwqjk A1c measurementDiabetes: Hemoglobin [id number] HealthcareStart: 05-22-2024Medicare Annual Wellness (AWV)Medicare Annual Wellness (AWV)[facility] HealthcareStart: 89-53-6121Xtfcj screening for protein Diabetes: Urine Protein ScreeningNOSD HealthcareStart: 10-27-2023 End: 51-92-1792Hriansp encounter vxipzeyvw77/14/2024 2:45 PM EDT Office Visit [facility] [address] [facility] [address] [place] [id number] Kofi Bowers MD [address] [place] [address] [address] [place] [address] [facility] FMStart: 98-09-7844Skonxlssay A1c measurementDiabetes: Hemoglobin [id number] HealthcareStart: 85-10-4402Hxenufmj screeningDiabetes: Retinopathy ScreeningNOSD HealthcareStart: 96-36-4503UUcU/Tdap/Td Vaccines (2 - Tdap)DTaP/Tdap/Td Vaccines (2 - Tdap)[facility] HealthcareStart: 05-15-2014 Pneumococcal Vaccine: 65+ Years (2 of 2 - PCV)Pneumococcal Vaccine: 65+ Years (2 of 2 - PCV)[facility] Healthcare Immunizations Immunization DateImmunizationNotesCare UlgsdtrqCnjdmais34-38-4517wpaxszokr, high dose seasonal, preservative-Rosendo Bowers MD Work Phone: [facility] LouisQazickulns70-79-5157hswbhy vaccine recombinant Kofi Bowers MD Work Phone: [facility] LouisOkarcnjqzo66-45-4227utgpjn vaccine recombinant Skye FARIAS Work Phone: [facility] LouisVtwzahwtfb21-53-8643KDJPOWD - Respiratory syncytial virus (RSV), vaccine, bivalent, protein subunit RSV prefusion F, dil uent reconstituted, 0.5 mL, PFSkye FARIAS Work Phone: [facility] SystemVfeozoakxp33-24-8397fbsibkjht, high dose seasonal, preservative-freeSkye FARIAS Work Phone: [facility] LouisVgyakfblsf56-53-7143qhzzykfko virus vaccine, unspecified formulationKofi Bowers MD Work Phone: [facility] LouisVuglakfahr92-24-0398Xyxxyufwq, High-dose Seasonal, Quadrivalent, Preservative Rosendo Bowers MD Work Phone: [facility] LouisRbwavxlwjh65-68-9545fxvwfgpwn virus vaccine, unspecified formulationKofi Bowers MD Work Phone: [facility] SystemKzeqrouvwt20-80-2284Pspafwkjs, injectable, Madin Berclair Canine Kidney, preservative free, quadrivalentKofi Bowers MD Work Phone: [facility] LouisHbfkmejpha48-82-0226zigmiiiwj, high dose seasonal, preservative-Rosendo Bowers MD Work Phone: [phone] StoryMercy Hospital St. LouisAnrqdtbgfp89-58-8257Knmsnxvx, trivalent, recombinant, injectable influenza vaccine, preservative Rosendo Bowers MD Work Phone: [facility] LouisVihwrpjxra81-43-8954qlbxyrmsw, injectable, quadrivalent, preservative Rosendo Bowers MD Work Phone: [phone] StoryMercy Hospital St. LouisQbiimktkpm32-98-7604xvaeebfgx, injectable, quadrivalent, preservative Rosendo Bowers MD Work Phone: [phone] [place], [place] [address]Vdlssezzay75-64-5142hpfcwdiap, injectable, quadrivalent, preservative Rosendo Bowers MD Work Phone: [phone] [place], [place] [address]Llhnsaihhk68-85-4603sragboy and diphtheria toxoids, adsorbed, preservative free, for adult use (5 Lf of tetanus toxoid and 2 Lf of diphtheria toxoid)Kofi Bowers MD Work Phone: [facility] LouisAlbgzlkghl48-24-5611uymqzxhylurm polysaccharide vaccine, 23 valentKofi Bowers MD Work Phone: [facility] Payers DatePayer CategoryPayerPolicy [id number] [id number] 2023Medicare (Managed Care) [id number] [id number] [id number] [id number] [id number] 1960Private Health [id number]-vqy [id number]-[id number] 2.16.840.1.354587.3.57[id number] 2.16.840.1.521865.3.57[id number] 2.16.840.1.313714.3.579.[id number] 2.16.840.1.751536.3.579.[id number] 2.16.840.1.173465.3.579.2.81835-50-4796Gmqvfpe7661302 2.16.840.1.234113.3.579.[id number] 2.16.840.1.272340.3.579.2.68398-27-9581Ntcefho3461272 2.16.840.1.754414.3.579.2.21685-22-8980Wzymhqv7579758 2.16.840.1.214416.3.579.[id number] 2.16.840.1.953348.3.579.2.51728-68-6757Pqbrcay0073985 2.16.840.1.050086.3.579.2.93615-44-0952Zhenzzs4463045 2.16.840.1.428859.3.579.2.35894-50-2765Kkyjndg1465518 2.16.840.1.916578.3.579.2.16022-95-5235Pjhuhii8495854 2.16.840.1.134972.3.579.2.22660-57-4394Fuprukr2066407 2.16.840.1.393598.3.579.2.40306-38-6571Jvvqsan0472766 2.16.840.1.698985.3.579.[id number] 2.16840.1.254201.3.579.2.71163-19-9406Iymtkig9415636 2.16840.1.065343.3.579.2.75137-04-0024Siznkys14526949 2..1.049724.3.579.2.075165-56-1836Zrdxtsb207003332 2.0.1.226890.3.579.2.60683-22-3108Pbfbzak550405105 2..1.079820.3.579.2.47032-34-0294Cudjftb156297829 2..1.179565.3.579.2.22485-66-1823Oozjosa917977102 2..1.206873.3.579.2.17232-82-5934Wuagnsi598097613 2.0.1.161971.3.579.2.19809-78-7221Fvmxcgf654154022 2.0.1.278282.3.579.2.73676-34-9088Nftjxir931396954 2.0.1.419250.3.579.2.59297-79-6528Fiahmle38656434 2.840.1.802103.3.579.2.816356-44-3178Hmhoqkr63030194 2.840.1.720631.3.579.2.156536-83-7684Nwpryyl48370352 2..0.1.171506.3.579.2.891045-44-9783Drcggxj88679223 2.16.0.1.224659.3.579.2.778305-47-0345Bfifqsw54688416 2.16.840.1.333884.3.579.2.378241-01-6591Rsonefa27235354 2..0.1.982827.3.579.2.927160-93-5509Vptbtmu6783087 2.0.1.461972.3.579.2.952854-55-0504Rfjmeke1158443 2.160.1.679838.3.57[id number] /[id number] nc65b948-7t65-4h49-9798-zi306t66t83uBegwzlk94274045 2.0.1.534058.3.579.2.531 Social History DateTypeDetailFacilityUnknown if ever smokedMilwaukee [employer] Other Start: 06-15-2018 End: 96-27-0622Kcjzyid smoking status NHISEx-smoker (finding)[facility] Hospitaltart: 08-64-1078Hxo [facility] At [facility]: 07-20-2023 End: 26-45-9425Gnq Assigned At [facility] [employer] Other End: 38-46-9399Puzbiag of tobacco useCurrent smokerN[facility] End: 20-13-8729Bjccfuu of tobacco useCigarette SmokerNOMS HealthcareStart: 03-11-2023 End: 58-11-2802Ofcakwi use and exposureSmokeless tobacco non-userS[facility] Healthcare Start: 07-20-2023 End: 00-31-7241Sttukpy intakeEx-drinker (finding)[facility] HealthcareStart: 07-20-2023 End: 24-02-7169Zigbdfz of Social functionSALT LAKE REGIONAL MEDICAL CENTER HealthcareStart: 64-81-7289Dtcllhh CommentCaffeine: 1-2 cups per day; none soda/popNOMS HealthcareStart: 39-48-7069Aro Assigned At BirthNot on fileNOSD HealthcareStart: 98-65-0893Pzu Female (finding)[facility] Hospitaltart: 78-31-0456RraTwcsprWHTP Healthcare Medical Equipment Procedure CodeEquipment CodeEquipment Original TextEquipment IdentifierDates1 each by In Vitro route [id number]: each [id number]: 62-75-7640Kpsdjd 1 each under the skin [id number]: 03-26-2025 Functional Status MtzyYsuskopyovLzoxttLfggocxv06-14-2994Cfnsujf Health Questionnaire 2 item (PHQ- 2) [Reported][facility] LouisNoziakjlac57-36-7221Oeezhgv Health Questionnaire 2 item (PHQ- 2) [Reported][facility] LouisHreulbypmv06-19-6856Ipyfcer Health Questionnaire 2 item (PHQ- 2) [Reported][facility] LouisFojgaflddi64-50-3386Jrkyqmy Health Questionnaire 2 item (PHQ- 2) [Reported][facility] LouisYvjrlrbuhg63-01-6896Tuzeipp Health Questionnaire 2 item (PHQ- 2) [Reported][facility] Clinical Notes 11-03-2021 to 06-17-2025 Note Date & OcrqMujgXelyqysm76-44-2697 History of Present illness Narrative* Kofi Bowers [...] the evening. cholecalciferol (Vitamin D-3) 1.25 MG (99972 UT) tablet Vitamin D3 5000IU empagliflozin (Jardiance) [...] two times daily. D.A.W. as Sigma or SiteMinder Brand ONLY for 90 days 200 tablet [...] mass index (BMI) of 40.0-44.9 in adult ([facility]) Bronchitis Bruise of breast Cataract Colon polyps COVID-19 03/2021 Deviated nasal septum Diabetes mellitus ([facility]) Encounter for diabetic foot exam ([facility]) Family history of colon cancer Brother Fracture Rt orbital fracture, LUCIUS elbow fracture - shipped to [facility] 07/31/15. GERD (gastroesophageal reflux disease) History of being hospitalized 07/2015 [facility] - Post fall -rt orbital fx, LUCIUS elbow fracture, facial contusion History of colon polyps Hyperlipidemia Hypertension Labyrinthitis Left cervical radiculopathy Low back pain Measles Morbid obesity ([facility]) Osteopenia Pneumonia Posterior vitreous detachment of both [...] - Flu vaccine, high dose seasonal, PF (WAW971) (Fluzone High Dose) Other orders - Follow Up In Family Medicine; Future Follow up with Dr. Kofi Bowers in 6 months (on 12/14/2025). documented in this encounterMercy Hospital St. LouisSggpxneqyg69-76-8100 History of Present illness Narrative* Kofi Bowers [...] the evening. cholecalciferol (Vitamin D-3) 1.25 MG (37170 UT) tablet Vitamin D3 5000IU empagliflozin (Jardiance) [...] two times daily. D.A.W. as Sigma or SiteMinder Brand ONLY for 90 days 200 tablet [...] mass index (BMI) of 40.0-44.9 in adult ([facility]) Bronchitis Bruise of breast Cataract Colon polyps COVID-19 03/2021 Deviated nasal septum Diabetes mellitus ([facility]) Encounter for diabetic foot exam ([facility]) Family history of colon cancer Brother Fracture Rt orbital fracture, LUCIUS elbow fracture - shipped to [facility] 07/31/15. GERD (gastroesophageal reflux disease) History of being hospitalized 07/2015 [facility] - Post fall -rt orbital fx, LUCIUS elbow fracture, facial contusion History of colon polyps Hyperlipidemia Hypertension Labyrinthitis Left cervical radiculopathy Low back pain Measles Morbid obesity ([facility]) Osteopenia Pneumonia Posterior vitreous detachment of both [...] or fail to improve. documented in this encounterMercy Hospital St. LouisEozaxxccqs51-34-4942 Telephone encounter Note* Telephone Encounter - MAREK CORONEL - 05/13/2025 3:48 PM EDT Spoke with patient and she is NOT taking Metformin, but she is taking Farxiga. [facility] Tklgjlhqxn47-51-3882 Miscellaneous Notes* Telephone Encounter - MAREK CORONEL [...] savedup of this medication documented in this encounterNOLake Regional Health SystemSxethowado95-04-8350 Telephone encounter Note* Telephone Encounter - MAREK CORONEL - 05/13/2025 2:29 PM EDT Spoke with patient and she was told to go off the Trulicity and metformin. I did see at her 03/07/25visit the Metformin was stopped but not the Trulicity. Please advise. Her BS are running from 120 to 160 [facility] Vjvczfawnb84-58-6630 Telephone encounter Note* Telephone Encounter - Chelle [...] 4 months supply savedup of this medication [facility] LouisLgfpvkdzwf13-69-0738 Telephone encounter Note* Telephone Encounter - Charlette [...] Tramadol could not be filled til tomorrow. [facility] LouisMoaobhhogj80-47-7946 Miscellaneous Notes* Telephone Encounter - Charletteronald Chirinos [...] EDT [facility] [place] documented in this encounterMercy Hospital St. LouisOkkypxsuek58-06-9605 Telephone encounter Note* Telephone Encounter - Lilly Granda LPN - 04/29/2025 10:12 AM EDT Can you advise if pt is supposed to be on this medication you stopped it a couple months ago [facility] LouisQcgmrbodwk06-28-1059 Telephone encounter Note* Telephone Encounter - Chelle Guallpa - 04/29/2025 10:07 AM EDT Metformin sent to [facility] [place] [facility] LouisYuhazncsmw73-85-9478 Telephone encounter Note* Telephone Encounter - MAREK CORONEL - 04/23/2025 4:13 PM EDT Farxiga was sent to [facility], patient notified [facility] LouisNsewvicyyr00-57-8196 Miscellaneous Notes* Telephone Encounter - MAREK CORONEL - 04/23/2025 4:13 PM EDT Farxiga was sent to [facility], patient notified * Telephone Encounter - MAREK CORONEL - 04/22/2025 11:54 AM EDT Metformin was fill In February. With 9 refills * Telephone Encounter - Chelle Guallpa - 04/22/2025 11:23 AM EDT [facility] was denied by ins pt wondered what the next steps would be. documented in this encounterMercy Hospital St. LouisJqtnvzaybx98-46-6168 Telephone encounter Note* Telephone Encounter - MAREK CORONEL - 04/22/2025 11:54 AM EDT Metformin was fill In February. With [address] LouisCeledlioeh83-99-3057 Telephone encounter Note* Telephone Encounter - Chelle Guallpa - 04/22/2025 11:23 AM EDT [facility] was denied by ins pt wondered what the next steps would be. [facility] LouisVaawiprkrp27-66-1884 Telephone encounter Note* Telephone Encounter - DINORA Lopez - 04/17/2025 4:25 PM EDT Lantus sent. [facility] LouisXfbvmlcuxp55-29-3417 Miscellaneous Notes* Telephone Encounter - DINORA Lopez - 04/17/2025 4:25 PM EDT Lantus sent. * Telephone Encounter - MAREK CORONEL - 04/17/2025 2:15 PM EDT [facility] [place] called ans states that they no longer get the levemir injections do to it being discontinued. They have been changing to Lantus. Please send in a new RX. documented in this encounterMercy Hospital St. LouisZnauimfwoa07-18-6249 Telephone encounter Note* Telephone Encounter - MAREK CORONEL - 04/17/2025 2:15 PM EDT [facility] called ans states that they no longer get the levemir injections do to it being discontinued. They have been changing to Lantus. Please send in a new RX. [facility] LouisNinlxjpxzq09-30-5040 History of Present illness Narrative* Kofi Bowers [...] the evening. cholecalciferol (Vitamin D-3) 1.25 MG (72974 UT) tablet Vitamin D3 5000IU furosemide (Lasix) [...] two times daily. D.A.W. as Sigma or SiteMinder Brand ONLY for 90 days 200 tablet [...] Do you have a medical power of energy attorney?: Yes Objective : BP 134/74 Pulse 80 [...] LDL-C. Tien SS et al. ARON. 2013;310(19): 2579-5923 (http://education.[employer]/faq/VEQ996) CHOL/HDLC RATIO 04/19/2025 2.8 <5.0 (calc) Final [...] on April 17, 2025 documented in this encounterMercy Hospital St. LouisFqmvejayxf70-38-6305 Telephone encounter Note* Telephone Encounter - DINORA Lopez - 04/04/2025 10:14 AM EDT OARRS reviewed, Rx sent into patient's pharmacy. [facility] LouisDtiwrgqoxd49-61-7157 Miscellaneous Notes* Telephone Encounter - DINORA Lopez - 04/04/2025 10:14 AM EDT OARRS reviewed, Rx sent into patient's pharmacy. documented in this encounterMercy Hospital St. LouisUhlpddnscb08-02-7373 History of Present illness Narrative* Kofi Bowers [...] the evening. cholecalciferol (Vitamin D-3) 1.25 MG (81869 UT) tablet Vitamin D3 5000IU furosemide (Lasix) 40 MG tablet TAKE 1 TABLET BY MOUTH IN THE MORNING 30 tablet 11 insulin detemir (Levemir FlexTouch) 100 UNIT/ML pen INJECT 60 UNITS SUBCUTANEOUSLY EACH MORNING for25 liothyronine (Cytomel) 25 MCG tablet 0.5 tablet on an empty stomach Orally two times daily. D.A.W. as [employer] or Site[employer]inder Brand ONLY for 90 days 200 tablet [...] mass index (BMI) of 40.0-44.9 in adult ([facility]) Bronchitis Bruise of breast Cataract Colon polyps COVID-19 03/2021 Deviated nasal septum Diabetes mellitus ([facility]) Encounter for diabetic foot exam ([facility]) Family history of colon cancer Brother Fracture Rt orbital fracture, LUCIUS elbow fracture - shipped to [facility] 07/31/15. GERD (gastroesophageal reflux disease) History of being hospitalized 07/2015 [facility] - Post fall -rt orbital fx, LUCIUS elbow fracture, facial contusion History of colon polyps Hyperlipidemia Hypertension Labyrinthitis Left cervical radiculopathy Low back pain Measles Morbid obesity ([facility]) Osteopenia Pneumonia Posterior vitreous detachment of both [...] No follow-ups on file. documented in this encounterMercy Hospital St. LouisHiwhgvdsxy65-77-3047 History of Present illness Narrative* Kofi Bowers [...] the evening. cholecalciferol (Vitamin D-3) 1.25 MG (27022 UT) tablet Vitamin D3 5000IU furosemide (Lasix) 40 MG tablet TAKE 1 TABLET BY MOUTH IN THE MORNING 30 tablet 11 insulin detemir (Levemir FlexTouch) 100 UNIT/ML pen INJECT 60 UNITS SUBCUTANEOUSLY EACH MORNING for25 liothyronine (Cytomel) 25 MCG tablet 0.5 tablet on an empty stomach Orally two times daily. D.A.W. as [employer] or [employer] ONLY for 90 days 200 tablet [...] mass index (BMI) of 40.0-44.9 in adult ([facility]) Bronchitis Bruise of breast Cataract Colon polyps COVID-19 03/2021 Deviated nasal septum Diabetes mellitus ([facility]) Encounter for diabetic foot exam ([facility]) Family history of colon cancer Brother Fracture Rt orbital fracture, LUCIUS elbow fracture - shipped to [facility] 07/31/15. GERD (gastroesophageal reflux disease) History of being hospitalized 07/2015 [facility] - Post fall -rt orbital fx, LUCIUS elbow fracture, facial contusion History of colon polyps Hyperlipidemia Hypertension Labyrinthitis Left cervical radiculopathy Low back pain Measles Morbid obesity ([facility]) Osteopenia Pneumonia Posterior vitreous detachment of both [...] 4 days (around 02/12/2025). documented in this encounterMercy Hospital St. LouisDwvktdjpzo82-05-7710 History of Present illness Narrative* DINORA Lopez [...] the evening. cholecalciferol (Vitamin D-3) 1.25 MG (22530 UT) tablet Vitamin D3 5000IU furosemide (Lasix) 40 MG tablet TAKE 1 TABLET BY MOUTH IN THE MORNING 30 tablet 11 insulin detemir (Levemir FlexTouch) 100 UNIT/ML pen INJECT 60 UNITS SUBCUTANEOUSLY EACH MORNING for25 liothyronine (Cytomel) 25 MCG tablet 0.5 tablet on an empty stomach Orally two times daily. D.A.W. as Sigma or SiteMinder Brand ONLY for 90 days 200 tablet [...] mass index (BMI) of 40.0-44.9 in adult ([facility]) Bronchitis Bruise of breast Cataract Colon polyps COVID-19 03/2021 Deviated nasal septum Diabetes mellitus ([facility]) Encounter for diabetic foot exam ([facility]) Family history of colon cancer Brother Fracture Rt orbital fracture, LUCIUS elbow fracture - shipped to [facility] 07/31/15. GERD (gastroesophageal reflux disease) History of being hospitalized 07/2015 [facility] - Post fall -rt orbital [...] hyperglycemia, without long-term current use of insulin ([facility]) - POCT Glycated hemoglobin, total Advised pt that her HgbA1c remains well controlled at 6.4. Will continue to monitor. Follow up in about 3 months (around 04/10/2025) for Medicare Wellness Visit. documented in this encounterMercy Hospital St. LouisUccnxkkekc52-82-6396 Telephone encounter Note* Telephone Encounter - Chelle Guallpa - 12/03/2024 1:46 PM EDT traMADol (Ultram) 50 MG tablet [facility]dm [facility] [place] [facility] LouisQjtfejvxna20-90-7143 Miscellaneous Notes* Telephone Encounter - Chelle Guallpa - 12/03/2024 1:46 PM EDT traMADol (Ultram) 50 MG tablet [facility] in [place] documented in this encounterMercy Hospital St. LouisMglyloxxkp14-20-8707 Telephone encounter Note* Telephone Encounter - DINORA Lopez - 10/03/2024 1:36 PM EST OARRS reviewed, Rx sent into patient's pharmacy. [facility] Abckcksczq59-81-8962 Miscellaneous Notes* Telephone Encounter - DINORA Lopez - 10/03/2024 1:36 PM EST OARRS reviewed, Rx sent into patient's pharmacy. * Telephone Encounter - Chelle Guallpa - 10/03/2024 11:19 AM EST traMADol (Ultram) [facility] [place] She is calling a day early [facility] fill [facility]. documented in this encounterMercy Hospital St. LouisPtwoahyxem87-65-3693 Telephone encounter Note* Telephone Encounter - Chelle Guallpa - 10/03/2024 11:19 AM EST traMADol (Ultram) 50 MG tablet [facility] [place] She is calling a day early because [facility] to fill it. [facility] Vkjodtkudi07-71-3721 Telephone encounter Note* Telephone Encounter - Benita Busch - 09/03/2024 11:44 AM EST traMADol (Ultram) 50 MG tablet to drug [facility]ah [facility] LouisMlkbuivzmz02-28-4202 Miscellaneous Notes* Telephone Encounter - Benita Busch - 09/03/2024 11:44 AM EST traMADol (Ultram) 50 MG tablet to drug sarah james documented in this encounterMercy Hospital St. LouisZjppgkfwla42-45-2248 History of Present illness Narrative* DINORA Lopez - 08/28/2024 1:00 PM EST Images from the original note were not included. HPI Insomnia Additional comments: Pt states she had a bone stimulator placement surgery on 08/13/24 at [facility] and she is actually sleeping [...] the evening. cholecalciferol (Vitamin D-3) 1.25 MG (78754 UT) tablet Vitamin D3 5000IU furosemide (Lasix) 40 MG tablet TAKE 1 TABLET (40 MG) BY MOUTH IN THE MORNING. 30 tablet 10 insulin detemir (Levemir FlexTouch) 100 UNIT/ML pen INJECT 60 UNITS SUBCUTANEOUSLY EACH MORNING for25 liothyronine (Cytomel) 25 MCG tablet 0.5 tablet on an empty stomach Orally two times daily. D.A.W. as [employer] or [employer] Brand ONLY for 90 days 200 tablet [...] mass index (BMI) of 40.0-44.9 in adult ([facility]) Bronchitis Bruise of breast Cataract Colon polyps COVID-19 03/2021 Deviated nasal septum Diabetes mellitus ([facility]) Encounter for diabetic foot exam ([facility]) Family history of colon cancer Brother Fracture Rt orbital fracture, LUCIUS elbow fracture - shipped to [facility] 07/31/15. GERD (gastroesophageal reflux disease) History of being hospitalized 07/2015 [facility] - Post fall -rt orbital [...] for Medicare Wellness Visit. documented in this [facility]12-19-2024 Telephone encounter Note* Telephone Encounter - Chelle Guallpa - 08/02/2024 10:31 AM EST traMADol (Ultram) [address] [facility] [place] [facility] LouisMujvjxubvi92-28-2274 Miscellaneous Notes* Telephone Encounter - Chelle Guallpa - 08/02/2024 10:31 AM EST traMADol (Ultram) [address] [place] documented in this [facility]11-18-2024 Telephone encounter Note* Telephone Encounter - Chelle Guallpa - 07/02/2024 9:45 AM EST traMADol (Ultram) 50 MG tablet liothyronine (Cytomel) 25 MCG tablet Ddm in [place] [facility] LouisJmekxrvadn04-65-0686 Miscellaneous Notes* Telephone Encounter - Chelle Guallpa - 07/02/2024 9:45 AM EST traMADol (Ultram) 50 MG tablet liothyronine (Cytomel) 25 MCG tablet Ddm in [place] documented in this encounterMercy Hospital St. LouisQyjnpauoof40-94-2407 Telephone encounter Note* Telephone Encounter - DINORA Lopez - 06/04/2024 4:27 PM EDT OARRS reviewed, Rx sent into patient's pharmacy. [facility] LouisKrxlpnrbez36-31-6594 Miscellaneous Notes* Telephone Encounter - DINORA Lopez - 06/04/2024 4:27 PM EDT OARRS reviewed, Rx sent into patient's pharmacy. * Telephone Encounter - Chelle Guallpa - 06/04/2024 3:51 PM EDT traMADol (Ultram) 50 MG tablet [facility]dm [place] documented in this encounterMercy Hospital St. LouisRfhxaecpcg04-88-3567 Telephone encounter Note* Telephone Encounter - Chelle Guallpa - 06/04/2024 3:51 PM EDT traMADol (Ultram) 50 MG tablet Ddm in jacob [facility] LouisPkteyvghtq40-02-8035 Telephone encounter Note* Telephone Encounter - Chelle Guallpa - 05/07/2024 1:39 PM EDT traMADol (Ultram) 50 MG tablet Ddm in jacob [facility] LouisBkbueucsrk69-22-9778 Miscellaneous Notes* Telephone Encounter - Chelle Guallpa - 05/07/2024 1:39 PM EDT traMADol (Ultram) 50 MG tablet Ddm in jacob documented in this encounterMercy Hospital St. LouisPcuuozvryv78-95-5189 History of Present illness Narrative* Kofi Bowers [...] same time. cholecalciferol (Vitamin D-3) 1.25 MG (64295 UT) tablet Vitamin D3 5000IU furosemide (Lasix) 40 MG tablet TAKE 1 TABLET (40 MG) BY MOUTH IN THE MORNING. 30 tablet 10 insulin detemir (Levemir FlexTouch) 100 UNIT/ML pen INJECT 60 UNITS SUBCUTANEOUSLY EACH MORNING for25 liothyronine (Cytomel) 25 MCG tablet 0.5 tablet on an empty stomach Orally two times daily. D.A.W. as Sigma or SiteMinder Brand ONLY for 90 days 200 tablet [...] Do you have a medical power of energy attorney?: Yes Who is your medical power of energy attorney?: her son Objective : BP 115/65 [...] a living will and durable power of energy attorney for healthcare. We discussed telling ortiz [...] complication, without long-term current use of insulin ([facility]) - POCT glycosylated hemoglobin (Hb A1C) docked device - Microalbumin / creatinine, urine ratio; Future Morbid (severe) obesity due to excess calories ([facility]) Essential (primary) hypertension ([facility]) Body mass index (BMI) 35.0-35.9, adult Peripheral [...] on April 09, 2024 documented in this encounterMercy Hospital St. LouisPhcxecllov50-77-0711 Telephone encounter Note* Telephone Encounter - DINORA Lopez - 04/04/2024 3:56 PM EDT OARRS reviewed, Rx sent into patient's pharmacy. [facility] LouisRayhjazeea07-71-6222 Miscellaneous Notes* Telephone Encounter - DINORA Lopez - 04/04/2024 3:56 PM EDT OARRS reviewed, Rx sent into patient's pharmacy. * Telephone Encounter - Chelle Guallpa - 04/04/2024 3:08 PM EDT traMADol (Ultram) 50 MG tablet DDM IN JACOB documented in this encounterMercy Hospital St. LouisWckcfohhfy24-80-7457 Telephone encounter Note* Telephone Encounter - Chelle Guallpa - 04/04/2024 3:08 PM EDT traMADol (Ultram) 50 MG tablet DDM IN JACOB [facility] LouisWrdnjutwaz29-91-3256 Telephone encounter Note* Telephone Encounter - DINORA Lopez - 09/29/2023 12:33 PM EST OARRS reviewed, Rx sent into patient's pharmacy. [facility] LouisGcivxyehwy84-37-3937 Miscellaneous Notes* Telephone Encounter - DINORA Lopez - 09/29/2023 12:33 PM EST OARRS reviewed, Rx sent into patient's pharmacy. documented in this encounterMercy Hospital St. LouisIqtpvmwijb62-67-4551 Evaluation note* Encounter Date Diagnosis Assessment Notes Treatment Notes Treatment Clinical Notes Jun, Obstructive sleep apnea (ICD-10 - G47.33) Jun,hronic insomnia (ICD-10 - F51.04) Banyan Other 05-22-2023 NotePatient is here today to discuss medication Review of Systems Musculoskeletal: Positive for arthritis and back pain. All other systems reviewed and are negative.[facility] 01-03-2023 NoteCardiovascular Medicine [facility] SUBJECTIVE Chief Complaint Patient presents with [...] BID. She will be driving down to [place] this weekend for her high school reunion. [...] Diagnosis Closed fracture of orbital floor (blow-out) ([facility]) Epiphora Fracture of orbit ([facility]) Fracture of radial neck Obesity Hypertensive disorder Pain in elbow MANOLO (obstructive sleep apnea) Diabetes ([facility]) Polyneuropathy Vitreous floaters of both eyes Venous hypertension of lower extremity Trigger thumb, left thumb Insomnia Osteopenia Peripheral venous insufficiency Non-seasonal allergic rhinitis Mixed hyperlipidemia nursing home current use of insulin ([facility]) Lipoprotein deficiency disorder History of fall History of colonic polyps GERD (gastroesophageal reflux disease) Family history of malignant neoplasm of gastrointestinal tract Failed back syndrome Ex-smoker ESS (euthyroid sick syndrome) Disability of walking Diabetic retinopathy associated with controlled type 2 diabetes mellitus ([facility]) Diabetic polyneuropathy associated with type 2 diabetes mellitus ([facility]) Type 2 diabetes mellitus with hyperglycemia ([facility]) Decreased estrogen level Continuous positive airway pressure [...] tablet, Take 1 (more content not included)... [facility]03-02-2023 NoteCONSULTATION CONSULTATION DATE: 10/14/2022 HISTORY: This is [...] unless otherwise indicated. Patient is in agreement.[facility] HospitalHidnsvyg54-33-4384 NoteCardiology Clinic Note Subjective Konrad Guzman is [...] BUN 13, creatinine 0.84, (more content not included)...[facility]02-14-2023 NotePatient here for 1 mo follow up hypertension and medication changes. She was started on hydrochlorothiazide and losartan was increased back up to 100mg daily. She had BMP on 09/07. Review of Systems Musculoskeletal: Positive for back pain. All other systems reviewed and are negative.[facility] 08-31-2022 NotebloUnMemorial Health System [facility]01-17-2023 NotePatient here for 3 mo follow [...] Systems All other systems reviewed and are negative.[facility] 08-31-2022 NoteCardiology Clinic Note Subjective Konrad Guzman [...] 119, BUN 13, creatinine (more content not included)...[facility] 07-14-2022 NoteCONSULTATION CONSULTATION DATE: 07/14/2022 HISTORY OF [...] in three months' time unless otherwise indicated.[facility] HospitalRxdgptme28-24-4063 Evaluation note* Encounter Date Diagnosis Assessment Notes Treatment Notes Treatment Clinical Notes Jun, Obstructive sleep apnea (ICD-10 - G47.33) Patient was encouraged to continue regular use of CPAP as before, discussed chronic insomnia associated with sleep apnea and treatment options today at length as well Jun,hronic insomnia (ICD-10 - F51.04)Treatment options, including amitriptyline, indications, benefits and potential side effects were all discussed today Banyan Other 10-18-2022 NoteContinue to wear cpapUnMemorial Health System [facility]10-18-2022 NoteContinue amlodipine 10 mg daily- she recently ran out of 10 mg and this morning took 5 mg tablet she had from previous script. Continue coreg 25 mg bid, lasix 40 mg daily, losartan 50 mg daily and hydralazine 50 mg po bid.[facility]10-18-2022 Note Subjective Konrad Guzman is a 77 [...] Lab Review: Assessment/Plan There were no encounter diagnoses.[facility]10-18-2022 NoteHPI: Konrad Guzman is a 77 y.o. [...] 3 months with repeat BMP for renal functionUnMemorial Health System [facility]09-26-2022 NoteI spoke with patient and informed her of medication changes per Veronica Gillespie CNP. RX sent to [facility] and BMP faxed to [facility]. Patient verbalized understanding. [facility]09-14-2022 NoteF/U with PCP for further managementUnMemorial Health [facility]09-14-2022 NoteHypertension remains uncontrolled, will add aldactone [...] BUN 15, CR 0.85 normal K+ 4.8 normalUnMemorial Health System [facility] Hospital09-14-2022 NoteAdded in error and don't know how to get rid of itUnMemorial [facility]08-25-2022 NoteCONSULTATION CONSULTATION DATE: 04/08/2022 HISTORY OF [...] in the office post procedure in May.[facility] HospitalKbodlsaz88-27-4428 NoteCONSULTATION CONSULTATION DATE: 02/10/2022 HISTORY OF PRESENT [...] plan of care and all questions answered. [facility] Signed and Approved by: BETZAIDA ZIMMER . 02/11/2022 13:38:00[facility]03-22-2022 NoteCONSULTATION PAIN MANAGEMENT CONSULTATION CHIEF COMPLAINT: [...] had three nerves released by Dr. Branch, public safety telecommunicator, in 2002. She states the pain has [...] would like to proceed. CC: Dr. Bowers [facility] Signed and Approved by: DR SERENITY GARCIA . 11/17/2021 11:24:00[facility] Centeraluation noteNort [employer] Other Evaluation noteNo assessment information available [facility] Work Phone: Evaluation note* Diagnosis Failed back syndrome Other unspecified back disorder documented in this encounter [facility] HealthcareEvaluation note* Diagnosis Failed back syndrome Other unspecified back disorder documented in this encounter [facility] HealthcareEvaluation note* Diagnosis Onset Date Resolution Status Admit Date Chronic insomnia acuteJune 29, 2024 11:30amOSA (obstructive sleep apnea)acuteJune 29, 2024 11:30am [facility] Work Phone: Evaluation note* Diagnosis Failed back syndrome Other unspecified back disorder Hypothyroidism, unspecified type (CMS/HCC) documented in this encounter [facility] HealthcareEvaluation note* Diagnosis Failed back syndrome Other unspecified back disorder [facility]* Diagnosis Routine general medical examination at health care facility- Primary Routine general medical examination at a health care facility ACP (advance care planning) Other specified counseling Type 2 diabetes mellitus without complication, without long-term current use of insulin (CMS/[facility]) Morbid (severe) obesity due to excess calories [...] Diabetes mellitus type 2 with neurological manifestations (CMS/[facility])- Primary Benign essential hypertension (CMS/HCC) Essential hypertension, benign Morbid (severe) obesity due to excess calories (CMS/[facility]) Body mass index (BMI) 35.0-35.9, adult documented [...] hyperglycemia, without long-term current use of insulin ([facility]) documented in this encounter [facility]Evaluation [facility]* Diagnosis Nausea- Primary Nausea alone documented in this encounter [facility]* Diagnosis Nausea- Primary Nausea alone Type 2 diabetes mellitus with hyperglycemia, without long-term current use of insulin ([facility]) documented in this encounter [facility]* Diagnosis Type 2 diabetes mellitus with hyperglycemia, with long-term current use of insulin ([facility])- Primary documented in this encounter [facility]* Diagnosis Diabetes mellitus type 2 with neurological manifestations (HCC) Type 2 diabetes mellitus with hyperglycemia, unspecified whether 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 ([facility]) documented in this encounter [facility] HealthcareEvaluation [facility]* [...] this encounter [facility] HealthcareHistory general Narrative - ReportedNortMoses Taylor Hospital Linkfluence Other History general Narrative - Reported* Type Description Date Medical History HTN Medical QjmfplsTE1Sqikopw HistoryOsteoporosisMedical HistoryNeuropathyMedical HistoryhyperlipedemiaMedical HistoryHot Flashes/SweatsMedical HistorycopdMedical HistoryOSA (obstructive sleep apnea)Surgical HistoryBack surgery x Surgical KwygttxLDU0557Sskogaqg Drdtsxkijpkwkpwicsrior9862Cfowyfow History medxekqodvn1750Nzyfyscp Historycataract surgerySurgical Historyeyes surgery Surgical Historyfacial cosmetic surgerySurgical HistoryHYSTERECTOMYSurgical HistorytonsillectomyHospitalization HistoryHeart Zkwlpa8701Skeeljfyypvsnba Historysee above [facility] [employer] Other Chief Complaint and Reason for Visit [...] MD Attending Provider Active Kofi Bowers II [facility] ProviderActive Team Status: Active Member Role Status Dates Kofi Bowers II MD Primary Care Provider Active Team Status: Inactive Member Role Status Dates Kofi Bowers II MD Primary Care Provider Active Abdullahi Acosta MDAttjolanta ProviderActiveTeam MemberRelationshipSpecialtyStart DateEnd Date Kofi Bowers MD [address] [place] [address] PCP - GeneralInternal Medicine12/22/22Team MemberRelationshipSpecialtyStart Date End Date Kofi Bowers MD [address] [place] [address] PCP - [facility] Medicine12/22/22 Team Status: Inactive Member Role Status Dates Kofi Bowers II MD Primary Care Provider Active Start: June 29, 2024 End: June 29, 2024Heidi Henrry , AUXILIARY PLANT OPERATOR ACNP-BCAttending ProviderActiveStart: June 29, 2024 End: June 29, 2024Team MemberRelationshipSpecialtyStart DateEnd Date Kofi Bowers MD [address] [place] [address] - [address] [facility] Medicine12/22/22Team MemberRelationshipSpecialtyStart Date End Date Kofi Bowers MD [address] [place] [address] - [address] [facility] Centernal Medicine12/22/22Team MemberRelationshipSpecialtyStart Date End Date Kofi Bowers MD [address] [place] [address] - [address] [facility] Centernal Medicine12/22/22Team MemberRelationshipSpecialtyStart Date End Date Kofi Bowers MD [address] [place] [address] PCP - GeneralInternal Medicine12/22/22am MemberRelationshipSpecialtyStart Date End Date Kofi Bowers MD [address] [place] [address] PCP - GeneralInternal Medicine12/22/22am MemberRelationshipSpecialtyStart Date End Date Kofi Bowers MD [address] [place] [address] PCP - GeneralInternal Medicine12/22/22am MemberRelationshipSpecialtyStart Date End Date Kofi Bowers MD [address] [place] [address] PCP - GeneralInternal Medicine12/22/22am MemberRelationshipSpecialtyStart Date End Date Kofi Bowers MD [address] [place] [address] PCP - GeneralInternal Medicine12/22/22am MemberRelationshipSpecialtyStart Date End Date Kofi Bowers MD [address] [place] [address] PCP - GeneralInternal Medicine12/22/22am MemberRelationshipSpecialtyStart Date End Date Kofi Bowers MD [address] [place] [address] PCP - GeneralInternal Medicine12/22/22am MemberRelationshipSpecialtyStart Date End Date Kofi Bowers MD [address] [place] [address] PCP - GeneralInternal Medicine12/22/22am MemberRelationshipSpecialtyStart Date End Date Kofi Bowers MD [address] [place] [address] PCP - GeneralInternal Medicine12/22/22am MemberRelationshipSpecialtyStart Date End Date Kofi Bowers MD [address] [place] [address] PCP - GeneralInternal Medicine12/22/22am MemberRelationshipSpecialtyStart Date End Date Kofi Bowers MD [address] [place] [address] PCP - GeneralInternal Medicine12/22/22Team MemberRelationshipSpecialtyStart Date End Date Kofi Bowers MD [address] [place] [address] PCP - GeneralInternal Medicine12/22/22Team MemberRelationshipSpecialtyStart Date End Date Kofi Bowers MD [address] [place] [address] PCP - GeneralInternal Medicine12/22/22Team MemberRelationshipSpecialtyStart Date End Date Kofi Bowers MD [address] [place] [address] PCP - GeneralInternal Medicine12/22/22Team MemberRelationshipSpecialtyStart Date End Date Kofi Bowers MD [address] [place] [address] PCP - GeneralInternal Medicine12/22/22 Goals (unrecognized section and content) Goals may be documented in a n alternate sectionNo InformationGoals may be documented in an alternate sectionNo InformationGoals may be documented in an alternate section REASON FOR VISIT (unrecogniz ed section and content) ReasonOnset DateCommentsMed Bzfmen0409/29/2023[facility] CLYDEReasonOnset DateCommentsMed Kxkfwn3206/04/2024easonOnset DateCommentsMed Tdohuq8707/02/2024 ReasonOnset DateCommentsMed Pxgpnl2004/04/2024easonOnset DateCommentsMed Refill 05/07/2024easonOnset DateCommentsMed Eccwsn7508/02/2024easonCommentsInsomniaPt states she had a bone stimulator placement surgery on 08/13/24 at [facility] and she is actually sleeping better at night.ReasonOnset DateCommentsMed Iqkots3910/03/2024 ReasonOnset DateCommentsMed Kkyhit3012/03/2024ReasonCommentsNauseaReasonComments Med RefillReasonOnset DateCommentsMed Xuvrhh4104/29/2025ReasonCommentsMedicare Annual Wellness Visit SubsequentDiscuss plan with medications: last visit pt was advised to stop metformin and trulicity and was started on samples of farxiga 5mg -- need to discuss plan going forward with meds-- sugars average 130-140 ReasonCommentsBack Pain INFORMATION SOURCE (unrecogn ized section and content) DATE CREATED AUTHOR 10/19/2022 [facility] DATE CREATED AUTHOR AUTHOR'S ORGANIZ ATION 01/27/2023 [facility] DATE CREATED AUTHOR AUTHOR'S ORGANIZ ATION 09/23/2023 [facility] DATE CREATED AUTHOR AUTHOR'S ORGANIZ ATION 03/20/2024 [facility] DATE CREATED AUTHOR AUTHOR'S ORGANIZ ATION 03/17/2025 [facility] DATE CREATED AUTHOR AUTHOR'S ORGANIZ ATION 04/22/2025 [employer] [facility] DATE CREATED AUTHOR AUTHOR'S ORGANIZ ATION 06/18/2025 [facility] EPIC FOR RECORDS PERTAINING [...] BE BASED ON THE PRIMARY CLINICAL RECORDS. [facility] CenterAdzerk [facility]. provides no warranty or guarantee of the accuracy or completeness of information in this document.
[2025-08-12 08:21] VITALS: BP 150/70; PULSE 73; TEMP 36.6; O2SAT 95
[2025-08-12 08:46] VITALS: PULSE 85; O2SAT 96
[2025-08-12 08:48] VITALS: BP 185/78; BP 187/76; PULSE 76; O2SAT 97
[2025-08-12] MEDS: LIDOCAINE HCL 2% 400 MG/20 ML MDV INJ (08:50)
[2025-08-12] MEDS: BUPIVACAINE HCL 0.25% PF 25 MG/10 ML VIAL 8 ML INJ (08:50)
--- NOTE | 2025-08-12 08:53 | W.PM.PROCNOT ---
Date of procedure: 08/12/25 Pre-op diagnosis: Pain due to lumbar spondylosis without myelopathy Post-op diagnosis: same as pre-op Procedure: Procedure: Bilateral L1-2, 2-3 medial branch block Medications: Bupivacaine 0.25% 6cc The patient was seen and examined in the preoperative holding area.? An informed consent was obtained and placed on the chart.? The patient was brought to the medical procedure unit and placed in the prone position.? A timeout was completed verifying correct patient, procedure site, positioning, plan, and special equipment.? Using aseptic technique, the needle was placed at left L1. Under direct fluoroscopic visualization a Quincke-tipped spinal needle was advanced to the junction of the superior articulating process with the transverse process at the designated medial branch segment.? Preceded by negative aspiration, the above-mentioned injectate was placed in 1 mL aliquots.? The procedure was repeated at left L2, 3.? The needle was removed and insertion site was covered. The same procedure, at the same levels, was completed on the right side. The patient was taken to the postprocedural recovery area and monitored for an appropriate length of time before found suitable for discharge in the company of a responsible adult. Anesthesia: Local Surgeon: Esperanza Maya Pathology: none sent Condition: stable Disposition: no change
== END 2025-08-12 08:57 | disposition home or self-care (01) ==
PROVIDERS: PCP Internal Medicine; Visit Provider Anesthesiology
DX: M47.816 Spondylosis without myelopathy or radiculopathy, lumbar region (principal); G89.29 Other chronic pain; E11.8 Type 2 diabetes mellitus with unspecified complications; Z79.4 Long term (current) use of insulin
CPT/HCPCS: 36415; 64493; 64494; 82948; J0665

== ENCOUNTER 2025-08-14 09:08 | Outpatient (OUT) | payer MEDICARE, SELFPAY ==
--- OUTSIDE RECORDS SUMMARY | 2025-08-14 09:10 | XMS_ITS | Encounter Summary ---
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[facility]); Insomnia, unspecified type Social History Tobacco UseTypesPacks/DayYears UsedDateSmoking Tobacco: FormerCigarettesQuit: 08/15/1999Smokeless Tobacco: NeverAlcohol UseStandard Drinks/WeekCommentsNot Currently0 (1 standard drink = 0.6 oz pure alcohol)Caffeine: 1-2 cups per day; none soda/popPHQ-2AnswerDate RecordedPatient Health Questionnaire-2 Score1 06/17/2025CommentsUnknownSex and Gender InformationValueDate RecordedSex Assigned at BirthNot on fileLegal DwcCjrril85/15/2023 6:38 PM EDTGender Identity Not on fileSexual OrientationNot on filedocumented as of this encounter Plan of Treatment DateTypeDepartmentCare Team (Latest Contact Info)Nuowtonvukt38/30/2026 11:30 AM EDTOffice Visit [facility] [place] [address] [facility] [address] [place] [address] Kofi Bowers MD [address] [place] [address] documented as of this encounter Visit Diagnoses 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
--- OUTSIDE RECORDS SUMMARY | 2025-08-14 09:10 | XMS_ITS | Encounter Summary ---
Author Organization [facility] Address [address] [facility] [place] [address] Care Team Providers Care Dominatrix Name Role Phone Kofi Bowers MD Primary Care Provider [phone] Encounter Details DateTypeDepartmentCare Team (Latest Contact Info)Tzediadrcxr90/22/2025bstract [facility] [place] [facility] [address] [facility] [address] [place] [address] Kofi Bowers MD [address] [facility] [address] [place] [id number] Social History Tobacco UseTypesPacks/DayYears UsedDateSmoking Tobacco: FormerCigarettesQuit: 08/15/1999Smokeless Tobacco: NeverAlcohol UseStandard Drinks/WeekCommentsNot Currently0 (1 standard drink = 0.6 oz pure alcohol)Caffeine: 1-2 cups per day; none soda/popPHQ-2AnswerDate RecordedPatient Health Questionnaire-2 Score1 06/17/2025CommentsUnknownSex and Gender InformationValueDate RecordedSex Assigned at BirthNot on fileLegal OrwMnssby24/15/2023 6:38 PM EDTGender Identity Not on fileSexual OrientationNot on filedocumented as of this encounter Plan of Treatment DateTypeDepartmentCare Team (Latest Contact Info)Swzbiirvknv28/30/2026 11:30 AM EDTOffice Visit [facility] [place] [facility] [address] [facility] [address] [place] [address] Kofi Bowers MD [address] [facility] [address] [place], [place] [id number] documented as of this encounter Visit Diagnoses Not on filedocumented in this encounter Additional Health Concerns AssessmentNoted TimePHQ-9 Depression Total Score: 10:00 AM EDT documented as of this encounter Care Teams Team MemberRelationshipSpecialtyStart DateEnd Date Kofi Bowers MD [address] [facility] [address] [place] [address] PCP - GeneralInternal Medicine12/22/22documented as of this encounter
--- OUTSIDE RECORDS SUMMARY | 2025-08-14 09:10 | XMS_ITS | Clinical Summary ---
Author Organization [facility] Address [facility] [place] [address] Care Team Providers Care Staff Accountant Name Role Phone Unavailable Primary Care Provider Unavailabl e Allergies Active AllergyReactionsCriticalityNoted WtosWnyzgjvtVgvjbrAvtqcmkg29/12/2014 NhneunjotFloxalyt15/12/2014 Medications MedicationSigDispense QuantityRefillsLast FilledStart DateEnd DateStatus meloxicam [...] to affected area.Active Active Problems ProblemNoted DateDiagnosed KrryBchhdlgbwsnngb90/12/3295Gtcifxsd45/12/2014Obesity 01/24/2014 Social History Tobacco UseTypesPacks/DayYears UsedDateSmoking Tobacco: Never Assessed CommentsUnknownSex and Gender InformationValueDate RecordedSex Assigned at Not on fileLegal YhuRsyafa97/02/2012 10:41 AM ESTGender IdentityNot on file Sexual OrientationNot on file Last Filed Vital Signs Vital SignReadingTime TakenCommentsBlood Vpveuzql837/6006 12:45 PM EDT Hcrqx6661 12:45 PM EDTTemperature--Respiratory Rate--Oxygen Saturation-- Inhaled Oxygen Concentration--Weight--Height--Body Mass Index-- Plan of Treatment Health MaintenanceDue DateLast DoneCommentsAnxiety Ueoppabsv80/06/1963Depression Hhpazbxbn17/06/1963DTaP,Tdap,Td Vaccine (1 - Tdap)1964Diabetes Screening 1990Pneumococcal Vaccine: 50+ (1 of 1 - PCV)1995Shingrix Vaccine (1 of 2)1995Bone Density Zmimferot50/06/2010RSV Vaccine (1 - 1-dose 75+ series)2020Advance Directive Rkwlxvwplk65/01/2025ovid-19 Vaccine (1 - 2024-26 season)2025Influenza Vaccine (#1)2025 Insurance
--- OUTSIDE RECORDS SUMMARY | 2025-08-14 09:10 | XMS_ITS | Clinical Summary ---
Author Organization [employer] Address [id number] [address] [place] [address] Care Team Providers Care Ec Teacher Name Role Phone Kofi Bowers MD Primary Care Provider [phone] Allergies Active AllergyReactionsCriticalityNoted XlaqRhhsocslZothww30/11/2019 Throat swells, couldn't breathe Dechzxjdgqwi36/11/2019 itchy Medications MedicationSigDispense QuantityRefillsLast FilledStart DateEnd DateStatus [...] standard drink = 0.6 oz pure alcohol)ChildcareAnswerDate DuaghemyLcqvpkctoYqeknip13/12/2019Employment AnswerDate MnzynrirMtkvzplcnlXvbifnu22/12/2019Hunger ScreeningAnswerDate RecordedWithin the past 12 months we worried whether our food would run out before we got money to buy more.Never True03/18/2024Within the past 12 months the food we bought just didn't last and we didn't have money to get more.Never True4Purpose - LifeAnswerDate RecordedPurpose and direction in life Kvlfnki26/11/2021CommentsNoSex and Gender InformationValueDate Recorded Sex Assigned at BirthNot on fileLegal LopEcsrvp43/06/2015 11:38 AM EDTGender IdentityNot on fileSexual OrientationNot on file Last Filed Vital Signs Vital SignReadingTime TakenCommentsBlood Jjmlkame619/7308 11:04 AM EDT Ltsxk6567 11:04 AM FJFDrzytiizavv98.6 ??C (97.9 ??F)03/18/2024 11:04 AM EDTRespiratory Eygt4938 11:04 AM EDTOxygen Ozxsyvwlcq300%03/18/2024 11:04 AM EDTInhaled Oxygen Concentration--Cdysfv37.6 kg (182 lb)03/18/2024 11:04 AM YXNKzxici306.4 cm (5')03/18/2024 11:04 AM EDTBody Mass Index35.5408 11:04 AM EDT Plan of Treatment Health MaintenanceDue DateLast DoneCommentsDepression Yymhkxhbh69/06/1957Tobacco Xolbmmxfg71/06/1957Fall Risk Xsupovdov81/06/2010DTaP,Tdap and Td Vaccines (1 - Tdap)RSV ( or age 60+ yrs) (1 - 1-dose 75+ series) 2020Zoster (Shingles) Vaccine (2 of 2)/3COVID-19 Vaccine (3 - 2024- season)502/, 09/10/2020Influenza Orgxgbw8804/15/2025 06/06/2023, 05/20/2021, 09/15/2020, Additional history exists Medical Devices Not on file Insurance Care Teams Team MemberRelationshipSpecialtyStart DateEnd Date Kofi Bowers MD [address] [facility] [address] [place] [address] PCP - GeneralInternal Medicine10/27/22
--- OUTSIDE RECORDS SUMMARY | 2025-08-14 09:10 | XMS_ITS | Patient Health Record ---
Author Organization [facility] [place] Address [address] [place] [address] Care Team Providers Care Airways Operations Specialist Name Role Phone None, Unknown or Primary Care Provider Unavailab le Reason For Referral No Information Medications Medication SIG (Take, Route, Frequency, Duration) Notes Start Date End Date Status Omeprazole 20 MG 1 capsule 30 minutes before mor nicole meal Orally Once a day ActiveLiothyronine Sodium 25 MCG1 tablet on an empty stomach Orally Once a day ActiveCalcium + D 500-1000-40 KE-TUO-UBBvq directed OrallyActiveAcarbose 100 MG as directed OrallyActiveTrulicity [...] meal Orally Once a dayActiveLoratadine Allergy ReliefActiveVitamin A2Exeguz Problems Problem Type SNOMED Code ICD Code Onset Dates Problem Status W/U Status Risk Notes Problem Polyneuropathy due t o type 2 diabetes mellitus (523568806) Type 2 diabetes mellitus with diabetic polyneuropathy (E11.42) Activeconfirmed Plan Of Treatment No Information Insurance Providers Payer Name Payer Address Payer Phone Subscriber Number Group Number Insured Name Patient Relationship to Insured Coverage Start Date Coverage End Date [employer] MEDICARE [address] [address] [place], [place] [id number] Cece Mobley Self - patient is the insured Medical (General) History Surgical History Surgery Date(Month/Year) appendix removal 1961 gallbladder removal 1986 back surgery 2002 back surgery 2008 tonsils 1964
--- OUTSIDE RECORDS SUMMARY | 2025-08-14 09:10 | XMS_ITS | Clinical Summary ---
Author Organization [facility] Address [address] [place] [address] Care Team Providers Care Nuclear Control Room Operator Name Role Phone Kofi Bowers MD Primary Care Provider [phone] Allergies Active AllergyReactionsCriticalityNoted DateCommentsIodineAnaphylaxisHigh 04/08/20225527Bsdmwlfoafki18/25/2022regabalinDizziness,Kuyqbcm5202/24/2021hellfish Containing TlpjsjcjJlrekcsh69/12/2014 Medications MedicationSigDispense QuantityRefillsLast FilledStart DateEnd DateStatus acarbose [...] Problems ProblemNoted DateDiagnosed DateVenous hypertension of lower ymhrulrmt72/09/2023 Trigger thumb, left thumb12/14/20222464Ymbymytckg77/02/2023Failed back syndrome 12/14/2022ecreased estrogen level12/14/2022denomatous polyp of ascending colon 12/14/2022OSA (obstructive sleep apnea)04/28/2022 Assessment & Plan (06/01/2022 2:23 PM EDT): Continue to wear cpap Assessment & Plan (04/28/2022 2:06 PM EDT): F/U with PCP for further management Closed fracture of orbital floor (blow-out)04/08/20224203Erhlfden92/25/2022Fracture of orbit04/08/2022Fracture of radial neck04/08/2022ain in elbow04/08/2022 Hypertensive tyohxixa10/30/2021 Assessment & Plan (06/01/2022 2:21 PM EDT): [...] 0.85 normal K+ 4.8 normal Acquired trigger hhuyim6001/15/2021Non-seasonal allergic vtndvoze76/25/2021 Vitreous floaters of both eyes04/29/2020Diabetic retinopathy associated with controlled type 2 diabetes gwwivbjf82/15/2020Continuous positive airway pressure yksxjtple72/18/2020Failed back ommbakfp88/04/2018Benign neoplasm of colon 06/27/2018History of colonic doxwsw3506/01/2018Family history of malignant neoplasm of gastrointestinal tract06/01/2018Lipoprotein deficiency disorder 05/01/2018Long term current use of uhrqlqk0901/28/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 shaatgu7511/25/2015Ex-kmiwlk1410/22/2015History of fall10/02/2015Disability of jpldizb5210/02/20153593Ydwtfxjt34/27/2015Mixed mrfmqttaolajgy28/27/2015GERD (gastroesophageal reflux disease)06/10/2015ESS (euthyroid sick syndrome) 06/10/2015Type 2 diabetes mellitus with hruzgqwzkryia63/27/2015Chronic pain qmswyhls72/27/2015Chronic dvmxxcd3006/10/2015Benign essential hypertension 06/10/20156852Kkayvqeoog00/27/2015Peripheral venous cxltezawgwxvc74/01/2015Diabetic polyneuropathy associated with type 2 diabetes czdkzdap75/01/2015Obesity 01/24/20140434Opunwnic69/12/9073Wnjpowqqliwosz83/12/2014 Immunizations ImmunizationAdministration DatesNext DueInfluenza, High Dose Seasonal, Preservative Free09/15/2020,05/15/2020Influenza, injectable, MDCK, preservative free, zetncklzbfym47/06/2021Influenza, injectable, quadrivalent, preservative free06/15/2019,05/22/2018Influenza, seasonal, ejykwshbob50/14/2019Unspecified Sars-Cov-2 Hvlclbpjstb62/17/2021,09/10/2020 Family History Medical HistoryRelationNameCommentsCoronary artery diseaseBrotherCoronary artery [...] ValueDate RecordedSex Assigned at BirthNot on fileLegal ThzXalapd24/29/2022 11:38 PM EDTGender IdentityNot on fileSexual OrientationNot on file Last Filed Vital Signs Vital SignReadingTime TakenCommentsBlood Wgsbhlvq888/78001/03/2023 11:10 AM EDT Abvej8066/22/2023 11:10 AM EDTTemperature--Respiratory Rate--Oxygen Saturation 98%01/03/2023 11:10 AM EDTInhaled Oxygen Concentration--Ufokqp23.9 kg (189 lb 6.4 oz)01/03/2023 11:10 AM EBJIwvlpu132.4 cm (5')01/03/2023 11:10 AM EDTBody Mass Index36.9901/03/2023 11:10 AM EDT Plan of Treatment Health MaintenanceDue DateLast DoneCommentsDiabetes: Hemoglobin A1C1945 Medicare Annual Wellness (AWV)1945Diabetes: Retinopathy Screening 1955Depression Iddzdmtek78/06/1957Fall Risk Mmlfyntha20/06/2010 Pneumococcal Vaccine: 50+ Years (2 of 2 - PCV)Diabetes: Urine Protein Galaahxdr42, 01/19/2018, 10/28/2016, Additional history existsZoster Vaccines (2 [...] Mobley TypeRelation to PatientDate of BirthPhone Billing AddressPersonal/ShlmeiXsai1945 [address] [place] [address] Care Teams Team MemberRelationshipSpecialtyStart DateEnd Date Kofi Bowers MD [address] [place] [address] [facility]04/07/22
--- OUTSIDE RECORDS SUMMARY | 2025-08-14 09:10 | XMS_ITS | Encounter Summary ---
Author Organization [facility] Address [address] [facility] [place] [address] Care Team Providers Care Rack Production Worker Name Role Phone Kofi Bowers MD Primary Care Provider [phone] Encounter Details DateTypeDepartmentCare Team (Latest Contact Info)Lrlkvtlzynu98/23/2025linisync Result Encounter [facility] External Department Unsolicited Provider, Generic External Data Social History Tobacco UseTypesPacks/DayYears UsedDateSmoking Tobacco: FormerCigarettesQuit: 08/15/1999Smokeless Tobacco: NeverAlcohol UseStandard Drinks/WeekCommentsNot Currently0 (1 standard drink = 0.6 oz pure alcohol)Caffeine: 1-2 cups per day; none soda/popPHQ-2AnswerDate RecordedPatient Health Questionnaire-2 Score1 06/17/2025CommentsUnknownSex and Gender InformationValueDate RecordedSex Assigned at BirthNot on fileLegal YhcPcymqw10/15/2023 6:38 PM EDTGender Identity Not on fileSexual OrientationNot on filedocumented as of this encounter Plan of Treatment DateTypeDepartmentCare Team (Latest Contact Info)Yvdmvgohfrz70/30/2026 11:30 AM EDTOffice Visit [facility] [address] [facility] [address] [place] [address] Kofi Bowers MD [address] [place] [address] documented as of this encounter Procedures Procedure NamePriorityDate/TimeAssociated DiagnosisCommentsXR LUMBAR SPINE MIN 4V110/07/2024 9:45 AM EST documented in this encounter Results * XR LUMBAR SPINE MIN 4V (08/06/2025 9:45 AM EST)Anatomical RegionLaterality ModalityOtherSpecimen (Source)Anatomical Location / LateralityCollection Method / VolumeCollection TimeReceived Time08/06/2025 9:45 AM EST Narrative 08/06/2025 9:47 AM EST [facility] ?[address] ? [place] [address] ?XRay Report ? Signed ? Patient: KONRAD MOBLEY G ? MR#: [id number] ?? : 1945 ?Acct:[id number] ?? Age/Sex: 80 / F ?ADM Date: 08/05/25 ?? Loc: RAD ? Attending Dr: Esperanza Maya M.D. ? Ordering Physician: Esperanza Maya M.D. ?? Date of Service: 08/05/25 ?? Procedure(s): XR lumbar spine min 4V ?? Accession Number(s): [id number] ? cc: KOFI BOWERS ; Esperanza Maya M.D. ? [facility] ? [address] [facility] ? [place] [address] ? Patient Name: ?? KONRAD MOBLEY ? MRN: [facility]:[id number] ? date: 1945 ?Sex: F ?? Assigned Patient Location: RAD ?? Current Patient Location: ? Accession/Order Number: [id number] ?? Exam Date: 08/05/2025 ??14:46 ?Report Date: [...] M.D. ??08/06/2025 9:45 AM ? Dictation Location: [place] [address] ? Electronically authenticated by: [id number] ??Y ?? Date: 08/06/2025 ??09:45 ? Dictated By: ?Skye Ramírez M.D. ? Signed By: ?08/06/2547 ? DD/ 0945 ? TD/TT: ? Stove Polisher: Procedure Note Radiology, Radiologist, MD - 08/06/2025 [place] [address] XRay Report Signed Patient: KONRAD MOBLEY GMR#: [id number] : 5Acct:[id number] Age/Sex: 80 / FADM Date: 08/05/25 Loc: RAD Attending Dr: Esperanza Maya M.D. Ordering Physician: Esperanza Maya M.D. Date of Service: 08/05/25 Procedure(s): XR lumbar spine min 4V Accession Number(s): [id number] cc: KOFI BOWERS ; Esperanza Maya M.D. The [address] [address] Patient Name: KONRAD MOBLEY MRN: [id number] date: 1945 Sex: F Assigned Patient Location: RAD Current Patient Location: Accession/Order Number: [id number] Exam Date: 08/05/2025 14:46 Report Date: 08/06/2025 [...] Ramírez M.D. 08/06/2025 9:45 AM Dictation Location: [place] [address] Electronically authenticated by: [id number] Y Date: 509:45 Dictated By: Skye Ramírez M.D. Signed By:08/06/25 0947 DD/ TD/TT: Stove Polisher: Authorizing ProviderResult TypeResult StatusGeneric External Data Provider CLINIS[facility]NC IMAGINGFinal Result documented in this encounter Visit Diagnoses Not on filedocumented in this encounter Additional Health Concerns AssessmentNoted TimePHQ-9 Depression Total Score: 10:00 AM EDT documented as of this encounter Care Teams Team MemberRelationshipSpecialtyStart DateEnd Date Kofi Bowers MD [address] [place] [address] PCP - GeneralInternal Medicine12/22/22documented as of this encounter
--- OUTSIDE RECORDS SUMMARY | 2025-08-14 09:10 | XMS_ITS | Encounter Summary ---
Author Organization [facility] Address [address] [place] [address] Care Team Providers Care Oil Field Technician Name Role Phone Kofi Bowers MD Primary Care Provider [phone] Reason for Visit * ReasonOnset DateCommentsMed Hxrpme1208/06/2025 Encounter Details DateTypeDepartmentCare Team (Latest Contact Info)Qcgaazguepg51/23/2025Telephone [facility] [place] [facility] [address] [place] [phone] Kofi Bowers MD [address] [place] [id number] Med Refill Social History Tobacco UseTypesPacks/DayYears UsedDateSmoking Tobacco: FormerCigarettesQuit: 08/15/1999Smokeless Tobacco: NeverAlcohol UseStandard Drinks/WeekCommentsNot Currently0 (1 standard drink = 0.6 oz pure alcohol)Caffeine: 1-2 cups per day; none soda/popPHQ-2AnswerDate RecordedPatient Health Questionnaire-2 Score1 06/17/2025CommentsUnknownSex and Gender InformationValueDate RecordedSex Assigned at BirthNot on fileLegal AiiIdabph82/15/2023 6:38 PM EDTGender Identity Not on fileSexual OrientationNot on filedocumented as of this encounter Miscellaneous Notes * Telephone Encounter - MAREK CORONEL - 08/06/2025 9:22 AM EST New rx sent * Telephone Encounter - Chelle Guallpa - 08/06/2025 9:10 AM EST tiZANidine (Zanaflex) 4 MG tablet patient needs a refill on this sent to [facility] in [place]. She was recently in the er and has severe back pain. She said she called us and spoke with a nurse that said sheis okay to take 2 every 8 hours. She is now running out sooner because the scripts says only 1. documented in this encounter Plan of Treatment DateTypeDepartmentCare Team (Latest Contact Info)Tqtcqbsoqbb62/30/2026 11:30 AM EDTOffice Visit [facility] [place] [facility] [address] [place] [address] Kofi Bowers MD [address] [place] [address] documented as of this encounter Visit Diagnoses Diagnosis Acute myofascial strain of lumbar region, subsequent encounter documented in this encounter Additional Health Concerns AssessmentNoted TimePHQ-9 Depression Total Score: 10:00 AM EDT documented as of this encounter Care Teams Team MemberRelationshipSpecialtyStart DateEnd Date Kofi Bowers MD [address] [place] [address] PCP - GeneralInternal Medicine12/22/22documented as of this encounter
--- OUTSIDE RECORDS SUMMARY | 2025-08-14 09:10 | XMS_ITS | Encounter Summary ---
Author Organization [facility] Address [address] [place] [address] Care Team Providers Care Investigations Director Name Role Phone Kofi Bowers MD Primary Care Provider [phone] Encounter Details DateTypeDepartmentCare Team (Latest Contact Info)Vbhsbrfitav08/18/2025Telephone [facility] [place] [facility] [address] [place] [address] Kofi Bowers MD [address] [facility] [address] [place] [address] Social History Tobacco UseTypesPacks/DayYears UsedDateSmoking Tobacco: FormerCigarettesQuit: 08/15/1999Smokeless Tobacco: NeverAlcohol UseStandard Drinks/WeekCommentsNot Currently0 (1 standard drink = 0.6 oz pure alcohol)Caffeine: 1-2 cups per day; none soda/popPHQ-2AnswerDate RecordedPatient Health Questionnaire-2 Score1 06/17/2025CommentsUnknownSex and Gender InformationValueDate RecordedSex Assigned at BirthNot on fileLegal MvuPylalg61/15/2023 6:38 PM EDTGender Identity Not on fileSexual [...] Plan of Treatment DateTypeDepartmentCare Team (Latest Contact Info)Dqfyyggvdri66/30/2026 11:30 AM EDTOffice Visit [facility] [place] [facility] [address] [place] [address] [place] [address] Kofi Bowers MD [address] [place] [address] documented as of this encounter Visit Diagnoses Not on filedocumented in this encounter Additional Health Concerns AssessmentNoted TimePHQ-9 Depression Total Score: 10:00 AM EDT documented as of this encounter Care Teams Team MemberRelationshipSpecialtyStart DateEnd Date Kofi Bowers MD [address] [facility] [address] [place] [address] PCP - GeneralInternal Medicine12/22/22documented as of this encounter
--- OUTSIDE RECORDS SUMMARY | 2025-08-14 09:10 | XMS_ITS | Clinical Summary ---
Author Organization [facility] Address [address] [place] [address] Care Team Providers Care Bean Viner Name Role Phone Kofi Bowers MD Primary Care Provider [phone] Allergies Active AllergyReactionsCriticalityNoted DateCommentsIodineShortness of breath High12/14/20222893WonityfutrclUzmoz33/02/1978PviyxoujqzQwhaadvst14/02/2023Shellfish EjvlwkdRdyzfjwc85/12/2014 Medications MedicationSigDispense QuantityRefillsLast FilledStart DateEnd DateStatus aspirin [...] same time.Active cholecalciferol (Vitamin D-3) 1.25 MG (60703 UT) tablet Vitamin D3 5000IUActive Calcium Citrate-Vitamin D (Vishnu-Citrate Plus Vitamin D) 250-2.5 MG-MCG tablet Take 1 tablet by mouth in the morning and 1 tablet in the evening.Active Allergy Relief 10 MG tablet Indications:Allergy, initial encounterTAKE 1 TABLET BY MOUTH EVERY MORNING 30 tablet 4Active amLODIPine (Norvasc) 10 MG tablet Indications:Benign essential hypertensionTAKE 1 TABLET BY MOUTH IN THE MORNING 100 tablet 4Active furosemide (Lasix) 40 MG tablet Indications:Benign essential [...] capsule Take 50 mg by mouth at ebjvqzz28/02/2025Active Glucose Blood (Blood Glucose Test) strip Indications:Type 2 diabetes mellitus with hyperglycemia, without long-term current use of insulin (HCC)1 each by In Vitro route Daily 100 strip 5Active Blood Glucose Monitoring Suppl (Blood Glucose Monitor System) w/Device kit Indications:Type 2 diabetes mellitus with hyperglycemia, without long-term current use of insulin (HCC)1 each Daily 1 kit 5Active Lancets 30G misc Indications:Type 2 diabetes mellitus with hyperglycemia, without long-term current use of insulin ([facility])1 each Daily 100 each 5Active Alcohol Swabs (Alcohol Prep) 70 % pads Indications:Type 2 diabetes mellitus with hyperglycemia, without long-term current use of insulin ([facility])1 Pad Daily 100 each 5Active pen needle 32G x 4 mm misc Indications:Type 2 diabetes mellitus with hyperglycemia, with long-term current use of insulin ([facility])Inject 1 each under the skin Daily 100 each 5Active empagliflozin (Jardiance) 10 MG Indications:Diabetes mellitus type 2 with neurological manifestations (HCC)Take 1 tablet (10 mg) by mouth Daily 30 tablet 6Active liothyronine (Cytomel) 25 MCG tablet Indications:Hypothyroidism, unspecified type0.5 tablet on an empty stomach Orally two times daily. D.A.W. as Sigma or Aunt Bertha Brand ONLY for90 days 200 tablet 5Active insulin glargine (Lantus SoloStar) 100 UNIT/ML pen Indications:Type 2 diabetes mellitus with hyperglycemia, with long-term current use of insulin ([facility])Inject 60 Units under the skin in the [...] if needed for muscle spasms 180 tablet 506Active lovastatin (Mevacor) 20 MG tablet Indications: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HHS-HCC)TAKE 1 TABLET BY MOUTH ONCE DAILY 90 tablet 5Active QUEtiapine (SEROquel) 50 MG tablet Indications:Insomnia, unspecified typeTAKE 1 TABLET BY MOUTH ONCE DAILY 30 tablet 5Active lovastatin (Mevacor) 20 MG tablet Indications: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HHS-HCC)TAKE 1 TABLET BY MOUTH ONCE DAILY 100 tablet Discontinued QUEtiapine (SEROquel) 50 MG tablet Indications:Insomnia, unspecified typeTAKE 1 TABLET BY MOUTH ONCE DAILY 30 tablet Discontinued tiZANidine (Zanaflex) 4 MG tablet Indications:Acute myofascial strain of lumbar region, subsequent encounterTake 1 tablet (4 mg) by mouth every 8 (eight) hours if needed for muscle spasms 30 tablet Discontinued(Reorder) Active Problems ProblemNoted DateDiagnosed DateMorbid (severe) obesity due to excess calories 08/28/2024Restless leg dweydcar63/05/0540Swkmfbd21/14/2024Ectropion of lower andjfo8703/11/2023losed fracture of orbital floor (blow-out)03/11/2023iplopia 03/11/2023 Overview (03/11/2023): Removal Reason: Resolved. Fracture of orbit03/11/2023Fracture of radial neck03/11/2023ain in elbow 03/11/2023Venous hypertension of lower qqbnakyqg34/09/2023denomatous polyp of ascending colon12/14/2022enign essential otovkmswpzim76/02/2023hronic fatigue 12/14/2022hronic pain /02/2023ontinuous positive airway pressure iqhrymjzr48/02/2023ecreased estrogen level12/14/2022iabetes mellitus type 2 with neurological cqmedcbengvfgq46/02/2023Type 2 diabetes mellitus with qsidhjrzjhygp76/02/2023iabetic retinopathy associated with controlled type 2 diabetes uqekeilp16/02/2023ifficulty in walking, not elsewhere classified 12/14/2022ESS (euthyroid sick syndrome)12/14/2022Failed back kwidwcwz00/02/2023 GERD (gastroesophageal reflux disease)12/14/2022Sleep initiation disorder 12/14/2022Mixed adfbvhcsghdths90/02/2023Non-seasonal allergic ryhfumpz20/02/2023 Zbvjkssmog69/02/2023eripheral vascular yonfhdz8512/14/2022eripheral venous ithhaudijpaei47/02/2023Trigger thumb, left thumb12/14/2022Vitreous floaters of both eyes12/14/20225213Hokkiwzf06/25/2022cquired trigger oezlug7801/15/2021ody mass index (BMI) 35.0-35.9, adult04/21/2020OSA (obstructive sleep apnea)04/11/2019 Overview (03/11/2023): Last Assessment & Plan: Continue to wear cpap Benign neoplasm of colon06/27/2018History of colonic revvum4706/01/2018Family history of malignant neoplasm of gastrointestinal tract06/01/2018Lipoprotein deficiency wiosamgl60/17/2018Long term current use of cnkqfcf2101/28/2016 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HHS-HCC)11/25/2015Ex-tcvafz3310/22/2015History of fall10/02/20151805Pvcprwhk94/27/2015Diabetic polyneuropathy associated with type 2 diabetes ukcmqkny35/01/6579Pxafkxdj52/12/0254Scbkowbgnmxiek95/12/2014 Resolved Problems ProblemNoted DateDiagnosed DateResolved DateLow HDL (under 40)12/14/2022 12/14/2022 Encounters DateTypeDepartmentCare LejnFxxefmncccq73/29/2025Refill [facility] [address] [place] [address] Kofi Bowers MD 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[facility]); Insomnia, unspecified type08/06/2025linisync Result Encounter [facility] External Department Unsolicited Provider, Generic External Data 08/06/2025Telephone [facility] [address] [place] [address] Kofi Bowers MD Med Hnfnky7008/05/2025bstract [facility] [address] [place] [address] Kofi Bowers MD 08/01/2025Telephone [facility] [address] [place] [address] Kofi Bowers MD 07/29/2025Refill [facility] [address] [place] [address] Kofi Bowers MD Acute myofascial strain of lumbar region, subsequent rottldefp86/11/2025 Telephone [facility] [address] [place] [address] Kofi Bowers MD 07/22/2025bstract [facility] [facility] [address] [place] [address] Kofi Bowers MD 07/01/2025Refill [facility] [place] [facility] [address] [place] [address] Kofi Bowers MD Type 2 diabetes mellitus with hyperglycemia, with long-term current use of insulin (HCC); Failed back enhqlsff81/03/2025 11:30 AM ESTOffice Visit [facility] [place] [facility] [address] [facility] [address] [place] [address] Kofi Bowers MD Acute myofascial strain of lumbar region, subsequent encounter; Need for nzjfyzzdrpg11/03/2025amb [facility] [address] [facility] [address] [place] [address] Kofi Bowers MD 06/17/20252907Nwcxhi98/24/2025Telephone [facility] [place] [facility] [address] [facility] [address] [place] [address] Kofi Bowers MD 06/06/2025 9:00 AM EDTOffice Visit [facility] [place] [facility] [address] [facility] [address] [place] [address] Kofi Bowers MD Acute myofascial strain of lumbar region, initial encounter (Primary Dx) 06/06/2025amb flowsheet [facility] [place] [facility] [address] [facility] [address] [place] [address] Kofi Bowers MD 06/06/20255570Tgnlyi15/07/2025bstract [facility] [address] [facility] [address] [place] [address] Kofi Bowers MD from Last 3 Months Immunizations ImmunizationAdministration DatesNext DueABRYSVO - Respiratory syncytial virus (RSV), vaccine, bivalent, protein subunit RSV prefusion F, diluent reconstituted, 0.5 mL, PF06/20/2024Influenza, High Dose Seasonal, Preservative Free06/17/2025,06/20/2024,09/15/2020Influenza, High-dose Seasonal, Quadrivalent, Preservative Free06/06/2023Influenza, Recombinant, injectable, preservative free 05/15/2020Influenza, injectable, MDCK, preservative free, dopuljraylif31/06/2021 Influenza, injectable, quadrivalent, preservative free06/15/2019,05/22/2018, 08/02/2015Pneumococcal Polysaccharide UOOT7953Td (adult), 5 Lf tetanus toxoid, preservative free, qokazvej30/17/2015Zoster, Ynhwljcanvo07/29/2025, 12/07/2024 Family History Medical HistoryRelationNameCommentsCancerBrotherColon ; Didn't indicate which brother among the 3Heart diseaseBrotherPassed ; Didn't indicate which brother among the 3Kidney problemBrotherPassed ; Didn't indicate which brother among the 3CancerFatherDiabetesFatherHeart diseaseFatherHypertensionFatherCancerMother Colon CancerCancerOtherSpouse: Prostate that metastisized to bone ; Eryhtroid LeukemiaDiabetesSonTourette gkrsrpalKrrCljriydfAawzNsjffeTrlejmkyXvncuajx2Mqholy UkrceuzoZtbymyHqmaxargFwissOplwwgteFkzdddy6NxxBoacd Social History Tobacco UseTypesPacks/DayYears UsedDateSmoking Tobacco: FormerCigarettesQuit: 08/15/1999Smokeless Tobacco: Never Tobacco Cessation:Counseling Given: Yes Alcohol UseStandard Drinks/WeekCommentsNot Currently0 (1 standard drink = 0.6 oz pure alcohol)Caffeine: 1-2 cups per day; none soda/popPHQ-2AnswerDate Recorded Patient Health Questionnaire-2 Jxsvf926CommentsUnknownSex and Gender InformationValueDate RecordedSex Assigned at BirthNot on fileLegal Sex Yiqcyv1010/27/2022 6:38 PM EDTGender IdentityNot on fileSexual OrientationNot on file Last Filed Vital Signs Vital SignReadingTime TakenCommentsBlood Nyfwvtxi789/6006/17/2025 11:32 AM EST Emylh380406/17/2025 11:32 AM TIGCgubezyzsks99.4 ??C (97.5 ??F)02/08/2025 11:07 AM EDTRespiratory Omfa701608/17/2024 11:32 AM ESTOxygen Ppyuibhrnb58%06/17/2025 11:32 AM ESTInhaled Oxygen Concentration--Hbspvr00 kg (194 lb)06/17/2025 11:32 AM EST Capzzv556.4 cm (5')06/17/2025 11:32 AM ESTBody Mass Index37.8906/17/2025 11:32 AM EST Plan of Treatment DateTypeDepartmentCare Team (Latest Contact Info)Sjbtostespb43/30/2026 11:30 AM EDTOffice Visit [facility] [facility] [address] [facility] [address] [place] [address] Kofi Bowers MD [address] [facility] [address] [place] [address] Health MaintenanceDue DateLast DoneCommentsPneumococcal Vaccine: 65+ Years (2 of 2 - PCV)Diabetes: Hemoglobin A1C, 03/07/2025, 01/14/2025, Additional history existsMedicare Annual Wellness (AWV) /10/2024, 04/09/2024, 01/03/2023, Additional history existsDiabetes: Urine Protein Sgkqlwfga02/12/2024, 04/09/2024, 01/18/2024, Additional history existsDiabetes: Retinopathy Kbgqajlza95, 05/03/2024, 04/28/2020, Additional history existsInfluenza HkiwollLvrncwhbz17/03/2025, 06/20/2024, 06/06/2023, Additional history exists Procedures Procedure NamePriorityDate/TimeAssociated DiagnosisCommentsXR LUMBAR SPINE MIN 4V110/07/2024 9:45 AM EST DIABETIC RETINOPATHY SCREENING - OU - BOTH PMBSOuxlijy11/22/2025 MICROALBUMIN / CREATININE URINE SFKWUAjzoskm49/05/2025 9:53 AM EDT Diabetes mellitus type 2 with neurological manifestations (HCC) POCT GLYCATED HEMOGLOBIN, GNOXNQntegyn29/03/2025 11:24 AM EDT Diabetes mellitus type 2 with neurological manifestations (HCC) from Last 3 Months or Most Recently Relevant to Health Maintenance Results * XR LUMBAR SPINE MIN 4V (08/06/2025 9:45 AM EST)Anatomical RegionLaterality ModalityOtherSpecimen (Source)Anatomical Location / LateralityCollection Method / VolumeCollection TimeReceived Time08/06/2025 9:45 AM EST Narrative 08/06/2025 9:47 AM EST [facility] ?[address] ? [place] [address] ?XRay Report ? Signed ? Patient: ITZKONRAD ? MR#: [id number] ?? : 1945 ?Acct:[id number] ?? Age/Sex: 80 / F ?ADM Date: 08/05/25 ?? Loc: RAD ? Attending Dr: Esperanza Fallon M.D. ? Ordering Physician: Esperanza Fallon M.D. ?? Date of Service: 08/05/25 ?? Procedure(s): XR lumbar spine min 4V ?? Accession Number(s): [id number] ? cc: KOFI BOWERS ; Esperanza Fallon M.D. ? [facility] ? [address] ? [place] [address] ? Patient Name: ?? KONRAD MOBLEY ? MRN: [facility]:[id number] ? date: 1945 ?Sex: F ?? Assigned Patient Location: RAD ?? Current Patient Location: ? Accession/Order Number: [id number] ?? Exam Date: 08/05/2025 ??14:46 ?Report Date: 08/06/2025 ??09:45 ? At the request of: ?? ESPERANZA ??VASYL ??MD ? Procedure: ??XR lumbar spine [...] M.D. ??08/06/2025 9:45 AM ? Dictation Location: [place] [address] ? Electronically authenticated by: [id number] ??Y ?? Date: 08/06/2025 ??09:45 ? Dictated By: ?Skye Ramírez M.D. ? Signed By: ?08/06/25 0947 ? DD/ 0945 ? TD/TT: ? Extrusion Die Coordinator: Procedure Note Radiology, Radiologist, - 08/06/2025 [place] [address] XRay Report Signed Patient: KONRAD MOBLEY R#: [id number] : 5Acct:[id number] Age/Sex: 80 / FADM Date: 08/05/25 Loc: RAD Attending Dr: Esperanza Fallon M.D. Ordering Physician: Esperanza Fallon M.D. Date of Service: 08/05/25 Procedure(s): XR lumbar spine min 4V Accession Number(s): [id number] cc: KOFI BOWERS ; Esperanza Fallon M.D. The [address] [address] Patient Name: KONRAD MOBLEY MRN: [id number] date: 1945 Sex: F Assigned Patient Location: [facility] Current Patient Location: Accession/Order Number: [id number] Exam Date: 08/05/2025 14:46 Report Date: 08/06/2025 [...] Ramírez M.D. 08/06/2025 9:45 AM Dictation Location: [place] [address] Electronically authenticated by: [id number] Y Date: 509:45 Dictated By: Skye Ramírez M.D. Signed By:08/06/2547 DD/ 4 TD/TT: Extrusion Die Coordinator: Authorizing ProviderResult TypeResult StatusGeneric External Data Provider CLINISYNC IMAGINGFinal Result * Diabetic Retinopathy Screening - OU - Both Eyes (05/06/2025)ComponentValueRef RangeTest MethodAnalysis TimePerformed AtPathologist SignatureRESULTSndr Anatomical RegionLateralityModalityHeadOtherSpecimen (Source)Anatomical Location / LateralityCollection Method / VolumeCollection TimeReceived Time 05/06/2025 Narrative Authorizing ProviderResult TypeResult StatusKofi Bowers MDOPHTH PHOTOGRAPHY Final Result * Microalbumin / creatinine urine ratio (04/19/2025 9:53 AM EDT)ComponentValue Ref RangeTest MethodAnalysis TimePerformed AtPathologist SignatureCREATININE, RANDOM JNNJY6709 - 275 mg/dLQUESTALBUMIN, URINE0.3See Note: mg/dLQUESTComment: Reference [...] specimen obtained by clean catch procedure / Agendoy9204/19/2025 9:53 AM EDT04/19/2025 9:53 AM EDT Narrative [facility] - 2025 11:17 AM EDT FASTING:YES FASTING: YES Resulting Agency Comment Performing Organization Information ?Site ID: [id number] ?Name: [facility] ?Address: [address] [place] [address], [address] [place] [id number] ?Director: Cezar Singh MD Authorizing ProviderResult TypeResult StatusKofi Bowers MDELLSWORTH COUNTY [facility] URINE ORDERABLESFinal ResultPerforming OrganizationAddressCity/State/ZIP CodePhone Number [facility] * POCT Glycated hemoglobin, total (04/17/2025 11:24 AM EDT)ComponentValueRef RangeTest MethodAnalysis TimePerformed AtPathologist SignatureHemoglobin A1C 7.8Specimen (Source)Anatomical Location / LateralityCollection Method / Volume Collection TimeReceived UiunSzdfc62/03/2025 11:24 AM EDT Narrative Authorizing ProviderResult TypeResult Jorge Luis Bowers MDPOINT OF CARE TEST ENTER/EDIT ORDERABLESFinal Result from Last 3 Months or Most Recently Relevant to Health Maintenance Insurance Care Teams Team MemberRelationshipSpecialtyStart DateEnd Date Kofi Bowers MD [address] [facility] [address] [place] [address] PCP - GeneralInternal Medicine12/22/22
--- OUTSIDE RECORDS SUMMARY | 2025-08-14 09:12 | XMS_ITS | CCD ---
Author Organization [facility] Care Team Providers [employer] Salesperson Name Role Phone Olamide Ching Unavailable MD [...] TypeDate of OnsetReaction(s) Facility (3 sources)GemfibrozilDrug Allergymuscle [facility] Other (20 sources)Iodine; Translations: [IODINE]Drug Xubecps60-46-2580gmqomcmyeiw, [facility]ness [facility] breathC[facility]ository (5 sources)levoFLOXacin; Translations: [Levaquin]Drug Skuepbf25-91-9555 [facility]opathyAd[facility] Rep[facility] (20 sources)levoFLOXacin; Translations: [LEVOFLOXACIN]Drug Rjjtggr02-76-9132 [facility] (1 source)Iodine and Iodide Containing ProducAllergy to qbvulfnvg19-36-2769 Unknown ReactionBluffton Hospital (2 sources)hydrALAZINEDrug Tkqzyso07-37-9627PemAdams County Regional Medical Center Repository (1 source)IodineDrug Chygise92-59-1536KwrAdams County Regional Medical Center Repository (20 sources)pregabalin; Translations: [PREGABALIN]Drug Dzjwxqo66-90-1867 [facility]izzinessUnL[facility] (1 source)SHELLFISH CONTAINING PRODUCTS; Translations: [SHELLFISH CONTAINING PRODUCTS]Propensity to adverse reactions to drug (disorder)20-51-3984AeukyrqxvjCleveland Clinic [facility] Repository (3 sources)Iodinated Contrast Media; Translations: [Iodinated Contrast Media] Allergy to uztyscbcv96-92-5445Mvcckrb ReactionBluffton Hospital (2 sources)GemfibrozilDrug Zxfmzwj98-74-3649gfxrhv atrophyBluffton Hospital Repository (1 source)IodineDrug Drqhrok39-24-3585DussloaqdBluffton Hospital Repository (20 sources)ShellfishAllergy to ukmobiooj02-85-7901HotcquooYHAQ [facility] Work Phone: Medications Current Medications MedicationDrug Class(es)DatesSig (Normalized)Sig (Original)acarbose 100 mg oral tablet (20 sources)alpha-Glucosidase InhibitorStart: 17-38-2901tgby 1 tablet by mouth in the morningacarbose (Precose) 100 MG tablet Indications: Diabetes mellitus type 2 with neurological manifestations (HCC) TAKE 1 TABLET BY MOUTH IN THE MORNING AND 1 TABLET BEFORE BEDTIME 60 tablet 11 5ActiveStart: 97-08-9858nhhv 1 tablet by mouth in the morningacarbose (Precose) 100 MG tablet Indications: 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 60 tablet 10 01/18/2024 ActiveStart: 28-24-3325uglo 1 tablet by mouth in the morningacarbose (Precose) 100 MG tablet Indications: 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 200 tablet 3 02/02/2023 ActiveStart: 96-14-9976oyip 1 tablet by mouth twice dailyAcarbose 100 [...] 25 mg oral tablet (2 sources)Tricyclic AntidepressantStart: 65-41-8379dgja 1 tablet by mouth every twenty-four hoursAmitriptyline HCl 25 MG 1 tablet at bedtime Orally Once a day for 30 day(s) Jun, ActiveamLODIPine 10 mg oral tablet (20 sources)Dihydropyridine Calcium Channel BlockerStart: 91-56-6993bzzz 1 tablet by mouth in the morningamLODIPine (Norvasc) 10 MG tablet Indications: Benign essential hypertension TAKE 1 TABLET BY MOUTHIN THE MORNING 100 tablet 3 07/23/2024 ActiveStart: 81-18-3627iihq 1 tablet by mouth in the morning [...] sources)Platelet Aggregation Inhibitor, Nonsteroidal Anti-inflammatory Drug Start: 89-23-5828qhtekdb 81 MG EC tablet 1 (one) time each day at the same time. 2018 ActiveBaby Aspirin Activebaclofen 10 mg oral tablet (20 sources)gamma-Aminobutyric Acid-ergic AgonistStart: 43-18-5764slpi 0.5-1 tablets by mouth three times daily as neededbaclofen (Lioresal) 10 MG tablet TAKE 1/2 (ONE-HALF) TO 1 (ONE) TABLET BY MOUTH THREE TIMES DAILY NEEDED 12/25/2024 Activebiotin 5 mg sublingual tablet (3 sources)Start: 76-86-3239zblt 1 capsule under the tongue once dailyBiotin 5,000 mcg Tablet, Sublingual Active 1 CAP SUBLINGUAL Daily June 12, 2018 11:00pmBlood Glucose Monitoring Suppl (Blood Glucose Monitor System) w/Device kit (14 sources)Start: 01-24-7827Annyb Glucose Monitoring Suppl (Blood Glucose Monitor System) w/Device kit Indications: Type 2 diabetes mellitus with hyperglycemia, without long-term current use of insulin ([facility]) 1 each Daily 1 kit [...] (5 sources)alpha-Adrenergic Theodora, beta-Adrenergic BlockerStart: 02-20-2024 End: 68-27-9897gmcx 1 tablet by mouth at mealtimecarvedilol (Coreg) 25 MG tablet Indications: Benign essential hypertension (CMS/HCC) TAKE 1 TABLET BY MOUTH IN THE MORNING AND IN THE EVENING WITH MEALS 60 tablet 10 02/20/2024 04/09/2024 Discontinued (Other)Start: 02-19-3797axmd 1 tablet by mouth in the morning carvedilol (Coreg) 25 MG tablet Indications: Benign essential hypertension (CMS/HCC) Take 1 tablet (25 mg) by mouth in the morning and 1 tablet (25 mg) in the evening. Take with meals. 180 tablet 3 02/22/2023 Activecetirizine hydrochloride 10 mg oral tablet (13 sources)Histamine-1 Receptor Antagonist End: 17-37-7918fgjlkaugcn (ZyrTEC) 10 MG tablet 1 (one) time each day at the same time. 08/28/2024 Discontinued (Other)cholecalciferol 1.25 mg oral tablet (20 sources)Vitamin Dcholecalciferol (Vitamin D-3) 1.25 MG (17836 UT) tablet Vitamin D3 5000IU Activecholecalciferol (Vitamin D-3) 1.25 MG (61833 UT) tablet Vitamin D3 5000IU 0 ActivecloNIDine hydrochloride 0.1 mg oral tablet (3 sources)Central alpha-2 Adrenergic AgonistStart: 42-04-1750xhaz 1 tablet by mouth twice dailyClonidine Hcl 0.1 mg tablet Active 1 TAB PO Twice daily June 12, 2018 11:00pmdapagliflozin 5 mg oral tablet (2 sources)Sodium-Glucose Cotransporter 2 InhibitorStart: 04-19-2025 End: 73-57-1502jydglafjrkcvy (Farxiga) 5 MG Indications: Diabetes mellitus type 2 with neurological manifestations(HCC) , Type 2 diabetes mellitus with hyperglycemia, unspecified whether senior care insulin use (HCC) Take 1 tablet (5 mg) by mouth Daily 100 tablet 3 04/23/2025 05/28/2026 Active0.5 ml dulaglutide 3 mg/ml auto-injector (3 sources)GLP-1 Receptor AgonistTrulicity 1.5 MG/0.5ML as directed Subcutaneous As Directed ActiveDULoxetine 60 mg delayed release oral capsule (6 sources)Serotonin and Norepinephrine Reuptake InhibitorStart: 06-13-2018 Duloxetine 60 mg capsule,delayed release(DR/EC) Active June 12, 2018 11:00pmStart: 61-17-3054Aijrvyihwb Active June 12, 2018 11:00pm empagliflozin 10 mg oral tablet (8 sources)Sodium-Glucose Cotransporter 2 InhibitorStart: 04-26-2025 End: 21-82-0956llrb 1 tablet by mouth once dailyempagliflozin (Jardiance) 10 MG Indications: Diabetes mellitus type 2 with neurological manifestations (HCC) Take 1 tablet (10 mg) by mouth Daily 30 tablet 11 04/26/2025 04/26/2026 Active furosemide 40 mg oral tablet (20 sources)Loop DiureticStart: 52-01-3765aggn 1 tablet by mouth in the morning [...] mg oral tablet (5 sources)Arteriolar Vasodilator End: 35-19-5078cyqpTVRUPFU (Apresoline) 50 MG tablet every 12 (twelve) hours. 04/09/2024 Discontinued (Other)hydroCHLOROthiazide 25 mg / losartan potassium 100 mg oral tablet (20 sources)Thiazide Diuretic, Angiotensin 2 Receptor BlockerStart: 02-14-2025 take 1 tablet by mouth once dailylosartan-hydroCHLOROthiazide (Hyzaar) 100-25 MG tablet Indications: Hypertension, unspecified type Take 1 tablet by mouth Daily 100 tablet 2 02/14/2025 ActiveStart: 53-41-6667amii 1 tablet by mouth once daily losartan-hydroCHLOROthiazide (Hyzaar) 100-25 MG tablet Indications: Hypertension, unspecified type Take 1 tablet by mouth Daily 100 tablet 2 03/05/2024 ActiveStart: 53-05-3691vgbp 1 tablet by mouth once dailylosartan- hydroCHLOROthiazide (Hyzaar) 100-25 MG tablet Indications: Hypertension, unspecified type (CMS/HCC) Take 1 tablet by mouth 1 (one) time each day at the same time. 100 tablet 2 04/26/2023 Active3 ml insulin glargine 100 unt/ml pen injector (10 sources)Insulin AnalogStart: 31-53-9360Lajfvz SoloStar 100 UNIT/ML pen Indications: Type 2 diabetes mellitus with hyperglycemia, with long-term current use of insulin ([facility]) INJECT 60 UNITS SUBCUTANEOUSLY (UNDER THE SKIN) IN THE MORNING 15mL 5 04/18/2025 Activeisopropyl alcohol 0.7 ml/ml medicated pad (14 sources)Start: 92-28-4376Pghcmdy Swabs (Alcohol Prep) 70 % pads Indications: Type 2 diabetes mellitus with hyperglycemia, without long-term current use of insulin ([facility]) 1 Pad Daily 100 each 3 03/12/2025 Activeliothyronine sodium 0.025 mg oral tablet (20 sources)l-TriiodothyronineStart: 04-26-2023 End: 23-75-5110etix 0.5 tablet by mouth twice dailyliothyronine (Cytomel) 25 MCG tablet Indications: Hypothyroidism, unspecified type 0.5 tablet on anempty stomach Orally two times daily. D.A.W. as Sigma or [employer] Brand ONLY for 90 days 200 tablet 3 05/01/2025 ActiveStart: 70-45-3239pevt 1 tablet by mouth once dailyLiothyronine 25 mcg tablet Active 0.5 TAB PO Daily June 12, 2018 11:00pmLiothyronine Sodium 25 MCG as directed Orally bid Activeloratadine 10 mg oral tablet (20 sources)Start: 98-06-3727niui 1 tablet by mouth once daily in the morning Allergy Relief 10 MG tablet Indications: Allergy, initial encounter TAKE 1 TABLET BY MOUTH EVERY MORNING 30 tablet 11 03/20/2024 ActiveStart: 03-11-2023 End: 46-59-5531inab 1 tablet by mouth in the morningloratadine (Claritin) 10 MG tablet Indications: Allergy, initial encounter Take 1 tablet (10 mg) bymouth in the morning. 30 tablet 11 03/11/2023 03/10/2024 ActiveStart: 25-03-1498qkux 1 tablet by mouth once dailyLoratadine 10 mg Capsule Active 1 TAB PO Daily June 12, 2018 11:00pmlosartan potassium 100 mg oral tablet (6 sources)Angiotensin 2 Receptor BlockerStart: 88-96-3352lvvz 1 tablet by mouth once dailyLosartan 100 mg tablet Active 1 TAB PO Daily June 12, 2018 11:00pmlovastatin 20 mg oral tablet (20 sources)HMG-CoA Reductase InhibitorStart: 27-75-5260pvbr 1 tablet by mouth once dailylovastatin (Mevacor) 20 MG tablet Indications: 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HHS-HCC) TAKE 1 TABLET BY MOUTH ONCE DAILY 100 tablet 3 08/16/2024 ActiveStart: 28-22-3584stul 1 tablet by mouth once dailylovastatin (Mevacor) 20 MG tablet Indications: Congenital renal artery anomaly TAKE 1 TABLET BY MOUTH ONCE DAILY 30 tablet 10 09/21/2023 Activemelatonin 5 mg oral capsule (6 sources)Start: 90-94-1835Pziepdhoc 5 mg Capsule Active June 12, 2018 11:00pmStart: 22-34-3342Pxjnjqzeu Active June 12, 2018 11:00pmMelatonin 5 MG Orally qhs ActivemetFORMIN hydrochloride 1000 mg oral tablet (20 sources)BiguanideStart: 71-56-9655lmnh 1 tablet by mouth in the morning metFORMIN (Glucophage) 1000 MG tablet Indications: Diabetes mellitus type 2 with neurological manifestations (HCC) TAKE 1 TABLET BY MOUTH IN THE MORNING AND 1 TABLET IN THE EVENING. TAKE WITH MEALS 60 tablet 11 12/13/2024 ActiveStart: 02-41-5187mnqw 1 tablet by mouth in the morningmetFORMIN (Glucophage) 1000 MG tablet Indications: 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 TAKE WITH MEALS. 60 tablet 10 01/18/2024 Active methylPREDNISolone (4 sources)CorticosteroidStart: 06-06-2025 End: 79-72-8453aqoqwdPPFPBTCvixud (Medrol Dospak) 4 MG tablets Indications: Acute myofascial strain of lumbar region, initial encounter Follow schedule on package instructions 21 tablet 06/06/2025 06/17/2025 Discontinued (Therapy completed)Start: 06-06-2025 End: 17-54-5516oskantOOFNEGNeklqg (Medrol Dospak) 4 MG tablets Indications: Acute myofascial strain of lumbar region, initial encounter Follow schedule on package instructions 21 tablet 06/06/2025 06/13/2025 Frucxn68 hr metoprolol succinate 50 mg extended release oral tablet (9 sources)beta-Adrenergic BlockerStart: 76-78-0426zoru 1 tablet by mouth twice dailyMetoprolol Succinate 50 mg tablet extended release 24 hr Active 1 TAB PO Twice daily June 12, 2018 11:00pmtake 2 tablets by mouth every twenty-four hoursToprol XL 50 MG 2 tablet Orally Once a day ActiveMetoprolol Succinate ActiveMultivitamin preparation (3 sources)Multivitamin Activenaproxen 500 mg oral tablet (7 sources)Nonsteroidal Anti-inflammatory DrugStart: 04-09-2024 End: 19-67-2228bgvj 1 tablet by mouth in the morningnaproxen (Naprosyn) 500 MG tablet Indications: Iliopsoas bursitis of right hip Take 1 tablet (500 mg) by mouth in the morning and 1 tablet (500 mg) in the evening. Take with meals. Do all this for 14days. 28 tablet 04/09/2024 04/23/2024 Active End: 58-06-5781tsphyysq (Naprosyn) 500 MG tablet every 12 (twelve) hours. 04/09/2024 Discontinued (Other)omeprazole 20 mg delayed release oral capsule (20 sources)Proton Pump InhibitorStart: 12-35-2399ylmi 1 capsule by mouth in the morningomeprazole (PriLOSEC) [address] capsule Indications: Gastroesophageal reflux disease without esophagitis TAKE 1 CAPSULE BY MOUTH IN THE MORNING 30 capsule 11 12/13/2024 ActiveStart: 22-94-0595mxyx 1 capsule by mouth in the morningomeprazole (PriLOSEC) [address] capsule Indications: Gastroesophageal reflux disease without esophagitis TAKE 1 CAPSULE (20 MG) BY MOUTH IN THE MORNING. 30 capsule 10 01/18/2024 Activeondansetron 8 mg oral tablet (5 sources)Serotonin-3 Receptor AntagonistStart: 02-08-2025 End: 89-84-3966lkgb 1 tablet by mouth every eight hours as needed for nausea and vomiting and nausea and nauseaondansetron (Zofran) 8 MG tablet Indications: Nausea Take 1 tablet (8 mg) by mouth every 8 (eight) hours if needed for nausea or vomiting for up to 7 days 20 tablet 02/08/2025 02/15/2025 Active microencapsulated potassium chloride 20 meq extended release oral tablet (20 sources)Start: 17-44-7884Vvpltrzpt Chloride 20 mEq tablet,ER particles/crystals Active 1 PACKET PO Daily June 12, 2018 11:00pmStart: 59-93-1101Zwxuwwssy Chloride Active 1 PACKET PO Daily June 12, 2018 11:00pm pramipexole dihydrochloride 0.75 mg oral tablet (3 sources)Nonergot Dopamine AgonistStart: 22-67-7883skpy 1 tablet by mouth in the morningpramipexole (Mirapex) 0.75 MG tablet Indications: Chronic pain syndrome Take 1 tablet (0.75 mg) by mouth in the morning. 30 tablet 2 07/20/2023 Active End: 63-04-8195rkhckvkepih (Mirapex) 0.5 MG tablet 1 (one) time each day at the same time 01/14/2025 Discontinued (Therapy completed)pregabalin 100 mg oral capsule (6 sources)Start: 40-66-0356gbcn 1 tablet by mouth twice dailyPregabalin 100 mg capsule Active 1 TAB PO Twice daily June 12, 2018 11:00pmQUEtiapine 50 mg oral tablet (20 sources)Atypical AntipsychoticStart: 36-58-2064yipu 1 tablet by mouth once dailyQUEtiapine (SEROquel) 50 MG tablet Indications: Insomnia, unspecified type TAKE 1 TABLET BY MOUTH ONCE DAILY 30 tablet 10 09/17/2024 ActiveStart: 73-20-4817xldk 1 tablet by mouth once dailyQUEtiapine (SEROquel) 50 MG tablet Indications: Insomnia, unspecified type TAKE 1 TABLET BY MOUTH ONCE DAILY 30 tablet 10 10/20/2023 ActiverOPINIRole 2 mg oral tablet (12 sources)Nonergot Dopamine AgonistStart: 01-18-2024 End: 55-36-9348floy 0.5 tablet by mouth at bedtimerOPINIRole (Requip) 2 MG tablet Indications: Restless Leg Syndrome Take 0.5 tablets (1 mg) by mouthat bedtime 30 tablet 2 01/18/2024 08/28/2024 Discontinued (Other)tiZANidine 4 mg oral tablet (9 sources)Central alpha-2 Adrenergic AgonistStart: 06-06-2025 End: 83-22-2459utio 1 tablet by mouth every eight hours for muscle spasms tiZANidine (Zanaflex) 4 MG tablet Indications: Acute myofascial strain of lumbar region, subsequentencounter Take 1 tablet (4 mg) by mouth every 8 (eight) hours if needed for muscle spasms 30 vvlncw7206/17/2025 06/27/2025 ActivetraMADol hydrochloride 50 mg oral tablet (20 sources)Opioid AgonistStart: 01-04-2025 End: 45-27-5388lwpl 1 tablet by mouth every six hours for paintraMADol (Ultram) 50 MG tablet Indications: Failed back syndrome Take 1 tablet (50 mg) by mouth every 6 (six) hours if needed for severe pain 120 tablet 1 05/01/2025 06/30/2025 ActiveStart: 03-05-2024 End: 82-58-1033gbbb 1 tablet by mouth every six hours for paintraMADol (Ultram) 50 MG tablet Indications: Failed back syndrome Take 1 tablet (50 mg) by mouth every 6 (six) hours if needed for severe pain 120 tablet 12/03/2024 01/02/2025 ActiveStart: 77-29-9599qskp 1 tablet by mouth every six hours for paintraMADol (Ultram) 50 MG tablet Indications: Failed back syndrome Take 1 tablet (50 mg) by mouth every 6 (six) hours if needed for severe pain 120 tablet 0 09/29/2023 ActiveStart: 06-13-2018 End: 62-41-4220tecf 1 tablet by mouth every six hours [...] MG/0.5ML solution auto-injector (13 sources)Start: 08-23-2024 End: 27-97-3207Ruvbwfhyl 4.5 MG/0.5ML solution auto-injector Indications: Diabetes mellitus type 2 with neurological manifestations (HCC) INJECT CONTENTS OF 1 SYRINGE SUBCUTANEOUSLY ONCE WEEKLY 2 mL 08/23/2024 02/08/2025 DiscontinuedStart: 46-04-2363Laqljxlou 4.5 MG/0.5ML solution auto-injector Indications: Diabetes mellitus type 2 with neurological manifestations (HCC) INJECT CONTENTS OF 1 SYRINGE SUBCUTANEOUSLY ONCE WEEKLY 2 mL 08/23/2024 Ac tiveStart: 04-83-0907Wabheyeyk 4.5 MG/0.5ML solution auto-injector Indications: 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) INJECT CONTENTS OF 1 SYRINGE SUBCUTANEOUSLY ONCE WEEKLY 2 mL 08/23/2024 Active Trulicity 4.5 MG/0.5ML solution pen-injector (10 sources)Start: 95-39-6524Gziumlcpw 4.5 MG/0.5ML solution pen-injector Indications: Diabetes mellitus [...] tablet (13 sources)gamma-Aminobutyric Acid-ergic AgonistStart: 11-18-2023 End: 99-02-7613hpiuhfis CR (Ambien CR) 6.25 MG ER tablet Indications: Primary insomnia Take 1 tablet (6.25 mg) by mouth as needed at bedtime for sleep Do not crush, chew, or split. 30 tablet 2 11/18/2023 08/28/2024Discontinued (Other) Start: 28-58-2076jyvcfwvp CR (Ambien CR) 6.25 MG ER tablet Indications: Primary insomnia Take 1 tablet (6.25 mg) by mouth as needed at bedtime for sleep Do not crush, chew, or split. 30 tablet 2 08/04/2023 Activezonisamide 50 mg oral capsule (14 sources)Anti-epileptic AgentStart: 91-06-6947cxlv 1 capsule by mouth at bedtimezonisamide (Zonegran) 50 MG capsule Take 50 mg by mouth at bedtime 02/13/2025 Active Completed/Discontinued Medications MedicationDrug Class(es)DatesSig (Normalized)Sig (Original)cefTRIAXone (4 sources)Cephalosporin AntibacterialStart: 58-37-5310Gjjvgpvh 500 mg Feb, 1000 mgStart: 76-90-4381Thiqkxli 500 mg Jul, 1 grmeszopiclone 3 mg oral tablet (2 sources) End: 43-99-1813awzsfgfqwaf (Lunesta) 3 MG tablet 1 (one) time each day at the same time 01/14/2025 Discontinued (Other)3 ml insulin detemir 100 unt/ml pen injector (20 sources)Insulin AnalogStart: 04-17-2025 End: 47-44-7824qhugnkr detemir (Levemir FlexTouch) 100 UNIT/ML pen Indications: Diabetes mellitus type 2 with neurological manifestations (HCC) Inject 60 Units under the skin in the morning. 3 mL 11 04/17/2025 04/17/2025 Discontinued (Availability)Start: 40-13-1600Nykejjm Detemir U-100 100 unit/mL (3 mL) insulin pen Active 0 .ROUTE .COMPLEX June 12, 2018 11:00pm as directed2 ml orphenadrine citrate 30 mg/ml injection (20 sources)Muscle RelaxantStart: 01-14-2025 End: 56-12-9417wrsqybdrwnxm (Norflex) injection 60 mgStart: 01-14-2025 End: 80-79-4699wergac 60 mg by intramuscular injection once60 mg, Intramuscular, Once, On Tue01/14/25 at 1330, For 1 doseStart: 10-27-2023 End: 27-98-1590wbcc 1 tablet by mouth twice daily as [...] sources)Patient encounter status; Translations: [Other specified counseling] 90-94-2520XvowndjpMhoubgy and circulatory congenital anomalies (20 sources)Congenital anomaly of renal blood vessel; 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]Onset: hronic Diabetes mellitus with complications (20 sources)Disorder of nervous system due to type 2 diabetes mellitus; Translations: [Type 2 diabetes mellituswith other diabetic neurological complication]Onset: 109410-78-9130HmktzdqCazxnhmx mellitus without complication (20 sources)Type 2 diabetes mellitus without complications; Translations: [Diabetes mellitus]Onset: 073469-43-4343GslltpjSxzycsril of lipid metabolism (20 sources)Hyperlipidemia, unspecified; Translations: [Mixed hyperlipidemia] Onset: 507941-95-6963PwaigoqLtxpxsoggn disorders (20 sources)Gastro-esophageal reflux disease without esophagitis; Translations: [Gastroesophageal reflux disease]Onset: 390593-49-8791OmmqriqKiulliskq hypertension (20 sources)Essential (primary) hypertension; Translations: [Benign essential hypertension]Onset: 88-43-2770VubprkqGqwwgbbcyxoaz and screening for infectious disease (2 sources)Vaccination needed; Translations: [Encounter for immunization] 14-34-7347QyfvwtqtGmthaas and fatigue (20 sources)Fatigue; Translations: [Chronic fatigue, unspecified]Onset: 959614-82-4010IxgcdwdDqgnxwidzf disorders (20 sources)Other primary ovarian failure; Translations: [Decreased estrogen level]Onset: 91-08-3534OclljcdVlfhohbqwrxnr mental health disorders (6 sources)Chronic insomnia; Translations: [Psychophysiologic insomnia]Chronic Nausea and vomiting (6 sources)Nausea; Translations: [Nausea]79-57-4632GtepmhieQnlzn diseases of veins and lymphatics (20 sources)Venous hypertension of lower limb; Translations: [Chronic venous hypertension (idiopathic) without complications of unspecified lower extremity] Onset: 423652-05-5825YyepfknSuovd eye disorders (20 sources)Bilateral vitreous floaters; Translations: [Other vitreous opacities, bilateral]Onset: 897072-34-5754EsycxlhVaohe hereditary and degenerative nervous system conditions (1 source)Restless legs syndrome; Translations: [RESTLESS LEGS SYNDROME]Onset: 13-74-2088DfvbxtrWpqgw hereditary and degenerative nervous system conditions (20 sources)Restless legs; Translations: [Restless legs syndrome]Onset: 107815-11-2750DgckxmhJsqqi lower respiratory disease (3 sources)Disorder of lung; Translations: [Other disorders of lung]Episodic Other nervous system disorders (1 source)Polyneuropathy, unspecified; Translations: [POLYNEUROPATHY UNSPECIFIED]Onset: 30-23-1632AohndfuJjhmf nervous system disorders (20 sources)Chronic pain syndrome; Translations: [Chronic pain syndrome]Onset: 086437-91-0788EdsttmvOyzwn nervous system disorders (20 sources)Difficulty walking; Translations: [Difficulty in walking, not elsewhere classified]Onset: 737031-36-0027BjyynkaDlatr nervous system disorders (20 sources)Polyneuropathy; Translations: [Polyneuropathy, unspecified]Onset: 285029-18-7763JwbofzfNqukq nutritional; endocrine; and metabolic disorders (6 sources)Obese class II; Translations: [Body mass index (BMI) 35.0-35.9, adult]ChronicOther nutritional; endocrine; and metabolic disorders (1 source)Body mass index (BMI) 35.0-35.9, adultOnset: 07-02-2021 Resolved: 06-87-1858YpcpyhzGpmpe nutritional; endocrine; and metabolic disorders (20 sources)Body mass index 30+ - obesity; Translations: [Obesity, unspecified] Onset: 954056-64-4614LqotclmUexka nutritional; endocrine; and metabolic disorders (20 sources)Lipoprotein deficiency disorder; Translations: [Lipoprotein deficiency]Onset: 539191-25-1022LtyhprqFtoul nutritional; endocrine; and metabolic disorders (20 sources)Obesity caused by energy imbalance; Translations: [Morbid (severe) obesity due to excess calories]Onset: 382837-05-8868JkiiydsNqghq upper respiratory disease (20 sources)Allergic rhinitis; Translations: [Other allergic rhinitis]Onset: 315088-65-7964LkulgthXivxtuitwc and visceral atherosclerosis (20 sources)Peripheral vascular disease; Translations: [Peripheral vascular disease, unspecified]Onset: 634954-48-2128FifbqntPdggwxlg codes; unclassified (20 sources)Obstructive sleep apnea syndrome; Translations: [Obstructive sleep apnea (adult) (pediatric)]Onset: 127906-05-7174MagoeiyCerojztb codes; unclassified (6 sources)Obstructive sleep apnea (adult) (pediatric); Translations: [Obstructive sleep apnea (adult)(pediatric)]Onset: 07-02-2021 Resolved: 48-33-7735WdrkprmSxyxoawp codes; unclassified (1 source)Obstructive sleep apnea (adult)(pediatric); Translations: [Obstructive sleep apnea (adult) (pediatric)]Onset: 99-59-4972KwxwmhnDfmyoyjy codes; unclassified (20 sources)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 airway pressure ventilation; Translations: [Dependence on other enabling machines and devices]Onset: 904048-56-1191QpmufuvHtktoocl codes; unclassified (20 sources)Initial insomnia; Translations: [Other insomnia]Onset: 12-14-2022 21-48-9305MbmvsunWraujorxbul; intervertebral disc disorders; other back problems (20 sources)Spondylosis without myelopathy or radiculopathy, lumbar region; Translations: [Other intervertebraldisc degeneration, lumbar region]Onset: 18-83-4337FmtziapJurtqiqhzrr; intervertebral disc disorders; other back problems (17 sources)Spinal stenosis, lumbar region without neurogenic claudication; Translations: [Radiculopathy, lumbar region]Onset: 38-51-2646MvwlnbtvVigtjrh and strains (4 sources)Lower back injury; Translations: [Strain of muscle, fascia and tendon of lower back, initial encounter]25-94-2783HebutynmEwurqlgjrof injury; contusion (6 sources)Contusion of lower back and pelvis, initial encounter; Translations: [Injury of conjunctiva and corneal abrasion without foreign body, right eye, initial encounter]Onset: 87-87-6262SuxptcmqVlfietr disorders (2 sources)Hypothyroidism; Translations: [Hypothyroidism, unspecified]07-02-2024 ChronicUnclassified (3 sources)LOW BACK PAIN, UNSPECIFIED; Translations: [LOW BACK PAIN, UNSPECIFIED]Onset: 26-30-7118Darupxsdtnxq (2 sources)Medication Problem; Translations: [Medication Problem]Onset: 39-45-8156Zospadooyubf (1 source)Eye PainOnset: 33-79-1158Inkqgkfdwdke (1 source)right eye issueOnset: 03-18-2024 Past or Other Problems Problem ClassificationProblemDateDocumented DateEpisodic/ChronicBlindness and vision defects (20 sources)Diplopia; Translations: [Diplopia]Onset: EpisodicConditions associated with dizziness or vertigo (20 sources)Vertigo; Translations: [Dizziness and giddiness]Onset: 10-27-2023 71-85-7452UbzqebckV Codes: Fall (1 source)Unspecified fall, initial encounter; Translations: [UNSPECIFIED FALL INITIAL ENCOUNTER]Onset: 93-81-3366PbgnlqslRpadlfjm of upper limb (20 sources)Fracture of radial neck; Translations: [Displaced fracture of neck of unspecified radius, initial encounter for closed fracture]Onset: 03-11-2023 48-22-5566AmynvwvuCcgw disorders (20 sources)Mood disordersOnset: Other aftercare (1 source)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; Translations: [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 CURRENT USE OF INSULIN]Onset: 70-09-5591NpqauckaPehfd aftercare (1 source)senior living (current) use of aspirin; Translations: [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 CURRENT USE OF ASPIRIN]Onset: 06-72-7301OcfptpisJndom aftercare (1 source)terminal clerk (current) use of oral hypoglycemic drugs; Translations: [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 USE ORAL HYPOGLYCEMIC DX]Onset: 92-24-9932JzbpeudwAmicv aftercare (1 source)Other oil 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; Translations: [OTH 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 CURRENT DRUG THERAPY]Onset: 94-78-0699YuotkkolOpfxu aftercare (20 sources)Long-term current use of insulin; Translations: [senior living (current) use of insulin]Onset: 959003-14-9245FjqsbhzpKhvgt and unspecified benign neoplasm (20 sources)Adenomatous polyp of colon ; Translations: [Benign neoplasm of ascending colon]Onset: 075786-96-7802PtzltobkQomyr and unspecified benign neoplasm (20 sources)History of polyp of colon; Translations: [Personal history of colonic polyps]Onset: 086580-39-6348QophiqfdJhuox and unspecified benign neoplasm (20 sources)Benign neoplasm of colon; Translations: [Benign neoplasm of colon, unspecified]Onset: 472449-40-1223IwlykbrhLguec bone disease and musculoskeletal deformities (20 sources)Osteopenia; Translations: [Other specified disorders of bone density and structure, unspecified site]Onset: 643328-25-7810XiezaaedPrbkn connective tissue disease (1 source)Arthrodesis status; Translations: [ARTHRODESIS STATUS]Onset: 07-85-2385ErbymuteQtvxg connective tissue disease (20 sources)Trigger thumb of left hand; Translations: [Trigger thumb, left thumb]Onset: 624644-32-3379ElrmpqpsSvaxz connective tissue disease (20 sources)Acquired trigger finger; Translations: [Trigger finger, unspecified finger]Onset: 813334-34-2434BdjderylXliyv connective tissue disease (2 sources)Iliopsoas bursitis of right hip; Translations: [Other bursitis of hip, right hip]04-55-5206TdbftefdNnqkn diseases of veins and lymphatics (20 sources)Peripheral venous insufficiency; Translations: [Venous insufficiency (chronic) (peripheral)]Onset: 257987-41-5872WwdvhhodIhytn eye disorders (20 sources)Lower eyelid ectropion; Translations: [Unspecified ectropion of unspecified eye, unspecified eyelid]Onset: 489068-90-0235HxlshzbeQmvwl eye disorders (20 sources)Epiphora; Translations: [Unspecified epiphora, unspecified side] Onset: 249894-83-4796JrmzcowqLcekp injuries and conditions due to external causes (20 sources)History of fall; Translations: [History of falling]Onset: 10-02-2015 53-57-6151KyqsrkvqRjbmb non-traumatic joint disorders (20 sources)Pain in elbow; Translations: [Pain in unspecified elbow]Onset: 615710-18-5447ZizfkcnxOxoum nutritional; endocrine; and metabolic disorders (20 sources)Cholesterol level - finding; Translations: [Lipoprotein deficiency] Onset: 12-14-2022 Resolved: 878587-73-8371SdycgzjJlakhktt codes; unclassified (1 source)Insomnia, unspecified; Translations: [INSOMNIA UNSPECIFIED]Onset: 32-29-4129JolednslIezzoltu codes; unclassified (2 sources)Localized edema; Translations: [Localized edema]Onset: 09-28-2022 EpisodicResidual codes; unclassified (20 sources)Insomnia; Translations: [Insomnia, unspecified]Onset: 06-10-2015 62-39-4373PnqqrhucNpfmrpvc codes; unclassified (20 sources)Family history of malignant neoplasm of gastrointestinal tract; Translations: [Family history of malignant neoplasm of digestive organs]Onset: 796935-12-0804KrmajskiVflypldcb and history of mental health and substance abuse codes (20 sources)Ex-smoker; Translations: [Personal history of nicotine dependence] Onset: 792540-60-7173YkdaktugXvrmt and face fractures (20 sources)Closed fracture of orbital floor (blow-out); Translations: [Fracture of orbital floor, unspecified side, initial encounter for closed fracture] Onset: 254962-95-5834JdjhlirjJioxejl disorders (20 sources)Sick-euthyroid syndrome; Translations: [Sick-euthyroid syndrome] Onset: 359159-55-0943RldrjykpRpjqdkrwetjn (1 source)LOW BACK PAIN, UNSPECIFIED; Translations: [LOW BACK PAIN, UNSPECIFIED] Onset: 10-30-2021 Results Test NameValueInterpretationReference RangeFacilityALBUMIN, RANDOM URINE W/CREATININEon 01-19-4775WCNAWML, URINE0.3 mg/dLNormalSee Note:Dojo Comment on above:Result Comment: Reference Range: Reference Range Not establishedPerformed By: #### 0189, 71246, 7600 #### [facility] [place] [address] Personal Injury Law Specialist: Cezar Singh MDALBUMIN/CREATININE RATIO, RANDOM URINE8 mg/g [...] within a diagnostic category.Performed By: #### 6517, 69118, 7600 #### [facility] [place] [address] Personal Injury Law Specialist: Cezar Singh MDCreatinine (U) [Mass/Vol]40 mg/qLJcxbkd59-123 [facility] DiagnosticsComment on above:Performed By: #### 6517, 31346, 7600 #### [facility] [place] [address] Personal Injury Law Specialist: Cezar RAZOOMPREHENSIVE METABOLIC PANELon 2025 Albumin [Mass/Vol]4.2 g/dLNormal3.6-5.1Quest DiagnosticsComment on above: Performed By: #### 6517, 99390, 7600 #### [facility] [place] [address] Personal Injury Law Specialist: Cezar Singh MDAlbumin/Globulin [Mass ratio]1.6 {ratio}Normal 1.0-2.5Quest DiagnosticsComment on above:Performed By: #### 6517, 54265, 7600 #### [facility] [place] [address] Personal Injury Law Specialist: Cezar Singh MDALP [Catalytic activity/Vol]85 U/EHehmll21-256 [facility] DiagnosticsComment on above:Performed By: #### 6517, 40314, 7600 #### [facility] [place] [address] Personal Injury Law Specialist: Cezar Singh MDALT [Catalytic activity/Vol]12 U/LNormal6-29 [facility] DiagnosticsComment on above:Performed By: #### 6517, 65891, 7600 #### [facility] of [address], [address] [place] [address] Personal Injury Law Specialist: Cezar Singh MDAST [Catalytic activity/Vol]13 U/RXpwrpx83-24 [facility] DiagnosticsComment on above:Performed By: #### 6517, 59270, 7600 #### [facility] of [address], [address] [place] [address] Personal Injury Law Specialist: Cezar Singh MDBilirubin [Mass/Vol]0.4 mg/dLNormal0.2-1.2 [facility] DiagnosticsComment on above:Performed By: #### 6517, 65323, 7600 #### [facility] of [address], [address] [place] [address] Personal Injury Law Specialist: Cezar Singh MDBUN/CREATININE RATIOSEE NOTE:Normal6-22Quest DiagnosticsComment on above:Result Comment: Not Reported: BUN and Creatinine are within reference range.Performed By: #### 6517, 33475, 7600 #### [facility] of [address], [address] [place] [address] Personal Injury Law Specialist: Cezar Singh MDCalcium [Mass/Vol]9.4 mg/dLNormal8.6-10.4Quest DiagnosticsComment on above:Performed By: #### 6517, 44409, 7600 #### [facility] of [address], [address] [place] [address] Personal Injury Law Specialist: Cezar Singh MDChloride [Moles/Vol]102 mmol/DSndmah02-132 [facility] DiagnosticsComment on above:Performed By: #### 6517, 63347, 7600 #### [facility] of [address], [address] [place] [address] Personal Injury Law Specialist: Cezar Singh MDCO2 [Moles/Vol]28 mmol/RJinuxl47-73Ntaio DiagnosticsComment on above:Performed By: #### 6517, 08834, 0 #### [facility] [place] [address] Personal Injury Law Specialist: Cezar Singh MDCreatinine [Mass/Vol]0.90 mg/dLNormal0.60-0.95 [facility] DiagnosticsComment on above:Performed By: #### 6517, 61231, 0 #### [facility] [place] [address] Personal Injury Law Specialist: Cezar Singh MDGFR/1.73 sq M.predicted among non-blacks MDRD (S/P/Bld) [Vol rate/Area]65 mL/min/{1.73_m2}Normal> OR = 60[facility] Comment on above:Performed By: #### 6517, , 0 #### [facility] [place] [address] Personal Injury Law Specialist: Cezar Singh MDGlobulin (S) [Mass/Vol]2.7 g/dLNormal1.9-3.7 [facility] DiagnosticsComment on above:Performed By: #### 6517, 60597, 0 #### [facility] [place] [address] Personal Injury Law Specialist: Cezar Singh MDGlucose [Mass/Vol]129 mg/aKBhmn41-82Vlisk DiagnosticsComment on above:Result Comment: Fasting reference interval For someone without known diabetes, a glucose value >125 mg/dL indicates that they may have diabetes and this should be confirmed with a follow-up test.Performed By: #### 6517, 74193, 7600 #### [facility] [place] [address] Personal Injury Law Specialist: Cezar Singh MDPotassium [Moles/Vol]4.0 mmol/LNormal3.5-5.3 [facility] DiagnosticsComment on above:Performed By: #### 6517, 88510, 7600 #### [facility] of [address], [address] [place] [address] Personal Injury Law Specialist: Cezar Singh MDProtein [Mass/Vol]6.9 g/dLNormal6.1-8.1Quest DiagnosticsComment on above:Performed By: #### 6517, 72683, 7600 #### [facility] of [address], [address] [place] [address] Personal Injury Law Specialist: Cezar Singh MDSodium [Moles/Vol]142 mmol/CUfdnnb778-724Tcpzn DiagnosticsComment on above:Performed By: #### 6517, 79017, 7600 #### [facility] of [address], [address] [place] [address] Personal Injury Law Specialist: Cezar Singh MDUrea nitrogen [Mass/Vol]17 mg/dLNormal7-25 [facility] DiagnosticsComment on above:Performed By: #### 6517, 58368, 0 #### [facility] of [address], [address] [place] [address] Personal Injury Law Specialist: Cezar Singh MDLIPID PANEL, [facility] 61-67-7658Njrmmuzchnq [Mass/Vol]154 mg/dLNormal<200Quest DiagnosticsComment on above:Order Comment: FASTING:YES FASTING: YESPerformed By: #### 6517, 20222, 0 #### [facility] of [place] [address] Personal Injury Law Specialist: Cezar Singh MDCholesterol in HDL [Mass/Vol]55 mg/dLNormal> OR = 50Quest DiagnosticsComment on above:Order Comment: FASTING:YES FASTING: YESPerformed By: #### 6517, 84333, 7600 #### [facility] of [place] [address] Personal Injury Law Specialist: Cezar Singh MDCholesterol in LDL [Mass/Vol]73 mg/dLNormal [...] of LDL-C. Tien TUTTLE et al. ARON. 2013;310(09): 8240-2449 (http://education.[employer].Care.com/faq/OPP151)Performed By: #### 6517, 79555, 7600 #### [facility] [address], [address] [place] [address] Personal Injury Law Specialist: Cezar RAZOholesterol.total/Cholesterol in HDL [Mass ratio]2.8 {ratio}Normal<5.0Quest DiagnosticsComment on above:Order Comment: FASTING:YES FASTING: YESPerformed By: #### 6517, 86133, 7600 #### [facility] [address], [address] [place] [address] Personal Injury Law Specialist: Cezar COTTER HDL ZFISWPNIXOV20 mg/dL (calc)Normal<130 [facility] DiagnosticsComment on above:Order Comment: FASTING:YES FASTING: YESResult Comment: For patients with diabetes plus 1 major ASCVD risk factor, treating to a non-HDL-C goal of <100 mg/dL (LDL-C of <70 mg/dL) is considered a therapeutic option.Performed By: #### 6517, 76815, 7600 #### [facility] [address], [address] [place] [address] Personal Injury Law Specialist: Cezar Singh MDTriglyceride [Mass/Vol]191 mg/dLHigh<150Quest DiagnosticsComment on above:Order Comment: FASTING:YES FASTING: YESPerformed By: #### 6517, 65385, 7600 #### [facility] [address], [address] [place] [address] Personal Injury Law Specialist: Cezar Singh MDLaboratory - Chemistry and Chemistry - challengeon 90-32-8146Jtnsjym [Mass/Vol]4.2 g/dL3.6 - 5.1 g/dLNONevada Regional Medical Center Albumin/Globulin [Mass ratio]1.6 {ratio}[facility] HealthcareALP [Catalytic activity/Vol]85 U/L37 - 153 U/LNOMS HealthcareALT [Catalytic activity/Vol]12 U/L 6 - 29 U/LNOMS HealthcareAST [Catalytic activity/Vol]13 U/L10 - 35 U/LNOMS HealthcareBilirubin [Mass/Vol]0.4 mg/dL0.2 - 1.2 mg/dLNONH HealthcareCalcium [Mass/Vol]9.4 mg/dL8.6 - 10.4 mg/dLSt. Lukes Des Peres HospitalChloride [Moles/Vol]102 mmol/L 98 - 110 mmol/LNOMS HealthcareCO2 [Moles/Vol]28 mmol/L20 - 32 mmol/LNOMS HealthcareCreatinine [Mass/Vol]0.9 mg/dL0.60 - 0.95 mg/dLSt. Lukes Des Peres HospitalGFR/1.73 sq M.predicted among non-blacks MDRD (S/P/Bld) [Vol rate/Area]65 mL/min/{1.73_m2}> OR = 60 mL/min/1.28d1TUYQSt. Lukes Des Peres HospitalGlobulin (S) [Mass/Vol]2.7 g/dLNONevada Regional Medical CenterGlucose [Mass/Vol]129 mg/kPYdub79 - 99 mg/dLSt. Lukes Des Peres Hospital Comment on above: Fasting reference interval For someone without known diabetes, a glucose value >125 mg/dL indicates that they may have diabetes and this should be confirmed with a follow-up test. Potassium [Moles/Vol]4 mmol/L3.5 - 5.3 mmol/LNOMS HealthcareProtein [Mass/Vol] 6.9 g/dL6.1 - 8.1 g/dLNONevada Regional Medical CenterSodium [Moles/Vol]142 mmol/L135 - 146 mmol/LNOMS HealthcareUrea nitrogen [Mass/Vol]17 mg/dL7 - 25 mg/dLNONevada Regional Medical Center Urea nitrogen/Creatinine [Mass ratio]SEE NOTE:[facility] HealthcareComment on above: Not Reported: BUN and Creatinine are within reference range. Lipid 1996 panelon 69-85-9304Wysziudcooy [Mass/Vol]154 mg/dLNINF - 200 mg/dLNONevada Regional Medical CenterCholesterol in HDL [Mass/Vol]55 mg/dL> OR = 50[facility] Cholesterol in LDL [Mass/Vol]73 mg/dLmg/dL (calc)[facility] HealthcareComment on above:Reference range: <100 Desirable range <100 mg/dL for primary prevention; <70 mg/dL for patients with CHD or diabetic patients with > or = 2 CHD risk factors. LDL-C is now calculated using the Jefe calculation, which is a validated novel method providing better accuracy than the Friedewald equation in the estimation of LDL-C. Tien TUTTLE et al. ARON. 2013;310(19): 6952-0645 (http://education.Torbit/faq/WKQ016) Cholesterol non HDL [Mass/Vol]99 mg/dLNIVanderbilt University HospitalComment on above:For patients with diabetes plus 1 major ASCVD risk factor, treating to a non-HDL-C goal of <100 mg/dL (LDL-C of <70 mg/dL) is considered a therapeutic option. Cholesterol.total/Cholesterol in HDL [Mass ratio]2.8 {ratio}[facility] Triglyceride [Mass/Vol]191 mg/dLHighNINF - 150 mg/dLSt. [facility]ukes [facility] Hospital Microalbumin/Creatinine ratio panel (U)on 21-41-3044Pjyfauc DL <= 20 mg/L (U) [Mass/Vol]0.3 mg/dLSee Note:[facility] HealthcareComment on above:Reference Range: Reference Range Not established Albumin/Creatinine (U) [Mass ratio]8NINFSt. Lukes Des Peres HospitalComment on above: The ADA defines abnormalities in [...] category. Creatinine (U) [Mass/Vol]40 mg/dL20 - 275 mg/dLSt. Lukes Des Peres HospitalNo Panel Informationon 86-93-0231Ywtdfveparrvfg and review of laboratory resultsAbnormal St. [facility] HospitalFASTING:YES FASTING: YESQUESTPerforming Organization Information Site ID: QPT Name: [facility] Address: [address] [place] [address], [address] [place] [phone] Director: Cezar OSUNANortheast Regional [facility] Center HealthcareLaboratory - Hematology and Cell countson 17-24-3580WaJ8f (Bld) [Mass fraction]7.8 %NOM HealthcareNo Panel Informationon 83-12-4356LXGF HealthcareXR Thoracic spine 2 Viewson 12-95-4115S[address] [address] XRay Report Signed Patient: KONRAD GUZMAN MR#: [id number] : 1945 Acct:[id number] Age/Sex: 79 / F ADM Date: 01/24/25 Loc: [facility] Attending Dr: Rylee Kenyon NP Ordering Physician: Rylee Kenyon NP Date of Service: 01/24/25 Procedure(s): XR thoracic spine 2V Accession Number(s): [id number] cc: KOFI BOWERS ; Rylee Kenyon NP [place] [id number] Patient Name: KONRAD GUZMAN MRN: [id number] date: 1945 Sex: F Assigned Patient Location: [facility] Current Patient Location: [facility] Accession/Order Number: [id number] Exam Date: 01/24/2025 12:17 Report Date: 01/24/2025 [...] Ramírez M.D. 01/24/2025 12:21 PM Dictation Location: [place] [address] Electronically authenticated by: [id number] Y Date: 01/24/2025 12:21 Dictated By: Skye Ramírez M.D. 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: Conveyor Technician:TBHRadiology, Radiologist, - 01/24/2025 [place] [address] XRay Report Signed Patient: KONRAD GUZMAN MR#: [id number] : 1945 Acct:[id number] Age/Sex: 79 / F ADM Date: 01/24/25 Loc: [facility] Attending Dr: Rylee Kenyon NP Ordering Physician: Rylee Kenyon NP Date of Service: 01/24/25 Procedure(s): XR thoracic spine 2V Accession Number(s): [id number] cc: KOFI BOWERS ; Rylee Kenyon NP [place] [address] Patient Name: KONRAD GUZMAN MRN: [facility]:[id number] date: 1945 Sex: F Assigned Patient Location: [facility] Current Patient Location: [facility] Accession/Order Number: [id number] Exam Date: 01/24/2025 12:17 Report Date: 01/24/2025 [...] Ramírez M.D. 01/24/2025 12:21 PM Dictation Location: [place] [address] Electronically authenticated by: [id number] Y Date: 01/24/2025 12:21 Dictated By: Skye Ramírez M.D. 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: Conveyor Technician: [facility] HospitalRadiology Study observation (narrative)[facility] HealthcareXR Thoracic spine 2 ViewsOrdered By: Radiologist Radiology on 00-25-4784OJFRSt. Lukes Des Peres Hospital Work Phone: Laboratory - Hematology and Cell countson 01-14-2025 HbA1c (Bld) [Mass fraction]6.4 %[facility] HospitalNo Panel Informationon 01-14-2025 Interpretation and review of laboratory resultsAbECU Health Medical CenterLaboratory - Hematology and Cell countson 39-24-8834WmH9m (Bld) [Mass fraction]6.4 %[facility] HospitalNo Panel Informationon 75-29-6054Ycvscbzpgpnblh and review of laboratory resultsAbECU Health Medical CenterALL BASIC METABOLIC PANELon 55-21-5572Xcgca gap [Moles/Vol]11.6 mmol/LNOMS Healthcare Calcium [Mass/Vol]9 mg/dL8.5 - 10.1 mg/dLLDS HOSPITAL HealthcareChloride [Moles/Vol]106 mmol/L98 - 107 mmol/LNOMS HealthcareCO2 [Moles/Vol]30.2 mmol/L21.0 - 32.0 mmol/L [facility] HospitalCreatinine [Mass/Vol]0.99 mg/dL0.55 - 1.02 mg/dLSt. Lukes [facility] Hospital GFR/1.73 sq M.predicted CKD-EPI (S/P/Bld) [Vol rate/Area]>60>=60 mL/min/1.73m 2 [facility] HealthcareGlucose [Mass/Vol]132 mg/lJXttf11 - 106 mg/dLSt. Lukes [facility]res Hospital Interpretation and review of laboratory resultsAbMunson Healthcare [facility] Memorial HospitalPotassium [Moles/Vol]3.8 mmol/L3.5 - 5.1 mmol/LNOMS HealthcareSodium [Moles/Vol]144 mmol/L 136 - 145 mmol/LNOMS HealthcareTBH EGFR-NON AF IDDRGZUO16Soq>=60 mL/min/1.73m 2 NOMS HealthcareUrea nitrogen [Mass/Vol]15 mg/dL7.0 - 18.0 mg/dLNOMS Healthcare Urea nitrogen/Creatinine [Mass ratio]15.2 mg/mgNOMS HealthcareCLINISYNCNOMS HealthcareECG 12-LEADon 00-69-1134[place]li[place] [address] Electrocardiograph Report Signed Patient: KONRAD GUZMAN MR#: [id number] : 1945 Acct:[id number] Age/Sex: 79 / F ADM Date: 07/18/24 Loc: PST Attending Dr: Jenny Maya M.D. Ordering Physician: Jenny Maya M.D. Date of Service: 07/18/24 Procedure(s): ECG 12 lead Accession Number(s): [id number] cc: [facility] Test Date: 2024-07-18 Pat Name: KONRAD GUZMAN Department: Room: - Gender: Female Exerciser: : 1945 Requested By: KOFI BOWERS Order Number: [id number] Reading MD: MEGA ACUÑA Measurements Intervals Center Rate: 84 P: 13 IL: 158 QRS: 70 QRSD: 98 T: 66 QT: 379 QTc: 450 Interpretive Statements SINUS RHYTHM WITH SINUS ARRHYTHMIA Compared to ECG 06/26/2021 12:41:20 Ventricular premature complex(es) no longer present Electronically Signed On 07-18-2024 22:55:56 EST by MEGA ACUÑA Dictated By: Mega Acuña D.O. Signed By: 07/18/24 2256 DD/ 1038 TD/TT: Conveyor Technician:TBHRadiology, Radiologist, - 07/18/2024 [place] [address] Electrocardiograph Report Signed Patient: KONRAD GUZMAN MR#: [id number] : 1945 Acct:[id number] Age/Sex: 79 / F ADM Date: 07/18/24 Loc: PST Attending Dr: Jenny Maya M.D. Ordering Physician: Jenny Maya M.D. Date of Service: 07/18/24 Procedure(s): ECG 12 lead Accession Number(s): [id number] cc: [facility] Test Date: 2024-07-18 Pat Name: KONRAD GUZMAN Department: Room: - Gender: Female Exerciser: : 1945 Requested By: KOFI BOWERS Order Number: [id number] Reading MD: MEGA ACUÑA Measurements Intervals Center Rate: 84 P: 13 IL: 158 QRS: 70 QRSD: 98 T: 66 QT: 379 QTc: 450 Interpretive Statements SINUS RHYTHM WITH SINUS ARRHYTHMIA Compared to ECG 06/26/2021 12:41:20 Ventricular premature complex(es) no longer present Electronically Signed On 07-18-2024 22:55:56 EST by MEGA ACUÑA Dictated By: Mega Acuña D.O. Signed By: 07/18/24 2256 DD/ 1038 TD/TT: Conveyor Technician: NOMBrooklyn HealthcareRadiology Study observation (narrative)NOM HealthcareECG 12-LEAD Ordered By: Radiologist Radiology on 72-32-2152[facility] Work Phone: ct Lumbar spine WO contraston 72-07-7220ZipBridgewater, [place] [address] CT Scan Report Signed Patient: KONRAD GUZMAN MR#: [id number] : 1945 Acct:[id number] Age/Sex: 79 / F ADM Date: 05/24/24 Loc: CT Attending Dr: Jenny Maya M.D. Ordering Physician: Jenny Maya M.D. Date of Service: 05/24/24 Procedure(s): CT lumbar spine wo con Accession Number(s): [id number] cc: KOFI BOWERS [place] [phone] Patient Name: KONRAD GUZMAN MRN: [id number] date: 1945 Sex: F Assigned Patient Location: CT Current Patient Location: Accession/Order Number: [id number] Exam Date: 05/24/2024 13:23 Report Date: 05/25/2024 [...] M.D. Signed By: 05/25/24902 DD/ 9 TD/TT: Conveyor Technician:TBHRadiology, Radiologist, - 05/25/2024 [place] [address] CT Scan Report Signed Patient: KONRAD GUZMAN MR#: [id number] : 1945 Acct:[id number] Age/Sex: 79 / F ADM Date: 05/24/24 Loc: CT Attending Dr: Jenny Maya M.D. Ordering Physician: Jenny Maya M.D. Date of Service: 05/24/24 Procedure(s): CT lumbar spine wo con Accession Number(s): [id number] cc: KOFI BOWERS [place] [id number] Patient Name: KONRAD GUZMAN MRN: [id number] date: 1945 Sex: F Assigned Patient Location: CT Current Patient Location: Accession/Order Number: [id number] Exam Date: 05/24/2024 13:23 Report Date: 05/25/2024 [...] M.D. Signed By: 05/25/24902 DD/ 9 TD/TT: Conveyor Technician: [facility] Thoracic spine WO contraston 56-87-1120EvjBridgewater, [place] [address] CT Scan Report Signed Patient: KONRAD GUZMAN MR#: [id number] : 1945 Acct:[id number] Age/Sex: 79 / F ADM Date: 05/24/24 Loc: CT Attending Dr: Jenny Maya M.D. Ordering Physician: Jenny Maya M.D. Date of Service: 05/24/24 Procedure(s): CT thoracic spine wo con Accession Number(s): [id number] cc: KOFI BOWERS [place] [id number] Patient Name: KONRAD GUZMAN MRN: [id number] date: 1945 Sex: F Assigned Patient Location: CT Current Patient Location: Accession/Order Number: [id number] Exam Date: 05/24/2024 13:23 Report Date: 05/25/2024 [...] M.D. Signed By: 05/25/24902 DD/ 9 TD/TT: Conveyor Technician:TBHRadiology, Radiologist, - 05/28/2024 [place] [address] CT Scan Report Signed Patient: KONRAD GUZMAN MR#: [id number] : 1945 Acct:[id number] Age/Sex: 79 / F ADM Date: 05/24/24 Loc: CT Attending Dr: Jenny Maya M.D. Ordering Physician: Jenny Maya M.D. Date of Service: 05/24/24 Procedure(s): CT thoracic spine wo con Accession Number(s): [id number] cc: KOFI BOWERS [place] [id number] Patient Name: KONRAD GUZMAN MRN: [facility]:[id number] date: 1945 Sex: F Assigned Patient Location: CT Current Patient Location: Accession/Order Number: [id number] Exam Date: 05/24/2024 13:23 Report Date: 05/25/2024 [...] M.D. Signed By: 05/25/24902 DD/ 9 TD/TT: Conveyor Technician: CHANTAL HealthcareNo Panel InformationOrdered By: Radiologist Radiology on 39-82-4724YFDD [facility] Work Phone: no Panel Informationon 22-81-9174Kxljbhrjw Study observation (narrative)[facility]OM[facility] HealthcareNo Panel InformationOrdered By: Radiologist Radiology on 06-02-3492ONNGSt. Lukes [facility] Work Phone: No Panel Informationon 42-58-5393Hcqlrvjma Study observation (narrative)NOMS HealthcareXR LUMBAR SPINE MIN 4Von 36-31-6641[place]brBridge[place], [place] [address] XRay Report Signed Patient: KONRAD GUZMAN MR#: [id number] : 1945 Acct:[id number] Age/Sex: 79 / F ADM Date: 05/10/24 Loc: RAD Attending Dr: Rylee Kenyon NP Ordering Physician: Rylee Kenyon NP Date of Service: 05/10/24 Procedure(s): XR lumbar spine min 4V Accession Number(s): [id number] cc: KOFI BOWERS ; Rylee Kenyon NP [place] [address] Patient Name: KONRAD GUZMAN MRN: [id number] date: 1945 Sex: F Assigned Patient Location: [facility] Current Patient Location: [facility] Accession/Order Number: [id number] Exam Date: 05/10/2024 13:28 Report Date: 05/11/2024 [...] Signed By: 05/11/24 1021 DD/ 1018 TD/TT: Conveyor Technician:LOUISEadiology, Radiologist, - 05/11/2024 [place] [address] XRay Report Signed Patient: KONRAD GUZMAN MR#: [id number] : 1945 Acct:[id number] Age/Sex: 79 / F ADM Date: 05/10/24 Loc: [facility] Attending Dr: Rylee Kenyon NP Ordering Physician: Rylee Kenyon NP Date of Service: 05/10/24 Procedure(s): XR lumbar spine min 4V Accession Number(s): [id number] cc: KOFI BOWERS ; Rylee Kenyon NP [place] [address] Patient Name: KONRAD GUZMAN MRN: [id number] date: 1945 Sex: F Assigned Patient Location: [facility] Current Patient Location: [facility] Accession/Order Number: [id number] Exam Date: 05/10/2024 13:28 Report Date: 05/11/2024 [...] Signed By: 05/11/24 1021 DD/ 1018 TD/TT: Conveyor Technician: CHANTAL Smith Thoracic spine 2 Viewson [id number] [address] XRay Report Signed Patient: KONRAD GUZMAN MR#: [id number] : 1945 Acct:[id number] Age/Sex: 79 / F ADM Date: 05/10/24 Loc: [facility] Attending Dr: Rylee Kenyon NP Ordering Physician: Rylee Kenyon NP Date of Service: 05/10/24 Procedure(s): XR thoracic spine 2V Accession Number(s): [id number] cc: KOFI BOWERS ; Rylee Kenyon NP [place] [address] Patient Name: KONRAD GUZMAN MRN: [id number] date: 1945 Sex: F Assigned Patient Location: [facility] Current Patient Location: [facility] Accession/Order Number: [id number] Exam Date: 05/10/2024 13:28 Report Date: 05/11/2024 [...] Signed By: 05/11/24 1021 DD/ 1018 TD/TT: Conveyor Technician:TBHRadiology, Radiologist, MD - 05/11/2024 [place] [address] XRay Report Signed Patient: KONRAD GUZMAN MR#: [id number] : 1945 Acct:[id number] Age/Sex: 79 / F ADM Date: 05/10/24 Loc: RAD Attending Dr: Rylee Kenyon NP Ordering Physician: Rylee Kenyon NP Date of Service: 05/10/24 Procedure(s): XR thoracic spine 2V Accession Number(s): [id number] cc: KOFI BOWERS ; Rylee Kenyon NP [address] [place] [address] Patient Name: KONRAD GUZMAN MRN: [id number] date: 1945 Sex: F Assigned Patient Location: [facility] Current Patient Location: [facility] Accession/Order Number: [id number] Exam Date: 05/10/2024 13:28 Report Date: 05/11/2024 [...] Signed By: 05/11/24 1021 DD/ 1018 TD/TT: Conveyor Technician: CHANTAL Saavedra retinopathy [Minimum Data Set]on 05-03-2024 Interpretation and review of laboratory resultsAbMunson Healthcare [facility] Microscopic observation Cyto stain Nom (Cvx)abnErlanger [facility] Radiology Study observation (narrative)[facility] HospitalHbA1c (Bld) [Mass fraction]on 92-01-5613BPAHSt. Lukes Des Peres HospitalLaboratory - Hematology and Cell countson 90-57-6704FkC0t (Bld) [Mass fraction]7.0 %[facility]36on Follow-up in 3 months as planned. ThanksNormalUniFostoria City HospitalOffice Visiton 20-23-5968Mbqljy-up [id number] Konrad Guzman 1945 Provider Department Center 01/03/2023 URI [facility] PAULA [facility] Family History Problem Relation Age of Onset Diabetes Father Heart disease Father Coronary artery disease Father Coronary artery disease Brother Family Status - Relation Status Age at Father Brother Level of Service:[address] [place] OFFICE/OUTPATIENT ESTABLISHED LOW MDM 20-29 MIN Reason for Visit and Comments: Medication Problem [65]NormalUnLake County Memorial Hospital - WestOffice Visiton 64-40-7375Fyxxrd-up [id number] Konrad Guzman 1945 Provider Department Center 09/28/2022 OSCAR TOWNSEND PAULA Dipesh [facility] Family History Problem Relation Age of Onset Diabetes Father Heart disease Father Coronary artery disease Father Coronary artery disease Brother Family Status - Relation Status Age at Father Brother Level of Service:[address]58 [place] OFFICE/OUTPATIENT ESTABLISHED LOW MDM 20-29 MIN Reason for Visit and Comments: Hypertension [217455]NormalUnLake County Memorial Hospital - WestPROF CHEM 8 (BAS METB)on 18-11-3543Znbsf gap [Moles/Vol]11.6 mmol/LNormalThe [facility] Comment on above:Performed By: #### BMP #### [facility] [address] [address] [address] Rose ChadwickCalcium [Mass/Vol]9.4 mg/dLNormal8.5-10.1The [facility] Comment on above:Performed By: #### BMP #### [facility] [address] [address] [address] Rose ChadwickChloride [Moles/Vol]101 mmol/ZJersnr85-241Hcq [facility] Comment on above:Performed By: #### BMP #### [facility] [address] [address] [address] Rose ChadwickCO2 [Moles/Vol]32.6 mmol/LCritically high21.0-32.0The [facility] HospitalComment on above:Performed By: #### BMP #### [facility] [address] [place] [address] Dr. Rose ChadwickCreatinine [Mass/Vol]0.86 mg/dLNormal0.55-1.02The [facility] HospitalComment on above:Performed By: #### BMP #### [facility] [address] [address] [address] Rose RamirezGFR-AF BURUNDIAN>60Normal>=60The [facility] HospitalComment on above:Performed By: #### BMP #### [facility] [address] [place] [address] Dr. Rose RamirezGFR-NON AF BURUNDIAN>60Normal>=60The [facility] HospitalComment on above:Performed By: #### BMP #### [facility] [address] [address] [address] Rose ChadwickGlucose [Mass/Vol]108 mg/dLCritically tscu24-678Oak [facility] HospitalComment on above:Performed By: #### BMP #### [facility] [address] [address] [address] Rose ChadwickPotassium [Moles/Vol]4.2 mmol/LNormal3.5-5.1The [facility] Comment on above:Performed By: #### BMP #### [facility] [address] [address] [address] Rose ChadwickSodium [Moles/Vol]141 mmol/VUesnnc421-004Iyo [facility] Comment on above:Performed By: #### BMP #### [facility] [address] [address] [address] Rose Alaniz nitrogen [Mass/Vol]15.0 mg/dLNormal7.0-18.0[facility] Medical CenterComment on above:Performed By: #### BMP #### [facility] [address] [address] [address] Rose ChadwickUrea nitrogen/Creatinine [Mass ratio]17.4 mg/mgNormalThe [facility] HospitalComment on above:Performed By: #### BMP #### [facility] [address] [address] [address] Rose Chadwick37on 699836-Lmlrfh an arm BP monitor, Omron brand is preferred -Check blood pressure at least once daily 2-3 hours after taking medications - Stop taking Losartan -Start taking Losartan-hydrochlorothiazide -Check labs in 1 weekNormalUniversLicking Memorial HospitalOffice Visiton 82-22-0630Tadqmd-up [id number] Konrad Guzman 1945 F Date Provider Department Center 08/31/2022 [address]-UBNNBDKYQOSCAR DEL TORO [facility] Family History Problem Relation Age of Onset Diabetes Father Heart disease Father Coronary artery disease Father Coronary artery disease Brother Family Status - Relation Status Age at Father Brother Level of Service:67846 [place] OFFICE/OUTPATIENT ESTABLISHED LOW MDM 20-29 MIN Reason for Visit and Comments: Hypertension [772393]NormalUnLake County Memorial Hospital - WestPROF CHEM 8 (BAS METB)on 62-32-7878Aybwe gap [Moles/Vol]11.9 mmol/LNormalAdams County Regional Medical Center Comment on above:Performed By: #### BMP #### [facility] [address] [address] [address] Rose ChadwickCalcium [Mass/Vol]9.0 mg/dLNormal8.5-10.1[facility] Comment on above:Performed By: #### BMP #### [facility] [address] [address] [address] Rose ChadwickChloride [Moles/Vol]103 mmol/RLiuxzu08-609Uvz [facility] Comment on above:Performed By: #### BMP #### [facility] [address] [place] [address] Dr. Rose ChadwickCO2 [Moles/Vol]30.3 mmol/MQalrjw49.0-32.0The [facility] Comment on above:Performed By: #### BMP #### [facility] [address] [place] [address] Dr. Rose ChadwickCreatinine [Mass/Vol]0.84 mg/dLNormal0.55-1.02The [facility] HospitalComment on above:Performed By: #### BMP #### [facility] [address] [place] [address] Dr. Rose ChangEGFR-AF BURUNDIAN>60Normal>=60The [facility] HospitalComment on above:Performed By: #### BMP #### [facility] [address] [place] [address] Dr. Rose RamirezGFR-NON AF BURUNDIAN>60Normal>=60The [facility] HospitalComment on above:Performed By: #### BMP #### [facility] [address] [place] [address] Dr. Rose ChadwickGlucose [Mass/Vol]119 mg/dLCritically saoa99-162Dno [facility] HospitalComment on above:Performed By: #### BMP #### [facility] [address] [place] [address] Dr. Rose ChadwickPotassium [Moles/Vol]4.2 mmol/LNormal3.5-5.1The [facility] Comment on above:Performed By: #### BMP #### [facility] [address] [address] [address] Rose ChadwickSodium [Moles/Vol]141 mmol/ICuhpmw220-099Otm [facility] Comment on above:Performed By: #### BMP #### [facility] [address] [place] [address] Dr. Rose ChadwickUrea nitrogen [Mass/Vol]13.0 mg/dLNormal7.0-18.0Ad[facility] Medical CenterComment on above:Performed By: #### BMP #### [facility] [address] [address] [address] Rose ChadwickUrea nitrogen/Creatinine [Mass ratio]15.5 mg/mgNormalThShelby Memorial HospitalComment on above:Performed By: #### BMP #### [facility] [address] [address] [address] Rose ChadwickFollow-Upon 48-44-3986Epmlzf-[id number] Konrad Guzman Enrike 1945 F Date Provider Department Center 06/01/2022 ANGELA CAMERON [facility] Family History Problem Relation Age of Onset Diabetes Father Heart disease Father Coronary artery disease Father Coronary artery disease Brother Family Status - Relation Status Age at Father Brother Level of Service:90638 [place] OFFICE/OUTPATIENT ESTABLISHED LOW MDM 20-29 MIN Reason for Visit and Comments: Hypertension [609975]NormalUnLake County Memorial Hospital - WestPROF CHEM 8 (BAS METB)on 97-15-7324Edgvq gap [Moles/Vol]11.1 mmol/LNormalAdams County Regional Medical Center Comment on above:Performed By: #### BMP #### [facility] [address] [place] [address] Dr. Rose ChadwickCalcium [Mass/Vol]9.0 mg/dLNormal8.5-10.1[facility] Comment on above:Performed By: #### BMP #### [facility] [address] [address] [address] Rose ChadwickChloride [Moles/Vol]103 mmol/ICvtlaj11-786XrkAdams County Regional Medical Center Comment on above:Performed By: #### BMP #### [facility] [address] [address] [address] Rose ChadwickCO2 [Moles/Vol]29.6 mmol/DEwuayd71.0-32.0[facility] Comment on above:Performed By: #### BMP #### [facility] [address] [place] [address] Dr. Rose ChadwickCreatinine [Mass/Vol]1.22 mg/dLCritically high0.55-1.02The [facility] HospitalComment on above:Performed By: #### BMP #### [facility] [address] [address] [address] Rose RamirezGFR-AF OZEMPPJO12 mL/min/1.90c4Rxbhrthhbj low>=60The [facility] HospitalComment on above:Performed By: #### BMP #### [facility] [address] [address] [address] Rose RamirezGFR-NON AF NNACHTCQ86 mL/min/1.42x6Ioqtmkqfzx low>=60The [facility] HospitalComment on above:Performed By: #### BMP #### [facility] [address] [place] [address] Dr. Rose ChadwickGlucose [Mass/Vol]112 mg/dLCritically uvra94-643Rnx [facility] HospitalComment on above:Performed By: #### BMP #### [facility] [address] [place] [address] Dr. Rose ChadwickPotassium [Moles/Vol]4.7 mmol/LNormal3.5-5.1The [facility] Comment on above:Performed By: #### BMP #### [facility] [address] [place] [address] Dr. Rose ChadwickSodium [Moles/Vol]139 mmol/OKafjej487-506Pov [facility] Comment on above:Performed By: #### BMP #### [facility] [address] [place] [address] Dr. Rose ChadwickUrea nitrogen [Mass/Vol]23.0 mg/dLCritically high7.0-18.0The [facility] HospitalComment on above:Performed By: #### BMP #### [facility] [address] [place] [address] Dr. Rose Alaniz nitrogen/Creatinine [Mass ratio]18.9 mg/mgNormalThe [facility] HospitalComment on above:Performed By: #### BMP #### [facility] [address] [place] [address] Dr. Rose Payton 69-21-416062Rfwpfw labs reviewed- Serum CR elevated 1.42, BUN [...] changes on voice mail message. Angela Gillespie HUMAN SERVICES MANAGER Division of Cardiology, [facility]- [phone] Pager- [phone] Email- [email or web address] City Hospital Documentationon [id number] Konrad Guzman 1945 F Date Provider Department [...] function and med changes on voice mail message.NormalUnLake County Memorial Hospital - WestOrders Onlyon 39-45-4292Noytlm [id number] Konrad Guzman 1945 F Date Provider Department Center 05/10/2022 CA AMANDA Family History Problem Relation Age of Onset Diabetes Father Heart disease Father Coronary artery disease Father Coronary artery disease Brother Family Status - Relation Status Age at Father BrotherNoalUniFostoria City HospitalPROF CHEM 8 (BAS METB)on 96-00-6172Ppaan gap [Moles/Vol]13.4 mmol/LNormalThe [facility] HospitalComment on above:Performed By: #### BMP ####[facility] Jkqhxv[address] [place], [place] [address]Dr.Yilan ChangCalcium [Mass/Vol]9.1 mg/dLNormal 8.5-10.1The [facility] HospitalComment on above:Performed By: #### BMP ####[facility] Fiosrtkgxk[address] [place], [place] [address]Dr. Yilan ChangChloride [Moles/Vol]103 mmol/SQsyjjz46-211Aae [facility] Comment on above:Performed By: #### BMP ####[facility] Wxqlumz[address] [place], [place] [address]Dr.Yilan ChangCO2 [Moles/Vol]28.3 mmol/L Amtexo33.0-32.0The [facility] HospitalComment on above:Performed By: #### BMP ####[facility] Gkryhdux[address] [place], [place] [address]Dr. Yilan ChangCreatinine [Mass/Vol]1.42 mg/dLCritically high0.55-1.02The [facility] HospitalComment on above:Performed By: #### BMP ####[facility] Kper[address]bgos[address] [place], [place] [address]Dr.Yilan ChangEGFR-AF UGCOGEGM52 mL/min/1.02i6Mjtweomyfz low>=60The [facility] HospitalComment on above: Performed By: #### BMP ####[facility] Gykliyqbbk[address] [place], [place] [address]Dr.Yilan ChangEGFR-NON AF FYEWMWDD20 mL/min/1.73m2 Critically low>=60The [facility] HospitalComment on above:Performed By: #### BMP ####[facility] Dkxgf[address] [place], [place] [address]Dr. Yilan ChangGlucose [Mass/Vol]125 mg/dLCritically tzdm75-563Hbm [facility] Comment on above:Performed By: #### BMP ####[facility] K[address]shuv[address] [place], [place] [address]Dr.Yilan ChangPotassium [Moles/Vol]5.7 mmol/LCritically high3.5-5.1[facility] Medical CenterComment on above:Performed By: #### BMP ####[facility] [address] [place] [address]Dr.Rose ChangSodium [Moles/Vol]139 mmol/AFquaah080-265Hgb [facility] HospitalComment on above:Performed By: #### BMP ####[facility] [address] [place] [address]Dr.Rose ChangUrea nitrogen [Mass/Vol]28.0 mg/dLCritically high7.0-18.0The [facility] HospitalComment on above:Performed By: #### BMP ####[facility] [address] [place] [address]Dr.Rose ChangUrea nitrogen/Creatinine [Mass ratio] 19.7 mg/mgNormalThe [facility] HospitalComment on above:Performed By: #### BMP ####[facility] [address] [place] [address]Dr. Rose ChadwickOffice Visiton 06-24-1498Vagumj-up [id number] Konrad Guzman 1945 Provider Department Center 04/28/2022 ANGELA CAMERON PAULA Rebolledo Family History Problem Relation Age of Onset Diabetes Father Heart disease Father Coronary artery disease Father Coronary artery disease Brother Family Status - Relation Status Age at Father Brother Level of Service:99807 [place] OFFICE/OUTPATIENT ESTABLISHED MOD MDM 30-39 MIN Reason for Visit and Comments: Hypertension [291970] - Patient here for 3 mo follow up hypertension. Denies chest pain and SOB.[facility] CenterAbstracton [id number] Konrad Guzman 1945 Provider Department Center 04/16/2022 CA AMANDA PAULA Rebolledo Family History Problem Relation Age of Onset Diabetes Father Heart disease Father Coronary artery disease Father Coronary artery disease Brother Family Status - Relation Status Age at Father BrotherNormalUniFostoria City HospitalPOINT OF CARE GLUCOSEon 97-89-3079Syeuuha [Mass/Vol]120 mg/dLCritically ykyg55-021SqlAdams County Regional Medical Center Comment on above:Performed By: #### POCGLUC #### [facility] [address] [address] [address] Rose ChadwickCT PELVIS WO CONon 77-82-6263AO PELVIS WO CONEXAMINATION: CT PELVIS WO CON [...] Electronically authenticated by: JOE MUKHERJEE Date: 2022-01-06 12:14[facility] HospitalXR DEXA BONE DENSITYon 75-64-9141GL DEXA BONE DENSITY EXAMINATION: XR DEXA BONE [...] Electronically authenticated by: JOE MUKHERJEE Date: 2022-01-04 11:51[facility] HospitalCT LSJEANETTE ROYAL CONon 85-53-5608VZ [facility] CONEXAMINATION: CT JUSTIN ROYAL CON, [...] Electronically authenticated by: JOE MUKHERJEE Date: 2021-11-30 16:48[facility] HospitalPROF CHEM 8 (BAS METB)on 45-18-3498Hgfac gap [Moles/Vol]13.3 mmol/LNormalThe [facility] HospitalComment on above:Performed By: #### BMP ####[facility] Adxhnkcvj[address] [place], [place] [address]Dr. Yilan ChangCalcium [Mass/Vol]8.8 mg/dLNormal8.5-10.1The [facility] HospitalComment on above:Performed By: #### BMP ####[facility] Sisnidvlmk[address] [place], [place] [address]Dr.Yilan ChangChloride [Moles/Vol]101 mmol/LNormal 98-107The [facility] HospitalComment on above:Performed By: #### BMP ####[facility] [address] [place], [place] [address]Dr.Yilan ChangCO2 [Moles/Vol]29.5 mmol/PFwczgs25.0-30.0The [facility] HospitalComment on above: Performed By: #### BMP ####[facility] X[address]weqfkkcv[address] [place], [place] [address]Dr.Yilan ChangCreatinine [Mass/Vol]0.85 mg/dLNormal 0.52-1.04The [facility] HospitalComment on above:Performed By: #### BMP ####[facility] [address]iiyubpmxq[address] [place], [place] [address]Dr. Yilan ChangEGFR-AF BURUNDIAN>60Normal>=60The [facility] HospitalComment on above: Performed By: #### BMP ####[facility] [facility] Vinw[address] [place], [place] [address]Dr.Yilan ChangEGFR-NON AF BURUNDIAN>60Normal>=60[facility] HospitalComment on above:Performed By: #### BMP ####[facility] Rwzqqgpctn[address] [place], [place] [address]Dr.Yilan ChangGlucose [Mass/Vol]116 mg/dLCritically qrjf82-174Yxx [facility] HospitalComment on above: Performed By: #### BMP ####[facility] Ruhnsbxt[address] [place], [place] [address]Dr.Yilan ChangPotassium [Moles/Vol]4.8 mmol/LNormal 3.4-5.0[facility] CenterComment on above:Performed By: #### BMP ####[facility] [address] [place] [address]Dr.Rose Chadwick Sodium [Moles/Vol]139 mmol/CYefknk161-393Sor [facility] HospitalComment on above: Performed By: #### BMP ####[facility] Nnuwtvbv[address] [place], [place] [address]Dr.Rose ChadwickUrea nitrogen [Mass/Vol]15.0 mg/dLNormal 7.0-18.0[facility] HospitalComment on above:Performed By: #### BMP ####[facility] Hfykhvrbf[address] [place], [place] [address]Dr. Rose ChadwickUrea nitrogen/Creatinine [Mass ratio]17.6 mg/mgNoAvita Health System Galion HospitalComment on above:Performed By: #### BMP ####[facility] Rl[address]vq[address] [place], [place] [address]Dr.Rose ChadwickXR LSPINE MIN 4 VIEWSon 29-93-6768JG LSPINE MIN 4 VIEWSEXAMINATION: XR LSPINE MIN [...] Electronically authenticated by: PATITO BLANCHARD Date: 2021-10-30 15:27[facility] Vital Signs Date TimeVital SignValuePerforming GhvlbcflpUncybdaj12-68-6249 11:32-0500Body eskllm481.4 cmKofi Bowers MD Work Phone: [facility] HospitalWvzazmbqpk05-13-8328 11:32-0500Body mass index (BMI) [Ratio]37.89 kg/h6VfhdowKofi Bowers MD Work Phone: [facility] HospitalXhjadtolbq10-83-5244 11:32-0500Body gtqkte79 kg Kofi Bowers MD Work Phone: [facility] CenterKwspcmphwn87-46-7068 11:32-0500Diastolic blood ojpyxgeb27 mm[Hg]Kofi Bowers MD Work Phone: [facility] CenterLsxuuswsqg38-09-4698 11:32-0500Heart rate92 /min Kofi Bowers MD Work Phone: [facility] CenterFsuciptitc12-14-2713 11:32-0500Respiratory rate16 /minDcollin Bowers MD Work Phone: [facility] CenterOreynbocjp52-10-9543 11:32-0857IlO7% (BldA) [Mass fraction]98 %Kofi Bowers MD Work Phone: [facility] CenterJzauztvnnd08-29-7433 11:32-0500Systolic blood xjewucff667 mm[Hg]Kofi Bowers MD Work Phone: [phone] CenterOppkjctioq86-28-9880 08:53-0400Body oqvbwm310.4 cmKofi Bowers MD Work Phone: [phone] HospitalXaupbepqms45-98-3148 08:53-0400Body mass index (BMI) [Ratio]37.11 kg/x5HushxtKofi Bowers MD Work Phone: [phone] HospitalWuqesrmhdj19-91-3566 08:53-0400Body nasmyl25.18 kgKofi Bowers MD Work Phone: [phone] CenterLeheiuuwoh06-43-7427 08:53-0400Diastolic blood khbwpruq85 mm[Hg]Kofi Bowers MD Work Phone: [phone] CenterSlnppwlbvx12-35-5825 08:53-0400Heart rate78 /min Kofi Bowers MD Work Phone: [phone] Medical CenterLickgkhsgh12-51-2197 08:53-9595FnO2% (BldA) [Mass fraction]96 %Kofi Bowers MD Work Phone: [phone] CenterNykbjhfrba97-94-8211 08:53-0400Systolic blood mm[Hg]oKfi Bowers MD Work Phone: [facility] HospitalLmsnavtvqy88-00-0188 10:53-0400Body unqkho647.4 cmKoif Bowers MD Work Phone: [facility] HospitalLqzbovmimh71-91-8717 10:53-0400Body mass index (BMI) [Ratio]36.13 kg/v7EknyecKofi Bowers MD Work Phone: [facility] CenterMjgkjjkudn72-23-3273 10:53-0400Body ymugnx20.92 kgKofi Bowers MD Work Phone: [facility] HospitalFevygfdqct33-97-4465 10:53-0400Diastolic blood vveoppqc24 mm[Hg]Kofi Bowers MD Work Phone: [facility] HospitalBdbjgbzfmq61-33-1482 10:53-0400Heart rate80 /min Kofi Bowers MD Work Phone: [facility] HospitalRafswfaarx82-31-2494 10:53-1735QeL3% (BldA) [Mass fraction]96 %Kofi Bowers MD Work Phone: [phone]-3165[facility] HospitalOsmvdqquoe40-04-5070 10:53-0400Systolic blood phcbozwl114 mm[Hg]Kofi Bowers MD Work Phone: [facility] HospitalFpidfdwind66-61-0107 14:10-0400Body .4 cmKofi Bowers MD Work Phone: [facility] HospitalVlikwisgem07-83-3253 14:10-0400Body mass index (BMI) [Ratio]34.76 kg/f0OakyddKofi Bowers MD Work Phone: [facility] HospitalJxyerikgnz02-30-5623 14:10-0400Body .74 kgKofi Bowers MD Work Phone: [facility] CenterXgfodraikq30-91-0716 14:10-0400Diastolic blood waklzdoa06 mm[Hg]Kofi Bowers MD Work Phone: [facility] CenterLippuedkai20-85-0328 14:10-0400Heart rate77 /min Kofi Bowers MD Work Phone: [facility] HospitalSpzryghbtv30-22-9439 14:10-0400Respiratory rate17 /minDcollin Bowers MD Work Phone: [facility] CenterUslnhmfknt00-01-9315 14:10-2448MoH7% (BldA) [Mass fraction]97 %Kofi Bowers MD Work Phone: [facility] CenterMtfvrjztud55-92-5411 14:10-0400Systolic blood mm[Hg]Kofi Bowers MD Work Phone: [facility] CenterCpbdnmukzf21-67-4028 11:07-0400Body llnaze076.4 cmKofi Bowers MD Work Phone: [facility] CenterScltjxarkj93-28-5508 11:07-0400Body mass index (BMI) [Ratio]34.57 kg/y3DwxvqwKofi Bowers MD Work Phone: [facility] CenterKfbeaunkne23-13-8604 11:07-0400Body temperature 97.5 [degF]Kofi Bowers MD Work Phone: [facility] CenterBryefgxbbd77-83-6359 11:07-0400Body avrpqz34.29 kgKofi Bowers MD Work Phone: [facility] CenterEpzkbdukwf11-64-3006 11:07-0400Diastolic blood lfdiuxbv70 mm[Hg]Kofi Bowers MD Work Phone: [facility] CenterKgiwcuyepb19-67-4302 11:07-0400Heart rate76 /min Kofi Bowers MD Work Phone: [facility] CenterIvbpslzsjb32-44-7718 11:07-5040CwL9% (BldA) [Mass fraction]97 %Kofi Bowers MD Work Phone: [facility] CenterAgynjrewnb97-12-5389 11:07-0400Systolic blood rtxgudte287 mm[Hg]Kofi Bowers MD Work Phone: [facility] CenterAbsvyjpsmr25-58-1989 13:14-0400Body .4 cmSkye FARIAS Work Phone: [facility] CenterSevnqxgjxv21-46-5455 13:14-0400Body mass index (BMI) [Ratio]35.15 kg/z4AzauuSkye FARIAS Work Phone: [facility] CenterMfdnkewzyd90-50-0767 13:14-0400Body .65 kgKaren Hemmer PA Work Phone: [facility] HospitalDjocpiefuk28-81-4420 13:14-0400Diastolic blood ojtqudcl79 mm[Hg]Skye Hemmer PA Work Phone: [facility] HospitalCswhcwbpji76-96-4892 13:14-0400Heart rate78 /min Skye Hemmer PA Work Phone: [facility] HospitalQcizkqobxj78-34-6117 13:14-0400Respiratory rate16 /minKaren Hemmer PA Work Phone: [facility] HospitalFeslpwgxle08-71-1486 13:14-4795VnF6% (BldA) [Mass fraction]97 %Skye Hemmer PA Work Phone: [facility] HospitalKyxtragpel17-41-9065 13:14-0400Systolic blood rwliskmj332 mm[Hg]Skye Hemmer PA Work Phone: [facility] HospitalMjwxefslue84-30-7361 13:21-0500Diastolic blood aehehath56 mm[Hg]Skye Hemmer PA Work Phone: [facility] HospitalAjumboarfh45-60-7871 13:21-0500Systolic blood hlgtxsgu074 mm[Hg]Skye Hemmer PA Work Phone: [facility] HospitalEgcbxgchqn07-23-2695 13:10-0500Body wgimdw829.4 cmKaren Hemmer PA Work Phone: [facility] HospitalHrtqrpvwzy71-85-6597 13:10-0500Body mass index (BMI) [Ratio]35.27 kg/a0Abcli Hemmer PA Work Phone: [facility] HospitalGbmijravim29-25-7745 13:10-0500Body dakifm36.92 kgKaren Hemmer PA Work Phone: [facility] HospitalIpbgrtvugh06-97-4307 13:10-0500Heart rate99 /min Skye Hemmer PA Work Phone: [facility] HospitalMotnpvrvky32-13-0621 13:10-0500Respiratory rate16 /minKaren Hemmer PA Work Phone: [facility] HospitalKethjksrqs41-74-6130 13:10-1321FzM2% (BldA) [Mass fraction]99 %Skye FARIAS Work Phone: [facility] HospitalOkichtwsqr01-33-8475 11:41-0500Body mass index (BMI) [Ratio]35.9 kg/r9FvrbcqzdbBluffton Hospital11-14-2024 15:19-0500 Body cdfosn648.4 cmBl[facility]11-14-2024 15:19-0500Body cecvli94.46 kgBluff[facility] Hospital11-14-2024 15:19-0500Diastolic blood mm[Hg][facility]11-14-2024 15:19-0500 Heart rate87 /minBluffton Hospital11-14-2024 15:19-7139RjJ8% (BldA) [Mass fraction]96 %[facility]11-14-2024 15:19-0500 Systolic blood pwmtrpsi260 mm[Hg][facility]08-26-2024 11:10-0400Body mass index (BMI) [Ratio]36.21 kg/l7Iicwzfbritany Bowers MD Work Phone: [facility] HospitalKiqrjiptaz68-87-4037 11:10-0400Body jjhmju44.1 kg Kofi Bowers MD Work Phone: [facility] HospitalNoougwgjgb50-43-1028 11:10-0400Diastolic blood zaddajsv03 mm[Hg]Kofi Bowers MD Work Phone: [facility] HospitalVyagunvdeb91-39-9287 11:10-0400Heart rate70 /min Kofi Bowers MD Work Phone: [facility] HospitalZnsmewtngi10-08-6149 11:10-0400Respiratory rate16 /minDcollin Bowers MD Work Phone: [facility] HospitalMmwwaayehx33-20-5771 11:10-4838KmP2% (BldA) [Mass fraction]93 %Kofi Bowers MD Work Phone: [facility] HospitalTdapalxlkj53-20-6867 11:10-0400Systolic blood oeqegfku516 mm[Hg]Kofi Bowers MD Work Phone: noRaydianceFwovcwtgha77-70-0500 13:00-0500Body arjsnb205.94 cmAbdullahi Acosta Other [employer] Other 11-13-2023 13:00-0500Body mass index (BMI) [Ratio]35.9 kg/e6QtzogAbdullahi Acosta Other [employer] Other 11-13-2023 13:00-0500Body didmuj29.18 kgAbdullahi Acosta Other [employer] Other 11-13-2023 13:00-0500Diastolic blood sfszvdyw28 mm[Hg] Abdullahi Acosta Other [employer] Other 11-13-2023 13:00-4826HvS3% (BldA) [Mass fraction]97 % Abdullahi Acosta Other [employer] Other 11-13-2023 13:00-0500Systolic blood eimmghux760 mm[Hg] Abdullahi Acosta Other [employer] Other 11-14-2022 14:00-0500Body almobh050.94 cmAbdullahi Acosta Other [employer] Other 11-14-2022 14:00-0500Body mass index (BMI) [Ratio] 37.22 kg/m0AumqcAbdullahi Acosta Other [employer] Other 11-14-2022 14:00-0500Body krsstutkvbn31.8 [degF]Abdullahi Cernaban Other [employer] Other 11-14-2022 14:00-0500Body wmcmyp47.36 kgAbdullahi Acosta Other [employer] Other 11-14-2022 14:00-0500Diastolic blood mm[Hg] Abdullahi Acosta Other [employer] Other 11-14-2022 14:00-6622KqI8% (BldA) [Mass fraction]97 % Abdullahi Acosta Other [employer] Other 11-14-2022 14:00-0500Systolic blood pwrbvbau932 mm[Hg] Abdullahi Acosta Other [employer] Other 11-18-2021 14:00-0500Body gejnjv427.94 cmAndra Ching Other [employer] Other 11-18-2021 14:00-0500Body mass index (BMI) [Ratio] 35.33 kg/q6Qlijhra Ching Other [employer] Other 11-18-2021 14:00-0500Body fqrcgmkyasl78 [degF]Olamide Ching Other [employer] Other 11-18-2021 14:00-0500Body .82 kgAndra Ching Other [employer] Other 11-18-2021 14:00-0500Diastolic blood ytfrxvue19 mm[Hg] Olamidera Ching Other [employer] Other 11-18-2021 14:00-8297JsE1% (BldA) [Mass fraction]97 % Olamide Ching Other [facility] [employer] Other 508520-31-0398 14:00-0500Systolic blood acvvvcoh221 mm[Hg] Olamide Ching Other [facility] [employer] Other Encounters Encounter DateEncounter TypeCare ProviderFacilityStart: 06-17-2025 End: 17-14-2929Csfvys Marisela Bowers MD Work Phone: [facility] MedinceStart: 06-17-2025 End: 25-70-4339Kkbcse Marisela Bowers MD Work Phone: [facility] MedinceStart: 06-17-2025 End: 03-35-4580Xcjgya outpatient visit 15 minutesKofi Bowers MD Work Phone: [facility] MedinceComment on above:Acute myofascial strain of lumbar region, subsequent encounter; Need for vaccinationStart: 06-17-2025 End: 19-12-3942xdqsrqcuyuPJMEAS B BERRYNot AvailableStart: 06-06-2025 End: 00-91-9704Putisd flowsAnthony Bowers MD Work Phone: [facility] MedinceStart: 06-06-2025 End: 74-52-5964Csexufanisha Bowers MD Work Phone: [facility] MedinceStart: 06-06-2025 End: 62-35-1788Vecuhk outpatient visit 25 minutesKofi Bowers MD Work Phone: [facility] MedinceComment on above:Acute myofascial strain of lumbar region, initial encounter (Primary Dx)Start: 06-06-2025 End: 52-37-8629lxvilfdanuGTLWAI B BERRYNot AvailableStart: 05-13-2025 End: 18-07-5613Escydiiit encounterKofi Bowers MD Work Phone: N[facility] MedinceStart: 04-29-2025 End: 13-85-4668EjpbmwOlytjm B Berry MD Work Phone: [facility] MedinceComment on above: Hypothyroidism, unspecified type ; Failed back syndromeStart: 04-22-2025 End: 34-98-7852Txkhwzriv encounterKofi Bowers MD Work Phone: [facility] MedinceStart: 04-17-2025 End: 53-41-2736Tnpjiw flowsheetKofi Bowers MD Work Phone: [facility] MedinceStart: 04-17-2025 End: 89-21-3842Mbhlkc flowsAnthony Bowers MD Work Phone: [facility] MedinceStart: 04-17-2025 End: 01-76-8763Kzzupizxq encounterKofi Bowers MD Work Phone: NOLP [facility] MedinceStart: 04-17-2025 End: 96-37-5526Qmchj of hemosiderin, Saumya Bowers MD Work Phone: NOTW HealthcareStart: 04-17-2025 End: 53-59-2628Lebyhqd encounter procedureKofi Bowers MD Work Phone: [facility] MedinceComment on above:Routine general medical examination at health care facility (Primary Dx); ACP (advance care planning); Diabetes mellitus type 2 with neurological manifestations (HCC)Start: 04-17-2025 End: 55-60-7080ofogpzqnuzEALCDJ B BERRYNot AvailableStart: 04-04-2025 End: 31-73-7533HbvlnpHshutb B Berry MD Work Phone: [facility] MedicineComment on above:Failed back syndromeStart: 03-07-2025 End: 94-29-6400iofkxlzdjuHEJDVI B BERRYNot AvailableStart: 02-25-2025 End: 16-28-2146jjvlwyobsvZeraiprEstrella Maya MDFacility:PM Dipesh Start: 02-11-2025 End: 87-70-0023Vgmflx outpatient visit 15 minutesKofi Bowers MD Work Phone: NOM[facility] CI FMComment on above:Nausea (Primary Dx); Type 2 diabetes mellitus with hyperglycemia, without long-term current use of insulin (HCC)Start: 02-11-2025 End: 88-59-2303ehufxrqyueRTHMUL B BERRYNot AvailableStart: 02-11-2025 End: 53-25-2050Vjlmqt Marisela Bowers MD Work Phone: [facility] CI FMStart: 02-11-2025 End: 42-76-8107Lhwbyo Marisela Bowers MD Work Phone: [facility] CI FMStart: 02-08-2025 End: 43-17-1399Ftksnl Marisela Bowers MD Work Phone: [facility] CI FMStart: 02-08-2025 End: 35-99-5205Dotjts Marisela Bowers MD Work Phone: [facility] CI FMStart: 02-08-2025 End: 39-55-5781Rzvopu outpatient visit 15 minutesKofi Bowers MD Work Phone: [facility] CI FMComment on above:Nausea (Primary Dx)Start: 02-08-2025 End: 97-55-1981uvaqrayrdjKSVDMW B BERRYNot AvailableStart: 02-04-2025 End: 50-48-4896wkexdeonorVbvvnraStacey Maya MDFacility:PM Dipesh Start: 01-24-2025 End: 31-81-6557Aonmgakts Result EncounterGeneric External Data ProviderNOMS External Department UnsolicitedStart: 01-24-2025 End: 28-32-0177Uzxzqffrq Result EncounterGeneric External Data ProviderNOMS External Department UnsolicitedStart: 01-14-2025 End: 00-98-4839Ltbyrk Fernando Goode PA Work Phone: [facility] CI FMStart: 01-14-2025 End: 52-12-3444Bveork Fernando Goode PA Work Phone: [facility] CI FMStart: 01-14-2025 End: 93-87-5611Xnmfhq outpatient visit 15 minutesSkye Goode PA Work Phone: [facility] CI FMComment on above:Lumbar paraspinal muscle spasm (Primary Dx); Type 2 diabetes mellitus with hyperglycemia, without long-term current use of insulin (CMS/HCC)Start: 01-14-2025 End: 53-84-7851yaphbvjapqPUSYA M HEMMERNot AvailableStart: 12-03-2024 End: 73-04-1834GgapcdYeaumu B Berry MD Work Phone: [facility] CI FMComment on above:Failed back syndromeStart: 10-03-2024 End: 70-02-6534KgkmwtMqdzbd B Berry MD Work Phone: [facility] CI FMComment on above:Failed back syndromeStart: 09-10-2024 End: 34-78-8500fzxeezjdwbDkzvrfg Vytautas Gilaurie BUENOFacility:PM Dipesh Start: 09-03-2024 End: 53-61-1980ZstdzvDieyur B Berry MD Work Phone: [facility] CI FMComment on above:Failed back syndromeStart: 08-28-2024 End: 57-13-4581Oeapmo Fernando Goode PA Work Phone: [facility] CI FMStart: 08-28-2024 End: 17-14-9172Xrfrfy Fernando Goode PA Work Phone: [facility] CI FMStart: 08-28-2024 End: 00-92-0134Rtoulk outpatient visit 25 minutesSkye Goode PA Work Phone: [facility] CI FMComment on above: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) (Primary Dx); Benign essential hypertension (CMS/HCC); Morbid (severe) obesity due to excess calories (CMS/HCC); Body mass index (BMI) 35.0-35.9, adultStart: 08-28-2024 End: 97-26-6015jgucjccqowQWZFK Julia GOODEHeidi AvailableStart: 08-20-2024 End: 97-76-9448fqyqlcicizMmojncp Vytautas Giedraitis MDFacility:[facility] [place] Start: 08-13-2024 End: 44-24-3548gyaeubvjauCzztbga Vytautas Giedraitis MDFacility:[facility] Dipesh Start: 08-02-2024 End: 54-04-7865UowddrAphsmi B Berry MD Work Phone: noMS CI FMComment on above:Failed back syndromeStart: 07-30-2024 End: 04-63-6372kxqxrdajawPtnpuhx Vytautas Giedraitis MDFacility:[facility]esh Start: 07-23-2024 End: 45-64-7982ogjniftspwWvtdymr Vytautas Giedraitis MDFacility:[facility] Start: 07-18-2024 End: 61-34-1842Oxdhflaoz Result EncounterGeneric External Data ProviderNOMS External Department UnsolicitedStart: 07-18-2024 End: 82-63-9631Ouxgnmdkn Result EncounterGeneric External Data ProviderNOMS External Department UnsolicitedStart: 07-02-2024 End: 84-18-8985ZxfiwyLiauuv B Berry MD Work Phone: [facility] CI FMComment on above:Failed back syndrome; Hypothyroidism, unspecified type (CMS/HCC)Start: 06-29-2024 End: 99-56-2379cvuegudupvVvjtxrnrsMer[facility] Work Phone: Start: 06-29-2024 End: 40-82-1193Luplimx encounter procedureSlidell [facility] Work Phone: Start: 06-04-2024 End: 57-01-5479AcaomiZgtzai B Berry MD Work Phone: [facility] CI FMComment on above:Failed back syndromeStart: 05-25-2024 End: 86-12-6044Ebozhxsrz Result EncounterGeneric External Data ProviderNOMS External Department UnsolicitedStart: 05-25-2024 End: 88-32-3691Ynydupfub Result EncounterGeneric External Data ProviderNOMS External Department UnsolicitedStart: 05-11-2024 End: 49-18-0456Hsukpuyfe Result EncounterGeneric External Data ProviderNOMS External Department UnsolicitedStart: 05-11-2024 End: 23-24-1291Slqtrkbah Result EncounterGeneric External Data ProviderNOMS External Department UnsolicitedStart: 05-07-2024 End: 76-26-3220ZqgpwtPrtsab B Berry MD Work Phone: [facility] CI FMComment on above:Failed back syndromeStart: 04-09-2024 End: 81-43-0086Oisseu flowsAnthony Bowers MD Work Phone: [facility] CI FMStart: 04-09-2024 End: 05-36-4400Mwubmm flowsAnthony Bowers MD Work Phone: [facility] CI FMStart: 04-09-2024 End: 25-10-6791Dovpf of hemosiderin, quantKofi Bowers MD Work Phone: [facility] Work Phone: Start: 04-09-2024 End: 92-60-6294Yusstur encounter procedureKofi Bowers MD Work Phone: [facility] [...] Iliopsoas bursitis of right hipStart: 04-04-2024 End: 25-36-3965TtlodtWtleas B Berry MD Work Phone: noms CI FMComment on above:Failed back syndromeStart: 03-18-2024 End: 92-83-8066Rlljvmcmj department patient visitDABRITANY Hubbard KAYLEYGerman Hospitaltart: 51-84-5246JmifzsEodobn B Berry MD Work Phone: noms CI FMComment on above:Failed back syndromeStart: 06-27-2023 End: 51-86-9872dvuahhzlgnZbvhl ChabanFacility:[facility] Start: 62-90-9202Fchpjf outpatient visit 15 [facility] OutPtStart: 06-27-2023 End: 24-35-6668xqgepjwmenDU Kofi Bowers Work Phone: [facility] Work Phone: Start: 06-27-2023 End: 72-13-5271Tzogepg encounter procedureII Kofi Bowers Work Phone: [facility]-Sleep Lab Work Phone: Start: 91-23-4370byztadvjizKDMZLUCVZCJD JAREDSHMIPATHCharmaine . Facility:L2Huzob: 01-03-2023 End: 73-40-5857bsnoswduhcOVCGENR [facility] Hospitaltart: 10-14-2022 End: 75-66-3883fwdckeqylhAO SERENITY GARCIA .Facility:R0Fuadp: 09-28-2022 End: 66-37-5333kodxnnrfzmWVGHEBWLACMC Healthcare System Start: 09-07-2022 End: 45-61-9044nedkpzddzbIA DOCTOR MISCFacility:D9Tcssk: 08-31-2022 End: 84-13-6719lgclovrppiZSYVMQDBACMC Healthcare System Start: 08-23-2022 End: 38-98-8255rhmrnwtjcfKY SAMER KHOURIFacility:P5Aslkc: 07-14-2022 End: 97-13-4607anarovdfheEDQU ZIMMER .Facility:F4Opzlc: 36-72-2768Epeyew outpatient visit [facility]Start: 06-28-2022 End: 18-91-7209tcezilihvfSN Kofi Bowers Work Phone: [facility] Work Phone: Start: 06-28-2022 End: 52-80-1224Kmvrwmo encounter procedureII Kofi Bowers Work Phone: [facility]-Sleep LabStart: 06-01-2022 End: 55-28-6107puqqtvmurnHVEMIAN BOESUniSelect Medical Specialty Hospital [facility], Inctart: 05-18-2022 End: 84-20-0918bjhiupelymDZMJXCT BOESFacility:V5Ywvop: 05-05-2022 End: 82-99-7975fvfdbwhhfbWOPZXGA BOESFacility:B5Oafse: 04-28-2022 End: 17-69-5511phvfhdkcbpFSANHFJ BOESUniversOhio State Health Systemtart: 04-08-2022 End: 73-64-5284yubaedqnxyKM SERENITY S GARCIA .Facility:I8Qhbvm: 02-10-2022 End: 65-40-2825oltdoyyptvPL SERENITY S GARCIA .Facility:D6Zvghv: 01-26-2022 End: 78-88-0754krwwhnjyaoXS SERENITY S GARCIA .Facility:S5Pekdz: 01-06-2022 End: 98-54-4379ykjselveefZG JOE MUKHERJEEFacility:M5Hfxlm: 01-04-2022 End: 03-82-9107jpzaxgqubhOB KOFI BOWERSFacility:O0Vrzpy: 51-88-1896mywlzvuvrh MOHGALINAD KAPILHOTHANIFacility:C4Rhiys: 11-30-2021 End: 93-99-3539zhjeenjncbHA KOFI KAYLEYFacility:N1Stoyg: 08-89-3393nyigrqibab BETZAIDA ZIMMER .Facility:P4Aaxhg: 11-03-2021 End: 98-78-2557knofwflqxhGBNWABZ ALGHOTHANIFacility:B6Ezmny: 10-30-2021 End: 12-08-7415qlviussmmzWF DANIEL BERRYFacility:K8Zzdvm: 07-02-2021 End: 38-32-1025lwczbhapdoRkzxw Kurtz Other [facility] [employer] Other Start: 20-16-9247Upsqwe outpatient visit 15 minutes Olamidera Ch[facility] Procedures DateProcedureProcedure DetailPerforming ClinicianStart: 55-43-8703Gnrsoflkqncvf metabolic panelKofi Bowers MD Work Phone: Start: 29-61-7430Ccoqh panelKofi Bowers MD Work Phone: Start: 91-92-4242Yzaoy albumin quantitativeKofi Bowers MD Work Phone: Start: 69-37-3679Xwwouzjsfn glycosylated t1mEcyjofKofi Bowers MD Work Phone: Start: 26-90-2815Uddzd spine thoracic 2 viewsGeneric External Data ProviderStart: 28-56-6084Dsjytyhmqt glycosylated m4oEspgsSkye Goode PA Work Phone: Start: 81-21-5084Ygjvyjlatt glycosylated w2lVxpkiSkye Goode PA Work Phone: Start: 30-86-9707GSC BASIC METABOLIC PANELGeneric External Data ProviderStart: 86-56-9508FGN 12-LEADGeneric External Data Provider Start: 35-56-4957Fu thoracic spine w/o contrast materialGeneric External Data ProviderStart: 80-14-3128Ifydx spine thoracic 2 viewsGeneric External Data ProviderStart: 77-77-6522KB LUMBAR SPINE MIN 4VGeneric External Data Provider Start: 57-29-0056Qviwok img dx retinl dis w/narciso & report uni/bDcollin Bowers MD Work Phone: Start: 61-39-9784Uysxzcdnze glycosylated k2dBeegisKofi Bowers MD Work Phone: Plan of Treatment DateCare ActivityDetailAuthorStart: 41-46-8186Krdahaas screeningDiabetes: Retinopathy ScreeningNOMS HealthcareStart: 13-44-1505Cwytk screening for protein Diabetes: Urine Protein ScreeningNOMS HealthcareStart: 09-03-2026Medicare Annual Wellness (AWV)Medicare Annual Wellness (AWV)[facility] HealthcareStart: 12-12-2025 End: 08-40-5764Kwaldrc encounter /30/2026 11:30 AM EDT [facility] [place] [facility] [address] [facility] [address] [place] [address] Kofi Bowers MD [address] [place] [address] [facility] MedinceStart: 07-17-2025 Hemoglobin A1c measurementDiabetes: Hemoglobin I7JGOIW HealthcareStart: 06-17-2025 End: 85-50-1359Jzilfim encounter procedureNOMS [place] MedinceComment on above:ArrivedStart: 85-09-2420Btndqnnojs A1c measurementDiabetes: Hemoglobin A1C [facility] HealthcareStart: 06-06-2025 End: 93-75-3013Nsgkjap encounter zakhkbskc10/23/2025 9:00 AM EDT Office Visit [facility] [place] [facility] [address] [facility] [address] [place] [address] Kofi Bowers MD [address] [place] [address] ArrivedNOMS [place] Rowe MedinceComment on above:ArrivedStart: 06-86-8293Sgxnxyon screeningDiabetes: Retinopathy ScreeningNOMS HealthcareStart: 04-17-2025 End: 67-53-2621Ohzporh encounter procedureNOMS CI FMComment on above:Arrived Start: 37-87-7303Eufqozjjjb A1c measurementDiabetes: Hemoglobin B5CZQVN HealthcareStart: 48-75-5295RVWQQ-19 Vaccine ()COVID-19 Vaccine ( season)NOMS HealthcareStart: 09-17-1536Vrnckiapm vaccination Influenza Vaccine (#1)NOMS HealthcareStart: 08-26-2025Medicare Annual Wellness (AWV)Medicare Annual Wellness (AWV)NOM[facility] HealthcareStart: 27-74-2149Pxkvo screening for proteinDiabetes: Urine Protein ScreeningNOMS HealthcareStart: 02-11-2025 End: 44-07-4209Wfvelix encounter procedureNOMS CI FMComment on above:Arrived Start: 02-08-2025 End: 14-66-5171Tcxgpux encounter /27/2025 11:15 AM EDT Office Visit [facility] [address] [place] [address] Kofi Bowers MD [address] [place] [address] ArrivedNOMS CI FMComment on above:ArrivedStart: 01-17-2025 Urine screening for proteinDiabetes: Urine Protein ScreeningNONH Healthcare Start: 01-14-2025 End: 91-95-8444Pewjshg encounter sytwzvgot98/02/2025 1:00 PM EDT Office Visit [facility] [address] [place] [address] Skye Goode PA [address] [place] [address] ArrivedNOMS CI FMComment on above:ArrivedStart: 74-23-1882Svskvxjfnl A1c measurementDiabetes: Hemoglobin T0FQTZL Healthcare Start: 08-28-2024 End: 41-89-0295Zrhsabn encounter lpjnusuqv37/14/2025 1:00 PM EST Office Visit [facility] [address] [place] [address] Skye Goode PA [address] [place] [address] ArrivedNOMS CI FMComment on above:ArrivedStart: 08-13-2024 End: 22-11-9139Hlcdtaf encounter /30/2024 1:15 PM EST Office Visit [facility] [address] [facility] [address] [place] [address] Kofi Bowers MD [address] [place] [address] NOMS CI FMStart: 08-09-2024 End: 12-91-3992Wxjcxvd encounter oiierbooc02/26/2024 1:15 PM EST Office Visit [facility] [address] [facility] [address] [place] [address] Kofi Bowers MD [address] [place] [address] NOM[facility] CI FMStart: 76-95-5920Itggcpeysb A1c measurementDiabetes: Hemoglobin I7QYKSO HealthcareStart: 91-36-5484Qdnbjvksn vaccinationInfluenza Vaccine (#1)NOMS HealthcareStart: 04-09-2024 End: 08-68-8007Fbwrmfeuoruv/Creatinine panel in random UrineMicroalbumin / creatinine, urine ratio Lab Routine Type 2 diabetes mellitus without complication, without long-term current use of insulin ([facility]) Expected: 04/09/2024 (Approximate), Expires: 04/09/2025NONH Healthcare Work Phone: Comment on above:Expected: 04/09/2024 (Approximate), Expires: 04/09/2025Start: 04-09-2024 End: 39-22-6362Uwvqjqe encounter procedureNOO[facility] [place] FMComment on above:Arrived Start: 28-21-8953Pnewrcnwps A1c measurementDiabetes: Hemoglobin I2SFVXV HealthcareStart: 05-22-2024Medicare Annual Wellness (AWV)Medicare Annual Wellness (AWV)NOMS HealthcareStart: 86-97-1637Yneoj screening for protein Diabetes: Urine Protein ScreeningNONH HealthcareStart: 10-27-2023 End: 58-81-1143Djxhzhr encounter tblinpxfc72/14/2024 2:45 PM EDT Office Visit [facility] [address] [facility] [address] [place] [address] Kofi Bowers MD [address] [place] [address] [address] [place] [address] NOMS CI FMStart: 43-58-0806Wstnjostlh A1c measurementDiabetes: Hemoglobin U8OEGYF HealthcareStart: 63-09-5885Rcxlrozh screeningDiabetes: Retinopathy ScreeningNONH HealthcareStart: 22-55-0393BRcO/Tdap/Td Vaccines (2 - Tdap)DTaP/Tdap/Td Vaccines (2 - Tdap)[facility] HealthcareStart: 05-15-2014 Pneumococcal Vaccine: 65+ Years (2 of 2 - PCV)Pneumococcal Vaccine: 65+ Years (2 of 2 - PCV)[facility] Healthcare Immunizations Immunization DateImmunizationNotesCare DsanqjrpSleirfhp33-99-7820wyfstpgaf, high dose seasonal, preservative-Rosendo Bowers MD Work Phone: [facility] HospitalEmzaortefp45-12-2574dzccyn vaccine recombinant Kofi Bowers MD Work Phone: [facility] HospitalBtzonriiog28-56-9519tiuqkn vaccine recombinant Skye FARIAS Work Phone: [facility] HospitalZfrsoobfzf47-56-9521COLVWWH - Respiratory syncytial virus (RSV), vaccine, bivalent, protein subunit RSV prefusion F, dil uent reconstituted, 0.5 mL, PFSkye FARIAS Work Phone: NON[facility] CenterAdtjpdeway06-30-3177hjzjqqctq, high dose seasonal, preservative-freeSkye FARIAS Work Phone: [facility] HospitalMhdjheqpuh89-29-8507yugjtfyor virus vaccine, unspecified formulationKofi Bowers MD Work Phone: [facility] HospitalYwfzrvonck08-89-3983Kzwgdrxtz, High-dose Seasonal, Quadrivalent, Preservative Rosendo Bowers MD Work Phone: [facility] HospitalXnvjiwxxsb11-03-1329lilsrwvpd virus vaccine, unspecified formulationKofi Bowers MD Work Phone: [facility] CenterYknlcmyrzz58-91-5871Ccynfqiqd, injectable, Madin [place] Canine Kidney, preservative free, quadrivalentKofi Bowers MD Work Phone: [facility] HospitalCxlqytwbpa98-80-2948byjszakkr, high dose seasonal, preservative-Rosendo Bowers MD Work Phone: [phone]. Lukes Des Peres HospitalQefawlzjcl74-67-2270Avgewake, trivalent, recombinant, injectable influenza vaccine, preservative Rosendo Bowers MD Work Phone: [facility] HospitalCqdccafakv15-72-5472mhupmqrcb, injectable, quadrivalent, preservative Rosendo Bowers MD Work Phone: [phone]. Lukes Des Peres HospitalCkfdxfkqzx98-29-8726bscfbsult, injectable, quadrivalent, preservative Rosendo Bowers MD Work Phone: [phone] [place], [place] [address]Tcyxgxoluz11-45-7709pdtmxszka, injectable, quadrivalent, preservative Rosendo Bowers MD Work Phone: [phone] [place], [place] [address]Vufrrvwhsp80-47-7332unmyzhr and diphtheria toxoids, adsorbed, preservative free, for adult use (5 Lf of tetanus toxoid and 2 Lf of diphtheria toxoid)Kofi Bowers MD Work Phone: [facility] HospitalKabncswvlx11-64-2354ioolozkdtwla polysaccharide vaccine, 23 valentKofi Bowers MD Work Phone: [facility] Payers DatePayer CategoryPayerPolicy [id number] [id number] 2023Medicare (Managed Care) [id number] [id number] 2018MedicareMEBNVNSN [id number] [id number] [id number] 1960Private Health [id number]-aul [id number] 2.16.840.1.772926.3.57[id number] 2.16.840.1.812711.3.57[id number] 2.16.840.1.151249.3.57[id number] 2.16.840.1.441115.3.57[id number] 2.16.840.1.543854.3.57[id number] 2.16.840.1.083602.3.57[id number] 2.16.840.1.949471.3.57[id number] 2.16.840.1.415637.3.57[id number] 2.16.840.1.405213.3.579.2.02546-36-9279Hxozynp4505610 2.16.840.1.395470.3.57[id number] 2.16.840.1.947459.3.57[id number] 2.16.840.1.485784.3.57[id number] 2.16.840.1.621439.3.579.2.02088-97-2910Tcelwxq8760013 2.16.840.1.782375.3.57[id number] 2.16.840.1.483342.3.579.2.78033-56-7089Lhodwnn1172642 2.16.840.1.242196.3.579.2.55883-87-4416Vucrbet6465211 2.16840.1.323712.3.57[id number] 2.16840.1.665831.3.57[id number] 2..1.070049.3.579.2.677944-14-2832Lvgmolp293371119 2.0.1.926552.3.57[id number] 2..1.175173.3.579.[id number] 2..1.380460.3.579.2.28982-74-6681Hkotvfo707763571 2..1.932350.3.57[id number] 2.0.1.742129.3.57[id number] 2.0.1.901350.3.579.[id number] 2.0.1.245825.3.579.2.74970-29-4397Djafjhg72013821 2.840.1.222785.3.579.2.200635-17-8222Hyefpgn74061653 2.840.1.431955.3.579.2.942729-18-3236Qsqbxou08039286 2..0.1.097398.3.579.2.066942-64-1941Lfklmdo77909633 2.16.0.1.910461.3.579.2.991409-60-4263Adgafkc58670548 2.16.840.1.124671.3.579.2.001076-20-7197Xomautj67378605 2..0.1.659155.3.579.2.090327-64-6665Bdncsxf7603049 2.0.1.055052.3.579.2.101994-61-9115Xzgegsq6830289 2.160.1.332294.3.57[id number] /[id number] qq57s415-0q35-4q58-0119-[id number] 2.0.1.460137.3.579.2.531 Social History DateTypeDetailFacilityUnknown if ever smokedNor[place] [facility] Other Start: 06-15-2018 End: 62-34-0763Deksulu smoking status NHISEx-smoker (finding)[facility]utetart: 49-26-7406Iuu Assigned At [facility] He[facility]htart: 07-20-2023 End: 18-38-1409Ccz Assigned At [facility] Other End: 48-96-1781Fvpupzn of tobacco useCurrent smokerNOMS Healthcare End: 17-17-0983Lodjqkf of tobacco useCigarette SmokerNOMS HealthcareStart: 03-11-2023 End: 74-28-6725Wmxaagf use and exposureSmokeless tobacco non-userL[facility] Healthcare Start: 07-20-2023 End: 46-51-0824Cotyqlo intakeEx-drinker (finding)[facility] HealthcareStart: 07-20-2023 End: 59-68-1266Hqyfmyl of Social functionLDS HOSPITAL HealthcareStart: 01-46-7523Vtbdomx CommentCaffeine: 1-2 cups per day; none soda/popNOMS HealthcareStart: 79-36-1734Tfp Assigned At BirthNot on fileNONH HealthcareStart: 37-54-4535Tbv Female (finding)[facility] Institutetart: 29-17-1491DxrWposfcTKAY Healthcare Medical Equipment Procedure CodeEquipment CodeEquipment Original TextEquipment IdentifierDates1 each by In Vitro route [id number]: each [id number]: 94-43-3197Pxqekq 1 each under the skin [id number]: 03-26-2025 Functional Status HelhQxdaobhsrvYsjyxyMdlulqsu96-66-8262Iqshfmk Health Questionnaire 2 item (PHQ- 2) [Reported][facility] HospitalIilefvenrd34-55-4646Qzozzix Health Questionnaire 2 item (PHQ- 2) [Reported][facility] HospitalWdgkavgkqa41-88-0334Imlcavj Health Questionnaire 2 item (PHQ- 2) [Reported][facility] HospitalYkyinycenw78-02-0104Cybzazd Health Questionnaire 2 item (PHQ- 2) [Reported][facility] HospitalBebkbfjvlk79-20-0631Nuqvfzs Health Questionnaire 2 item (PHQ- 2) [Reported][facility] Clinical Notes 11-03-2021 to 06-17-2025 Note Date & FvxxGpceUrbbuixf17-86-8954 History of Present illness Narrative* Kofi Bowers [...] the evening. cholecalciferol (Vitamin D-3) 1.25 MG (91784 UT) tablet Vitamin D3 5000IU empagliflozin (Jardiance) [...] two times daily. D.A.W. as Sigma or [employer] Brand ONLY for 90 days 200 tablet [...] mass index (BMI) of 40.0-44.9 in adult ([facility]) Bronchitis Bruise of breast Cataract Colon polyps COVID-19 03/2021 Deviated nasal septum Diabetes mellitus ([facility]) Encounter for diabetic foot exam ([facility]) Family history of colon cancer Brother Fracture Rt orbital fracture, LUCIUS elbow fracture - shipped to [facility] 07/31/15. GERD (gastroesophageal reflux disease) History of being hospitalized 07/2015 [facility] - Post fall -rt orbital fx, LUCIUS elbow fracture, facial contusion History of colon polyps Hyperlipidemia Hypertension Labyrinthitis Left cervical radiculopathy Low back pain Measles Morbid obesity ([facility]) Osteopenia Pneumonia Posterior vitreous [...] - Flu vaccine, high dose seasonal, PF (YVV964) (Fluzone High Dose) Other orders - Follow Up In Family Medicine; Future Follow up with Dr. Kofi Bowers in 6 months (on 12/14/2025). documented in this encounterSt. Lukes Des Peres HospitalOogtyrsbyh10-41-5809 History of Present illness Narrative* Kofi Bowers [...] the evening. cholecalciferol (Vitamin D-3) 1.25 MG (98246 UT) tablet Vitamin D3 5000IU empagliflozin (Jardiance) [...] two times daily. D.A.W. as Sigma or [employer] Brand ONLY for 90 days 200 tablet [...] mass index (BMI) of 40.0-44.9 in adult ([facility]) Bronchitis Bruise of breast Cataract Colon polyps COVID-19 03/2021 Deviated nasal septum Diabetes mellitus ([facility]) Encounter for diabetic foot exam ([facility]) Family history of colon cancer Brother Fracture Rt orbital fracture, LUCIUS elbow fracture - shipped to [facility] 07/31/15. GERD (gastroesophageal reflux disease) History of being hospitalized 07/2015 [facility] - Post fall -rt orbital fx, LUCIUS elbow fracture, facial contusion History of colon polyps Hyperlipidemia Hypertension Labyrinthitis Left cervical radiculopathy Low back pain Measles Morbid obesity ([facility]) Osteopenia Pneumonia Posterior vitreous [...] or fail to improve. documented in this encounterSt. Lukes Des Peres HospitalHqhxyioptx71-68-6024 Telephone encounter Note* Telephone Encounter - MAREK CORONEL - 05/13/2025 3:48 PM EDT Spoke with patient and she is NOT taking Metformin, but she is taking Farxiga. [facility] Jwziolevrn58-17-4535 Miscellaneous Notes* Telephone Encounter - MAREK CORONEL [...] savedup of this medication documented in this encounterNONevada Regional Medical CenterQtvwhjxqkt05-83-1896 Telephone encounter Note* Telephone Encounter - MAREK CORONEL - 05/13/2025 2:29 PM EDT Spoke with patient and she was told to go off the Trulicity and metformin. I did see at her 03/07/25visit the Metformin was stopped but not the Trulicity. Please advise. Her BS are running from 120 to 160 [facility] Ueirdlktoq13-05-1491 Telephone encounter Note* Telephone Encounter - Chelle [...] 4 months supply savedup of this medication [facility] HospitalKttktdufcp22-44-9325 Telephone encounter Note* Telephone Encounter - Charlette Chirinos - 05/01/2025 12:40 PM EDT Konrda stopped in. She stated that Dr. Bowers [...] Tramadol could not be filled til tomorrow. [facility] HospitalOgnntzfjsb23-14-4809 Miscellaneous Notes* Telephone Encounter - Charletteronald Chirinos [...] EDT [facility] [place] documented in this encounterSt. Lukes Des Peres HospitalRwhxqmdbbn48-35-3326 Telephone encounter Note* Telephone Encounter - Lilly Granda LPN - 04/29/2025 10:12 AM EDT Can you advise if pt is supposed to be on this medication you stopped it a couple months ago [facility] HospitalTebrvmunfr25-16-7829 Telephone encounter Note* Telephone Encounter - Chelle Guallpa - 04/29/2025 10:07 AM EDT Met[facility] [place] [facility] HospitalJliwniphou32-02-7660 Telephone encounter Note* Telephone Encounter - MAREK CORONEL - 04/23/2025 4:13 PM EDT Farxiga was sent to [facility], patient notified [facility] HospitalTlkplnzezx00-51-8772 Miscellaneous Notes* Telephone Encounter - MAREK CORONEL - 04/23/2025 4:13 PM EDT Farxiga was sent to [facility], patient notified * Telephone Encounter - MAREK CORONEL - 04/22/2025 11:54 AM EDT Metformin was fill In February. With 9 refills * Telephone Encounter - Chelle Guallpa - 04/22/2025 11:23 AM EDT [facility] was denied by ins pt wondered what the next steps would be. documented in this encounterSt. Lukes Des Peres HospitalXizhjmhomv24-86-6998 Telephone encounter Note* Telephone Encounter - MAREK CORONEL - 04/22/2025 11:54 AM EDT Metformin was fill In February. With [address] [facility] HospitalLionivsrgx00-99-9161 Telephone encounter Note* Telephone Encounter - Chelle Guallpa - 04/22/2025 11:23 AM EDT [facility] was denied by ins pt wondered what the next steps would be. [facility] HospitalYzotsjyvun53-32-1305 Telephone encounter Note* Telephone Encounter - DINORA Lopez - 04/17/2025 4:25 PM EDT Lantus sent. [facility] HospitalFdeesqjqgl18-11-6094 Miscellaneous Notes* Telephone Encounter - DINORA Lopez - 04/17/2025 4:25 PM EDT Lantus sent. * Telephone Encounter - MAREK CORONEL - 04/17/2025 2:15 PM EDT [facility] [place] called ans states that they no longer get the levemir injections do to it being discontinued. They have been changing to Lantus. Please send in a new RX. documented in this encounterSt. Lukes Des Peres HospitalXzucecwasl97-30-6281 Telephone encounter Note* Telephone Encounter - MAREK CORONEL - 04/17/2025 2:15 PM EDT [facility] [place] [place] called ans states that they no longer get the levemir injections do to it being discontinued. They have been changing to Lantus. Please send in a new RX. [facility] HospitalZohyfvruqm67-11-6042 History of Present illness Narrative* Kofi Bowers [...] the evening. cholecalciferol (Vitamin D-3) 1.25 MG (98878 UT) tablet Vitamin D3 5000IU furosemide (Lasix) [...] two times daily. D.A.W. as Sigma or [employer] Brand ONLY for 90 days 200 tablet [...] Do you have a medical power of contract attorney?: Yes Objective : BP 134/74 Pulse [...] LDL-C. Tien SS et al. ARON. 2013;310(19): 3342-1448 (http://education.Torbit/faq/RJH282) CHOL/HDLC RATIO 04/19/2025 2.8 <5.0 (calc) Final [...] on April 17, 2025 documented in this encounterSt. Lukes Des Peres HospitalEkwaujkotf92-27-4354 Telephone encounter Note* Telephone Encounter - DINORA Lopez - 04/04/2025 10:14 AM EDT OARRS reviewed, Rx sent into patient's pharmacy. [facility] HospitalRsxxyesbjn16-71-2095 Miscellaneous Notes* Telephone Encounter - DINORA Lopez - 04/04/2025 10:14 AM EDT OARRS reviewed, Rx sent into patient's pharmacy. documented in this encounterSt. Lukes Des Peres HospitalEdcghmmhys08-02-1418 History of Present illness Narrative* Kofi Bowers [...] the evening. cholecalciferol (Vitamin D-3) 1.25 MG (46573 UT) tablet Vitamin D3 5000IU furosemide (Lasix) 40 MG tablet TAKE 1 TABLET BY MOUTH IN THE MORNING 30 tablet 11 insulin detemir (Levemir FlexTouch) 100 UNIT/ML pen INJECT 60 UNITS SUBCUTANEOUSLY EACH MORNING for25 liothyronine (Cytomel) 25 MCG tablet 0.5 tablet on an empty stomach Orally two times daily. D.A.W. as Barnana or [employer] Brand ONLY for 90 days 200 tablet [...] mass index (BMI) of 40.0-44.9 in adult ([facility]) Bronchitis Bruise of breast Cataract Colon polyps COVID-19 03/2021 Deviated nasal septum Diabetes mellitus ([facility]) Encounter for diabetic foot exam ([facility]) Family history of colon cancer Brother Fracture Rt orbital fracture, LUCIUS elbow fracture - shipped to [facility] 07/31/15. GERD (gastroesophageal reflux disease) History of being hospitalized 07/2015 [facility] - Post fall -rt orbital fx, LUCIUS elbow fracture, facial contusion History of colon polyps Hyperlipidemia Hypertension Labyrinthitis Left cervical radiculopathy Low back pain Measles Morbid obesity ([facility]) Osteopenia Pneumonia Posterior vitreous [...] No follow-ups on file. documented in this encounterSt. Lukes Des Peres HospitalVcnrlehafx37-52-4764 History of Present illness Narrative* Kofi Bowers [...] the evening. cholecalciferol (Vitamin D-3) 1.25 MG (71113 UT) tablet Vitamin D3 5000IU furosemide (Lasix) 40 MG tablet TAKE 1 TABLET BY MOUTH IN THE MORNING 30 tablet 11 insulin detemir (Levemir FlexTouch) 100 UNIT/ML pen INJECT 60 UNITS SUBCUTANEOUSLY EACH MORNING for25 liothyronine (Cytomel) 25 MCG tablet 0.5 tablet on an empty stomach Orally two times daily. D.A.W. as Barnana or [employer] Brand ONLY for 90 days 200 tablet [...] mass index (BMI) of 40.0-44.9 in adult ([facility]) Bronchitis Bruise of breast Cataract Colon polyps COVID-19 03/2021 Deviated nasal septum Diabetes mellitus ([facility]) Encounter for diabetic foot exam ([facility]) Family history of colon cancer Brother Fracture Rt orbital fracture, LUCIUS elbow fracture - shipped to [facility] 07/31/15. GERD (gastroesophageal reflux disease) History of being hospitalized 07/2015 [facility] - Post fall -rt orbital fx, LUCIUS elbow fracture, facial contusion History of colon polyps Hyperlipidemia Hypertension Labyrinthitis Left cervical radiculopathy Low back pain Measles Morbid obesity ([facility]) Osteopenia Pneumonia Posterior vitreous [...] 4 days (around 02/12/2025). documented in this encounterSt. Lukes Des Peres HospitalAlrbduxxji35-17-6480 History of Present illness Narrative* DINORA Lopez [...] the evening. cholecalciferol (Vitamin D-3) 1.25 MG (53129 UT) tablet Vitamin D3 5000IU furosemide (Lasix) 40 MG tablet TAKE 1 TABLET BY MOUTH IN THE MORNING 30 tablet 11 insulin detemir (Levemir FlexTouch) 100 UNIT/ML pen INJECT 60 UNITS SUBCUTANEOUSLY EACH MORNING for25 liothyronine (Cytomel) 25 MCG tablet 0.5 tablet on an empty stomach Orally two times daily. D.A.W. as Sigma or [employer] Brand ONLY for 90 days 200 tablet [...] mass index (BMI) of 40.0-44.9 in adult ([facility]) Bronchitis Bruise of breast Cataract Colon polyps COVID-19 03/2021 Deviated nasal septum Diabetes mellitus ([facility]) Encounter for diabetic foot exam ([facility]) Family history of colon cancer Brother Fracture Rt orbital fracture, LUCIUS elbow fracture - shipped to [facility] 07/31/15. GERD (gastroesophageal reflux disease) History of being hospitalized 07/2015 [facility] - Post fall -rt orbital [...] hyperglycemia, without long-term current use of insulin ([facility]) - POCT Glycated hemoglobin, total Advised pt that her HgbA1c remains well controlled at 6.4. Will continue to monitor. Follow up in about 3 months (around 04/10/2025) for Medicare Wellness Visit. documented in this encounterSt. Lukes Des Peres HospitalGatgesgwno27-36-8803 Telephone encounter Note* Telephone Encounter - Chelle Guallpa - 12/03/2024 1:46 PM EDT traMADol (Ultram) 50 MG tablet Ddm [place] [facility] HospitalLbkcjigfob03-95-8918 Miscellaneous Notes* Telephone Encounter - Chelle Guallpa - 12/03/2024 1:46 PM EDT traMADol (Ultram) 50 MG tablet [facility]dm in [place] documented in this encounterSt. Lukes Des Peres HospitalHhqltnxhbw37-48-6184 Telephone encounter Note* Telephone Encounter - DINORA Lopez - 10/03/2024 1:36 PM EST OARRS reviewed, Rx sent into patient's pharmacy. [facility] Aurjythzev88-44-8092 Miscellaneous Notes* Telephone Encounter - DINORA Lopez - 10/03/2024 1:36 PM EST OARRS reviewed, Rx sent into patient's pharmacy. * Telephone Encounter - Chelle Guallpa - 10/03/2024 11:19 AM EST traMADol (Ultram) [address] [facility] [address] [facility] [place] She is calling a day early because [facility]. documented in this encounterSt[facility] [id number] Telephone encounter Note* Telephone Encounter - Chelle Guallpa - 10/03/2024 11:19 AM EST traMADol (Ultram) [facility] [place] She is calling a day early because [facility] takes about [facility] days to fill it. [facility] [id number] Telephone encounter Note* Telephone Encounter - Benita Busch - 09/03/2024 11:44 AM EST traMADol (Ultram) 50 MG tablet to drug [id number] Miscellaneous Notes* Telephone Encounter - Benita Busch - 09/03/2024 11:44 AM EST traMADol (Ultram) 50 MG tablet to drug sarah james documented in this encounterSt. [facility] [id number] History of Present illness Narrative* DINORA Lopez - 08/28/2024 1:00 PM EST Images from the original note were not included. HPI Insomnia Additional comments: Pt states she had a bone stimulator placement surgery on 08/13/24 at [facility] and she is actually sleeping [...] the evening. cholecalciferol (Vitamin D-3) 1.25 MG (71164 UT) tablet Vitamin D3 5000IU furosemide (Lasix) 40 MG tablet TAKE 1 TABLET (40 MG) BY MOUTH IN THE MORNING. 30 tablet 10 insulin detemir (Levemir FlexTouch) 100 UNIT/ML pen INJECT 60 UNITS SUBCUTANEOUSLY EACH MORNING for25 liothyronine (Cytomel) 25 MCG tablet 0.5 tablet on an empty stomach Orally two times daily. D.A.W. as Barn[employer] or [employer] Brand ONLY for 90 days 200 tablet [...] mass index (BMI) of 40.0-44.9 in adult (CMS/[facility]) Bronchitis Bruise of breast Cataract Colon polyps COVID-19 03/2021 Deviated nasal septum Diabetes mellitus (CMS/[facility]) Encounter for diabetic foot exam ([facility]) Family history of colon cancer Brother Fracture Rt orbital fracture, LUCIUS elbow fracture - shipped to [facility] 07/31/15. GERD (gastroesophageal reflux disease) History of being hospitalized 07/2015 [facility] - Post fall -rt orbital [...] for Medicare Wellness Visit. documented in this [facility]12-19-2024 Telephone encounter Note* Telephone Encounter - Chelle Guallpa - 08/02/2024 10:31 AM EST traMADol (Ultram) [address] [id number] Miscellaneous Notes* Telephone Encounter - Chelle Guallpa - 08/02/2024 10:31 AM EST traMADol (Ultram) [address] [facility] documented in this [facility]11-18-2024 Telephone encounter Note* Telephone Encounter - Chelle Guallpa - 07/02/2024 9:45 AM EST traMADol (Ultram) 50 MG tablet liothyronine (Cytomel) 25 MCG tablet [facility]dm [facility] HospitalCtqvynjvbm94-43-4811 Miscellaneous Notes* Telephone Encounter - Chelle Guallpa - 07/02/2024 9:45 AM EST traMADol (Ultram) 50 MG tablet liothyronine (Cytomel) 25 MCG tablet Ddm in [place] documented in this encounterSt. L[facility] HospitalJophlvtxgq65-84-7761 Telephone encounter Note* Telephone Encounter - DINORA Lopez - 06/04/2024 4:27 PM EDT OARRS reviewed, Rx sent into patient's pharmacy. [facility] [id number] Miscellaneous Notes* Telephone Encounter - DINORA Lopez - 06/04/2024 4:27 PM EDT OARRS reviewed, Rx sent into patient's pharmacy. * Telephone Encounter - Chelle Guallpa - 06/04/2024 3:51 PM EDT traMADol (Ultram) 50 MG tablet Ddm in [place] documented in this encounterSt. Lukes [facility] HospitalUuyqvlffie04-49-9331 Telephone encounter Note* Telephone Encounter - Chelle Guallpa - 06/04/2024 3:51 PM EDT traMADol (Ultram) 50 MG tablet [facility]dm [facility] HospitalQaqrikofcg80-46-8963 Telephone encounter Note* Telephone Encounter - Chelle Guallpa - 05/07/2024 1:39 PM EDT traMADol (Ultram) 50 MG tablet [facility]dm [facility] HospitalChozbgsvnw70-79-7641 Miscellaneous Notes* Telephone Encounter - Chelle Guallpa - 05/07/2024 1:39 PM EDT traMADol (Ultram) 50 MG tablet Ddm in [place] documented in this encounterSt. Lukes [facility] HospitalHwpiwllrxk77-58-3594 History of Present illness Narrative* Kofi Bowers [...] same time. cholecalciferol (Vitamin D-3) 1.25 MG (55169 UT) tablet Vitamin D3 5000IU furosemide (Lasix) 40 MG tablet TAKE 1 TABLET (40 MG) BY MOUTH IN THE MORNING. 30 tablet 10 insulin detemir (Levemir FlexTouch) 100 UNIT/ML pen INJECT 60 UNITS SUBCUTANEOUSLY EACH MORNING for25 liothyronine (Cytomel) 25 MCG tablet 0.5 tablet on an empty stomach Orally two times daily. D.A.W. as Sigma or [employer] Brand ONLY for 90 days 200 tablet [...] Do you have a medical power of contract attorney?: Yes Who is your medical power of contract attorney?: her son Objective : BP 115/65 [...] a living will and durable power of contract attorney for healthcare. We discussed telling ortiz [...] complication, without long-term current use of insulin ([facility]) - POCT glycosylated hemoglobin (Hb A1C) docked device - Microalbumin / creatinine, urine ratio; Future Morbid (severe) obesity due to excess calories ([facility]) Essential (primary) hypertension ([facility]) Body mass index (BMI) [...] on April 09, 2024 documented in this encounterSt. Lukes [facility] HospitalDunccxcbmo58-45-2215 Telephone encounter Note* Telephone Encounter - DINORA Lopez - 04/04/2024 3:56 PM EDT OARRS reviewed, Rx sent into patient's pharmacy. [facility] [id number] Miscellaneous Notes* Telephone Encounter - DINORA Lopez - 04/04/2024 3:56 PM EDT OARRS reviewed, Rx sent into patient's pharmacy. * Telephone Encounter - Chelle Guallpa - 04/04/2024 3:08 PM EDT traMADol (Ultram) 50 MG tablet DDM IN [place] documented in this encounterSt. Lukes [facility] HospitalPpziewczid07-19-5760 Telephone encounter Note* Telephone Encounter - Chelle Guallpa - 04/04/2024 3:08 PM EDT traMADol (Ultram) 50 MG tablet [facility]DM [facility] [place] HospitalJyzjmdknan24-38-3697 Telephone encounter Note* Telephone Encounter - DINORA Lopez - 09/29/2023 12:33 PM EST OARRS reviewed, Rx sent into patient's pharmacy. [facility] [id number] Miscellaneous Notes* Telephone Encounter - DINORA Lopez - 09/29/2023 12:33 PM EST OARRS reviewed, Rx sent into patient's pharmacy. documented in this encounterSt. Lukes Des Peres HospitalFafecptnkh83-07-9004 Evaluation note* Encounter Date Diagnosis Assessment Notes Treatment Notes Treatment Clinical Notes Jun, Obstructive sleep apnea (ICD-10 - G47.33) Jun,hronic insomnia (ICD-10 - F51.04) [facility] Other 05-22-2023 NotePatient is here today to discuss medication Review of Systems Musculoskeletal: Positive for arthritis and back pain. All other systems reviewed and are negative.[facility] 01-03-2023 NoteCardiovascular Medicine [facility] SUBJECTIVE Chief Complaint Patient presents with [...] BID. She will be driving down to [place] this weekend for her high school reunion. [...] Diagnosis Closed fracture of orbital floor (blow-out) ([facility]) Epiphora Fracture of orbit ([facility]) Fracture of radial neck Obesity Hypertensive disorder Pain in elbow MANOLO (obstructive sleep apnea) Diabetes ([facility]) Polyneuropathy Vitreous floaters of both eyes Venous hypertension of lower extremity Trigger thumb, left thumb Insomnia Osteopenia Peripheral venous insufficiency Non-seasonal allergic rhinitis Mixed hyperlipidemia senior living current use of insulin ([facility]) Lipoprotein deficiency disorder History of fall History of colonic polyps GERD (gastroesophageal reflux disease) Family history of malignant neoplasm of gastrointestinal tract Failed back syndrome Ex-smoker ESS (euthyroid sick syndrome) Disability of walking Diabetic retinopathy associated with controlled type 2 diabetes mellitus ([facility]/HCC) Diabetic polyneuropathy associated with type 2 diabetes mellitus ([facility]/HCC) Type 2 diabetes mellitus with hyperglycemia ([facility]) Decreased estrogen level Continuous [...] tablet, Take 1 (more content not included)... [facility]03-02-2023 NoteCONSULTATION CONSULTATION DATE: 10/14/2022 HISTORY: This [...] unless otherwise indicated. Patient is in agreement.[facility] HospitalYnbnfsos26-67-3957 NoteCardiology Clinic Note Subjective Konrad Guzman is [...] BUN 13, creatinine 0.84, (more content not included)...[facility]02-14-2023 NotePatient here for 1 mo follow up hypertension and medication changes. She was started on hydrochlorothiazide and losartan was increased back up to 100mg daily. She had BMP on 09/07. Review of Systems Musculoskeletal: Positive for back pain. All other systems reviewed and are negative.[facility] 08-31-2022 NotebloUnLake County Memorial [facility]01-17-2023 NotePatient here for 3 mo follow up [...] Systems All other systems reviewed and are negative.[facility] 08-31-2022 NoteCardiology Clinic Note Subjective Konrad Guzman [...] 119, BUN 13, creatinine (more content not included)...[facility] 07-14-2022 NoteCONSULTATION CONSULTATION DATE: 07/14/2022 HISTORY [...] in three months' time unless otherwise indicated.[facility] HospitalBjlbetzj02-88-8078 Evaluation note* Encounter Date Diagnosis Assessment Notes Treatment Notes Treatment Clinical Notes Jun, Obstructive sleep apnea (ICD-10 - G47.33) Patient was encouraged to continue regular use of CPAP as before, discussed chronic insomnia associated with sleep apnea and treatment options today at length as well Jun,hronic insomnia (ICD-10 - F51.04)Treatment options, including amitriptyline, indications, benefits and potential side effects were all discussed today [facility] Other 10-18-2022 NoteContinue to wear cpapUnLake County Memorial Hospital - West10-18-2022 NoteContinue amlodipine 10 mg daily- she recently ran out of 10 mg and this morning took 5 mg tablet she had from previous script. Continue coreg 25 mg bid, lasix 40 mg daily, losartan 50 mg daily and hydralazine 50 mg po bid.[facility]10-18-2022 Note Subjective Konrad Guzman is a 77 [...] Lab Review: Assessment/Plan There were no encounter diagnoses.[facility]10-18-2022 NoteHPI: Konrad Guzman is a 77 y.o. [...] 3 months with repeat BMP for renal functionUnLake County Memorial Hospital [facility]09-26-2022 NoteI spoke with patient and informed her of medication changes per Veronica Gillespie CNP. RX sent to [facility] and BMP faxed to [facility]. Patient verbalized understanding. [facility]09-14-2022 NoteF/U with PCP for further managementUnLake County Memorial Hospital [facility]09-14-2022 NoteHypertension remains uncontrolled, will add aldactone 25 [...] BUN 15, CR 0.85 normal K+ 4.8 normalUnLake County Memorial Hospital - West09-14-2022 NoteAdded in error and don't know how to get rid of itUnLake County [facility]08-25-2022 NoteCONSULTATION CONSULTATION DATE: 04/08/2022 HISTORY OF PRESENT [...] in the office post procedure in May.[facility] HospitalZuvpnusm65-13-4508 NoteCONSULTATION CONSULTATION DATE: 02/10/2022 HISTORY OF PRESENT [...] plan of care and all questions answered. [facility] Signed and Approved by: BETZAIDA ZIMMER . 02/11/2022 13:38:00[facility]03-22-2022 NoteCONSULTATION PAIN MANAGEMENT CONSULTATION CHIEF COMPLAINT: Low [...] had three nerves released by Dr. Branch, manager risk, in 2002. She states the pain has [...] would like to proceed. CC: Dr. Bowers [facility] Signed and Approved by: DR SERENITY GARCIA . 11/17/2021 11:24:00[facility] Centeraluation noteNort [employer] Other Evaluation noteNo assessment information available [facility] Work Phone: Evaluation note* Diagnosis Failed back syndrome Other unspecified back disorder documented in this encounter [facility] HealthcareEvaluation note* Diagnosis Failed back syndrome Other unspecified back disorder documented in this encounter [facility] HealthcareEvaluation note* Diagnosis Onset Date Resolution Status Admit Date Chronic insomnia acuteJune 29, 2024 11:30amOSA (obstructive sleep apnea)acuteJune 29, 2024 11:30am [facility] Work Phone: Evaluation note* Diagnosis Failed back syndrome Other unspecified back disorder Hypothyroidism, unspecified type (CMS/HCC) documented in this encounter [facility] HealthcareEvaluation note* Diagnosis Failed back syndrome Other unspecified back disorder documented in this encounter [facility]* Diagnosis Routine general medical examination at health care facility- Primary Routine general medical examination at a health care facility ACP (advance care planning) Other specified counseling Type 2 diabetes mellitus without complication, without long-term current use of insulin (CMS/[facility]) Morbid (severe) obesity due to [...] Diabetes mellitus type 2 with neurological manifestations (CMS/[facility])- Primary Benign essential hypertension (CMS/HCC) Essential hypertension, benign Morbid (severe) obesity due to excess calories (CMS/[facility]) Body mass index (BMI) [...] hyperglycemia, without long-term current use of insulin ([facility]) documented in this encounter [facility]* Diagnosis Nausea- Primary Nausea alone documented in this encounter [facility]* Diagnosis Nausea- Primary Nausea alone Type 2 diabetes mellitus with hyperglycemia, without long-term current use of insulin ([facility]) documented in this encounter [facility]* Diagnosis Type 2 diabetes mellitus with hyperglycemia, with long-term current use of insulin ([facility])- Primary documented in this encounter [facility]* Diagnosis Diabetes mellitus type 2 with neurological manifestations (HCC) Type 2 diabetes mellitus with hyperglycemia, unspecified whether oil heaterman insulin use ([facility]) documented in this encounter [facility] [...] this encounter [facility] HealthcareHistory general Narrative - ReportedNortEncompass Health Rehabilitation [facility] Other History general Narrative - Reported* Type Description Date Medical History HTN Medical KsqprfxVU0Npwlllu HistoryOsteoporosisMedical HistoryNeuropathyMedical HistoryhyperlipedemiaMedical HistoryHot Flashes/SweatsMedical HistorycopdMedical HistoryOSA (obstructive sleep apnea)Surgical HistoryBack surgery x Surgical [id number] Jxoslpipgfvpqeqkestqek6292Auobtdiw History czbzsacahtf9612Pkgeprqy Historycataract surgerySurgical Historyeyes surgery Surgical Historyfacial cosmetic surgerySurgical HistoryHYSTERECTOMYSurgical HistorytonsillectomyHospitalization HistoryHeart Oxtsis3462Xcjsrbpponobisf Historysee above [facility] Other Chief Complaint and Reason for Visit [...] MD Attending Provider Active Kofi Bowers II [facility] ProviderActive Team Status: Active Member Role Status Dates Kofi Bowers II MD Primary Care Provider Active Team Status: Inactive Member Role Status Dates Kofi Bowers II MD Primary Care Provider Active Abdullahi Acosta MDAttjolanta ProviderActiveTeam MemberRelationshipSpecialtyStart DateEnd Date Kofi Bowers MD [address] [place] [address] PCP - GeneralInternal Medicine12/22/22Team MemberRelationshipSpecialtyStart Date End Date Kofi Bowers MD [address] [place] [address] [facility] - [facility]12/22/22 Team Status: Inactive Member Role Status Dates Kofi Bowers II MD Primary Care Provider Active Start: June 29, 2024 End: June 29, 2024Heidi Henrry , REFRIGERATOR CAR ICER ACNP-BCAttending ProviderActiveStart: June 29, 2024 End: June 29, 2024Team MemberRelationshipSpecialtyStart DateEnd Date Kofi Bowers MD [address] [place] [address] PCP - GeneralB[facility] Medical Centernal Medicine12/22/22Team MemberRelationshipSpecialtyStart Date End Date Kofi Bowers MD [address] [place] [address] PCP - GeneralBanner Gateway Medical Centernal Medicine12/22/22Team MemberRelationshipSpecialtyStart Date End Date Kofi Bowers MD [address] [place] [address] PCP - GeneralBanner Gateway Medical Centernal Medicine12/22/22Team MemberRelationshipSpecialtyStart Date End Date Kofi Bowers MD [address] [place] [address] PCP - GeneralInternal Medicine12/22/22am MemberRelationshipSpecialtyStart Date End Date Kofi Bowers MD [address] [place] [address] PCP - GeneralInternal Medicine12/22/22am MemberRelationshipSpecialtyStart Date End Date Kofi Bowers MD [address] [place] [address] PCP - GeneralInternal Medicine12/22/22am MemberRelationshipSpecialtyStart Date End Date Kofi Bowers MD [address] [place] [address] PCP - GeneralInternal Medicine12/22/22am MemberRelationshipSpecialtyStart Date End Date Kofi Bowers MD [address] [place] [address] PCP - GeneralInternal Medicine12/22/22am MemberRelationshipSpecialtyStart Date End Date Kofi Bowers MD [address] [place] [address] PCP - GeneralInternal Medicine12/22/22am MemberRelationshipSpecialtyStart Date End Date Kofi Bowers MD [address] [place] [address] PCP - GeneralInternal Medicine12/22/22am MemberRelationshipSpecialtyStart Date End Date Kofi Bowers MD [address] [place] [address] PCP - GeneralInternal Medicine12/22/22am MemberRelationshipSpecialtyStart Date End Date Kofi Bowers MD [address] [place] [address] PCP - GeneralInternal Medicine12/22/22am MemberRelationshipSpecialtyStart Date End Date Kofi Bowers MD [address] [place] [address] PCP - GeneralInternal Medicine12/22/22am MemberRelationshipSpecialtyStart Date End Date Kofi Bowers MD [address] [place] [address] PCP - GeneralInternal Medicine12/22/22Team MemberRelationshipSpecialtyStart Date End Date Kofi Bowers MD [address] [place] [address] PCP - GeneralInternal Medicine12/22/22Team MemberRelationshipSpecialtyStart Date End Date Kofi Bowers MD [address] [place] [address] PCP - GeneralInternal Medicine12/22/22Team MemberRelationshipSpecialtyStart Date End Date Kofi Bowers MD [address] [place] [address] PCP - GeneralInternal Medicine12/22/22Team MemberRelationshipSpecialtyStart Date End Date Kofi Bowers MD [address] [place] [address] PCP - GeneralInternal Medicine12/22/22 Goals (unrecognized section and content) Goals may be documented in a n alternate sectionNo InformationGoals may be documented in an alternate sectionNo InformationGoals may be documented in an alternate section REASON FOR VISIT (unrecogniz ed section and content) ReasonOnset DateCommentsMed Vibxsc7209/29/2023[facility] CLYDEReasonOnset DateCommentsMed Ywyvay1106/04/2024easonOnset DateCommentsMed Zetzpg6907/02/2024 ReasonOnset DateCommentsMed Uqexkm2904/04/2024easonOnset DateCommentsMed Refill 05/07/2024easonOnset DateCommentsMed Bipvvr5108/02/2024easonCommentsInsomniaPt states she had a bone stimulator placement surgery on 08/13/24 at [facility] and she is actually sleeping better at night.ReasonOnset DateCommentsMed Wwuadf1610/03/2024 ReasonOnset DateCommentsMed Zzvfql8612/03/2024ReasonCommentsNauseaReasonComments Med RefillReasonOnset DateCommentsMed Matzhd9304/29/2025ReasonCommentsMedicare Annual Wellness Visit SubsequentDiscuss plan with medications: last visit pt was advised to stop metformin and trulicity and was started on samples of farxiga 5mg -- need to discuss plan going forward with meds-- sugars average 130-140 ReasonCommentsBack Pain INFORMATION SOURCE (unrecogn ized section and content) DATE CREATED AUTHOR 10/19/2022 [facility] DATE CREATED AUTHOR AUTHOR'S ORGANIZ ATION 01/27/2023 [facility] DATE CREATED AUTHOR AUTHOR'S ORGANIZ ATION 09/23/2023 [facility] DATE CREATED AUTHOR AUTHOR'S ORGANIZ ATION 03/20/2024 [facility] DATE CREATED AUTHOR AUTHOR'S ORGANIZ ATION 03/17/2025 [facility] DATE CREATED AUTHOR AUTHOR'S ORGANIZ ATION 04/22/2025 [facility] DATE CREATED AUTHOR AUTHOR'S ORGANIZ ATION 06/18/2025 [facility] EPIC FOR RECORDS [...] BE BASED ON THE PRIMARY CLINICAL RECORDS. [facility] HospitalRe[facility]Force [facility]. provides no warranty or guarantee of the accuracy or completeness of information in this document.
--- NOTE | 2025-08-14 09:36 | PM.CN ---
Consult Note: HPI Data of Consult Patient: known to practice within the last 3 years Consult date: 08/14/25 Requesting Physician: Zoila Kenyon NP Primary Care Provider: BELEN ZALDIVAR Consult Narrative Reason for consult: low back pain Narrative: 80yof who presents for assessment. notes increasing axial low back pain that is worsened with standing and ambulation. imaging reviewed, significant for fusion from l3-s1, severe spondylosis at levels above hardware. has continued in a series of provider directed home exercises >6 weeks, without lasting benefit. uses pain medicine as needed. recently underwent bilateral L1-2 L2-3 MBB #1 with >80% improvement in pain and functional ability while anesthetized. preop pain up to 10/10 post op pain 2-3/10 with standing, walking, lifting, twisting. cc:: CC: Zoila Kenyon NP Review of Systems ROS Musculoskeletal Reports: back pain [facility] Medical History Facial trauma (~2017) ?S09.93XA - Unspecified injury of face, initial encounter (ICD-10) Chronic insomnia ?F51.04 - Psychophysiologic insomnia (ICD-10) Low iron ?E61.1 - Iron deficiency (ICD-10) Pneumonia ?J18.9 - Pneumonia, unspecified organism (ICD-10) Restless leg ?G25.81 - Restless legs syndrome (ICD-10) GERD (gastroesophageal reflux disease) ?K21.9 - Gastro-esophageal reflux disease without esophagitis (ICD-10) Activity intolerance ?R68.89 - Other general symptoms and signs (ICD-10) Extremity edema ?R60.0 - Localized edema (ICD-10) Diabetes ?E11.9 - Type 2 diabetes mellitus without complications (ICD-10) Hypothyroidism ?E03.9 - Hypothyroidism, unspecified (ICD-10) Low back pain ?M54.50 - Low back pain, unspecified (ICD-10) Osteoarthritis ?M19.90 - Unspecified osteoarthritis, unspecified site (ICD-10) Diabetes 1.5, managed as type 2 ?E13.9 - Other specified diabetes mellitus without complications (ICD-10) Sleep apnea ?G47.30 - Sleep apnea, unspecified (ICD-10) High cholesterol ?E78.00 - Pure hypercholesterolemia, unspecified (ICD-10) Hypertension ?I10 - Essential (primary) hypertension (ICD-10) Surgical History History of facial surgery (~2017) ?Z98.890 - Other specified postprocedural states (ICD-10) History of colonoscopy ?Z98.890 - Other specified postprocedural states (ICD-10) History of radiofrequency ablation (RFA) of nerve of lumbar spine ?Z98.890 - Other specified postprocedural states (ICD-10) S/P epidural steroid injection ?Z92.241 - Personal history of systemic steroid therapy (ICD-10) Previous back surgery ?Z98.890 - Other specified postprocedural states (ICD-10) History of cholecystectomy ?Z90.49 - Acquired absence of other specified parts of digestive tract (ICD-10) Hx of tonsillectomy ?Z90.89 - Acquired absence of other organs (ICD-10) History of appendectomy ?Z90.49 - Acquired absence of other specified parts of digestive tract (ICD-10) Family History Other Cancer Family history of coronary artery disease Family history of diabetes mellitus Family history of heart disease Family history of hypertension Social History Within the past year, how often did you have a drink containing alcohol: never Score interpretation: A score less than 3 is consistent with normal alcohol consumption. Smoking status: Never smoker Non-prescribed substance use: denies use Highest level of school completed/degree received: Associate degree: occupational, technical, vocational program Little interest or pleasure in doing things: not at all Feeling down, depressed, or hopeless: not at all Meds Home Medications and Allergies Home Medications ?Medication ?Instructions ?Recorded ?Confirmed ?Type acarbose 100 mg tablet 100 mg PO BID 10/19/23 08/12/25 History amlodipine 10 mg tablet 10 mg PO DAILY 10/19/23 08/12/25 History aspirin 81 mg capsule 81 mg PO DAILY 10/19/23 08/12/25 History furosemide 40 mg tablet 40 mg PO DAILY 10/19/23 08/12/25 History liothyronine 25 mcg tablet 12.5 mcg PO BID 10/19/23 08/12/25 History loratadine 10 mg tablet 10 mg PO DAILY PRN allergic 10/19/23 08/12/25 History symptoms losartan 100 1 tab PO DAILY 10/19/23 08/12/25 History mg-hydrochlorothiazide 25 mg tablet omeprazole 20 mg capsule,delayed 20 mg PO DAILY 10/19/23 08/12/25 History release quetiapine 50 mg tablet 50 mg PO DAILY 10/19/23 08/12/25 History tramadol 50 mg tablet 100 mg PO Q12H PRN pain 10/19/23 08/12/25 History acetaminophen 500 mg capsule 1,000 mg PO BID 07/18/24 08/12/25 History ascorbic acid (vitamin C) 500 mg 500 mg PO BID 07/18/24 08/12/25 History capsule calcium 600 mg (as 1 tab PO DAILY 07/18/24 08/12/25 History carbonate)-vitamin D3 5 mcg (200 unit) tablet (Calcium 600 + D(3)) cholecalciferol (vitamin D3) 125 5,000 unit PO DAILY 07/18/24 08/12/25 History mcg (5,000 unit) capsule vitamin B complex (B-Complex 1 tab PO DAILY 07/18/24 08/12/25 History tablet) vitamin E 268 mg (400 unit) capsule 268 mg PO BID 07/18/24 08/12/25 History zonisamide 50 mg capsule 50 mg PO BEDTIME 02/19/25 08/12/25 History empagliflozin 10 mg tablet 10 mg PO DAILY 07/04/25 08/12/25 History (Jardiance) insulin glargine 100 unit/mL 60 unit subcut DAILY 07/04/25 08/12/25 History subcutaneous solution (Lantus U-100 Insulin) baclofen 10 mg tablet 10 mg PO TID PRN muscle spasm #90 07/31/25 08/12/25 Rx tabs Allergies Allergy/AdvReac Type Severity Reaction Status Date / Time iodine Allergy Severe Anaphylaxis Verified 08/12/25 08:23 levofloxacin (From Levaquin) Allergy Rash Verified 08/12/25 08:23 Exam Constitutional Documenting provider has reviewed patient's vital signs: yes Common normals: no apparent distress, oriented x3 and alert General appearance: cooperative HENMT Common normals: normocephalic, hearing grossly normal bilaterally and moist oral mucous membranes Head and scalp: normocephalic Eye Common normals: PERRL Pupil: PERRL Neck & C-Spine Common normals: full ROM General: normal visual inspection Chest Common normals: inspection of chest normal Respiratory Common normals: normal respiratory effort, no retractions and no use of accessory muscles Back & Pelvis Lumbar spine/lower back: ROM limited, pain with ROM and lumbar spinal tenderness Other: strength 5/5 in BLE positive facet loading bilaterally Neuro Common normals: oriented x3 Sensorium/orientation: alert Psych Common normals: mental status grossly normal, thought process normal, cooperative, affect normal, speech normal and activity/motor behavior normal Speech: normal speech Thought process: normal thought process Results Additional Findings Additional findings: If on a controlled substance or opioids, I have checked an [place] report on this patient and there are no aberrancies noted in the prescribing history.??If on a controlled substance or opioid a drug screen was completed and reviewed within the last year, and if there has not been a drug screen completed we ordered one today to monitor higher risk, state monitored pain medication use. As part of providing excellent, safe, comprehensive care, the following was completed at our patient's visit: 1. A medication reconciliation and review to ensure accurate knowledge of current/active medications, including asking our patients to inform us about any [id number] medications or herbal remedies/nutritional supplements/alternative remedies. 2. A review to specifically ensure our patients have had annual screening for screening for depression, screening for tobacco use, and screening for unhealthy alcohol use. For concerning screenings had a discussion with the patient, provided patient education, and recommended follow-up with primary care provider when appropriate. If patient noted with a risk of falling, they received education on strength, gait, and balance training to prevent future risk of falling. Portions of this note may have been carried over from the previous visit and updated as appropriate. Please note this office utilizes paper charting in addition to the electronic medical record. A list of current medications, vitals, and PMH is available there as the clinical staff outside of myself do not have access to [employer] charting during the clinic day operations. As part of providing quality comprehensive care the current medications, vitals, and PMH were reviewed in the paper chart. Assessment and Plan Assessment and Plan (1) Lumbar spondylosis: (2) Myofascial pain: Plan The patient has had over 3 months of moderate to severe low back pain with functional impairment and inadequate response to conservative care including NSAIDS (unless there are contraindication such as concurrent blood thinners), multiple oral or topical pain medications, and home exercise program/physical therapy.? Patient has completed >6 weeks of guided home exercise program and/or formal physical therapy program without relief of their symptoms.? I have reviewed the imaging of the lumbar spine and no red flags were identified.? The Oswestry Disability Index was completed, and the patient scored a 46%.? proceed with bilateral L1-2 L2-3 mbb #2 under fluoroscopy in consideration of RFA for facet mediated pain continue zonegran 50mg HS dc tizanidine from pcp, can change baclofen 5-10mg TID PRN pain/spasms continue HEP as tolerated f/u after procedure advised to f/u with PCP regarding nausea and indigestion
== END 2025-08-14 09:09 | disposition home or self-care (01) ==
LOC: PM 09:08
PROVIDERS: PCP Internal Medicine; Visit Provider Nurse Practitioner
DX: M47.816 Spondylosis without myelopathy or radiculopathy, lumbar region (principal); M79.18 Myalgia, other site
CPT/HCPCS: G0463